=== PATIENT | female | born 1935 | race Caucasian/White ===

== ENCOUNTER → 2020-10-27 09:49 | Outpatient (CLI) | payer MEDICARE, OTHER, SELFPAY ==
--- NOTE | 2020-10-27 09:55 | RAD_ITS ---
STUDY: AIR-CONTRAST UPPER GI SERIES. REASON FOR EXAM: Female, 85 years old. DYSPHAGIA FLUOROSCOPY TIME (if supplied): ( 55 seconds ) minutes/seconds. 10 images were obtained. TECHNIQUE: The patient ingested barium. Multiple images of the esophagus, stomach and duodenum were obtained. COMPARISON: None. FINDINGS: The esophagus is unremarkable. There is no evidence of obstruction. No evidence of gastroesophageal reflux. No evidence of ulceration. The stomach is unremarkable. No mass lesion is seen. There is no evidence of ulceration. The duodenum is unremarkable. RAD/Upper GI Dual Contrast IMPRESSION: Unremarkable air contrast upper GI series. Electronically Signed: Waylon Samayoa MD at 14:21 EST , Service support ,
== END ==
PROVIDERS: PCP Family Medicine; Referring Provider Nurse Practitioner Adult Health; Visit Provider Nurse Practitioner Adult Health
DX: K21.9 Gastro-esophageal reflux disease without esophagitis (principal); R13.10 Dysphagia, unspecified
CPT/HCPCS: 74246

== ENCOUNTER 2020-11-19 11:16 | Outpatient (RCR) | payer MEDICARE, OTHER, SELFPAY ==
[2016-09-23 13:23] VITALS: BMI 23.2
== END 2020-11-19 23:59 ==
LOC: IMMUN 11:16
PROVIDERS: PCP Family Medicine; Referring Provider Family Medicine; Visit Provider Family Medicine
DX: Z23 Encounter for immunization (principal)
CPT/HCPCS: 0011A; 0012A

== ENCOUNTER 2021-09-18 08:39 | Emergency (ER) | payer MEDICARE, OTHER, SELFPAY ==
[2021-09-18 08:40] VITALS: BP 165/86; PULSE 80; RESP 16; TEMP 36.1; O2SAT 100; BMI 21.1
--- NOTE | 2021-09-18 09:12 | EDS_ITS ---
HPI History of Present Illness Chief Complaint: General Illness Narrative Narrative: 85-year-old female presenting with cough, congestion, low-grade fevers. She feels fatigued. Patient states this has been ongoing for about 3 days. She denies sick contacts. She was vaccinated with Covid during a vaccine and had both shots. This was in November or December. Patient denies any chest pain. Patient simply wants to be tested for COVID-19. She is interested in the monoclonal antibodies. [facility] Medical History HLD (hyperlipidemia) HTN (hypertension) Home Medications famotidine 20 mg PO BID #28 tablet 07/27/16 [Rx Last Taken Unknown] B-complex with vitamin C 1 ea PO DAILY 09/23/16 [History Last Taken Unknown] amlodipine 5 mg PO DAILY 09/23/16 [History Last Taken Unknown] aspirin 81 mg PO DAILY@0800 09/23/16 [History Last Taken Unknown] calcium carbonate-vitamin D3 1 ea PO DAILY 09/23/16 [History Last Taken Unknown] cholestyramine-aspartame [Cholestyramine Light Packet] 4 g PO DAILY 09/23/16 [History Last Taken Unknown] cinnamon bark 500 mg PO DAILY 09/23/16 [History Last Taken Unknown] coenzyme Q10 [Co Q-10] 100 mg PO DAILY 09/23/16 [History Last Taken Unknown] lorazepam 0.25 mg PO DAILY PRN PRN 09/23/16 [History Last Taken Unknown] losartan-hydrochlorothiazide 1 ea PO DAILY 09/23/16 [History Last Taken Unknown] methylsulfonylmethane [MSM] 1,000 mg PO DAILY 09/23/16 [History Last Taken Unknown] pindolol 5 mg PO BID 09/23/16 [History Last Taken Unknown] red yeast rice 1,200 mg PO DAILY 09/23/16 [History Last Taken Unknown] Allergy/AdvReac Type Severity Reaction Status Date / Time Penicillins Allergy Hives Verified 09/18/21 08:43 Zzwdasw-SEZ-StP Reductase Allergy Pain in Verified 09/18/21 08:43 Inhibitor joints [Yhwgirw-Pnk-Map Reductase Inhibitor] glucosamine AdvReac Other Verified 09/18/21 08:43 Social History Smoking Status: Never smoker ROS ROS ED Constitutional Constitutional ED: Reports chills and fever(s) Eyes Eyes: Denies blurry vision or diplopia ENT ENT ED: Denies rhinorrhea or sore throat Cardiovascular Cardiovascular: Denies chest pain or palpitations Respiratory/Chest Respiratory/Chest: Reports cough and dyspnea Gastrointestinal Gastrointestinal: Denies abdominal pain, nausea or vomiting Genitourinary Genitourinary ED: Denies dysuria or hematuria Musculoskeletal Musculoskeletal: Reports myalgias; Denies arthralgias or neck pain Integumentary Denies Abrasions or rash Neurologic Neurologic: Reports headache(s); Denies paresthesias or weakness EXAM Physical Exam Const Vital Signs: 09/18/21 08:40 09/18/21 08:48 09/18/21 11:06 Temperature 96.9 F L Temperature Source Temporal Pulse Rate 80 75 Respiratory Rate 16 17 Respiratory Effort Normal Non-Labored Respiratory Pattern Normal Blood Pressure 165/86 H Blood Pressure Mean 112 Pulse Ox 100 97 Oxygen Delivery Method Room Air Positive well nourished General Appearance ED: NAD; Negative for pallor HEENT Reports moist mucous membranes Negative for trauma Eyes PERRL and EOMs intact bilaterally Chest Wall inspection of chest normal and palpation of chest normal Resp normal respiratory effort and clear to auscultation bilaterally Cardio regular rate and regular rhythm Neuro oriented x3 and CN's II-XII intact bilaterally Sensorium / Orientation: alert Motor Exam: strength 5/5 throughout Psych mental status grossly normal Skin General Skin Exam: Negative for jaundice or pallor MDM MDM MDM Narrative Medical decision making narrative: 85-year-old female presenting with cough, fever, chills, mild dyspnea. Her vital signs are stable and she is afebrile. Her oxygen is 100% on room air. Respiratory 16. Lungs are clear to auscultation. Patient wants to be tested for Covid. I did do a rapid Covid which was negative. Since this is already been 3 days she is outside treatment for influenza orally test her. I will send for Covid PCR. The patient is amenable to being discharged home and will follow up with the test result. I did verify that the patient's information was correct with registration prior to her discharge so she will receive a text. Impression: 1. Viral syndrome Lab Data Labs: Laboratory Results - last 24 hr 09/18/21 09:54 COVID-19 (HAZEL) Not Detected Discharge Plan Triage Chief Complaint: General Illness ED Provider: Hany Costello Dx/Rx/DC Orders Instructions: Coronavirus Disease 2019 (COVID-19): Caring for Yourself or Others, ED Viral Syndrome (Adult) Prescriptions: No Action famotidine 20 MG tablet 20 mg PO BID Qty: 28 RF: 0 amlodipine 5 MG tablet 5 mg PO DAILY RF: 0 aspirin 81 MG tablet 81 mg PO DAILY@0800 RF: 0 losartan-hydrochlorothiazide 1 EACH tablet 1 ea PO DAILY RF: 0 lorazepam 0.5 MG tablet 0.25 mg PO DAILY PRN PRN (Reason: Anxiety) RF: 0 pindolol 5 MG tablet 5 mg PO BID RF: 0 B-complex with vitamin C 1 EACH tablet 1 ea PO DAILY RF: 0 coenzyme Q10 [Co Q-10] 100 MG capsule 100 mg PO DAILY RF: 0 cholestyramine-aspartame [Cholestyramine Light] 4 GM Powd.Pack 4 g PO DAILY RF: 0 methylsulfonylmethane [MSM] 1,000 MG tablet 1,000 mg PO DAILY RF: 0 cinnamon bark 500 MG capsule 500 mg PO DAILY RF: 0 red yeast rice 600 MG capsule 1,200 mg PO DAILY RF: 0 calcium carbonate-vitamin D3 1 EACH tablet 1 ea PO DAILY RF: 0 Primary Care Provider: Vamsi Ryder Referrals: Vamsi Ryder MD [Primary Care Provider] - Disposition Disposition: Home, Self Care Discharge Date/Time: 09/18/21 11:08
[2021-09-18 11:06] VITALS: PULSE 75; RESP 17; O2SAT 97
== END 2021-09-18 11:08 | disposition home or self-care (01) ==
PROVIDERS: Emergency Provider Student in an Organized Health Care Education/Training Program; PCP Family Medicine
DX: B34.9 Viral infection, unspecified (principal); I10 Essential (primary) hypertension; E78.5 Hyperlipidemia, unspecified; Z79.82 Long term (current) use of aspirin; Z79.899 Other long term (current) drug therapy
CPT/HCPCS: 87426; 87635; 99282; U0005; U0003

== ENCOUNTER 2021-10-28 10:33 | Outpatient (CLI) | payer MEDICARE, OTHER, SELFPAY | END 2021-10-28 23:59 | disposition home or self-care (01) | PROVIDERS: PCP Family Medicine; Referring Provider Ophthalmology; Visit Provider Ophthalmology | DX: H04.123 Dry eye syndrome of bilateral lacrimal glands (principal) | CPT/HCPCS: 36415 ==

== ENCOUNTER 2022-02-15 15:25 | Emergency (ER) | payer MEDICARE, OTHER, SELFPAY ==
[2022-02-15 15:26] VITALS: BP 160/76; PULSE 89; RESP 15; TEMP 36.6; O2SAT 98; BMI 23.6
--- NOTE | 2022-02-15 15:33 | EKG12_ITS ---
Test Reason : NEURO Blood Pressure : / mmHG Vent. Rate : 072 BPM Atrial Rate : 078 BPM P-R Int : 000 ms QRS Dur : 128 ms QT Int : 424 ms P-R-T Axes : 000 -34 088 degrees QTc Int : 464 ms Atrial fibrillation Left axis deviation Left bundle branch block Abnormal ECG Confirmed by MAVEIRCK DUNN, MARQUES ([id number]), social media editor TJ KENNEDY ([id number]) on 02/16/2022 8:44:50 AM Referred By: CINTIA Confirmed By:MARQUES TEMPLE MD
--- NOTE | 2022-02-15 15:33 | CT_ITS ---
STUDY: CT BRAIN WITHOUT CONTRAST REASON FOR EXAM: Female, 86 years old. confusion RADIATION DOSAGE (If Supplied By Facility): CTDIvol = ( 44.99 ) mGy, DLP = ( 796.11 ) mGycm TECHNIQUE: Transaxial CT imaging of the brain was performed without administration of intravenous contrast material. Individualized dose optimization techniques were used for this CT. COMPARISON: No relevant priors. FINDINGS: Normal soft tissue structures. Normal calvarium. There is mild cerebral atrophy with widening of the extra-axial spaces and ventricular dilatation. There are areas of decreased attenuation within the white matter tracts of the supratentorial brain, consistent with microvascular disease changes. Normal basal ganglia and thalami. Normal brainstem. Normal cerebellum. There is no intracranial hemorrhage. There are no findings of an acute ischemic infarction. Normal visualized paranasal sinuses. CT/Brain/Head without Contrast IMPRESSION: Chronic involutional changes of the brain. Electronically Signed: Roland Rodney MD at 16:14 EDT ,
--- NOTE | 2022-02-15 15:35 | CT_ITS ---
STUDY: CT CERVICAL SPINE WITHOUT CONTRAST REASON FOR EXAM: Female, 86 years old. pain RADIATION DOSAGE (If Supplied By Facility): CTDIvol = ( 12.00 ) mGy, DLP = ( 261.82 ) mGycm TECHNIQUE: High resolution transaxial imaging was performed without contrast material. Sagittal and coronal images were reconstructed. Individualized dose optimization techniques were used for this CT. COMPARISON: None FINDINGS: Normal craniovertebral junction. There are degenerative changes of the anterior atlantoaxial articulation. Normal odontoid process. Normal cervical lordosis. Normal vertebral bodies and posterior osseous elements. C2-3: Mild bilateral facet hypertrophy. No spinal stenosis or neural foraminal stenosis. C3-4: Moderate bilateral facet hypertrophy with ankylosis of the facet joints. 2 mm of anterolisthesis of C3 on C4. No central spinal stenosis. C4-5: Mild bilateral facet hypertrophy. No spinal stenosis or neural foraminal stenosis. C5-6: Mild broad disc osteophyte complex with bilateral hypertrophy produces mild spinal stenosis and mild bilateral neural foraminal stenosis. C6-7: Mild broad discussed by complex and bilateral vertebral hypertrophy produces mild spinal stenosis and mild bilateral neural foraminal stenosis. C7-T1: Normal endplates. Normal disc height and morphology. Normal central canal and intervertebral neuroforamina. Normal visualized soft tissue structures. CT/Spine Cervical without Contras IMPRESSION: Multilevel degenerative changes, as described above. Electronically Signed: Roland Rodney MD at 16:20 EDT ,
[2022-02-15 15:40] VITALS: BMI 23.6
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
[2022-02-15 15:46] LABS: Bedside Glucose 98 mg/dL (74-106)
[2022-02-15 15:47] LABS: Absolute Lymphocyte Count 1.82 X10^3/uL (0.83-4.51); Absolute Neutrophil Count 4.7 X10^3/uL (2.0-7.7); Basophil# 0.09 X10^3/uL; Basophil% 1.2 % (0-1); Eosinophil# 0.23 X10^3/uL; Hematocrit 41.1 % (37-47); Hemoglobin 13.7 g/dL (12.0-15.0); Lymphocyte # 1.82 X10^3/ul (0.83-4.51); Mean Corp Hgb Conc 33.3 g/dL (32-36); Mean Corpuscular Hgb 31.1 pg (27.0-32.0); Mean Corpuscular Volume 93.2 fL (81-99); Mean Platelet Vol. 10.1 fl (6.2-12.0); Monocyte# 0.69 X10^3/uL; Monocyte% 9.1 % (0-10); NRBC Flagged by Analyzer 0 % (0-5); Neutrophil # 4.74 X10^3/uL (2.7-7.7); Neutrophil % 62.4 % (47-70); Platelet Count 306 K/mm3 (150-450); RBC Distribution Width CV 12.6 % (11.6-14.6); RBC Distribution Width SD 43.4 fl (35.1-43.9); Red Blood Count 4.41 M/mm3 (4.2-5.4); White Blood Count 7.6 K/mm3 (4.4-11.0)
--- NOTE | 2022-02-15 16:05 | RAD_ITS ---
STUDY: X-RAY CHEST REASON FOR EXAM: Female, 86 years old. sob TECHNIQUE: Single AP portable view of the chest. COMPARISON: None. FINDINGS: The lungs are clear and expanded. There is no demonstrated pleural abnormality. Normal size heart. Normal mediastinum and staci. Normal visualized pulmonary arteries. Normal visualized aortic arch and descending thoracic aorta. Normal visualized thoracic spine. Normal visualized ribs, clavicles, and shoulders. There is no demonstrated abnormality of the visualized soft tissue structures of the upper abdomen. RAD/Chest 1 View (Portable) IMPRESSION: Normal x-ray examination of the chest. Electronically Signed: Roland Rodney MD at 16:32 EDT ,
[2022-02-15 16:07] LABS: Anion Gap 7 (5-15); BUN 23 mg/dL (7-18); BUN/Creat Ratio 28.5 RATIO (10-20); Calcium,Total 9.2 mg/dL (8.5-10.1); Chloride 105 mmol/L (98-107); Creatinine, Serum 0.81 mg/dL (0.55-1.02); EST Glomerular Filtration Rate 72 mL/min (>60); Est Glom Filt Rate - Afr Amer 87 mL/min (>60); Estimated Creatinine Clearance 39.01 ml/min; Glucose 104 mg/dL (74-106); Potassium 3.9 mmol/L (3.5-5.1); Sodium Level 138 mmol/L (136-145); Troponin-I HS < 3 pg/mL (3.0-54.0)
[2022-02-15 16:26] VITALS: BP 153/74; PULSE 72; RESP 16; O2SAT 96
--- NOTE | 2022-02-15 16:49 | CT_ITS ---
We are attempting to reach an attending provider to discuss findings. An addendum with communication details will be sent when the communication is complete. STUDY: CTA HEAD AND NECK WITH CONTRAST REASON FOR EXAM: Female, 86 years old. TIA RADIATION DOSAGE (If Supplied By Facility): CTDIvol = ( 21.47 ) mGy, DLP = ( 493.67 ) mGycm TECHNIQUE: CT angiography was performed with a multi-detector CT scanner. Data acquisition was obtained from the skull base through the vertex following intravenous administration of IV 100mL Isovue-370. MIP images were reconstructed from the axial data set. Post-processing of the angiographic images was performed, with multiplanar reformation and 3D reconstruction. Individualized dose optimization techniques were used for this CT. COMPARISON: No relevant priors. FINDINGS: Normal bilateral petrous carotid arteries. There is calcified plaque formation of the right cavernous carotid artery, without a cross-sectional luminal stenosis. There is calcified plaque formation of the left cavernous carotid artery, without a cross-sectional luminal stenosis. Normal right A1 segments of the anterior cerebral artery. Normal left A1 segments of the anterior cerebral artery. Normal intact anterior communicating artery (ACOM). Normal bilateral A2 segments of the anterior cerebral arteries. Abrupt occlusion of the M1 segment of the right middle cerebral artery consistent with an infarct. Oormal left M1 and M2 segments of the middle cerebral arteries, with a normal M1 bifurcation. Normal right posterior communicating artery (PCOM). 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 Normal bilateral vertebral arteries. Normal basilar artery with a normal basilar bifurcation. The visualized bilateral superior cerebellar (SCA) arteries are normal. Normal bilateral P1, P2 and visualized P3 segments of the posterior cerebral arteries. There is no demonstrated aneurysm of the [place]. There is no demonstrated abnormality of the visualized brain. AORTIC ARCH: Normal visualized aortic arch. Calcified plaque in the origin of the left clavian artery without focal stenosis. RIGHT CAROTID ARTERIES: Normal right common carotid artery (CCA). There is moderate atherosclerotic plaque formation with moderate narrowing of the right carotid bulb. There is mild atherosclerotic plaque formation of the origin of the right internal carotid artery with less than 50% cross sectional diameter stenosis. Normal visualized cervical portion of the right internal carotid artery. Normal origin of the right external carotid artery (ECA). LEFT CAROTID ARTERIES: Normal left common carotid artery (CCA). There is mild atherosclerotic plaque formation with minimal narrowing of the left carotid bulb. There is mild atherosclerotic plaque formation of the origin of the left internal carotid artery with less than 50% cross sectional diameter stenosis. Normal visualized cervical portion of the left internal carotid artery. Normal origin of the left external carotid artery (ECA). VERTEBRAL ARTERIES: Normal bilateral vertebral arteries. CT/CTA Head AND Neck W/ Contrast IMPRESSION: 1. 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 2. Mild (20%) stenosis right carotid stenosis. 3. Mild (40%) stenosis left carotid stenosis. 4. Patent vertebral arteries bilaterally. Electronically Signed: Roland Rodney MD at 17:30 EDT ,
[2022-02-15 17:00] VITALS: BP 150/71; PULSE 78; RESP 17; O2SAT 100
[2022-02-15 17:28] LABS: Bacteria 0 SEEN /hpf (None Seen); Mucous, Urine 0 SEEN /hpf (<or=2+); Red Blood Cells-Urine 0 SEEN /hpf (0-5); Squamous Epithelial Cells - UA 0 SEEN /hpf (5-10); White Blood Cells 0 SEEN /hpf (0-5)
[2022-02-15 17:38] LABS: Color, Urine Yellow (Yellow); Glucose, Dipstick Normal (Normal); Ketone-Dipstick Negative (Negative); Leukocyte Esterase-Dipstick Negative /ul (Negative); Nitrite-Dipstick Negative (Negative); Occult Blood-Urine Negative /ul (Negative); Protein-Dipstick Negative (Negative); Urine Bilirubin Dipstick Negative (Negative); Urine Clarity Clear (Clear); Urine Urobilinogen Normal (Normal); Urine pH 6.5 (5.0 - 8.0)
[2022-02-15 18:00] VITALS: BP 147/85; PULSE 62; RESP 18; O2SAT 98
[2022-02-15 18:43] LABS: International Normalized Ratio 1.1; Prothrombin Time (Protime)PT. 13.7 SECONDS (11.7-14.9)
[2022-02-15 18:44] LABS: Partial Thromboplast Time 27.4 Seconds (24.1-36.2)
[2022-02-15] MEDS: HEPARIN/D5w 25,000 UNITS 25,000 UNITS/250 ML IV.SOLN. 8 UNITS CONT INF (18:46)
== END 2022-02-15 19:46 | disposition short-term general hospital (02) ==
PROVIDERS: Emergency Provider Emergency Medicine; PCP Family Medicine; Visit Provider Emergency Medicine
DX: I63.9 Cerebral infarction, unspecified (principal); I48.91 Unspecified atrial fibrillation; I10 Essential (primary) hypertension; F41.9 Anxiety disorder, unspecified; Z79.899 Other long term (current) drug therapy
CPT/HCPCS: 70450; 70496; 70498; 71045; 72125; 80048; 81001; 82962; 84484; 85025; 85610; 85730; 93005; 96365; 99285; Q9967; A4216

== ENCOUNTER 2022-04-05 16:00 | Outpatient (RCR) | payer MEDICARE, OTHER, SELFPAY ==
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
--- NOTE | 2022-03-01 16:33 | HP.OTPEDEV ---
Patient's Visit Information GIA MERRITT is a 86 year old F, referred to Occupational Therapy by cruzito STEELE . Date of Evaluation: Occupational Therapist: Emma Aguilar, SHUNR/Eboni, CHT Assessment/Problems/Goals - Anticipated Interventions Thank you for the opportunity to evaluate your patient. Please let me know if there are questions or concerns regarding this plan of care. Physician Signature: Date:
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
--- NOTE | 2022-04-06 10:48 | HP.SP.DC_ITS ---
ST Discharge Summary - Discharged: Discharge: GIA MERRITT is an 86-year-old female who was seen for initial cognitive-linguistic evaluation at [facility] on 02/27/22 s/p CVA. Pt attended 9 additional consecutive sessions following initial evaluation to target attention, word retrieval, divergent naming, problem solving/reasoning, med and finance management, and executive functioning. Pt making progress in all target areas when provided with extended processing time. Direct education provided re: additional sessions would be warranted to target cont'd cognitive skills with a focus on medication management and organization tasks. Pt politely expressing she would prefer this be her final appt as she is starting additional treatment with chiropracting. Encouraged Pt to return should she notice changes in cognitive function. Pt provided w/home carry over activities to continue targeting complex executive functioning tasks. Pt discharged from speech therapy caseload on this date, 04/06/22. Thank you for allowing me to participate in the care of your Pt. Will reevaluate at Pt?s request following script from physician.
== END 2022-04-05 19:00 | disposition home or self-care (01) ==
LOC: SP 16:00
PROVIDERS: PCP Family Medicine
DX: I63.411 Cerebral infarction due to embolism of right middle cerebral artery (principal); F80.2 Mixed receptive-expressive language disorder
CPT/HCPCS: 97129; 97130; 97162; 97165

== ENCOUNTER → 2022-05-08 | Outpatient (CLI) | payer MEDICARE, OTHER, SELFPAY ==
[2022-05-08 12:23] LABS: Erythrocyte Sedimentation Rate 9 mm/hr (0-30)
[2022-05-08 12:40] LABS: CRP < 2.90 mg/L (0.0-3.0)
[2022-05-08 13:21] LABS: Vitamin B12 549 pg/mL (211-911)
[2022-05-09 14:59] LABS: ANTINUCLEAR ANTIBODIES DIRECT Negative (Negative)
[2022-05-10 14:28] LABS: CCP IgG Antibodies 6 units (0-19)
== END | disposition home or self-care (01) ==
LOC: BIMLAB 09:36
PROVIDERS: PCP Family Medicine; Visit Provider Internal Medicine
DX: R53.83 Other fatigue (principal); M12.9 Arthropathy, unspecified
CPT/HCPCS: 36415; 82607; 85652; 86038; 86140; 86200; 86225; 86235

== ENCOUNTER → 2022-06-08 | Outpatient (CLI) | payer MEDICARE, OTHER, SELFPAY | END | disposition home or self-care (01) | LOC: LABSPEC 09:24 | PROVIDERS: PCP Internal Medicine; Referring Provider Internal Medicine; Visit Provider Internal Medicine | DX: R05.9 Cough, unspecified (principal) | CPT/HCPCS: 87635; U0003; U0005 ==

== ENCOUNTER → 2022-06-22 | Outpatient (CLI) | payer MEDICARE, OTHER, SELFPAY ==
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
== END | disposition home or self-care (01) ==
LOC: CT 15:06
PROVIDERS: PCP Internal Medicine; Visit Provider Internal Medicine
DX: I63.9 Cerebral infarction, unspecified (principal); I65.23 Occlusion and stenosis of bilateral carotid arteries
CPT/HCPCS: 70450

== ENCOUNTER 2022-07-07 08:09 | Emergency (ER) | payer MEDICARE, OTHER, SELFPAY ==
[2022-07-07 08:15] VITALS: BP 140/89; PULSE 93; RESP 18; TEMP 36.6; O2SAT 97; BMI 21.3
[2022-07-07 08:18] VITALS: BP 140/89; PULSE 87; RESP 16; TEMP 36.6; O2SAT 98
--- NOTE | 2022-07-07 08:22 | EKG12_ITS ---
Test Reason : Blood Pressure : / mmHG Vent. Rate : 084 BPM Atrial Rate : 094 BPM P-R Int : 000 ms QRS Dur : 124 ms QT Int : 400 ms P-R-T Axes : 000 -31 106 degrees QTc Int : 472 ms Atrial fibrillation Left axis deviation Left bundle branch block Abnormal ECG Confirmed by CIARA DUNN, TAYLOR ([id number]), deputy editor in chief TJ KENNEDY ([id number]) on 07/10/2022 9:42:59 AM Referred By: RANI Confirmed By:TAYLOR URBINA MD
--- NOTE | 2022-07-07 08:24 | EX.ED.DYSGE1 ---
HPI History of Present Illness Chief Complaint: Dizziness Detail of Chief Complaint: Dizziness then fell at home. Informant: patient Onset/Context/Timing Onset: Today Context: Sudden Onset Timing: Continuous Current Severity: Mild Maximum Severity: Mild Narrative Narrative: 86-year-old female history of stroke, hypertension and A. fib on Xarelto. Said recently she has had some urinary incontinence but denies dysuria or hematuria. No fever. No nausea or vomiting. Today she was in the kitchen and felt her cat. Says she got lightheaded felt flushed and fell to the floor landing on her buttocks. Denies hitting her head. Said she scooted to the door because she had a med alert to unlock the door. And they came to get her and brought her in the emergency department. She denies any head, neck or back pain. No chest pain or abdominal pain. No recent fever or chills. Prior similar symptoms: No Recent Illness/Hospitalization: No PFSH PFSH Medical History Anxiety Arthritis involving multiple sites CVA (cerebral vascular accident) (02/15/22) Essential hypertension GERD (gastroesophageal reflux disease) HLD (hyperlipidemia) Home Medications losartan 100 mg tablet 100 mg PO DAILY 02/15/22 [History Last Taken Unknown] metoprolol tartrate 25 mg tablet 25 mg PO BID 02/21/22 [History Last Taken Unknown] calcium carbonate 600 mg calcium (1,500 mg) tablet 600 mg PO DAILY 02/22/22 [History Last Taken Unknown] cinnamon bark 500 mg capsule 500 mg PO DAILY 02/22/22 [History Last Taken Unknown] coenzyme Q10 100 mg capsule (Co Q-10) 100 mg PO DAILY 02/22/22 [History Last Taken Unknown] magnesium oxide 400 mg (241.3 mg magnesium) tablet 400 mg PO DAILY 02/22/22 [History Last Taken Unknown] niacin 500 mg tablet 500 mg PO QHS 02/22/22 [History Last Taken Unknown] red yeast rice 600 mg tablet 600 mg PO BID 02/22/22 [History Last Taken Unknown] vitamin B complex 1 tab PO DAILY 02/22/22 [History Last Taken Unknown] autologous serum miscellaneous 03/02/22 [History Last Taken Unknown] fluorometholone 0.1 % eye drops,suspension 1 drp ophthalmic (eye) BID PRN Dry Eyes 03/02/22 [History Last Taken Unknown] rivaroxaban 20 mg tablet (Xarelto) 20 mg PO QPM #90 tabs 05/01/22 [Rx Last Taken Unknown] lorazepam 0.5 mg tablet 0.25 mg PO DAILY PRN anxiety #15 tabs 05/04/22 [Rx Last Taken Unknown] psyllium husk (aspartame) 3.4 gram/5.8 gram oral powder (Metamucil [facility] Fiber) 5.8 g PO DAILY #660 grams 07/05/22 [Rx Last Taken Unknown] amlodipine 5 mg tablet 5 mg PO DAILY 07/07/22 [History Last Taken Unknown] hydrochlorothiazide 25 mg tablet 25 mg PO DAILY 07/07/22 [History Last Taken Unknown] pravastatin 10 mg tablet 10 mg PO DAILY 07/07/22 [History Last Taken Unknown] Allergy/AdvReac Type Severity Reaction Status Date / Time clindamycin Allergy Other Verified 07/07/22 08:10 hyoscyamine Allergy Other Verified 07/07/22 08:10 Penicillins Allergy Hives Verified 07/07/22 08:10 Moszpzx-UJD-YbQ Reductase Allergy Pain in Verified 07/07/22 08:10 Inhibitor joints [Ufituev-Mtx-Dzz Reductase Inhibitor] glucosamine AdvReac Other Verified 07/07/22 08:10 Family History Father Diabetes Hyperlipemia Mother Cancer stomach Surgical History Cataract extraction status Social History household members: none current occupational status: retired 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 Review of Systems ROS Unobtainable: Denies due to encephalopathy Constitutional Constitutional ED: Denies chills or fever(s) Eyes Eyes: Denies blurry vision ENT ENT ED: Denies ear pain Cardiovascular Cardiovascular: Denies chest pain Respiratory/Chest Respiratory/Chest: Denies cough Gastrointestinal Gastrointestinal: Denies abdominal pain, diarrhea, melena, nausea or vomiting Genitourinary Genitourinary ED: Reports urinary frequency; Denies dysuria or hematuria Musculoskeletal Musculoskeletal: Denies arthralgias Integumentary Denies abscess Neurologic Neurologic: Denies headache(s) Psychiatric Psychiatric: Denies anxiety Endocrine Endocrinology: Denies cold intolerance Hematologic/Lymphatic Hematologic/Lymphatic: Reports none Allergic/Immunologic Allergic/Immunologic ED: Denies mouth swelling or tongue swelling EXAM Physical Exam Narrative Exam Narrative: 86-year-old female no acute distress. Vital signs stable afebrile. H EENT exam unremarkable atraumatic. Pupils round reactive light. Moist mucous membranes. Neck nontender. Trachea midline. Lungs clear to auscultation bilaterally. Heart irregularly irregular rate about 90 consistent with A. fib. Chest wall nontender. Abdomen soft nontender. Pelvic girdle intact. Moving all 4 extremities. Nontender no deformity. Back nontender no signs of trauma. Neurologically she is awake and alert with no focal motor deficits. Answering questions and following commands. Family at bedside. Const Vital Signs: 07/07/22 08:15 07/07/22 08:18 07/07/22 08:23 Temperature 97.9 F 97.9 F Temperature Source Oral Temporal Pulse Rate 93 87 Respiratory Rate 18 16 Respiratory Effort Normal Non-Labored Respiratory Pattern Normal Blood Pressure 140/89 H 140/89 H Blood Pressure Mean 106 106 Pulse Ox 97 98 Oxygen Delivery Method Room Air Room Air 07/07/22 09:24 Temperature Temperature Source Pulse Rate 77 Respiratory Rate 16 Respiratory Effort Respiratory Pattern Blood Pressure 136/77 H Blood Pressure Mean 96 Pulse Ox 98 Oxygen Delivery Method Room Air Positive well nourished and well developed; Negative for obese, cachectic, contractures or unkempt General Appearance ED: well developed and NAD; Negative for unkempt, cachectic, contractures, cyanotic or diaphoretic Nutritional Appearance: Negative for cachectic or obese HEENT Reports moist mucous membranes; Denies dry mucous membranes Negative for trauma or tenderness Mouth ED: No dry mucous membranes Mouth: No dry mucous membranes Eyes PERRL and EOMs intact bilaterally General Eye ED: Negative for pale conjunctiva or scleral icterus Neck no lymphadenopathy, supple and no JVD General: Negative for tenderness Lymph Lymphatic: Negative for other Chest Wall inspection of chest normal and palpation of chest normal Chest: Negative for other Resp normal respiratory effort and clear to auscultation bilaterally Effort and Inspection: Negative for retractions Auscultation: Negative for rales, rhonchi or wheezes Cardio Negative for regular rate or regular rhythm Rhythm: abnormal rhythm irregularly irregular GI normal to inspection, nondistended, normoactive bowel sounds, non-tender, non-distended and no masses Inspection: Negative for abdominal distention Auscultation: normoactive bowel sounds Palpation: soft; Negative for tender or guarding Back/Spine no CVA tenderness General Back: Negative for CVA tenderness Cervical Spine: Negative for cervical spine tenderness Thoracic Spine / Upper Back: Negative for thoracic spinal tenderness Lumbar Spine / Lower Back: Negative for lumbar spinal tenderness Extremity normal to inspection General Extremety ED: Negative for edema or tenderness General Extremity: Negative for edema Neuro oriented x3 Sensorium / Orientation: alert; Negative for orientation impaired, lethargic or stuporous Motor Exam: strength 5/5 throughout Psych mental status grossly normal Appearance: Negative for unkempt Attitude: No agitated Mood & Affect: Negative for depressed, anxious or tearful Skin no rashes or lesions noted and no wounds Lesions: No lesion noted Rashes: No rashes noted Trauma: Negative for abrasion Wounds: Negative for wounds noted MDM MDM MDM Narrative Medical decision making narrative: 86-year-old female history of prior stroke with chronic A. fib on Xarelto as urinary frequency and incontinence and fell today. Screening labs and urinalysis being obtained along with an x-ray of her pelvis. She did not strike her head. Is nontender without any signs of trauma. Repeat exam patient is doing well. She has been up ambulating to the restroom with the nurse. Her gait is actually well. I went over her test results with her and the family is really nothing to admit her for waiting on the urinalysis. Patient doing well at 11:15 AM will be discharged home. Lab Data Attestation: I reviewed the patient's lab results. Lab results narrative: CBC normal. White count 6.6. H&H 14 and 41. Platelets normal. Electrolytes sodium 131. Potassium 3.4. Gap of 8 normal BUN and creatinine to ten 0.7. Glucose 120. Urinalysis is negative. 2+ bacteria but no white or red cells. No nitrites. Labs: Laboratory Results - last 24 hr 07/07/22 07/07/22 07/07/22 08:35 08:35 10:00 WBC 6.6 RBC 4.51 Hgb 14.0 Hct 41.6 MCV 92.2 MCH 31.0 MCHC 33.7 RDW Std Deviation 40.0 RDW Coeff of [place]ak 11.9 Plt Count 225 MPV 9.6 Immature Gran % (Auto) 0.200 Neut % (Auto) 64.3 Lymph % (Auto) 17.9 L [place] % (Auto) 16.1 H Eos % (Auto) 0.9 Baso % (Auto) 0.6 Absolute Neuts (auto) 4.3 Absolute Lymphs (auto) 1.18 Nucleated RBC % 0 Sodium 131 L Potassium 3.4 L Chloride 94 L Carbon Dioxide 29.0 Anion Gap 8 BUN 10 Creatinine 0.77 Estim Creat Clear Calc 34.64 Est GFR (MDRD) Af Amer 91 Est GFR (MDRD) Non-Af 76 BUN/Creatinine Ratio 13.0 Glucose 120 H Calcium 8.8 Urine Color Yellow Urine Clarity Clear Urine pH 7.0 Ur Specific [place] 1.010 Urine Protein 30 H Urine Glucose (UA) Normal Urine Ketones Negative Urine Occult Blood 25 H Urine Nitrite Negative Urine Bilirubin Negative Urine Urobilinogen Normal Ur Leukocyte Esterase 100 H Urine RBC 0-5 SEEN Urine WBC 0-5 SEEN Ur Squamous Epith Cells 0-5 SEEN Urine Bacteria 2+ Urine Mucus 0 SEEN Radiography Diagnostic Testing: Clinical Impression(s) from Imaging Studies Pelvis X-Ray 07/07/22 08:50 IMPRESSION: Moderate 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 Electronically Signed: Waylon Samayoa MD at 9:07 EDT , Pelvis x-ray, single view, interpreted myself and radiologist shows no acute abnormality. Chronic changes. No fracture. Chronic arthritis. Rhythm Strip Rhythm Strip: A-fib Rate: 84 Ectopy: None EKG Initial EKG: Attestation: I personally reviewed and interpreted this EKG as follows: Interpretation: No Acute Injury Pattern and Atrial Fibrillation Comments: Atrial fibrillation. Rate of 84. Left bundle branch block. No acute signs of ID or ischemia. Discharge Plan Triage Chief Complaint: Dizziness ED Provider: Wilfredo Moyer Dx/Rx/DC Orders Prescriptions: No Action metoprolol tartrate 25 mg tablet 25 mg PO BID niacin 500 mg tablet 500 mg PO QHS coenzyme Q10 [Co Q-10] 100 mg capsule 100 mg PO DAILY vitamin B complex Tablet 1 tab PO DAILY red yeast rice 600 mg tablet 600 mg PO BID Rx Instructions: give with meal/snack cinnamon bark 500 mg capsule 500 mg PO DAILY magnesium oxide 400 mg (241.3 mg magnesium) tablet 400 mg PO DAILY calcium carbonate 600 mg calcium (1,500 mg) tablet 600 mg PO DAILY fluorometholone 0.1 % drops,suspension 1 drp ophthalmic (eye) BID PRN (Reason: Dry Eyes) autologous serum miscellaneous Rx Instructions: 4 times a day in each eye lorazepam 0.5 mg tablet 0.25 mg PO DAILY PRN (Reason: anxiety) Qty: 15 0RF Metamucil [facility] Fiber 3.4 gram/5.8 gram powder 5.8 g PO DAILY Qty: 660 0RF losartan 100 mg tablet 100 mg PO DAILY Label Comments: TAKE 1 TABLET BY MOUTH ONCE DAILY amlodipine 5 mg tablet 5 mg PO DAILY pravastatin 10 mg Tablet 10 mg PO DAILY hydrochlorothiazide 25 mg tablet 25 mg PO DAILY Xarelto 20 mg tablet 20 mg PO QPM Qty: 90 0RF Rx Instructions: must administer with evening meal Primary Care Provider: Deepika Fabian Referrals: Deepika Fabian MD [Primary Care Provider] -
[2022-07-07] MEDS: 0.9% Normal Saline 1,000 ML 250 ML IV (08:41)
[2022-07-07 08:44] LABS: Absolute Lymphocyte Count 1.18 X10^3/uL (0.83-4.51); Absolute Neutrophil Count 4.3 X10^3/uL (2.0-7.7); Basophil# 0.04 X10^3/uL; Basophil% 0.6 % (0-1); Eosinophil# 0.06 X10^3/uL; Eosinophils% 0.9 % (0-5); Hematocrit 41.6 % (37-47); Lymphocyte # 1.18 X10^3/ul (0.83-4.51); Lymphocyte % 17.9 % (19-41); Mean Corp Hgb Conc 33.7 g/dL (32-36); Mean Corpuscular Volume 92.2 fL (81-99); Mean Platelet Vol. 9.6 fl (6.2-12.0); Monocyte# 1.06 X10^3/uL; Monocyte% 16.1 % (0-10); NRBC Flagged by Analyzer 0 % (0-5); Neutrophil # 4.25 X10^3/uL (2.7-7.7); Neutrophil % 64.3 % (47-70); Platelet Count 225 K/mm3 (150-450); RBC Distribution Width CV 11.9 % (11.6-14.6); Red Blood Count 4.51 M/mm3 (4.2-5.4); White Blood Count 6.6 K/mm3 (4.4-11.0)
--- NOTE | 2022-07-07 08:50 | RAD_ITS ---
STUDY: X-RAY - PELVIS REASON FOR EXAM: Female, 86 years old. Pain following a fall. TECHNIQUE: One view of the pelvis was obtained. COMPARISON: None. FINDINGS: Moderate amount of fecal material is seen within the colon. There are multiple calcified phleboliths. Normal bilateral iliac wings, sacroiliac joints and visualized sacrum. Normal visualized bilateral superior and inferior pubic rami. Normal pubic symphysis. Normal ischial tuberosities. Normal visualized right femoral head. There is osteoarthritic spur formation of the right acetabular rim. There is moderate articular joint space narrowing of the right hip. There is a 1.4 cm long corticated bony fragment overlying the greater trochanter of the proximal right femur. This may represent either an old avulsion or calcific bursitis. Normal visualized left femoral head. Normal left acetabulum. There is moderate articular joint space narrowing of the left hip. 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 Electronically Signed: Waylon Samayoa MD at 9:07 EDT ,
[2022-07-07 08:55] LABS: Anion Gap 8 (5-15); BUN 10 mg/dL (7-18); Calcium,Total 8.8 mg/dL (8.5-10.1); Chloride 94 mmol/L (98-107); Creatinine, Serum 0.77 mg/dL (0.55-1.02); EST Glomerular Filtration Rate 76 mL/min (>60); Est Glom Filt Rate - Afr Amer 91 mL/min (>60); Estimated Creatinine Clearance 34.64 ml/min; Glucose 120 mg/dL (74-106); Potassium 3.4 mmol/L (3.5-5.1); Sodium Level 131 mmol/L (136-145)
[2022-07-07 09:24] VITALS: BP 136/77; PULSE 77; RESP 16; O2SAT 98
[2022-07-07 10:09] LABS: Mucous, Urine 0 SEEN /hpf (<or=2+)
[2022-07-07 10:11] LABS: Color, Urine Yellow (Yellow); Glucose, Dipstick Normal (Normal); Ketone-Dipstick Negative (Negative); Leukocyte Esterase-Dipstick 100 /ul (Negative); Nitrite-Dipstick Negative (Negative); Occult Blood-Urine 25 /ul (Negative); Protein-Dipstick 30 mg/dl (Negative); Urine Bilirubin Dipstick Negative (Negative); Urine Clarity Clear (Clear); Urine Urobilinogen Normal (Normal)
[2022-07-07 10:19] LABS: Red Blood Cells-Urine 0-5 SEEN /hpf (0-5); Squamous Epithelial Cells - UA 0-5 SEEN /hpf (5-10); White Blood Cells 0-5 SEEN /hpf (0-5)
[2022-07-07 10:20] LABS: Bacteria 2+ /hpf (None Seen)
[2022-07-07 11:19] VITALS: BP 127/71; PULSE 86; RESP 17; O2SAT 95
== END 2022-07-07 11:32 | disposition home or self-care (01) ==
PROVIDERS: Emergency Provider Emergency Medicine; PCP Internal Medicine; Visit Provider Emergency Medicine
DX: R42 Dizziness and giddiness (principal); I48.20 Chronic atrial fibrillation, unspecified; I10 Essential (primary) hypertension; E78.5 Hyperlipidemia, unspecified; M19.90 Unspecified osteoarthritis, unspecified site; F41.9 Anxiety disorder, unspecified; Z79.01 Long term (current) use of anticoagulants; Z79.899 Other long term (current) drug therapy; Z86.73 Personal history of transient ischemic attack (TIA), and cerebral infarction without residual deficits
CPT/HCPCS: 36415; 72170; 80048; 81001; 85025; 93005; 96360; 96361; 99285; J7030

== ENCOUNTER 2022-11-01 14:17 | Emergency (ER) | payer MEDICARE, OTHER, SELFPAY ==
[2022-11-01 14:19] VITALS: BP 122/68; PULSE 86; RESP 16; TEMP 36.5; O2SAT 95; BMI 19.0
--- NOTE | 2022-11-01 15:08 | EDS_ITS ---
HPI History of Present Illness Chief Complaint: Abn Labs Informant: patient and family Onset/Context/Timing Onset: Weeks (2) Context: Gradual Onset Timing: Continuous Quality: Fatigue Location: Generalized Worsened by: Nothing Relieved by: Nothing Narrative Narrative: Patient presents with hypokalemia that was noticed today. Patient had outpatient labs and was told that she should come to the emergency department because her potassium was 2. Patient states she has been having diarrhea for the past 2 weeks. Patient states it is watery. Patient denies any abdominal pain. Patient denies any nausea or vomiting. Patient states she has been feeling tired over the past couple weeks. Patient denies any fevers or chills. Patient denies any urinary complaints. [facility] Medical History Anxiety Arthritis involving multiple sites CVA (cerebral vascular accident) (02/15/22) Essential hypertension GERD (gastroesophageal reflux disease) HLD (hyperlipidemia) Longstanding persistent atrial fibrillation Home Medications calcium carbonate 600 mg calcium (1,500 mg) tablet 600 mg PO DAILY 02/22/22 [History Last Taken Unknown] cinnamon bark 500 mg capsule 500 mg PO DAILY 02/22/22 [History Last Taken Unknown] coenzyme Q10 100 mg capsule (Co Q-10) 100 mg PO DAILY 02/22/22 [History Last Taken Unknown] magnesium oxide 400 mg (241.3 mg magnesium) tablet 400 mg PO DAILY 02/22/22 [History Last Taken Unknown] niacin 500 mg tablet 500 mg PO QHS 02/22/22 [History Last Taken Unknown] red yeast rice 600 mg tablet 600 mg PO BID 02/22/22 [History Last Taken Unknown] vitamin B complex 1 tab PO DAILY 02/22/22 [History Last Taken Unknown] fluorometholone 0.1 % eye drops,suspension 1 drp ophthalmic (eye) BID PRN Dry Eyes 03/02/22 [History Last Taken Unknown] lorazepam 0.5 mg tablet 0.25 mg PO DAILY PRN anxiety #15 tabs 05/04/22 [Rx Last Taken Unknown] psyllium husk (aspartame) 3.4 gram/5.8 gram oral powder (Metamucil [facility] Fiber) 5.8 g PO DAILY #660 grams 07/05/22 [Rx Last Taken Unknown] mixed vegetables tablet PO 07/12/22 [History Last Taken Unknown] famotidine 20 mg tablet 20 mg PO DAILY PRN 08/23/22 [History Last Taken Unknown] hydrochlorothiazide 25 mg tablet 25 mg PO DAILY #30 tabs 10/03/22 [Rx Last Taken Unknown] losartan 100 mg tablet 100 mg PO DAILY #30 tabs 10/03/22 [Rx Last Taken Unknown] metoprolol tartrate 25 mg tablet 25 mg PO BID #60 tabs 10/03/22 [Rx Last Taken Unknown] potassium chloride 20 mEq tablet,extended release(part/cryst) (Klor-Con M) 20 meq PO DAILY #5 TABLETS 11/01/22 [Rx Last Taken Unknown] rivaroxaban 20 mg tablet (Xarelto) 20 mg PO QPM #90 tabs 11/01/22 [Rx Last Taken Unknown] Allergy/AdvReac Type Severity Reaction Status Date / Time clindamycin Allergy Other Verified 11/01/22 14:24 hyoscyamine Allergy Other Verified 11/01/22 14:24 Penicillins Allergy Hives Verified 11/01/22 14:24 Tudenlf-Ajl-Hit Reductase Allergy Pain in Verified 11/01/22 14:24 Inhibitor joints glucosamine AdvReac Other Verified 11/01/22 14:24 Family History Father Diabetes Hyperlipemia Mother Cancer stomach Surgical History Cataract extraction status Social History household members: none current occupational status: retired 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 pets and animals: Yes pets and animals: cat(s) Smoking Status: Never smoker alcohol intake: current alcohol intake frequency: holidays/special occasions only substance use type: does not use what type of physical activity do you participate in: other details: gardening do you feel safe at home: Yes ROS ROS ED Constitutional Constitutional ED: Denies chills or fever(s) Eyes Eyes: Denies blurry vision or change in vision ENT ENT ED: Denies rhinorrhea or sore throat Cardiovascular Cardiovascular: Denies chest pain or palpitations Respiratory/Chest Respiratory/Chest: Denies cough or dyspnea Gastrointestinal Gastrointestinal: Reports diarrhea; Denies nausea or vomiting Genitourinary Genitourinary ED: Denies dysuria or hematuria Musculoskeletal Musculoskeletal: Reports back pain; Denies neck pain Integumentary Denies abscess or rash Neurologic Neurologic: Denies headache(s) or weakness Allergic/Immunologic Allergic/Immunologic ED: Denies mouth swelling or urticaria EXAM Physical Exam Const Vital Signs: 11/01/22 14:19 Temperature 97.7 F L Temperature Source Temporal Pulse Rate 86 Respiratory Rate 16 Blood Pressure 122/68 H Blood Pressure Mean 86 Pulse Ox 95 Oxygen Delivery Method Room Air Positive well nourished and well developed General Appearance ED: well developed and NAD HEENT Reports moist mucous membranes Neck supple and no JVD Resp normal respiratory effort and clear to auscultation bilaterally Cardio regular rate Rhythm: abnormal rhythm irregularly irregular GI normal to inspection, nondistended, normoactive bowel sounds and non-tender Palpation: soft Extremity normal to inspection General Extremety ED: Negative for edema or tenderness General Extremity: Negative for edema Neuro oriented x3, CN's II-XII intact bilaterally and no sensory deficits noted Sensorium / Orientation: alert Motor Exam: strength 5/5 throughout Psych mental status grossly normal Skin no rashes or lesions noted MDM MDM MDM Narrative Medical decision making narrative: Prior outpatient labs were reviewed. This showed a potassium of 2.4. Patient will be given oral and IV potassium here. Basic metabolic profile will be obtained to assess for electrolyte abnormalities and renal function. We will also obtain serum magnesium level to check for hypomagnesemia as a cause for hypokalemia. CBC will be obtained to check for leukocytosis and anemia. Lab Data Attestation: I reviewed the patient's lab results. Lab results narrative: CBC was reviewed and was within normal limits. Basic metabolic profile was reviewed. Potassium was 2.7. Creatinine was slightly elevated at 1.3 and BUN was 24. Glucose was slightly elevated at 120. Magnesium was normal at 2.3. Labs: Laboratory Results - last 24 hr 11/01/22 11/01/22 15:34 15:34 WBC 6.4 RBC 4.28 Hgb 13.0 Hct 40.2 MCV 93.9 MCH 30.4 MCHC 32.3 RDW Std Deviation 41.5 RDW Coeff of [place] 12.1 Plt Count 392 MPV 9.7 Immature Gran % (Auto) 0.300 Neut % (Auto) 43.8 L Lymph % (Auto) 29.5 [place] % (Auto) 23.8 H Eos % (Auto) 1.7 Baso % (Auto) 0.9 Absolute Neuts (auto) 2.8 Absolute Lymphs (auto) 1.90 Nucleated RBC % 0 Differential Comment SCANNED Sodium 139 Potassium 2.7 L* Chloride 101 Carbon Dioxide 29.0 Anion Gap 9 BUN 24 H Creatinine 1.30 H Estim Creat Clear Calc 23.56 Est GFR (MDRD) Af Amer 50 L Est GFR (MDRD) Non-Af 41 L BUN/Creatinine Ratio 18.5 Glucose 120 H Calcium 8.9 Magnesium 2.3 Treatment and Re-Evaluation Narrative: Patient is feeling better on reevaluation. Patient will be given prescription for oral potassium to take for the next 5 days. Patient was instructed to follow-up with her primary care physician in 5 to 7 days for repeat lab work. Patient was instructed return if worse in any way. Patient and family understood and were agreeable with the plan. All questions were answered. Discharge Plan Triage Chief Complaint: Abn Labs ED Provider: Jin Gibson Dx/Rx/DC Orders Clinical Impression: Acute hypokalemia, Diarrhea Instructions: ED Diarrhea, Unknown Cause, ED Hypokalemia Prescriptions: New potassium chloride [Klor-Con M20] 20 mEq tablet,ER particles/crystals 20 meq PO DAILY Qty: 5 0RF No Action niacin 500 mg tablet 500 mg PO QHS coenzyme Q10 [Co Q-10] 100 mg capsule 100 mg PO DAILY vitamin B complex Tablet 1 tab PO DAILY red yeast rice 600 mg tablet 600 mg PO BID Rx Instructions: give with meal/snack cinnamon bark 500 mg capsule 500 mg PO DAILY magnesium oxide 400 mg (241.3 mg magnesium) tablet 400 mg PO DAILY calcium carbonate 600 mg calcium (1,500 mg) tablet 600 mg PO DAILY fluorometholone 0.1 % drops,suspension 1 drp ophthalmic (eye) BID PRN (Reason: Dry Eyes) lorazepam 0.5 mg tablet 0.25 mg PO DAILY PRN (Reason: anxiety) Qty: 15 0RF Metamucil [facility] Fiber 3.4 gram/5.8 gram powder 5.8 g PO DAILY Qty: 660 0RF mixed vegetables tablet PO famotidine 20 mg tablet 20 mg PO DAILY PRN Xarelto 20 mg tablet 20 mg PO QPM Qty: 90 0RF Rx Instructions: must administer with evening meal hydrochlorothiazide 25 mg tablet 25 mg PO DAILY Qty: 30 3RF losartan 100 mg tablet 100 mg PO DAILY Qty: 30 3RF metoprolol tartrate 25 mg tablet 25 mg PO BID Qty: 60 3RF Primary Care Provider: Deepika Fabian Referrals: Deepika Fabian MD [Primary Care Provider] - 3-5 Days Disposition Disposition: Home, Self Care
[2022-11-01] MEDS: Potassium Chloride Oral Tablet 20 MEQ 40 MEQ PO (15:38)
[2022-11-01] MEDS: Potassium Chloride 10mEq/100mL 10 MEQ/100 ML IV.SOLN. 100 MEQ IV BOLUS ×2 (15:45→16:51)
[2022-11-01 15:48] LABS: Absolute Neutrophil Count 2.8 X10^3/uL (2.0-7.7); Basophil# 0.06 X10^3/uL; Basophil% 0.9 % (0-1); Eosinophil# 0.11 X10^3/uL; Eosinophils% 1.7 % (0-5); Hematocrit 40.2 % (37-47); Lymphocyte % 29.5 % (19-41); Mean Corp Hgb Conc 32.3 g/dL (32-36); Mean Corpuscular Hgb 30.4 pg (27.0-32.0); Mean Corpuscular Volume 93.9 fL (81-99); Mean Platelet Vol. 9.7 fl (6.2-12.0); Monocyte# 1.53 X10^3/uL; Monocyte% 23.8 % (0-10); NRBC Flagged by Analyzer 0 % (0-5); Neutrophil # 2.82 X10^3/uL (2.7-7.7); Neutrophil % 43.8 % (47-70); POSITIVE DIFFERENTIAL YES; Platelet Count 392 K/mm3 (150-450); RBC Distribution Width CV 12.1 % (11.6-14.6); RBC Distribution Width SD 41.5 fl (35.1-43.9); Red Blood Count 4.28 M/mm3 (4.2-5.4); White Blood Count 6.4 K/mm3 (4.4-11.0)
[2022-11-01 15:49] LABS: Differential Indicated SCAN CRITERIA MET
[2022-11-01 16:10] LABS: Differential Comment SCANNED
[2022-11-01 16:23] LABS: Anion Gap 9 (5-15); BUN 24 mg/dL (7-18); BUN/Creat Ratio 18.5 RATIO (10-20); Calcium,Total 8.9 mg/dL (8.5-10.1); Chloride 101 mmol/L (98-107); EST Glomerular Filtration Rate 41 mL/min (>60); Est Glom Filt Rate - Afr Amer 50 mL/min (>60); Estimated Creatinine Clearance 23.56 ml/min; Glucose 120 mg/dL (74-106); Magnesium 2.3 mg/dL (1.6-2.6); Potassium 2.7 mmol/L (3.5-5.1); Sodium Level 139 mmol/L (136-145)
[2022-11-01 17:15] VITALS: BP 117/50; PULSE 86; RESP 18; O2SAT 96
[2022-11-01 18:16] VITALS: BP 117/52; PULSE 81; RESP 20; O2SAT 97
== END 2022-11-01 18:22 | disposition home or self-care (01) ==
PROVIDERS: Emergency Provider Emergency Medicine; PCP Internal Medicine; Visit Provider Emergency Medicine
DX: E87.6 Hypokalemia (principal); I48.11 Longstanding persistent atrial fibrillation; R19.7 Diarrhea, unspecified; E78.5 Hyperlipidemia, unspecified; I10 Essential (primary) hypertension; Z79.899 Other long term (current) drug therapy; Z86.73 Personal history of transient ischemic attack (TIA), and cerebral infarction without residual deficits
CPT/HCPCS: 36415; 80048; 80053; 83735; 83993; 85025; 87329; 87493; 87506; 96365; 96366; 99285; J7040; A4216

== ENCOUNTER → 2022-11-01 | Outpatient (CLI) | payer MEDICARE, OTHER, SELFPAY ==
[2022-11-01 12:16] LABS: Absolute Lymphocyte Count 1.93 X10^3/uL (0.83-4.51); Absolute Neutrophil Count 2.4 X10^3/uL (2.0-7.7); Basophil# 0.06 X10^3/uL; Basophil% 1.1 % (0-1); Eosinophil# 0.08 X10^3/uL; Eosinophils% 1.4 % (0-5); Hematocrit 38.7 % (37-47); Hemoglobin 12.6 g/dL (12.0-15.0); Lymphocyte # 1.93 X10^3/ul (0.83-4.51); Lymphocyte % 34.6 % (19-41); Mean Corp Hgb Conc 32.6 g/dL (32-36); Mean Corpuscular Hgb 30.4 pg (27.0-32.0); Mean Corpuscular Volume 93.3 fL (81-99); Mean Platelet Vol. 10.1 fl (6.2-12.0); Monocyte# 1.14 X10^3/uL; Monocyte% 20.4 % (0-10); NRBC Flagged by Analyzer 0.5 % (0-5); Neutrophil # 2.36 X10^3/uL (2.7-7.7); Neutrophil % 42.3 % (47-70); Platelet Count 423 K/mm3 (150-450); RBC Distribution Width CV 12.1 % (11.6-14.6); RBC Distribution Width SD 41.4 fl (35.1-43.9); Red Blood Count 4.15 M/mm3 (4.2-5.4); White Blood Count 5.6 K/mm3 (4.4-11.0)
[2022-11-01 12:59] LABS: ALB/GLOB Ratio 0.6 RATIO (0.9-2.4); AST(SGOT) 16 U/L (15-37); Alanine Aminotransfer ALT/SGPT 22 U/L (13-56); Albumin, Serum 2.9 g/dL (3.2-5.0); Alkaline Phosphatase 62 U/L (45-117); Anion Gap 7 (5-15); BUN 17 mg/dL (7-18); BUN/Creat Ratio 19.3 RATIO (10-20); Calcium,Total 9.1 mg/dL (8.5-10.1); Chloride 98 mmol/L (98-107); Creatinine, Serum 0.88 mg/dL (0.55-1.02); EST Glomerular Filtration Rate 65 mL/min (>60); Est Glom Filt Rate - Afr Amer 79 mL/min (>60); Globulin 4.5 g/dL (2.2-4.2); Glucose 119 mg/dL (74-106); Magnesium 2.3 mg/dL (1.6-2.6); Potassium 2.4 mmol/L (3.5-5.1); Protein, Total 7.4 g/dL (6.4-8.2); Sodium Level 136 mmol/L (136-145)
[2022-11-02 17:30] LABS: Giardia Lamblia, Stool EIA Negative (Negative)
[2022-11-04 13:25] LABS: Calprotectin, Stool 339 ug/g (0-120)
== END | disposition home or self-care (01) ==
LOC: BIMLAB 09:11
PROVIDERS: PCP Internal Medicine; Referring Provider Internal Medicine; Visit Provider Internal Medicine
DX: R19.7 Diarrhea, unspecified (principal); I48.11 Longstanding persistent atrial fibrillation
CPT/HCPCS: 36415; 80053; 83735; 83993; 85025; 87329; 87493; 87506

== ENCOUNTER 2022-11-04 10:59 | Emergency (ER) | payer MEDICARE, OTHER, SELFPAY ==
[2022-11-04 11:00] VITALS: BP 105/57; PULSE 83; RESP 17; TEMP 36.8; O2SAT 98; BMI 21.7
--- NOTE | 2022-11-04 11:18 | RAD_ITS ---
EXAM: XR RIGHT FOOT COMPLETE, 3 OR MORE VIEWS CLINICAL INDICATION: Right foot pain. TECHNIQUE: Frontal, lateral and oblique views of the right foot. This report was created using [employer] report generation technology. COMPARISON: None. FINDINGS: BONES/JOINTS: Partially threaded metallic screw inside the proximal two thirds of the first metatarsal bone. Pronounced degenerative osteoarthrosis of the MTP joint of the right pigtail. Hypertrophic ossifications behind the first metatarsal head. No acute fracture. No subluxation. Normal alignment. No sclerotic or destructive changes observed. SOFT TISSUES: Unremarkable. No soft tissue swelling or gas. No radiopaque foreign body. RAD/Foot min 3 Views IMPRESSION: 1. No acute findings in the right foot. 2. 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 Electronically Signed: Rex Rivera MD at 12:06 EST ,
--- NOTE | 2022-11-04 11:25 | EX.ED.DYSGE1 ---
HPI History of Present Illness Chief Complaint: Lower Extremity Injury Detail of Chief Complaint: Right foot pain Informant: patient Onset/Context/Timing Onset: Days (3 to 4 days) Context: Gradual Onset Current Severity: Mild Maximum Severity: Moderate Narrative Narrative: Patient presents secondary to right foot pain. She denies any known injury. She states she noticed slight stiffness and pain on Sunday that is progressed throughout the week. Today she is having difficulty walking. She states the pain is across the arch of her foot. She has no known injury. Daughter states that she has been walking on her treadmill quite a bit. [facility] Medical History Anxiety Arthritis involving multiple sites CVA (cerebral vascular accident) (02/15/22) Essential hypertension GERD (gastroesophageal reflux disease) HLD (hyperlipidemia) Longstanding persistent atrial fibrillation Home Medications calcium carbonate 600 mg calcium (1,500 mg) tablet 600 mg PO DAILY 02/22/22 [History Last Taken Unknown] cinnamon bark 500 mg capsule 500 mg PO DAILY 02/22/22 [History Last Taken Unknown] coenzyme Q10 100 mg capsule (Co Q-10) 100 mg PO DAILY 02/22/22 [History Last Taken Unknown] magnesium oxide 400 mg (241.3 mg magnesium) tablet 400 mg PO DAILY 02/22/22 [History Last Taken Unknown] niacin 500 mg tablet 500 mg PO QHS 02/22/22 [History Last Taken Unknown] red yeast rice 600 mg tablet 600 mg PO BID 02/22/22 [History Last Taken Unknown] vitamin B complex 1 tab PO DAILY 02/22/22 [History Last Taken Unknown] fluorometholone 0.1 % eye drops,suspension 1 drp ophthalmic (eye) BID PRN Dry Eyes 03/02/22 [History Last Taken Unknown] lorazepam 0.5 mg tablet 0.25 mg PO DAILY PRN anxiety #15 tabs 05/04/22 [Rx Last Taken Unknown] psyllium husk (aspartame) 3.4 gram/5.8 gram oral powder (Metamucil [facility] Fiber) 5.8 g PO DAILY #660 grams 07/05/22 [Rx Last Taken Unknown] mixed vegetables tablet PO 07/12/22 [History Last Taken Unknown] famotidine 20 mg tablet 20 mg PO DAILY PRN 08/23/22 [History Last Taken Unknown] hydrochlorothiazide 25 mg tablet 25 mg PO DAILY #30 tabs 10/03/22 [Rx Last Taken Unknown] losartan 100 mg tablet 100 mg PO DAILY #30 tabs 10/03/22 [Rx Last Taken Unknown] metoprolol tartrate 25 mg tablet 25 mg PO BID #60 tabs 10/03/22 [Rx Last Taken Unknown] potassium chloride 20 mEq tablet,extended release(part/cryst) (Klor-Con M) 20 meq PO DAILY #5 TABLETS 11/01/22 [Rx Last Taken Unknown] rivaroxaban 20 mg tablet (Xarelto) 20 mg PO QPM #90 tabs 11/01/22 [Rx Last Taken Unknown] prednisone 20 mg tablet 20 mg PO DAILY #4 tabs 11/04/22 [Rx Last Taken Unknown] Allergy/AdvReac Type Severity Reaction Status Date / Time clindamycin Allergy Other Verified 11/04/22 10:59 hyoscyamine Allergy Other Verified 11/04/22 10:59 Penicillins Allergy Hives Verified 11/04/22 10:59 Ghczome-ETV-QdR Reductase Allergy Pain in Verified 11/04/22 10:59 Inhibitor joints [Xnkcmcx-Nuu-Zwd Reductase Inhibitor] glucosamine AdvReac Other Verified 11/04/22 10:59 Family History Father Diabetes Hyperlipemia Mother Cancer stomach Surgical History Cataract extraction status Social History household members: none current occupational status: retired 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 pets and animals: Yes pets and animals: cat(s) Smoking Status: Never smoker alcohol intake: current alcohol intake frequency: holidays/special occasions only substance use type: does not use what type of physical activity do you participate in: other details: gardening do you feel safe at home: Yes ROS ROS ED Constitutional Constitutional ED: Denies chills or fever(s) Eyes Eyes: Denies change in vision or discharge from eye(s) ENT ENT ED: Denies discharge from eye(s), rhinorrhea or sore throat Cardiovascular Cardiovascular: Denies chest pain or palpitations Respiratory/Chest Respiratory/Chest: Denies cough or dyspnea Gastrointestinal Gastrointestinal: Denies abdominal pain, nausea or vomiting Genitourinary Genitourinary ED: Denies dysuria Musculoskeletal Musculoskeletal: Reports extremity pain; Denies back pain Integumentary Denies Abrasions or rash Neurologic Neurologic: Denies headache(s) or weakness Psychiatric Psychiatric: Denies anxiety or depression Allergic/Immunologic Allergic/Immunologic ED: Denies lip swelling or urticaria EXAM Physical Exam Const Vital Signs: 11/04/22 11:00 Temperature 98.2 F Temperature Source Temporal Pulse Rate 83 Respiratory Rate 17 Blood Pressure 105/57 L Blood Pressure Mean 73 Pulse Ox 98 Oxygen Delivery Method Room Air Positive well nourished and well developed General Appearance ED: well developed HEENT Reports moist mucous membranes Eyes EOMs intact bilaterally Chest Wall inspection of chest normal and palpation of chest normal Resp normal respiratory effort and clear to auscultation bilaterally Cardio regular rate and regular rhythm GI normal to inspection, nondistended, normoactive bowel sounds Extremity Extremity Narrative: Patient has reproducible tenderness along the plantar fascia on the plantar surface of her foot. No open wounds or skin changes are noted. She does have pain with dorsiflexion of her toes. Good cap refill and sensation distally. No tenderness at the ankle or calf. Neuro oriented x3 and no sensory deficits noted Motor Exam: strength 5/5 throughout Psych mental status grossly normal Skin no rashes or lesions noted MDM MDM MDM Narrative Medical decision making narrative: Right foot x-rays obtained. Patient given Tylenol for pain. Radiography Diagnostic Testing: Clinical Impression(s) from Imaging Studies Foot X-Ray 11/04/22 11:18 IMPRESSION: 1. No acute findings in the right foot. 2. 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 Electronically Signed: Rex Rivera MD at 12:06 EST , Treatment and Re-Evaluation Narrative: Right foot x-ray per my interpretation reveals no acute fracture. Radiology interpretation is reviewed and agrees. Clinically patient has Planter fasciitis. Ethan wrap is applied to the foot. We discussed appropriate stretching. I will write her a short burst of prednisone, 20 mg tabs that she will take with food only. We discussed risks given her use of anticoagulants and she voices understanding. Discharge Plan Triage Chief Complaint: Lower Extremity Injury ED Provider: Christina Huynh Dx/Rx/DC Orders Clinical Impression: Plantar fasciitis Instructions: ED Plantar Fasciitis Prescriptions: New prednisone 20 mg tablet 20 mg PO DAILY Qty: 4 0RF No Action niacin 500 mg tablet 500 mg PO QHS coenzyme Q10 [Co Q-10] 100 mg capsule 100 mg PO DAILY vitamin B complex Tablet 1 tab PO DAILY red yeast rice 600 mg tablet 600 mg PO BID Rx Instructions: give with meal/snack cinnamon bark 500 mg capsule 500 mg PO DAILY magnesium oxide 400 mg (241.3 mg magnesium) tablet 400 mg PO DAILY calcium carbonate 600 mg calcium (1,500 mg) tablet 600 mg PO DAILY fluorometholone 0.1 % drops,suspension 1 drp ophthalmic (eye) BID PRN (Reason: Dry Eyes) lorazepam 0.5 mg tablet 0.25 mg PO DAILY PRN (Reason: anxiety) Qty: 15 0RF Metamucil [facility] Fiber 3.4 gram/5.8 gram powder 5.8 g PO DAILY Qty: 660 0RF mixed vegetables tablet PO famotidine 20 mg tablet 20 mg PO DAILY PRN Xarelto 20 mg tablet 20 mg PO QPM Qty: 90 0RF Rx Instructions: must administer with evening meal potassium chloride [Klor-Con M20] 20 mEq tablet,ER particles/crystals 20 meq PO DAILY Qty: 5 0RF hydrochlorothiazide 25 mg tablet 25 mg PO DAILY Qty: 30 3RF losartan 100 mg tablet 100 mg PO DAILY Qty: 30 3RF metoprolol tartrate 25 mg tablet 25 mg PO BID Qty: 60 3RF Primary Care Provider: Deepika Fabian Referrals: Deepika Fabian MD [Primary Care Provider] - 1 Week Disposition Disposition: Home, Self Care
[2022-11-04] MEDS: Acetaminophen 500 MG Tablet 1000 MG PO (11:26)
== END 2022-11-04 13:00 | disposition home or self-care (01) ==
PROVIDERS: Emergency Provider Emergency Medicine; PCP Internal Medicine; Visit Provider Emergency Medicine
DX: M72.2 Plantar fascial fibromatosis (principal); Z86.73 Personal history of transient ischemic attack (TIA), and cerebral infarction without residual deficits
CPT/HCPCS: 73630; 99282

== ENCOUNTER 2022-11-10 10:39 | Emergency (ER) | payer MEDICARE, OTHER, SELFPAY ==
[2022-11-10 10:40] VITALS: BP 137/53; PULSE 83; RESP 17; TEMP 36.2; O2SAT 100; BMI 21.7
--- NOTE | 2022-11-10 11:02 | CT_ITS ---
STUDY: CT ABDOMEN AND PELVIS WITH CONTRAST REASON FOR EXAM: Female, 87 years old. 3 week history of diarrhea. Hypertension. RADIATION DOSAGE (If Supplied By Facility): CTDIvol = ( 17.14 ) mGy, DLP = ( 509.42 ) mGycm TECHNIQUE: Transaxial images were obtained from the dome of the diaphragm to the symphysis pubis with oral contrast. Oral and amp; IV Gastrografin and amp; 100mL Isovue-300 was administered. Sagittal and coronal images were reconstructed. Individualized dose optimization techniques were used for this CT. COMPARISON: None. FINDINGS: Minimal increased linear markings at the lung bases suggestive of scarring. Carotid artery calcification. Normal liver. The patient is status post cholecystectomy. Mild degree of central intrahepatic biliary ductal dilatation. Normal spleen. There is evidence of a pancreatic ductal dilatation. The common bile duct is not dilated. Normal bilateral adrenal glands. Normal right kidney. Normal left kidney. Normal visualized stomach. Normal small intestine. A large amount of fecal material is seen in the colon. The appendix is visualized and appears normal. There is diffuse atherosclerotic calcification of the abdominal aorta and its major visceral branches, without a demonstrated aneurysm. Normal inferior vena cava. Normal retroperitoneum. Normal urinary bladder. Normal abdominal wall. There are diffuse degenerative changes of the visualized lumbar spine. Mild degree of loss of height of the superior endplate of the L1 vertebra. Straightening of the normal lumbar lordosis. CT/Abdomen/Pelvis WITH Contrast IMPRESSION: Status post cholecystectomy. Mild degree of the intrahepatic biliary ductal dilatation. Electronically Signed: Waylon Samayoa MD at 13:05 EST ,
--- NOTE | 2022-11-10 11:03 | EX.ED.DYSGE1 ---
HPI History of Present Illness Chief Complaint: Diarrhea Informant: patient and family Onset/Context/Timing Onset: Weeks Narrative Narrative: Patient presents secondary to diarrhea that has been ongoing for the last month. There have been no new medication changes. Patient has had some problems with low potassium and was in last week for an IV potassium infusion. Primary care physician did Giardia and enteric pathogens along with C. difficile that were all negative. Patient was recently seen for plantar fasciitis and put on a short course of prednisone. Family states the diarrhea actually improved while she was on prednisone, but returned once the medication stopped. Primary care physician did not want to start prednisone without having some imaging studies and patient was sent to the ER for labs and CT. Patient has been referred to GI but does not have an appointment until January. She was referred to general surgery but cannot be seen until 20 November. [facility] Medical History Anxiety Arthritis involving multiple sites CVA (cerebral vascular accident) (02/15/22) Essential hypertension GERD (gastroesophageal reflux disease) HLD (hyperlipidemia) Longstanding persistent atrial fibrillation Home Medications calcium carbonate 600 mg calcium (1,500 mg) tablet 600 mg PO DAILY 02/22/22 [History Last Taken Unknown] cinnamon bark 500 mg capsule 500 mg PO DAILY 02/22/22 [History Last Taken Unknown] coenzyme Q10 100 mg capsule (Co Q-10) 100 mg PO DAILY 02/22/22 [History Last Taken Unknown] magnesium oxide 400 mg (241.3 mg magnesium) tablet 400 mg PO DAILY 02/22/22 [History Last Taken Unknown] niacin 500 mg tablet 500 mg PO QHS 02/22/22 [History Last Taken Unknown] red yeast rice 600 mg tablet 600 mg PO BID 02/22/22 [History Last Taken Unknown] vitamin B complex 1 tab PO DAILY 02/22/22 [History Last Taken Unknown] fluorometholone 0.1 % eye drops,suspension 1 drp ophthalmic (eye) BID PRN Dry Eyes 03/02/22 [History Last Taken Unknown] lorazepam 0.5 mg tablet 0.25 mg PO DAILY PRN anxiety #15 tabs 05/04/22 [Rx Last Taken Unknown] famotidine 20 mg tablet 20 mg PO DAILY PRN GERD 08/23/22 [History Last Taken Unknown] hydrochlorothiazide 25 mg tablet 25 mg PO DAILY #30 tabs 10/03/22 [Rx Last Taken Unknown] losartan 100 mg tablet 100 mg PO DAILY #30 tabs 10/03/22 [Rx Last Taken Unknown] metoprolol tartrate 25 mg tablet 25 mg PO BID #60 tabs 10/03/22 [Rx Last Taken Unknown] rivaroxaban 20 mg tablet (Xarelto) 20 mg PO QPM #90 tabs 11/01/22 [Rx Last Taken Unknown] budesonide 6 mg capsule,extended release 6 mg PO DAILY #90 caps 11/10/22 [Rx Last Taken Unknown] omeprazole 20 mg capsule,delayed release 20 mg PO DAILY 8 weeks #56 caps 11/10/22 [Rx Last Taken Unknown] prednisone 10 mg tablet See Rx Instructions .Route .COMPLEX #70 tabs 11/10/22 [Rx Last Taken Unknown] Allergy/AdvReac Type Severity Reaction Status Date / Time clindamycin Allergy Other Verified 11/10/22 10:40 hyoscyamine Allergy Other Verified 11/10/22 10:40 Penicillins Allergy Hives Verified 11/10/22 10:40 Vasgzsg-DRC-XzF Reductase Allergy Pain in Verified 11/10/22 10:40 Inhibitor joints [Zukpxmh-Wbl-Oly Reductase Inhibitor] glucosamine AdvReac Other Verified 11/10/22 10:40 Family History Father Diabetes Hyperlipemia Mother Cancer stomach Surgical History Cataract extraction status Social History household members: none current occupational status: retired 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 pets and animals: Yes pets and animals: cat(s) Smoking Status: Never smoker alcohol intake: current alcohol intake frequency: holidays/special occasions only substance use type: does not use what type of physical activity do you participate in: other details: gardening do you feel safe at home: Yes ROS ROS ED Constitutional Constitutional ED: Denies chills or fever(s) Eyes Eyes: Denies change in vision or discharge from eye(s) ENT ENT ED: Denies discharge from eye(s), rhinorrhea or sore throat Cardiovascular Cardiovascular: Denies chest pain or palpitations Respiratory/Chest Respiratory/Chest: Denies cough or dyspnea Gastrointestinal Gastrointestinal: Reports diarrhea; Denies abdominal pain, nausea or vomiting Genitourinary Genitourinary ED: Denies dysuria Musculoskeletal Musculoskeletal: Denies back pain or extremity pain Integumentary Denies Abrasions or rash Neurologic Neurologic: Denies headache(s) or weakness Psychiatric Psychiatric: Denies anxiety or depression Allergic/Immunologic Allergic/Immunologic ED: Denies lip swelling or urticaria EXAM Physical Exam Const Vital Signs: 11/10/22 10:40 11/10/22 12:39 Temperature 97.1 F L Temperature Source Temporal Pulse Rate 83 79 Respiratory Rate 17 16 Blood Pressure 137/53 H 136/68 H Blood Pressure Mean 81 90 Pulse Ox 100 96 Oxygen Delivery Method Room Air Room Air Positive well nourished and well developed General Appearance ED: well developed HEENT Reports normocephalic and head/scalp atraumatic Eyes PERRL and EOMs intact bilaterally Neck supple Chest Wall inspection of chest normal and palpation of chest normal Resp normal respiratory effort and clear to auscultation bilaterally Cardio regular rate and regular rhythm GI normal to inspection, nondistended, normoactive bowel sounds Palpation: soft Extremity normal to inspection Neuro oriented x3 and no sensory deficits noted Sensorium / Orientation: alert Motor Exam: strength 5/5 throughout Psych mental status grossly normal Skin no rashes or lesions noted MDM MDM MDM Narrative Medical decision making narrative: Lab work obtained to evaluate for anemia, leukocytosis, electrolyte derangement. Urinalysis obtained. CT scan of the abdomen and pelvis with contrast obtained. Lab Data Attestation: I reviewed the patient's lab results. Labs: Laboratory Results - last 24 hr 11/10/22 11/10/22 11/10/22 11:10 11:10 12:14 WBC 10.0 RBC 3.82 L Hgb 11.7 L Hct 36.5 L MCV 95.5 MCH 30.6 MCHC 32.1 RDW Std Deviation 42.5 RDW Coeff of Palak 12.2 Plt Count 443 MPV 9.1 Immature Gran % (Auto) 1.000 H Neut % (Auto) 62.1 Lymph % (Auto) 23.1 Petroleum % (Auto) 11.8 H Eos % (Auto) 1.4 Baso % (Auto) 0.6 Absolute Neuts (auto) 6.2 Absolute Lymphs (auto) 2.31 Nucleated RBC % 0 Sodium 138 Potassium 2.6 L* Chloride 97 L Carbon Dioxide 31.0 Anion Gap 10 BUN 16 Creatinine 0.94 Estim Creat Clear Calc 33.02 Est GFR (MDRD) Af Amer 72 Est GFR (MDRD) Non-Af 60 BUN/Creatinine Ratio 16.9 Glucose 102 Calcium 8.5 Total Bilirubin 0.30 Direct Bilirubin 0.10 AST 15 ALT 23 Alkaline Phosphatase 63 Total Protein 6.8 Albumin 2.4 L Globulin 4.4 H Urine Color Yellow Urine Clarity Clear Urine pH 7.0 Ur Specific [place] 1.005 Urine Protein Negative Urine Glucose (UA) Normal Urine Ketones Negative Urine Occult Blood Negative Urine Nitrite Negative Urine Bilirubin Negative Urine Urobilinogen Normal Ur Leukocyte Esterase 100 H Urine RBC 0 SEEN Urine WBC 0 SEEN Ur Squamous Epith Cells 0-5 SEEN Ur Renal Epithelial Cell 0-5 SEEN Urine Bacteria 0 SEEN Urine Mucus 0 SEEN Radiography Diagnostic Testing: Clinical Impression(s) from Imaging Studies Abdomen/Pelvis CT 11/10/22 11:02 IMPRESSION: Status post cholecystectomy. Mild degree of the intrahepatic biliary ductal dilatation. Electronically Signed: Waylon Samayoa MD at 13:05 EST , Treatment and Re-Evaluation Narrative: CBC reveals normal white count. Hemoglobin is 11.7. Chemistry studies significant for potassium of 2.6. LFTs unremarkable. Urinalysis reveals no infection. No ketones noted. CT scan with contrast reveals mild degree of intrahepatic biliary ductal dilatation. No bowel abnormalities noted. Patient was ordered 40 mEq of IV potassium replacement. That is currently being infused. I spoke with Dr. Wood as the patient is currently referred to him and has an appointment in January. He states that the patient may have more of a microscopic colitis since she did seem to have a response to steroids. He would like the patient started on budesonide 6 mg daily. We will start the patient on prednisone 40 mg a day for 1 week, and then taper by 10 mg each week. Patient is to follow with her primary care physician regarding hypokalemia. She is to follow-up with Dr. Wood regarding her diarrhea and abdominal findings. Return instructions given. Discharge Plan Triage Chief Complaint: Diarrhea ED Provider: Christina Huynh Dx/Rx/DC Orders Clinical Impression: Hypokalemia, Diarrhea Instructions: ED Diarrhea, Unknown Cause Prescriptions: New omeprazole 20 mg capsule,delayed release(DR/EC) 20 mg PO DAILY 56 Days Qty: 56 0RF budesonide 6 mg capsule, extended release 6 mg PO DAILY Qty: 90 0RF prednisone 10 mg tablet See Rx Instructions .ROUTE .COMPLEX Qty: 70 0RF Rx Instructions: 40mg daily x 1 week, then 30mg daily x 1 week, then 20mg daily x 1 week, then 10mg daily x 1 week No Action niacin 500 mg tablet 500 mg PO QHS coenzyme Q10 [Co Q-10] 100 mg capsule 100 mg PO DAILY vitamin B complex Tablet 1 tab PO DAILY red yeast rice 600 mg tablet 600 mg PO BID Rx Instructions: give with meal/snack cinnamon bark 500 mg capsule 500 mg PO DAILY magnesium oxide 400 mg (241.3 mg magnesium) tablet 400 mg PO DAILY calcium carbonate 600 mg calcium (1,500 mg) tablet 600 mg PO DAILY fluorometholone 0.1 % drops,suspension 1 drp ophthalmic (eye) BID PRN (Reason: Dry Eyes) lorazepam 0.5 mg tablet 0.25 mg PO DAILY PRN (Reason: anxiety) Qty: 15 0RF famotidine 20 mg tablet 20 mg PO DAILY PRN (Reason: GERD) Xarelto 20 mg tablet 20 mg PO QPM Qty: 90 0RF Rx Instructions: must administer with evening meal hydrochlorothiazide 25 mg tablet 25 mg PO DAILY Qty: 30 3RF losartan 100 mg tablet 100 mg PO DAILY Qty: 30 3RF metoprolol tartrate 25 mg tablet 25 mg PO BID Qty: 60 3RF Primary Care Provider: Deepika Fabian Referrals: Deepika Fabian MD [Primary Care Provider] - 3-5 Days Jb Wood DO [Med Staff - Active Staff] - Keep Constance appointment (Call to see if your appointment can be moved sooner.) Disposition Disposition: Home, Self Care
[2022-11-10 11:23] LABS: Absolute Lymphocyte Count 2.31 X10^3/uL (0.83-4.51); Absolute Neutrophil Count 6.2 X10^3/uL (2.0-7.7); Basophil# 0.06 X10^3/uL; Basophil% 0.6 % (0-1); Eosinophil# 0.14 X10^3/uL; Eosinophils% 1.4 % (0-5); Hematocrit 36.5 % (37-47); Hemoglobin 11.7 g/dL (12.0-15.0); Lymphocyte # 2.31 X10^3/ul (0.83-4.51); Lymphocyte % 23.1 % (19-41); Mean Corp Hgb Conc 32.1 g/dL (32-36); Mean Corpuscular Hgb 30.6 pg (27.0-32.0); Mean Corpuscular Volume 95.5 fL (81-99); Mean Platelet Vol. 9.1 fl (6.2-12.0); Monocyte# 1.18 X10^3/uL; Monocyte% 11.8 % (0-10); NRBC Flagged by Analyzer 0 % (0-5); Neutrophil # 6.22 X10^3/uL (2.7-7.7); Neutrophil % 62.1 % (47-70); Platelet Count 443 K/mm3 (150-450); RBC Distribution Width CV 12.2 % (11.6-14.6); RBC Distribution Width SD 42.5 fl (35.1-43.9); Red Blood Count 3.82 M/mm3 (4.2-5.4)
[2022-11-10 11:47] LABS: AST(SGOT) 15 U/L (15-37); Alanine Aminotransfer ALT/SGPT 23 U/L (13-56); Albumin, Serum 2.4 g/dL (3.2-5.0); Alkaline Phosphatase 63 U/L (45-117); Anion Gap 10 (5-15); BUN 16 mg/dL (7-18); BUN/Creat Ratio 16.9 RATIO (10-20); Calcium,Total 8.5 mg/dL (8.5-10.1); Chloride 97 mmol/L (98-107); Creatinine, Serum 0.94 mg/dL (0.55-1.02); EST Glomerular Filtration Rate 60 mL/min (>60); Est Glom Filt Rate - Afr Amer 72 mL/min (>60); Estimated Creatinine Clearance 33.02 ml/min; Globulin 4.4 g/dL (2.2-4.2); Glucose 102 mg/dL (74-106); Potassium 2.6 mmol/L (3.5-5.1); Protein, Total 6.8 g/dL (6.4-8.2); Sodium Level 138 mmol/L (136-145)
[2022-11-10] MEDS: 0.9% Normal Saline 1,000 ML 150 ML IV (11:47)
[2022-11-10 12:18] LABS: Bacteria 0 SEEN /hpf (None Seen); Mucous, Urine 0 SEEN /hpf (<or=2+); Red Blood Cells-Urine 0 SEEN /hpf (0-5); White Blood Cells 0 SEEN /hpf (0-5)
[2022-11-10 12:20] LABS: Color, Urine Yellow (Yellow); Glucose, Dipstick Normal (Normal); Ketone-Dipstick Negative (Negative); Leukocyte Esterase-Dipstick 100 /ul (Negative); Nitrite-Dipstick Negative (Negative); Occult Blood-Urine Negative /ul (Negative); Protein-Dipstick Negative (Negative); Specific Gravity, Urine 1.005 (1.002-1.030); Urine Bilirubin Dipstick Negative (Negative); Urine Clarity Clear (Clear); Urine Urobilinogen Normal (Normal)
[2022-11-10 12:36] LABS: Renal Epithelial Cells 0-5 SEEN /hpf (0-5); Squamous Epithelial Cells - UA 0-5 SEEN /hpf (5-10)
[2022-11-10 12:39] VITALS: BP 136/68; PULSE 79; RESP 16; O2SAT 96
[2022-11-10] MEDS: Potassium Chloride 10mEq/100mL 10 MEQ/100 ML IV.SOLN. 100 MEQ IV BOLUS ×4 (12:55→16:16)
[2022-11-10] MEDS: predniSONE 20 MG Tablet 40 MG PO (15:24)
[2022-11-10] MEDS: Pantoprazole Sodium 20 MG Tablet PO (15:24)
[2022-11-10 15:25] VITALS: BP 139/70; PULSE 92; RESP 21
[2022-11-10] MEDS: Budesonide 3 MG CAPSULE.EC 6 MG PO (16:47)
[2022-11-10 16:48] VITALS: BP 119/68; PULSE 83; RESP 17
== END 2022-11-10 17:35 | disposition home or self-care (01) ==
PROVIDERS: Emergency Provider Emergency Medicine; PCP Internal Medicine; Visit Provider Emergency Medicine
DX: E87.6 Hypokalemia (principal); I48.19 Other persistent atrial fibrillation; R19.7 Diarrhea, unspecified; I10 Essential (primary) hypertension; F41.9 Anxiety disorder, unspecified; K21.9 Gastro-esophageal reflux disease without esophagitis; Z86.73 Personal history of transient ischemic attack (TIA), and cerebral infarction without residual deficits; Z79.899 Other long term (current) drug therapy; Z79.01 Long term (current) use of anticoagulants
CPT/HCPCS: 74177; 80048; 80076; 81001; 85025; 96365; 96366; 99283; J7030; Q9967; A4216

== ENCOUNTER 2022-11-13 14:47 | Outpatient (CLI) | payer MEDICARE, OTHER, SELFPAY ==
[2022-11-13 16:39] LABS: Vitamin D,25 Hydroxy 24.5 ng/mL
[2022-11-13 16:50] LABS: ALB/GLOB Ratio 0.6 RATIO (0.9-2.4); AST(SGOT) 26 U/L (15-37); Alanine Aminotransfer ALT/SGPT 36 U/L (13-56); Albumin, Serum 2.8 g/dL (3.2-5.0); Alkaline Phosphatase 71 U/L (45-117); Anion Gap 9 (5-15); BUN 15 mg/dL (7-18); BUN/Creat Ratio 18.9 RATIO (10-20); Calcium,Total 9.3 mg/dL (8.5-10.1); Chloride 98 mmol/L (98-107); Creatinine, Serum 0.79 mg/dL (0.55-1.02); EST Glomerular Filtration Rate 73 mL/min (>60); Est Glom Filt Rate - Afr Amer 89 mL/min (>60); Globulin 4.7 g/dL (2.2-4.2); Glucose 161 mg/dL (74-106); Protein, Total 7.5 g/dL (6.4-8.2); Sodium Level 137 mmol/L (136-145)
[2022-11-15 15:08] LABS: Endomysial Antibody IgA Negative (Negative)
[2022-11-16 20:04] LABS: Immunoglobulin A 227 mg/dL (64-422); t-Transglutaminase IgA <2 U/mL (0-3)
== END 2022-11-13 23:59 | disposition home or self-care (01) ==
LOC: BIMLAB 14:48
PROVIDERS: PCP Internal Medicine; Referring Provider Internal Medicine; Visit Provider Internal Medicine
DX: R19.7 Diarrhea, unspecified (principal); E87.6 Hypokalemia; D64.9 Anemia, unspecified
CPT/HCPCS: 36415; 80053; 82306; 82784; 83516; 86255

== ENCOUNTER → 2022-12-08 | Outpatient (CLI) | payer MEDICARE, OTHER, SELFPAY ==
[2022-12-08 16:42] LABS: Absolute Neutrophil Count 6.4 X10^3/uL (2.0-7.7); Basophil# 0.05 X10^3/uL; Basophil% 0.6 % (0-1); Eosinophil# 0.03 X10^3/uL; Eosinophils% 0.4 % (0-5); Hematocrit 38.4 % (37-47); Hemoglobin 12.3 g/dL (12.0-15.0); Lymphocyte % 12.4 % (19-41); Mean Corpuscular Hgb 30.6 pg (27.0-32.0); Mean Corpuscular Volume 95.5 fL (81-99); Monocyte# 0.55 X10^3/uL; Monocyte% 6.8 % (0-10); NRBC Flagged by Analyzer 0 % (0-5); Neutrophil # 6.38 X10^3/uL (2.7-7.7); Neutrophil % 79.3 % (47-70); Platelet Count 392 K/mm3 (150-450); RBC Distribution Width CV 13.2 % (11.6-14.6); RBC Distribution Width SD 46.3 fl (35.1-43.9); Red Blood Count 4.02 M/mm3 (4.2-5.4); White Blood Count 8.1 K/mm3 (4.4-11.0)
[2022-12-08 17:20] LABS: ALB/GLOB Ratio 0.7 RATIO (0.9-2.4); AST(SGOT) 12 U/L (15-37); Alanine Aminotransfer ALT/SGPT 21 U/L (13-56); Albumin, Serum 2.9 g/dL (3.2-5.0); Alkaline Phosphatase 65 U/L (45-117); Anion Gap 9 (5-15); BUN 12 mg/dL (7-18); BUN/Creat Ratio 18.8 RATIO (10-20); CRP 3.82 mg/L (0.0-3.0); Calcium,Total 8.8 mg/dL (8.5-10.1); Chloride 96 mmol/L (98-107); Creatinine, Serum 0.64 mg/dL (0.55-1.02); EST Glomerular Filtration Rate 94 mL/min (>60); Est Glom Filt Rate - Afr Amer 114 mL/min (>60); Globulin 3.9 g/dL (2.2-4.2); Glucose 119 mg/dL (74-106); LDH 185 U/L (84-246); Potassium 3.2 mmol/L (3.5-5.1); Protein, Total 6.8 g/dL (6.4-8.2); Sodium Level 135 mmol/L (136-145)
[2022-12-08 18:37] LABS: Erythrocyte Sedimentation Rate 25 mm/hr (0-30)
[2022-12-11 12:08] LABS: Anti-Centromere B Ab <0.2 AI (0.0-0.9); Anti-Chromatin <0.2 AI (0.0-0.9); Anti-Jo <0.2 AI (0.0-0.9); Anti-Scleroderma-70 AB <0.2 AI (0.0-0.9); RNP Ab <0.2 AI (0.0-0.9); SJOGREN'S Anti-SS-A test < 0.2 AI (0.0-0.9); SJOGREN'S Anti-SS-B test < 0.2 AI (0.0-0.9); Smith Ab <0.2 AI (0.0-0.9)
[2022-12-11 15:08] LABS: Endomysial Antibody IgA Negative (Negative)
[2022-12-11 18:50] LABS: Anti-dsDNA Ab <1 IU/mL (0-9)
[2022-12-11 19:02] LABS: Immunoglobulin A 210 mg/dL (64-422); t-Transglutaminase IgA <2 U/mL (0-3)
[2022-12-14 00:07] LABS: Albumin 3.2 g/dL (2.9-4.4); Alpha-1-Globulins 0.3 g/dL (0.0-0.4); Alpha-2-Globulins 1.1 g/dL (0.4-1.0); Cytoplasmic Ab (C-ANCA) <1:20 titer (Neg:<1:20); Gamma Globulin 0.8 g/dL (0.4-1.8); Immunoglobulin A 202 mg/dL (64-422); Immunoglobulin E 19 IU/mL (6-495); Immunoglobulin G 819 mg/dL (586-1602); Immunoglobulin M 71 mg/dL (26-217); PROEL- TOTAL PROTEIN 6.5 g/dL (6.0-8.5)
[2022-12-14 17:20] LABS: Perinuclear Ab (P-ANCA) <1:20 titer (Neg:<1:20)
== END | disposition home or self-care (01) ==
LOC: LAB 14:21
PROVIDERS: PCP Internal Medicine; Visit Provider Internal Medicine Gastroenterology
DX: R19.7 Diarrhea, unspecified (principal); I48.11 Longstanding persistent atrial fibrillation
CPT/HCPCS: 36415; 80053; 82784; 82785; 83516; 83615; 84165; 85025; 85652; 86140; 86225; 86235; 86255; 86256; 86334

== ENCOUNTER → 2022-12-11 | Outpatient (CLI) | payer MEDICARE, OTHER, SELFPAY ==
[2022-12-15 08:28] LABS: Pancreatic Elastase, Fecal 390 (>200)
[2022-12-19 10:09] LABS: Calprotectin, Stool 526 ug/g (0-120); Fats, Neutral Normal (.); Fats, Total Normal (.)
== END | disposition home or self-care (01) ==
LOC: LABSPEC 15:46
PROVIDERS: PCP Internal Medicine; Visit Provider Internal Medicine Gastroenterology
DX: K58.0 Irritable bowel syndrome with diarrhea (principal); R19.7 Diarrhea, unspecified
CPT/HCPCS: 82653; 82705; 83630; 83993; 87493; 87506

== ENCOUNTER 2023-02-08 10:30 | Inpatient (IN) | payer MEDICARE, OTHER, SELFPAY ==
[2023-02-08] VITALS (7 sets, daily range): BP systolic 113–141; BP diastolic 46–64; PULSE 88–104; RESP 14–18; TEMP 36.4–37.1; O2SAT 95–99; BMI 21.4
--- NOTE | 2023-02-08 10:51 | ED.VIS.GI ---
HPI HPI - GI History of Present Illness Chief Complaint: Diarrhea Informant: patient and family Narrative Narrative: History is from patient and daughter. Patient complains of returning diarrhea and increasing pain in her right foot more than the left. The patient started with diarrhea in October. She was seen in the ER. She was started on a prednisone taper and also budesonide tablets which she is still taking. Prednisone was over before her visit with Dr. Wood in early December. Stool studies were sent off but they are not familiar with the results. They have follow-up in March. She states that yesterday she had 1 softer bowel movement and today she had another 1. These were large diarrhea but there is still some structure to the stool. It was not watery diarrhea as it had been. No blood was seen. It was not black. She is not having abdominal pain or fevers. She is not having nausea or vomiting. Although she does not eat a lot she has still been eating and drinking. Patient was also on doxycycline prescribed in 01 January for a skin infection of a mole on her back. The infection is better. Patient has never had C. difficile colitis. The daughter states that her diarrhea had an odor to it but it was not anything that she thought of is outside of normal. Note that she does live alone. Patient also has been having problems with planter fasciitis for months. When she was on prednisone for the diarrhea and this helped the foot pain but its been coming back. The right one is bothering her more than the left. It is getting to the point where she is having trouble walking. She has a history of significant diffuse osteoarthritis. No trauma to the area. No fevers. Its not painful when she is just sitting in bed. [facility] Medical History Abrasion of right upper back excluding scapular region Anxiety Arthritis involving multiple sites Cellulitis of mid back region CVA (cerebral vascular accident) (02/15/22) Essential hypertension GERD (gastroesophageal reflux disease) HLD (hyperlipidemia) Longstanding persistent atrial fibrillation Home Medications calcium carbonate 600 mg calcium (1,500 mg) tablet 600 mg PO DAILY 02/22/22 [History Last Taken Unknown] cinnamon bark 500 mg capsule 500 mg PO DAILY 02/22/22 [History Last Taken Unknown] coenzyme Q10 100 mg capsule (Co Q-10) 100 mg PO DAILY 02/22/22 [History Last Taken Unknown] magnesium oxide 400 mg (241.3 mg magnesium) tablet 400 mg PO DAILY 02/22/22 [History Last Taken Unknown] niacin 500 mg tablet 500 mg PO QHS 02/22/22 [History Last Taken Unknown] red yeast rice 600 mg tablet 600 mg PO BID 02/22/22 [History Last Taken Unknown] vitamin B complex 1 tab PO DAILY 02/22/22 [History Last Taken Unknown] fluorometholone 0.1 % eye drops,suspension 1 drp ophthalmic (eye) BID PRN Dry Eyes 03/02/22 [History Last Taken Unknown] lorazepam 0.5 mg tablet 0.25 mg PO DAILY PRN anxiety #15 tabs 05/04/22 [Rx Last Taken Unknown] famotidine 20 mg tablet 20 mg PO DAILY PRN GERD 08/23/22 [History Last Taken Unknown] hydrochlorothiazide 25 mg tablet 25 mg PO DAILY #30 tabs 10/03/22 [Rx Last Taken Unknown] losartan 100 mg tablet 100 mg PO DAILY #30 tabs 10/03/22 [Rx Last Taken Unknown] metoprolol tartrate 25 mg tablet 25 mg PO BID #60 tabs 10/03/22 [Rx Last Taken Unknown] omeprazole 20 mg capsule,delayed release 20 mg PO DAILY 8 weeks #56 caps 11/10/22 [Rx Last Taken Unknown] prednisone 10 mg tablet See Rx Instructions .Route .COMPLEX #70 tabs 11/10/22 [Rx Last Taken Unknown] budesonide 3 mg capsule,delayed,extended release 6 mg PO DAILY #60 ea 12/13/22 [Rx Last Taken Unknown] doxycycline monohydrate 100 mg capsule 100 mg PO BID #20 caps 01/01/23 [Rx Last Taken Unknown] rivaroxaban 20 mg tablet (Xarelto) 20 mg PO QPM #90 tabs 01/26/23 [Rx Last Taken Unknown] Allergy/AdvReac Type Severity Reaction Status Date / Time clindamycin Allergy Other Verified 02/08/23 10:32 hyoscyamine Allergy Other Verified 02/08/23 10:32 Penicillins Allergy Hives Verified 02/08/23 10:32 Asmijll-FPL-RtC Reductase Allergy Pain in Verified 02/08/23 10:32 Inhibitor joints [Zjqydti-Iwu-Ysu Reductase Inhibitor] glucosamine AdvReac Other Verified 02/08/23 10:32 Family History Father Diabetes Hyperlipemia Mother Cancer stomach Brother Parkinson's disease Surgical History Cataract extraction status Social History household members: none current occupational status: retired 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 [employer] pets and animals: Yes pets and animals: cat(s) Smoking Status: Never smoker alcohol intake: current alcohol intake frequency: holidays/special occasions only substance use type: does not use what type of physical activity do you participate in: other details: gardening do you feel safe at home: Yes ROS ROS ED Constitutional Constitutional ED: Denies fever(s) ENT ENT ED: Denies rhinorrhea Cardiovascular Cardiovascular: Denies chest pain or palpitations Respiratory/Chest Respiratory/Chest: Denies cough or dyspnea Gastrointestinal Gastrointestinal: Reports diarrhea; Denies abdominal pain, nausea or vomiting Musculoskeletal Musculoskeletal: Reports arthralgias; Denies myalgias Integumentary Denies rash Neurologic Neurologic: Denies headache(s) Hematologic/Lymphatic Hematologic/Lymphatic: Reports easy bleeding and easy bruising Allergic/Immunologic Allergic/Immunologic ED: Denies urticaria EXAM Physical Exam Narrative Exam Narrative: CONSTITUTIONAL: Patient is nontoxic in appearance. The patient looks comfortable. HEENT: No notable trauma. Mucous membranes mildly dry. No sinus tenderness. EYES: No conjunctival injection. No icterus. CARDIOVASCULAR: Regular rate. Regular rhythm. No notable murmur. No JVD. RESPIRATORY: No respiratory distress. Breathing is unlabored. No wheezes. GASTROINTESTINAL: Abdomen is flat and not distended. Bowel sounds are normal do not sound increased. No tenderness. No guarding. No rebound. No palpable mass. GENITOURINARY: No tenderness over the bladder. MUSCULOSKELETAL: Atraumatic. No peripheral edema. Patient's right ankle does seem to have a little bit of swelling. But it is not red or warm. I can move it passively without any pain. I do not think this is infected at all. NEUROLOGICAL: Patient is alert and appropriate. No focal deficit noted. Daughter is a better informant for details. SKIN: No noted rashes. No diaphoresis. PSYCHIATRIC: Patient is calm. Mood is appropriate. Const Vital Signs: 02/08/23 10:32 Temperature 98 F Temperature Source Temporal Pulse Rate 104 H Respiratory Rate 14 Blood Pressure 141/64 H Blood Pressure Mean 89 MDM MDM MDM Narrative Medical decision making narrative: Patient CBC shows no marked abnormalities. Electrolytes does show low potassium. She has had this problem off and on. I did replace this orally. She has slightly high BUN to creatinine ratio showing some mild dehydration and she was given some IV fluids. Liver function test showed no marked abnormalities. Urinalysis does not show any convincing signs of infection. My independent interpretation of her 3 view right ankle films show some soft tissue swelling left, osteopenia and mild arthritis. Final reading is similar. My concern with this patient is her overall weakness. She states she has fallen before when she gets diarrhea. She has a cane and a walker but has trouble using and getting around the house even with those. She is on Xarelto. This puts her at higher risk if she falls. Patient states she just feels too weak to go home. I think this is a combination of her age and chronic illness, dehydration and the diarrhea wearing her out, and it is hard for her to walk because of her foot pain. I will start prednisone as she has responded both from her bowel issues and the foot with this medication. It is thought that she may have either lymphocytic colitis or collagenous colitis when I reviewed an outpatient report by gastroenterology. I discussed the case with hospitalist and the patient will be admitted due to the complex and interconnected risks as above. Lab Data Attestation: I reviewed the patient's lab results. Labs: Laboratory Results - last 24 hr 02/08/23 02/08/23 02/08/23 11:00 11:00 12:34 WBC 10.1 RBC 3.85 L Hgb 12.0 Hct 36.9 L MCV 95.8 MCH 31.2 MCHC 32.5 RDW Std Deviation 42.5 RDW Coeff of Palak 12.2 Plt Count 493 H MPV 8.8 Immature Gran % (Auto) 0.300 Neut % (Auto) 70.9 H Lymph % (Auto) 14.4 L [place] % (Auto) 12.7 H Eos % (Auto) 1.0 Baso % (Auto) 0.7 Absolute Neuts (auto) 7.1 Absolute Lymphs (auto) 1.45 Nucleated RBC % 0 Sodium 137 Potassium 2.6 L* Chloride 98 Carbon Dioxide 29.0 Anion Gap 10 BUN 20 H Creatinine 0.93 Estim Creat Clear Calc 31.77 Est GFR (MDRD) Af Amer 74 Est GFR (MDRD) Non-Af 61 BUN/Creatinine Ratio 21.5 H Glucose 125 H Calcium 8.6 Total Bilirubin 0.40 AST 12 L ALT 20 Alkaline Phosphatase 66 Total Protein 6.8 Albumin 2.2 L Globulin 4.6 H Albumin/Globulin Ratio 0.5 L Urine Color Yellow Urine Clarity Clear Urine pH 7.0 Ur Specific [place] 1.010 Urine Protein 30 H Urine Glucose (UA) Normal Urine Ketones 5 H Urine Occult Blood 10 H Urine Nitrite Negative Urine Bilirubin Negative Urine Urobilinogen Normal Ur Leukocyte Esterase 100 H Urine RBC 0 SEEN Urine WBC 5-10 SEEN Ur Squamous Epith Cells 0-5 SEEN Urine Bacteria 0 SEEN Urine Mucus 0 SEEN Radiography Diagnostic Testing: Clinical Impression(s) from Imaging Studies Ankle X-Ray 02/08/23 11:17 IMPRESSION: Soft tissue swelling. Electronically Signed: Waylon Samayoa MD at 11:49 EDT , Management Discussion w/another healthcare provider: Hospitalist Discharge Plan Triage Chief Complaint: Diarrhea ED Provider: Tobi Cedeno Dx/Rx/DC Orders Clinical Impression: Diarrhea, Acute dehydration, Foot pain, right, Inability to walk, Hypokalemia Prescriptions: No Action niacin 500 mg tablet 500 mg PO QHS coenzyme Q10 [Co Q-10] 100 mg capsule 100 mg PO DAILY vitamin B complex Tablet 1 tab PO DAILY red yeast rice 600 mg tablet 600 mg PO BID Rx Instructions: give with meal/snack cinnamon bark 500 mg capsule 500 mg PO DAILY magnesium oxide 400 mg (241.3 mg magnesium) tablet 400 mg PO DAILY calcium carbonate 600 mg calcium (1,500 mg) tablet 600 mg PO DAILY fluorometholone 0.1 % drops,suspension 1 drp ophthalmic (eye) BID PRN (Reason: Dry Eyes) lorazepam 0.5 mg tablet 0.25 mg PO DAILY PRN (Reason: anxiety) Qty: 15 0RF famotidine 20 mg tablet 20 mg PO DAILY PRN (Reason: GERD) doxycycline monohydrate 100 mg capsule 100 mg PO BID Qty: 20 0RF omeprazole 20 mg capsule,delayed release(DR/EC) 20 mg PO DAILY 56 Days Qty: 56 0RF prednisone 10 mg tablet See Rx Instructions .ROUTE .COMPLEX Qty: 70 0RF Rx Instructions: 40mg daily x 1 week, then 30mg daily x 1 week, then 20mg daily x 1 week, then 10mg daily x 1 week hydrochlorothiazide 25 mg tablet 25 mg PO DAILY Qty: 30 3RF losartan 100 mg tablet 100 mg PO DAILY Qty: 30 3RF metoprolol tartrate 25 mg tablet 25 mg PO BID Qty: 60 3RF budesonide 3 mg capsule,delayed,extend.release 6 mg PO DAILY Qty: 60 2RF Xarelto 20 mg tablet 20 mg PO QPM Qty: 90 0RF Rx Instructions: must administer with evening meal Primary Care Provider: Deepika Fabian Referrals: Deepika Fabian MD [Primary Care Provider] - Disposition Disposition: Acute Care Hospital [facility]
[2023-02-08 11:13] LABS: Absolute Lymphocyte Count 1.45 X10^3/uL (0.83-4.51); Absolute Neutrophil Count 7.1 X10^3/uL (2.0-7.7); Basophil# 0.07 X10^3/uL; Basophil% 0.7 % (0-1); Hematocrit 36.9 % (37-47); Lymphocyte # 1.45 X10^3/ul (0.83-4.51); Lymphocyte % 14.4 % (19-41); Mean Corp Hgb Conc 32.5 g/dL (32-36); Mean Corpuscular Hgb 31.2 pg (27.0-32.0); Mean Corpuscular Volume 95.8 fL (81-99); Mean Platelet Vol. 8.8 fl (6.2-12.0); Monocyte# 1.28 X10^3/uL; Monocyte% 12.7 % (0-10); NRBC Flagged by Analyzer 0 % (0-5); Neutrophil # 7.13 X10^3/uL (2.7-7.7); Neutrophil % 70.9 % (47-70); Platelet Count 493 K/mm3 (150-450); RBC Distribution Width CV 12.2 % (11.6-14.6); RBC Distribution Width SD 42.5 fl (35.1-43.9); Red Blood Count 3.85 M/mm3 (4.2-5.4); White Blood Count 10.1 K/mm3 (4.4-11.0)
--- NOTE | 2023-02-08 11:17 | RAD_ITS ---
STUDY: X-RAY - RIGHT ANKLE REASON FOR EXAM: Female, 87 years old. Pain and swelling. No known injury. TECHNIQUE: 3 view(s) of the ankle. COMPARISON: None. FINDINGS: Normal visualized distal tibia and fibula. Normal medial and lateral malleoli. Normal tibiotalar articulation and ankle mortise. Normal visualized talus and calcaneus. The visualized subtalar, talonavicular, calcaneocuboid and tarsal articulations are normal. Soft tissue swelling. RAD/Ankle min 3 Views IMPRESSION: Soft tissue swelling. Electronically Signed: Waylon Samayoa MD at 11:49 EDT ,
[2023-02-08 11:31] LABS: ALB/GLOB Ratio 0.5 RATIO (0.9-2.4); AST(SGOT) 12 U/L (15-37); Alanine Aminotransfer ALT/SGPT 20 U/L (13-56); Albumin, Serum 2.2 g/dL (3.2-5.0); Alkaline Phosphatase 66 U/L (45-117); Anion Gap 10 (5-15); BUN 20 mg/dL (7-18); BUN/Creat Ratio 21.5 RATIO (10-20); Calcium,Total 8.6 mg/dL (8.5-10.1); Chloride 98 mmol/L (98-107); Creatinine, Serum 0.93 mg/dL (0.55-1.02); EST Glomerular Filtration Rate 61 mL/min (>60); Est Glom Filt Rate - Afr Amer 74 mL/min (>60); Estimated Creatinine Clearance 31.77 ml/min; Globulin 4.6 g/dL (2.2-4.2); Glucose 125 mg/dL (74-106); Potassium 2.6 mmol/L (3.5-5.1); Protein, Total 6.8 g/dL (6.4-8.2); Sodium Level 137 mmol/L (136-145)
[2023-02-08] MEDS: Potassium Chloride Oral Tablet 20 MEQ 40 MEQ PO (11:56)
[2023-02-08 12:41] LABS: Bacteria 0 SEEN /hpf (None Seen); Mucous, Urine 0 SEEN /hpf (<or=2+); Red Blood Cells-Urine 0 SEEN /hpf (0-5)
[2023-02-08 12:45] LABS: Color, Urine Yellow (Yellow); Glucose, Dipstick Normal (Normal); Ketone-Dipstick 5 mg/dl (Negative); Leukocyte Esterase-Dipstick 100 /ul (Negative); Nitrite-Dipstick Negative (Negative); Occult Blood-Urine 10 /ul (Negative); Protein-Dipstick 30 mg/dl (Negative); Urine Bilirubin Dipstick Negative (Negative); Urine Clarity Clear (Clear); Urine Urobilinogen Normal (Normal)
--- NOTE | 2023-02-08 12:54 | NURSING ---
DR GER HERNÁNDEZ
[2023-02-08 13:00] LABS: Squamous Epithelial Cells - UA 0-5 SEEN /hpf (5-10); White Blood Cells 5-10 SEEN /hpf (0-5)
--- NOTE | 2023-02-08 13:06 | PCM.HP.STD ---
HPI - General General Date of Admission: 02/08/23 Date of Service: 02/08/23 Chief Complaint: Diarrhea and right ankle pain HPI Narrative GIA MERRITT, is a 87 F with past medical history significant for paroxysmal A-fib with previous CVA, history of chronic diarrhea treated with budesonide who presented with right ankle pain as well as diarrhea. Per patient has history of chronic diarrhea and has been placed on prednisone as well as budesonide. Diarrhea apparently did improve. Patient however did notice recurrence of her diarrhea weeks prior to her admission. She also did have difficulty walking as a result of significant pain and swelling involving the right ankle. Patient was brought to the emergency department by her daughter given her previous history. Work-up in the emergency department demonstrated severe hypokalemia. Imaging studies of the right ankle demonstrated soft tissue swelling no fracture. Patient subsequently admitted to regular nursing floor for further management [facility] Medical History Abrasion of right upper back excluding scapular region Anxiety Arthritis involving multiple sites Cellulitis of mid back region CVA (cerebral vascular accident) (02/15/22) Essential hypertension GERD (gastroesophageal reflux disease) HLD (hyperlipidemia) Longstanding persistent atrial fibrillation Home Medications calcium carbonate 600 mg calcium (1,500 mg) tablet 600 mg PO DAILY 02/22/22 [History Last Taken Unknown] cinnamon bark 500 mg capsule 500 mg PO DAILY 02/22/22 [History Last Taken Unknown] coenzyme Q10 100 mg capsule (Co Q-10) 100 mg PO DAILY 02/22/22 [History Last Taken Unknown] magnesium oxide 400 mg (241.3 mg magnesium) tablet 400 mg PO DAILY 02/22/22 [History Last Taken Unknown] niacin 500 mg tablet 500 mg PO QHS 02/22/22 [History Last Taken Unknown] red yeast rice 600 mg tablet 600 mg PO BID 02/22/22 [History Last Taken Unknown] vitamin B complex 1 tab PO DAILY 02/22/22 [History Last Taken Unknown] fluorometholone 0.1 % eye drops,suspension 1 drp ophthalmic (eye) BID PRN Dry Eyes 03/02/22 [History Last Taken Unknown] lorazepam 0.5 mg tablet 0.25 mg PO DAILY PRN anxiety #15 tabs 05/04/22 [Rx Last Taken Unknown] famotidine 20 mg tablet 20 mg PO DAILY PRN GERD 08/23/22 [History Last Taken Unknown] hydrochlorothiazide 25 mg tablet 25 mg PO DAILY #30 tabs 10/03/22 [Rx Last Taken Unknown] losartan 100 mg tablet 100 mg PO DAILY #30 tabs 10/03/22 [Rx Last Taken Unknown] metoprolol tartrate 25 mg tablet 25 mg PO BID #60 tabs 10/03/22 [Rx Last Taken Unknown] omeprazole 20 mg capsule,delayed release 20 mg PO DAILY 8 weeks #56 caps 11/10/22 [Rx Last Taken Unknown] prednisone 10 mg tablet See Rx Instructions .Route .COMPLEX #70 tabs 11/10/22 [Rx Last Taken Unknown] budesonide 3 mg capsule,delayed,extended release 6 mg PO DAILY #60 ea 12/13/22 [Rx Last Taken Unknown] doxycycline monohydrate 100 mg capsule 100 mg PO BID #20 caps 01/01/23 [Rx Last Taken Unknown] rivaroxaban 20 mg tablet (Xarelto) 20 mg PO QPM #90 tabs 01/26/23 [Rx Last Taken Unknown] Allergy/AdvReac Type Severity Reaction Status Date / Time clindamycin Allergy Other Verified 02/08/23 10:32 hyoscyamine Allergy Other Verified 02/08/23 10:32 Penicillins Allergy Hives Verified 02/08/23 10:32 Kehscfo-NXC-ClQ Reductase Allergy Pain in Verified 02/08/23 10:32 Inhibitor joints [Iwqkocw-Wrq-Siz Reductase Inhibitor] glucosamine AdvReac Other Verified 02/08/23 10:32 Family History Father Diabetes Hyperlipemia Mother Cancer stomach Brother Parkinson's disease Surgical History Cataract extraction status Social History household members: none current occupational status: retired 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 pets and animals: Yes pets and animals: cat(s) Smoking Status: Never smoker alcohol intake: current alcohol intake frequency: holidays/special occasions only substance use type: does not use what type of physical activity do you participate in: other details: gardening do you feel safe at home: Yes ROS ROS Narrative GENERAL: denies fever, chills, night sweats, weight loss, anorexia HEENT: denies headache, sinus congestion, or drainage, dysphagia RESPIRATORY: denies cough, sputum production, shortness of breath, CARDIAC: denies chest pain, palpitations, orthopnea, PND GASTROINTESTINAL: Diarrhea GENITOURINARY: denies dysuria, urgency, frequency, heamaturia EXTREMITY: denies swelling MUSCULOSKELETAL: Right ankle pain and swelling NEUROLOGIC: denies focal numbness, weakness, tingling HEMATOLOGIC: denies easy bruising and/or hemorrhage INTEGUMENT: denies rashes PSYCHIATRIC: denies suicidal or homicidal ideation Vital Signs Vital Signs Vital Signs: 02/08/23 10:32 Temperature 98 F Temperature Source Temporal Pulse Rate 104 H Respiratory Rate 14 Blood Pressure 141/64 H Blood Pressure Mean 89 Weight Weight: 46.6 kg Body Mass Index (BMI) 20.0 Physical Exam Narrative GENERAL: cooperative HEENT: Atraumatic; normocephalic EYES; Anicteric, Normal Conjunctiva NECK; supple, normal thyroid, RESPIRATORY: Diminished to auscultation CARDIOVASCULAR: Regular S1 S2, GI: soft, normoactive bowel sounds, : No Renal angle tenderness; EXTREMITIES: No edema, no clubbing, MUSCULOSKELETAL: Ankle swelling and warm to touch but no erythema NEURO: Awake; no lateralizing signs. SKIN: No Rash PSYCH; Flat affect Results Lab / Micro Data Result Diagrams: 02/08/23 11:00 02/08/23 11:00 Labs: Laboratory Results - last 24 hr 02/08/23 11:00: WBC 10.1, RBC 3.85 L, Hgb 12.0, Hct 36.9 L, MCV 95.8, MCH 31.2, MCHC 32.5, RDW Std Deviation 42.5, RDW Coeff of Palak 12.2, Plt Count 493 H, MPV 8.8, Immature Gran % (Auto) 0.300, Neut % (Auto) 70.9 H, Lymph % (Auto) 14.4 L, [place] % (Auto) 12.7 H, Eos % (Auto) 1.0, Baso % (Auto) 0.7, Absolute Neuts (auto) 7.1, Absolute Lymphs (auto) 1.45, Nucleated RBC % 0 02/08/23 11:00: Sodium 137, Potassium 2.6 L*, Chloride 98, Carbon Dioxide 29.0, Anion Gap 10, BUN 20 H, Creatinine 0.93, Estim Creat Clear Calc 31.77, Est GFR (MDRD) Af Amer 74, Est GFR (MDRD) Non-Af 61, BUN/Creatinine Ratio 21.5 H, Glucose 125 H, Calcium 8.6, Total Bilirubin 0.40, AST 12 L, ALT 20, Alkaline Phosphatase 66, Total Protein 6.8, Albumin 2.2 L, Globulin 4.6 H, Albumin/Globulin Ratio 0.5 L 02/08/23 12:34: Urine Color Yellow, Urine Clarity Clear, Urine pH 7.0, Ur Specific [place] 1.010, Urine Protein 30 H, Urine Glucose (UA) Normal, Urine Ketones 5 H, Urine Occult Blood 10 H, Urine Nitrite Negative, Urine Bilirubin Negative, Urine Urobilinogen Normal, Ur Leukocyte Esterase 100 H, Urine RBC 0 SEEN, Urine WBC 5-10 SEEN, Ur Squamous Epith Cells 0-5 SEEN, Urine Bacteria 0 SEEN, Urine Mucus 0 SEEN Radiology Impression Ankle X-Ray 02/08/23 11:17 IMPRESSION: Soft tissue swelling. Electronically Signed: Waylon Samayoa MD at 11:49 EDT , Assessment & Plan Assessment/Plan (1) Diarrhea: (2) Acute dehydration: (3) Hypokalemia: PLAN: Plan Patient is an 87-year-old lady presenting with diarrhea as well as right ankle swelling 1. Diarrhea ? Patient has some chronicity to her diarrhea has been seen and evaluated by Dr. Wood with GI. 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 Patient has been placed on budesonide plan is to continue 2. Right ankle swelling ? Osteoarthritis versus gout. Imaging studies demonstrated soft tissue swelling. Patient did receive prednisone in the ED plan is to continue as tolerated 3. Paroxysmal A-fib ? Rate controlled on systemic anticoagulation with rivaroxaban plans to continue 4. Severe hypokalemia ? Corrected per protocol repeat labs ordered for monitoring 5. Hypertension - Blood pressure controlled, home medications continued with dose adjustment as needed 6. History of previous right MCA CVA ? With no residual effect 7. Dyslipidemia As per history patient apparently did develop intolerance to statin therapy 8.GERD ? On PPI 9.DVT prophylaxis ?On rivaroxaban Time spent in the patient's overall evaluation,decision-making process, review of diagnostic data, adjustment of management, discussion with other providers, nursing nursing and ancillary staff involved in patient's care documentation, 77 Minutes Advance planning; did discuss with the patient and family regarding advanced directives as well as CODE STATUS. Did explain the various scenarios involved ( FULL CODE, DNR CCA, DNR CCA with no intubation, and DNR CC and what each meant) patient elected to be DNR CCA no intubation. Order was placed. Time spent on discussion 18 minutes. Charges/Coding Visit Charges Inpatient E&M: 87209 Init Hosp L3 Procedures Hospitalists Procedures: 53012 Advncd Care Plan 30 Min
--- NOTE | 2023-02-08 13:20 | NURSING ---
med surg kittoe generalized weakness, diarrhea, inability to ambulate, right foot pain
[2023-02-08 13:56] LABS: Uric Acid 4.5 mg/dL (2.6-6.0)
[2023-02-08] MEDS: Acetaminophen 500 MG Tablet 1000 MG PO ×2 (14:30→21:35)
[2023-02-08] MEDS: KCL 20MEQ in 0.9% NS 20 MEQ/1,000 ML IV.SOLN. 125 MEQ IV ×2 (16:48→22:36)
[2023-02-08] MEDS: Metoprolol Tartrate 25 MG Tablet PO (16:55)
[2023-02-08] MEDS: Rivaroxaban 20 MG Tablet PO (21:34)
[2023-02-08] MEDS: Niacin SA 500 MG Tablet PO (21:35)
--- NOTE | 2023-02-08 22:03 | PCM.HOSP.N ---
Hospitalist Note Patient daughter and patient insistent that she take only 20 mg prednisone only. In the past when attempted 40 mg daily she had mental status changes. Dose decreased to 20 mg daily.
--- NOTE | 2023-02-08 22:06 | NURSING ---
This RN spoke with pt manav Alyson, who informed this RN that in the past Dea had been prescribed 40mg of prednisone for her diarrhea and that it had caused her to become very confused. Subsequently, the dose had been changed to 20mg at that time. Pt daughter Alyson is requesting that 20mg of prednisone be given instead of 40mg. Dr Price updated. Yoly MARCIAL
[2023-02-09] VITALS (7 sets, daily range): BP systolic 118–130; BP diastolic 59–74; PULSE 78–90; RESP 15–18; TEMP 36.4–36.7; O2SAT 96–99
[2023-02-09] MEDS: KCL 20MEQ in 0.9% NS 20 MEQ/1,000 ML IV.SOLN. 125 MEQ IV (05:39)
[2023-02-09] MEDS: Acetaminophen 500 MG Tablet 1000 MG PO ×3 (05:40→20:39)
[2023-02-09 06:59] LABS: Absolute Lymphocyte Count 1.89 X10^3/uL (0.83-4.51); Absolute Neutrophil Count 5.5 X10^3/uL (2.0-7.7); Basophil# 0.06 X10^3/uL; Basophil% 0.7 % (0-1); Eosinophil# 0.16 X10^3/uL; Eosinophils% 1.8 % (0-5); Hematocrit 33.2 % (37-47); Hemoglobin 10.4 g/dL (12.0-15.0); Lymphocyte # 1.89 X10^3/ul (0.83-4.51); Lymphocyte % 21.1 % (19-41); Mean Corp Hgb Conc 31.3 g/dL (32-36); Mean Corpuscular Hgb 30.5 pg (27.0-32.0); Mean Corpuscular Volume 97.4 fL (81-99); Mean Platelet Vol. 9.3 fl (6.2-12.0); Monocyte# 1.29 X10^3/uL; Monocyte% 14.4 % (0-10); NRBC Flagged by Analyzer 0 % (0-5); Neutrophil # 5.54 X10^3/uL (2.7-7.7); Neutrophil % 61.7 % (47-70); Platelet Count 447 K/mm3 (150-450); RBC Distribution Width CV 12.2 % (11.6-14.6); RBC Distribution Width SD 43.8 fl (35.1-43.9); Red Blood Count 3.41 M/mm3 (4.2-5.4)
[2023-02-09 07:37] LABS: Anion Gap 9 (5-15); BUN 12 mg/dL (7-18); BUN/Creat Ratio 18.3 RATIO (10-20); Calcium,Total 8.1 mg/dL (8.5-10.1); Chloride 107 mmol/L (98-107); Creatinine, Serum 0.66 mg/dL (0.55-1.02); EST Glomerular Filtration Rate 91 mL/min (>60); Est Glom Filt Rate - Afr Amer 110 mL/min (>60); Estimated Creatinine Clearance 31.04 ml/min; Glucose 102 mg/dL (74-106); Magnesium 1.9 mg/dL (1.6-2.6); Phosphorus 1.6 mg/dL (2.5-4.9); Potassium 2.9 mmol/L (3.5-5.1); Sodium Level 140 mmol/L (136-145)
--- NOTE | 2023-02-09 07:38 | PCM.PN.HOSP ---
Reason for Visit Reason for Visit: Diagnoses Dehydration (02/08/23) Hypokalemia (02/08/23) Diarrhea, unspecified (02/08/23) Subjective Subjective Patient seen admit to some improvement in her right ankle pain. Frequency of diarrhea also subsided. Requested for PT OT eval Objective Data Objective Data Vital Signs: Vital Signs Temp Pulse Resp BP Pulse Ox O2 Del Method 97.9 F 90 18 118/74 97 Room Air 02/09/23 04:20 02/09/23 04:20 02/09/23 04:20 02/09/23 04:20 02/09/23 04:20 02/09/23 04:20 Oxygen Delivery Method Room Air Weight: 51.4 kg Body Mass Index (BMI) 21.4 Intake & Output: Intake and Output for Last 24 Hours 02/07/23 02/08/23 02/09/23 23:59 23:59 23:59 Intake Total 1645 / 1645 881.25 / 881.25 Balance 1645 / 1645 881.25 / 881.25 Lab / Micro Data Result Diagrams: 02/09/23 06:15 02/09/23 06:15 Labs: Laboratory Results - last 24 hr 02/08/23 11:00: WBC 10.1, RBC 3.85 L, Hgb 12.0, Hct 36.9 L, MCV 95.8, MCH 31.2, MCHC 32.5, RDW Std Deviation 42.5, RDW Coeff of Palak 12.2, Plt Count 493 H, MPV 8.8, Immature Gran % (Auto) 0.300, Neut % (Auto) 70.9 H, Lymph % (Auto) 14.[address] L, [place] % (Auto) 12.7 H, Eos % (Auto) 1.0, Baso % (Auto) 0.7, Absolute Neuts (auto) 7.1, Absolute Lymphs (auto) 1.45, Nucleated RBC % 0 02/08/23 11:00: Sodium 137, Potassium 2.6 L*, Chloride 98, Carbon Dioxide 29.0, Anion Gap 10, BUN 20 H, Creatinine 0.93, Estim Creat Clear Calc 31.77, Est GFR (MDRD) Af Amer 74, Est GFR (MDRD) Non-Af 61, BUN/Creatinine Ratio 21.5 H, Glucose 125 H, Calcium 8.6, Total Bilirubin 0.40, AST 12 L, ALT 20, Alkaline Phosphatase 66, Total Protein 6.8, Albumin 2.2 L, Globulin 4.6 H, Albumin/Globulin Ratio 0.5 L 02/08/23 11:00: Uric Acid 4.5 02/08/23 12:34: Urine Color Yellow, Urine Clarity Clear, Urine pH 7.0, Ur Specific Hooper 1.010, Urine Protein 30 H, Urine Glucose (UA) Normal, Urine Ketones 5 H, Urine Occult Blood 10 H, Urine Nitrite Negative, Urine Bilirubin Negative, Urine Urobilinogen Normal, Ur Leukocyte Esterase 100 H, Urine RBC 0 SEEN, Urine WBC 5-10 SEEN, Ur Squamous Epith Cells 0-5 SEEN, Urine Bacteria 0 SEEN, Urine Mucus 0 SEEN 02/09/23 06:15: WBC 9.0, RBC 3.41 L, Hgb 10.4 L, Hct 33.2 L, MCV 97.4, MCH 30.5, MCHC 31.3 L, RDW Std Deviation 43.8, RDW Coeff of Palak 12.2, Plt Count 447, MPV 9.3, Immature Gran % (Auto) 0.300, Neut % (Auto) 61.7, Lymph % (Auto) 21.1, [place] % (Auto) 14.4 H, Eos % (Auto) 1.8, Baso % (Auto) 0.7, Absolute Neuts (auto) 5.5, Absolute Lymphs (auto) 1.89, Nucleated RBC % 0 02/09/23 06:15: Sodium 140, Potassium 2.9 L, Chloride 107, Carbon Dioxide 24.0, Anion Gap 9, BUN 12, Creatinine 0.66, Estim Creat Clear Calc 31.04, Est GFR (MDRD) Af Amer 110, Est GFR (MDRD) Non-Af 91, BUN/Creatinine Ratio 18.3, Glucose 102, Calcium 8.1 L, Phosphorus 1.6 L, Magnesium 1.9 Micro: Microbiology 02/08/23 16:05 Stool C. difficile DNA Amplification - Final Radiography Diagnostic Testing: Radiology Impression Ankle X-Ray 02/08/23 11:17 IMPRESSION: Soft tissue swelling. Electronically Signed: Waylon Samayoa MD at 11:49 EDT , Physical Exam Narrative GENERAL: cooperative HEENT: Atraumatic; normocephalic EYES; Anicteric, Normal Conjunctiva NECK; supple, normal thyroid, RESPIRATORY: Diminished to auscultation CARDIOVASCULAR: Regular S1 S2, GI: soft, normoactive bowel sounds, : No Renal angle tenderness; EXTREMITIES: No edema, no clubbing, MUSCULOSKELETAL: Swelling involving the right ankle improved NEURO: Awake; no lateralizing signs. SKIN: No Rash PSYCH; Flat affect Assessment & Plan Assessment/Plan (1) Diarrhea: (2) Acute dehydration: (3) Hypokalemia: PLAN: Plan Patient is an 87-year-old lady presenting with diarrhea as well as right ankle swelling 1. Diarrhea ? Patient has some chronicity to her diarrhea has been seen and evaluated by Dr. Wood with GI. 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 Patient has been placed on budesonide plan is to continue ? 02/09/2023; patient responding to treatment 2. Right ankle swelling ? Osteoarthritis versus gout. Imaging studies demonstrated soft tissue swelling. Patient did receive prednisone in the ED plan is to continue as tolerated ? 02/09/2023 patient responded to steroid with improvement in overall pain control 3. Paroxysmal A-fib ? Rate controlled on systemic anticoagulation with rivaroxaban plans to continue 4. Severe hypokalemia ? Corrected per protocol repeat labs ordered for monitoring 5. Hypertension - Blood pressure controlled, home medications continued with dose adjustment as needed 6. History of previous right MCA CVA ? With no residual effect 7. Dyslipidemia As per history patient apparently did develop intolerance to statin therapy 8.GERD ? On PPI 9.DVT prophylaxis ?On rivaroxaban Time spent in the patient's overall evaluation,decision-making process, review of diagnostic data, adjustment of management, discussion with other providers, nursing nursing and ancillary staff involved in patient's care documentation, 37 Minutes Charges/Coding Visit Charges Inpatient E&M: 08898 Subs Hosp L2
[2023-02-09] MEDS: FLUOROMETHOLONE 1 DROP BOTTLE 1 DRP EACH EYE ×2 (08:51→20:40)
[2023-02-09] MEDS: Losartan Potassium 100 MG Tablet PO (08:53)
[2023-02-09] MEDS: predniSONE 20 MG Tablet PO (08:53)
[2023-02-09] MEDS: Metoprolol Tartrate 25 MG Tablet PO ×2 (08:53→20:39)
[2023-02-09] MEDS: Budesonide 3 MG CAPSULE.EC 6 MG PO (08:53)
[2023-02-09] MEDS: Na Biphos/Potassium Phosphate PACKET 1 PACKET PO ×2 (09:03→20:40)
--- NOTE | 2023-02-09 10:20 | CASEMGMT ---
RN CM Face to Face with patient for initial transition planning/care coordination assessment. RN CM introduced self and role at [facility]. Patient lying in bed, alert and oriented. Patient willing to participate in assessment and is able to answer all questions appropriately. Care providers, pharmacy, and demographics verified. Patient wishes to discharge home and interested if HHC if needed, will monitor progress with therapy. Patient states she has no further needs or concerns at this time. CM to follow for discharge planning needs that may arise. PCP: Caren Specialists: MATHEUS Wood Preferred Pharmacy: [facility] Insurance: [employer] Pres[employer] Benefit: yes Living Will/HPOA: yes, daughter Tamie Benitez LNOK: daughters Living Arrangements: Patient lives alone in a single story home with ramp to enter the home. Patient states she is independent at home. Transportation: self, daughter DME/HHC: Patient has shower chair, raised toilet, cane, walker, medical alert, grab bars at home. No previous HHC or SNF. Disposition Plan: Patient to discharge home with family support and follow-up plans in place. Will monitor for HHC. Criss MARINO, RN, CM
--- NOTE | 2023-02-09 14:41 | CASEMGMT ---
RN CM reveiwed threrapy notes, recommending HHC at discharge. RN CM to patient's room to discuss HHC. A list of HHC providers including quality and resource use data and consistent with the patient?s preferred geographical region, medical needs, and insurance network were [facility]. Patient would like RN CM to discuss with daughter Alsyon. RN CM called [facility] to discuss discharge planning. Daughter prefers [facility]. RN CM called [facility] to make referral, awaiting acceptance. CM will continue to follow this patient and plan for a safe discharge.
--- NOTE | 2023-02-09 15:16 | CASEMGMT ---
ANIKET REYES updated by [facility] that they are able to accept the patient with planned start of care for Sunday. ANIKET REYES updated patient regarding C acceptance. Patient had no further questions or concerns at this time.
--- NOTE | 2023-02-09 15:24 | CHAPLAIN ---
Type of Pastoral Visit _x__ Initial Visit ___ Follow-up Visit ___ On-call Visit ___ General Patient Visit ___ Spiritual Assessment ___ Family Conference ___ Bereavement ___ Rapid Response ___ Code Blue ___ Other (describe below) Pastoral Care Referral From _x__ Patient ___ Family ___ Nurse ___ Physician ___ Go Cart Mechanic ___ Brand Development Manager ___ Other (describe below) Sacrament/Intervention _x__ Active listening ___ Anointing ___ Christianity ___ Bereavement ___ Communion _x__ Uma exploration ___ _x__ Life review _x__ Prayer ___ Reconciliation ___ Sacrament of Sick _x__ Supportive presence ___ Wedding ___ Other (describe below) Pastoral Comments patient is welcoming and is eager to talk; pt speaks of her baptism and life in uma through Synagogue uma; pt speaks of her family and her cat; pt is concerned about having help at home and asks questions which this control officer says that CM and SW can answer better; daughter called on phone and pt hands phone to this control officer to be introduced and to offer support to daughter; pt welcomes prayer;
[2023-02-09] MEDS: Rivaroxaban 20 MG Tablet PO (20:40)
[2023-02-09] MEDS: MELATONIN 3 MG TABLET PO (20:40)
[2023-02-09] MEDS: Niacin SA 500 MG Tablet PO (20:40)
[2023-02-10] VITALS (7 sets, daily range): BP systolic 125–145; BP diastolic 62–81; PULSE 80–92; RESP 16–18; TEMP 36.6–36.8; O2SAT 94–99
--- NOTE | 2023-02-10 00:30 | RAD_ITS ---
INDICATION: Dyspnea EXAMINATION/TECHNIQUE: X-RAY - portable upright AP chest x-ray COMPARISON: 02/15/2022 FINDINGS: LINES/DEVICES: None. LUNGS: Mild vascular prominence with hazy bilateral airspace opacities, right lung greater than left. Minimal blunting of the bilateral costophrenic angles. MEDIASTINUM AND CARDIOVASCULAR STRUCTURES: Stable enlargement of the cardiac silhouette. BONES AND SOFT TISSUES: No acute changes. RAD/Chest 1 View (Portable) IMPRESSION: Cardiomegaly with probable pulmonary edema, infection cannot be entirely excluded. Electronically Signed: Jack Horn MD at 0:45 EDT ,
--- NOTE | 2023-02-10 07:41 | PN.HOSP_ITS ---
Reason for Visit Reason for Visit: Diagnoses Dehydration (02/08/23) Hypokalemia (02/08/23) Diarrhea, unspecified (02/08/23) Subjective Subjective Patient right ankle swelling persist. Did consult podiatry for joint aspiration to rule out infectious or inflammatory etiology. Objective Data Objective Data Vital Signs: Vital Signs Temp Pulse Resp BP Pulse Ox O2 Del Method 98 F 80 18 125/68 H 98 Room Air 02/10/23 02:30 02/10/23 02:30 02/10/23 02:30 02/10/23 02:30 02/10/23 02:30 02/10/23 02:30 Oxygen Delivery Method Room Air Weight: 51.4 kg Body Mass Index (BMI) 21.4 Intake & Output: Intake and Output for Last 24 Hours 02/08/23 02/09/23 02/10/23 23:59 23:59 23:59 Intake Total 1645 / 1645 2648.75 / 2648.75 Balance 1645 / 1645 2648.75 / 2648.75 Lab / Micro Data Result Diagrams: 02/10/23 07:16 02/10/23 07:16 Micro: Microbiology 02/08/23 16:05 Stool Enteric Bacteriology - Final 02/08/23 16:05 Stool C. difficile DNA Amplification - Final Physical Exam Narrative GENERAL: cooperative HEENT: Atraumatic; normocephalic EYES; Anicteric, Normal Conjunctiva NECK; supple, normal thyroid, RESPIRATORY: Diminished to auscultation CARDIOVASCULAR: Regular S1 S2, GI: soft, normoactive bowel sounds, : No Renal angle tenderness; EXTREMITIES: No edema, no clubbing, MUSCULOSKELETAL: Swelling involving the right ankle improved NEURO: Awake; no lateralizing signs. SKIN: No Rash PSYCH; Flat affect Assessment & Plan Assessment/Plan (1) Diarrhea: (2) Acute dehydration: (3) Hypokalemia: PLAN: Plan Patient is an 87-year-old lady presenting with diarrhea as well as right ankle swelling 1. Diarrhea ? Patient has some chronicity to her diarrhea has been seen and evaluated by Dr. Wood with GI. 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 Patient has been placed on budesonide plan is to continue ? 02/09/2023; patient responding to treatment 2. Right ankle swelling ? Osteoarthritis versus gout. Imaging studies demonstrated soft tissue swelling. Patient did receive prednisone in the ED plan is to continue as tolerated ? 02/09/2023 patient responded to steroid with improvement in overall pain control -02/10/2023atient right ankle swelling persist. Did consult podiatry for joint aspiration to rule out infectious or inflammatory etiology. 3. Paroxysmal A-fib ? Rate controlled on systemic anticoagulation with rivaroxaban plans to continue 4. Severe hypokalemia ? Corrected per protocol repeat labs ordered for monitoring 5. Hypertension - Blood pressure controlled, home medications continued with dose adjustment as needed 6. History of previous right MCA CVA ? With no residual effect 7. Dyslipidemia As per history patient apparently did develop intolerance to statin therapy 8.GERD ? On PPI 9.DVT prophylaxis ?On rivaroxaban Time spent in the patient's overall evaluation,decision-making process, review of diagnostic data, adjustment of management, discussion with other providers, nursing nursing and ancillary staff involved in patient's care documentation, 37 Minutes Charges/Coding Visit Charges Inpatient E&M: 10229 Subs Hosp L2
[2023-02-10 07:45] LABS: Absolute Lymphocyte Count 2.51 X10^3/uL (0.83-4.51); Absolute Neutrophil Count 7.4 X10^3/uL (2.0-7.7); Basophil# 0.04 X10^3/uL; Basophil% 0.4 % (0-1); Eosinophil# 0.13 X10^3/uL; Eosinophils% 1.2 % (0-5); Hematocrit 33.9 % (37-47); Hemoglobin 11.1 g/dL (12.0-15.0); Lymphocyte # 2.51 X10^3/ul (0.83-4.51); Lymphocyte % 22.6 % (19-41); Mean Corp Hgb Conc 32.7 g/dL (32-36); Mean Corpuscular Hgb 31.4 pg (27.0-32.0); Mean Platelet Vol. 9.1 fl (6.2-12.0); Monocyte# 0.96 X10^3/uL; Monocyte% 8.6 % (0-10); NRBC Flagged by Analyzer 0 % (0-5); Neutrophil # 7.44 X10^3/uL (2.7-7.7); Neutrophil % 66.9 % (47-70); Platelet Count 450 K/mm3 (150-450); RBC Distribution Width CV 12.1 % (11.6-14.6); RBC Distribution Width SD 42.1 fl (35.1-43.9); Red Blood Count 3.53 M/mm3 (4.2-5.4); White Blood Count 11.1 K/mm3 (4.4-11.0)
[2023-02-10 08:15] LABS: Anion Gap 7 (5-15); BUN 13 mg/dL (7-18); BUN/Creat Ratio 20.7 RATIO (10-20); Calcium,Total 8.5 mg/dL (8.5-10.1); Chloride 109 mmol/L (98-107); Creatinine, Serum 0.63 mg/dL (0.55-1.02); EST Glomerular Filtration Rate 96 mL/min (>60); Est Glom Filt Rate - Afr Amer 116 mL/min (>60); Estimated Creatinine Clearance 31.04 ml/min; Glucose 101 mg/dL (74-106); Sodium Level 140 mmol/L (136-145)
[2023-02-10] MEDS: Acetaminophen 500 MG Tablet 1000 MG PO ×3 (08:43→21:43)
[2023-02-10] MEDS: Na Biphos/Potassium Phosphate PACKET 1 PACKET PO ×2 (08:43→21:45)
[2023-02-10] MEDS: Losartan Potassium 100 MG Tablet PO (08:44)
[2023-02-10] MEDS: Budesonide 3 MG CAPSULE.EC 6 MG PO (08:44)
[2023-02-10] MEDS: Metoprolol Tartrate 25 MG Tablet PO ×2 (08:44→21:44)
[2023-02-10] MEDS: predniSONE 20 MG Tablet PO (08:44)
[2023-02-10] MEDS: FLUOROMETHOLONE 1 DROP BOTTLE 1 DRP EACH EYE (08:49)
[2023-02-10 09:00] LABS: Magnesium 1.9 mg/dL (1.6-2.6); Phosphorus 1.8 mg/dL (2.5-4.9)
[2023-02-10] MEDS: Potassium Chloride 10mEq/100mL 10 MEQ/100 ML IV.SOLN. 100 MEQ IV BOLUS ×4 (11:13→15:23)
--- NOTE | 2023-02-10 13:30 | CASEMGMT ---
Social Work Note ANIKET Cartwright informed SW patient and family were inquiring about SNF, [facility]. SW to follow up as current plan is home with [facility]. SW met with patient's daughter, Tamie, and introduced herself and role as [facility] Employment Coach. SW inquired about discharge plan. Patient's daughter states they are concerned with patient being alone as patient's daughters work full time babysitter. SW discussed options of medical alerts or [place] day care, explaining PT evaluation was recommending home with therapy. Patient's daughter declined daycare and medical alerts. If insurance will likely not cover SNF, patient's daughter wants to continue with their current D/C plan. PT to see patient today. PILLO informed by ANIKET Pace PT note from today indicates patient would benefit from SNF before going home with [facility]. ANIKET REYES reviewed recommendation with patient's daughter who is requesting referral to [facility]. PILLO sent referral to [facility] via care port, care team updated of discharge plan change. Plan: referral to [facility] Marla SALAZAR, GOOD
--- NOTE | 2023-02-10 13:57 | CASEMGMT ---
TC to pt dtr Tamie, she state she is concerned of pt returning home and would be interested in a skilled stay for therapy for strengthening. She states she prefers that pt goes to [facility] as she has another family member there. She was questioning if pt insurance would cover the stay. Updated SW on dtr's request. TC to [facility] Pallavi to make aware pt will not be dc'ing today and that SNF is being pursued.
[2023-02-10] MEDS: oxyCODONE 5 MG Tablet PO (16:44)
--- NOTE | 2023-02-10 17:01 | CON.PCM_ITS ---
Assessment & Plan Assessment/Plan (1) Foot pain, right: (2) Inability to walk: (3) Essential hypertension: (4) HLD (hyperlipidemia): PLAN: Plan Patient seen and evaluated She states she has had right foot and ankle pain that has been off and on for the past several months. States that recently became swollen over the last few weeks. Discomfort did improve on prednisone. Right lower extremity: There is mild +2 pitting soft tissue edema about the right ankle joint and medial foot. Skin is thin/atrophic. No erythema, no ecchymosis, no open wounds, no rubor. Decreased range of motion of the ankle j oint in dorsiflexion with knee extended without pain and crepitus. Right ankle joint demonstrates no pain in active or passive range of motion. No pain to palpation about the ankle joint, medial malleolus, or lateral malleolus. No increased temperature noted. No pain to palpation along the posterior tibial tendon course or at insertion site to the navicular tuberosity. No pain to palpation at the medial plantar calcaneal tubercle at origin of plantar fascia. Radiographs: I reviewed radiographic imaging from 02/08/2023 which demonstrated soft tissue swelling of the ankle. No evidence of joint effusion. Normal visualization of the talar dome. Normal tibiofibular overlap. Normal fibular length. No fractures. Patient afebrile, VSS, WBC 11.1. No left shift. Differential of white cells WNL. Discussed with patient obtaining sample of the synovial fluid of the right ankle joint. Following verbal consent the site was prepped with Betadine and cleansed with 70% isopropyl alcohol. A local anesthetic block consisting of 6 cc of 1% lidocaine plain was administered overlying the area between the tibialis anterior tendon and the medial malleolus. At this time arthrocentesis was per formed on the right ankle joint utilizing a 22-gauge needle on a 10 cc syringe. Needle was inserted between the anterior tibial tendon and the medial malleolus into the ankle joint. A small amount of synovial fluid and blood was obtained consisting of 2 cc total fluid. This was obtained and sent to the lab for analysis. Site was dressed with Band-Aid. Laboratory did discuss with me that fluid had clotted in the sample bottle and was unable to be run. Given exam findings I feel low clinical suspicion for septic arthritis. Likely osteoarthritis versus gouty arthritis. Recommend following low purine diet/avoidance of triggering foods. May continue current course of prednisone. May elevate right lower extremity at times of rest to aid in edema control. Medicine team is currently following for medical management, they are greatly appreciated. Podiatry will continue to follow. Pending discharge may follow in office. Please do not hesitate to call for any questions or concerns Emanuel Rod Jr. D.P.M. [facility] [phone] HPI Consult Data Date of Consult: 02/10/23 HPI Narrative Reason for Consultation: Swollen right ankle HPI Narrative: GIA MERRITT, is a 87 F who presents to [facility] on 02/08/2023 with complaint of returning diarrhea and increasing pain in the right foot. She has previously had pain in the right foot extending back to October 30 with rad iographs negative for acute findings. She states that her right foot has bothered her more than her left and does have some pain when walking. She believed to be plantar fasciitis. She does have significant history of diffuse osteoarthritis without trauma to this area. No fever. Denies pain when resting. She has been placed on prednisone taper which did help decrease the pain. She did have updated radiographic imaging on 02/08/2023 demonstrating soft tissue swelling of the ankle. She was consulted to podiatry for right ankle swelling with request to perform arthrocentesis. [facility] Medical History Abrasion of right upper back excluding scapular region Anxiety Arthritis involving multiple sites Cellulitis of mid back region CVA (cerebral vascular accident) (02/15/22) Essential hypertension GERD (gastroesophageal reflux disease) HLD (hyperlipidemia) Longstanding persistent atrial fibrillation Home Medications calcium carbonate 600 mg calcium (1,500 mg) tablet 600 mg PO DAILY . 02/22/22 [History Last Taken Unknown] cinnamon bark 500 mg capsule 500 mg PO DAILY . 02/22/22 [History Last Taken Unknown] coenzyme Q10 100 mg capsule (Co Q-10) 100 mg PO DAILY . 02/22/22 [History Last Taken Unknown] magnesium oxide 400 mg (241.3 mg magnesium) tablet 400 mg PO DAILY . 02/22/22 [History Last Taken Unknown] niacin 500 mg tablet 500 mg PO QHS . 02/22/22 [History Last Taken Unknown] red yeast rice 600 mg tablet 600 mg PO BID . 02/22/22 [History Last Taken Unknown] vitamin B complex 1 tab PO DAILY . 02/22/22 [History Last Taken Unknown] fluorometholone 0.1 % eye drops,suspension 1 drp ophthalmic (eye) BID PRN Dry Eyes 03/02/22 [History Last Taken Unknown] famotidine 20 mg tablet 20 mg PO DAILY PRN GERD 08/23/22 [History Last Taken Unknown] budesonide 3 mg capsule,delayed,extended release 6 mg PO DAILY . 02/08/23 [History Last Taken 02/08/23 08:00] doxycycline monohydrate 100 mg capsule 100 mg PO BID . 02/08/23 [History Last Taken Unknown] hydrochlorothiazide 25 mg tablet 25 mg PO DAILY . 02/08/23 [History Last Taken 02/08/23] lorazepam 0.5 mg tablet 0.25 mg PO PRN PRN anxiety 02/08/23 [History Last Taken Unknown] losartan 100 mg tablet 100 mg PO DAILY . 02/08/23 [History Last Taken 02/08/23] metoprolol tartrate 25 mg tablet 25 mg PO BID . 02/08/23 [History Last Taken 02/08/23] omeprazole 20 mg capsule,delayed release 20 mg PO PRN PRN . 02/08/23 [History Last Taken Unknown] prednisone 10 mg tablet See Rx Instructions .ROUTE .COMPLEX . 02/08/23 [History Last Taken Unknown] rivaroxaban 20 mg tablet (Xarelto) 20 mg PO QPM . 02/08/23 [History Last Taken Unknown] Allergy/AdvReac Type Severity Reaction Status Date / Time clindamycin Allergy Other Verified 02/08/23 10:32 hyoscyamine Allergy Other Verified 02/08/23 10:32 Penicillins Allergy Hives Verified 02/08/23 10:32 Srqwvxn-EQG-RiB Reductase Allergy Pain in Verified 02/08/23 10:32 Inhibitor joints [Gimdptn-Wfq-Pmr Reductase Inhibitor] glucosamine AdvReac Other Verified 02/08/23 10:32 Family History Father Diabetes Hyperlipemia Mother Cancer stomach Brother Parkinson's disease Surgical History Cataract extraction status Social History household members: none current occupational status: retired 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 pets and animals: Yes pets and animals: cat(s) Smoking Status: Never smoker alcohol intake: current alcohol intake frequency: holidays/special occasions only substance use type: does not use what type of physical activity do you participate in: other details: gardening do you feel safe at home: Yes ROS Constitutional Constitutional: Denies body ache(s), chills or fever(s) Eyes Eyes: Denies blurry vision, diplopia or dry eyes ENT HEENT: Denies dizziness, nasal congestion or sore throat Cardiovascular Cardiovascular: Denies chest pain, claudication or palpitations Respiratory/Chest Respiratory/Chest: Denies chest congestion, cough or shortness of breath at rest Gastrointestinal Gastrointestinal: Denies abdominal pain, constipation, diarrhea, nausea or vomiting Genitourinary Genitourinary: Denies dysuria, hematuria or urinary urgency Musculoskeletal Musculoskeletal: Denies joint pain, joint stiffness or joint swelling Integumentary Integumentary: Denies lesions, pruritus or rash Neurologic Neurologic: Denies dizziness, numbness or seizures Endocrine Endocrinology: Denies cold intolerance or heat intolerance Hematologic/Lymphatic Hematologic/Lymphatic: Denies easy bleeding or easy bruising Allergic/Immunologic Allergic/Immunologic: Denies wheezing Physical Exam Const alert, oriented x3 and no apparent distress General Appearance: cooperative HEENT normocephalic Eyes General Eye: normal appearance of both eyes Neck General: normal visual inspection Lymph Lymphatic: no lymphadenopathy noted and no lymphedema noted Resp normal respiratory effort Cardio regular rate and regular rhythm Extremity normal capillary refill, no calf tenderness and no pedal edema Extremity Narrative: DP and PT pulses weakly palpable. Adequate capillary fill time to the digits. Hair growth absent to digits. Dermatological: There is mild +2 pitting soft tissue edema about the right ankle joint and medial foot. Skin is thin/atrophic. No erythema, no ecchymosis, no o pen wounds, no rubor. Left foot demonstrates dorsal abrasion overlying the first metatarsophalangeal joint secondary to dorsal exostosis. Musculoskeletal: Muscle strength is age-appropriate. Left foot demonstrates dorsal exostosis secondary to first metatarsophalangeal joint arthritis. There is decreased range of motion of the first metatarsophalangeal joint of the left and right foot. Decreased range of motion of the ankle joint in dorsiflexion with knee extended bilateral without pain and crepitus. Right ankle joint demonstrates some +2 pitting edema about the ankle with no pain in active or passive range of motion. No pain to palpation about the ankle joint, medial malleolus, or lateral malleolus. No increased temperature noted. No pain to palpation along the posterior tibial tendon course or at insertion site to the navicular tuberosity. No pain to palpation at the medial plantar calcaneal tubercle at origin of plantar fascia. Skin no rashes or lesions noted, skin turgor normal and no jaundice Neuro moves all extremities Lab / Micro Data Result Diagrams: 02/10/23 07:16 02/10/23 07:16 Labs: Laboratory Results - last 24 hr 02/10/23 07:16: WBC 11.1 H, RBC 3.53 L, Hgb 11.1 L, Hct 33.9 L, MCV 96.0, MCH 31.4, MCHC 32.7, RDW Std Deviation 42.1, RDW Coeff of Palak 12.1, Plt Count 450, MPV 9.1, Immature Gran % (Auto) 0.300, Neut % (Auto) 66.9, Lymph % (Auto) 22.6, [place] % (Auto) 8.6, Eos % (Auto) 1.2, Baso % (Auto) 0.4, Absolute Neuts (auto) 7.4, Absolute Lymphs (auto) 2.51, Nucleated RBC % 0 02/10/23 07:16: Sodium 140, Potassium 3.0 L, Chloride 109 H, Carbon Dioxide 24.0, Anion Gap 7, BUN 13, Creatinine 0.63, Estim Creat Clear Calc 31.04, Est GFR (MDRD) Af Amer 116, Est GFR (MDRD) Non-Af 96, BUN/Creatinine Ratio 20.7 H, Glucose 101, Calcium 8.5 02/10/23 07:16: Phosphorus 1.8 L, Magnesium 1.9
[2023-02-10] MEDS: Potassium Chloride Oral Tablet 20 MEQ PO (17:33)
[2023-02-10] MEDS: Niacin SA 500 MG Tablet PO (21:44)
[2023-02-10] MEDS: Rivaroxaban 20 MG Tablet PO (21:44)
--- NOTE | 2023-02-10 22:11 | PN.HOSP_ITS ---
Hospitalist Note Asymptomatic sustained HR 170s per staff. Will dose with IV cardizem and re- assess. Does have chronic AF history.
--- NOTE | 2023-02-10 22:11 | PCM.HOSP.N ---
Hospitalist Note Asymptomatic sustained HR 170s per staff. Will dose with IV cardizem and re-assess. Does have chronic AF history.
[2023-02-10] MEDS: dilTIAZem 25 MG/5 ML Vial 20 MG IV BOLUS (22:15)
[2023-02-10] MEDS: 0.9% Saline Lock 10 ML Syringe IV (22:16)
--- NOTE | 2023-02-10 23:03 | EKG12_ITS ---
Test Reason : repeat Blood Pressure : / mmHG Vent. Rate : 096 BPM Atrial Rate : 000 BPM P-R Int : 000 ms QRS Dur : 108 ms QT Int : 370 ms P-R-T Axes : 000 -27 083 degrees QTc Int : 467 ms Atrial fibrillation Minimal voltage criteria for LVH, may be normal variant ( Nic product ) Inferior infarct , age undetermined Anterior infarct , age undetermined Abnormal ECG When compared with ECG of 10-FEB-2023 22:10, MANUAL COMPARISON REQUIRED, DATA IS UNCONFIRMED Confirmed by DEBRA DUNN, ALMA ([id number]), field map editor TJ KENNEDY ([id number]) on 02/13/2023 1:24:38 PM Referred By: Gail Confirmed By:INGA RICHARDSON MD
--- NOTE | 2023-02-10 23:04 | EKG12_ITS ---
Test Reason : svt Blood Pressure : / mmHG Vent. Rate : 144 BPM Atrial Rate : 000 BPM P-R Int : 000 ms QRS Dur : 104 ms QT Int : 318 ms P-R-T Axes : 000 -33 107 degrees QTc Int : 492 ms Atrial fibrillation with rapid ventricular response Left axis deviation Minimal voltage criteria for LVH, may be normal variant ( Nic product ) Inferior infarct , age undetermined Anterior infarct , age undetermined Nonspecific ST-T changes Abnormal ECG When compared with ECG of 07-JUL-2022 08:30, Vent. rate has increased BY 60 BPM Left bundle branch block is no longer Present Anterior infarct is now Present Inferior infarct is now Present Confirmed by DEBRA DUNN, ALMA ([id number]), commissioning editor TJ KENNEDY ([id number]) on 02/13/2023 1:25:00 PM Referred By: Gail Confirmed By:INGA RICHARDSON MD
--- NOTE | 2023-02-10 23:06 | NURSING ---
Patient went into A-Fib with RVR with HR sustaining in the 150s. An EKG was drawn to confirm and Dr. Price was contacted. 20mg of Cardizem was ordered and given. Another EKG was drawn after the Cardizem was given and showed the Patient then converted out of A-Fib with RVR to A-Fib with HR IN THE 80S. Dr. Price was notified of follow up findings. No other interventions advised at this time. Care continues
[2023-02-11] VITALS (7 sets, daily range): BP systolic 105–166; BP diastolic 65–89; PULSE 72–92; RESP 16–19; TEMP 36.6–36.8; O2SAT 91–97
[2023-02-11] MEDS: Furosemide 20 MG/2 ML VIAL IV (03:04)
[2023-02-11] MEDS: Acetaminophen 500 MG Tablet 1000 MG PO ×3 (05:57→21:20)
[2023-02-11 06:30] LABS: Absolute Lymphocyte Count 2.56 X10^3/uL (0.83-4.51); Absolute Neutrophil Count 8.7 X10^3/uL (2.0-7.7); Basophil# 0.03 X10^3/uL; Basophil% 0.2 % (0-1); Eosinophil# 0.09 X10^3/uL; Eosinophils% 0.7 % (0-5); Hematocrit 36.5 % (37-47); Hemoglobin 11.6 g/dL (12.0-15.0); Lymphocyte # 2.56 X10^3/ul (0.83-4.51); Lymphocyte % 20.7 % (19-41); Mean Corp Hgb Conc 31.8 g/dL (32-36); Mean Corpuscular Hgb 31.3 pg (27.0-32.0); Mean Corpuscular Volume 98.4 fL (81-99); Mean Platelet Vol. 9.5 fl (6.2-12.0); Monocyte# 0.97 X10^3/uL; Monocyte% 7.8 % (0-10); NRBC Flagged by Analyzer 0 % (0-5); Neutrophil # 8.66 X10^3/uL (2.7-7.7); Platelet Count 499 K/mm3 (150-450); RBC Distribution Width CV 12.3 % (11.6-14.6); RBC Distribution Width SD 44.2 fl (35.1-43.9); Red Blood Count 3.71 M/mm3 (4.2-5.4); White Blood Count 12.4 K/mm3 (4.4-11.0)
[2023-02-11 06:57] LABS: Anion Gap 8 (5-15); BUN 13 mg/dL (7-18); Calcium,Total 8.9 mg/dL (8.5-10.1); Chloride 108 mmol/L (98-107); Creatinine, Serum 0.72 mg/dL (0.55-1.02); EST Glomerular Filtration Rate 81 mL/min (>60); Est Glom Filt Rate - Afr Amer 98 mL/min (>60); Estimated Creatinine Clearance 31.04 ml/min; Glucose 101 mg/dL (74-106); Potassium 3.4 mmol/L (3.5-5.1); Sodium Level 140 mmol/L (136-145)
--- NOTE | 2023-02-11 07:35 | PN.HOSP_ITS ---
Reason for Visit Reason for Visit: Diagnoses Hyperlipidemia, unspecified (02/08/23) Dehydration (02/08/23) Hypokalemia (02/08/23) Essential (primary) hypertension (02/08/23) Pain in right foot (02/08/23) Diarrhea, unspecified (02/08/23) Difficulty in walking, not elsewhere classified (02/08/23) Subjective Subjective Patient went into A-fib with RVR with initiation of Cardizem. Patient now agreeable to being discharged to a alf facility consult has subsequently been placed Case management Objective Data Objective Data Vital Signs: Vital Signs Temp Pulse Resp BP Pulse Ox O2 Del Method O2 Flow Rate 97.9 F 73 16 119/83 H 91 Nasal Cannula 4 02/11/23 03:10 02/11/23 03:10 02/11/23 03:10 02/11/23 03:10 02/11/23 03:10 02/11/23 03:10 02/11/23 03:10 Oxygen Flow Rate (L/min) 4 Oxygen Delivery Method Nasal Cannula Weight: 51.4 kg Body Mass Index (BMI) 21.4 Intake & Output: Intake and Output for Last 24 Hours 02/09/23 02/10/23 02/11/23 23:59 23:59 23:59 Intake Total 2648.75 / 2648.75 830 / 830 Output Total 600 / 600 Balance 2648.75 / 2648.75 830 / 830 -600 / -600 Lab / Micro Data Result Diagrams: 02/11/23 05:20 02/11/23 05:20 Labs: Laboratory Results - last 24 hr 02/10/23 07:16: WBC 11.1 H, RBC 3.53 L, Hgb 11.1 L, Hct 33.9 L, MCV 96.0, MCH 31.4, MCHC 32.7, RDW Std Deviation 42.1, RDW Coeff of Palak 12.1, Plt Count 450, MPV 9.1, Immature Gran % (Auto) 0.300, Neut % (Auto) 66.9, Lymph % (Auto) 22.6, [place] % (Auto) 8.6, Eos % (Auto) 1.2, Baso % (Auto) 0.4, Absolute Neuts (auto) 7.4, Absolute Lymphs (auto) 2.51, Nucleated RBC % 0 05/06/23 07:16: Sodium 140, Potassium 3.0 L, Chloride 109 H, Carbon Dioxide 24.0, Anion Gap 7, BUN 13, Creatinine 0.63, Estim Creat Clear Calc 31.04, Est GFR (MDRD) Af Amer 116, Est GFR (MDRD) Non-Af 96, BUN/Creatinine Ratio 20.7 H, Glucose 101, Calcium 8.5 02/10/23 07:16: Phosphorus 1.8 L, Magnesium 1.9 02/11/23 05:20: WBC 12.4 H, RBC 3.71 L, Hgb 11.6 L, Hct 36.5 L, MCV 98.4, MCH 31.3, MCHC 31.8 L, RDW Std Deviation 44.2 H, RDW Coeff of Palak 12.3, Plt Count 499 H, MPV 9.5, Immature Gran % (Auto) 0.600, Neut % (Auto) 70.0, Lymph % (Auto) 20.7, [place] % (Auto) 7.8, Eos % (Auto) 0.7, Baso % (Auto) 0.2, Absolute Neuts (auto) 8.7 H, Absolute Lymphs (auto) 2.56, Nucleated RBC % 0 02/11/23 05:20: Sodium 140, Potassium 3.4 L, Chloride 108 H, Carbon Dioxide 24.0, Anion Gap 8, BUN 13, Creatinine 0.72, Estim Creat Clear Calc 31.04, Est GFR (MDRD) Af Amer 98, Est GFR (MDRD) Non-Af 81, BUN/Creatinine Ratio 18.0, Glucose 101, Calcium 8.9 Micro: Microbiology 02/08/23 16:05 Stool Enteric Bacteriology - Final 02/08/23 16:05 Stool C. difficile DNA Amplification - Final Radiography Diagnostic Testing: Radiology Impression Chest X-Ray 02/10/23 00:30 IMPRESSION: Cardiomegaly with probable pulmonary edema, infection cannot be entirely excluded. Electronically Signed: Jack Horn MD at 0:45 EDT , Physical Exam Narrative GENERAL: cooperative HEENT: Atraumatic; normocephalic EYES; Anicteric, Normal Conjunctiva NECK; supple, normal thyroid, RESPIRATORY: Diminished to auscultation CARDIOVASCULAR: Regular S1 S2, GI: soft, normoactive bowel sounds, : No Renal angle tenderness; EXTREMITIES: No edema, no clubbing, MUSCULOSKELETAL: Swelling involving the right ankle improved NEURO: Awake; no lateralizing signs. SKIN: No Rash PSYCH; Flat affect Assessment & Plan Assessment/Plan (1) Diarrhea: (2) Acute dehydration: (3) Hypokalemia: PLAN: Plan Patient is an 87-year-old lady presenting with diarrhea as well as right ankle swelling 1. Diarrhea ? Patient has some chronicity to her diarrhea has been seen and evaluated by Dr. Wood with GI. 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 Patient has been placed on budesonide plan is to continue ? 02/09/2023; patient responding to treatment 2. Right ankle swelling ? Osteoarthritis versus gout. Imaging studies demonstrated soft tissue swelling. Patient did receive prednisone in the ED plan is to continue as tolerated ? 02/09/2023 patient responded to steroid with improvement in overall pain control -3Patient right ankle swelling persist. Did consult podiatry for joint aspiration to rule out infectious or inflammatory etiology. ?02/11/2023; patient was seen in consultation by podiatry notes and recommendati ons reviewed 3. Paroxysmal A-fib ? Rate controlled on systemic anticoagulation with rivaroxaban plans to continue -02/11/2023 patient went into A-fib with RVR did receive Cardizem 4. Severe hypokalemia ? Corrected per protocol repeat labs ordered for monitoring 5. Hypertension - Blood pressure controlled, home medications continued with dose adjustment as needed 6. History of previous right MCA CVA ? With no residual effect 7. Dyslipidemia As per history patient apparently did develop intolerance to statin therapy 8.GERD ? On PPI 9.DVT prophylaxis ?On rivaroxaban 10. Physical deconditioning - Requested for PT OT eval and clinical social worker to assist with discharge planning. Plan is for patient to be discharged to alf facility pending insurance approval and bed availability Time spent in the patient's overall evaluation,decision-making process, review of diagnostic data, adjustment of management, discussion with other providers, nursing nursing and ancillary staff involved in patient's care documentation, 37 Minutes Charges/Coding Visit Charges Inpatient E&M: 61963 Subs Hosp L2
[2023-02-11] MEDS: FLUOROMETHOLONE 1 DROP BOTTLE 1 DRP EACH EYE (09:16)
[2023-02-11] MEDS: predniSONE 20 MG Tablet PO (09:17)
[2023-02-11] MEDS: Losartan Potassium 100 MG Tablet PO (09:17)
[2023-02-11] MEDS: Na Biphos/Potassium Phosphate PACKET 1 PACKET PO ×2 (09:17→21:20)
[2023-02-11] MEDS: Budesonide 3 MG CAPSULE.EC 6 MG PO (09:18)
[2023-02-11] MEDS: Metoprolol Tartrate 25 MG Tablet PO (09:18)
[2023-02-11] MEDS: Potassium Chloride Oral Tablet 20 MEQ PO ×2 (09:22→17:48)
--- NOTE | 2023-02-11 15:27 | NURSING ---
This RN taking over care of pt at this time.
[2023-02-11] MEDS: Rivaroxaban 20 MG Tablet PO (21:20)
[2023-02-11] MEDS: Niacin SA 500 MG Tablet PO (21:24)
[2023-02-12] VITALS (13 sets, daily range): BP systolic 112–141; BP diastolic 66–78; PULSE 81–137; RESP 16–18; TEMP 36.3–36.9; O2SAT 93–100
--- NOTE | 2023-02-12 04:05 | PCM.HOSP.N ---
Hospitalist Note Recurrent atrial fibrillation with RVR, will dose with IV cardizem x 1 now, was effective prior with occurrence.
[2023-02-12] MEDS: dilTIAZem 25 MG/5 ML Vial 10 MG IV BOLUS (04:18)
[2023-02-12] MEDS: 0.9% Saline Lock 10 ML Syringe IV ×3 (04:19→18:53)
[2023-02-12] MEDS: Acetaminophen 500 MG Tablet 1000 MG PO ×3 (06:29→21:01)
[2023-02-12 06:43] LABS: Absolute Lymphocyte Count 2.21 X10^3/uL (0.83-4.51); Absolute Neutrophil Count 9.2 X10^3/uL (2.0-7.7); Basophil# 0.04 X10^3/uL; Basophil% 0.3 % (0-1); Eosinophil# 0.13 X10^3/uL; Hematocrit 33.6 % (37-47); Hemoglobin 10.9 g/dL (12.0-15.0); Lymphocyte # 2.21 X10^3/ul (0.83-4.51); Lymphocyte % 17.4 % (19-41); Mean Corp Hgb Conc 32.4 g/dL (32-36); Mean Corpuscular Hgb 31.8 pg (27.0-32.0); Mean Platelet Vol. 9.5 fl (6.2-12.0); Monocyte# 0.99 X10^3/uL; Monocyte% 7.8 % (0-10); NRBC Flagged by Analyzer 0 % (0-5); Neutrophil # 9.23 X10^3/uL (2.7-7.7); Neutrophil % 72.9 % (47-70); Platelet Count 483 K/mm3 (150-450); RBC Distribution Width CV 12.7 % (11.6-14.6); RBC Distribution Width SD 44.9 fl (35.1-43.9); Red Blood Count 3.43 M/mm3 (4.2-5.4); White Blood Count 12.7 K/mm3 (4.4-11.0)
[2023-02-12 07:00] LABS: Anion Gap 6 (5-15); BUN 18 mg/dL (7-18); Calcium,Total 8.6 mg/dL (8.5-10.1); Chloride 108 mmol/L (98-107); Creatinine, Serum 0.67 mg/dL (0.55-1.02); EST Glomerular Filtration Rate 89 mL/min (>60); Est Glom Filt Rate - Afr Amer 108 mL/min (>60); Estimated Creatinine Clearance 31.04 ml/min; Glucose 106 mg/dL (74-106); Potassium 4.2 mmol/L (3.5-5.1); Sodium Level 138 mmol/L (136-145)
--- NOTE | 2023-02-12 09:19 | CASEMGMT ---
Discharge Planning Message sent to W to check on status on referral. Jessi Tyler
[2023-02-12] MEDS: Losartan Potassium 100 MG Tablet PO (09:45)
[2023-02-12] MEDS: Na Biphos/Potassium Phosphate PACKET 1 PACKET PO ×2 (09:45→21:01)
[2023-02-12] MEDS: Budesonide 3 MG CAPSULE.EC 6 MG PO (09:45)
[2023-02-12] MEDS: predniSONE 20 MG Tablet PO (09:45)
[2023-02-12] MEDS: Metoprolol Tartrate 25 MG Tablet PO (09:46)
[2023-02-12] MEDS: Potassium Chloride Oral Tablet 20 MEQ PO ×2 (09:48→16:02)
[2023-02-12] MEDS: FLUOROMETHOLONE 1 DROP BOTTLE 1 DRP EACH EYE ×2 (09:52→20:57)
--- NOTE | 2023-02-12 10:37 | CASEMGMT ---
Discharge Planning Tentative discharge date given to WPOLO. Jessi Tyler
--- NOTE | 2023-02-12 10:40 | CASEMGMT ---
PILLO received notification that [facility] accepted patient. PILLO notified patient and she asked SW to notify her daughter Tamie. PILLO spoke with Tamie and let her know [facility] accepted patient. PILLO told Whit that PILLO is not sure when patient will be discharged, but someone will notify her. Whit asked about transportation. PILLO let Whit know that can set up transport, but insurance will not cover wheelchair transport. Tamie said that is fine, it would be better if [facility] set up the transport. PILLO let Whit know someone from [facility] will let her know when patient is ready for discharge. Traci Roach PERFECT BINDER OPERATOR GOOD
--- NOTE | 2023-02-12 11:00 | PN.HOSP_ITS ---
Reason for Visit Reason for Visit: Diagnoses Hyperlipidemia, unspecified (02/08/23) Dehydration (02/08/23) Hypokalemia (02/08/23) Essential (primary) hypertension (02/08/23) Pain in right foot (02/08/23) Diarrhea, unspecified (02/08/23) Difficulty in walking, not elsewhere classified (02/08/23) Subjective Subjective Still some pain in her right ankle, feeling better than previously however. Did have episode of A-fib with RVR overnight that responded to Cardizem bolus Objective Data Objective Data Vital Signs: Vital Signs Temp Pulse Resp BP Pulse Ox O2 Del Method O2 Flow Rate 97.9 F 109 H 18 133/66 H 100 Nasal Cannula 2 02/12/23 09:41 02/12/23 09:46 02/12/23 09:41 02/12/23 09:46 02/12/23 09:41 02/12/23 09:41 02/12/23 09:40 Oxygen Flow Rate (L/min) 2 Oxygen Delivery Method Nasal Cannula Weight: 51.4 kg Body Mass Index (BMI) 21.4 Intake & Output: Intake and Output for Last 24 Hours 02/10/23 02/11/23 02/12/23 23:59 23:59 23:59 Intake Total 830 / 830 720 / 720 Output Total 600 / 600 Balance 830 / 830 120 / 120 Lab / Micro Data Result Diagrams: 02/12/23 05:33 02/12/23 05:33 Labs: Laboratory Results - last 24 hr 02/12/23 05:33: WBC 12.7 H, RBC 3.43 L, Hgb 10.9 L, Hct 33.6 L, MCV 98.0, MCH 31.8, MCHC 32.4, RDW Std Deviation 44.9 H, RDW Coeff of [place]ak 12.7, Plt Count 483 H, MPV 9.5, Immature Gran % (Auto) 0.600, Neut % (Auto) 72.9 H, Lymph % (Auto) 17.4 L, [place] % (Auto) 7.8, Eos % (Auto) 1.0, Baso % (Auto) 0.3, Absolute Neuts (auto) 9.2 H, Absolute Lymphs (auto) 2.21, Nucleated RBC % 0 02/12/23 05:33: Sodium 138, Potassium 4.2, Chloride 108 H, Carbon Dioxide 24.0, Anion Gap 6, BUN 18, Creatinine 0.67, Estim Creat Clear Calc 31.04, Est GFR (MDRD) Af Amer 108, Est GFR (MDRD) Non-Af 89, BUN/Creatinine Ratio 27.0 H, Gl ucose 106, Calcium 8.6 Micro: Microbiology 02/08/23 16:05 Stool Enteric Bacteriology - Final 02/08/23 16:05 Stool C. difficile DNA Amplification - Final Physical Exam Narrative General: Alert, oriented, no apparent distress HEENT: Atraumatic, normocephalic Eyes: Anicteric, normal conjunctiva, extraocular movements grossly intact Neck: Supple Respiratory: No overt crackles or wheezes, normal respiratory effort Cardiovascular: Irregularly irregular GI: Soft, nontender, nondistended Extremities: No edema Musculoskeletal: Moving all extremities Neuro: No overt focal neurological deficits Skin: No rashes appreciated Psych: Cooperative Assessment & Plan Assessment/Plan (1) Diarrhea: (2) Acute dehydration: (3) Hypokalemia: PLAN: Plan HistoryPatient is an 87-year-old lady presenting with diarrhea as well as right ankle swelling #afib w/ RVR -has recieved cardizem twice d/t RVR, will uptitrate BB -Continue xeralto #diarrhea -Has been evaluated by Dr. 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 -Continue budesonide #Right ankle swelling -Was fill OA versus gout -Imaging soft tissue swelling -Is responding to prednisone -Due to persistent swelling however podiatry was asked to evaluate 5/6 and got a total of 2 cc of total fluid which was sent to the lab for analysis but fluid clotted and was unable to run -Is recommended to continue current course of prednisone and to follow low purine diet and avoid triggering foods -Can follow with podiatry on an outpatient basis # Severe hypokalemia ? Corrected per protocol repeat labs ordered for monitoring #Hypertension - Blood pressure controlled, home medications continued with dose adjustment as needed #History of previous right MCA CVA ? With no residual effect #Dyslipidemia As per history patient apparently did develop intolerance to statin therapy #GERD ? On PPI #DVT prophylaxis ?On rivaroxaban Time spent in the patient's overall evaluation,decision-making process, review of diagnostic data, adjustment of management, discussion with other providers, nursing nursing and ancillary staff involved in patient's care documentation, 30 minutes Charges/Coding Visit Charges Inpatient E&M: 42631 Subs Hosp L2
[2023-02-12] MEDS: Metoprolol Tartrate 25 MG Tablet 12.5 MG PO (11:30)
[2023-02-12 12:57] LABS: AST(SGOT) 14 U/L (15-37); Alanine Aminotransfer ALT/SGPT 15 U/L (13-56); Albumin, Serum 1.8 g/dL (3.2-5.0); Alkaline Phosphatase 57 U/L (45-117); Bilirubin, Direct < 0.05 mg/dL (0.00-0.30); Globulin 4.2 g/dL (2.2-4.2); Magnesium 1.9 mg/dL (1.6-2.6); Phosphorus 2.5 mg/dL (2.5-4.9); T4 Free Direct 1.38 ng/dL (0.76-1.46); Thyroid Stim Hormone (TSH) 0.86 uIU/mL (0.358-3.74)
--- NOTE | 2023-02-12 13:33 | CASEMGMT ---
Discharge Planning W updated on discharge date. Jessi Tyler
[2023-02-12] MEDS: Magnesium Sulfate 4gm/100mL 4 GM/100 ML IV.SOLN. IV (16:16)
[2023-02-12] MEDS: Metoprolol Tartrate 5 MG/5 ML Vial IV (18:49)
[2023-02-12] MEDS: Rivaroxaban 20 MG Tablet PO (20:52)
[2023-02-12] MEDS: Metoprolol Tartrate 50 MG Tablet PO (21:01)
[2023-02-12] MEDS: Niacin SA 500 MG Tablet PO (21:01)
[2023-02-13 04:00] VITALS: BP 157/86; PULSE 70; RESP 16; TEMP 36.4; O2SAT 94
[2023-02-13] MEDS: FLUOROMETHOLONE 1 DROP BOTTLE 1 DRP EACH EYE (05:37)
[2023-02-13] MEDS: Acetaminophen 500 MG Tablet 1000 MG PO ×2 (05:37→13:52)
--- NOTE | 2023-02-13 07:06 | PN_ITS ---
Subjective Subjective Patient was seen this morning for follow up on right foot/ankle. She relates there is minimal pain. She is able to move toes, foot and ankle with no pain. She is able to walk on foot/ankle with assistance from walker. She has no new complaints. No complaints of f/c/n/v. Objective Data Objective Data Vital Signs: Vital Signs Temp Pulse Resp BP Pulse Ox O2 Del Method O2 Flow Rate 97.5 F L 70 16 157/86 H 94 Room Air 2 02/13/23 04:00 02/13/23 04:00 02/13/23 04:00 02/13/23 04:00 02/13/23 04:00 02/13/23 04:00 02/12/23 14:12 Oxygen Flow Rate (L/min) 2 Oxygen Delivery Method Room Air Weight: 51.4 kg Body Mass Index (BMI) 21.4 Intake & Output: Intake and Output for Last 24 Hours 02/11/23 02/12/23 02/13/23 23:59 23:59 23:59 Intake Total 720 / 720 400 / 400 Output Total 600 / 600 Balance 120 / 120 400 / 400 Lab / Micro Data Result Diagrams: 02/12/23 05:33 02/12/23 05:33 Labs: Laboratory Results - last 24 hr 02/12/23 05:33: Phosphorus 2.5, Magnesium 1.9, Total Bilirubin 0.30, Direct Bilirubin < 0.05, AST 14 L, ALT 15, Alkaline Phosphatase 57, Total Protein 6.0 L , Albumin 1.8 L, Globulin 4.2, TSH 0.86, Free T4 1.38 Micro: Microbiology 02/08/23 16:05 Stool Enteric Bacteriology - Final 02/08/23 16:05 Stool C. difficile DNA Amplification - Final Physical Exam Const alert, oriented x3 and no apparent distress General Appearance: cooperative Extremity normal capillary refill, no calf tenderness and no pedal edema Extremity Narrative: Right foot/ankle - there are no open lesions, no erythema, no cellulitis, no necrosis, no tissue break down - CFT < 2 seconds to all toes, there is no POP or pain on ROM to the foot or ankle. 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 Assessment & Plan Assessment/Plan (1) Foot pain, right: (2) Inability to walk: (3) Essential hypertension: (4) HLD (hyperlipidemia): PLAN: Plan Re-evaluation of right foot/ankle. Reviewed previous right ankle xrays and labs. Findings not c/w infection to the right foot or ankle at this time. Her pain could have been due to DJD or possible gout. At this time it appears to be continued improvement. She is on Prednisone. Continue to monitor for continued improvement, however if symptoms worsen then consider MRI for further evaluation. Patient to follow up with podiatry as outpatient in 1 week, sooner if needed.
[2023-02-13 07:32] VITALS: O2SAT 92
[2023-02-13 08:18] VITALS: BP 138/73; PULSE 87
[2023-02-13] MEDS: Budesonide 3 MG CAPSULE.EC 6 MG PO (08:18)
[2023-02-13] MEDS: predniSONE 20 MG Tablet PO (08:18)
[2023-02-13] MEDS: Metoprolol Tartrate 50 MG Tablet PO (08:18)
[2023-02-13] MEDS: Losartan Potassium 50 MG Tablet PO (08:18)
[2023-02-13] MEDS: Potassium Chloride Oral Tablet 20 MEQ PO (08:19)
[2023-02-13] MEDS: Na Biphos/Potassium Phosphate PACKET 1 PACKET PO (08:21)
[2023-02-13 09:53] VITALS: BP 131/66; PULSE 86
[2023-02-13] MEDS: Metoprolol Tartrate 25 MG Tablet PO (09:53)
[2023-02-13 10:00] VITALS: BP 131/66; PULSE 87; RESP 18; TEMP 36.4; O2SAT 95
--- NOTE | 2023-02-13 13:31 | PCM.TXEXTCAR ---
Diet Diet Order/Speech Therapy: 02/08/23 13:54 Diet: Regular - General Food consistency:: Regular Liquid Consistency:: Regular/Thin Diet Comments: With snacks three times daily as tolerated Routine Orders/Code Status Suppository Type: Dulcolax 10mg Suppository Frequency: Daily PRN Routine Lab Work: BMP Code Status: DNRCC-A (You will be discharged on potassium, it is recommended to check a BMP in 2 to 3 days to monitor potassium level) Therapies Physical Therapy: Eval and Treat Occupational Therapy: Eval and Treat Problem/Diagnosis (1) Foot pain, right: Status: Acute Code(s): M79.671 - Pain in right foot (2) Inability to walk: Status: Acute Code(s): R26.2 - Difficulty in walking, not elsewhere classified (3) Essential hypertension: Status: Chronic Code(s): I10 - Essential (primary) hypertension (4) HLD (hyperlipidemia): Status: Chronic Code(s): E78.5 - Hyperlipidemia, unspecified Plan #afib w/ RVR- RVR resolved #Intermittent diarrhea -lymphocytic versus collagenous colitis #Right ankle swelling presumed to be 2/2 gout, unsuccessful tap of ankle #Severe hypokalemia- resolved #Hypertension #History of previous right MCA CVA #Dyslipidemia #GERD Patient is an 87-year-old lady with history of atrial fibrillation, chronic diarrhea, hypertension, history of right MCA CVA who presented to [facility] 02/08/2023 with worsening diarrhea and right ankle pain. She has had diarrhea since October that previously responded to steroids given to her for Planter fasciitis so she was placed on budesonide by GI and this significantly helped. In the week leading up to admission however she had recurrence of her diarrhea and also had difficulty walking due to pain and swelling in her right ankle. She was brought to the ED and had severe hypokalemia. X-ray demonstrated no soft tissue swelling or fracture of her ankle and she was admitted for further management. She is continued on budesonide and she was given additional prednisone on top of that to help with what was presumed to be gout of her right ankle which helped her diarrhea as well as her pain and swelling in her ankle significantly. She was seen by podiatry who attempted to tap her ankle but they were unable to get adequate fluid sample so she was treated empirically and it was not felt that it was infectious in etiology. Her GI and C. difficile panel were negative and overall she improved. On the day of discharge she did have an episode of diarrhea but after discussing with her daughter she had stopped taking the niacin and other supplements with the diarrhea and niacin may have exacerbated underlying condition. No further episodes after a.m. diarrhea. Diarrhea since October for which she is now following with GI and is on budesonide. She had enteric panel and C. difficile 02/08 which were negative. COVID-negative. Fecal lactoferrin 2 months ago was positive. Has otherwise undergone extensive outpatient work-up. WBC count elevated but had escalation of steroids which is likely the culprit. Further outpatient work-up and management given chronicity is appropriate and she already has an appointment with Dr. Wood next month and PCP 02/21. Hospital course complicated by A-fib with RVR where she received Cardizem boluses twice and her beta-vy was uptitrated, improved with up titration of beta-vy and her losartan was decreased as this was titrated to avoid problems with blood pressure. She had no breathing complaints and did not appear fluid overloaded- prior to d/c her admission xray was viewed which showed possible congestion but given lack of cardiac concerns and pt does not appear overloaded recommend outpatient echo if any further concerns and follow up with cardiology. Most recent echo 02/17/22 (read documented in most recent cardiology note) w/ EF 60-65%, no segmental abnormalities, unable to assess diastolic function. Hydrochlorothiazide was also stopped due to her concern for gout. She overall was feeling fairly well on day of discharge and this was all discussed with her and I called and spoke with her daughter at length as well. Discharge instructions as followed: DISCHARGE INSTRUCTIONS PLEASE READ *Please take this with you to your next doctors appointment* -You will finish prednisone course for presumed gout. Please take prednisone 20 mg for 3 more days followed by 10 mg for 3 days and then discontinue. It is recommended to follow low purine diet and avoid triggering foods -follow up with podiatry as outpatient in 1 week, sooner if needed -You will need to follow-up with Dr. Wood with GI in his office upon discharge, you have an appointment scheduled March 29. If there are any questions or concerns about appointment date/time please contact his office (ph. [phone]) -He was indicated that you are no longer taking her niacin or supplements these have been discontinued -You will be discharged on potassium, it is recommended to check a BMP in 2 to 3 days to monitor potassium level -Your hydrochlorothiazide has been discontinued due to concern for gout flare -In order to optimize your medication for your heart rate your metoprolol was increased to 75 twice daily and your losartan was decreased to 50 mg daily. It is recommended that you follow-up with your heart doctor upon discharge, given your atrial fibrillation with last echocardiogram was 1 year ago, repeat can be preformed on an outpatient basis with your PCP or amusement centre manager if deemed appropriate -Please call your primary care provider's office upon discharge to schedule a hospital follow up within 1 week. -For any concerning signs or symptoms please call 911 or proceed to the nearest emergency department Allergies/Procedures Done in Hospital Allergies clindamycin Allergy (Verified 02/08/23 10:32) Other hyoscyamine Allergy (Verified 02/08/23 10:32) Other Penicillins Allergy (Verified 02/08/23 10:32) Hives Bcxkexh-BRE-SuJ Reductase Inhibitor [Cbmpusz-Siy-Pno Reductase Inhibitor] Allergy (Verified 02/08/23 10:32) Pain in joints glucosamine Adverse Reaction (Verified 02/08/23 10:32) Other Type of Care/Length of Stay Estimated LOS: Convalescent Care Less Than 30 days Type of Care Needed: Skilled Rehab Potential: Good Prognosis: Good Additional Orders/Day of Discharge Day of Discharge: 02/13/23 Dietary and Speech Recommendations Dietitian Recommendations/Changes: continue regular diet; ONS if PO intake at meals fails, pt declines at this time. Discharge Plan Admission Admit Date/Time: 02/08/23 12:56 Primary Reason for Your Visit: diarrhea and ankle pain/swelling Attending Provider: Jody Moffett Primary Care Provider: Deepika Fabian Consulting Providers: Emanuel Rod ; Himanshu Reynolds Instructions Patient Instructions: Eating to Prevent Gout, ED Gout, ED Gout Diet Additional Instructions / Restrictions: DISCHARGE INSTRUCTIONS PLEASE READ *Please take this with you to your next doctors appointment* -You will finish prednisone course for presumed gout. Please take prednisone 20 mg for 3 more days followed by 10 mg for 3 days and then discontinue. It is recommended to follow low purine diet and avoid triggering foods -follow up with podiatry as outpatient in 1 week, sooner if needed -You will need to follow-up with Dr. Wood with GI in his office upon discharge, you have an appointment scheduled March 29. If there are any questions or concerns about appointment date/time please contact his office (jennifer. [phone]) -He was indicated that you are no longer taking her niacin or supplements these have been discontinued -You will be discharged on potassium, it is recommended to check a BMP in 2 to 3 days to monitor potassium level -Your hydrochlorothiazide has been discontinued due to concern for gout flare -In order to optimize your medication for your heart rate your metoprolol was increased to 75 twice daily and your losartan was decreased to 50 mg daily. It is recommended that you follow-up with your heart doctor upon discharge, given your atrial fibrillation with last echocardiogram was 1 year ago, repeat can be preformed on an outpatient basis with your PCP or amusement centre manager if deemed appropriate -Please call your primary care provider's office upon discharge to schedule a hospital follow up within 1 week. -For any concerning signs or symptoms please call 911 or proceed to the nearest emergency department Discharge Orders/Prescriptions Prescriptions: New prednisone 20 mg Tablet See Taper PO BREAKFAST Qty: 0 0RF Taper: Prednisone Taper 20 mg WITH BREAKFAST for 3 Days and 0 Hour 10 mg WITH BREAKFAST for 3 Days and 0 Hour potassium chloride [Klor-Con M20] 20 mEq Tablet,Er Particles/Crystals 20 meq PO DAILY 14 Days Qty: 0 0RF Continued fluorometholone 0.1 % drops,suspension 1 drp ophthalmic (eye) BID PRN (Reason: Dry Eyes) lorazepam 0.5 mg tablet 0.25 mg PO PRN PRN (Reason: anxiety) omeprazole 20 mg capsule,delayed release(DR/EC) 20 mg PO PRN PRN (Reason: .) budesonide 3 mg capsule,delayed,extend.release 6 mg PO DAILY Label Comments: Does not take regularly Xarelto 20 mg tablet 20 mg PO QPM Rx Instructions: must administer with evening meal Changed losartan 100 mg tablet 50 mg PO DAILY 30 Days Qty: 15 0RF metoprolol tartrate 25 mg tablet 75 mg PO BID 30 Days Qty: 0 0RF Discontinued niacin 500 mg tablet 500 mg PO QHS Label Comments: supplement coenzyme Q10 [Co Q-10] 100 mg capsule 100 mg PO DAILY Label Comments: supplement vitamin B complex Tablet 1 tab PO DAILY Label Comments: supplement red yeast rice 600 mg tablet 600 mg PO BID Label Comments: suplement Rx Instructions: give with meal/snack cinnamon bark 500 mg capsule 500 mg PO DAILY Label Comments: supplement magnesium oxide 400 mg (241.3 mg magnesium) tablet 400 mg PO DAILY calcium carbonate 600 mg calcium (1,500 mg) tablet 600 mg PO DAILY famotidine 20 mg tablet 20 mg PO DAILY PRN (Reason: GERD) Label Comments: does not take anymore prednisone 10 mg tablet See Rx Instructions .ROUTE .COMPLEX Label Comments: Not taking right now Rx Instructions: 40mg daily x 1 week, then 30mg daily x 1 week, then 20mg daily x 1 week, then 10mg daily x 1 week doxycycline monohydrate 100 mg capsule 100 mg PO BID Label Comments: completed hydrochlorothiazide 25 mg tablet 25 mg PO DAILY Referrals / Follow Up: Deepika Fabian MD [Primary Care Provider] - Within 1 Week Vamsi Segal DPM [Med Staff - Active Staff] - Within 1 Week Jb Wood DO [Med Staff - Active Staff] - Within 1 Month Disposition Disposition (needs filled in before D/C Order can be placed): Care Home Facility
--- NOTE | 2023-02-13 13:47 | CASEMGMT ---
SW notified [place] that patient will be coming today. Traci Roach PHP [employer] DEV[employer]
--- NOTE | 2023-02-13 14:05 | DS.PCM_ITS ---
Providers Date of Admission: 02/08/23 Date of Discharge: 02/13/23 Primary Care Physician: Dr. Deepika Fabian MD Consultations 02/10/23 09:47 Consult: Podiatry Routine Consulting Provider: Emanuel Rod Reason for Consult: Right ankle swelling EMERGENT Consult: No MD Notified: Yes Date Notified: 02/10/23 Time Notified: 09:48 Method of Notification: Text Reason For Visit: DIARRHEA, HYPOKALEMIA Diagnosis Discharge Diagnosis (1) Foot pain, right: Status: Acute Code(s): M79.671 - Pain in right foot (2) Inability to walk: Status: Acute Code(s): R26.2 - Difficulty in walking, not elsewhere classified (3) Essential hypertension: Status: Chronic Code(s): I10 - Essential (primary) hypertension (4) HLD (hyperlipidemia): Status: Chronic Code(s): E78.5 - Hyperlipidemia, unspecified Plan #afib w/ RVR- RVR resolved #Intermittent diarrhea -lymphocytic versus collagenous colitis #Right ankle swelling presumed to be 2/2 gout, unsuccessful tap of ankle #Severe hypokalemia- resolved #Hypertension #History of previous right MCA CVA #Dyslipidemia #GERD Medications at Discharge Home Medications fluorometholone 0.1 % eye drops,suspension 1 drp ophthalmic (eye) BID PRN Dry Eyes 03/02/22 budesonide 3 mg capsule,delayed,extended release 6 mg PO DAILY . 02/08/23 lorazepam 0.5 mg tablet 0.25 mg PO PRN PRN anxiety 02/08/23 omeprazole 20 mg capsule,delayed release 20 mg PO PRN PRN . 02/08/23 rivaroxaban 20 mg tablet (Xarelto) 20 mg PO QPM . 02/08/23 losartan 100 mg tablet 50 mg PO DAILY . 30 days #15 tabs 02/13/23 metoprolol tartrate 25 mg tablet 75 mg PO BID . 30 days #0 tabs 02/13/23 potassium chloride 20 mEq tablet,extended release(part/cryst) (Klor-Con M) 20 meq PO DAILY 14 days #0 tabs 02/13/23 prednisone 20 mg tablet See Taper PO BREAKFAST #0 tabs 02/13/23 Hospital Course Summary of Care Provided Minutes Spent on Discharge: 45 Hospital Course: Patient is an 87-year-old lady with history of atrial fibrillation, chronic diarrhea, hypertension, history of right MCA CVA who presented to [facility] 02/08/2023 with worsening diarrhea and right ankle pain. She has had diarrhea since October that previously responded to steroids given to her for Planter fasciitis so she was placed on budesonide by GI and this significantly helped. In the week leading up to admission however she had recurrence of her diarrhea and also had difficulty walking due to pain and swelling in her right ankle. She was brought to the ED and had severe hypokalemia. X-ray demonstrated no soft tissue swelling or fracture of her ankle and she was admitted for further management. She is continued on bude sonide and she was given additional prednisone on top of that to help with what was presumed to be gout of her right ankle which helped her diarrhea as well as her pain and swelling in her ankle significantly. She was seen by podiatry who attempted to tap her ankle but they were unable to get adequate fluid sample so she was treated empirically and it was not felt that it was infectious in etiolo gy. Her GI and C. difficile panel were negative and overall she improved. On the day of discharge she did have an episode of diarrhea but after discussing with her daughter she had stopped taking the niacin and other supplements with the diarrhea and niacin may have exacerbated underlying condition. No further episodes after a.m. diarrhea. Diarrhea since October for which she is now following with GI and is on budesonide. She had enteric panel and C. difficile 02/08 which were negative. COVID-negative. Fecal lactoferrin 2 months ago was positive. Has otherwise undergone extensive outpatient work-up. WBC count elevated but had escalation of steroids which is likely the culprit. Further outpatient work-up and management given chronicity is appropriate and she already has an appointment with Dr. Wood next month and PCP 02/21. Hospital course complicated by A-fib with RVR where she received Cardizem boluses twice and her beta-vy was uptitrated, improved with up titration of beta-vy and her losartan was decreased as this was titrated to avoid problems with blood pressure. She had no breathing complaints and did not appear fluid overloaded- prior to d/c her admission xray was viewed which showed possible congestion but given lack of cardiac concerns and pt does not appear overloaded recommend outpatient echo if any further concerns and follow up with cardiology. Most recent echo 5/13/22 (read documented in most recent cardiology note) w/ EF 60- 65%, no segmental abnormalities, unable to assess diastolic function. Hydrochlorothiazide was also stopped due to her concern for gout. She overall was feeling fairly well on day of discharge and this was all discussed with her and I called and spoke with her daughter at length as well. Discharge instructions as followed: DISCHARGE INSTRUCTIONS PLEASE READ *Please take this with you to your next doctors appointment* -You will finish prednisone course for presumed gout. Please take prednisone 20 mg for 3 more days followed by 10 mg for 3 days and then discontinue. It is recommended to follow low purine diet and avoid triggering foods -follow up with podiatry as outpatient in 1 week, sooner if needed -You will need to follow-up with Dr. Wood with GI in his office upon discharge, you have an appointment scheduled March 29. If there are any questions or concerns about appointment date/time please contact his office (ph. [phone]) -He was indicated that you are no longer taking her niacin or supplements these have been discontinued -You will be discharged on potassium, it is recommended to check a BMP in 2 to 3 days to monitor potassium level -Your hydrochlorothiazide has been discontinued due to concern for gout flare -In order to optimize your medication for your heart rate your metoprolol was increased to 75 twice daily and your losartan was decreased to 50 mg daily. It is recommended that you follow-up with your heart doctor upon discharge, given your atrial fibrillation with last echocardiogram was 1 year ago, repeat can be preformed on an outpatient basis with your PCP or moisture conditioner operator if deemed appropriate -Please call your primary care provider's office upon discharge to schedule a hospital follow up within 1 week. -For any concerning signs or symptoms please call 911 or proceed to the nearest emergency department Physical Exam Narrative General: Alert, oriented, no apparent distress HEENT: Atraumatic, normocephalic Eyes: Anicteric, normal conjunctiva, extraocular movements grossly intact Neck: Supple Respiratory: No overt crackles or wheezes, normal respiratory effort Cardiovascular: Irregularly irregular GI: Soft, nontender, nondistended Extremities: No edema Musculoskeletal: Moving all extremities Neuro: No overt focal neurological deficits Skin: No rashes appreciated Psych: Cooperative Weight / BMI Weight Weight: 51.4 kg Body Mass Index (BMI) 21.4 ABG / Lab / Microbiology Data Result Diagrams: 02/12/23 05:33 02/12/23 05:33 Microbiology: Microbiology 02/13/23 11:25 Nasal Secretion SARS-CoV-2 Antigen (Rapid) - Final 02/08/23 16:05 Stool Enteric Bacteriology - Final 02/08/23 16:05 Stool C. difficile DNA Amplification - Final Meaningful Use Info Meaningful Use Diagnoses (Choose all that apply): None applicable Discharge Plan Admission Admit Date/Time: 02/08/23 12:56 Primary Reason for Your Visit: diarrhea and ankle pain/swelling Attending Provider: Jody Moffett Primary Care Provider: Deepika Fabian Consulting Providers: Emanuel Rod ; Himanshu Reynolds Instructions Patient Instructions: Eating to Prevent Gout, ED Gout, ED Gout Diet Additional Instructions / Restrictions: DISCHARGE INSTRUCTIONS PLEASE READ *Please take this with you to your next doctors appointment* -You will finish prednisone course for presumed gout. Please take prednisone 20 mg for 3 more days followed by 10 mg for 3 days and then discontinue. It is recommended to follow low purine diet and avoid triggering foods -follow up with podiatry as outpatient in 1 week, sooner if needed -You will need to follow-up with Dr. Wood with GI in his office upon discharge, you have an appointment scheduled March 29. If there are any questions or concerns about appointment date/time please contact his office (ph. [phone]) -He was indicated that you are no longer taking her niacin or supplements these have been discontinued -You will be discharged on potassium, it is recommended to check a BMP in 2 to 3 days to monitor potassium level -Your hydrochlorothiazide has been discontinued due to concern for gout flare -In order to optimize your medication for your heart rate your metoprolol was increased to 75 twice daily and your losartan was decreased to 50 mg daily. It is recommended that you follow-up with your heart doctor upon discharge, given your atrial fibrillation with last echocardiogram was 1 year ago, repeat can be preformed on an outpatient basis with your PCP or moisture conditioner operator if deemed appropriate -Please call your primary care provider's office upon discharge to schedule a hospital follow up within 1 week. -For any concerning signs or symptoms please call 911 or proceed to the nearest emergency department Discharge Orders/Prescriptions Prescriptions: New prednisone 20 mg Tablet See Taper PO BREAKFAST Qty: 0 0RF Taper: Prednisone Taper 20 mg WITH BREAKFAST for 3 Days and 0 Hour 10 mg WITH BREAKFAST for 3 Days and 0 Hour potassium chloride [Klor-Con M20] 20 mEq Tablet,Er Particles/Crystals 20 meq PO DAILY 14 Days Qty: 0 0RF Continued fluorometholone 0.1 % drops,suspension 1 drp ophthalmic (eye) BID PRN (Reason: Dry Eyes) lorazepam 0.5 mg tablet 0.25 mg PO PRN PRN (Reason: anxiety) omeprazole 20 mg capsule,delayed release(DR/EC) 20 mg PO PRN PRN (Reason: .) budesonide 3 mg capsule,delayed,extend.release 6 mg PO DAILY Label Comments: Does not take regularly Xarelto 20 mg tablet 20 mg PO QPM Rx Instructions: must administer with evening meal Changed losartan 100 mg tablet 50 mg PO DAILY 30 Days Qty: 15 0RF metoprolol tartrate 25 mg tablet 75 mg PO BID 30 Days Qty: 0 0RF Discontinued niacin 500 mg tablet 500 mg PO QHS Label Comments: supplement coenzyme Q10 [Co Q-10] 100 mg capsule 100 mg PO DAILY Label Comments: supplement vitamin B complex Tablet 1 tab PO DAILY Label Comments: supplement red yeast rice 600 mg tablet 600 mg PO BID Label Comments: suplement Rx Instructions: give with meal/snack cinnamon bark 500 mg capsule 500 mg PO DAILY Label Comments: supplement magnesium oxide 400 mg (241.3 mg magnesium) tablet 400 mg PO DAILY calcium carbonate 600 mg calcium (1,500 mg) tablet 600 mg PO DAILY famotidine 20 mg tablet 20 mg PO DAILY PRN (Reason: GERD) Label Comments: does not take anymore prednisone 10 mg tablet See Rx Instructions .ROUTE .COMPLEX Label Comments: Not taking right now Rx Instructions: 40mg daily x 1 week, then 30mg daily x 1 week, then 20mg daily x 1 week, then 10mg daily x 1 week doxycycline monohydrate 100 mg capsule 100 mg PO BID Label Comments: completed hydrochlorothiazide 25 mg tablet 25 mg PO DAILY Referrals / Follow Up: Deepika Fabian MD [Primary Care Provider] - Within 1 Week Vamsi Segal DPM [Med Staff - Active Staff] - Within 1 Week Jb Wood DO [Med Staff - Active Staff] - Within 1 Month Disposition Disposition (needs filled in before D/C Order can be placed): Senior Living Facility Charges/Coding Visit Charges Inpatient E&M: 93431 Disch Hosp >30min
--- NOTE | 2023-02-13 14:17 | CASEMGMT ---
SW completed convalescent on HENS. Traci Roach CHEMICAL INSTRUMENTATION OFFICER RCP
--- NOTE | 2023-02-13 14:29 | CASEMGMT ---
[facility] scheduled to pickup patient by wc at 4:30p. Discharge orders, signed med list, covid results, and cotton picker time sent to [facility]. Patients daughter, Tamie, was notified of pickup time. Jessi Tyler
--- NOTE | 2023-02-13 14:42 | PHA.DC.MR ---
Pharmacy Service has performed discharge medication reconciliation for this patient. The patient's discharge medication list was reviewed for discrepancies and discrepancies were resolved. Home Medications fluorometholone 0.1 % eye drops,suspension 1 drp ophthalmic (eye) BID PRN Dry Eyes 03/02/22 budesonide 3 mg capsule,delayed,extended release 6 mg PO DAILY . 02/08/23 lorazepam 0.5 mg tablet 0.25 mg PO PRN PRN anxiety 02/08/23 omeprazole 20 mg capsule,delayed release 20 mg PO PRN PRN . 02/08/23 rivaroxaban 20 mg tablet (Xarelto) 20 mg PO QPM . 02/08/23 losartan 100 mg tablet 50 mg PO DAILY . 30 days #15 tabs 02/13/23 metoprolol tartrate 25 mg tablet 75 mg PO BID . 30 days #0 tabs 02/13/23 potassium chloride 20 mEq tablet,extended release(part/cryst) (Klor-Con M) 20 meq PO DAILY 14 days #0 tabs 02/13/23 prednisone 20 mg tablet See Taper PO BREAKFAST #0 tabs 02/13/23
[2023-02-13 15:14] VITALS: BP 150/98; PULSE 96; RESP 18; TEMP 36.9; O2SAT 94
== END 2023-02-13 17:13 | disposition skilled nursing facility (03) | DRG 554 ==
LOC: ED 13:05 → PCU 13:21
PROVIDERS: Admitting Provider Internal Medicine; Emergency Provider Emergency Medicine; PCP Internal Medicine; Visit Provider Internal Medicine
DX: M10.071 Idiopathic gout, right ankle and foot (principal); E78.5 Hyperlipidemia, unspecified; I48.0 Paroxysmal atrial fibrillation; E87.6 Hypokalemia; E86.0 Dehydration; K52.831 Collagenous colitis; I10 Essential (primary) hypertension; K21.9 Gastro-esophageal reflux disease without esophagitis; R26.2 Difficulty in walking, not elsewhere classified; K52.832 Lymphocytic colitis; Z66 Do not resuscitate; Z79.01 Long term (current) use of anticoagulants; Z79.52 Long term (current) use of systemic steroids; Z79.899 Other long term (current) drug therapy; Z86.73 Personal history of transient ischemic attack (TIA), and cerebral infarction without residual deficits
CPT/HCPCS: 36415; 71045; 73610; 80048; 80053; 80076; 81001; 83735; 84100; 84439; 84443; 84550; 85025; 87493; 87506; 87811; 93005; 97110; 97116; 97162; 97166; 97530; 97535; 97802; 99284; J7030; A4216; J1940

== ENCOUNTER → 2023-03-01 | Outpatient (CLI) | payer MEDICARE, OTHER, SELFPAY ==
[2023-03-01 17:08] LABS: Ferritin 92 ng/mL (8-252); Iron 27 ug/dL (50-170); Iron Binding Capacity,Total 259 ug/dL (250-450); Magnesium 2.1 mg/dL (1.6-2.6); PERCENT IRON SATURATION 10.4 % (15.0-55.0)
== END | disposition home or self-care (01) ==
LOC: BIMLAB 15:06
PROVIDERS: PCP Internal Medicine; Referring Provider Internal Medicine; Visit Provider Internal Medicine
DX: M12.9 Arthropathy, unspecified (principal); D64.9 Anemia, unspecified; R19.7 Diarrhea, unspecified; E55.9 Vitamin D deficiency, unspecified
CPT/HCPCS: 36415; 82306; 82728; 83540; 83550; 83735

== ENCOUNTER → 2023-03-15 | Outpatient (CLI) | payer MEDICARE, OTHER, SELFPAY ==
[2023-03-15 15:41] LABS: Mucous, Urine 0 SEEN /hpf (<or=2+); Squamous Epithelial Cells - UA 0 SEEN /hpf (5-10)
[2023-03-15 17:05] LABS: Color, Urine Yellow (Yellow); Glucose, Dipstick Normal (Normal); Ketone-Dipstick Negative (Negative); Leukocyte Esterase-Dipstick 500 /ul (Negative); Nitrite-Dipstick Positive (Negative); Occult Blood-Urine 25 /ul (Negative); Protein-Dipstick 15 mg/dl (Negative); Urine Bilirubin Dipstick Negative (Negative); Urine Clarity Sl. Cloudy (Clear); Urine Urobilinogen Normal (Normal)
[2023-03-15 17:21] LABS: White Blood Cells 25-50 SEEN /hpf (0-5)
[2023-03-15 17:22] LABS: Bacteria 1+ /hpf (None Seen); Red Blood Cells-Urine 0-5 SEEN /hpf (0-5)
== END | disposition home or self-care (01) ==
LOC: BIMLAB 15:37
PROVIDERS: PCP Internal Medicine; Visit Provider Internal Medicine
DX: R30.0 Dysuria (principal); R32 Unspecified urinary incontinence
CPT/HCPCS: 81001; 87086; 87088; 87186

== ENCOUNTER → 2023-04-24 | Outpatient (CLI) | payer MEDICARE, OTHER, SELFPAY ==
--- NOTE | 2023-04-24 11:01 | US_ITS ---
INDICATION: incomplete emptying EXAMINATION: Ultrasound US Post Void Residual Urine/Bladder TECHNIQUE: Hoskins scale and color doppler imaging was performed of the urinary bladder. COMPARISON: CT abdomen and pelvis November 10, 2022 FINDINGS: No stones, masses, or wall thickening. Bilateral ureteral jets were observed. Bladder wall thickness is 3.4 mm. Pre-void volume is 126.31 mL. Post-void volume is 117.24 mL. Post-void residual is 92.5%. US/Post Void Residual Bladder IMPRESSION: Significant urinary bladder retention postvoiding. Electronically Signed: Siddhartha Mathis MD at 12:15 EDT Reading Location ID and State: [id number] / Unknown , Service support ,
== END | disposition home or self-care (01) ==
LOC: US 11:00
PROVIDERS: PCP Internal Medicine; Referring Provider Internal Medicine; Visit Provider Internal Medicine
DX: R33.9 Retention of urine, unspecified (principal)
CPT/HCPCS: 51798

== ENCOUNTER → 2023-06-27 | Outpatient (CLI) | payer MEDICARE, OTHER, SELFPAY ==
[2023-06-27 13:18] LABS: Mucous, Urine 0 SEEN /hpf (<or=2+)
[2023-06-27 15:25] LABS: Color, Urine Yellow (Yellow); Glucose, Dipstick Normal (Normal); Ketone-Dipstick Negative (Negative); Leukocyte Esterase-Dipstick 500 /ul (Negative); Nitrite-Dipstick Negative (Negative); Occult Blood-Urine 25 /ul (Negative); Protein-Dipstick 15 mg/dl (Negative); Urine Bilirubin Dipstick Negative (Negative); Urine Clarity Sl. Cloudy (Clear); Urine Urobilinogen Normal (Normal)
[2023-06-27 15:33] LABS: White Blood Cells >100 SEEN /hpf (0-5)
[2023-06-27 15:34] LABS: Red Blood Cells-Urine 0-5 SEEN /hpf (0-5)
[2023-06-27 15:37] LABS: Squamous Epithelial Cells - UA 0-5 SEEN /hpf (5-10)
[2023-06-27 15:38] LABS: Bacteria RARE /hpf (None Seen)
== END | disposition home or self-care (01) ==
LOC: LABSPEC 13:17
PROVIDERS: PCP Internal Medicine; Visit Provider Physician Assistant Surgical
DX: N39.0 Urinary tract infection, site not specified (principal); R30.0 Dysuria
CPT/HCPCS: 81001; 87086; 87088; 87186

== ENCOUNTER → 2023-07-10 | Outpatient (CLI) | payer MEDICARE, OTHER, SELFPAY ==
[2023-07-10 10:06] LABS: Bacteria 0 SEEN /hpf (None Seen); Mucous, Urine 0 SEEN /hpf (<or=2+); Red Blood Cells-Urine 0 SEEN /hpf (0-5); Squamous Epithelial Cells - UA 0 SEEN /hpf (5-10)
[2023-07-10 12:25] LABS: Color, Urine Yellow (Yellow); Glucose, Dipstick Normal (Normal); Ketone-Dipstick Negative (Negative); Leukocyte Esterase-Dipstick 25 /ul (Negative); Nitrite-Dipstick Negative (Negative); Occult Blood-Urine 10 /ul (Negative); Protein-Dipstick Negative (Negative); Urine Bilirubin Dipstick Negative (Negative); Urine Clarity Clear (Clear); Urine Urobilinogen Normal (Normal)
[2023-07-10 12:56] LABS: White Blood Cells 0-5 SEEN /hpf (0-5)
== END | disposition home or self-care (01) ==
LOC: BIMLAB 10:00
PROVIDERS: PCP Internal Medicine; Visit Provider Internal Medicine
DX: R30.0 Dysuria (principal)
CPT/HCPCS: 81001; 87086

== ENCOUNTER 2023-09-29 01:35 | Emergency (ER) | payer MEDICARE, OTHER, SELFPAY ==
[2023-09-29 01:36] VITALS: BP 132/81; PULSE 77; RESP 16; TEMP 36.6; O2SAT 96; BMI 20.2
--- NOTE | 2023-09-29 01:53 | EDS_ITS ---
HPI History of Present Illness Chief Complaint: Chest Pain Informant: patient Onset/Context/Timing Onset: Today and Hours (8) Activity at onset: gradual Timing: Continuous Quality: Positive for Stabbing Location: Substernal Worsened By: Nothing Relieved By: Nothing Narrative Narrative: Patient presents with chest pain that began tonight. Patient states it began a little bit after 8 PM tonight (approximately 6 hours prior to arrival). Patient states it came on gradually. Patient states it has been constant. Patient describes it as stabbing. Patient states it is mainly over the substernal area. Patient states nothing makes it better nothing makes it worse. Patient admits to some shortness of breath with the pain. Patient denies any nausea or vomiting. Patient denies any diaphoresis. Patient denies any cough or fever. CVD Risk Factors: Positive for Hypertension, Hypercholesterolemia and Family History 1' </=55; Negative for Diabetes or Smoking PE Risk Factors: Negative for Recent Travel/Surgery, Recent Immobilization, Prior DVT or PE, Cancer or OCP + Smoking + >/=35 PFSH PFSH Medical History Abrasion of right upper back excluding scapular region Anxiety Arthritis involving multiple sites Cellulitis of mid back region CVA (cerebral vascular accident) (02/15/22) Essential hypertension GERD (gastroesophageal reflux disease) HLD (hyperlipidemia) Longstanding persistent atrial fibrillation Home Medications fluorometholone 0.1 % eye drops,suspension 1 drp ophthalmic (eye) BID PRN Dry Eyes 03/02/22 [History Last Taken Unknown] lorazepam 0.5 mg tablet 0.25 mg PO PRN PRN anxiety 02/08/23 [History Last Taken Unknown] budesonide 3 mg capsule,delayed,extended release 6 mg (2 x 3 mg) PO DAILY . #60 ea 03/02/23 [Rx Last Taken Unknown] metoprolol tartrate 25 mg tablet 37.5 mg (1.5 x 25 mg) PO BID . #270 tabs 04/08 02/27 [Rx Last Taken Unknown] cholecalciferol (vitamin D3) 25 mcg (1,000 unit) tablet 25 mcg PO DAILY 05/08/23 [History Last Taken Unknown] cyanocobalamin (vitamin B-12) 1,000 mcg tablet 1,000 mcg PO DAILY 05/08/23 [History Last Taken Unknown] ferrous sulfate 325 mg (65 mg iron) tablet (Feosol) 325 mg PO DAILY 05/08/23 [History Last Taken Unknown] vibegron 75 mg tablet (Gemtesa) 75 mg PO DAILY 07/10/23 [History Last Taken Unknown] losartan 100 mg tablet 100 mg PO DAILY #90 tabs 07/30/23 [Rx Last Taken Unknown] amlodipine 2.5 mg tablet 2.5 mg PO DAILY #90 tabs 07/31/23 [Rx Last Taken Unknown] glycerin-mineral oil-polycarbophil vaginal gel (Replens vaginal gel) 1 ea vaginal DAILY #35 grams 07/31/23 [Rx Last Taken Unknown] rivaroxaban 20 mg tablet (Xarelto) 20 mg PO QPM . #90 tabs 08/23/23 [Rx Last Taken Unknown] Allergy/AdvReac Type Severity Reaction Status Date / Time clindamycin Allergy Other Verified 09/29/23 01:36 hyoscyamine Allergy Other Verified 09/29/23 01:36 Penicillins Allergy Hives Verified 09/29/23 01:36 Ptpffoo-RZE-YsH Reductase Allergy Pain in Verified 09/29/23 01:36 Inhibitor joints [Zrtsgzg-Iew-Zoj Reductase Inhibitor] glucosamine AdvReac Other Verified 09/29/23 01:36 Family History Father Diabetes Hyperlipemia Mother Cancer stomach Brother Parkinson's disease Surgical History Cataract extraction status Social History household members: none current occupational status: retired 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 pets and animals: Yes pets and animals: cat(s) Smoking Status: Never smoker alcohol intake: current alcohol intake frequency: holidays/special occasions only substance use type: does not use what type of physical activity do you participate in: other details: gardening do you feel safe at home: Yes ROS ROS ED Constitutional Constitutional ED: Denies chills or fever(s) Eyes Eyes: Denies blurry vision or change in vision ENT ENT ED: Denies rhinorrhea or sore throat Cardiovascular Cardiovascular: Reports chest pain; Denies palpitations Respiratory/Chest Respiratory/Chest: Reports dyspnea; Denies cough Gastrointestinal Gastrointestinal: Denies nausea or vomiting Genitourinary Genitourinary ED: Reports dysuria; Denies hematuria Musculoskeletal Musculoskeletal: Denies back pain or neck pain Integumentary Denies abscess or rash Neurologic Neurologic: Denies headache(s) or weakness Allergic/Immunologic Allergic/Immunologic ED: Denies mouth swelling or urticaria EXAM Physical Exam Const Vital Signs: 09/29/23 01:36 09/29/23 01:41 09/29/23 02:14 Temperature 98 F Temperature Source Oral Pulse Rate 77 Respiratory Rate 16 Respiratory Effort Normal Blood Pressure 132/81 H Blood Pressure Mean 98 Pulse Ox 96 97 Oxygen Delivery Method Room Air 09/29/23 02:41 09/29/23 05:09 Temperature Temperature Source Pulse Rate 68 70 Respiratory Rate 18 20 H Respiratory Effort Blood Pressure 142/66 H 146/59 H Blood Pressure Mean 91 88 Pulse Ox 97 97 Oxygen Delivery Method Room Air Room Air Positive well nourished and well developed General Appearance ED: well developed and NAD HEENT Reports moist mucous membranes Neck supple and no JVD Chest Wall palpation of chest normal Resp normal respiratory effort and clear to auscultation bilaterally Cardio regular rate Rhythm: abnormal rhythm irregularly irregular GI soft to palpation, non-tender and non-distended Extremity normal to inspection General Extremety ED: Negative for edema or tenderness General Extremity: Negative for edema Neuro oriented x3, CN's II-XII intact bilaterally and no sensory deficits noted Sensorium / Orientation: awake and alert Motor Exam: strength 5/5 throughout Psych mental status grossly normal Heart Score History: Slightly/Non-Suspicious ECG: Nonspecific Repolarization Age: >/= 65 years Risk Factors: >/= 3 Risk Factors or History of CAD Troponin: </= Normal Limit Score: 5 MDM MDM MDM Narrative Medical decision making narrative: Differential diagnosis includes cardiac dysrhythmia, cardiac ischemia, pneumonia, pneumothorax, musculoskeletal pain, anxiety, GERD, and gastritis. EKG will be obtained to assess for cardiac dysrhythmia and cardiac ischemia. Chest x-ray will be obtained to assess for pneumonia and pneumothorax. CBC will be obtained to assess for leukocytosis and anemia. Basic metabolic profile will be obtained to assess for electrolyte abnormality and renal function. High- sensitivity troponin will be obtained to assess for cardiac ischemia. 2-hour repeat high-sensitivity troponin will be obtained to assess for ongoing cardiac ischemia. Lab Data Lab results narrative: CBC was reviewed and was within normal limits. PT was INR and PTT were reviewed. Pro time was 24.2 and INR is 2.1. PTT was 33.2. Basic metabolic profile was reviewed and was essentially within normal limits. Initial high- sensitivity troponin was reviewed and was normal at 8. 2-hour repeat high- sensitivity troponin was reviewed and was normal at 8. Labs: Laboratory Results - last 24 hr 09/29/23 09/29/23 01:30 04:25 WBC 9.7 RBC 4.34 Hgb 13.6 Hct 43.3 MCV 99.8 H MCH 31.3 MCHC 31.4 L RDW Std Deviation 45.9 H RDW Coeff of Palak 12.5 Plt Count 417 MPV 10.6 Immature Gran % (Auto) 0.400 Neut % (Auto) 58.7 Lymph % (Auto) 27.2 P[place]leton % (Auto) 7.7 Eos % (Auto) 4.8 Baso % (Auto) 1.2 H Absolute Neuts (auto) 5.7 Absolute Lymphs (auto) 2.63 Nucleated RBC % 0 PT 24.2 H INR 2.1 APTT 33.2 Sodium 140 Potassium 4.0 Chloride 106 Carbon Dioxide 29.0 Anion Gap 5 BUN 13 Creatinine 0.74 Estim Creat Clear Calc 30.47 Est GFR (MDRD) Af Amer 96 Est GFR (MDRD) Non-Af 80 BUN/Creatinine Ratio 17.6 Glucose 105 Calcium 9.0 Troponin I High Sens 8 8 Radiography Diagnostic Testing: Clinical Impression(s) from Imaging Studies Chest X-Ray 09/29/23 02:18 IMPRESSION: 1. Stable mild cardiomegaly. 2. No acute cardiopulmonary abnormality. Electronically Signed: Emanuel Meade MD at 3:02 EST , Portable 1 view chest x-ray was obtained. On my independent interpretation, lung álvarez are clear. There is mild cardiomegaly. Bony thorax is normal. There is no acute process noted. Radiologist also interpreted the x-ray and agrees. EKG Initial EKG: Attestation: I personally reviewed and interpreted this EKG as follows: Interpretation: Atrial Fibrillation (79) and Non-Specific ST Changes Comments: EKG was obtained. On my independent interpretation, shows atrial fibrillation with a rate of 79. QRS interval was normal at 116 ms. QTc interval was normal at 477 ms. There is left axis deviation at -43. There are nonspecific ST-T wave changes noted. There is evidence of left ventricular hypertrophy noted. Prior EKG tracings: available for review Prior: Unchanged (02/10/2023) Treatment and Re-Evaluation :: Patient was given aspirin. Patient was given nitroglycerin. Patient was advised of her findings. Patient has a HEART score of 5. Patient was advised that this is moderate risk for acute cardiac event. I recommended admission to the hospital. Case was discussed with the hospitalist. He was in to evaluate the patient. After the hospitalist evaluated the patient, patient changed her mind and wanted to leave. Patient left AGAINST MEDICAL ADVICE. Discharge Plan Triage Chief Complaint: Chest Pain ED Provider: Jin Gibson Dx/Rx/DC Orders Clinical Impression: Chest pain, Longstanding persistent atrial fibrillation, Dyspnea Prescriptions: No Action fluorometholone 0.1 % drops,suspension 1 drp ophthalmic (eye) BID PRN (Reason: Dry Eyes) cholecalciferol (vitamin D3) 25 mcg (1,000 unit) tablet 25 mcg PO DAILY cyanocobalamin (vitamin B-12) 1,000 mcg tablet 1,000 mcg PO DAILY ferrous sulfate [Feosol] 325 mg (65 mg iron) tablet 325 mg PO DAILY Gemtesa 75 mg tablet 75 mg PO DAILY amlodipine 2.5 mg tablet 2.5 mg PO DAILY Qty: 90 0RF lorazepam 0.5 mg tablet 0.25 mg PO PRN PRN (Reason: anxiety) budesonide 3 mg capsule,delayed,extend.release 6 mg PO DAILY Qty: 60 5RF Patient Comments: Does not take regularly metoprolol tartrate 25 mg tablet 37.5 mg PO BID Qty: 270 0RF losartan 100 mg tablet 100 mg PO DAILY Qty: 90 1RF Replens Gel 1 ea vaginal DAILY Qty: 35 0RF Xarelto 20 mg tablet 20 mg PO QPM Qty: 90 1RF Rx Instructions: must administer with evening meal Primary Care Provider: Deepika Fabian Referrals: Deepika Fabian MD [Primary Care Provider] - Disposition Disposition: Against Medical Advice Discharge Date/Time: 09/29/23 06:33
--- NOTE | 2023-09-29 02:10 | EKG12_ITS ---
Test Reason : CP Blood Pressure : / mmHG Vent. Rate : 079 BPM Atrial Rate : 000 BPM P-R Int : 000 ms QRS Dur : 116 ms QT Int : 416 ms P-R-T Axes : 000 -43 072 degrees QTc Int : 477 ms Atrial fibrillation Left axis deviation Minimal voltage criteria for LVH, may be normal variant ( Nic product ) Septal infarct (cited on or before 10-FEB-2023) Abnormal ECG Confirmed by CIARA DUNN, TAYLOR ([id number]), video effects editor AZIZA BALL ([id number]) on 10/09/2023 8:48:08 AM Referred By: ROWDY Confirmed By:TAYLOR URBINA MD
[2023-09-29 02:14] VITALS: O2SAT 97
--- NOTE | 2023-09-29 02:18 | RAD_ITS ---
EXAM: XR CHEST, 1 VIEW CLINICAL INDICATION: chest pain TECHNIQUE: Frontal view of the chest. COMPARISON: 02/11/2023. FINDINGS: LUNGS AND PLEURAL SPACES: Unremarkable. No consolidation or edema. No pneumothorax. No effusion. HEART: Stable mild cardiomegaly. MEDIASTINUM: Central airways and mediastinal contour are unremarkable. BONES/JOINTS: Unremarkable. No acute fracture. SOFT TISSUES: Unremarkable. RAD/Chest 1 View (Portable) IMPRESSION: 1. Stable mild cardiomegaly. 2. No acute cardiopulmonary abnormality. Electronically Signed: Emanuel Meade MD at 3:02 EST ,
[2023-09-29 02:19] LABS: Absolute Lymphocyte Count 2.63 X10^3/uL (0.83-4.51); Absolute Neutrophil Count 5.7 X10^3/uL (2.0-7.7); Basophil# 0.12 X10^3/uL; Basophil% 1.2 % (0-1); Eosinophil# 0.46 X10^3/uL; Eosinophils% 4.8 % (0-5); Hematocrit 43.3 % (37-47); Hemoglobin 13.6 g/dL (12.0-15.0); Lymphocyte # 2.63 X10^3/ul (0.83-4.51); Lymphocyte % 27.2 % (19-41); Mean Corp Hgb Conc 31.4 g/dL (32-36); Mean Corpuscular Hgb 31.3 pg (27.0-32.0); Mean Corpuscular Volume 99.8 fL (81-99); Mean Platelet Vol. 10.6 fl (6.2-12.0); Monocyte# 0.75 X10^3/uL; Monocyte% 7.7 % (0-10); NRBC Flagged by Analyzer 0 % (0-5); Neutrophil # 5.68 X10^3/uL (2.7-7.7); Neutrophil % 58.7 % (47-70); Platelet Count 417 K/mm3 (150-450); RBC Distribution Width CV 12.5 % (11.6-14.6); RBC Distribution Width SD 45.9 fl (35.1-43.9); Red Blood Count 4.34 M/mm3 (4.2-5.4); White Blood Count 9.7 K/mm3 (4.4-11.0)
[2023-09-29 02:28] LABS: International Normalized Ratio 2.1; Prothrombin Time (Protime)PT. 24.2 SECONDS (11.7-14.9)
[2023-09-29 02:30] LABS: Partial Thromboplast Time 33.2 Seconds (24.1-36.2)
[2023-09-29 02:36] LABS: Anion Gap 5 (5-15); BUN 13 mg/dL (7-18); BUN/Creat Ratio 17.6 RATIO (10-20); Chloride 106 mmol/L (98-107); Creatinine, Serum 0.74 mg/dL (0.55-1.02); EST Glomerular Filtration Rate 80 mL/min (>60); Est Glom Filt Rate - Afr Amer 96 mL/min (>60); Estimated Creatinine Clearance 30.47 ml/min; Glucose 105 mg/dL (74-106); Sodium Level 140 mmol/L (136-145); Troponin-I HS (w/2H Reflex) 8 pg/mL (3.0-54.0)
[2023-09-29 02:41] VITALS: BP 142/66; PULSE 68; RESP 18; O2SAT 97
[2023-09-29 04:14] LABS: Reflex Troponin-HS? (from REC) Y
[2023-09-29 05:01] LABS: Troponin-I HS 8 pg/mL (3.0-54.0)
[2023-09-29 05:09] VITALS: BP 146/59; PULSE 70; RESP 20; O2SAT 97
--- NOTE | 2023-09-29 05:15 | HP.PCM.HOS_ITS ---
HPI - General General Date of Service: 09/29/23 Chief Complaint: Chest pain HPI Narrative GIA MERRITT, is a 88 F with a past medical history of essential hypertension, hyperlipidemia; with intolerance to statins, chronic atrial fibrillation; on rivaroxaban, history of CVA (2021), overactive bladder, generalized anxiety, history of cataracts; status post extractions, GERD and osteoarthritis who presents to [facility] ER complaining of chest pain. His Renetta reports her symptoms began approximately 6 hours prior to arrival with a gradual onset of chest pain that was initially substernal, nonradiating, stabbing and constant with nothing making the pain better or worse. She also admits to associated shortness of breath that accompanies the chest pain but she denies fever, chills, nausea, vomiting or diaphoresis. In the ER she was noted to have a negative troponin and a nonspecific EKG revealing evidence suggestive of left ventricular hypertrophy with unremarkable vital signs and she was then admitted to the CDU under observation status stay that is expected to be less than 48 hours. Update: The patient and her daughter both decided to go home and not be admitted and they promised to follow-up with a sliver former for an outpatient stress test. They were instructed to return if her chest pain recurs. FORMERLY [facility], 1928–1983 Medical History Abrasion of right upper back excluding scapular region Anxiety Arthritis involving multiple sites Cellulitis of mid back region CVA (cerebral vascular accident) (02/15/22) Essential hypertension GERD (gastroesophageal reflux disease) HLD (hyperlipidemia) Longstanding persistent atrial fibrillation Home Medications fluorometholone 0.1 % eye drops,suspension 1 drp ophthalmic (eye) BID PRN Dry Eyes 03/02/22 [History Last Taken Unknown] lorazepam 0.5 mg tablet 0.25 mg PO PRN PRN anxiety 02/08/23 [History Last Taken Unknown] budesonide 3 mg capsule,delayed,extended release 6 mg (2 x 3 mg) PO DAILY . #60 ea 03/02/23 [Rx Last Taken Unknown] metoprolol tartrate 25 mg tablet 37.5 mg (1.5 x 25 mg) PO BID . #270 tabs 05/01/23 [Rx Last Taken Unknown] cholecalciferol (vitamin D3) 25 mcg (1,000 unit) tablet 25 mcg PO DAILY 05/08/23 [History Last Taken Unknown] cyanocobalamin (vitamin B-12) 1,000 mcg tablet 1,000 mcg PO DAILY 05/08/23 [History Last Taken Unknown] ferrous sulfate 325 mg (65 mg iron) tablet (Feosol) 325 mg PO DAILY 05/08/23 [History Last Taken Unknown] vibegron 75 mg tablet (Gemtesa) 75 mg PO DAILY 07/10/23 [History Last Taken Unknown] losartan 100 mg tablet 100 mg PO DAILY #90 tabs 07/30/23 [Rx Last Taken Unknown] amlodipine 2.5 mg tablet 2.5 mg PO DAILY #90 tabs 07/31/23 [Rx Last Taken Unknown] glycerin-mineral oil-polycarbophil vaginal gel (Replens vaginal gel) 1 ea vaginal DAILY #35 grams 07/31/23 [Rx Last Taken Unknown] rivaroxaban 20 mg tablet (Xarelto) 20 mg PO QPM . #90 tabs 08/23/23 [Rx Last Taken Unknown] Allergy/AdvReac Type Severity Reaction Status Date / Time clindamycin Allergy Other Verified 09/29/23 01:36 hyoscyamine Allergy Other Verified 09/29/23 01:36 Penicillins Allergy Hives Verified 09/29/23 01:36 Pduhpcf-DTX-ZzH Reductase Allergy Pain in Verified 09/29/23 01:36 Inhibitor joints [Omrjqri-Niu-Gqc Reductase Inhibitor] glucosamine AdvReac Other Verified 09/29/23 01:36 Family History Father Diabetes Hyperlipemia Mother Cancer stomach Brother Parkinson's disease Surgical History Cataract extraction status Social History household members: none current occupational status: retired 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 HENT: Denies headache, denies stuffy nose, denies sore throat EYES: Denies changes in vision Resp: Patient admits to shortness of breath but denies cough. Cardiac: Patient admits to chest pain but denies palpitations. GI: Denies abdominal pain, denies changes in bowel, had some nausea : Patient admits to dysuria but denies hematuria. Extremity: Denies swelling Musculoskeletal: Feels somewhat generally weak and unwell Neuro: Denies any headache, numbness/tingling Heme: Denies any bleeding or bruising Skin: Denies rashes Psychiatric: No complaints voiced Endocrine: No polyuria The rest of the 14 point ROS was negative except for positives in HPI. Vital Signs Vital Signs Vital Signs: 09/29/23 01:36 09/29/23 01:41 09/29/23 02:14 Temperature 98 F Temperature Source Oral Pulse Rate 77 Respiratory Rate 16 Respiratory Effort Normal Blood Pressure 132/81 H Blood Pressure Mean 98 Pulse Ox 96 97 Oxygen Delivery Method Room Air 09/29/23 02:41 09/29/23 05:09 Temperature Temperature Source Pulse Rate 68 70 Respiratory Rate 18 20 H Respiratory Effort Blood Pressure 142/66 H 146/59 H Blood Pressure Mean 91 88 Pulse Ox 97 97 Oxygen Delivery Method Room Air Room Air Weight Weight: 106 lb 14.787 oz Body Mass Index (BMI) 20.2 Physical Exam Const alert, oriented x3, no apparent distress, average body habitus and healthy appearing General Appearance: cooperative HEENT normocephalic, head/scalp atraumatic, hearing grossly normal bilaterally and moist oral mucous membranes Eyes PERRL, EOMs intact bilaterally and conjunctivae normal Neck no lymphadenopathy and supple Resp normal respiratory effort, no retractions, no use of accessory muscles and clear to auscultation bilaterally Cardio Cardio Narrative: irregularly irregular GI normal to inspection, nondistended, normoactive bowel sounds, soft to palpation, non-tender and non-distended Extremity normal to inspection, full ROM and no clubbing, cyanosis or edema Skin Skin Narrative: Patient has no evidence of rash at this time. Neuro oriented x3, CN's II-XII intact bilaterally, moves all extremities and no focal motor deficits Sensorium / Orientation: awake, alert, oriented to person, oriented to place and oriented to time Speech: speech normal Motor Exam: strength 5/5 throughout Psych affect normal Results Medical Records Data Attestation: I reviewed the patient's medical records Lab / Micro Data Attestation: I reviewed the patient's lab results. 09/29/23 01:30 09/29/23 01:30 Labs: Laboratory Results - last 24 hr 09/29/23 01:30: WBC 9.7, RBC 4.34, Hgb 13.6, Hct 43.3, MCV 99.8 H, MCH 31.3, MCHC 31.4 L, RDW Std Deviation 45.9 H, RDW Coeff of [place] 12.5, Plt Count 417, MPV 10.6, Immature Gran % (Auto) 0.400, Neut % (Auto) 58.7, Lymph % (Auto) 27.2, [place] % (Auto) 7.7, Eos % (Auto) 4.8, Baso % (Auto) 1.2 H, Absolute Neuts (auto) 5.7, Absolute Lymphs (auto) 2.63, Nucleated RBC % 0, PT 24.2 H, INR 2.1, APTT 33.2, Sodium 140, Potassium 4.0, Chloride 106, Carbon Dioxide 29.0, Anion Gap 5, BUN 13, Creatinine 0.74, Estim Creat Clear Calc 30.47, Est GFR (MDRD) Af Amer 96, Est GFR (MDRD) Non-Af 80, BUN/Creatinine Ratio 17.6, Glucose 105, Calcium 9.0, Troponin I High Sens 8 09/29/23 04:25: Troponin I High Sens 8 Imagaing Radiology Impression Chest X-Ray 09/29/23 02:18 IMPRESSION: 1. Stable mild cardiomegaly. 2. No acute cardiopulmonary abnormality. Electronically Signed: Emanuel Meade MD at 3:02 EST , Assessment & Plan Assessment/Plan (1) Chest pain: QUALIFIERS: Chest pain type: unspecified Qualified Code(s): R07.9 - Chest pain, unspecified PLAN: Plan 1. Chest pain - Admit to CDU under observation status. Serialize troponin. Check echocardiogram to evaluate left ventricular ejection fraction. Check Lexiscan nuclear stress test when available. Continue aspirin and as needed sublingual nitroglycerin. Give Tylenol as needed for mild to moderate level 1-5 out of 10 pain or fever. Give morphine IV as needed for severe level 6-10 out of 10 pain finally, we will consult the sliver former on-call to see this patient on rounds in the a.m. for further recommendations with help appreciated in advance. 2. Chronic atrial fibrillation; on rivaroxaban - Resume home medications as previous. 3. Essential hypertension - Continue current regimen plus give as needed IV hydralazine for systolic blood pressure greater than 160 mmHg. 4. Hyperlipidemia; with intolerance to statins - Check lipid profile this admission. 5. History of CVA (2021) - Noted. 6. Overactive bladder - Continue vibegron as previous. 7. History of cataracts; status post extractions - Noted. 8. GERD - Stable. 9. Osteoarthritis - Stable. We will give Tylenol as outlined above. 10. DVT prophylaxis - Patient already on rivaroxaban which will be continued. Total time: Approximately 45 minutes. Update: The patient and her daughter both decided to go home and not be admitted and they promised to follow-up with a sliver former for an outpatient stress test. They were instructed to return if her chest pain recurs. Charges/Coding Visit Charges OBSV E&M: 30584 Observ/hosp same date L1
== END 2023-09-29 06:33 | disposition left against medical advice (07) ==
PROVIDERS: Emergency Provider Emergency Medicine; PCP Internal Medicine; Visit Provider Emergency Medicine
DX: R07.9 Chest pain, unspecified (principal); I48.11 Longstanding persistent atrial fibrillation; R06.00 Dyspnea, unspecified; I10 Essential (primary) hypertension; E78.5 Hyperlipidemia, unspecified; Z79.01 Long term (current) use of anticoagulants; Z79.899 Other long term (current) drug therapy; Z53.29 Procedure and treatment not carried out because of patient's decision for other reasons; Z86.73 Personal history of transient ischemic attack (TIA), and cerebral infarction without residual deficits
CPT/HCPCS: 71045; 80048; 84484; 85025; 85610; 85730; 93005; 99285; A4216

== ENCOUNTER 2024-04-19 08:55 | Observation (INO) | payer MEDICARE, OTHER, SELFPAY ==
[2024-04-19] VITALS (18 sets, daily range): BP systolic 94–163; BP diastolic 60–90; PULSE 42–88; RESP 12–18; TEMP 35.9–36.8; O2SAT 96–100; BMI 20.6
--- NOTE | 2024-04-19 09:05 | CT_ITS ---
HISTORY: Neuro deficit, acute, stroke suspected. TECHNIQUE: Multiple axial images were obtained of the head without intravenous contrast. A radiation dose optimization technique was used for this scan. 243 images. COMPARISON: 06/22/2022. FINDINGS: BRAIN PARENCHYMA: Multiple foci and zones of low attenuation in the bilateral cerebral white matter compatible with chronic small vessel ischemic gliosis. Old right basal ganglia infarct. No acute intra-axial hemorrhage identified. CSF SPACES: Generalized volume loss. No midline shift or other significant mass effect. No acute extra-axial hemorrhage seen. OTHER: Intact calvarium. No significant air fluid levels in the paranasal sinuses or mastoid air cells. Bilateral lens resections. ASPECTS Score for Acute Strokes: 10 CT/STROKE Brain/Head without Cont IMPRESSION: No acute intracranial process identified. Chronic involutional and white matter changes. Electronically Signed: Christianne Martinez MD at 9:20 EDT ,
--- NOTE | 2024-04-19 09:05 | EKG12_ITS ---
Test Reason : POSS STROKE Blood Pressure : / mmHG Vent. Rate : 047 BPM Atrial Rate : 000 BPM P-R Int : 000 ms QRS Dur : 126 ms QT Int : 454 ms P-R-T Axes : 000 -38 084 degrees QTc Int : 401 ms Atrial fibrillation with slow ventricular response Left axis deviation Left bundle branch block Abnormal ECG Confirmed by DEBRA DUNN, ALMA ([id number]), editor department AZIZA BALL ([id number]) on 04/23/2024 9:36:40 AM Referred By: Confirmed By:INGA RICHARDSON MD
--- NOTE | 2024-04-19 09:06 | CT_ITS ---
We are attempting to reach an attending provider to discuss findings. An addendum with communication details will be sent when the communication is complete. HISTORY: Neuro deficit, acute, stroke suspected. TECHNIQUE: [place]/head and carotid CT angiogram protocol was performed after the intravenous administration of 100 mL Isovue 370. NASCET criteria using the distal ICAs for comparison were used for evaluation of stenoses. 3D reconstructions were reviewed. A radiation dose optimization technique was used for this scan. 1642 images. COMPARISON: 02/15/2022. FINDINGS: AORTIC ARCH AND BRANCHES: Mild atherosclerosis RIGHT CCA: Mild less than 30% stenosis. No occlusion, significant stenosis or dissection. RIGHT ICA: Mild less than 30% stenosis. No occlusion, significant stenosis or dissection. LEFT CCA: Mild 30% stenosis. No occlusion, significant stenosis or dissection. LEFT ICA: Mild 30% stenosis. No occlusion, significant stenosis or dissection. RIGHT VERTEBRAL ARTERY: No occlusion, significant stenosis or dissection. LEFT VERTEBRAL ARTERY: No occlusion, significant stenosis or dissection. SOFT TISSUES: Subcentimeter right thyroid nodule. ICAs: No significant stenosis at the intracranial/visualized segments. Mild calcified plaque at both carotid siphons. ACAs: No significant stenosis at the visualized segments. MCAs: No significant stenosis at the visualized segments. systematic theology professor: No significant stenosis at the visualized segments. Left origin. BASILAR ARTERY: No significant stenosis. VERTEBRAL ARTERIES: Calcified plaque without significant stenosis. No evidence of intracranial aneurysm or vascular malformation. CT/STROKE CTA Head AND Neck W/Con IMPRESSION: No evidence for significant stenosis or occlusion in the carotid or vertebral arteries of the neck. No evidence of large vessel occlusion or other focal vascular abnormality in the [place] region. Electronically Signed: Christianne Martinez MD at 9:36 EDT ,
--- NOTE | 2024-04-19 09:07 | EDS_ITS ---
HPI History of Present Illness Chief Complaint: Stroke Alert Narrative Narrative: 88-year-old female past medical history of previous CVA 2 years ago, hypertension, A-fib, on Xarelto, presents with dizziness and right lower extremity weakness. Stroke team called per triage nurse. She relates history that she was able to get up this morning, feed her cat, then became very dizzy and lightheaded. While she had fallen, she did not strike her head. She presents with her daughter who states that patient was complaining that her occipital area felt strange. RN noticed right lower extremity weakness in triage, she had a harder time raising her right leg/extending her knee and it s eemed slower than the other. She was able to get up after her fall and ambulate without difficulty. She presents because of the dizziness, the fall, and the reported right lower extremity weakness/slowness. [facility] Medical History Cellulitis of mid back region Abrasion of right upper back excluding scapular region Longstanding persistent atrial fibrillation Arthritis involving multiple sites Essential hypertension CVA (cerebral vascular accident) (02/15/22) Anxiety GERD (gastroesophageal reflux disease) HLD (hyperlipidemia) Home Medications ?Medication ?Instructions ?Recorded ?Last Taken ?Type fluorometholone 0.1 % eye 1 drp ophthalmic (eye) BID PRN Dry 03/02/22 Unknown History drops,suspension Eyes cholecalciferol (vitamin D3) 25 25 mcg PO DAILY 05/08/23 Unknown History mcg (1,000 unit) tablet cyanocobalamin (vitamin B-12) 1,000 mcg PO DAILY 05/08/23 Unknown History 1,000 mcg tablet ferrous sulfate 325 mg (65 mg 325 mg PO DAILY 05/08/23 Unknown History iron) tablet (Feosol) glycerin-mineral oil-polycarbophil 1 ea vaginal DAILY #35 grams 07/31/23 Unknown Rx vaginal gel (Replens vaginal gel) amlodipine 2.5 mg tablet 2.5 mg PO DAILY #90 tabs 10/18/23 Unknown Rx lorazepam 0.5 mg tablet 0.25 mg (1/2 x 0.5 mg) PO PRN PRN 10/18/23 Unknown Rx anxiety #10 tabs metoprolol tartrate 25 mg tablet 37.5 mg (1.5 x 25 mg) PO BID . 10/25/23 Unknown Rx #270 tabs rivaroxaban 20 mg tablet (Xarelto) 20 mg PO QPM . #90 tabs 11/13/23 Unknown Rx losartan 100 mg tablet 100 mg PO DAILY #90 tabs 01/20/24 Unknown Rx handicap placard #1 ea 01/23/24 Unknown Rx budesonide 3 mg 6 mg (2 x 3 mg) PO DAILY . #60 ea 02/21/24 Unknown Rx capsule,delayed,extended release Allergy/AdvReac Type Severity Reaction Status Date / Time clindamycin Allergy Other Verified 01/23/24 08:32 hyoscyamine Allergy Other Verified 01/23/24 08:32 Penicillins Allergy Hives Verified 01/23/24 08:32 Lyrkmwp-KTN-PlD Reductase Allergy Pain in Verified 01/23/24 08:32 Inhibitor (Kodkfkr-Amy-Wsp joints Reductase Inhibitor) nitrofurantoin (From AdvReac Mild altered Verified 01/23/24 08:32 Macrobid) mental status glucosamine AdvReac Other Verified 01/23/24 08:32 Family History Father Diabetes Hyperlipemia Mother Cancer stomach Brother Parkinson's disease Surgical History Cataract extraction status Social History household members: none current occupational status: retired 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 HEENT: No sore throat. No neck pain. No loss of vision. No rhinorrhea. Cardiovascular: No chest pain. No palpitations. No pedal edema. Respiratory: No cough, no shortness of breath. Abdominal: No abdominal pain. No nausea. No vomiting. Genitourinary: No dysuria. No hematuria. Musculoskeletal: No myalgias. No arthralgias. Right lower extremity slower. Neurologic: Occipital headaches/feels different. Positive dizziness. No lightheadedness. Skin: No rash. No change in color. Psychiatric: No depression. No anxiety. EXAM Physical Exam Narrative Exam Narrative: Afebrile. Vital signs noted. HEENT: Normocephalic. Atraumatic. PERRL, EOMI. Neck soft and supple. No point tenderness or step off. Cardiovascular: Regular rate and rhythm. No murmurs, rubs, or gallops ap preciated. Respiratory: No tachypnea. Lungs clear to auscultation bilaterally. Gastrointestinal: Abdomen soft, nontender, with normoactive bowel sounds. No rebound or guarding. Neurological: Awake. Alert. Nonfocal, nonlateralizing. Able to flex and extend right knee, but slower to respond. NIH is essentially 1 for right lower extremity weakness. Skin: No rash. Normal color. No pallor. Musculoskeletal: No pedal edema. Full range of motion extremities. Const Vital Signs: 04/19/24 08:59 04/19/24 08:59 04/19/24 09:05 Temperature 96.7 F L Temperature Source Temporal Pulse Rate 74 74 Respiratory Rate 12 12 Blood Pressure 163/76 H 163/76 H Blood Pressure Mean 105 105 Pulse Ox 100 100 99 Oxygen Delivery Method Room Air Room Air Room Air 04/19/24 09:05 04/19/24 09:35 04/19/24 09:57 Temperature Temperature Source Pulse Rate 74 54 L 42 L Respiratory Rate 12 18 12 Blood Pressure 163/76 H 147/74 H 94/80 Blood Pressure Mean 105 98 84 Pulse Ox 99 97 100 Oxygen Delivery Method Room Air Room Air Room Air 04/19/24 09:57 04/19/24 10:00 04/19/24 10:05 Temperature Temperature Source Pulse Rate 54 L 42 L 54 L Respiratory Rate 18 12 18 Blood Pressure 94/80 94/80 94/80 Blood Pressure Mean 84 84 84 Pulse Ox 97 100 97 Oxygen Delivery Method Room Air Room Air Room Air 04/19/24 10:30 04/19/24 11:00 Temperature Temperature Source Pulse Rate 54 L 54 L Respiratory Rate 18 12 Blood Pressure 135/64 H 138/65 H Blood Pressure Mean 87 89 Pulse Ox 97 100 Oxygen Delivery Method Room Air Room Air MDM MDM MDM Narrative Medical decision making narrative: Stroke team called in triage per protocol. CTA of the head and neck will also be obtained as well as CT and stroke workup. She does have an NIH stroke scale of 1. I do not feel that she is a TNK candidate as she does not have a debilitating deficit, and she is on Xarelto. I reviewed her laboratory work and she has a normal white count of 6.6, hemoglobin normal at 14.9, hematocrit 46.9, platelet count normal at 265. INR is 1.5 and APTT 29.6. Electrolyte panel/BMP is grossly unremarkable with normal sodium of 140 and potassium 3.7. High-sensitivity troponin is 6. [id number] glucose 128. I received a call from the radiologist regarding the CT of the brain which is negative for acute hemorrhage or mass. Additionally, I received another call from the radiologist regarding the CTA of the head and neck which is negative for large vessel occlusion. RN reports that teleneurologist did not indicate need for TNK, and suggested admission for TIA type symptoms. EKG was obtained and interpreted by myself independently as atrial fibrillation with slow ventricular response at 47 bpm. Her heart rate ranges from the 60s to her bradycardia. She is on metoprolol. In the differential diagnosis with TIA would also be transient drop in blood pressure or symptomatic bradycardia. I was able to discuss patient with Dr. Emmanuel. He requested that MRI of the brain without contrast be performed here because it is a weekend and they would have to call in someone tomorrow to have it performed. MRI is currently available according to him so I placed the order. Regardless, she will be assigned to observation in the PCU for TIA, bradycardia, dizziness, and right leg weakness. Disposition is assigned to observation. Patient is in stable condition. History & Record Review Discussion w/independent historian: Patient and Family Lab Data Attestation: I reviewed the patient's lab results. Labs: Laboratory Results - last 24 hr 04/19/24 04/19/24 09:01 09:05 WBC 6.6 RBC 4.78 Hgb 14.9 Hct 46.9 MCV 98.1 MCH 31.2 MCHC 31.8 L RDW Std Deviation 43.8 RDW Coeff of [place] 12.0 Plt Count 265 MPV 10.8 Immature Gran % (Auto) 0.300 Neut % (Auto) 67.6 Lymph % (Auto) 21.0 [place] % (Auto) 6.4 Eos % (Auto) 3.3 Baso % (Auto) 1.4 H Absolute Neuts (auto) 4.4 Absolute Lymphs (auto) 1.38 Nucleated RBC % 0 PT 17.9 H INR 1.5 APTT 29.6 Sodium 140 Potassium 3.7 Chloride 107 Carbon Dioxide 28.0 Anion Gap 5 BUN 12 Creatinine 0.80 Estim Creat Clear Calc 38.09 Est GFR (MDRD) Af Amer 88 Est GFR (MDRD) Non-Af 73 BUN/Creatinine Ratio 15.1 Glucose 135 H Calcium 8.9 Troponin I High Sens 6 POC Glucose 128 H Radiography Diagnostic Testing: Clinical Impression(s) from Imaging Studies Brain CT 04/19/24 09:05 IMPRESSION: No acute intracranial process identified. Chronic involutional and white matter changes. Electronically Signed: Christianne Martinez MD at 9:20 EDT Reading Location ID and State: [facility] / [place] Tel , Service support , ADDENDUM: 04/19/24 0928 IMPRESSION: No acute intracranial process identified. Chronic involutional and white matter changes. N.B. : The above Results were Read Back by Christianne Martinez MD to Rex Su MD, and understanding confirmed on 04/19/2024 09:21:17 (ET). Electronically Signed: Christianne Martinez MD at 9:20 EDT Reading Location ID and State: [facility] / [place] Tel , Service support , ADDENDUM: 04/19/24 0932 IMPRESSION: No acute intracranial process identified. Chronic involutional and white matter changes. N.B. : The above Results were Read Back by Christianne Martinez MD to Rex Su MD, and understanding confirmed on 04/19/2024 09:25:06 (ET). Electronically Signed: Christianne Martinez MD at 9:20 EDT , Head/Neck CTA 04/19/24 09:06 IMPRESSION: No evidence for significant stenosis or occlusion in the carotid or vertebral arteries of the neck. No evidence of large vessel occlusion or other focal vascular abnormality in the [place] region. Electronically Signed: Christianne Martinez MD at 9:36 EDT , ADDENDUM: 04/19/24 0946 IMPRESSION: No evidence for significant stenosis or occlusion in the carotid or vertebral arteries of the neck. No evidence of large vessel occlusion or other focal vascular abnormality in the [place] region. N.B. : The above Results were Read Back by Christianne Martinez MD to Rex Su MD, and understanding confirmed on 04/19/2024 09:39:48 (ET). Electronically Signed: Christianne Martinez MD at 9:36 EDT , ADDENDUM: 04/19/24 0953 IMPRESSION: No evidence for significant stenosis or occlusion in the carotid or vertebral arteries of the neck. No evidence of large vessel occlusion or other focal vascular abnormality in the [place] region. N.B. : The above Results were Read Back by Christianne Martinez MD to Rex Su MD, and understanding confirmed on 04/19/2024 09:46:16 (ET). Electronically Signed: Christianne Martinez MD at 9:36 EDT , Discharge Plan Triage Chief Complaint: Stroke Alert Other Complaint: Dizziness ED Provider: Rex Su Dx/Rx/DC Orders Prescriptions: No Action fluorometholone 0.1 % drops,suspension 1 drp ophthalmic (eye) BID PRN (Reason: Dry Eyes) cholecalciferol (vitamin D3) 25 mcg (1,000 unit) tablet 25 mcg PO DAILY cyanocobalamin (vitamin B-12) 1,000 mcg tablet 1,000 mcg PO DAILY ferrous sulfate [Feosol] 325 mg (65 mg iron) tablet 325 mg PO DAILY Xarelto 20 mg tablet 20 mg PO QPM Qty: 90 3RF Rx Instructions: must administer with evening meal lorazepam 0.5 mg tablet 0.25 mg PO PRN PRN (Reason: anxiety) Qty: 10 0RF (DME) handicap placard See Rx Instructions .ROUTE .MEDSUPPLY Qty: 1 0RF Rx Instructions: Length of time: 5 years Diagnosis: Impaired physical mobility Z74.09 Replens Gel 1 ea vaginal DAILY Qty: 35 0RF amlodipine 2.5 mg tablet 2.5 mg PO DAILY Qty: 90 1RF metoprolol tartrate 25 mg tablet 37.5 mg PO BID Qty: 270 1RF losartan 100 mg tablet 100 mg PO DAILY Qty: 90 1RF budesonide 3 mg capsule,delayed,extend.release 6 mg PO DAILY Qty: 60 3RF Primary Care Provider: Deepika Fabian Referrals: Deepika Fabian MD [Primary Care Provider] - Print Language: Armenian
[2024-04-19 09:14] LABS: Absolute Lymphocyte Count 1.38 X10^3/uL (0.83-4.51); Absolute Neutrophil Count 4.4 X10^3/uL (2.0-7.7); Basophil# 0.09 X10^3/uL; Basophil% 1.4 % (0-1); Eosinophil# 0.22 X10^3/uL; Eosinophils% 3.3 % (0-5); Hematocrit 46.9 % (37-47); Hemoglobin 14.9 g/dL (12.0-15.0); Lymphocyte # 1.38 X10^3/ul (0.83-4.51); Mean Corp Hgb Conc 31.8 g/dL (32-36); Mean Corpuscular Hgb 31.2 pg (27.0-32.0); Mean Corpuscular Volume 98.1 fL (81-99); Mean Platelet Vol. 10.8 fl (6.2-12.0); Monocyte# 0.42 X10^3/uL; Monocyte% 6.4 % (0-10); NRBC Flagged by Analyzer 0 % (0-5); Neutrophil # 4.44 X10^3/uL (2.7-7.7); Neutrophil % 67.6 % (47-70); Platelet Count 265 K/mm3 (150-450); RBC Distribution Width SD 43.8 fl (35.1-43.9); Red Blood Count 4.78 M/mm3 (4.2-5.4); White Blood Count 6.6 K/mm3 (4.4-11.0)
[2024-04-19 09:19] LABS: Bedside Glucose 128 mg/dL (74-106)
[2024-04-19 09:28] LABS: Anion Gap 5 (5-15); BUN 12 mg/dL (7-18); BUN/Creat Ratio 15.1 RATIO (10-20); Calcium,Total 8.9 mg/dL (8.5-10.1); Chloride 107 mmol/L (98-107); EST Glomerular Filtration Rate 73 mL/min (>60); Est Glom Filt Rate - Afr Amer 88 mL/min (>60); Estimated Creatinine Clearance 38.09 ml/min; Glucose 135 mg/dL (74-106); Potassium 3.7 mmol/L (3.5-5.1); Sodium Level 140 mmol/L (136-145); Troponin-I HS 6 pg/mL (3.0-54.0)
[2024-04-19 10:09] LABS: International Normalized Ratio 1.5; Prothrombin Time (Protime)PT. 17.9 SECONDS (11.7-14.9)
[2024-04-19 10:10] LABS: Partial Thromboplast Time 29.6 Seconds (24.1-36.2)
--- NOTE | 2024-04-19 10:25 | RAD_ITS ---
HISTORY: Neuro deficit, acute, stroke suspected. TECHNIQUE: XR Chest 1 View. COMPARISON: 09/29/2023. FINDINGS: CARDIOMEDIASTINAL BORDERS: Cardiac silhouette again mildly enlarged. Mediastinal contour also unchanged with calcification of the aortic knob. LUNGS: Radiographically clear. PLEURA: No pleural effusion or pneumothorax seen. OSSEOUS STRUCTURES: Degenerative change, osteopenia, and mild scoliosis. RAD/Chest 1 View IMPRESSION: No acute cardiopulmonary process identified. Electronically Signed: Christianne Martinez MD at 11:19 EDT ,
--- NOTE | 2024-04-19 11:03 | MRI_ITS ---
HISTORY: leg weakness. TECHNIQUE: Multiplanar and multisequence MR images of the brain were obtained without contrast. 281 images. COMPARISON: CT same day. FINDINGS: BRAIN PARENCHYMA: Chronic white matter changes. Old right basal ganglia infarct. No abnormal focus of restricted diffusion. No acute intracranial hemorrhage identified. CSF SPACES: Moderate volume loss. No significant midline shift or other mass effect.No extra-axial fluid collection. VASCULAR SYSTEM: Major intracranial flow voids are maintained. PARANASAL SINUSES AND MASTOID AIR CELLS: No significant air fluid levels. ORBITS: Bilateral lens resections. MRI/Brain without Contrast IMPRESSION: No evidence for acute infarct. Chronic involutional and white matter changes. Electronically Signed: Christianne Martinez MD at 13:06 EDT ,
--- NOTE | 2024-04-19 11:05 | NURSING ---
PCU OBS MELCHOR RT LEG WEAKNESS, DIZZINESS
--- NOTE | 2024-04-19 12:04 | ED.RN ---
PT OUT OF DEPARTMENT SINCE 115. TO MRI
--- NOTE | 2024-04-19 12:10 | CM.ED ---
Social Work: Reason for Referral: Stroke Alert Date of referral: 04/19/24 Referred by: Social Work identification bog worker stopped by to meet with patient to check in and see how she's doing to to see if any support was needed. Patient was out for an MRI per patient's daughter Alyson. bog worker offered support to patient's daughter who reported she was doing ok. Alyson stated she brought patient to the ED due to patient complaining of the back, bottom part of her head hurting after a fall and feeling pressure. No additional concerns/needs identified. bog worker went back to see patient and offer fall prevention education however patient had already been moved. Christina Lebron, CULINARY ASSISTANT, SAFETY OFFICER
--- NOTE | 2024-04-19 16:19 | HP.PCM.HOS_ITS ---
HPI - General General Date of Admission: 04/19/24 Date of Service: 04/19/24 Chief Complaint: Lightheadedness, right lower extremity weakness HPI Narrative GIA MERRITT, is a 88 F who presents to the emergency room at [facility] with complaints of dizziness and right lower extremity weakness which started this morning shortly after she got up approximately 7:45 AM. Patient stated she felt lightheaded and fell but did not sustain any significant injuries. A stroke team was called when the patient arrived at the emergency room, she underwent a CT of the brain and a CTA of her head and neck which were all unremarkable. Patient's NIH stroke score was 1. Patient has a past history of stroke years ago and has some memory issues according to the daughter which has been attributed to the previous stroke. It was not recommended that the patient receive tenecteplase, patient was already taking Xarelto for chronic A-fib stroke prevention. Labs obtained showed a normal CBC, patient's chemistry panel was unremarkable. I requested that the patient undergo an MRI due to the fact that the MRI staff was still in the hospital and they would need to be called in tomorrow or the patient would have to wait till Sunday to get an MRI. Patient's MRI did not show any acute process. There was noted to be an old right basal ganglia infarct present. Patient will be placed into observation status on PCU, in the emergency room she was noted to be bradycardic in the 40s-patient does take a beta-vy on a chronic basis. I have elected to decrease her beta-vy and monitor on telemetry, he will be seen by PT and OT. I will have NIH scores monitored for short period of time, if these remain normal, I will stop them. Patient will not need an echocardiogram at this time. I think it is unlikely the patient had a TIA. [facility] Medical History Cellulitis of mid back region Abrasion of right upper back excluding scapular region Longstanding persistent atrial fibrillation Arthritis involving multiple sites Essential hypertension CVA (cerebral vascular accident) (02/15/22) Anxiety GERD (gastroesophageal reflux disease) HLD (hyperlipidemia) Home Medications ?Medication ?Instructions ?Recorded ?Last Taken ?Type fluorometholone 0.1 % eye 1 drp ophthalmic (eye) BID PRN Dry 03/02/22 Unknown History drops,suspension Eyes cholecalciferol (vitamin D3) 25 25 mcg PO DAILY 05/08/23 04/18/24 History mcg (1,000 unit) tablet cyanocobalamin (vitamin B-12) 1,000 mcg PO DAILY 05/08/23 04/18/24 History 1,000 mcg tablet ferrous sulfate 325 mg (65 mg 325 mg PO DAILY 05/08/23 04/18/24 History iron) tablet (Feosol) lorazepam 0.5 mg tablet 0.25 mg (1/2 x 0.5 mg) PO PRN PRN 10/18/23 Unknown Rx anxiety #10 tabs metoprolol tartrate 25 mg tablet 37.5 mg (1.5 x 25 mg) PO BID . 10/25/23 04/19/24 Rx #270 tabs rivaroxaban 20 mg tablet (Xarelto) 20 mg PO QPM . #90 tabs 11/13/23 04/18/24 Rx losartan 100 mg tablet 100 mg PO DAILY #90 tabs 01/20/24 04/19/24 Rx handicap placard #1 ea 01/23/24 Unknown Rx budesonide 3 mg 6 mg (2 x 3 mg) PO DAILY . #60 ea 02/21/24 04/19/24 Rx capsule,delayed,extended release Allergy/AdvReac Type Severity Reaction Status Date / Time clindamycin Allergy Other Verified 01/23/24 08:32 hyoscyamine Allergy Other Verified 01/23/24 08:32 Penicillins Allergy Hives Verified 01/23/24 08:32 Qfeddlp-BAG-XnW Reductase Allergy Pain in Verified 01/23/24 08:32 Inhibitor (Pmgcicj-Qbx-Wzb joints Reductase Inhibitor) nitrofurantoin (From AdvReac Mild altered Verified 01/23/24 08:32 Macrobid) mental status glucosamine AdvReac Other Verified 01/23/24 08:32 Family History Father Diabetes Hyperlipemia Mother Cancer stomach Brother Parkinson's disease Surgical History Cataract extraction status Social History household members: none current occupational status: retired 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 pets and animals: Yes pets and animals: cat(s) Smoking Status: Never smoker Electronic Cigarette Use: not used alcohol intake: current alcohol intake frequency: holidays/special occasions only substance use type: does not use what type of physical activity do you participate in: other details: gardening do you feel safe at home: Yes ROS Constitutional Constitutional: Reports weakness; Denies anorexia, change in weight, chills, fatigue, fever(s) or night sweats Eyes Eyes: Denies blurry vision, change in vision, discharge from eye(s) or eye pain Cardiovascular Cardiovascular: Reports lightheadedness; Denies chest pain, claudication, edema or palpitations Respiratory/Chest Respiratory/Chest: Denies cough, hemoptysis, shortness of breath at rest or shortness of breath with exertion Gastrointestinal Gastrointestinal: Denies abdominal pain, constipation, diarrhea, hematemesis, hematochezia, melena, nausea or vomiting Genitourinary Genitourinary: Denies dysuria, hematuria, urinary frequency, urinary hesitancy, urinary incontinence or urinary urgency Musculoskeletal Musculoskeletal: Denies back pain, joint pain, joint stiffness, joint swelling, myalgias or neck pain Neurologic Neurologic: Reports dizziness and focal weakness; Denies abnormal gait, abnormal speech, headache(s), loss of vision, numbness, other visual disturbances, paresthesias, syncope or tingling Psychiatric Psychiatric: Reports cognitive impairment; Denies anxiety, depression, irritability, mood swings or suicidal ideation Endocrine Endocrinology: Denies change in body appearance, cold intolerance, excessive sweating, heat intolerance, polydipsia or polyuria Hematologic/Lymphatic Hematologic/Lymphatic: Denies none, anemia, easy bleeding, easy bruising or lymphadenopathy Allergic/Immunologic Allergic/Immunologic: Denies rhinitis, urticaria, eczemia or asthma Vital Signs Vital Signs Vital Signs: 04/19/24 08:59 04/19/24 08:59 04/19/24 09:05 Temperature 96.7 F L Temperature Source Temporal Pulse Rate 74 74 Respiratory Rate 12 12 Blood Pressure 163/76 H 163/76 H Blood Pressure Mean 105 105 Blood Pressure Source Blood Pressure Position Blood Pressure Location Pulse Ox 100 100 99 Oxygen Delivery Method Room Air Room Air Room Air 04/19/24 09:05 04/19/24 09:35 04/19/24 09:57 Temperature Temperature Source Pulse Rate 74 54 L 42 L Respiratory Rate 12 18 12 Blood Pressure 163/76 H 147/74 H 94/80 Blood Pressure Mean 105 98 84 Blood Pressure Source Blood Pressure Position Blood Pressure Location Pulse Ox 99 97 100 Oxygen Delivery Method Room Air Room Air Room Air 04/19/24 09:57 04/19/24 10:00 04/19/24 10:05 Temperature Temperature Source Pulse Rate 54 L 42 L 54 L Respiratory Rate 18 12 18 Blood Pressure 94/80 94/80 94/80 Blood Pressure Mean 84 84 84 Blood Pressure Source Blood Pressure Position Blood Pressure Location Pulse Ox 97 100 97 Oxygen Delivery Method Room Air Room Air Room Air 04/19/24 10:30 04/19/24 11:00 04/19/24 11:00 Temperature Temperature Source Pulse Rate 54 L 54 L 54 L Respiratory Rate 18 12 18 Blood Pressure 135/64 H 138/65 H 138/65 H Blood Pressure Mean 87 89 89 Blood Pressure Source Blood Pressure Position Blood Pressure Location Pulse Ox 97 100 97 Oxygen Delivery Method Room Air Room Air Room Air 04/19/24 11:30 04/19/24 11:54 04/19/24 12:32 Temperature 97.9 F Temperature Source Pulse Rate 61 57 L 61 Respiratory Rate 18 18 18 Blood Pressure 122/62 H 137/66 H 128/60 H Blood Pressure Mean 82 89 82 Blood Pressure Source Blood Pressure Position Blood Pressure Location Pulse Ox 97 97 98 Oxygen Delivery Method Room Air Room Air 04/19/24 13:45 Temperature 97.8 F Temperature Source Oral Pulse Rate 78 Respiratory Rate 16 Blood Pressure 144/65 H Blood Pressure Mean 91 Blood Pressure Source Monitor Blood Pressure Position Semi-Fowlers Blood Pressure Location Right Arm Pulse Ox 99 Oxygen Delivery Method Room Air Weight Weight: 47.9 kg Body Mass Index (BMI) 20.6 Physical Exam Const alert, oriented x3, no apparent distress and healthy appearing General Appearance: cooperative, well kempt and well developed Orientation / Consciousness: awake, oriented to person, oriented to place and oriented to time HEENT normocephalic, head/scalp atraumatic and moist oral mucous membranes Eyes PERRL, EOMs intact bilaterally and conjunctivae normal Neck supple, no JVD, thyroid normal and no carotid bruits General: trachea midline Resp normal respiratory effort, no retractions, no use of accessory muscles and clear to auscultation bilaterally Auscultation: Negative for rales, rhonchi or wheezes Cardio S1 normal heart sound, S2 normal heart sound, no murmurs, no rub and no gallops Cardio Narrative: Heart rate and rhythm is irregular GI normal to inspection, nondistended, normoactive bowel sounds, soft to palpation, non-tender and non-distended Extremity no clubbing, cyanosis or edema Skin no rashes or lesions noted General Skin Exam: no breakdown Neuro oriented x3, CN's II-XII intact bilaterally, moves all extremities, no focal motor deficits and no sensory deficits noted Sensorium / Orientation: awake and alert Speech: speech normal Psych affect normal Results Lab / Micro Data 04/19/24 09:05 04/19/24 09:05 Labs: Laboratory Results - last 24 hr 04/19/24 09:01: POC Glucose 128 H 04/19/24 09:05: WBC 6.6, RBC 4.78, Hgb 14.9, Hct 46.9, MCV 98.1, MCH 31.2, MCHC 31.8 L, RDW Std Deviation 43.8, RDW Coeff of Palak 12.0, Plt Count 265, MPV 10.8, Immature Gran % (Auto) 0.300, Neut % (Auto) 67.6, Lymph % (Auto) 21.0, Haakon % (Auto) 6.4, Eos % (Auto) 3.3, Baso % (Auto) 1.4 H, Absolute Neuts (auto) 4.4, Absolute Lymphs (auto) 1.38, Nucleated RBC % 0, PT 17.9 H, INR 1.5, APTT 29.6, Sodium 140, Potassium 3.7, Chloride 107, Carbon Dioxide 28.0, Anion Gap 5, BUN 12, Creatinine 0.80, Estim Creat Clear Calc 38.09, Est GFR (MDRD) Af Amer 88, Est GFR (MDRD) Non-Af 73, BUN/Creatinine Ratio 15.1, Glucose 135 H, Calcium 8.9, Troponin I High Sens 6 Imaging Radiology Impression Brain CT 04/19/24 09:05 IMPRESSION: No acute intracranial process identified. Chronic involutional and white matter changes. Electronically Signed: Christianne Martinez MD at 9:20 EDT Reading Location ID and State: [facility] / [place] Tel , Service support , ADDENDUM: 04/19/24 0928 IMPRESSION: No acute intracranial process identified. Chronic involutional and white matter changes. N.B. : The above Results were Read Back by Christianne Martinez MD to Rex Su MD, and understanding confirmed on 04/19/2024 09:21:17 (ET). Electronically Signed: Christianne Martinez MD at 9:20 EDT , ADDENDUM: 04/19/24 0932 IMPRESSION: No acute intracranial process identified. Chronic involutional and white matter changes. N.B. : The above Results were Read Back by Christianne Martinez MD to Rex Su MD, and understanding confirmed on 04/19/2024 09:25:06 (ET). Electronically Signed: Christianne Martinez MD at 9:20 EDT , Head/Neck CTA 04/19/24 09:06 IMPRESSION: No evidence for significant stenosis or occlusion in the carotid or vertebral arteries of the neck. No evidence of large vessel occlusion or other focal vascular abnormality in the [place] region. Electronically Signed: Christianne Martinez MD at 9:36 EDT , ADDENDUM: 04/19/24 0946 IMPRESSION: No evidence for significant stenosis or occlusion in the carotid or vertebral arteries of the neck. No evidence of large vessel occlusion or other focal vascular abnormality in the [place] region. N.B. : The above Results were Read Back by Christianne Martinez MD to Rex Su MD, and understanding confirmed on 04/19/2024 09:39:48 (ET). Electronically Signed: Christianne Martinez MD at 9:36 EDT , ADDENDUM: 04/19/24 0953 IMPRESSION: No evidence for significant stenosis or occlusion in the carotid or vertebral arteries of the neck. No evidence of large vessel occlusion or other focal vascular abnormality in the [place] region. N.B. : The above Results were Read Back by Christianne Martinez MD to Rex Su MD, and understanding confirmed on 04/19/2024 09:46:16 (ET). Electronically Signed: Christianne Martinez MD at 9:36 EDT , Chest X-Ray 04/19/24 10:25 IMPRESSION: No acute cardiopulmonary process identified. Electronically Signed: Christianne Martinez MD at 11:19 EDT , Brain MRI 04/19/24 11:03 IMPRESSION: No evidence for acute infarct. Chronic involutional and white matter changes. Electronically Signed: Christianne Martinez MD at 13:06 EDT , Assessment & Plan Assessment/Plan (1) Dizziness: PLAN: Plan 1. Lightheadedness with right lower extremity weakness which was transient- again patient will be placed in observation status on PCU, she will be monitored on telemetry and NIH scores will be obtained for short period of time. I think it is unlikely the patient had a TIA. #2 bradycardia secondary to beta-vy usage-I have elected to decrease the patient's metoprolol to 25 mg twice daily and monitor her on telemetry. #3 cerebrovascular disease-patient is currently on Xarelto but no aspirin, I discussed this with the patient and the patient's daughter who was in the room at the time of my exam today, it is my opinion that the patient should not be placed on additional medication such as aspirin or Plavix due to the risk of bleeding. The patient and the patient's daughter are agreeable with this. 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 Patient is intolerant of statins due to joint pain. Total clinical time spent by myself addressing the patient's medical issues, reviewing her data, and collaborating with the patient's care team: 55 minutes Charges/Coding Visit Charges Inpatient E&M: 95716 Init Hosp L2
[2024-04-19] MEDS: Metoprolol Tartrate 25 MG Tablet PO (21:25)
[2024-04-19] MEDS: Rivaroxaban 20 MG Tablet PO (21:27)
[2024-04-20 03:50] VITALS: BP 124/85; PULSE 67; RESP 18; TEMP 36.3; O2SAT 97
[2024-04-20 06:41] LABS: Cholesterol 305 mg/dL (200); High Density Lipoprotein 71 mg/dL; Triglycerides 133 mg/dL; Very Low Density Lipoprotein 27 mg/dL (5-40)
[2024-04-20 07:50] VITALS: O2SAT 96
--- NOTE | 2024-04-20 10:57 | DCINST_ITS ---
Discharge Instructions Diet Discharge Diet: No restrictions Activity Discharge Activity: Return to Normal Activity Weight Bearing Status: Full weight bearing Follow Up Care Test Results: Test results from this visit will be discussed in further detail at your follow- up appointment, if applicable. Discharge Plan Admission Admit Date/Time: 04/19/24 11:18 Primary Reason for Your Visit: lightheadedness, bradycardia Attending Provider: Irwin Emmanuel Primary Care Provider: Deepika Fabian Discharge Orders/Prescriptions Prescriptions: New metoprolol tartrate 25 mg Tablet 25 mg PO BID Qty: 0 0RF Continued fluorometholone 0.1 % drops,suspension 1 drp ophthalmic (eye) BID PRN (Reason: Dry Eyes) cholecalciferol (vitamin D3) 25 mcg (1,000 unit) tablet 25 mcg PO DAILY cyanocobalamin (vitamin B-12) 1,000 mcg tablet 1,000 mcg PO DAILY ferrous sulfate [Feosol] 325 mg (65 mg iron) tablet 325 mg PO DAILY Xarelto 20 mg tablet 20 mg PO QPM Qty: 90 3RF Rx Instructions: must administer with evening meal lorazepam 0.5 mg tablet 0.25 mg PO PRN PRN (Reason: anxiety) Qty: 10 0RF (DME) handicap placard See Rx Instructions .ROUTE .MEDSUPPLY Qty: 1 0RF Rx Instructions: Length of time: 5 years Diagnosis: Impaired physical mobility Z74.09 losartan 100 mg tablet 100 mg PO DAILY Qty: 90 1RF budesonide 3 mg capsule,delayed,extend.release 6 mg PO DAILY Qty: 60 3RF Discontinued metoprolol tartrate 25 mg tablet 37.5 mg PO BID Qty: 270 1RF Referrals / Follow Up: Deepika Fabian MD [Primary Care Provider] - See Referral Note (As scheduled) Disposition Disposition (needs filled in before D/C Order can be placed): Home, Self Care
[2024-04-20 10:58] VITALS: BP 134/77; PULSE 78; RESP 16; TEMP 36.4; O2SAT 98
[2024-04-20 10:59] VITALS: BP 134/77; PULSE 78
[2024-04-20] MEDS: Metoprolol Tartrate 25 MG Tablet PO (10:59)
[2024-04-20] MEDS: Losartan Potassium 100 MG Tablet PO (10:59)
--- NOTE | 2024-04-20 11:01 | DS.PCM_ITS ---
Providers Date of Admission: 04/19/24 Date of Discharge: 04/20/24 Primary Care Physician: Dr. Deepika Fabian MD Reason For Visit: LOWER EXTREMITY WEAKNESS, DIZZINESS Diagnosis Discharge Diagnosis (1) Dizziness: Status: Acute Code(s): R42 - Dizziness and giddiness Plan 1. Lightheadedness with right lower extremity weakness which was transient- etiology unclear #2 bradycardia secondary to beta-vy usage-I have elected to decrease the patient's metoprolol to 25 mg twice daily and monitor her on telemetry. #3 cerebrovascular disease-patient is currently on Xarelto but no aspirin, I discussed this with the patient and the patient's daughter who was in the room at the time of my exam today, it is my opinion that the patient should not be placed on additional medication such as aspirin or Plavix due to the risk of bleeding. The patient and the patient's daughter are agreeable with this. 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 Patient is intolerant of statins due to joint pain. Total clinical time spent by myself addressing the patient's medical issues, reviewing her data, and collaborating with the patient's care team: 55 minutes Medications at Discharge Home Medications fluorometholone 0.1 % eye drops,suspension 1 drp ophthalmic (eye) BID PRN Dry Eyes 03/02/22 cholecalciferol (vitamin D3) 25 mcg (1,000 unit) tablet 25 mcg PO DAILY vitamin 05/08/23 cyanocobalamin (vitamin B-12) 1,000 mcg tablet 1,000 mcg PO DAILY vitamin 05/08/23 ferrous sulfate 325 mg (65 mg iron) tablet (Feosol) 325 mg PO DAILY supplement 05/08/23 lorazepam 0.5 mg tablet 0.25 mg (1/2 x 0.5 mg) PO PRN PRN anxiety #10 tabs 10/18/23 rivaroxaban 20 mg tablet (Xarelto) 20 mg PO QPM blood thinner #90 tabs 11/13/23 losartan 100 mg tablet 100 mg PO DAILY blood pressure #90 tabs 01/20/24 handicap placard #1 ea 01/23/24 budesonide 3 mg capsule,delayed,extended release 6 mg (2 x 3 mg) PO DAILY inflammation #60 ea 02/21/24 metoprolol tartrate 25 mg tablet 25 mg PO BID #0 tabs 04/20/24 Hospital Course Operations None Procedures None Summary of Care Provided Minutes Spent on Discharge: 30 Hospital Course: This 88-year-old white female was seen in the emergency room at [facility] with complaints of lightheadedness and right lower extremity weakness, stroke alert was called and there was no evidence of an acute process on her imaging studies. Patient also underwent an MRI of the brain without contrast which showed no evidence of stroke. Patient was placed in observation status on PCU, she had been noted to be bradycardic in the emergency room and was on a beta-vy. Her beta-vy dosage was decreased while she was in the hospital, she was seen by PT OT and speech therapy. This examiner did not feel the patient had a TIA. On 04/20/2024, patient was seen and examined:alert, oriented x3, no apparent distress and healthy appearing General Appearance: cooperative, well kempt and well developed Orientation / Consciousness: awake, oriented to person, oriented to place and oriented to time HEENT normocephalic, head/scalp atraumatic and moist oral mucous membranes Eyes PERRL, EOMs intact bilaterally and conjunctivae normal Neck supple, no JVD, thyroid normal and no carotid bruits General: trachea midline Resp normal respiratory effort, no retractions, no use of accessory muscles and clear to auscultation bilaterally Auscultation: Negative for rales, rhonchi or wheezes Cardio S1 normal heart sound, S2 normal heart sound, no murmurs, no rub and no gallops Cardio Narrative: Heart rate and rhythm is irregular GI normal to inspection, nondistended, normoactive bowel sounds, soft to palpation, non-tender and non-distended Extremity no clubbing, cyanosis or edema Skin no rashes or lesions noted General Skin Exam: no breakdown Neuro oriented x3, CN's II-XII intact bilaterally, moves all extremities, no focal motor deficits and no sensory deficits noted Sensorium / Orientation: awake and alert Speech: speech normal Psych affect normal On 04/20/2024, patient was felt to be stable for discharge home. Weight / BMI Weight Weight: 47.9 kg Body Mass Index (BMI) 20.6 ABG / Lab / Microbiology Data 04/19/24 09:05 04/19/24 09:05 Laboratory: Laboratory Results - last 24 hr 04/20/24 05:42: Triglycerides 133, Cholesterol 305 H, LDL Cholesterol 207 H, VLDL Cholesterol 27, HDL Cholesterol 71 Radiography Diagnostic Testing: Radiology Impression Chest X-Ray 04/19/24 10:25 IMPRESSION: No acute cardiopulmonary process identified. Electronically Signed: Christianne Martinez MD at 11:19 EDT Reading Location ID and State: [facility] / [place] Tel , Service support , Brain MRI 04/19/24 11:03 IMPRESSION: No evidence for acute infarct. Chronic involutional and white matter changes. Electronically Signed: Christianne Martinez MD at 13:06 EDT Reading Location ID and State: [facility] / [place] Tel , Service support , D/C Instructions Discharge Diet: No restrictions Weight Bearing Status: Full weight bearing Meaningful Use Info Meaningful Use Meaningful Use Diagnoses (Choose all that apply): None applicable Ischemic Stroke Statin Dosing Therapy Reference: STATIN DOSE THERAPY REFERENCE: * Patients > 75 years receive moderate or high dose statin therapy. * Patients 75 years or YOUNGER should receive HIGH intensity statin dose unless contraindicated. You will be required to document reason for non-treatment if statin daily dose does not meet guidelines. HIGH DOSE STATIN THERAPY DAILY Atorvastatin > than or = to 40 mg Rosuvastatin > than or = to 20 mg Amlodipine + Atorvastatin > than or = to 2.5/40 mg Ezetimibe + Simvastatin 10/80 mg Simvastatin 80mg Discharge Plan Admission Admit Date/Time: 04/19/24 11:18 Primary Reason for Your Visit: lightheadedness, bradycardia Attending Provider: Irwin Emmanuel Primary Care Provider: Deepika Fabian Discharge Orders/Prescriptions Prescriptions: New metoprolol tartrate 25 mg Tablet 25 mg PO BID Qty: 0 0RF Continued fluorometholone 0.1 % drops,suspension 1 drp ophthalmic (eye) BID PRN (Reason: Dry Eyes) cholecalciferol (vitamin D3) 25 mcg (1,000 unit) tablet 25 mcg PO DAILY cyanocobalamin (vitamin B-12) 1,000 mcg tablet 1,000 mcg PO DAILY ferrous sulfate [Feosol] 325 mg (65 mg iron) tablet 325 mg PO DAILY Xarelto 20 mg tablet 20 mg PO QPM Qty: 90 3RF Rx Instructions: must administer with evening meal lorazepam 0.5 mg tablet 0.25 mg PO PRN PRN (Reason: anxiety) Qty: 10 0RF (DME) handicap placard See Rx Instructions .ROUTE .MEDSUPPLY Qty: 1 0RF Rx Instructions: Length of time: 5 years Diagnosis: Impaired physical mobility Z74.09 losartan 100 mg tablet 100 mg PO DAILY Qty: 90 1RF budesonide 3 mg capsule,delayed,extend.release 6 mg PO DAILY Qty: 60 3RF Discontinued metoprolol tartrate 25 mg tablet 37.5 mg PO BID Qty: 270 1RF Referrals / Follow Up: Deepika Fabian MD [Primary Care Provider] - See Referral Note (As scheduled) Disposition Disposition (needs filled in before D/C Order can be placed): Home, Self Care Charges/Coding Visit Charges Inpatient E&M: 98521 Disch Hosp
[2024-04-20 11:12] VITALS: BP 129/66; BP 130/75; BP 135/99; PULSE 79; PULSE 83; PULSE 84
[2024-04-20 13:22] VITALS: BMI 20.6
== END 2024-04-20 11:00 | disposition home or self-care (01) ==
LOC: ED 11:08 → PCU 11:15
PROVIDERS: Admitting Provider Internal Medicine; Emergency Provider Emergency Medicine; PCP Internal Medicine; Visit Provider Internal Medicine
DX: R42 Dizziness and giddiness (principal); I48.11 Longstanding persistent atrial fibrillation; Z86.73 Personal history of transient ischemic attack (TIA), and cerebral infarction without residual deficits; E78.5 Hyperlipidemia, unspecified; R00.1 Bradycardia, unspecified; R29.898 Other symptoms and signs involving the musculoskeletal system; Z79.01 Long term (current) use of anticoagulants; I10 Essential (primary) hypertension; K21.9 Gastro-esophageal reflux disease without esophagitis; Z79.899 Other long term (current) drug therapy
CPT/HCPCS: 36415; 70450; 70496; 70498; 70551; 71045; 80048; 80061; 82962; 84484; 85025; 85610; 85730; 93005; 94762; 97162; 97165; 97802; 99221; 99285; Q9967; A4216; G0378

== ENCOUNTER → 2024-08-05 | Outpatient (CLI) | payer MEDICARE, OTHER, SELFPAY ==
--- NOTE | 2024-08-05 07:52 | CT_ITS ---
STUDY: CT ABDOMEN AND PELVIS WITH CONTRAST REASON FOR EXAM: Female, 88 years old. Diverticulitis RADIATION DOSAGE (If Supplied By Facility): CTDIvol = ( 18.71 ) mGy, DLP = ( 482.06 ) mGycm TECHNIQUE: Transaxial images were obtained from the dome of the diaphragm to the symphysis pubis without oral contrast. IV 100mL Isovue-300 was administered. Sagittal and coronal images were reconstructed. Individualized dose optimization techniques were used for this CT. COMPARISON: Comparison is made with prior study dated November 10, 2022. FINDINGS: Minimal increased linear markings at the lung bases suggestive of scarring. Coronary artery calcification. Normal liver. Status post cholecystectomy. Normal spleen. Normal pancreas. Normal bilateral adrenal glands. There is a 1.6 cm cyst in the mid lateral portion of the right kidney. Normal left kidney. Normal visualized stomach. Normal small intestine. There are multiple colonic diverticula consistent with diverticulosis. There is non-visualization of the appendix. There is diffuse atherosclerotic calcification of the abdominal aorta and its major visceral branches, without a demonstrated aneurysm. Normal inferior vena cava. Normal retroperitoneum. Normal urinary bladder. The uterus is atrophied. Normal abdominal wall. There are diffuse degenerative changes of the visualized lumbar spine. Stable loss of height of the superior endplate of the L1 vertebrae. CT/Abdomen/Pelvis WITH Contrast IMPRESSION: Sigmoid diverticulosis. No radiographic evidence of diverticulitis. Electronically Signed: Waylon Samayoa MD at 14:03 EDT ,
--- OUTSIDE RECORDS SUMMARY | 2024-08-05 08:10 | XMS RPT_ITS | CCD ---
Author Organization [facility] Inform ion Partnership [facility] Care Team Providers Care Breast Splitter Name Role Phone Harris Mota MD Primary Care Provider Vamsi Mota MD Primary Care Provider DEBBIE GALE Attending Unavailable VIRAJ ELLSWORTH Referring Unavailable [facility] Primary Car e Unavailable VIRAJ ELLSWORTH Admitting Unavailable VIRAJ ELLSWORTH Attending Unavailable CONSULT, NEUROLOGY Consulting Unavailable MAXIM IRWIN Referring Unavailable Harris Mota MD Primary Care Provider [phone] Harris Mota MD Primary Care Provider Harris Mota MD Primary Care Provider Allergies Allergy Classification Reported Allergen(s) Allergy Type Date of Onset Reaction(s) Facility (14 sources) Aloe vera preparation Drug Allergy 7 Other: See Comments [facility] (15 sources) Clindamycin Drug Allergy 8 Intolerance, Hypertension [facility] Work Phone: (14 sources) cumin allergenic extract Drug Allergy 0 GI Upset, Abdominal Discomfort [facility] Work Phone: (15 sources) Glucosamine Drug Allergy 0 Intolerance, Other: See Comments, Arthralgia [facility] (8 sources) HMG-CoA reductase inhibitor Propensity to adverse reactions to drug 0 Intolerance [facility] (13 sources) Hyoscyamine Drug Allergy 1 Swelling [facility] Work Phone: (13 sources) Turmeric extract Drug Allergy 0 GI Upset [facility] Work Phone: (14 sources) Venom-Wasp Propensity to adverse reactions to drug 1 Swelling [facility] (1 source) Benzocaine / Triclosan Drug Allergy 7 Fatigue [facility] (1 source) Curcumin Drug Allergy 0 Abdominal Discomfort [facility] (1 source) Hmg-Coa Reductase Inhibitors (Statins) Propensity to adverse reactions to drug 2 Myalgia [facility] (1 source) Hyoscyamine Drug Allergy 1 Swelling [facility] (1 source) Penicillins Propensity to adverse reactions to drug 2 Hives [facility] (6 sources) HMG-CoA reductase inhibitor Propensity to adverse reactions to drug 0 Intolerance [facility] Medications Current Medications Medication Drug Class(es) Dates Sig (Normalized) Sig (Original) apixaban 5 mg oral tablet (1 source) Factor Xa Inhibitor Start: 02-18-2022 End: 02-17-2022 take 1 tablet by mouth every twelve hours apixaban 5 MG tablet Indications: Cerebrovascular accident (CVA) due to embolism of right middle cerebral artery , Persistent atrial fibrillation Take 1 tablet by mouth every 12 hours. 60 tablet 2 02/18/2022 02/17/2022 Discontinued (Stop Taking at Discharge) Start: 02-18-2022 End: 02-17-2022 take 1 tablet by mouth every twelve hours apixaban 5 MG tablet Indications: Cerebrovascular accident (CVA) due to embolism of right middle cerebral artery , Persistent atrial fibrillation Take 1 tablet by mouth every 12 hours. 60 tablet 2 02/18/2022 02/17/2022 Discontinued (Stop Taking at Discharge) calcium carbonate 1500 mg / cholecalciferol 200 unt oral tablet (14 sources) Vitamin D Start: 10-18-2009 calcium carbon ate/vitamin d3(CALCIUM 600 + D(3) 600 MG (1,500)-200 UNIT TAB) Take one(1) tablet twice daily. 0 10/18/2009 Active Comment on above: Take one(1) tablet t wice daily. Cinnamon Bark (14 sources) CINNAMON BARK (C INNAMON ORAL) Take by mouth. Active CINNAMON BARK (C INNAMON ORAL) Take by mouth. 0 Active Comment on above: Take by mouth. ENZYMES,DIGESTIVE (DIGESTIVE ENZYMES ORAL) (14 sources) ENZYMES,DIGESTIV E (DIGESTIVE ENZYMES ORAL) Take by mouth as needed. Active ENZYMES,DIGESTIV E (DIGESTIVE ENZYMES ORAL) Take by mouth as needed. 0 Active Comment on above: Take by mouth as nee ded. Lactobacillus acidophilus (14 sources) LACTOBACILLUS AC IDOPHILUS (ACIDOPHILUS ORAL) Take by mouth as needed. Active LACTOBACILLUS AC IDOPHILUS (ACIDOPHILUS ORAL) Take by mouth as needed. 0 Active Comment on above: Take by mouth as nee ded. Magnesium (14 sources) take 1 tablet by mouth two times weekly Magnesium 250 mg tab Take 250 mg by mouth twice a week. Active take 1 tablet by mouth two times weekly Magnesium 250 mg tab Take 250 mg by mouth twice a week. 0 Active Comment on above: Take 250 mg by mouth twice a week. methylsulfonylmethane 500 mg oral capsule (14 sources) Start : 10-04 take 2 tablets by mouth once daily Methylsulfonylmethane (MSM) 500 mg ORAL Cap two tabs daily 0 10/04/2010 Active Comment on above: two tabs daily Naproxen (14 sources) Nonsteroidal Anti-inflammatory Drug naproxen sodium (MIRANDA VE ORAL) Take by mouth as needed. Active naproxen sodium (ALEVE ORAL) Take by mouth as needed. 0 Active Comment on above: Take by mouth as nee ded. OMEGA-3 FATTY ACIDS-FISH OIL 300 MG-1,000 MG CAP (14 sources) Start: 10-18-19 10 OMEGA-3 FATTY ACIDS-FISH OIL 300 MG-1,000 MG CAP 2400mg per day 0 10/18/2009 Active Comment on above: 2400mg per day red yeast rice 600 mg oral capsule (14 sources) Start: 10-18-19 10 RED YEAST RICE EXTRACT 600 MG CAP 1200mg per day 0 10/18/2009 Active Comment on above: 1200mg per day rivaroxaban 20 mg oral tablet (11 sources) Factor Xa Inhibitor Start: 02-18-20 End: 05-18-20 22 take 1 tablet by mouth once daily at dinner Rivaroxaban (Xarelto) 20 MG tablet Indications: Cerebrovascular accident (CVA) due to embolism of right middle cerebral artery , Persistent atrial fibrillation Take 1 tablet by mouth daily with dinner. 30 tablet 2 02/17/2022 05/18/2022 Active Comment on above: Take 20 mg by mouth daily with dinner. ubidecarenone 100 mg oral capsule (14 sources) Start: 08-08-20 16 take 2 capsules by mouth once daily coenzyme Q10 (CO Q-10) 100 mg cap capsule Take 2 capsules by mouth once daily. 0 08/08/2016 Active Comment on above: Take 2 capsules by m out once daily. Vitamin B Complex (14 sources) Start: 10-18-19 10 vitamin b complex(BALANCE B-50 TAB) use as directed 0 10/18/2009 Active Comment on above: use as directed Zinc (14 sources) take 1 tablet by mouth every week Zinc 50 mg tab Take 50 mg by mouth once each week. Active take 1 tablet by mouth every wee k Zinc 50 mg tab Take 50 mg by mouth once each week. 0 Active Comment on above: Take 50 mg by mouth once each week. Completed/Discontinued Medications Medication Drug Class(es) Dates Sig (Normalized) Sig (Original) Acetaminophen (1 source) Start: 02-16-2022 End: 02-17-2022 take 1 tablet by mouth every four hours as needed acetaminophen (TYLENOL) tablet 325 mg amLODIPine 5 mg oral tablet (16 sources) Dihydropyridine Calcium Channel Deysi Start: 09-17-2021 End: 02-17-2022 take 1 tablet by mouth once daily amLODIPine (NORVASC) 5 mg tablet Indications: Systolic hypertension, isolated Take 1 tablet by mouth once daily. 90 tablet 3 09/17/2021 Active Start: 08-23-2020 End: 08-17-2021 take 1 tablet by mouth once daily amLODIPine (NORVASC) 5 mg tablet Indications: Systolic hypertension, isolated Take 1 tablet by mouth once daily. 90 tablet 3 08/23/2020 08/17/2021 Discontinued Comment on above: Take 1 tablet by sammi once daily. aspirin 81 mg chewable tablet (1 source) Platelet Aggregation Inhibitor, Nonsteroidal Anti-inflammatory Drug Start: 2 End: 2 aspirin chewable tablet 81 mg cetirizine hydrochloride 10 mg oral tablet (13 sources) Histamine-1 Receptor Antagonist Start: 1 take 1 tablet by mouth once daily cetirizine (ZYRTEC) 10 mg tablet Indications: Bee sting, accidental or unintentional, initial encounter Take 1 tablet by mouth once daily. 60 tablet 0 05/24/2021 Active Comment on above: Take 1 tablet by sammi once daily. 0.4 ml enoxaparin sodium 100 mg/ml prefilled syringe (1 source) Low Molecular Weight Heparin Start: 2 End: 2 Enoxaparin Sodium (LOVENOX) injection 40 mg famotidine 20 mg oral tablet (2 sources) Histamine-2 Receptor Antagonist Start: 2 End: 2 faMOTIdine (PEPCID) tablet 20 mg Start: 08-25-2019 End: 06-16-2021 take 1 tablet by mouth every twenty-four hours as needed for gastroesophageal reflux disease and gastroesophageal reflux disease famotidine (PEPCID) 20 mg tablet Indications: Gastroesophageal reflux disease, esophagitis presence not specified Take 1 tablet by mouth at bedtime as needed. 90 tablet 3 08/25/2019 06/16/2021 Discontinued fluorometholone 1 mg/ml ophthalmic suspension (1 source) Corticosteroid Start: 12-02-2018 End: 06-16-2021 fluorometholone (FML LIQUID FILM) 0.1 % ophthalmic suspension Use 1 Drop in both eyes once daily. 12/02/2018 06/16/2021 Discontinued 1 ml hydrALAZINE hydrochloride 20 mg/ml injection (1 source) Arteriolar Vasodilator Start: 02-15-2022 End: 02-17-2022 hydrALAZINE (APRESOLINE) injection 10 mg hydrALAZINE (APRESOLINE) injection 10 mg (1 source) Start: 02-16-2022 End: 02-17-2022 take 10 mg intravenously every hour as needed hydrALAZINE (APRESOLINE) injection 10 mg hydroCHLOROthiazide 25 mg oral tablet (15 sources) Thiazide Diuretic Start: 09-17-2021 take 1 tablet by mouth once daily hydroCHLOROthiazide (HYDRODIURIL, ESIDRIX) 25 mg tablet Take 1 tablet by mouth once daily. 90 tablet 3 09/17/2021 Active Start: 08-23-2020 End: 08-17-2021 take 1 tablet by mouth once daily hydroCHLOROthiazide (HYDRODIURIL, ESIDRIX) 25 mg tablet Take 1 tablet by mouth once daily. 90 tablet 3 08/23/2020 08/17/2021 Discontinued Comment on above: Take 1 tablet by sammi th once daily. iohexol (OMNIPAQUE) 350 MG/ML injection 1-171 mL (1 source) Start: End: iohexol (OMNIPAQUE) 350 MG/ML injection 1-171 mL labetalol hydrochloride 5 mg/ml injectable solution (1 source) beta-Adrenergic Deysi Start: End: labetalol (NORMODYNE) injection 20 mg labetalol (NORMODYNE) injection 10 mg (1 source) Start: End: take 10 mg intravenously every hour as needed labetalol (NORMODYNE) injection 10 mg LORazepam 0.5 mg oral tablet (13 sources) Benzodiazepine Start: take 0.5 mg by mouth every twelve hours as needed for anxiety and anxiety LORazepam (ATIVAN) 0.5 mg Indications: Anxiety Take 1 tablet by mouth twice daily as needed for up to 30 days. 30 tablet 0 08/17/2021 Active Start: 08-23-2020 End: 01-14-2021 take 0.5 mg by mouth every twelve hours as needed for anxiety and anxiety LORazepam (ATIVAN) 0.5 mg Indications: Anxiety Take 1 tablet by mouth twice daily as needed for up to 30 days. 30 tablet 08/23/2020 01/14/2021 Discontinued Comment on above: Take 1 tablet by sammi th twice daily as needed for up to 30 days. losartan potassium 100 mg oral tablet (16 sources) Angiotensin 2 Receptor Deysi Start: 1 End: 2 take 1 tablet by mouth once daily losartan (COZAAR) 100 mg tablet Indications: Essential hypertension Take 1 tablet by mouth once daily 90 tablet 0 07/19/2022 Active Start: 08-23-2020 End: 08-17-2021 take 1 tablet by mouth once daily losartan (COZAAR) 100 mg tablet Indications: Essential hypertension Take 1 tablet by mouth once daily. 90 tablet 3 08/23/2020 08/17/2021 Discontinued Comment on above: Take 1 tablet by sammi th once daily. Take 1 tablet by sammi th once daily magnesium oxide 400 mg oral tablet (1 source) Start: 02-16-2022 End: 02-16-2022 magnesium oxide (MAG-OX) tablet 800 mg metoprolol tartrate 25 mg oral tablet (17 sources) beta-Adrenergic Deysi Start: 09-17-2021 End: 07-19-2022 take 1 tablet by mouth twice daily metoprolol tartrate, short acting, (LOPRESSOR) 25 mg tablet Indications: Systolic hypertension, isolated Take 1 tablet by mouth twice daily 180 tablet 0 07/19/2022 Active Start: 08-23-2020 End: 08-17-2021 take 1 tablet by mouth twice daily metoprolol tartrate, short acting, (LOPRESSOR) 25 mg tablet Indications: Systolic hypertension, isolated Take 1 tablet by mouth twice daily. 180 tablet 3 08/23/2020 08/17/2021 Discontinued Comment on above: Take 1 tablet by sammi th twice daily. Take 1 tablet by sammi th twice daily polyethylene glycol (MIRALAX) packet 17 g (1 source) Start: End: polyethylene glycol (MIRALAX) packet 17 g polyvinyl alcohol 0.014 ml/ml / povidone 6 mg/ml ophthalmic solution (1 source) Start: End: Polyvinyl Alcohol-Povidone PF (REFRESH) ophthalmic solution 1 drop microencapsulated potassium chloride 20 meq extended release oral tablet (1 source) Start: End: potassium chloride (K-DUR) tablet ER 40 mEq pravastatin sodium 10 mg oral tablet (1 source) HMG-CoA Reductase Inhibitor Start: End: take 1 tablet by mouth once daily pravastatin (PRAVACHOL) 10 mg tablet Indications: Hyperlipidemia, unspecified hyperlipidemia type Take 1 tablet by mouth once daily. 90 tablet 3 08/23/2020 08/17/2021 Discontinued prednisoLONE (1 source) Corticosteroid End: PREDNISOLONE ACETATE OPHTHALMIC Use in eyes. 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] Onset: 02-16-2022 Chronic Anxiety disorders (15 sources) Anxiety; Translations: [Anxiety disorder, unspecified] Onset: 09-10-2014 09-10-2014 Chronic Cardiac dysrhythmias (2 sources) Persistent atrial fibrillation; Translations: [Other persistent atrial fibrillation] Chronic Disorders of lipid metabolism (16 sources) Hyperlipidemia; Translations: [Hyperlipidemia, unspecified] Onset: 10-04-2010 04-21-2011 Chronic Essential hypertension (18 sources) Hypertensive disorder; Translations: [Essential (primary) hypertension] Onset: 10-04-2010 Resolved: 08-05-2018 04-03-2017 Chronic Inflammation; infection of eye (except that caused by tuberculosis or sexually transmitteddisease) (13 sources) Bilateral punctate keratitis of eyes; 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, bilateral] Onset: 02-21-2021 02-21-2021 Chronic Occlusion or stenosis of precerebral arteries (15 sources) Carotid atherosclerosis; Translations: [Occlusion and stenosis of unspecified carotid artery] Onset: 04-04-2013 04-04-2013 Chronic Osteoarthritis (15 sources) Degenerative joint disease involving multiple joints; Translations: [Polyosteoarthritis, unspecified] Onset: 04-04-2019 04-04-2019 Chronic Spondylosis; intervertebral disc disorders; other back problems (20 sources) Spondylosis of thoracolumbar spine; Translations: [Spondylosis without myelopathy or radiculopathy, thoracolumbar region] Onset: 04-04-2019 04-04-2019 Chronic Spondylosis; intervertebral disc disorders; other back problems (1 source) Chronic low back pain; Translations: [Chronic midline low back pain without sciatica] 08-26-2020 Episodic Past or Other Problems Problem Classification Problem Date Documented Da te Episodic/Chronic Allergic reactions (14 sources) Radiation-induced dermatosis; Translations: [Other skin changes due to chronic exposure to nonionizing radiation] Onset: 04-20-2009 04-20-2009 Episodic Other gastrointestinal disorders (14 sources) Oropharyngeal dysphagia; Translations: [Dysphagia, oropharyngeal phase] Onset: 04-13-2016 04-13-2016 Episodic Other skin disorders (1 source) Inflamed seborrheic keratosis; Translations: [Inflamed seborrheic keratosis] Onset: 04-20-2009 Resolved: 02-25-2015 02-25-2015 Episodic Other skin disorders (1 source) Disorder of skin; Translations: [Hypertrophic disorder of the skin, unspecified] Onset: 04-20-2009 Resolved: 02-25-2015 02-25-2015 Episodic Other skin disorders (1 source) Disorder of skin pigmentation; Translations: [Disorder of pigmentation, unspecified] Onset: 04-20-2009 Resolved: 02-25-2015 02-25-2015 Episodic Residual codes; unclassified (14 sources) Other specified health status; Translations: [Other drug allergy] Onset: 08-25-2019 08-25-2019 Episodic Unclassified (1 source) Onset: 02-17-2022 02-17-2022 Results Test Name Value Interpretation Reference Range [facility] DEA M[facility] ([id number]) 1935 F Date Time Provider Department 05/10/22 [facility] During your visit today, we recorded the following information about you: Neli Confer 05/10/2022 4:17 PM Signed Received labs from [facility]. Placed in provider's inbox for review. Route to MA scanning. Allergies As of Date: 05/10/2022 Noted Allergy Reaction ALOE VERA 02/07/2017 14 - Other: See Comments Comments: Decreased energy, body hurt AND 'I just felt terrible' CLINDAMYCIN 09/06/2018 5 - Intolerance Comments: Elevated blood pressures CUMIN 09/23/2020 8 - GI Upset GLUCOSAMINE 10/18/2009 5 - Intolerance 14 - Other: See Comments Comments: Swollen joints HYOSCYAMINE 11/02/2020 7 - Swelling Comments: Mouth swelling and blurry vision. STATINS (IMTHWIR-UCM-[id number] REDUCTAS*10/18/2009 5 - Intolerance Comments: Joint pain/swelling/elevated liver enzymes TURMERIC 09/23/2020 8 - GI Upset VENOM-WASP 06/02/2021 7 - Swelling Date Reviewed: 02/24/2022 Reviewed by: Paulina Santos LPN - Fully Assessed Reason for Visit: Outside Lab Results [[id number]] Cmt: [facility] Prescriptions as of 05/10/2022 - rivaroxaban (XARELTO) 20 mg tablet Take 20 mg by mouth daily with dinner. - LORazepam (ATIVAN) 0.5 mg Take 1 tablet by mouth twice daily as needed for up to 30 days. - metoprolol tartrate, short acting, (LOPRESSOR) 25 mg tablet Take 1 tablet by mouth twice daily. - losartan (COZAAR) 100 mg tablet Take 1 tablet by mouth once daily. - hydroCHLOROthiazide (HYDRODIURIL, ESIDRIX) 25 mg tablet Take 1 tablet by mouth once daily. - amLODIPine (NORVASC) 5 mg tablet Take 1 tablet by mouth once daily. - cetirizine (ZYRTEC) 10 mg tablet Take 1 tablet by mouth once daily. - naproxen sodium (ALEVE ORAL) Take by mouth as needed. - Zinc 50 mg tab Take 50 mg by mouth once each week. - Magnesium 250 mg tab Take 250 mg by mouth twice a week. - LACTOBACILLUS ACIDOPHILUS (ACIDOPHILUS ORAL) Take by mouth as needed. - ENZYMES,DIGESTIVE (DIGESTIVE ENZYMES ORAL) Take by mouth as needed. - coenzyme Q10 (CO Q-10) 100 mg cap capsule Take 2 capsules by mouth once daily. - CINNAMON BARK (CINNAMON ORAL) Take by mouth. - Methylsulfonylmethane (MSM) 500 mg ORAL Cap two tabs daily - RED YEAST RICE EXTRACT 600 MG CAP 1200mg per day - OMEGA-3 FATTY ACIDS-FISH OIL 300 MG-1,000 MG CAP 2400mg per day - vitamin b complex(BALANCE B-50 TAB) use as directed - calcium carbonate/vitamin d3(CALCIUM 600 + D(3) 600 MG (1,500)-200 UNIT TAB) Take one(1) tablet twice daily. 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] 04/04/2019 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.812] 04/04/2019 Primary osteoarthritis involving multiple joint*04/04/2019 Statin intolerance [Z78.9] 08/25/2019 Chronic midline low back pain without sciatica *08/30/2020 10/20/2020 Thygeson's disease, 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 Placed in provider's inbox for review. Route to MA scanning. Allergies As of Date: 05/08/2022 Noted Allergy Reaction ALOE VERA 02/07/2017 14 - Other: See Comments Comments: Decreased energy, body hurt AND 'I just felt terrible' CLINDAMYCIN 09/06/2018 5 - Intolerance Comments: Elevated blood pressures CUMIN 09/23/2020 8 - GI Upset GLUCOSAMINE 10/18/2009 5 - Intolerance 14 - Other: See Comments Comments: Swollen joints HYOSCYAMINE 11/02/2020 7 - Swelling Comments: Mouth swelling and blurry vision. STATINS ([id number]-EGJ REDUCTAS*10/18/2009 5 - Intolerance Comments: Joint pain/swelling/elevated liver enzymes TURMERIC 09/23/2020 8 - GI Upset VENOM-WASP 06/02/2021 7 - Swelling Date Reviewed: 02/24/2022 Reviewed by: Paulina Santos LPN - Fully Assessed Reason for Visit: Outside Lab Results [753] Cmt: [facility] Prescriptions as of 05/08/2022 - rivaroxaban (XARELTO) 20 mg tablet Take 20 mg by mouth daily with dinner. - LORazepam (ATIVAN) 0.5 mg Take 1 tablet by mouth twice daily as needed for up to 30 days. - metoprolol tartrate, short acting, (LOPRESSOR) 25 mg tablet Take 1 tablet by mouth twice daily. - losartan (COZAAR) 100 mg tablet Take 1 tablet by mouth once daily. - hydroCHLOROthiazide (HYDRODIURIL, ESIDRIX) 25 mg tablet Take 1 tablet by mouth once daily. - amLODIPine (NORVASC) 5 mg tablet Take 1 tablet by mouth once daily. - cetirizine (ZYRTEC) 10 mg tablet Take 1 tablet by mouth once daily. - naproxen sodium (ALEVE ORAL) Take by mouth as needed. - Zinc 50 mg tab Take 50 mg by mouth once each week. - Magnesium 250 mg tab Take 250 mg by mouth twice a week. - LACTOBACILLUS ACIDOPHILUS (ACIDOPHILUS ORAL) Take by mouth as needed. - ENZYMES,DIGESTIVE (DIGESTIVE ENZYMES ORAL) Take by mouth as needed. - coenzyme Q10 (CO Q-10) 100 mg cap capsule Take 2 capsules by mouth once daily. - CINNAMON BARK (CINNAMON ORAL) Take by mouth. - Methylsulfonylmethane (MSM) 500 mg ORAL Cap two tabs daily - RED YEAST RICE EXTRACT 600 MG CAP 1200mg per day - OMEGA-3 FATTY ACIDS-FISH OIL 300 MG-1,000 MG CAP 2400mg per day - vitamin b complex(BALANCE B-50 TAB) use as directed - calcium carbonate/vitamin d3(CALCIUM 600 + D(3) 600 MG (1,500)-200 UNIT TAB) Take one(1) tablet twice daily. 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] 04/04/2019 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.812] 04/04/2019 Primary osteoarthritis involving multiple joint*04/04/2019 Statin intolerance [Z78.9] 08/25/2019 Chronic midline low back pain without sciatica *08/30/2020 10/20/2020 Thygeson's disease, 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 Encounter Status:Closed by NELI MORELAND on 05/08/22 Normal [facility] CBC,PLATELETSon 02-17-2022 Hematocrit (Bld) [Volume fraction] 39.7 % Normal 34.9-44.3 [facility] Comment on above: Performed By: #### H HESHAM BOSE C7ED #### [facility] (DEFAULT) [address] [place] [address] Hemoglobin (Bld) [Mass/Vol] 13.1 g/dL Normal 11.4-15.2 [facility] Comment on above: Performed By: #### H HESHAM BOSE C7ED #### [facility] (DEFAULT) [address] [place] [id number] MCV (RBC) [Entitic vol] 93.4 fL Normal 79.6-97.7 [facility] Comment on above: Performed By: #### H JUICE LABHSTI1, C7ED #### [facility] (DEFAULT) [address] [place] [id number] Mean Cell Hgb 30.8 pg Normal 25.9-33.9 [facility] Comment on above: Performed By: #### Rubén BOSE LABWILLI C7ED #### [facility] (DEFAULT) [address] [place] [id number] Mean Cell Hgb Conc 33.0 g/dL Normal 31.4-35.9 [facility] Comment on above: Performed By: #### Rubén BOSE LABWILLI C7ED #### [facility] (DEFAULT) [address] [address] [place] [id number] Platelet mean volume (Bld) [Entitic vol] 10.4 fL Normal 8.5-12.2 [facility] Comment on above: Performed By: #### Rubén BOSE LABWILLI, C7ED #### [facility] (DEFAULT) [address] [place] [id number] Platelets (Bld) [#/Vol] 254 10*3/uL Normal 150-393 [facility] Comment on above: Performed By: #### Rubén FP LABWILLI, C7ED #### [facility] (DEFAULT) [address] [place] [phone] RBC (Bld) [#/Vol] 4.25 10*6/uL Normal 3.91-5.04 [facility] Comment on above: Performed By: #### H FP, LABHSTI1, C7ED #### [facility] (DEFAULT) [address] [place] [address] [id number] RBC Distribution 12.6 % Normal 10.8-14.9 [facility] Comment on above: Performed By: #### H JUICE, LABCESAR1, C7ED #### [facility] (DEFAULT) [address] [place] [address] WBC (Bld) [#/Vol] 6.60 10*3/uL Normal 3.99-11.19 [facility] Comment on above: Performed By: #### H JUICE, ANTONIOTIFFANIE1, C7ED #### [facility] (DEFAULT) [address] [place] [address] Erythrocyte distribution width (RBC) [Ratio] 12.6 % 10.8 - 14.9 % [facility] Hematocrit (Bld) [Volume fraction] 39.7 % 34.9 - 44.3 % [facility] Hemoglobin (Bld) [Mass/Vol] 13.1 g/dL 11.4 - 15.2 g/dL [facility] Interpretation and review of laboratory results Normal [facility] MCH (RBC) [Entitic mass] 30.8 pg 25.9 - 33.9 pg [facility] MCHC (RBC) [Mass/Vol] 33.0 g/dL 31.4 - 35.9 g/dL [facility] MCV (RBC) [Entitic vol] 93.4 fL 79.6 - 97.7 fL [facility] Platelet mean volume (Bld) [Entitic vol] 10.4 fL 8.5 - 12.2 fL [facility] Platelets (Bld) [#/Vol] 254 10*3/uL 150 - 393 K/uL [facility] RBC (Bld) [#/Vol] 4.25 10*6/uL [facility] WBC (Bld) [#/Vol] 6.60 10*3/uL 3.99 - 11. 19 K/uL [facility] CHEM 7 (LYTES,BUN,CREA,GLUC) on 02-17-2022 Anion gap [Moles/Vol] 15 mmol/L Normal 7-17 [facility] Comment on above: Performed By: #### C HM7 #### [facility] (DEFAULT) [address] [place] [id number] Chloride [Moles/Vol] 107 mmol/L Normal 98-108 [facility] Comment on above: Performed By: #### C HM7 #### [facility] (DEFAULT) [address] [place] [address] 26769 CO2 [Moles/Vol] 22 mmol/L Normal 21-31 [facility] Comment on above: Performed By: #### C HM7 #### [facility] (DEFAULT) [address] [place] [address] [phone] Creatinine [Mass/Vol] 0.73 mg/dL Normal 0.50-1.20 [facility] Comment on above: Performed By: #### C HM7 #### [facility] (DEFAULT) [address] [place] [address] GFR/1.73 sq M.predicted among non-blacks MDRD (S/P/Bld) [Vol rate/Area] 81 mL/min/{1.73_m2} Normal >=60 [facility] Comment on above: Result Comment: Repo rted eGFR is based on the CKD-EPI 2020 equation using creatinine, age, and sex. Performed By: #### C HM7 #### [facility] (DEFAULT) [address] [place] [address] Glucose [Mass/Vol] 90 mg/dL Normal 70-99 [facility] Comment on above: Performed By: #### C HM7 #### [facility] (DEFAULT) [address] [place] [address] Osmolality [Osmolality] 294 mosm/kg Normal 278-305 [facility] Comment on above: Performed By: #### C HM7 #### [facility] (DEFAULT) [address] [place] [address] 25773 Potassium [Moles/Vol] 4.0 mmol/L Normal 3.5-5.0 [facility] Comment on above: Performed By: #### C HM7 #### [facility] (DEFAULT) [address] [place] [address] Sodium [Moles/Vol] 140 mmol/L Normal 135-145 [facility] Comment on above: Performed By: #### C HM7 #### [facility] (DEFAULT) [address] [place] [address] Urea nitrogen [Mass/Vol] 18 mg/dL Normal 7-25 [facility] Comment on above: Performed By: #### C HM7 #### [facility] (DEFAULT) [address] [place] [address] Urea nitrogen/Creatinine [Mass ratio] 25 mg/mg Normal [facility] Comment on above: Performed By: #### C HM7 #### [facility] (DEFAULT) [address] [place] [address] Anion gap [Moles/Vol] 15 mmol/L 7 - 17 mmol/L [facility] Chloride [Moles/Vol] 107 mmol/L 98 - 10 8 mmol/L [facility] CO2 [Moles/Vol] 22 mmol/L 21 - 31 mmol/L [facility] Creatinine [Mass/Vol] 0.73 mg/dL 0.50 - 1.20 mg/dL [facility] GFR/1.73 sq M.predicted CKD-EPI (S/P/Bld) [Vol rate/Area] 81 >=60 mL/min/1.73m 2 [facility] Comment on above: Reported eGFR is bas ed on the CKD-EPI 2020 equation using creatinine, age, and sex. Glucose [Mass/Vol] 90 mg/dL 70 - 99 mg/dL [facility] Osmolality Calc [Osmolality] 294 [facility] Potassium [Moles/Vol] 4.0 mmol/L 3.5 - 5.0 mmol/L [facility] Sodium [Moles/Vol] 140 mmol/L 135 - 145 mmol/L [facility] Urea nitrogen [Mass/Vol] 18 mg/dL 7 - 25 mg/dL [facility] Urea nitrogen/Creatinine [Mass ratio] 25 mg/mg [facility] Cardiac echo study Procedure Ordered By: Mary Wall on 02-17-2022 Ao peak matilda 1.05 m/s [facility] Work Phone: AV LVOT peak gradient 4 mmHg [facility] Work Phone: AV peak gradient 4 mmHG [facility] Work Phone: AV regurgitation pressure 1/2 time 671.00 ms [facility] Work Phone: AV Velocity Ratio 0.97 [facility] Work Phone: CARMELINA (continuity Vmax) 2.70 cm2 [facility] Work Phone: CARMELINA index (continuity Vmax) 1.80 m/s [facility] Work Phone: Body surface area Derived from formula 1.5 m2 [facility] Work Phone: DI (Vmax) 0.97 [facility] Work Phone: E wave decelartion time 188.10 msec [facility] Work Phone: EST RAP 8.00 mmHg [facility] Work Phone: EST RVSP 30 mmHg [facility] Work Phone: FS 34 % 28 - 44 % [facility] Work Phone: IVC ostium 1.29 cm [facility] Work Phone: IVS 0.78 cm [facility] Work Phone: LA ESV BP (MOD) 119 [facility] Work [facility]: LA ESV BP (MOD) index 79 mL/m2 [facility] Work Phone: LA ESV SP 2CH (MOD) 130 mL [facility] Work Phone: LA ESV SP 4CH (MOD) 107 mL [facility] Work Phone: LV mass 69.55 g [facility] Work Phone: LV Mass Index 46.4 g/m2 [facility] Work Phone: LV RWT 0.42 [facility] Work Phone: LVIDD 3.50 cm [facility] Work Phone: LVIDS 2.30 cm [facility] Work Phone: LVOT area 2.77 cm2 [facility] Work Phone: LVOT diameter 1.88 cm [facility] Work Phone: LVOT peak matilda 1.02 m/s [facility] Work Phone: MV pk E matilda 1.03 m/s [facility] Work Phone: PV peak gradient 2 [facility] Work Phone: PV PK MATILDA 0.65 m/s [facility] Work Phone: PW 0.73 cm [facility] Work Phone: RA vol index 4CH (MOD) 64.00 mL/m2 [facility] Work Phone: Right atrium volume 4 chamber method of disks 96 mL [facility] Work Phone: RV Area diastolic 14.48 [facility]2 [facility] Work [facility]: RV Area systolic 9.57 cm2 [facility] Work Phone[facility] RV basal diam 4.21 cm [facility] Work Phone: RV Fractional area change 33.9 % [facility] Work Phone: RV long diam 5.10 cm [facility] Work Phone: RV mid diam 2.52 cm [facility] Work Phone: RV S' 12.16 cm/s [facility] Work Phone: RVOT peak gradient [address] [facility] Work Phone: RVOT peak matilda 0.61 m/s [facility] Work Phone: TAPSE 1.85 cm [facility] Work Phone: TR pk grad 22 mmHg [facility] Work Phone: TR pk matilda 2.35 m/s [facility] Work Phone: TV rest pulmonary artery pressure 27.07 mmHg [facility] Work Phone: [facility] Work Phone: Cardiac echo study Procedure on 02-17-2022 Cardiac rhythm is at rial fibrillation. Left Ventricle: Chamber size is normal. Normal wall thickness. Normal global wall motion. Regional wall motion is normal. Ejection fraction is normal (60 - 65%). Diastolic function not assessed (but likely abnormal). Right Ventricle: Chamber size is normal. Normal wall thickness. Segmental wall motion is normal. Systolic function is normal. Severe biatrial enlargement. Mitral Valve: Normal appearing leaflets. Leaflet mobility is normal. Mild regurgitation. No valve stenosis. Tricuspid Valve: Normal leaflets. Leaflet mobility is normal. Moderate regurgitation. No stenosis. Aortic Valve: Trileaflet valve. Mild leaflet calcification of all cusps. Leaflet sclerosis visualized. Leaflet mobility is normal. Mild regurgitation. No stenosis. Possible small interatrial shunt seen with color Doppler. Left Ventricle Chamber size is normal. Normal wall thickness. Normal global wall motion. Regional wall motion is normal. Ejection fraction is normal (60 - 65%). Diastolic function not assessed. Right Ventricle Chamber size is normal. Normal wall thickness. Segmental wall motion is normal. Systolic function is normal. Left Atrium Chamber size is severely enlarged. Right Atrium Chamber size is severely enlarged. IVC/SVC The inferior vena cava structure is abnormal. The diameter is <21 mm and decreases <50% during inspiration. Mitral Valve Normal appearing leaflets. Leaflet mobility is normal. Mild regurgitation. No valve stenosis. Tricuspid Valve Normal leaflets. Leaflet mobility is normal. Moderate regurgitation. No stenosis. Estimated right ventricular systolic pressure is 30 mmHg. Aortic Valve Trileaflet valve. Mild leaflet calcification of all cusps. Leaflet sclerosis visualized. Leaflet mobility is normal. Mild regurgitation. No stenosis. Pulmonic Valve Pulmonic valve not well visualized. Trace regurgitation. No stenosis. Pericardium Appears normal. No pericardial effusion. Septum The atrial septum is normal. A patent foramen ovale is present by color flow. 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 Aorta No dilation to extent seen. Study Details A complete echocardiography study was performed. Imaging system used: Siemens. [facility] Radiology Study observation (narrative) [facility] ECHOCARDIOGRAMon 02-17-2022 Echocardiography ? Cardiac rhythm is atrial fibrillation. ? Left Ventricle: Chamber size is normal. Normal wall thickness. Normal global wall motion. Regional wall motion is normal. Ejection fraction is normal (60 - 65%). Diastolic function not assessed (but likely abnormal). ? Right Ventricle: Chamber size is normal. Normal wall thickness. Segmental wall motion is normal. Systolic function is normal. ? Severe biatrial enlargement. ? Mitral Valve: Normal appearing leaflets. Leaflet mobility is normal. Mild regurgitation. No valve stenosis. ? Tricuspid Valve: Normal leaflets. Leaflet mobility is normal. Moderate regurgitation. No stenosis. ? Aortic Valve: Trileaflet valve. Mild leaflet calcification of all cusps. Leaflet sclerosis visualized. Leaflet mobility is normal. Mild regurgitation. No stenosis. ? Possible small interatrial shunt seen with color Doppler. Facility [facility] Patient Information Patient Name Dea Merritt Legal Sex Female Indication for Exam Priority: Routine Dx: Cerebrovascular accident (CVA), unspecified mechanism [I63.9 (ICD-10-CM)] Order Question Reason for Exam Stroke Interpretation Summary ? Cardiac rhythm is atrial fibrillation. ? Left Ventricle: Chamber size is normal. Normal wall thickness. Normal global wall motion. Regional wall motion is normal. Ejection fraction is normal (60 - 65%). Diastolic function not assessed (but likely abnormal). ? Right Ventricle: Chamber size is normal. Normal wall thickness. Segmental wall motion is normal. Systolic function is normal. ? Severe biatrial enlargement. ? Mitral Valve: Normal appearing leaflets. Leaflet mobility is normal. Mild regurgitation. No valve stenosis. ? Tricuspid Valve: Normal leaflets. Leaflet mobility is normal. Moderate regurgitation. No stenosis. ? Aortic Valve: Trileaflet valve. Mild leaflet calcification of all cusps. Leaflet sclerosis visualized. Leaflet mobility is normal. Mild regurgitation. No stenosis. ? Possible small interatrial shunt seen with color Doppler. Findings Left Ventricle Chamber size is normal. Normal wall thickness. Normal global wall motion. Regional wall motion is normal. Ejection fraction is normal (60 - 65%). Diastolic function not assessed. Right Ventricle Chamber size is normal. Normal wall thickness. Segmental wall motion is normal. Systolic function is normal. Left Atrium Chamber size is severely enlarged. Right Atrium Chamber size is severely enlarged. Septum The atrial septum is normal. A patent foramen ovale is present by color flow. 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 Mitral Valve Normal appearing leaflets. Leaflet mobility is normal. Mild regurgitation. No valve stenosis. Aortic Valve Trileaflet valve. Mild leaflet calcification of all cusps. Leaflet sclerosis visualized. Leaflet mobility is normal. Mild regurgitation. No stenosis. Tricuspid Valve Normal leaflets. Leaflet mobility is normal. Moderate regurgitation. No stenosis. Estimated right ventricular systolic pressure is 30 mmHg. Pulmonic Valve Pulmonic valve not well visualized. Trace regurgitation. No stenosis. Aorta No dilation to extent seen. Pericardium Appears normal. No pericardial effusion. IVC/SVC The inferior vena cava structure is abnormal. The diameter is <21 mm and decreases <50% during inspiration. Reading Providers Reading Role Read Date Mary Wall MD Test Form Setter, Echo [place] 02/17/2022 Left Heart Measurements LV - Systole LVIDD 3.5 cm IVS 0.78 cm LVIDS 2.3 cm PW 0.73 cm LV RWT 0.42 LV Mass Index 46.4 g/m2 LV - Diastole MV pk E matilda 1.03 m/s LV - HCM AV LVOT peak gradient 4 mmHg Left Atrium LA ESV SP 4CH (MOD) 107 mL LA ESV SP 2CH (MOD) 130 mL LA ESV BP (MOD) index 79 mL/m2 Right Heart Measurements RV - 2D RV basal diam 4.21 cm RV mid diam 2.52 cm RV long diam 5.1 cm RV Area diastolic 14.48 cm2 RV Area systolic 9.57 cm2 RV Fractional area change 33.9 % RV - Doppler TAPSE 1.85 cm RV S' 12.16 cm/s Right Atrium RA vol index 4CH (MOD) 64 mL/m2 EST RAP 8 mmHg [employer] Inferior Vena Cava IVC ostium 1.29 cm Doppler Measurements - Aortic Valve Stenosis LVOT diameter 1.88 cm LVOT area 2.77 cm2 LVOT peak matilda 1.02 m/s Ao peak matilda 1.05 m/s AV peak gradient 4 mmHG DI (Vmax) 0.97 CARMELINA (continuity Vmax) 2.7 cm2 CARMELINA index (continuity Vmax) 1.8 m/s Regurgitation AV regurgitation pressure 1/2 time 671 ms Doppler Measurements - Mitral Valve Stenosis MV pk E matilda 1.03 m/s TV rest pulmonary artery pressure 27.07 mmHg PISA-MS MV pk E matilda 1.03 m/s Doppler Measurements - Tricuspid Valve Stenosis IVC ostium 1.29 cm Regurgitation TR pk matilda 2.35 m/s TR pk grad 22 mmHg EST RAP 8 mmHg EST RVSP 30 mmHg (more content not included)... Normal [facility] EXTRA MICROon 02-17-2022 [facility] MR Brain WO contraston 02-17 IMPRESSION: 1. Foci of restricted diffusion likely due to acute/recent infarct involving the right basal ganglia with a few additional tiny foci more laterally and superiorly in the right frontal lobe and lateral to the trigone of the right lateral ventricle. Tiny hypointense SWI focus consistent with petechial type hemorrhagic change is demonstrated in the posterior lateral right basal ganglia portion of the recent infarct. 2. White matter abnormalities which are nonspecific although probably due to small vessel ischemic disease. OLOGY EXAM: MRI BRAIN WITH OUT CONTRAST, 02/17/2022 04:25 AM COMPARISON: No prior studies available for comparison. CLINICAL INDICATIONS: 86 years Female Stroke Workup; TECHNIQUE: A series of multisequence, multiplanar images of the brain are obtained without intravenous contrast. FINDINGS: Foci of restricted diffusion likely due to acute/recent infarct are demonstrated within the right basal ganglia. Additional tiny areas of restricted diffusion are also noted more superiorly and laterally in the right frontal lobe and in the parenchyma lateral to the trigone of the right lateral ventricle. These foci are located within the right middle cerebral artery territory. Small hypointense SWI signal consistent with small areas of petechial type hemorrhagic change is noted in the restricted diffusion located in the posterior lateral aspect of the right basal ganglia. There is no shift of the midline structures. There is prominent size of the ventricles and sulci consistent with age-appropriate parenchymal volume loss. There is a mild to moderate degree of signal abnormalities involving the cerebral hemisphere white matter bilaterally which are nonspecific although probably due to small vessel ischemic disease given the patient age. There is evidence of prior cataract surgery bilaterally. Orbital contents are otherwise unremarkable in appearance. Visualized paranasal sinuses and mastoid air cells are largely clear. Mild prominent soft tissue signal posterior to the dens probably represents degenerative meniscus thickening. RADIOLOGY Marisol Osman MD - 02/17/2022 EXAM: MRI BRAIN WITHOUT CONTRAST, 02/17/2022 04:25 AM COMPARISON: No prior studies available for comparison. CLINICAL INDICATIONS: 86 years Female Stroke Workup; TECHNIQUE: A series of multisequence, multiplanar images of the brain are obtained without intravenous contrast. FINDINGS: Foci of restricted diffusion likely due to acute/recent infarct are demonstrated within the right basal ganglia. Additional tiny areas of restricted diffusion are also noted more superiorly and laterally in the right frontal lobe and in the parenchyma lateral to the trigone of the right lateral ventricle. These foci are located within the right middle cerebral artery territory. Small hypointense SWI signal consistent with small areas of petechial type hemorrhagic change is noted in the restricted diffusion located in the posterior lateral aspect of the right basal ganglia. There is no shift of the midline structures. There is prominent size of the ventricles and sulci consistent with age-appropriate parenchymal volume loss. There is a mild to moderate degree of signal abnormalities involving the cerebral hemisphere white matter bilaterally which are nonspecific although probably due to small vessel ischemic disease given the patient age. There is evidence of prior cataract surgery bilaterally. Orbital contents are otherwise unremarkable in appearance. Visualized paranasal sinuses and mastoid air cells are largely clear. Mild prominent soft tissue signal posterior to the dens probably represents degenerative meniscus thickening. IMPRESSION IMPRESSION: 1. Foci of restricted diffusion likely due to acute/recent infarct involving the right basal ganglia with a few additional tiny foci more laterally and superiorly in the right frontal lobe and lateral to the trigone of the right lateral ventricle. Tiny hypointense SWI focus consistent with petechial type hemorrhagic change is demonstrated in the posterior lateral right basal ganglia portion of the recent infarct. 2. White matter abnormalities which are nonspecific although probably due to small vessel ischemic disease. [facility] Radiology Study observation (narrative) [facility] MR Brain WO contrastOrdered By: Marisol Osman on 02-17-2022 [facility] Work Phone: MRI BRAIN WITHOUT CONTRASTon 02-17-2022 MRI BRAIN WITHOUT CONTRAST EXAM: MRI BRAIN WITHOUT CONTRAST, 02/17/2022 04:25 AM COMPARISON: No prior studies available for comparison. CLINICAL INDICATIONS: 86 years Female Stroke Workup; TECHNIQUE: A series of multisequence, multiplanar images of the brain are obtained without intravenous contrast. FINDINGS: Foci of restricted diffusion likely due to acute/recent infarct are demonstrated within the right basal ganglia. Additional tiny areas of restricted diffusion are also noted more superiorly and laterally in the right frontal lobe and in the parenchyma lateral to the trigone of the right lateral ventricle. These foci are located within the right middle cerebral artery territory. Small hypointense SWI signal consistent with small areas of petechial type hemorrhagic change is noted in the restricted diffusion located in the posterior lateral aspect of the right basal ganglia. There is no shift of the midline structures. There is prominent size of the ventricles and sulci consistent with age-appropriate parenchymal volume loss. There is a mild to moderate degree of signal abnormalities involving the cerebral hemisphere white matter bilaterally which are nonspecific although probably due to small vessel ischemic disease given the patient age. There is evidence of prior cataract surgery bilaterally. Orbital contents are otherwise unremarkable in appearance. Visualized paranasal sinuses and mastoid air cells are largely clear. Mild prominent soft tissue signal posterior to the dens probably represents degenerative meniscus thickening. IMPRESSION: 1. Foci of restricted diffusion likely due to acute/recent infarct involving the right basal ganglia with a few additional tiny foci more laterally and superiorly in the right frontal lobe and lateral to the trigone of the right lateral ventricle. Tiny hypointense SWI focus consistent with petechial type hemorrhagic change is demonstrated in the posterior lateral right basal ganglia portion of the recent infarct. 2. White matter abnormalities which are nonspecific although probably due to small vessel ischemic disease. Normal [facility] CBC,PLATELETSon 02-16-2022 Hematocrit (Bld) [Volume fraction] 42.2 % Normal 34.9-44.3 [facility] Comment on above: Performed By: #### H [facility] #### [facility] (DEFAULT) [address] [address] Hemoglobin (Bld) [Mass/Vol] 13.6 g/dL Normal 11.4-15.2 [facility] Comment on above: Performed By: #### H [facility] #### [facility] (DEFAULT) [address] [address] MCV (RBC) [Entitic vol] 93.0 fL Normal 79.6-97.7 [facility] Comment on above: Performed By: #### H [facility] #### [facility] (DEFAULT) [address] [address] Mean Cell Hgb 30.0 pg Normal 25.9-33.9 [facility] Comment on above: Performed By: #### H EMO #### [facility] (DEFAULT) [address] [address] Mean Cell Hgb Conc 32.2 g/dL Normal 31.4-35.9 [facility] Comment on above: Performed By: #### H EMO #### [facility] (DEFAULT) [address] [place] [address] Platelet mean volume (Bld) [Entitic vol] 10.1 fL Normal 8.5-12.2 [facility] Comment on above: Performed By: #### H EMO #### [facility] (DEFAULT) [address] [place] [address] Platelets (Bld) [#/Vol] 257 10*3/uL Normal 150-393 [facility] Comment on above: Performed By: #### H EMO #### [facility] (DEFAULT) [address] [place] [id number] RBC (Bld) [#/Vol] 4.54 10*6/uL Normal 3.91-5.04 [facility] Comment on above: Performed By: #### H EMO #### [facility] (DEFAULT) [address] [place] [address] RBC Distribution 12.6 % Normal 10.8-14.9 [facility] Comment on above: Performed By: #### H EMOGC #### [facility] (DEFAULT) [address] [place] [address] WBC (Bld) [#/Vol] 7.07 10*3/uL Normal 3.99-11.19 [facility] Comment on above: Performed By: #### H EMO #### [facility] (DEFAULT) [address] [place] [address] Erythrocyte distribution width (RBC) [Ratio] 12.6 % 10.8 - 14.9 % [facility] Hematocrit (Bld) [Volume fraction] 42.2 % 34.9 - 44.3 % [facility] Hemoglobin (Bld) [Mass/Vol] 13.6 g/dL 11.4 - 15.2 g/dL [facility] Interpretation and review of laboratory results Normal [facility] MCH (RBC) [Entitic mass] 30.0 pg 25.9 - 33.9 pg [facility] MCHC (RBC) [Mass/Vol] 32.2 g/dL 31.4 - 35.9 g/dL [facility] MCV (RBC) [Entitic vol] 93.0 fL 79.6 - 97.7 fL [facility] Platelet mean volume (Bld) [Entitic vol] 10.1 fL 8.5 - 12.2 fL [facility] Platelets (Bld) [#/Vol] 257 10*3/uL 150 - 393 K/uL [facility] RBC (Bld) [#/Vol] 4.54 10*6/uL [facility] WBC (Bld) [#/Vol] 7.07 10*3/uL 3.99 - 11. 19 K/uL [facility] CHEM 7 (LYTES,BUN,CREA,GLUC) on 02-16-2022 Anion gap [Moles/Vol] 14 mmol/L Normal 7-17 [facility] Comment on above: Performed By: #### H HESHAM BOSE C7ED #### [facility] (DEFAULT) [address] [address] Chloride [Moles/Vol] 105 mmol/L Normal 98-108 [facility] Comment on above: Performed By: #### HESHAM RODARTE C7ED #### [facility] (DEFAULT) [address] [address] CO2 [Moles/Vol] 24 mmol/L Normal 21-31 [facility] Comment on above: Performed By: #### HESHAM RODARTE C7ED #### [facility] (DEFAULT) [address] [address] Creatinine [Mass/Vol] 0.87 mg/dL Normal 0.50-1.20 [facility] Comment on above: Performed By: #### HESHAM RODARTE C7ED #### [facility] (DEFAULT) [address] [place] [address] GFR/1.73 sq M.predicted among non-blacks MDRD (S/P/Bld) [Vol rate/Area] 66 mL/min/{1.73_m2} Normal >=60 [facility] Comment on above: Result Comment: Repo rted eGFR is based on the CKD-EPI 2020 equation using creatinine, age, and sex. Performed By: #### HESHAM RODARTE C7ED #### [facility] (DEFAULT) [address] [place] [address] Glucose [Mass/Vol] 121 mg/dL High 70-99 [facility] Comment on above: Performed By: #### HESHAM RODARTE C7ED #### [facility] (DEFAULT) [address] [place] [address] Osmolality [Osmolality] 294 mosm/kg Normal 278-305 [facility] Comment on above: Performed By: #### HESHAM RODARTE C7ED #### [facility] (DEFAULT) [address] [place] [address] Potassium [Moles/Vol] 3.4 mmol/L Low 3.5-5.0 [facility] Comment on above: Performed By: #### HESHAM RODARTE, C7ED #### [facility] (DEFAULT) [address] [place] [address] Sodium [Moles/Vol] 140 mmol/L Normal 135-145 [facility] Comment on above: Performed By: #### HESHAM RODARTE, C7ED #### [facility] (DEFAULT) [address] [place] [address] Urea nitrogen [Mass/Vol] 15 mg/dL Normal 7-25 [facility] Comment on above: Performed By: #### HESHAM RODARTE, C7ED #### [facility] (DEFAULT) [address] [place] [address] Urea nitrogen/Creatinine [Mass ratio] 17 mg/mg Normal [facility] Comment on above: Performed By: #### H , LABTI1, C7ED #### [facility] (DEFAULT) [address] [place] [address] Anion gap [Moles/Vol] 14 mmol/L 7 - 17 mmol/L [facility] Chloride [Moles/Vol] 105 mmol/L 98 - 10 8 mmol/L [facility] CO2 [Moles/Vol] 24 mmol/L 21 - 31 mmol/L [facility] Creatinine [Mass/Vol] 0.87 mg/dL 0.50 - 1.20 mg/dL [facility] GFR/1.73 sq M.predicted CKD-EPI (S/P/Bld) [Vol rate/Area] 66 >=60 mL/min/1.73m 2 [facility] Comment on above: Reported eGFR is bas ed on the CKD-EPI 2020 equation using creatinine, age, and sex. Glucose [Mass/Vol] 121 mg/dL High 70 - 99 mg/dL [facility] Osmolality Calc [Osmolality] 294 [facility] Potassium [Moles/Vol] 3.4 mmol/L Low 3.5 - 5.0 mmol/L [facility] Sodium [Moles/Vol] 140 mmol/L 135 - 145 mmol/L [facility] Urea nitrogen [Mass/Vol] 15 mg/dL 7 - 25 mg/dL [facility] Urea nitrogen/Creatinine [Mass ratio] 17 mg/mg [facility] CONTINUOUS CARDIAC MONITORIN G STRIPon 02-16-2022 [facility] CONTINUOUS CARDIAC MONITORIN G STRIPOrdered By: Unassigned Pacs on 02-16-2022 [facility] Work Phone: CT CEREBRAL PERFUSION ANALYS Catie 02-16-2022 CT CEREBRAL PERFUSION ANALYSIS EXAM: CT CEREBRAL PERFUSION ANALYSIS, 02/15/2022 22:36 PM COMPARISON: No previous study is available for comparison. 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 FINDINGS: Image quality: Normal bolus, wash in, wash out. Parametric maps: The cerebral blood volume (CBV) maps appear symmetric. There is heterogeneous decreased cerebral blood flow (CBF) asymmetrically along the right frontoparietal region, right basal ganglia and insula, and right parietotemporal region. There is asymmetrically increased time to drain (TTD) and mean transit time throughout a large portion throughout the right MCA territory involving the right frontal and parietal lobes, right basal ganglia and insula, and right parietotemporal region. There is heterogeneous areas of increased Tmax in the right MCA territory along the right basal ganglia, right frontoparietal region, and right parietotemporal region more posteriorly. IMPRESSION: Area of large mismatch perfusion abnormality consistent with ischemic penumbra throughout a large portion of the right MCA territory as described above. No matched perfusion deficit to suggest acute core infarct on CT perfusion. A Critical finding has been discussed with Dr. Ashley Jeff by Dr. Brett Ayala on 02/16/2022 12:11 AM . Normal [facility] IMPRESSION: Area of large mismatch perfusion abnormality consistent with ischemic penumbra throughout a large portion of the right MCA territory as described above. No matched perfusion deficit to suggest acute core infarct on CT perfusion. A Critical finding has been discussed with Dr. Ashley Jeff by Dr. Brett Ayala on 02/16/2022 12:11 AM . OLOGY EXAM: CT CEREBRAL PERFUSION ANALYSIS, 02/15/2022 22:36 PM COMPARISON: No previous study is available for comparison. 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 FINDINGS: Image quality: Normal bolus, wash in, wash out. Parametric maps: The cerebral blood volume (CBV) maps appear symmetric. There is heterogeneous decreased cerebral blood flow (CBF) asymmetrically along the right frontoparietal region, right basal ganglia and insula, and right parietotemporal region. There is asymmetrically increased time to drain (TTD) and mean transit time throughout a large portion throughout the right MCA territory involving the right frontal and parietal lobes, right basal ganglia and insula, and right parietotemporal region. There is heterogeneous areas of increased Tmax in the right MCA territory along the right basal ganglia, right frontoparietal region, and right parietotemporal region more posteriorly. RADIOLOGY Brett Ayala M D - 02/16/2022 EXAM: CT CEREBRAL PERFUSION ANALYSIS, 02/15/2022 22:36 PM COMPARISON: No previous study is available for comparison. 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 FINDINGS: Image quality: Normal bolus, wash in, wash out. Parametric maps: The cerebral blood volume (CBV) maps appear symmetric. There is heterogeneous decreased cerebral blood flow (CBF) asymmetrically along the right frontoparietal region, right basal ganglia and insula, and right parietotemporal region. There is asymmetrically increased time to drain (TTD) and mean transit time throughout a large portion throughout the right MCA territory involving the right frontal and parietal lobes, right basal ganglia and insula, and right parietotemporal region. There is heterogeneous areas of increased Tmax in the right MCA territory along the right basal ganglia, right frontoparietal region, and right parietotemporal region more posteriorly. IMPRESSION IMPRESSION: Area of large mismatch perfusion abnormality consistent with ischemic penumbra throughout a large portion of the right MCA territory as described above. No matched perfusion deficit to suggest acute core infarct on CT perfusion. A Critical finding has been discussed with Dr. Ashley Jeff by Dr. Brett Ayala on 02/16/2022 12:11 AM . [facility] CT CEREBRAL PERFUSION ANALYS ISOrdered By: Brett Ayala on 02-16-2022 [facility] Work Phone: CT HEAD WITHOUT CONTRASTon 0 02-16-2022 CT HEAD WITHOUT CONTRAST EXAM: CT HEAD WITHOUT CONTRAST, 02/15/2022 10:40 PM COMPARISON: None. CLINICAL INDICATIONS: 86 years Female cva; TECHNIQUE: A series of transaxial computerized tomographic images are obtained from base of skull to vertex without intravenous contrast. Axial whole-head and thin section posterior fossa slices are provided. Reformats: Sagittal and coronal. FINDINGS: No intracranial hemorrhage. No acute large territory infarct. No mass effect or midline shift. Ventricles are normal in size and configuration for patient's stated age. Patchy white matter hypoattenuation, nonspecific but presumably reflecting chronic microvascular change. Calvarium and skull base appear intact. Visualized sinuses show no air fluid levels. Visualized orbits are unremarkable. IMPRESSION: No intracranial hemorrhage or acute large territory infarct. Normal [facility] CT Head WO contraston 2021 IMPRESSION: No intracranial hemorrhage or acute large territory infarct. OLOGY EXAM: CT HEAD WITHOU T CONTRAST, 02/15/2022 10:40 PM COMPARISON: None. CLINICAL INDICATIONS: 86 years Female cva; TECHNIQUE: A series of transaxial computerized tomographic images are obtained from base of skull to vertex without intravenous contrast. Axial whole-head and thin section posterior fossa slices are provided. Reformats: Sagittal and coronal. FINDINGS: No intracranial hemorrhage. No acute large territory infarct. No mass effect or midline shift. Ventricles are normal in size and configuration for patient's stated age. Patchy white matter hypoattenuation, nonspecific but presumably reflecting chronic microvascular change. Calvarium and skull base appear intact. Visualized sinuses show no air fluid levels. Visualized orbits are unremarkable. RADIOLOGY Brett Ayala M D - 02/16/2022 EXAM: CT HEAD WITHOUT CONTRAST, 02/15/2022 10:40 PM COMPARISON: None. CLINICAL INDICATIONS: 86 years Female cva; TECHNIQUE: A series of transaxial computerized tomographic images are obtained from base of skull to vertex without intravenous contrast. Axial whole-head and thin section posterior fossa slices are provided. Reformats: Sagittal and coronal. FINDINGS: No intracranial hemorrhage. No acute large territory infarct. No mass effect or midline shift. Ventricles are normal in size and configuration for patient's stated age. Patchy white matter hypoattenuation, nonspecific but presumably reflecting chronic microvascular change. Calvarium and skull base appear intact. Visualized sinuses show no air fluid levels. Visualized orbits are unremarkable. IMPRESSION IMPRESSION: No intracranial hemorrhage or acute large territory infarct. [facility] HEMOGLOBIN [id number] By: Duarte Ellsworth on 02-16-2022 Average glucose Estimated from glycated hemoglobin (Bld) [Mass/Vol] 131 mg/dL [facility] HbA1c (Bld) [Mass fraction] 6.2 % High 4.7 - 5.6 % [facility] Interpretation and review of laboratory results Abnormal [facility] HEMOGLOBIN A1Con 02-16-2022 Glucose [Mass/Vol] 131 mg/dL Normal [facility] Comment on above: Performed By: #### H HESHAM BOSE C7ED #### [facility] (DEFAULT) [address] [address] HbA1c (Bld) [Mass fraction] 6.2 % High 4.7-5.6 [facility] Comment on above: Performed By: #### H HESHAM BOSE C7ED #### [facility] (DEFAULT) [address] [address] HEPATIC FUNCTION PANELon Albumin [Mass/Vol] 3.9 g/dL Normal 3.5-5.0 [facility] Comment on above: Performed By: #### H JUICE, LABHSTIFFANIE1, C7ED #### [facility] (DEFAULT) [address] [place] [address] ALP [Catalytic activity/Vol] 54 U/L Normal 32-126 [facility] Comment on above: Performed By: #### H JUICE, LABHSTIFFANIE1, C7ED #### [facility] (DEFAULT) [address] [place] [address] ALT [Catalytic activity/Vol] 23 U/L Normal 9-48 [facility] Comment on above: Performed By: #### H JUICE LABWILLI, C7ED #### [facility] (DEFAULT) [address] [place] [address] AST [Catalytic activity/Vol] 24 U/L Normal 10-39 [facility] Comment on above: Performed By: #### Rubén BOSE LABWILLI, C7ED #### [facility] (DEFAULT) [address] [place] [address] Bilirubin [Mass/Vol] 0.6 mg/dL Normal <1.5 [facility] Comment on above: Performed By: #### HESHAM RODARTE, C7ED #### [facility] (DEFAULT) [address] [place] [address] Bilirubin.indirect [Mass/Vol] 0.1 mg/dL Normal <0.3 [facility] Comment on above: Performed By: #### HESHAM RODARTE, C7ED #### [facility] (DEFAULT) [address] [place] [address] Protein [Mass/Vol] 6.7 g/dL Normal 6.4-8.3 [facility] Comment on above: Performed By: #### Rubén BOSE LABWILLI, C7ED #### [facility] (DEFAULT) [address] [place] [address] Albumin [Mass/Vol] 3.9 g/dL 3.5 - 5.0 g/dL [facility] ALP [Catalytic activity/Vol] 54 U/L 32 - 126 U/L [facility] ALT [Catalytic activity/Vol] 23 U/L 9 - 48 U/L [facility] AST [Catalytic activity/Vol] 24 U/L 10 - 39 U/L [facility] Bilirubin [Mass/Vol] 0.6 mg/dL <1.5 [facility] Bilirubin.direct [Mass/Vol] 0.1 mg/dL <0.3 [facility] Protein [Mass/Vol] 6.7 g/dL 6.4 - 8.3 g/dL [facility] LIPID PANEL WITH REFLEX TO M CRISELDAFRANK LDLon 02-16-2022 Calculated LDL Cholesterol 187 mg/dL High 0-99 [facility] Comment on above: Result Comment: [<10 0 mg/dL: Optimal] [100-129 mg/dL: Near Optimal] [130-159 mg/dL: Borderline High] [160-189 mg/dL: High] [>189 mg/dL: Very High] Performed By: #### Rubén BOSE, LABHSTI1, C7ED #### [facility] (DEFAULT) [address] [place] [address] Cholesterol [Mass/Vol] 285 mg/dL High <200 [facility] Comment on above: Result Comment: [<20 0 mg/dL: Desirable] [200-239 mg/dL: Borderline High] [>239 mg/dL: High] Performed By: #### Rubén BOSE, LABHSTI1, C7ED #### [facility] (DEFAULT) [address] [place] [address] Cholesterol in HDL [Mass/Vol] 71 mg/dL Normal >=40 [facility] Comment on above: Result Comment: [<40 mg/dL: Low (High Risk)] [>59 mg/dL: High (Low Risk)] Performed By: #### Rubén BOSE, LABHSTI1, C7ED #### [facility] (DEFAULT) [address] [place] [address] Non HDL Cholesterol 214 mg/dL High <130 [facility] Comment on above: Performed By: #### Rubén BOSE, LABHSTI1, C7ED #### [facility] (DEFAULT) [address] [place] [address] Total Cholesterol/HDL Ratio 4.0 Normal <4.5 [facility] Comment on above: Performed By: #### Rubén BOSE, LABHSTI1, C7ED #### [facility] (DEFAULT) [address] [place] [address] Triglyceride [Mass/Vol] 137 mg/dL Normal <150 [facility] Comment on above: Result Comment: [<15 0 mg/dL: Desirable] [150-199 mg/dL: Borderline] [200-499 mg/dL: High] [>500 mg/dL: Very High] Performed By: #### H HESHAM BOSE, C7ED #### [facility] (DEFAULT) [address] [place] [address] Cholesterol [Mass/Vol] 285 mg/dL High <200 [facility] Comment on above: [<200 mg/dL: Desirab le] [200-239 mg/dL: Borderline High] [>239 mg/dL: High] Cholesterol in HDL [Mass/Vol] 71 mg/dL >=40 [facility] Comment on above: [<40 mg/dL: Low (Hig h Risk)] [>59 mg/dL: High (Low Risk)] Cholesterol in HDL [Mass/Vol] 214 mg/dL High <130 [facility] Cholesterol in LDL [Mass/Vol] 187 mg/dL High 0 - 99 mg/dL [facility] Comment on above: [<100 mg/dL: Optimal ] [100-129 mg/dL: Near Optimal] [130-159 mg/dL: Borderline High] [160-189 mg/dL: High] [>189 mg/dL: Very High] Cholesterol.total/Ch olesterol in HDL [Mass ratio] 4.0 {ratio} <4.5 [facility] Triglyceride [Mass/Vol] 137 mg/dL <150 [facility] Comment on above: [<150 mg/dL: Desirab le] [150-199 mg/dL: Borderline] [200-499 mg/dL: High] [>500 mg/dL: Very High] LT BLUE TOP TUBEon [facility] MAGNESIUMon 02-16-2022 Magnesium [Mass/Vol] 1.9 mg/dL Normal 1.6-2.6 [facility] Comment on above: Performed By: #### H HESHAM BOSE, C7ED #### [facility] (DEFAULT) [address] [place] [address] Magnesium [Mass/Vol] 1.9 mg/dL 1.6 - 2 .6 mg/dL [facility] No Panel Informationon 02-16 Interpretation and review of laboratory results Abnormal [facility] Interpretation and review of laboratory results Normal [facility] TOXICOLOGY SCREEN URINE - UD RGOrdered By: Nathalia Nguyen on 02-16-2022 Barbiturates Ql (U) Negative Cutoff: 200 ng/mL [facility] Cannabinoids Screen Ql (U) Negative Cutoff: 50 ng/mL [facility] Drugs identified Screen Nom (U) Negative Negative [facility] Interpretation and review of laboratory results Normal [facility] For Medical Purposes Only. Nonforensic screen results are considered presumptive and no confirmatory testing will follow. Drugs are detected by immunoassay or Liquid Chromatography Mass Spectrometry (LC-MS/MS). The LC-MS/MS test was developed and its performance characteristics determined by the Toxicology Laboratory at [facility]. It has not been cleared or approved by the FDA. The laboratory is regulated under CLIA as qualified to perform high-complexity testing. This test is used for clinical purposes and should not be regarded as investigational or for research. The following drugs with their lowest level of detection in ng/ml(LOD) are included in this screen: 6 Monoacetylmorphine(300), 7 Aminoflunitrazepam(25), 7 Aminoclonazepam(50),7 hydroxymitragynine (100),Alphahydroxymidazol am (200), Alphahydrozyalprazolam(20 0), Alprazolam(50), Amitriptyline(50), Amphetamine(250), Atenolol(500),Benzoylecgo nine(50), Buprenorphine(100), Bupropion(25),Caffeine(15 000),Chlordiazepoxide(50) , Chlorpheniramine(100), Chlorpromazine(50), Citalopram(100), Clonazepam(200), Cocaine(25),Codeine(200), Cotinine(500),Desipramine (50), Desmethyldoxepin(100), Dextromethorphan(100), Diazepam(100), Dihydrocodeine(100), Diltazem(50), Diphenhydramine(100),Doxe pin(100),EDDP/methadone(1 00), Ephedrine/Pseudoephedrine (100),Fentanyl(25),Flunit razepam(100),Fluoxetine(2 00), Flurazepam(50),Gabapentin (1500), Haloperidol(25), Hydrocodone(100), Hydromorphone(200), Imipramine(50), Ketamine(25), Lidocaine(25),Lorazepam(1 00), Lysergide(LSD)(25),Maprot iline(200), MDA(250), MDMA(250), Meperidine(50),Midazolam (200),Methadone(50), Methamphetamine(500), Methylphenidate(50), Metoprolol(50), Morphine(200),Nalbuphine( 50), Naloxone(200), Norbuprenorphine(300), Nordiazepam(100), Norfentanyl(50),Noroxycod one (100), Norpropoxyphene(50), Nortriptyline(50), Olanzapine(200),Oxazepam( 200),Oxycodone(100),Oxymo rphone(200), Phencyclidine(PCP)(25), Pheniramine(25), Pregabalin(1500), Promethazine(50), Propoxyphene(100), Propanolol(50), Quetiapine(25), Quinidine(500), Ranitidine(500), Risperidone(100), Sertraline(50),Temazepam( 100), Thioridazine(100), Tramadol(50), Trazodone(25), Triazolam(100), Trifluoperazine (100),Venlafaxine(50), Verapamil(100), Zolpidem(200) [facility] TOXICOLOGY SCREEN URINE - UD RGon 02-16-2022 Barbiturates Negative Normal Cutoff: 200 ng/mL [facility] Comment on above: Order Comment: For M edical Purposes Only. Nonforensic screen results are considered presumptive and no confirmatory testing will follow. Drugs are detected by immunoassay or Liquid Chromatography Mass Spectrometry (LC-MS/MS). The LC-MS/MS test was developed and its performance characteristics determined by the Toxicology Laboratory at [facility]. It has not been cleared or approved by the FDA. The laboratory is regulated under CLIA as qualified to perform high-complexity testing. This test is used for clinical purposes and should not be regarded as investigational or for research. The following drugs with their lowest level of detection in ng/ml(LOD) are included in this screen: 6 Monoacetylmorphine(300), 7 Aminoflunitrazepam(25), 7 Aminoclonazepam(50),7 hydroxymitragynine (100),Alphahydroxymidazolam (200), Alphahydrozyalprazolam(200), Alprazolam(50), Amitriptyline(50), Amphetamine(250), Atenolol(500),Benzoylecgonine(50), Buprenorphine(100), Bupropion(25),Caffeine(78017),Chlordiazepoxide(50), Chlorpheniramine(100), Chlorpromazine(50), Citalopram(100), Clonazepam(200), Cocaine(25),Codeine(200), Cotinine(500),Desipramine(50), Desmethyldoxepin(100), Dextromethorphan(100), Diazepam(100), Dihydrocodeine(100), Diltazem(50), Diphenhydramine(100),Doxepin(100),EDDP/methadone(100), Ephedrine/Pseudoephedrine(100),Fentanyl(25),Flunitrazepam(100),Fl uoxetine(200), Flurazepam(50),Gabapentin(1500), Haloperidol(25), Hydrocodone(100), Hydromorphone(200), Imipramine(50), Ketamine(25), Lidocaine(25),Lorazepam(100), Lysergide(LSD)(25),Maprotiline(200), MDA(250), MDMA(250), Meperidine(50),Midazolam (200),Methadone(50), Methamphetamine(500), Methylphenidate(50), Metoprolol(50), Morphine(200),Nalbuphine(50), Naloxone(200), Norbuprenorphine(300), Nordiazepam(100), Norfentanyl(50),Noroxycodone (100), Norpropoxyphene(50), Nortriptyline(50), Olanzapine(200),Oxazepam(200),Oxycodone(100),Oxymorphone(200), Phencyclidine(PCP)(25), Pheniramine(25), Pregabalin(1500), Promethazine(50), Propoxyphene(100), Propanolol(50), Quetiapine(25), Quinidine(500), Ranitidine(500), Risperidone(100), Sertraline(50),Temazepam(100), Thioridazine(100), Tramadol(50), Trazodone(25), Triazolam(100), Trifluoperazine (100),Venlafaxine(50), Verapamil(100), Zolpidem(200) Performed By: #### U DRG #### [facility] (DEFAULT) [address] [place] [address] Cannabinoids Screen Ql (U) Negative Normal Cutoff: 50 ng/mL [facility] Comment on above: Order Comment: For M edical Purposes Only. Nonforensic screen results are considered presumptive and no confirmatory testing will follow. Drugs are detected by immunoassay or Liquid Chromatography Mass Spectrometry (LC-MS/MS). The LC-MS/MS test was developed and its performance characteristics determined by the Toxicology Laboratory at [facility]. It has not been cleared or approved by the FDA. The laboratory is regulated under CLIA as qualified to perform high-complexity testing. This test is used for clinical purposes and should not be regarded as investigational or for research. The following drugs with their lowest level of detection in ng/ml(LOD) are included in this screen: 6 Monoacetylmorphine(300), 7 Aminoflunitrazepam(25), 7 Aminoclonazepam(50),7 hydroxymitragynine (100),Alphahydroxymidazolam (200), Alphahydrozyalprazolam(200), Alprazolam(50), Amitriptyline(50), Amphetamine(250), Atenolol(500),Benzoylecgonine(50), Buprenorphine(100), Bupropion(25),Caffeine(35564),Chlordiazepoxide(50), Chlorpheniramine(100), Chlorpromazine(50), Citalopram(100), Clonazepam(200), Cocaine(25),Codeine(200), Cotinine(500),Desipramine(50), Desmethyldoxepin(100), Dextromethorphan(100), Diazepam(100), Dihydrocodeine(100), Diltazem(50), Diphenhydramine(100),Doxepin(100),EDDP/methadone(100), Ephedrine/Pseudoephedrine(100),Fentanyl(25),Flunitrazepam(100),Fl uoxetine(200), Flurazepam(50),Gabapentin(1500), Haloperidol(25), Hydrocodone(100), Hydromorphone(200), Imipramine(50), Ketamine(25), Lidocaine(25),Lorazepam(100), Lysergide(LSD)(25),Maprotiline(200), MDA(250), MDMA(250), Meperidine(50),Midazolam (200),Methadone(50), Methamphetamine(500), Methylphenidate(50), Metoprolol(50), Morphine(200),Nalbuphine(50), Naloxone(200), Norbuprenorphine(300), Nordiazepam(100), Norfentanyl(50),Noroxycodone (100), Norpropoxyphene(50), Nortriptyline(50), Olanzapine(200),Oxazepam(200),Oxycodone(100),Oxymorphone(200), Phencyclidine(PCP)(25), Pheniramine(25), Pregabalin(1500), Promethazine(50), Propoxyphene(100), Propanolol(50), Quetiapine(25), Quinidine(500), Ranitidine(500), Risperidone(100), Sertraline(50),Temazepam(100), Thioridazine(100), Tramadol(50), Trazodone(25), Triazolam(100), Trifluoperazine (100),Venlafaxine(50), Verapamil(100), Zolpidem(200) Performed By: #### U DRG #### [facility] (DEFAULT) [address] [place] [address] Drugs Detected Urine Tox Negative Normal Negative [facility] Comment on above: Order Comment: For M edical Purposes Only. Nonforensic screen results are considered presumptive and no confirmatory testing will follow. Drugs are detected by immunoassay or Liquid Chromatography Mass Spectrometry (LC-MS/MS). The LC-MS/MS test was developed and its performance characteristics determined by the Toxicology Laboratory at [facility]. It has not been cleared or approved by the FDA. The laboratory is regulated under CLIA as qualified to perform high-complexity testing. This test is used for clinical purposes and should not be regarded as investigational or for research. The following drugs with their lowest level of detection in ng/ml(LOD) are included in this screen: 6 Monoacetylmorphine(300), 7 Aminoflunitrazepam(25), 7 Aminoclonazepam(50),7 hydroxymitragynine (100),Alphahydroxymidazolam (200), Alphahydrozyalprazolam(200), Alprazolam(50), Amitriptyline(50), Amphetamine(250), Atenolol(500),Benzoylecgonine(50), Buprenorphine(100), Bupropion(25),Caffeine(54770),Chlordiazepoxide(50), Chlorpheniramine(100), Chlorpromazine(50), Citalopram(100), Clonazepam(200), Cocaine(25),Codeine(200), Cotinine(500),Desipramine(50), Desmethyldoxepin(100), Dextromethorphan(100), Diazepam(100), Dihydrocodeine(100), Diltazem(50), Diphenhydramine(100),Doxepin(100),EDDP/methadone(100), Ephedrine/Pseudoephedrine(100),Fentanyl(25),Flunitrazepam(100),Fl uoxetine(200), Flurazepam(50),Gabapentin(1500), Haloperidol(25), Hydrocodone(100), Hydromorphone(200), Imipramine(50), Ketamine(25), Lidocaine(25),Lorazepam(100), Lysergide(LSD)(25),Maprotiline(200), MDA(250), MDMA(250), Meperidine(50),Midazolam (200),Methadone(50), Methamphetamine(500), Methylphenidate(50), Metoprolol(50), Morphine(200),Nalbuphine(50), Naloxone(200), Norbuprenorphine(300), Nordiazepam(100), Norfentanyl(50),Noroxycodone (100), Norpropoxyphene(50), Nortriptyline(50), Olanzapine(200),Oxazepam(200),Oxycodone(100),Oxymorphone(200), Phencyclidine(PCP)(25), Pheniramine(25), Pregabalin(1500), Promethazine(50), Propoxyphene(100), Propanolol(50), Quetiapine(25), Quinidine(500), Ranitidine(500), Risperidone(100), Sertraline(50),Temazepam(100), Thioridazine(100), Tramadol(50), Trazodone(25), Triazolam(100), Trifluoperazine (100),Venlafaxine(50), Verapamil(100), Zolpidem(200) Performed By: #### U DRG #### [facility] (DEFAULT) [facility] [place] [address] URINE DIPSTICK; REFLEX MICRO SCOPY; REFLEX CULTURE PERFORMABLEon 02-16-2022 Appearance (U) Clear Normal Clear [facility] Comment on above: Performed By: #### H FP, LABHSTI1, C7ED #### [facility] (DEFAULT) [address] [place] [address]146 Blood Urine Negative Normal Negative [facility] Comment on above: Performed By: #### Rubén BOSE, LABHSTI1, C7ED #### [facility] (DEFAULT) [address] [place] [address] 31797 Color (U) Yellow Normal Yellow [facility] Comment on above: Performed By: #### H JUICE, LABHSTI1, C7ED #### [facility] (DEFAULT) [address] [place] [address] 66165 Glucose Ql (U) Negative Normal Negative [facility] Comment on above: Performed By: #### H JUICE, LABHSTI1, C7ED #### [facility] (DEFAULT) [address] [place] [address] 24070 Ketones Ql (U) Negative Normal Negative [facility] Comment on above: Performed By: #### Rubén BOSE, LABHSTI, C7ED #### [facility] (DEFAULT) [address] [place] [address] 81279 Leukocyte esterase Test strip Ql (U) Negative Normal Negative [facility] Comment on above: Performed By: #### Rubén BOSE, LABHSTI, C7ED #### [facility] (DEFAULT) [address] [place] [address] 27980 Nitrites Urine Negative Normal Negative [facility] Comment on above: Performed By: #### H JUICE, LABHSTI1, C7ED #### [facility] (DEFAULT) [address] [place] [address] 59959 pH (U) 5.5 [pH] Normal 5.0-7.0 [facility] Comment on above: Performed By: #### H JUICE, LABHSTI1, C7ED #### [facility] (DEFAULT) [address] [place] [address] 78842 Protein Urine Negative Normal Negative [facility] Comment on above: Performed By: #### H JUICE LABTIFFANIE1, C7ED #### [facility] (DEFAULT) [address] [place] [address] 58625 Specific [place] Urine <=1.005 Normal 1.001-1.035 [facility] Comment on above: Performed By: #### H JUICE LABTIFFANIE1, C7ED #### [facility] (DEFAULT) [address] [place] [address] 46605 Urobilinogen Urine 0.2 E.U./dL Normal 0.2 E.U/d L, 1.0 E.U/dL [facility] Comment on above: Performed By: #### H JUICE [facility], C7ED #### [facility] (DEFAULT) [address] [place] [address] 35225 Appearance (U) Clear Clear [facility] Color (U) Yellow Yellow [facility] Glucose Test strip (U) [Mass/Vol] Negative Negative [facility] Interpretation and review of laboratory results Normal [facility] Ketones (U) [Mass/Vol] Negative Negative [facility] Leukocyte esterase Test strip Ql (U) Negative Negative [facility] Nitrite Ql (U) Negative Negative [facility] pH (U) 5.5 [pH] 5.0 - 7.0 [facility] Protein (U) [Mass/Vol] Negative Negative [facility] RBC (U) [#/Vol] Negative Negative [facility] Specific gravity (U) [Rel density] <=1.005 [facility] Urobilinogen (U) [Mass/Vol] 0.2 E.U./dL 0.2 E.U/dL, 1.0 E.U/dL [facility] CBC AND ELECTRONIC DIFFon Basophils (Bld) [#/Vol] 0.09 10*3/uL Normal 0.00-0.15 [facility] Comment on above: Performed By: #### L AB980 #### [facility] (DEFAULT) [address] [place] [address] 57036 Basophils/100 WBC (Bld) 1.4 % Normal [facility] Comment on above: Performed By: #### L AB980 #### [facility] (DEFAULT) [address] [place] [address] 01553 DIFF STATUS Electronic Differential Normal [facility] Comment on above: Performed By: #### L AB980 #### [facility] (DEFAULT) [address] [place] [address] 18794 Eosinophils (Bld) [#/Vol] 0.20 10*3/uL Normal 0.00-0.42 [facility] Comment on above: Performed By: #### L AB980 #### [facility] (DEFAULT) [address] [place] [address] 86006 Eosinophils/100 WBC (Bld) 3.1 % Normal [facility] Comment on above: Performed By: #### L AB980 #### [facility] (DEFAULT) [address] [place] [address] 96268 Hematocrit (Bld) [Volume fraction] 43.8 % Normal 34.9-44.3 [facility] Comment on above: Performed By: #### L AB980 #### [facility] (DEFAULT) [address] [place] [address] 93356 Hemoglobin (Bld) [Mass/Vol] 13.8 g/dL Normal 11.4-15.2 [facility] Comment on above: Performed By: #### L AB980 #### [facility] (DEFAULT) [address] [place] [address] 96826 Immature Grans % 0.2 % Normal [facility] Comment on above: Performed By: #### L AB980 #### [facility] (DEFAULT) [address] [place] [address] 88600 Immature Grans Absolute <0.04 Normal <=0.09 [facility] Comment on above: Performed By: #### L AB980 #### [facility] (DEFAULT) [address] [place] [address] 41572 Lymphocytes (Bld) [#/Vol] 2.51 10*3/uL Normal 1.16-3.51 [facility] Comment on above: Performed By: #### L AB980 #### [facility] (DEFAULT) [address] [place] [address] 51604 Lymphocytes/100 WBC (Bld) 38.6 % Normal [facility] Comment on above: Performed By: #### L AB980 #### [facility] (DEFAULT) [address] [address] MCV (RBC) [Entitic vol] 96.1 fL Normal 79.6-97.7 [facility] Comment on above: Performed By: #### L AB980 #### [facility] (DEFAULT) [address] [address] Mean Cell Hgb 30.3 pg Normal 25.9-33.9 [facility] Comment on above: Performed By: #### L AB980 #### [facility] (DEFAULT) [address] [address] Mean Cell Hgb Conc 31.5 g/dL Normal 31.4-35.9 [facility] Comment on above: Performed By: #### L AB980 #### [facility] (DEFAULT) [address] [place] [address] 87525 Monocytes (Bld) [#/Vol] 0.51 10*3/uL Normal 0.22-0.87 [facility] Comment on above: Performed By: #### L AB980 #### [facility] (DEFAULT) [address] [address] Monocytes/100 WBC (Bld) 7.8 % Normal [facility] Comment on above: Performed By: #### L AB980 #### [facility] (DEFAULT) [address] [place] [address] 77097 Nucleated RBC 0.0 /100 WBC Normal <=0.2 [facility] Comment on above: Performed By: #### L AB980 #### [facility] (DEFAULT) [address] [place] [address] 92916 Platelet mean volume (Bld) [Entitic vol] 10.0 fL Normal 8.5-12.2 [facility] Comment on above: Performed By: #### L AB980 #### [facility] (DEFAULT) [address] [place] [address] 85340 Platelets (Bld) [#/Vol] 250 10*3/uL Normal 150-393 [facility] Comment on above: Performed By: #### L AB980 #### [facility] (DEFAULT) [address] [place] [address] 07033 RBC (Bld) [#/Vol] 4.56 10*6/uL Normal 3.91-5.04 [facility] Comment on above: Performed By: #### L AB980 #### [facility] (DEFAULT) [address] [place] [address] 45569 RBC Distribution 12.9 % Normal 10.8-14.9 [facility] Comment on above: Performed By: #### L AB980 #### [facility] (DEFAULT) [address] [place] [address] 54828 Segs + Bands Auto 48.9 % Normal [facility] Comment on above: Performed By: #### L AB980 #### [facility] (DEFAULT) [address] [place] [address] 47467 Segs + Bands,Absolute Auto 3.18 K/uL Normal 1.64-7.28 [facility] Comment on above: Performed By: #### L AB980 #### [facility] (DEFAULT) [address] [place] [address] 63698 WBC (Bld) [#/Vol] 6.50 10*3/uL Normal 3.99-11.19 [facility] Comment on above: Performed By: #### L AB980 #### [facility] (DEFAULT) [address] [place] [address] Basophils (Bld) [#/Vol] 0.09 10*3/uL 0.00 - 0.15 K/uL [facility] Basophils/100 WBC (Bld) 1.4 % [facility] Differential cell count method Nom (Bld) Electronic Differential [facility] Eosinophils (Bld) [#/Vol] 0.20 10*3/uL 0.00 - 0.42 K/uL [facility] Eosinophils/100 WBC (Bld) 3.1 % [facility] Erythrocyte distribution width (RBC) [Ratio] 12.9 % 10.8 - 14.9 % [facility] Hematocrit (Bld) [Volume fraction] 43.8 % 34.9 - 44.3 % [facility] Hemoglobin (Bld) [Mass/Vol] 13.8 g/dL 11.4 - 15.2 g/dL [facility] Immature granulocytes (Bld) [#/Vol] 10*3/uL <=0.09 K/uL [facility] Immature granulocytes/100 WBC (Bld) 0.2 % [facility] Lymphocytes (Bld) [#/Vol] 2.51 10*3/uL 1.16 - 3.51 K/uL [facility] Lymphocytes/100 WBC (Bld) 38.6 % [facility] MCH (RBC) [Entitic mass] 30.3 pg 25.9 - 33.9 pg [facility] MCHC (RBC) [Mass/Vol] 31.5 g/dL 31.4 - 35.9 g/dL [facility] MCV (RBC) [Entitic vol] 96.1 fL 79.6 - 97.7 fL [facility] Monocytes (Bld) [#/Vol] 0.51 10*3/uL 0.22 - 0.87 K/uL [facility] Monocytes/100 WBC (Bld) 7.8 % [facility] Neutrophils (Bld) [#/Vol] 3.18 10*3/uL 1.64 - 7.28 K/uL [facility] Nucleated RBC/100 WBC (Bld) [Ratio] 0.0 % <=0.2 /100 WBC [facility] Platelet mean volume (Bld) [Entitic vol] 10.0 fL 8.5 - 12.2 fL [facility] Platelets (Bld) [#/Vol] 250 10*3/uL 150 - 393 K/uL [facility] RBC (Bld) [#/Vol] 4.56 10*6/uL [facility] Segmented neutrophils/100 WBC (Bld) 48.9 % [facility] WBC (Bld) [#/Vol] 6.50 10*3/uL 3.99 - 11. 19 K/uL [facility] CHM 7 - EDon 02-15-2022 Anion gap [Moles/Vol] 13 mmol/L Normal 7-17 [facility] Comment on above: Performed By: #### Rubén BOSE LABHSTI1, C7ED #### [facility] (DEFAULT) [address] [place] [address] 49676 Chloride [Moles/Vol] 102 mmol/L Normal 98-108 [facility] Comment on above: Performed By: #### Rubén BOSE LABHSTI1, C7ED #### [facility] (DEFAULT) [address] [place] [address] 27912 CO2 [Moles/Vol] 25 mmol/L Normal 21-31 [facility] Comment on above: Performed By: #### Rubén BOSE LABHSTI1, C7ED #### [facility] (DEFAULT) [address] [place] [address] 72987 Creatinine [Mass/Vol] 0.73 mg/dL Normal 0.50-1.20 [facility] Comment on above: Performed By: #### Rubén BOSE, LABHSTI1, C7ED #### [facility] (DEFAULT) [address] [place] [address] 57498 GFR/1.73 sq M.predicted among non-blacks MDRD (S/P/Bld) [Vol rate/Area] 81 mL/min/{1.73_m2} Normal >=60 [facility] Comment on above: Result Comment: Repo rted eGFR is based on the CKD-EPI 2020 equation using creatinine, age, and sex. Performed By: #### HESHAM RODARTE C7ED #### [facility] (DEFAULT) [address] [place] [address] 80942 Glucose [Mass/Vol] 94 mg/dL Normal 70-99 [facility] Comment on above: Performed By: #### HESHAM RODARTE C7ED #### [facility] (DEFAULT) [address] [place] [address] 48893 Osmolality [Osmolality] 286 mosm/kg Normal 278-305 [facility] Comment on above: Performed By: #### HESHAM RODARTE C7ED #### [facility] (DEFAULT) [address] [place] [address] 82849 Potassium [Moles/Vol] 3.6 mmol/L Normal 3.5-5.0 [facility] Comment on above: Performed By: #### HESHAM RODARTE C7ED #### [facility] (DEFAULT) [address] [place] [address] 94356 Sodium [Moles/Vol] 136 mmol/L Normal 135-145 [facility] Comment on above: Performed By: #### HESHAM RODARTE C7ED #### [facility] (DEFAULT) [address] [place] [address] 84208 Urea nitrogen [Mass/Vol] 17 mg/dL Normal 7-25 [facility] Comment on above: Performed By: #### HESHAM RODARTE C7ED #### [facility] (DEFAULT) [address] [place] [address] 42593 Urea nitrogen/Creatinine [Mass ratio] 23 mg/mg Normal [facility] Comment on above: Performed By: #### H HESHAM BOSE, C7ED #### [facility] (DEFAULT) [address] [place] [address] Anion gap [Moles/Vol] 13 mmol/L 7 - 17 mmol/L [facility] Chloride [Moles/Vol] 102 mmol/L 98 - 10 8 mmol/L [facility] CO2 [Moles/Vol] 25 mmol/L 21 - 31 mmol/L [facility] Creatinine [Mass/Vol] 0.73 mg/dL 0.50 - 1.20 mg/dL [facility] GFR/1.73 sq M.predicted CKD-EPI (S/P/Bld) [Vol rate/Area] 81 >=60 mL/min/1.73m 2 [facility] Comment on above: Reported eGFR is bas ed on the CKD-EPI 2020 equation using creatinine, age, and sex. Glucose [Mass/Vol] 94 mg/dL 70 - 99 mg/dL [facility] Osmolality Calc [Osmolality] 286 [facility] Potassium [Moles/Vol] 3.6 mmol/L 3.5 - 5.0 mmol/L [facility] Sodium [Moles/Vol] 136 mmol/L 135 - 145 mmol/L [facility] Urea nitrogen [Mass/Vol] 17 mg/dL 7 - 25 mg/dL [facility] Urea nitrogen/Creatinine [Mass ratio] 23 mg/mg [facility] CT CEREBRAL PERFUSION ANALYS Catie 02-15-2022 Radiology Study observation (narrative) [facility] CT Head WO contraston 2021 Radiology Study observation (narrative) [facility] HEPATIC FUNCTION PANELon Albumin [Mass/Vol] 4.1 g/dL Normal 3.5-5.0 [facility] Comment on above: Performed By: #### H CATE BOSE1, C7ED #### [facility] (DEFAULT) [address] [place] [address] ALP [Catalytic activity/Vol] 56 U/L Normal 32-126 [facility] Comment on above: Performed By: #### Rubén BOSE LABHSLOU, C7ED #### [facility] (DEFAULT) [address] [place] [address] 17945 ALT [Catalytic activity/Vol] 27 U/L Normal 9-48 [facility] Comment on above: Performed By: #### Rubén BOSE LABWILLI, C7ED #### [facility] (DEFAULT) [address] [place] [address] 33760 AST [Catalytic activity/Vol] 30 U/L Normal 10-39 [facility] Comment on above: Performed By: #### HESHAM RODARTE C7ED #### [facility] (DEFAULT) [address] [place] [address] 90083 Bilirubin [Mass/Vol] 0.6 mg/dL Normal <1.5 [facility] Comment on above: Performed By: #### HESHAM RODARTE C7ED #### [facility] (DEFAULT) [address] [place] [address] 99241 Bilirubin.indirect [Mass/Vol] mg/dL Normal <0.3 [facility] Comment on above: Performed By: #### Rubén BOSE LABWILLI C7ED #### [facility] (DEFAULT) [address] [place] [address] 50256 Protein [Mass/Vol] 6.9 g/dL Normal 6.4-8.3 [facility] Comment on above: Performed By: #### Rubén BOSE LABHSLOU, C7ED #### [facility] (DEFAULT) [address] [place] [address] 63646 Albumin [Mass/Vol] 4.1 g/dL 3.5 - 5.0 g/dL [facility] ALP [Catalytic activity/Vol] 56 U/L 32 - 126 U/L [facility] ALT [Catalytic activity/Vol] 27 U/L 9 - 48 U/L [facility] AST [Catalytic activity/Vol] 30 U/L 10 - 39 U/L [facility] Bilirubin [Mass/Vol] 0.6 mg/dL <1.5 [facility] Bilirubin.direct [Mass/Vol] mg/dL <0.3 mg/dL [facility] Protein [Mass/Vol] 6.9 g/dL 6.4 - 8.3 g/dL [facility] HIGH SENSITIVITY TROPONIN I - SINGLE ORDERon 02-15-2022 hs-Troponin I 7 ng/L Normal <34 [facility] Comment on above: Order Comment: Acute Coronary Syndrome (ACS): Initial Evaluation and Management: [email or web address] Performed By: #### H FP, LABHSTI1, C7ED #### [facility] (DEFAULT) [address] [place] [address] Interpretation and review of laboratory results Normal [facility] Troponin I.cardiac DL <= 0.01 ng/mL [Mass/Vol] 7 ng/L <34 [facility] No Panel Informationon 02-15 Interpretation and review of laboratory results Normal [facility] PTINR-STROKEon 02-15-2022 INR Coag (PPP) [Relative time] 1.1 {INR} Normal 0.9-1.1 [facility] Comment on above: Performed By: #### P TISTR, PTT #### [facility] (DEFAULT) [address] [place] [address] 44869 PT Coag (PPP) [Time] 14.0 s Normal 11.9-14.2 [facility] Comment on above: Performed By: #### P TISTR, PTT #### [facility] (DEFAULT) [address] [place] [address] 71383 INR Coag (Bld) [Relative time] 1.1 {INR} [facility] Interpretation and review of laboratory results Normal [facility] PT Coag (PPP) [Time] 14.0 s [facility] 02-15-2022 aPTT Coag (Bld) [Time] 28.3 s Normal 24.0-34.3 [facility] Comment on above: Performed By: #### P TISTR, PTT #### [facility] (DEFAULT) [address] [place] [address] 44264 aPTT Coag (PPP) [Time] 28.3 s [facility] XR Lumbar spine 3 Viewson IMPRESSION: Demineralization and marked osteoarthritis. Low Pressure Boiler Tender: PSCFrancesco Transcribe Date/Time: Aug 26 2020 9:06A Dictated by : HERNANDEZ ORR MD This examination was interpreted and the report reviewed and electronically signed by: HERNANDEZ ORR MD on Aug 26 2020 9:08AM [facility] DIVISION OF RADIOLOGY * * *Final Report* * * DATE OF EXAM: Aug 26 2020 9:03AM WOX 5228 - XR LUMBAR 3V AP/LAT/L5-S1 / PROCEDURE REASON: multiple diagnoses * * * * Physician Interpretation * * * * HISTORY: Chronic midline low back pain without sciatica Chronic midline low back pain without sciatica pt states pain for many years in low back, worse this year. Only complaint in pain in posterior right buttock but then will exercise and it will go away. no inj TECHNIQUE: AP lateral and spot views with the patient upright COMPARISON: None RESULT: Marked generalized bony demineralization. Marked degenerative narrowing and anterior and posterior spurring involving the L4-5 interspace. Vertebral bodies and alignment appear intact. There is scoliosis convex to the left at the thoracolumbar junction apparently due to marked degenerative change at that interspace. DIVISION OF RADIOLOGY Provider, [facility] - 08/26/2020 * * *Final Report* * * DATE OF EXAM: Aug 26 2020 9:03AM WOX 5228 - XR LUMBAR 3V AP/LAT/L5-S1 / PROCEDURE REASON: multiple diagnoses * * * * Physician Interpretation * * * * HISTORY: Chronic midline low back pain without sciatica Chronic midline low back pain without sciatica pt states pain for many years in low back, worse this year. Only complaint in pain in posterior right buttock but then will exercise and it will go away. no inj TECHNIQUE: AP lateral and spot views with the patient upright COMPARISON: None RESULT: Marked generalized bony demineralization. Marked degenerative narrowing and anterior and posterior spurring involving the L4-5 interspace. Vertebral bodies and alignment appear intact. There is scoliosis convex to the left at the thoracolumbar junction apparently due to marked degenerative change at that interspace. IMPRESSION IMPRESSION: Demineralization and marked osteoarthritis. Low Pressure Boiler Tender: LORA Transcribe Date/Time: Aug 26 2020 9:06A Dictated by : HERNANDEZ ORR MD This examination was interpreted and the report reviewed and electronically signed by: HERNANDEZ ORR MD on Aug 26 2020 9:08AM EST [facility] Radiology Study observation (narrative) [facility] XR Lumbar spine 3 ViewsOrder ed By: Ccreanna Provider on 08-26-2020 [facility] Vital Signs Date Time Vital Sign Value Performing Clinician Facility 02-24-2022 11:00-0400 Body height 152.4 cm Harris Mota MD Work Phone: [facility] 02-24-2022 11:00-0400 Body weight 52.48 kg Harris Mota MD Work Phone: [facility] 02-24-2022 11:00-0400 Diastolic blood pressure 68 mm[Hg] Harris Mota MD Work Phone: [facility] 02-24-2022 11:00-0400 Heart rate 69 /min Harris Mota MD Work Phone: [facility] 02-24-2022 11:00-0400 Systolic blood pressure 134 mm[Hg] Harris Mota MD Work Phone: [facility] 02-17-2022 11:20-0400 Body temperature 97.81 [degF] Sanju White MD Work Phone: [facility] 02-17-2022 11:20-0400 Diastolic blood pressure 64 mm[Hg] Sanju White MD Work Phone: [facility] 02-17-2022 11:20-0400 Heart rate 59 /min Sanju White MD Work Phone: [facility] 02-17-2022 11:20-0400 Respiratory rate 16 /min Sanju White MD Work Phone: [facility] 02-17-2022 11:20-0400 SaO2% (BldA) [Mass fraction] 96 % Sanju White MD Work Phone: [facility] 02-17-2022 11:20-0400 Systolic blood pressure 144 mm[Hg] Sanju White MD Work Phone: [facility] 02-17-2022 08:51-0400 Body height 154.9 cm Sanju White MD Work Phone: [facility] 02-17-2022 08:51-0400 Body mass index (BMI) [Ratio] 21.96 kg/m2 Sanju White MD Work Phone: [facility] 02-17-2022 08:51-0400 Body weight 52.7 kg Sanju White MD Work Phone: [facility] Encounters Encounter Date Encounter Type Care Provider Facility Start: 04-04-2023 ambulatory [facility]all [facility] Comment on above: Population Health Na vigation Outreach ([facility]) Start: 07-19-2022 Refill Harris hutchinson MD Work Phone: [facility] Comment on above: Refill Request Start: 05-10-2022 Telephone encounter Harris Mota MD Work Phone: [facility] Comment on above: Outside Lab Results ([facility]) Start: 05-08-2022 Telephone encounter Harris Mota MD Work Phone: [facility] Comment on above: Outside Lab Results ([facility]) Start: 04-07-2022 Telephone encounter Harris Mota MD Work Phone: [facility] Comment on above: Received Outside Med ical Records ([facility] 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 ) Start: 03-02-2022 Telephone encounter Harris Mota MD Work Phone: Family Practice Comment on above: Received Outside Med ical Records ([facility] rehab services) Start: 02-28-2022 Telephone encounter Harris Mota MD Work Phone: Family Practice Comment on above: Received Outside Med ical Records (from [facility] (speech therapy eval)) Start: 02-24-2022 End: 02-24-2022 Patient encounter procedure Harris Mota MD Work Phone: Family Practice Comment on above: Acute ischemic right MCA stroke (HCC) (Primary Dx); Paroxysmal atrial fibrillation (HCC) Start: 02-22-2022 Telephone encounter Harris Mota MD Work Phone: Family Practice Comment on above: Patient Update ([facility]) Start: 02-16-2022 Telephone encounter Harris Mota MD Work Phone: Family Practice Comment on above: Received Outside Med ical Records (ED summary, imaging, and labs from [facility]) Received Outside Med ical Records (EKG from [facility]) Start: 02-15-2022 End: 02-17-2022 Evaluation and management of inpatient VIRAJ [place] JODEE Facility:[facility] Start: 02-15-2022 End: 02-17-2022 Evaluation and management of inpatient Sanju White MD Work Phone: [id number] Comment on above: Stroke Start: 08-26-2020 End: 08-26-2020 Subsequent hospital visit by physician Xr [facility] Work Phone: Radiology Comment on above: Chronic midline low back pain without sciatica [M54.5, G89.29] Procedures Date Procedure Procedure Detail Performing Clinician Start: 02-17-2022 Echo tthrc r-t 2d w/wom-mode compl spec&colr d Ashley Jeff MD Work Phone: Start: 02-17-2022 Creatinine blood Ashley Jeff MD Work Phone: Start: 02-17-2022 Mri brain brain stem w/o contrast material Ashley Jeff MD Work Phone: Start: 02-16-2022 End: 02-16-2022 CONTINUOUS CARDIAC MONITORING STRIP Other Other Start: 02-16-2022 Hemoglobin glycosylated a1c Ashley Jeff MD Work Phone: Start: 02-16-2022 Hepatic function panel Ashley Jeff MD Work Phone: Start: 02-16-2022 Drug tst prsmv instr mnt chem analyzers pr date Benito Soto MD Work Phone: Start: 02-16-2022 EXTRA MICRO Benito urbano MD Work Phone: Start: 02-16-2022 Urnls dip stick/tabl et rgnt auto w/o microscopy Benito Soto MD Work Phone: Start: 02-15-2022 Ct head/brain w/o co ntrast material Benito Soto MD Work Phone: Start: 02-15-2022 C[address] perfusion a n[address]ys ct w/blood flow&volume Benito Soto MD Work Phone: Start: 02-15-2022 CBC AND ELECTRONIC DIFF Benito Soto MD Work Phone: Start: 02-15-2022 Complete blood count with white cell differential, automated Benito Soto MD Work Phone: Start: 02-15-2022 Hepatic function panel Benito Soto MD Work Phone: Start: 02-15-2022 LT BLUE TOP TUBE Sanju White MD Work Phone: Start: 02-15-2022 MINT GREEN TOP TUBE Scottie White MD Work Phone: Start: 02-15-2022 Thromboplastin time partial plasma/whole blood Benito Soto MD Work Phone: Start: 08-26-2020 Radex spine lumbosac ral 2/3 views Harris Mota MD Work Phone: Plan of Treatment Date Care Activity Detail Author Start: 02-17-2025 Diabetes Screening Diabetes Screenin g [facility] Start: 02-16-2025 DIABETES SCREEN DIABETES SCREEN [facility] Start: 08-08-2024 DIABETES SCREEN DIABETES SCREEN [facility] Start: 06-08-2024 Covid-19 Vaccine () Covid-19 Vaccine () [facility] Start: 06-08-2024 Influenza vaccination Influenza Vacc ine (#1) [facility] Start: 10-08-2023 Advance Directive Discussion Advance Directive Discussion [facility] Start: 10-08-2022 ADVANCE DIRECTIVE DISCUSSION ADVANCE DIRECTIVE DISCUSSION [facility] Start: 10-08-2022 DEPRESSION ASSESSMENT DEPRESSION ASS ESSMENT [facility] Start: 06-19-2022 End: 06-19-2022 Patient encounter procedure 06/19/2022 Office Visit Pharmacy Yolis Floyd MD [address] [place] [address] [facility] Start: 06-08-2022 Influenza vaccination INFLUENZA (#1) [facility] Start: 03-16-2022 End: 03-16-2022 Patient encounter procedure 03/16/2022 Office Visit Neurology Debbie Gale, DISTRICT ADMINISTRATOR-FRATERNITY ADVISER [address] [place] [address] Neurology [facility] Start: 02-12-2022 COVID-19 VACCINE (4 - Booster for Moderna series) COVID-19 VACCINE (4 - Booster for Moderna series) [facility] Start: 12-10-2021 COVID-19 VACCINE (4 - Booster for Moderna series) COVID-19 VACCINE (4 - Booster for Moderna series) [facility] Start: 10-08-2021 ADVANCE DIRECTIVE DISCUSSION ADVANCE DIRECTIVE DISCUSSION [facility] Start: 10-08-2021 DEPRESSION ASSESSMENT DEPRESSION ASS ESSMENT [facility] Start: 05-19-2021 COVID-19 VACCINE (3 - Booster for Moderna series) COVID-19 VACCINE (3 - Booster for Moderna series) [facility] Start: 2012 RSV Vaccine (1 - 1-d ose 75+ series) RSV Vaccine (1 - 1-dose 75+ series) [facility] Start: 07-13-2007 Tetanus vaccination TETANUS [facility] Start: 1982 Colonoscopy COLORECTAL CAN CER SCREENING DISCUSSION [facility] Start: 1977 Screening mammography MAMMOGRA M SCREENING DISCUSSION [facility] Start: 1958 Screening for malign ant neoplasm of cervix CERVICAL CANCER SCREENING DISCUSSION [facility] Start: 1956 Third diphtheria, tetanus and acellular pertussis (DTaP) vaccination TDAP (ADULT) [facility] Start: 1956 Urine microalbumin profile [facility] Start: 1955 Depression Screening Depression Scre ening [facility] Start: 1942 COVID-19 VACCINE (#1) COVID-19 VACCI NE (#1) [facility] Start: 1937 Screening for osteoporosis DEXA SCAN DISCUSSION [facility] GOLD TOP TUBE GOLD TOP TUBE La b Routine 02/15/2022 9:45 PM EDT [facility] LAVENDER TOP TUBE LAVENDER TOP T UBE Lab Routine 02/15/2022 9:45 PM EDT [facility] RAINBOW DRAW RAINBOW DRAW Lab Routine 02/15/2022 9:45 PM EDT [facility] End: 02-15-2022 Standard [facility] Comment on above: One Time for 1 Occur rences starting 02/15/2022 until 02/15/2022 End: 02-16-2022 Standard ECG ECG ECG Routine One Time for 1 Occurrences starting 02/16/2022 until 02/16/2022 [facility] Comment on above: One Time for 1 Occur rences starting 02/16/2022 until 02/16/2022 [facility] Immunizations Immunization Date Immunization Notes Care Provider Fa cility 06-30-2022 influenza virus vacc ine, unspecified formulation Xr Karley Work Phone: [facility] 08-17-2021 influenza, high-dose , quadrivalent vaccine (FLUZONE HIGH DOSE QUADRIVALENT) Harris Mota MD Work Phone: [facility] 08-23-2020 influenza, high-dose , quadrivalent vaccine (FLUZONE HIGH DOSE QUADRIVALENT) Harris Mota MD Work Phone: [facility] 08-25-2019 influenza, high dose seasonal, preservative-free Harris Mota MD Work Phone: [facility] 07-11-2019 zoster vaccine recombinant Harris Mota MD Work Phone: [facility] 07-10-2019 zoster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 the phone and texture every night and morning. They state that she was communicating with them without any evidence of confusion or abnormality/complaints early this morning. Later in the morning she began to complain of some confusion. Later in the afternoon around 1300 she was found driving around her neighborhood burning over mailboxes. She denies any fevers, headaches, dizziness, chest pain, dyspnea, vomiting, diarrhea, abdominal pain, GI bleeding, or urinary symptoms Outside hospital workup: -CT angiogram head neck demonstrated abrupt occlusion of the M1 segment of the right MCA, mild stenosis (20%) of right carotid, mild stenosis (40%) of left carotid, and patent vertebral arteries bilaterally -CT cervical spine negative for any acute traumatic injuries -CT brain without negative for any acute intracranial abnormalities REVIEW OF SYSTEMS Review of Systems Constitutional: Negative for chills, diaphoresis and fever. HENT: Negative for congestion, rhinorrhea and sore throat. Eyes: Negative for visual disturbance. Respiratory: Negative for cough, chest tightness and shortness of breath. Cardiovascular: Negative for chest pain, palpitations and leg swelling. Gastrointestinal: Negative for abdominal pain, anal bleeding, blood in stool, constipation, diarrhea, nausea and vomiting. Endocrine: Negative for polyuria. Genitourinary: Negative for difficulty urinating, dysuria, frequency, hematuria, vaginal bleeding and vaginal discharge. Musculoskeletal: Negative for neck stiffness. Skin: Negative for rash. Neurological: Negative for dizziness, light-headedness and headaches. Hematological: Does not bruise/bleed easily. Psychiatric/Behavioral: Positive for confusion. Negative for suicidal ideas. PAST MEDICAL HISTORY Past medical history was reviewed and is non-contributory to the presenting problem other than: No past medical history on file. SURGICAL HISTORY Past surgical history was reviewed and is non-contributory to the presenting problem other than: No past surgical history on file. CURRENT MEDICATIONS No current facility-administered medications for this encounter. No current outpatient medications on file. ALLERGIES Not on File FAMILY HISTORY Family history was reviewed and is non-contributory to the presenting problem other than: No family history on file. SOCIAL HISTORY Social history was reviewed and is non-contributory to the presenting problem other than: Social History Socioeconomic History Marital status: Not on file Spouse name: Not on file Number of children: Not on file Years of education: Not on file Highest education level: Not on file Occupational History Not on file Tobacco Use Smoking status: Not on file Smokeless tobacco: Not on file Substance and Sexual Activity Alcohol use: Not on file Drug use: Not on file Sexual activity: Not on file Other Topics Concern Not on file Social History Narrative Not on file Social Determinants of Health Financial Resource Strain: Not on file Food Insecurity: Not on file Transportation Needs: Not on file Physical Activity: Not on file Stress: Not on file Social Connections: Not on file Intimate Partner Violence: Not on file Housing Stability: Not on file PHYSICAL EXAM Ht 1.549 m (5' 1 ) Physical Exam Vitals and nursing note reviewed. Constitutional: General: She is not in acute distress. Appearance: Normal appearance. She is not ill-appearing, toxic-appearing or diaphoretic. HENT: Head: Normocephalic and atraumatic. Nose: Nose normal. Eyes: General: No scleral icterus. Right eye: No discharge. Left eye: No discharge. Conjunctiva/sclera: Conjunctivae normal. Cardiovascular: Rate and Rhythm: Normal rate and regular rhythm. Pulses: Normal pulses. Radial pulses are 2+ on the right side and 2+ on the left side. Dorsalis pedis pulses are 2+ on the right side and 2+ on the left side. Heart sounds: Normal heart sounds. No murmur heard. No friction rub. No gallop. Pulmonary: Effort: Pulmonary effort is normal. No respiratory distress. Breath sounds: Normal breath sounds. No stridor. No wheezing, rhonchi or rales. Abdominal: General: Abdomen is flat. Bowel sounds are normal. There is no distension. Palpations: Abdomen is soft. Tenderness: There is no abdominal tenderness. There is no right CVA tenderness, left CVA tenderness, guarding or rebound. Musculoskeletal: Right lower leg: No edema. Left lower leg: No edema. Skin: General: Skin is warm and dry. Capillary Refill: Capillary refill takes less than 2 seconds. Coloration: Skin is not jaundiced or pale. Findings: No bruising, erythema, lesion or rash. Neurological: Mental Status: She is alert and oriented to person, place, and time. Comments: -alert oriented times 4/4 -pupils 3, round, and reactive bilaterally -left lower facial droop that is faint; otherwise, cranial nerves 2-12 intact -no pronator drift -strength 5/5 in all extremities -no deficits to light touch throughout -insxmu-pfkv-rewyph and heel-jimenes normal bilaterally Psychiatric: Mood and Affect: Mood normal. Behavior: Behavior normal. Thought Content: Thought content normal. Judgment: Judgment normal. ED COURSE & MEDICAL DECISION MAKING Pertinent Labs & Imaging studies if performed reviewed. (See chart for details) Medication list reviewed. Assessment/Plan: Dea Merritt is a 86 y.o. female who presents as a transfer from an outside hospital with evidence of a right M1 CVA. Labs: Broad stroke laboratory workup Imaging: CT head without, CT perfusion Therapeutics: P.r.n. antihypertensives Consults: Neurology and neurosurgery Differential Diagnosis includes but is not limited to: Ischemic CVA, hemorrhagic conversion, metabolic encephalopathy, electrolyte abnormality ED Course and Medical Decision Making: This patient presents with evidence of a right M1 acute CVA with an unclear last known well. Neurology and Neurosurgery were emergently consulted. A CT head without and CT perfusion were ordered in order to evaluate for any evidence of penumbra. EKG demonstrated atrial fibrillation with left bundle-branch block morphology, normal axis, normal QTC, no ST segment changes concerning for ischemia per the Sgarbossa's Criteria, in no acute T-wave changes. High sensitivity troponin within normal limits. ACS unlikely. CBC, chemistry, PT/INR, PTT, and LFTs all within normal limits. Final disposition and plan pending further imaging workup. This patient is being signed out at the end of my shift to the oncoming resident Impression: Right M1 CVA Disposition: Pending further evaluation, anticipate admission No orders of the defined types were placed in this encounter. Medications - No data to display Note, part of this documentation was created with voice recognition software and errors may have occurred. Benito Soto MD Resident 02/15/22 2246 Pt A&Ox4 on arrival, states she feels fuzzy Remembers driving around in neighborhood because she couldn't find her house. Christopher DUNN at bedside, no stroke alert at this time due to LKW Last known normal was Sunday when family saw her. Pt had a fall at home on Sunday, no LOC. Pt was found driving around, running into mailboxes today, stated she could not find her house. She presented to [place] per EMS. NIH 1 for slurred speech at OSH. 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 Heparin gtt started for new onset afib Bed: E039 Expected date: Expected time: Means of arrival: Comments: Eileeneta 15 documented in this encounter [facility] 02-15-2022 Emergency department Note Pt states she first felt confused around 1300 today [address] home [facility] 02-15-2022 Physician Emergency department Note ED Attending Chief Complaint Patient presents with Altered mental status No past medical history on file. Dea Merritt is a 86 y.o. female. Who presents transfer from [place] for evaluation for large vessel occlusion. Patient on Sunday was well with no problems. This was her last known well. This on Sunday the patient reports that she had a fall with no loss of consciousness and did not hit her head. Later she was seen driving in his truck running into mailboxes. She was taken outside hospital and there was found to be alert and oriented and no longer confused. At the time her NIH was 1 for mild slurred speech. CT imaging demonstrated that she had and and 1 right-sided occlusion and she was transferred to [facility] for further evaluation. At this time patient has no significant complaints, she denies any significant weakness. She further reports that she does not feel confused at this time. Patient was found to be in Randy at OSH and started on Heparin. BP 161/77 Pulse 79 Ht 1.549 m (5' 1 ) SpO2 97% CTA bilat, irregular, abd soft NT, ext nml, neuro MS 5/5 UE and LE, left sided mild facial droop Differential diagnosis: CVA, TIA, ACS, LVO, electrolytes, Afib Impression: Weakness and confusion Plan: Neurovascular consultation, CT head, CBC, chemistry, coags, troponin, EKG, accucheck, urinalysis This patient's history, physical exam and any procedures were performed by the resident. On 02/15/2022 I saw and examined the patient. I discussed the history and examination with the resident and agree with the plan of care. In addition, I have fully participated in the care of this patient. I have reviewed all pertinent clinical information, including history, physical exam and medical decision making with the resident. I was present for the monsalve or critical portions of the documented procedures for the patient. . Sanju White MD 02/15/222137 [facility] Work Phone: 02-15-2022 Physician Emergency department Note DEPARTMENT OF EMERGENCY MEDICINE CHIEF COMPLAINT Altered mental status HPI Dea Merritt is a 86 y.o. female who presents as a transfer from an outside hospital with evidence of a right M1 CVA. She does not live with anyone at home and her family last saw her approximately 3 days ago; however, they speak to her on the phone and texture every night and morning. They state that she was communicating with them without any evidence of confusion or abnormality/complaints early this morning. Later in the morning she began to complain of some confusion. Later in the afternoon around 1300 she was found driving around her neighborhood burning over mailboxes. She denies any fevers, headaches, dizziness, chest pain, dyspnea, vomiting, diarrhea, abdominal pain, GI bleeding, or urinary symptoms Outside hospital workup: -CT angiogram head neck demonstrated abrupt occlusion of the M1 segment of the right MCA, mild stenosis (20%) of right carotid, mild stenosis (40%) of left carotid, and patent vertebral arteries bilaterally -CT cervical spine negative for any acute traumatic injuries -CT brain without negative for any acute intracranial abnormalities REVIEW OF SYSTEMS Review of Systems Constitutional: Negative for chills, diaphoresis and fever. HENT: Negative for congestion, rhinorrhea and sore throat. Eyes: Negative for visual disturbance. Respiratory: Negative for cough, chest tightness and shortness of breath. Cardiovascular: Negative for chest pain, palpitations and leg swelling. Gastrointestinal: Negative for abdominal pain, anal bleeding, blood in stool, constipation, diarrhea, nausea and vomiting. Endocrine: Negative for polyuria. Genitourinary: Negative for difficulty urinating, dysuria, frequency, hematuria, vaginal bleeding and vaginal discharge. Musculoskeletal: Negative for neck stiffness. Skin: Negative for rash. Neurological: Negative for dizziness, light-headedness and headaches. Hematological: Does not bruise/bleed easily. Psychiatric/Behavioral: Positive for confusion. Negative for suicidal ideas. PAST MEDICAL HISTORY Past medical history was reviewed and is non-contributory to the presenting problem other than: No past medical history on file. SURGICAL HISTORY Past surgical history was reviewed and is non-contributory to the presenting problem other than: No past surgical history on file. CURRENT MEDICATIONS No current facility-administered medications for this encounter. No current outpatient medications on file. ALLERGIES Not on File FAMILY HISTORY Family history was reviewed and is non-contributory to the presenting problem other than: No family history on file. SOCIAL HISTORY Social history was reviewed and is non-contributory to the presenting problem other than: Social History Socioeconomic History Marital status: Not on file Spouse name: Not on file Number of children: Not on file Years of education: Not on file Highest education level: Not on file Occupational History Not on file Tobacco Use Smoking status: Not on file Smokeless tobacco: Not on file Substance and Sexual Activity Alcohol use: Not on file Drug use: Not on file Sexual activity: Not on file Other Topics Concern Not on file Social History Narrative Not on file Social Determinants of Health Financial Resource Strain: Not on file Food Insecurity: Not on file Transportation Needs: Not on file Physical Activity: Not on file Stress: Not on file Social Connections: Not on file Intimate Partner Violence: Not on file Housing Stability: Not on file PHYSICAL EXAM Ht 1.549 m (5' 1 ) Physical Exam Vitals and nursing note reviewed. Constitutional: General: She is not in acute distress. Appearance: Normal appearance. She is not ill-appearing, toxic-appearing or diaphoretic. HENT: Head: Normocephalic and atraumatic. Nose: Nose normal. Eyes: General: No scleral icterus. Right eye: No discharge. Left eye: No discharge. Conjunctiva/sclera: Conjunctivae normal. Cardiovascular: Rate and Rhythm: Normal rate and regular rhythm. Pulses: Normal pulses. Radial pulses are 2+ on the right side and 2+ on the left side. Dorsalis pedis pulses are 2+ on the right side and 2+ on the left side. Heart sounds: Normal heart sounds. No murmur heard. No friction rub. No gallop. Pulmonary: Effort: Pulmonary effort is normal. No respiratory distress. Breath sounds: Normal breath sounds. No stridor. No wheezing, rhonchi or rales. Abdominal: General: Abdomen is flat. Bowel sounds are normal. There is no distension. Palpations: Abdomen is soft. Tenderness: There is no abdominal tenderness. There is no right CVA tenderness, left CVA tenderness, guarding or rebound. Musculoskeletal: Right lower leg: No edema. Left lower leg: No edema. Skin: General: Skin is warm and dry. Capillary Refill: Capillary refill takes less than 2 seconds. Coloration: Skin is not jaundiced or pale. Findings: No bruising, erythema, lesion or rash. Neurological: Mental Status: She is alert and oriented to person, place, and time. Comments: -alert oriented times 4/4 -pupils 3, round, and reactive bilaterally -left lower facial droop that is faint; otherwise, cranial nerves 2-12 intact -no pronator drift -strength 5/5 in all extremities -no deficits to light touch throughout -ahpxmo-klss-cdlnaq and heel-jimenes normal bilaterally Psychiatric: Mood and Affect: Mood normal. Behavior: Behavior normal. Thought Content: Thought content normal. Judgment: Judgment normal. ED COURSE & MEDICAL DECISION MAKING Pertinent Labs & Imaging studies if performed reviewed. (See chart for details) Medication list reviewed. Assessment/Plan: Dea Merritt is a 86 y.o. female who presents as a transfer from an outside hospital with evidence of a right M1 CVA. Labs: Broad stroke laboratory workup Imaging: CT head without, CT perfusion Therapeutics: P.r.n. antihypertensives Consults: Neurology and neurosurgery Differential Diagnosis includes but is not limited to: Ischemic CVA, hemorrhagic conversion, metabolic encephalopathy, electrolyte abnormality ED Course and Medical Decision Making: This patient presents with evidence of a right M1 acute CVA with an unclear last known well. Neurology and Neurosurgery were emergently consulted. A CT head without and CT perfusion were ordered in order to evaluate for any evidence of penumbra. EKG demonstrated atrial fibrillation with left bundle-branch block morphology, normal axis, normal QTC, no ST segment changes concerning for ischemia per the Sgarbossa's Criteria, in no acute T-wave changes. High sensitivity troponin within normal limits. ACS unlikely. CBC, chemistry, PT/INR, PTT, and LFTs all within normal limits. Final disposition and plan pending further imaging workup. This patient is being signed out at the end of my shift to the oncoming resident Impression: Right M1 CVA Disposition: Pending further evaluation, anticipate admission No orders of the defined types were placed in this encounter. Medications - No data to display Note, part of this documentation was created with voice recognition software and errors may have occurred. Benito Soto MD Resident 02/15/22 [id number] [facility] 02-15-2022 Emergency department Note Pt A&Ox4 on arrival, states she feels fuzzy Remembers driving around in neighborhood because she couldn't find her house. [facility] 02-15-2022 Emergency department Note Christopher DUNN at bedside, no stroke alert at this time due to LKW [facility] 02-15-2022 Emergency department Note Last known normal was Sunday when family saw her. Pt had a fall at home on Sunday, no LOC. Pt was found driving around, running into mailboxes today, stated she could not find her house. She presented to [place] per EMS. [facility] for slurred speech at OSH. 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 Heparin gtt started for new onset afib [facility] 02-15-2022 Emergency department Note Bed: E039 Expected date: Expected time: Means of arrival: Comments: Earl 15 [facility] 08-30-2020 History of Past i llness Narrative Problem Noted Date Resolved Date Chronic midline low back pain without sciatica 1 10/30/2019 10/20/2020 Hypertension goal BP (blood pressure) < 150/90 0 11/24/2015 08/05/2018 Inflamed seborrheic keratosis 04/20/2009 Unspecified hypertrophic and atrophic condition of skin 04/20/2009 02/25/2015 SOLAR LENTIGENES///DYSCHROMIA OTHER 04/20/2009 02/25/2015 documented as of this encounter (statuses as of 02/16/2022) [facility]11-[facility]2020 History of Past illness Narrative* Problem Noted Date Resolved Date Chronic midline low back pain without sciatica 1 10/30/2019 10/20/2020 Hypertension goal BP (blood pressure) < 150/90 0 11/24/2015 08/05/2018 Inflamed seborrheic keratosis 04/20/2009 Unspecified hypertrophic and atrophic condition of skin 04/20/2009 02/25/2015 SOLAR LENTIGENES///DYSCHROMIA OTHER 04/20/2009 02/25/2015 documented as of this encounter (statuses as of 02/22/2022) [facility] History of Past illness Narrative* Problem Noted Date Resolved Date Chronic midline low back pain without sciatica 1 10/30/2019 10/20/2020 Hypertension goal BP (blood pressure) < 150/90 0 11/24/2015 08/05/2018 Inflamed seborrheic keratosis 04/20/2009 Unspecified hypertrophic and atrophic condition of skin 04/20/2009 02/25/2015 SOLAR LENTIGENES///DYSCHROMIA OTHER 04/20/2009 02/25/2015 documented as of this encounter (statuses as of 02/27/2022) [facility] History of Past illness Narrative* Problem Noted Date Resolved Date Chronic midline low back pain without sciatica 1 10/30/2019 10/20/2020 Hypertension goal BP (blood pressure) < 150/90 0 11/24/2015 08/05/2018 Inflamed seborrheic keratosis 04/20/2009 Unspecified hypertrophic and atrophic condition of skin 04/20/2009 02/25/2015 SOLAR LENTIGENES///DYSCHROMIA OTHER 04/20/2009 02/25/2015 documented as of this encounter (statuses as of 02/28/2022) [facility] History of Past illness Narrative* Problem Noted Date Resolved Date Chronic midline low back pain without sciatica 1 10/30/2019 10/20/2020 Hypertension goal BP (blood pressure) < 150/90 0 11/24/2015 08/05/2018 Inflamed seborrheic keratosis 04/20/2009 Unspecified hypertrophic and atrophic condition of skin 04/20/2009 02/25/2015 SOLAR LENTIGENES///DYSCHROMIA OTHER 04/20/2009 02/25/2015 documented as of this encounter (statuses as of 03/02/2022) [facility] History of Past illness Narrative* Problem Noted Date Resolved Date Chronic midline low back pain without sciatica 1 10/30/2019 10/20/2020 Hypertension goal BP (blood pressure) < 150/90 0 11/24/2015 08/05/2018 Inflamed seborrheic keratosis 04/20/2009 Unspecified hypertrophic and atrophic condition of skin 04/20/2009 02/25/2015 SOLAR LENTIGENES///DYSCHROMIA OTHER 04/20/2009 02/25/2015 documented as of this encounter (statuses as of 03/07/2022) [facility] History of Past illness Narrative* Problem Noted Date Resolved Date Chronic midline low back pain without sciatica 1 10/30/2019 10/20/2020 Hypertension goal BP (blood pressure) < 150/90 0 11/24/2015 08/05/2018 Inflamed seborrheic keratosis 04/20/2009 Unspecified hypertrophic and atrophic condition of skin 04/20/2009 02/25/2015 SOLAR LENTIGENES///DYSCHROMIA OTHER 04/20/2009 02/25/2015 documented as of this encounter (statuses as of 03/20/2022) [facility] History of Past illness Narrative* Problem Noted Date Resolved Date Chronic midline low back pain without sciatica 1 10/30/2019 10/20/2020 Hypertension goal BP (blood pressure) < 150/90 0 11/24/2015 08/05/2018 Inflamed seborrheic keratosis 04/20/2009 Unspecified hypertrophic and atrophic condition of skin 04/20/2009 02/25/2015 SOLAR LENTIGENES///DYSCHROMIA OTHER 04/20/2009 02/25/2015 documented as of this encounter (statuses as of 04/07/2022) [facility] History of Past illness Narrative* Problem Noted Date Resolved Date Chronic midline low back pain without sciatica 1 10/30/2019 10/20/2020 Hypertension goal BP (blood pressure) < 150/90 0 11/24/2015 08/05/2018 Inflamed seborrheic keratosis 04/20/2009 Unspecified hypertrophic and atrophic condition of skin 04/20/2009 02/25/2015 SOLAR LENTIGENES///DYSCHROMIA OTHER 04/20/2009 02/25/2015 documented as of this encounter (statuses as of 05/08/2022) [address] History of Past illness Narrative* Problem Noted Date Resolved Date Chronic midline low back pain without sciatica 1 10/30/2019 10/20/2020 Hypertension goal BP (blood pressure) < 150/90 0 11/24/2015 08/05/2018 Inflamed seborrheic keratosis 04/20/2009 Unspecified hypertrophic and atrophic condition of skin 04/20/2009 02/25/2015 SOLAR LENTIGENES///DYSCHROMIA OTHER 04/20/2009 02/25/2015 documented as of this encounter (statuses as of 05/10/2022) [place] [address]-23-2020 History of Past illness Narrative* Problem Noted Date Resolved Date Chronic midline low back pain without sciatica 1 10/30/2019 10/20/2020 Hypertension goal BP (blood pressure) < 150/90 0 11/24/2015 08/05/2018 Inflamed seborrheic keratosis 04/20/2009 Unspecified hypertrophic and atrophic condition of skin 04/20/2009 02/25/2015 SOLAR LENTIGENES///DYSCHROMIA OTHER 04/20/2009 02/25/2015 documented as of this encounter (statuses as of 07/19/2022) [address]2020 History of Past illness Narrative* Problem Noted Date Resolved Date Chronic midline low back pain without sciatica 1 10/30/2019 10/20/2020 Hypertension goal BP (blood pressure) < 150/90 0 11/24/2015 08/05/2018 Inflamed seborrheic keratosis 04/20/2009 Unspecified hypertrophic and atrophic condition of skin 04/20/2009 02/25/2015 SOLAR LENTIGENES///DYSCHROMIA OTHER 04/20/2009 02/25/2015 documented as of this encounter (statuses as of 04/05/2023) [facility]2020 History of Present illness Narrative* Clara GudinoRt)Evelyn - 08/26/2020 8:50 AM EST Radiology Service Progress Note PATIENT NAME: Dea Merritt DATE OF SERVICE: August 26, 2020 TIME: 9:03 AM PATIENT IDENTITY VERIFICATION COMPLETED USING TWO (2) IDENTIFIERS: Name and Date of confirmedby patient verbally. FALL SCREENING: Has the patient had 2 falls in the last year or 1 fall with injury or currently using an Ambulatory Assistive Device (Walker, Cane, Wheelchair, Crutches, etc.)? No PATIENT GENDER DATA: Female. status: : No status: NO. PATIENT RELEVANT IMPLANT DATA REVIEWED: Not Applicable RADIOLOGY DEPARTMENT: General X-ray: Exam(s) Completed: Spine X-Ray(s): Lumbar AP / LAT / L5-S1 PERIPHERAL IV DATA: Not applicable SIGNED BY: RT Darin August 26, 2020 9:03 AM [facility] Diagnosis Cerebrovascular accident (CVA) due to embolism of right middle cerebral artery- Primary Persistent atrial fibrillation Atrial fibrillation Other hyperlipidemia Cerebrovascular accident (CVA), unspecified mechanism [facility] Acute ischemic right MCA stroke (HCC)- Primary Unspecified cerebral artery occlusion with cerebral infarction Paroxysmal atrial fibrillation (HCC) Atrial fibrillation documented in this [facility]* Diagnosis Systolic hypertension, isolated Unspecified essential hypertension Essential hypertension Unspecified essential hypertension documented in [facility]* Diagnosis Chronic midline low back pain without sciatica documented in this encounter [facility] [place] for referral (narrative)* Consultation (Routine) - New Request Specialty Diagnoses / Procedures Referred By Contact Referred To Contact Cardiovascular Medicine Diagnoses Other hyperlipidemia Tani Meyer, DISTRICT ADMINISTRATOR-FRATERNITY ADVISER [address] [place] [address] Referral ID Status Reason Start Date Expiration Date V isits Requested Visits Authorized [id number] New Request 02/17/2022 03/14/2023 1 1 Scheduling Instructions Offered at all [facility] cardiovascular medicine locations. Contact or to schedule. * Adjunctive Therapy (Routine) - New Request Specialty Diagnoses / Procedures Referred By Eligio mauricio Referred To Contact Speech Therapy Diagnoses Cerebrovascular accident (CVA) due to embolism of right middle cerebral artery Tani Meyer APRN-CNP [address] [place] [address] Referral ID Status Reason Start Date Expiration Date V isits Requested Visits Authorized [id number] New Request 02/17/2022 03/14/2023 1 1 Scheduling Instructions [facility] [address] [facility] 2nd [address] [place], [place] [phone] Fax Outpatient [facility] [place] [address] [facility], [address] [place], [place] [phone] FAX [facility] [address] [place], [place] [phone] FAX [facility] [place] [address] [place] [address] FAX [facility] [address] [place], [place] [phone] FAX * Adjunctive Therapy (Routine) - New Request Specialty Diagnoses / Procedures Referred By Eligio mauricio Referred To Contact Physical Therapy Diagnoses Cerebrovascular accident (CVA) due to embolism of right middle cerebral artery Tani Meyer APRN-CNP [address] [place] [address] Referral ID Status Reason Start Date Expiration Date V isits Requested Visits Authorized [id number] New Request 02/17/2022 03/14/2023 1 1 Scheduling Instructions [facility] [address] [facility] 2[address] [place] [address] Fax [facility] (Neck and Back Therapy) [address], [place] [address] FAX [facility] at [address] [address] FAX [facility]patient [facility] [place] [address] [place] [address] FAX [facility] [address] [place] [address] FAX Physical Therapy at [facility] [address], [place] [address] FAX [facility] [address] [place], [place] [address] FAX [facility] [address] [place], [place] [address] FAX * Transfer of Care (Routine) - New Request Specialty Diagnoses / Procedures Referred By Eligio mauricio Referred To Contact Occupational Therapy Diagnoses Cerebrovascular accident (CVA) due to embolism of right middle cerebral artery Tani Meyer APRN-FRATERNITY ADVISER [address] [place] [address] Referral ID Status Reason Start Date Expiration Date V isits Requested Visits Authorized [id number] New Request 02/17/2022 03/14/2023 1 1 Scheduling Instructions [facility] [address] [facility] 2[address] [place] [address] Fax [facility]patient [facility] [place] [address] [place], [place] [phone] FAX [facility] [address], [place] [phone] FAX [facility] [address] [address] FAX [facility]Upper [facility]rem[facility] Therapy) [address], [address] [facility] [phone] FAX [facility] [address] [place], [place] [phone] FAX * Consultation (Routine) - New Request Specialty Diagnoses / Procedures Referred By Contac t Referred To Contact Neurology Diagnoses Cerebrovascular accident (CVA) due to embolism of right middle cerebral artery Tani Meyer, DISTRICT ADMINISTRATOR-FRATERNITY ADVISER [address] [place] [address] Referral ID Status Reason Start Date Expiration Date V isits Requested Visits Authorized [id number] New Request 02/17/2022 03/14/2023 1 1 * Radiology (Routine) - Pending Review Specialty Diagnoses / Procedures Referred By Contradha t Referred To Contact Procedures ECG Viraj Ellsworth MD [address] [place] [address]. [place] [address] Referral ID Status Reason Start Date Expiration Date V isits Requested Visits Authorized [id number] Pending Review 02/16/2022 03/13/2023 1 1 * (Routine) - Pending Review Specialty Diagnoses / Procedures Referred By Contac t Referred To Contact Procedures PLATELET MONITORING PER PROTOCOL Viraj Ellsworth MD [address] [place] [address]. [place] [address] Referral ID Status Reason Start Date Expiration Date V isits Requested Visits Authorized [id number] Pending Review 02/16/2022 03/13/2023 1 1 * (Routine) - Pending Review Specialty Diagnoses / Procedures Referred By Contac t Referred To Contact Procedures DVT/VTE RISK ASSESSMENT Viraj Ellsworth MD [address] [place] [address]. 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 Advance Directive(s) 04/13/2016 7:22 AM Advance Directive(s) 03/22/2016 4:37 PM Advance Directive(s) 09/11/2013 7:54 AM Latest Code Status on File Code Status Date Activated Date Inactivated Comments Full Code 02/16/2022 1:54 AM Documents on File Type Date Recorded 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 Advance Directive(s) 09/11/2013 7:54 AM Summary Purpose Family History No Family History Records FoundNo Family History Records Found Additional Source Comments Source Comments (unrecognize d section and content) In the event this informatio n is protected by the Federal Confidentiality of Alcohol and Drug Abuse Patient Records regulations: The Federal rules restrict any use of the information to criminally investigate or prosecute any alcohol or drug abuse patient.[facility] the event this information is protected by the Federal Confidentiality of Alcohol and Drug Abuse Patient Records regulations: The Federal rules restrict any use of the information to criminally investigate or prosecute any alcohol or drug abuse patient.[facility] the event this information is protected by the Federal Confidentiality of Alcohol and Drug Abuse Patient Records regulations: The Federal rules restrict any use of the information to criminally investigate or prosecute any alcohol or drug abuse patient.[facility] the event this information is protected by the Federal Confidentiality of Alcohol and Drug Abuse Patient Records regulations: The Federal rules restrict any use of the information to criminally investigate or prosecute any alcohol or drug abuse patient.[facility] the event this information is protected by the Federal Confidentiality of Alcohol and Drug Abuse Patient Records regulations: The Federal rules restrict any use of the information to criminally investigate or prosecute any alcohol or drug abuse patient.[facility] the event this information is protected by the Federal Confidentiality of Alcohol and Drug Abuse Patient Records regulations: The Federal rules restrict any use of the information to criminally investigate or prosecute any alcohol or drug abuse patient.[facility] the event this information is protected by the Federal Confidentiality of Alcohol and Drug Abuse Patient Records regulations: The Federal rules restrict any use of the information to criminally investigate or prosecute any alcohol or drug abuse patient.[facility] the event this information is protected by the Federal Confidentiality of Alcohol and Drug Abuse Patient Records regulations: The Federal rules restrict any use of the information to criminally investigate or prosecute any alcohol or drug abuse patient.[facility] the event this information is protected by the Federal Confidentiality of Alcohol and Drug Abuse Patient Records regulations: The Federal rules restrict any use of the information to criminally investigate or prosecute any alcohol or drug abuse patient.[facility] the event this information is protected by the Federal Confidentiality of Alcohol and Drug Abuse Patient Records regulations: The Federal rules restrict any use of the information to criminally investigate or prosecute any alcohol or drug abuse patient.[facility] the event this information is protected by the Federal Confidentiality of Alcohol and Drug Abuse Patient Records regulations: The Federal rules restrict any use of the information to criminally investigate or prosecute any alcohol or drug abuse patient.[facility] Hospital[facility] the event this information is protected by the Federal Confidentiality of Alcohol and Drug Abuse Patient Records regulations: The Federal rules restrict any use of the information to criminally investigate or prosecute any alcohol or drug abuse patient.[facility] Hospital[facility] the event this information is protected by the Federal Confidentiality of Alcohol and Drug Abuse Patient Records regulations: The Federal rules restrict any use of the information to criminally investigate or prosecute any alcohol or drug abuse patient.[facility] Hospital[facility] the event this information is protected by the Federal Confidentiality of Alcohol and Drug Abuse Patient Records regulations: The Federal rules restrict any use of the information to criminally investigate or prosecute any alcohol or drug abuse patient.[facility] Reason for Visit (unrecogniz ed section and content) Reason Comments Received Outside Medical Records ED summ drea, imaging, and labs from [facility] Reason Comments Received Outside Medical Records EKG fro m [facility] Reason Comments Altered mental status Specialty Diagnoses / Procedures Referred By Contac t Referred To Contact Diagnoses confusion Referral ID Status Reason Start Date Expiration Date Visits Re quested Visits Authorized [id number] 1 1 Reason Comments Patient Update [facility] Reason Comments Transition Of Care Reason Comments Received Outside Medical Records from [facility] (speech therapy eval) Reason Comments Received Outside Medical Records [facility] mehran ab services Reason Comments Orders reviewed and signed by PCP and faxed back to [facility] occupational therapy. 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 Reason Comments Outside Lab Results [facility] Reason Comments Refill Request Reason Onset Date Comments Population Health Navigation Outreach 04/04/2023 [facility] Care Teams (unrecognized sec tion and content) Breast Splitter Relationship Specialty Start Date End Date Harris Mota MD [address] [place], [place] [address] PCP - General Family Practice 10/12/10 Breast Splitter Relationship Specialty Start Date End Date Vamsi Mota MD [address] [place] [address] [place], [place] [id number] PCP - General Family Medicine 02/17/22 Breast Splitter Relationship Specialty Start Date End Date Harris Mota MD [address] [place] [address] [id number] PCP - General Family Practice 10/12/10 Breast Splitter Relationship Specialty Start Date End Date Harris Mota MD [address] [place] [address] [id number] PCP - General Family Practice 10/12/10 Breast Splitter Relationship Specialty Start Date End Date Harris Mota MD [address] [place] [address] [id number] PCP - General Family Practice 10/12/10 Breast Splitter Relationship Specialty Start Date End Date Harris Mota MD [address] [place] [address] [id number] PCP - General Family Medicine 10/12/10 Breast Splitter Relationship Specialty Start Date End Date Harris Mota MD [address] [place] [address], [place] [address] PCP - General Family Medicine 10/12/10 Breast Splitter Relationship Specialty Start Date End Date Harris Mota MD [address] [place] [address] PCP - General Family Medicine 10/12/10 Scheduled Active and Recently Administ ered Medications (unrecognized section and content) Medication Order 02/15/2022 02/16/2022 02/17/2022 amLODIPine (NORVASC) tablet 5 mg 5 mg, Oral, DAILY, First dose on Sun02/17/22 at 1000, Until Discontinued 0952 (Given - Provider: Alanna Sol, ANIKET) aspirin chewable tablet 81 mg(Linked Group 1) 81 mg, Oral, DAILY, First dose on Robyn 02/16/22 at 0900, Until Discontinued, May begin use of chewable aspirin when patient passes swallow test., Recovery to Continue 0835 (Given - Provider: Marta Max RN) 0831 (Given - Provider: Alanna Sol, ANIKET) aspirin suppository 300 mg(Linked Group 1) 300 mg, Rectal, DAILY, First dose on Robyn 02/16/22 at 0900, Until Discontinued, Use suppository until patient passes swallow test., Recovery to Continue 0835 (See Alternative - Provider: Marta Max RN) 0831 (See Alternative - Provider: Alanna Sol, ANIKET) Enoxaparin Sodium (LOVENOX) injection 40 mg 40 mg, Subcutaneous, EVERY 24 HOURS, First dose on Robyn 02/16/22 at 0900, Until Discontinued, , Indications: DVT/PE prophylaxis, Recovery to Continue 0835 (Given - Provider: Marta Max, ANIKET) 0832 (Given - Provider: Alanna Sol, ANIKET) faMOTIdine (PEPCID) tablet 20 mg 20 mg, Oral, DAILY AT BEDTIME, First dose on Robyn 02/16/22 at 2100, Until Discontinued 2130 (Given - Provider: Tiffanie Huertas RN) iohexol (OMNIPAQUE) 350 MG/ML injection 1-171 mL (COMPLETED) 1-171 mL, Intravenous, ONCE, 1 dose, On Sun02/15/22 at 2245, Extravasation Risk, CT Procedure 2237 (Given - Radiology - Provider: Colleen Daniels) magnesium oxide (MAG-OX) tablet 800 mg (COMPLETED) 800 mg, Oral, ONCE, 1 dose, On Sun02/16/22 at 0800 0835 (Given - Provider: Marta Max, ANIKET) metoprolol (LOPRESSOR) tablet 25 mg 25 mg, Oral, 2 TIMES DAILY, First dose on Sun02/17/22 at 0930, Until Discontinued, 0952 (Given - Provider: Alanna Sol, ANIKET) Polyvinyl Alcohol-Povidone PF (REFRESH) ophthalmic solution 1 drop 1 drop, Both Eyes, 3 TIMES DAILY, First dose on Sun02/16/22 at 1400, Until Discontinued, Patient may self-administer. 1647 (Given - Provider: Marta Max RN)2130 (Given - Provider: Tiffanie Huertas RN) 0832 (Given - Provider: Alanna Sol, ANIKET)1400 (Canceled Entry - Provider: System Discharge - Comment: Automatically canceled at discontinue of medication order) potassium chloride (K-DUR) tablet ER 40 mEq (COMPLETED) 40 mEq, Oral, ONCE, 1 dose, On Sun02/16/22 at 0800, Swallow tablets whole; do not crush, chew, or suck on tablet. Tablet may also be broken in half and each half swallowed separately. 0835 (Given - Provider: Marta Max RN) senna (SENOKOT) tablet 8.6 mg(Linked Group 2) 8.6 mg, Oral, DAILY EVERY MORNING, First dose on Sun02/16/22 at 0900, Until Discontinued, Hold if BM in last 2 hours., Recovery to Continue 0819 (Not Given - Provider: Marta Max RN - Reason: Patient with symptoms) 0831 (Not Given - Provider: Alanna Sol RN - Reason: Patient/family refused) senna (SENOKOT) tablet 8.6 mg(Linked Group 2) 8.6 mg, Per NG tube, DAILY EVERY MORNING, First dose on Sun02/16/22 at 0900, Until Discontinued, Hold if BM in last 2 hours., Recovery to Continue 0819 (See Alternative - Provider: Marta Max RN) 0831 (See Alternative - Provider: Alanna Sol RN) Continuous Medication Order 02/15/2022 02/16/2022 02/17/2022 sodium chloride 0.9% IV solution (CANCELED) Intravenous, at 75 mL/hr, CONTINUOUS, Starting on Sun02/15/22 at 2215, Until Robyn 02/16/22 at 0224 2236 ($$New Bag$$ - Provider: Christian Short RN) 0121 (Rate/Dose Verify - Provider: Kandis Kiran RN)0150 (Paused - Provider: Marta Max RN)0153 (Restarted - Provider: Marta Max RN)022 (Stopped - Provider: Marta Max RN)0730 (Stopped - Provider: Marta Max RN - Comment: off at the oncoming of my shift) PRN Medication Order 02/15/2022 02/16/2022 02/17/2022 acetaminophen (TYLENOL) tablet 325 mg(Linked Group 3) 325 mg, Oral, EVERY 4 HOURS NEEDED, Starting on Robyn 02/16/22 at 0154, Until Sun02/17/22 at 1602, Mild Pain, Moderate Pain, Maximum dose of acetaminophen is 4000 mg from all sources in 24 hours., Recovery to Continue acetaminophen (TYLENOL) tablet 325 mg(Linked Group 3) 325 mg, Per NG tube, EVERY 4 HOURS NEEDED, Starting on Robyn 02/16/22 at 0154, Until Sun02/17/22 at 1602, Mild Pain, Moderate Pain, Maximum dose of acetaminophen is 4000 mg from all sources in 24 hours., Recovery to Continue acetaminophen (TYLENOL) tablet 650 mg(Linked Group 3) 650 mg, Oral, EVERY 4 HOURS NEEDED, Starting on Robyn 02/16/22 at 0154, Until Sun02/17/22 at 1602, Severe Pain, Oral temp > 99.5, Maximum dose of acetaminophen is 4000 mg from all sources in 24 hours., Recovery to Continue acetaminophen (TYLENOL) tablet 650 mg(Linked Group 3) 650 mg, Per NG tube, EVERY 4 HOURS NEEDED, Starting on Robyn 02/16/22 at 0154, Until Sun02/17/22 at 1602, Severe Pain, Oral temp > 99.5, Maximum dose of acetaminophen is 4000 mg from all sources in 24 hours., Recovery to Continue hydrALAZINE (APRESOLINE) injection 10 mg 10 mg, Intravenous, EVERY 10 MINUTES NEEDED, 3 doses, Starting on Sun02/15/22 at 2203, Until Sun02/17/22 at 1602, Administer for systolic blood pressure greater than 220 OR diastolic blood pressure greater than 110. HOLD if heart rate greater than 60. hydrALAZINE (APRESOLINE) injection 10 mg(Linked Group 4) 10 mg, Intravenous, EVERY 1 HOUR NEEDED, Starting on Robyn 02/16/22 at 0154, Until Sun02/17/22 at 1602, Systolic Blood Pressure greater than 220 mmHg and heart rate LESS THAN 60 beats per minute., Use as initial dose. Higher dose may be administered if lower dose was previously documented as ineffective 10 minutes after administration and did not result in adverse effects (HR>90), Recovery to Continue hydrALAZINE (APRESOLINE) injection 20 mg(Linked Group 4) 20 mg, Intravenous, EVERY 1 HOUR NEEDED, Starting on Sun02/16/22 at 0154, Until Sun02/17/22 at 1602, Systolic Blood Pressure greater than 220 mmHg and heart rate LESS THAN 60 beats per minute., Higher dose may be administered if lower dose was previously documented as ineffective 10 minutes after administration and did not result in adverse effects (HR>90). Decrease back to lower dose if patient has adverse effects, or no PRN used in previous 3 hours, Recovery to Continue labetalol (NORMODYNE) injection 10 mg(Linked Group 5) 10 mg, Intravenous, EVERY 1 HOUR NEEDED, Starting on Robyn 02/16/22 at 0154, Until Sun02/17/22 at 1602, Systolic Blood Pressure greater than 220 mmHg and heart rate GREATER THAN 60 beats per minute., Use as initial dose. Higher dose may be administered if lower dose was previously documented as ineffective 10 minutes after administration and did not result in adverse effects (HR<60) For vials: labetalol should be treated as a SINGLE USE VIAL. Discard remaining contents after one use., Recovery to Continue labetalol (NORMODYNE) injection 20 mg 20 mg, Intravenous, EVERY 10 MINUTES NEEDED, 3 doses, Starting on Sun02/15/22 at 2203, Until Sun02/17/22 at 1602, Administer for systolic blood pressure greater than 220 OR diastolic blood pressure greater than 110. HOLD if heart rate less than 60., Administration duration: up to 20 mg over 2 minutes. Telemetry required except for BLOOD AND PLASMA LABORATORY ASSISTANT patients on [address] and [address]. For vials: labetalol should be treated as a SINGLE USE VIAL. Discard remaining contents after one use. labetalol (NORMODYNE) injection 20 mg(Linked Group 5) 20 mg, Intravenous, EVERY 1 HOUR NEEDED, Starting on Sun02/16/22 at 0154, Until Sun02/17/22 at 1602, Systolic Blood Pressure greater than 220 mmHg and heart rate GREATER THAN 60 beats per minute., Higher dose may be administered if lower dose was previously documented as ineffective 10 minutes after administration and did not result in adverse effects (HR<60). Decrease back to lower dose if patient has adverse effects, or no PRN used in previous 3 hours For vials: labetalol should be treated as a SINGLE USE VIAL. Discard remaining contents after one use., Recovery to Continue polyethylene glycol (MIRALAX) packet 17 g(Linked Group 6) 17 g, Oral, DAILY NEEDED, Starting on Sun02/16/22 at 0154, Until Sun02/17/22 at 1602, Constipation If No Bowel Movement in 48 Hours, Recovery to Continue polyethylene glycol (MIRALAX) packet 17 g(Linked Group 6) 17 g, Per NG tube, DAILY NEEDED, Starting on Sun02/16/22 at 0154, Until Sun02/17/22 at 1602, Constipation If No Bowel Movement in 48 Hours, Recovery to Continue sodium chloride (PF) 0.9 % injection 1-100 mL (COMPLETED) 1-100 mL, Intravenous, ONCE NEEDED, 1 dose, Starting on Sun02/15/22 at 2236, Until Sun02/15/22 at 2236, Flush, CT Procedure 2235 (Given - Provider: Colleen Daniels) Linked Groups Order Group 1: aspirin chewable tablet 81 mgJump to med 81 mg, Oral, DAILY, First dose on Sun02/16/22 at 0900, Until Discontinued
May begin use of chewable aspirin when patient passes swallow test.
Recovery to Continue Or aspirin suppository 300 mgJump to med 300 mg, Rectal, DAILY, First dose on Sun02/16/22 at 0900, Until Discontinued
Use suppository until patient passes swallow test.
Recovery to Continue Group 2: senna (SENOKOT) tablet 8.6 mgJump to med 8.6 mg, Oral, DAILY EVERY MORNING, First dose on Robyn 02/16/22 at 0900, Until Discontinued
Hold if BM in last 2 hours.
Recovery to Continue Or senna (SENOKOT) tablet 8.6 mgJump to med 8.6 mg, Per NG tube, DAILY EVERY MORNING, First dose on Robyn 02/16/22 at 0900, Until Discontinued
Hold if BM in last 2 hours.
Recovery to Continue Group 3: acetaminophen (TYLENOL) tablet 325 mgJump to med 325 mg, Oral, EVERY 4 HOURS NEEDED, Starting on Robyn 02/16/22 at 0154, Until Sun02/17/22 at 1602, Mild Pain, Moderate Pain
Maximum dose of acetaminophen is 4000 mg from all sources in 24 hours.
Recovery to Continue Or acetaminophen (TYLENOL) tablet 325 mgJump to med 325 mg, Per NG tube, EVERY 4 HOURS NEEDED, Starting on Roybn 02/16/22 at 0154, Until Sun02/17/22 at 1602, Mild Pain, Moderate Pain
Maximum dose of acetaminophen is 4000 mg from all sources in 24 hours.
Recovery to Continue Or acetaminophen (TYLENOL) tablet 650 mgJump to med 650 mg, Oral, EVERY 4 HOURS NEEDED, Starting on Robyn 02/16/22 at 0154, Until Sun02/17/22 at 1602, Severe Pain, Oral temp > 99.5
Maximum dose of acetaminophen is 4000 mg from all sources in 24 hours.
Recovery to Continue Or acetaminophen (TYLENOL) tablet 650 mgJump to med 650 mg, Per NG tube, EVERY 4 HOURS NEEDED, Starting on Robyn 02/16/22 at 0154, Until Sun02/17/22 at 1602, Severe Pain, Oral temp > 99.5
Maximum dose of acetaminophen is 4000 mg from all sources in 24 hours.
Recovery to Continue Group 4: hydrALAZINE (APRESOLINE) injection 10 mgJump to med 10 mg, Intravenous, EVERY 1 HOUR NEEDED, Starting on Robyn 02/16/22 at 0154, Until Sun02/17/22 at 1602, Systolic Blood Pressure greater than 220 mmHg and heart rate LESS THAN 60 beats per minute.
Use as initial dose. Higher dose may be administered if lower dose was previously documented as ineffective 10 minutes after administration and did not result in adverse effects (HR>90)
Recovery to Continue Or hydrALAZINE (APRESOLINE) injection 20 mgJump to med 20 mg, Intravenous, EVERY 1 HOUR NEEDED, Starting on Robyn 02/16/22 at 0154, Until Sun02/17/22 at 1602, Systolic Blood Pressure greater than 220 mmHg and heart rate LESS THAN 60 beats per minute.
Higher dose may be administered if lower dose was previously documented as ineffective 10 minutes after administration and did not result in adverse effects (HR>90). Decrease back to lower dose if patient has adverse effects, or no PRN used in previous 3 hours
Recovery to Continue Group 5: labetalol (NORMODYNE) injection 10 mgJump to med 10 mg, Intravenous, EVERY 1 HOUR NEEDED, Starting on Robyn 02/16/22 at 0154, Until Sun02/17/22 at 1602, Systolic Blood Pressure greater than 220 mmHg and heart rate GREATER THAN 60 beats per minute.
Use as initial dose. Higher dose may be administered if lower dose was previously documented as ineffective 10 minutes after administration and did not result in adverse effects (HR<60) For vials: labetalol should be treated as a SINGLE USE VIAL. Discard remaining contents after one use.
Recovery to Continue Or labetalol (NORMODYNE) injection 20 mgJump to med 20 mg, Intravenous, EVERY 1 HOUR NEEDED, Starting on Robyn 02/16/22 at 0154, Until Sun02/17/22 at 1602, Systolic Blood Pressure greater than 220 mmHg and heart rate GREATER THAN 60 beats per minute.
Higher dose may be administered if lower dose was previously documented as ineffective 10 minutes after administration and did not result in adverse effects (HR<60). Decrease back to lower dose if patient has adverse effects, or no PRN used in previous 3 hours For vials: labetalol should be treated as a SINGLE USE VIAL. Discard remaining contents after one use.
Recovery to Continue Group 6: polyethylene glycol (MIRALAX) packet 17 gJump to med 17 g, Oral, DAILY NEEDED, Starting on Robyn 02/16/22 at 0154, Until Sun02/17/22 at 1602, Constipation If No Bowel Movement in 48 Hours, Recovery to Continue Or polyethylene glycol (MIRALAX) packet 17 gJump to med 17 g, Per NG tube, DAILY NEEDED, Starting on Robyn 02/16/22 at 0154, Until Sun02/17/22 at 1602, Constipation If No Bowel Movement in 48 Hours, Recovery to Continue INFORMATION SOURCE (unrecogn ized section and content) DATE CREATED AUTHOR 03/17/2022 [facility] DATE CREATED AUTHOR 'S CARMEN WATSON 04/06/2023 [facility] FOR RECORDS PERTAINING TO PATIENTS WHO ARE OR HAVE BEEN ENROLLED IN A CHEMICAL DEPENDENCY/SUBSTANCEABUSE PROGRAM, SOME INFORMATION MAY BE OMITTED. This clinical summary was aggregated from multiple sources. Caution should be exercised in using it in the provision of clinical care. This summary normalizes information from multiple sources, and as a consequence, information in this document may materially change the coding, format and clinical context of patient data. In addition, data may be omitted in some cases. CLINICAL DECISIONS SHOULD BE BASED ON THE PRIMARY CLINICAL RECORDS. [employer] provides no warranty or guarantee of the accuracy or completeness of information in this document.
[2024-08-05 08:35] LABS: CREATININE FINGERSTICK < 1.0 mg/dL (0.55-1.02); EGFR FINGERSTICK > 60.0000 mL/min (>60)
[2024-08-05 13:21] LABS: Ferritin 71 ng/mL (8-252); Iron 79 ug/dL (50-170); Iron Binding Capacity,Total 285 ug/dL (250-450); PERCENT IRON SATURATION 27.7 % (15.0-55.0)
[2024-08-05 15:49] LABS: Vitamin B12 567 pg/mL (211-911); Vitamin D,25 Hydroxy 20.4 ng/mL
== END | disposition home or self-care (01) ==
PROVIDERS: PCP Internal Medicine; Referring Provider Internal Medicine Gastroenterology; Visit Provider Internal Medicine Gastroenterology
DX: R19.7 Diarrhea, unspecified (principal); E55.9 Vitamin D deficiency, unspecified; E61.1 Iron deficiency
CPT/HCPCS: 36415; 74177; 82306; 82607; 82728; 83540; 83550; Q9967

== ENCOUNTER → 2025-01-28 | Outpatient (CLI) | payer MEDICARE, OTHER, SELFPAY ==
[2025-01-28 10:35] LABS: Bacteria 0 SEEN /hpf (None Seen); Mucous, Urine 0 SEEN /hpf (<or=2+); Red Blood Cells-Urine 0 SEEN /hpf (0-5); White Blood Cells 0 SEEN /hpf (0-5)
[2025-01-29 15:52] LABS: Color, Urine Yellow (Yellow); Glucose, Dipstick Normal (Normal); Ketone-Dipstick Negative (Negative); Leukocyte Esterase-Dipstick Negative /ul (Negative); Nitrite-Dipstick Negative (Negative); Occult Blood-Urine Negative /ul (Negative); Protein-Dipstick Negative (Negative); Urine Bilirubin Dipstick Negative (Negative); Urine Clarity Clear (Clear); Urine Urobilinogen Normal (Normal)
[2025-01-29 16:19] LABS: Squamous Epithelial Cells - UA 0-5 SEEN /hpf (5-10)
== END | disposition home or self-care (01) ==
LOC: LABSPEC 10:34
PROVIDERS: PCP Internal Medicine; Referring Provider Internal Medicine; Visit Provider Internal Medicine
DX: R39.15 Urgency of urination (principal)
CPT/HCPCS: 81001; 87077; 87086; 87088

== ENCOUNTER → 2025-03-31 | Outpatient (CLI) | payer MEDICARE, OTHER, SELFPAY ==
[2025-03-31 12:33] LABS: Absolute Lymphocyte Count 1.39 X10^3/uL (0.83-4.51); Absolute Neutrophil Count 2.8 X10^3/uL (2.0-7.7); Basophil# 0.07 X10^3/uL; Basophil% 1.4 % (0-1); Eosinophil# 0.22 X10^3/uL; Eosinophils% 4.4 % (0-5); Hematocrit 42.4 % (37-47); Hemoglobin 14.1 g/dL (12.0-15.0); Lymphocyte # 1.39 X10^3/ul (0.83-4.51); Lymphocyte % 28.1 % (19-41); Mean Corp Hgb Conc 33.3 g/dL (32-36); Mean Corpuscular Hgb 32.4 pg (27.0-32.0); Mean Corpuscular Volume 97.5 fL (81-99); Mean Platelet Vol. 11.7 fl (6.2-12.0); Monocyte# 0.42 X10^3/uL; Monocyte% 8.5 % (0-10); NRBC Flagged by Analyzer 0 % (0-5); Neutrophil # 2.84 X10^3/uL (2.7-7.7); Neutrophil % 57.4 % (47-70); Platelet Count 261 K/mm3 (150-450); RBC Distribution Width CV 11.9 % (11.6-14.6); RBC Distribution Width SD 43.1 fl (35.1-43.9); Red Blood Count 4.35 M/mm3 (4.2-5.4)
[2025-03-31 13:34] LABS: ALB/GLOB Ratio 1.4 RATIO (0.9-2.4); AST(SGOT) 24 U/L (<=31); Alanine Aminotransfer ALT/SGPT 20 U/L (<=34); Alkaline Phosphatase 80 U/L (35-104); Anion Gap 11 (5-15); BUN 12 mg/dL (4-19); BUN/Creat Ratio 17.1 RATIO (10-20); Calcium,Total 9.4 mg/dL (7.6-11.0); Carbon Dioxide 26.6 mmol/L (21.0-32.0); Chloride 104 mmol/L (98-108); Cholesterol 310 mg/dL (<=200); Creatinine, Serum 0.71 mg/dL (0.70-1.20); EST Glomerular Filtration Rate 83 (>60); Globulin 2.8 g/dL (2.2-4.2); Glucose 89 mg/dL (70-99); High Density Lipoprotein 68 mg/dL; Low Density Lipoprotein Calc. 217 mg/dL; Potassium 4.2 mmol/L (3.3-5.1); Protein, Total 6.8 g/dL (5.9-8.4); Sodium Level 141 mmol/L (133-145); Total Bilirubin 0.41 mg/dL (0.00-1.30); Triglycerides 126 mg/dL; Very Low Density Lipoprotein 25 mg/dL (5-40); Vitamin B12 1784 pg/mL (180-914); Vitamin D,25 Hydroxy 34.7 ng/mL (30-100); cholesterol:hdl ratio screen 4.59
== END | disposition home or self-care (01) ==
LOC: BIMLAB 08:59
PROVIDERS: PCP Internal Medicine; Referring Provider Internal Medicine; Visit Provider Internal Medicine
DX: E55.9 Vitamin D deficiency, unspecified (principal); E78.5 Hyperlipidemia, unspecified; I10 Essential (primary) hypertension
CPT/HCPCS: 36415; 80053; 80061; 82306; 82607; 85025

== ENCOUNTER 2025-07-30 17:47 | Inpatient (IN) | payer MEDICARE, OTHER, SELFPAY ==
[2025-07-30] VITALS (11 sets, daily range): BP systolic 136–169; BP diastolic 50–81; PULSE 72–84; RESP 16–20; TEMP 36.2–36.9; O2SAT 94–99; BMI 21.2; BMI 20.9
--- NOTE | 2025-07-30 17:48 | EKG12_ITS ---
Test Reason : DYSRHYTHMIA Blood Pressure : */* mmHG Vent. Rate : 82 BPM Atrial Rate : * BPM P-R Int : * ms QRS Dur : 114 ms QT Int : 420 ms P-R-T Axes : * -36 86 degrees QTcB Int : 490 ms Atrial fibrillation Left axis deviation Minimal voltage criteria for LVH, may be normal variant ( Nic product ) Septal infarct , age undetermined Inferior infarct , age undetermined QTcB >= 480 msec Abnormal ECG Confirmed by RONALD VALLES ([id number]), fashion editor AZIZA BALL ([id number]) on 08/03/2025 6:33:21 AM Referred By: Confirmed By: RONALD VALLES
--- NOTE | 2025-07-30 17:48 | CT_ITS ---
PROCEDURE: STROKE BRAIN/HEAD WITHOUT CONT 07/30/2025 REASON FOR EXAM: NEURO DEFICIT, ACUTE, STROKE SUSPECTED TECHNIQUE: Procedure Code: CTBR.ST Modality: CT Procedure: STROKE BRAIN/HEAD WITHOUT CONT Coronal and Sagittal reconstruction series were provided. One or more dose reduction techniques were used (e.g., Automated exposure control, adjustment of the mA and/or kV according to patient size, use of iterative reconstruction technique. FINDINGS: Breast severe global parenchymal atrophy. Periventricular white matter hypodensity likely representing severe chronic microvascular ischemia. No evidence of acute hemorrhage or infarction. No extra-axial blood or fluid collections. The paranasal sinuses and mastoid air cells are clear. The calvarial vault and skull base are intact. CT/STROKE Brain/Head without Cont IMPRESSION: No acute intracranial abnormality. Critical results were communicated to Dr. Magana at 6 p.m.. Reading Location: [id number]
--- NOTE | 2025-07-30 17:49 | CT_ITS ---
PROCEDURE: STROKE CTA HEAD AND NECK W/CON 07/30/2025 REASON FOR EXAM: NEURO DEFICIT, ACUTE, STROKE SUSPECTED TECHNIQUE: Procedure Code: CTCTA.ST.HN Modality: CT Procedure: STROKE CTA HEAD AND NECK W/CON Multiplanar Sagittal and Coronal images were obtained. CONTRAST: Isovue 370 VOLUME: 100 mL One or more dose reduction techniques were used (e.g., Automated exposure control, adjustment of the mA and/or kV according to patient size, use of iterative reconstruction technique). RADIATION DOSE SUMMARY: CTDlvol: 26.19 mGy DLP: 872.47 mGycm COMPARISON: None. FINDINGS: Aortic Arch: Normal size and branching pattern. No significant atherosclerotic plaque. Brachiocephalic and Subclavians: Unremarkable RIGHT Carotid: Right CCA: Unremarkable. Right ICA: Atherosclerotic calcifications at the carotid bulb without hemodynamically significant stenosis. Right ECA: Unremarkable. LEFT Carotid: Left CCA: Unremarkable. Left ICA: Atherosclerotic calcifications of the carotid bulbs without hemodynamically significant stenosis. Left ECA: Unremarkable. Vertebrals: Codominant. Arise from the subclavians. Both vertebrals form the basilar. RIGHT Vertebral: Unremarkable. LEFT Vertebral: Unremarkable. Anatomy: [place] of [place] anatomy is normal. Aneurysm or avm: No intracranial aneurysms or large vascular malformations are identified. Anterior cerebral arteries: Unremarkable: Middle cerebral arteries: Unremarkable. Basilar artery: Unremarkable. Posterior cerebral arteries: Unremarkable. Other major branches of the posterior circulation: Unremarkable. Major venous structures: Other findings: Neck: No lymphadenopathy. Lungs: Lung apices are clear. Bones: Bones are unremarkable. CT/STROKE CTA Head AND Neck W/Con IMPRESSION: No hemodynamically significant stenosis in the head and neck. Reading Location: [facility]
[2025-07-30 18:08] LABS: Hematocrit 42.5 % (37-47); Hemoglobin 14.1 g/dL (12.0-15.0); Immature Granulocytes Count 0.010 X10^3/uL (0.0-0.0); Mean Corp Hgb Conc 33.2 g/dL (32-36); Mean Corpuscular Volume 95.7 fL (81-99); Mean Platelet Vol. 10.7 fl (6.2-12.0); NRBC Flagged by Analyzer 0 % (0-5); Platelet Count 263 K/mm3 (150-450); RBC Distribution Width CV 12.2 % (11.6-14.6); RBC Distribution Width SD 42.9 fl (35.1-43.9); Red Blood Count 4.44 M/mm3 (4.2-5.4); White Blood Count 7.6 K/mm3 (4.4-11.0)
[2025-07-30 18:18] LABS: Prothrombin Time (Protime)PT. 16.1 SECONDS (11.7-14.9)
[2025-07-30 18:19] LABS: Partial Thromboplast Time 26.6 Seconds (24.1-36.2)
--- NOTE | 2025-07-30 18:20 | EDS_ITS ---
HPI History of Present Illness Chief Complaint: Stroke Alert Detail of Chief Complaint: Strokelike symptoms with slurred speech facial droop starting at 1500 Informant: patient and family Onset/Context/Timing Onset: Today Context: Sudden Onset Timing: Continuous Quality and Location: Positive for Right Facial Droop and Slurred Speech Onset: 1500 Current Severity: Mild Maximum Severity: Mild Worsened by: Nothing Relieved by: Nothing Associated Symptoms Associated Symptoms: Negative for Headache, Nausea, Vomiting or Chest Pain Narrative Narrative: Patient is an elderly woman with prior stroke involving the right MCA distribution. She presents with slurred speech, facial droop. She is disoriented. This is not abnormal for her per daughter. This is baseline. She is on Xarelto. She is compliant with her Xarelto. She has persistent longstanding atrial fibrillation and reason she is on Xarelto. Daughter states she was worse and unable to walk. Prior similar symptoms: Yes Recent Illness/Hospitalization: No [facility] Medical History Diarrhea Cellulitis of mid back region Abrasion of right upper back excluding scapular region Longstanding persistent atrial fibrillation Arthritis involving multiple sites Essential hypertension CVA (cerebral vascular accident) (02/15/22) Anxiety GERD (gastroesophageal reflux disease) HLD (hyperlipidemia) Home Medications Medication Instructions Recorded Last Taken Type fluorometholone 0.1 % eye 1 drp ophthalmic (eye) BID P RN Dry 03/02/22 Unknown History drops,suspension Eyes cyanocobalamin (vitamin B-12) 1,000 mcg PO DAILY vitam in 05/08/23 04/18/24 History 1,000 mcg tablet ferrous sulfate 325 mg (65 mg 325 mg PO DAILY suppleme nt 05/08/23 04/18/24 History iron) tablet (Feosol) lorazepam 0.5 mg tablet 0.25 mg (1/2 x 0.5 mg) PO NJ N PRN 10/18/23 Unknown Rx anxiety #10 tabs handicap placard #1 ea 01/23/24 Unknown Rx cholecalciferol (vitamin D3) 25 2,000 unit PO DAILY vi tamin 08/08/24 Unknown History mcg (1,000 unit) tablet rivaroxaban 20 mg tablet (Xarelto) 20 mg PO QPM blood thinner #90 tabs 11/20/24 Unknown Rx carvedilol 3.125 mg tablet (Coreg) 3.125 mg PO BID #18 0 tabs 01/28/25 Unknown Rx cetirizine 5 mg tablet 2.5 mg PO QDAY PRN 06/29/25 Unknown History losartan 100 mg tablet 100 mg PO DAILY blood pressu re #90 06/29/25 Unknown Rx tabs Allergy/AdvReac Type Severity Reaction Status Date / Time clindamycin Allergy Other Verified 07/30/25 17:48 hyoscyamine Allergy Other Verified 07/30/25 17:48 Penicillins Allergy Hives Verified 07/30/25 17:48 Txmcyid-UXL-OiJ Reductase Allergy Pain in Verified 07/30/25 17:48 Inhibitor (Evdbcig-Ovc-Bmz joints Reductase Inhibitor) nitrofurantoin (From AdvReac Mild altered Verified 07/30/25 17:48 Macrobid) mental status glucosamine AdvReac Other Verified 07/30/25 17:48 Family History Father Diabetes Hyperlipemia Mother Cancer stomach Brother Parkinson's disease Surgical History Cataract extraction status Social History household members: none current occupational status: retired 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 pets and animals: Yes pets and animals: cat(s) Smoking Status: Never smoker Electronic Cigarette Use: not used alcohol intake: current alcohol intake frequency: holidays/special occasions only substance use type: does not use what type of physical activity do you participate in: other details: gardening do you feel safe at home: Yes ROS ROS ED Constitutional Constitutional ED: Denies chills, fever(s), subjective or sweats Eyes Eyes: Denies blurry vision or change in vision ENT ENT ED: Denies ear pain, rhinorrhea or sore throat Cardiovascular Cardiovascular: Denies chest pain, palpitations, paroxysmal nocturnal dyspnea or racing heartbeat Respiratory/Chest Respiratory/Chest: Denies cough, dyspnea, dyspnea on exertion or paroxysmal nocturnal dyspnea Gastrointestinal Gastrointestinal: Denies abdominal pain, nausea or vomiting Genitourinary Genitourinary ED: Denies dysuria, hematuria or urinary frequency Musculoskeletal Musculoskeletal: Denies arthralgias or myalgias Integumentary Denies rash Neurologic Neurologic: Reports weakness; Denies headache(s) or paresthesias Psychiatric Psychiatric: Denies anxiety Hematologic/Lymphatic Hematologic/Lymphatic: Denies easy bleeding or easy bruising EXAM Physical Exam Const Vital Signs: 07/30/25 17:48 07/30/25 17:50 07/30/25 18:08 Temperature 97.2 F L Temperature Source Temporal Pulse Rate 84 84 Respiratory Rate 19 H 19 H Blood Pressure 159/50 H 159/50 H Blood Pressure Mean 86 86 Pulse Ox 99 99 Oxygen Delivery Method Room Air Room Air Room Air 07/30/25 18:13 Temperature Temperature Source Pulse Rate 73 Respiratory Rate 19 H Blood Pressure 169/81 H Blood Pressure Mean 110 Pulse Ox 97 Oxygen Delivery Method Room Air Positive well nourished and well developed General Appearance ED: well developed and NAD Eyes PERRL and EOMs intact bilaterally Eyes Narrative: There is no nystagmus. General Eye ED: Negative for pale conjunctiva or scleral icterus Neck no lymphadenopathy, supple and no JVD Chest Wall inspection of chest normal and palpation of chest normal Resp normal respiratory effort Cardio Rate: regular rate Rhythm: abnormal rhythm irregularly irregular GI normal to inspection, nondistended, normoactive bowel sounds, soft to palpation, non-tender and non-distended Auscultation: normoactive bowel sounds Extremity normal to inspection Neuro No oriented x3, No CN's II-XII intact bilaterally and no sensory deficits noted Sensorium / Orientation: alert Speech: Negative for speech normal Motor Exam: strength 5/5 throughout Psych mental status grossly normal Skin no wounds Lesions: no lesions Rashes: no rashes MDM MDM MDM Narrative Medical decision making narrative: Stroke alert called from triage. Patient is not a TNK candidate since she is on Xarelto. Spoke with Dr. Jean-Claude Johansen stroke neurologist at [facility]. His NIH was 2. He recommended MRI to see if she has a new stroke on prior stroke or extension of prior stroke. Nothing to add at this point. Hospitalist rhythm paged for admission to PCU and MRI to be obtained within the next 12 to 24 hours. Lab Data Attestation: I reviewed the patient's lab results. Lab results narrative: CBC is unremarkable. Coags are unremarkable. Basic metabolic panel is unremarkable. First troponin slightly elevated 19. Apparently this started little bit before 4 PM, 1600. She also at that time complained of some neck pain chest pain and shortness of breath. Will need to follow the troponins. This information was not available and I spoke to the hospitalist. Labs: Laboratory Results - last 24 hr 07/30/25 15:55 WBC 7.6 RBC 4.44 Hgb 14.1 Hct 42.5 MCV 95.7 MCH 31.8 MCHC 33.2 RDW Std Deviation 42.9 RDW Coeff of [place]ak 12.2 Plt Count 263 MPV 10.7 Immature Gran % (Auto) 0.100 Neut % (Auto) 59.1 Lymph % (Auto) 25.8 [place] % (Auto) 9.3 Eos % (Auto) 4.5 Baso % (Auto) 1.2 H Absolute Neuts (auto) 4.5 Absolute Lymphs (auto) 1.95 Nucleated RBC % 0 PT 16.1 H INR 1.3 APTT 26.6 Sodium 143 Potassium 3.8 Chloride 106 Carbon Dioxide 26.5 Anion Gap 10 BUN 16 Creatinine 0.85 Estim Creat Clear Calc 33.49 L Est GFR (MDRD) Non-Af 67 BUN/Creatinine Ratio 18.3 Glucose 108 H Calcium 9.1 Troponin T High Sens 19 H Radiography Diagnostic Testing: Clinical Impression(s) from Imaging Studies Brain CT 07/30/25 17:48 IMPRESSION: No acute intracranial abnormality. Critical results were communicated to Dr. Magana at 6 p.m.. Reading Location: [address] Management Discussion w/another healthcare provider: Hospitalist (Hospitalist was paged at 1815 for admission for stroke workup), Professor Of Geology (Stroke neurologist at [facility]) and Radiologist (Radiologist called to inform me that the C-minus was negative for any acute process) Discharge Plan Dx/Rx/DC Orders Clinical Impression: Dysarthria, Facial droop, Anticoagulant long-term use, Longstanding persistent atrial fibrillation, HLD (hyperlipidemia), Left-sided chest pain, Essential hypertension Disposition Disposition: Acute Care [facility] NIHSS NIHSS 1a. Level of Consciousness: 0 - Alert; keenly responsive 1b. LOC Questions: 1 - Answers ONE question correctly 1c. LOC Commands: 0 - Performs BOTH tasks correctly 2. Best Gaze: 0 - Normal 3. Visual: 0 - No visual loss 4. Facial Palsy: 1 - Minor paralysis (flattened nasolabial fold, asymmetry on smiling) 5a. Left Arm: 0 - No drift; arm holds 90 (or 45) degrees for full 10 seconds 5b. Right Arm: 0 - No drift; arm holds 90 (or 45) degrees for full 10 seconds 6a. Left Le - No drift; leg holds 30-degree position for full 5 seconds 6b. Right Le - No drift; leg holds 30-degree position for full 5 seconds 7. Limb Ataxia: 0 - Absent 8. Sensory: 0 - Normal; no sensory loss 9. Best Language: 0 - No aphasia; normal 10. Dysarthria: 1 = [id number] dysarthria; Total: 3 Stroke Questions Stroke Team Activated: Yes Reviewed Inclusion/Exclusion criteria: Yes IV Thrombolytic Administered: No No contraindications from thrombolytic administration: No
[2025-07-30 18:40] LABS: Anion Gap 10 (5-15); BUN 16 mg/dL (4-19); BUN/Creat Ratio 18.3 RATIO (10-20); Calcium,Total 9.1 mg/dL (7.6-11.0); Carbon Dioxide 26.5 mmol/L (21.0-32.0); Chloride 106 mmol/L (98-108); Estimated Creatinine Clearance 33.49 ml/min (50-250); Glucose 108 mg/dL (70-99); Potassium 3.8 mmol/L (3.3-5.1); Troponin T High Sensitivity 19 ng/L (<=14)
--- NOTE | 2025-07-30 19:24 | CM.ED ---
Social Work Reason for visit: Stroke Alert SW met with patients daughter while patient was in imaging. Daughter states that patient has had a stroke in the past so they did not want to take any chances. Emotional support provided. No further needs at this time. Alyson Sandra, TOOL ROOM MACHINIST, [employer]
--- OUTSIDE RECORDS SUMMARY | 2025-07-30 19:33 | XMS RPT_ITS | CCD ---
Author Organization [facility] Care Team Providers Care Informatics Coordinator Name Role Phone Aleksey DUNN, Harris Vallejo Primary Care Provider Vamsi Mota MD Primary Care Provider [phone] DEBBIE MARTE Attending Unavailable VIRAJ GARIBAY Referring Unavailable [facility] Primary Car e Unavailable VIRAJ GARIBAY Admitting Unavailable VIRAJ GARIBAY Attending Unavailable CONSULT, NEUROLOGY Consulting Unavailable CHRISTINA IRWIN Referring Unavailable Dr. Vamsi Mota Primary Care Provider Dr. Vamsi Mota Referring Provider Dr. Andrae Tomlinson Attending Provider Dr. Deepika Fabian Attending Provider Dr. Deepika Fabian Primary Care Provider Dr. Deepika Fabian Referring Provider Dr. Vamsi Mota Primary Care Provider Dr. Vamsi Mota Referring Provider Harris Mota MD Primary Care Provider Dr. Deepika Fabian Primary Care Provider Dr. Deepika Fabian Attending Provider Dr. Deepika Fabian Referring Provider Dr. Vamsi Mota Referring Provider Gisselle FUENTES, GINA Balbuena Attending Provider Dr. Andrae Tomlinson Attending Provider Dr. Deepika Fabina Primary Care Provider Dr. Deepika Fabian Attending Provider [phone] Dr. Deepika Fabian Referring Provider [phone]) Dr. Deepika Fabian Primary Care Provider Dr. Deepika Fabian Attending Provider [phone]) Dr. Deepika Fabian Referring Provider [phone] Bushra [employer], IN[employer]CTOR [employer]-C Allison Attending Provider Unadora ailable Friend, Dr. Muhammad Attending Provider [phone] Dr. Deepika Fabian Primary Care Provider Dr. Deepika Fabian Attending Provider [phone] Dr. Deepika Fabian Referring Provider [phone] Dr. Andrae Tomlinson Attending Provider [phone] Bushra [employer], IN[employer]CTOR [employer]-C Allison Attending Provider Unav ailable Friend, Dr. Muhammad Attending Provider [phone] Reji FUENTES, [place] Ashu Balbuena Attending Provider Dr. Tobi Cedeno Emergency Provider [phone] Dr. Himanshu Reynolds Admit Provider Unavailable Dr. Himanshu Reynolds Attending Provider Unavailable Dr. Himanshu Reynolds Other Provider Unavailable Dr. Emanuel Rod Other Provider Dr. Rebecca Price Attending Provider [phone] Jody Moffett Attending Provider Dr. Jody Moffett Other Provider Dr. Deepika Fabian Primary Care Provider Dr. Deepika Fabian Referring Provider [phone] Dr. Melisa Montes Attending Provider Dr. Himanshu Reynolds Referring Provider Unavailable Dr. Jody Moffett Attending Provider Dr. Deepika Fabian Attending Provider [phone] Aleksey DUNN, [facility] Primary Care Provider Dr. Deepika Fabian Primary Care Provider Dr. Deepika Fabian Referring Provider [phone] Bushra [employer], INSTRUCTOR [employer] Allison Attending Provider Yasminv asif Luna, Dr. Edwards Attending Provider [phone] Friend, Dr. Muhammad Attending Provider [phone] Dr. Deepika Fabian Primary Care Provider Dr. Deepika Fabian Referring Provider [phone] GINA Sosa Attending Provider Dr. Deepika Fabian Attending Provider [phone] Aleksey DUNN, [facility] Primary Care Provider Caren DUNN, Dr. Poe Primary Care Provider [phone] Dr. Deepika Fabian MD Attending Provider Dr. Deepika Fabian MD Referring Provider Emma De La Torre Attending Provider [phone] Dr. Deepika Fabian MD Primary Care Provider [phone] Dr. Deepika Fabian MD Attending Provider Dr. Deepika Fabian MD Referring Provider Emma De La Torre Attending Provider [phone] Caren, Deepika Primary Care Unavailable [place], Deepika Attending Unavailable [place], Deepika Referring Unavailable Emma Pitts Attending Unavailabl e Caren, Deepika Referring Unavailable [place], Deepika Primary Care Unavailable Emma Pitts Attending Unavailabl e Caren, Deepika Referring Unavailable Caren, Deepika Primary Care Unavailable Caren, Deepika Attending Unavailable [place], Deepika Referring Unavailable [place], Deepika Primary Care Unavailable [place], Deepika Attending Unavailable [place], Deepika Referring Unavailable [place], Deepika Primary Care Unavailable [place], Deepika Attending Unavailable [place], Deepika Referring Unavailable Caren, Deepika Primary Care Unavailable [place], Deepika Primary Care Unavailable Caren, Deepika Attending Unavailable [place], Deepika Referring Unavailable Caren, Deepika Primary Care Unavailable Friend, Jb Attending Unavailable Friend, Jb Referring Unavailable Caren, Deepika Primary Care Unavailable Friend, Jb Attending Unavailable Caren, Deepika Referring Unavailable [place], Deepika Primary Care Unavailable Terrell Sosa Attending Unavailable [place], Deepika Referring Unavailable Caren, Deepika Attending Unavailable Caren, Deepika Referring Unavailable Caren, Deepika Primary Care Unavailable Caren, Deepika Primary Care Unavailable [place], Deepika Attending Unavailable [place], Deepika Referring Unavailable Caren DUNN, Dr. Poe Primary Care Physician Caren DUNN, Dr. Poe Attending Physician Dr. Deepika Fabian MD Referring Provider Kirstin DUNN, Dr. Millan Attending Physician Allergies Allergy Classification Reported Allergen(s) Allergy Type Date of Onset Reaction(s) Facility (20 sources) Clindamycin Drug Allergy 09-06-20 18 Intolerance, Hypertension [facility] Work Phone: (20 sources) Glucosamine Drug Allergy 10-18-19 10 Intolerance, Other: See Comments, Arthralgia [facility] (20 sources) Hyoscyamine Drug Allergy 11-02-19 21 Swelling [facility] Work Phone: (20 sources) Penicillins; Translations: [Penicillins] Allergy to substance 09-18-20 21 Hives [facility] Work Phone: (19 sources) Nsrusmi-Tem-Dvr Reductase Inhibitor; Translations: [Jqsjfui-Ujx-Feu Reductase Inhibitor] Allergy to substance 09-18-20 21 Pain in joints [facility] (14 sources) Aloe vera preparation Drug Allergy 02-08-20 17 Other: See Comments [facility] (14 sources) cumin allergenic extract Drug Allergy 09-23-20 20 GI Upset, Abdominal Discomfort [facility] Work Phone: (8 sources) HMG-CoA reductase inhibitor Propensity to adverse reactions to drug 10-18-19 10 Intolerance [facility] (13 sources) Turmeric extract Drug Allergy 09-23-20 20 GI Upset [facility] Work Phone: (14 sources) Venom-Wasp Propensity to adverse reactions to drug 06-02-20 21 Swelling [facility] (1 source) Benzocaine / Triclosan Drug Allergy 02-08-20 17 Fatigue [facility] (1 source) Curcumin Drug Allergy 09-23-20 20 Abdominal Discomfort [facility] (1 source) Hmg-Coa Reductase Inhibitors (Statins) Propensity to adverse reactions to drug 02-16-20 22 Myalgia [facility] (1 source) Hyoscyamine Drug Allergy 11-02-19 21 Swelling [facility] (6 sources) HMG-CoA reductase inhibitor Propensity to adverse reactions to drug 10-18-19 10 Intolerance [facility] (4 sources) Nitrofurantoin Drug Allergy 01-29-20 25 altered mental status [facility] (1 source) Clindamycin Drug Allergy 06-29-20 25 [facility] (1 source) Glucosamine Drug Allergy 06-29-20 25 [facility] (1 source) Hyoscyamine Drug Allergy 06-29-20 25 [facility] (1 source) Nitrofurantoin Drug Allergy 06-29-20 25 [facility] Medications Current Medications Medication Drug Class(es) Dates [...] 02/18/2022 02/17/2022 Discontinued (Stop Taking at Discharge) B-Complex With Vitamin C (14 sources) Start: 09-23-2016 B-Complex With Vitamin C Active 1 EACH PO DAILY September 23, 2016 2:45pm Start: 09-23-2016 End: 02-21-2022 B-Complex With Vitamin C Dis continued 1 EACH PO DAILY September 23, 2016 12:00am February 21, 2022 9:38pm Start: 09-23-2016 End: 02-21-2022 B-Complex With Vitamin C Dis continued 1 EACH PO DAILY September 23, 2016 1:00am February 21, 2022 10:38pm carvedilol 3.125 mg oral tablet (8 sources) alpha-Adrenergic Vy, beta-Adrenergic Vy Start: 11-13-2024 End: 01-28-2025 take 1 tablet by mouth twice daily at mealtime Carvedilol (Coreg) 3.125 mg tablet Active 3.125 mg PO TWICE A DAY 180 3 January 28, 2025 2:28pm must administer with a meal/food Complies with drug therapy cetirizine hydrochloride 5 mg oral tablet (14 sources) Histamine-1 Receptor Antagonist Start: 06-29-2025 take 2.5 mg by mouth once daily as needed Cetirizine 5 mg tablet Active 2.5 mg PO daily as needed June 29, 2025 12:00am Complies with drug therapy Start: 05-24-2021 take 1 tablet by sammi th once daily cetirizine (ZYRTEC) 10 mg tablet Indications: Bee sting, accidental or unintentional, initial encounter Take 1 tablet by mouth once daily. 60 tablet 0 05/24/2021 Active Comment on above: Take 1 tablet by sammi th once daily. cholecalciferol 0.025 mg oral tablet (9 sources) Vitamin D Start: 08-08-20 take 1 tablet by mouth once daily Cholecalciferol (Vitamin D3) 25 mcg (1,000 unit) tablet Active 2000 U PO DAILY August 08, 2024 11:58am vitamin Complies with drug therapy Start: 05-08-2023 End: 08-08-2024 take 1 tablet by mouth once daily Cholecalciferol (Vitamin D3) 25 mcg (1,000 unit) tablet Discontinued 25 ug PO DAILY May 08, 2023 12:00am August 08, 2024 11:59am vitamin ENZYMES,DIGESTIVE (DIGESTIVE ENZYMES ORAL) (14 sources) ENZYMES,DIGESTIV E (DIGESTIVE ENZYMES ORAL) Take by mouth as needed. Active ENZYMES,DIGESTIV E (DIGESTIVE ENZYMES ORAL) Take by mouth as needed. 0 Active Comment on above: Take by mouth as nee ded. ferrous sulfate 325 mg oral tablet (5 sources) Start: 023 take 1 tablet by mouth once daily Ferrous Sulfate (Feosol) 325 mg (65 mg iron) tablet Active 325 mg PO DAILY May 08, 2023 12:00am supplement Complies with drug therapy fluorometholone 1 mg/ml ophthalmic suspension (18 sources) Corticosteroid Start: 022 Fluorometholone 0.1 % drops,suspension Active 1 NMA OPHTHALMIC TWICE A DAY as needed for Dry Eyes March 02, 2022 12:00am Complies with drug therapy Start: 12-02-2018 End: 06-16-2021 fluorometholone (FML LIQUID FILM) 0.1 % ophthalmic suspension Use 1 Drop in both eyes once daily. 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 Active LACTOBACILLUS AC IDOPHILUS (ACIDOPHILUS ORAL) Take by mouth as needed. 0 Active Comment on above: Take by mouth as nee ded. losartan potassium 100 mg oral tablet (20 sources) Angiotensin 2 Receptor Vy Start: 05-29-2023 End: 06-29-2025 take 1 tablet by mouth once daily Losartan 100 mg tablet Active 100 mg PO DAILY 90 1 Love 22nd, 2025 10:16am blood pressure Complies with drug therapy Start: 05-29-2023 End: 06-04-2023 take 2 tablets by mouth once daily Losartan 50 mg tablet Discontinued 100 mg PO DAILY May 29, 2023 12:00am June 04, 2023 11:14am . Start: 05-29-2023 End: 06-04-2023 take 100 mg by mouth once daily Losartan Discontinued 100 MG PO DAILY May 28, 2023 11:00pm June 04, 2023 10:14am Start: 03-06-2023 End: 05-29-2023 take 1 tablet by mouth once daily Losartan 50 mg tablet Discontinued 50 mg PO DAILY March 06, 2023 8:08am May 29, 2023 1:38pm . Start: 02-13-2023 End: 03-06-2023 Losartan 100 mg tablet Disco ntinued 50 mg PO DAILY February 13, 2023 8:58am March 06, 2023 8:08am . Start: 02-13-2023 End: 03-06-2023 take 50 mg by mouth once daily Losartan Discontinued 5 0 MG PO DAILY February 13, 2023 7:58am March 06, 2023 7:08am Start: 07-12-2022 End: 08-29-2022 Losartan 100 mg tablet Disco ntinued 50 mg PO DAILY July 12, 2022 4:58pm August 29, 2022 5:36pm Start: 07-12-2022 End: 08-29-2022 take 50 mg by mouth once daily Losartan Discontinued 5 0 MG PO DAILY July 12, 2022 3:58pm August 29, 2022 4:36pm Start: 09-17-2021 End: 02-13-2023 take 1 tablet by mouth once daily Losartan 100 mg tablet Discontinued 100 mg PO DAILY 04 01October 03, 2022 10:48am February 08, 2023 2:22pm Start: 08-23-2020 End: 08-17-2021 take 1 tablet by mouth once daily losartan (COZAAR) 100 mg tablet Indications: Essential hypertension Take 1 tablet by mouth once daily. 90 tablet 3 08/23/2020 08/17/2021 Discontinued Comment on above: Take 1 tablet by sammi th once daily. Take 1 tablet by sammi th once daily Magnesium (20 sources) Start: 02-15-2022 take 400 mg by mouth once daily Magnesium Active 400 MG PO DAILY February 15, 2022 3:47pm Start: 02-15-2022 End: 02-21-2022 take 2 tablets by mouth once daily Magnesium 200 mg Tablet Discontinued 400 mg PO DAILY February 15, 2022 12:00am February 21, 2022 10:38pm Start: 02-15-2022 End: 02-21-2022 take 400 mg by mouth once daily Magnesium Discontinued 400 MG PO DAILY February 14, 2022 11:00pm February 21, 2022 9:38pm Start: 02-15-2022 End: 02-21-2022 take 400 mg by mouth once daily Magnesium Discontinued 400 MG PO DAILY February 15, 2022 12:00am February 21, 2022 10:38pm take 1 tablet by sammi th two times weekly Magnesium 250 mg tab Take 250 mg by mouth twice a week. Active take 1 tablet by sammi th two times weekly Magnesium 250 mg tab Take 250 mg by mouth twice a week. 0 Active Comment on above: Take 250 mg by mouth twice a week. mixed vegetables tablet (2 sources) Start: 07-12-2022 mixed vegetables tablet Active PO July 11, 2022 11:00pm Naproxen (14 sources) Nonsteroidal Anti-inflammatory Drug naproxen sodium ( ALEVE ORAL) Take by mouth as needed. Active naproxen sodium (ALEVE ORAL) Take by mouth as needed. 0 Active Comment on above: Take by mouth as nee ded. OMEGA-3 FATTY ACIDS-FISH OIL 300 MG-1,000 MG CAP (14 sources) Start: 10-18-2009 OMEGA-3 FATTY ACIDS-FISH OIL 300 MG-1,000 MG CAP 2400mg per day 0 10/18/2009 Active Comment on above: 2400mg per day psyllium 3400 mg powder for oral suspension (2 sources) Start: 07-05-2022 Psyllium Husk (Aspartame) (Metamucil [facility] Fiber) 3.4 gram/5.8 gram powder Active 5.8 GM PO DAILY 660 July 04, 2022 11:00pm vitamin b12 1 mg oral tablet (5 sources) Vitamin B12 Start: 05-08-2023 take 1 tablet by mouth once daily Cyanocobalamin (Vitamin B-12) 1,000 mcg tablet Active 1000 ug PO DAILY May 08, 2023 12:00am vitamin Complies with drug therapy Zinc (14 sources) take 1 tablet by [...] needed acetaminophen (TYLENOL) tablet 325 mg amLODIPine 2.5 mg oral tablet (20 sources) Dihydropyridine Calcium Channel Vy Start: 07-31-2023 End: 04-19-2024 take 1 tablet by mouth once daily Amlodipine 2.5 mg tablet Discontinued 2.5 mg PO DAILY 90 October 18, 2023 2:37pm April 19, 2024 2:01pm Start: 07-10-2023 End: 07-31-2023 take 2.5 mg by mouth once daily Amlodipine 5 mg tablet Discontinued 2.5 mg PO DAILY July 10, 2023 9:46am July 31, 2023 10:18am Start: 07-10-2023 End: 07-31-2023 take 2.5 mg by mouth once daily Amlodipine Discontinue d 2.5 MG PO DAILY July 10, 2023 8:46am July 31, 2023 9:18am Start: 06-06-2023 End: 07-10-2023 take 1 tablet by mouth once daily Amlodipine 5 mg tablet Discontinued 5 mg PO DAILY 06 09June 06, 2023 12:00am July 10, 2023 9:46am Start: 09-23-2016 End: 07-12-2022 take 1 tablet by mouth once daily Amlodipine 5 mg tablet Discontinued 5 mg PO DAILY July 07, 2022 12:00am July 12, 2022 4:21pm Comment on above: Take 1 tablet by sammi th once daily. aspirin 81 mg chewable tablet (1 source) Platelet Aggregation Inhibitor, Nonsteroidal Anti-inflammatory Drug Start: 02-16-2022 End: 02-17-2022 aspirin chewable tablet 81 mg autologous serum (17 sources) Start: 03-02-2022 End: 08-23-2022 autologous serum Discontinued MC 0 March 02, 2022 12:00am August 23, 2022 2:31pm 4 times a day in each eye Start: 03-02-2022 End: 08-23-2022 autologous serum Discontinue d MC March 02, 2022 12:00am August 23, 2022 2:31pm 4 times a day in each eye Start: 03-02-2022 End: 08-23-2022 autologous serum Discontinue d MC March 01, 2022 11:00pm August 23, 2022 1:31pm 4 times a day in each eye Start: 03-02-2022 autologous ser um Active MC March 02, 2022 12:00am 4 times a day in each eye B-Complex With Vitamin C 1 EACH tablet (4 sources) Start: 09-23-2016 End: 02-21-2022 take 1 tablet by mouth once daily B-Complex With Vitamin C 1 EACH tablet Discontinued 1 NMA PO DAILY September 23, 2016 1:00am February 21, 2022 10:38pm budesonide 3 mg delayed release oral capsule (20 sources) Corticosteroid Start: 02-21-2024 End: 11-13-2024 take 2 capsules by mouth once daily Budesonide 3 mg capsule,delayed,ext end.release Discontinued 6 mg PO DAILY August 05, 2024 10:29am November 13, 2024 11:32am inflammation reports that this is on hold Start: 12-13-2022 End: 01-24-2024 take 2 capsules by mouth once daily Budesonide 3 mg capsule,delayed,extend.release Discontinued 6 mg PO DAILY 180 90 0 October 26, 2023 10:29am January 23, 2024 12:00am January 24, 2024 12:06am Start: 12-13-2022 End: 03-02-2023 take 6 mg by mouth once daily Budesonide Discontinued 6 MG PO DAILY Ma 2022 1:22pm March 02, 2023 12:51pm Start: 11-10-2022 End: 12-13-2022 take 1 capsule by mouth once daily Budesonide 6 mg capsule, extended releas e Discontinued 6 mg PO DAILY 90 0 December 08, 2022 3:11pm December 13, 2022 7:56am calcium carbonate 1500 mg oral tablet (17 sources) Start: 02-22-2022 End: 02-13-2023 take 1 tablet by mouth once daily Calcium Carbonate 600 mg calcium (1,500 mg) tablet Discontinued 600 mg PO DAILY February 22, 2022 12:00am February 13, 2023 1:13pm . calcium carbonate 1250 mg / cholecalciferol 600 unt oral tablet (20 sources) Vitamin D Start: 09-23-2016 End: 02-21-2022 Calcium Carbonate-Vitamin D3 1 EACH tablet Discontinued 1 NMA PO TWICE A DAY September 23, 2016 1:00am February 21, 2022 10:38pm Start: 09-23-2016 End: 02-21-2022 Calcium Carbonate-Vitamin D3 Discontinued 1 EACH PO TWICE A DAY September 23, 2016 12:00am February 21, 2022 9:38pm Start: 10-18-2009 calcium carbon ate/vitamin d3(CALCIUM 600 + D(3) 600 MG (1,500)-200 UNIT TAB) Take one(1) tablet twice daily. 0 10/18/2009 Active Comment on above: Take one(1) tablet t wice daily. cefdinir 300 mg oral capsule (13 sources) Cephalosporin Antibacterial Start: 2 End: 2 take 1 capsule by mouth twice daily Cefdinir 300 mg capsule Discontinued 300 mg PO TWICE A DAY 10 July 12, 2022 12:00am August 23, 2022 2:29pm cinnamon bark 500 mg oral capsule (20 sources) Start: 6 End: 3 take 1 capsule by mouth once daily Cinnamon Bark 500 mg capsule Discontinued 500 mg PO DAILY February 22, 2022 12:00am February 13, 2023 1:11pm . Start: 09-23-2016 End: 02-21-2022 take 1000 mg by mouth once daily Cinnamon Bark Discontinued 1000 MG PO DAILY September 23, 2016 12:00am February 21, 2022 9:38pm CINNAMON BARK (C INNAMON ORAL) Take by mouth. Active CINNAMON BARK (C INNAMON ORAL) Take by mouth. 0 Active Comment on above: Take by mouth. doxycycline monohydrate 100 mg oral tablet (20 sources) Tetracycline-cla ss Drug Start: 07-10-2024 End: 07-20-2024 take 1 tablet by mouth twice daily Doxycycline Monohydrate 100 mg tablet Discontinued 100 mg PO TWICE A DAY July 10, 2024 12:00am July 19, 2024 12:00am July 20, 2024 12:08am Start: 06-27-2023 End: 07-07-2023 take 1 capsule by mouth twice daily Doxycycline Hyclate 100 mg capsule Discontinued 100 mg PO TWICE A DAY June 27, 2023 12:00am July 06, 2023 12:00am July 07, 2023 12:25am Acute sinusitis, unspecified Start: 01-01-2023 End: 02-13-2023 take 1 capsule by mouth twice daily Doxycycline Monohydrate 100 mg capsule Discontinued 100 mg PO TWICE A DAY February 08, 2023 2:22pm February 13, 2023 8:52am . 0.4 ml enoxaparin sodium 100 mg/ml prefilled syringe (1 source) Low Molecular Weight Heparin Start: 02-16-2022 End: 02-17-2022 Enoxaparin Sodium (LOVENOX) injection 40 mg famotidine 20 mg oral tablet (20 sources) Histamine-2 Receptor Antagonist Start: 07-12-2022 End: 02-13-2023 take 1 tablet by mouth once daily as needed for gastroesophageal reflux disease Famotidine 20 mg tablet Discontinued 20 mg PO DAILY as needed for GERD August 23, 2022 2:29pm February 13, 2023 1:13pm Start: 02-15-2022 End: 02-22-2022 take 1 tablet by mouth once daily Famotidine 20 MG tab let Discontinued 20 mg PO DAILY February 15, 2022 3:54pm February 22, 2022 11:44am Start: 08-25-2019 End: 06-16-2021 take 1 tablet by mouth every twenty-four hours as needed for gastroesophageal reflux disease and gastroesophageal reflux disease famotidine (PEPCID) 20 mg tablet Indications: Gastroesophageal reflux disease, esophagitis presence not specified Take 1 tablet by mouth at bedtime as needed. 90 tablet 3 08/25/2019 06/16/2021 Discontinued Start: 07-27-2016 End: 02-15-2022 take 1 tablet by mouth twice daily Famotidine 20 MG ta blet Discontinued 20 mg PO TWICE A DAY 28 July 27, 2016 12:00am February 15, 2022 3:55pm fluticasone propionate 0.05 mg/actuat metered dose nasal spray (13 sources) Corticosteroid Start: 07-12-2022 End: 08-23-2022 take 50 ug nasal route once daily Fluticasone Propionate (Flonase Allergy Relief) 50 mcg/actuation spray,suspension Discontinued 1 NMA INTRANASAL DAILY July 12, 2022 12:00am August 23, 2022 2:29pm administer into each nostril Start: 07-12-2022 End: 08-23-2022 take 1 spray(s) nasal route once daily Fluticasone Propionate (Flonase Allergy Relief) 50 mcg/actuation spray,suspension Discontinued 1 SPRAY INTRANASAL DAILY July 11, 2022 11:00pm August 23, 2022 1:29pm administer into each nostril Glycerin-Min Oil-Polycarboph il (Replens) gel (5 sources) Start: 07-31-2023 End: 04-19-2024 Glycerin-Min Oil-Polycarboph il (Replens) gel Discontinued 1 NMA VAGINAL DAILY July 31, 2023 12:00am April 19, 2024 2:03pm Start: 07-31-2023 End: 04-19-2024 Glycerin-Min Oil-Polycarboph il (Replens) gel Discontinued 1 NMA VAGINAL DAILY July 31, 2023 12:00am April 19, 2024 2:03pm Start: 07-31-2023 Glycerin-Min O il-Polycarbophil (Replens) gel Active 1 EACH VAGINAL DAILY July 30, 2023 11:00pm 1 ml hydrALAZINE hydrochloride 20 mg/ml injection (1 source) Arteriolar Vasodilator Start: 02-15-2022 End: 02-17-2022 hydrALAZINE (APRESOLINE) injection 10 mg hydrALAZINE (APRESOLINE) injection 10 mg (1 source) Start: 02-16-2022 End: 02-17-2022 take 10 mg intravenously every hour as needed hydrALAZINE (APRESOLINE) injection 10 mg hydroCHLOROthiazide 25 mg oral tablet (20 sources) Thiazide Diuretic Start: 09-17-2021 End: 02-13-2023 take 1 tablet by mouth once daily Hydrochlorothiazide 25 mg tablet Discontinued 25 mg PO DAILY 30 3 October 03, 2022 10:48am February 08, 2023 2:22pm Start: 08-23-2020 End: 08-17-2021 take 1 tablet [...] 5 mg/ml injectable solution (1 source) beta-Adrenergic Vy Start: End: labetalol (NORMODYNE) injection 20 mg labetalol (NORMODYNE) injection 10 mg (1 source) Start: End: take 10 mg intravenously every hour as needed labetalol (NORMODYNE) injection 10 mg LORazepam 0.5 mg oral tablet (20 sources) Benzodiazepine Start: End: Lorazepam 0.5 mg tablet Discontinued 0.25 mg PO NEEDED as needed for anxiety February 08, 2023 2:22pm October 18, 2023 10:11am Start: 05-04-2022 End: 02-08-2023 Lorazepam Active 0.25 MG PO NEEDED February 08, 2023 1:22pm Start: 03-02-2022 End: 05-04-2022 take 1 tablet by mouth once daily as needed Lorazepam 0.5 mg tablet Discontinued 0.5 mg PO DAILY as needed March 02, 2022 12:00am May 04, 2022 5:17pm Start: 09-23-2016 End: 02-21-2022 take 1 tablet by mouth twice daily as needed for anxiety Lorazepam 0.5 MG tablet Discontinued 0.5 mg PO TWICE DAILY NEEDED as needed for Anxiety September 23, 2016 1:00am February 21, 2022 10:39pm Comment on above: Take 1 tablet by [facility] twice daily as needed for up to 30 days. magnesium oxide 400 mg oral tablet (18 sources) Start: 02-22-2022 End: 02-13-2023 take 1 tablet by mouth once daily Magnesium Oxide 400 mg (241.3 mg magnesium) tablet Discontinued 400 mg PO DAILY February 22, 2022 12:00am February 13, 2023 1:12pm . Start: 02-16-2022 End: 02-16-2022 magnesium oxide (MAG-OX) tab let 800 mg methylsulfonylmethane 1000 mg oral tablet (20 sources) Start: 09-23-2016 End: 02-21-2022 take 1 tablet by mouth once daily Methylsulfonylmethane (Msm) 1,000 MG tablet Discontinued 1000 mg PO DAILY September 23, 2016 1:00am February 21, 2022 10:38pm Start: 10-04-2010 take [address] [facility] once daily Methylsulfonylmethane (MSM) 500 mg ORAL Cap two tabs daily 0 10/04/2010 Active Comment on above: two tabs daily metoprolol tartrate 50 mg oral tablet (20 sources) beta-Adrenergic Vy Start: 11-13-2024 End: 11-13-2024 take 1 tablet by mouth twice daily Metoprolol Tartrate 50 mg tablet Discontinued 50 mg PO TWICE A DAY November 13, 2024 1:00am November 13,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 than half the days 5. Poor appetite or overeating: not at all 6. Feeling bad about yourself - or that you are a failure or have let yourself and your family down: not at all 7. Trouble concentrating on things, such as reading the newspaper or watching television: nearly every day 8. Moving or speaking so slowly that other people could have noticed? - Or the opposite - being so fidgety or restless that you have been moving around a lot more than usual: not at all 9. Thoughts that you would be better off or of hurting yourself in some way: several days Total score: 9 Source: Developed by Drs. Rudy Araujo, Susie Nuñez, Michel Bueno and colleagues, with an educational sadie from [employer]. COLIN-7 BMS COLIN-7 Feeling nervous, anxious, or on edge: 0 = Not at all Not being able to stop or control worryin = Not at all Worrying too much about different things: 0 = Not at all Trouble relaxin = Not at all Being so restless that it is hard to sit still: 0 = Not at all Becoming easily annoyed or irritable: 0 = Not at all Feeling afraid as if something awful might happen: 0 = Not at all Total COLIN-7 score (more content not included)... Normal [facility] Absolute lymphocyte countOrd ered By: Deepika Fabian on 03-31-2025 Lymphocytes Auto (Unsp spec) [#/Vol] 1.39 10*3/uL 0.83-4.51 [facility] Absolute neutrophil countOrd ered By: Deepika Fabian on 03-31-2025 Neutrophils (Bld) [#/Vol] 2.8 10*3/uL 2.0-7.7 [facility] Anion gap in Serum or Plasma Ordered By: Deepika Fabian on 03-31-2025 Anion gap [Moles/Vol] 11 mmol/L 5-15 [facility] Automated lymphocyte count a s percentage of total leukocytesOrdered By: Deepika Fabian on 03-31-2025 Lymphocytes/100 WBC Auto (Unsp spec) 28.1 % 19-41 [facility] BUN/creatinine ratioOrdered By: Deepika Fabian on 03-31-2025 Urea nitrogen/Creatinine [Mass ratio] 17.1 mg/mg 10-20 [facility] Basophil percentageOrdered B y: Deepika Fabian on 03-31-2025 Basophils/100 WBC (Bld) 1.4 % High 0-1 [facility] Bilirubin, totalOrdered By: Deepika Fabian on 03-31-2025 Bilirubin [Mass/Vol] 0.41 mg/dL 0.00-1.30 [facility] CBC W/Diff, Automatedon 03-09 Absolute Lymph 1.39 X10 3/uL Normal 0.83-4.51 [facility] Comment on above: Performed By: #### L 500.4100, L506.1001, L503.0106, L100.0100, L500.4050 ####[facility] [address] [place], [address] Absolute Neut 2.8 X10 3/uL Normal 2.0-7.7 [facility] Comment on above: Performed By: #### L 500.4100, L506.1001, L503.0106, L100.0100, L500.4050 ####[facility] [address] [place], [address] Basophils/100 WBC (Bld) 1.4 % High 0-1 [facility] Comment on above: Performed By: #### L 500.4100, L506.1001, L503.0106, L100.0100, L500.4050 ####[facility] [address] [place], [address] Eosinophils/100 WBC (Bld) 4.4 % Normal 0-5 [facility] Comment on above: Performed By: #### L 500.4100, L506.1001, L503.0106, L100.0100, L500.4050 ####[facility] [address] [place], [address] Erythrocyte distribution width (RBC) [Ratio] 11.9 % Normal 11.6-14.6 [facility] Comment on above: Performed By: #### L 500.4100, L506.1001, L503.0106, L100.0100, L500.4050 ####[facility] [address] [place], [address] Hematocrit (Bld) [Volume fraction] 42.4 % Normal 37-47 [facility] Comment on above: Performed By: #### L 500.4100, L506.1001, L503.0106, L100.0100, L500.4050 ####[facility] [address] [place], [address] Hemoglobin (Bld) [Mass/Vol] 14.1 g/dL Normal 12.0-15. 0 [facility] Comment on above: Performed By: #### L 500.4100, L506.1001, L503.0106, L100.0100, L500.4050 ####[facility] [address] [place], [address] IG% 0.200 Normal 0.0-0.9 [facility] Comment on above: Result Comment: IG% - Immature Granulocytes (promyelocytes, myelocytes and metamyelocytes) > 1% indicates that a LEFT SHIFT is Present. Performed By: #### L 500.4100, L506.1001, L503.0106, L100.0100, L500.4050 ####[facility] [address] [place], [address] Lymphocytes/100 WBC (Bld) 28.1 % Normal 19-41 [facility] Comment on above: Performed By: #### L 500.4100, L506.1001, L503.0106, L100.0100, L500.4050 ####[facility] [address] [place], [address] MCH (RBC) [Entitic mass] 32.4 pg High 27.0-32.0 [facility] Comment on above: Performed By: #### L 500.4100, L506.1001, L503.0106, L100.0100, L500.4050 ####[facility] [address] [place], [address] MCHC (RBC) [Mass/Vol] 33.3 g/dL Normal 32-36 [facility] Comment on above: Performed By: #### L 500.4100, L506.1001, L503.0106, L100.0100, L500.4050 ####[facility] [address] [place], [address] MCV (RBC) [Entitic vol] 97.5 fL Normal 81-99 [facility] Comment on above: Performed By: #### L 500.4100, L506.1001, L503.0106, L100.0100, L500.4050 ####[facility] [address] [place], [address] Monocytes/100 WBC (Bld) 8.5 % Normal 0-10 [facility] Comment on above: Performed By: #### L 500.4100, L506.1001, L503.0106, L100.0100, L500.4050 ####[facility] [address] [place], [address] Neutrophils/100 WBC (Bld) 57.4 % Normal 47-70 [facility] Comment on above: Performed By: #### L 500.4100, L506.1001, L503.0106, L100.0100, L500.4050 ####[facility] [address] [place], [address] Nucleated RBC (Bld) [#/Vol] 0 10*3/uL Normal 0-5 [facility] Comment on above: Performed By: #### L 500.4100, L506.1001, L503.0106, L100.0100, L500.4050 ####[facility] [address] [place], [address] Platelet mean volume (Bld) [Entitic vol] 11.7 fL Normal 6.2-12.0 [facility] Comment on above: Performed By: #### L 500.4100, L506.1001, L503.0106, L100.0100, L500.4050 ####[facility] [address] [place], [address] Platelets (Bld) [#/Vol] 261 10*3/uL Normal 150-450 [facility] Comment on above: Performed By: #### L 500.4100, L506.1001, L503.0106, L100.0100, L500.4050 ####[facility] [address] [place], [address] RBC (Bld) [#/Vol] 4.35 10*6/uL Normal 4.2-5.4 [facility] Comment on above: Performed By: #### L 500.4100, L506.1001, L503.0106, L100.0100, L500.4050 ####[facility] [address] [place], [address] RDW SD 43.1 fl Normal 35.1-43.9 [facility] Comment on above: Performed By: #### L 500.4100, L506.1001, L503.0106, L100.0100, L500.4050 ####[facility] [address] [place], [address] WBC (Bld) [#/Vol] 5.0 10*3/uL Normal 4.4-11.0 [facility] Comment on above: Performed By: #### L 500.4100, L506.1001, L503.0106, L100.0100, L500.4050 ####[facility] [address] [place], [address] Calculated very low density lipoprotein (VLDL) cholesterol measurementOrdered By: Deepika Fabian on 03-31-2025 Calculated very low density lipoprotein (VLDL) cholesterol measurement 25 mg/dL 5-40 [facility] Carbon dioxide, total [Moles /volume] in Central venous bloodOrdered By: Deepika Fabian on 03-31-2025 CO2 [Moles/Vol] 26.6 mmol/L 21.0-32.0 [facility] Chloride assayOrdered By: Franco Fabian on 03-31-2025 Chloride [Moles/Vol] 104 mmol/L 98-108 [facility] Comprehensive Metabolic Prof ilon 03-31-2025 Albumin [Mass/Vol] 4.0 g/dL Normal 3.4-4.8 [facility] Comment on above: Performed By: #### L 500.4100, L506.1001, L503.0106, L100.0100, L500.4050 ####[facility] [address] [place], [address] Albumin/Globulin [Mass ratio] 1.4 {ratio} Normal 0.9-2.4 [facility] Comment on above: Performed By: #### L 500.4100, L506.1001, L503.0106, L100.0100, L500.4050 ####[facility] [address] [place], [address] ALK PHOS 80 U/L Normal 35-104 [facility] Comment on above: Performed By: #### L 500.4100, L506.1001, L503.0106, L100.0100, L500.4050 ####[facility] [address] [place], [address] ALT [Catalytic activity/Vol] 20 U/L Normal <=34 [facility] Comment on above: Performed By: #### L 500.4100, L506.1001, L503.0106, L100.0100, L500.4050 ####[facility] [address] [place], [address] AST [Catalytic activity/Vol] 24 U/L Normal <=31 [facility] Comment on above: Performed By: #### L 500.4100, L506.1001, L503.0106, L100.0100, L500.4050 ####[facility] [address] [place], [address] Bilirubin [Mass/Vol] 0.41 mg/dL Normal 0.00-1.30 [facility] Comment on above: Performed By: #### L 500.4100, L506.1001, L503.0106, L100.0100, L500.4050 ####[facility] [address] [place], [address] BUN/CRE 17.1 RATIO Normal 10-20 [facility] Comment on above: Performed By: #### L 500.4100, L506.1001, L503.0106, L100.0100, L500.4050 ####[facility] [address] [place], [address] Calcium [Mass/Vol] 9.4 mg/dL Normal 7.6-11.0 [facility] Comment on above: Performed By: #### L 500.4100, L506.1001, L503.0106, L100.0100, L500.4050 ####[facility] [address] [place], [address] Chloride [Moles/Vol] 104 mmol/L Normal 98-108 [facility] Comment on above: Performed By: #### L 500.4100, L506.1001, L503.0106, L100.0100, L500.4050 ####[facility] [address] [place], [address] CO2 [Moles/Vol] 26.6 mmol/L Normal 21.0-32.0 [facility] Comment on above: Performed By: #### L 500.4100, L506.1001, L503.0106, L100.0100, L500.4050 ####[facility] [address] [place], [address] Creatinine [Mass/Vol] 0.71 mg/dL Normal 0.70-1.20 [facility] Comment on above: Performed By: #### L 500.4100, L506.1001, L503.0106, L100.0100, L500.4050 ####[facility] [address] [place], [address] GAP 11 Normal 5-15 [facility] Comment on above: Performed By: #### L 500.4100, L506.1001, L503.0106, L100.0100, L500.4050 ####[facility] [address] [place], [address] GFR/1.73 sq M.predicted among non-blacks MDRD (S/P/Bld) [Vol rate/Area] 83 mL/min/{1.73_m2} Normal >60 [facility] Comment on above: Result Comment: mL/m in/1.73m2 CKD-EPI Creatinine Equation (2020) Performed By: #### L 500.4100, L506.1001, L503.0106, L100.0100, L500.4050 ####[facility] [address] [place], [address] Globulin (S) [Mass/Vol] 2.8 g/dL Normal 2.2-4.2 [facility] Comment on above: Performed By: #### L 500.4100, L506.1001, L503.0106, L100.0100, L500.4050 ####[facility] [address] [place], [address] Glucose [Mass/Vol] 89 mg/dL Normal 70-99 [facility] Comment on above: Performed By: #### L 500.4100, L506.1001, L503.0106, L100.0100, L500.4050 ####[facility] [address] [place], [address] Potassium [Moles/Vol] 4.2 mmol/L Normal 3.3-5.1 [facility] Comment on above: Performed By: #### L 500.4100, L506.1001, L503.0106, L100.0100, L500.4050 ####[facility] [address] [place], [address] Sodium [Moles/Vol] 141 mmol/L Normal 133-145 [facility] Comment on above: Performed By: #### L 500.4100, L506.1001, L503.0106, L100.0100, L500.4050 ####[facility] [address] [place], [address] T PROT 6.8 g/dL Normal 5.9-8.4 [facility] Comment on above: Performed By: #### L 500.4100, L506.1001, L503.0106, L100.0100, L500.4050 ####[facility] [address] [place], [address] Urea nitrogen [Mass/Vol] 12 mg/dL Normal 4-19 [facility] Comment on above: Performed By: #### L 500.4100, L506.1001, L503.0106, L100.0100, L500.4050 ####[facility] [address] [place], [address] Eosinophil percentageOrdered By: Deepika Fabian on 03-31-2025 Eosinophils/100 WBC (Bld) 4.4 % 0-5 [facility] Erythrocyte distribution wid th ratioOrdered By: Deepika Fabian on 03-31-2025 Erythrocyte distribution width (RBC) [Ratio] 11.9 % 11.6-14.6 [facility] Erythrocyte distribution wid th standard deviationOrdered By: Deepika Fabian on 03-31-2025 Erythrocyte distribution width (RBC) [Ratio] 43.1 fl 35.1-43.9 [facility] Glomerular filtration rate ( GFR) estimation/1.73 sq m using serum, plasma, or whole bOrdered By: Deepika Fabian on 03-31-2025 GFR/1.73 sq M.predicted among non-blacks MDRD (S/P/Bld) [Vol rate/Area] 83 mL/min/{1.73_m2} >60 [facility] Comment on above: mL/min/1.73m2 CKD-EP I Creatinine Equation (2020) Hematocrit Auto (Bld) [Volum e fraction]Ordered By: Deepika Fabian on 03-31-2025 Hematocrit (Bld) [Volume fraction] 42.4 % 37-47 [facility] Hemoglobin measurementOrdere d By: Deepika Fabian on 03-31-2025 Hemoglobin (Bld) [Mass/Vol] 14.1 g/dL 12.0-15. 0 [facility] Immature granulocytes/100 WB C Auto (Bld)Ordered By: Deepika Fabian on 03-31-2025 Immature granulocytes/100 WBC (Bld) 0.200 % 0.0-0.9 [facility] Comment on above: IG% - Immature Granu locytes (promyelocytes, myelocytes and metamyelocytes) > 1% indicates that a LEFT SHIFT is Present. LDL calc ser/plasOrdered By: Deepika Fabian on 03-31-2025 Cholesterol in LDL [Mass/Vol] 217 mg/dL [facility] Comment on above: Yntmnrrnie=874-800 m g/dL & Higher Shia=248 mg/dL or greater Laboratory - Chemistry and C hemistry - challengeOrdered By: Deepika Fabian on 03-31-2025 AST [Catalytic activity/Vol] 24 U/L <32 [facility] Lipid Profileon 03-31-2025 CHOL:HDL 4.59 Normal [facility] Comment on above: Performed By: #### L 500.4100, L506.1001, L503.0106, L100.0100, L500.4050 ####[facility] [address] [place], [place], [id number] Cholesterol [Mass/Vol] 310 mg/dL High <=200 [facility] Comment on above: Result Comment: Chol esterol level, Desirable <200 mg/dL Borderline high cholesterol 200-239 mg/dL High cholesterol >=240 mg/dL Recommendations of the NCEP Adult Treatment Panel for the following risk-cutoff thresholds for the [place] population. Performed By: #### L 500.4100, L506.1001, L503.0106, L100.0100, L500.4050 ####[facility] [address] [place], [address] Cholesterol in HDL [Mass/Vol] 68 mg/dL Normal [facility] Comment on above: Result Comment: Mikala onal Cholesterol Education Program (NCEP) guidelines: <40 mg/dL: Low HDL-cholesterol (major risk factor for CHD) >= 60 mg/dL: High HDL-cholesterol (negative risk factor for CHD) HDL-cholesterol is affected by a number of factors, e.g. smoking, exercise, hormones, sex and age. Performed By: #### L 500.4100, L506.1001, L503.0106, L100.0100, L500.4050 ####[facility] [address] [place], [address] Cholesterol in LDL [Mass/Vol] 217 mg/dL Normal [facility] Comment on above: Result Comment: Bord xlehyg=750-076 mg/dL Higher Fhht=741 mg/dL or greater Performed By: #### L 500.4100, L506.1001, L503.0106, L100.0100, L500.4050 ####[facility] [address] [place], [address] Cholesterol in VLDL [Mass/Vol] 25 mg/dL Normal 5-40 [facility] Comment on above: Performed By: #### L 500.4100, L506.1001, L503.0106, L100.0100, L500.4050 ####[facility] [address] [place], [address] Triglyceride [Mass/Vol] 126 mg/dL Normal [facility] Comment on above: Result Comment: The drugs N-Acetylcysteine and Metamizole may falsely depress this assay. Normal range: <150 mg/dL Borderline High: 150-199 mg/dL High: 200-499 mg/dL Very High: >500 mg/dL Performed By: #### L 500.4100, L506.1001, L503.0106, L100.0100, L500.4050 ####[facility] [address] [place], [address] MCV (mean corpuscular volume ) determinationOrdered By: Deepika Fabian on 03-31-2025 MCV (RBC) [Entitic vol] 97.5 fL 81-99 [facility] Mean corpuscular hemoglobin (MCH) determinationOrdered By: Deepika Fabian on 03-31-2025 MCH (RBC) [Entitic mass] 32.4 pg High 27.0-32.0 [facility] Mean corpuscular hemoglobin concentration (MCHC) determinationOrdered By: Deepika Fabian on 03-31-2025 MCHC (RBC) [Mass/Vol] 33.3 g/dL 32-36 [facility] Mean platelet volume determi nationOrdered By: Deepika Fabian on 03-31-2025 Platelet mean volume (Bld) [Entitic vol] 11.7 fL 6.2-12.0 [facility] Monocyte percentageOrdered B y: Deepkia Fabian on 03-31-2025 Monocytes/100 WBC (Bld) 8.5 % 0-10 [facility] Neutrophil percentageOrdered By: Deepika Fabian on 03-31-2025 Neutrophils/100 WBC (Bld) 57.4 % 47-70 [facility] Nucleated red blood cell per centageOrdered By: Deepika Fabian on 03-31-2025 Nucleated RBC/100 WBC (Bld) [Ratio] 0 % 0-5 [facility] Platelet countOrdered By: Franco Fabian on 03-31-2025 Platelets (Bld) [#/Vol] 261 10*3/uL 150-450 [facility] Potassium measurement (mass/ volume)Ordered By: Deepika Fabian on 03-31-2025 Potassium (Unsp spec) [Mass/Vol] 4.2 mmol/L 3.3-5.1 [facility] RBC Auto (Bld) [#/Vol]Ordere d By: Deepika Fabian on 03-31-2025 RBC (Bld) [#/Vol] 4.35 10*6/uL 4.2-5.4 [facility] Screening total cholesterol/ high density lipoprotein (HDL) cholesterol ratioOrdered By: Deepika Fabian on 03-31-2025 Cholesterol.total/Cholester ol in HDL [Mass ratio] 4.59 {ratio} [facility] Serum creatinine measurement (mass/volume)Ordered By: Deepika Fabian on 03-31-2025 Creatinine [Mass/Vol] 0.71 mg/dL 0.70-1.20 [facility] Serum globulin measurementOr dered By: Deepika Fabian on 03-31-2025 Globulin (S) [Mass/Vol] 2.8 g/dL 2.2-4.2 [facility] Serum glucose measurement (m ass/volume)Ordered By: Deepika Fabian on 03-31-2025 Glucose [Mass/Vol] 89 mg/dL 70-99 [facility] Serum or plasma alanine hernandez otransferase (ALT) measurementOrdered By: Deepika Fabian on 03-31-2025 ALT [Catalytic activity/Vol] 20 U/L <35 [facility] Serum or plasma albumin alissa urement (mass/volume)Ordered By: Deepika Fabian on 03-31-2025 Albumin [Mass/Vol] 4.0 g/dL 3.4-4.8 [facility] Serum or plasma albumin/glob ulin mass ratioOrdered By: Deepika Fabian on 03-31-2025 Albumin/Globulin [Mass ratio] 1.4 {ratio} 0.9-2.4 [facility] Serum or plasma alkaline [place] sphatase measurementOrdered By: Deepika Fabian on 03-31-2025 ALP [Catalytic activity/Vol] 80 U/L 35-104 [facility] Serum or plasma calcium alissa urement (mass/volume)Ordered By: Deepika Fabian on 03-31-2025 Calcium [Mass/Vol] 9.4 mg/dL 7.6-11.0 [facility] Serum or plasma cholesterol in HDL measurement (mass/volume)Ordered By: Deepika Fabian on 03-31-2025 Cholesterol in HDL [Mass/Vol] 68 mg/dL >40 [facility] Comment on above: National Cholesterol Education Program (NCEP) guidelines:<40 mg/dL: Low HDL-cholesterol (major risk factor for CHD)>= 60 mg/dL: High HDL-cholesterol (negative risk factor for CHD)HDL-cholesterol is affected by a number of factors, e.g. smoking, exercise, hormones, sex and age. Serum or plasma cholesterol measurement (mass/volume)Ordered By: Deepika Fabian on 03-31-2025 Cholesterol [Mass/Vol] 310 mg/dL High <201 [facility] Comment on above: Cholesterol level, D esirable <200 mg/dLBorderline high cholesterol 200-239 mg/dLHigh cholesterol >=240 mg/dLRecommendations of the NCEP Adult Treatment Panel for the following risk-cutoff thresholds for the [place] population. Serum or plasma urea nitroge n measurement (mass/volume)Ordered By: Deepika Fabian on 03-31-2025 Urea nitrogen [Mass/Vol] 12 mg/dL 4-19 [facility] Sodium levelOrdered By: Wayne Fabian on 03-31-2025 Sodium [Moles/Vol] 141 mmol/L 133-145 [facility] Total proteinOrdered By: Ray Fabian on 03-31-2025 Protein [Mass/Vol] 6.8 g/dL 5.9-8.4 [facility] Triglycerides measurementOrd ered By: Deepika Fabian on 03-31-2025 Triglyceride [Mass/Vol] 126 mg/dL <199 [facility] Comment on above: The drugs N-Acetylcy steine and Metamizole may falsely depress this assay. Normal range: <150 mg/dLBorderline High: 150-199 mg/dLHigh: 200-499 mg/dLVery High: >500 mg/dL Vitamin B12on 03-31-2025 Cobalamin (Vitamin B12) [Mass/Vol] 1784 pg/mL High 180-914 [facility] Comment on above: Performed By: #### L 500.4100, L506.1001, L503.0106, L100.0100, L500.4050 ####[facility] [address] [place], [place], [address] Vitamin B12 ser/plasOrdered By: Deepika Fabian on 03-31-2025 Cobalamin (Vitamin B12) [Mass/Vol] 1784 pg/mL High 180-914 [facility] Vitamin D,25 Hydroxyon 03-31 Vitamin D 25-OH 34.7 ng/mL Normal 30-100 [facility] Comment on above: Result Comment: Kasandra min D Status Deficiency: <20 ng/mL (50nmol/L) Insufficiency: 20-30 ng/mL (50-75 nmol/L) Sufficiency: 30-100 ng/mL (75-250 nmol/L) Toxicity: >100 ng/mL (>250 nmol/L) Performed By: #### L 500.4100, L506.1001, L503.0106, L100.0100, L500.4050 ####[facility] [id number] [place], [address] White blood cell (WBC) count Ordered By: Deepika Fabian on 03-31-2025 WBC (Bld) [#/Vol] 5.0 10*3/uL 4.4-11.0 [facility] Internal Medicine Office Vis iton 03-30-2025 Internal Medicine Office Visit [facility] [address] [place] [address] [address] [place], [place] [address] OFFICE VISIT Date of Service: 03/31/25 MR#: [id number] Acct: [id number] Name: DEA MERRITT Rep #: [id number] : 1935 Provider: Dr. 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 Required: No Accompanied by: Self Is patient in pain?: No Allergies clindamycin Allergy (Verified 03/31/25 08:10) Other hyoscyamine Allergy (Verified 03/31/25 08:10) Other Penicillins Allergy (Verified 03/31/25 08:10) Hives Aydaapf-XFS-ScB Reductase Inhibitor (Swrurrc-Rgy-Spo Reductase Inhibitor) Allergy (Verified 03/31/25 08:10) Pain in joints nitrofurantoin (From Macrobid) Adverse Reaction (Mild, Verified 03/31/25 08:10) altered mental status glucosamine Adverse Reaction (Verified 03/31/25 08:10) Other Medications ???Medication ???Instructions ???Recorded ???Confirmed ???Type fluorometholone 0.1 % eye 1 drp ophthalmic (eye) BID PRN Dry 03/02/22 03/31/25 History drops,suspension Eyes cyanocobalamin (vitamin B-12) 1,000 mcg PO DAILY vitamin 3 03/31/25 History 1,000 mcg tablet ferrous sulfate 325 mg (65 mg 325 mg PO DAILY supplement 3 03/31/25 History iron) tablet (Feosol) lorazepam 0.5 mg tablet 0.25 mg (1/2 x 0.5 mg) PO PRN PRN 10/18/23 03/31/25 Rx anxiety #10 tabs handicap placard #1 ea 01/23/24 03/31/25 Rx cholecalciferol (vitamin D3) 25 2,000 unit PO DAILY vitamin 03/31/25 History mcg (1,000 unit) tablet rivaroxaban 20 mg tablet (Xarelto) 20 mg PO QPM blood thinner #90 t abs 11/20/24 03/31/25 Rx losartan 100 mg tablet 100 mg PO DAILY blood pressure #90 01/14/25 03/31/25 Rx tabs carvedilol 3.125 mg tablet (Coreg) 3.125 mg PO BID #180 tabs 03/31/25 Rx Have you fallen in the past year?: No Nurse's Note: some pain in stomach but not severe typically post eating [facility] Medical History Cellulitis of mid back region Abrasion of right upper back excluding scapular region Longstanding persistent atrial fibrillation Arthritis involving multiple sites Essential hypertension CVA (cerebral vascular accident) (02/15/22) Anxiety GERD (gastroesophageal reflux disease) HLD (hyperlipidemia) Surgical History Cataract extraction status Family History Father Diabetes Hyperlipemia Mother Cancer stomach Brother Parkinson's disease Social History (Updated 03/31/25 @ 08:[address] 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 1. Little interest or pleasure in doing things: not at all 2. Feeling down, depressed, or hopeless: several days 3. Trouble falling or staying asleep, or sleeping too much: several days 4. Feeling tired or having little energy: several days 5. Poor appetite or overeating: not at all 6. Feeling bad about yourself - or that you are a failure or have let yourself and your family down: not at all 7. Trouble concentrating on things, such as reading the newspaper or watching television: not at all 8. Moving or speaking so slowly that other people could have noticed? - Or the opposite - being so fidgety or restless that you have been moving around a lot more than usual: not at all 9. Thoughts that you would be better off or of hurting yourself in some way: not at all Total score: 3 If you checked off any problems, how difficult have these problems made it for you to do your work, take care of things at home, or get along with other people?: not difficult at all Source: Developed by Drs. Rudy Araujo, Susie Nuñez, Michel Bueno and colleagues, with an educational sadie from [employer]. COLIN-7 BMS COLIN-7 Feeling nervous, anxious, or on edge: 0 = Not at all Not bein (more content not included)... Normal [facility] Urine Cultureon 02-01-2025 URC Mixed Gram Pos Gram Neg Org [place] Count 11,000-25,000 MIXC Mixed contaminants. Submit a new specimen if indicated. Normal [facility] Comment on above: Performed By: #### M 100.2200, L400.0001 #### [facility] [address] [place], [address] Urinalysis, Completeon 01-29 EPI,SQUAMOUS 0-5 SEEN Normal 5-10 [facility] Comment on above: Order Comment: CLEAN CATCH Performed By: #### M 100.2200, L400.0001 #### [facility] [address] [place], [place], [address] Bilirubin Test strip Ql (U)O rdered By: Deepika Fabian on 01-28-2025 Bilirubin Ql (U) Negative Negative [facility] Cardiology Visit Reporton Cardiology Visit Report [facility] [address] [place], [place] [address] OFFICE VISIT Date of Service: 01/28/25 MR#: [id number] Acct: [id number] Name: DEA MERRITT Rep #: [id number] : 1935 Provider: GINA Guevara Age/Sex: 89/F Location: [facility] [place] Status: Signed HPI HPI History of Present Illness Details: Dea Merritt is an 89-year-old lady with a history of hypertension hyperlipidemia intolerant of any statins and gastroesophageal reflux disease. She presented to [facility] with left facial droop and confusion on February 15, 2022. She apparently attended christianity and then drove home around 1 PM and was driving erratically. Her neighbors drove her home and then she was brought to the emergency room. CT scan of the brain was negative for acute changes she was sent to [facility] with CT angiogram of the head and neck showed a right MCA subtotally occluded thrombus. In the ER the atrial fibrillation was noted. She was deemed not to be a candidate for mechanical thrombectomy and was placed on anticoagulation and advised for secondary stroke risk reduction with her lipids but she has not been able to tolerate this due to liver function test abnormalities. Pt is here today for an increase in dizziness. This as since resolved. She did see her chiropractor and he did give her an adjustments and gave her a supplement. Her dizziness had the room spinning. Her Bp has been okay. She did see her PCP today and is being working up for a UTI. CCN does come in once a week. Intake Vital Signs 11/13/24 15:20 01/28/25 07:43 01/28/25 10:12 01/28/25 13:56 Height 5 ft 5 ft 5 ft 5 ft Weight: 107 lb 109 lb BMI 20.9 21.2 BP 120/80 121/75 H Blood Pressure Location Lt brachial Rt brachial Position Sitting Sitting Respiration 16 18 Pulse 66 70 Pulse Source Monitor Monitor Temp 97.9 F Pulse Oximetry (%) 97 97 Oxygen Delivery Method room air Intake Visit Reasons: Dizziness/More Frequent Urination Small Products I Assembler Required: No Is patient in pain?: No Allergies clindamycin Allergy (Verified 01/28/25 13:57) Other hyoscyamine Allergy (Verified 01/28/25 13:57) Other Penicillins Allergy (Verified 01/28/25 13:57) Hives Lglfiry-JVR-CaH Reductase Inhibitor (Aeuswra-Xbu-Dlb Reductase Inhibitor) Allergy (Verified 01/28/25 13:57) Pain in joints nitrofurantoin (From Macrobid) Adverse Reaction (Mild, Verified 01/28/25 13:57) altered mental status glucosamine Adverse Reaction (Verified 01/28/25 13:57) Other Medications ???Medication ???Instructions ???Recorded ???Confirmed ???Type fluorometholone 0.1 % eye 1 drp ophthalmic (eye) BID PRN Dry 03/02/22 01/28/25 History drops,suspension Eyes cyanocobalamin (vitamin B-12) 1,000 mcg PO DAILY vitamin 3 01/28/25 History 1,000 mcg tablet ferrous sulfate 325 mg (65 mg 325 mg PO DAILY supplement 3 01/28/25 History iron) tablet (Feosol) lorazepam 0.5 mg tablet 0.25 mg (1/2 x 0.5 mg) PO PRN PRN 10/18/23 01/28/25 Rx anxiety #10 tabs handicap placard #1 ea 01/23/24 01/28/25 Rx cholecalciferol (vitamin D3) 25 2,000 unit PO DAILY vitamin 01/28/25 History mcg (1,000 unit) tablet rivaroxaban 20 mg tablet (Xarelto) 20 mg PO QPM blood thinner #90 t abs 11/20/24 01/28/25 Rx losartan 100 mg tablet 100 mg PO DAILY blood pressure #90 01/14/25 01/28/25 Rx tabs carvedilol 3.125 mg tablet (Coreg) 3.125 mg PO BID #180 tabs 01/28/25 Rx Ejection fraction %: 65 Have you fallen in the past year?: No Nurse's Note: medications were checked at dr. Patton office this am per daughter [facility] Medical History (Updated 01/28/25 @ 12:[address] 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 Normal [facility] Epithelial cells.squamous LM Ql (Urine sed)Ordered By: Deepika Fabian on 01-28-2025 Epithelial cells.squamous LM.HPF (Urine sed) [#/Area] 0 /[HPF] 5-10 [facility] Glucose Ql (U)Ordered By: Franco Fabian on 01-28-2025 Urine Glucose (UA) Normal mg/dl Normal [facility] Ketones Test strip Ql (U)Ord ered By: Deepika Fabian on 01-28-2025 Ketones Ql (U) Negative Negative [facility] Microscopic analysis of urin e for red blood cells (RBC)Ordered By: Deepika Fabian on 01-28-2025 Microscopic analysis of urine for red blood cells (RBC) 0 SEEN /hpf 0-5 [facility] Urine RBC 0 SEEN /hpf 0-5 [facility] Mucus LM Ql (Urine sed)Order ed By: Deepika Fabian on 01-28-2025 Mucus Ql (Urine sed) 0 SEEN /hpf [facility] Nitrite Test strip Ql (U)Ord ered By: Deepika Fabian on 01-28-2025 Nitrite Ql (U) Negative Negative [facility] Protein Test strip Ql (U)Ord ered By: Deepika Fabian on 01-28-2025 Protein Ql (U) Negative Negative [facility] Squamous epithelial cells de tection in urine sediment by light microscopyOrdered By: Deepika Fabian on 01-28-2025 Epithelial cells.squamous LM Ql (Urine sed) 0-5 SEEN /hpf 5-10 [facility] Urinalysis, Completeon 01-28 BACTERIA 0 SEEN Normal None Seen [facility] Comment on above: Order Comment: CLEAN CATCH Performed By: #### M 100.2200, L400.0001 #### [facility] [address] [place], [address] Mucus Ql (Urine sed) 0 SEEN Normal [facility] Comment on above: Order Comment: CLEAN CATCH Performed By: #### M 100.2200, L400.0001 #### [facility] [address] [place], [address] RBC 0 SEEN Normal 0-5 [facility] Comment on above: Order Comment: CLEAN CATCH Performed By: #### M 100.2200, L400.0001 #### [facility] [address] [place], [address] WBC 0 SEEN Normal 0-5 [facility] Comment on above: Order Comment: CLEAN CATCH Performed By: #### M 100.2200, L400.0001 #### [facility] [address] [place], [address] Urine blood detectionOrdered By: Deepika Fabian on 01-28-2025 Urine Occult Blood Negative Negative [facility] Urine clarityOrdered By: Ray Fabian on 01-28-2025 Clarity (U) Clear Clear [facility] Urine color determinationOrd ered By: Deepika Fabian on 01-28-2025 Color (U) Yellow Yellow [facility] Urine cultureOrdered By: Ray Fabian on 01-28-2025 Bacteria identified Cx Nom (U) Mixed Gram Pos & Gram Neg Org Abnormal [facility] Urine glucose detectionOrder ed By: Deepika Fabian on 01-28-2025 Glucose Ql (U) Normal mg/dl Normal [facility] Urine leukocyte esterase det ection by dipstickOrdered By: Deepika Fabian on 01-28-2025 Leukocyte esterase Test strip Ql (U) Negative Negative [facility] Urine pHOrdered By: Deepika morrow on 01-28-2025 pH (U) 8.0 [pH] 5.0 - 8.0 [facility] Urine sediment bacteria coun t by microscopy (number/high power field)Ordered By: Deepika Fabian on 01-28-2025 Bacteria LM.HPF (Urine sed) [#/Area] 0 /[HPF] None Seen [facility] Urine specific gravity measu rementOrdered By: Deepika Fabian on 01-28-2025 Specific gravity (U) [Rel density] 1.010 1.002-1.03 0 [facility] Urine urobilinogen measureme ntOrdered By: Deepika Fabian on 01-28-2025 Urobilinogen Ql (U) Normal mg/dl Normal [facility] Urobilinogen Ql (U)Ordered B y: Deepikamargi Fabian on 01-28-2025 Urine Urobilinogen Normal mg/dl Normal [facility] White blood cell countOrdere d By: Deepika Fabian on 01-28-2025 Urine WBC 0 SEEN /hpf 0-5 [facility] White blood cell count 0 SEEN /hpf 0-5 [facility] Internal Medicine Office Vis iton 01-27-2025 Internal Medicine Office Visit [facility] [address] [place] [address] OFFICE VISIT Date of Service: 01/28/25 MR#: [id number] Acct: [id number] Name: DEA MERRITT Rep #: [id number] : 1935 Provider: Dr. Deepika goff MD Age/Sex: 89/F Location: [facility] [place] [facility] Status: Signed Intake Vital Signs 11/13/24 15:20 01/28/25 07:43 01/28/25 10:12 Height 5 ft 5 ft 5 ft Weight: 107 lb BMI 20.9 BP 120/80 Blood Pressure Location Lt brachial Position Sitting Respiration 16 Pulse 66 Pulse Source Monitor Temp 97.9 F Temp Source Temporal Pulse Oximetry (%) 97 Oxygen Delivery Method room air Intake Visit Reasons: FREQUENT URINATION/DIZZINESS Chief Complaint: Small Products I Assembler Required: No Accompanied by: Daughter Allergies clindamycin Allergy (Verified 01/28/25 09:59) Other hyoscyamine Allergy (Verified 01/28/25 09:59) Other Penicillins Allergy (Verified 01/28/25 09:59) Hives Zihgjwd-RAK-GsT Reductase Inhibitor (Kuvxlft-Yqp-Uag Reductase Inhibitor) Allergy (Verified 01/28/25 09:59) Pain in joints nitrofurantoin (From Macrobid) Adverse Reaction (Mild, Verified 01/28/25 09:59) altered mental status glucosamine Adverse Reaction (Verified 01/28/25 09:59) Other Medications ???Medication ???Instructions ???Recorded ???Confirmed ???Type fluorometholone 0.1 % eye 1 drp ophthalmic (eye) BID PRN Dry 03/02/22 01/28/25 History drops,suspension Eyes cyanocobalamin (vitamin B-12) 1,000 mcg PO DAILY vitamin 3 01/28/25 History 1,000 mcg tablet ferrous sulfate 325 mg (65 mg 325 mg PO DAILY supplement 3 01/28/25 History iron) tablet (Feosol) lorazepam 0.5 mg tablet 0.25 mg (1/2 x 0.5 mg) PO PRN PRN 10/18/23 01/28/25 Rx anxiety #10 tabs handicap placard #1 ea 01/23/24 01/28/25 Rx cholecalciferol (vitamin D3) 25 2,000 unit PO DAILY vitamin 01/28/25 History mcg (1,000 unit) tablet carvedilol 3.125 mg tablet (Coreg) 3.125 mg PO BID #60 tabs 5 01/28/25 Rx rivaroxaban 20 mg tablet (Xarelto) 20 mg PO QPM blood thinner #90 t abs 11/20/24 01/28/25 Rx losartan 100 mg tablet 100 mg PO DAILY blood pressure #90 01/14/25 01/28/25 Rx tabs Have you fallen in the past year?: No Nurse's Note: About 10 days ago she started w/ dizziness which seemed to help get better after going to the chiropractor. Also c/o urinary frequency and urgency, hesitancy, and having to work and focus to urinate since then, is experiencing urinary incontinence due to this and has had this issue w/ uti's in the past. Denies, cloudiness,burning,hem aturia, low back pain, pelvic pressure painful urination or odors to it. Has been pushing water. She does states there is a little less urine than normal. Pt was having post nasal drip and drainage 2.5mg a 1/2 of 5mg levocetirizine was given and helped w/ allergies dizziness came on a few days after that but allergy sx's disappeared. Dc'd the levocetirizine due to possible dizziness but it did not make a difference. Wants to make sure it is okay to restart it. [facility] Medical History (Updated 01/28/25 @ 12:[address] 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 She has concerns about urinary frequency and dizziness. She reports that her symptoms started about 10 days ago. Her daughter reports she has been complaining of urinary incontinence and an increase in dizzy spells over that time period. Family does think she has been a little more confused recently as well. She denies any dysuria or fevers. She has been drinking plenty of water. The patient reports she saw her chiropractor recently for the dizziness a (more content not included)... Normal [facility] Cardiology Visit Reporton Cardiology Visit Report [facility] [address] [place] [address] OFFICE VISIT Date of Service: 11/13/24 MR#: [id number] Acct: [id number] Name: DEA MERRITT Rep #: [id number] : 1935 Provider: GINA Guevara Age/Sex: 89/F Location: [facility] [place] Status: Signed HPI HPI History of Present Illness Details: Dea Merritt is an 89-year-old lady with a history of hypertension hyperlipidemia intolerant of any statins and gastroesophageal reflux disease. She presented to [facility] with left facial droop and confusion on February 15, 2022. She apparently attended christianity and then drove home around 1 PM and was driving erratically. Her neighbors drove her home and then she was brought to the emergency room. CT scan of the brain was negative for acute changes she was sent to [facility] with CT angiogram of the head and neck showed a right MCA subtotally occluded thrombus. In the ER the atrial fibrillation was noted. She was deemed not to be a candidate for mechanical thrombectomy and was placed on anticoagulation and advised for secondary stroke risk reduction with her lipids but she has not been able to tolerate this due to liver function test abnormalities. She did have one episode of chest pain. she does not have any worsening SOB. She does not have any palpitations that she is aware of. She does have flucations of her BP. She does not any lightheadedness/dizzin ess. She does not have any edema. CCN does come in once a week. Intake Vital Signs 11/13/23 13:57 11/13/24 09:58 11/13/24 15:18 11/13/24 15:20 Height 5 ft 1 in 5 ft 5 ft 5 ft Weight: 110 lb BMI 21.4 BP 155/71 H 130/70 H Blood Pressure Location Lt brachial Position Sitting Respiration 18 Pulse 69 Pulse Source Monitor Pulse Oximetry (%) 95 Intake Visit Reasons: 1 Y FU Small Products I Assembler Required: No Is patient in pain?: No Allergies clindamycin Allergy (Verified 11/13/24 15:18) Other hyoscyamine Allergy (Verified 11/13/24 15:18) Other Penicillins Allergy (Verified 11/13/24 15:18) Hives Vlsrvdo-YNM-DpZ Reductase Inhibitor (Lpbcxzg-Ylf-Dqz Reductase Inhibitor) Allergy (Verified 11/13/24 15:18) Pain in joints nitrofurantoin (From Macrobid) Adverse Reaction (Mild, Verified 11/13/24 15:18) altered mental status glucosamine Adverse Reaction (Verified 11/13/24 15:18) Other Medications ???Medication ???Instructions ???Recorded ???Confirmed ???Type fluorometholone 0.1 % eye 1 drp ophthalmic (eye) BID PRN Dry 03/02/22 11/13/24 History drops,suspension Eyes cyanocobalamin (vitamin B-12) 1,000 mcg PO DAILY vitamin 3 11/13/24 History 1,000 mcg tablet ferrous sulfate 325 mg (65 mg 325 mg PO DAILY supplement 3 11/13/24 History iron) tablet (Feosol) lorazepam 0.5 mg tablet 0.25 mg (1/2 x 0.5 mg) PO PRN PRN 10/18/23 11/13/24 Rx anxiety #10 tabs rivaroxaban 20 mg tablet (Xarelto) 20 mg PO QPM blood thinner #90 t abs 11/13/23 11/13/24 Rx handicap placard #1 ea 01/23/24 11/13/24 Rx cholecalciferol (vitamin D3) 25 2,000 unit PO DAILY vitamin 11/13/24 History mcg (1,000 unit) tablet losartan 100 mg tablet 100 mg PO DAILY blood pressure #90 10/24/24 11/13/24 Rx tabs carvedilol 3.125 mg tablet (Coreg) 3.125 mg PO BID #60 tabs 5 11/13/24 Rx Have you fallen in the past year?: No Nurse's Note: no medication list, states no changes [facility] Medical History Cellulitis of mid back region Abrasion of right upper back excluding scapular region Longstanding persistent atrial fibrillation Arthritis involving multiple sites Essential hypertension CVA (cerebral vascular accident) (02/15/22) Anxiety GERD (gastroesophageal reflux disease) HLD (hyperlipidemia) Surgical History Cataract extraction status Family History Father Diabetes Hyperlipemia Mother Cancer stomach Brother Parkinson's disease Social History household members: none 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 occupational status: 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 Normal [facility] Internal Medicine Office Vis iton 11-12-2024 Internal Medicine Office Visit [facility] [address] [place] [address] OFFICE VISIT Date of Service: 11/13/24 MR#: [id number] Acct: [id number] Name: DEA MERRITT Rep #: [id number] : 1935 Provider: Dr. Deepika goff MD Age/Sex: 89/F Location: [facility] [place] Status: Signed Intake Vital Signs 08/05/24 10:26 11/13/24 09:58 Height 5 ft 5 ft Weight: 111 lb BMI 21.7 BP 104/58 L Blood Pressure Location Rt brachial Position Sitting Respiration 16 Pulse 60 Pulse Source Palpation Temp 96.3 F L Temp Source Temporal Intake Visit Reasons: 4 M FU Chief Complaint: 3 M Fu Small Products I Assembler Required: No Accompanied by: Self Is patient in pain?: No Allergies clindamycin Allergy (Verified 11/13/24 09:51) Other hyoscyamine Allergy (Verified 11/13/24 09:51) Other Penicillins Allergy (Verified 11/13/24 09:51) Hives Zlxygxk-KCR-YaJ Reductase Inhibitor (Sqcwqre-Kup-Kyt Reductase Inhibitor) Allergy (Verified 11/13/24 09:51) Pain in joints nitrofurantoin (From Macrobid) Adverse Reaction (Mild, Verified 11/13/24 09:51) altered mental status glucosamine Adverse Reaction (Verified 11/13/24 09:51) Other Medications ???Medication ???Instructions ???Recorded ???Confirmed ???Type fluorometholone 0.1 % eye 1 drp ophthalmic (eye) BID PRN Dry 03/02/22 11/13/24 History drops,suspension Eyes cyanocobalamin (vitamin B-12) 1,000 mcg PO DAILY vitamin 3 11/13/24 History 1,000 mcg tablet ferrous sulfate 325 mg (65 mg 325 mg PO DAILY supplement 3 11/13/24 History iron) tablet (Feosol) lorazepam 0.5 mg tablet 0.25 mg (1/2 x 0.5 mg) PO PRN PRN 10/18/23 11/13/24 Rx anxiety #10 tabs rivaroxaban 20 mg tablet (Xarelto) 20 mg PO QPM blood thinner #90 t abs 11/13/23 11/13/24 Rx handicap placard #1 ea 01/23/24 11/13/24 Rx cholecalciferol (vitamin D3) 25 2,000 unit PO DAILY vitamin 11/13/24 History mcg (1,000 unit) tablet losartan 100 mg tablet 100 mg PO DAILY blood pressure #90 10/24/24 11/13/24 Rx tabs metoprolol tartrate 50 mg tablet 50 mg PO BID 11/13/24 11/13/24 His tory Have you fallen in the past year?: No Nurse's Note: working with chiropractor on excercises [facility] Medical History Cellulitis of mid back region Abrasion of right upper back excluding scapular region Longstanding persistent atrial fibrillation Arthritis involving multiple sites Essential hypertension CVA (cerebral vascular accident) (02/15/22) Anxiety GERD (gastroesophageal reflux disease) HLD (hyperlipidemia) Surgical History Cataract extraction status Family History Father Diabetes Hyperlipemia Mother Cancer stomach Brother Parkinson's disease Social History household members: none 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 The patient is up to date on her routine blood work.??? She isn't due for any further screening. She isn't due for any immunizations.??? The patient is eating healthy and her activity level is improving. She reports her chiropractor showed her how to get up properly and states just that has made her feel better. She doesn't smoke and does need refills today. She has a nurse who checks her blood pressure once a week and she has also been monitoring it. They have provided some home readings for review. They report when she is up and moving around, her blood pressure can be in the 150s/80s, however, after sitting around for a while, her blood pressure will drop down to as low as the 100s/60s. She hasn't had any dizziness with standing recently. The patient's metoprolol dose was increased on 09/24 due to elevated readings, and further on 09/30 for the same. Her daughter questions if it is too much. She is taking all of her medications as prescribed for the most part. Her daughter reports she will rarely forget her evening dose. She does try to monitor her salt intake. The patient continues to have urinary frequency. Her daughter reports she is going around once an hour, but is drinking plenty of water. She denies any accidents. She does not feel that she is ret aining any urine. Her daughter doesn't feel (more content not included)... Normal [facility] Abdomen/Pelvis WITH Contrast on 08-05-2024 Abdomen/Pelvis WITH Contrast [facility] Imaging Services [address] [place] [address] Abdomen/Pelvis WITH Contrast MR#: [id number] Acct: [id number] Name: DEA MERRITT Rep #: [id number] : 1935 F 88 From: Waylon tate MD PCP: Dr. Deepika Fabian MD Status: REG CLI Study: Abdomen/Pelvis WITH Contrast Date of Exam: Exam# [id number] Ordering Dr: Jb Wood DO [id number] STUDY: CT ABDOMEN AND PELVIS WITH CONTRAST REASON FOR EXAM: Female, 88 years old. Diverticulitis RADIATION DOSAGE (If Supplied By Facility): CTDIvol = ( 18.71 ) mGy, DLP = ( 482.06 ) mGycm TECHNIQUE: Transaxial images were obtained from the dome of the diaphragm to the symphysis pubis without oral contrast. IV 100mL Isovue-300 was administered. Sagittal and coronal images were reconstructed. Individualized dose optimization techniques were used for this CT. COMPARISON: Comparison is made with prior study dated November 10, 2022. FINDINGS: Minimal increased linear markings at the lung bases suggestive of scarring. Coronary artery calcification. Normal liver. Status post cholecystectomy. Normal spleen. Normal pancreas. Normal bilateral adrenal glands. There is a 1.6 cm cyst in the mid lateral portion of the right kidney. Normal left kidney. Normal visualized stomach. Normal small intestine. There are multiple colonic diverticula consistent with diverticulosis. There is non-visualization of the appendix. There is diffuse atherosclerotic calcification of the abdominal aorta and its major visceral branches, without a demonstrated aneurysm. Normal inferior vena cava. Normal retroperitoneum. Normal urinary bladder. The uterus is atrophied. Normal abdominal wall. There are diffuse degenerative changes of the visualized lumbar spine. Stable loss of height of the superior endplate of the L1 vertebrae. CT/Abdomen/Pelvis WITH Contrast IMPRESSION: Sigmoid diverticulosis. No radiographic evidence of diverticulitis. Electronically Signed: Waylon Samayoa MD at 14:03 EDT , CC: Dr. Deepika Fabian MD; Jb Wood, Floor Covering Printer: Signed Normal [facility] CREATININE FINGERSTICKon CREATININE WB < 1.0 Normal 0.55-1.02 [facility] Comment on above: Performed By: #### L 9100.0200 #### [facility] [address] [place], [address] EGFR WB > 60.0000 Normal >60 [facility] Comment on above: Performed By: #### L 9100.0200 #### [facility] [address] [place], [address] Ferritinon 08-05-2024 Ferritin [Mass/Vol] 71 ng/mL Normal 8-252 [facility] Comment on above: Performed By: #### L 503.6550, L503.6030, L506.1000, L503.0105 ####[facility] [id number] [place], [address] Iron+Iron Binding Capacityon 08-05-2024 Iron [Mass/Vol] 79 ug/dL Normal 50-170 [facility] Comment on above: Performed By: #### L 503.6550, L503.6030, L506.1000, L503.0105 ####[facility] [id number] [place], [address] IRON SATURATION 27.7 Normal 15.0-55.0 [facility] Comment on above: Performed By: #### L 503.6550, L503.6030, L506.1000, L503.0105 ####[facility] [id number] [place], [address] TIBC 285 ug/dL Normal 250-450 [facility] Comment on above: Performed By: #### L 503.6550, L503.6030, L506.1000, L503.0105 ####[facility] [id number] [place], [address] Vitamin B12on 08-05-2024 Cobalamin (Vitamin B12) [Mass/Vol] 567 pg/mL Normal 211-911 [facility] Comment on above: Performed By: #### M 100.2200, L400.0001 #### [facility] [address] [place], [address] Vitamin D,25 Hydroxyon 08-05 Vitamin D 25-OH 20.4 ng/mL Normal [facility] Comment on above: Result Comment: Kasandra min D 25(OH) Status Range Deficiency <20 ng/mL (50nmol/L) Insufficiency 20 - 30 ng/mL (50 - 75 nmol/L) Sufficiency 30 - 100 ng/mL (75 - 250 nmol/L) Toxicity >100 ng/mL (>250 nmol/L) Performed By: #### M 100.2200, L400.0001 #### [facility] [address] [place], [address] Internal Medicine Office Vis linda 08-04-2024 Internal Medicine Office Visit [facility] [address] [place] [address] [place] [address] OFFICE VISIT Date of Service: 08/05/24 MR#: [id number] Acct: [id number] Name: DEA MERRITT Rep #: [id number] : 1935 Provider: Dr. Deepika goff MD Age/Sex: 88/F Location: [facility] [place] Status: Signed Intake Vital Signs 04/22/24 08:33 08/05/24 10:26 Height 5 ft 5 ft Weight: 109 lb BMI 21.2 BP 128/66 H Blood Pressure Location Lt brachial Position Sitting Respiration 16 Pulse 70 Pulse Source Monitor Temp 97.4 F L Temp Source Temporal Pulse Oximetry (%) 97 Oxygen Delivery Method room air Intake Visit Reasons: 3 M FU Chief Complaint: 3 M Fu Is patient in pain?: No Allergies clindamycin Allergy (Verified 08/05/24 10:22) Other hyoscyamine Allergy (Verified 08/05/24 10:22) Other Penicillins Allergy (Verified 08/05/24 10:22) Hives Fxfksep-DUQ-XoD Reductase Inhibitor (Yaociev-Gvp-Pne Reductase Inhibitor) Allergy (Verified 08/05/24 10:22) Pain in joints nitrofurantoin (From Macrobid) Adverse Reaction (Mild, Verified 08/05/24 10:22) altered mental status glucosamine Adverse Reaction (Verified 08/05/24 10:22) Other Medications ???Medication ???Instructions ???Recorded ???Confirmed ???Type fluorometholone 0.1 % eye 1 drp ophthalmic (eye) BID PRN Dry 03/02/22 08/05/24 History drops,suspension Eyes cholecalciferol (vitamin D3) 25 25 mcg PO DAILY vitamin 05/08/23 08/05/24 History mcg (1,000 unit) tablet cyanocobalamin (vitamin B-12) 1,000 mcg PO DAILY vitamin 05/08/23 08/05/24 History 1,000 mcg tablet ferrous sulfate 325 mg (65 mg 325 mg PO DAILY supplement 05/08/23 08/05/24 History iron) tablet (Feosol) lorazepam 0.5 mg tablet 0.25 mg (1/2 x 0.5 mg) PO PRN PRN 10/18/23 08/05/24 Rx anxiety #10 tabs rivaroxaban 20 mg tablet (Xarelto) 20 mg PO QPM blood thinner #90 tabs 11/13/23 08/05/24 Rx handicap placard #1 ea 01/23/24 08/05/24 Rx losartan 100 mg tablet 100 mg PO DAILY blood pressure #90 07/14/24 08/05/24 Rx tabs budesonide 3 mg 6 mg PO DAILY inflammation 08/05/24 History capsule,delayed,extend ed release metoprolol tartrate 25 mg tablet 25 mg PO BID #180 tabs 08/05/24 08/05/24 Rx Have you fallen in the past year?: Yes (x1) PFSH Medical History Cellulitis of mid back region Abrasion of right upper back excluding scapular region Longstanding persistent atrial fibrillation Arthritis involving multiple sites Essential hypertension CVA (cerebral vascular accident) (02/15/22) Anxiety GERD (gastroesophageal reflux disease) HLD (hyperlipidemia) Surgical History Cataract extraction status Family History Father Diabetes Hyperlipemia Mother Cancer stomach Brother Parkinson's disease Social History household members: none current occupational status: 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 The patient is up to date on her routine blood work.??? She isn't due for any further screening. She isn't due for any immunizations.??? The patient is eating healthy and isn't very active at all. She doesn't smoke and does need refills today. She has a nurse who checks her blood pressure once a week and reports it has been well controlled overall. She will occasionally have an increased reading, but it doesn't stay elevated. She is taking all of her medications as prescribed for the most part. Her daughter reports she will rarely forget her evening dose. She does try to monitor her salt intake. The patient continues to have urinary frequency. Her daughter reports she is going around once an hour, but is drinking plenty of water. She denies any accidents. She does not feel that she is retaining any urine. She is no longer following with urogynecology. She reports that she hasn't had any further episodes of afib symptoms since the ED visit in September. She saw the home care chaplain in November who did not have further recommendations at the time. She denies any palpitations, chest pain or shortness of breath. She recently followed up with GI for her bowel problems. She is currently off the budesonide and had a repeat CT this morning for further assessment. (more content not included)... Normal [facility] Gastroenterology Visit Repor ton 07-28-2024 Gastroenterology Visit Report [facility] [address] [place] [address] OFFICE VISIT Date of Service: 07/28/24 MR#: [id number] Acct: [id number] Name: DEA MERRITT Rep #: [id number] : 1935 Provider: Jb Wood DO Age/Sex: 88/F Location: [facility] [place] Status: Signed Intake Vital Signs 01/23/24 08:34 04/22/24 08:33 Height 5 ft 1 in 5 ft Intake Visit Reasons: 6 M FU Allergies clindamycin Allergy (Verified 07/10/24 12:52) Other hyoscyamine Allergy (Verified 07/10/24 12:52) Other Penicillins Allergy (Verified 07/10/24 12:52) Hives Jjclujb-MVP-KrW Reductase Inhibitor (Uxsomuq-Owh-Kni Reductase Inhibitor) Allergy (Verified 07/10/24 12:52) Pain in joints nitrofurantoin (From Macrobid) Adverse Reaction (Mild, Verified 07/10/24 12:52) altered mental status glucosamine Adverse Reaction (Verified 07/10/24 12:52) Other Medications ???Medication ???Instructions ???Recorded ???Confirmed ???Type fluorometholone 0.1 % eye 1 drp ophthalmic (eye) BID PRN Dry 03/02/22 07/28/24 History drops,suspension Eyes cholecalciferol (vitamin D3) 25 25 mcg PO DAILY vitamin 05/08/23 07/28/24 History mcg (1,000 unit) tablet cyanocobalamin (vitamin B-12) 1,000 mcg PO DAILY vitamin 05/08/23 07/28/24 History 1,000 mcg tablet ferrous sulfate 325 mg (65 mg 325 mg PO DAILY supplement 05/08/23 07/28/24 History iron) tablet (Feosol) lorazepam 0.5 mg tablet 0.25 mg (1/2 x 0.5 mg) PO PRN PRN 10/18/23 07/28/24 Rx anxiety #10 tabs rivaroxaban 20 mg tablet (Xarelto) 20 mg PO QPM blood thinner #90 tabs 11/13/23 07/28/24 Rx handicap placard #1 ea 01/23/24 07/28/24 Rx budesonide 3 mg 6 mg (2 x 3 mg) PO DAILY 02/21/24 07/28/24 Rx capsule,delayed,extend ed release inflammation #60 ea metoprolol tartrate 25 mg tablet 25 mg PO BID #180 tabs 05/07/24 07/28/24 Rx losartan 100 mg tablet 100 mg PO DAILY blood pressure #90 07/14/24 07/28/24 Rx tabs Have you fallen in the past year?: No PFSH Medical History Cellulitis of mid back region Abrasion of right upper back excluding scapular region Longstanding persistent atrial fibrillation Arthritis involving multiple sites Essential hypertension CVA (cerebral vascular accident) (02/15/22) Anxiety GERD (gastroesophageal reflux disease) HLD (hyperlipidemia) Surgical History Cataract extraction status Family History Father Diabetes Hyperlipemia Mother Cancer stomach Brother Parkinson's disease Social History household members: none 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 PCP OV 11.01.22 for acute visit with diarrhea for a month; stopped newly recommended Vit D gummies, started shazia-pectate, stopped Metamucil with some improvement. Loose stool of small amount 4+ times a day, early satiety with decreased PO intake. Otherwise feels well. Biochemical CBC, magnesium. CMP potassium *L2.4, albumin L2.9 Stool EP, giardia, C.Difficile. Calprotectin H339 XRAY 11.01.22 no acute/chronic abnormalities. [facility] ED 11.01.22 with hypokalemia as noted by PCP workup. IV and PO potassium administered. Discharged with PO potassium supplement. Biochemical CBC. CMP potassium *L2.7, magnesium 2.33. [facility] ED .12.28 with ongoing diarrhea. Prednisone prescribed for plantar fasciitis and during this time there was noted improvement of diarrhea. PCP recommended ED presentation for labs and CT scan prior to starting prednisone. Discharged with omeprazole, budesonide and prednisone taper. Biochemical CBC (hgb 11.7). Potassium L3.0. CT abd/pel s/p cholecystectomy; mild central intrahepatic biliary ductal dilation and pancreatic ductal dilation, CBD WNL; large amount of fecal material seen in colon. PCP workup/orders. Continue budesonide and potassium, start prednisone 20mg taper. Biochemical workup .03.30 CMP (K 3.0, albumin L2.8, globulin H4.7). Vit D25, celiac WNL. *BGI established 3.3.23 with improvement of watery stools since start of steroids; she does experience tenesmus with flatulence and some small hard stools, urgency continues. Prior to this she was having watery, urgent and uncontrollable stools many times a (more content not included)... Normal [facility] Urgent Care Visit Reporton 1 Urgent Care Visit Report [facility] [address] [facility], [address] [place] [address] OFFICE VISIT Date of Service: 07/10/24 MR#: [id number] Acct: [id number] Name: DEA MERRITT Rep #: [id number] : 1935 Provider: GINA Taylor Age/Sex: 88/F Location: [facility] [place] Status: Signed Intake Vital Signs 04/22/24 08:33 07/10/24 12:51 Height 5 ft Weight: 106 lb BMI 20.7 BP 110/62 150/70 H Blood Pressure Location Lt brachial Lt brachial Position Sitting Sitting Respiration 14 16 Pulse 67 84 Pulse Source Monitor NIBP Temp 98.1 F 98.1 F Temp Source Temporal Temporal Pulse Oximetry (%) 92 96 Oxygen Delivery Method room air room air Intake Visit Reasons: SORE ON LEFT LEG Chief Complaint: LLE wound Small Products I Assembler Required: No Is patient in pain?: No Allergies clindamycin Allergy (Verified 07/10/24 12:52) Other hyoscyamine Allergy (Verified 07/10/24 12:52) Other Penicillins Allergy (Verified 07/10/24 12:52) Hives Wqddzfi-CNH-JiN Reductase Inhibitor (Hrcglry-Ymp-Bqp Reductase Inhibitor) Allergy (Verified 07/10/24 12:52) Pain in joints nitrofurantoin (From Macrobid) Adverse Reaction (Mild, Verified 07/10/24 12:52) altered mental status glucosamine Adverse Reaction (Verified 07/10/24 12:52) Other Is last menstrual period known: No Post menopausal: Yes Patient : No Have you fallen in the past year?: No Nurse's Note: pt noticed wound on RLE today in shower. no pain. wound red, appears to have dark blood inside. no active bleeding noted, pt on Xarelto. 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 Patient states she noticed it this morning while in the shower. She states not knowing any incident that could have caused the skin lesion. She denies numbness, tingling or loss range of motion to the leg. No fever, chills, sweats. No other associated symptoms or alleviating/aggravatin g factors. ROS Const Constitutional: No other (As above) Exam Const General: cooperative Resp Effort Inspection: normal respiratory effort Auscultation: Bilateral: Clear to Auscultation Cardio Rate: regular rate Rhythm: regular rhythm Skin General: no rashes or lesions noted Neuro General: patient alert Extrem Other: Small V-shaped skin tear left lower extremity mid jimenes area. Wound appears to be several days old but with dried crusted blood around the edges. No extending erythema, warmth or drainage. The wound was cleansed with Hibiclens and then dressed with a nonadherent dressing and gauze. Psych Appearance: grossly normal Coding Level of Care Code Off vis,est,level 3 Diagnoses Skin tear of left lower leg without complication S81.812A Assessment and Plan Assessment and Plan (1) Skin tear of left lower leg without complication: Status: Acute Plan: See wound care above. Doxycycline as prescribed today. Encouraged to get plenty of rest, drink lots of clear liquids, and use Tylenol or Ibuprofen (unless contraindicated) for comfort. Patient also educated on other symptomatic management techniques. To be seen in 7-10 days if no improvement; sooner if worsening of symptoms. Patient and caregiver advised of potential red flags and when appropriate to report to the ED. Both verbalized understanding and agreement with all the above. Medications: New doxycycline monohydrate 100 mg PO BID 20 tabs 0RF 10 days Clinical Quality Measures Falls Risk Screening/Assistive Devices Have you fallen in the past year?: No 10/0 (more content not included)... Normal [facility] Absolute lymphocyte countOrd ered By: Jin Gibson on 09-29-2023 Lymphocytes Auto (Unsp spec) [#/Vol] 2.63 10*3/uL 0.83-4.51 [facility] Basophil percentageOrdered B y: Jin Gibson on 09-29-2023 Basophils/100 WBC (Bld) 1.2 % 0-1 [facility] Chloride [Moles/Vol] 106 mmol/L 98-107 [facility] Eosinophils/100 WBC (Bld) 4.8 % 0-5 [facility] Glucose [Mass/Vol] 105 mg/dL 74-106 [facility] Comment on above: Fasting Glucose resu lt from 100 to 125 mg/dL suggests IMPAIRED HOMEOSTASIS per A.D.A. criteria. Neutrophils (Bld) [#/Vol] 5.7 10*3/uL 2.0-7.7 [facility] Neutrophils/100 WBC (Bld) 58.7 % 47-70 [facility] Potassium [Moles/Vol] 4.0 mmol/L 3.5-5.1 [facility] Sodium [Moles/Vol] 140 mmol/L 136-145 [facility] WBC (Bld) [#/Vol] 9.7 10*3/uL 4.4-11.0 [facility] [facility] count (nu mber/volume)Ordered By: Jin Gibson on 09-29-2023 RBC (Bld) [#/Vol] 4.34 10*6/uL 4.2-5.4 [facility] Blood hemoglobin measurement (mass/volume)Ordered By: Jin Gibson on 09-29-2023 Hemoglobin (Bld) [Mass/Vol] 13.6 g/dL 12.0-15. 0 [facility] Blood lymphocytes/100 leukoc ytesOrdered By: Jin Gibson on 09-29-2023 Lymphocytes/100 WBC (Bld) 27.2 % 19-41 [facility] Blood monocytes/100 leukocyt esOrdered By: Jin Gibson on 09-29-2023 Monocytes/100 WBC (Bld) 7.7 % 0-10 [facility] Blood platelet mean volumeOr dered By: Jin Gibson on 09-29-2023 Platelet mean volume (Bld) [Entitic vol] 10.6 fL 6.2-12.0 [facility] Determination of erythrocyte mean corpuscular volume (MCV)Ordered By: Jin Gibson on 09-29-2023 MCV (RBC) [Entitic vol] 99.8 fL 81-99 [facility] Hematocrit Auto (Bld) [Volum e fraction]Ordered By: Jin Gibson on 09-29-2023 Hematocrit (Bld) [Volume fraction] 43.3 % 37-47 [facility] INR in Blood by Coagulation assayOrdered By: Jin Gibson on 09-29-2023 INR Coag (Bld) [Relative time] 2.1 {INR} [facility] Laboratory - Chemistry and C hemistry - challengeOrdered By: Jin Gibson on 09-29-2023 CO2 [Moles/Vol] 29.0 mmol/L 21.0-32.0 [facility] Urea nitrogen/Creatinine [Mass ratio] 17.6 mg/mg 10-20 [facility] Laboratory - CoagulationOrde red By: Jin Gibson on 09-29-2023 aPTT Coag (Bld) [Time] 33.2 s 24.1-36.2 [facility] PT Coag (PPP) [Time] 24.2 s 11.7-14.9 [facility] Laboratory - Hematology and Cell countsOrdered By: Jin Gibson on 09-29-2023 Erythrocyte distribution width (RBC) [Entitic vol] 45.9 fL 35.1-43.9 [facility] Erythrocyte distribution width (RBC) [Ratio] 12.5 % 11.6-14.6 [facility] Immature granulocytes/100 WBC (Bld) 0.400 % 0.0-0.9 [facility] Comment on above: IG% - Immature Granu locytes (promyelocytes, myelocytes and metamyelocytes) > 1% indicates that a LEFT SHIFT is Present. MCH (RBC) [Entitic mass] 31.3 pg 27.0-32.0 [facility] Nucleated RBC/100 WBC (Bld) [Ratio] 0 % 0-5 [facility] MCHC Auto (RBC) [Mass/Vol]Or dered By: Jin Gibson on 09-29-2023 MCHC (RBC) [Mass/Vol] 31.4 g/dL 32-36 [facility] No Panel InformationOrdered By: Jin Gibson on 09-29-2023 Troponin I High Sensitivity 8 pg/mL 3.0-54.0 [facility] Comment on above: Please Note: New Sherry t Units and Gender Specific Reference Ranges. For more information see Policy Stat Procedure [place] High Sensitivity Troponin (TNIH) and attachments. Estimated Creatinine Clearance Calc 30.47 ml/min [facility] Estimated GFR (MDRD) Amer 96 mL/min >60 [facility] Comment on above: GFR Calc Estimated GFR (MDRD) Non-Af Amer 80 mL/min >60 [facility] Comment on above: Non- GFR Calc Platelets bldOrdered By: Isadora Gibson on 09-29-2023 Platelets (Bld) [#/Vol] 417 10*3/uL 150-450 [facility] Serum or plasma calcium alissa urement (mass/volume)Ordered By: Jin Gibson on 09-29-2023 Calcium [Mass/Vol] 9.0 mg/dL 8.5-10.1 [facility] Serum or plasma creatinine m easurement (mass/volume)Ordered By: Jin Gibson on 09-29-2023 Creatinine [Mass/Vol] 0.74 mg/dL 0.55-1.02 [facility] Comment on above: The validity of the calculated GFR & GFRAA in patients over 70 years has not been determined. Clinical correlation is essential. Serum or plasma urea nitroge n measurement (mass/volume)Ordered By: Jin Gibson on 09-29-2023 Urea nitrogen [Mass/Vol] 13 mg/dL 7-18 [facility] Thin prep Papanicolaou smear with manual screeningOrdered By: Jin Gibson on 09-29-2023 Thin prep Papanicolaou smear with manual screening 5 5-15 [facility] No Panel Informationon 09-13 Influenza Types A,B Rapid (Clinic) Negative [facility] Basophil percentageOrdered B y: Deepika Fabian on 07-10-2023 Basophil percentage 0-5 SEEN /hpf 0-5 [facility] Bilirubin Test strip Ql (U)O rdered By: Deepika Fabian on 07-10-2023 Bilirubin Ql (U) Negative Negative [facility] Culture, urineOrdered By: Franco Fabian on 07-10-2023 Bacteria identified Cx Nom (U) Culture exhibits no growth. [facility] Ketones Test strip Ql (U)Ord ered By: Deepika Fabian on 07-10-2023 Ketones Ql (U) Negative Negative [facility] Mucus LM Ql (Urine sed)Order ed By: Deepika Fabian on 07-10-2023 Mucus Ql (Urine sed) 0 SEEN /hpf [facility] Nitrite Test strip Ql (U)Ord ered By: Deepika Fabian on 07-10-2023 Nitrite Ql (U) Negative Negative [facility] Protein Test strip Ql (U)Ord ered By: Deepika Fabian on 07-10-2023 Protein Ql (U) Negative Negative [facility] Squamous epithelial cells de tection in urine sediment by light microscopyOrdered By: Deepika Fabian on 07-10-2023 Epithelial cells.squamous LM Ql (Urine sed) 0 SEEN /hpf 5-10 [facility] Urine blood detectionOrdered By: Deepika Fabian on 07-10-2023 RBC Ql (U) 10 /ul Negative [facility] RBC Ql (U) 0 SEEN /hpf 0-5 [facility] Urine clarityOrdered By: Ray Fabian on 07-10-2023 Clarity (U) Clear Clear [facility] Urine color determinationOrd ered By: Deepika Fabian on 07-10-2023 Color (U) Yellow Yellow [facility] Urine glucose detectionOrder ed By: Deepika Fabian on 07-10-2023 Glucose Ql (U) Normal mg/dl Normal [facility] Urine leukocyte esterase det ection by dipstickOrdered By: Deepika Fabian on 07-10-2023 Leukocyte esterase Test strip Ql (U) 25 /ul Negative [facility] Urine pHOrdered By: Deepika morrow on 07-10-2023 pH (U) 6.0 [pH] 5.0 - 8.0 [facility] Urine sediment bacteria coun t by microscopy (number/high power field)Ordered By: Deepika Fabian on 07-10-2023 Bacteria LM.HPF (Urine sed) [#/Area] 0 /[HPF] None Seen [facility] Urine specific gravity measu rementOrdered By: Deepika Fabian on 07-10-2023 Specific gravity (U) [Rel density] 1.010 1.002-1.03 0 [facility] Urobilinogen Auto test strip Ql (U)Ordered By: Deepika Fabian on 07-10-2023 Urobilinogen Ql (U) Normal mg/dl Normal [facility] Culture, urineOrdered By: Kathryn Cheng on 06-28-2023 Bacteria identified Cx Nom (U) Presumptive E. coli [facility] Basophil percentageOrdered B y: Terrell Cheng on 06-27-2023 Basophil percentage >100 SEEN /hpf 0-5 [facility] Bilirubin Test strip Ql (U)O rdered By: Terrell Cheng on 06-27-2023 Bilirubin Ql (U) Negative Negative [facility] Ketones Test strip Ql (U)Ord ered By: Terrell Cheng on 06-27-2023 Ketones Ql (U) Negative Negative [facility] Laboratory - Chemistry and C hemistry - challengeon 06-27-2023 Bilirubin Ql (U) Negative [facility] Glucose Ql (U) Negative [facility] Ketones Ql (U) Negative [facility] pH (U) 8.0 [pH] [facility] Specific gravity (U) [Rel density] 1.020 [facility] Urobilinogen (U) [Mass/Vol] 2 mg/dL [facility] Laboratory - Hematology and Cell countson 06-27-2023 Hemoglobin Ql (U) Trace [facility] Laboratory - Specimen inform ationon 06-27-2023 Clarity (U) Cloudy [facility] Color (U) Yellow [facility] Laboratory - Urinalysison Nitrite Ql (U) Negative [facility] Protein Ql (U) Negative [facility] Mucus LM Ql (Urine sed)Order ed By: Terrell Cheng on 06-27-2023 Mucus Ql (Urine sed) 0 SEEN /hpf [facility] Nitrite Test strip Ql (U)Ord ered By: Terrell Cheng on 06-27-2023 Nitrite Ql (U) Negative Negative [facility] No Panel Informationon 06-27 Urine Leukocytes Positive [facility] Urine Non-Hemolyzed Blood [facility] Protein Test strip Ql (U)Ord ered By: Terrell Cheng on 06-27-2023 Protein Ql (U) 15 mg/dl Negative [facility] Squamous epithelial cells de tection in urine sediment by light microscopyOrdered By: Terrell Cheng on 06-27-2023 Epithelial cells.squamous LM Ql (Urine sed) 0-5 SEEN /hpf 5-10 [facility] Urine blood detectionOrdered By: Terrell Cheng on 06-27-2023 RBC Ql (U) 25 /ul Negative [facility] RBC Ql (U) 0-5 SEEN /hpf 0-5 [facility] Urine clarityOrdered By: Arnoldo Cheng on 06-27-2023 Clarity (U) Sl. Cloudy Clear [facility] Urine color determinationOrd ered By: Terrell Cheng on 06-27-2023 Color (U) Yellow Yellow [facility] Urine glucose detectionOrder ed By: Terrell Cheng on 06-27-2023 Glucose Ql (U) Normal mg/dl Normal [facility] Urine leukocyte esterase det ection by dipstickOrdered By: Terrell Cheng on 06-27-2023 Leukocyte esterase Test strip Ql (U) 500 /ul Negative [facility] Urine pHOrdered By: Terrell weir on 06-27-2023 pH (U) 8.0 [pH] 5.0 - 8.0 [facility] Urine sediment bacteria coun t by microscopy (number/high power field)Ordered By: Terrell Cheng on 06-27-2023 Bacteria LM.HPF (Urine sed) [#/Area] RARE /hpf None Seen [facility] Urine specific gravity measu rementOrdered By: Terrell Cheng on 06-27-2023 Specific gravity (U) [Rel density] 1.010 1.002-1.03 0 [facility] Urobilinogen Auto test strip Ql (U)Ordered By: Terrell Cheng on 06-27-2023 Urobilinogen Ql (U) Normal mg/dl Normal [facility] Culture, urineOrdered By: Dr Luciano Fabian on 03-17-2023 Bacteria identified Cx Nom (U) Presumptive E. coli [facility] Basophil percentageOrdered B y: Dr. Fabian on 03-15-2023 Basophil percentage 25-50 SEEN /hpf 0-5 [facility] Bilirubin Test strip Ql (U)O rdered By: Dr. Fabian on 03-15-2023 Bilirubin Ql (U) Negative Negative [facility] Culture, urineOrdered By: Franco Fabian on 03-15-2023 Bacteria identified Cx Nom (U) Presumptive E. coli [facility] Ketones Test strip Ql (U)Ord ered By: Dr. Fabian on 03-15-2023 Ketones Ql (U) Negative Negative [facility] Mucus LM Ql (Urine sed)Order ed By: Dr. Fabian on 03-15-2023 Mucus Ql (Urine sed) 0 SEEN /hpf [facility] Nitrite Test strip Ql (U)Ord ered By: Dr. Fabian on 03-15-2023 Nitrite Ql (U) Positive Negative [facility] Protein Test strip Ql (U)Ord ered By: Dr. Fabian on 03-15-2023 Protein Ql (U) 15 mg/dl Negative [facility] Squamous epithelial cells de tection in urine sediment by light microscopyOrdered By: Dr. Fabian on 03-15-2023 Epithelial cells.squamous LM Ql (Urine sed) 0 SEEN /hpf 5-10 [facility] Urine blood detectionOrdered By: Dr. Fabian on 03-15-2023 RBC Ql (U) 25 /ul Negative [facility] RBC Ql (U) 0-5 SEEN /hpf 0-5 [facility] Urine clarityOrdered By: Dr. Fabian on 03-15-2023 Clarity (U) Sl. Cloudy Clear [facility] Urine color determinationOrd ered By: Dr. Fabian on 03-15-2023 Color (U) Yellow Yellow [facility] Urine glucose detectionOrder ed By: Dr. Fabian on 03-15-2023 Glucose Ql (U) Normal mg/dl Normal [facility] Urine leukocyte esterase det ection by dipstickOrdered By: Dr. Fabian on 03-15-2023 Leukocyte esterase Test strip Ql (U) 500 /ul Negative [facility] Urine pHOrdered By: Dr. Lupillo alexander on 03-15-2023 pH (U) 8.0 [pH] 5.0 - 8.0 [facility] Urine sediment bacteria coun t by microscopy (number/high power field)Ordered By: Dr. Fabian on 03-15-2023 Bacteria LM.HPF (Urine sed) [#/Area] 1 /[HPF] None Seen [facility] Urine specific gravity measu rementOrdered By: Dr. Fabian on 03-15-2023 Specific gravity (U) [Rel density] 1.010 1.002-1.03 0 [facility] Urobilinogen Auto test strip Ql (U)Ordered By: Dr. Fabian on 03-15-2023 Urobilinogen Ql (U) Normal mg/dl Normal [facility] Absolute lymphocyte countOrd ered By: Grace Luna on 03-01-2023 Lymphocytes Auto (Unsp spec) [#/Vol] 2.28 10*3/uL 0.83-4.51 [facility] Basophil percentageOrdered B y: Grace Luna on 03-01-2023 Basophils/100 WBC (Bld) 0.9 % 0-1 [facility] Chloride [Moles/Vol] 107 mmol/L 98-107 [facility] Eosinophils/100 WBC (Bld) 3.8 % 0-5 [facility] Glucose [Mass/Vol] 97 mg/dL 74-106 [facility] Neutrophils (Bld) [#/Vol] 6.3 10*3/uL 2.0-7.7 [facility] Neutrophils/100 WBC (Bld) 63.4 % 47-70 [facility] Potassium [Moles/Vol] 3.8 mmol/L 3.5-5.1 [facility] Sodium [Moles/Vol] 140 mmol/L 136-145 [facility] WBC (Bld) [#/Vol] 10.0 10*3/uL 4.4-11.0 [facility] Blood erythrocytes count (nu mber/volume)Ordered By: Grace Luna on 03-01-2023 RBC (Bld) [#/Vol] 3.58 10*6/uL 4.2-5.4 [facility] Blood hemoglobin measurement (mass/volume)Ordered By: Grace Luna on 03-01-2023 Hemoglobin (Bld) [Mass/Vol] 10.9 g/dL 12.0-15. 0 [facility] Blood lymphocytes/100 leukoc ytesOrdered By: Grace Luna on 03-01-2023 Lymphocytes/100 WBC (Bld) 22.9 % 19-41 [facility] Blood monocytes/100 leukocyt esOrdered By: Grace Luna on 03-01-2023 Monocytes/100 WBC (Bld) 8.5 % 0-10 [facility] Blood platelet mean volumeOr dered By: Grace Luna on 03-01-2023 Platelet mean volume (Bld) [Entitic vol] 9.8 fL 6.2-12.0 [facility] Determination of erythrocyte mean corpuscular volume (MCV)Ordered By: Grace Luna on 03-01-2023 MCV (RBC) [Entitic vol] 98.6 fL 81-99 [facility] Hematocrit Auto (Bld) [Volum e fraction]Ordered By: Grace Luna on 03-01-2023 Hematocrit (Bld) [Volume fraction] 35.3 % 37-47 [facility] Iron measurement (mass/mass) Ordered By: Dr. Fabian on 03-01-2023 Iron (Unsp spec) [Mass/Mass] 27 ug/dL 50-170 [facility] Laboratory - Chemistry and C hemistry - challengeOrdered By: Dr. Fabain on 03-01-2023 Magnesium [Mass/Vol] 2.1 mg/dL 1.6-2.6 [facility] Laboratory - Chemistry and C hemistry - challengeOrdered By: Grace Luna on 03-01-2023 CO2 [Moles/Vol] 26.0 mmol/L 21.0-32.0 [facility] Urea nitrogen/Creatinine [Mass ratio] 25.9 mg/mg 10-20 [facility] Laboratory - Hematology and Cell countsOrdered By: Grace Luna on 03-01-2023 Erythrocyte distribution width (RBC) [Entitic vol] 45.0 fL 35.1-43.9 [facility] Erythrocyte distribution width (RBC) [Ratio] 12.4 % 11.6-14.6 [facility] Immature granulocytes/100 WBC (Bld) 0.500 % 0.0-0.9 [facility] Comment on above: IG% - Immature Granu locytes (promyelocytes, myelocytes and metamyelocytes) > 1% indicates that a LEFT SHIFT is Present. MCH (RBC) [Entitic mass] 30.4 pg 27.0-32.0 [facility] Nucleated RBC/100 WBC (Bld) [Ratio] 0 % 0-5 [facility] MCHC Auto (RBC) [Mass/Vol]Or dered By: Grace Luna on 03-01-2023 MCHC (RBC) [Mass/Vol] 30.9 g/dL 32-36 [facility] No Panel InformationOrdered By: Dr. Fabian on 03-01-2023 Total Iron Binding Capacity 259 ug/dL 250-450 [facility] Vitamin D 25-Hydroxy 34.0 ng/mL [facility] Comment on above: Vitamin D 25(OH) Sta tus Range Deficiency <20 ng/mL (50nmol/L) Insufficiency 20 - 30 ng/mL (50 - 75 nmol/L) Sufficiency 30 - 100 ng/mL (75 - 250 nmol/L) Toxicity >100 ng/mL (>250 nmol/L) No Panel InformationOrdered By: Grace Luna on 03-01-2023 Estimated GFR (MDRD) Amer 110 mL/min >60 [facility] Comment on above: GFR Calc Estimated GFR (MDRD) Non-Af Amer 91 mL/min >60 [facility] Comment on above: Non- GFR Calc Platelets bldOrdered By: Max Luna on 03-01-2023 Platelets (Bld) [#/Vol] 424 10*3/uL 150-450 [facility] Serum or plasma calcium alissa urement (mass/volume)Ordered By: Grace Luna on 03-01-2023 Calcium [Mass/Vol] 9.0 mg/dL 8.5-10.1 [facility] Serum or plasma creatinine m easurement (mass/volume)Ordered By: Grace Luna on 03-01-2023 Creatinine [Mass/Vol] 0.66 mg/dL 0.55-1.02 [facility] Comment on above: The validity of the calculated GFR & GFRAA in patients over 70 years has not been determined. Clinical correlation is essential. Serum or plasma ferritin neil surement (mass/volume)Ordered By: Dr. Fabian on 03-01-2023 Ferritin [Mass/Vol] 92 ng/mL 8-252 [facility] Serum or plasma iron saturat ion measurement (mass fraction)Ordered By: Dr. Fabian on 03-01-2023 Iron saturation [Mass fraction] 10.4 % 15.0-55.0 [facility] Serum or plasma urea nitroge n measurement (mass/volume)Ordered By: Grace Luna on 03-01-2023 Urea nitrogen [Mass/Vol] 17 mg/dL 7-18 [facility] Thin prep Papanicolaou smear with manual screeningOrdered By: Grace Luna on 03-01-2023 Thin prep Papanicolaou smear with manual screening 7 5-15 [facility] Absolute lymphocyte countOrd ered By: Allison Tomlinson on 02-15-2023 Lymphocytes Auto (Unsp spec) [#/Vol] 3.01 10*3/uL 0.83-4.51 [facility] Basophil percentageOrdered B y: Allison Tomlinson on 02-15-2023 Basophils/100 WBC (Bld) 0.3 % 0-1 [facility] Chloride [Moles/Vol] 106 mmol/L 98-107 [facility] Eosinophils/100 WBC (Bld) 1.6 % 0-5 [facility] Glucose [Mass/Vol] 98 mg/dL 74-106 [facility] Neutrophils (Bld) [#/Vol] 10.8 10*3/uL 2.0-7.7 [facility] Neutrophils/100 WBC (Bld) 70.1 % 47-70 [facility] Potassium [Moles/Vol] 3.5 mmol/L 3.5-5.1 [facility] Sodium [Moles/Vol] 139 mmol/L 136-145 [facility] WBC (Bld) [#/Vol] 15.3 10*3/uL 4.4-11.0 [facility] Blood erythrocytes count (nu mber/volume)Ordered By: Allison Tomlinson on 02-15-2023 RBC (Bld) [#/Vol] 3.58 10*6/uL 4.2-5.4 [facility] Blood hemoglobin measurement (mass/volume)Ordered By: Allison Tomlinson on 02-15-2023 Hemoglobin (Bld) [Mass/Vol] 11.1 g/dL 12.0-15. 0 [facility] Blood lymphocytes/100 leukoc ytesOrdered By: Allison Tomlinson on 02-15-2023 Lymphocytes/100 WBC (Bld) 19.6 % 19-41 [facility] Blood monocytes/100 leukocyt esOrdered By: Allison Tomlinson on 02-15-2023 Monocytes/100 WBC (Bld) 7.4 % 0-10 [facility] Blood platelet mean volumeOr dered By: Allison Tomlinson on 02-15-2023 Platelet mean volume (Bld) [Entitic vol] 8.9 fL 6.2-12.0 [facility] Determination of erythrocyte mean corpuscular volume (MCV)Ordered By: Allison Tomlinson on 02-15-2023 MCV (RBC) [Entitic vol] 96.6 fL 81-99 [facility] Hematocrit Auto (Bld) [Volum e fraction]Ordered By: Allison Tomlinson on 02-15-2023 Hematocrit (Bld) [Volume fraction] 34.6 % 37-47 [facility] Laboratory - Chemistry and C hemistry - challengeOrdered By: Allison Tomlinson on 02-15-2023 CO2 [Moles/Vol] 26.0 mmol/L 21.0-32.0 [facility] Urea nitrogen/Creatinine [Mass ratio] 23.7 mg/mg 10-20 [facility] Laboratory - Hematology and Cell countsOrdered By: Allison Tomlinson on 02-15-2023 Erythrocyte distribution width (RBC) [Entitic vol] 46.0 fL 35.1-43.9 [facility] Erythrocyte distribution width (RBC) [Ratio] 12.8 % 11.6-14.6 [facility] Immature granulocytes/100 WBC (Bld) 1.000 % 0.0-0.9 [facility] Comment on above: IG% - Immature Granu locytes (promyelocytes, myelocytes and metamyelocytes) > 1% indicates that a LEFT SHIFT is Present. MCH (RBC) [Entitic mass] 31.0 pg 27.0-32.0 [facility] Nucleated RBC/100 WBC (Bld) [Ratio] 0 % 0-5 [facility] MCHC Auto (RBC) [Mass/Vol]Or dered By: Allison Tomlinson on 02-15-2023 MCHC (RBC) [Mass/Vol] 32.1 g/dL 32-36 [facility] No Panel InformationOrdered By: Allison Tomlinson on 02-15-2023 Estimated GFR (MDRD) Amer 93 mL/min >60 [facility] Comment on above: GFR Calc Estimated GFR (MDRD) Non-Af Amer 77 mL/min >60 [facility] Comment on above: Non- GFR Calc Platelets bldOrdered By: Cameron Tomlinson on 02-15-2023 Platelets (Bld) [#/Vol] 522 10*3/uL 150-450 [facility] Serum or plasma calcium alissa urement (mass/volume)Ordered By: Allison Tomlinson on 02-15-2023 Calcium [Mass/Vol] 8.7 mg/dL 8.5-10.1 [facility] Serum or plasma creatinine m easurement (mass/volume)Ordered By: Allison Tomlinson on 02-15-2023 Creatinine [Mass/Vol] 0.76 mg/dL 0.55-1.02 [facility] Comment on above: The validity of the calculated GFR & GFRAA in patients over 70 years has not been determined. Clinical correlation is essential. Serum or plasma urea nitroge n measurement (mass/volume)Ordered By: Allison Tomlinson on 02-15-2023 Urea nitrogen [Mass/Vol] 18 mg/dL 7-18 [facility] Thin prep Papanicolaou smear with manual screeningOrdered By: Allison Tomlinson on 02-15-2023 Thin prep Papanicolaou smear with manual screening 7 5-15 [facility] COVID-19 virus antigen assay Ordered By: Jody Moffett on 02-13-2023 SARS-CoV-2 (COVID-19) Ag IA.rapid Ql (Resp) [facility] COVID-19 virus antigen assay Ordered By: Dr. Moffett on 02-13-2023 SARS-CoV-2 (COVID-19) Ag IA.rapid Ql (Resp) [facility] Absolute lymphocyte countOrd ered By: Dr. Reynolds on 02-12-2023 Lymphocytes Auto (Unsp spec) [#/Vol] 2.21 10*3/uL 0.83-4.51 [facility] Basophil percentageOrdered B y: Dr. Moffett on 02-12-2023 Basophil percentage 2.5 mg/dL 2.5-4.9 [facility] Bilirubin [Mass/Vol] 0.30 mg/dL 0.20-1.00 [facility] Comment on above: For patients on eltr ombopag therapy, use of Dimension [place] TBIL is not recommended. Protein [Mass/Vol] 6.0 g/dL 6.4-8.2 [facility] [facility] Basophil percentageOrdered B y: Dr. Reynolds on 02-12-2023 Basophils/100 WBC (Bld) 0.3 % 0-1 [facility] Chloride [Moles/Vol] 108 mmol/L 98-107 [facility] Eosinophils/100 WBC (Bld) 1.0 % 0-5 [facility] Glucose [Mass/Vol] 106 mg/dL 74-106 [facility] Comment on above: Fasting Glucose resu lt from 100 to 125 mg/dL suggests IMPAIRED HOMEOSTASIS per A.D.A. criteria. Neutrophils (Bld) [#/Vol] 9.2 10*3/uL 2.0-7.7 [facility] Neutrophils/100 WBC (Bld) 72.9 % 47-70 [facility] Potassium [Moles/Vol] 4.2 mmol/L 3.5-5.1 [facility] Sodium [Moles/Vol] 138 mmol/L 136-145 [facility] WBC (Bld) [#/Vol] 12.7 10*3/uL 4.4-11.0 [facility] Blood erythrocytes count (nu mber/volume)Ordered By: Dr. Reynolds on 02-12-2023 RBC (Bld) [#/Vol] 3.43 10*6/uL 4.2-5.4 [facility] Blood hemoglobin measurement (mass/volume)Ordered By: Dr. Reynolds on 02-12-2023 Hemoglobin (Bld) [Mass/Vol] 10.9 g/dL 12.0-15. 0 [facility] Blood lymphocytes/100 leukoc ytesOrdered By: Dr. Reynolds on 02-12-2023 Lymphocytes/100 WBC (Bld) 17.4 % 19-41 [facility] Blood monocytes/100 leukocyt esOrdered By: Dr. Reynolds on 02-12-2023 Monocytes/100 WBC (Bld) 7.8 % 0-10 [facility] Blood platelet mean volumeOr dered By: Dr. Reynolds on 02-12-2023 Platelet mean volume (Bld) [Entitic vol] 9.5 fL 6.2-12.0 [facility] Determination of erythrocyte mean corpuscular volume (MCV)Ordered By: Dr. Reynolds on 02-12-2023 MCV (RBC) [Entitic vol] 98.0 fL 81-99 [facility] Direct bilirubinOrdered By: Dr. Moffett on 02-12-2023 Bilirubin.direct [Mass/Vol] mg/dL 0.00-0.3 0 [facility] Hematocrit Auto (Bld) [Volum e fraction]Ordered By: Dr. Reynolds on 02-12-2023 Hematocrit (Bld) [Volume fraction] 33.6 % 37-47 [facility] Laboratory - Chemistry and C hemistry - challengeOrdered By: Dr. Moffett on 02-12-2023 ALP [Catalytic activity/Vol] 57 U/L 45-117 [facility] ALT [Catalytic activity/Vol] 15 U/L 13-56 [facility] Free T4 [Mass/Vol] 1.38 ng/dL 0.76-1.46 [facility] Globulin (S) [Mass/Vol] 4.2 g/dL 2.2-4.2 [facility] Magnesium [Mass/Vol] 1.9 mg/dL 1.6-2.6 [facility] Laboratory - Chemistry and C hemistry - challengeOrdered By: Dr. Reynolds on 02-12-2023 CO2 [Moles/Vol] 24.0 mmol/L 21.0-32.0 [facility] Urea nitrogen/Creatinine [Mass ratio] 27.0 mg/mg 10-20 [facility] Laboratory - Hematology and Cell countsOrdered By: Dr. Reynolds on 02-12-2023 Erythrocyte distribution width (RBC) [Entitic vol] 44.9 fL 35.1-43.9 [facility] Erythrocyte distribution width (RBC) [Ratio] 12.7 % 11.6-14.6 [facility] Immature granulocytes/100 WBC (Bld) 0.600 % 0.0-0.9 [facility] Comment on above: IG% - Immature Granu locytes (promyelocytes, myelocytes and metamyelocytes) > 1% indicates that a LEFT SHIFT is Present. MCH (RBC) [Entitic mass] 31.8 pg 27.0-32.0 [facility] Nucleated RBC/100 WBC (Bld) [Ratio] 0 % 0-5 [facility] MCHC Auto (RBC) [Mass/Vol]Or dered By: Dr. Reynolds on 02-12-2023 MCHC (RBC) [Mass/Vol] 32.4 g/dL 32-36 [facility] No Panel InformationOrdered By: Dr. Reynolds on 02-12-2023 Estimated Creatinine Clearance Calc 31.04 ml/min [facility] Estimated GFR (MDRD) Amer 108 mL/min >60 [facility] Comment on above: GFR Calc Estimated GFR (MDRD) Non-Af Amer 89 mL/min >60 [facility] Comment on above: Non- GFR Calc No Panel InformationOrdered By: Dr. Moffett on 02-12-2023 Thyroid Stimulating Hormone (TSH) 0.86 uIU/mL 0.358-3.74 [facility] Platelets bldOrdered By: Dr. Reynolds on 02-12-2023 Platelets (Bld) [#/Vol] 483 10*3/uL 150-450 [facility] Serum or plasma albumin alissa urement (mass/volume)Ordered By: Dr. Moffett on 02-12-2023 Albumin [Mass/Vol] 1.8 g/dL 3.2-5.0 [facility] Serum or plasma calcium alissa urement (mass/volume)Ordered By: Dr. Reynolds on 02-12-2023 Calcium [Mass/Vol] 8.6 mg/dL 8.5-10.1 [facility] Serum or plasma creatinine m easurement (mass/volume)Ordered By: Dr. Reynolds on 02-12-2023 Creatinine [Mass/Vol] 0.67 mg/dL 0.55-1.02 [facility] Comment on above: The validity of the calculated GFR & GFRAA in patients over 70 years has not been determined. Clinical correlation is essential. Serum or plasma urea nitroge n measurement (mass/volume)Ordered By: Dr. Reynolds on 02-12-2023 Urea nitrogen [Mass/Vol] 18 mg/dL 7-18 [facility] Thin prep Papanicolaou smear with manual screeningOrdered By: Dr. Moffett on 02-12-2023 Thin prep Papanicolaou smear with manual screening 14 U/L 15-37 [facility] Thin prep Papanicolaou smear with manual screeningOrdered By: Dr. Reynolds on 02-12-2023 Thin prep Papanicolaou smear with manual screening 6 5-15 [facility] EP PanelOrdered By: Dr. Kaylee epstein on 02-09-2023 Gastrointestinal pathogens panel HAZEL+probe (Stl) [facility] Basophil percentageOrdered B y: Dr. Cedeno on 02-08-2023 Basophil percentage 5-10 SEEN /hpf 0-5 [facility] Bilirubin Test strip Ql (U)O rdered By: Dr. Cedeno on 02-08-2023 Bilirubin Ql (U) Negative Negative [facility] Ketones Test strip Ql (U)Ord ered By: Dr. Cedeno on 02-08-2023 Ketones Ql (U) 5 mg/dl Negative [facility] Mucus LM Ql (Urine sed)Order ed By: Dr. Cedeno on 02-08-2023 Mucus Ql (Urine sed) 0 SEEN /hpf [facility] Nitrite Test strip Ql (U)Ord ered By: Dr. Cedeno on 02-08-2023 Nitrite Ql (U) Negative Negative [facility] Protein Test strip Ql (U)Ord ered By: Dr. Cedeno on 02-08-2023 Protein Ql (U) 30 mg/dl Negative [facility] Serum or plasma albumin/glob ulin mass ratioOrdered By: Dr. Cedeno on 02-08-2023 Albumin/Globulin [Mass ratio] 0.5 {ratio} 0.9-2.4 [facility] Serum or plasma uric acid me asurement (mass/volume)Ordered By: Dr. Reynolds on 02-08-2023 Urate [Mass/Vol] 4.5 mg/dL 2.6-6.0 [facility] Comment on above: The drugs N-Acetylcy steine and Metamizole may falsely depress this assay. Squamous epithelial cells de tection in urine sediment by light microscopyOrdered By: Dr. Cedeno on 02-08-2023 Epithelial cells.squamous LM Ql (Urine sed) 0-5 SEEN /hpf 5-10 [facility] Stool enteric pathogen panel by probe and target amplification methodOrdered By: Himanshu Reynolds on 02-08-2023 Gastrointestinal pathogens panel HAZEL+probe (Stl) [facility] Urine blood detectionOrdered By: Dr. Cedeno on 02-08-2023 RBC Ql (U) 10 /ul Negative [facility] RBC Ql (U) 0 SEEN /hpf 0-5 [facility] Urine clarityOrdered By: Dr. Cedeno on 02-08-2023 Clarity (U) Clear Clear [facility] Urine color determinationOrd ered By: Dr. Cedeno on 02-08-2023 Color (U) Yellow Yellow [facility] Urine glucose detectionOrder ed By: Dr. Cedeno on 02-08-2023 Glucose Ql (U) Normal mg/dl Normal [facility] Urine leukocyte esterase det ection by dipstickOrdered By: Dr. Cedeno on 02-08-2023 Leukocyte esterase Test strip Ql (U) 100 /ul Negative [facility] Urine pHOrdered By: Dr. Juliann erveles on 02-08-2023 pH (U) 7.0 [pH] 5.0 - 8.0 [facility] Urine sediment bacteria coun t by microscopy (number/high power field)Ordered By: Dr. Cedeno on 02-08-2023 Bacteria LM.HPF (Urine sed) [#/Area] 0 /[HPF] None Seen [facility] Urine specific gravity measu rementOrdered By: Dr. Cedeno on 02-08-2023 Specific gravity (U) [Rel density] 1.010 1.002-1.03 0 [facility] Urobilinogen Auto test strip Ql (U)Ordered By: Dr. Cedeno on 02-08-2023 Urobilinogen Ql (U) Normal mg/dl Normal [facility] Stool lactoferrin detection by immunoassayOrdered By: Jb Wood on 12-12-2022 Lactoferrin IA Ql (Stl) [facility] Clostridium difficile detect ion by polymerase chain reactionOrdered By: Jb Wood on 12-11-2022 C. difficile DNA HAZEL+probe Ql (Unsp spec) [facility] EP PanelOrdered By: Jb Wood on 12-11-2022 Gastrointestinal pathogens panel HAZEL+probe (Stl) [facility] No Panel InformationOrdered By: Jb Wood on 12-10-2022 Stool Calprotectin 526 ug/g 0-120 [facility] Comment on above: Concentration Interp retation Follow-Up<16 - 50 ug/g Normal None>50 -120 ug/g Borderline Re-evaluate in 4-6 weeks >120 ug/g Abnormal Repeat as clinically indicatedPerformed at: [place] [id number] Director: Mick Bradley PhD, Phone: [phone] at: [facility] [id number] Director: Payam Ervin MD, Phone: [phone] Stool Neutral Fats Normal . [facility] Comment on above: Normal (<60 Droplets /HPF) Stool Pancreatic Elastase 390 >200 [facility] Comment on above: Result Units: ug Fadum[address] st./g Severe Pancreatic Insufficiency: <100 Moderate Pancreatic Insufficiency: 100 - 200 Normal: >200Performed at: [facility] [id number] Director: Payam Ervin MD, Phone: [phone] Qualitative fecal fat or lip idsOrdered By: Jb Wood on 12-10-2022 Fat Ql (Stl) Normal . [facility] Comment on above: Normal (<100 Droplet s/HPF) Absolute lymphocyte countOrd ered By: Jb Wood on 12-08-2022 Lymphocytes Auto (Unsp spec) [#/Vol] 1.00 10*3/uL 0.83-4.51 [facility] Albumin Elph [Mass/Vol]Order ed By: Jb Wood on 12-08-2022 Albumin [Mass/Vol] 3.2 g/dL 2.9-4.4 [facility] Atypical perinuclear antineu trophil cytoplasmic antibodies measurementOrdered By: Jb Wood on 12-08-2022 Neutrophil cytoplasmic Ab.perinuclear.atypical IF (S) [Titer] <1:20 titer Neg:<1:20 [facility] Comment on above: The atypical pANCA p attern has been observed in asignificant percentage of patients with ulcerative colitis,primary sclerosing cholangitis and autoimmune hepatitis.Performed at: [facility] [address] [id number] Director: Mick Bradley PhD, Phone: [phone] at: [facility] [address] [id number] Director: Payam Ervin MD, Phone: [phone] Basophil percentageOrdered B y: Jb Wood on 12-08-2022 Basophil percentage < 0.2 AI 0.0-0.9 [facility] Basophils/100 WBC (Bld) 0.6 % 0-1 [facility] Bilirubin [Mass/Vol] 0.40 mg/dL 0.20-1.00 [facility] Comment on above: For patients on eltr ombopag therapy, use of Dimension Gunlock TBIL is not recommended. Chloride [Moles/Vol] 96 mmol/L 98-107 [facility] Eosinophils/100 WBC (Bld) 0.4 % 0-5 [facility] Glucose [Mass/Vol] 119 mg/dL 74-106 [facility] Comment on above: Fasting Glucose resu lt from 100 to 125 mg/dL suggests IMPAIRED HOMEOSTASIS per A.D.A. criteria. LDH [Catalytic activity/Vol] 185 U/L 84-246 [facility] Neutrophils (Bld) [#/Vol] 6.4 10*3/uL 2.0-7.7 [facility] Neutrophils/100 WBC (Bld) 79.3 % 47-70 [facility] Potassium [Moles/Vol] 3.2 mmol/L 3.5-5.1 [facility] Protein [Mass/Vol] 6.8 g/dL 6.4-8.2 [facility] Sodium [Moles/Vol] 135 mmol/L 136-145 [facility] WBC (Bld) [#/Vol] 8.1 10*3/uL 4.4-11.0 [facility] Blood erythrocytes count (nu mber/volume)Ordered By: Jb Wood on 12-08-2022 RBC (Bld) [#/Vol] 4.02 10*6/uL 4.2-5.4 [facility] Blood hemoglobin measurement (mass/volume)Ordered By: Jb Wood on 12-08-2022 Hemoglobin (Bld) [Mass/Vol] 12.3 g/dL 12.0-15. 0 [facility] Blood lymphocytes/100 leukoc ytesOrdered By: Jb Wood on 12-08-2022 Lymphocytes/100 WBC (Bld) 12.4 % 19-41 [facility] Blood monocytes/100 leukocyt esOrdered By: Jb Wood on 12-08-2022 Monocytes/100 WBC (Bld) 6.8 % 0-10 [facility] Blood platelet mean volumeOr dered By: Jb Wood on 12-08-2022 Platelet mean volume (Bld) [Entitic vol] 10.0 fL 6.2-12.0 [facility] Determination of erythrocyte mean corpuscular volume (MCV)Ordered By: Jb Wood on 12-08-2022 MCV (RBC) [Entitic vol] 95.5 fL 81-99 [facility] Erythrocyte sedimentation ra teOrdered By: Jb Wood on 12-08-2022 ESR (Bld) [Velocity] 25 mm/h 0-30 [facility] Hematocrit Auto (Bld) [Volum e fraction]Ordered By: Jb Wood on 12-08-2022 Hematocrit (Bld) [Volume fraction] 38.4 % 37-47 [facility] Interpretation of serum or p lasma protein pattern by immunofixation (narrative resultOrdered By: Jb Wood on 12-08-2022 Protein Fractions Immunofixation Derek [Interp] See comment [facility] Comment on above: Result: Not Observed Laboratory - Chemistry and C hemistry - challengeOrdered By: Jb Wood on 12-08-2022 ALP [Catalytic activity/Vol] 65 U/L 45-117 [facility] ALT [Catalytic activity/Vol] 21 U/L 13-56 [facility] CO2 [Moles/Vol] 30.0 mmol/L 21.0-32.0 [facility] Globulin (S) [Mass/Vol] 3.9 g/dL 2.2-4.2 [facility] Urea nitrogen/Creatinine [Mass ratio] 18.8 mg/mg 10-20 [facility] Laboratory - Hematology and Cell countsOrdered By: Jb Wood on 12-08-2022 Erythrocyte distribution width (RBC) [Entitic vol] 46.3 fL 35.1-43.9 [facility] Erythrocyte distribution width (RBC) [Ratio] 13.2 % 11.6-14.6 [facility] Immature granulocytes/100 WBC (Bld) 0.500 % 0.0-0.9 [facility] Comment on above: IG% - Immature Granu locytes (promyelocytes, myelocytes and metamyelocytes) > 1% indicates that a LEFT SHIFT is Present. MCH (RBC) [Entitic mass] 30.6 pg 27.0-32.0 [facility] Nucleated RBC/100 WBC (Bld) [Ratio] 0 % 0-5 [facility] MCHC Auto (RBC) [Mass/Vol]Or dered By: Jb Wood on 12-08-2022 MCHC (RBC) [Mass/Vol] 32.0 g/dL 32-36 [facility] No Panel InformationOrdered By: Jb Wood on 12-08-2022 Addendum Document Comment . [facility] Comment on above: Protein electrophore sis scan will follow via computer,mail, or jewelry engraver delivery. Centromere B Antibody <0.2 AI 0.0-0.9 [facility] Endomysial IgA Antibody Negative Negative [facility] Estimated GFR (MDRD) Amer 114 mL/min >60 [facility] Comment on above: GFR Calc Estimated GFR (MDRD) Non-Af Amer 94 mL/min >60 [facility] Comment on above: Non- GFR Calc Immunoglobulin E 19 IU/mL 6-495 [facility] Miscellaneous Test See comment [facility] Comment on above: TEST RESULT LIMITSIB D Expanded Panel Jameel 7 units 0-50 Negative <45 Equivocal 45 - 50 Positive >50 ACCA 12 units 0-90 Negative <80 Equivocal 80 - 90 Positive >90 ALCA 5 units 0-60 Negative <55 Equivocal 55 - 60 Positive >60 AMCA 10 units 0-100 Negative < 90 Equivocal 90 - 100 Positive >100 This test was developed and its performance characteristics [facility] It has not been cleared or approved by the Food and Drug Administration. The FDA has determined that such clearance or approval is not necessary.Atypical pANCA Negative Negative Comments Pattern is not suggestive of Inflammatory Bowel Disease TESTING PERFORMED AT [facility]. ORIGINAL REPORT ON FILE IN LAB CONTAINS ADDITIONAL TEST SITE INFORMATION. RESEARCH & ANALYTICS MANAGER Antibody <0.2 AI 0.0-0.9 [facility] Platelets bldOrdered By: Lui Wood on 12-08-2022 Platelets (Bld) [#/Vol] 392 10*3/uL 150-450 [facility] Serum DNA double strand anti body assay (units/volume)Ordered By: Jb Wood on 12-08-2022 DNA double strand Ab Qn (S) [IU]/mL 0-9 [facility] Comment on above: Negative <5 Equivoca l 5 - 9 Positive >9 Serum IgA measurement (units /volume)Ordered By: Jb Wood on 12-08-2022 IgA Qn (S) 210 mg/dL 64-422 [facility] Comment on above: Performed at: [facility] [address] [id number] Director: Mick Bradley PhD, Phone: [phone] Serum Kerry-1 antibody assay (u nits/volume)Ordered By: Jb Wood on 12-08-2022 Kerry-1 extractable nuclear Ab Qn (S) <0.2 AI 0.0-0.9 [facility] Serum Scl-70 extractable nuc lear antibody assay (units/volume)Ordered By: Jb Wood on 12-08-2022 SCL-70 extractable nuclear Ab Qn (S) <0.2 AI 0.0-0.9 [facility] Serum Benito extractable nucl ear antibody detectionOrdered By: Jb Wood on 12-08-2022 Benito extractable nuclear Ab Ql (S) <0.2 AI 0.0-0.9 [facility] Serum [id number] measu rement by electrophoresisOrdered By: Jb Wood on 12-08-2022 Alpha 1 globulin Elph [Mass/Vol] 0.3 g/dL 0.0-0.4 [facility] Alpha 1 globulin Elph [Mass/Vol] 1.1 g/dL 0.4-1.0 [facility] Serum classic neutrophil cyt oplasmic antibody assay (units/volume)Ordered By: Jb Wood on 12-08-2022 Neutrophil cytoplasmic Ab.classic Qn (S) <1:20 titer Neg:<1:20 [facility] Serum globulin measurement ( mass/volume)Ordered By: Jb Wood on 12-08-2022 Globulin (S) [Mass/Vol] 3.3 g/dL 2.2-3.9 [facility] Serum or plasma C reactive p rotein measurement (mass/volume)Ordered By: Jb Wood on 12-08-2022 CRP [Mass/Vol] 3.82 mg/L 0.0-3.0 [facility] Comment on above: C-Reactive Protein ( CRP) provides useful information for thediagnosis, therapy and monitoring of inflammatory processesand associated diseases. For the evaluation of Relative Riskfor Cardiovascular Disease, a High Sensitivity CRP (HSCRP)should be ordered. Serum or plasma IgA measurem ent (mass/volume)Ordered By: Jb Wood on 12-08-2022 IgA [Mass/Vol] 202 mg/dL 64-422 [facility] Serum or plasma IgG measurem ent (mass/volume)Ordered By: Jb Wood on 12-08-2022 IgG [Mass/Vol] 819 mg/dL [phone] [facility] Serum or plasma IgM measurem ent (mass/volume)Ordered By: Jb Wood on 12-08-2022 IgM [Mass/Vol] 71 mg/dL 26-217 [facility] Serum or plasma albumin alissa urement (mass/volume)Ordered By: Jb Wood on 12-08-2022 Albumin [Mass/Vol] 2.9 g/dL 3.2-5.0 [facility] Serum or plasma albumin/glob ulin mass ratioOrdered By: Jb Wood on 12-08-2022 Albumin/Globulin [Mass ratio] 0.7 {ratio} 0.9-2.4 [facility] Serum or plasma beta globuli n measurement by electrophoresis (mass/volume)Ordered By: Jb Wood on 12-08-2022 Beta globulin Elph [Mass/Vol] 1.1 g/dL 0.7-1.3 [facility] Serum or plasma calcium alissa urement (mass/volume)Ordered By: Jb Wood on 12-08-2022 Calcium [Mass/Vol] 8.8 mg/dL 8.5-10.1 [facility] Serum or plasma creatinine m easurement (mass/volume)Ordered By: Jb Wood on 12-08-2022 Creatinine [Mass/Vol] 0.64 mg/dL 0.55-1.02 [facility] Comment on above: The validity of the calculated GFR & GFRAA in patients over 70 years has not been determined. Clinical correlation is essential. Serum or plasma gamma globul in measurement by electrophoresis (mass/volume)Ordered By: Jb Wood on 12-08-2022 Gamma globulin Elph [Mass/Vol] 0.8 g/dL 0.4-1.8 [facility] Serum or plasma immunoelectr ophoresis interpretation (nominal result)Ordered By: Jb Wood on 12-08-2022 Interpretation IEP [Interp] Comment . [facility] Comment on above: No monoclonality det ected. Serum or plasma urea nitroge n measurement (mass/volume)Ordered By: Jb Wood on 12-08-2022 Urea nitrogen [Mass/Vol] 12 mg/dL 7-18 [facility] Serum perinuclear neutrophil cytoplasmic antibody titer by immunofluorescenceOrdered By: Jb Wood on 12-08-2022 Neutrophil cytoplasmic Ab.perinuclear IF (S) [Titer] <1:20 titer Neg:<1:20 [facility] Comment on above: The presence of posi tive fluorescence exhibiting P-ANCA orC-ANCA patterns alone is not specific for the diagnosis ofWegener's Granulomatosis (WG) or microscopic polyangiitis.Decisions about treatment should not be based solely onANCA IFA results. The [employer] ANCA Group Consensusrecommends follow up testing of positive sera with both DE-3 and MPO-ANCA enzyme immunoassays. As many as 5% serumsamples are positive only by EIA. Ref. AM J Clin [id number];111:507-513. Serum tissue transglutaminas e IgA antibody assay (units/volume)Ordered By: Jb Wood on 12-08-2022 tTG IgA Qn (S) <2 U/mL 0-3 [facility] Comment on above: Negative 0 - 3 Weak Positive 4 - 10 Positive >10 Tissue Transglutaminase (tTG) has been identified as the endomysial antigen. Studies have demonstr- ated that endomysial IgA antibodies have over 99% specificity for gluten sensitive enteropathy. Thin prep Papanicolaou smear with manual screeningOrdered By: Jb Wood on 12-08-2022 Thin prep Papanicolaou smear with manual screening 12 U/L 15-37 [facility] Thin prep Papanicolaou smear with manual screening 9 5-15 [facility] Thin prep Papanicolaou smear with manual screening 1.0 0.7-1.7 [facility] Total protein bloodOrdered B y: Jb Wood on 12-08-2022 Protein [Mass/Vol] 6.5 g/dL 6.0-8.5 [facility] Basophil percentageOrdered B y: Dr. Fabian on 11-13-2022 Bilirubin [Mass/Vol] 0.30 mg/dL 0.20-1.00 [facility] Comment on above: For patients on eltr ombopag therapy, use of Dimension Gunlock TBIL is not recommended. Chloride [Moles/Vol] 98 mmol/L 98-107 [facility] Glucose [Mass/Vol] 161 mg/dL 74-106 [facility] Comment on above: Fasting Glucose resu lt greater than or equal to 126 mg/dL suggests DIABETES MELLITUS per A.D.A. criteria. Potassium [Moles/Vol] 3.0 mmol/L 3.5-5.1 [facility] Protein [Mass/Vol] 7.5 g/dL 6.4-8.2 [facility] Sodium [Moles/Vol] 137 mmol/L 136-145 [facility] Laboratory - Chemistry and C hemistry - challengeOrdered By: Dr. Fabian on 11-13-2022 ALP [Catalytic activity/Vol] 71 U/L 45-117 [facility] ALT [Catalytic activity/Vol] 36 U/L 13-56 [facility] CO2 [Moles/Vol] 30.0 mmol/L 21.0-32.0 [facility] Globulin (S) [Mass/Vol] 4.7 g/dL 2.2-4.2 [facility] Urea nitrogen/Creatinine [Mass ratio] 18.9 mg/mg 10-20 [facility] No Panel InformationOrdered By: Dr. Fabian on 11-13-2022 Endomysial IgA Antibody Negative Negative [facility] Estimated GFR (MDRD) Amer 89 mL/min >60 [facility] Comment on above: GFR Calc Estimated GFR (MDRD) Non-Af Amer 73 mL/min >60 [facility] Comment on above: Non- GFR Calc Vitamin D 25-Hydroxy 24.5 ng/mL [facility] Comment on above: Vitamin D 25(OH) Sta tus Range Deficiency <20 ng/mL (50nmol/L) Insufficiency 20 - 30 ng/mL (50 - 75 nmol/L) Sufficiency 30 - 100 ng/mL (75 - 250 nmol/L) Toxicity >100 ng/mL (>250 nmol/L) Serum IgA measurement (units /volume)Ordered By: Dr. Fabian on 11-13-2022 IgA Qn (S) 227 mg/dL 64-422 [facility] Comment on above: Performed at: [address] [id number] Director: Mick Bradley PhD, Phone: [phone] Serum or plasma albumin alissa urement (mass/volume)Ordered By: Dr. Fabian on 11-13-2022 Albumin [Mass/Vol] 2.8 g/dL 3.2-5.0 [facility] Serum or plasma albumin/glob ulin mass ratioOrdered By: Dr. Fabian on 11-13-2022 Albumin/Globulin [Mass ratio] 0.6 {ratio} 0.9-2.4 [facility] Serum or plasma calcium alissa urement (mass/volume)Ordered By: Dr. Fabian on 11-13-2022 Calcium [Mass/Vol] 9.3 mg/dL 8.5-10.1 [facility] Serum or plasma creatinine m easurement (mass/volume)Ordered By: Dr. Fabian on 11-13-2022 Creatinine [Mass/Vol] 0.79 mg/dL 0.55-1.02 [facility] Comment on above: The validity of the calculated GFR & GFRAA in patients over 70 years has not been determined. Clinical correlation is essential. Serum or plasma urea nitroge n measurement (mass/volume)Ordered By: Dr. Fabian on 11-13-2022 Urea nitrogen [Mass/Vol] 15 mg/dL 7-18 [facility] Serum tissue transglutaminas e IgA antibody assay (units/volume)Ordered By: Dr. Fabian on 11-13-2022 tTG IgA Qn (S) <2 U/mL 0-3 [facility] Comment on above: Negative 0 - 3 Weak Positive 4 - 10 Positive >10 Tissue Transglutaminase (tTG) has been identified as the endomysial antigen. Studies have demonstr- ated that endomysial IgA antibodies have over 99% specificity for gluten sensitive enteropathy. Thin prep Papanicolaou smear with manual screeningOrdered By: Dr. Fabian on 11-13-2022 Thin prep Papanicolaou smear with manual screening 26 U/L 15-37 [facility] Thin prep Papanicolaou smear with manual screening 9 5-15 [facility] Absolute lymphocyte countOrd ered By: Dr. Irwin on 11-10-2022 Lymphocytes Auto (Unsp spec) [#/Vol] 2.31 10*3/uL 0.83-4.51 [facility] Basophil percentageOrdered B y: Dr. Irwin on 11-10-2022 Basophil percentage 0 SEEN /hpf 0-5 [facility] Basophils/100 WBC (Bld) 0.6 % 0-1 [facility] Bilirubin [Mass/Vol] 0.30 mg/dL 0.20-1.00 [facility] Comment on above: For patients on eltr ombopag therapy, use of Dimension Gunlock TBIL is not recommended. Chloride [Moles/Vol] 97 mmol/L 98-107 [facility] Eosinophils/100 WBC (Bld) 1.4 % 0-5 [facility] Glucose [Mass/Vol] 102 mg/dL 74-106 [facility] Comment on above: Fasting Glucose resu lt from 100 to 125 mg/dL suggests IMPAIRED HOMEOSTASIS per A.D.A. criteria. Neutrophils (Bld) [#/Vol] 6.2 10*3/uL 2.0-7.7 [facility] Neutrophils/100 WBC (Bld) 62.1 % 47-70 [facility] Potassium [Moles/Vol] 2.6 mmol/L 3.5-5.1 [facility] Comment on above: Critical Result(s) C alled at: 11:54:29 11/10/2022 by: Toño Rivera RN (ER). Results read back by same. Protein [Mass/Vol] 6.8 g/dL 6.4-8.2 [facility] Sodium [Moles/Vol] 138 mmol/L 136-145 [facility] WBC (Bld) [#/Vol] 10.0 10*3/uL 4.4-11.0 [facility] Bilirubin Test strip Ql (U)O rdered By: Dr. Irwin on 11-10-2022 Bilirubin Ql (U) Negative Negative [facility] Blood erythrocytes count (nu mber/volume)Ordered By: Dr. Irwin on 11-10-2022 RBC (Bld) [#/Vol] 3.82 10*6/uL 4.2-5.4 [facility] Blood hemoglobin measurement (mass/volume)Ordered By: Dr. Irwin on 11-10-2022 Hemoglobin (Bld) [Mass/Vol] 11.7 g/dL 12.0-15. 0 [facility] Blood lymphocytes/100 leukoc ytesOrdered By: Dr. Irwin on 11-10-2022 Lymphocytes/100 WBC (Bld) 23.1 % 19-41 [facility] Blood monocytes/100 leukocyt esOrdered By: Dr. Irwin on 11-10-2022 Monocytes/100 WBC (Bld) 11.8 % 0-10 [facility] Blood platelet mean volumeOr dered By: Dr. Irwin on 11-10-2022 Platelet mean volume (Bld) [Entitic vol] 9.1 fL 6.2-12.0 [facility] Determination of erythrocyte mean corpuscular volume (MCV)Ordered By: Dr. Irwin on 11-10-2022 MCV (RBC) [Entitic vol] 95.5 fL 81-99 [facility] Direct bilirubinOrdered By: Dr. Irwin on 11-10-2022 Bilirubin.direct [Mass/Vol] 0.10 mg/dL 0.00-0.3 0 [facility] Hematocrit Auto (Bld) [Volum e fraction]Ordered By: Dr. Irwin on 11-10-2022 Hematocrit (Bld) [Volume fraction] 36.5 % 37-47 [facility] Ketones Test strip Ql (U)Ord ered By: Dr. Irwin on 11-10-2022 Ketones Ql (U) Negative Negative [facility] Laboratory - Chemistry and C hemistry - challengeOrdered By: Dr. Irwin on 11-10-2022 ALP [Catalytic activity/Vol] 63 U/L 45-117 [facility] ALT [Catalytic activity/Vol] 23 U/L 13-56 [facility] CO2 [Moles/Vol] 31.0 mmol/L 21.0-32.0 [facility] Globulin (S) [Mass/Vol] 4.4 g/dL 2.2-4.2 [facility] Urea nitrogen/Creatinine [Mass ratio] 16.9 mg/mg 10-20 [facility] Laboratory - Hematology and Cell countsOrdered By: Dr. Irwin on 11-10-2022 Erythrocyte distribution width (RBC) [Entitic vol] 42.5 fL 35.1-43.9 [facility] Erythrocyte distribution width (RBC) [Ratio] 12.2 % 11.6-14.6 [facility] Immature granulocytes/100 WBC (Bld) 1.000 % 0.0-0.9 [facility] Comment on above: IG% - Immature Granu locytes (promyelocytes, myelocytes and metamyelocytes) > 1% indicates that a LEFT SHIFT is Present. MCH (RBC) [Entitic mass] 30.6 pg 27.0-32.0 [facility] Nucleated RBC/100 WBC (Bld) [Ratio] 0 % 0-5 [facility] MCHC Auto (RBC) [Mass/Vol]Or dered By: Dr. Irwin on 11-10-2022 MCHC (RBC) [Mass/Vol] 32.1 g/dL 32-36 [facility] Mucus LM Ql (Urine sed)Order ed By: Dr. Irwin on 11-10-2022 Mucus Ql (Urine sed) 0 SEEN /hpf [facility] Nitrite Test strip Ql (U)Ord ered By: Dr. Irwin on 11-10-2022 Nitrite Ql (U) Negative Negative [facility] No Panel InformationOrdered By: Dr. Irwin on 11-10-2022 Estimated Creatinine Clearance Calc 33.02 ml/min [facility] Estimated GFR (MDRD) Amer 72 mL/min >60 [facility] Comment on above: GFR Calc Estimated GFR (MDRD) Non-Af Amer 60 mL/min >60 [facility] Comment on above: Non- GFR Calc Platelets bldOrdered By: Dr. Irwin on 11-10-2022 Platelets (Bld) [#/Vol] 443 10*3/uL 150-450 [facility] Protein Test strip Ql (U)Ord ered By: Dr. Irwin on 11-10-2022 Protein Ql (U) Negative Negative [facility] Serum or plasma albumin alissa urement (mass/volume)Ordered By: Dr. Irwin on 11-10-2022 Albumin [Mass/Vol] 2.4 g/dL 3.2-5.0 [facility] Serum or plasma calcium alissa urement (mass/volume)Ordered By: Dr. Irwin on 11-10-2022 Calcium [Mass/Vol] 8.5 mg/dL 8.5-10.1 [facility] Serum or plasma creatinine m easurement (mass/volume)Ordered By: Dr. Irwin on 11-10-2022 Creatinine [Mass/Vol] 0.94 mg/dL 0.55-1.02 [facility] Comment on above: The validity of the calculated GFR & GFRAA in patients over 70 years has not been determined. Clinical correlation is essential. Serum or plasma urea nitroge n measurement (mass/volume)Ordered By: Dr. Irwin on 11-10-2022 Urea nitrogen [Mass/Vol] 16 mg/dL 7-18 [facility] Squamous epithelial cells de tection in urine sediment by light microscopyOrdered By: Dr. Irwin on 11-10-2022 Epithelial cells.squamous LM Ql (Urine sed) 0-5 SEEN /hpf 5-10 [facility] Thin prep Papanicolaou smear with manual screeningOrdered By: Dr. Irwin on 11-10-2022 Thin prep Papanicolaou smear with manual screening 15 U/L 15-37 [facility] Thin prep Papanicolaou smear with manual screening 10 5-15 [facility] Urine blood detectionOrdered By: Dr. Irwin on 11-10-2022 RBC Ql (U) Negative Negative [facility] RBC Ql (U) 0 SEEN /hpf 0-5 [facility] Urine clarityOrdered By: Dr. Irwin on 11-10-2022 Clarity (U) Clear Clear [facility] Urine color determinationOrd ered By: Dr. Irwin on 11-10-2022 Color (U) Yellow Yellow [facility] Urine glucose detectionOrder ed By: Dr. Irwin on 11-10-2022 Glucose Ql (U) Normal mg/dl Normal [facility] Urine leukocyte esterase det ection by dipstickOrdered By: Dr. Irwin on 11-10-2022 Leukocyte esterase Test strip Ql (U) 100 /ul Negative [facility] Urine pHOrdered By: Dr. Stefany house on 11-10-2022 pH (U) 7.0 [pH] 5.0 - 8.0 [facility] Urine sediment bacteria coun t by microscopy (number/high power field)Ordered By: Dr. Irwin on 11-10-2022 Bacteria LM.HPF (Urine sed) [#/Area] 0 /[HPF] None Seen [facility] Urine sediment renal epithel ial cell count by microscopy (number/high power field)Ordered By: Dr. Irwin on 11-10-2022 Epithelial cells.renal LM.HPF (Urine sed) [#/Area] 0 /[HPF] 0-5 [facility] Urine specific gravity measu rementOrdered By: Dr. Irwin on 11-10-2022 Specific gravity (U) [Rel density] 1.005 1.002-1.03 0 [facility] Urobilinogen Auto test strip Ql (U)Ordered By: Dr. Irwin on 11-10-2022 Urobilinogen Ql (U) Normal mg/dl Normal [facility] Absolute lymphocyte countOrd ered By: Dr. Gibson on 11-01-2022 Lymphocytes Auto (Unsp spec) [#/Vol] 1.90 10*3/uL 0.83-4.51 [facility] Absolute lymphocyte countOrd ered By: Dr. Fabian on 11-01-2022 Lymphocytes Auto (Unsp spec) [#/Vol] 1.93 10*3/uL 0.83-4.51 [facility] Basophil percentageOrdered B y: Dr. Gibson on 11-01-2022 Basophils/100 WBC (Bld) 0.9 % 0-1 [facility] Chloride [Moles/Vol] 101 mmol/L 98-107 [facility] Eosinophils/100 WBC (Bld) 1.7 % 0-5 [facility] Glucose [Mass/Vol] 120 mg/dL 74-106 [facility] Comment on above: Fasting Glucose resu lt from 100 to 125 mg/dL suggests IMPAIRED HOMEOSTASIS per A.D.A. criteria. Neutrophils (Bld) [#/Vol] 2.8 10*3/uL 2.0-7.7 [facility] Neutrophils/100 WBC (Bld) 43.8 % 47-70 [facility] Potassium [Moles/Vol] 2.7 mmol/L 3.5-5.1 [facility] Comment on above: Critical Result(s) C alled at: 16:30:16 11/01/2022 by: Gillian Garrett to [facility]. Results read back by same. Sodium [Moles/Vol] 139 mmol/L 136-145 [facility] WBC (Bld) [#/Vol] 6.4 10*3/uL 4.4-11.0 [facility] Basophil percentageOrdered B y: Dr. Fabian on 11-01-2022 Basophils/100 WBC (Bld) 1.1 % 0-1 [facility] Bilirubin [Mass/Vol] 0.50 mg/dL 0.20-1.00 [facility] Comment on above: For patients on eltr ombopag therapy, use of Dimension [place] TBIL is not recommended. Chloride [Moles/Vol] 98 mmol/L 98-107 [facility] Eosinophils/100 WBC (Bld) 1.4 % 0-5 [facility] Glucose [Mass/Vol] 119 mg/dL 74-106 [facility] Comment on above: Fasting Glucose resu lt from 100 to 125 mg/dL suggests IMPAIRED HOMEOSTASIS per A.D.A. criteria. Neutrophils (Bld) [#/Vol] 2.4 10*3/uL 2.0-7.7 [facility] Neutrophils/100 WBC (Bld) 42.3 % 47-70 [facility] Potassium [Moles/Vol] 2.4 mmol/L 3.5-5.1 [facility] Protein [Mass/Vol] 7.4 g/dL 6.4-8.2 [facility] Sodium [Moles/Vol] 136 mmol/L 136-145 [facility] WBC (Bld) [#/Vol] 5.6 10*3/uL 4.4-11.0 [facility] Blood erythrocytes count (nu mber/volume)Ordered By: Dr. Gibson on 11-01-2022 RBC (Bld) [#/Vol] 4.28 10*6/uL 4.2-5.4 [facility] Blood erythrocytes count (nu mber/volume)Ordered By: Dr. Fabian on 11-01-2022 RBC (Bld) [#/Vol] 4.15 10*6/uL 4.2-5.4 [facility] Blood hemoglobin measurement (mass/volume)Ordered By: Dr. Gibson on 11-01-2022 Hemoglobin (Bld) [Mass/Vol] 13.0 g/dL 12.0-15. 0 [facility] Blood hemoglobin measurement (mass/volume)Ordered By: Dr. Fabian on 11-01-2022 Hemoglobin (Bld) [Mass/Vol] 12.6 g/dL 12.0-15. 0 [facility] Blood lymphocytes/100 leukoc ytesOrdered By: Dr. Gibson on 11-01-2022 Lymphocytes/100 WBC (Bld) 29.5 % - [facility] Blood lymphocytes/100 leukoc ytesOrdered By: Dr. Fabian on 11-01-2022 Lymphocytes/100 WBC (Bld) 34.6 % 19-41 [facility] Blood manual differential co mment interpretation (narrative result)Ordered By: Dr. Gibson on 11-01-2022 Manual differential comment Derek (Bld) [Interp] SCANNED [facility] Blood monocytes/100 leukocyt esOrdered By: Dr. Gibson on 11-01-2022 Monocytes/100 WBC (Bld) 23.8 % 0-10 [facility] Blood monocytes/100 leukocyt esOrdered By: Dr. Fabian on 11-01-2022 Monocytes/100 WBC (Bld) 20.4 % 0-10 [facility] Blood platelet mean volumeOr dered By: Dr. Gibson on 11-01-2022 Platelet mean volume (Bld) [Entitic vol] 9.7 fL 6.2-12.0 [facility] Blood platelet mean volumeOr dered By: Dr. Fabian on 11-01-2022 Platelet mean volume (Bld) [Entitic vol] 10.1 fL 6.2-12.0 [facility] Clostridium difficile detect ion by polymerase chain reactionOrdered By: Dr. Fabian on 11-01-2022 C. difficile DNA HAZEL+probe Ql (Unsp spec) [facility] Determination of erythrocyte mean corpuscular volume (MCV)Ordered By: Dr. Gibson on 11-01-2022 MCV (RBC) [Entitic vol] 93.9 fL 81-99 [facility] Determination of erythrocyte mean corpuscular volume (MCV)Ordered By: Dr. Fabian on 11-01-2022 MCV (RBC) [Entitic vol] 93.3 fL 81-99 [facility] EP PanelOrdered By: Dr. Lupillo alexander on 11-01-2022 Gastrointestinal pathogens panel HAZEL+probe (Stl) [facility] Giardia lamblia ag stool EIA Ordered By: Dr. Fabian on 11-01-2022 G. lamblia Ag IA Ql (Stl) Negative Negative [facility] Comment on above: Performed at: [address] Director: Mick rBadley PhD, Phone: [phone] Hematocrit Auto (Bld) [Volum e fraction]Ordered By: Dr. Gibson on 11-01-2022 Hematocrit (Bld) [Volume fraction] 40.2 % 37-47 [facility] Hematocrit Auto (Bld) [Volum e fraction]Ordered By: Dr. Fabian on 11-01-2022 Hematocrit (Bld) [Volume fraction] 38.7 % 37-47 [facility] Laboratory - Chemistry and C hemistry - challengeOrdered By: Dr. Gibson on 11-01-2022 CO2 [Moles/Vol] 29.0 mmol/L 21.0-32.0 [facility] Magnesium [Mass/Vol] 2.3 mg/dL 1.6-2.6 [facility] Urea nitrogen/Creatinine [Mass ratio] 18.5 mg/mg 10-20 [facility] Laboratory - Chemistry and C hemistry - challengeOrdered By: Dr. Fabian on 11-01-2022 ALP [Catalytic activity/Vol] 62 U/L 45-117 [facility] ALT [Catalytic activity/Vol] 22 U/L 13-56 [facility] CO2 [Moles/Vol] 31.0 mmol/L 21.0-32.0 [facility] Globulin (S) [Mass/Vol] 4.5 g/dL 2.2-4.2 [facility] Magnesium [Mass/Vol] 2.3 mg/dL 1.6-2.6 [facility] Urea nitrogen/Creatinine [Mass ratio] 19.3 mg/mg 10-20 [facility] Laboratory - Hematology and Cell countsOrdered By: Dr. Gibson on 11-01-2022 Erythrocyte distribution width (RBC) [Entitic vol] 41.5 fL 35.1-43.9 [facility] Erythrocyte distribution width (RBC) [Ratio] 12.1 % 11.6-14.6 [facility] Immature granulocytes/100 WBC (Bld) 0.300 % 0.0-0.9 [facility] Comment on above: IG% - Immature Granu locytes (promyelocytes, myelocytes and metamyelocytes) > 1% indicates that a LEFT SHIFT is Present. MCH (RBC) [Entitic mass] 30.4 pg 27.0-32.0 [facility] Nucleated RBC/100 WBC (Bld) [Ratio] 0 % 0-5 [facility] Laboratory - Hematology and Cell countsOrdered By: Dr. Fabian on 11-01-2022 Erythrocyte distribution width (RBC) [Entitic vol] 41.4 fL 35.1-43.9 [facility] Erythrocyte distribution width (RBC) [Ratio] 12.1 % 11.6-14.6 [facility] Immature granulocytes/100 WBC (Bld) 0.200 % 0.0-0.9 [facility] Comment on above: IG% - Immature Granu locytes (promyelocytes, myelocytes and metamyelocytes) > 1% indicates that a LEFT SHIFT is Present. MCH (RBC) [Entitic mass] 30.4 pg 27.0-32.0 [facility] Nucleated RBC/100 WBC (Bld) [Ratio] 0.5 % 0-5 [facility] MCHC Auto (RBC) [Mass/Vol]Or dered By: Dr. Gibson on 11-01-2022 MCHC (RBC) [Mass/Vol] 32.3 g/dL 32-36 [facility] MCHC Auto (RBC) [Mass/Vol]Or dered By: Dr. Fabian on 11-01-2022 MCHC (RBC) [Mass/Vol] 32.6 g/dL 32-36 [facility] No Panel InformationOrdered By: Dr. Gibson on 11-01-2022 Estimated Creatinine Clearance Calc 23.56 ml/min [facility] Estimated GFR (MDRD) Amer 50 mL/min >60 [facility] Comment on above: GFR Calc Estimated GFR (MDRD) Non-Af Amer 41 mL/min >60 [facility] Comment on above: Non- GFR Calc No Panel InformationOrdered By: Dr. Fabian on 11-01-2022 Stool Calprotectin 339 ug/g 0-120 [facility] Comment on above: Concentration Interp retation Follow-Up<16 - 50 ug/g Normal None>50 -120 ug/g Borderline Re-evaluate in 4-6 weeks >120 ug/g Abnormal Repeat as clinically indicatedPerformed at: - [facility] [id number] Director: Payam Ervin MD, Phone: [phone] Estimated GFR (MDRD) Amer 79 mL/min >60 [facility] Comment on above: GFR Calc Estimated GFR (MDRD) Non-Af Amer 65 mL/min >60 [facility] Comment on above: Non- GFR Calc Platelets bldOrdered By: Dr. Gibson on 11-01-2022 Platelets (Bld) [#/Vol] 392 10*3/uL 150-450 [facility] Platelets bldOrdered By: Dr. Fabian on 11-01-2022 Platelets (Bld) [#/Vol] 423 10*3/uL 150-450 [facility] Serum or plasma albumin alissa urement (mass/volume)Ordered By: Dr. Fabian on 11-01-2022 Albumin [Mass/Vol] 2.9 g/dL 3.2-5.0 [facility] Serum or plasma albumin/glob ulin mass ratioOrdered By: Dr. Fabian on 11-01-2022 Albumin/Globulin [Mass ratio] 0.6 {ratio} 0.9-2.4 [facility] Serum or plasma calcium alissa urement (mass/volume)Ordered By: Dr. Gibson on 11-01-2022 Calcium [Mass/Vol] 8.9 mg/dL 8.5-10.1 [facility] Serum or plasma calcium alissa urement (mass/volume)Ordered By: Dr. Fabian on 11-01-2022 Calcium [Mass/Vol] 9.1 mg/dL 8.5-10.1 [facility] Serum or plasma creatinine m easurement (mass/volume)Ordered By: Dr. Gibson on 11-01-2022 Creatinine [Mass/Vol] 1.30 mg/dL 0.55-1.02 [facility] Comment on above: The validity of the calculated GFR & GFRAA in patients over 70 years has not been determined. Clinical correlation is essential. Serum or plasma creatinine m easurement (mass/volume)Ordered By: Dr. Fabian on 11-01-2022 Creatinine [Mass/Vol] 0.88 mg/dL 0.55-1.02 [facility] Comment on above: The validity of the calculated GFR & GFRAA in patients over 70 years has not been determined. Clinical correlation is essential. Serum or plasma urea nitroge n measurement (mass/volume)Ordered By: Dr. Gibson on 11-01-2022 Urea nitrogen [Mass/Vol] 24 mg/dL 04-24 [facility] Serum or plasma urea nitroge n measurement (mass/volume)Ordered By: Dr. Fabian on 11-01-2022 Urea nitrogen [Mass/Vol] 17 mg/dL 04-24 [facility] Thin prep Papanicolaou smear with manual screeningOrdered By: Dr. Gibson on 11-01-2022 Thin prep Papanicolaou smear with manual screening 9 5- [facility] Thin prep Papanicolaou smear with manual screeningOrdered By: Dr. Fabian on 11-01-2022 Thin prep Papanicolaou smear with manual screening 16 U/L 15-37 [facility] Thin prep Papanicolaou smear with manual screening 7 5-15 [facility] Absolute lymphocyte countOrd ered By: Dr. Moyer on 07-07-2022 Lymphocytes Auto (Unsp spec) [#/Vol] 1.18 10*3/uL 0.83-4.51 [facility] Basophil percentageOrdered B y: Dr. Moyer on 07-07-2022 Basophil percentage 0-5 SEEN /hpf 0-5 [facility] Basophils/100 WBC (Bld) 0.6 % 0-1 [facility] Chloride [Moles/Vol] 94 mmol/L 98-107 [facility] Eosinophils/100 WBC (Bld) 0.9 % 0-5 [facility] Glucose [Mass/Vol] 120 mg/dL 74-106 [facility] Comment on above: Fasting Glucose resu lt from 100 to 125 mg/dL suggests IMPAIRED HOMEOSTASIS per A.D.A. criteria. Neutrophils (Bld) [#/Vol] 4.3 10*3/uL 2.0-7.7 [facility] Neutrophils/100 WBC (Bld) 64.3 % 47-70 [facility] Potassium [Moles/Vol] 3.4 mmol/L 3.5-5.1 [facility] Sodium [Moles/Vol] 131 mmol/L 136-145 [facility] WBC (Bld) [#/Vol] 6.6 10*3/uL 4.4-11.0 [facility] Bilirubin Test strip Ql (U)O rdered By: Dr. Moyer on 07-07-2022 Bilirubin Ql (U) Negative Negative [facility] Blood erythrocytes count (nu mber/volume)Ordered By: Dr. Moyer on 07-07-2022 RBC (Bld) [#/Vol] 4.51 10*6/uL 4.2-5.4 [facility] Blood hemoglobin measurement (mass/volume)Ordered By: Dr. Moyer on 07-07-2022 Hemoglobin (Bld) [Mass/Vol] 14.0 g/dL 12.0-15. 0 [facility] Blood lymphocytes/100 leukoc ytesOrdered By: Dr. Moyer on 07-07-2022 Lymphocytes/100 WBC (Bld) 17.9 % 19-41 [facility] Blood monocytes/100 leukocyt esOrdered By: Dr. Moyer on 07-07-2022 Monocytes/100 WBC (Bld) 16.1 % 0-10 [facility] Blood platelet mean volumeOr dered By: Dr. Moyer on 07-07-2022 Platelet mean volume (Bld) [Entitic vol] 9.6 fL 6.2-12.0 [facility] Determination of erythrocyte mean corpuscular volume (MCV)Ordered By: Dr. Moyer on 07-07-2022 MCV (RBC) [Entitic vol] 92.2 fL 81-99 [facility] Hematocrit Auto (Bld) [Volum e fraction]Ordered By: Dr. Moyer on 07-07-2022 Hematocrit (Bld) [Volume fraction] 41.6 % 37-47 [facility] Ketones Test strip Ql (U)Ord ered By: Dr. Moyer on 07-07-2022 Ketones Ql (U) Negative Negative [facility] Laboratory - Chemistry and C hemistry - challengeOrdered By: Dr. Moyer on 07-07-2022 CO2 [Moles/Vol] 29.0 mmol/L 21.0-32.0 [facility] Urea nitrogen/Creatinine [Mass ratio] 13.0 mg/mg 10-20 [facility] Laboratory - Hematology and Cell countsOrdered By: Dr. Moyer on 07-07-2022 Erythrocyte distribution width (RBC) [Entitic vol] 40.0 fL 35.1-43.9 [facility] Erythrocyte distribution width (RBC) [Ratio] 11.9 % 11.6-14.6 [facility] Immature granulocytes/100 WBC (Bld) 0.200 % 0.0-0.9 [facility] Comment on above: IG% - Immature Granu locytes (promyelocytes, myelocytes and metamyelocytes) > 1% indicates that a LEFT SHIFT is Present. MCH (RBC) [Entitic mass] 31.0 pg 27.0-32.0 [facility] Nucleated RBC/100 WBC (Bld) [Ratio] 0 % 0-5 [facility] MCHC Auto (RBC) [Mass/Vol]Or dered By: Dr. Moyer on 07-07-2022 MCHC (RBC) [Mass/Vol] 33.7 g/dL 32-36 [facility] Mucus LM Ql (Urine sed)Order ed By: Dr. Moyer on 07-07-2022 Mucus Ql (Urine sed) 0 SEEN /hpf [facility] Nitrite Test strip Ql (U)Ord ered By: Dr. Moyer on 09-30-2022 Nitrite Ql (U) Negative Negative [facility] No Panel InformationOrdered By: Dr. Moyer on 07-07-2022 Estimated Creatinine Clearance Calc 34.64 ml/min [facility] Estimated GFR (MDRD) Amer 91 mL/min >60 [facility] Comment on above: GFR Calc Estimated GFR (MDRD) Non-Af Amer 76 mL/min >60 [facility] Comment on above: Non- GFR Calc Platelets bldOrdered By: Dr. Moyer on 07-07-2022 Platelets (Bld) [#/Vol] 225 10*3/uL 150-450 [facility] Protein Test strip Ql (U)Ord ered By: Dr. Moyer on 07-07-2022 Protein Ql (U) 30 mg/dl Negative [facility] Serum or plasma calcium alissa urement (mass/volume)Ordered By: Dr. Moyer on 07-07-2022 Calcium [Mass/Vol] 8.8 mg/dL 8.5-10.1 [facility] Serum or plasma creatinine m easurement (mass/volume)Ordered By: Dr. Moyer on 07-07-2022 Creatinine [Mass/Vol] 0.77 mg/dL 0.55-1.02 [facility] Comment on above: The validity of the calculated GFR & GFRAA in patients over 70 years has not been determined. Clinical correlation is essential. Serum or plasma urea nitroge n measurement (mass/volume)Ordered By: Dr. Moyer on 07-07-2022 Urea nitrogen [Mass/Vol] 10 mg/dL 7-18 [facility] Squamous epithelial cells de tection in urine sediment by light microscopyOrdered By: Dr. Moyer on 07-07-2022 Epithelial cells.squamous LM Ql (Urine sed) 0-5 SEEN /hpf 5-10 [facility] Thin prep Papanicolaou smear with manual screeningOrdered By: Dr. Moyer on 07-07-2022 Thin prep Papanicolaou smear with manual screening 8 5-15 [facility] Urine blood detectionOrdered By: Dr. Moyer on 07-07-2022 RBC Ql (U) 25 /ul Negative [facility] RBC Ql (U) 0-5 SEEN /hpf 0-5 [facility] Urine clarityOrdered By: Dr. Moyer on 07-07-2022 Clarity (U) Clear Clear [facility] Urine color determinationOrd ered By: Dr. Moyer on 07-07-2022 Color (U) Yellow Yellow [facility] Urine glucose detectionOrder ed By: Dr. Moyer on 07-07-2022 Glucose Ql (U) Normal mg/dl Normal [facility] Urine leukocyte esterase det ection by dipstickOrdered By: Dr. Moyer on 07-07-2022 Leukocyte esterase Test strip Ql (U) 100 /ul Negative [facility] Urine pHOrdered By: Dr. Karri benito on 07-07-2022 pH (U) 7.0 [pH] 5.0 - 8.0 [facility] Urine sediment bacteria coun t by microscopy (number/high power field)Ordered By: Dr. Moyer on 07-07-2022 Bacteria LM.HPF (Urine sed) [#/Area] 2 /[HPF] None Seen [facility] Urine specific gravity measu rementOrdered By: Dr. Moyer on 07-07-2022 Specific gravity (U) [Rel density] 1.010 1.002-1.03 0 [facility] Urobilinogen Auto test strip Ql (U)Ordered By: Dr. Moyer on 07-07-2022 Urobilinogen Ql (U) Normal mg/dl Normal [facility] Laboratory - Chemistry and C hemistry - challengeon 07-05-2022 Bilirubin Ql (U) Negative [facility] Glucose Ql (U) Negative [facility] Ketones Ql (U) Negative [facility] pH (U) 5.0 [pH] [facility] Specific gravity (U) [Rel density] 1.010 [facility] Urobilinogen (U) [Mass/Vol] Negative [facility] Laboratory - Hematology and Cell countson 07-05-2022 Hemoglobin Ql (U) Negative [facility] Laboratory - Specimen inform ationon 07-05-2022 Clarity (U) Clear [facility] Color (U) Yellow [facility] Laboratory - Urinalysison Nitrite Ql (U) Negative [facility] Protein Ql (U) Negative [facility] No Panel Informationon 07-05 Urine Leukocytes Negatve [facility] Urine Non-Hemolyzed Blood Negative [facility] Laboratory - Microbiology an d Antimicrobial susceptibilityon 06-08-2022 SARS-CoV-2 (COVID-19) RNA HAZEL+probe Ql (Unsp spec) Not detected Not Detect [facility] Work Phone: Comment on above: Normal Reference Ran ge: Not DetectedMethod:(RT-PCR) real-time reverse transcriptase PCRLuminex ARIC Instrument*The Food and Drug Administration (FDA) has issued an Emergency Use Authorization (EAU) for the ARIC SARS-CoV-2 Assay for the rapid detection of the virus that causes COVID-19. This test has been validated, but the FDAs independent review of this validation is pending.*Negative results do not preclude infection and should not be used as the sole basis for treatment or patient management. Optimum specimen types and timing for peak viral levels during infections caused by SARS-CoV-2 have not been determined. Collection of multiple specimens from the same patient may be necessary to detect the virus. The possibility of a false negative result should be considered if the patient has clinical presentation or has had recent exposure. Liam 05-10-2022 CNPN Telephone (FPWASAUL) DEA MERRITT ([id number]) 1935 F Date Time Provider Department 05/10/22 HARRIS MOTA During your visit today, we recorded the following information about you: Neli Moreland 05/10/2022 4:17 PM Signed Received labs from [facility]. Placed in provider's inbox for review. [...] Comments: Mouth swelling and blurry vision. STATINS ([id number] REDUCTAS*10/18/2009 5 - Intolerance Comments: Joint pain/swelling/elevated liver enzymes TURMERIC 09/23/2020 8 - GI Upset VENOM-WASP 06/02/2021 7 - Swelling Date Reviewed: 02/24/2022 Reviewed by: Paulina Santos LPN - Fully Assessed Reason for Visit: Outside Lab Results [753] Cmt: [facility] Prescriptions as of 05/10/2022 - rivaroxaban [...] SOLAR SKIN DAMAGE NOS [L57.8] 04/20/2009 SOLAR LENTIGENES///DYSCHROMI A OTHER [L81.9] 04/20/2009 02/25/2015 Hyperlipidemia [E78.5] 10/04/2010 [...] Encounter Status:Closed by NELI MORELAND on 05/10/[address] [facility] Basophil percentageon 2021 Basophil percentage Not Reportable [facility] Work Phone: CNPAva 05-08-2022 LAYO Telephone (YING) DEA MERRITT ([id number]) 1935 F Date Time Provider Department 05/08/22 HARRIS MOTA During your visit today, we recorded the following information about you: Neli Moreland 05/08/2022 2:03 PM Signed Received labs from [facility]. Placed in provider's inbox for review. [...] Comments: Mouth swelling and blurry vision. STATINS ([id number] REDUCTAS*10/18/2009 5 - Intolerance Comments: Joint pain/swelling/elevated liver enzymes TURMERIC 09/23/2020 8 - GI Upset VENOM-WASP 06/02/2021 7 - Swelling Date Reviewed: 02/24/2022 Reviewed by: Paulina Santos LPN - Fully Assessed Reason for Visit: Outside Lab Results [753] Cmt: [facility] Prescriptions as of 05/08/2022 - rivaroxaban [...] SOLAR SKIN DAMAGE NOS [L57.8] 04/20/2009 SOLAR LENTIGENES///DYSCHROMI A OTHER [L81.9] 04/20/2009 02/25/2015 Hyperlipidemia [E78.5] 10/04/2010 [...] Status:Closed by NELI MORELAND on 05/08/[address] [facility] Erythrocyte sedimentation ra herve 05-08-2022 ESR (Bld) [Velocity] 9 mm/h 0-30 [facility] Work Phone: Laboratory - Chemistry and C hemistry - challengeon 05-08-2022 Cobalamin (Vitamin B12) [Mass/Vol] 549 pg/mL 211-911 [facility] Work Phone: No Panel Informationon 05-08 Anti-Nuclear Antibody Screen Negative Negative [facility] Work Phone: Comment on above: Performed at: [address] [id number] Director: Mick Bradley PhD, Phone: [phone] [employer] B Antibody Not Reportable [facility] Work Phone: [employer] MANAGER Antibody Not Reportable [facility] Work Phone: Serum DNA double strand anti body assay (units/volume)on 05-08-2022 DNA double strand Ab Qn (S) Not Reportable [facility] Work Phone: Serum Kerry-1 antibody assay (u nits/volume)on 05-08-2022 Kerry-1 extractable nuclear Ab Qn (S) Not Reportable [facility] Work Phone: Serum Scl-70 extractable nuc lear antibody assay (units/volume)on 05-08-2022 SCL-70 extractable nuclear Ab Qn (S) Not Reportable [facility] Work Phone: Serum Benito extractable nucl ear antibody detectionon 05-08-2022 Benito extractable nuclear Ab Ql (S) Not Reportable [facility] Work Phone: Serum cyclic citrullinated p eptide IgG antibody assay (units/volume)on 05-08-2022 Cyclic citrullinated peptide IgG Qn 6 units 0-19 [facility] Work Phone: Comment on above: Negative <20 Weak po sitive 20 - 39 Moderate positive 40 - 59 Strong positive >59Performed at: [facility] [id number] [place], [place] [id number] Director: Payam Ervin MD, Phone: [phone] Serum or plasma C reactive p rotein measurement (mass/volume)on 05-08-2022 CRP [Mass/Vol] mg/L 0.0-3.0 [facility] Work Phone: Comment on above: C-Reactive Protein ( CRP) provides useful information for thediagnosis, therapy and monitoring of inflammatory processesand associated diseases. For the evaluation of Relative Riskfor Cardiovascular Disease, a High Sensitivity CRP (HSCRP)should be ordered. CBC,PLATELETSon 02-17-2022 Hematocrit (Bld) [Volume fraction] 39.7 % Normal 34.9-44.3 [facility] Comment on above: Performed By: #### HESHAM RODARTE, C7ED #### [facility] (DEFAULT) [address] [place] [address] Hemoglobin (Bld) [Mass/Vol] 13.1 g/dL Normal 11.4-15. 2 [facility] Comment on above: Performed By: #### HESHAM RODARTE C7ED #### [facility] (DEFAULT) [address] [place] [address] MCV (RBC) [Entitic vol] 93.4 fL Normal 79.6-97.7 [facility] Comment on above: Performed By: #### HESHAM RODARTE C7ED #### [facility] (DEFAULT) [address] [place] [address]8980 Mean Cell Hgb 30.8 pg Normal 25.9-33.9 [facility] Comment on above: Performed By: #### HESHAM RODARTE C7ED #### [facility] (DEFAULT) [address] [place] [address] 65053 Mean Cell Hgb Conc 33.0 g/dL Normal 31.4-35.9 [facility] Comment on above: Performed By: #### HESHAM RODARTE C7ED #### [facility] (DEFAULT) [address] [place] [address] Platelet mean volume (Bld) [Entitic vol] 10.4 fL Normal 8.5-12.2 [facility] Comment on above: Performed By: #### Rubén BOSE LABWILLI, C7ED #### [facility] (DEFAULT) [address] [place] [address] Platelets (Bld) [#/Vol] 254 10*3/uL Normal 150-393 [facility] Comment on above: Performed By: #### H JUICE, LABHSTIFFANIE1, C7ED #### [facility] (DEFAULT) [address] [place] [address] RBC (Bld) [#/Vol] 4.25 10*6/uL Normal 3.91-5.04 [facility] Comment on above: Performed By: #### H JUICE, LABWILLI, C7ED #### [facility] (DEFAULT) [address] [place] [address]9428 RBC Distribution 12.6 % Normal 10.8-14.9 [facility] Comment on above: Performed By: #### Rubén BOSE LABWILLI, C7ED #### [facility] (DEFAULT) [address] [place] [address] WBC (Bld) [#/Vol] 6.60 10*3/uL Normal 3.99-11.19 [facility] Comment on above: Performed By: #### H JUICE, LABWILLI, C7ED #### [facility] (DEFAULT) [address] [place] [address] Erythrocyte distribution width (RBC) [Ratio] 12.6 % 10.8 - 14.9 % [facility] Hematocrit (Bld) [Volume fraction] 39.7 % 34.9 - 44.3 % [facility] Hemoglobin (Bld) [Mass/Vol] 13.1 g/dL 11.4 - 15.2 g/dL [facility] Interpretation and review of laboratory results Normal [facility] MCH (RBC) [Entitic mass] 30.8 pg 25. 9 - 33.9 pg [facility] MCHC (RBC) [Mass/Vol] 33.0 g/dL 31.4 - 35.9 g/dL [facility] MCV (RBC) [Entitic vol] 93.4 fL 79.6 - 97.7 fL [facility] Platelet mean volume (Bld) [Entitic vol] 10.4 fL 8.5 - 12.2 fL [facility] Platelets (Bld) [#/Vol] 254 10*3/uL 150 - 393 K/uL [facility] RBC (Bld) [#/Vol] 4.25 10*6/uL [facility] WBC (Bld) [#/Vol] 6.60 10*3/uL 3.99 - 11.19 K/uL [facility] CHEM 7 (LYTES,BUN,CREA,GLUC) on 02-17-2022 Anion gap [Moles/Vol] 15 mmol/L Normal 7-17 [facility] Comment on above: Performed By: #### C HM7 #### [facility] (DEFAULT) [address] [address] Chloride [Moles/Vol] 107 mmol/L Normal 98-108 [facility] Comment on above: Performed By: #### C HM7 #### [facility] (DEFAULT) [address] [address] CO2 [Moles/Vol] 22 mmol/L Normal 21-31 [facility] Comment on above: Performed By: #### C HM7 #### [facility] (DEFAULT) [address] [address] Creatinine [Mass/Vol] 0.73 mg/dL Normal 0.50-1.20 [facility] Comment on above: Performed By: #### C HM7 #### [facility] (DEFAULT) [address] [address] GFR/1.73 sq M.predicted among non-blacks MDRD (S/P/Bld) [Vol rate/Area] 81 mL/min/{1.73_m2} Normal >=60 [facility] Comment on above: Result Comment: Repo rted eGFR is based on the CKD-EPI 2020 equation using creatinine, age, and sex. Performed By: #### C HM7 #### [facility] (DEFAULT) [address] [address] Glucose [Mass/Vol] 90 mg/dL Normal 70-99 [facility] Comment on above: Performed By: #### C HM7 #### [facility] (DEFAULT) [address] [place] [address] Osmolality [Osmolality] 294 mosm/kg Normal 278-305 [facility] Comment on above: Performed By: #### C HM7 #### [facility] (DEFAULT) [address] [place] [address] Potassium [Moles/Vol] 4.0 mmol/L Normal 3.5-5.0 [facility] Comment on above: Performed By: #### C HM7 #### [facility] (DEFAULT) [address] [place] [address]681 Sodium [Moles/Vol] 140 mmol/L Normal 135-145 [facility] Comment on above: Performed By: #### C HM7 #### [facility] (DEFAULT) [address] [place] [address]87 Urea nitrogen [Mass/Vol] 18 mg/dL Normal 7-25 [facility] Comment on above: Performed By: #### C HM7 #### [facility] (DEFAULT) [address] [place] [address]851 Urea nitrogen/Creatinine [Mass ratio] 25 mg/mg Normal [facility] Comment on above: Performed By: #### C HM7 #### [facility] (DEFAULT) [address] [place] [address] Anion gap [Moles/Vol] 15 mmol/L 7 - 17 mmol/L [facility] Chloride [Moles/Vol] 107 mmol/L 98 - 10 8 mmol/L [facility] CO2 [Moles/Vol] 22 mmol/L 21 - 31 mmol/L [facility] Creatinine [Mass/Vol] 0.73 mg/dL 0.50 - 1.20 mg/dL [facility] GFR/1.73 sq M.predicted CKD-EPI (S/P/Bld) [Vol rate/Area] 81 >=60 mL/min/1.7 3m2 [facility] Comment on above: Reported eGFR is bas ed on the CKD-EPI 2020 equation using creatinine, age, and sex. Glucose [Mass/Vol] 90 mg/dL 70 - 99 mg/dL [facility] Osmolality Calc [Osmolality] 294 [facility] Potassium [Moles/Vol] 4.0 mmol/L 3.5 - 5.0 mmol/L [facility] Sodium [Moles/Vol] 140 mmol/L 135 - 145 mmol/L [facility] Urea nitrogen [Mass/Vol] 18 mg/dL 7 - 25 mg/dL [facility] Urea nitrogen/Creatinine [Mass ratio] 25 mg/mg [facility] Cardiac echo study Procedure Ordered By: Mary Wall on 02-17-2022 Ao peak matilda 1.05 m/s [facility] Work Phone: AV LVOT peak gradient 4 mmHg [facility] Work Phone: AV peak gradient 4 mmHG [facility] Work Phone: AV regurgitation pressure 1/2 time 671.00 ms [facility] Work Phone: AV Velocity Ratio 0.97 [facility] Work Phone: CARMELINA (continuity Vmax) 2.70 cm2 [facility] Work Phone: CARMELINA index (continuity Vmax) 1.80 m/s [facility] Work Phone: Body surface area Derived from formula 1.5 m2 [facility] Work Phone: DI (Vmax) 0.97 [facility] Work Phone: E wave decelartion time 188.10 msec O [facility] Work Phone: EST RAP 8.00 mmHg [facility] Work Phone: EST RVSP 30 mmHg [facility] Work Phone: FS 34 % 28 - 44 % [facility] Work Phone: IVC ostium 1.29 cm [facility] Work Phone: IVS 0.78 cm [facility] Work Phone: LA ESV BP (MOD) 119 mL [facility] Work Phone: LA ESV BP (MOD) index 79 mL/m2 [facility] Work Phone: LA ESV SP 2CH (MOD) 130 mL [facility] Work Phone: LA ESV SP 4CH (MOD) 107 mL [facility] Work Phone: LV mass 69.55 g [facility] Work Phone: LV Mass Index 46.4 g/m2 [facility] Work Phone: LV RWT 0.42 [facility] Work Phone: LVIDD 3.50 cm [facility] Work Phone: LVIDS 2.30 cm [facility] Work Phone: LVOT area 2.77 cm2 [facility] Work Phone: LVOT diameter 1.88 cm [facility] Work Phone: LVOT peak matilda 1.02 m/s [facility] Work Phone: MV pk E matilda 1.03 m/s [facility] Work Phone: PV [facility]: PV PK MATILDA 0.65 m/s [facility] Work Phone: PW 0.73 cm [facility] Work Phone: RA vol index 4CH (MOD) 64.00 mL/m2 [facility] Work Phone: Right atrium volume 4 chamber method of disks 96 mL [facility] Work Phone: RV Area diastolic 14.48 cm2 [facility] Work Phone: RV Area systolic 9.57 cm2 [facility] Work Phone: RV basal diam 4.21 [facility] Work [facility]: RV Fractional area change 33.9 % [facility] Work Phone: RV long diam 5.10 cm [facility] Work Phone: RV mid diam 2.52 cm [facility] Work Phone: RV S' 12.16 cm/s [facility] Work Phone: RVOT peak gradient [facility]: RVOT peak matilda 0.61 m/s [facility] Work Phone: TAPSE 1.85 cm [facility] Work Phone: TR pk grad 22 mmHg [facility] Work Phone: TR pk matilda 2.35 m/s [facility] Work Phone: TV rest pulmonary artery pressure 27.07 mmHg [facility] Work Phone: [facility] Work Phone: Cardiac echo study Procedure on 02-17-2022 Cardiac rhythm is atrial fibrillation. Left Ventricle: Chamber size is normal. [...] echocardiography study was performed. Imaging system used: Oon[employer]. [facility] Radiology Study observation (narrative) [facility] ECHOCARDIOGRAMon 02-17-2022 Echocardiography ? Cardiac rhythm is [...] shunt seen with color Doppler. Facility [facility] Patient Information Patient Name Dea Merritt Legal [...] Role Read Date Mary Wall MD Test Vice President Of Business Development, [facility] [place] 02/17/2022 Left Heart Measurements LV - Systole [...] 30 mmHg (more content not included)... Normal [facility] EXTRA MICROon 02-17-2022 [facility] MR Brain WO contraston 02-17 IMPRESSION: [...] vessel ischemic disease. OLOGY EXAM: MRI BRAIN WITHOUT CONTRAST, 02/17/2022 04:25 [...] probably due to small vessel ischemic disease. [facility] Radiology Study observation (narrative) [facility] MR Brain WO contrastOrdered By: Marisol Osman on 02-17-2022 [facility] Work Phone: MRI BRAIN WITHOUT CONTRASTon 02-17-2022 MRI BRAIN WITHOUT CONTRAST EXAM: MRI BRA IN WITHOUT CONTRAST, 02/17/2022 04:25 AM COMPARISON: No [...] due to small vessel ischemic disease. Normal [facility] CBC,PLATELETSon 02-16-2022 Hematocrit (Bld) [Volume fraction] 42.2 % Normal 34.9-44.3 [facility] Comment on above: Performed By: #### [facility] #### [facility] (DEFAULT) [address] [address] Hemoglobin (Bld) [Mass/Vol] 13.6 g/dL Normal 11.4-15. 2 [facility] Comment on above: Performed By: #### [facility] #### [facility] (DEFAULT) [address] [address] MCV (RBC) [Entitic vol] 93.0 fL Normal 79.6-97.7 [facility] Comment on above: Performed By: #### H EMOGC #### [facility] (DEFAULT) [address] [address] Mean Cell Hgb 30.0 pg Normal 25.9-33.9 [facility] Comment on above: Performed By: #### H EMOGC #### [facility] (DEFAULT) [address] [address] Mean Cell Hgb Conc 32.2 g/dL Normal 31.4-35.9 [facility] Comment on above: Performed By: #### H EMOGC #### [facility] (DEFAULT) [address] [address] Platelet mean volume (Bld) [Entitic vol] 10.1 fL Normal 8.5-12.2 [facility] Comment on above: Performed By: #### H EMOGC #### [facility] (DEFAULT) [address] [address] Platelets (Bld) [#/Vol] 257 10*3/uL Normal 150-393 [facility] Comment on above: Performed By: #### H EMOGC #### [facility] (DEFAULT) [address] [address] RBC (Bld) [#/Vol] 4.54 10*6/uL Normal 3.91-5.04 [facility] Comment on above: Performed By: #### H EMOGC #### [facility] (DEFAULT) [address] [address] RBC Distribution 12.6 % Normal 10.8-14.9 [facility] Comment on above: Performed By: #### H EMOGC #### [facility] (DEFAULT) [address] [address] WBC (Bld) [#/Vol] 7.07 10*3/uL Normal 3.99-11.19 [facility] Comment on above: Performed By: #### H EMOGC #### [facility] (DEFAULT) [address] [place], [place] [id number] Erythrocyte distribution width (RBC) [Ratio] 12.6 % 10.8 - 14.9 % [facility] Hematocrit (Bld) [Volume fraction] 42.2 % 34.9 - 44.3 % [facility] Hemoglobin (Bld) [Mass/Vol] 13.6 g/dL 11.4 - 15.2 g/dL [facility] Interpretation and review of laboratory results Normal [facility] MCH (RBC) [Entitic mass] 30.0 pg 25. 9 - 33.9 pg [facility] MCHC (RBC) [Mass/Vol] 32.2 g/dL 31.4 - 35.9 g/dL [facility] MCV (RBC) [Entitic vol] 93.0 fL 79.6 - 97.7 fL [facility] Platelet mean volume (Bld) [Entitic vol] 10.1 fL 8.5 - 12.2 fL [facility] Platelets (Bld) [#/Vol] 257 10*3/uL 150 - 393 K/uL [facility] RBC (Bld) [#/Vol] 4.54 10*6/uL [facility] WBC (Bld) [#/Vol] 7.07 10*3/uL 3.99 - 11.19 K/uL [facility] CHEM 7 (LYTES,BUN,CREA,GLUC) on 02-16-2022 Anion gap [Moles/Vol] 14 mmol/L Normal 7-17 [facility] Comment on above: Performed By: #### H FP, LABHSTI1, C7ED #### [facility] (DEFAULT) [address] [place] [address] Chloride [Moles/Vol] 105 mmol/L Normal 98-108 [facility] Comment on above: Performed By: #### H FP, LABHSTI1, C7ED #### [facility] (DEFAULT) [address] [place] [address] CO2 [Moles/Vol] 24 mmol/L Normal 21-31 [facility] Comment on above: Performed By: #### H HESHAM BOSE C7ED #### [facility] (DEFAULT) [address] [place] [address] Creatinine [Mass/Vol] 0.87 mg/dL Normal 0.50-1.20 [facility] Comment on above: Performed By: #### H HESHAM BOSE C7ED #### [facility] (DEFAULT) [address] [place] [address] GFR/1.73 sq M.predicted among non-blacks MDRD (S/P/Bld) [Vol rate/Area] 66 mL/min/{1.73_m2} Normal >=60 [facility] Comment on above: Result Comment: Repo rted eGFR is based on the CKD-EPI 2020 equation using creatinine, age, and sex. Performed By: #### H HESHAM BOSE C7ED #### [facility] (DEFAULT) [address] [place] [address] Glucose [Mass/Vol] 121 mg/dL High 70-99 [facility] Comment on above: Performed By: #### HESHAM RODARTE C7ED #### [facility] (DEFAULT) [address] [place] [address] Osmolality [Osmolality] 294 mosm/kg Normal 278-305 [facility] Comment on above: Performed By: #### HESHAM RODARTE C7ED #### [facility] (DEFAULT) [address] [place] [address]25 Potassium [Moles/Vol] 3.4 mmol/L Low 3.5-5.0 [facility] Comment on above: Performed By: #### HESHAM RODARTE C7ED #### [facility] (DEFAULT) [address] [place] [address] Sodium [Moles/Vol] 140 mmol/L Normal 135-145 [facility] Comment on above: Performed By: #### H JUICE, LABHSTI1, C7ED #### [facility] (DEFAULT) [address] [place] [address] Urea nitrogen [Mass/Vol] 15 mg/dL Normal 7-25 [facility] Comment on above: Performed By: #### H FP, LABHSTI1, C7ED #### [facility] (DEFAULT) [address] [place] [address] Urea nitrogen/Creatinine [Mass ratio] 17 mg/mg Normal [facility] Comment on above: Performed By: #### H JUICE, LABTI1, C7ED #### [facility] (DEFAULT) [address] [place] [address] Anion gap [Moles/Vol] 14 mmol/L 7 - 17 mmol/L [facility] Chloride [Moles/Vol] 105 mmol/L 98 - 10 8 mmol/L [facility] CO2 [Moles/Vol] 24 mmol/L 21 - 31 mmol/L [facility] Creatinine [Mass/Vol] 0.87 mg/dL 0.50 - 1.20 mg/dL [facility] GFR/1.73 sq M.predicted CKD-EPI (S/P/Bld) [Vol rate/Area] 66 >=60 mL/min/1.7 3m2 [facility] Comment on above: Reported eGFR is bas ed on the CKD-EPI 2020 equation using creatinine, age, and sex. Glucose [Mass/Vol] 121 mg/dL High 70 - 99 mg/dL [facility] Osmolality Calc [Osmolality] 294 [facility] Potassium [Moles/Vol] 3.4 mmol/L Low 3.5 - 5.0 mmol/L [facility] Sodium [Moles/Vol] 140 mmol/L 135 - 145 mmol/L [facility] Urea nitrogen [Mass/Vol] 15 mg/dL 7 - 25 mg/dL [facility] Urea nitrogen/Creatinine [Mass ratio] 17 mg/mg [facility] CONTINUOUS CARDIAC MONITORIN G STRIPon 02-16-2022 [facility] CONTINUOUS CARDIAC MONITORIN G STRIPOrdered By: Unassigned Pacs on 02-16-2022 [facility] Work Phone: CT CEREBRAL PERFUSION ANALYS Catie [...] Ayala on 02/16/2022 12:11 AM . Normal [facility] IMPRESSION: Area of large mismatch perfusion [...] Brett Ayala on 02/16/2022 12:11 AM . [facility] CT CEREBRAL PERFUSION ANALYS ISOrdered By: Brett Ayala on 02-16-2022 [facility] Work Phone: CT HEAD WITHOUT CONTRASTon 0 02-16-2022 CT HEAD WITHOUT CONTRAST EXAM: CT HEAD W ITHOUT CONTRAST, 02/15/2022 10:40 PM COMPARISON: None. CLINICAL [...] hemorrhage or acute large territory infarct. Normal [facility] CT Head WO contraston 2021 IMPRESSION: [...] intracranial hemorrhage or acute large territory infarct. [facility] HEMOGLOBIN [id number] By: Duarte Garibay on 02-16-2022 Average glucose Estimated from glycated hemoglobin (Bld) [Mass/Vol] 131 mg/dL [facility] HbA1c (Bld) [Mass fraction] 6.2 % High 4.7 - 5.6 % [facility] Interpretation and review of laboratory results Abnormal [facility] HEMOGLOBIN A1Con 02-16-2022 Glucose [Mass/Vol] 131 mg/dL Normal [facility] Comment on above: Performed By: #### H HESHAM BOSE C7ED #### [facility] (DEFAULT) [address] [place] [address] HbA1c (Bld) [Mass fraction] 6.2 % High 4.7-5.6 [facility] Comment on above: Performed By: #### H HESHAM BOSE C7ED #### [facility] (DEFAULT) [address] [address] HEPATIC FUNCTION PANELon Albumin [Mass/Vol] 3.9 g/dL Normal 3.5-5.0 [facility] Comment on above: Performed By: #### H HESHAM BOSE C7ED #### [facility] (DEFAULT) [address] [place] [address]32 ALP [Catalytic activity/Vol] 54 U/L Normal 32-126 [facility] Comment on above: Performed By: #### H HESHAM BOSE, C7ED #### [facility] (DEFAULT) [address] [place] [address] 02845 ALT [Catalytic activity/Vol] 23 U/L Normal 9-48 [facility] Comment on above: Performed By: #### H HESHAM BOSE C7ED #### [facility] (DEFAULT) [address] [place] [address] 04093 AST [Catalytic activity/Vol] 24 U/L Normal 10-39 [facility] Comment on above: Performed By: #### H HESHAM BOSE C7ED #### [facility] (DEFAULT) [address] [place] [address] 48782 Bilirubin [Mass/Vol] 0.6 mg/dL Normal <1.5 [facility] Comment on above: Performed By: #### H HESHAM BOSE C7ED #### [facility] (DEFAULT) [address] [place] [address]71 Bilirubin.indirect [Mass/Vol] 0.1 mg/dL Normal <0.3 [facility] Comment on above: Performed By: #### H HESHAM BOSE C7ED #### [facility] (DEFAULT) [address] [place] [address]97 Protein [Mass/Vol] 6.7 g/dL Normal 6.4-8.3 [facility] Comment on above: Performed By: #### H HESHAM BOSE C7ED #### [facility] (DEFAULT) [address] [place] [address]35 Albumin [Mass/Vol] 3.9 g/dL 3.5 - 5.0 g/dL [facility] ALP [Catalytic activity/Vol] 54 U/L 32 - 126 U/L [facility] ALT [Catalytic activity/Vol] 23 U/L 9 - 48 U/L [facility] AST [Catalytic activity/Vol] 24 U/L 10 - 39 U/L [facility] Bilirubin [Mass/Vol] 0.6 mg/dL <1.5 [facility] Bilirubin.direct [Mass/Vol] 0.1 mg/dL <0.3 [facility] Protein [Mass/Vol] 6.7 g/dL 6.4 - 8.3 g/dL [facility] LIPID PANEL WITH REFLEX TO M GUERLINE LDLon 02-16-2022 Calculated LDL Cholesterol 187 mg/dL High 0-99 [facility] Comment on above: Result Comment: [<10 0 mg/dL: Optimal] [100-129 mg/dL: Near Optimal] [130-159 mg/dL: Borderline High] [160-189 mg/dL: High] [>189 mg/dL: Very High] Performed By: #### H JUICE, LABHSTI1, C7ED #### [facility] (DEFAULT) [address] [address] Cholesterol [Mass/Vol] 285 mg/dL High <200 [facility] Comment on above: Result Comment: [<20 0 mg/dL: Desirable] [200-239 mg/dL: Borderline High] [>239 mg/dL: High] Performed By: #### H JUICE, LABHSTI1, C7ED #### [facility] (DEFAULT) [address] [place] [address]75 Cholesterol in HDL [Mass/Vol] 71 mg/dL Normal >=40 [facility] Comment on above: Result Comment: [<40 mg/dL: Low (High Risk)] [>59 mg/dL: High (Low Risk)] Performed By: #### H JUICE, LABHSTI1, C7ED #### [facility] (DEFAULT) [address] [place] [address] 31576 Non HDL Cholesterol 214 mg/dL High <130 [facility] Comment on above: Performed By: #### H JUICE, LABHSTI1, C7ED #### [facility] (DEFAULT) [address] [place] [address] Total Cholesterol/HDL Ratio 4.0 Normal <4.5 [facility] Comment on above: Performed By: #### Rubén BOSE, CATE1, C7ED #### [facility] (DEFAULT) [address] [place] [address] Triglyceride [Mass/Vol] 137 mg/dL Normal <150 [facility] Comment on above: Result Comment: [<15 0 mg/dL: Desirable] [150-199 mg/dL: Borderline] [200-499 mg/dL: High] [>500 mg/dL: Very High] Performed By: #### Rubén BOSE, HESHAM, C7ED #### [facility] (DEFAULT) [address] [place] [address] Cholesterol [Mass/Vol] 285 mg/dL High <200 [facility] Comment on above: [<200 mg/dL: Desirab le] [200-239 mg/dL: Borderline High] [>239 mg/dL: High] Cholesterol in HDL [Mass/Vol] 71 mg/dL >=40 [facility] Comment on above: [<40 mg/dL: Low (Hig h Risk)] [>59 mg/dL: High (Low Risk)] Cholesterol in HDL [Mass/Vol] 214 mg/dL High <130 [facility] Cholesterol in LDL [Mass/Vol] 187 mg/dL High 0 - 99 mg/dL [facility] Comment on above: [<100 mg/dL: Optimal ] [100-129 mg/dL: Near Optimal] [130-159 mg/dL: Borderline High] [160-189 mg/dL: High] [>189 mg/dL: Very High] Cholesterol.total/Cholester ol in HDL [Mass ratio] 4.0 {ratio} <4.5 [facility] Triglyceride [Mass/Vol] 137 mg/dL <150 [facility] Comment on above: [<150 mg/dL: Desirab le] [150-199 mg/dL: Borderline] [200-499 mg/dL: High] [>500 mg/dL: Very High] LT BLUE TOP TUBEon 2 [facility] MAGNESIUMon 02-16-2022 Magnesium [Mass/Vol] 1.9 mg/dL Normal 1.6-2.6 [facility] Comment on above: Performed By: #### H , LABHSTI1, C7ED #### [facility] (DEFAULT) [address] [address] Magnesium [Mass/Vol] 1.9 mg/dL 1.6 - 2 .6 mg/dL [facility] No Panel Informationon 02-16 Interpretation and review of laboratory results Abnormal [facility] Interpretation and review of laboratory results Normal [facility] TOXICOLOGY SCREEN URINE - UD RGOrdered By: Nathalia Nguyen on 02-16-2022 Barbiturates Ql (U) Negative Cutoff: 200 ng/mL [facility] Cannabinoids Screen Ql (U) Negative C utoff: 50 ng/mL [facility] Drugs identified Screen Nom (U) Negative Negative [facility] Interpretation and review of laboratory results Normal [facility] For Medical Purposes Only. Nonforensic screen results are considered presumptive and no confirmatory testing will follow. Drugs are detected by immunoassay or Liquid Chromatography Mass Spectrometry (LC-MS/MS). The LC-MS/MS test was developed and its performance characteristics determined by the Toxicology Laboratory at [facility]. It has not been cleared or approved by the FDA. The laboratory is regulated under CLIA as qualified to perform high-complexity testing. This test is used for clinical purposes and should not be regarded as investigational or for research. The following drugs with their lowest level of detection in ng/ml(LOD) are included in this screen: 6 Monoacetylmorphine(300 ), 7 Aminoflunitrazepam(25) , 7 Aminoclonazepam(50),7 hydroxymitragynine (100),Alphahydroxymida zolam (200), Alphahydrozyalprazolam (200), Alprazolam(50), Amitriptyline(50), Amphetamine(250), Atenolol(500),Benzoyle cgonine(50), Buprenorphine(100), Bupropion(25),Caffeine (43814),Chlordiazepoxi de(50), Chlorpheniramine(100), Chlorpromazine(50), Citalopram(100), Clonazepam(200), Cocaine(25),Codeine(20 0), Cotinine(500),Desipram ine(50), Desmethyldoxepin(100), Dextromethorphan(100), Diazepam(100), Dihydrocodeine(100), Diltazem(50), Diphenhydramine(100),D oxepin(100),EDDP/metha done(100), Ephedrine/Pseudoephedr ine(100),Fentanyl(25), Flunitrazepam(100),Flu oxetine(200), Flurazepam(50),Gabapen tin(1500), Haloperidol(25), Hydrocodone(100), Hydromorphone(200), Imipramine(50), Ketamine(25), Lidocaine(25),Lorazepa m(100), Lysergide(LSD)(25),Map rotiline(200), MDA(250), MDMA(250), Meperidine(50),Midazol am (200),Methadone(50), Methamphetamine(500), Methylphenidate(50), Metoprolol(50), Morphine(200),Nalbuphi ne(50), Naloxone(200), Norbuprenorphine(300), Nordiazepam(100), Norfentanyl(50),Noroxy codone (100), Norpropoxyphene(50), Nortriptyline(50), Olanzapine(200),Oxazep am(200),Oxycodone(100) ,Oxymorphone(200), Phencyclidine(PCP)(25) , Pheniramine(25), Pregabalin(1500), Promethazine(50), Propoxyphene(100), Propanolol(50), Quetiapine(25), Quinidine(500), Ranitidine(500), Risperidone(100), Sertraline(50),Temazep am(100), Thioridazine(100), Tramadol(50), Trazodone(25), Triazolam(100), Trifluoperazine (100),Venlafaxine(50), Verapamil(100), Zolpidem(200) [facility] TOXICOLOGY SCREEN URINE - UD RGon 02-16-2022 Barbiturates Negative Normal Cutoff: 200 ng/mL [facility] Comment on above: Order Comment: For M edical Purposes Only. Nonforensic screen results are considered presumptive and no confirmatory testing will follow. Drugs are detected by immunoassay or Liquid Chromatography Mass Spectrometry (LC-MS/MS). The LC-MS/MS test was developed and its performance characteristics determined by the Toxicology Laboratory at [facility]. It has not been cleared or [...] (200), Alphahydrozyalprazolam(200), Alprazolam(50), Amitriptyline(50), Amphetamine(250), Atenolol(500),Benzoylecgonine(50), Buprenorphine(100), Bupropion(25),Caffeine(81234),Chlordiazepoxide(50), Chlorpheniramine(100), Chlorpromazine(50), Citalopram(100), Clonazepam(200), Cocaine(25),Codeine(200), Cotinine(500),Desipramine(50), Desmethyldoxepin(100), Dextromethorphan(100), Diazepam(100), Dihydrocodeine(100), Diltazem(50), Diphenhydramine(100),Doxepin(100),EDDP/methadone(100), Ephedrine/Pseudoephedrine(100),Fentanyl(25),Flunitrazepam( 100),Fluoxetine(200), Flurazepam(50),Gabapentin(1500), Haloperidol(25), Hydrocodone(100), Hydromorphone(200), Imipramine(50), Ketamine(25), Lidocaine(25),Lorazepam(100), Lysergide(LSD)(25),Maprotiline(200), MDA(250), MDMA(250), Meperidine(50),Midazolam (200),Methadone(50), Methamphetamine(500), Methylphenidate(50), Metoprolol(50), Morphine(200),Nalbuphine(50), Naloxone(200), Norbuprenorphine(300), Nordiazepam(100), Norfentanyl(50),Noroxycodone (100), Norpropoxyphene(50), Nortriptyline(50), Olanzapine(200),Oxazepam(200),Oxycodone(100),Oxymorphone(2 00), Phencyclidine(PCP)(25), Pheniramine(25), Pregabalin(1500), Promethazine(50), Propoxyphene(100), Propanolol(50), Quetiapine(25), Quinidine(500), Ranitidine(500), Risperidone(100), Sertraline(50),Temazepam(100), Thioridazine(100), Tramadol(50), Trazodone(25), Triazolam(100), Trifluoperazine (100),Venlafaxine(50), Verapamil(100), Zolpidem(200) Performed By: #### U DRG #### [facility] (DEFAULT) [address] [place] [address] Cannabinoids Screen Ql (U) Negative Normal C utoff: 50 ng/mL [facility] Comment on above: Order Comment: For M edical Purposes Only. Nonforensic screen results are considered presumptive and no confirmatory testing will follow. Drugs are detected by immunoassay or Liquid Chromatography Mass Spectrometry (LC-MS/MS). The LC-MS/MS test was developed and its performance characteristics determined by the Toxicology Laboratory at [facility]. It has not been cleared or [...] (200), Alphahydrozyalprazolam(200), Alprazolam(50), Amitriptyline(50), Amphetamine(250), Atenolol(500),Benzoylecgonine(50), Buprenorphine(100), Bupropion(25),Caffeine(46632),Chlordiazepoxide(50), Chlorpheniramine(100), Chlorpromazine(50), Citalopram(100), Clonazepam(200), Cocaine(25),Codeine(200), Cotinine(500),Desipramine(50), Desmethyldoxepin(100), Dextromethorphan(100), Diazepam(100), Dihydrocodeine(100), Diltazem(50), Diphenhydramine(100),Doxepin(100),EDDP/methadone(100), Ephedrine/Pseudoephedrine(100),Fentanyl(25),Flunitrazepam( 100),Fluoxetine(200), Flurazepam(50),Gabapentin(1500), Haloperidol(25), Hydrocodone(100), Hydromorphone(200), Imipramine(50), Ketamine(25), Lidocaine(25),Lorazepam(100), Lysergide(LSD)(25),Maprotiline(200), MDA(250), MDMA(250), Meperidine(50),Midazolam (200),Methadone(50), Methamphetamine(500), Methylphenidate(50), Metoprolol(50), Morphine(200),Nalbuphine(50), Naloxone(200), Norbuprenorphine(300), Nordiazepam(100), Norfentanyl(50),Noroxycodone (100), Norpropoxyphene(50), Nortriptyline(50), Olanzapine(200),Oxazepam(200),Oxycodone(100),Oxymorphone(2 00), Phencyclidine(PCP)(25), Pheniramine(25), Pregabalin(1500), Promethazine(50), Propoxyphene(100), Propanolol(50), Quetiapine(25), Quinidine(500), Ranitidine(500), Risperidone(100), Sertraline(50),Temazepam(100), Thioridazine(100), Tramadol(50), Trazodone(25), Triazolam(100), Trifluoperazine (100),Venlafaxine(50), Verapamil(100), Zolpidem(200) Performed By: #### U DRG #### [facility] (DEFAULT) [address] [place] [address] Drugs Detected Urine Tox Negative Normal Negative [facility] Comment on above: Order Comment: For M edical Purposes Only. Nonforensic screen results are considered presumptive and no confirmatory testing will follow. Drugs are detected by immunoassay or Liquid Chromatography Mass Spectrometry (LC-MS/MS). The LC-MS/MS test was developed and its performance characteristics determined by the Toxicology Laboratory at [facility]. It has not been cleared or [...] (200), Alphahydrozyalprazolam(200), Alprazolam(50), Amitriptyline(50), Amphetamine(250), Atenolol(500),Benzoylecgonine(50), Buprenorphine(100), Bupropion(25),Caffeine(01834),Chlordiazepoxide(50), Chlorpheniramine(100), Chlorpromazine(50), Citalopram(100), Clonazepam(200), Cocaine(25),Codeine(200), Cotinine(500),Desipramine(50), Desmethyldoxepin(100), Dextromethorphan(100), Diazepam(100), Dihydrocodeine(100), Diltazem(50), Diphenhydramine(100),Doxepin(100),EDDP/methadone(100), Ephedrine/Pseudoephedrine(100),Fentanyl(25),Flunitrazepam( 100),Fluoxetine(200), Flurazepam(50),Gabapentin(1500), Haloperidol(25), Hydrocodone(100), Hydromorphone(200), Imipramine(50), Ketamine(25), Lidocaine(25),Lorazepam(100), Lysergide(LSD)(25),Maprotiline(200), MDA(250), MDMA(250), Meperidine(50),Midazolam (200),Methadone(50), Methamphetamine(500), Methylphenidate(50), Metoprolol(50), Morphine(200),Nalbuphine(50), Naloxone(200), Norbuprenorphine(300), Nordiazepam(100), Norfentanyl(50),Noroxycodone (100), Norpropoxyphene(50), Nortriptyline(50), Olanzapine(200),Oxazepam(200),Oxycodone(100),Oxymorphone(2 00), Phencyclidine(PCP)(25), Pheniramine(25), Pregabalin(1500), Promethazine(50), Propoxyphene(100), Propanolol(50), Quetiapine(25), Quinidine(500), Ranitidine(500), Risperidone(100), Sertraline(50),Temazepam(100), Thioridazine(100), Tramadol(50), Trazodone(25), Triazolam(100), Trifluoperazine (100),Venlafaxine(50), Verapamil(100), Zolpidem(200) Performed By: #### U DRG #### [facility] (DEFAULT) [address] [place] [address]015 URINE DIPSTICK; REFLEX MICRO SCOPY; REFLEX CULTURE PERFORMABLEon 02-16-2022 Appearance (U) Clear Normal Clear [facility] Comment on above: Performed By: #### H FP, LABHSTI1, C7ED #### [facility] (DEFAULT) [address] [place] [address] 04639 Blood Urine Negative Normal Negative [facility] Comment on above: Performed By: #### H FP, LABHSTI1, C7ED #### [facility] (DEFAULT) [address] [place] [address] 73428 Color (U) Yellow Normal Yellow [facility] Comment on above: Performed By: #### H FP, LABHSTI1, C7ED #### [facility] (DEFAULT) [address] [place] [address]663 Glucose Ql (U) Negative Normal Negative [facility] Comment on above: Performed By: #### H FP, LABHSTI1, C7ED #### [facility] (DEFAULT) [address] [place] [address] 91100 Ketones Ql (U) Negative Normal Negative [facility] Comment on above: Performed By: #### H FP, LABHSTI1, C7ED #### [facility] (DEFAULT) [address] [place] [address] 53292 Leukocyte esterase Test strip Ql (U) Negative Normal Negative [facility] Comment on above: Performed By: #### H FP, LABHSTI1, C7ED #### [facility] (DEFAULT) [address] [place] [address] 30197 Nitrites Urine Negative Normal Negative [facility] Comment on above: Performed By: #### H JUICE, LABLOU, C7ED #### [facility] (DEFAULT) [address] [place] [address] 30990 pH (U) 5.5 [pH] Normal 5.0-7.0 [facility] Comment on above: Performed By: #### H JUICE, LABLOU, C7ED #### [facility] (DEFAULT) [address] [place] [address]122 Protein Urine Negative Normal Negative [facility] Comment on above: Performed By: #### H JUICE LABLOU, C7ED #### [facility] (DEFAULT) [address] [place] [address] 78625 Specific Calmar Urine <=1.005 Normal 1.001 -1.03 5 [facility] Comment on above: Performed By: #### H JUICE LABLOU, C7ED #### [facility] (DEFAULT) [address] [place] [address] 72554 Urobilinogen Urine 0.2 E.U./dL Normal 0.2 E.U/dL, 1.0 E.U/dL [facility] Comment on above: Performed By: #### H , LABLOU, C7ED #### [facility] (DEFAULT) [address] [place] [address] 26394 Appearance (U) Clear Clear [facility] Color (U) Yellow Yellow [facility] Glucose Test strip (U) [Mass/Vol] Negative [facility] Interpretation and review of laboratory results Normal [facility] Ketones (U) [Mass/Vol] Negative Negative [facility] Leukocyte esterase Test strip Ql (U) Negative Negative [facility] Nitrite Ql (U) Negative Negative [facility] pH (U) 5.5 [pH] 5.0 - 7.0 [facility] Protein (U) [Mass/Vol] Negative Negative [facility] RBC (U) [#/Vol] Negative Negative [facility] Specific gravity (U) [Rel density] <=1.005 [facility] Urobilinogen (U) [Mass/Vol] 0.2 E.U./dL 0.2 E.U/dL, 1.0 E.U/dL [facility] Absolute lymphocyte counton 02-15-2022 Lymphocytes Auto (Unsp spec) [#/Vol] 1.82 10*3/uL 0.83-4.51 [facility] Work Phone: Basophil percentageon 2021 Basophil percentage 0 SEEN /hpf 0-5 [facility] Work Phone: Basophils/100 WBC (Bld) 1.2 % 0-1 [facility] Work Phone: Chloride [Moles/Vol] 105 mmol/L 98-107 [facility] Work Phone: Eosinophils/100 WBC (Bld) 3.0 % 0-5 [facility] Work Phone: Glucose [Mass/Vol] 104 mg/dL 74-106 [facility] Work Phone: Comment on above: Fasting Glucose resu lt from 100 to 125 mg/dL suggests IMPAIRED HOMEOSTASIS per A.D.A. criteria. Neutrophils (Bld) [#/Vol] 4.7 10*3/uL 2.0-7.7 [facility] Work Phone: Neutrophils/100 WBC (Bld) 62.4 % 47-70 [facility] Work Phone: Potassium [Moles/Vol] 3.9 mmol/L 3.5-5.1 [facility] Work Phone: Sodium [Moles/Vol] 138 mmol/L 136-145 [facility] Work Phone: WBC (Bld) [#/Vol] 7.6 10*3/uL 4.4-11.0 [facility] Work Phone: Bilirubin Test strip Ql (U)o n 02-15-2022 Bilirubin Ql (U) Negative Negative [facility] Work Phone: Blood erythrocytes count (nu mber/volume)on 02-15-2022 RBC (Bld) [#/Vol] 4.41 10*6/uL 4.2-5.4 [facility] Work Phone: Blood hemoglobin measurement (mass/volume)on 02-15-2022 Hemoglobin (Bld) [Mass/Vol] 13.7 g/dL 12.0-15. 0 [facility] Work Phone: Blood lymphocytes/100 leukoc yteson 02-15-2022 Lymphocytes/100 WBC (Bld) 24.0 % 19-41 [facility] Work Phone: Blood monocytes/100 leukocyt eson 02-15-2022 Monocytes/100 WBC (Bld) 9.1 % 0-10 [facility] Work Phone: Blood platelet mean volumeon 02-15-2022 Platelet mean volume (Bld) [Entitic vol] 10.1 fL 6.2-12.0 [facility] Work Phone: CBC AND ELECTRONIC DIFFon Basophils (Bld) [#/Vol] 0.09 10*3/uL Normal 0.00-0.15 [facility] Comment on above: Performed By: #### L [id number] #### [facility] (DEFAULT) [address] [place] [address] Basophils/100 WBC (Bld) 1.4 % Normal [facility] Comment on above: Performed By: #### L [id number] #### [facility] (DEFAULT) [address] [place] [address] DIFF STATUS Electronic Differential Normal [facility] Comment on above: Performed By: #### L [id number] #### [facility] (DEFAULT) [address] [place] [address] Eosinophils (Bld) [#/Vol] 0.20 10*3/uL Normal 0.00-0.4 2 [facility] Comment on above: Performed By: #### L [id number] #### [facility] (DEFAULT) [address] [address] Eosinophils/100 WBC (Bld) 3.1 % Normal [facility] Comment on above: Performed By: #### L [id number] #### [facility] (DEFAULT) [address] [address] Hematocrit (Bld) [Volume fraction] 43.8 % Normal 34.9-44.3 [facility] Comment on above: Performed By: #### L [id number] #### [facility] (DEFAULT) [address] [address] Hemoglobin (Bld) [Mass/Vol] 13.8 g/dL Normal 11.4-15. 2 [facility] Comment on above: Performed By: #### L [id number] #### [facility] (DEFAULT) [address] [address] Immature Grans % 0.2 % Normal [facility] Comment on above: Performed By: #### L [id number] #### [facility] (DEFAULT) [address] [address] Immature Grans Absolute <0.04 Normal <=0.09 [facility] Comment on above: Performed By: #### L [id number] #### [facility] (DEFAULT) [address] [address] Lymphocytes (Bld) [#/Vol] 2.51 10*3/uL Normal 1.16-3.5 1 [facility] Comment on above: Performed By: #### L AB980 #### [facility] (DEFAULT) [address] [address] Lymphocytes/100 WBC (Bld) 38.6 % Normal [facility] Comment on above: Performed By: #### L AB980 #### [facility] (DEFAULT) [address] [address] MCV (RBC) [Entitic vol] 96.1 fL Normal 79.6-97.7 [facility] Comment on above: Performed By: #### L [id number] #### [facility] (DEFAULT) [address] [address] Mean Cell Hgb 30.3 pg Normal 25.9-33.9 [facility] Comment on above: Performed By: #### L [id number] #### [facility] (DEFAULT) [address] [address] Mean Cell Hgb Conc 31.5 g/dL Normal 31.4-35.9 [facility] Comment on above: Performed By: #### L [id number] #### [facility] (DEFAULT) [address] [address] Monocytes (Bld) [#/Vol] 0.51 10*3/uL Normal 0.22-0.87 [facility] Comment on above: Performed By: #### L [id number] #### [facility] (DEFAULT) [address] [address] Monocytes/100 WBC (Bld) 7.8 % Normal [facility] Comment on above: Performed By: #### L [id number] #### [facility] (DEFAULT) [address] [address] Nucleated RBC 0.0 /100 WBC Normal <=0.2 [facility] Comment on above: Performed By: #### L [id number] #### [facility] (DEFAULT) [address] [address] Platelet mean volume (Bld) [Entitic vol] 10.0 fL Normal 8.5-12.2 [facility] Comment on above: Performed By: #### L [id number] #### [facility] (DEFAULT) [address] [address] Platelets (Bld) [#/Vol] 250 10*3/uL Normal 150-393 [facility] Comment on above: Performed By: #### L [id number] #### [facility] (DEFAULT) [address] [place] [address] RBC (Bld) [#/Vol] 4.56 10*6/uL Normal 3.91-5.04 [facility] Comment on above: Performed By: #### L [id number] #### [facility] (DEFAULT) [address] [place] [address] RBC Distribution 12.9 % Normal 10.8-14.9 [facility] Comment on above: Performed By: #### L [id number] #### [facility] (DEFAULT) [address] [place] [address] Segs + Bands Auto 48.9 % Normal [facility] Comment on above: Performed By: #### L [id number] #### [facility] (DEFAULT) [address] [place] [address] Segs + Bands,Absolute Auto 3.18 K/uL Normal 1.64-7.28 [facility] Comment on above: Performed By: #### L [id number] #### [facility] (DEFAULT) [address] [place] [address] WBC (Bld) [#/Vol] 6.50 10*3/uL Normal 3.99-11.19 [facility] Comment on above: Performed By: #### L [id number] #### [facility] (DEFAULT) [address] [place] [address] Basophils (Bld) [#/Vol] 0.09 10*3/uL 0.00 - 0.15 K/uL [facility] Basophils/100 WBC (Bld) 1.4 % [facility] Differential cell count method Nom (Bld) Electronic Differential [facility] Eosinophils (Bld) [#/Vol] 0.20 10*3/uL 0. 00 - 0.42 K/uL [facility] Eosinophils/100 WBC (Bld) 3.1 % [facility] Erythrocyte distribution width (RBC) [Ratio] 12.9 % 10.8 - 14.9 % [facility] Hematocrit (Bld) [Volume fraction] 43.8 % 34.9 - 44.3 % [facility] Hemoglobin (Bld) [Mass/Vol] 13.8 g/dL 11.4 - 15.2 g/dL [facility] Immature granulocytes (Bld) [#/Vol] 10*3/uL <=0.09 K/uL [facility] Immature granulocytes/100 WBC (Bld) 0.2 % [facility] Lymphocytes (Bld) [#/Vol] 2.51 10*3/uL 1. 16 - 3.51 K/uL [facility] Lymphocytes/100 WBC (Bld) 38.6 % [facility] MCH (RBC) [Entitic mass] 30.3 pg 25. 9 - 33.9 pg [facility] MCHC (RBC) [Mass/Vol] 31.5 g/dL 31.4 - 35.9 g/dL [facility] MCV (RBC) [Entitic vol] 96.1 fL 79.6 - 97.7 fL [facility] Monocytes (Bld) [#/Vol] 0.51 10*3/uL 0.22 - 0.87 K/uL [facility] Monocytes/100 WBC (Bld) 7.8 % [facility] Neutrophils (Bld) [#/Vol] 3.18 10*3/uL 1. 64 - 7.28 K/uL [facility] Nucleated RBC/100 WBC (Bld) [Ratio] 0.0 % <=0.2 /100 WBC [facility] Platelet mean volume (Bld) [Entitic vol] 10.0 fL 8.5 - 12.2 fL [facility] Platelets (Bld) [#/Vol] 250 10*3/uL 150 - 393 K/uL [facility] RBC (Bld) [#/Vol] 4.56 10*6/uL [facility] Segmented neutrophils/100 WBC (Bld) 48.9 % [facility] WBC (Bld) [#/Vol] 6.50 10*3/uL 3.99 - 11.19 K/uL [facility] CHM 7 - EDon 02-15-2022 Anion gap [Moles/Vol] 13 mmol/L Normal 7-17 [facility] Comment on above: Performed By: #### H HESHAM BOSE, C7ED #### [facility] (DEFAULT) [address] [place] [address] Chloride [Moles/Vol] 102 mmol/L Normal 98-108 [facility] Comment on above: Performed By: #### HESHAM RODARTE, WilmaED #### [facility] (DEFAULT) [address] [place] [address] CO2 [Moles/Vol] 25 mmol/L Normal 21-31 [facility] Comment on above: Performed By: #### HESHAM RODARTE C7ED #### [facility] (DEFAULT) [address] [place] [address] Creatinine [Mass/Vol] 0.73 mg/dL Normal 0.50-1.20 [facility] Comment on above: Performed By: #### HESHAM RODARET, C7ED #### [facility] (DEFAULT) [address] [place] [address] GFR/1.73 sq M.predicted among non-blacks MDRD (S/P/Bld) [Vol rate/Area] 81 mL/min/{1.73_m2} Normal >=60 [facility] Comment on above: Result Comment: Repo rted eGFR is based on the CKD-EPI 2020 equation using creatinine, age, and sex. Performed By: #### H HESHAM BOSE, C7ED #### [facility] (DEFAULT) [address] [place] [address] Glucose [Mass/Vol] 94 mg/dL Normal 70-99 [facility] Comment on above: Performed By: #### HESHAM RODARTE C7ED #### [facility] (DEFAULT) [address] [place] [address] Osmolality [Osmolality] 286 mosm/kg Normal 278-305 [facility] Comment on above: Performed By: #### HESHAM RODARTE, C7ED #### [facility] (DEFAULT) [address] [place] [address] Potassium [Moles/Vol] 3.6 mmol/L Normal 3.5-5.0 [facility] Comment on above: Performed By: #### HESHAM RODARTE C7ED #### [facility] (DEFAULT) [address] [place] [address] Sodium [Moles/Vol] 136 mmol/L Normal 135-145 [facility] Comment on above: Performed By: #### HESHAM RODARTE C7ED #### [facility] (DEFAULT) [address] [place] [address] Urea nitrogen [Mass/Vol] 17 mg/dL Normal 7-25 [facility] Comment on above: Performed By: #### HESHAM RODARTE C7ED #### [facility] (DEFAULT) [address] [place] [address] Urea nitrogen/Creatinine [Mass ratio] 23 mg/mg Normal [facility] Comment on above: Performed By: #### HESHAM RODARTE C7ED #### [facility] (DEFAULT) [address] [place] [address] Anion gap [Moles/Vol] 13 mmol/L 7 - 17 mmol/L [facility] Chloride [Moles/Vol] 102 mmol/L 98 - 10 8 mmol/L [facility] CO2 [Moles/Vol] 25 mmol/L 21 - 31 mmol/L [facility] Creatinine [Mass/Vol] 0.73 mg/dL 0.50 - 1.20 mg/dL [facility] GFR/1.73 sq M.predicted CKD-EPI (S/P/Bld) [Vol rate/Area] 81 >=60 mL/min/1.7 3m2 [facility] Comment on above: Reported eGFR is bas ed on the CKD-EPI 2020 equation using creatinine, age, and sex. Glucose [Mass/Vol] 94 mg/dL 70 - 99 mg/dL [facility] Osmolality Calc [Osmolality] 286 [facility] Potassium [Moles/Vol] 3.6 mmol/L 3.5 - 5.0 mmol/L [facility] Sodium [Moles/Vol] 136 mmol/L 135 - 145 mmol/L [facility] Urea nitrogen [Mass/Vol] 17 mg/dL 7 - 25 mg/dL [facility] Urea nitrogen/Creatinine [Mass ratio] 23 mg/mg [facility] CT CEREBRAL PERFUSION ANALYS Catie 02-15-2022 Radiology Study observation (narrative) [facility] CT Head WO contraston 2021 Radiology Study observation (narrative) [facility] Determination of erythrocyte mean corpuscular volume (MCV)on 02-15-2022 MCV (RBC) [Entitic vol] 93.2 fL 81-99 [facility] Work Phone: Glucose Glucometer (BldC) [M ass/Vol]on 02-15-2022 Glucose [Mass/Vol] 98 mg/dL 74-106 [facility] Work Phone: Comment on above: MANAGEMENT OF PATIEN T CARE PER NURSING PROTOCOL HEPATIC FUNCTION PANELon Albumin [Mass/Vol] 4.1 g/dL Normal 3.5-5.0 [facility] Comment on above: Performed By: #### HESHAM RODARTE C7ED #### [facility] (DEFAULT) [address] [place] [address] ALP [Catalytic activity/Vol] 56 U/L Normal 32-126 [facility] Comment on above: Performed By: #### HESHAM RODARTE, C7ED #### [facility] (DEFAULT) [address] [place] [address] ALT [Catalytic activity/Vol] 27 U/L Normal 9-48 [facility] Comment on above: Performed By: #### Rubén BOSE LABTIFFANIE1, C7ED #### [facility] (DEFAULT) [address] [place] [address] AST [Catalytic activity/Vol] 30 U/L Normal 10-39 [facility] Comment on above: Performed By: #### Rubén BOSE LABTIFFANIE1, C7ED #### [facility] (DEFAULT) [address] [place] [address] Bilirubin [Mass/Vol] 0.6 mg/dL Normal <1.5 [facility] Comment on above: Performed By: #### Rubén BOSE, LABHSTIFFANIE1, C7ED #### [facility] (DEFAULT) [address] [place] [address] Bilirubin.indirect [Mass/Vol] mg/dL Normal <0.3 [facility] Comment on above: Performed By: #### Rubén BOSE LABLOU, C7ED #### [facility] (DEFAULT) [address] [place] [address] Protein [Mass/Vol] 6.9 g/dL Normal 6.4-8.3 [facility] Comment on above: Performed By: #### Rubén BOSE LABHSTI1, C7ED #### [facility] (DEFAULT) [address] [place] [address] Albumin [Mass/Vol] 4.1 g/dL 3.5 - 5.0 g/dL [facility] ALP [Catalytic activity/Vol] 56 U/L 32 - 126 U/L [facility] ALT [Catalytic activity/Vol] 27 U/L 9 - 48 U/L [facility] AST [Catalytic activity/Vol] 30 U/L 10 - 39 U/L [facility] Bilirubin [Mass/Vol] 0.6 mg/dL <1.5 [facility] Bilirubin.direct [Mass/Vol] mg/dL <0.3 mg/ dL [facility] Protein [Mass/Vol] 6.9 g/dL 6.4 - 8.3 g/dL [facility] HIGH SENSITIVITY TROPONIN I - SINGLE ORDERon 02-15-2022 hs-Troponin I 7 ng/L Normal <34 [facility] Comment on above: Order Comment: Acute Coronary Syndrome (ACS): Initial Evaluation and Management: [email or web address] Performed By: #### H , LABHSTI1, C7ED #### [facility] (DEFAULT) [address] [place] [address] Interpretation and review of laboratory results Normal [facility] Troponin I.cardiac DL <= 0.01 ng/mL [Mass/Vol] 7 ng/L <34 [facility] Hematocrit Auto (Bld) [Volum e fraction]on 02-15-2022 Hematocrit (Bld) [Volume fraction] 41.1 % 37-47 [facility] Work Phone: INR in Blood by Coagulation assayon 02-15-2022 INR Coag (Bld) [Relative time] 1.1 {INR} [facility] Work Phone: Ketones Test strip Ql (U)on 02-15-2022 Ketones Ql (U) Negative Negative [facility] Work Phone: Laboratory - Chemistry and C hemistry - challengeon 02-15-2022 CO2 [Moles/Vol] 26.0 mmol/L 21.0-32.0 [facility] Work Phone: Urea nitrogen/Creatinine [Mass ratio] 28.5 mg/mg 10-20 [facility] Work Phone: Laboratory - Coagulationon 0 02-15-2022 aPTT Coag (Bld) [Time] 27.4 s 24.1-36.2 [facility] Work Phone: PT Coag (PPP) [Time] 13.7 s 11.7-14.[address] [facility] Work Phone: Laboratory - Hematology and Cell countson 02-15-2022 Erythrocyte distribution width (RBC) [Entitic vol] 43.4 fL 35.1-43.9 [facility] Work Phone: Erythrocyte distribution width (RBC) [Ratio] 12.6 % 11.6-14.6 [facility] Work Phone: Immature granulocytes/100 WBC (Bld) 0.300 % 0.0-0.9 [facility] Work Phone: Comment on above: IG% - Immature Granu locytes (promyelocytes, myelocytes and metamyelocytes) > 1% indicates that a LEFT SHIFT is Present. MCH (RBC) [Entitic mass] 31.1 pg 27.0-32.0 [facility] Work Phone: Nucleated RBC/100 WBC (Bld) [Ratio] 0 % 0-5 [facility] Work Phone: MCHC Auto (RBC) [Mass/Vol]on 02-15-2022 MCHC (RBC) [Mass/Vol] 33.3 g/dL 32-36 [facility] Work Phone: Mucus LM Ql (Urine sed)on Mucus Ql (Urine sed) 0 SEEN /hpf [facility] Work Phone: Nitrite Test strip Ql (U)on 02-15-2022 Nitrite Ql (U) Negative Negative [facility] Work Phone: No Panel Informationon 02-15 Interpretation and review of laboratory results Normal [facility] Estimated Creatinine Clearance Calc 39.01 ml/min [facility] Work Phone: Estimated GFR (MDRD) Amer 87 mL/min >60 [facility] Work Phone: Comment on above: GFR Calc Estimated GFR (MDRD) Non-Af Amer 72 mL/min >60 [facility] Work Phone: Comment on above: Non- GFR Calc Troponin I High Sensitivity < 3 pg/mL 3.0-54.0 [facility] Work Phone: Comment on above: Please Note: New Sherry t Units and Gender Specific Reference Ranges. For more information see Policy Stat Procedure [place] High Sensitivity Troponin (TNIH) and attachments. PTINR-STROKEon 02-15-2022 INR Coag (PPP) [Relative time] 1.1 {INR} Normal 0.9-1.1 [facility] Comment on above: Performed By: #### P TISTR, PTT #### [facility] (DEFAULT) [address] [place] [address] PT Coag (PPP) [Time] 14.0 s Normal 11.9-14.2 [facility] Comment on above: Performed By: #### P TISTR, PTT #### [facility] (DEFAULT) [address] [place] [address] INR Coag (Bld) [Relative time] 1.1 {INR} [facility] Interpretation and review of laboratory results Normal [facility] PT Coag (PPP) [Time] 14.0 s [facility] PTTon 02-15-2022 aPTT Coag (Bld) [Time] 28.3 s Normal 24.0-34.3 [facility] Comment on above: Performed By: #### P TISTR, PTT #### [facility] (DEFAULT) [address] [place] [address] aPTT Coag (PPP) [Time] 28.3 s [facility] Platelets bldon 02-15-2022 Platelets (Bld) [#/Vol] 306 10*3/uL 150-450 [facility] Work Phone: Protein Test strip Ql (U)on 02-15-2022 Protein Ql (U) Negative Negative [facility] Work Phone: Serum or plasma calcium alissa urement (mass/volume)on 02-15-2022 Calcium [Mass/Vol] 9.2 mg/dL 8.5-10.1 [facility] Work Phone: Serum or plasma creatinine m easurement (mass/volume)on 02-15-2022 Creatinine [Mass/Vol] 0.81 mg/dL 0.55-1.02 [facility] Work Phone: Comment on above: The validity of the calculated GFR & GFRAA in patients over 70 years has not been determined. Clinical correlation is essential. Serum or plasma urea nitroge n measurement (mass/volume)on 02-15-2022 Urea nitrogen [Mass/Vol] 23 mg/dL 7-18 [facility] Work Phone: Squamous epithelial cells de tection in urine sediment by light microscopyon 02-15-2022 Epithelial cells.squamous LM Ql (Urine sed) 0 SEEN /hpf 5-10 [facility] Work Phone: Thin prep Papanicolaou smear with manual screeningon 02-15-2022 Thin prep Papanicolaou smear with manual screening 7 5-15 [facility] Work Phone: Urine blood detectionon 02-05 RBC Ql (U) Negative Negative [facility] Work Phone: RBC Ql (U) 0 SEEN /hpf 0-5 [facility] Work Phone: Urine clarityon 02-15-2022 Clarity (U) Clear Clear [facility] Work Phone: Urine color determinationon 02-15-2022 Color (U) Yellow Yellow [facility] Work Phone: Urine glucose detectionon Glucose Ql (U) Normal mg/dl Normal [facility] Work Phone: Urine leukocyte esterase det ection by dipstickon 02-15-2022 Leukocyte esterase Test strip Ql (U) Negative Negative [facility] Work Phone: Urine pHon 02-15-2022 pH (U) 6.5 [pH] 5.0 - 8.0 [facility] Work Phone: Urine sediment bacteria coun t by microscopy (number/high power field)on 02-15-2022 Bacteria LM.HPF (Urine sed) [#/Area] 0 /[HPF] None Seen [facility] Work Phone: Urine specific gravity measu rementon 02-15-2022 Specific gravity (U) [Rel density] 1.010 1.002-1.03 0 [facility] Work Phone: Urobilinogen Auto test strip Ql (U)on 02-15-2022 Urobilinogen Ql (U) Normal mg/dl Normal [facility] Work Phone: No Panel Informationon 10-28 Miscellaneous Test See comment [facility] Work Phone: Comment on above: Sent directly to [facility] facility per ordering physician. XR Lumbar spine 3 Viewson IMPRESSION: Demineralization and marked osteoarthritis. Floor Covering Printer: LORA Transcribe Date/Time: Aug 26 2020 9:06A Dictated by : HERNANDEZ ORR MD This examination was interpreted and the report reviewed and electronically signed by: HERNANDEZ ORR MD on Aug 26 2020 9:08AM [facility] DIVISION OF RADIOLOGY * * *Final Report* [...] at that interspace. DIVISION OF RADIOLOGY Provider, Rosalva Goldberg - 08/26/2020 * * *Final Report* * [...] interspace. IMPRESSION IMPRESSION: Demineralization and marked osteoarthritis. Floor Covering Printer: LORA Transcribe Date/Time: Aug 26 2020 9:06A Dictated by : HERNANDEZ ORR MD This examination was interpreted and the report reviewed and electronically signed by: HERNANDEZ ORR MD on Aug 26 2020 9:08AM EST [facility] Radiology Study observation (narrative) [facility] XR Lumbar spine 3 ViewsOrder ed By: [facility] Provider on 08-26-2020 [facility] Vital Signs Date Time Vital Sign Value Performing Clinician Facility 06-29-2025 10:06-0400 Body height 152.[address] Deepika Fabian MD Work Phone: [facility] 06-29-2025 10:06-0400 Body mass index (BMI) [Ratio] 21.1 kg/m2 Dr. Deepika Fabian MD Work Phone: [facility] 06-29-2025 10:06-0400 Body temperature 97.6 [degF] Dr. Deepika Fabian MD Work Phone: [facility] 06-29-2025 10:06-0400 Body weight 48.[address] Deepika Fabian MD Work Phone: [facility] 06-29-2025 10:06-0400 Diastolic blood pressure 80 mm[Hg] Dr. Deepika Fabian MD Work Phone: [facility] 06-29-2025 10:06-0400 Respiratory rate 16 /min Dr. Deepika Fabian MD Work Phone: [facility] 06-29-2025 10:06-0400 Systolic blood pressure 120 mm[Hg] Dr. Deepika Fabian MD Work Phone: [facility] 03-31-2025 08:09-0400 Body height 152.[address] Deepika Fabian MD Work Phone: [facility] 03-31-2025 08:09-0400 Body mass index (BMI) [Ratio] 20.9 kg/m2 Dr. Deepika Fabian MD Work Phone: [facility] 03-31-2025 08:09-0400 Body temperature 98 [degF] Dr. Deepika Fabian MD Work Phone: [facility] 03-31-2025 08:09-0400 Body weight 48.[address] Deepika Fabian MD Work Phone: [facility] 03-31-2025 08:09-0400 Diastolic blood pressure 78 mm[Hg] Dr. Deepika Fabian MD Work Phone: [facility] 03-31-2025 08:09-0400 Heart rate 66 /min Dr. Deepika Fabian MD Work Phone: [facility] 03-31-2025 08:09-0400 Respiratory rate 12 /min Dr. Deepika Fabian MD Work Phone: [facility] 03-31-2025 08:09-0400 SaO2% (BldA) [Mass fraction] 97 % Dr. Deepika Fabian MD Work Phone: [facility] 03-31-2025 08:09-0400 Systolic blood pressure 132 mm[Hg] Dr. Deepika Fabian MD Work Phone: [facility] 01-28-2025 13:56-0400 Body height 152.[address] Deepika Fabian MD Work Phone: [facility] 01-28-2025 13:56-0400 Body mass index (BMI) [Ratio] 21.2 kg/m2 Dr. Deepika Fabian MD Work Phone: [facility] 01-28-2025 13:56-0400 Body weight 49.[address] Deepika Fabian MD Work Phone: [facility] 01-28-2025 13:56-0400 Diastolic blood pressure 75 mm[Hg] Dr. Deepika Fabian MD Work Phone: [facility] 01-28-2025 13:56-0400 Heart rate 70 /min Dr. Deepika Fabian MD Work Phone: [facility] 01-28-2025 13:56-0400 Respiratory rate 18 /min Dr. Deepika Fabian MD Work Phone: [facility] 01-28-2025 13:56-0400 SaO2% (BldA) [Mass fraction] 97 % Dr. Deepika Fabian MD Work Phone: [facility] 01-28-2025 13:56-0400 Systolic blood pressure 121 mm[Hg] Dr. Deepika Fabian MD Work Phone: [facility] 01-28-2025 10:12-0400 Body mass index (BMI) [Ratio] 20.9 kg/m2 Dr. Deepika Fabian MD Work Phone: [facility] 01-28-2025 10:12-0400 Body temperature 97.9 [degF] Dr. Deepika Fabian MD Work Phone: [facility] 01-28-2025 10:12-0400 Body weight 48.[address] Deepika Fabian MD Work Phone: [facility] 01-28-2025 10:12-0400 Diastolic blood pressure 80 mm[Hg] Dr. Deepika Fabian MD Work Phone: [facility] 01-28-2025 10:12-0400 Heart rate 66 /min Dr. Deepika Fabian MD Work Phone: [facility] 01-28-2025 10:12-0400 Respiratory rate 16 /min Dr. Deepika Fabian MD Work Phone: [facility] 01-28-2025 10:12-0400 SaO2% (BldA) [Mass fraction] 97 % Dr. Deepika Fabian MD Work Phone: [facility] 01-28-2025 10:12-0400 Systolic blood pressure 120 mm[Hg] Dr. Deepika Fabian MD Work Phone: [facility] 11-13-2024 15:20-0500 Diastolic blood pressure 70 mm[Hg] Dr. Deepika Fabian MD Work Phone: [facility] 11-13-2024 15:20-0500 Systolic blood pressure 130 mm[Hg] Dr. Deepika Fabian MD Work Phone: [facility] 11-13-2024 15:18-0500 Body mass index (BMI) [Ratio] 21.4 kg/m2 Dr. Deepika Fabian MD Work Phone: [facility] 11-13-2024 15:18-0500 Body weight 49.[address] Deepika Fabian MD Work Phone: [facility] 11-13-2024 15:18-0500 Heart rate 69 /min Dr. Deepika Fabian MD Work Phone: [facility] 11-13-2024 15:18-0500 Respiratory rate 18 /min Dr. Deepika Fabian MD Work Phone: [facility] 11-13-2024 15:18-0500 SaO2% (BldA) [Mass fraction] 95 % Dr. Deepika Fabian MD Work Phone: [facility] 11-13-2024 09:58-0500 Body mass index (BMI) [Ratio] 21.7 kg/m2 Dr. Deepika Fabian MD Work Phone: [facility] 11-13-2024 09:58-0500 Body temperature 96.3 [degF] Dr. Deepika Fabian MD Work Phone: [facility] 11-13-2024 09:58-0500 Body weight 50.[address] Deepika Fabian MD Work Phone: [facility] 11-13-2024 09:58-0500 Diastolic blood pressure 58 mm[Hg] Dr. Deepika Fabian MD Work Phone: [facility] 11-13-2024 09:58-0500 Heart rate 60 /min Dr. Deepika Fabian MD Work Phone: [facility] 11-13-2024 09:58-0500 Respiratory rate 16 /min Dr. Deepika Fabian MD Work Phone: [facility] 11-13-2024 09:58-0500 Systolic blood pressure 104 mm[Hg] Dr. Deepika Fabian MD Work Phone: [facility] 09-29-2023 05:09-0500 Diastolic blood pressure 59 mm[Hg] Dr. Deepika Fabian Work Phone: [facility] 09-29-2023 05:09-0500 Heart rate 70 /min Dr. Deepika Fabian Work Phone: [facility] 09-29-2023 05:09-0500 Respiratory rate 20 /min Dr. Deepika Fabian Work Phone: [facility] 09-29-2023 05:09-0500 SaO2% (BldA) [Mass fraction] 97 % Dr. Deepika Fabian Work Phone: [facility] 09-29-2023 05:09-0500 Systolic blood pressure 146 mm[Hg] Dr. Deepika Fabian Work Phone: [facility] 09-29-2023 01:36-0500 Body height 154.[address] Deepika Fabian Work Phone: [facility] 09-29-2023 01:36-0500 Body mass index (BMI) [Ratio] 20.2 kg/m2 Dr. Deepika Fabian Work Phone: [facility] 09-29-2023 01:36-0500 Body temperature 98 [degF] Dr. Deepika Fabian Work Phone: [facility] 09-29-2023 01:36-0500 Body weight 48.[address] Deepika Fabian Work Phone: [facility] 09-13-2023 11:03-0500 Body temperature 97.9 [degF] Dr. Deepika Fabian Work Phone: [facility] 09-13-2023 11:03-0500 Diastolic blood pressure 75 mm[Hg] Dr. Deepika Fabian Work Phone: [facility] 09-13-2023 11:03-0500 Heart rate 77 /min Dr. Deepika Fabian Work Phone: [facility] 09-13-2023 11:03-0500 Respiratory rate 12 /min Dr. Deepika Fabian Work Phone: [facility] 09-13-2023 11:03-0500 SaO2% (BldA) [Mass fraction] 93 % Dr. Deepika Fabian Work Phone: [facility] 09-13-2023 11:03-0500 Systolic blood pressure 125 mm[Hg] Dr. Deepika Fabian Work Phone: [facility] 07-31-2023 09:57-0400 Body mass index (BMI) [Ratio] 20.7 kg/m2 Dr. Deepika Fabian Work Phone: [facility] 07-31-2023 09:57-0400 Body temperature 97.8 [degF] Dr. Deepika Fabian Work Phone: [facility] 07-31-2023 09:57-0400 Body weight 49.[address] Deepika Fabian Work Phone: [facility] 07-31-2023 09:57-0400 Diastolic blood pressure 60 mm[Hg] Dr. Deepika Fabian Work Phone: [facility] 07-31-2023 09:57-0400 Heart rate 46 /min Dr. Deepika Fabian Work Phone: [facility] 07-31-2023 09:57-0400 Respiratory rate 16 /min Dr. Deepika Fabian Work Phone: [facility] 07-31-2023 09:57-0400 SaO2% (BldA) [Mass fraction] 92 % Dr. Deepika Fabian Work Phone: [facility] 07-31-2023 09:57-0400 Systolic blood pressure 108 mm[Hg] Dr. Deepika Fabian Work Phone: [facility] 07-10-2023 09:07-0400 Body mass index (BMI) [Ratio] 20.4 kg/m2 Dr. Deepika Fabian Work Phone: [facility] 07-10-2023 09:07-0400 Body temperature 96.1 [degF] Dr. Deepika Fabian Work Phone: [facility] 07-10-2023 09:07-0400 Body weight 49.[address] Deepika Fabian Work Phone: [facility] 07-10-2023 09:07-0400 Diastolic blood pressure 72 mm[Hg] Dr. Deepika Fabian Work Phone: [facility] 07-10-2023 09:07-0400 Heart rate 80 /min Dr. Deepika Fabian Work Phone: [facility] 07-10-2023 09:07-0400 Respiratory rate 18 /min Dr. Deepika Fabian Work Phone: [facility] 07-10-2023 09:07-0400 SaO2% (BldA) [Mass fraction] 99 % Dr. Deepika Fabian Work Phone: [facility] 07-10-2023 09:07-0400 Systolic blood pressure 124 mm[Hg] Dr. Deepika Fabian Work Phone: [facility] 06-27-2023 11:20-0400 Body temperature 97.8 [degF] Dr. Deepika Fabian Work Phone: [facility] 06-27-2023 11:20-0400 Diastolic blood pressure 71 mm[Hg] Dr. Deepika Fabian Work Phone: [facility] 06-27-2023 11:20-0400 Heart rate 62 /min Dr. Deepika Fabian Work Phone: [facility] 06-27-2023 11:20-0400 Respiratory rate 14 /min Dr. Deepika Fabian Work Phone: [facility] 06-27-2023 11:20-0400 SaO2% (BldA) [Mass fraction] 94 % Dr. Deepika Fabian Work Phone: [facility] 06-27-2023 11:20-0400 Systolic blood pressure 150 mm[Hg] Dr. Deepika Fabian Work Phone: [facility] 04-17-2023 12:56-0400 Body height 154.[address] Deepika Fabian Work Phone: [facility] 04-17-2023 12:56-0400 Body mass index (BMI) [Ratio] 20.2 kg/m2 Dr. Deepika Fabian Work Phone: [facility] 04-17-2023 12:56-0400 Body temperature 96.4 [degF] Dr. Deepika Fabian Work Phone: [facility] 04-17-2023 12:56-0400 Body weight 48.[address] Deepika Fabian Work Phone: [facility] 04-17-2023 12:56-0400 Diastolic blood pressure 80 mm[Hg] Dr. Deepika Fabian Work Phone: [facility] 04-17-2023 12:56-0400 Heart rate 70 /min Dr. Deepika Fabian Work Phone: [facility] 04-17-2023 12:56-0400 Respiratory rate 18 /min Dr. Deepika Fabian Work Phone: [facility] 04-17-2023 12:56-0400 SaO2% (BldA) [Mass fraction] 95 % Dr. Deepika Fabian Work Phone: [facility] 04-17-2023 12:56-0400 Systolic blood pressure 122 mm[Hg] Dr. Deepika Fabian Work Phone: [facility] 03-15-2023 15:57-0400 Diastolic blood pressure 84 mm[Hg] Dr. Deepika Fabian Work Phone: [facility] 03-15-2023 15:57-0400 Systolic blood pressure 144 mm[Hg] Dr. Deepika Fabian Work Phone: [facility] 03-15-2023 15:02-0400 Body height 154.[address] Deepika Fabian Work Phone: [facility] 03-15-2023 15:02-0400 Body mass index (BMI) [Ratio] 20.9 kg/m2 Dr. Deepika Fabian Work Phone: [facility] 03-15-2023 15:02-0400 Body temperature 97.5 [degF] Dr. Deepika Fabian Work Phone: [facility] 03-15-2023 15:02-0400 Body weight 50.[address] Deepika Fabian Work Phone: [facility] 03-15-2023 15:02-0400 Heart rate 72 /min Dr. Deepika Fabian Work Phone: [facility] 03-15-2023 15:02-0400 Respiratory rate 14 /min Dr. Deepika Fabian Work Phone: [facility] 03-15-2023 15:02-0400 SaO2% (BldA) [Mass fraction] 96 % Dr. Deepika Fabian Work Phone: [facility] 03-01-2023 13:50-0400 Body mass index (BMI) [Ratio] 20.7 kg/m2 Dr. Deepika Fabian Work Phone: [facility] 03-01-2023 13:50-0400 Body temperature 97.5 [degF] Dr. Deepika Fabian Work Phone: [facility] 03-01-2023 13:50-0400 Body weight 49.[address] Deepika Fabian Work Phone: [facility] 03-01-2023 13:50-0400 Diastolic blood pressure 78 mm[Hg] Dr. Deepika Fabian Work Phone: [facility] 03-01-2023 13:50-0400 Heart rate 90 /min Dr. Deepika Fabian Work Phone: [facility] 03-01-2023 13:50-0400 Respiratory rate 16 /min Dr. Deepika Fabian Work Phone: [facility] 03-01-2023 13:50-0400 SaO2% (BldA) [Mass fraction] 92 % Dr. Deepika Fabian Work Phone: [facility] 03-01-2023 13:50-0400 Systolic blood pressure 126 mm[Hg] Dr. Deepika Fabian Work Phone: [facility] 02-13-2023 15:14-0400 Body temperature 98.4 [degF] Dr. Deepika Fabian Work Phone: [facility] 02-13-2023 15:14-0400 Diastolic blood pressure 98 mm[Hg] Dr. Deepika Fabian Work Phone: [facility] 02-13-2023 15:14-0400 Heart rate 96 /min Dr. Deepika Fabian Work Phone: [facility] 02-13-2023 15:14-0400 Respiratory rate 18 /min Dr. Deepika Fabian Work Phone: [facility] 02-13-2023 15:14-0400 SaO2% (BldA) [Mass fraction] 94 % Dr. Deepika Fabian Work Phone: [facility] 02-13-2023 15:14-0400 Systolic blood pressure 150 mm[Hg] Dr. Deepika Fabian Work Phone: [facility] 02-12-2023 14:12-0400 Inhaled oxygen flow rate 2 L/min Dr. Deepika Fabian Work Phone: [facility] 02-09-2023 11:44-0400 Body height 154.[address] Deepika Fabian Work Phone: [facility] 02-09-2023 11:44-0400 Body weight 51.[address] Deepika Fabian Work Phone: [facility] 02-08-2023 14:03-0400 Body mass index (BMI) [Ratio] 21.4 kg/m2 Dr. Deepika Fabian Work Phone: [facility] 01-01-2023 11:34-0400 Body mass index (BMI) [Ratio] 20.2 kg/m2 Dr. Deepika Fabian Work Phone: [facility] 01-01-2023 11:34-0400 Body temperature 97.4 [degF] Dr. Deepika Fabian Work Phone: [facility] 01-01-2023 11:34-0400 Body weight 50.[address] Deepika Fabian Work Phone: [facility] 01-01-2023 11:34-0400 Diastolic blood pressure 82 mm[Hg] Dr. Deepika Fabian Work Phone: [facility] 01-01-2023 11:34-0400 Heart rate 77 /min Dr. Deepika Fabian Work Phone: [facility] 01-01-2023 11:34-0400 Respiratory rate 16 /min Dr. Deepika Fabian Work Phone: [facility] 01-01-2023 11:34-0400 SaO2% (BldA) [Mass fraction] 96 % Dr. Deepika Fabian Work Phone: [facility] 01-01-2023 11:34-0400 Systolic blood pressure 144 mm[Hg] Dr. Deepika Fabian Work Phone: [facility] 11-10-2022 16:48-0500 Diastolic blood pressure 68 mm[Hg] Dr. Vamsi Mota Work Phone: [facility] 11-10-2022 16:48-0500 Heart rate 83 /min Dr. Vamsi Mota Work Phone: [facility] 11-10-2022 16:48-0500 Respiratory rate 17 /min Dr. Vamsi Mota Work Phone: [facility] 11-10-2022 16:48-0500 Systolic blood pressure 119 mm[Hg] Dr. Vamsi Mota Work Phone: [facility] 11-10-2022 12:39-0500 SaO2% (BldA) [Mass fraction] 96 % Dr. Vamsi Mota Work Phone: [facility] 11-10-2022 10:40-0500 Body height 154.[address] Vamsi Mota Work Phone: [facility] 11-10-2022 10:40-0500 Body mass index (BMI) [Ratio] 21.7 kg/m2 Dr. Vamsi Mota Work Phone: [facility] 11-10-2022 10:40-0500 Body temperature 97.1 [degF] Dr. Vamsi Mota Work Phone: [facility] 11-10-2022 10:40-0500 Body weight 52.[address] Vamsi Mtoa Work Phone: [facility] 11-04-2022 11:00-0500 Body height 154.[address] Deepika Fabian Work Phone: [facility] 11-04-2022 11:00-0500 Body mass index (BMI) [Ratio] 21.7 kg/m2 Dr. Deepika Fabian Work Phone: [facility] 11-04-2022 11:00-0500 Body temperature 98.2 [degF] Dr. Deepika Fabian Work Phone: [facility] 11-04-2022 11:00-0500 Body weight 52.[address] Deepika Fabian Work Phone: [facility] 11-04-2022 11:00-0500 Diastolic blood pressure 57 mm[Hg] Dr. Deepika Fabian Work Phone: [facility] 11-04-2022 11:00-0500 Heart rate 83 /min Dr. Deepika Fabian Work Phone: [facility] 11-04-2022 11:00-0500 Respiratory rate 17 /min Dr. Deepika Fabian Work Phone: [facility] 11-04-2022 11:00-0500 SaO2% (BldA) [Mass fraction] 98 % Dr. Deepika Fabian Work Phone: [facility] 11-04-2022 11:00-0500 Systolic blood pressure 105 mm[Hg] Dr. Deepika Fabian Work Phone: [facility] 11-01-2022 18:16-0500 Diastolic blood pressure 52 mm[Hg] Dr. Deepika Fabian Work Phone: [facility] 11-01-2022 18:16-0500 Heart rate 81 /min Dr. Deepika Fabian Work Phone: [facility] 11-01-2022 18:16-0500 Respiratory rate 20 /min Dr. Deepika Fabian Work Phone: [facility] 11-01-2022 18:16-0500 SaO2% (BldA) [Mass fraction] 97 % Dr. Deepika Fabian Work Phone: [facility] 11-01-2022 18:16-0500 Systolic blood pressure 117 mm[Hg] Dr. Deepika Fabian Work Phone: [facility] 11-01-2022 14:19-0500 Body height 157.[address] Deepika Fabian Work Phone: [facility] 11-01-2022 14:19-0500 Body mass index (BMI) [Ratio] 19 kg/m2 Dr. Deepika Fabian Work Phone: [facility] 11-01-2022 14:19-0500 Body temperature 97.7 [degF] Dr. Deepika Fabian Work Phone: [facility] 11-01-2022 14:19-0500 Body weight 47.[address] Deepika Fabian Work Phone: [facility] 11-01-2022 08:33-0500 Body temperature 96.8 [degF] Dr. Deepika Fabian Work Phone: [facility] 11-01-2022 08:33-0500 Body weight 49.[address] Deepika Fabian Work Phone: [facility] 11-01-2022 08:33-0500 Diastolic blood pressure 66 mm[Hg] Dr. Deepika Fabian Work Phone: [facility] 11-01-2022 08:33-0500 Heart rate 88 /min Dr. Deepika Fabian Work Phone: [facility] 11-01-2022 08:33-0500 Respiratory rate 18 /min Dr. Deepika Fabian Work Phone: [facility] 11-01-2022 08:33-0500 SaO2% (BldA) [Mass fraction] 100 % Dr. Deepika Fabian Work Phone: [facility] 11-01-2022 08:33-0500 Systolic blood pressure 104 mm[Hg] Dr. Deepika Fabian Work Phone: [facility] 08-29-2022 16:26-0500 Body temperature 97 [degF] Dr. Deepika Fabian Work Phone: [facility] 08-29-2022 16:26-0500 Body weight 52.[address] Deepika Fabian Work Phone: [facility] 08-29-2022 16:26-0500 Diastolic blood pressure 76 mm[Hg] Dr. Deepika Fabian Work Phone: [facility] 08-29-2022 16:26-0500 Heart rate 56 /min Dr. Deepika Fabian Work Phone: [facility] 08-29-2022 16:26-0500 Respiratory rate 18 /min Dr. Deepika Fabian Work Phone: [facility] 08-29-2022 16:26-0500 SaO2% (BldA) [Mass fraction] 99 % Dr. Deepika Fabian Work Phone: [facility] 08-29-2022 16:26-0500 Systolic blood pressure 116 mm[Hg] Dr. Deepika Fabian Work Phone: [facility] 08-23-2022 13:20-0500 Body mass index (BMI) [Ratio] 20.2 kg/m2 Dr. Deepika Fabian Work Phone: [facility] 08-23-2022 13:20-0500 Body weight 51.[address] Deepika Fabian Work Phone: [facility] 08-23-2022 13:20-0500 Diastolic blood pressure 68 mm[Hg] Dr. Deepika Fabian Work Phone: [facility] 08-23-2022 13:20-0500 Heart rate 82 /min Dr. Deepika Fabian Work Phone: [facility] 08-23-2022 13:20-0500 Respiratory rate 16 /min Dr. Deepika Fabian Work Phone: [facility] 08-23-2022 13:20-0500 Systolic blood pressure 144 mm[Hg] Dr. Deepika Fabian Work Phone: [facility] 07-12-2022 16:28-0400 Body mass index (BMI) [Ratio] 20.3 kg/m2 Dr. Deepika Fabian Work Phone: [facility] 07-12-2022 16:28-0400 Body temperature 98.1 [degF] Dr. Deepika Fabian Work Phone: [facility] 07-12-2022 16:28-0400 Body weight 52.[address] Deepika Fabian Work Phone: [facility] 07-12-2022 16:28-0400 Diastolic blood pressure 68 mm[Hg] Dr. Deepika Fabian Work Phone: [facility] 07-12-2022 16:28-0400 Heart rate 83 /min Dr. Deepika Fabian Work Phone: [facility] 07-12-2022 16:28-0400 Respiratory rate 14 /min Dr. Deepika Fabian Work Phone: [facility] 07-12-2022 16:28-0400 SaO2% (BldA) [Mass fraction] 99 % Dr. Deepika Fabian Work Phone: [facility] 07-12-2022 16:28-0400 Systolic blood pressure 112 mm[Hg] Dr. Deepika Fabian Work Phone: [facility] 07-07-2022 11:19-0400 Diastolic blood pressure 71 mm[Hg] Dr. Deepika Fabian Work Phone: [facility] 07-07-2022 11:19-0400 Heart rate 86 /min Dr. Deepika Fabian Work Phone: [facility] 07-07-2022 11:19-0400 Respiratory rate 17 /min Dr. Deepika Fabian Work Phone: [facility] 07-07-2022 11:19-0400 SaO2% (BldA) [Mass fraction] 95 % Dr. Deepika Fabian Work Phone: [facility] 07-07-2022 11:19-0400 Systolic blood pressure 127 mm[Hg] Dr. Deepika Fabian Work Phone: [facility] 07-07-2022 08:18-0400 Body temperature 97.9 [degF] Dr. Deepika Fabian Work Phone: [facility] 07-07-2022 08:15-0400 Body mass index (BMI) [Ratio] 21.3 kg/m2 Dr. Deepika Fabian Work Phone: [facility] 07-07-2022 08:15-0400 Body weight 54.[address] Deepika Fabian Work Phone: [facility] 07-05-2022 15:03-0400 Body mass index (BMI) [Ratio] 22.8 kg/m2 Dr. Deepika Fabian Work Phone: [facility] 07-05-2022 15:03-0400 Body temperature 99 [degF] Dr. Deepika Fabian Work Phone: [facility] 07-05-2022 15:03-0400 Body weight 53.[address] Deepika Fabian Work Phone: [facility] 07-05-2022 15:03-0400 Diastolic blood pressure 90 mm[Hg] Dr. Deepika Fabian Work Phone: [facility] 07-05-2022 15:03-0400 Heart rate 65 /min Dr. Deepika Fabian Work Phone: [facility] 07-05-2022 15:03-0400 Respiratory rate 18 /min Dr. Deepika Fabian Work Phone: [facility] 07-05-2022 15:03-0400 SaO2% (BldA) [Mass fraction] 95 % Dr. Deepika Fabian Work Phone: [facility] 07-05-2022 15:03-0400 Systolic blood pressure 162 mm[Hg] Dr. Deepika Fabian Work Phone: [facility] 06-08-2022 08:46-0400 Body height 152.[address] Vamsi Mota Work Phone: [facility] Work Phone: 06-08-2022 08:46-0400 Body mass index (BMI) [Ratio] 22.4 kg/m2 Dr. Vamsi Mota Work Phone: [facility] Work Phone: 06-08-2022 08:46-0400 Body temperature 98.4 [degF] Dr. Vamsi Mota Work Phone: [facility] Work Phone: 06-08-2022 08:46-0400 Body weight 52.[address] Vamsi Mota Work Phone: [facility] Work Phone: 06-08-2022 08:46-0400 Diastolic blood pressure 76 mm[Hg] Dr. Vamsi Mota Work Phone: [facility] Work Phone: 06-08-2022 08:46-0400 Heart rate 68 /min Dr. Vamsi Mota Work Phone: [facility] Work Phone: 06-08-2022 08:46-0400 Respiratory rate 14 /min Dr. Vamsi Mota Work Phone: [facility] Work Phone: 06-08-2022 08:46-0400 SaO2% (BldA) [Mass fraction] 95 % Dr. Vamsi Mota Work Phone: [facility] Work Phone: 06-08-2022 08:46-0400 Systolic blood pressure 130 mm[Hg] Dr. Vamsi Mota Work Phone: [facility] Work Phone: 05-25-2022 16:31-0400 Body mass index (BMI) [Ratio] 22.8 kg/m2 Dr. Vamsi Mota Work Phone: [facility] Work Phone: 05-25-2022 16:31-0400 Body temperature 98.4 [degF] Dr. Vamsi Mota Work Phone: [facility] Work Phone: 05-25-2022 16:31-0400 Body weight 53.[address] Vamsi Mota Work Phone: [facility] Work Phone: 05-25-2022 16:31-0400 Diastolic blood pressure 74 mm[Hg] Dr. Vamsi Mota Work Phone: [facility] Work Phone: 05-25-2022 16:31-0400 Heart rate 68 /min Dr. Vamsi Mota Work Phone: [facility] Work Phone: 05-25-2022 16:31-0400 Respiratory rate 14 /min Dr. Vamsi Mota Work Phone: [facility] Work Phone: 05-25-2022 16:31-0400 SaO2% (BldA) [Mass fraction] 99 % Dr. Vamsi Mota Work Phone: [facility] Work Phone: 05-25-2022 16:31-0400 Systolic blood pressure 136 mm[Hg] Dr. Vamsi Mota Work Phone: [facility] Work Phone: 05-04-2022 15:41-0400 Body height 152.[address] Vamsi Mota Work Phone: [facility] Work Phone: 05-04-2022 15:41-0400 Body mass index (BMI) [Ratio] 22 kg/m2 Dr. Vamsi Mota Work Phone: [facility] Work Phone: 05-04-2022 15:41-0400 Body temperature 98.6 [degF] Dr. Vamsi Mota Work Phone: [facility] Work Phone: 05-04-2022 15:41-0400 Body weight 51.[address] Vamsi Mota Work Phone: [facility] Work Phone: 05-04-2022 15:41-0400 Diastolic blood pressure 76 mm[Hg] Dr. Vamsi Mota Work Phone: [facility] Work Phone: 05-04-2022 15:41-0400 Heart rate 81 /min Dr. Vamsi Mota Work Phone: [facility] Work Phone: 05-04-2022 15:41-0400 Respiratory rate 14 /min Dr. Vamsi Mota Work Phone: [facility] Work Phone: 05-04-2022 15:41-0400 SaO2% (BldA) [Mass fraction] 97 % Dr. Vamsi Mota Work Phone: [facility] Work Phone: 05-04-2022 15:41-0400 Systolic blood pressure 136 mm[Hg] Dr. Vamsi Mota Work Phone: [facility] Work Phone: 03-02-2022 13:25-0400 Body height 152.[address] Vamsi Mota Work Phone: [facility] Work Phone: 03-02-2022 13:25-0400 Body mass index (BMI) [Ratio] 23 kg/m2 Dr. Vamsi Mota Work Phone: [facility] Work Phone: 03-02-2022 13:25-0400 Body temperature 97.9 [degF] Dr. Vamsi Mota Work Phone: [facility] Work Phone: 03-02-2022 13:25-0400 Body weight 53.[address] Vamsi Mota Work Phone: [facility] Work Phone: 03-02-2022 13:25-0400 Diastolic blood pressure 80 mm[Hg] Dr. Vamsi Mota Work Phone: [facility] Work Phone: 03-02-2022 13:25-0400 Heart rate 81 /min Dr. Vamsi Mota Work Phone: [facility] Work Phone: 03-02-2022 13:25-0400 Respiratory rate 16 /min Dr. Vamsi Mota Work Phone: [facility] Work Phone: 03-02-2022 13:25-0400 SaO2% (BldA) [Mass fraction] 99 % Dr. Vamsi Mota Work Phone: [facility] Work Phone: 03-02-2022 13:25-0400 Systolic blood pressure 118 mm[Hg] Dr. Vamsi Mota Work Phone: [facility] Work Phone: 02-24-2022 11:00-0400 Body height 152.4 cm Harris Mota MD Work Phone: [facility] 02-24-2022 11:00-0400 Body weight 52.48 kg Harris Mota MD Work Phone: [facility] 02-24-2022 11:00-0400 Diastolic blood pressure 68 mm[Hg] Harris Mota MD Work Phone: [facility] 02-24-2022 11:00-0400 Heart rate 69 /min Harris Mota MD Work Phone: [facility] 02-24-2022 11:00-0400 Systolic blood pressure 134 mm[Hg] Harris Mota MD Work Phone: [facility] 02-22-2022 11:37-0400 Body mass index (BMI) [Ratio] 21.7 kg/m2 Dr. Vamsi Mota Work Phone: [facility] Work Phone: 02-22-2022 11:37-0400 Body weight 52.[address] Vamsi Mota Work Phone: [facility] Work Phone: 02-22-2022 11:37-0400 Diastolic blood pressure 67 mm[Hg] Dr. Vamsi Mota Work Phone: [facility] Work Phone: 02-22-2022 11:37-0400 Heart rate 60 /min Dr. Vamsi Mota Work Phone: [facility] Work Phone: 02-22-2022 11:37-0400 Respiratory rate 16 /min Dr. Vamsi Mota Work Phone: [facility] Work Phone: 02-22-2022 11:37-0400 SaO2% (BldA) [Mass fraction] 100 % Dr. Vamsi Mota Work Phone: [facility] Work Phone: 02-22-2022 11:37-0400 Systolic blood pressure 135 mm[Hg] Dr. Vamsi Mota Work Phone: [facility] Work Phone: 02-17-2022 11:20-0400 Body temperature 97.81 [degF] Sanju White MD Work Phone: [facility] 02-17-2022 11:20-0400 Diastolic blood pressure 64 mm[Hg] Sanju White MD Work Phone: [facility] 02-17-2022 11:20-0400 Heart rate 59 /min Sanju White MD Work Phone: [facility] 02-17-2022 11:20-0400 Respiratory rate 16 /min Sanju White MD Work Phone: [facility] 02-17-2022 11:20-0400 SaO2% (BldA) [Mass fraction] 96 % Sanju White MD Work Phone: [facility] 02-17-2022 11:20-0400 Systolic blood pressure 144 mm[Hg] Sanju White MD Work Phone: 5([phone] [address] 02-17-2022 08:51-0400 Body height 154.9 cm Sanju White MD Work Phone: 7(715)[phone] [address] 02-17-2022 08:51-0400 Body mass index (BMI) [Ratio] 21.96 kg/m2 Sanju White MD Work Phone: 5(228)[phone] [address] 02-17-2022 08:51-0400 Body weight 52.7 kg Sanju White MD Work Phone: 1(538)[phone] [address] 02-15-2022 18:00-0400 Diastolic blood pressure 85 mm[Hg] [facility] Work Phone: 02-15-2022 18:00-0400 Heart rate 62 /min [facility] Work Phone: 02-15-2022 18:00-0400 Respiratory rate 18 /min [facility] Work Phone: 02-15-2022 18:00-0400 SaO2% (BldA) [Mass fraction] 98 % [facility] Work Phone: 02-15-2022 18:00-0400 Systolic blood pressure 147 mm[Hg] [facility] Work Phone: 02-15-2022 15:40-0400 Body height 154.99 cm [facility] Work Phone: 02-15-2022 15:40-0400 Body mass index (BMI) [Ratio] 23.6 kg/m2 [facility] Work Phone: 02-15-2022 15:40-0400 Body weight 56.6 kg [facility] Work Phone: 02-15-2022 15:26-0400 Body temperature 97.8 [degF] [facility] Work Phone: Encounters Encounter Date Encounter Type Care Provider Facility Start: 06-29-2025 End: 06-29-[address] Deepika Fabian MD -[facility] Work Phone: Start: 06-29-2025 End: 06-29-2025 ambulatory Deepika Fabian Facility:[facility] Start: 04-07-2025 Non-patient / Non-visit Dr. Yana Fulton MD -[facility] Work Phone: Start: 03-31-2025 End: 03-31-[address] Deepika Fabian MD Work Phone: -[facility] Start: 03-31-2025 End: 03-31-[address] Deepika Fabian MD -[facility] Start: 03-31-2025 End: 03-31-[address] Deepika Fabian MD -[facility] Work Phone: Start: 03-31-2025 End: 03-31-[address] Deepika Fabian MD Work Phone: [facility] Work Phone: Start: 03-31-2025 End: 03-31-2025 ambulatory Deepika Fabian Facility:[facility] Start: 01-28-2025 End: 01-28-2025 Patient encounter procedure Emma Pitts [place] -[facility] Work Phone: Start: 01-28-2025 End: 01-28-2025 ambulatory Emma Pitts Facility:[facility] Start: 01-28-2025 End: 01-28-[address] Deepika Fabian MD -[facility] Work Phone: Start: 01-28-2025 End: 01-28-[address] Deepika Fabian MD Work Phone: [facility] Work Phone: Start: 01-28-2025 End: 01-28-2025 ambulatory Deepika [place] Facility:[facility] Start: 11-13-2024 End: 11-13-2024 Patient encounter procedure Emma Pitts [place] -[facility] Work Phone: Start: 11-13-2024 End: 11-13-2024 ambulatory Emma Pitts Facility:[facility] Start: 11-13-2024 End: 11-13-[address] Deepika Fabian MD -[facility] Work Phone: Start: 11-13-2024 End: 11-13-2024 ambulatory Deepika Fabian Facility:[facility] Start: 08-05-2024 End: 08-05-2024 ambulatory Deepika [place] Facility:[facility] Start: 08-05-2024 End: 08-05-2024 ambulatory Deepika Caren Facility:[facility] Start: 07-28-2024 End: 07-28-2024 ambulatory Deepika [place] Facility:[facility] Start: 07-10-2024 End: 07-10-2024 ambulatory Deepika [place] Facility:[facility] Start: 09-29-2023 End: 09-29-2023 Emergency department patient visit Dr. Deepika Fabian Work Phone: [facility]-Emergency Department Work Phone: Start: 09-13-2023 End: 09-13-[address] Deepika Fabian Work Phone: [facility] Work Phone: Start: 07-31-2023 End: 07-31-[address] Deepika Fabian Work Phone: [facility] Work Phone: Start: 07-10-2023 End: 07-10-[address] Deepika Fabian Work Phone: [facility] Internal [facility] Work Phone: Start: 06-27-2023 End: 06-27-[address] Deepika Fabian Work Phone: [facility]-Laboratory, Specimen Work Phone: Start: 06-27-2023 End: 06-27-[address] Deepika Fabian Work Phone: [facility] Work Phone: Start: 04-24-2023 End: 04-24-[address] Deepika Fabian Work Phone: [facility] Work Phone: Start: 04-24-2023 End: 04-24-[address] Deepika Fabian Work Phone: [facility] [place], [facility] Work Phone: Start: 04-17-2023 End: 04-17-[address] Deepika Fabian Work Phone: [facility] Internal Medicine Work Phone: Start: 04-04-2023 ambulatory Grace Ryder [facility] Comment on above: Population Health Na [facility] Out[facility] Start: 03-29-2023 End: 03-29-[address] Deepika Fabian Work Phone: [facility] Gastroenterology Work Phone: Start: 03-15-2023 End: 03-15-[address] Deepika Fabian Work Phone: [facility] Start: 03-01-2023 End: 03-01-[address] Deepika Fabian Work Phone: [facility] Work Phone: Start: 03-01-2023 End: 03-01-[address] Deepika Fabian Work Phone: [facility]-Laboratory, [place] Start: 03-01-2023 End: 03-01-[address] Deepika Fabian Work Phone: [facility] Start: 03-01-[address] Deepika Fabian Work Phone: [facility] Start: 02-22-2023 End: 02-22-[address] Deepika Fabian Work Phone: [facility] Work Phone: Start: 02-20-2023 End: 02-20-[address] Deepika Fabian Work Phone: [facility] Work Phone: Start: 02-15-[address] Deepika Fabian Work Phone: [facility] Start: 02-14-2023 End: 02-14-[address] Deepika Fabian Work Phone: [facility] Work Phone: Start: 02-13-2023 Non-patient / Non-visit Dr. Deepika Fabian Work Phone: [facility] Phys[facility] Start: 02-12-2023 Non-patient / Non-visit Dr. Deepika Fabian Work Phone: [facility] Start: 02-11-2023 Non-patient / Non-visit Dr. Deepika Fabian Work Phone: [facility] Start: 02-10-2023 End: 02-10-2023 Non-patient / Non-visit Dr. Deepika Fabian Work Phone: [facility] Start: 02-10-2023 Non-patient / Non-visit Dr. Deepika Fabian Work Phone: [facility] Start: 02-09-2023 Non-patient / Non-visit Dr. Deepika Fabian Work Phone: [facility] Start: 02-08-2023 Non-patient / Non-visit Dr. Deepika Fabian Work Phone: [facility] Start: 02-08-2023 End: 02-13-2023 Evaluation and management of inpatient Dr. Deepika Fabian Work Phone: [facility]-Progressive Care Unit Start: 01-01-2023 End: 01-01-[address] Deepika Fabian Work Phone: [facility] Start: 12-11-2022 End: 12-11-[address] Vamsi Mota Work Phone: [facility] Work Phone: Start: 12-11-2022 End: 12-11-[address] Vamsi Mota Work Phone: [facility]-Laboratory, Specimen Start: 12-08-2022 End: 12-08-[address] Vamsi Mota Work Phone: [facility]-Laboratory Start: 12-08-2022 End: 12-08-[address] Vamsi Mota Work Phone: [facility] Start: 11-13-2022 End: 11-13-[address] Vamsi Mota Work Phone: [facility] Work Phone: Start: 11-13-2022 End: 11-13-[address] Vamsi Mota Work Phone: [facility]-Laboratory, [place] Start: 11-13-2022 Non-patient / Non-visit Dr. Vamsi Mota Work Phone: [facility] Start: 11-10-2022 End: 11-10-2022 Emergency department patient [facility]ams[facility] Start: 11-04-2022 End: 11-04-2022 Emergency department patient visit Dr. Deep[facility] Start: 11-01-2022 End: 11-01-2022 Emergency department patient visit Dr. Deep[facility] Start: 11-01-2022 End: 11-01-[address] Deepika Fabian Work Phone: [facility] Start: 11-01-2022 End: 11-01-[address] Deepika Fabian Work Phone: [facility] Start: 08-29-2022 End: 08-29-[address] Deepika Fabian Work Phone: [facility] Start: 08-23-2022 End: 08-23-[address] Deepika Fabian Work Phone: [facility] Start: 07-19-2022 Refill Harris hutchinson MD Work Phone: Family Practice Comment on above: Refill Request Start: 07-12-2022 End: 07-12-[address] Deepika Fabian Work Phone: [facility] Start: 07-07-2022 End: 07-07-2022 Emergency department patient visit Dr. Deepika Fabian Work Phone: [facility]-Emergency Department Start: 07-05-2022 End: 07-05-[address] Deepika Fabian Work Phone: [facility] Start: 06-22-2022 End: 06-22-[address] Vamsi Mota Work Phone: [facility] Work Phone: Start: 06-22-2022 End: 06-22-[address] Vamsi Mota Work Phone: [facility] Start: 06-08-2022 End: 06-08-[address] Vamsi Mota Work Phone: [facility] Work Phone: Start: 06-08-2022 End: 06-08-[address] Vamsi Mota Work Phone: [facility] Start: 05-25-2022 End: 05-25-[address] Vamsi Mota Work Phone: [facility] Start: 05-10-2022 Telephone encounter Harris Mota MD Work Phone: [facility] Comment on above: Outside Lab Results ([facility]) Start: 05-08-2022 Telephone encounter Harris Mota MD Work Phone: [facility] Comment on above: Outside Lab Results ([facility]) Start: 05-08-2022 End: 05-08-[address] Vamsi Mota Work Phone: [facility]-Laboratory, [facility] Start: 05-04-2022 End: 05-04-[address] 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 Vamsi Mota Work Phone: [facility]-Speech Therapy Start: 03-20-2022 Telephone encounter Harris Mota MD Work Phone: Family Practice Comment on above: Received Outside Med ical Records ([facility] neurology) Start: 03-16-2022 ambulatory DEBBIEGAEL MARTE [facility] Start: 03-07-2022 Telephone encounter Harris Mota MD Work Phone: Family Practice Comment on above: Orders (reviewed and signed by PCP and faxed back to [facility] occupational therapy. ) Start: 03-02-2022 Telephone encounter Harris Mota MD Work Phone: Family Practice Comment on above: Received Outside Med ical Records ([facility] rehab services) Start: 03-02-2022 End: 03-02-[address] Vamsi Mota Work Phone: [facility] Start: 02-28-2022 Telephone encounter Harris Mota MD Work Phone: Family Practice Comment on above: Received Outside Med ical Records (from [facility] (speech therapy eval)) Start: 02-24-2022 End: 02-24-2022 Patient encounter procedure Harris Mota MD Work Phone: Family Practice Comment on above: Acute ischemic right MCA stroke (HCC) (Primary Dx); Paroxysmal atrial fibrillation (HCC) Start: 02-22-2022 Telephone encounter Harris Mota MD Work Phone: Family Practice Comment on above: Patient Update ([facility]) Start: 02-22-2022 End: 02-22-[address] Vamsi Mota Work Phone: [facility] Start: 02-16-2022 Telephone encounter Harris Mota MD Work Phone: Family Practice Comment on above: Received Outside Med ical Records (ED summary, imaging, and labs from [facility]) Received Outside Med ical Records (EKG from [facility]) Start: 02-15-2022 End: 02-17-2022 Evaluation and management of inpatient VIRAJ GARIBAY Facility:[facility] Start: 02-15-2022 End: 02-17-2022 Evaluation and management of inpatient Sanju White MD Work Phone: [id number] Comment on above: Stroke Start: 02-15-2022 End: 02-15-2022 Emergency department patient visit [facility]-Emergency Department Start: 10-28-2021 End: 10-28-2021 Patient encounter procedure [facility]-Laboratory, OP Pavilion Start: 08-26-2020 End: 08-26-2020 Subsequent hospital visit by physician [facility] Work Phone: Radiology Comment on above: Chronic midline low back pain without sciatica [M54.5, G89.29] Procedures Date Procedure Procedure Detail Performing Clinician Start: 03-31-2025 Vitamin D, 25-hydrox y measurement Dr. Deepika Fabian MD Work Phone: Comment on above: Vitamin D StatusDefi ciency: <20 ng/mL (50nmol/L)Insufficiency: 20-30 ng/mL (50-75 nmol/L)Sufficiency: 30-100 ng/mL (75-250 nmol/L)Toxicity: >100 ng/mL (>250 nmol/L) Start: 01-28-[address] Mamta Fabian MD Work Phone: Start: 01-28-2025 Urnls dip stick/tabl et reagent auto microscopy Dr. Deepika Fabian MD Work Phone: Start: 09-29-2023 Plain chest X-ray Dr. Kevin Fabian Work Phone: Start: 07-10-[address] Mamta Fabian Work Phone: Start: 06-27-[address] Mamta Fabian Work Phone: Start: 04-24-2023 US scan of bladder Dr. Deepika Fabian Work Phone: Start: 03-15-[address] Mamta Fabian Work Phone: Start: 02-13-[address] Deepika Fabian Work Phone: Start: 02-10-2023 Plain chest X-ray Dr. Kevin Fabian Work Phone: Start: 02-08-[address] Deepika Fabian Work Phone: Start: 02-08-[address] Luciano Fabian Work Phone: Start: 11-10-2022 Computed tomography of abdomen and pelvis with contrast Dr. Vamsi Mota Work Phone: Start: 11-04-2022 X-ray of both feet Dr. Deepika Fabian Work Phone: Start: 11-01-2022 Diagnostic radiograp hy of abdomen Dr. Deepika Fabian Work Phone: Start: 07-07-2022 Pelvis X-ray Dr. Deepika Fabian Work Phone: Start: 06-22-2022 CT of head without contrast Dr. Vamsi Mota Work Phone: Start: 02-17-2022 Echo tthrc r-t 2d w/wom-mode [...] blood Benito Soto MD Work Phone: Start: 02-15-2022 CT angiography of he ad and neck Start: 05-11-2022 Plain chest X-ray Start: 02-15-2022 CT cervical spine wi thout contrast Start: 02-15-2022 CT of head without contrast Start: 08-26-2020 Radex spine lumbosac ral 2/3 views Harris Mota MD Work Phone: Clostridium difficil e detection Dr. Deepika Fabian Work Phone: Clostridium difficil e detection Dr. Vamsi Mota Work Phone: Enteric Bacteriology Dr. Ray Fabian Work Phone: Enteric Bacteriology Dr. Travis Mota Work Phone: Enteric Bacteriology Dr. Ray Wesleylay Work Phone: Lactoferrin measurement Dr. Vamsi Mota Work Phone: Nucleic acid assay Dr. Mamta Fabian Work Phone: Nucleic acid assay Dr. Mamta Fabian Work Phone: Urine culture Dr. Deepika rivera Work Phone: Plan of Treatment Date Care Activity Detail Author Start: 03-31-2025 CBC W Auto Different ial panel - Blood [facility] Start: 03-31-2025 Cobalamin (Vitamin B 12) [Mass/volume] in Serum or Plasma [facility] Start: 03-31-2025 Comprehensive metabo lic 2000 panel - Serum or Plasma [facility] Start: 03-31-2025 Lipid 1996 panel - S mundo or Plasma [facility] Start: 03-31-2025 Vitamin D, 25-hydrox y measurement [facility] Start: 02-17-2025 Diabetes Screening Diabetes Screenin g [facility] Start: 02-16-2025 DIABETES SCREEN DIABETES SCREEN [facility] Start: 01-28-2025 Patient referral [facility] Work Phone: Start: 08-08-2024 DIABETES SCREEN DIABETES SCREEN [facility] Start: 06-08-2024 Covid-19 Vaccine ( season) Covid-19 Vaccine (4 - ) [facility] Start: 06-08-2024 Influenza vaccination Influenz a Vaccine (#1) [facility] Start: 10-08-2023 Advance Directive Discussion Advance Directive Discussion [facility] Start: 09-29-2023 Admission procedure [facility] Start: 09-29-2023 [facility] Start: 03-15-2023 Patient referral [facility] Work Phone: Start: 02-13-2023 Patient discharge [facility] Start: 02-10-2023 Referral to habilitation assistant [facility] Start: 02-09-2023 Referral to service [facility] Start: 02-08-2023 End: 02-09-2023 [facility] Start: 02-08-2023 Following clinical p athway protocol [facility] Start: 02-08-2023 Ambulation without limitation [facility] Start: 02-08-2023 Assessment of risk o f venous thromboembolism [facility] Start: 02-08-2023 Inhalation therapy procedure [facility] Start: 02-08-2023 Insertion of cathete r into peripheral vein [facility] Start: 02-08-2023 Notification of physician [facility] Start: 02-08-2023 Oxygen therapy [facility] Start: 02-08-2023 Providing care accor ding to standard [facility] Start: 02-08-2023 Provision of activit y privileges [facility] Start: 02-08-2023 Referral to occupati onal therapist [facility] Start: 02-08-2023 Referral to service [facility] Start: 02-08-2023 Vital signs measurements [facility] Start: 02-08-2023 Admission procedure [facility] Start: 02-08-2023 Patient referral to dietitian [facility] Start: 02-08-2023 [facility] Start: 12-11-2022 Elastase, pancreatic (el-1), fecal; quantitative [facility] Start: 12-11-2022 Fat [Presence] in Stool [facility] Start: 12-11-2022 Protein measurement [facility] Start: 12-08-2022 Immunoglobulin measurement [facility] Start: 12-08-2022 Procedure [facility] Start: 12-08-2022 Serum immunofixation [facility] Start: 12-08-2022 [facility] Start: 11-01-2022 Giardia lamblia Ag [Presence] in Stool by Immunoassay [facility] Start: 11-01-2022 Protein measurement [facility] Start: 10-08-2022 ADVANCE DIRECTIVE DISCUSSION ADVANCE DIRECTIVE DISCUSSION [facility] Start: 10-08-2022 DEPRESSION ASSESSMENT DEPRESSION ASS ESSMENT [facility] Start: 07-07-2022 [facility] Start: 06-19-2022 End: 06-19-2022 Patient encounter procedure 06/19/2022 Office Visit Pharmacy Yolis Floyd MD [address] [facility] [place] [address] Heart [facility] V[facility] Outpatient [facility] Start: 06-08-2022 Influenza vaccination INFLUENZA (#1) [facility] Start: 03-16-2022 End: 03-16-2022 Patient encounter procedure 03/16/2022 Office Visit Neurology Debbie Marte, CHIEF ENGINEER [employer] [address] [facility] [address] [place] [address] [facility] Start: 02-12-2022 COVID-19 VACCINE (4 - Booster for Moderna series) COVID-19 VACCINE (4 - Booster for Moderna series) [facility] Start: 12-10-2021 COVID-19 VACCINE (4 - Booster for Moderna series) COVID-19 VACCINE (4 - Booster for Moderna series) [facility] Start: 10-08-2021 ADVANCE DIRECTIVE DISCUSSION ADVANCE DIRECTIVE DISCUSSION [facility] Start: 10-08-2021 DEPRESSION ASSESSMENT DEPRESSION ASS ESSMENT [facility] Start: 05-19-2021 COVID-19 VACCINE (3 - Booster for Moderna series) COVID-19 VACCINE (3 - Booster for Moderna series) [facility] Start: 2012 RSV Vaccine (1 - 1-d ose 75+ series) RSV Vaccine (1 - 1-dose 75+ series) [facility] Start: 07-13-2007 Tetanus vaccination TETANUS [facility] Start: 1982 Colonoscopy COLORECTAL CAN CER SCREENING DISCUSSION [facility] Start: 1977 Screening mammography MAMMOGRA M SCREENING DISCUSSION [facility] Start: 1958 Screening for malign ant neoplasm of cervix CERVICAL CANCER SCREENING DISCUSSION [facility] Start: 1956 Third diphtheria, te tanus and acellular pertussis (DTaP) vaccination TDAP (ADULT) [facility] Start: 1956 Urine microalbumin profile [facility] Start: 1955 Depression Screening Depression Scre ening [facility] Start: 1942 COVID-19 VACCINE (#1) COVID-19 VACCI NE (#1) [facility] Start: 1937 Screening for osteoporosis DEXA SCAN DISCUSSION [facility] Alanine aminotransfe rase [Enzymatic activity/volume] in Serum or Plasma [facility] Albumin [Mass/volume ] in Serum or Plasma [facility] Albumin [Moles/volum e] in Serum or Plasma [facility] Albumin/Globulin ratio [facility] Alkaline phosphatase [Enzymatic activity/volume] in Serum or Plasma [facility] Anion gap in Serum o r Plasma [facility] Bilirubin, total measurement [facility] BUN/Creatinine ratio [facility] Calcium [Mass/volume ] in Serum or Plasma [facility] Carbon dioxide, tota l [Moles/volume] in Central venous blood [facility] Cholesterol [Mass/vo lume] in Serum or Plasma [facility] Cholesterol in HDL [Mass/volume] in Serum or Plasma [facility] Creatinine [Mass/vol ume] in Serum or Plasma [facility] CT Unspecified body region [facility] Work Phone: Electrophoresis: [id number] [facility] Electrophoresis: lyric ma globulin [facility] Erythrocyte mean corpuscular volume determination [facility] Fat [Mass/mass] in Stool [facility] Fat.neutral [Presenc e] in Stool [facility] Globulin measurement [facility] Glucose [Mass/volume ] in Serum or Plasma [facility] GOLD TOP TUBE GOLD TOP TUBE La b Routine 02/15/2022 9:[facility] Hematocrit [Volume Fraction] of Blood [facility] Hemoglobin [Mass/vol ume] in Blood [facility] IgA [Mass/volume] in Serum or Plasma [facility] IgE [Units/volume] i n Serum or Plasma [facility] IgG [Mass/volume] in Serum or Plasma [facility] IgM [Mass/volume] in Serum or Plasma [facility] LAVENDER TOP TUBE LAVENDER TOP T UBE Lab Routine 02/15/2022 9:45 PM EDT [facility] Leukocytes [#/volume ] in Blood [facility] Low density lipoprot ein cholesterol measurement [facility] Mean corpuscular hemoglobin concentration determination [facility] Mean corpuscular hemoglobin determination [facility] Measurement of renal function [facility] Neutrophil count [facility] Neutrophil cytoplasm ic Ab.classic [Units/volume] in Serum [facility] Neutrophil percent differential count [facility] P-ANCA measurement [facility] Patient Education [facility] Work Phone: Patient referral [facility] Work Phone: Platelets [#/volume] in Blood [facility] Potassium measurement [facility] Protein electrophore sis panel - Serum or Plasma [facility] Protein measurement [facility] RAINBOW DRAW RAINBOW DRAW Lab Routine 02/15/2022 9:45 PM EDT [facility] Red blood cell count [facility] Red cell distributio n width determination [facility] Serum chloride measurement [facility] Serum protein electrophoresis [facility] Sodium measurement [facility] End: 02-15-2022 Standard ECG [facility] Comment on above: One Time for 1 Occur rences starting 02/15/2022 until 02/15/2022 End: 02-16-2022 Standard ECG ECG ECG Routine One Time for 1 Occurrences starting 02/16/2022 until 02/16/2022 [facility] Comment on above: One Time for 1 Occur rences starting 02/16/2022 until 02/16/2022 Total cholesterol:HD L ratio measurement [facility] Total protein measurement [facility] Triglycerides measurement [facility] Urea nitrogen [Mass/volume] in Serum or Plasma [facility] VLDL cholesterol measurement [facility] Immunizations Immunization Date Immunization Notes Care Provider Rosalio ortiz 06-29-2025 Seasonal trivalent influenza vaccine, adjuvanted, preservative free Dr. Deepika Fabian MD Work Phone: [facility] 07-10-2023 influenza, injectabl e, quadrivalent, preservative free Dr. Deepika Fabian Work Phone: [facility] 04-17-2023 tetanus toxoid, redu polly diphtheria toxoid, and acellular pertussis vaccine, adsorbed Dr. Deepika Fabian Work Phone: [facility] 06-30-2022 Influenza High-Dose Quadrivalent Dr. Deepika Fabian Work Phone: [facility] 06-30-2022 Influenza, high dose seasonal Dr. Deepika Fabian MD Work Phone: [facility] 06-30-2022 influenza, high dose seasonal, preservative-free Dr. Deepika Fabian Work Phone: [facility] 06-30-2022 influenza virus vacc ine, unspecified formulation Xr Jordan Work Phone: [facility] 10-15-2021 Covid (Moderna) Dr. Vamsi Mota Work Phone: [facility] 08-17-2021 Influenza, high dose seasonal Dr. Deepika Fabian MD Work Phone: [facility] 08-17-2021 influenza, high dose seasonal, preservative-free Dr. Vamsi Mota Work Phone: [facility] 08-17-2021 influenza, high-dose , quadrivalent vaccine (FLUZONE HIGH DOSE QUADRIVALENT) Harris Mota MD Work Phone: [facility] 12-17-2020 Covid (Moderna) [facility] 11-19-2020 Covid (Moderna) [facility] 08-23-2020 Influenza, high dose seasonal Dr. Deepika Fabian MD Work Phone: [facility] 08-23-2020 influenza, high dose seasonal, preservative-free Dr. Vamsi Mota Work Phone: [facility] 08-23-2020 influenza, high-dose , quadrivalent vaccine (FLUZONE HIGH DOSE QUADRIVALENT) Harris Mota MD Work Phone: [facility] 08-25-2019 Influenza, high dose seasonal Dr. Deepika Fabian MD Work Phone: [facility] 08-25-2019 influenza, high dose seasonal, preservative-free Harris Mota MD Work Phone: [facility] 07-11-2019 zoster vaccine recombinant Harris Mota MD Work Phone: [facility] 07-10-2019 zoster vaccine recombinant Harris Mota MD Work Phone: [facility] 05-04-2019 zoster vaccine recombinant Harris Mota MD Work Phone: [facility] 08-05-2018 Influenza, high dose seasonal Dr. Deepika Fabian MD Work Phone: [facility] 08-05-2018 influenza, high dose seasonal, preservative-free Harris Mota MD Work Phone: [facility] 07-20-2017 Influenza, high dose seasonal Dr. Deepika Fabian MD Work Phone: [facility] 07-20-2017 influenza, high dose seasonal, preservative-free Harris Mota MD Work Phone: [facility] 07-31-2016 Influenza, high dose seasonal Dr. Deepika Fabian MD Work Phone: [facility] 07-31-2016 influenza, high dose seasonal, preservative-free Harris Mota MD Work Phone: [facility] 07-31-2016 pneumococcal conjuga te vaccine, 13 valent Harris Mota MD Work Phone: [facility] 07-07-2014 influenza, injectabl e, quadrivalent, preservative free Dr. Deepika Fabian Work Phone: [facility] 07-07-2014 influenza, seasonal, injectable Harris Mota MD Work Phone: [facility] 07-20-2013 influenza virus vacc ine, unspecified formulation Harris Mota MD Work Phone: [facility] 07-22-2012 influenza virus vacc ine, unspecified formulation Harris Mota MD Work Phone: [facility] 07-11-2011 influenza virus vacc ine, unspecified formulation Harris Mota MD Work Phone: [facility] 07-22-2010 influenza virus vacc ine, unspecified formulation Harris Mota MD Work Phone: [facility] Work Phone: 08-20-2007 influenza virus vacc ine, whole virus Harris Mota MD Work Phone: [facility] 08-20-2007 influenza, injectabl e, quadrivalent, preservative free Dr. Deepika Fabian Work Phone: [facility] 08-20-2007 influenza, seasonal, injectable Dr. Vamsi Mota Work Phone: [facility] 07-22-2005 pneumococcal polysaccharide vaccine, 23 valent Harris Mota MD Work Phone: [facility] Work Phone: 07-13-1997 tetanus toxoid, adsorbed Travis shruti Mota MD Work Phone: [facility] Payers Date Payer Category Payer Self-pay [id number] 2021 [facility] [id number] 2021 Unknown AARP AARP [id number] 2021-Present [address] [place] [address] [id number] 2015 Private Health Insurance [facility] AARP SUPPLEMENT [id number] 2015-Present [phone] [address] [place] [address] Indemnity [id number] 2015 Private Health Insurance [facility] AARP SUPPLEMENT [id number] 2015-Present [phone] [address] [place] [address] Indemnity [id number] 2002 Medicare [id number] 2002 Medicare MEDICARE MEDICAR E A AND B [id number] 2002-Present [phone] [place] [address] Medicare [id number] 2002 Medicare [id number] 1937 Unknown [id number] 1937 Unknown [id number] Unknown [id number] Unknown [id number] Unknown [id number] Unknown [id number] Unknown [id number] Unknown [id number] Unknown [id number] Unknown [id number] Unknown [id number] Unknown [id number] Unknown [id number] Unknown [id number] Social History Date Type Detail Facility Start: 02-15-2022 End: 09-29-2023 Tobacco smoking status SCIS Unknown if ever smoked [facility] Start: 1935 Sex Assigned At Female [facility] Start: 10-10-2012 End: 03-31-2025 Tobacco smoking status SCIS Never smoked tobacco [facility] Start: 08-23-2020 End: 08-17-2021 Alcohol intake Current drinker of alcohol (finding) [facility] Start: 05-26-2021 History SDOH Alcohol Frequency 2 [facility] Start: 05-26-2021 History SDOH Alcohol Std Drinks 1 [facility] Start: 05-26-2021 History SDOH Social Connections Phone 5 [facility] Start: 05-26-2021 History SDOH Social Connections Get Together 3 [facility] Start: 05-26-2021 History SDOH Social Connections Living 4 [facility] Start: 05-26-2021 History SDOH Physica l Activity DPW 6 [facility] Start: 05-26-2021 Education 21 [facility] Start: 1935 Sex Assigned At Not on file [facility] Start: 07-27-2020 End: 02-24-2022 Exposure to SARS-CoV-2 (event) Not sure [facility] Start: 10-10-2012 Tobacco use and exposure Smoke less tobacco non-user [facility] Start: 08-05-2018 End: 08-23-2020 History of Social function [facility] Start: 08-05-2018 End: 08-23-2020 Tobacco use panel [facility] Adult Depression Screening Assessment 0 [facility] Start: 02-02-2025 Sex Female (finding) [facility] Goals Date Patient Goal Desired Activity /State Functional Status Date Assessment Result Facility 02-13-2023 Functional status Ambulates;Aidan r;Bathroom Privilege [facility] Work Phone: Mental Status Date Assessment Result Facility 09-29-2023 Cognitive function Voice/Name [facility] Work Phone: 02-13-2023 Cognitive function Voice/Name [facility] Work Phone: 11-01-2022 Cognitive function Level Of Cons ciousness Awake;Alert;Appropriate;Follow s Commands [facility] Work Phone: 07-07-2022 Cognitive function Level Of Cons ciousness Awake;Alert;Appropriate;Follow s Commands [facility] Work Phone: 02-15-2022 Cognitive function Voice/Name [facility] Work Phone: Clinical Notes 08-26-2020 to 06-29-2025 Note Date & Type Note Facility 06-29-2025 Progress note [facility] 03-31-2025 Evaluation note Diagnosis Onset Date Resolution Essential hypertension chronic Ju 2024 7:57am Bowel dysfunction noneactive March 312024 7:57am Screening for depression noneactive March 31, 2025 7:57am Urinary frequency noneactive March 312024 7:57am Anxiety noneactive March 31 7:57am Vitamin deficiency noneactive March 092024 7:57am Paroxysmal atrial fibrillation noneactive March 31, 2025 7:57am Cognitive decline noneactive March 312024 7:57am Iron deficiency noneactive March 7:57am Essential hypertension chronic Se ptember 2024 9:52am Bowel dysfunction noneactive Septemb er 2024 9:52am Immunization due noneactive Septembe r 2024 9:52am Urinary frequency noneactive Septemb er 2024 9:52am Seborrheic keratoses noneactive Sept ember 2024 9:52am Anxiety noneactive June 9:52am Vitamin deficiency noneactive Septem dennise 2024 9:52am Paroxysmal atrial fibrillation noneactive June 29, 2025 9:52am Cognitive decline noneactive Septemb er 2024 9:52am Iron deficiency noneactive June 29, 2025 9:52am [place] [facility] Work Phone: 1(447) 477-259204-23-2025 Evaluation note* Diagnosis Onset Date Resolution Status Admit Date Essential hypertension chronic Ap ril 2024 9:57am Dizziness resolved January 28 9:57am Rhinorrhea noneactive January 28 9:57am Urinary frequency noneactive January 072024 9:57am Unsteady gait noneactive January 28, 2025 9:57am CVA (cerebral vascular accident) February 15, 2022 acute January 28, 2025 1:49pm Longstanding persistent atrial fibrillation acute January 28, 2025 1:49pm Essential hypertension chronic Ap ril 2024 1:49pm Dizziness resolved January 28 1:49pm Essential hypertension chronic Ju ne 2024 7:57am Bowel dysfunction noneactive March 312024 7:57am Urinary frequency noneactive March 312024 7:57am Anxiety noneactive March 31 7:57am Vitamin deficiency noneactive March 092024 7:57am Paroxysmal atrial fibrillation noneactive March 31, 2025 7:57am Iron deficiency noneactive March 7:57am [place] [facility] Work Phone: 1(398) 734-715104-23-2025 Evaluation note* Diagnosis Onset Date Resolution Status Admit Date Essential hypertension chronic Ap ril 2024 9:57am Dizziness resolved January 28 9:57am Rhinorrhea noneactive January 28 9:57am Urinary frequency noneactive January 072024 9:57am Unsteady gait noneactive January 28, 2025 9:57am CVA (cerebral vascular accident) February 15, 2022 acute January 28, 2025 1:49pm Longstanding persistent atrial fibrillation acute January 28, 2025 1:49pm Essential hypertension chronic Ap ril 2024 1:49pm Dizziness resolved January 28 1:49pm Essential hypertension chronic Ju ne 2024 7:57am Bowel dysfunction noneactive March 312024 7:57am Screening for depression noneactive March 31, 2025 7:57am Urinary frequency noneactive March 312024 7:57am Anxiety noneactive March 31 7:57am Vitamin deficiency noneactive March 092024 7:57am Paroxysmal atrial fibrillation noneactive March 31, 2025 7:57am Cognitive decline noneactive March 312024 7:57am Iron deficiency noneactive March 7:57am [facility] Work Phone: 1(513) 273-379902-06-2025 Evaluation note* Diagnosis Onset Date Resolution Status Admit Date Essential hypertension chronic Fe bruary 2024 9:50am Bowel dysfunction noneactive 2024 9:50am Urinary frequency noneactive 2024 9:50am Anxiety noneactive November 13, 2024 9:50am Vitamin deficiency noneactive 2024 9:50am Paroxysmal atrial fibrillation noneactive November 13 9:50am Iron deficiency noneactive November 13, 2024 9:50am CVA (cerebral vascular accident) February 15, 2022 acute November 13 3:17pm Longstanding persistent atrial fibrillation acute November 3:17pm Essential hypertension chronic Fe bruary 2024 3:17pm Essential hypertension chronic Ap ril 2024 9:57am Dizziness resolved January 28 9:57am Rhinorrhea noneactive January 28 9:57am Urinary frequency noneactive January 072024 9:57am Unsteady gait noneactive January 28, 2025 9:57am CVA (cerebral vascular accident) February 15, 2022 acute January 28, 2025 1:49pm Longstanding persistent atrial fibrillation acute January 28, 2025 1:49pm Essential hypertension chronic Ap 2024 1:49pm Dizziness resolved January 28 1:49pm [facility] Work Phone: 1(942) 595-330506-28-2023 NoteHNO ID: [id number] Author: Grace Langston MA Service: ? Author Type: Coronary Clinical Specialist Type: Progress Notes Filed: 04/05/2023 12:43 PM Note Text: POPULATION HEALTH NAVIGATION OUTREACH Action/FYI LVM MYCHART [...] DEPRESSION ASSESSMENT Never done Navigation Signature: Grace Langston MA April 04, 2023 1:29 [facility]06-28-2023 NotePatient Outreach (NETNAV) DEA MERRITT ([id number]) 1935 F Date Time Provider Department 04/04/23 GRACE LANGSTON During your visit today, we recorded the following information about you: Grace Langston MA 04/05/2023 12:43 PM Signed POPULATION HEALTH NAVIGATION OUTREACH Action/FYI LVM MYCHART MESSAGE SENT ANNUAL MEDICARE WELLNESS ADVANCE DIRECTIVE DISCUSSION Patient Identified by Name and : NO Outreach Outcome/Action Unable to reach patient: Left message Revivnhart message sent Did you use a PCP [...] DEPRESSION ASSESSMENT Never done Navigation Signature: Grace Langston MA April 04, 2023 1:29 PM Allergies [...] Comments: Mouth swelling and blurry vision. 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06[facility]28-[facility]23 History of Present illness Narrative* Grace Langston MA - 04/04/2023 1:29 PM EDT POPULATION HEALTH NAVIGATION OUTREACH Action/FYI LVM [employer] MESSAGE SENT ANNUAL MEDICARE WELLNESS ADVANCE DIRECTIVE DISCUSSION Patient Identified by Name and : NO Outreach Outcome/Action Unable to reach patient: Left message Revivnhart message sent Did you use a PCP [...] DEPRESSION ASSESSMENT Never done Navigation Signature: Grace Langston MA April 04, 2023 1:29 [facility] Moffett [facility] February 13, 2023 2:07pm Note Date/Time February 13, 2023 2:07pm [facility] Medical Records Department [address] [place] [id number] Discharge Summary 02/13/23 1405 MR#: [id number] Acct: [id number] Name: DEA MERRITT Rep #:[id number] : 1935 87 From: Jody Moffett MD PCP: Dr. Deepika Fabian MD Status:ADM IN Location: [place] [address] Providers Date of Admission: 02/08/23 Date of Discharge: 02/13/23 Primary Care Physician: Dr. Deepika Fabian MD Consultations 02/10/23 09:47 Consult: Podiatry Routine Consulting Provider: Emanuel Rod Reason for Consult: Right ankle swelling EMERGENT Consult: No MD Notified: Yes Date Notified: 02/10/23 Time Notified: 09:48 Method of Notification: Text Reason For Visit: DIARRHEA, HYPOKALEMIA Diagnosis Discharge Diagnosis (1) Foot pain, right: Status: Acute Code(s): M79.671 - Pain in right foot (2) Inability to walk: Status: Acute Code(s): R26.2 - Difficulty in walking, not elsewhere classified (3) Essential hypertension: Status: Chronic Code(s): I10 - Essential (primary) hypertension (4) HLD (hyperlipidemia): Status: Chronic Code(s): E78.5 - Hyperlipidemia, unspecified Plan #afib w/ RVR- RVR resolved #Intermittent diarrhea -lymphocytic versus collagenous colitis #Right ankle swelling presumed to be 2/2 gout, unsuccessful tap of ankle #Severe hypokalemia- resolved #Hypertension #History of previous right MCA CVA #Dyslipidemia #GERD Medications at Discharge Home Medications fluorometholone 0.1 % eye drops,suspension 1 drp ophthalmic (eye) BID PRN Dry Eyes 03/02/22 budesonide 3 mg capsule,delayed,extended release 6 mg PO DAILY . 02/08/23 lorazepam 0.5 mg tablet 0.25 mg PO PRN PRN anxiety 02/08/23 omeprazole 20 mg capsule,delayed release 20 mg PO PRN PRN . 02/08/23 rivaroxaban 20 mg tablet (Xarelto) 20 mg PO QPM . 02/08/23 losartan 100 mg tablet 50 mg PO DAILY . 30 days #15 tabs 02/13/23 metoprolol tartrate 25 mg tablet 75 mg PO BID . 30 days #0 tabs 02/13/23 potassium chloride 20 mEq tablet,extended release(part/cryst) (Klor-Con M) 20 meq PO DAILY 14 days #0 tabs 02/13/23 prednisone 20 mg tablet See Taper PO BREAKFAST #0 tabs 02/13/23 Hospital Course Summary of Care Provided Minutes Spent on Discharge: 45 Hospital Course: Patient is an 87-year-old lady with history of atrial fibrillation, chronic diarrhea, hypertension, history of right MCA CVA who presented to [facility] 02/08/2023 with worsening diarrhea and right ankle pain. She has had diarrhea since October that previously responded to steroids given to her for Planter fasciitis so she was placed on budesonide by GI and this significantly helped. In the week leading up to admission however she had recurrence of her diarrhea and also had difficulty walking due to pain and swelling in her right ankle. She was brought to the ED and had severe hypokalemia. X-ray demonstrated no soft tissue swelling or fracture of her ankle and she was admitted for further management. She is continued on budesonide and she was given additional prednisone on top of that to help with what was presumed to be gout of her right ankle which helped her diarrhea as well as her pain and swelling in her ankle significantly. She was seen by podiatry who attempted to tap her ankle but they were unable to get adequate fluid sample so she was treated empirically and it was not felt that it was infectious in etiology. HerGI and C. difficile panel were negative and overall she improved. On the day ofdischarge she did have an episode of diarrhea but after discussing with her daughter she had stopped taking the niacin and other supplements with the diarrhea and niacin may have exacerbated underlying condition. No further episodes after a.m. diarrhea. Diarrhea since October for which she is now following with GI and is on budesonide. She had enteric panel and C. difficile 02/08 which were negative. COVID-negative. Fecal lactoferrin 2 months ago was positive. Has otherwise undergone extensive outpatient work-up. WBC count elevated but had escalation of steroids which is likely the culprit. Further outpatient work-up and management given chronicity is appropriate and she already has an appointment with Dr. Wood next month and PCP 02/21. Hospital course complicated by A-fib with RVR where she received Cardizem boluses twice and her beta-vy was uptitrated, improved with up titration of beta-vy and her losartan was decreased as this was titrated to avoid problems with bloodpressure. She had no breathing complaints and did not appear fluid overloaded- prior to d/c her admission xray was viewed which showed possible congestion but given lack of cardiac concerns and pt does not appear overloaded recommend outpatient echo if any further concerns and follow up with cardiology. Most recent echo 02/17/22 (read documented in most recent cardiology note) w/ EF 60-65%, no segmental abnormalities, unable to assess diastolic function. Hydrochlorothiazide was also stopped due to her concern for gout. She overall was feeling fairly well on day of discharge and this was all discussed with her and I called and spoke with her daughter at length as well. Discharge instructions as followed: DISCHARGE INSTRUCTIONS PLEASE READ *Please take this with you to your next doctors appointment* -You will finish prednisone course for presumed gout. Please take prednisone 20 mg for 3 more days followed by 10 mg for 3 days and then discontinue. It is recommended to follow low purine diet and avoid triggering foods -follow up with podiatry as outpatient in 1 week, sooner if needed -You will need to follow-up with Dr. Wood with GI in his office upon discharge, you have an appointment scheduled March 29. If there are any questions or concerns about appointment date/time please contact his office ([phone]) -He was indicated that you are no longer taking her niacin or supplements these have been discontinued -You will be discharged on potassium, it is recommended to check a BMP in 2 to 3days to monitor potassium level -Your hydrochlorothiazide has been discontinued due to concern for gout flare -In order to optimize your medication for your heart rate your metoprolol was increased to 75 twice daily and your losartan was decreased to 50 mg daily. It is recommended that you follow-up with your heart doctor upon discharge, given your atrial fibrillation with last echocardiogram was 1 year ago, repeat can be preformed on an outpatient basis with your PCP or home care chaplain if deemed appropriate -Please call your primary care provider's office upon discharge to schedule a hospital follow up within 1 week. -For any concerning signs or symptoms please call 911 or proceed to the nearest emergency department Physical Exam Narrative General: Alert, oriented, no apparent distress HEENT: Atraumatic, normocephalic Eyes: Anicteric, normal conjunctiva, extraocular movements grossly intact Neck: Supple Respiratory: No overt crackles or wheezes, normal respiratory effort Cardiovascular: Irregularly irregular GI: Soft, nontender, nondistended Extremities: No edema Musculoskeletal: Moving all extremities Neuro: No overt focal neurological deficits Skin: No rashes appreciated Psych: Cooperative Weight / BMI Weight Weight: 51.4 kg Body Mass Index (BMI) 21.4 ABG / Lab / Microbiology Data Result Diagrams: 02/12/23 05:33 02/12/23 05:33 Microbiology: Microbiology 02/13/23 11:25 Nasal Secretion SARS-CoV-2 Antigen (Rapid) - Final 02/08/23 16:05 Stool Enteric Bacteriology - Final 02/08/23 16:05 Stool C. difficile DNA Amplification - Final Meaningful Use Info Meaningful Use Diagnoses (Choose all that apply): None applicable Discharge Plan Admission Admit Date/Time: 02/08/23 12:56 Primary Reason for Your Visit: diarrhea and ankle pain/swelling Attending Provider: Jody Moffett Primary Care Provider: Deepika Fabian Consulting Providers: Emanuel Rod ; Himanshu Reynolds Instructions Patient Instructions: Eating to Prevent Gout, ED Gout, ED Gout Diet Additional Instructions / Restrictions: DISCHARGE INSTRUCTIONS PLEASE READ *Please take this with you to your next doctors appointment* -You will finish prednisone course for presumed gout. Please take prednisone 20 mg for 3 more days followed by 10 mg for 3 days and then discontinue. It is recommended to follow low purine diet and avoid triggering foods -follow up with podiatry as outpatient in 1 week, sooner if needed -You will need to follow-up with Dr. Wood with GI in his office upon discharge, you have an appointment scheduled March 29. If there are any questions or concerns about appointment date/time please contact his office ([phone]) -He was indicated that you are no longer taking her niacin or supplements these have been discontinued -You will be discharged on potassium, it is recommended to check a BMP in 2 to 3days to monitor potassium level -Your hydrochlorothiazide has been discontinued due to concern for gout flare -In order to optimize your medication for your heart rate your metoprolol was increased to 75 twice daily and your losartan was decreased to 50 mg daily. It is recommended that you follow-up with your heart doctor upon discharge, given your atrial fibrillation with last echocardiogram was 1 year ago, repeat can be preformed on an outpatient basis with your PCP or home care chaplain if deemed appropriate -Please call your primary care provider's office upon discharge to schedule a hospital follow up within 1 week. -For any concerning signs or symptoms please call 911 or proceed to the nearest emergency department Discharge Orders/Prescriptions Prescriptions: New prednisone 20 mg Tablet See Taper PO BREAKFAST Qty: 0 0RF Taper: Prednisone Taper 20 mg WITH BREAKFAST for 3 Days and 0 Hour 10 mg WITH BREAKFAST for 3 Days and 0 Hour potassium chloride [Klor-Con M20] 20 mEq Tablet,Er Particles/Crystals 20 meq PO DAILY 14 Days Qty: 0 0RF Continued fluorometholone 0.1 % drops,suspension 1 drp ophthalmic (eye) BID PRN (Reason: Dry Eyes) lorazepam 0.5 mg tablet 0.25 mg PO PRN PRN (Reason: anxiety) omeprazole 20 mg capsule,delayed release(DR/EC) 20 mg PO PRN PRN (Reason: .) budesonide 3 mg capsule,delayed,extend.release 6 mg PO DAILY Label Comments: Does not take regularly Xarelto 20 mg tablet 20 mg PO QPM Rx Instructions: must administer with evening meal Changed losartan 100 mg tablet 50 mg PO DAILY 30 Days Qty: 15 0RF metoprolol tartrate 25 mg tablet 75 mg PO BID 30 Days Qty: 0 0RF Discontinued niacin 500 mg tablet 500 mg PO QHS Label Comments: supplement coenzyme Q10 [Co Q-10] 100 mg capsule 100 mg PO DAILY Label Comments: supplement vitamin B complex Tablet 1 tab PO DAILY Label Comments: supplement red yeast rice 600 mg tablet 600 mg PO BID Label Comments: suplement Rx Instructions: give with meal/snack cinnamon bark 500 mg capsule 500 mg PO DAILY Label Comments: supplement magnesium oxide 400 mg (241.3 mg magnesium) tablet 400 mg PO DAILY calcium carbonate 600 mg calcium (1,500 mg) tablet 600 mg PO DAILY famotidine 20 mg tablet 20 mg PO DAILY PRN (Reason: GERD) Label Comments: does not take anymore prednisone 10 mg tablet See Rx Instructions .ROUTE .COMPLEX Label Comments: Not taking right now Rx Instructions: 40mg daily x 1 week, then 30mg daily x 1 week, then 20mg daily x 1 week, then 10mg daily x 1 week doxycycline monohydrate 100 mg capsule 100 mg PO BID Label Comments: completed hydrochlorothiazide 25 mg tablet 25 mg PO DAILY Referrals / Follow Up: Deepika Fabian MD [Primary Care Provider] - Within 1 Week Vamsi Segal DPM [Med Staff - Active Staff] - Within 1 Week Jb Wood DO [Med Staff - Active Staff] - Within 1 Month Disposition Disposition (needs filled in before D/C Order can be placed): Assisted Facility Charges/Coding Visit Charges Inpatient E&M: 70648 Disch Hosp >30min 02/13/23 1407 <Electronically signed by Jody Moffett MD> Cosigner Signature (if applicable): CC: Dr. Deepika Fabian MD; Dr. Jody Moffett MD~ Signed [facility] Work Phone: [phone]) 144-738805-09-[address] Moffett [facility] February 13, 2023 2:05pm Note Date/Time February 13, 2023 1:38pm [facility] Medical Records Department [address] [place] [address] Transfer to [facility] MR#: [id number] Acct: [id number] Name: DEA MERRITT Rep #:[id number] : 1935 87 From: Jody Moffett MD PCP: Dr. Deepika Fabian MD Status:ADM IN Certification of patient admission REQUIRED AT TIME OF ADMISSION. I CERTIFY THAT POST-HOSPITAL ECF SERVICES ARE REQUIRED TO BE GIVEN ON AN IN-PATIENT BASIS BECAUSE OF THE ABOVE NAMED PATIENT'S NEED FOR LONG TERM CARE ON A CONTINUING BASIS FOR THE CONDITION(S) FOR WHICH HE/SHE WAS RECEIVING IN-PATIENT HOSPITAL SERVICES PRIOR TO HIS/HER TRANSFER TO THE [facility]. 02/13/23 1405<Electronically signed by Jody Moffett MD> Diet Diet Order/Speech Therapy: 02/08/23 13:54 Diet: Regular - General Food consistency:: Regular Liquid Consistency:: Regular/Thin Diet Comments: With snacks three times daily as tolerated Routine Orders/Code Status Suppository Type: Dulcolax 10mg Suppository Frequency: Daily PRN Routine Lab Work: BMP Code Status: DNRCC-A (You will be discharged on potassium, it is recommended to check a BMP in 2 to 3 days to monitor potassium level) Therapies Physical Therapy: Eval and Treat Occupational Therapy: Eval and Treat Problem/Diagnosis (1) Foot pain, right: Status: Acute Code(s): M79.671 - Pain in right foot (2) Inability to walk: Status: Acute Code(s): R26.2 - Difficulty in walking, not elsewhere classified (3) Essential hypertension: Status: Chronic Code(s): I10 - Essential (primary) hypertension (4) HLD (hyperlipidemia): Status: Chronic Code(s): E78.5 - Hyperlipidemia, unspecified Plan #afib w/ RVR- RVR resolved #Intermittent diarrhea -lymphocytic versus collagenous colitis #Right ankle swelling presumed to be 2/2 gout, unsuccessful tap of ankle #Severe hypokalemia- resolved #Hypertension #History of previous right MCA CVA #Dyslipidemia #GERD Patient is an 87-year-old lady with history of atrial fibrillation, chronic diarrhea, hypertension, history of right MCA CVA who presented to [facility] 02/08/2023 with worsening diarrhea and right ankle pain. She has had diarrhea since October that previously responded to steroids given to her for Planter fasciitis so she was placed on budesonide by GI and this significantly helped. In the week leading up to admission however she had recurrence of her diarrhea and also had difficulty walking due to pain and swelling in her right ankle. She was brought to the ED and had severe hypokalemia. X-ray demonstrated no soft tissue swelling or fracture of her ankle and she was admitted for further management. She is continued on budesonide and she was given additional prednisone on top of that to help with what was presumed to be gout of her right ankle which helped her diarrhea as well as her pain and swelling in her ankle significantly. She was seen by podiatry who attempted to tap her ankle but they were unable to get adequate fluid sample so she was treated empirically and it was not felt that it was infectious in etiology. Her GI and C. difficile panel were negative and overallshe improved. On the day of discharge she did have an episode of diarrhea but after discussing with her daughter she had stopped taking the niacin and other supplements with the diarrhea and niacin may have exacerbated underlying condition. No further episodes after a.m. diarrhea. Diarrhea since October for which she is now following with GI and is on budesonide. She had enteric panel and C. difficile 02/08 which were negative. COVID-negative. Fecal lactoferrin 2 months ago was positive. Has otherwise undergone extensive outpatient work-up. WBC count elevated but had escalation of steroids which is likely the culprit. Further outpatient work-up and management given chronicity is appropriate and she already has an appointment with Dr. Wood next month and PCP 02/21. Hospitalcourse complicated by A-fib with RVR where she received Cardizem boluses twice and her beta-vy was uptitrated, improved with up titration of beta-vy and her losartan was decreased as this was titrated to avoid problems with bloodpressure. She had no breathing complaints and did not appear fluid overloaded- prior to d/c her admission xray was viewed which showed possible congestion but given lack of cardiac concerns and pt does not appear overloaded recommend outpatient echo if any further concerns and follow up with cardiology. Most recent echo 02/17/22 (read documented in most recent cardiology note) w/ EF 60-65%, no segmental abnormalities, unable to assess diastolic function. Hydrochlorothiazide was also stopped due to her concern for gout. She overall was feeling fairly well on day of discharge and this was all discussed with her and I called and spoke with her daughter at length as well. Discharge instructions as followed: DISCHARGE INSTRUCTIONS PLEASE READ *Please take this with you to your next doctors appointment* -You will finish prednisone course for presumed gout. Please take prednisone 20 mg for 3 more days followed by 10 mg for 3 days and then discontinue. It is recommended to follow low purine diet and avoid triggering foods -follow up with podiatry as outpatient in 1 week, sooner if needed -You will need to follow-up with Dr. Wood with GI in his office upon discharge, you have an appointment scheduled March 29. If there are any questions or concerns about appointment date/time please contact his office ([phone]) -He was indicated that you are no longer taking her niacin or supplements these have been discontinued -You will be discharged on potassium, it is recommended to check a BMP in 2 to 3days to monitor potassium level -Your hydrochlorothiazide has been discontinued due to concern for gout flare -In order to optimize your medication for your heart rate your metoprolol was increased to 75 twice daily and your losartan was decreased to 50 mg daily. It is recommended that you follow-up with your heart doctor upon discharge, given your atrial fibrillation with last echocardiogram was 1 year ago, repeat can be preformed on an outpatient basis with your PCP or home care chaplain if deemed appropriate -Please call your primary care provider's office upon discharge to schedule a hospital follow up within 1 week. -For any concerning signs or symptoms please call 911 or proceed to the nearest emergency department Allergies/Procedures Done in Hospital Allergies clindamycin Allergy (Verified 02/08/23 10:32) Other hyoscyamine Allergy (Verified 02/08/23 10:32) Other Penicillins Allergy (Verified 02/08/23 10:32) Hives Iguimfo-NOP-PoX Reductase Inhibitor [Ofozjsd-Dxk-Ufe Reductase Inhibitor] Allergy (Verified 02/08/23 10:32) Pain in joints glucosamine Adverse Reaction (Verified 02/08/23 10:32) Other Type of Care/Length of Stay Estimated LOS: Convalescent Care Less Than 30 days Type of Care Needed: Skilled Rehab Potential: Good Prognosis: Good Additional Orders/Day of Discharge Day of Discharge: 02/13/23 Dietary and Speech Recommendations Dietitian Recommendations/Changes: continue regular diet; ONS if PO intake at meals fails, pt declines at this time. Discharge Plan Admission Admit Date/Time: 02/08/23 12:56 Primary Reason for Your Visit: diarrhea and ankle pain/swelling Attending Provider: Jody Moffett Primary Care Provider: Deepika Fabian Consulting Providers: Emanuel Rod ; Himanshu Reynolds Instructions Patient Instructions: Eating to Prevent Gout, ED Gout, ED Gout Diet Additional Instructions / Restrictions: DISCHARGE INSTRUCTIONS PLEASE READ *Please take this with you to your next doctors appointment* -You will finish prednisone course for presumed gout. Please take prednisone 20 mg for 3 more days followed by 10 mg for 3 days and then discontinue. It is recommended to follow low purine diet and avoid triggering foods -follow up with podiatry as outpatient in 1 week, sooner if needed -You will need to follow-up with Dr. Wood with GI in his office upon discharge, you have an appointment scheduled March 29. If there are any questions or concerns about appointment date/time please contact his office ([phone]) -He was indicated that you are no longer taking her niacin or supplements these have been discontinued -You will be discharged on potassium, it is recommended to check a BMP in 2 to 3days to monitor potassium level -Your hydrochlorothiazide has been discontinued due to concern for gout flare -In order to optimize your medication for your heart rate your metoprolol was increased to 75 twice daily and your losartan was decreased to 50 mg daily. It is recommended that you follow-up with your heart doctor upon discharge, given your atrial fibrillation with last echocardiogram was 1 year ago, repeat can be preformed on an outpatient basis with your PCP or home care chaplain if deemed appropriate -Please call your primary care provider's office upon discharge to schedule a hospital follow up within 1 week. -For any concerning signs or symptoms please call 911 or proceed to the nearest emergency department Discharge Orders/Prescriptions Prescriptions: New prednisone 20 mg Tablet See Taper PO BREAKFAST Qty: 0 0RF Taper: Prednisone Taper 20 mg WITH BREAKFAST for 3 Days and 0 Hour 10 mg WITH BREAKFAST for 3 Days and 0 Hour potassium chloride [Klor-Con M20] 20 mEq Tablet,Er Particles/Crystals 20 meq PO DAILY 14 Days Qty: 0 0RF Continued fluorometholone 0.1 % drops,suspension 1 drp ophthalmic (eye) BID PRN (Reason: Dry Eyes) lorazepam 0.5 mg tablet 0.25 mg PO PRN PRN (Reason: anxiety) omeprazole 20 mg capsule,delayed release(DR/EC) 20 mg PO PRN PRN (Reason: .) budesonide 3 mg capsule,delayed,extend.release 6 mg PO DAILY Label Comments: Does not take regularly Xarelto 20 mg tablet 20 mg PO QPM Rx Instructions: must administer with evening meal Changed losartan 100 mg tablet 50 mg PO DAILY 30 Days Qty: 15 0RF metoprolol tartrate 25 mg tablet 75 mg PO BID 30 Days Qty: 0 0RF Discontinued niacin 500 mg tablet 500 mg PO QHS Label Comments: supplement coenzyme Q10 [Co Q-10] 100 mg capsule 100 mg PO DAILY Label Comments: supplement vitamin B complex Tablet 1 tab PO DAILY Label Comments: supplement red yeast rice 600 mg tablet 600 mg PO BID Label Comments: suplement Rx Instructions: give with meal/snack cinnamon bark 500 mg capsule 500 mg PO DAILY Label Comments: supplement magnesium oxide 400 mg (241.3 mg magnesium) tablet 400 mg PO DAILY calcium carbonate 600 mg calcium (1,500 mg) tablet 600 mg PO DAILY famotidine 20 mg tablet 20 mg PO DAILY PRN (Reason: GERD) Label Comments: does not take anymore prednisone 10 mg tablet See Rx Instructions .ROUTE .COMPLEX Label Comments: Not taking right now Rx Instructions: 40mg daily x 1 week, then 30mg daily x 1 week, then 20mg daily x 1 week, then 10mg daily x 1 week doxycycline monohydrate 100 mg capsule 100 mg PO BID Label Comments: completed hydrochlorothiazide 25 mg tablet 25 mg PO DAILY Referrals / Follow Up: Deepika Fabian MD [Primary Care Provider] - Within 1 Week Vamsi Segal DPM [Med Staff - Active Staff] - Within 1 Week Jb Wood DO [Med Staff - Active Staff] - Within 1 Month Disposition Disposition (needs filled in before D/C Order can be placed): Assisted Facility 02/13/23 1405 <Electronically signed by Jody Moffett MD> Cosigner Signature (if applicable): CC: MOON Rod; Dr. Deepika Fabian MD; Dr. Himanshu Reynolds MD ~ [facility] Work Phone: [phone]) 878-999205-09-2023 Progress note Author Vamsi [facility] February 13, 2023 7:13am Note Date/Time February 13, 2023 7:11am [facility] Medical Records Department [address] [place] [address] Progress Note 02/13/23705 MR#: [id number] Acct: [id number] Name: DEA MERRITT Rep #:[id number] : 1935 87 From: Vamsi Segal DPM PCP: Dr. Deepika Fabian MD Status:ADM IN Location: [place] [address] Subjective Subjective Patient was seen this morning for follow up on right foot/ankle. She relates there is minimal pain. She is able to move toes, foot and ankle with no pain. She is able to walk on foot/ankle with assistance from walker. She has no new complaints. No complaints of f/c/n/v. Objective Data Objective Data Vital Signs: Vital Signs Temp Pulse Resp BP Pulse Ox O2 Del Method O2 Flow Rate 97.5 F L 70 16 157/86 H 94 Room Air 2 02/13/23 04:00 02/13/23 04:00 02/13/23 04:00 02/13/23 04:00 02/13/23 04:00 02/13/23 04:00 02/12/23 14:12 Oxygen Flow Rate (L/min) 2 Oxygen Delivery Method Room Air Weight: 51.4 kg Body Mass Index (BMI) 21.4 Intake & Output: Intake and Output for Last 24 Hours 05/07/23 05/08/23 05/09/23 23:59 23:59 23:59 Intake Total 720 / 720 400 / 400 Output Total 600 / 600 Balance 120 / 120 400 / 400 Lab / Micro Data Result Diagrams: 02/12/23 05:33 02/12/23 05:33 Labs: Laboratory Results - last 24 hr 02/12/23 05:33: Phosphorus 2.5, Magnesium 1.9, Total Bilirubin 0.30, Direct Bilirubin < 0.05, AST 14 L, ALT 15, Alkaline Phosphatase 57, Total Protein 6.0 L, Albumin 1.8 L, Globulin 4.2, TSH 0.86, Free T4 1.38 Micro: Microbiology 02/08/23 16:05 Stool Enteric Bacteriology - Final 02/08/23 16:05 Stool C. difficile DNA Amplification - Final Physical Exam Const alert, oriented x3 and no apparent distress General Appearance: cooperative Extremity normal capillary refill, no calf tenderness and no pedal edema Extremity Narrative: Right foot/ankle - there are no open lesions, no erythema, no cellulitis, no necrosis, no tissue break down - CFT < 2 seconds to all toes, there is no POP orpain on ROM to the foot or ankle. 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 Assessment & Plan Assessment/Plan (1) Foot pain, right: (2) Inability to walk: (3) Essential hypertension: (4) HLD (hyperlipidemia): PLAN: Plan Re-evaluation of right foot/ankle. Reviewed previous right ankle xrays and labs.Findings not c/w infection to the right foot or ankle at this time. Her pain could have been due to DJD or possible gout. At this time it appears to be continued improvement. She is on Prednisone. Continue to monitor for continued improvement, however if symptoms worsen then consider MRI for further evaluation. Patient to follow up with podiatry as outpatient in 1 week, sooner if needed. 02/13/2313 <Electronically signed by Vamsi Segal DPM> Vamsi Segal DPM Cosigner Signature (if applicable): CC: ~ Signed [facility] Work Phone: [phone]) 102-686605-08-[address] Moffett [facility] February 12, 2023 3:22pm Note Date/Time February 12, 2023 11:01a [facility] Medical Records Department [address] [place] [address] Progress Note - Hospitalist 02/12/23 1100 MR#: [id number] Acct: [id number] Name: DEA MERRITT Rep #:[id number] : 1935 87 From: Jody Moffett MD PCP: Dr. Deepika Fabian MD Status:ADM IN Location: [place] [address] Reason for Visit Reason for Visit: Diagnoses Hyperlipidemia, unspecified (02/08/23) Dehydration (02/08/23) Hypokalemia (02/08/23) Essential (primary) hypertension (02/08/23) Pain in right foot (02/08/23) Diarrhea, unspecified (02/08/23) Difficulty in walking, not elsewhere classified (02/08/23) Subjective Subjective Still some pain in her right ankle, feeling better than previously however. Didhave episode of A-fib with RVR overnight that responded to Cardizem bolus Objective Data Objective Data Vital Signs: Vital Signs Temp Pulse Resp BP Pulse Ox O2 Del Method O2 Flow Rate 97.9 F 109 H 18 133/66 H 100 Nasal Cannula 2 02/12/23 09:41 02/12/23 09:46 02/12/23 09:41 02/12/23 09:46 02/12/23 09:41 02/12/23 09:41 02/12/23 09:40 Oxygen Flow Rate (L/min) 2 Oxygen Delivery Method Nasal Cannula Weight: 51.4 kg Body Mass Index (BMI) 21.4 Intake & Output: Intake and Output for Last 24 Hours 02/10/23 02/11/23 02/12/23 23:59 23:59 23:59 Intake Total 830 / 830 720 / 720 Output Total 600 / 600 Balance 830 / 830 120 / 120 Lab / Micro Data Result Diagrams: 02/12/23 05:33 02/12/23 05:33 Labs: Laboratory Results - last 24 hr 02/12/23 05:33: WBC 12.7 H, RBC 3.43 L, Hgb 10.9 L, Hct 33.6 L, MCV 98.0, MCH 31.8, MCHC 32.4, RDW Std Deviation 44.9 H, RDW Coeff of Palak 12.7, Plt Count 483 H, MPV 9.5, Immature Gran % (Auto) 0.600, Neut % (Auto) 72.9 H, Lymph % (Auto) 17.4 L, Hunt % (Auto) 7.8, Eos % (Auto) 1.0, Baso % (Auto) 0.3, Absolute Neuts (auto) 9.2 H, Absolute Lymphs (auto) 2.21, Nucleated RBC % 0 02/12/23 05:33: Sodium 138, Potassium 4.2, Chloride 108 H, Carbon Dioxide 24.0, Anion Gap 6, BUN 18, Creatinine 0.67, Estim Creat Clear Calc 31.04, Est GFR (MDRD) Af Amer 108, Est GFR (MDRD) Non-Af 89, BUN/Creatinine Ratio 27.0 H, Glucose 106, Calcium 8.6 Micro: Microbiology 02/08/23 16:05 Stool Enteric Bacteriology - Final 02/08/23 16:05 Stool C. difficile DNA Amplification - Final Physical Exam Narrative General: Alert, oriented, no apparent distress HEENT: Atraumatic, normocephalic Eyes: Anicteric, normal conjunctiva, extraocular movements grossly intact Neck: Supple Respiratory: No overt crackles or wheezes, normal respiratory effort Cardiovascular: Irregularly irregular GI: Soft, nontender, nondistended Extremities: No edema Musculoskeletal: Moving all extremities Neuro: No overt focal neurological deficits Skin: No rashes appreciated Psych: Cooperative Assessment & Plan Assessment/Plan (1) Diarrhea: (2) Acute dehydration: (3) Hypokalemia: PLAN: Plan HistoryPatient is an 87-year-old lady presenting with diarrhea as well as right ankle swelling #afib w/ RVR -has recieved cardizem twice d/t RVR, will uptitrate BB -Continue xeralto #diarrhea -Has been evaluated by Dr. 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 -Continue budesonide #Right ankle swelling -Was fill OA versus gout -Imaging soft tissue swelling -Is responding to prednisone -Due to persistent swelling however podiatry was asked to evaluate 5/6 and got atotal of 2 cc of total fluid which was sent to the lab for analysis but fluid clotted and was unable to run -Is recommended to continue current course of prednisone and to follow low purine diet and avoid triggering foods -Can follow with podiatry on an outpatient basis # Severe hypokalemia ? Corrected per protocol repeat labs ordered for monitoring #Hypertension - Blood pressure controlled, home medications continued with dose adjustment as needed #History of previous right MCA CVA ? With no residual effect #Dyslipidemia As per history patient apparently did develop intolerance to statin therapy #GERD ? On PPI #DVT prophylaxis ?On rivaroxaban Time spent in the patient's overall evaluation,decision-making process, review of diagnostic data, adjustment of management, discussion with other providers, nursing nursing and ancillary staff involved in patient's care documentation, 30minutes Charges/Coding Visit Charges Inpatient E&M: 00046 Subs Hosp L2 02/12/23 1522 <Electronically signed by Jody Moffett MD> Cosigner Signature (if applicable): CC: ~ Signed [facility] Work Phone: [phone]) 263-770405-08-[address] Price [facility] February 12, 2023 4:05am Note Date/Time February 12, 2023 4:05am [facility] Medical Records Department [address] [place] [address] Progress Note - Hospitalist 02/12/23 0405 MR#: [id number] Acct: [id number] Name: DEA MERRITT Rep #:[id number] : 1935 87 From: Rebecca Price MD PCP: Dr. Deepika Fabian MD Status:ADM IN Location: [place] [address] Hospitalist Note Recurrent atrial fibrillation with RVR, will dose with IV cardizem x 1 now, was effective prior with occurrence. 02/12/23 0405 <Electronically signed by Rebecca Price MD> Cosigner Signature (if applicable): CC: ~ Signed [facility] Work Phone: 1(525) 973-970505-07-[address] Reynolds [facility] February 11, 2023 8:57am Note Date/Time February 11, 2023 7:37am [facility] Medical Records Department [address] [place] [address] Progress Note - Hospitalist 02/11/23 0735 MR#: [id number] Acct: [id number] Name: DEA MERRITT Rep #:[id number] : 1935 87 From: Himanshu Reynolds MD PCP: Dr. Deepika Fabian MD Status:ADM IN Location: [place] [address]- 1 Reason for Visit Reason for Visit: Diagnoses Hyperlipidemia, unspecified (02/08/23) Dehydration (02/08/23) Hypokalemia (02/08/23) Essential (primary) hypertension (02/08/23) Pain in right foot (02/08/23) Diarrhea, unspecified (02/08/23) Difficulty in walking, not elsewhere classified (02/08/23) Subjective Subjective Patient went into A-fib with RVR with initiation of Cardizem. Patient now agreeable to being discharged to a senior care facility consult has subsequently been placed Case management Objective Data Objective Data Vital Signs: Vital Signs Temp Pulse Resp BP Pulse Ox O2 Del Method O2 Flow Rate 97.9 F 73 16 119/83 H 91 Nasal Cannula 4 02/11/23 03:10 02/11/23 03:10 02/11/23 03:10 02/11/23 03:10 02/11/23 03:10 02/11/23 03:10 02/11/23 03:10 Oxygen Flow Rate (L/min) 4 Oxygen Delivery Method Nasal Cannula Weight: 51.4 kg Body Mass Index (BMI) 21.4 Intake & Output: Intake and Output for Last 24 Hours 02/09/23 02/10/23 02/11/23 23:59 23:59 23:59 Intake Total 2648.75 / 2648.75 830 / 830 Output Total 600 / 600 Balance 2648.75 / 2648.75 830 / 830 -600 / -600 Lab / Micro Data Result Diagrams: 02/11/23 05:20 02/11/23 05:20 Labs: Laboratory Results - last 24 hr 02/10/23 07:16: WBC 11.1 H, RBC 3.53 L, Hgb 11.1 L, Hct 33.9 L, MCV 96.0, MCH 31.4, MCHC 32.7, RDW Std Deviation 42.1, RDW Coeff of Palak 12.1, Plt Count 450, MPV 9.1, Immature Gran % (Auto) 0.300, Neut % (Auto) 66.9, Lymph % (Auto) 22.6, Hunt % (Auto) 8.6, Eos % (Auto) 1.2, Baso % (Auto) 0.4, Absolute Neuts (auto) 7.4, Absolute Lymphs (auto) 2.51, Nucleated RBC % 0 02/10/23 07:16: Sodium 140, Potassium 3.0 L, Chloride 109 H, Carbon Dioxide 24.0, Anion Gap 7, BUN 13, Creatinine 0.63, Estim Creat Clear Calc 31.04, Est GFR (MDRD) Af Amer 116, Est GFR (MDRD) Non-Af 96, BUN/Creatinine Ratio 20.7 H, Glucose 101, Calcium 8.5 02/10/23 07:16: Phosphorus 1.8 L, Magnesium 1.9 02/11/23 05:20: WBC 12.4 H, RBC 3.71 L, Hgb 11.6 L, Hct 36.5 L, MCV 98.4, MCH 31.3, MCHC 31.8 L, RDW Std Deviation 44.2 H, RDW Coeff of Palak 12.3, Plt Count 499 H, MPV 9.5, Immature Gran % (Auto) 0.600, Neut % (Auto) 70.0, Lymph % (Auto)20.7, Hunt % (Auto) 7.8, Eos % (Auto) 0.7, Baso % (Auto) 0.2, Absolute Neuts (auto) 8.7 H, Absolute Lymphs (auto) 2.56, Nucleated RBC % 0 02/11/23 05:20: Sodium 140, Potassium 3.4 L, Chloride 108 H, Carbon Dioxide 24.0, Anion Gap 8, BUN 13, Creatinine 0.72, Estim Creat Clear Calc 31.04, Est GFR (MDRD) Af Amer 98, Est GFR (MDRD) Non-Af 81, BUN/Creatinine Ratio 18.0, Glucose 101, Calcium 8.9 Micro: Microbiology 02/08/23 16:05 Stool Enteric Bacteriology - Final 02/08/23 16:05 Stool C. difficile DNA Amplification - Final Radiography Diagnostic Testing: Radiology Impression Chest X-Ray 02/10/23 00:30 IMPRESSION: Cardiomegaly with probable pulmonary edema, infection cannot be entirely excluded. Electronically Signed: Jack Horn MD at 0:45 EDT Reading Location ID and State: [facility] / [place] Tel , Service support , Physical Exam Narrative GENERAL: cooperative HEENT: Atraumatic; normocephalic EYES; Anicteric, Normal Conjunctiva NECK; supple, normal thyroid, RESPIRATORY: Diminished to auscultation CARDIOVASCULAR: Regular S1 S2, GI: soft, normoactive bowel sounds, : No Renal angle tenderness; EXTREMITIES: No edema, no clubbing, MUSCULOSKELETAL: Swelling involving the right ankle improved NEURO: Awake; no lateralizing signs. SKIN: No Rash PSYCH; Flat affect Assessment & Plan Assessment/Plan (1) Diarrhea: (2) Acute dehydration: (3) Hypokalemia: PLAN: Plan Patient is an 87-year-old lady presenting with diarrhea as well as right ankle swelling 1. Diarrhea ? Patient has some chronicity to her diarrhea has been seen and evaluated by with GI. 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 Patient has been placed on budesonideplan is to continue ? 02/09/2023; patient responding to treatment 2. Right ankle swelling ? Osteoarthritis versus gout. Imaging studies demonstrated soft tissue swelling. Patient did receive prednisone in the ED plan is to continue as tolerated ? 02/09/2023 patient responded to steroid with improvement in overall pain control -02/10/2023atient right ankle swelling persist. Did consult podiatry for joint aspiration to rule out infectious or inflammatory etiology. ?02/11/2023; patient was seen in consultation by podiatry notes and recommendations reviewed 3. Paroxysmal A-fib ? Rate controlled on systemic anticoagulation with rivaroxaban plans to continue -02/11/2023 patient went into A-fib with RVR did receive Cardizem 4. Severe hypokalemia ? Corrected per protocol repeat labs ordered for monitoring 5. Hypertension - Blood pressure controlled, home medications continued with dose adjustment as needed 6. History of previous right MCA CVA ? With no residual effect 7. Dyslipidemia As per history patient apparently did develop intolerance to statin therapy 8.GERD ? On PPI 9.DVT prophylaxis ?On rivaroxaban 10. Physical deconditioning - Requested for PT OT eval and psychotherapist social worker to assist with discharge planning. Plan is for patient to be discharged to senior care facility pending insurance approval and bed availability Time spent in the patient's overall evaluation,decision-making process, review of diagnostic data, adjustment of management, discussion with other providers, nursing nursing and ancillary staff involved in patient's care documentation, 37 Minutes Charges/Coding Visit Charges Inpatient E&M: 86620 Subs Hosp L2 02/11/23 0857 <Electronically signed by Himanshu Reynolds MD> Cosigner Signature (if applicable): CC: ~ Signed [facility] Work Phone: 1([phone]) 683-851605-07-[address] Price [facility] February 11, 2023 1:15am Note Date/Time February 10, 2023 10:11p m [facility] Medical Records Department [address] [place] [address] Progress Note - Hospitalist 02/10/232210 MR#: [id number] Acct: [id number] Name: DEA MERRITT Rep #:[id number] : 1935 87 From: Rebecca Price MD PCP: Dr. Deepika Fabian MD Status:ADM IN Location: [place] [address] Hospitalist Note Asymptomatic sustained HR 170s per staff. Will dose with IV cardizem and re- assess. Does have chronic AF history. 02/10/232210 <Electronically signed by Rebecca Price MD> Cosigner Signature (if applicable): CC: ~ Signed ADDENDUM by Dr. Rebecca Price MD on 02/11/23 at 0001 Addendum Patient also noted during PAF with RVR had onset hypoxia, now on 4L NC with appropriate saturation, possibly overload with event, CXR requested. 02/11/23 0001<Electronically signed by Rebecca Price MD> Cosigner Signature (if applicable): cc: ~* Signed ADDENDUM by Dr. Rebecca Price MD on 02/11/23 at 0115 Addendum CXR congested appearance, will dose with lasix 20 mg IV x 1 now. 02/11/23 0115<Electronically signed by Rebecca Price MD> Cosigner Signature (if applicable): cc: ~* Signed [facility] Work Phone: 1(155) 436-537505-06-2023 Consult note Author Emanuel Rod [facility] February 10, 2023 5:59pm Note Date/Time February 10, 2023 5:01pm [facility] Medical Records Department [address] [place] [address] Consultation 02/10/23 1701 MR#: [id number] Acct: [id number] Name: DEA MERRITT Rep #:[id number] : 1935 87 From: Emanuel donaldson DPM PCP: Dr. Deepika Fabian MD Status:ADM IN Location: [place] [address] Assessment & Plan Assessment/Plan (1) Foot pain, right: (2) Inability to walk: (3) Essential hypertension: (4) HLD (hyperlipidemia): PLAN: Plan Patient seen and evaluated She states she has had right foot and ankle pain that has been off and on for the past several months. States that recently became swollen over the last few weeks. Discomfort did improve on prednisone. Right lower extremity: There is mild +2 pitting soft tissue edema about the right ankle joint and medial foot. Skin is thin/atrophic. No erythema, no ecchymosis, no open wounds, no rubor. Decreased range of motion of the ankle joint in dorsiflexion with knee extended without pain and crepitus. Right anklejoint demonstrates no pain in active or passive range of motion. No pain to palpation about the ankle joint, medial malleolus, or lateral malleolus. No increased temperature noted. No pain to palpation along the posterior tibial tendon course or at insertion site to the navicular tuberosity. No pain to palpation at the medial plantar calcaneal tubercle at origin of plantar fascia. Radiographs: I reviewed radiographic imaging from 02/08/2023 which demonstrated soft tissue swelling of the ankle. No evidence of joint effusion. Normal visualization of the talar dome. Normal tibiofibular overlap. Normal fibular length. No fractures. Patient afebrile, VSS, WBC 11.1. No left shift. Differential of white cells WNL. Discussed with patient obtaining sample of the synovial fluid of the right anklejoint. Following verbal consent the site was prepped with Betadine and cleansedwith 70% isopropyl alcohol. A local anesthetic block consisting of 6 cc of 1% lidocaine plain was administered overlying the area between the tibialis anterior tendon and the medial malleolus. At this time arthrocentesis was performed on the right ankle joint utilizing a 22-gauge needle on a 10 cc syringe. Needle was inserted between the anterior tibial tendon and the medial malleolus into the ankle joint. A small amount of synovial fluid and blood was obtained consisting of 2 cc total fluid. This was obtained and sent to the lab for analysis. Site was dressed with Band- Aid. Laboratory did discuss with me that fluid had clotted in the sample bottle and was unable to be run. Given exam findings I feel low clinical suspicion for septic arthritis. Likely osteoarthritis versus gouty arthritis. Recommend following low purine diet/avoidance of triggering foods. May continue current course of prednisone. May elevate right lower extremity at times of rest to aid in edema control. Medicine team is currently following for medical management, they are greatly appreciated. Podiatry will continue to follow. Pending discharge may follow in office. Please do not hesitate to call for any questions or concerns Jr. Lidia Allen.[facility] [phone] HPI Consult Data Date of Consult: 02/10/23 HPI Narrative Reason for Consultation: Swollen right ankle HPI Narrative: DEA MERRITT, is a 87 F who presents to [facility] on 02/08/2023 with complaint of returning diarrhea and increasing pain in the right foot. [place] previously had pain in the right foot extending back to October 30 with radiographs negative for acute findings. She states that her right foot has bothered her more than her left and does have some pain when walking. She believed to be plantar fasciitis. She does have significant history of diffuse osteoarthritis without trauma to this area. No fever. Denies pain when resting. She has been placed on prednisone taper which did help decrease the pain. She did have updated radiographic imaging on 02/08/2023 demonstrating soft tissue swelling of the ankle. She was consulted to podiatry for right ankle swelling with request to perform arthrocentesis. [facility] Medical History Abrasion of right upper back excluding scapular region Anxiety Arthritis involving multiple sites Cellulitis of mid back region CVA (cerebral vascular accident) (02/15/22) Essential hypertension GERD (gastroesophageal reflux disease) HLD (hyperlipidemia) Longstanding persistent atrial fibrillation Home Medications calcium carbonate 600 mg calcium (1,500 mg) tablet 600 mg PO DAILY . 02/22/22 [History Last Taken Unknown] cinnamon bark 500 mg capsule 500 mg PO DAILY . 02/22/22 [History Last Taken Unknown] coenzyme Q10 100 mg capsule (Co Q-10) 100 mg PO DAILY . 02/22/22 [History Last Taken Unknown] magnesium oxide 400 mg (241.3 mg magnesium) tablet 400 mg PO DAILY . 02/22/22 [History Last Taken Unknown] niacin 500 mg tablet 500 mg PO QHS . 02/22/22 [History Last Taken Unknown] red yeast rice 600 mg tablet 600 mg PO BID . 02/22/22 [History Last Taken Unknown] vitamin B complex 1 tab PO DAILY . 02/22/22 [History Last Taken Unknown] fluorometholone 0.1 % eye drops,suspension 1 drp ophthalmic (eye) BID PRN Dry Eyes 03/02/22 [History Last Taken Unknown] famotidine 20 mg tablet 20 mg PO DAILY PRN GERD 08/23/22 [History Last Taken Unknown] budesonide 3 mg capsule,delayed,extended release 6 mg PO DAILY . 02/08/23 [History Last Taken 02/08/23 08:00] doxycycline monohydrate 100 mg capsule 100 mg PO BID . 02/08/23 [History Last Taken Unknown] hydrochlorothiazide 25 mg tablet 25 mg PO DAILY . 02/08/23 [History Last Taken 02/08/23] lorazepam 0.5 mg tablet 0.25 mg PO PRN PRN anxiety 02/08/23 [History Last Taken Unknown] losartan 100 mg tablet 100 mg PO DAILY . 02/08/23 [History Last Taken 02/08/23] metoprolol tartrate 25 mg tablet 25 mg PO BID . 02/08/23 [History Last Taken 02/08/23] omeprazole 20 mg capsule,delayed release 20 mg PO PRN PRN . 02/08/23 [History Last Taken Unknown] prednisone 10 mg tablet See Rx Instructions .ROUTE .COMPLEX . 02/08/23 [History Last Taken Unknown] rivaroxaban 20 mg tablet (Xarelto) 20 mg PO QPM . 02/08/23 [History Last Taken Unknown] Allergy/AdvReac Type Severity Reaction Status Date / Time clindamycin Allergy Other Verified 02/08/23 10:32 hyoscyamine Allergy Other Verified 02/08/23 10:32 Penicillins Allergy Hives Verified 02/08/23 10:32 Jemlyfh-LBO-ArH Reductase Allergy Pain in Verified 02/08/23 10:32 Inhibitor joints [Rgzzwup-Dmd-Sck Reductase Inhibitor] glucosamine AdvReac Other Verified 02/08/23 10:32 Family History Father Diabetes Hyperlipemia Mother Cancer stomach Brother Parkinson's disease Surgical History Cataract extraction status Social History household members: none current occupational status: 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 pets and animals: Yes pets and animals: cat(s) Smoking Status: Never smoker alcohol intake: current alcohol intake frequency: holidays/special occasions only substance use type: does not use what type of physical activity do you participate in: other details: gardening do you feel safe at home: Yes ROS Constitutional Constitutional: Denies body ache(s), chills or fever(s) Eyes Eyes: Denies blurry vision, diplopia or dry eyes ENT HEENT: Denies dizziness, nasal congestion or sore throat Cardiovascular Cardiovascular: Denies chest pain, claudication or palpitations Respiratory/Chest Respiratory/Chest: Denies chest congestion, cough or shortness of breath at rest Gastrointestinal Gastrointestinal: Denies abdominal pain, constipation, diarrhea, nausea or vomiting Genitourinary Genitourinary: Denies dysuria, hematuria or urinary urgency Musculoskeletal Musculoskeletal: Denies joint pain, joint stiffness or joint swelling Integumentary Integumentary: Denies lesions, pruritus or rash Neurologic Neurologic: Denies dizziness, numbness or seizures Endocrine Endocrinology: Denies cold intolerance or heat intolerance Hematologic/Lymphatic Hematologic/Lymphatic: Denies easy bleeding or easy bruising Allergic/Immunologic Allergic/Immunologic: Denies wheezing Physical Exam Const alert, oriented x3 and no apparent distress General Appearance: cooperative HEENT normocephalic Eyes General Eye: normal appearance of both eyes Neck General: normal visual inspection Lymph Lymphatic: no lymphadenopathy noted and no lymphedema noted Resp normal respiratory effort Cardio regular rate and regular rhythm Extremity normal capillary refill, no calf tenderness and no pedal edema Extremity Narrative: DP and PT pulses weakly palpable. Adequate capillary fill time to the digits. Hair growth absent to digits. Dermatological: There is mild +2 pitting soft tissue edema about the right anklejoint and medial foot. Skin is thin/atrophic. No erythema, no ecchymosis, no open wounds, no rubor. Left foot demonstrates dorsal abrasion overlying the first metatarsophalangeal joint secondary to dorsal exostosis. Musculoskeletal: Muscle strength is age-appropriate. Left foot demonstrates dorsal exostosis secondary to first metatarsophalangeal joint arthritis. There is decreased range of motion of the first metatarsophalangeal joint of the left and right foot. Decreased range of motion of the ankle joint in dorsiflexion with knee extended bilateral without pain and crepitus. Right ankle joint demonstrates some +2 pitting edema about the ankle with no pain in active or passive range of motion. No pain to palpation about the ankle joint, medial malleolus, or lateral malleolus. No increased temperature noted. No pain to palpation along the posterior tibial tendon course or at insertion site to the navicular tuberosity. No pain to palpation at the medial plantar calcaneal tubercle at origin of plantar fascia. Skin no rashes or lesions noted, skin turgor normal and no jaundice Neuro moves all extremities Lab / Micro Data Result Diagrams: 02/10/23 07:16 02/10/23 07:16 Labs: Laboratory Results - last 24 hr 02/10/23 07:16: WBC 11.1 H, RBC 3.53 L, Hgb 11.1 L, Hct 33.9 L, MCV 96.0, MCH 31.4, MCHC 32.7, RDW Std Deviation 42.1, RDW Coeff of Palak 12.1, Plt Count 450, MPV 9.1, Immature Gran % (Auto) 0.300, Neut % (Auto) 66.9, Lymph % (Auto) 22.6, Hunt % (Auto) 8.6, Eos % (Auto) 1.2, Baso % (Auto) 0.4, Absolute Neuts (auto) 7.4, Absolute Lymphs (auto) 2.51, Nucleated RBC % 0 02/10/23 07:16: Sodium 140, Potassium 3.0 L, Chloride 109 H, Carbon Dioxide 24.0, Anion Gap 7, BUN 13, Creatinine 0.63, Estim Creat Clear Calc 31.04, Est GFR (MDRD) Af Amer 116, Est GFR (MDRD) Non-Af 96, BUN/Creatinine Ratio 20.7 H, Glucose 101, Calcium 8.5 02/10/23 07:16: Phosphorus 1.8 L, Magnesium 1.9 02/10/23 1759 <Electronically signed by Emanuel Rod DPM> Cosigner Signature (if applicable): CC: MOON Rod; Dr. Deepika Fabian MD~ Signed [facility] Work Phone: [phone]) 946-417605-06-[address] Reynolds [facility] February 10, 2023 9:49am Note Date/Time February 10, 2023 7:41am [facility] Medical Records Department [address] [place] [address] Progress Note - Hospitalist 02/10/23 0741 MR#: [id number] Acct: [id number] Name: DEA MERRITT Rep #:[id number] : 1935 87 From: Himanshu Reynolds MD PCP: Dr. Deepika Fabian MD Status:ADM IN Location: [place] [address] Reason for Visit Reason for Visit: Diagnoses Dehydration (02/08/23) Hypokalemia (02/08/23) Diarrhea, unspecified (02/08/23) Subjective Subjective Patient right ankle swelling persist. Did consult podiatry for joint aspirationto rule out infectious or inflammatory etiology. Objective Data Objective Data Vital Signs: Vital Signs Temp Pulse Resp BP Pulse Ox O2 Del Method 98 F 80 18 125/68 H 98 Room Air 02/10/23 02:30 02/10/23 02:30 02/10/23 02:30 02/10/23 02:30 02/10/23 02:30 02/10/23 02:30 Oxygen Delivery Method Room Air Weight: 51.4 kg Body Mass Index (BMI) 21.4 Intake & Output: Intake and Output for Last 24 Hours 02/08/23 02/09/23 02/10/23 23:59 23:59 23:59 Intake Total 1645 / 1645 2648.75 / 2648.75 Balance 1645 / 1645 2648.75 / 2648.75 Lab / Micro Data Result Diagrams: 02/10/23 07:16 02/10/23 07:16 Micro: Microbiology 02/08/23 16:05 Stool Enteric Bacteriology - Final 02/08/23 16:05 Stool C. difficile DNA Amplification - Final Physical Exam Narrative GENERAL: cooperative HEENT: Atraumatic; normocephalic EYES; Anicteric, Normal Conjunctiva NECK; supple, normal thyroid, RESPIRATORY: Diminished to auscultation CARDIOVASCULAR: Regular S1 S2, GI: soft, normoactive bowel sounds, : No Renal angle tenderness; EXTREMITIES: No edema, no clubbing, MUSCULOSKELETAL: Swelling involving the right ankle improved NEURO: Awake; no lateralizing signs. SKIN: No Rash PSYCH; Flat affect Assessment & Plan Assessment/Plan (1) Diarrhea: (2) Acute dehydration: (3) Hypokalemia: PLAN: Plan Patient is an 87-year-old lady presenting with diarrhea as well as right ankle swelling 1. Diarrhea ? Patient has some chronicity to her diarrhea has been seen and evaluated by with GI. 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 Patient has been placed on budesonide plan is to continue ? 02/09/2023; patient responding to treatment 2. Right ankle swelling ? Osteoarthritis versus gout. Imaging studies demonstrated soft tissue swelling. Patient did receive prednisone in the ED plan is to continue as tolerated ? 02/09/2023 patient responded to steroid with improvement in overall pain control -02/10/2023atient right ankle swelling persist. Did consult podiatry for joint aspiration to rule out infectious or inflammatory etiology. 3. Paroxysmal A-fib ? Rate controlled on systemic anticoagulation with rivaroxaban plans to continue 4. Severe hypokalemia ? Corrected per protocol repeat labs ordered for monitoring 5. Hypertension - Blood pressure controlled, home medications continued with dose adjustment as needed 6. History of previous right MCA CVA ? With no residual effect 7. Dyslipidemia As per history patient apparently did develop intolerance to statin therapy 8.GERD ? On PPI 9.DVT prophylaxis ?On rivaroxaban Time spent in the patient's overall evaluation,decision-making process, review of diagnostic data, adjustment of management, discussion with other providers, nursing nursing and ancillary staff involved in patient's care documentation, 37 Minutes Charges/Coding Visit Charges Inpatient E&M: 95329 Subs Hosp L2 02/10/23 0949 <Electronically signed by Himanshu Reynolds MD> Cosigner Signature (if applicable): CC: ~ Signed [facility] Work Phone: [phone]) 716-282505-05-[address] Reynolds [facility] February 09, 2023 10:15am Note Date/Time February 09, 2023 7:40am [facility] Medical Records Department [address] [place] [address] Progress Note - Hospitalist 02/09/23 0738 MR#: [id number] Acct: [id number] Name: DEA MERRITT Rep #:[id number] : 1935 87 From: Himanshu Reynolds MD PCP: Dr. Deepika Fabian MD Status:ADM IN Location: [place] [address] Reason for Visit Reason for Visit: Diagnoses Dehydration (02/08/23) Hypokalemia (02/08/23) Diarrhea, unspecified (02/08/23) Subjective Subjective Patient seen admit to some improvement in her right ankle pain. Frequency of diarrhea also subsided. Requested for PT OT eval Objective Data Objective Data Vital Signs: Vital Signs Temp Pulse Resp BP Pulse Ox O2 Del Method 97.9 F 90 18 118/74 97 Room Air 02/09/23 04:20 02/09/23 04:20 02/09/23 04:20 02/09/23 04:20 02/09/23 04:20 02/09/23 04:20 Oxygen Delivery Method Room Air Weight: 51.4 kg Body Mass Index (BMI) 21.4 Intake & Output: Intake and Output for Last 24 Hours 02/07/23 02/08/23 02/09/23 23:59 23:59 23:59 Intake Total 1645 / 1645 881.25 / 881.25 Balance 1645 / 1645 881.25 / 881.25 Lab / Micro Data Result Diagrams: 02/09/23 06:15 02/09/23 06:15 Labs: Laboratory Results - last 24 hr 02/08/23 11:00: WBC 10.1, RBC 3.85 L, Hgb 12.0, Hct 36.9 L, MCV 95.8, MCH 31.2, MCHC 32.5, RDW Std Deviation 42.5, RDW Coeff of Palak 12.2, Plt Count 493 H, MPV 8.8, Immature Gran % (Auto) 0.300, Neut % (Auto) 70.9 H, Lymph % (Auto) 14.4 L, Hunt % (Auto) 12.7 H, Eos % (Auto) 1.0, Baso % (Auto) 0.7, Absolute Neuts (auto)7.1, Absolute Lymphs (auto) 1.45, Nucleated RBC % 0 02/08/23 11:00: Sodium 137, Potassium 2.6 L*, Chloride 98, Carbon Dioxide 29.0, Anion Gap 10, BUN 20 H, Creatinine 0.93, Estim Creat Clear Calc 31.77, Est GFR (MDRD) Af Amer 74, Est GFR (MDRD) Non-Af 61, BUN/Creatinine Ratio 21.5 H, Glucose 125 H, Calcium 8.6, Total Bilirubin 0.40, AST 12 L, ALT 20, Alkaline Phosphatase 66, Total Protein 6.8, Albumin 2.2 L, Globulin 4.6 H, Albumin/Globulin Ratio 0.5 L 02/08/23 11:00: Uric Acid 4.5 02/08/23 12:34: Urine Color Yellow, Urine Clarity Clear, Urine pH 7.0, Ur Specific Calmar 1.010, Urine Protein 30 H, Urine Glucose (UA) Normal, Urine Ketones 5 H, Urine Occult Blood 10 H, Urine Nitrite Negative, Urine Bilirubin Negative, Urine Urobilinogen Normal, Ur Leukocyte Esterase 100 H, Urine RBC 0 SEEN, Urine WBC 5- 10 SEEN, Ur Squamous Epith Cells 0-5 SEEN, Urine Bacteria 0 SEEN, Urine Mucus 0 SEEN 02/09/23 06:15: WBC 9.0, RBC 3.41 L, Hgb 10.4 L, Hct 33.2 L, MCV 97.4, MCH 30.5,MCHC 31.3 L, RDW Std Deviation 43.8, RDW Coeff of Palak 12.2, Plt Count 447, MPV 9.3, Immature Gran % (Auto) 0.300, Neut % (Auto) 61.7, Lymph % (Auto) 21.1, Hunt% (Auto) 14.4 H, Eos % (Auto) 1.8, Baso % (Auto) 0.7, Absolute Neuts (auto) 5.5,Absolute Lymphs (auto) 1.89, Nucleated RBC % 0 02/09/23 06:15: Sodium 140, Potassium 2.9 L, Chloride 107, Carbon Dioxide 24.0, Anion Gap 9, BUN 12, Creatinine 0.66, Estim Creat Clear Calc 31.04, Est GFR (MDRD) Af Amer 110, Est GFR (MDRD) Non-Af 91, BUN/Creatinine Ratio 18.3, [id number], Calcium 8.1 L, Phosphorus 1.6 L, Magnesium 1.9 Micro: Microbiology 02/08/23 16:05 Stool C. difficile DNA Amplification - Final Radiography Diagnostic Testing: Radiology Impression Ankle X-Ray 02/08/23 11:17 IMPRESSION: Soft tissue swelling. Electronically Signed: Waylon Samayoa MD at 11:49 EDT , Physical Exam Narrative GENERAL: cooperative HEENT: Atraumatic; normocephalic EYES; Anicteric, Normal Conjunctiva NECK; supple, normal thyroid, RESPIRATORY: Diminished to auscultation CARDIOVASCULAR: Regular S1 S2, GI: soft, normoactive bowel sounds, : No Renal angle tenderness; EXTREMITIES: No edema, no clubbing, MUSCULOSKELETAL: Swelling involving the right ankle improved NEURO: Awake; no lateralizing signs. SKIN: No Rash PSYCH; Flat affect Assessment & Plan Assessment/Plan (1) Diarrhea: (2) Acute dehydration: (3) Hypokalemia: PLAN: Plan Patient is an 87-year-old lady presenting with diarrhea as well as right ankle swelling 1. Diarrhea ? Patient has some chronicity to her diarrhea has been seen and evaluated by with GI. 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 Patient has been placed on budesonideplan is to continue ? 02/09/2023; patient responding to treatment 2. Right ankle swelling ? Osteoarthritis versus gout. Imaging studies demonstrated soft tissue swelling. Patient did receive prednisone in the ED plan is to continue as tolerated ? 02/09/2023 patient responded to steroid with improvement in overall pain control 3. Paroxysmal A-fib ? Rate controlled on systemic anticoagulation with rivaroxaban plans to continue 4. Severe hypokalemia ? Corrected per protocol repeat labs ordered for monitoring 5. Hypertension - Blood pressure controlled, home medications continued with dose adjustment as needed 6. History of previous right MCA CVA ? With no residual effect 7. Dyslipidemia As per history patient apparently did develop intolerance to statin therapy 8.GERD ? On PPI 9.DVT prophylaxis ?On rivaroxaban Time spent in the patient's overall evaluation,decision-making process, review of diagnostic data, adjustment of management, discussion with other providers, nursing nursing and ancillary staff involved in patient's care documentation, 37 Minutes Charges/Coding Visit Charges Inpatient E&M: 12444 Subs Hosp L2 02/09/23 1015 <Electronically signed by Himanshu Reynolds MD> Cosigner Signature (if applicable): CC: ~ Signed [facility] Work Phone: 1([phone]) 494-119005-05-[address] Price [facility] February 08, 2023 10:03pm Note Date/Time February 08, 2023 10:03p m [facility] Medical Records Department [address] [place] [address] Progress Note - Hospitalist 02/08/232202 MR#: [id number] Acct: [id number] Name: DEA MERRITT Rep #:[id number] : 1935 87 From: Rebecca Price MD PCP: Dr. Deepika Fabian MD Status:ADM IN Location: [place] [address] Hospitalist Note Patient daughter and patient insistent that she take only 20 mg prednisone only.In the past when attempted 40 mg daily she had mental status changes. Dose decreased to 20 mg daily. 02/08/232202 <Electronically signed by Rebecca Price MD> Cosigner Signature (if applicable): CC: ~ Signed [facility] Work Phone: [phone]) 421-649905-04-2023 History and physical note Author Dr. Reynolds [facility] February 08, 2023 1:29pm Note Date/Time February 08, 2023 1:06pm [facility] Medical Records Department [address] [place] [address] H&P Exam - Hospitalist 02/08/23 1306 MR#: [id number] Acct: [id number] Name: DEA MERRITT Rep #:[id number] : 1935 87 From: Himanshu Reynolds MD PCP: Dr. Deepika Fabian MD Status:ADM IN Location: [place] [address] HPI - General General Date of Admission: 02/08/23 Date of Service: 02/08/23 Chief Complaint: Diarrhea and right ankle pain HPI Narrative DEA MERRITT, is a 87 F with past medical history significant for paroxysmal A- fibwith previous CVA, history of chronic diarrhea treated with budesonide who presented with right ankle pain as well as diarrhea. Per patient has history ofchronic diarrhea and has been placed on prednisone as well as budesonide. Diarrhea apparently did improve. Patient however did notice recurrence of her diarrhea weeks prior to her admission. She also did have difficulty walking as a result of significant pain and swelling involving the right ankle. Patient was brought to the emergency department by her daughter given her previous history. Work-up in the emergency department demonstrated severe hypokalemia. Imaging studies of the right ankle demonstrated soft tissue swelling no fracture. Patient subsequently admitted to regular nursing floor for further management [facility] Medical History Abrasion of right upper back excluding scapular region Anxiety Arthritis involving multiple sites Cellulitis of mid back region CVA (cerebral vascular accident) (02/15/22) Essential hypertension GERD (gastroesophageal reflux disease) HLD (hyperlipidemia) Longstanding persistent atrial fibrillation Home Medications calcium carbonate 600 mg calcium (1,500 mg) tablet 600 mg PO DAILY 02/22/22 [History Last Taken Unknown] cinnamon bark 500 mg capsule 500 mg PO DAILY 02/22/22 [History Last Taken Unknown] coenzyme Q10 100 mg capsule (Co Q-10) 100 mg PO DAILY 02/22/22 [History Last Taken Unknown] magnesium oxide 400 mg (241.3 mg magnesium) tablet 400 mg PO DAILY 02/22/22 [History Last Taken Unknown] niacin 500 mg tablet 500 mg PO QHS 02/22/22 [History Last Taken Unknown] red yeast rice 600 mg tablet 600 mg PO BID 02/22/22 [History Last Taken Unknown] vitamin B complex 1 tab PO DAILY 02/22/22 [History Last Taken Unknown] fluorometholone 0.1 % eye drops,suspension 1 drp ophthalmic (eye) BID PRN Dry Eyes 03/02/22 [History Last Taken Unknown] lorazepam 0.5 mg tablet 0.25 mg PO DAILY PRN anxiety #15 tabs 05/04/22 [Rx Last Taken Unknown] famotidine 20 mg tablet 20 mg PO DAILY PRN GERD 08/23/22 [History Last Taken Unknown] hydrochlorothiazide 25 mg tablet 25 mg PO DAILY #30 tabs 10/03/22 [Rx Last Taken Unknown] losartan 100 mg tablet 100 mg PO DAILY #30 tabs 10/03/22 [Rx Last Taken Unknown] metoprolol tartrate 25 mg tablet 25 mg PO BID #60 tabs 10/03/22 [Rx Last Taken Unknown] omeprazole 20 mg capsule,delayed release 20 mg PO DAILY 8 weeks #56 caps 11/10/22 [Rx Last Taken Unknown] prednisone 10 mg tablet See Rx Instructions .Route .COMPLEX #70 tabs 11/10/22 [Rx Last Taken Unknown] budesonide 3 mg capsule,delayed,extended release 6 mg PO DAILY #60 ea 12/13/22 [Rx Last Taken Unknown] doxycycline monohydrate 100 mg capsule 100 mg PO BID #20 caps 01/01/23 [Rx Last Taken Unknown] rivaroxaban 20 mg tablet (Xarelto) 20 mg PO QPM #90 tabs 01/26/23 [Rx Last Taken Unknown] Allergy/AdvReac Type Severity Reaction Status Date / Time clindamycin Allergy Other Verified 02/08/23 10:32 hyoscyamine Allergy Other Verified 02/08/23 10:32 Penicillins Allergy Hives Verified 02/08/23 10:32 Fpxauxn-OQO-FvR Reductase Allergy Pain in Verified 02/08/23 10:32 Inhibitor joints [Dfkhbre-Fut-Qec Reductase Inhibitor] glucosamine AdvReac Other Verified 02/08/23 10:32 Family History Father Diabetes Hyperlipemia Mother Cancer stomach Brother Parkinson's disease Surgical History Cataract extraction status Social History household members: none current occupational status: 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 pets and animals: Yes pets and animals: cat(s) Smoking Status: Never smoker alcohol intake: current alcohol intake frequency: holidays/special occasions only substance use type: does not use what type of physical activity do you participate in: other details: gardening do you feel safe at home: Yes ROS ROS Narrative GENERAL: denies fever, chills, night sweats, weight loss, anorexia HEENT: denies headache, sinus congestion, or drainage, dysphagia RESPIRATORY: denies cough, sputum production, shortness of breath, CARDIAC: denies chest pain, palpitations, orthopnea, PND GASTROINTESTINAL: Diarrhea GENITOURINARY: denies dysuria, urgency, frequency, heamaturia EXTREMITY: denies swelling MUSCULOSKELETAL: Right ankle pain and swelling NEUROLOGIC: denies focal numbness, weakness, tingling HEMATOLOGIC: denies easy bruising and/or hemorrhage INTEGUMENT: denies rashes PSYCHIATRIC: denies suicidal or homicidal ideation Vital Signs Vital Signs Vital Signs: 02/08/23 10:32 Temperature 98 F Temperature Source Temporal Pulse Rate 104 H Respiratory Rate 14 Blood Pressure 141/64 H Blood Pressure Mean 89 Weight Weight: 46.6 kg Body Mass Index (BMI) 20.0 Physical Exam Narrative GENERAL: cooperative HEENT: Atraumatic; normocephalic EYES; Anicteric, Normal Conjunctiva NECK; supple, normal thyroid, RESPIRATORY: Diminished to auscultation CARDIOVASCULAR: Regular S1 S2, GI: soft, normoactive bowel sounds, : No Renal angle tenderness; EXTREMITIES: No edema, no clubbing, MUSCULOSKELETAL: Ankle swelling and warm to touch but no erythema NEURO: Awake; no lateralizing signs. SKIN: No Rash PSYCH; Flat affect Results Lab / Micro Data Result Diagrams: 02/08/23 11:00 02/08/23 11:00 Labs: Laboratory Results - last 24 hr 02/08/23 11:00: WBC 10.1, RBC 3.85 L, Hgb 12.0, Hct 36.9 L, MCV 95.8, MCH 31.2, MCHC 32.5, RDW Std Deviation 42.5, RDW Coeff of Palak 12.2, Plt Count 493 H, MPV 8.8, Immature Gran % (Auto) 0.300, Neut % (Auto) 70.9 H, Lymph % (Auto) 14.4 L, Hunt % (Auto) 12.7 H, Eos % (Auto) 1.0, Baso % (Auto) 0.7, Absolute Neuts (auto)7.1, Absolute Lymphs (auto) 1.45, Nucleated RBC % 0 02/08/23 11:00: Sodium 137, Potassium 2.6 L*, Chloride 98, Carbon Dioxide 29.0, Anion Gap 10, BUN 20 H, Creatinine 0.93, Estim Creat Clear Calc 31.77, Est GFR (MDRD) Af Amer 74, Est GFR (MDRD) Non-Af 61, BUN/Creatinine Ratio 21.5 H, Glucose 125 H, Calcium 8.6, Total Bilirubin 0.40, AST 12 L, ALT 20, Alkaline Phosphatase 66, Total Protein 6.8, Albumin 2.2 L, Globulin 4.6 H, Albumin/Globulin Ratio 0.5 L 02/08/23 12:34: Urine Color Yellow, Urine Clarity Clear, Urine pH 7.0, Ur Specific Calmar 1.010, Urine Protein 30 H, Urine Glucose (UA) Normal, Urine Ketones 5 H, Urine Occult Blood 10 H, Urine Nitrite Negative, Urine Bilirubin Negative, Urine Urobilinogen Normal, Ur Leukocyte Esterase 100 H, Urine RBC 0 SEEN, Urine WBC 5- 10 SEEN, Ur Squamous Epith Cells 0-5 SEEN, Urine Bacteria 0 SEEN, Urine Mucus 0 SEEN Radiology Impression Ankle X-Ray 02/08/23 11:17 IMPRESSION: Soft tissue swelling. Electronically Signed: Waylon Samayoa MD at 11:49 EDT , Assessment & Plan Assessment/Plan (1) Diarrhea: (2) Acute dehydration: (3) Hypokalemia: PLAN: Plan Patient is an 87-year-old lady presenting with diarrhea as well as right ankle swelling 1. Diarrhea ? Patient has some chronicity to her diarrhea has been seen and evaluated by with GI. 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 Patient has been placed on budesonideplan is to continue 2. Right ankle swelling ? Osteoarthritis versus gout. Imaging studies demonstrated soft tissue swelling. Patient did receive prednisone in the ED plan is to continue as tolerated 3. Paroxysmal A-fib ? Rate controlled on systemic anticoagulation with rivaroxaban plans to continue 4. Severe hypokalemia ? Corrected per protocol repeat labs ordered for monitoring 5. Hypertension - Blood pressure controlled, home medications continued with dose adjustment as needed 6. History of previous right MCA CVA ? With no residual effect 7. Dyslipidemia As per history patient apparently did develop intolerance to statin therapy 8.GERD ? On PPI 9.DVT prophylaxis ?On rivaroxaban Time spent in the patient's overall evaluation,decision-making process, review of diagnostic data, adjustment of management, discussion with other providers, nursing nursing and ancillary staff involved in patient's care documentation, 77 Minutes Advance planning; did discuss with the patient and family regarding advanced directives as well as CODE STATUS. Did explain the various scenarios involved (FULL CODE, DNR CCA, DNR CCA with no intubation, and DNR CC and what each meant) patient elected to be DNR CCA no intubation. Order was placed. Time spent on discussion 18 minutes. Charges/Coding Visit Charges Inpatient E&M: 69708 Init Hosp L3 Procedures Hospitalists Procedures: 83730 Advncd Care Plan 30 Min 02/08/23 1329 <Electronically signed by Himanshu Reynolds MD> Cosigner Signature (if applicable): CC: Dr. Deepika Fabian MD; Dr. Himanshu Reynolds MD~ Signed [facility] Work Phone: [phone]) 416-660805-04-[address] Cedeno [facility] February 08, 2023 1:04pm Note Date/Time February 08, 2023 10:56a m [facility] Medical Records Department [address] [place] [address] Emergency Department Summary 02/08/23 MR#: [id number] Acct: [id number] Name: DEA MERRITT Rep #:[id number] : 1935 87 From: Tobi Cedeno MD PCP: Dr. Deepika Fabian MD Status:REG ER Location: ED HPI HPI - GI History of Present Illness Chief Complaint: Diarrhea Informant: patient and family Narrative Narrative: History is from patient and daughter. Patient complains of returning diarrhea and increasing pain in her right foot more than the left. The patient started with diarrhea in October. She was seen in the ER. She was started on a prednisone taper and also budesonide tablets which she is still taking. Prednisone was over before her visit with Dr. Wood in early December. Stool studies were sent off but they are not familiar with the results. They have follow-up in March. She states that yesterday she had 1 softer bowel movement and today she had another 1. These were large diarrhea but there is still some structure to the stool. It was not watery diarrhea as it had been. No blood was seen. It was not black. She is not having abdominal pain or fevers. She is not having nausea or vomiting. Although she does not eat a lot she has still been eating and drinking. Patient was also on doxycycline prescribed in 01 January for a skin infection of a mole on her back. The infection is better. Patient has never had C. difficile colitis. The daughter states that her diarrhea had an odor to it but it was not anything that she thought of is outside of normal. Note that she does live alone. Patient also has been having problems with planter fasciitis for months. When she was on prednisone for the diarrhea and this helped the foot pain but its been coming back. The right one is bothering her more than the left. It is getting to the point where she is having trouble walking. She has a history of significant diffuse osteoarthritis. No trauma to the area. No fevers. Its notpainful when she is just sitting in bed. [facility] Medical History Abrasion of right upper back excluding scapular region Anxiety Arthritis involving multiple sites Cellulitis of mid back region CVA (cerebral vascular accident) (02/15/22) Essential hypertension GERD (gastroesophageal reflux disease) HLD (hyperlipidemia) Longstanding persistent atrial fibrillation Home Medications calcium carbonate 600 mg calcium (1,500 mg) tablet 600 mg PO DAILY 02/22/22 [History Last Taken Unknown] cinnamon bark 500 mg capsule 500 mg PO DAILY 02/22/22 [History Last Taken Unknown] coenzyme Q10 100 mg capsule (Co Q-10) 100 mg PO DAILY 02/22/22 [History Last Taken Unknown] magnesium oxide 400 mg (241.3 mg magnesium) tablet 400 mg PO DAILY 02/22/22 [History Last Taken Unknown] niacin 500 mg tablet 500 mg PO QHS 02/22/22 [History Last Taken Unknown] red yeast rice 600 mg tablet 600 mg PO BID 02/22/22 [History Last Taken Unknown] vitamin B complex 1 tab PO DAILY 02/22/22 [History Last Taken Unknown] fluorometholone 0.1 % eye drops,suspension 1 drp ophthalmic (eye) BID PRN Dry Eyes 03/02/22 [History Last Taken Unknown] lorazepam 0.5 mg tablet 0.25 mg PO DAILY PRN anxiety #15 tabs 05/04/22 [Rx Last Taken Unknown] famotidine 20 mg tablet 20 mg PO DAILY PRN GERD 08/23/22 [History Last Taken Unknown] hydrochlorothiazide 25 mg tablet 25 mg PO DAILY #30 tabs 10/03/22 [Rx Last Taken Unknown] losartan 100 mg tablet 100 mg PO DAILY #30 tabs 10/03/22 [Rx Last Taken Unknown] metoprolol tartrate 25 mg tablet 25 mg PO BID #60 tabs 10/03/22 [Rx Last Taken Unknown] omeprazole 20 mg capsule,delayed release 20 mg PO DAILY 8 weeks #56 caps 11/10/22 [Rx Last Taken Unknown] prednisone 10 mg tablet See Rx Instructions .Route .COMPLEX #70 tabs 11/10/22 [Rx Last Taken Unknown] budesonide 3 mg capsule,delayed,extended release 6 mg PO DAILY #60 ea 12/13/22 [Rx Last Taken Unknown] doxycycline monohydrate 100 mg capsule 100 mg PO BID #20 caps 01/01/23 [Rx Last Taken Unknown] rivaroxaban 20 mg tablet (Xarelto) 20 mg PO QPM #90 tabs 01/26/23 [Rx Last Taken Unknown] Allergy/AdvReac Type Severity Reaction Status Date / Time clindamycin Allergy Other Verified 02/08/23 10:32 hyoscyamine Allergy Other Verified 02/08/23 10:32 Penicillins Allergy Hives Verified 02/08/23 10:32 Yqdlikk-VNF-OaV Reductase Allergy Pain in Verified 02/08/23 10:32 Inhibitor joints [Ekqjmoz-Bcu-Stk Reductase Inhibitor] glucosamine AdvReac Other Verified 02/08/23 10:32 Family History Father Diabetes Hyperlipemia Mother Cancer stomach Brother Parkinson's disease Surgical History Cataract extraction status Social History household members: none 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 occupational status: 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 pets and animals: Yes pets and animals: cat(s) Smoking Status: Never smoker alcohol intake: current alcohol intake frequency: holidays/special occasions only substance use type: does not use what type of physical activity do you participate in: other details: gardening do you feel safe at home: Yes ROS ROS ED Constitutional Constitutional ED: Denies fever(s) ENT ENT ED: Denies rhinorrhea Cardiovascular Cardiovascular: Denies chest pain or palpitations Respiratory/Chest Respiratory/Chest: Denies cough or dyspnea Gastrointestinal Gastrointestinal: Reports diarrhea; Denies abdominal pain, nausea or vomiting Musculoskeletal Musculoskeletal: Reports arthralgias; Denies myalgias Integumentary Denies rash Neurologic Neurologic: Denies headache(s) Hematologic/Lymphatic Hematologic/Lymphatic: Reports easy bleeding and easy bruising Allergic/Immunologic Allergic/Immunologic ED: Denies urticaria EXAM Physical Exam Narrative Exam Narrative: CONSTITUTIONAL: Patient is nontoxic in appearance. The patient looks comfortable. HEENT: No notable trauma. Mucous membranes mildly dry. No sinus tenderness. EYES: No conjunctival injection. No icterus. CARDIOVASCULAR: Regular rate. Regular rhythm. No notable murmur. No JVD. RESPIRATORY: No respiratory distress. Breathing is unlabored. No wheezes. GASTROINTESTINAL: Abdomen is flat and not distended. Bowel sounds are normal do not sound increased. No tenderness. No guarding. No rebound. No palpable mass. GENITOURINARY: No tenderness over the bladder. MUSCULOSKELETAL: Atraumatic. No peripheral edema. Patient's right ankle does seem to have a little bit of swelling. But it is not red or warm. I can move it passively without any pain. I do not think this is infected at all. NEUROLOGICAL: Patient is alert and appropriate. No focal deficit noted. Daughter is a better informant for details. SKIN: No noted rashes. No diaphoresis. PSYCHIATRIC: Patient is calm. Mood is appropriate. Const Vital Signs: 02/08/23 10:32 Temperature 98 F Temperature Source Temporal Pulse Rate 104 H Respiratory Rate 14 Blood Pressure 141/64 H Blood Pressure Mean 89 MDM MDM MDM Narrative Medical decision making narrative: Patient CBC shows no marked abnormalities. Electrolytes does show low potassium. She has had this problem off and on. I did replace this orally. She has slightly high BUN to creatinine ratio showing some mild dehydration and she was given some IV fluids. Liver function test showed no marked abnormalities. Urinalysis does not show any convincing signs of infection. My independent interpretation of her 3 view right ankle films show some soft tissue swelling left, osteopenia and mild arthritis. Final reading is similar. My concern with this patient is her overall weakness. She states she has fallenbefore when she gets diarrhea. She has a cane and a walker but has trouble using and getting around the house even with those. She is on Xarelto. This puts her at higher risk if she falls. Patient states she just feels too weak togo home. I think this is a combination of her age and chronic illness, dehydration and the diarrhea wearing her out, and it is hard for her to walk because of her foot pain. I will start prednisone as she has responded both from her bowel issues and the foot with this medication. It is thought that she may have either lymphocytic colitis or collagenous colitis when I reviewed an outpatient report by gastroenterology. I discussed the case with hospitalist and the patient will beadmitted due to the complex and interconnected risks as above. Lab Data Attestation: I reviewed the patient's lab results. Labs: Laboratory Results - last 24 hr 02/08/23 02/08/23 02/08/23 11:00 11:00 12:34 WBC 10.1 RBC 3.85 L Hgb 12.0 Hct 36.9 L MCV 95.8 MCH 31.2 MCHC 32.5 RDW Std Deviation 42.5 RDW Coeff of Palak 12.2 Plt Count 493 H MPV 8.8 Immature Gran % (Auto) 0.300 Neut % (Auto) 70.9 H Lymph % (Auto) 14.4 L Hunt % (Auto) 12.7 H Eos % (Auto) 1.0 Baso % (Auto) 0.7 Absolute Neuts (auto) 7.1 Absolute Lymphs (auto) 1.45 Nucleated RBC % 0 Sodium 137 Potassium 2.6 L* Chloride 98 Carbon Dioxide 29.0 Anion Gap 10 BUN 20 H Creatinine 0.93 Estim Creat Clear Calc 31.77 Est GFR (MDRD) Af Amer 74 Est GFR (MDRD) Non-Af 61 BUN/Creatinine Ratio 21.5 H Glucose 125 H Calcium 8.6 Total Bilirubin 0.40 AST 12 L ALT 20 Alkaline Phosphatase 66 Total Protein 6.8 Albumin 2.2 L Globulin 4.6 H Albumin/Globulin Ratio 0.5 L Urine Color Yellow Urine Clarity Clear Urine pH 7.0 Ur Specific Calmar 1.010 Urine Protein 30 H Urine Glucose (UA) Normal Urine Ketones 5 H Urine Occult Blood 10 H Urine Nitrite Negative Urine Bilirubin Negative Urine Urobilinogen Normal Ur Leukocyte Esterase 100 H Urine RBC 0 SEEN Urine WBC 5-10 SEEN Ur Squamous Epith Cells 0-5 SEEN Urine Bacteria 0 SEEN Urine Mucus 0 SEEN Radiography Diagnostic Testing: Clinical Impression(s) from Imaging Studies Ankle X-Ray 02/08/23 11:17 IMPRESSION: Soft tissue swelling. Electronically Signed: Waylon Samayoa MD at 11:49 EDT , Management Discussion w/another healthcare provider: Hospitalist Discharge Plan Triage Chief Complaint: Diarrhea ED Provider: Tobi Cedeno Dx/Rx/DC Orders Clinical Impression: Diarrhea, Acute dehydration, Foot pain, right, Inability to walk, Hypokalemia Prescriptions: No Action niacin 500 mg tablet 500 mg PO QHS coenzyme Q10 [Co Q-10] 100 mg capsule 100 mg PO DAILY vitamin B complex Tablet 1 tab PO DAILY red yeast rice 600 mg tablet 600 mg PO BID Rx Instructions: give with meal/snack cinnamon bark 500 mg capsule 500 mg PO DAILY magnesium oxide 400 mg (241.3 mg magnesium) tablet 400 mg PO DAILY calcium carbonate 600 mg calcium (1,500 mg) tablet 600 mg PO DAILY fluorometholone 0.1 % drops,suspension 1 drp ophthalmic (eye) BID PRN (Reason: Dry Eyes) lorazepam 0.5 mg tablet 0.25 mg PO DAILY PRN (Reason: anxiety) Qty: 15 0RF famotidine 20 mg tablet 20 mg PO DAILY PRN (Reason: GERD) doxycycline monohydrate 100 mg capsule 100 mg PO BID Qty: 20 0RF omeprazole 20 mg capsule,delayed release(DR/EC) 20 mg PO DAILY 56 Days Qty: 56 0RF prednisone 10 mg tablet See Rx Instructions .ROUTE .COMPLEX Qty: 70 0RF Rx Instructions: 40mg daily x 1 week, then 30mg daily x 1 week, then 20mg daily x 1 week, then 10mg daily x 1 week hydrochlorothiazide 25 mg tablet 25 mg PO DAILY Qty: 30 3RF losartan 100 mg tablet 100 mg PO DAILY Qty: 30 3RF metoprolol tartrate 25 mg tablet 25 mg PO BID Qty: 60 3RF budesonide 3 mg capsule,delayed,extend.release 6 mg PO DAILY Qty: 60 2RF Xarelto 20 mg tablet 20 mg PO QPM Qty: 90 0RF Rx Instructions: must administer with evening meal Primary Care Provider: Deepika Fabian Referrals: Deepika Fabian MD [Primary Care Provider] - Disposition Disposition: Acute Care Hospital [facility] What to do if you have Problems For any increased pain, shortness of breath, bleeding, nausea or vomiting, chestpain, or any unexpected problems, contact your Primary Care Provider. Call [facility] ([phone]) or report to the closest Emergency Room. Call 911 if necessary. 02/08/23 1304 <Electronically signed by Tobi Cedeno MD> Cosigner Signature (if applicable): CC: Dr. Deepika Fabian MD ~ Signed [facility] Work Phone: [phone]) 949-826602-03-[address] Irwin [facility] November 10, 2022 4:42pm Note Date/Time November 10, 2022 1 1:05am [facility] Medical Records Department [address] [place] [id number] Emergency Department Summary 11/10/22 MR#: [id number] Acct: [id number] Name: DEA MERRITT Rep #:[id number] : 1935 87 From: Christina Irwin MD PCP: Dr. Deepika Fabian MD Status:REG ER Location: ED HPI History of Present Illness Chief Complaint: Diarrhea Informant: patient and family Onset/Context/Timing Onset: Weeks Narrative Narrative: Patient presents secondary to diarrhea that has been ongoing for the last month. There have been no new medication changes. Patient has had some problems with low potassium and was in last week for an IV potassium infusion. Primary care physician did Giardia and enteric pathogens along with C. difficile that were all negative. Patient was recently seen for plantar fasciitis and put on a short course of prednisone. Family states the diarrhea actually improved while she was on prednisone, but returned once the medication stopped. Primary care physician did not want to start prednisone without having some imaging studies and patient was sent to the ER for labs and CT. Patient has been referred to GIbut does not have an appointment until January. She was referred to general surgery but cannot be seen until [address] [facility] Medical History Anxiety Arthritis involving multiple sites CVA (cerebral vascular accident) (02/15/22) Essential hypertension GERD (gastroesophageal reflux disease) HLD (hyperlipidemia) Longstanding persistent atrial fibrillation Home Medications calcium carbonate 600 mg calcium (1,500 mg) tablet 600 mg PO DAILY 02/22/22 [History Last Taken Unknown] cinnamon bark 500 mg capsule 500 mg PO DAILY 02/22/22 [History Last Taken Unknown] coenzyme Q10 100 mg capsule (Co Q-10) 100 mg PO DAILY 02/22/22 [History Last Taken Unknown] magnesium oxide 400 mg (241.3 mg magnesium) tablet 400 mg PO DAILY 02/22/22 [History Last Taken Unknown] niacin 500 mg tablet 500 mg PO QHS 02/22/22 [History Last Taken Unknown] red yeast rice 600 mg tablet 600 mg PO BID 02/22/22 [History Last Taken Unknown] vitamin B complex 1 tab PO DAILY 02/22/22 [History Last Taken Unknown] fluorometholone 0.1 % eye drops,suspension 1 drp ophthalmic (eye) BID PRN Dry Eyes 03/02/22 [History Last Taken Unknown] lorazepam 0.5 mg tablet 0.25 mg PO DAILY PRN anxiety #15 tabs 05/04/22 [Rx Last Taken Unknown] famotidine 20 mg tablet 20 mg PO DAILY PRN GERD 08/23/22 [History Last Taken Unknown] hydrochlorothiazide 25 mg tablet 25 mg PO DAILY #30 tabs 10/03/22 [Rx Last Taken Unknown] losartan 100 mg tablet 100 mg PO DAILY #30 tabs 10/03/22 [Rx Last Taken Unknown] metoprolol tartrate 25 mg tablet 25 mg PO BID #60 tabs 10/03/22 [Rx Last Taken Unknown] rivaroxaban 20 mg tablet (Xarelto) 20 mg PO QPM #90 tabs 11/01/22 [Rx Last Taken Unknown] budesonide 6 mg capsule,extended release 6 mg PO DAILY #90 caps 11/10/22 [Rx Last Taken Unknown] omeprazole 20 mg capsule,delayed release 20 mg PO DAILY 8 weeks #56 caps 11/10/22 [Rx Last Taken Unknown] prednisone 10 mg tablet See Rx Instructions .Route .COMPLEX #70 tabs 11/10/22 [Rx Last Taken Unknown] Allergy/AdvReac Type Severity Reaction Status Date / Time clindamycin Allergy Other Verified 11/10/22 10:40 hyoscyamine Allergy Other Verified 11/10/22 10:40 Penicillins Allergy Hives Verified 11/10/22 10:40 Hvddnnr-DKP-DaR Reductase Allergy Pain in Verified 11/10/22 10:40 Inhibitor joints [Vvfmkjv-Qmu-Bgp Reductase Inhibitor] glucosamine AdvReac Other Verified 11/10/22 10:40 Family History Father Diabetes Hyperlipemia Mother Cancer stomach Surgical History Cataract extraction status Social History household members: none current occupational status: 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 pets and animals: Yes pets and animals: cat(s) Smoking Status: Never smoker alcohol intake: current alcohol intake frequency: holidays/special occasions only substance use type: does not use what type of physical activity do you participate in: other details: gardening do you feel safe at home: Yes ROS ROS ED Constitutional Constitutional ED: Denies chills or fever(s) Eyes Eyes: Denies change in vision or discharge from eye(s) ENT ENT ED: Denies discharge from eye(s), rhinorrhea or sore throat Cardiovascular Cardiovascular: Denies chest pain or palpitations Respiratory/Chest Respiratory/Chest: Denies cough or dyspnea Gastrointestinal Gastrointestinal: Reports diarrhea; Denies abdominal pain, nausea or vomiting Genitourinary Genitourinary ED: Denies dysuria Musculoskeletal Musculoskeletal: Denies back pain or extremity pain Integumentary Denies Abrasions or rash Neurologic Neurologic: Denies headache(s) or weakness Psychiatric Psychiatric: Denies anxiety or depression Allergic/Immunologic Allergic/Immunologic ED: Denies lip swelling or urticaria EXAM Physical Exam Const Vital Signs: 11/10/22 10:40 11/10/22 12:39 Temperature 97.1 F L Temperature Source Temporal Pulse Rate 83 79 Respiratory Rate 17 16 Blood Pressure 137/53 H 136/68 H Blood Pressure Mean 81 90 Pulse Ox 100 96 Oxygen Delivery Method Room Air Room Air Positive well nourished and well developed General Appearance ED: well developed HEENT Reports normocephalic and head/scalp atraumatic Eyes PERRL and EOMs intact bilaterally Neck supple Chest Wall inspection of chest normal and palpation of chest normal Resp normal respiratory effort and clear to auscultation bilaterally Cardio regular rate and regular rhythm GI normal to inspection, nondistended, normoactive bowel sounds Palpation: soft Extremity normal to inspection Neuro oriented x3 and no sensory deficits noted Sensorium / Orientation: alert Motor Exam: strength 5/5 throughout Psych mental status grossly normal Skin no rashes or lesions noted MDM MDM MDM Narrative Medical decision making narrative: Lab work obtained to evaluate for anemia, leukocytosis, electrolyte derangement. Urinalysis obtained. CT scan of the abdomen and pelvis with contrast obtained. Lab Data Attestation: I reviewed the patient's lab results. Labs: Laboratory Results - last 24 hr 11/10/22 11/10/22 11/10/22 11:10 11:10 12:14 WBC 10.0 RBC 3.82 L Hgb 11.7 L Hct 36.5 L MCV 95.5 MCH 30.6 MCHC 32.1 RDW Std Deviation 42.5 RDW Coeff of Palak 12.2 Plt Count 443 MPV 9.1 Immature Gran % (Auto) 1.000 H Neut % (Auto) 62.1 Lymph % (Auto) 23.1 Hunt % (Auto) 11.8 H Eos % (Auto) 1.4 Baso % (Auto) 0.6 Absolute Neuts (auto) 6.2 Absolute Lymphs (auto) 2.31 Nucleated RBC % 0 Sodium 138 Potassium 2.6 L* Chloride 97 L Carbon Dioxide 31.0 Anion Gap 10 BUN 16 Creatinine 0.94 Estim Creat Clear Calc 33.02 Est GFR (MDRD) Af Amer 72 Est GFR (MDRD) Non-Af 60 BUN/Creatinine Ratio 16.9 Glucose 102 Calcium 8.5 Total Bilirubin 0.30 Direct Bilirubin 0.10 AST 15 ALT 23 Alkaline Phosphatase 63 Total Protein 6.8 Albumin 2.4 L Globulin 4.4 H Urine Color Yellow Urine Clarity Clear Urine pH 7.0 Ur Specific Calmar 1.005 Urine Protein Negative Urine Glucose (UA) Normal Urine Ketones Negative Urine Occult Blood Negative Urine Nitrite Negative Urine Bilirubin Negative Urine Urobilinogen Normal Ur Leukocyte Esterase 100 H Urine RBC 0 SEEN Urine WBC 0 SEEN Ur Squamous Epith Cells 0-5 SEEN Ur Renal Epithelial Cell 0-5 SEEN Urine Bacteria 0 SEEN Urine Mucus 0 SEEN Radiography Diagnostic Testing: Clinical Impression(s) from Imaging Studies Abdomen/Pelvis CT 11/10/22 11:02 IMPRESSION: Status post cholecystectomy. Mild degree of the intrahepatic biliary ductal dilatation. Electronically Signed: Waylon Samayoa MD at 13:05 EST , Treatment and Re-Evaluation Narrative: CBC reveals normal white count. Hemoglobin is 11.7. Chemistry studies significant for potassium of 2.6. LFTs unremarkable. Urinalysis reveals no infection. No ketones noted. CT scan with contrast reveals mild degree of intrahepatic biliary ductal dilatation. No bowel abnormalities noted. Patient was ordered 40 mEq of IV potassium replacement. That is currently beinginfused. I spoke with Dr. Wood as the patient is currently referred to him and has an appointment in January. He states that the patient may have more of a microscopic colitis since she did seem to have a response to steroids. He wouldlike the patient started on budesonide 6 mg daily. We will start the patient onprednisone 40 mg a day for 1 week, and then taper by 10 mg each week. Patient is to follow with her primary care physician regarding hypokalemia. She is to follow-up with Dr. Wood regarding her diarrhea and abdominal findings. Returninstructions given. Discharge Plan Triage Chief Complaint: Diarrhea ED Provider: Christina Irwin Dx/Rx/DC Orders Clinical Impression: Hypokalemia, Diarrhea Instructions: ED Diarrhea, Unknown Cause Prescriptions: New omeprazole 20 mg capsule,delayed release(DR/EC) 20 mg PO DAILY 56 Days Qty: 56 0RF budesonide 6 mg capsule, extended release 6 mg PO DAILY Qty: 90 0RF prednisone 10 mg tablet See Rx Instructions .ROUTE .COMPLEX Qty: 70 0RF Rx Instructions: 40mg daily x 1 week, then 30mg daily x 1 week, then 20mg daily x 1 week, then 10mg daily x 1 week No Action niacin 500 mg tablet 500 mg PO QHS coenzyme Q10 [Co Q-10] 100 mg capsule 100 mg PO DAILY vitamin B complex Tablet 1 tab PO DAILY red yeast rice 600 mg tablet 600 mg PO BID Rx Instructions: give with meal/snack cinnamon bark 500 mg capsule 500 mg PO DAILY magnesium oxide 400 mg (241.3 mg magnesium) tablet 400 mg PO DAILY calcium carbonate 600 mg calcium (1,500 mg) tablet 600 mg PO DAILY fluorometholone 0.1 % drops,suspension 1 drp ophthalmic (eye) BID PRN (Reason: Dry Eyes) lorazepam 0.5 mg tablet 0.25 mg PO DAILY PRN (Reason: anxiety) Qty: 15 0RF famotidine 20 mg tablet 20 mg PO DAILY PRN (Reason: GERD) Xarelto 20 mg tablet 20 mg PO QPM Qty: 90 0RF Rx Instructions: must administer with evening meal hydrochlorothiazide 25 mg tablet 25 mg PO DAILY Qty: 30 3RF losartan 100 mg tablet 100 mg PO DAILY Qty: 30 3RF metoprolol tartrate 25 mg tablet 25 mg PO BID Qty: 60 3RF Primary Care Provider: Deepika Fabian Referrals: Deepika Fabian MD [Primary Care Provider] - 3-5 Days Jb Wood DO [Med Staff - Active Staff] - Keep Constance appointment (Call to see if your appointment can be moved sooner.) Disposition Disposition: Home, Self Care What to do if you have Problems For any increased pain, shortness of breath, bleeding, nausea or vomiting, chestpain, or any unexpected problems, contact your Primary Care Provider. Call [facility] ([phone]) or report to the closest Emergency Room. Call 911 if necessary. 11/10/22 [id number] <Electronically signed by Christina Irwin MD> Cosigner Signature (if applicable): CC: Dr. Deepika Fabian MD ~ Signed [facility] Work Phone: [phone] Irwin [facility] November 04, 2022 2:09pm Note Date/Time November 04, 2022 1 1:28am [facility] Medical Records Department [address] [place] [address] Emergency Department Summary 11/04/22 MR#: [id number] Acct: [id number] Name: DEA MERRITT Rep #:[id number] : 1935 87 From: Christina Irwin MD PCP: Dr. Deepika Fabian MD Status:REG ER Location: ED HPI History of Present Illness Chief Complaint: Lower Extremity Injury Detail of Chief Complaint: Right foot pain Informant: patient Onset/Context/Timing Onset: Days (3 to 4 days) Context: Gradual Onset Current Severity: Mild Maximum Severity: Moderate Narrative Narrative: Patient presents secondary to right foot pain. She denies any known injury. She states she noticed slight stiffness and pain on Sunday that is progressed throughout the week. Today she is having difficulty walking. She states the pain is across the arch of her foot. She has no known injury. Daughter states that she has been walking on her treadmill quite a bit. [facility] Medical History Anxiety Arthritis involving multiple sites CVA (cerebral vascular accident) (02/15/22) Essential hypertension GERD (gastroesophageal reflux disease) HLD (hyperlipidemia) Longstanding persistent atrial fibrillation Home Medications calcium carbonate 600 mg calcium (1,500 mg) tablet 600 mg PO DAILY 02/22/22 [History Last Taken Unknown] cinnamon bark 500 mg capsule 500 mg PO DAILY 02/22/22 [History Last Taken Unknown] coenzyme Q10 100 mg capsule (Co Q-10) 100 mg PO DAILY 02/22/22 [History Last Taken Unknown] magnesium oxide 400 mg (241.3 mg magnesium) tablet 400 mg PO DAILY 02/22/22 [History Last Taken Unknown] niacin 500 mg tablet 500 mg PO QHS 02/22/22 [History Last Taken Unknown] red yeast rice 600 mg tablet 600 mg PO BID 02/22/22 [History Last Taken Unknown] vitamin B complex 1 tab PO DAILY 02/22/22 [History Last Taken Unknown] fluorometholone 0.1 % eye drops,suspension 1 drp ophthalmic (eye) BID PRN Dry Eyes 03/02/22 [History Last Taken Unknown] lorazepam 0.5 mg tablet 0.25 mg PO DAILY PRN anxiety #15 tabs 05/04/22 [Rx Last Taken Unknown] psyllium husk (aspartame) 3.4 gram/5.8 gram oral powder (Metamucil [facility] Fiber) 5.8 g PO DAILY #660 grams 07/05/22 [Rx Last Taken Unknown] mixed vegetables tablet PO 07/12/22 [History Last Taken Unknown] famotidine 20 mg tablet 20 mg PO DAILY PRN 08/23/22 [History Last Taken Unknown] hydrochlorothiazide 25 mg tablet 25 mg PO DAILY #30 tabs 10/03/22 [Rx Last Taken Unknown] losartan 100 mg tablet 100 mg PO DAILY #30 tabs 10/03/22 [Rx Last Taken Unknown] metoprolol tartrate 25 mg tablet 25 mg PO BID #60 tabs 10/03/22 [Rx Last Taken Unknown] potassium chloride 20 mEq tablet,extended release(part/cryst) (Klor-Con M) 20 meq PO DAILY #5 TABLETS 11/01/22 [Rx Last Taken Unknown] rivaroxaban 20 mg tablet (Xarelto) 20 mg PO QPM #90 tabs 11/01/22 [Rx Last Taken Unknown] prednisone 20 mg tablet 20 mg PO DAILY #4 tabs 11/04/22 [Rx Last Taken Unknown] Allergy/AdvReac Type Severity Reaction Status Date / Time clindamycin Allergy Other Verified 11/04/22 10:59 hyoscyamine Allergy Other Verified 11/04/22 10:59 Penicillins Allergy Hives Verified 11/04/22 10:59 Nmaqsus-YXA-JqI Reductase Allergy Pain in Verified 11/04/22 10:59 Inhibitor joints [Lsianms-Lrl-Wfz Reductase Inhibitor] glucosamine AdvReac Other Verified 11/04/22 10:59 Family History Father Diabetes Hyperlipemia Mother Cancer stomach Surgical History Cataract extraction status Social History household members: none 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 occupational 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: 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 pets and animals: Yes pets and animals: cat(s) Smoking Status: Never smoker alcohol intake: current alcohol intake frequency: holidays/special occasions only substance use type: does not use what type of physical activity do you participate in: other details: gardening do you feel safe at home: Yes ROS ROS ED Constitutional Constitutional ED: Denies chills or fever(s) Eyes Eyes: Denies change in vision or discharge from eye(s) ENT ENT ED: Denies discharge from eye(s), rhinorrhea or sore throat Cardiovascular Cardiovascular: Denies chest pain or palpitations Respiratory/Chest Respiratory/Chest: Denies cough or dyspnea Gastrointestinal Gastrointestinal: Denies abdominal pain, nausea or vomiting Genitourinary Genitourinary ED: Denies dysuria Musculoskeletal Musculoskeletal: Reports extremity pain; Denies back pain Integumentary Denies Abrasions or rash Neurologic Neurologic: Denies headache(s) or weakness Psychiatric Psychiatric: Denies anxiety or depression Allergic/Immunologic Allergic/Immunologic ED: Denies lip swelling or urticaria EXAM Physical Exam Const Vital Signs: 11/04/22 11:00 Temperature 98.2 F Temperature Source Temporal Pulse Rate 83 Respiratory Rate 17 Blood Pressure 105/57 L Blood Pressure Mean 73 Pulse Ox 98 Oxygen Delivery Method Room Air Positive well nourished and well developed General Appearance ED: well developed HEENT Reports moist mucous membranes Eyes EOMs intact bilaterally Chest Wall inspection of chest normal and palpation of chest normal Resp normal respiratory effort and clear to auscultation bilaterally Cardio regular rate and regular rhythm GI normal to inspection, nondistended, normoactive bowel sounds Extremity Extremity Narrative: Patient has reproducible tenderness along the plantar fascia on the plantar surface of her foot. No open wounds or skin changes are noted. She does have pain with dorsiflexion of her toes. Good cap refill and sensation distally. Notenderness at the ankle or calf. Neuro oriented x3 and no sensory deficits noted Motor Exam: strength 5/5 throughout Psych mental status grossly normal Skin no rashes or lesions noted MDM MDM MDM Narrative Medical decision making narrative: Right foot x-rays obtained. Patient given Tylenol for pain. Radiography Diagnostic Testing: Clinical Impression(s) from Imaging Studies Foot X-Ray 11/04/22 11:18 IMPRESSION: 1. No acute findings in the right foot. 2. 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 Electronically Signed: Rex Rivera MD at 12:06 EST Reading Location ID and State: [facility] / [place] , Service support , Treatment and Re-Evaluation Narrative: Right foot x-ray per my interpretation reveals no acute fracture. Radiology interpretation is reviewed and agrees. Clinically patient has Planter fasciitis. Ethan wrap is applied to the foot. We discussed appropriate stretching. I will write her a short burst of prednisone, 20 mg tabs that she will take with food only. We discussed risks given her use of anticoagulants and she voices understanding. Discharge Plan Triage Chief Complaint: Lower Extremity Injury ED Provider: Christina Irwin Dx/Rx/DC Orders Clinical Impression: Plantar fasciitis Instructions: ED Plantar Fasciitis Prescriptions: New prednisone 20 mg tablet 20 mg PO DAILY Qty: 4 0RF No Action niacin 500 mg tablet 500 mg PO QHS coenzyme Q10 [Co Q-10] 100 mg capsule 100 mg PO DAILY vitamin B complex Tablet 1 tab PO DAILY red yeast rice 600 mg tablet 600 mg PO BID Rx Instructions: give with meal/snack cinnamon bark 500 mg capsule 500 mg PO DAILY magnesium oxide 400 mg (241.3 mg magnesium) tablet 400 mg PO DAILY calcium carbonate 600 mg calcium (1,500 mg) tablet 600 mg PO DAILY fluorometholone 0.1 % drops,suspension 1 drp ophthalmic (eye) BID PRN (Reason: Dry Eyes) lorazepam 0.5 mg tablet 0.25 mg PO DAILY PRN (Reason: anxiety) Qty: 15 0RF Metamucil [facility] Fiber 3.4 gram/5.8 gram powder 5.8 g PO DAILY Qty: 660 0RF mixed vegetables tablet PO famotidine 20 mg tablet 20 mg PO DAILY PRN Xarelto 20 mg tablet 20 mg PO QPM Qty: 90 0RF Rx Instructions: must administer with evening meal potassium chloride [Klor-Con M20] 20 mEq tablet,ER particles/crystals 20 meq PO DAILY Qty: 5 0RF hydrochlorothiazide 25 mg tablet 25 mg PO DAILY Qty: 30 3RF losartan 100 mg tablet 100 mg PO DAILY Qty: 30 3RF metoprolol tartrate 25 mg tablet 25 mg PO BID Qty: 60 3RF Primary Care Provider: Deepika Fabian Referrals: Deepika Fabian MD [Primary Care Provider] - 1 Week Disposition Disposition: Home, Self Care What to do if you have Problems For any increased pain, shortness of breath, bleeding, nausea or vomiting, chestpain, or any unexpected problems, contact your Primary Care Provider. Call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 criminally investigate or prosecute any alcohol or drug abuse patient.[facility] the event this information is protected by the Federal Confidentiality of Alcohol and Drug Abuse Patient Records regulations: The Federal rules restrict any use of the information to criminally investigate or prosecute any alcohol or drug abuse patient.[facility] the event this information is protected by the Federal Confidentiality of Alcohol and Drug Abuse Patient Records regulations: The Federal rules restrict any use of the information to criminally investigate or prosecute any alcohol or drug abuse patient.[facility] the event this information is protected by the Federal Confidentiality of Alcohol and Drug Abuse Patient Records regulations: The Federal rules restrict any use of the information to criminally investigate or prosecute any alcohol or drug abuse patient.[facility] Hospital[facility] the event this information is protected by the Federal Confidentiality of Alcohol and Drug Abuse Patient Records regulations: The Federal rules restrict any use of the information to criminally investigate or prosecute any alcohol or drug abuse patient.[facility] HospitalIn the event this information is protected by the Federal Confidentiality of Alcohol and Drug Abuse Patient Records regulations: The Federal rules restrict any use of the information to criminally investigate or prosecute any alcohol or drug abuse patient.[facility] HospitalIn the event this information is protected by the Federal Confidentiality of Alcohol and Drug Abuse Patient Records regulations: The Federal rules restrict any use of the information to criminally investigate or prosecute any alcohol or drug abuse patient.[facility] HospitalIn the event this information is protected by the Federal Confidentiality of Alcohol and Drug Abuse Patient Records regulations: The Federal rules restrict any use of the information to criminally investigate or prosecute any alcohol or drug abuse patient.[facility] Hospital[facility] the event this information is protected by the Federal Confidentiality of Alcohol and Drug Abuse Patient Records regulations: The Federal rules restrict any use of the information to criminally investigate or prosecute any alcohol or drug abuse patient.[facility] HospitalIn the event this information is protected by the Federal Confidentiality of Alcohol and Drug Abuse Patient Records regulations: The Federal rules restrict any use of the information to criminally investigate or prosecute any alcohol or drug abuse patient.[facility] Reason for Visit (unrecogniz ed section and content) Reason Comments Received Outside Medical Records ED summ drea, imaging, and labs from [facility] Reason Comments Received Outside Medical Records EKG fro m [facility] Reason Comments Altered mental status Specialty Diagnoses / Procedures Referred By Eligio t Referred To Contact Diagnoses confusion Referral ID Status Reason Start Date Expiration Date Visits Re quested Visits Authorized [id number] 1 1 Reason Comments Patient Update [facility] Reason Comments Transition Of Care Reason Comments Received Outside Medical Records from [facility] (speech therapy eval) Reason Comments Received Outside Medical Records [facility] Reason Comments Orders reviewed and signed by PCP and faxed back to [facility] occupational therapy. Reason Comments Received Outside Medical Records [facility] sammy rology Reason Comments Received Outside Medical Records [facility] discharge summary [facility] 04/06/2022 Reason Comments Outside Lab Results [facility] Reason Comments Refill Request Reason Onset Date Comments Population Health [facility] (unrecognized sec tion and content) Informatics Coordinator Relationship Specialty Start Date End Date Harris Mota MD [address] [place], [place] [id number] PCP - General Family Practice 10/12/10 Informatics Coordinator Relationship Specialty Start Date End Date Vamsi Mota MD [address] [place] [address] [address] [place], [place] [id number] PCP - General Family Medicine 02/17/22 Informatics Coordinator Relationship Specialty Start Date End Date Harris Mota MD [address] [place], [place] [address] PCP - General Family Practice 10/12/10 Informatics Coordinator Relationship Specialty Start Date End Date Harris Mota MD [address] [place], [place] [address] PCP - General Family Practice 10/12/10 Informatics Coordinator Relationship Specialty Start Date End Date Harris Mota MD [address] [place], [place] [address] PCP - General Family Practice 10/12/10 Informatics Coordinator Relationship Specialty Start Date End Date Harris Mota MD [address] [place], [place] [id number] PCP - General Family Medicine 10/12/10 Team Status: Active Member Role Status Dates Dr. Vamsi Mota MD Family Provider Active Dr. Deepika Fabian MD Primary Care Provider Active Team Status: Inactive Member Role Status Dates Dr. Vamsi Mota MD Referring Provider Active Emma Pitts PA, PA Attending Provider Active Dr. Deepika Fabian MD Primary Care Provider Active Team Status: Inactive Member Role Status Dates Dr. Vamsi Mota MD Referring Provider Active Dr. Deepika Fabian MD Primary Care Provider, Attendi ng Provider Active Team Status: Inactive Member Role Status Dates Dr. Deepika Fabian MD Primary Care Pro vider, Attending Provider, Referring Provider Active Team Status: Inactive Member Role Status Dates Dr. Deepika Fabian MD Primary Care Provider Active Dr. Andrae Tomlinson MD Attending Provider Active Team Status: Inactive Member Role Status Dates Dr. Deepika Fabian MD Primary Care Provider Active Dr. Wilfredo Moyer MD Attending Provider, Emergency Pro vider Active Team Status: Active Member Role Status Dates Dr. Deepika Fabian MD Primary Care Pro vider, Attending Provider, Referring Provider Active Team Status: Inactive Member Role Status Dates Dr. Deepika Fabian MD Primary Care Provider Active Dr. Jin Gibson DO Emergency Provider Active Team Status: Inactive Member Role Status Dates Dr. Deepika Fabian MD Primary Care Provider Active Dr. Christina Irwin MD Emergency Provider Active Team Status: Active Member Role Status Dates Dr. Deepika Fabian MD Primary Care Provider Active Allison Tomlinson INSTRUCTOR ROBOTICS, IN[employer]CTOR ROB[employer]-C Attending Provider Active Team Status: Inactive Member Role Status Dates Dr. Deepika Fabian MD Primary Care Provider Active Dr. Jin Gibson DO Attending Provider, Emergency P rovider Active Team Status: Inactive Member Role Status Dates Dr. Deepika Fabian MD Primary Care Provider Active Dr. Christina Irwin MD Attending Provider, Emergency Provider Active Team Status: Inactive Member Role Status Dates Dr. Deepika Fabian MD Primary Care Provider, Referri ng Provider Active Dr. Jb Wood DO Attending Provider Active Team Status: Inactive Member Role Status Dates Dr. Deepika Fabian MD Primary Care Provider Active Dr. Jb Wood DO Attending Provider Active Team Status: Inactive Member Role Status Dates Dr. Deepika Fabian MD Primary Care Provider, Referri ng Provider Active Ashu Mendoza PA, PA Attending Provider Active Team Status: Active Member Role Status Dates Dr. Deepika Fabian MD Primary Care Provider Active Dr. Tobi Cedeno MD Emergency Provider Active Dr. Himanshu Reynolds MD Admit Provider, At tending Provider, Other Provider Active Team Status: Active Member Role Status Dates Dr. Deepika Fabian MD Primary Care Provider Active Dr. Tobi Cedeno MD Emergency Provider Active Dr. Himanshu Reynolds MD Admit Provider, At tending Provider, Other Provider Active Dr. Emanuel Rod , [place] Other Provider Active Team Status: Active Member Role Status Dates Dr. Deepika Fabian MD Primary Care Provider Active Dr. Tobi Cedeno MD Emergency Provider Active Dr. Himanshu Reynolds MD Admit Provider, Other Provider A ctive Dr. Emanuel Rod , [place] Other Provider Active Dr. Rebecca Price MD Attending Provider Active Team Status: Active Member Role Status Dates Dr. Deepika Fabian MD Primary Care Provider Active Dr. Tobi Cedeno MD Emergency Provider Active Dr. Himanshu Reynolds MD Admit Provider, Other Provider A ctive Dr. Emanuel Rod , [place] Other Provider Active Dr. Jody Moffett MD Attending Provider, Other Provid er Active Team Status: Inactive Member Role Status Dates Dr. Deepika Fabian MD Primary Care Provider Active Dr. Tobi Cedeno MD Emergency Provider Active Dr. Himanshu Reynolds MD Admit Provider, Other Provider A ctive Dr. Emanuel Rod , [place]ree Other Provider Active Dr. Jody Moffett MD Attending Provider Active Team Status: Active Member Role Status Dates Dr. Deepika Fabian MD Primary Care Provider Active Dr. Toib Cedeno MD Emergency Provider Active Dr. Himanshu Reynolds MD Admit Provider, Other Provider A ctive Dr. Emanuel Rod , [place] Other Provider Active Dr. Rebecca Price MD Active Dr. Jody Moffett MD Attending Provider Active Team Status: Active Member Role Status Dates Dr. Deepika Fabian MD Primary Care Provider Active Dr. Melisa Montes MD Attending Provider Activ e Dr. Himanshu Reynolds MD Referring Provider Active Team Status: Active Member Role Status Dates Dr. Deepika Fabian MD Primary Care Provider Active FEDERICO Bishop Attending Provider Active Team Status: Active Member Role Status Dates Dr. Deepika Fabian MD Primary Care Provider Active Grace VERMA MD Attending Provider Active Team Status: Inactive Member Role Status Dates Dr. Deepika Fabian MD Primary Care Provider, [facility] Active Informatics Coordinator Relationship Specialty Start Date End Date Harris Mota MD [address] [place] [address] PCP - General Family Medicine 10/12/10 Team Status: Inactive Member Role Status Dates Dr. Deepika Fabian MD Primary Care Provider Active Allison Tomlinson INSTRUCTOR ROBOTICS, INSTRUCTOR [employer]-C Attending Provider Active Team Status: Inactive Member Role Status Dates Dr. Deepika Fabian MD Primary Care Provider Active Dr. Grace Luna MD Attending Provider Active Team Status: Inactive Member Role Status Dates Dr. Deepika Fabian MD Primary Care Provider, Referri ng Provider Active Terrell FUENTES PA Attending Provider Active Team Status: Inactive Member Role Status Dates Dr. Deepika Fabian MD Primary Care Provider Active Terrell FUENTES PA Attending Provider Active Informatics Coordinator Relationship Specialty Start Date End Date Harris Mota MD [address] [facility] [place] [address] PCP - [facility] 10/12/10 Team Status: Inactive Member Role Status Dates Dr. Deepika Fabian MD Primary Care Provider Active Start: November 13, 2024 End: November 13, 2024 Dr. Deepika Fabian MD Attending Provider Active Start: November 13, 2024 End: November 13, 2024 Dr. Deepika Fabian MD Referring Provider Active Start: November 13, 2024 End: November 13, 2024 Team Status: Inactive Member Role Status Dates Dr. Deepika Fabian MD Primary Care Provider Active Start: November 13, 2024 End: November 13, 2024 Dr. Deepika Fabian MD Referring Provider Active Start: November 13, 2024 End: November 13, 2024 Emma Pitts PA, PA Attending Provider Active Start: November 13, 2024 End: November 13, 2024 Team Status: Inactive Member Role Status Dates Dr. Deepika Fabian MD Primary Care Provider Active Start: January 28, 2025 End: January 28, 2025 Dr. Deepika Fabian MD Attending Provider Active Start: January 28, 2025 End: January 28, 2025 Dr. Deepika Fabian MD Referring Provider Active Start: January 28, 2025 End: January 28, 2025 Team Status: Inactive Member Role Status Dates Dr. Deepika Fabian MD Primary Care Provider Active Start: January 28, 2025 End: January 28, 2025 Dr. Deepika Fabian MD Referring Provider Active Start: January 28, 2025 End: January 28, 2025 Emma Pitts PA, PA Attending Provider Active Start: January 28, 2025 End: January 28, 2025 Team Status: Inactive Member Role Status Dates Dr. Deepika Fabian MD Primary Care Provider Active Start: March 31, 2025 End: March 31, 2025 Dr. Deepika Fabian MD Attending Provider Active Start: March 31, 2025 End: March 31, 2025 Dr. Deepika Fabian MD Referring Provider Active Start: March 31, 2025 End: March 31, 2025 Team Status: Active Member Role Status Dates Dr. Deepika Fabian MD Primary Care Provider Active Start: March 31, 2025 Dr. Deepika Fabian MD Attending Provider Active Start: March 31, 2025 Dr. Deepika Fabian MD Referring Provider Active Start: March 31, 2025 Team Status: Active Member Role/Relationship Status Dates Dr. Vamsi Mota MD Family Provider Active Dr. Deepika Fabian MD Primary Care Provider Active Team Status: Inactive Member Role/Relationship Status Dates Dr. Deepika Fabian MD Primary Care Provider Active Start: January 28, 2025 End: January 28, 2025 Dr. Deepika Fabian MD Attending Provider Active Start: January 28, 2025 End: January 28, 2025 Dr. Deepika Fabian MD Referring Provider Active Start: January 28, 2025 End: January 28, 2025 Team Status: Inactive Member Role/Relationship Status Dates Dr. Deepika Fabian MD Primary Care Provider Active Start: January 28, 2025 End: January 28, 2025 Dr. Deepika Fabian MD Attending Provider Active Start: January 28, 2025 End: January 28, 2025 Dr. Deepika Fabian MD Referring Provider Active Start: January 28, 2025 End: January 28, 2025 Team Status: Inactive Member Role/Relationship Status Dates Dr. Deepika Fabian MD Primary Care Provider Active Start: January 28, 2025 End: January 28, 2025 Dr. Depeika Fabian MD Referring Provider Active Start: January 28, 2025 End: January 28, 2025 Emma Pitts PA, PA Attending Provider Active Start: January 28, 2025 End: January 28, 2025 Team Status: Inactive Member Role/Relationship Status Dates Dr. Deepika Fabian MD Primary Care Provider Active Start: March 31, 2025 End: March 31, 2025 Dr. Deepika Fabian MD Attending Provider Active Start: March 31, 2025 End: March 31, 2025 Dr. Deepika Fabian MD Referring Provider Active Start: March 31, 2025 End: March 31, 2025 Team Status: Inactive Member Role/Relationship Status Dates Dr. Deepika Fabian MD Primary Care Provider Active Start: March 31, 2025 End: March 31, 2025 Dr. Deepika Fabian MD Attending Provider Active Start: March 31, 2025 End: March 31, 2025 Dr. Deepika Fabian MD Referring Provider Active Start: March 31, 2025 End: March 31, 2025 Team Status: Active Member Role/Relationship Status Dates Dr. Vamsi Mota MD Primary care physician Active Dr. Deepika Fabian MD Primary care physician Active Team Status: Inactive Member Role/Relationship Status Dates Dr. Deepika Fabian MD Primary care physician Active Start: March 31, 2025 End: March 31, 2025 Dr. Deepika Fabian MD Attending physician Active Start: March 31, 2025 End: March 31, 2025 Dr. Deepika Fabian MD Referring Provider Active Start: March 31, 2025 End: March 31, 2025 Team Status: Inactive Member Role/Relationship Status Dates Dr. Deepika Fabian MD Primary care physician Active Start: March 31, 2025 End: March 31, 2025 Dr. Deepika Fabian MD Attending physician Active Start: March 31, 2025 End: March 31, 2025 Dr. Deepika Fabian MD Referring Provider Active Start: March 31, 2025 End: March 31, 2025 Team Status: Inactive Member Role/Relationship Status Dates Dr. Deepika Fabian MD Primary care physician Active Start: April 07, 2025 Dr. Yana uFlton MD Attending physician Active Start: April 07, 2025 Team Status: Inactive Member Role/Relationship Status Dates Dr. Deepkia Fabian MD Primary care physician Active Start: June 29, 2025 End: June 29, 2025 Dr. Deepika Fabian MD Attending physician Active Start: June 29, 2025 End: June 29, 2025 Dr. Deepika Fabian MD Referring Provider Active Start: June 29, 2025 End: June 29, 2025 Scheduled Active and Recently Administ ered Medications [...] RN) 0831 (Given - Provider: Alanna Sol, RN) aspirin suppository 300 mg(Linked Group 1) 300 mg, Rectal, DAILY, First dose on Robyn 02/16/22 at 0900, Until Discontinued, Use suppository until patient passes swallow test., Recovery to Continue 0835 (See Alternative - Provider: Marta Max, ANIKET) 0831 (See Alternative - Provider: Alanna Sol, [...] Oral, DAILY AT BEDTIME, First dose on Sun02/16/22 at 2100, Until Discontinued 2130 (Given - [...] Marta Max RN)2130 (Given - Provider: Tiffanie Huertas, ANIKET) 0832 (Given - Provider: Alanna Sol, ANIKET)1400 [...] swallowed separately. 0835 (Given - Provider: Marta Max, ANIKET) senna (SENOKOT) tablet 8.6 mg(Linked Group 2) [...] on Robyn 02/16/22 at 0900, Until Discontinued, Hold if BM in last 2 hours., Recovery to Continue 0819 (See Alternative - Provider: Marta Max, ANIKET) 0831 (See Alternative - Provider: Alanna Sol RN) Continuous Medication Order 02/15/2022 02/16/2022 02/17/2022 sodium chloride 0.9% IV solution (CANCELED) Intravenous, at 75 mL/hr, CONTINUOUS, Starting on Sun02/15/22 at 2215, Until Robyn 02/16/22 at 0224 2236 ($$New Bag$$ - Provider: Christian Short RN) 0121 (Rate/Dose Verify - Provider: Kandis Kiran RN)0150 (Paused - Provider: Marta Max RN)0153 (Restarted - Provider: Marta Max RN)0229 (Stopped - Provider: Marta Max RN)0730 (Stopped [...] over 2 minutes. Telemetry required except for HAND MIXER patients on [address] 6 and 7. [...] Until Sun02/15/22 at 2236, Flush, CT Procedure 6 (Given - Provider: Colleen Daniels) Linked Groups Order Group 1: aspirin chewable tablet 81 mgJump to med 81 mg, Oral, DAILY, First dose on Robyn 02/16/22 at 0900, Until Discontinued
May begin use of chewable aspirin when patient passes swallow test.
Recovery to Continue Or aspirin suppository 300 mgJump to med 300 mg, Rectal, DAILY, First dose on Robyn 02/16/22 at 0900, Until Discontinued
Use suppository until [...] section and content) DATE CREATED AUTHOR 03/17/2022 [facility] DATE CREATED AUTHOR AUTHOR'S ORGANIZ ATION 04/06/2023 [facility] DATE CREATED AUTHOR AUTHOR'S ORGANIZ ATION 06/29/2025 [facility] FOR RECORDS PERTAINING TO PATIENTS WHO ARE [...] BE BASED ON THE PRIMARY CLINICAL RECORDS. [employer] provides no warranty or guarantee of the accuracy or completeness of information in this document.
--- NOTE | 2025-07-30 20:25 | PCM.HP.STD ---
HPI - General General Date of Admission: 07/30/25 Date of Service: 07/30/25 Chief Complaint: heavy legs HPI Narrative GIA MERRITT, is a 89-year-old female history of CVA and right MCA distribution, A-fib on Xarelto, hypertension who presented [facility] ED 07/30/2025 due to slurred speech and difficulty walking. Patient was a stroke alert. On arrival temp 97.2, heart rate 84 with a blood pressure 159/58, respiratory rate 19 and pulse ox 99% on room air. CBC largely unremarkable, BMP with BUN of 16 creatinine 0.85 and a glucose of 108, troponin 19. CT brain and CTA head and neck no acute process. Teleneurology did not think she was a lytic candidate due to the recent use of Xarelto and recommended MRI brain/CVA workup. Patient evaluated with daughter at bedside, patient somewhat poor historian but between daughter and patient it seems that she went to the store earlier and was doing fine but when she got back around 345 she felt like her legs were heavy and it was difficult to walk, she meant intermittently was having some difficulty with her speech and reported posterior headache and felt a little bit dizzy and weak. Due to her previous history of stroke they brought her to the ED. Daughter reports speech is still intermittently off, patient feels like both of her legs are still heavy but denies any paresthesias, no upper extremity symptoms, no new facial symptoms, apparently has some residual facial droop from previous stroke. No current headache, no changes in vision. Denies any changes in urination, has had some constipation, eats well and eats balanced, no fevers, abdominal pain, nausea vomiting. Daughter did know earlier today she helped her to the bathroom and she had a couple drops of blood in the toilet they suspect are from hemorrhoids, no heavy bleeding or other bleeding noted in hemoglobin to ED stable [facility] Medical History Diarrhea Cellulitis of mid back region Abrasion of right upper back excluding scapular region Longstanding persistent atrial fibrillation Arthritis involving multiple sites Essential hypertension CVA (cerebral vascular accident) (02/15/22) Anxiety GERD (gastroesophageal reflux disease) HLD (hyperlipidemia) Home Medications Medication Instructions Recorded Last Taken Type fluorometholone 0.1 % eye 1 drp ophthalmic (eye) BID PRN Dry 03/02/22 Unknown History drops,suspension Eyes cyanocobalamin (vitamin B-12) 1,000 mcg PO DAILY vitamin 05/08/23 04/18/24 History 1,000 mcg tablet ferrous sulfate 325 mg (65 mg 325 mg PO QODAY supplement 05/08/23 04/18/24 History iron) tablet (Feosol) handicap placard #1 ea 01/23/24 Unknown Rx cholecalciferol (vitamin D3) 25 2,000 unit PO DAILY vitamin 08/08/24 Unknown History mcg (1,000 unit) tablet rivaroxaban 20 mg tablet (Xarelto) 20 mg PO QPM blood thinner #90 tabs 11/20/24 Unknown Rx carvedilol 3.125 mg tablet (Coreg) 3.125 mg PO BID bp #180 tabs 01/28/25 Unknown Rx cetirizine 5 mg tablet 2.5 mg PO QDAY PRN allergy symptoms 06/29/25 Unknown History losartan 100 mg tablet 100 mg PO DAILY blood pressure #90 06/29/25 Unknown Rx tabs Allergy/AdvReac Type Severity Reaction Status Date / Time clindamycin Allergy Other Verified 07/30/25 17:48 hyoscyamine Allergy Other Verified 07/30/25 17:48 Penicillins Allergy Hives Verified 07/30/25 17:48 Dicppol-POX-RxD Reductase Allergy Pain in Verified 07/30/25 17:48 Inhibitor (Zfjortq-Xqy-Awl joints Reductase Inhibitor) nitrofurantoin (From AdvReac Mild altered Verified 07/30/25 17:48 Macrobid) mental status glucosamine AdvReac Other Verified 07/30/25 17:48 Family History Father Diabetes Hyperlipemia Mother Cancer stomach Brother Parkinson's disease Surgical History Cataract extraction status Social History household members: none current occupational status: retired 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 pets and animals: Yes pets and animals: cat(s) Smoking Status: Never smoker Electronic Cigarette Use: not used alcohol intake: current alcohol intake frequency: holidays/special occasions only substance use type: does not use what type of physical activity do you participate in: other details: gardening do you feel safe at home: Yes ROS ROS Narrative General: Denies fever/chills HENT: Denies headache at present but has slight posterior headache earlier, blood [place] nasal congestion, denies sore throat EYES: Denies changes in vision Resp: Denies cough, denies shortness of breath Cardiac: Denies chest pain GI: Denies abdominal pain, little bit constipated, denies nausea/vomiting : Denies changes in urination Extremity: Denies swelling MSK: Feels like both legs are heavy Neuro: Denies any numbness/tingling Heme: Denies any bleeding or bruising Skin: Denies rashes Psychiatric: No complaints voiced Vital Signs Vital Signs Vital Signs: 07/30/25 17:48 07/30/25 17:50 07/30/25 18:08 Temperature 97.2 F L Temperature Source Temporal Pulse Rate 84 84 Respiratory Rate 19 H 19 H Blood Pressure 159/50 H 159/50 H Blood Pressure Mean 86 86 Pulse Ox 99 99 Oxygen Delivery Method Room Air Room Air Room Air 07/30/25 18:13 07/30/25 18:30 07/30/25 19:00 Temperature Temperature Source Pulse Rate 73 79 76 Respiratory Rate 19 H 20 H 20 H Blood Pressure 169/81 H 144/73 H 152/65 H Blood Pressure Mean 110 96 94 Pulse Ox 97 97 94 Oxygen Delivery Method Room Air Room Air Room Air 07/30/25 19:07 07/30/25 19:30 07/30/25 19:30 Temperature 98.5 F Temperature Source Pulse Rate 76 74 81 Respiratory Rate 18 19 H 17 Blood Pressure 152/65 H 136/76 H 142/79 H Blood Pressure Mean 94 96 100 Pulse Ox 94 97 Oxygen Delivery Method Room Air Weight Weight: 49.2 kg Body Mass Index (BMI) 21.2 Physical Exam Narrative General: Alert, does answer questions but sometimes requires multiple prompts to get answers and sometimes answers Optopics, no apparent distress HEENT: Atraumatic, normocephalic Eyes: Anicteric, normal conjunctiva, extraocular movements intact, pupils equal Neck: Supple Respiratory: Clear to auscultation bilaterally, normal respiratory effort Cardiovascular: Irregularly irregular GI: Soft, nontender, nondistended Extremities: No edema Musculoskeletal: Strength 5 out of 5 in right upper extremity, 5 out of 5 left upper extremity, both lower extremities with drift right greater than left neuro: No overt focal neurological deficits, cranial nerves II through XII intact, had a little bit of difficulty with finger-nose bilaterally or so with right hand then with left Skin: No rashes appreciated Psych: Cooperative Results Lab / Micro Data 07/30/25 15:55 07/30/25 15:55 Labs: Laboratory Results - last 24 hr 07/30/25 15:55: WBC 7.6, RBC 4.44, Hgb 14.1, Hct 42.5, MCV 95.7, MCH 31.8, MCHC 33.2, RDW Std Deviation 42.9, RDW Coeff of Palak 12.2, Plt Count 263, MPV 10.7, Immature Gran % (Auto) 0.100, Neut % (Auto) 59.1, Lymph % (Auto) 25.8, [place] % (Auto) 9.3, Eos % (Auto) 4.5, Baso % (Auto) 1.2 H, Absolute Neuts (auto) 4.5, Absolute Lymphs (auto) 1.95, Nucleated RBC % 0, PT 16.1 H, INR 1.3, APTT 26.6, Sodium 143, Potassium 3.8, Chloride 106, Carbon Dioxide 26.5, Anion Gap 10, BUN 16, Creatinine 0.85, Estim Creat Clear Calc 33.49 L, Est GFR (MDRD) Non-Af 67, BUN/Creatinine Ratio 18.3, Glucose 108 H, Calcium 9.1, Troponin T High Sens 19 H Imaging Radiology Impression Brain CT 07/30/25 17:48 IMPRESSION: No acute intracranial abnormality. Critical results were communicated to Dr. Magana at 6 p.m.. Reading Location: [address] Head/Neck CTA 07/30/25 17:49 IMPRESSION: No hemodynamically significant stenosis in the head and neck. Reading Location: [facility] Assessment & Plan Assessment/Plan (1) Dysarthria: PLAN: Plan # Slurred speech and difficulty ambulating -Admit to tele -CT head w/ no acute process -CTA head and neck no LVO -MRI ordered -NIH q4hr -Xarelto, statin not ordered due to patient having history of myalgias with statins/listed on allergy list -Echo ordered -PT/OT/Speech eval -Teleneuro consult ordered -Hold BP medications to allow for permissive hypertension for 24 hours unless SBP greater than 220 or DBP greater than 120 or until stroke is ruled out - Given patient reports both legs are somewhat heavy and had the intermittent difficulty with her speech will check UA to assess for underlying UTI and will check TSH #Hx R MCA stroke -On xeralto #Paroxysmal Atrial Fibrillation -Rate control: Coreg, will continue this to avoid fluctuations in heart rate will hold losartan as above -Anticoagulation: Patient on Xarelto #Hypertension - Holding home losartan, continuing Coreg for her A-fib, presently normal to slightly hypertensive #DVT ppx: Not indicated, patient chronically on Xarelto Jody Moffett MD Time spent in the patient's overall evaluation,decision-making process, review of diagnostic data, adjustment of management, discussion with other providers, nursing nursing and ancillary staff involved in patient's care documentation, 57 Minutes Charges/Coding Visit Charges Inpatient E&M: 53140 Init Hosp L2
--- OUTSIDE RECORDS SUMMARY | 2025-07-30 20:32 | XMS RPT_ITS | CCD ---
Author Organization [facility] Care Team Providers Care Sample Grinder Name Role Phone Aleksey DUNN, Harris Vallejo Primary Care Provider Vamsi Mota MD Primary Care Provider DEBBIE MARTE Attending Unavailable VIRAJ GARIBAY Referring Unavailable [facility], OTHER Primary Car e Unavailable VIRAJ GARIBAY Admitting Unavailable VIRAJ GARIBAY Attending Unavailable CONSULT, NEUROLOGY Consulting Unavailable CHRISTINA IRWIN Referring Unavailable Dr. Vamsi Mota Primary Care Provider Dr. Vamsi Mota Referring Provider [phone] Dr. Andrae Tomlinson Attending Provider Dr. Deepika Fabian Attending Provider Dr. Deepika Fabian Primary Care Provider Dr. Deepika Fabian Referring Provider Dr. Vamsi Mota Primary Care Provider Dr. Vamsi Mota Referring Provider Harris Mota MD Primary Care Provider Dr. Deepika Fabian Primary Care Provider Dr. Deepika Fabian Attending Provider Dr. Deepika Fabian Referring Provider Dr. Vamsi Mota Referring Provider [phone] Gisselle FUENTES, GINA Balbuena Attending Provider Dr. Andrae Tomlinson Attending Provider Dr. Deepika Fabian Primary Care Provider Dr. Deepika Fabian Attending Provider [phone] Dr. Deepika Fabian Referring Provider [phone] Dr. Deepika Fabian Primary Care Provider Dr. Deepika Fabian Attending Provider [phone] Dr. Deepika Fabian Referring Provider [phone] Bushra CARTON WRAPPER, CARTON WRAPPER-C Allison Attending Provider Unadora ailable Friend, Dr. Muhammad Attending Provider [phone] Dr. Deepika Fabian Primary Care Provider Dr. Deepika Fabian Attending Provider [phone] Dr. Deepika Fabian Referring Provider [phone] Dr. Andrae Tomlinson Attending Provider [phone] Bushra CARTON WRAPPER, CARTON WRAPPER-C Allison Attending Provider Unav ailable Friend, Dr. Muhammad Attending Provider [phone] Reji FUENTES, [place] Ashu Balbuena Attending Provider Dr. Tobi Cedeno Emergency Provider Dr. Himanshu Reynolds Admit Provider Unavailable Dr. [...] Deepika Fabian Attending Provider [phone] Aleksey DUNN, [facility] Primary Care Provider Dr. Deepika Fabian Primary Care Provider Dr. Deepika Fabian Referring Provider [phone] Bushra CARTON WRAPPER, CARTON WRAPPEROmarC Allison Attending Provider Yasminv asif Luna, Dr. Edwards Attending Provider [phone] Friend, Dr. Muhammad Attending Provider [phone] Dr. Deepika Fabian Primary Care Provider Dr. Deepika Fabian Referring Provider [phone] GINA Sosa Attending Provider Dr. Deepika Fabian Attending Provider [phone] Aleksey DUNN, [facility] Primary Care Provider Caren DUNN, Dr. Poe [...] [phone] Caren, Deepika Primary Care Unavailable [place]lake, Deepika Attending Unavailable [place], Deepika Referring Unavailable Emma Pitts Attending Unavailabl e Caren, Deepika Referring Unavailable [place], Deepika Primary Care Unavailable Emma Pitts Attending Unavailabl e Caren, Deepika Referring Unavailable Caren, Deepika Primary Care Unavailable Caren, Deepika Attending Unavailable [place], Deepika Referring Unavailable [place], Deepika Primary Care Unavailable [place], Deepika Attending Unavailable [place], Deepika Referring Unavailable [place], Deepika Primary Care Unavailable [place], Deepika Attending Unavailable [place], Deepika Referring Unavailable Caren, Deepika Primary Care Unavailable [place], Deepika Primary Care Unavailable Caren, Deepika Attending Unavailable [place], Deepika Referring Unavailable Caren, Deepika Primary Care Unavailable Friend, Jb Attending Unavailable Friend, Jb Referring Unavailable Caren, Deepika Primary Care Unavailable Friend, Jb Attending Unavailable Caren, Deepika Referring Unavailable [place], Deepika Primary Care Unavailable Terrell Sosa Attending Unavailable [place], Deepika Referring Unavailable Caren, Deepika Attending Unavailable Caren, Deepika Referring Unavailable Caren, Deepika Primary Care Unavailable Caren, Deepiak Primary Care Unavailable [place], Deepika Attending Unavailable [place], Deepika Referring Unavailable Caren DUNN, Dr. Poe Primary Care Physician Caren DUNN, Dr. Poe Attending Physician [phone] Dr. Deepika Fabian MD Referring Provider Kirstin DUNN, Dr. Millan Attending Physician Allergies Allergy Classification Reported Allergen(s) Allergy Type Date of Onset Reaction(s) Facility (20 sources) Clindamycin Drug Allergy 09-06-20 18 Intolerance, Hypertension [facility] Work Phone: (20 sources) Glucosamine Drug Allergy 10-18-19 10 Intolerance, Other: See Comments, Arthralgia [facility] (20 sources) Hyoscyamine Drug Allergy 11-02-19 21 Swelling [facility] Work Phone: (20 sources) Penicillins; Translations: [Penicillins] Allergy to substance 09-18-20 21 Hives [facility] Work Phone: (19 sources) Rvmsbhv-Zog-Cjm Reductase Inhibitor; Translations: [Niqnfqo-Syo-Xjp Reductase Inhibitor] Allergy to substance 09-18-20 21 Pain in joints [facility] (14 sources) Aloe vera preparation Drug Allergy 02-08-20 17 Other: See Comments [facility] (14 sources) cumin allergenic extract Drug Allergy 09-23-20 20 GI Upset, Abdominal Discomfort [facility] Work Phone: (8 sources) HMG-CoA reductase inhibitor Propensity to adverse reactions to drug 10-18-19 10 Intolerance [facility] (13 sources) Turmeric extract Drug Allergy 09-23-20 20 GI Upset [facility] Work Phone: (14 sources) Venom-Wasp Propensity to adverse reactions to drug 06-02-20 21 Swelling [facility] (1 source) Benzocaine / Triclosan Drug Allergy 02-08-20 17 Fatigue [facility] (1 source) Curcumin Drug Allergy 09-23-20 20 Abdominal Discomfort [facility] (1 source) Hmg-Coa Reductase Inhibitors (Statins) Propensity to adverse reactions to drug 02-16-20 22 Myalgia [facility] (1 source) Hyoscyamine Drug Allergy 11-02-19 21 Swelling [facility] (6 sources) HMG-CoA reductase inhibitor Propensity to adverse reactions to drug 10-18-19 10 Intolerance [facility] (4 sources) Nitrofurantoin Drug Allergy 01-29-20 25 altered mental status [facility] (1 source) Clindamycin Drug Allergy 06-29-20 25 [facility] Repository (1 source) Glucosamine Drug Allergy 06-29-20 25 [facility] Repository (1 source) Hyoscyamine Drug Allergy 06-29-20 25 [facility] Repository (1 source) Nitrofurantoin Drug Allergy 06-29-20 25 [facility] Repository Medications Current Medications Medication Drug Class(es) [...] Comment on above: Take 1 tablet by [facility] twice daily as needed for up to [...] Start: 10-04-2010 take 2 tablets by mo [facility] once daily Methylsulfonylmethane (MSM) 500 mg [...] Start: 4 End: 4 Salicylic Acid (Medicated [place] Removers) 40 % adhesive patch,medicated Discontinued 1 [...] sources) Long-term current use of anticoagulant; Translations: [senior living (current) use of anticoagulants] 07-15-2022 Episodic Other [...] Reference Range Facility Internal Medicine Office Vis [facility] 06-26-2025 Internal Medicine Office Visit [facility] [address] [place] [address] OFFICE VISIT Date of Service: 06/29/25 MR#: [id number] Acct: [id number] Name: DEA MERRITT Rep #: [id number] : 1935 Provider: Dr. 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 COLIN-7 BMS COLIN-7 Feeling nervous, anxious, or [...] COLIN-7 score (more content not included)... Normal [facility] Absolute lymphocyte countOrd ered By: Deepika Fabian on 03-31-2025 Lymphocytes Auto (Unsp spec) [#/Vol] 1.39 10*3/uL 0.83-4.51 [facility] Absolute neutrophil countOrd ered By: Deepika Fabian on 03-31-2025 Neutrophils (Bld) [#/Vol] 2.8 10*3/uL 2.0-7.7 [facility] Anion gap in Serum or Plasma Ordered By: Deepika Fabian on 03-31-2025 Anion gap [Moles/Vol] 11 mmol/L 5-15 [facility] Automated lymphocyte count a s percentage of total leukocytesOrdered By: Deepika Fabian on 03-31-2025 Lymphocytes/100 WBC Auto (Unsp spec) 28.1 % 19-41 [facility] BUN/creatinine ratioOrdered By: Deepika Fabian on 03-31-2025 Urea nitrogen/Creatinine [Mass ratio] 17.1 mg/mg 10-20 [facility] Basophil percentageOrdered B y: Deepika Fabian on 03-31-2025 Basophils/100 WBC (Bld) 1.4 % High 0-1 [facility] Bilirubin, totalOrdered By: Deepika Fabian on 03-31-2025 Bilirubin [Mass/Vol] 0.41 mg/dL 0.00-1.30 [facility] CBC W/Diff, Automatedon 03-09 Absolute Lymph 1.39 X10 3/uL Normal 0.83-4.51 [facility] Comment on above: Performed By: #### L 500.4100, L506.1001, L503.0106, L100.0100, L500.4050 ####[facility] [address] [place], [address] Absolute Neut 2.8 X10 3/uL Normal 2.0-7.7 [facility] Comment on above: Performed By: #### L 500.4100, L506.1001, L503.0106, L100.0100, L500.4050 ####[facility] [address] [place], [address] Basophils/100 WBC (Bld) 1.4 % High 0-1 [facility] Comment on above: Performed By: #### L 500.4100, L506.1001, L503.0106, L100.0100, L500.4050 ####[facility] [address] [place], [address] Eosinophils/100 WBC (Bld) 4.4 % Normal 0-5 [facility] Comment on above: Performed By: #### L 500.4100, L506.1001, L503.0106, L100.0100, L500.4050 ####[facility] [address] [place], [address] Erythrocyte distribution width (RBC) [Ratio] 11.9 % Normal 11.6-14.6 [facility] Comment on above: Performed By: #### L 500.4100, L506.1001, L503.0106, L100.0100, L500.4050 ####[facility] [address] [place], [address] Hematocrit (Bld) [Volume fraction] 42.4 % Normal 37-47 [facility] Comment on above: Performed By: #### L 500.4100, L506.1001, L503.0106, L100.0100, L500.4050 ####[facility] [address] [place], [address] Hemoglobin (Bld) [Mass/Vol] 14.1 g/dL Normal 12.0-15. 0 [facility] Comment on above: Performed By: #### L 500.4100, L506.1001, L503.0106, L100.0100, L500.4050 ####[facility] [address] [place], [address] IG% 0.200 Normal 0.0-0.9 [facility] Comment on above: Result Comment: IG% - Immature Granulocytes (promyelocytes, myelocytes and metamyelocytes) > 1% indicates that a LEFT SHIFT is Present. Performed By: #### L 500.4100, L506.1001, L503.0106, L100.0100, L500.4050 ####[facility] [address] [place], [address] Lymphocytes/100 WBC (Bld) 28.1 % Normal 19-41 [facility] Comment on above: Performed By: #### L 500.4100, L506.1001, L503.0106, L100.0100, L500.4050 ####[facility] [address] [place], [address] MCH (RBC) [Entitic mass] 32.4 pg High 27.0-32.0 [facility] Comment on above: Performed By: #### L 500.4100, L506.1001, L503.0106, L100.0100, L500.4050 ####[facility] [address] [place], [address] MCHC (RBC) [Mass/Vol] 33.3 g/dL Normal 32-36 [facility] Comment on above: Performed By: #### L 500.4100, L506.1001, L503.0106, L100.0100, L500.4050 ####[facility] [address] [place], [address] MCV (RBC) [Entitic vol] 97.5 fL Normal 81-99 [facility] Comment on above: Performed By: #### L 500.4100, L506.1001, L503.0106, L100.0100, L500.4050 ####[facility] [address] [place], [address] Monocytes/100 WBC (Bld) 8.5 % Normal 0-10 [facility] Comment on above: Performed By: #### L 500.4100, L506.1001, L503.0106, L100.0100, L500.4050 ####[facility] [address] [place], [address] Neutrophils/100 WBC (Bld) 57.4 % Normal 47-70 [facility] Comment on above: Performed By: #### L 500.4100, L506.1001, L503.0106, L100.0100, L500.4050 ####[facility] [address] [place], [address] Nucleated RBC (Bld) [#/Vol] 0 10*3/uL Normal 0-5 [facility] Comment on above: Performed By: #### L 500.4100, L506.1001, L503.0106, L100.0100, L500.4050 ####[facility] [address] [place], [address] Platelet mean volume (Bld) [Entitic vol] 11.7 fL Normal 6.2-12.0 [facility] Comment on above: Performed By: #### L 500.4100, L506.1001, L503.0106, L100.0100, L500.4050 ####[facility] [address] [place], [address] Platelets (Bld) [#/Vol] 261 10*3/uL Normal 150-450 [facility] Comment on above: Performed By: #### L 500.4100, L506.1001, L503.0106, L100.0100, L500.4050 ####[facility] [address] [place], [address] RBC (Bld) [#/Vol] 4.35 10*6/uL Normal 4.2-5.4 [facility] Comment on above: Performed By: #### L 500.4100, L506.1001, L503.0106, L100.0100, L500.4050 ####[facility] [address] [place], [address] RDW SD 43.1 fl Normal 35.1-43.9 [facility] Comment on above: Performed By: #### L 500.4100, L506.1001, L503.0106, L100.0100, L500.4050 ####[facility] [address] [place], [address] WBC (Bld) [#/Vol] 5.0 10*3/uL Normal 4.4-11.0 [facility] Comment on above: Performed By: #### L 500.4100, L506.1001, L503.0106, L100.0100, L500.4050 ####[facility] [address] [place], [address] Calculated very low density lipoprotein (VLDL) cholesterol measurementOrdered By: Deepika Fabian on 03-31-2025 Calculated very low density lipoprotein (VLDL) cholesterol measurement 25 mg/dL 5-40 [facility] Carbon dioxide, total [Moles /volume] in Central venous bloodOrdered By: Deepika Fabian on 03-31-2025 CO2 [Moles/Vol] 26.6 mmol/L 21.0-32.0 [facility] Chloride assayOrdered By: Franco Fabian on 03-31-2025 Chloride [Moles/Vol] 104 mmol/L 98-108 [facility] Comprehensive Metabolic Prof ilon 03-31-2025 Albumin [Mass/Vol] 4.0 g/dL Normal 3.4-4.8 [facility] Comment on above: Performed By: #### L 500.4100, L506.1001, L503.0106, L100.0100, L500.4050 ####[facility] [address] [place], [address] Albumin/Globulin [Mass ratio] 1.4 {ratio} Normal 0.9-2.4 [facility] Comment on above: Performed By: #### L 500.4100, L506.1001, L503.0106, L100.0100, L500.4050 ####[facility] [address] [place], [address] ALK PHOS 80 U/L Normal 35-104 [facility] Comment on above: Performed By: #### L 500.4100, L506.1001, L503.0106, L100.0100, L500.4050 ####[facility] [address] [place], [address] ALT [Catalytic activity/Vol] 20 U/L Normal <=34 [facility] Comment on above: Performed By: #### L 500.4100, L506.1001, L503.0106, L100.0100, L500.4050 ####[facility] [address] [place], [address] AST [Catalytic activity/Vol] 24 U/L Normal <=31 [facility] Comment on above: Performed By: #### L 500.4100, L506.1001, L503.0106, L100.0100, L500.4050 ####[facility] [address] [place], [address] Bilirubin [Mass/Vol] 0.41 mg/dL Normal 0.00-1.30 [facility] Comment on above: Performed By: #### L 500.4100, L506.1001, L503.0106, L100.0100, L500.4050 ####[facility] [address] [place], [address] BUN/CRE 17.1 RATIO Normal 10-20 [facility] Comment on above: Performed By: #### L 500.4100, L506.1001, L503.0106, L100.0100, L500.4050 ####[facility] [address] [place], [address] Calcium [Mass/Vol] 9.4 mg/dL Normal 7.6-11.0 [facility] Comment on above: Performed By: #### L 500.4100, L506.1001, L503.0106, L100.0100, L500.4050 ####[facility] [address] [place], [address] Chloride [Moles/Vol] 104 mmol/L Normal 98-108 [facility] Comment on above: Performed By: #### L 500.4100, L506.1001, L503.0106, L100.0100, L500.4050 ####[facility] [address] [place], [address] CO2 [Moles/Vol] 26.6 mmol/L Normal 21.0-32.0 [facility] Comment on above: Performed By: #### L 500.4100, L506.1001, L503.0106, L100.0100, L500.4050 ####[facility] [address] [place], [address] Creatinine [Mass/Vol] 0.71 mg/dL Normal 0.70-1.20 [facility] Comment on above: Performed By: #### L 500.4100, L506.1001, L503.0106, L100.0100, L500.4050 ####[facility] [address] [place], [address] GAP 11 Normal 5-15 [facility] Comment on above: Performed By: #### L 500.4100, L506.1001, L503.0106, L100.0100, L500.4050 ####[facility] [address] [place], [address] GFR/1.73 sq M.predicted among non-blacks MDRD (S/P/Bld) [Vol rate/Area] 83 mL/min/{1.73_m2} Normal >60 [facility] Comment on above: Result Comment: mL/m in/1.73m2 CKD-EPI Creatinine Equation (2020) Performed By: #### L 500.4100, L506.1001, L503.0106, L100.0100, L500.4050 ####[facility] [address] [place], [address] Globulin (S) [Mass/Vol] 2.8 g/dL Normal 2.2-4.2 [facility] Comment on above: Performed By: #### L 500.4100, L506.1001, L503.0106, L100.0100, L500.4050 ####[facility] [address] [place], [address] Glucose [Mass/Vol] 89 mg/dL Normal 70-99 [facility] Comment on above: Performed By: #### L 500.4100, L506.1001, L503.0106, L100.0100, L500.4050 ####[facility] [address] [place], [address] Potassium [Moles/Vol] 4.2 mmol/L Normal 3.3-5.1 [facility] Comment on above: Performed By: #### L 500.4100, L506.1001, L503.0106, L100.0100, L500.4050 ####[facility] [address] [place], [address] Sodium [Moles/Vol] 141 mmol/L Normal 133-145 [facility] Comment on above: Performed By: #### L 500.4100, L506.1001, L503.0106, L100.0100, L500.4050 ####[facility] [address] [place], [address] T PROT 6.8 g/dL Normal 5.9-8.4 [facility] Comment on above: Performed By: #### L 500.4100, L506.1001, L503.0106, L100.0100, L500.4050 ####[facility] [address] [place], [address] Urea nitrogen [Mass/Vol] 12 mg/dL Normal 4-19 [facility] Comment on above: Performed By: #### L 500.4100, L506.1001, L503.0106, L100.0100, L500.4050 ####[facility] [address] [place], [address] Eosinophil percentageOrdered By: Deepika Fabian on 03-31-2025 Eosinophils/100 WBC (Bld) 4.4 % 0-5 [facility] Erythrocyte distribution wid th ratioOrdered By: Deepika Fabian on 03-31-2025 Erythrocyte distribution width (RBC) [Ratio] 11.9 % 11.6-14.6 [facility] Erythrocyte distribution wid th standard deviationOrdered By: Deepika Fabian on 03-31-2025 Erythrocyte distribution width (RBC) [Ratio] 43.1 fl 35.1-43.9 [facility] Glomerular filtration rate ( GFR) estimation/1.73 sq m using serum, plasma, or whole bOrdered By: Deepika Fabian on 03-31-2025 GFR/1.73 sq M.predicted among non-blacks MDRD (S/P/Bld) [Vol rate/Area] 83 mL/min/{1.73_m2} >60 [facility] Comment on above: mL/min/1.73m2 CKD-EP I Creatinine Equation (2020) Hematocrit Auto (Bld) [Volum e fraction]Ordered By: Deepika Fabian on 03-31-2025 Hematocrit (Bld) [Volume fraction] 42.4 % 37-47 [facility] Hemoglobin measurementOrdere d By: Deepika Fabian on 03-31-2025 Hemoglobin (Bld) [Mass/Vol] 14.1 g/dL 12.0-15. 0 [facility] Immature granulocytes/100 WB C Auto (Bld)Ordered By: Deepika Fabian on 03-31-2025 Immature granulocytes/100 WBC (Bld) 0.200 % 0.0-0.9 [facility] Comment on above: IG% - Immature Granu locytes (promyelocytes, myelocytes and metamyelocytes) > 1% indicates that a LEFT SHIFT is Present. LDL calc ser/plasOrdered By: Deepika Fabian on 03-31-2025 Cholesterol in LDL [Mass/Vol] 217 mg/dL [facility] Comment on above: Asgwygokwi=122-251 m g/dL & Higher Qkxx=680 mg/dL or greater Laboratory - Chemistry and C hemistry - challengeOrdered By: Deepika Fabian on 03-31-2025 AST [Catalytic activity/Vol] 24 U/L <32 [facility] Lipid Profileon 03-31-2025 CHOL:HDL 4.59 Normal [facility] Comment on above: Performed By: #### L 500.4100, L506.1001, L503.0106, L100.0100, L500.4050 ####[facility] [address] [place], [place], [id number] Cholesterol [Mass/Vol] 310 mg/dL High <=200 [facility] Comment on above: Result Comment: Chol esterol level, Desirable <200 mg/dL Borderline high cholesterol 200-239 mg/dL High cholesterol >=240 mg/dL Recommendations of the NCEP Adult Treatment Panel for the following risk-cutoff thresholds for the [place] population. Performed By: #### L 500.4100, L506.1001, L503.0106, L100.0100, L500.4050 ####[facility] [address] [place], [place] [address] Cholesterol in HDL [Mass/Vol] 68 mg/dL Normal [facility] Comment on above: Result Comment: Mikala onal Cholesterol Education Program (NCEP) guidelines: <40 mg/dL: Low HDL-cholesterol (major risk factor for CHD) >= 60 mg/dL: High HDL-cholesterol (negative risk factor for CHD) HDL-cholesterol is affected by a number of factors, e.g. smoking, exercise, hormones, sex and age. Performed By: #### L 500.4100, L506.1001, L503.0106, L100.0100, L500.4050 ####[facility] [address] [place], [address] Cholesterol in LDL [Mass/Vol] 217 mg/dL Normal [facility] Comment on above: Result Comment: Bord wqoqkb=132-840 mg/dL Higher Brom=743 mg/dL or greater Performed By: #### L 500.4100, L506.1001, L503.0106, L100.0100, L500.4050 ####[facility] [address] [place], [address] Cholesterol in VLDL [Mass/Vol] 25 mg/dL Normal 5-40 [facility] Comment on above: Performed By: #### L 500.4100, L506.1001, L503.0106, L100.0100, L500.4050 ####[facility] [address] [place], [address] Triglyceride [Mass/Vol] 126 mg/dL Normal [facility] Comment on above: Result Comment: The drugs N-Acetylcysteine and Metamizole may falsely depress this assay. Normal range: <150 mg/dL Borderline High: 150-199 mg/dL High: 200-499 mg/dL Very High: >500 mg/dL Performed By: #### L 500.4100, L506.1001, L503.0106, L100.0100, L500.4050 ####[facility] [address] [place], [address] MCV (mean corpuscular volume ) determinationOrdered By: Deepika Fabian on 03-31-2025 MCV (RBC) [Entitic vol] 97.5 fL 81-99 [facility] Mean corpuscular hemoglobin (MCH) determinationOrdered By: Deepika Fabian on 03-31-2025 MCH (RBC) [Entitic mass] 32.4 pg High 27.0-32.0 [facility] Mean corpuscular hemoglobin concentration (MCHC) determinationOrdered By: Deepika Fabian on 03-31-2025 MCHC (RBC) [Mass/Vol] 33.3 g/dL 32-36 [facility] Mean platelet volume determi nationOrdered By: Deepika Fabian on 03-31-2025 Platelet mean volume (Bld) [Entitic vol] 11.7 fL 6.2-12.0 [facility] Monocyte percentageOrdered B y: Deepika Fabian on 03-31-2025 Monocytes/100 WBC (Bld) 8.5 % 0-10 [facility] Neutrophil percentageOrdered By: Deepika Fabian on 03-31-2025 Neutrophils/100 WBC (Bld) 57.4 % 47-70 [facility] Nucleated red blood cell per centageOrdered By: Deepika Fabian on 03-31-2025 Nucleated RBC/100 WBC (Bld) [Ratio] 0 % 0-5 [facility] Platelet countOrdered By: Franco Fabian on 03-31-2025 Platelets (Bld) [#/Vol] 261 10*3/uL 150-450 [facility] Potassium measurement (mass/ volume)Ordered By: Deepika Fabian on 03-31-2025 Potassium (Unsp spec) [Mass/Vol] 4.2 mmol/L 3.3-5.1 [facility] RBC Auto (Bld) [#/Vol]Ordere d By: Deepika Fabian on 03-31-2025 RBC (Bld) [#/Vol] 4.35 10*6/uL 4.2-5.4 [facility] total cholesterol/ high density lipoprotein (HDL) cholesterol ratioOrdered By: Deepika Fabian on 03-31-2025 Cholesterol.total/Cholester ol in HDL [Mass ratio] 4.59 {ratio} [facility] Serum creatinine measurement (mass/volume)Ordered By: Deepika Fabian on 03-31-2025 Creatinine [Mass/Vol] 0.71 mg/dL 0.70-1.20 [facility] Serum globulin measurementOr dered By: Deepika Fabian on 03-31-2025 Globulin (S) [Mass/Vol] 2.8 g/dL 2.2-4.2 [facility] Serum glucose measurement (m ass/volume)Ordered By: Deepika Fabian on 03-31-2025 Glucose [Mass/Vol] 89 mg/dL 70-99 [facility] Serum or plasma alanine hernandez otransferase (ALT) measurementOrdered By: Deepika Fabian on 03-31-2025 ALT [Catalytic activity/Vol] 20 U/L <35 [facility] Serum or plasma albumin alissa urement (mass/volume)Ordered By: Deepika Fabian on 03-31-2025 Albumin [Mass/Vol] 4.0 g/dL 3.4-4.8 [facility] Serum or plasma albumin/glob ulin mass ratioOrdered By: Deepika Fabian on 03-31-2025 Albumin/Globulin [Mass ratio] 1.4 {ratio} 0.9-2.4 [facility] Serum or plasma alkaline waleska sphatase measurementOrdered By: Deepika Fabian on 03-31-2025 ALP [Catalytic activity/Vol] 80 U/L 35-104 [facility] Serum or plasma calcium alissa urement (mass/volume)Ordered By: Deepika Fabian on 03-31-2025 Calcium [Mass/Vol] 9.4 mg/dL 7.6-11.0 [facility] Serum or plasma cholesterol in HDL measurement (mass/volume)Ordered By: Deepika Fabian on 03-31-2025 Cholesterol in HDL [Mass/Vol] 68 mg/dL >40 [facility] Comment on above: National Cholesterol Education Program (NCEP) guidelines:<40 mg/dL: Low HDL-cholesterol (major risk factor for CHD)>= 60 mg/dL: High HDL-cholesterol (negative risk factor for CHD)HDL-cholesterol is affected by a number of factors, e.g. smoking, exercise, hormones, sex and age. Serum or plasma cholesterol measurement (mass/volume)Ordered By: Deepika Fabian on 03-31-2025 Cholesterol [Mass/Vol] 310 mg/dL High <201 [facility] Comment on above: Cholesterol level, D esirable <200 mg/dLBorderline high cholesterol 200-239 mg/dLHigh cholesterol >=240 mg/dLRecommendations of the NCEP Adult Treatment Panel for the following risk-cutoff thresholds for the [place] population. Serum or plasma urea nitroge n measurement (mass/volume)Ordered By: Deepika Fabian on 03-31-2025 Urea nitrogen [Mass/Vol] 12 mg/dL 4-19 [facility] Sodium levelOrdered By: Wayne Fabian on 03-31-2025 Sodium [Moles/Vol] 141 mmol/L 133-145 [facility] Total proteinOrdered By: Ray Fabian on 03-31-2025 Protein [Mass/Vol] 6.8 g/dL 5.9-8.4 [facility] Triglycerides measurementOrd ered By: Deepika Fabian on 03-31-2025 Triglyceride [Mass/Vol] 126 mg/dL <199 [facility] Comment on above: The drugs N-Acetylcy steine and Metamizole may falsely depress this assay. Normal range: <150 mg/dLBorderline High: 150-199 mg/dLHigh: 200-499 mg/dLVery High: >500 mg/dL Vitamin B12on 03-31-2025 Cobalamin (Vitamin B12) [Mass/Vol] 1784 pg/mL High 180-914 [facility] Comment on above: Performed By: #### L 500.4100, L506.1001, L503.0106, L100.0100, L500.4050 ####[facility] [address] [place], [place], [address] Vitamin B12 ser/plasOrdered By: Deepika Fabian on 03-31-2025 Cobalamin (Vitamin B12) [Mass/Vol] 1784 pg/mL High 180-914 [facility] Vitamin D,25 Hydroxyon 03-31 Vitamin D 25-OH 34.7 ng/mL Normal 30-100 [facility] Comment on above: Result Comment: Kasandra min D Status Deficiency: <20 ng/mL (50nmol/L) Insufficiency: 20-30 ng/mL (50-75 nmol/L) Sufficiency: 30-100 ng/mL (75-250 nmol/L) Toxicity: >100 ng/mL (>250 nmol/L) Performed By: #### L 500.4100, L506.1001, L503.0106, L100.0100, L500.4050 ####[facility] [address] [place], [address] White blood cell (WBC) count Ordered By: Deepika Fabian on 03-31-2025 WBC (Bld) [#/Vol] 5.0 10*3/uL 4.4-11.0 [facility] Internal Medicine Office Vis iton 03-30-2025 Internal Medicine Office Visit [facility] [address] [place] [address] [address] [place], [place] [address] OFFICE VISIT Date of Service: 03/31/25 MR#: [id number] Acct: [id number] Name: DEA MERRITT Rep #: [id number] : 1935 Provider: Dr. Deepika goff MD Age/Sex: 89/F Location: [facility] Status: Signed Intake Vital Signs 11/13/24 [...] M FU Chief Complaint: [address] Deputy Clerk Required: No Accompanied by: Self Is patient in pain?: No Allergies clindamycin Allergy (Verified 03/31/25 08:10) Other hyoscyamine Allergy (Verified 03/31/25 08:10) Other Penicillins Allergy (Verified 03/31/25 08:10) Hives Bjfcyah-AWN-UvV Reductase Inhibitor (Ztztcmf-Lru-Dpb Reductase Inhibitor) Allergy (Verified 03/31/25 08:10) Pain [...] stomach but not severe typically post eating [facility] Medical History Cellulitis of mid back [...] none current occupational status: 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 COLIN-7 BMS COLIN-7 Feeling nervous, anxious, or on edge: 0 = Not at all Not bein (more content not included)... Normal [facility] Urine Cultureon 02-01-2025 URC Mixed Gram Pos Gram Neg Org [place] Count 11,000-25,000 MIXC Mixed contaminants. Submit a new specimen if indicated. Normal [facility] Comment on above: Performed By: #### M 100.2200, L400.0001 #### [facility] Laboratory [address] [place], [address] Urinalysis, Completeon 01-29 EPI,SQUAMOUS 0-5 SEEN Normal 5-10 [facility] Comment on above: Order Comment: CLEAN CATCH Performed By: #### M 100.2200, L400.0001 #### [facility] [address] [place], [place], [address] Bilirubin Test strip Ql (U)O rdered By: Deepika Fabian on 01-28-2025 Bilirubin Ql (U) Negative Negative [facility] Cardiology Visit Reporton Cardiology Visit Report [facility] [address] [place], [place] [address] OFFICE VISIT Date of Service: 01/28/25 MR#: [id number] Acct: [id number] Name: DEA MERRITT Rep #: [id number] : 1935 Provider: GINA Guevara Age/Sex: 89/F Location: [facility] Status: Signed HPI HPI History of Present Illness Details: Dea Merritt is an 89-year-old lady with a history of hypertension hyperlipidemia intolerant of any statins and gastroesophageal reflux disease. She presented to [facility] with left facial droop and confusion on February 15, 2022. She apparently attended mu-ism and then drove home around 1 PM and was driving erratically. Her neighbors drove her home and then she was brought to the emergency room. CT scan of the brain was negative for acute changes she was sent to [facility] with CT angiogram of the head and [...] air Intake Visit Reasons: Dizziness/More Frequent Urination Justice Court Deputy Clerk Required: No Is patient in pain?: No Allergies clindamycin Allergy (Verified 01/28/25 13:57) Other hyoscyamine Allergy (Verified 01/28/25 13:57) Other Penicillins Allergy (Verified 01/28/25 13:57) Hives Zuhkpef-ZDX-SaW Reductase Inhibitor (Zebhbof-Bdd-Qms Reductase Inhibitor) Allergy (Verified 01/28/25 13:57) Pain [...] dr. 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 Normal [facility] Epithelial cells.squamous LM Ql (Urine sed)Ordered By: Deepika Fabian on 01-28-2025 Epithelial cells.squamous LM.HPF (Urine sed) [#/Area] 0 /[HPF] 5-10 [facility] Glucose Ql (U)Ordered By: Franco Fabian on 01-28-2025 Urine Glucose (UA) Normal mg/dl Normal [facility] Ketones Test strip Ql (U)Ord ered By: Deepika Fabian on 01-28-2025 Ketones Ql (U) Negative Negative [facility] Microscopic analysis of urin e for red blood cells (RBC)Ordered By: Deepika Fabian on 01-28-2025 Microscopic analysis of urine for red blood cells (RBC) 0 SEEN /hpf 0-5 [facility] Urine RBC 0 SEEN /hpf 0-5 [facility] Mucus LM Ql (Urine sed)Order ed By: Deepika Fabian on 01-28-2025 Mucus Ql (Urine sed) 0 SEEN /hpf [facility] Nitrite Test strip Ql (U)Ord ered By: Deepika Fabian on 01-28-2025 Nitrite Ql (U) Negative Negative [facility] Protein Test strip Ql (U)Ord ered By: Deepika Fabian on 01-28-2025 Protein Ql (U) Negative Negative [facility] Squamous epithelial cells de tection in urine sediment by light microscopyOrdered By: Deepika Fabian on 01-28-2025 Epithelial cells.squamous LM Ql (Urine sed) 0-5 SEEN /hpf 5-10 [facility] Urinalysis, Completeon 01-28 BACTERIA 0 SEEN Normal None Seen [facility] Comment on above: Order Comment: CLEAN CATCH Performed By: #### M 100.2200, L400.0001 #### [facility] [address] [place], [address] Mucus Ql (Urine sed) 0 SEEN Normal [facility] Comment on above: Order Comment: CLEAN CATCH Performed By: #### M 100.2200, L400.0001 #### [facility] [address] [place], [address] RBC 0 SEEN Normal 0-5 [facility] Comment on above: Order Comment: CLEAN CATCH Performed By: #### M 100.2200, L400.0001 #### [facility] [address] [place], [address] WBC 0 SEEN Normal 0-5 [facility] Comment on above: Order Comment: CLEAN CATCH Performed By: #### M 100.2200, L400.0001 #### [facility] [address] [place], [address] Urine blood detectionOrdered By: Deepika Fabian on 01-28-2025 Urine Occult Blood Negative Negative [facility] Urine clarityOrdered By: Ray Fabian on 01-28-2025 Clarity (U) Clear Clear [facility] Urine color determinationOrd ered By: Deepika Fabian on 01-28-2025 Color (U) Yellow Yellow [facility] Urine cultureOrdered By: Ray Fabian on 01-28-2025 Bacteria identified Cx Nom (U) Mixed Gram Pos & Gram Neg Org Abnormal [facility] Urine glucose detectionOrder ed By: Deepika Fabian on 01-28-2025 Glucose Ql (U) Normal mg/dl Normal [facility] Urine leukocyte esterase det ection by dipstickOrdered By: Deepika Fabian on 01-28-2025 Leukocyte esterase Test strip Ql (U) Negative Negative [facility] Urine pHOrdered By: Deepika morrow on 01-28-2025 pH (U) 8.0 [pH] 5.0 - 8.0 [facility] Urine sediment bacteria coun t by microscopy (number/high power field)Ordered By: Deepika Fabian on 01-28-2025 Bacteria LM.HPF (Urine sed) [#/Area] 0 /[HPF] None Seen [facility] Urine specific gravity measu rementOrdered By: Deepika Fabian on 01-28-2025 Specific gravity (U) [Rel density] 1.010 1.002-1.03 0 [facility] Urine urobilinogen measureme ntOrdered By: Deepika Fabian on 01-28-2025 Urobilinogen Ql (U) Normal mg/dl Normal [facility] Urobilinogen Ql (U)Ordered B y: Deepikamargi Fabian on 01-28-2025 Urine Urobilinogen Normal mg/dl Normal [facility] White blood cell countOrdere d By: Deepika Fabian on 01-28-2025 Urine WBC 0 SEEN /hpf 0-5 [facility] White blood cell count 0 SEEN /hpf 0-5 [facility] Internal Medicine Office Vis iton 01-27-2025 Internal Medicine Office Visit [facility] [address] [place] [address] OFFICE VISIT Date of Service: 01/28/25 MR#: [id number] Acct: [id number] Name: DEA MERRITT Rep #: [id number] : 1935 Provider: Dr. Deepika goff MD Age/Sex: 89/F Location: [facility] Status: Signed Intake Vital Signs 11/13/24 15:20 01/28/25 07:43 01/28/25 10:12 Height 5 ft 5 ft 5 ft Weight: 107 lb BMI 20.9 BP 120/80 Blood Pressure Location Lt brachial Position Sitting Respiration 16 Pulse 66 Pulse Source Monitor Temp 97.9 F Temp Source Temporal Pulse Oximetry (%) 97 Oxygen Delivery Method room air Intake Visit Reasons: FREQUENT URINATION/DIZZINESS Chief Complaint: Justice Court Deputy Clerk Required: No Accompanied by: Daughter Allergies clindamycin Allergy (Verified 01/28/25 09:59) Other hyoscyamine Allergy (Verified 01/28/25 09:59) Other Penicillins Allergy (Verified 01/28/25 09:59) Hives Xgqevyh-PEG-OmD Reductase Inhibitor (Zqatncd-Yyk-Gxj Reductase Inhibitor) Allergy (Verified 01/28/25 09:59) Pain [...] sure it is okay to restart it. 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 Normal [facility] Cardiology Visit Reporton Cardiology Visit Report [facility] [address] [place] [address] OFFICE VISIT Date of Service: 11/13/24 MR#: [id number] Acct: [id number] Name: DEA MERRITT Rep #: [id number] : 1935 Provider: GINA Guevara Age/Sex: 89/F Location: [facility] Status: Signed HPI HPI History of Present Illness Details: Dea Merritt is an 89-year-old lady with a history of hypertension hyperlipidemia intolerant of any statins and gastroesophageal reflux disease. She presented to [facility] with left facial droop and confusion on February 15, 2022. She apparently attended mu-ism and then drove home around 1 PM and was driving erratically. Her neighbors drove her home and then she was brought to the emergency room. CT scan of the brain was negative for acute changes she was sent to [facility] with CT angiogram of the head and [...] 95 Intake Visit Reasons: [address] Deputy Clerk Required: No Is patient in pain?: No Allergies clindamycin Allergy (Verified 11/13/24 15:18) Other hyoscyamine Allergy (Verified 11/13/24 15:18) Other Penicillins Allergy (Verified 11/13/24 15:18) Hives Akvrsqp-ABH-TxO Reductase Inhibitor (Hesxihx-Eyb-Bxc Reductase Inhibitor) Allergy (Verified 11/13/24 15:18) Pain [...] Note: no medication list, states no changes [facility] Medical History Cellulitis of mid back [...] none 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 Normal [facility] Internal Medicine Office Vis iton 11-12-2024 Internal Medicine Office Visit [facility] [address] [place] [address] [place] [address] OFFICE VISIT Date of Service: 11/13/24 MR#: [id number] Acct: [id number] Name: DEA MERRITT Rep #: [id number] : 1935 Provider: Dr. Deepika goff MD Age/Sex: 89/F Location: [facility] Status: Signed Intake Vital Signs 08/05/24 10:26 11/13/24 09:58 Height 5 ft 5 ft Weight: 111 lb BMI 21.7 BP 104/58 L Blood Pressure Location Rt brachial Position Sitting Respiration 16 Pulse 60 Pulse Source Palpation Temp 96.3 F L Temp Source Temporal Intake Visit Reasons: 4 M FU Chief Complaint: [address] Deputy Clerk Required: No Accompanied by: Self Is patient in pain?: No Allergies clindamycin Allergy (Verified 11/13/24 09:51) Other hyoscyamine Allergy (Verified 11/13/24 09:51) Other Penicillins Allergy (Verified 11/13/24 09:51) Hives Mawnvoo-PKM-XpA Reductase Inhibitor (Ptebunn-Lql-Svy Reductase Inhibitor) Allergy (Verified 11/13/24 09:51) Pain [...] Nurse's Note: working with chiropractor on excercises [facility] Medical History Cellulitis of mid back [...] none 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 Normal [facility] Abdomen/Pelvis WITH Contrast on 08-05-2024 Abdomen/Pelvis WITH Contrast [facility] [address] [place] [address] Abdomen/Pelvis WITH Contrast MR#: [id number] Acct: [id number] Name: DEA MERRITT Rep #: [id number] : 1935 F 88 From: Waylon tate MD PCP: Dr. Deepika Fabian MD Status: REG CLI Study: Abdomen/Pelvis WITH Contrast Date of Exam: Exam# [id number] Ordering Dr: Jb Wood DO [id number] STUDY: CT ABDOMEN AND PELVIS WITH CONTRAST [...] CC: Dr. Deepika Fabian MD; Jb Wood, Home Teaching Gr[employer] 7 [employer] 8 Teacher: Signed Normal [facility] CREATININE FINGERSTICKon CREATININE WB < 1.0 Normal 0.55-1.02 [facility] Comment on above: Performed By: #### L 9100.0200 #### [facility] Laboratory [address] [place], [address] EGFR WB > 60.0000 Normal >60 [facility] Comment on above: Performed By: #### L 9100.0200 #### [facility] [address] [place], [address] Ferritinon 08-05-2024 Ferritin [Mass/Vol] 71 ng/mL Normal 8-252 [facility] Comment on above: Performed By: #### L 503.6550, L503.6030, L506.1000, L503.0105 ####[facility] [address] [place], [address] Iron+Iron Binding Capacityon 08-05-2024 Iron [Mass/Vol] 79 ug/dL Normal 50-170 [facility] Comment on above: Performed By: #### L 503.6550, L503.6030, L506.1000, L503.0105 ####[facility] [address] [place], [address] IRON SATURATION 27.7 Normal 15.0-55.0 [facility] Comment on above: Performed By: #### L 503.6550, L503.6030, L506.1000, L503.0105 ####[facility] [address] [place], [address] TIBC 285 ug/dL Normal 250-450 [facility] Comment on above: Performed By: #### L 503.6550, L503.6030, L506.1000, L503.0105 ####[facility] [address] [place], [address] Vitamin B12on 08-05-2024 Cobalamin (Vitamin B12) [Mass/Vol] 567 pg/mL Normal 211-911 [facility] Comment on above: Performed By: #### M 100.2200, L400.0001 #### [facility] [address] [place], [address] Vitamin D,25 Hydroxyon 08-05 Vitamin D 25-OH 20.4 ng/mL Normal [facility] Comment on above: Result Comment: Kasandra min D 25(OH) Status Range Deficiency <20 ng/mL (50nmol/L) Insufficiency 20 - 30 ng/mL (50 - 75 nmol/L) Sufficiency 30 - 100 ng/mL (75 - 250 nmol/L) Toxicity >100 ng/mL (>250 nmol/L) Performed By: #### M 100.2200, L400.0001 #### [facility] [address] [place], [address] Internal Medicine Office Vis linda 08-04-2024 Internal Medicine Office Visit [facility] [address] [place] [address] [place] [address] OFFICE VISIT Date of Service: 08/05/24 MR#: [id number] Acct: [id number] Name: DEA MERRITT Rep #: [id number] : 1935 Provider: Dr. 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 She saw the electrical instrument repairer in November who did not have further recommendations at the time. She denies any palpitations, chest pain or shortness of breath. She recently followed up with GI for her bowel problems. She is currently off the budesonide and had a repeat CT this morning for further assessment. (more content not included)... Normal [facility] Gastroenterology Visit Repor ton 07-28-2024 Gastroenterology Visit Report [facility] Gastroenterology [address] [place] [address] OFFICE VISIT Date of Service: 07/28/24 MR#: [id number] Acct: [id number] Name: DEA MERRITT Rep #: [id number] : 1935 Provider: Jb Wood DO Age/Sex: 88/F Location: [facility] 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 [facility] ED 11.01.22 with hypokalemia as noted by PCP workup. IV and PO potassium administered. Discharged with PO potassium supplement. Biochemical CBC. CMP potassium *L2.7, magnesium 2.33. [facility] ED .12.28 with ongoing diarrhea. Prednisone [...] times a (more content not included)... Normal [facility] Urgent Care Visit Reporton 1 Urgent Care Visit Report [facility] [address], [address] [place] [address] OFFICE VISIT Date of Service: 07/10/24 MR#: [id number] Acct: [id number] Name: DEA MERRITT Rep #: [id number] : 1935 Provider: GINA Taylor Age/Sex: 88/F Location: [facility] [place] Status: Signed Intake Vital Signs 04/22/24 [...] ON LEFT LEG Chief Complaint: LLE wound [address] Deputy Clerk Required: No Is patient in pain?: No Allergies clindamycin Allergy (Verified 07/10/24 12:52) Other hyoscyamine Allergy (Verified 07/10/24 12:52) Other Penicillins Allergy (Verified 07/10/24 12:52) Hives Hssikgx-DWL-TtI Reductase Inhibitor (Uegorum-Hve-Sty Reductase Inhibitor) Allergy (Verified 07/10/24 12:52) Pain [...] no active bleeding noted, pt on Xarelto. 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 Normal [facility] Absolute lymphocyte countOrd ered By: Jin Gibson on 09-29-2023 Lymphocytes Auto (Unsp spec) [#/Vol] 2.63 10*3/uL 0.83-4.51 [facility] Basophil percentageOrdered B y: Jin Gibson on 09-29-2023 Basophils/100 WBC (Bld) 1.2 % 0-1 [facility] Chloride [Moles/Vol] 106 mmol/L 98-107 [facility] Eosinophils/100 WBC (Bld) 4.8 % 0-5 [facility] Glucose [Mass/Vol] 105 mg/dL 74-106 [facility] Comment on above: Fasting Glucose resu lt from 100 to 125 mg/dL suggests IMPAIRED HOMEOSTASIS per A.D.A. criteria. Neutrophils (Bld) [#/Vol] 5.7 10*3/uL 2.0-7.7 [facility] Neutrophils/100 WBC (Bld) 58.7 % 47-70 [facility] Potassium [Moles/Vol] 4.0 mmol/L 3.5-5.1 [facility] Sodium [Moles/Vol] 140 mmol/L 136-145 [facility] WBC (Bld) [#/Vol] 9.7 10*3/uL 4.4-11.0 [facility] Blood erythrocytes count (nu mber/volume)Ordered By: Jin Gibson on 09-29-2023 RBC (Bld) [#/Vol] 4.34 10*6/uL 4.2-5.4 [facility] Blood hemoglobin measurement (mass/volume)Ordered By: Jin Gibson on 09-29-2023 Hemoglobin (Bld) [Mass/Vol] 13.6 g/dL 12.0-15. 0 [facility] Blood lymphocytes/100 leukoc ytesOrdered By: Jin Gibson on 09-29-2023 Lymphocytes/100 WBC (Bld) 27.2 % 19-41 [facility] Blood monocytes/100 leukocyt esOrdered By: Jin Gibson on 09-29-2023 Monocytes/100 WBC (Bld) 7.7 % 0-10 [facility] Blood platelet mean volumeOr dered By: Jin Gibson on 09-29-2023 Platelet mean volume (Bld) [Entitic vol] 10.6 fL 6.2-12.0 [facility] Determination of erythrocyte mean corpuscular volume (MCV)Ordered By: Jin Gibson on 09-29-2023 MCV (RBC) [Entitic vol] 99.8 fL 81-99 [facility] Hematocrit Auto (Bld) [Volum e fraction]Ordered By: Jin Gibson on 09-29-2023 Hematocrit (Bld) [Volume fraction] 43.3 % 37-47 [facility] INR in Blood by Coagulation assayOrdered By: Jin Gibson on 09-29-2023 INR Coag (Bld) [Relative time] 2.1 {INR} [facility] Laboratory - Chemistry and C hemistry - challengeOrdered By: Jin Gibson on 09-29-2023 CO2 [Moles/Vol] 29.0 mmol/L 21.0-32.0 [facility] Urea nitrogen/Creatinine [Mass ratio] 17.6 mg/mg 10-20 [facility] Laboratory - CoagulationOrde red By: Jin Gibson on 09-29-2023 aPTT Coag (Bld) [Time] 33.2 s 24.1-36.2 [facility] PT Coag (PPP) [Time] 24.2 s 11.7-14.9 [facility] Laboratory - Hematology and Cell countsOrdered By: Jin Gibson on 09-29-2023 Erythrocyte distribution width (RBC) [Entitic vol] 45.9 fL 35.1-43.9 [facility] Erythrocyte distribution width (RBC) [Ratio] 12.5 % 11.6-14.6 [facility] Immature granulocytes/100 WBC (Bld) 0.400 % 0.0-0.9 [facility] Comment on above: IG% - Immature Granu locytes (promyelocytes, myelocytes and metamyelocytes) > 1% indicates that a LEFT SHIFT is Present. MCH (RBC) [Entitic mass] 31.3 pg 27.0-32.0 [facility] Nucleated RBC/100 WBC (Bld) [Ratio] 0 % 0-5 [facility] MCHC Auto (RBC) [Mass/Vol]Or dered By: Jin Gibson on 09-29-2023 MCHC (RBC) [Mass/Vol] 31.4 g/dL 32-36 [facility] No Panel InformationOrdered By: Jin Gibson on 09-29-2023 Troponin I High Sensitivity 8 pg/mL 3.0-54.0 [facility] Comment on above: Please Note: New [place] t Units and Gender Specific Reference Ranges. For more information see Policy Stat Procedure [place] High Sensitivity Troponin (TNIH) and attachments. Estimated Creatinine Clearance Calc 30.47 ml/min [facility] Estimated GFR (MDRD) Amer 96 mL/min >60 [facility] Comment on above: GFR Calc Estimated GFR (MDRD) Non-Af Amer 80 mL/min >60 [facility] Comment on above: Non- GFR Calc Platelets bldOrdered By: Isadora Gibson on 09-29-2023 Platelets (Bld) [#/Vol] 417 10*3/uL 150-450 [facility] Serum or plasma calcium alissa urement (mass/volume)Ordered By: Jin Gibson on 09-29-2023 Calcium [Mass/Vol] 9.0 mg/dL 8.5-10.1 [facility] Serum or plasma creatinine m easurement (mass/volume)Ordered By: Jin Gibson on 09-29-2023 Creatinine [Mass/Vol] 0.74 mg/dL 0.55-1.02 [facility] Comment on above: The validity of the calculated GFR & GFRAA in patients over 70 years has not been determined. Clinical correlation is essential. Serum or plasma urea nitroge n measurement (mass/volume)Ordered By: Jin Gibson on 09-29-2023 Urea nitrogen [Mass/Vol] 13 mg/dL 7-18 [facility] Thin prep Papanicolaou smear with manual screeningOrdered By: Jin Gibson on 09-29-2023 Thin prep Papanicolaou smear with manual screening 5 5-15 [facility] No Panel Informationon 09-13 Influenza Types A,B Rapid (Clinic) Negative [facility] Basophil percentageOrdered B y: Deepika Fabian on 07-10-2023 Basophil percentage 0-5 SEEN /hpf 0-5 [facility] Bilirubin Test strip Ql (U)O rdered By: Deepika Fabian on 07-10-2023 Bilirubin Ql (U) Negative Negative [facility] Culture, urineOrdered By: Franco Fabian on 07-10-2023 Bacteria identified Cx Nom (U) Culture exhibits no growth. [facility] Ketones Test strip Ql (U)Ord ered By: Deepika Fabian on 07-10-2023 Ketones Ql (U) Negative Negative [facility] Mucus LM Ql (Urine sed)Order ed By: Deepika Fabian on 07-10-2023 Mucus Ql (Urine sed) 0 SEEN /hpf [facility] Nitrite Test strip Ql (U)Ord ered By: Deepika Fabian on 07-10-2023 Nitrite Ql (U) Negative Negative [facility] Protein Test strip Ql (U)Ord ered By: Deepika Fabian on 07-10-2023 Protein Ql (U) Negative Negative [facility] Squamous epithelial cells de tection in urine sediment by light microscopyOrdered By: Deepika Fabian on 07-10-2023 Epithelial cells.squamous LM Ql (Urine sed) 0 SEEN /hpf 5-10 [facility] Urine blood detectionOrdered By: Deepika Fabian on 07-10-2023 RBC Ql (U) 10 /ul Negative [facility] RBC Ql (U) 0 SEEN /hpf 0-5 [facility] Urine clarityOrdered By: Ray Fabian on 07-10-2023 Clarity (U) Clear Clear [facility] Urine color determinationOrd ered By: Deepika Fabian on 07-10-2023 Color (U) Yellow Yellow [facility] Urine glucose detectionOrder ed By: Deepika Fabian on 07-10-2023 Glucose Ql (U) Normal mg/dl Normal [facility] Urine leukocyte esterase det ection by dipstickOrdered By: Deepika Fabian on 07-10-2023 Leukocyte esterase Test strip Ql (U) 25 /ul Negative [facility] Urine pHOrdered By: Deepika morrow on 07-10-2023 pH (U) 6.0 [pH] 5.0 - 8.0 [facility] Urine sediment bacteria coun t by microscopy (number/high power field)Ordered By: Deepika Fabian on 07-10-2023 Bacteria LM.HPF (Urine sed) [#/Area] 0 /[HPF] None Seen [facility] Urine specific gravity measu rementOrdered By: Deepika Fabian on 07-10-2023 Specific gravity (U) [Rel density] 1.010 1.002-1.03 0 [facility] Urobilinogen Auto test strip Ql (U)Ordered By: Deepika Fabian on 07-10-2023 Urobilinogen Ql (U) Normal mg/dl Normal [facility] Culture, urineOrdered By: Kathryn Cheng on 06-28-2023 Bacteria identified Cx Nom (U) Presumptive E. coli [facility] Basophil percentageOrdered B y: Terrell Cheng on 06-27-2023 Basophil percentage >100 SEEN /hpf 0-5 [facility] Bilirubin Test strip Ql (U)O rdered By: Terrell Cheng on 06-27-2023 Bilirubin Ql (U) Negative Negative [facility] Ketones Test strip Ql (U)Ord ered By: Terrell Cheng on 06-27-2023 Ketones Ql (U) Negative Negative [facility] Laboratory - Chemistry and C hemistry - challengeon 06-27-2023 Bilirubin Ql (U) Negative [facility] Glucose Ql (U) Negative [facility] Ketones Ql (U) Negative [facility] pH (U) 8.0 [pH] [facility] Specific gravity (U) [Rel density] 1.020 [facility] Urobilinogen (U) [Mass/Vol] 2 mg/dL [facility] Laboratory - Hematology and Cell countson 06-27-2023 Hemoglobin Ql (U) Trace [facility] Laboratory - Specimen inform ationon 06-27-2023 Clarity (U) Cloudy [facility] Color (U) Yellow [facility] Laboratory - Urinalysison Nitrite Ql (U) Negative [facility] Protein Ql (U) Negative [facility] Mucus LM Ql (Urine sed)Order ed By: Terrell Cheng on 06-27-2023 Mucus Ql (Urine sed) 0 SEEN /hpf [facility] Nitrite Test strip Ql (U)Ord ered By: Terrell Cheng on 06-27-2023 Nitrite Ql (U) Negative Negative [facility] No Panel Informationon 06-27 Urine Leukocytes Positive [facility] Urine Non-Hemolyzed Blood [facility] Protein Test strip Ql (U)Ord ered By: Terrell Cheng on 06-27-2023 Protein Ql (U) 15 mg/dl Negative [facility] Squamous epithelial cells de tection in urine sediment by light microscopyOrdered By: Terrell Cheng on 06-27-2023 Epithelial cells.squamous LM Ql (Urine sed) 0-5 SEEN /hpf 5-10 [facility] Urine blood detectionOrdered By: Terrell Cheng on 06-27-2023 RBC Ql (U) 25 /ul Negative [facility] RBC Ql (U) 0-5 SEEN /hpf 0-5 [facility] Urine clarityOrdered By: Arnoldo Cheng on 06-27-2023 Clarity (U) Sl. Cloudy Clear [facility] Urine color determinationOrd ered By: Terrell Cheng on 06-27-2023 Color (U) Yellow Yellow [facility] Urine glucose detectionOrder ed By: Terrell Cheng on 06-27-2023 Glucose Ql (U) Normal mg/dl Normal [facility] Urine leukocyte esterase det ection by dipstickOrdered By: Terrell Cheng on 06-27-2023 Leukocyte esterase Test strip Ql (U) 500 /ul Negative [facility] Urine pHOrdered By: Terrell weir on 06-27-2023 pH (U) 8.0 [pH] 5.0 - 8.0 [facility] Urine sediment bacteria coun t by microscopy (number/high power field)Ordered By: Terrell Cheng on 06-27-2023 Bacteria LM.HPF (Urine sed) [#/Area] RARE /hpf None Seen [facility] Urine specific gravity measu rementOrdered By: Terrell Cheng on 06-27-2023 Specific gravity (U) [Rel density] 1.010 1.002-1.03 0 [facility] Urobilinogen Auto test strip Ql (U)Ordered By: Terrell Cheng on 06-27-2023 Urobilinogen Ql (U) Normal mg/dl Normal [facility] Culture, urineOrdered By: Dr Luciano Fabian on 03-17-2023 Bacteria identified Cx Nom (U) Presumptive E. coli [facility] Basophil percentageOrdered B y: Dr. Fabian on 03-15-2023 Basophil percentage 25-50 SEEN /hpf 0-5 [facility] Bilirubin Test strip Ql (U)O rdered By: Dr. Fabian on 03-15-2023 Bilirubin Ql (U) Negative Negative [facility] Culture, urineOrdered By: Franco Fabian on 03-15-2023 Bacteria identified Cx Nom (U) Presumptive E. coli [facility] Ketones Test strip Ql (U)Ord ered By: Dr. Fabian on 03-15-2023 Ketones Ql (U) Negative Negative [facility] Mucus LM Ql (Urine sed)Order ed By: Dr. Fabian on 03-15-2023 Mucus Ql (Urine sed) 0 SEEN /hpf [facility] Nitrite Test strip Ql (U)Ord ered By: Dr. Fabian on 03-15-2023 Nitrite Ql (U) Positive Negative [facility] Protein Test strip Ql (U)Ord ered By: Dr. Fabian on 03-15-2023 Protein Ql (U) 15 mg/dl Negative [facility] Squamous epithelial cells de tection in urine sediment by light microscopyOrdered By: Dr. Fabian on 03-15-2023 Epithelial cells.squamous LM Ql (Urine sed) 0 SEEN /hpf 5-10 [facility] Urine blood detectionOrdered By: Dr. Fabian on 03-15-2023 RBC Ql (U) 25 /ul Negative [facility] RBC Ql (U) 0-5 SEEN /hpf 0-5 [facility] Urine clarityOrdered By: Dr. Fabian on 03-15-2023 Clarity (U) Sl. Cloudy Clear [facility] Urine color determinationOrd ered By: Dr. Fabian on 03-15-2023 Color (U) Yellow Yellow [facility] Urine glucose detectionOrder ed By: Dr. Fabian on 03-15-2023 Glucose Ql (U) Normal mg/dl Normal [facility] Urine leukocyte esterase det ection by dipstickOrdered By: Dr. Fabian on 03-15-2023 Leukocyte esterase Test strip Ql (U) 500 /ul Negative [facility] Urine pHOrdered By: Dr. Lupillo alexander on 03-15-2023 pH (U) 8.0 [pH] 5.0 - 8.0 [facility] Urine sediment bacteria coun t by microscopy (number/high power field)Ordered By: Dr. Fabian on 03-15-2023 Bacteria LM.HPF (Urine sed) [#/Area] 1 /[HPF] None Seen [facility] Urine specific gravity measu rementOrdered By: Dr. Fabian on 03-15-2023 Specific gravity (U) [Rel density] 1.010 1.002-1.03 0 [facility] Urobilinogen Auto test strip Ql (U)Ordered By: Dr. Fabian on 03-15-2023 Urobilinogen Ql (U) Normal mg/dl Normal [facility] Absolute lymphocyte countOrd ered By: Grace Luna on 03-01-2023 Lymphocytes Auto (Unsp spec) [#/Vol] 2.28 10*3/uL 0.83-4.51 [facility] Basophil percentageOrdered B y: Grace Luna on 03-01-2023 Basophils/100 WBC (Bld) 0.9 % 0-1 [facility] Chloride [Moles/Vol] 107 mmol/L 98-107 [facility] Eosinophils/100 WBC (Bld) 3.8 % 0-5 [facility] Glucose [Mass/Vol] 97 mg/dL 74-106 [facility] Neutrophils (Bld) [#/Vol] 6.3 10*3/uL 2.0-7.7 [facility] Neutrophils/100 WBC (Bld) 63.4 % 47-70 [facility] Potassium [Moles/Vol] 3.8 mmol/L 3.5-5.1 [facility] Sodium [Moles/Vol] 140 mmol/L 136-145 [facility] WBC (Bld) [#/Vol] 10.0 10*3/uL 4.4-11.0 [facility] Blood erythrocytes count (nu mber/volume)Ordered By: Grace Luna on 03-01-2023 RBC (Bld) [#/Vol] 3.58 10*6/uL 4.2-5.4 [facility] Blood hemoglobin measurement (mass/volume)Ordered By: Grace Luna on 03-01-2023 Hemoglobin (Bld) [Mass/Vol] 10.9 g/dL 12.0-15. 0 [facility] Blood lymphocytes/100 leukoc ytesOrdered By: Grace Luna on 03-01-2023 Lymphocytes/100 WBC (Bld) 22.9 % 19-41 [facility] Blood monocytes/100 leukocyt esOrdered By: Grace Luna on 03-01-2023 Monocytes/100 WBC (Bld) 8.5 % 0-10 [facility] Blood platelet mean volumeOr dered By: Grace Luna on 03-01-2023 Platelet mean volume (Bld) [Entitic vol] 9.8 fL 6.2-12.0 [facility] Determination of erythrocyte mean corpuscular volume (MCV)Ordered By: Grace Luna on 03-01-2023 MCV (RBC) [Entitic vol] 98.6 fL 81-99 [facility] Hematocrit Auto (Bld) [Volum e fraction]Ordered By: Grace Luna on 03-01-2023 Hematocrit (Bld) [Volume fraction] 35.3 % 37-47 [facility] Iron measurement (mass/mass) Ordered By: Dr. Fabian on 03-01-2023 Iron (Unsp spec) [Mass/Mass] 27 ug/dL 50-170 [facility] Laboratory - Chemistry and C hemistry - challengeOrdered By: Dr. Fabian on 03-01-2023 Magnesium [Mass/Vol] 2.1 mg/dL 1.6-2.6 [facility] Laboratory - Chemistry and C hemistry - challengeOrdered By: Grace Luna on 03-01-2023 CO2 [Moles/Vol] 26.0 mmol/L 21.0-32.0 [facility] Urea nitrogen/Creatinine [Mass ratio] 25.9 mg/mg 10-20 [facility] Laboratory - Hematology and Cell countsOrdered By: Grace Luna on 03-01-2023 Erythrocyte distribution width (RBC) [Entitic vol] 45.0 fL 35.1-43.9 [facility] Erythrocyte distribution width (RBC) [Ratio] 12.4 % 11.6-14.6 [facility] Immature granulocytes/100 WBC (Bld) 0.500 % 0.0-0.9 [facility] Comment on above: IG% - Immature Granu locytes (promyelocytes, myelocytes and metamyelocytes) > 1% indicates that a LEFT SHIFT is Present. MCH (RBC) [Entitic mass] 30.4 pg 27.0-32.0 [facility] Nucleated RBC/100 WBC (Bld) [Ratio] 0 % 0-5 [facility] MCHC Auto (RBC) [Mass/Vol]Or dered By: Grace Luna on 03-01-2023 MCHC (RBC) [Mass/Vol] 30.9 g/dL 32-36 [facility] No Panel InformationOrdered By: Dr. Fabian on 03-01-2023 Total Iron Binding Capacity 259 ug/dL 250-450 [facility] Vitamin D 25-Hydroxy 34.0 ng/mL [facility] Comment on above: Vitamin D 25(OH) Sta tus Range Deficiency <20 ng/mL (50nmol/L) Insufficiency 20 - 30 ng/mL (50 - 75 nmol/L) Sufficiency 30 - 100 ng/mL (75 - 250 nmol/L) Toxicity >100 ng/mL (>250 nmol/L) No Panel InformationOrdered By: Grace Luna on 03-01-2023 Estimated GFR (MDRD) Amer 110 mL/min >60 [facility] Comment on above: GFR Calc Estimated GFR (MDRD) Non-Af Amer 91 mL/min >60 [facility] Comment on above: Non- GFR Calc Platelets bldOrdered By: Max Luna on 03-01-2023 Platelets (Bld) [#/Vol] 424 10*3/uL 150-450 [facility] Serum or plasma calcium alissa urement (mass/volume)Ordered By: Grace Luna on 03-01-2023 Calcium [Mass/Vol] 9.0 mg/dL 8.5-10.1 [facility] Serum or plasma creatinine m easurement (mass/volume)Ordered By: Grace Luna on 03-01-2023 Creatinine [Mass/Vol] 0.66 mg/dL 0.55-1.02 [facility] Comment on above: The validity of the calculated GFR & GFRAA in patients over 70 years has not been determined. Clinical correlation is essential. Serum or plasma ferritin neil surement (mass/volume)Ordered By: Dr. Fabian on 03-01-2023 Ferritin [Mass/Vol] 92 ng/mL 8-252 [facility] Serum or plasma iron saturat ion measurement (mass fraction)Ordered By: Dr. Fabian on 03-01-2023 Iron saturation [Mass fraction] 10.4 % 15.0-55.0 [facility] Serum or plasma urea nitroge n measurement (mass/volume)Ordered By: Grace Luna on 03-01-2023 Urea nitrogen [Mass/Vol] 17 mg/dL 7-18 [facility] Thin prep Papanicolaou smear with manual screeningOrdered By: Grace Luna on 03-01-2023 Thin prep Papanicolaou smear with manual screening 7 5-15 [facility] Absolute lymphocyte countOrd ered By: Allison Tomlinson on 02-15-2023 Lymphocytes Auto (Unsp spec) [#/Vol] 3.01 10*3/uL 0.83-4.51 [facility] Basophil percentageOrdered B y: Allison Tomlinson on 02-15-2023 Basophils/100 WBC (Bld) 0.3 % 0-1 [facility] Chloride [Moles/Vol] 106 mmol/L 98-107 [facility] Eosinophils/100 WBC (Bld) 1.6 % 0-5 [facility] Glucose [Mass/Vol] 98 mg/dL 74-106 [facility] Neutrophils (Bld) [#/Vol] 10.8 10*3/uL 2.0-7.7 [facility] Neutrophils/100 WBC (Bld) 70.1 % 47-70 [facility] Potassium [Moles/Vol] 3.5 mmol/L 3.5-5.1 [facility] Sodium [Moles/Vol] 139 mmol/L 136-145 [facility] WBC (Bld) [#/Vol] 15.3 10*3/uL 4.4-11.0 [facility] Blood erythrocytes count (nu mber/volume)Ordered By: Allison Tomlinson on 02-15-2023 RBC (Bld) [#/Vol] 3.58 10*6/uL 4.2-5.4 [facility] Blood hemoglobin measurement (mass/volume)Ordered By: Allison Tomlinson on 02-15-2023 Hemoglobin (Bld) [Mass/Vol] 11.1 g/dL 12.0-15. 0 [facility] Blood lymphocytes/100 leukoc ytesOrdered By: Allison Tomlinson on 02-15-2023 Lymphocytes/100 WBC (Bld) 19.6 % 19-41 [facility] Blood monocytes/100 leukocyt esOrdered By: Allison Tomlinson on 02-15-2023 Monocytes/100 WBC (Bld) 7.4 % 0-10 [facility] Blood platelet mean volumeOr dered By: Allison Tomlinson on 02-15-2023 Platelet mean volume (Bld) [Entitic vol] 8.9 fL 6.2-12.0 [facility] Determination of erythrocyte mean corpuscular volume (MCV)Ordered By: Allison Tomlinson on 02-15-2023 MCV (RBC) [Entitic vol] 96.6 fL 81-99 [facility] Hematocrit Auto (Bld) [Volum e fraction]Ordered By: Allison Tomlinson on 02-15-2023 Hematocrit (Bld) [Volume fraction] 34.6 % 37-47 [facility] Laboratory - Chemistry and C hemistry - challengeOrdered By: Allison Tomlinson on 02-15-2023 CO2 [Moles/Vol] 26.0 mmol/L 21.0-32.0 [facility] Urea nitrogen/Creatinine [Mass ratio] 23.7 mg/mg 10-20 [facility] Laboratory - Hematology and Cell countsOrdered By: Allison Tomlinson on 02-15-2023 Erythrocyte distribution width (RBC) [Entitic vol] 46.0 fL 35.1-43.9 [facility] Erythrocyte distribution width (RBC) [Ratio] 12.8 % 11.6-14.6 [facility] Immature granulocytes/100 WBC (Bld) 1.000 % 0.0-0.9 [facility] Comment on above: IG% - Immature Granu locytes (promyelocytes, myelocytes and metamyelocytes) > 1% indicates that a LEFT SHIFT is Present. MCH (RBC) [Entitic mass] 31.0 pg 27.0-32.0 [facility] Nucleated RBC/100 WBC (Bld) [Ratio] 0 % 0-5 [facility] MCHC Auto (RBC) [Mass/Vol]Or dered By: Allison Tomlinson on 02-15-2023 MCHC (RBC) [Mass/Vol] 32.1 g/dL 32-36 [facility] No Panel InformationOrdered By: Allison Tomlinson on 02-15-2023 Estimated GFR (MDRD) Amer 93 mL/min >60 [facility] Comment on above: GFR Calc Estimated GFR (MDRD) Non-Af Amer 77 mL/min >60 [facility] Comment on above: Non- GFR Calc Platelets bldOrdered By: Cameron Tomlinson on 02-15-2023 Platelets (Bld) [#/Vol] 522 10*3/uL 150-450 [facility] Serum or plasma calcium alissa urement (mass/volume)Ordered By: Allison Tomlinson on 02-15-2023 Calcium [Mass/Vol] 8.7 mg/dL 8.5-10.1 [facility] Serum or plasma creatinine m easurement (mass/volume)Ordered By: Allison Tomlinson on 02-15-2023 Creatinine [Mass/Vol] 0.76 mg/dL 0.55-1.02 [facility] Comment on above: The validity of the calculated GFR & GFRAA in patients over 70 years has not been determined. Clinical correlation is essential. Serum or plasma urea nitroge n measurement (mass/volume)Ordered By: Allison Tomlinson on 02-15-2023 Urea nitrogen [Mass/Vol] 18 mg/dL 7-18 [facility] Thin prep Papanicolaou smear with manual screeningOrdered By: Allison Tomlinson on 02-15-2023 Thin prep Papanicolaou smear with manual screening 7 5-15 [facility] COVID-19 virus antigen assay Ordered By: Jody Moffett on 02-13-2023 SARS-CoV-2 (COVID-19) Ag IA.rapid Ql (Resp) [facility] COVID-19 virus antigen assay Ordered By: Dr. Moffett on 02-13-2023 SARS-CoV-2 (COVID-19) Ag IA.rapid Ql (Resp) [facility] Absolute lymphocyte countOrd ered By: Dr. Reynolds on 02-12-2023 Lymphocytes Auto (Unsp spec) [#/Vol] 2.21 10*3/uL 0.83-4.51 [facility] Basophil percentageOrdered B y: Dr. Moffett on 02-12-2023 Basophil percentage 2.5 mg/dL 2.5-4.9 [facility] Bilirubin [Mass/Vol] 0.30 mg/dL 0.20-1.00 [facility] Comment on above: For patients on eltr ombopag therapy, use of Dimension Brewster TBIL is not recommended. Protein [Mass/Vol] 6.0 g/dL 6.4-8.2 [facility] Basophil percentageOrdered B y: Dr. Reynolds on 02-12-2023 Basophils/100 WBC (Bld) 0.3 % 0-1 [facility] Chloride [Moles/Vol] 108 mmol/L 98-107 [facility] Eosinophils/100 WBC (Bld) 1.0 % 0-5 [facility] Glucose [Mass/Vol] 106 mg/dL 74-106 [facility] Comment on above: Fasting Glucose resu lt from 100 to 125 mg/dL suggests IMPAIRED HOMEOSTASIS per A.D.A. criteria. Neutrophils (Bld) [#/Vol] 9.2 10*3/uL 2.0-7.7 [facility] Neutrophils/100 WBC (Bld) 72.9 % 47-70 [facility] Potassium [Moles/Vol] 4.2 mmol/L 3.5-5.1 [facility] Sodium [Moles/Vol] 138 mmol/L 136-145 [facility] WBC (Bld) [#/Vol] 12.7 10*3/uL 4.4-11.0 [facility] Blood erythrocytes count (nu mber/volume)Ordered By: Dr. Reynolds on 02-12-2023 RBC (Bld) [#/Vol] 3.43 10*6/uL 4.2-5.4 [facility] Blood hemoglobin measurement (mass/volume)Ordered By: Dr. Reynolds on 02-12-2023 Hemoglobin (Bld) [Mass/Vol] 10.9 g/dL 12.0-15. 0 [facility] Blood lymphocytes/100 leukoc ytesOrdered By: Dr. Reynolds on 02-12-2023 Lymphocytes/100 WBC (Bld) 17.4 % 19-41 [facility] Blood monocytes/100 leukocyt esOrdered By: Dr. Reynolds on 02-12-2023 Monocytes/100 WBC (Bld) 7.8 % 0-10 [facility] Blood platelet mean volumeOr dered By: Dr. Reynolds on 02-12-2023 Platelet mean volume (Bld) [Entitic vol] 9.5 fL 6.2-12.0 [facility] Determination of erythrocyte mean corpuscular volume (MCV)Ordered By: Dr. Reynolds on 02-12-2023 MCV (RBC) [Entitic vol] 98.0 fL 81-99 [facility] Direct bilirubinOrdered By: Dr. Moffett on 02-12-2023 Bilirubin.direct [Mass/Vol] mg/dL 0.00-0.3 0 [facility] Hematocrit Auto (Bld) [Volum e fraction]Ordered By: Dr. Reynolds on 02-12-2023 Hematocrit (Bld) [Volume fraction] 33.6 % 37-47 [facility] Laboratory - Chemistry and C hemistry - challengeOrdered By: Dr. Moffett on 02-12-2023 ALP [Catalytic activity/Vol] 57 U/L 45-117 [facility] ALT [Catalytic activity/Vol] 15 U/L 13-56 [facility] Free T4 [Mass/Vol] 1.38 ng/dL 0.76-1.46 [facility] Globulin (S) [Mass/Vol] 4.2 g/dL 2.2-4.2 [facility] Magnesium [Mass/Vol] 1.9 mg/dL 1.6-2.6 [facility] Laboratory - Chemistry and C hemistry - challengeOrdered By: Dr. Reynolds on 02-12-2023 CO2 [Moles/Vol] 24.0 mmol/L 21.0-32.0 [facility] Urea nitrogen/Creatinine [Mass ratio] 27.0 mg/mg 10-20 [facility] Laboratory - Hematology and Cell countsOrdered By: Dr. Reynolds on 02-12-2023 Erythrocyte distribution width (RBC) [Entitic vol] 44.9 fL 35.1-43.9 [facility] Erythrocyte distribution width (RBC) [Ratio] 12.7 % 11.6-14.6 [facility] Immature granulocytes/100 WBC (Bld) 0.600 % 0.0-0.9 [facility] Comment on above: IG% - Immature Granu locytes (promyelocytes, myelocytes and metamyelocytes) > 1% indicates that a LEFT SHIFT is Present. MCH (RBC) [Entitic mass] 31.8 pg 27.0-32.0 [facility] Nucleated RBC/100 WBC (Bld) [Ratio] 0 % 0-5 [facility] MCHC Auto (RBC) [Mass/Vol]Or dered By: Dr. Reynolds on 02-12-2023 MCHC (RBC) [Mass/Vol] 32.4 g/dL 32-36 [facility] No Panel InformationOrdered By: Dr. Reynolds on 02-12-2023 Estimated Creatinine Clearance Calc 31.04 ml/min [facility] Estimated GFR (MDRD) Amer 108 mL/min >60 [facility] Comment on above: GFR Calc Estimated GFR (MDRD) Non-Af Amer 89 mL/min >60 [facility] Comment on above: Non- GFR Calc No Panel InformationOrdered By: Dr. Moffett on 02-12-2023 Thyroid Stimulating Hormone (TSH) 0.86 uIU/mL 0.358-3.74 [facility] Platelets bldOrdered By: Dr. Reynolds on 02-12-2023 Platelets (Bld) [#/Vol] 483 10*3/uL 150-450 [facility] Serum or plasma albumin alissa urement (mass/volume)Ordered By: Dr. Moffett on 02-12-2023 Albumin [Mass/Vol] 1.8 g/dL 3.2-5.0 [facility] Serum or plasma calcium alissa urement (mass/volume)Ordered By: Dr. Reynolds on 02-12-2023 Calcium [Mass/Vol] 8.6 mg/dL 8.5-10.1 [facility] Serum or plasma creatinine m easurement (mass/volume)Ordered By: Dr. Reynolds on 02-12-2023 Creatinine [Mass/Vol] 0.67 mg/dL 0.55-1.02 [facility] Comment on above: The validity of the calculated GFR & GFRAA in patients over 70 years has not been determined. Clinical correlation is essential. Serum or plasma urea nitroge n measurement (mass/volume)Ordered By: Dr. Reynolds on 02-12-2023 Urea nitrogen [Mass/Vol] 18 mg/dL 7-18 [facility] Thin prep Papanicolaou smear with manual screeningOrdered By: Dr. Moffett on 02-12-2023 Thin prep Papanicolaou smear with manual screening 14 U/L 15-37 [facility] Thin prep Papanicolaou smear with manual screeningOrdered By: Dr. Reynolds on 02-12-2023 Thin prep Papanicolaou smear with manual screening 6 5-15 [facility] EP PanelOrdered By: Dr. Kaylee epstein on 02-09-2023 Gastrointestinal pathogens panel HAZEL+probe (Stl) [facility] Basophil percentageOrdered B y: Dr. Cedeno on 02-08-2023 Basophil percentage 5-10 SEEN /hpf 0-5 [facility] Bilirubin Test strip Ql (U)O rdered By: Dr. Cedeno on 02-08-2023 Bilirubin Ql (U) Negative Negative [facility] Ketones Test strip Ql (U)Ord ered By: Dr. Cedeno on 02-08-2023 Ketones Ql (U) 5 mg/dl Negative [facility] Mucus LM Ql (Urine sed)Order ed By: Dr. Cedeno on 02-08-2023 Mucus Ql (Urine sed) 0 SEEN /hpf [facility] Nitrite Test strip Ql (U)Ord ered By: Dr. Cedeno on 02-08-2023 Nitrite Ql (U) Negative Negative [facility] Protein Test strip Ql (U)Ord ered By: Dr. Cedeno on 02-08-2023 Protein Ql (U) 30 mg/dl Negative [facility] Serum or plasma albumin/glob ulin mass ratioOrdered By: Dr. Cedeno on 02-08-2023 Albumin/Globulin [Mass ratio] 0.5 {ratio} 0.9-2.4 [facility] Serum or plasma uric acid me asurement (mass/volume)Ordered By: Dr. Reynolds on 02-08-2023 Urate [Mass/Vol] 4.5 mg/dL 2.6-6.0 [facility] Comment on above: The drugs N-Acetylcy steine and Metamizole may falsely depress this assay. Squamous epithelial cells de tection in urine sediment by light microscopyOrdered By: Dr. Cedeno on 02-08-2023 Epithelial cells.squamous LM Ql (Urine sed) 0-5 SEEN /hpf 5-10 [facility] Stool enteric pathogen panel by probe and target amplification methodOrdered By: Himanshu Reynolds on 02-08-2023 Gastrointestinal pathogens panel HAZEL+probe (Stl) [facility] Urine blood detectionOrdered By: Dr. Cedeno on 02-08-2023 RBC Ql (U) 10 /ul Negative [facility] RBC Ql (U) 0 SEEN /hpf 0-5 [facility] Urine clarityOrdered By: Dr. Cedeno on 02-08-2023 Clarity (U) Clear Clear [facility] Urine color determinationOrd ered By: Dr. Cedeno on 02-08-2023 Color (U) Yellow Yellow [facility] Urine glucose detectionOrder ed By: Dr. Cedeno on 02-08-2023 Glucose Ql (U) Normal mg/dl Normal [facility] Urine leukocyte esterase det ection by dipstickOrdered By: Dr. Cedeno on 02-08-2023 Leukocyte esterase Test strip Ql (U) 100 /ul Negative [facility] Urine pHOrdered By: Dr. Juliann reveles on 02-08-2023 pH (U) 7.0 [pH] 5.0 - 8.0 [facility] Urine sediment bacteria coun t by microscopy (number/high power field)Ordered By: Dr. Cedeno on 02-08-2023 Bacteria LM.HPF (Urine sed) [#/Area] 0 /[HPF] None Seen [facility] Urine specific gravity measu rementOrdered By: Dr. Cedeno on 02-08-2023 Specific gravity (U) [Rel density] 1.010 1.002-1.03 0 [facility] Urobilinogen Auto test strip Ql (U)Ordered By: Dr. Cedeno on 02-08-2023 Urobilinogen Ql (U) Normal mg/dl Normal [facility] Stool lactoferrin detection by immunoassayOrdered By: Jb Wood on 12-12-2022 Lactoferrin IA Ql (Stl) [facility] Clostridium difficile detect ion by polymerase chain reactionOrdered By: Jb Wood on 12-11-2022 C. difficile DNA HAZEL+probe Ql (Unsp spec) [facility] EP PanelOrdered By: Jb Wood on 12-11-2022 Gastrointestinal pathogens panel HAZEL+probe (Stl) [facility] No Panel InformationOrdered By: Jb Wood on 12-10-2022 Stool Calprotectin 526 ug/g 0-120 [facility] Comment on above: Concentration Interp retation Follow-Up<16 - 50 ug/g Normal None>50 -120 ug/g Borderline Re-evaluate in 4-6 weeks >120 ug/g Abnormal Repeat as clinically indicatedPerformed at: [facility] [place] [id number] Director: Mick Bradley PhD, Phone: [phone] at: [employer] [id number] Director: Payam Ervin MD, Phone: [phone] Stool Neutral Fats Normal . [facility] Comment on above: Normal (<60 Droplets /HPF) Stool Pancreatic Elastase 390 >200 [facility] Comment on above: Result Units: ug [address] st./g Severe Pancreatic Insufficiency: <100 Moderate Pancreatic Insufficiency: 100 - 200 Normal: >200Performed at: [employer] [id number] Director: Payam Ervin MD, Phone: [phone] Qualitative fecal fat or lip idsOrdered By: Jb Wood on 12-10-2022 Fat Ql (Stl) Normal . [facility] Comment on above: Normal (<100 Droplet s/HPF) Absolute lymphocyte countOrd ered By: Jb Wood on 12-08-2022 Lymphocytes Auto (Unsp spec) [#/Vol] 1.00 10*3/uL 0.83-4.51 [facility] Albumin Elph [Mass/Vol]Order ed By: Jb Wood on 12-08-2022 Albumin [Mass/Vol] 3.2 g/dL 2.9-4.4 [facility] Atypical perinuclear antineu trophil cytoplasmic antibodies measurementOrdered By: Jb Wood on 12-08-2022 Neutrophil cytoplasmic Ab.perinuclear.atypical IF (S) [Titer] <1:20 titer Neg:<1:20 [facility] Comment on above: The atypical pANCA p attern has been observed in asignificant percentage of patients with ulcerative colitis,primary sclerosing cholangitis and autoimmune hepatitis.Performed at: [facility] [id number] Director: Mick Bradley PhD, Phone: [phone] at: [facility] [id number] Director: Pyaam Ervin MD, Phone: [phone] Basophil percentageOrdered B y: Jb Wood on 12-08-2022 Basophil percentage < 0.2 AI 0.0-0.9 [facility] Basophils/100 WBC (Bld) 0.6 % 0-1 [facility] Bilirubin [Mass/Vol] 0.40 mg/dL 0.20-1.00 [facility] Comment on above: For patients on eltr ombopag therapy, use of Dimension [place] TBIL is not recommended. Chloride [Moles/Vol] 96 mmol/L 98-107 [facility] Eosinophils/100 WBC (Bld) 0.4 % 0-5 [facility] Glucose [Mass/Vol] 119 mg/dL 74-106 [facility] Comment on above: Fasting Glucose resu lt from 100 to 125 mg/dL suggests IMPAIRED HOMEOSTASIS per A.D.A. criteria. LDH [Catalytic activity/Vol] 185 U/L 84-246 [facility] Neutrophils (Bld) [#/Vol] 6.4 10*3/uL 2.0-7.7 [facility] Neutrophils/100 WBC (Bld) 79.3 % 47-70 [facility] Potassium [Moles/Vol] 3.2 mmol/L 3.5-5.1 [facility] Protein [Mass/Vol] 6.8 g/dL 6.4-8.2 [facility] Sodium [Moles/Vol] 135 mmol/L 136-145 [facility] WBC (Bld) [#/Vol] 8.1 10*3/uL 4.4-11.0 [facility] Blood erythrocytes count (nu mber/volume)Ordered By: Jb Wood on 12-08-2022 RBC (Bld) [#/Vol] 4.02 10*6/uL 4.2-5.4 [facility] Blood hemoglobin measurement (mass/volume)Ordered By: Jb Wood on 12-08-2022 Hemoglobin (Bld) [Mass/Vol] 12.3 g/dL 12.0-15. 0 [facility] Blood lymphocytes/100 leukoc ytesOrdered By: Jb Wood on 12-08-2022 Lymphocytes/100 WBC (Bld) 12.4 % 19-41 [facility] Blood monocytes/100 leukocyt esOrdered By: Jb Wood on 12-08-2022 Monocytes/100 WBC (Bld) 6.8 % 0-10 [facility] Blood platelet mean volumeOr dered By: Jb Wood on 12-08-2022 Platelet mean volume (Bld) [Entitic vol] 10.0 fL 6.2-12.0 [facility] Determination of erythrocyte mean corpuscular volume (MCV)Ordered By: Jb Wood on 12-08-2022 MCV (RBC) [Entitic vol] 95.5 fL 81-99 [facility] Erythrocyte sedimentation ra teOrdered By: Jb Wood on 12-08-2022 ESR (Bld) [Velocity] 25 mm/h 0-30 [facility] Hematocrit Auto (Bld) [Volum e fraction]Ordered By: Jb Wood on 12-08-2022 Hematocrit (Bld) [Volume fraction] 38.4 % 37-47 [facility] Interpretation of serum or p lasma protein pattern by immunofixation (narrative resultOrdered By: Jb Wood on 12-08-2022 Protein Fractions Immunofixation Derek [Interp] See comment [facility] Comment on above: Result: Not Observed Laboratory - Chemistry and C hemistry - challengeOrdered By: Jb Wood on 12-08-2022 ALP [Catalytic activity/Vol] 65 U/L 45-117 [facility] ALT [Catalytic activity/Vol] 21 U/L 13-56 [facility] CO2 [Moles/Vol] 30.0 mmol/L 21.0-32.0 [facility] Globulin (S) [Mass/Vol] 3.9 g/dL 2.2-4.2 [facility] Urea nitrogen/Creatinine [Mass ratio] 18.8 mg/mg 10-20 [facility] Laboratory - Hematology and Cell countsOrdered By: Jb Wood on 12-08-2022 Erythrocyte distribution width (RBC) [Entitic vol] 46.3 fL 35.1-43.9 [facility] Erythrocyte distribution width (RBC) [Ratio] 13.2 % 11.6-14.6 [facility] Immature granulocytes/100 WBC (Bld) 0.500 % 0.0-0.9 [facility] Comment on above: IG% - Immature Granu locytes (promyelocytes, myelocytes and metamyelocytes) > 1% indicates that a LEFT SHIFT is Present. MCH (RBC) [Entitic mass] 30.6 pg 27.0-32.0 [facility] Nucleated RBC/100 WBC (Bld) [Ratio] 0 % 0-5 [facility] MCHC Auto (RBC) [Mass/Vol]Or dered By: Jb Wood on 12-08-2022 MCHC (RBC) [Mass/Vol] 32.0 g/dL 32-36 [facility] No Panel InformationOrdered By: Jb Wood on 12-08-2022 Addendum Document Comment . [facility] Comment on above: Protein electrophore sis scan will follow via computer,mail, or machine tester delivery. Centromere B Antibody <0.2 AI 0.0-0.9 [facility] Endomysial IgA Antibody Negative Negative [facility] Estimated GFR (MDRD) Amer 114 mL/min >60 [facility] Comment on above: GFR Calc Estimated GFR (MDRD) Non-Af Amer 94 mL/min >60 [facility] Comment on above: Non- GFR Calc Immunoglobulin E 19 IU/mL 6-495 [facility] Miscellaneous Test See comment [facility] Comment on above: TEST RESULT LIMITSIB [...] developed and its performance characteristics determined by [facility]. It has not been cleared or approved by the Food and Drug Administration. The FDA has determined that such clearance or approval is not necessary.Atypical pANCA Negative Negative Comments Pattern is not suggestive of Inflammatory Bowel Disease TESTING PERFORMED AT [facility]. ORIGINAL REPORT ON FILE IN LAB CONTAINS ADDITIONAL TEST SITE INFORMATION. [employer]ES EXEC Antibody <0.2 AI 0.0-0.9 [facility] Platelets bldOrdered By: Lui Wood on 12-08-2022 Platelets (Bld) [#/Vol] 392 10*3/uL 150-450 [facility] Serum DNA double strand anti body assay (units/volume)Ordered By: Jb Wood on 12-08-2022 DNA double strand Ab Qn (S) [IU]/mL 0-9 [facility] Comment on above: Negative <5 Equivoca l 5 - 9 Positive >9 Serum IgA measurement (units /volume)Ordered By: Jb Wood on 12-08-2022 IgA Qn (S) 210 mg/dL 64-422 [facility] Comment on above: Performed at: [facility] [address] [id number] Director: Mick Bradley PhD, Phone: [phone] Serum Kerry-1 antibody assay (u nits/volume)Ordered By: Jb Wood on 12-08-2022 Kerry-1 extractable nuclear Ab Qn (S) <0.2 AI 0.0-0.9 [facility] Serum Scl-70 extractable nuc lear antibody assay (units/volume)Ordered By: Jb Wood on 12-08-2022 SCL-70 extractable nuclear Ab Qn (S) <0.2 AI 0.0-0.9 [facility] Serum Benito extractable nucl ear antibody detectionOrdered By: Jb Wood on 12-08-2022 Benito extractable nuclear Ab Ql (S) <0.2 AI 0.0-0.9 [facility] Serum [id number] measu rement by electrophoresisOrdered By: Jb Wood on 12-08-2022 Alpha 1 globulin Elph [Mass/Vol] 0.3 g/dL 0.0-0.4 [facility] Alpha 1 globulin Elph [Mass/Vol] 1.1 g/dL 0.4-1.0 [facility] Serum classic neutrophil cyt oplasmic antibody assay (units/volume)Ordered By: Jb Wood on 12-08-2022 Neutrophil cytoplasmic Ab.classic Qn (S) <1:20 titer Neg:<1:20 [facility] Serum globulin measurement ( mass/volume)Ordered By: Jb Wood on 12-08-2022 Globulin (S) [Mass/Vol] 3.3 g/dL 2.2-3.9 [facility] Serum or plasma C reactive p rotein measurement (mass/volume)Ordered By: Jb Wood on 12-08-2022 CRP [Mass/Vol] 3.82 mg/L 0.0-3.0 [facility] Comment on above: C-Reactive Protein ( CRP) provides useful information for thediagnosis, therapy and monitoring of inflammatory processesand associated diseases. For the evaluation of Relative Riskfor Cardiovascular Disease, a High Sensitivity CRP (HSCRP)should be ordered. Serum or plasma IgA measurem ent (mass/volume)Ordered By: Jb Wood on 12-08-2022 IgA [Mass/Vol] 202 mg/dL 64-422 [facility] Serum or plasma IgG measurem ent (mass/volume)Ordered By: Jb Wood on 12-08-2022 IgG [Mass/Vol] 819 mg/dL [phone] [facility] Serum or plasma IgM measurem ent (mass/volume)Ordered By: Jb Wood on 12-08-2022 IgM [Mass/Vol] 71 mg/dL 26-217 [facility] Serum or plasma albumin alissa urement (mass/volume)Ordered By: Jb Wood on 12-08-2022 Albumin [Mass/Vol] 2.9 g/dL 3.2-5.0 [facility] Serum or plasma albumin/glob ulin mass ratioOrdered By: Jb Wood on 12-08-2022 Albumin/Globulin [Mass ratio] 0.7 {ratio} 0.9-2.4 [facility] Serum or plasma beta globuli n measurement by electrophoresis (mass/volume)Ordered By: Jb Wood on 12-08-2022 Beta globulin Elph [Mass/Vol] 1.1 g/dL 0.7-1.3 [facility] Serum or plasma calcium alissa urement (mass/volume)Ordered By: Jb Wood on 12-08-2022 Calcium [Mass/Vol] 8.8 mg/dL 8.5-10.1 [facility] Serum or plasma creatinine m easurement (mass/volume)Ordered By: Jb Wood on 12-08-2022 Creatinine [Mass/Vol] 0.64 mg/dL 0.55-1.02 [facility] Comment on above: The validity of the calculated GFR & GFRAA in patients over 70 years has not been determined. Clinical correlation is essential. Serum or plasma gamma globul in measurement by electrophoresis (mass/volume)Ordered By: Jb Wood on 12-08-2022 Gamma globulin Elph [Mass/Vol] 0.8 g/dL 0.4-1.8 [facility] Serum or plasma immunoelectr ophoresis interpretation (nominal result)Ordered By: Jb Wood on 12-08-2022 Interpretation IEP [Interp] Comment . [facility] Comment on above: No monoclonality det ected. Serum or plasma urea nitroge n measurement (mass/volume)Ordered By: Jb Wood on 12-08-2022 Urea nitrogen [Mass/Vol] 12 mg/dL 7-18 [facility] Serum perinuclear neutrophil cytoplasmic antibody titer by immunofluorescenceOrdered By: Jb Wood on 12-08-2022 Neutrophil cytoplasmic Ab.perinuclear IF (S) [Titer] <1:20 titer Neg:<1:20 [facility] Comment on above: The presence of posi tive fluorescence exhibiting P-ANCA orC-ANCA patterns alone is not specific for the diagnosis ofWegener's Granulomatosis (WG) or microscopic polyangiitis.Decisions about treatment should not be based solely onANCA IFA results. The [employer] Consensusrecommends follow up testing of positive sera with both CT-3 and MPO-ANCA enzyme immunoassays. As many as 5% serumsamples are positive only by EIA. Ref. AM J Clin [id number];111:507-513. Serum tissue transglutaminas e IgA antibody assay (units/volume)Ordered By: Jb Wood on 12-08-2022 tTG IgA Qn (S) <2 U/mL 0-3 [facility] Comment on above: Negative 0 - 3 Weak Positive 4 - 10 Positive >10 Tissue Transglutaminase (tTG) has been identified as the endomysial antigen. Studies have demonstr- ated that endomysial IgA antibodies have over 99% specificity for gluten sensitive enteropathy. Thin prep Papanicolaou smear with manual screeningOrdered By: Jb Wood on 12-08-2022 Thin prep Papanicolaou smear with manual screening 12 U/L 15-37 [facility] Thin prep Papanicolaou smear with manual screening 9 5-15 [facility] Thin prep Papanicolaou smear with manual screening 1.0 0.7-1.7 [facility] Total protein bloodOrdered B y: Jb Wood on 12-08-2022 Protein [Mass/Vol] 6.5 g/dL 6.0-8.5 [facility] Basophil percentageOrdered B y: Dr. Fabian on 11-13-2022 Bilirubin [Mass/Vol] 0.30 mg/dL 0.20-1.00 [facility] Comment on above: For patients on eltr ombopag therapy, use of Dimension [place] TBIL is not recommended. Chloride [Moles/Vol] 98 mmol/L 98-107 [facility] Glucose [Mass/Vol] 161 mg/dL 74-106 [facility] Comment on above: Fasting Glucose resu lt greater than or equal to 126 mg/dL suggests DIABETES MELLITUS per A.D.A. criteria. Potassium [Moles/Vol] 3.0 mmol/L 3.5-5.1 [facility] Protein [Mass/Vol] 7.5 g/dL 6.4-8.2 [facility] Sodium [Moles/Vol] 137 mmol/L 136-145 [facility] Laboratory - Chemistry and C hemistry - challengeOrdered By: Dr. Fabian on 11-13-2022 ALP [Catalytic activity/Vol] 71 U/L 45-117 [facility] ALT [Catalytic activity/Vol] 36 U/L 13-56 [facility] CO2 [Moles/Vol] 30.0 mmol/L 21.0-32.0 [facility] Globulin (S) [Mass/Vol] 4.7 g/dL 2.2-4.2 [facility] Urea nitrogen/Creatinine [Mass ratio] 18.9 mg/mg 10-20 [facility] No Panel InformationOrdered By: Dr. Fabian on 11-13-2022 Endomysial IgA Antibody Negative Negative [facility] Estimated GFR (MDRD) Amer 89 mL/min >60 [facility] Comment on above: GFR Calc Estimated GFR (MDRD) Non-Af Amer 73 mL/min >60 [facility] Comment on above: Non- GFR Calc Vitamin D 25-Hydroxy 24.5 ng/mL [facility] Comment on above: Vitamin D 25(OH) Sta tus Range Deficiency <20 ng/mL (50nmol/L) Insufficiency 20 - 30 ng/mL (50 - 75 nmol/L) Sufficiency 30 - 100 ng/mL (75 - 250 nmol/L) Toxicity >100 ng/mL (>250 nmol/L) Serum IgA measurement (units /volume)Ordered By: Dr. Fabian on 11-13-2022 IgA Qn (S) 227 mg/dL 64-422 [facility] Comment on above: Performed at: [address] [id number] Director: Mick Bradley PhD, Phone: [phone] Serum or plasma albumin alissa urement (mass/volume)Ordered By: Dr. Fabian on 11-13-2022 Albumin [Mass/Vol] 2.8 g/dL 3.2-5.0 [facility] Serum or plasma albumin/glob ulin mass ratioOrdered By: Dr. Fabian on 11-13-2022 Albumin/Globulin [Mass ratio] 0.6 {ratio} 0.9-2.4 [facility] Serum or plasma calcium alissa urement (mass/volume)Ordered By: Dr. Fabian on 11-13-2022 Calcium [Mass/Vol] 9.3 mg/dL 8.5-10.1 [facility] Serum or plasma creatinine m easurement (mass/volume)Ordered By: Dr. Fabian on 11-13-2022 Creatinine [Mass/Vol] 0.79 mg/dL 0.55-1.02 [facility] Comment on above: The validity of the calculated GFR & GFRAA in patients over 70 years has not been determined. Clinical correlation is essential. Serum or plasma urea nitroge n measurement (mass/volume)Ordered By: Dr. Fabian on 11-13-2022 Urea nitrogen [Mass/Vol] 15 mg/dL 7-18 [facility] Serum tissue transglutaminas e IgA antibody assay (units/volume)Ordered By: Dr. Fabian on 11-13-2022 tTG IgA Qn (S) <2 U/mL 0-3 [facility] Comment on above: Negative 0 - 3 Weak Positive 4 - 10 Positive >10 Tissue Transglutaminase (tTG) has been identified as the endomysial antigen. Studies have demonstr- ated that endomysial IgA antibodies have over 99% specificity for gluten sensitive enteropathy. Thin prep Papanicolaou smear with manual screeningOrdered By: Dr. Fabian on 11-13-2022 Thin prep Papanicolaou smear with manual screening 26 U/L 15-37 [facility] Thin prep Papanicolaou smear with manual screening 9 5-15 [facility] Absolute lymphocyte countOrd ered By: Dr. Irwin on 11-10-2022 Lymphocytes Auto (Unsp spec) [#/Vol] 2.31 10*3/uL 0.83-4.51 [facility] Basophil percentageOrdered B y: Dr. Irwin on 11-10-2022 Basophil percentage 0 SEEN /hpf 0-5 [facility] Basophils/100 WBC (Bld) 0.6 % 0-1 [facility] Bilirubin [Mass/Vol] 0.30 mg/dL 0.20-1.00 [facility] Comment on above: For patients on eltr ombopag therapy, use of Dimension [place] TBIL is not recommended. Chloride [Moles/Vol] 97 mmol/L 98-107 [facility] Eosinophils/100 WBC (Bld) 1.4 % 0-5 [facility] Glucose [Mass/Vol] 102 mg/dL 74-106 [facility] Comment on above: Fasting Glucose resu lt from 100 to 125 mg/dL suggests IMPAIRED HOMEOSTASIS per A.D.A. criteria. Neutrophils (Bld) [#/Vol] 6.2 10*3/uL 2.0-7.7 [facility] Neutrophils/100 WBC (Bld) 62.1 % 47-70 [facility] Potassium [Moles/Vol] 2.6 mmol/L 3.5-5.1 [facility] Comment on above: Critical Result(s) C alled at: 11:54:29 11/10/2022 by: Toño Rivera RN (ER). Results read back by same. Protein [Mass/Vol] 6.8 g/dL 6.4-8.2 [facility] Sodium [Moles/Vol] 138 mmol/L 136-145 [facility] WBC (Bld) [#/Vol] 10.0 10*3/uL 4.4-11.0 [facility] Bilirubin Test strip Ql (U)O rdered By: Dr. Irwin on 11-10-2022 Bilirubin Ql (U) Negative Negative [facility] Blood erythrocytes count (nu mber/volume)Ordered By: Dr. Irwin on 11-10-2022 RBC (Bld) [#/Vol] 3.82 10*6/uL 4.2-5.4 [facility] Blood hemoglobin measurement (mass/volume)Ordered By: Dr. Irwin on 11-10-2022 Hemoglobin (Bld) [Mass/Vol] 11.7 g/dL 12.0-15. 0 [facility] Blood lymphocytes/100 leukoc ytesOrdered By: Dr. Irwin on 11-10-2022 Lymphocytes/100 WBC (Bld) 23.1 % 19-41 [facility] Blood monocytes/100 leukocyt esOrdered By: Dr. Irwin on 11-10-2022 Monocytes/100 WBC (Bld) 11.8 % 0-10 [facility] Blood platelet mean volumeOr dered By: Dr. Irwin on 11-10-2022 Platelet mean volume (Bld) [Entitic vol] 9.1 fL 6.2-12.0 [facility] Determination of erythrocyte mean corpuscular volume (MCV)Ordered By: Dr. rIwin on 11-10-2022 MCV (RBC) [Entitic vol] 95.5 fL 81-99 [facility] Direct bilirubinOrdered By: Dr. Irwin on 11-10-2022 Bilirubin.direct [Mass/Vol] 0.10 mg/dL 0.00-0.3 0 [facility] Hematocrit Auto (Bld) [Volum e fraction]Ordered By: Dr. Irwin on 11-10-2022 Hematocrit (Bld) [Volume fraction] 36.5 % 37-47 [facility] Ketones Test strip Ql (U)Ord ered By: Dr. Irwin on 11-10-2022 Ketones Ql (U) Negative Negative [facility] Laboratory - Chemistry and C hemistry - challengeOrdered By: Dr. Irwin on 11-10-2022 ALP [Catalytic activity/Vol] 63 U/L 45-117 [facility] ALT [Catalytic activity/Vol] 23 U/L 13-56 [facility] CO2 [Moles/Vol] 31.0 mmol/L 21.0-32.0 [facility] Globulin (S) [Mass/Vol] 4.4 g/dL 2.2-4.2 [facility] Urea nitrogen/Creatinine [Mass ratio] 16.9 mg/mg 10-20 [facility] Laboratory - Hematology and Cell countsOrdered By: Dr. Irwin on 11-10-2022 Erythrocyte distribution width (RBC) [Entitic vol] 42.5 fL 35.1-43.9 [facility] Erythrocyte distribution width (RBC) [Ratio] 12.2 % 11.6-14.6 [facility] Immature granulocytes/100 WBC (Bld) 1.000 % 0.0-0.9 [facility] Comment on above: IG% - Immature Granu locytes (promyelocytes, myelocytes and metamyelocytes) > 1% indicates that a LEFT SHIFT is Present. MCH (RBC) [Entitic mass] 30.6 pg 27.0-32.0 [facility] Nucleated RBC/100 WBC (Bld) [Ratio] 0 % 0-5 [facility] MCHC Auto (RBC) [Mass/Vol]Or dered By: Dr. Irwin on 11-10-2022 MCHC (RBC) [Mass/Vol] 32.1 g/dL 32-36 [facility] Mucus LM Ql (Urine sed)Order ed By: Dr. Irwin on 11-10-2022 Mucus Ql (Urine sed) 0 SEEN /hpf [facility] Nitrite Test strip Ql (U)Ord ered By: Dr. Irwin on 11-10-2022 Nitrite Ql (U) Negative Negative [facility] No Panel InformationOrdered By: Dr. Irwin on 11-10-2022 Estimated Creatinine Clearance Calc 33.02 ml/min [facility] Estimated GFR (MDRD) Amer 72 mL/min >60 [facility] Comment on above: GFR Calc Estimated GFR (MDRD) Non-Af Amer 60 mL/min >60 [facility] Comment on above: Non- GFR Calc Platelets bldOrdered By: Dr. Irwin on 11-10-2022 Platelets (Bld) [#/Vol] 443 10*3/uL 150-450 [facility] Protein Test strip Ql (U)Ord ered By: Dr. Irwin on 11-10-2022 Protein Ql (U) Negative Negative [facility] Serum or plasma albumin alissa urement (mass/volume)Ordered By: Dr. Irwin on 11-10-2022 Albumin [Mass/Vol] 2.4 g/dL 3.2-5.0 [facility] Serum or plasma calcium alissa urement (mass/volume)Ordered By: Dr. Irwin on 11-10-2022 Calcium [Mass/Vol] 8.5 mg/dL 8.5-10.1 [facility] Serum or plasma creatinine m easurement (mass/volume)Ordered By: Dr. Irwin on 11-10-2022 Creatinine [Mass/Vol] 0.94 mg/dL 0.55-1.02 [facility] Comment on above: The validity of the calculated GFR & GFRAA in patients over 70 years has not been determined. Clinical correlation is essential. Serum or plasma urea nitroge n measurement (mass/volume)Ordered By: Dr. Irwin on 11-10-2022 Urea nitrogen [Mass/Vol] 16 mg/dL 7-18 [facility] Squamous epithelial cells de tection in urine sediment by light microscopyOrdered By: Dr. Irwin on 11-10-2022 Epithelial cells.squamous LM Ql (Urine sed) 0-5 SEEN /hpf 5-10 [facility] Thin prep Papanicolaou smear with manual screeningOrdered By: Dr. Irwin on 11-10-2022 Thin prep Papanicolaou smear with manual screening 15 U/L 15-37 [facility] Thin prep Papanicolaou smear with manual screening 10 5-15 [facility] Urine blood detectionOrdered By: Dr. Irwin on 11-10-2022 RBC Ql (U) Negative Negative [facility] RBC Ql (U) 0 SEEN /hpf 0-5 [facility] Urine clarityOrdered By: Dr. Irwin on 11-10-2022 Clarity (U) Clear Clear [facility] Urine color determinationOrd ered By: Dr. Irwin on 11-10-2022 Color (U) Yellow Yellow [facility] Urine glucose detectionOrder ed By: Dr. Irwin on 11-10-2022 Glucose Ql (U) Normal mg/dl Normal [facility] Urine leukocyte esterase det ection by dipstickOrdered By: Dr. Irwin on 11-10-2022 Leukocyte esterase Test strip Ql (U) 100 /ul Negative [facility] Urine pHOrdered By: Dr. Stefany house on 11-10-2022 pH (U) 7.0 [pH] 5.0 - 8.0 [facility] Urine sediment bacteria coun t by microscopy (number/high power field)Ordered By: Dr. Irwin on 11-10-2022 Bacteria LM.HPF (Urine sed) [#/Area] 0 /[HPF] None Seen [facility] Urine sediment renal epithel ial cell count by microscopy (number/high power field)Ordered By: Dr. Irwin on 11-10-2022 Epithelial cells.renal LM.HPF (Urine sed) [#/Area] 0 /[HPF] 0-5 [facility] Urine specific gravity measu rementOrdered By: Dr. Irwin on 11-10-2022 Specific gravity (U) [Rel density] 1.005 1.002-1.03 0 [facility] Urobilinogen Auto test strip Ql (U)Ordered By: Dr. Irwin on 11-10-2022 Urobilinogen Ql (U) Normal mg/dl Normal [facility] Absolute lymphocyte countOrd ered By: Dr. Gibson on 11-01-2022 Lymphocytes Auto (Unsp spec) [#/Vol] 1.90 10*3/uL 0.83-4.51 [facility] Absolute lymphocyte countOrd ered By: Dr. Fabian on 11-01-2022 Lymphocytes Auto (Unsp spec) [#/Vol] 1.93 10*3/uL 0.83-4.51 [facility] Basophil percentageOrdered B y: Dr. Gibson on 11-01-2022 Basophils/100 WBC (Bld) 0.9 % 0-1 [facility] Chloride [Moles/Vol] 101 mmol/L 98-107 [facility] Eosinophils/100 WBC (Bld) 1.7 % 0-5 [facility] Glucose [Mass/Vol] 120 mg/dL 74-106 [facility] Comment on above: Fasting Glucose resu lt from 100 to 125 mg/dL suggests IMPAIRED HOMEOSTASIS per A.D.A. criteria. Neutrophils (Bld) [#/Vol] 2.8 10*3/uL 2.0-7.7 [facility] Neutrophils/100 WBC (Bld) 43.8 % 47-70 [facility] Potassium [Moles/Vol] 2.7 mmol/L 3.5-5.1 [facility] Comment on above: Critical Result(s) C alled at: 16:30:16 11/01/2022 by: Gillian Garrett to [facility]. Results read back by same. Sodium [Moles/Vol] 139 mmol/L 136-145 [facility] WBC (Bld) [#/Vol] 6.4 10*3/uL 4.4-11.0 [facility] Basophil percentageOrdered B y: Dr. Fabian on 11-01-2022 Basophils/100 WBC (Bld) 1.1 % 0-1 [facility] Bilirubin [Mass/Vol] 0.50 mg/dL 0.20-1.00 [facility] Comment on above: For patients on eltr ombopag therapy, use of Dimension [place] TBIL is not recommended. Chloride [Moles/Vol] 98 mmol/L 98-107 [facility] Eosinophils/100 WBC (Bld) 1.4 % 0-5 [facility] Glucose [Mass/Vol] 119 mg/dL 74-106 [facility] Comment on above: Fasting Glucose resu lt from 100 to 125 mg/dL suggests IMPAIRED HOMEOSTASIS per A.D.A. criteria. Neutrophils (Bld) [#/Vol] 2.4 10*3/uL 2.0-7.7 [facility] Neutrophils/100 WBC (Bld) 42.3 % 47-70 [facility] Potassium [Moles/Vol] 2.4 mmol/L 3.5-5.1 [facility] Protein [Mass/Vol] 7.4 g/dL 6.4-8.2 [facility] Sodium [Moles/Vol] 136 mmol/L 136-145 [facility] WBC (Bld) [#/Vol] 5.6 10*3/uL 4.4-11.0 [facility] Blood erythrocytes count (nu mber/volume)Ordered By: Dr. Gibson on 11-01-2022 RBC (Bld) [#/Vol] 4.28 10*6/uL 4.2-5.4 [facility] Blood erythrocytes count (nu mber/volume)Ordered By: Dr. Fabian on 11-01-2022 RBC (Bld) [#/Vol] 4.15 10*6/uL 4.2-5.4 [facility] Blood hemoglobin measurement (mass/volume)Ordered By: Dr. Gibson on 11-01-2022 Hemoglobin (Bld) [Mass/Vol] 13.0 g/dL 12.0-15. 0 [facility] Blood hemoglobin measurement (mass/volume)Ordered By: Dr. Fabian on 11-01-2022 Hemoglobin (Bld) [Mass/Vol] 12.6 g/dL 12.0-15. 0 [facility] Blood lymphocytes/100 leukoc ytesOrdered By: Dr. Gibson on 11-01-2022 Lymphocytes/100 WBC (Bld) 29.5 % - [facility] Blood lymphocytes/100 leukoc ytesOrdered By: Dr. Fabian on 11-01-2022 Lymphocytes/100 WBC (Bld) 34.6 % 19-41 [facility] Blood manual differential co mment interpretation (narrative result)Ordered By: Dr. Gibson on 11-01-2022 Manual differential comment Derek (Bld) [Interp] SCANNED [facility] Blood monocytes/100 leukocyt esOrdered By: Dr. Gibson on 11-01-2022 Monocytes/100 WBC (Bld) 23.8 % 0-10 [facility] Blood monocytes/100 leukocyt esOrdered By: Dr. Fabian on 11-01-2022 Monocytes/100 WBC (Bld) 20.4 % 0-10 [facility] Blood platelet mean volumeOr dered By: Dr. Gibson on 11-01-2022 Platelet mean volume (Bld) [Entitic vol] 9.7 fL 6.2-12.0 [facility] Blood platelet mean volumeOr dered By: Dr. Fabian on 11-01-2022 Platelet mean volume (Bld) [Entitic vol] 10.1 fL 6.2-12.0 [facility] Clostridium difficile detect ion by polymerase chain reactionOrdered By: Dr. Fabian on 11-01-2022 C. difficile DNA HAZEL+probe Ql (Unsp spec) [facility] Determination of erythrocyte mean corpuscular volume (MCV)Ordered By: Dr. Gibson on 11-01-2022 MCV (RBC) [Entitic vol] 93.9 fL 81-99 [facility] Determination of erythrocyte mean corpuscular volume (MCV)Ordered By: Dr. Fabian on 11-01-2022 MCV (RBC) [Entitic vol] 93.3 fL 81-99 [facility] EP PanelOrdered By: Dr. Lupillo alexander on 11-01-2022 Gastrointestinal pathogens panel HAZEL+probe (Stl) [facility] Giardia lamblia ag stool EIA Ordered By: Dr. Fabian on 11-01-2022 G. lamblia Ag IA Ql (Stl) Negative Negative [facility] Comment on above: Performed at: [address] Director: Mick Bradley PhD, Phone: [phone] Hematocrit Auto (Bld) [Volum e fraction]Ordered By: Dr. Gibson on 11-01-2022 Hematocrit (Bld) [Volume fraction] 40.2 % 37-47 [facility] Hematocrit Auto (Bld) [Volum e fraction]Ordered By: Dr. Fabian on 11-01-2022 Hematocrit (Bld) [Volume fraction] 38.7 % 37-47 [facility] Laboratory - Chemistry and C hemistry - challengeOrdered By: Dr. Gibson on 11-01-2022 CO2 [Moles/Vol] 29.0 mmol/L 21.0-32.0 [facility] Magnesium [Mass/Vol] 2.3 mg/dL 1.6-2.6 [facility] Urea nitrogen/Creatinine [Mass ratio] 18.5 mg/mg 10-20 [facility] Laboratory - Chemistry and C hemistry - challengeOrdered By: Dr. Fabian on 11-01-2022 ALP [Catalytic activity/Vol] 62 U/L 45-117 [facility] ALT [Catalytic activity/Vol] 22 U/L 13-56 [facility] CO2 [Moles/Vol] 31.0 mmol/L 21.0-32.0 [facility] Globulin (S) [Mass/Vol] 4.5 g/dL 2.2-4.2 [facility] Magnesium [Mass/Vol] 2.3 mg/dL 1.6-2.6 [facility] Urea nitrogen/Creatinine [Mass ratio] 19.3 mg/mg 10-20 [facility] Laboratory - Hematology and Cell countsOrdered By: Dr. Gibson on 11-01-2022 Erythrocyte distribution width (RBC) [Entitic vol] 41.5 fL 35.1-43.9 [facility] Erythrocyte distribution width (RBC) [Ratio] 12.1 % 11.6-14.6 [facility] Immature granulocytes/100 WBC (Bld) 0.300 % 0.0-0.9 [facility] Comment on above: IG% - Immature Granu locytes (promyelocytes, myelocytes and metamyelocytes) > 1% indicates that a LEFT SHIFT is Present. MCH (RBC) [Entitic mass] 30.4 pg 27.0-32.0 [facility] Nucleated RBC/100 WBC (Bld) [Ratio] 0 % 0-5 [facility] Laboratory - Hematology and Cell countsOrdered By: Dr. Fabian on 11-01-2022 Erythrocyte distribution width (RBC) [Entitic vol] 41.4 fL 35.1-43.9 [facility] Erythrocyte distribution width (RBC) [Ratio] 12.1 % 11.6-14.6 [facility] Immature granulocytes/100 WBC (Bld) 0.200 % 0.0-0.9 [facility] Comment on above: IG% - Immature Granu locytes (promyelocytes, myelocytes and metamyelocytes) > 1% indicates that a LEFT SHIFT is Present. MCH (RBC) [Entitic mass] 30.4 pg 27.0-32.0 [facility] Nucleated RBC/100 WBC (Bld) [Ratio] 0.5 % 0-5 [facility] MCHC Auto (RBC) [Mass/Vol]Or dered By: Dr. Gibson on 11-01-2022 MCHC (RBC) [Mass/Vol] 32.3 g/dL 32-36 [facility] MCHC Auto (RBC) [Mass/Vol]Or dered By: Dr. Fabian on 11-01-2022 MCHC (RBC) [Mass/Vol] 32.6 g/dL 32-36 [facility] No Panel InformationOrdered By: Dr. Gibson on 11-01-2022 Estimated Creatinine Clearance Calc 23.56 ml/min [facility] Estimated GFR (MDRD) Amer 50 mL/min >60 [facility] Comment on above: GFR Calc Estimated GFR (MDRD) Non-Af Amer 41 mL/min >60 [facility] Comment on above: Non- GFR Calc No Panel InformationOrdered By: Dr. Fabian on 11-01-2022 Stool Calprotectin 339 ug/g 0-120 [facility] Comment on above: Concentration Interp retation Follow-Up<16 - 50 ug/g Normal None>50 -120 ug/g Borderline Re-evaluate in 4-6 weeks >120 ug/g Abnormal Repeat as clinically indicatedPerformed at: - [facility] [id number] Director: Payam Ervin MD, Phone: [phone] Estimated GFR (MDRD) Amer 79 mL/min >60 [facility] Comment on above: GFR Calc Estimated GFR (MDRD) Non-Af Amer 65 mL/min >60 [facility] Comment on above: Non- GFR Calc Platelets bldOrdered By: Dr. iGbson on 11-01-2022 Platelets (Bld) [#/Vol] 392 10*3/uL 150-450 [facility] Platelets bldOrdered By: Dr. Fabian on 11-01-2022 Platelets (Bld) [#/Vol] 423 10*3/uL 150-450 [facility] Serum or plasma albumin alissa urement (mass/volume)Ordered By: Dr. Fabian on 11-01-2022 Albumin [Mass/Vol] 2.9 g/dL 3.2-5.0 [facility] Serum or plasma albumin/glob ulin mass ratioOrdered By: Dr. Fabian on 11-01-2022 Albumin/Globulin [Mass ratio] 0.6 {ratio} 0.9-2.4 [facility] Serum or plasma calcium alissa urement (mass/volume)Ordered By: Dr. Gibson on 11-01-2022 Calcium [Mass/Vol] 8.9 mg/dL 8.5-10.1 [facility] Serum or plasma calcium alissa urement (mass/volume)Ordered By: Dr. Fabian on 11-01-2022 Calcium [Mass/Vol] 9.1 mg/dL 8.5-10.1 [facility] Serum or plasma creatinine m easurement (mass/volume)Ordered By: Dr. Gibson on 11-01-2022 Creatinine [Mass/Vol] 1.30 mg/dL 0.55-1.02 [facility] Comment on above: The validity of the calculated GFR & GFRAA in patients over 70 years has not been determined. Clinical correlation is essential. Serum or plasma creatinine m easurement (mass/volume)Ordered By: Dr. Fabian on 11-01-2022 Creatinine [Mass/Vol] 0.88 mg/dL 0.55-1.02 [facility] Comment on above: The validity of the calculated GFR & GFRAA in patients over 70 years has not been determined. Clinical correlation is essential. Serum or plasma urea nitroge n measurement (mass/volume)Ordered By: Dr. Gibson on 11-01-2022 Urea nitrogen [Mass/Vol] 24 mg/dL 04-24 [facility] Serum or plasma urea nitroge n measurement (mass/volume)Ordered By: Dr. Fabian on 11-01-2022 Urea nitrogen [Mass/Vol] 17 mg/dL 04-24 [facility] Thin prep Papanicolaou smear with manual screeningOrdered By: Dr. Gibson on 11-01-2022 Thin prep Papanicolaou smear with manual screening 9 5- [facility] Thin prep Papanicolaou smear with manual screeningOrdered By: Dr. Fabian on 11-01-2022 Thin prep Papanicolaou smear with manual screening 16 U/L 15-37 [facility] Thin prep Papanicolaou smear with manual screening 7 5-15 [facility] Absolute lymphocyte countOrd ered By: Dr. Moyer on 07-07-2022 Lymphocytes Auto (Unsp spec) [#/Vol] 1.18 10*3/uL 0.83-4.51 [facility] Basophil percentageOrdered B y: Dr. Moyer on 07-07-2022 Basophil percentage 0-5 SEEN /hpf 0-5 [facility] Basophils/100 WBC (Bld) 0.6 % 0-1 [facility] Chloride [Moles/Vol] 94 mmol/L 98-107 [facility] Eosinophils/100 WBC (Bld) 0.9 % 0-5 [facility] Glucose [Mass/Vol] 120 mg/dL 74-106 [facility] Comment on above: Fasting Glucose resu lt from 100 to 125 mg/dL suggests IMPAIRED HOMEOSTASIS per A.D.A. criteria. Neutrophils (Bld) [#/Vol] 4.3 10*3/uL 2.0-7.7 [facility] Neutrophils/100 WBC (Bld) 64.3 % 47-70 [facility] Potassium [Moles/Vol] 3.4 mmol/L 3.5-5.1 [facility] Sodium [Moles/Vol] 131 mmol/L 136-145 [facility] WBC (Bld) [#/Vol] 6.6 10*3/uL 4.4-11.0 [facility] Bilirubin Test strip Ql (U)O rdered By: Dr. Moyer on 07-07-2022 Bilirubin Ql (U) Negative Negative [facility] Blood erythrocytes count (nu mber/volume)Ordered By: Dr. Moyer on 07-07-2022 RBC (Bld) [#/Vol] 4.51 10*6/uL 4.2-5.4 [facility] Blood hemoglobin measurement (mass/volume)Ordered By: Dr. Moyer on 07-07-2022 Hemoglobin (Bld) [Mass/Vol] 14.0 g/dL 12.0-15. 0 [facility] Blood lymphocytes/100 leukoc ytesOrdered By: Dr. Moyer on 07-07-2022 Lymphocytes/100 WBC (Bld) 17.9 % 19-41 [facility] Blood monocytes/100 leukocyt esOrdered By: Dr. Moyer on 07-07-2022 Monocytes/100 WBC (Bld) 16.1 % 0-10 [facility] Blood platelet mean volumeOr dered By: Dr. Moyer on 07-07-2022 Platelet mean volume (Bld) [Entitic vol] 9.6 fL 6.2-12.0 [facility] Determination of erythrocyte mean corpuscular volume (MCV)Ordered By: Dr. Moyer on 07-07-2022 MCV (RBC) [Entitic vol] 92.2 fL 81-99 [facility] Hematocrit Auto (Bld) [Volum e fraction]Ordered By: Dr. Moyer on 07-07-2022 Hematocrit (Bld) [Volume fraction] 41.6 % 37-47 [facility] Ketones Test strip Ql (U)Ord ered By: Dr. Moyer on 07-07-2022 Ketones Ql (U) Negative Negative [facility] Laboratory - Chemistry and C hemistry - challengeOrdered By: Dr. Moyer on 07-07-2022 CO2 [Moles/Vol] 29.0 mmol/L 21.0-32.0 [facility] Urea nitrogen/Creatinine [Mass ratio] 13.0 mg/mg 10-20 [facility] Laboratory - Hematology and Cell countsOrdered By: Dr. Moyer on 07-07-2022 Erythrocyte distribution width (RBC) [Entitic vol] 40.0 fL 35.1-43.9 [facility] Erythrocyte distribution width (RBC) [Ratio] 11.9 % 11.6-14.6 [facility] Immature granulocytes/100 WBC (Bld) 0.200 % 0.0-0.9 [facility] Comment on above: IG% - Immature Granu locytes (promyelocytes, myelocytes and metamyelocytes) > 1% indicates that a LEFT SHIFT is Present. MCH (RBC) [Entitic mass] 31.0 pg 27.0-32.0 [facility] Nucleated RBC/100 WBC (Bld) [Ratio] 0 % 0-5 [facility] MCHC Auto (RBC) [Mass/Vol]Or dered By: Dr. Moyer on 07-07-2022 MCHC (RBC) [Mass/Vol] 33.7 g/dL 32-36 [facility] Mucus LM Ql (Urine sed)Order ed By: Dr. Moyer on 07-07-2022 Mucus Ql (Urine sed) 0 SEEN /hpf [facility] Nitrite Test strip Ql (U)Ord ered By: Dr. Moyer on 09-30-2022 Nitrite Ql (U) Negative Negative [facility] No Panel InformationOrdered By: Dr. Moyer on 07-07-2022 Estimated Creatinine Clearance Calc 34.64 ml/min [facility] Estimated GFR (MDRD) Amer 91 mL/min >60 [facility] Comment on above: GFR Calc Estimated GFR (MDRD) Non-Af Amer 76 mL/min >60 [facility] Comment on above: Non- GFR Calc Platelets bldOrdered By: Dr. Moyer on 07-07-2022 Platelets (Bld) [#/Vol] 225 10*3/uL 150-450 [facility] Protein Test strip Ql (U)Ord ered By: Dr. Moyer on 07-07-2022 Protein Ql (U) 30 mg/dl Negative [facility] Serum or plasma calcium alissa urement (mass/volume)Ordered By: Dr. Moyer on 07-07-2022 Calcium [Mass/Vol] 8.8 mg/dL 8.5-10.1 [facility] Serum or plasma creatinine m easurement (mass/volume)Ordered By: Dr. Moyer on 07-07-2022 Creatinine [Mass/Vol] 0.77 mg/dL 0.55-1.02 [facility] Comment on above: The validity of the calculated GFR & GFRAA in patients over 70 years has not been determined. Clinical correlation is essential. Serum or plasma urea nitroge n measurement (mass/volume)Ordered By: Dr. Moyer on 07-07-2022 Urea nitrogen [Mass/Vol] 10 mg/dL 7-18 [facility] Squamous epithelial cells de tection in urine sediment by light microscopyOrdered By: Dr. Moyer on 07-07-2022 Epithelial cells.squamous LM Ql (Urine sed) 0-5 SEEN /hpf 5-10 [facility] Thin prep Papanicolaou smear with manual screeningOrdered By: Dr. Moyer on 07-07-2022 Thin prep Papanicolaou smear with manual screening 8 5-15 [facility] Urine blood detectionOrdered By: Dr. Moyer on 07-07-2022 RBC Ql (U) 25 /ul Negative [facility] RBC Ql (U) 0-5 SEEN /hpf 0-5 [facility] Urine clarityOrdered By: Dr. Moyer on 07-07-2022 Clarity (U) Clear Clear [facility] Urine color determinationOrd ered By: Dr. Moyer on 07-07-2022 Color (U) Yellow Yellow [facility] Urine glucose detectionOrder ed By: Dr. Moyer on 07-07-2022 Glucose Ql (U) Normal mg/dl Normal [facility] Urine leukocyte esterase det ection by dipstickOrdered By: Dr. Moyer on 07-07-2022 Leukocyte esterase Test strip Ql (U) 100 /ul Negative [facility] Urine pHOrdered By: Dr. Karri benito on 07-07-2022 pH (U) 7.0 [pH] 5.0 - 8.0 [facility] Urine sediment bacteria coun t by microscopy (number/high power field)Ordered By: Dr. Moyer on 07-07-2022 Bacteria LM.HPF (Urine sed) [#/Area] 2 /[HPF] None Seen [facility] Urine specific gravity measu rementOrdered By: Dr. Moyer on 07-07-2022 Specific gravity (U) [Rel density] 1.010 1.002-1.03 0 [facility] Urobilinogen Auto test strip Ql (U)Ordered By: Dr. Moyer on 07-07-2022 Urobilinogen Ql (U) Normal mg/dl Normal [facility] Laboratory - Chemistry and C hemistry - challengeon 07-05-2022 Bilirubin Ql (U) Negative [facility] Glucose Ql (U) Negative [facility] Ketones Ql (U) Negative [facility] pH (U) 5.0 [pH] [facility] Specific gravity (U) [Rel density] 1.010 [facility] Urobilinogen (U) [Mass/Vol] Negative [facility] Laboratory - Hematology and Cell countson 07-05-2022 Hemoglobin Ql (U) Negative [facility] Laboratory - Specimen inform ationon 07-05-2022 Clarity (U) Clear [facility] Color (U) Yellow [facility] Laboratory - Urinalysison Nitrite Ql (U) Negative [facility] Protein Ql (U) Negative [facility] No Panel Informationon 07-05 Urine Leukocytes Negatve [facility] Urine Non-Hemolyzed Blood Negative [facility] Laboratory - Microbiology an d Antimicrobial susceptibilityon 06-08-2022 SARS-CoV-2 (COVID-19) RNA HAZEL+probe Ql (Unsp spec) Not detected Not Detect [facility] Work Phone: Comment on above: Normal Reference [...] Liam 05-10-2022 CNPN Telephone (FPWASAUL) DEA MERRITT ([id number]) 1935 F Date Time Provider Department 05/10/22 HARRIS MOTA During your visit today, we recorded the following information about you: Neli Moreland 05/10/2022 4:17 PM Signed Received labs from [facility]. Placed in provider's inbox for review. [...] Comments: Mouth swelling and blurry vision. STATINS ([id number] REDUCTAS*10/18/2009 5 - Intolerance Comments: Joint pain/swelling/elevated liver enzymes TURMERIC 09/23/2020 8 - GI Upset VENOM-WASP 06/02/2021 7 - Swelling Date Reviewed: 02/24/2022 Reviewed by: Paulina Santos LPN - Fully Assessed Reason for Visit: Outside Lab Results [753] Cmt: [facility] Prescriptions as of 05/10/2022 - rivaroxaban [...] Status:Closed by NELI MORELAND on 05/10/22 Normal [facility] Basophil percentageon 2021 Basophil percentage Not Reportable [facility] Work Phone: CNPAva 05-08-2022 LAYO Telephone (YING) DEA MERRITT ([id number]) 1935 F Date Time Provider Department 05/08/22 HARRIS MOTA During your visit today, we recorded the following information about you: Neli Moreland 05/08/2022 2:03 PM Signed Received labs from [facility]. Placed in provider's inbox for review. [...] Comments: Mouth swelling and blurry vision. STATINS ([id number] REDUCTAS*10/18/2009 5 - Intolerance Comments: Joint pain/swelling/elevated liver enzymes TURMERIC 09/23/2020 8 - GI Upset VENOM-WASP 06/02/2021 7 - Swelling Date Reviewed: 02/24/2022 Reviewed by: Paulina Santos LPN - Fully Assessed Reason for Visit: Outside Lab Results [753] Cmt: [facility] Prescriptions as of 05/08/2022 - rivaroxaban [...] Status:Closed by NELI MORELAND on 05/08/22 Normal [facility] Erythrocyte sedimentation ra herve 05-08-2022 ESR (Bld) [Velocity] 9 mm/h 0-30 [facility] Work Phone: Laboratory - Chemistry and C hemistry - challengeon 05-08-2022 Cobalamin (Vitamin B12) [Mass/Vol] 549 pg/mL 211-911 [facility] Work Phone: No Panel Informationon 05-08 Anti-Nuclear Antibody Screen Negative Negative [facility] Work Phone: Comment on above: Performed at: [address] [id number] Director: Mick Bradley PhD, Phone: [phone] [employer]rome[employer] B Antibody Not Reportable [facility] Work Phone: [employer] Antibody Not Reportable [facility] Work Phone: Serum DNA double strand anti body assay (units/volume)on 05-08-2022 DNA double strand Ab Qn (S) Not Reportable [facility] Work Phone: Serum Kerry-1 antibody assay (u nits/volume)on 05-08-2022 Kerry-1 extractable nuclear Ab Qn (S) Not Reportable [facility] Work Phone: Serum Scl-70 extractable nuc lear antibody assay (units/volume)on 05-08-2022 SCL-70 extractable nuclear Ab Qn (S) Not Reportable [facility] Work Phone: Serum Benito extractable nucl ear antibody detectionon 05-08-2022 Benito extractable nuclear Ab Ql (S) Not Reportable [facility] Work Phone: Serum cyclic citrullinated p eptide IgG antibody assay (units/volume)on 05-08-2022 Cyclic citrullinated peptide IgG Qn 6 units 0-19 [facility] Work Phone: Comment on above: Negative <20 Weak po sitive 20 - 39 Moderate positive 40 - 59 Strong positive >59Performed at: [facility] [id number] [place], [place] [id number] Director: Payam Ervin MD, Phone: [phone] Serum or plasma C reactive p rotein measurement (mass/volume)on 05-08-2022 CRP [Mass/Vol] mg/L 0.0-3.0 [facility] Work Phone: Comment on above: C-Reactive Protein ( CRP) provides useful information for thediagnosis, therapy and monitoring of inflammatory processesand associated diseases. For the evaluation of Relative Riskfor Cardiovascular Disease, a High Sensitivity CRP (HSCRP)should be ordered. CBC,PLATELETSon 02-17-2022 Hematocrit (Bld) [Volume fraction] 39.7 % Normal 34.9-44.3 [facility] Comment on above: Performed By: #### HESHAM RODARTE, C7ED #### [place] [facility] (DEFAULT) [address] [place] [phone] Hemoglobin (Bld) [Mass/Vol] 13.1 g/dL Normal 11.4-15. 2 [facility] Comment on above: Performed By: #### HESHAM RODARTE C7ED #### [place] [facility] (DEFAULT) [address] [place] [address]117 MCV (RBC) [Entitic vol] 93.4 fL Normal 79.6-97.7 O [facility] Comment on above: Performed By: #### HESHAM RODARTE C7ED #### [place] [facility] (DEFAULT) [address] [place] [address] 17202 Mean Cell Hgb 30.8 pg Normal 25.9-33.9 [facility] Comment on above: Performed By: #### HESHAM RODARTE C7ED #### [place] [facility] (DEFAULT) [address] [place] [address]3038 Mean Cell Hgb Conc 33.0 g/dL Normal 31.4-35.9 [facility] Comment on above: Performed By: #### HESHAM RODARTE C7ED #### [place] [facility] (DEFAULT) [address] [place] [address] 14175 Platelet mean volume (Bld) [Entitic vol] 10.4 fL Normal 8.5-12.2 [facility] Comment on above: Performed By: #### Rubén BOSE LABWILLI, C7ED #### [place] [facility] (DEFAULT) [address] [place] [phone] Platelets (Bld) [#/Vol] 254 10*3/uL Normal 150-393 [facility] Comment on above: Performed By: #### H JUICE, LABHSTIFFANIE1, C7ED #### [facility] (DEFAULT) [address] [place] [address] 34136 RBC (Bld) [#/Vol] 4.25 10*6/uL Normal 3.91-5.04 [facility] Comment on above: Performed By: #### H JUICE, LABWILLI, C7ED #### [facility] (DEFAULT) [address] [place] [address] 49175 RBC Distribution 12.6 % Normal 10.8-14.9 [facility] Comment on above: Performed By: #### Rubén BOSE LABWILLI, C7ED #### [facility] (DEFAULT) [address] [place] [address] 16936 WBC (Bld) [#/Vol] 6.60 10*3/uL Normal 3.99-11.19 [facility] Comment on above: Performed By: #### H JUICE, LABWILLI, C7ED #### [facility] (DEFAULT) [address] [place] [address]81 Erythrocyte distribution width (RBC) [Ratio] 12.6 % 10.8 - 14.9 % [facility] Hematocrit (Bld) [Volume fraction] 39.7 % 34.9 - 44.3 % [facility] Hemoglobin (Bld) [Mass/Vol] 13.1 g/dL 11.4 - 15.2 g/dL [facility] Interpretation and review of laboratory results Normal [facility] MCH (RBC) [Entitic mass] 30.8 pg 25. 9 - 33.9 pg [facility] MCHC (RBC) [Mass/Vol] 33.0 g/dL 31.4 - 35.9 g/dL [facility] MCV (RBC) [Entitic vol] 93.4 fL 79.6 - 97.7 fL [facility] Platelet mean volume (Bld) [Entitic vol] 10.4 fL 8.5 - 12.2 fL [facility] Platelets (Bld) [#/Vol] 254 10*3/uL 150 - 393 K/uL [facility] RBC (Bld) [#/Vol] 4.25 10*6/uL [facility] WBC (Bld) [#/Vol] 6.60 10*3/uL 3.99 - 11.19 K/uL [facility] CHEM 7 (LYTES,BUN,CREA,GLUC) on 02-17-2022 Anion gap [Moles/Vol] 15 mmol/L Normal 7-17 [facility] Comment on above: Performed By: #### C HM7 #### [facility] (DEFAULT) [address] [address] Chloride [Moles/Vol] 107 mmol/L Normal 98-108 [facility] Comment on above: Performed By: #### C HM7 #### [facility] (DEFAULT) [address] [address] CO2 [Moles/Vol] 22 mmol/L Normal 21-31 [facility] Comment on above: Performed By: #### C HM7 #### [facility] (DEFAULT) [address] [address] Creatinine [Mass/Vol] 0.73 mg/dL Normal 0.50-1.20 [facility] Comment on above: Performed By: #### C HM7 #### [facility] (DEFAULT) [address] [address] GFR/1.73 sq M.predicted among non-blacks MDRD (S/P/Bld) [Vol rate/Area] 81 mL/min/{1.73_m2} Normal >=60 [facility] Comment on above: Result Comment: Repo rted eGFR is based on the CKD-EPI 2020 equation using creatinine, age, and sex. Performed By: #### C HM7 #### [facility] (DEFAULT) [address] [address] Glucose [Mass/Vol] 90 mg/dL Normal 70-99 [facility] Comment on above: Performed By: #### C HM7 #### [facility] (DEFAULT) [address] [place] [address] Osmolality [Osmolality] 294 mosm/kg Normal 278-305 [facility] Comment on above: Performed By: #### C HM7 #### [facility] (DEFAULT) [address] [place] [address]16 Potassium [Moles/Vol] 4.0 mmol/L Normal 3.5-5.0 [facility] Comment on above: Performed By: #### C HM7 #### [facility] (DEFAULT) [address] [place] [address] 11341 Sodium [Moles/Vol] 140 mmol/L Normal 135-145 [facility] Comment on above: Performed By: #### C HM7 #### [facility] (DEFAULT) [address] [place] [address] 22274 Urea nitrogen [Mass/Vol] 18 mg/dL Normal 7-25 [facility] Comment on above: Performed By: #### C HM7 #### [facility] (DEFAULT) [address] [place] [address]06 Urea nitrogen/Creatinine [Mass ratio] 25 mg/mg Normal [facility] Comment on above: Performed By: #### C HM7 #### [facility] (DEFAULT) [address] [place] [address] Anion gap [Moles/Vol] 15 mmol/L 7 - 17 mmol/L [facility] Chloride [Moles/Vol] 107 mmol/L 98 - 10 8 mmol/L [facility] CO2 [Moles/Vol] 22 mmol/L 21 - 31 mmol/L [facility] Creatinine [Mass/Vol] 0.73 mg/dL 0.50 - 1.20 mg/dL [facility] GFR/1.73 sq M.predicted CKD-EPI (S/P/Bld) [Vol rate/Area] 81 >=60 mL/min/1.7 3m2 [facility] Comment on above: Reported eGFR is bas ed on the CKD-EPI 2020 equation using creatinine, age, and sex. Glucose [Mass/Vol] 90 mg/dL 70 - 99 mg/dL [facility] Osmolality Calc [[facility]olality] [facility] Potassium [Moles/Vol] 4.0 mmol/L 3.5 - 5.0 mmol/L [facility] Sodium [Moles/Vol] 140 mmol/L 135 - 145 mmol/L [facility] Urea nitrogen [Mass/Vol] 18 mg/dL 7 - 25 mg/dL [facility] Urea nitrogen/Creatinine [Mass ratio] 25 mg/mg [place] [facility] Procedure Ordered By: Mary Wall on 02-17-2022 Ao peak matilda 1.05 m/s [facility] Work Phone: AV LVOT peak gradient 4 mmHg [facility] Work Phone: AV peak gradient 4 mmHG [facility] Work Phone: AV regurgitation pressure 1/2 time 671.00 ms [facility] Work Phone: AV Velocity Ratio 0.97 [facility] Work Phone: CARMELINA (continuity Vmax) 2.70 cm2 [facility] Work Phone: CARMELINA index (continuity Vmax) 1.80 m/s [facility] Work Phone: Body surface area Derived from formula 1.5 m2 [facility] Work Phone: DI (Vmax) 0.97 [facility] Work Phone: E wave decelartion time 188.10 msec [facility] Work Phone: EST RAP 8.00 mmHg [facility] Work Phone: EST RVSP 30 mmHg [facility] Work Phone: FS 34 % 28 - 44 % [facility] Work Phone: IVC ostium 1.29 cm [facility] Work Phone: IVS 0.78 cm [facility] Work Phone: LA ESV BP (MOD) 119 mL [facility] Work Phone: LA ESV BP (MOD) index 79 mL/m2 [facility] Work Phone: LA ESV SP 2CH (MOD) 130 mL [facility] Work Phone: LA ESV SP 4CH (MOD) 107 mL [facility] Work Phone: [facility]: LV Mass Index 46.4 g/m2 [facility] Work [facility]: LV RWT 0.42 [facility] Work Phone: LVIDD 3.50 cm [facility] Work Phone: LVIDS 2.30 cm [facility] Work Phone: LVOT area 2.77 cm2 [facility] Work Phone: LVOT diameter 1.88 cm [facility] Work Phone: LVOT peak matilda 1.02 m/s [facility] Work Phone: MV pk E matilda 1.03 m[facility]s [facility]: [facility] PV PK MATILDA 0.65 m/s [facility] Work Phone: PW 0.73 cm [facility] Work Phone: RA vol index 4CH (MOD) 64.00 mL/m2 [facility] Work Phone: Right atrium volume 4 chamber method of disks 96 mL [facility] Work Phone: RV Area diastolic 14.48 cm2 [facility] Work Phone: RV Area systolic 9.57 cm2 [facility]: RV basal diam 4.21 [facility] Work Phone: RV Fractional area change 33.9 % [facility] Work Phone: RV long diam 5.10 cm [facility] Work Phone: RV mid diam 2.52 cm [facility] Work Phone: RV S' 12.16 cm/s [facility] Work Phone: [facility]OT peak [facility]: RVOT peak matilda 0.61 m/s [facility] Work Phone: TAPSE 1.85 cm [facility] Work Phone: TR pk grad 22 mmHg [facility] Work Phone: TR pk matilda 2.35 m/s [facility] Work Phone: TV rest pulmonary artery pressure 27.07 mmHg [facility] Work Phone: [facility] Work Phone: Cardiac echo study Procedure [...] echocardiography study was performed. Imaging system used: Siving Egil Kvaleberg. [facility] Radiology Study observation (narrative) [facility] ECHOCARDIOGRAMon 02-17-2022 Echocardiography ? Cardiac rhythm [...] shunt seen with color Doppler. Facility [facility] Patient Information Patient Name Dea Merritt Legal [...] Role Read Date Mary Wall MD Test [employer], Echo [place] 02/17/2022 Left Heart Measurements LV - Systole [...] 30 mmHg (more content not included)... Normal [facility] EXTRA MICROon 02-17-2022 [facility] MR Brain WO contraston 02-17 IMPRESSION: 1. [...] probably due to small vessel ischemic disease. [facility] Radiology Study observation (narrative) [facility] MR Brain WO contrastOrdered By: Marisol Osman on 02-17-2022 [facility] Work Phone: MRI BRAIN WITHOUT CONTRASTon [...] due to small vessel ischemic disease. Normal [facility] CBC,PLATELETSon 02-16-2022 Hematocrit (Bld) [Volume fraction] 42.2 % Normal 34.9-44.3 [facility] Comment on above: Performed By: #### H [facility] #### [facility] (DEFAULT) [address] [address] Hemoglobin (Bld) [Mass/Vol] 13.6 g/dL Normal 11.4-15. 2 [facility] Comment on above: Performed By: #### H [facility] #### [facility] (DEFAULT) [address] [address] MCV (RBC) [Entitic vol] 93.0 fL Normal 79.6-97.7 O [facility] Comment on above: Performed By: #### H EMOGC #### [facility] (DEFAULT) [address] [address] Mean Cell Hgb 30.0 pg Normal 25.9-33.9 [facility] Comment on above: Performed By: #### H EMOGC #### [facility] (DEFAULT) [address] [address] Mean Cell Hgb Conc 32.2 g/dL Normal 31.4-35.9 [facility] Comment on above: Performed By: #### H EMOGC #### [facility] (DEFAULT) [address] [address] Platelet mean volume (Bld) [Entitic vol] 10.1 fL Normal 8.5-12.2 [facility] Comment on above: Performed By: #### H EMOGC #### [facility] (DEFAULT) [address] [address] Platelets (Bld) [#/Vol] 257 10*3/uL Normal 150-393 [facility] Comment on above: Performed By: #### H EMOGC #### [facility] (DEFAULT) [address] [address] RBC (Bld) [#/Vol] 4.54 10*6/uL Normal 3.91-5.04 [facility] Comment on above: Performed By: #### H EMOGC #### [facility] (DEFAULT) [address] [address] RBC Distribution 12.6 % Normal 10.8-14.9 [facility] Comment on above: Performed By: #### H EMOGC #### [facility] (DEFAULT) [address] [address] WBC (Bld) [#/Vol] 7.07 10*3/uL Normal 3.99-11.19 [facility] Comment on above: Performed By: #### H EMOGC #### [facility] (DEFAULT) [address] [place] [address] Erythrocyte distribution width (RBC) [Ratio] 12.6 % 10.8 - 14.9 % [facility] Hematocrit (Bld) [Volume fraction] 42.2 % 34.9 - 44.3 % [facility] Hemoglobin (Bld) [Mass/Vol] 13.6 g/dL 11.4 - 15.2 g/dL [facility] Interpretation and review of laboratory results Normal [facility] MCH (RBC) [Entitic mass] 30.0 pg 25. 9 - 33.9 pg [facility] MCHC (RBC) [Mass/Vol] 32.2 g/dL 31.4 - 35.9 g/dL [facility] MCV (RBC) [Entitic vol] 93.0 fL 79.6 - 97.7 fL [facility] Platelet mean volume (Bld) [Entitic vol] 10.1 fL 8.5 - 12.2 fL [facility] Platelets (Bld) [#/Vol] 257 10*3/uL 150 - 393 K/uL [facility] RBC (Bld) [#/Vol] 4.54 10*6/uL [facility] WBC (Bld) [#/Vol] 7.07 10*3/uL 3.99 - 11.19 K/uL [facility] CHEM 7 (LYTES,BUN,CREA,GLUC) on 02-16-2022 Anion gap [Moles/Vol] 14 mmol/L Normal 7-17 [facility] Comment on above: Performed By: #### H FP, LABHSTI1, C7ED #### [facility] (DEFAULT) [address] [place] [address] Chloride [Moles/Vol] 105 mmol/L Normal 98-108 [facility] Comment on above: Performed By: #### H FP, LABHSTI1, C7ED #### [facility] (DEFAULT) [address] [place] [address] CO2 [Moles/Vol] 24 mmol/L Normal 21-31 [facility] Comment on above: Performed By: #### H HESHAM BOSE C7ED #### [facility] (DEFAULT) [address] [place] [address] Creatinine [Mass/Vol] 0.87 mg/dL Normal 0.50-1.20 [facility] Comment on above: Performed By: #### H HESHAM BOSE C7ED #### [facility] (DEFAULT) [address] [place] [address] GFR/1.73 sq M.predicted among non-blacks MDRD (S/P/Bld) [Vol rate/Area] 66 mL/min/{1.73_m2} Normal >=60 [facility] Comment on above: Result Comment: Repo rted eGFR is based on the CKD-EPI 2020 equation using creatinine, age, and sex. Performed By: #### H HESHAM BOSE C7ED #### [facility] (DEFAULT) [address] [place] [address] Glucose [Mass/Vol] 121 mg/dL High 70-99 [facility] Comment on above: Performed By: #### HESHAM RODARTE C7ED #### [facility] (DEFAULT) [address] [place] [address] Osmolality [Osmolality] 294 mosm/kg Normal 278-305 [facility] Comment on above: Performed By: #### HESHAM RODARTE C7ED #### [facility] (DEFAULT) [address] [place] [address] Potassium [Moles/Vol] 3.4 mmol/L Low 3.5-5.0 [facility] Comment on above: Performed By: #### HESHAM RODARTE C7ED #### [facility] (DEFAULT) [address] [place] [address] Sodium [Moles/Vol] 140 mmol/L Normal 135-145 [facility] Comment on above: Performed By: #### H JUICE, LABHSTI1, C7ED #### [facility] (DEFAULT) [address] [place] [address] Urea nitrogen [Mass/Vol] 15 mg/dL Normal 7-25 [facility] Comment on above: Performed By: #### H FP, LABHSTI1, C7ED #### [facility] (DEFAULT) [address] [place] [address] Urea nitrogen/Creatinine [Mass ratio] 17 mg/mg Normal [facility] Comment on above: Performed By: #### H JUICE, LABTI1, C7ED #### [facility] (DEFAULT) [address] [place] [address] Anion gap [Moles/Vol] 14 mmol/L 7 - 17 mmol/L [facility] Chloride [Moles/Vol] 105 mmol/L 98 - 10 8 mmol/L [facility] CO2 [Moles/Vol] 24 mmol/L 21 - 31 mmol/L [facility] Creatinine [Mass/Vol] 0.87 mg/dL 0.50 - 1.20 mg/dL [facility] GFR/1.73 sq M.predicted CKD-EPI (S/P/Bld) [Vol rate/Area] 66 >=60 mL/min/1.7 3m2 [facility] Comment on above: Reported eGFR is bas ed on the CKD-EPI 2020 equation using creatinine, age, and sex. Glucose [Mass/Vol] 121 mg/dL High 70 - 99 mg/dL [facility] Osmolality Calc [Osmolality] 294 [facility] Potassium [Moles/Vol] 3.4 mmol/L Low 3.5 - 5.0 mmol/L [facility] Sodium [Moles/Vol] 140 mmol/L 135 - 145 mmol/L [facility] Urea nitrogen [Mass/Vol] 15 mg/dL 7 - 25 mg/dL [facility] Urea nitrogen/Creatinine [Mass ratio] 17 mg/mg [facility] CONTINUOUS CARDIAC MONITORIN G STRIPon 02-16-2022 [facility] CONTINUOUS CARDIAC MONITORIN G STRIPOrdered By: Unassigned Pacs on 02-16-2022 [facility] Work Phone: CT CEREBRAL PERFUSION ANALYS [...] Ayala on 02/16/2022 12:11 AM . Normal [facility] IMPRESSION: Area of large mismatch perfusion abnormality [...] Brett Ayala on 02/16/2022 12:11 AM . [facility] CT CEREBRAL PERFUSION ANALYS ISOrdered By: Brett Ayala on 02-16-2022 [facility] Work Phone: CT HEAD WITHOUT CONTRASTon [...] hemorrhage or acute large territory infarct. Normal [facility] CT Head WO contraston 2021 IMPRESSION: No [...] intracranial hemorrhage or acute large territory infarct. [facility] HEMOGLOBIN [id number] By: Duarte Garibay on 02-16-2022 Average glucose Estimated from glycated hemoglobin (Bld) [Mass/Vol] 131 mg/dL [facility] HbA1c (Bld) [Mass fraction] 6.2 % High 4.7 - 5.6 % [facility] Interpretation and review of laboratory results Abnormal [facility] HEMOGLOBIN A1Con 02-16-2022 Glucose [Mass/Vol] 131 mg/dL Normal [facility] Comment on above: Performed By: #### H HESHAM BOSE C7ED #### [facility] (DEFAULT) [address] [place] [address] HbA1c (Bld) [Mass fraction] 6.2 % High 4.7-5.6 [facility] Comment on above: Performed By: #### H HESHAM BOSE C7ED #### [facility] (DEFAULT) [address] [address] HEPATIC FUNCTION PANELon Albumin [Mass/Vol] 3.9 g/dL Normal 3.5-5.0 [facility] Comment on above: Performed By: #### H HESHAM BOSE C7ED #### [facility] (DEFAULT) [address] [place] [address] ALP [Catalytic activity/Vol] 54 U/L Normal 32-126 [facility] Comment on above: Performed By: #### H HESHAM BOSE, C7ED #### [facility] (DEFAULT) [address] [place] [address] ALT [Catalytic activity/Vol] 23 U/L Normal 9-48 [facility] Comment on above: Performed By: #### H HESHAM BOSE C7ED #### [facility] (DEFAULT) [address] [place] [address] AST [Catalytic activity/Vol] 24 U/L Normal 10-39 [facility] Comment on above: Performed By: #### H HESHAM BOSE C7ED #### [facility] (DEFAULT) [address] [place] [address] Bilirubin [Mass/Vol] 0.6 mg/dL Normal <1.5 [facility] Comment on above: Performed By: #### H HESHAM BOSE C7ED #### [facility] (DEFAULT) [address] [place] [address] Bilirubin.indirect [Mass/Vol] 0.1 mg/dL Normal <0.3 [facility] Comment on above: Performed By: #### H HESHAM BOSE C7ED #### [facility] (DEFAULT) [address] [place] [address] Protein [Mass/Vol] 6.7 g/dL Normal 6.4-8.3 [facility] Comment on above: Performed By: #### H HESHAM BOSE C7ED #### [facility] (DEFAULT) [address] [place] [address] Albumin [Mass/Vol] 3.9 g/dL 3.5 - 5.0 g/dL [facility] ALP [Catalytic activity/Vol] 54 U/L 32 - 126 U/L [facility] ALT [Catalytic activity/Vol] 23 U/L 9 - 48 U/L [facility] AST [Catalytic activity/Vol] 24 U/L 10 - 39 U/L [facility] Bilirubin [Mass/Vol] 0.6 mg/dL <1.5 [facility] Bilirubin.direct [Mass/Vol] 0.1 mg/dL <0.3 [facility] Protein [Mass/Vol] 6.7 g/dL 6.4 - 8.3 g/dL [facility] LIPID PANEL WITH REFLEX TO M GUERLINE LDLon 02-16-2022 Calculated LDL Cholesterol 187 mg/dL High 0-99 [facility] Comment on above: Result Comment: [<10 0 mg/dL: Optimal] [100-129 mg/dL: Near Optimal] [130-159 mg/dL: Borderline High] [160-189 mg/dL: High] [>189 mg/dL: Very High] Performed By: #### H JUICE, LABHSTI1, C7ED #### [facility] (DEFAULT) [address] [address] Cholesterol [Mass/Vol] 285 mg/dL High <200 [facility] Comment on above: Result Comment: [<20 0 mg/dL: Desirable] [200-239 mg/dL: Borderline High] [>239 mg/dL: High] Performed By: #### H JUICE, LABHSTI1, C7ED #### [facility] (DEFAULT) [address] [place] [address] Cholesterol in HDL [Mass/Vol] 71 mg/dL Normal >=40 [facility] Comment on above: Result Comment: [<40 mg/dL: Low (High Risk)] [>59 mg/dL: High (Low Risk)] Performed By: #### H JUICE, LABHSTI1, C7ED #### [facility] (DEFAULT) [address] [place] [address] Non HDL Cholesterol 214 mg/dL High <130 [facility] Comment on above: Performed By: #### H JUICE, LABHSTI1, C7ED #### [facility] (DEFAULT) [address] [place] [address] Total Cholesterol/HDL Ratio 4.0 Normal <4.5 [facility] Comment on above: Performed By: #### Rubén BOSE, CATE1, C7ED #### [facility] (DEFAULT) [address] [place] [address] Triglyceride [Mass/Vol] 137 mg/dL Normal <150 O [facility] Comment on above: Result Comment: [<15 0 mg/dL: Desirable] [150-199 mg/dL: Borderline] [200-499 mg/dL: High] [>500 mg/dL: Very High] Performed By: #### Rubén BOSE, HESHAM, C7ED #### [facility] (DEFAULT) [address] [place] [address] Cholesterol [Mass/Vol] 285 mg/dL High <200 [facility] Comment on above: [<200 mg/dL: Desirab le] [200-239 mg/dL: Borderline High] [>239 mg/dL: High] Cholesterol in HDL [Mass/Vol] 71 mg/dL >=40 [facility] Comment on above: [<40 mg/dL: Low (Hig h Risk)] [>59 mg/dL: High (Low Risk)] Cholesterol in HDL [Mass/Vol] 214 mg/dL High <130 [facility] Cholesterol in LDL [Mass/Vol] 187 mg/dL High 0 - 99 mg/dL [facility] Comment on above: [<100 mg/dL: Optimal ] [100-129 mg/dL: Near Optimal] [130-159 mg/dL: Borderline High] [160-189 mg/dL: High] [>189 mg/dL: Very High] Cholesterol.total/Cholester ol in HDL [Mass ratio] 4.0 {ratio} <4.5 [facility] Triglyceride [Mass/Vol] 137 mg/dL <150 [facility] Comment on above: [<150 mg/dL: Desirab le] [150-199 mg/dL: Borderline] [200-499 mg/dL: High] [>500 mg/dL: Very High] LT BLUE TOP TUBEon 2 [facility] MAGNESIUMon 02-16-2022 Magnesium [Mass/Vol] 1.9 mg/dL Normal 1.6-2.6 [facility] Comment on above: Performed By: #### H , LABHSTI1, C7ED #### [facility] (DEFAULT) [address] [address] Magnesium [Mass/Vol] 1.9 mg/dL 1.6 - 2 .6 mg/dL [facility] No Panel Informationon 02-16 Interpretation and review of laboratory results Abnormal [facility] Interpretation and review of laboratory results Normal [facility] TOXICOLOGY SCREEN URINE - UD RGOrdered By: Nathalia Nguyen on 02-16-2022 Barbiturates Ql (U) Negative Cutoff: 200 ng/mL [facility] Cannabinoids Screen Ql (U) Negative C utoff: 50 ng/mL [facility] Drugs identified Screen Nom (U) Negative Negative [facility] Interpretation and review of laboratory results Normal [facility] For Medical Purposes Only. Nonforensic screen results are considered presumptive and no confirmatory testing will follow. Drugs are detected by immunoassay or Liquid Chromatography Mass Spectrometry (LC-MS/MS). The LC-MS/MS test was developed and its performance characteristics determined by the Toxicology Laboratory at [facility]. It has not been cleared or approved [...] Alprazolam(50), Amitriptyline(50), Amphetamine(250), Atenolol(500),Benzoyle cgonine(50), Buprenorphine(100), Bupropion(25),Caffeine (90604),Chlordiazepoxi de(50), Chlorpheniramine(100), Chlorpromazine(50), Citalopram(100), Clonazepam(200), Cocaine(25),Codeine(20 0), [...] Tramadol(50), Trazodone(25), Triazolam(100), Trifluoperazine (100),Venlafaxine(50), Verapamil(100), Zolpidem(200) [facility] TOXICOLOGY SCREEN URINE - UD RGon 02-16-2022 Barbiturates Negative Normal Cutoff: 200 ng/mL [facility] Comment on above: Order Comment: For M edical Purposes Only. Nonforensic screen results are considered presumptive and no confirmatory testing will follow. Drugs are detected by immunoassay or Liquid Chromatography Mass Spectrometry (LC-MS/MS). The LC-MS/MS test was developed and its performance characteristics determined by the Toxicology Laboratory at [facility]. It has not been cleared or approved [...] (200), Alphahydrozyalprazolam(200), Alprazolam(50), Amitriptyline(50), Amphetamine(250), Atenolol(500),Benzoylecgonine(50), Buprenorphine(100), Bupropion(25),Caffeine(20741),Chlordiazepoxide(50), Chlorpheniramine(100), Chlorpromazine(50), Citalopram(100), Clonazepam(200), Cocaine(25),Codeine(200), Cotinine(500),Desipramine(50), Desmethyldoxepin(100), [...] Performed By: #### U DRG #### [facility] (DEFAULT) [address] [place] [address] Cannabinoids Screen Ql (U) Negative Normal C utoff: 50 ng/mL [facility] Comment on above: Order Comment: For M edical Purposes Only. Nonforensic screen results are considered presumptive and no confirmatory testing will follow. Drugs are detected by immunoassay or Liquid Chromatography Mass Spectrometry (LC-MS/MS). The LC-MS/MS test was developed and its performance characteristics determined by the Toxicology Laboratory at [facility]. It has not been cleared or approved [...] (200), Alphahydrozyalprazolam(200), Alprazolam(50), Amitriptyline(50), Amphetamine(250), Atenolol(500),Benzoylecgonine(50), Buprenorphine(100), Bupropion(25),Caffeine(73346),Chlordiazepoxide(50), Chlorpheniramine(100), Chlorpromazine(50), Citalopram(100), Clonazepam(200), Cocaine(25),Codeine(200), Cotinine(500),Desipramine(50), Desmethyldoxepin(100), [...] Performed By: #### U DRG #### [facility] (DEFAULT) [address] [place] [address] Drugs Detected Urine Tox Negative Normal Negative [facility] Comment on above: Order Comment: For M edical Purposes Only. Nonforensic screen results are considered presumptive and no confirmatory testing will follow. Drugs are detected by immunoassay or Liquid Chromatography Mass Spectrometry (LC-MS/MS). The LC-MS/MS test was developed and its performance characteristics determined by the Toxicology Laboratory at [facility]. It has not been cleared or approved [...] (200), Alphahydrozyalprazolam(200), Alprazolam(50), Amitriptyline(50), Amphetamine(250), Atenolol(500),Benzoylecgonine(50), Buprenorphine(100), Bupropion(25),Caffeine(98609),Chlordiazepoxide(50), Chlorpheniramine(100), Chlorpromazine(50), Citalopram(100), Clonazepam(200), Cocaine(25),Codeine(200), Cotinine(500),Desipramine(50), Desmethyldoxepin(100), [...] Performed By: #### U DRG #### [facility] [facility] (DEFAULT) [address] [place] [address] [id number] URINE DIPSTICK; REFLEX MICRO SCOPY; REFLEX CULTURE PERFORMABLEon 02-16-2022 Appearance (U) Clear Normal Clear [facility] Comment on above: Performed By: #### H FP, LABHSTI1, C7ED #### [facility] (DEFAULT) [address] [place] [address] [phone] Blood Urine Negative Normal Negative [facility] Comment on above: Performed By: #### H FP, LABHSTI1, C7ED #### [facility] (DEFAULT) [address] [place] [address] [phone] Color (U) Yellow Normal Yellow [facility] Comment on above: Performed By: #### H FP, LABHSTI1, C7ED #### [facility] (DEFAULT) [address] [place] [address] 58408 Glucose Ql (U) Negative Normal Negative [facility] Comment on above: Performed By: #### H FP, LABHSTI1, C7ED #### [facility] (DEFAULT) [address] [place] [address] 59082 Ketones Ql (U) Negative Normal Negative [facility] Comment on above: Performed By: #### H FP, LABHSTI1, C7ED #### [facility] (DEFAULT) [address] [place] [address] 15049 Leukocyte esterase Test strip Ql (U) Negative Normal Negative [facility] Comment on above: Performed By: #### H FP, LABHSTI1, C7ED #### [facility] (DEFAULT) [address] [place] [address] 30370 Nitrites Urine Negative Normal Negative [facility] Comment on above: Performed By: #### H JUICE, LABLOU, C7ED #### [facility] (DEFAULT) [address] [place] [address] 87234 pH (U) 5.5 [pH] Normal 5.0-7.0 [facility] Comment on above: Performed By: #### H JUICE, LABLOU, C7ED #### U [facility] (DEFAULT) [address] [place] [address] 89673 Protein Urine Negative Normal Negative [facility] Comment on above: Performed By: #### H JUICE LABLOU, C7ED #### U [facility] (DEFAULT) [address] [place] [address] 19380 Specific [place] Urine <=1.005 Normal 1.001 -1.03 5 [facility] Comment on above: Performed By: #### H JUICE LABLOU, C7ED #### U [facility] (DEFAULT) [address] [place] [address] 83075 Urobilinogen Urine 0.2 E.U./dL Normal 0.2 E.U/dL, 1.0 E.U/dL [facility] Comment on above: Performed By: #### H , LABLOU, C7ED #### [facility] (DEFAULT) [address] [place] [address] 17471 Appearance (U) Clear Clear [facility] Color (U) Yellow Yellow U [facility] Glucose Test strip (U) [Mass/Vol] Negative Negative [facility] Interpretation and review of laboratory results Normal [facility] Ketones (U) [Mass/Vol] Negative Negative [facility] Leukocyte esterase Test strip Ql (U) Negative Negative [facility] Nitrite Ql (U) Negative Negative [facility] pH (U) 5.5 [pH] 5.0 - 7.0 [facility] Protein (U) [Mass/Vol] Negative Negative [facility] RBC (U) [#/Vol] Negative Negative [facility] Specific gravity (U) [Rel density] <=1.005 [facility] Urobilinogen (U) [Mass/Vol] 0.2 E.U./dL 0.2 E.U/dL, 1.0 E.U/dL [facility] Absolute lymphocyte counton 02-15-2022 Lymphocytes Auto (Unsp spec) [#/Vol] 1.82 10*3/uL 0.83-4.51 [facility] Work Phone: Basophil percentageon 2021 Basophil percentage 0 SEEN /hpf 0-5 [facility] Work Phone: Basophils/100 WBC (Bld) 1.2 % 0-1 [facility] Work Phone: Chloride [Moles/Vol] 105 mmol/L 98-107 [facility] Work Phone: Eosinophils/100 WBC (Bld) 3.0 % 0-5 [facility] Work Phone: Glucose [Mass/Vol] 104 mg/dL 74-106 [facility] Work Phone: Comment on above: Fasting Glucose resu lt from 100 to 125 mg/dL suggests IMPAIRED HOMEOSTASIS per A.D.A. criteria. Neutrophils (Bld) [#/Vol] 4.7 10*3/uL 2.0-7.7 [facility] Work Phone: Neutrophils/100 WBC (Bld) 62.4 % 47-70 [facility] Work Phone: Potassium [Moles/Vol] 3.9 mmol/L 3.5-5.1 [facility] Work Phone: Sodium [Moles/Vol] 138 mmol/L 136-145 [facility] Work Phone: WBC (Bld) [#/Vol] 7.6 10*3/uL 4.4-11.0 [facility] Work Phone: Bilirubin Test strip Ql (U)o n 02-15-2022 Bilirubin Ql (U) Negative Negative [facility] Work Phone: Blood erythrocytes count (nu mber/volume)on 02-15-2022 RBC (Bld) [#/Vol] 4.41 10*6/uL 4.2-5.4 [facility] Work Phone: Blood hemoglobin measurement (mass/volume)on 02-15-2022 Hemoglobin (Bld) [Mass/Vol] 13.7 g/dL 12.0-15. 0 [facility] Work Phone: Blood lymphocytes/100 leukoc yteson 02-15-2022 Lymphocytes/100 WBC (Bld) 24.0 % 19-41 [facility] Work Phone: Blood monocytes/100 leukocyt eson 02-15-2022 Monocytes/100 WBC (Bld) 9.1 % 0-10 [facility] Work Phone: Blood platelet mean volumeon 02-15-2022 Platelet mean volume (Bld) [Entitic vol] 10.1 fL 6.2-12.0 [facility] Work Phone: CBC AND ELECTRONIC DIFFon Basophils (Bld) [#/Vol] 0.09 10*3/uL Normal 0.00-0.15 [facility] Comment on above: Performed By: #### L [id number] #### [facility] (DEFAULT) [address] [place] [address] 50296 Basophils/100 WBC (Bld) 1.4 % Normal O [facility] Comment on above: Performed By: #### L [id number] #### U [facility] (DEFAULT) [address] [place] [address] 89337 DIFF STATUS Electronic Differential Normal [facility] Comment on above: Performed By: #### L [id number] #### [facility] (DEFAULT) [address] [place] [address] Eosinophils (Bld) [#/Vol] 0.20 10*3/uL Normal 0.00-0.4 2 [facility] Comment on above: Performed By: #### L [id number] #### [facility] (DEFAULT) [address] [address] Eosinophils/100 WBC (Bld) 3.1 % Normal [facility] Comment on above: Performed By: #### L AB980 #### [facility] (DEFAULT) [address] [address] Hematocrit (Bld) [Volume fraction] 43.8 % Normal 34.9-44.3 [facility] Comment on above: Performed By: #### L [id number] #### [facility] (DEFAULT) [address] [address] Hemoglobin (Bld) [Mass/Vol] 13.8 g/dL Normal 11.4-15. 2 [facility] Comment on above: Performed By: #### L AB980 #### [facility] (DEFAULT) [address] [address] Immature Grans % 0.2 % Normal [facility] Comment on above: Performed By: #### L AB980 #### [facility] (DEFAULT) [address] [address] Immature Grans Absolute <0.04 Normal <=0.09 O [facility] Comment on above: Performed By: #### L AB980 #### [facility] (DEFAULT) [address] [address] Lymphocytes (Bld) [#/Vol] 2.51 10*3/uL Normal 1.16-3.5 1 [facility] Comment on above: Performed By: #### L AB980 #### [facility] (DEFAULT) [address] [address] Lymphocytes/100 WBC (Bld) 38.6 % Normal [facility] Comment on above: Performed By: #### L AB980 #### [facility] (DEFAULT) [address] [address] MCV (RBC) [Entitic vol] 96.1 fL Normal 79.6-97.7 O [facility] Comment on above: Performed By: #### L AB980 #### [facility] (DEFAULT) [address] [address] Mean Cell Hgb 30.3 pg Normal 25.9-33.9 [facility] Comment on above: Performed By: #### L AB980 #### [facility] (DEFAULT) [address] [address] Mean Cell Hgb Conc 31.5 g/dL Normal 31.4-35.9 [facility] Comment on above: Performed By: #### L AB980 #### [facility] (DEFAULT) [address] [address] Monocytes (Bld) [#/Vol] 0.51 10*3/uL Normal 0.22-0.87 [facility] Comment on above: Performed By: #### L AB980 #### U [facility] (DEFAULT) [address] [address] Monocytes/100 WBC (Bld) 7.8 % Normal [facility] Comment on above: Performed By: #### L AB980 #### [facility] (DEFAULT) [address] [address] Nucleated RBC 0.0 /100 WBC Normal <=0.2 [facility] Comment on above: Performed By: #### L AB980 #### U [facility] (DEFAULT) [address] [address] Platelet mean volume (Bld) [Entitic vol] 10.0 fL Normal 8.5-12.2 [facility] Comment on above: Performed By: #### L AB980 #### U [facility] (DEFAULT) [address] [address] Platelets (Bld) [#/Vol] 250 10*3/uL Normal 150-393 [facility] Comment on above: Performed By: #### L AB980 #### [facility] (DEFAULT) [address] [place] [address] 44180 RBC (Bld) [#/Vol] 4.56 10*6/uL Normal 3.91-5.04 [facility] Comment on above: Performed By: #### L AB980 #### [facility] (DEFAULT) [address] [place] [address] 16022 RBC Distribution 12.9 % Normal 10.8-14.9 [facility] Comment on above: Performed By: #### L [id number] #### [facility] (DEFAULT) [address] [place] [address] 11391 Segs + Bands Auto 48.9 % Normal [facility] Comment on above: Performed By: #### L [id number] #### [facility] (DEFAULT) [address] [place] [address] 53173 Segs + Bands,Absolute Auto 3.18 K/uL Normal 1.64-7.28 [facility] Comment on above: Performed By: #### L [id number] #### [facility] (DEFAULT) [address] [place] [address] 51442 WBC (Bld) [#/Vol] 6.50 10*3/uL Normal 3.99-11.19 [facility] Comment on above: Performed By: #### L [id number] #### [facility] (DEFAULT) [address] [place] [address] 65272 Basophils (Bld) [#/Vol] 0.09 10*3/uL 0.00 - 0.15 K/uL [facility] Basophils/100 WBC (Bld) 1.4 % [facility] Differential cell count method Nom (Bld) Electronic Differential [facility] Eosinophils (Bld) [#/Vol] 0.20 10*3/uL 0. 00 - 0.42 K/uL [facility] Eosinophils/100 WBC (Bld) 3.1 % [facility] Erythrocyte distribution width (RBC) [Ratio] 12.9 % 10.8 - 14.9 % [facility] Hematocrit (Bld) [Volume fraction] 43.8 % 34.9 - 44.3 % [facility] Hemoglobin (Bld) [Mass/Vol] 13.8 g/dL 11.4 - 15.2 g/dL [facility] Immature granulocytes (Bld) [#/Vol] 10*3/uL <=0.09 K/uL [facility] Immature granulocytes/100 WBC (Bld) 0.2 % [facility] Lymphocytes (Bld) [#/Vol] 2.51 10*3/uL 1. 16 - 3.51 K/uL [facility] Lymphocytes/100 WBC (Bld) 38.6 % [facility] MCH (RBC) [Entitic mass] 30.3 pg 25. 9 - 33.9 pg [facility] MCHC (RBC) [Mass/Vol] 31.5 g/dL 31.4 - 35.9 g/dL [facility] MCV (RBC) [Entitic vol] 96.1 fL 79.6 - 97.7 fL [facility] Monocytes (Bld) [#/Vol] 0.51 10*3/uL 0.22 - 0.87 K/uL [facility] Monocytes/100 WBC (Bld) 7.8 % [facility] Neutrophils (Bld) [#/Vol] 3.18 10*3/uL 1. 64 - 7.28 K/uL [facility] Nucleated RBC/100 WBC (Bld) [Ratio] 0.0 % <=0.2 /100 WBC [facility] Platelet mean volume (Bld) [Entitic vol] 10.0 fL 8.5 - 12.2 fL [facility] Platelets (Bld) [#/Vol] 250 10*3/uL 150 - 393 K/uL [facility] RBC (Bld) [#/Vol] 4.56 10*6/uL [facility] Segmented neutrophils/100 WBC (Bld) 48.9 % [facility] WBC (Bld) [#/Vol] 6.50 10*3/uL 3.99 - 11.19 K/uL [facility] CHM 7 - EDon 02-15-2022 Anion gap [Moles/Vol] 13 mmol/L Normal 7-17 [facility] Comment on above: Performed By: #### H HESHAM BOSE, C7ED #### [facility] (DEFAULT) [address] [place] [address] 31757 Chloride [Moles/Vol] 102 mmol/L Normal 98-108 [facility] Comment on above: Performed By: #### HESHAM RODARTE, WilmaED #### [facility] (DEFAULT) [address] [place] [address] 81838 CO2 [Moles/Vol] 25 mmol/L Normal 21-31 [facility] Comment on above: Performed By: #### HESHAM RODARTE C7ED #### [facility] (DEFAULT) [address] [place] [address] 79175 Creatinine [Mass/Vol] 0.73 mg/dL Normal 0.50-1.20 [facility] Comment on above: Performed By: #### HESHAM RODARTE, C7ED #### [facility] (DEFAULT) [address] [place] [address] 34442 GFR/1.73 sq M.predicted among non-blacks MDRD (S/P/Bld) [Vol rate/Area] 81 mL/min/{1.73_m2} Normal >=60 [facility] Comment on above: Result Comment: Repo rted eGFR is based on the CKD-EPI 2020 equation using creatinine, age, and sex. Performed By: #### H HESHAM BOSE, C7ED #### [facility] (DEFAULT) [address] [place] [address] 71964 Glucose [Mass/Vol] 94 mg/dL Normal 70-99 [facility] Comment on above: Performed By: #### HESHAM RODARTE C7ED #### [facility] (DEFAULT) [address] [place] [address] 92935 Osmolality [Osmolality] 286 mosm/kg Normal 278-305 [facility] Comment on above: Performed By: #### HESHAM RODARTE, C7ED #### [facility] (DEFAULT) [address] [place] [address] 34423 Potassium [Moles/Vol] 3.6 mmol/L Normal 3.5-5.0 [facility] Comment on above: Performed By: #### HESHAM RODARTE C7ED #### [facility] (DEFAULT) [address] [place] [address] 79950 Sodium [Moles/Vol] 136 mmol/L Normal 135-145 [facility] Comment on above: Performed By: #### HESHAM RODARTE C7ED #### [facility] (DEFAULT) [address] [place] [address] 80645 Urea nitrogen [Mass/Vol] 17 mg/dL Normal 7-25 [facility] Comment on above: Performed By: #### HESHAM RODARTE C7ED #### U [facility] (DEFAULT) [address] [place] [address] 94207 Urea nitrogen/Creatinine [Mass ratio] 23 mg/mg Normal [facility] Comment on above: Performed By: #### HESHAM RODARTE C7ED #### [facility] (DEFAULT) [address] [place] [address] 25865 Anion gap [Moles/Vol] 13 mmol/L 7 - 17 mmol/L [facility] Chloride [Moles/Vol] 102 mmol/L 98 - 10 8 mmol/L [facility] CO2 [Moles/Vol] 25 mmol/L 21 - 31 mmol/L [facility] Creatinine [Mass/Vol] 0.73 mg/dL 0.50 - 1.20 mg/dL [facility] GFR/1.73 sq M.predicted CKD-EPI (S/P/Bld) [Vol rate/Area] 81 >=60 mL/min/1.7 3m2 [facility] Comment on above: Reported eGFR is bas ed on the CKD-EPI 2020 equation using creatinine, age, and sex. Glucose [Mass/Vol] 94 mg/dL 70 - 99 mg/dL [facility] Osmolality Calc [Osmolality] 286 [facility] Potassium [Moles/Vol] 3.6 mmol/L 3.5 - 5.0 mmol/L [facility] Sodium [Moles/Vol] 136 mmol/L 135 - 145 mmol/L [facility] Urea nitrogen [Mass/Vol] 17 mg/dL 7 - 25 mg/dL [facility] Urea nitrogen/Creatinine [Mass ratio] 23 mg/mg [facility] CT CEREBRAL PERFUSION ANALYS Catie 02-15-2022 Radiology Study observation (narrative) [facility] CT Head WO contraston 2021 Radiology Study observation (narrative) [facility] Determination of erythrocyte mean corpuscular volume (MCV)on 02-15-2022 MCV (RBC) [Entitic vol] 93.2 fL 81-99 [facility] Work Phone: Glucose Glucometer (BldC) [M ass/Vol]on 02-15-2022 Glucose [Mass/Vol] 98 mg/dL 74-106 [facility] Work Phone: Comment on above: MANAGEMENT OF PATIEN T CARE PER NURSING PROTOCOL HEPATIC FUNCTION PANELon Albumin [Mass/Vol] 4.1 g/dL Normal 3.5-5.0 [facility] Comment on above: Performed By: #### HESHAM RODARTE C7ED #### [facility] (DEFAULT) [address] [place] [address] ALP [Catalytic activity/Vol] 56 U/L Normal 32-126 [facility] Comment on above: Performed By: #### HESHAM RODARTE, C7ED #### [facility] (DEFAULT) [address] [place] [address] 83138 ALT [Catalytic activity/Vol] 27 U/L Normal 9-48 [facility] Comment on above: Performed By: #### Rubén BOSE LABTIFFANIE1, C7ED #### U [facility] (DEFAULT) [address] [place] [address] 94026 AST [Catalytic activity/Vol] 30 U/L Normal 10-39 [facility] Comment on above: Performed By: #### Rubén BOSE LABTIFFANIE1, C7ED #### U [facility] (DEFAULT) [address] [place] [address] 56530 Bilirubin [Mass/Vol] 0.6 mg/dL Normal <1.5 [facility] Comment on above: Performed By: #### Rubén BOSE, LABHSTIFFANIE1, C7ED #### [facility] (DEFAULT) [address] [place] [address] 16438 Bilirubin.indirect [Mass/Vol] mg/dL Normal <0.3 [facility] Comment on above: Performed By: #### Rubén BOSE LABLOU, C7ED #### [facility] (DEFAULT) [address] [place] [address] 52433 Protein [Mass/Vol] 6.9 g/dL Normal 6.4-8.3 [facility] Comment on above: Performed By: #### Rubén BOSE LABHSTI1, C7ED #### [facility] (DEFAULT) [address] [place] [address] 40541 Albumin [Mass/Vol] 4.1 g/dL 3.5 - 5.0 g/dL [facility] ALP [Catalytic activity/Vol] 56 U/L 32 - 126 U/L [facility] ALT [Catalytic activity/Vol] 27 U/L 9 - 48 U/L [facility] AST [Catalytic activity/Vol] 30 U/L 10 - 39 U/L [facility] Bilirubin [Mass/Vol] 0.6 mg/dL <1.5 [facility] Bilirubin.direct [Mass/Vol] mg/dL <0.3 mg/ dL [facility] Protein [Mass/Vol] 6.9 g/dL 6.4 - 8.3 g/dL [facility] HIGH SENSITIVITY TROPONIN I - SINGLE ORDERon 02-15-2022 hs-Troponin I 7 ng/L Normal <34 [facility] Comment on above: Order Comment: Acute Coronary Syndrome (ACS): Initial Evaluation and Management: [email or web address] Performed By: #### H , LABHSTI1, C7ED #### [facility] (DEFAULT) [address] [place] [address] Interpretation and review of laboratory results Normal [facility] Troponin I.cardiac DL <= 0.01 ng/mL [Mass/Vol] 7 ng/L <34 [facility] Hematocrit Auto (Bld) [Volum e fraction]on 02-15-2022 Hematocrit (Bld) [Volume fraction] 41.1 % 37-47 [facility] Work Phone: INR in Blood by Coagulation assayon 02-15-2022 INR Coag (Bld) [Relative time] 1.1 {INR} [facility] Work Phone: Ketones Test strip Ql (U)on 02-15-2022 Ketones Ql (U) Negative Negative [facility] Work Phone: Laboratory - Chemistry and C hemistry - challengeon 02-15-2022 CO2 [Moles/Vol] 26.0 mmol/L 21.0-32.0 [facility] Work Phone: Urea nitrogen/Creatinine [Mass ratio] 28.5 mg/mg 10-20 [facility] Work Phone: Laboratory - Coagulationon 0 02-15-2022 aPTT Coag (Bld) [Time] 27.4 s 24.1-36.2 [facility] Work Phone: PT Coag (PPP) [Time] 13.7 s 11.7-14.9 [facility] Work Phone: Laboratory - Hematology and Cell countson 02-15-2022 Erythrocyte distribution width (RBC) [Entitic vol] 43.4 fL 35.1-43.9 [facility] Work Phone: Erythrocyte distribution width (RBC) [Ratio] 12.6 % 11.6-14.6 [facility] Work Phone: Immature granulocytes/100 WBC (Bld) 0.300 % 0.0-0.9 [facility] Work Phone: Comment on above: IG% - Immature Granu locytes (promyelocytes, myelocytes and metamyelocytes) > 1% indicates that a LEFT SHIFT is Present. MCH (RBC) [Entitic mass] 31.1 pg 27.0-32.0 [facility] Work Phone: Nucleated RBC/100 WBC (Bld) [Ratio] 0 % 0-5 [facility] Work Phone: MCHC Auto (RBC) [Mass/Vol]on 02-15-2022 MCHC (RBC) [Mass/Vol] 33.3 g/dL 32-36 [facility] Work Phone: Mucus LM Ql (Urine sed)on Mucus Ql (Urine sed) 0 SEEN /hpf [facility] Work Phone: Nitrite Test strip Ql (U)on 02-15-2022 Nitrite Ql (U) Negative Negative [facility] Work Phone: No Panel Informationon 02-15 Interpretation and review of laboratory results Normal [facility] Estimated Creatinine Clearance Calc 39.01 ml/min [facility] Work Phone: Estimated GFR (MDRD) Amer 87 mL/min >60 [facility] Work Phone: Comment on above: GFR Calc Estimated GFR (MDRD) Non-Af Amer 72 mL/min >60 [facility] Work Phone: Comment on above: Non- GFR Calc Troponin I High Sensitivity < 3 pg/mL 3.0-54.0 [facility] Work Phone: Comment on above: Please Note: New Sherry t Units and Gender Specific Reference Ranges. For more information see Policy Stat Procedure [place] High Sensitivity Troponin (TNIH) and attachments. PTINR-STROKEon 02-15-2022 INR Coag (PPP) [Relative time] 1.1 {INR} Normal 0.9-1.1 [facility] Comment on above: Performed By: #### P TISTR, PTT #### [facility] (DEFAULT) [address] [place] [id number] PT Coag (PPP) [Time] 14.0 s Normal 11.9-14.2 [facility] Comment on above: Performed By: #### P TISTR, PTT #### [facility] (DEFAULT) [address] [place] [id number] INR Coag (Bld) [Relative time] 1.1 {INR} [facility] Interpretation and review of laboratory results Normal [facility] PT Coag (PPP) [Time] 14.0 s [facility] PTTon 02-15-2022 aPTT Coag (Bld) [Time] 28.3 s Normal 24.0-34.3 [facility] Comment on above: Performed By: #### P TISTR, PTT #### [facility] (DEFAULT) [address] [place] [address] [id number] aPTT Coag (PPP) [Time] 28.3 s OS [facility] Platelets bldon 02-15-2022 Platelets (Bld) [#/Vol] 306 10*3/uL 150-450 [facility] Work Phone: Protein Test strip Ql (U)on 02-15-2022 Protein Ql (U) Negative Negative [facility] Work Phone: Serum or plasma calcium alissa urement (mass/volume)on 02-15-2022 Calcium [Mass/Vol] 9.2 mg/dL 8.5-10.1 [facility] Work Phone: Serum or plasma creatinine m easurement (mass/volume)on 02-15-2022 Creatinine [Mass/Vol] 0.81 mg/dL 0.55-1.02 [facility] Work Phone: Comment on above: The validity of the calculated GFR & GFRAA in patients over 70 years has not been determined. Clinical correlation is essential. Serum or plasma urea nitroge n measurement (mass/volume)on 02-15-2022 Urea nitrogen [Mass/Vol] 23 mg/dL 7-18 [facility] Work Phone: Squamous epithelial cells de tection in urine sediment by light microscopyon 02-15-2022 Epithelial cells.squamous LM Ql (Urine sed) 0 SEEN /hpf 5-10 [facility] Work Phone: Thin prep Papanicolaou smear with manual screeningon 02-15-2022 Thin prep Papanicolaou smear with manual screening 7 5-15 [facility] Work Phone: Urine blood detectionon 02-05 RBC Ql (U) Negative Negative [facility] Work Phone: RBC Ql (U) 0 SEEN /hpf 0-5 [facility] Work Phone: Urine clarityon 02-15-2022 Clarity (U) Clear Clear [facility] Work Phone: Urine color determinationon 02-15-2022 Color (U) Yellow Yellow [facility] Work Phone: Urine glucose detectionon Glucose Ql (U) Normal mg/dl Normal [facility] Work Phone: Urine leukocyte esterase det ection by dipstickon 02-15-2022 Leukocyte esterase Test strip Ql (U) Negative Negative [facility] Work Phone: Urine pHon 02-15-2022 pH (U) 6.5 [pH] 5.0 - 8.0 [facility] Work Phone: Urine sediment bacteria coun t by microscopy (number/high power field)on 02-15-2022 Bacteria LM.HPF (Urine sed) [#/Area] 0 /[HPF] None Seen [facility] Work Phone: Urine specific gravity measu rementon 02-15-2022 Specific gravity (U) [Rel density] 1.010 1.002-1.03 0 [facility] Work Phone: Urobilinogen Auto test strip Ql (U)on 02-15-2022 Urobilinogen Ql (U) Normal mg/dl Normal [facility] Work Phone: No Panel Informationon 10-28 Miscellaneous Test See comment [facility] Work Phone: Comment on above: Sent directly to [facility] facility per ordering physician. XR Lumbar spine 3 Viewson IMPRESSION: Demineralization and marked osteoarthritis. [employer] 7 And 8 Teacher: LORA Transcribe Date/Time: Aug 26 2020 9:06A Dictated by : HERNANDEZ ORR MD This examination was interpreted and the report reviewed and electronically signed by: HERNANDEZ ORR MD on Aug 26 2020 9:08AM [facility] OF RADIOLOGY * * *Final [...] interspace. IMPRESSION IMPRESSION: Demineralization and marked osteoarthritis. [employer] 7 And 8 Teacher: LORA Transcribe Date/Time: Aug 26 2020 9:06A Dictated by : HERNANDEZ ORR MD This examination was interpreted and the report reviewed and electronically signed by: HERNANDEZ ORR MD on Aug 26 2020 9:08AM EST [facility] Radiology Study observation (narrative) [facility] XR Lumbar spine 3 ViewsOrder ed By: [facility] Provider on 08-26-2020 [facility] Vital Signs Date Time Vital Sign Value Performing Clinician Facility 06-29-2025 10:06-0400 Body height 152.[address] Deepika Fabian MD Work Phone: [facility] 06-29-2025 10:06-0400 Body mass index (BMI) [Ratio] 21.1 kg/m2 Dr. Deepika Fabian MD Work Phone: [facility] 06-29-2025 10:06-0400 Body temperature 97.6 [degF] Dr. Deepika Fabian MD Work Phone: [facility] 06-29-2025 10:06-0400 Body weight 48.[address] Deepika Fabian MD Work Phone: [facility] 06-29-2025 10:06-0400 Diastolic blood pressure 80 mm[Hg] Dr. Deepika Fabian MD Work Phone: [facility] 06-29-2025 10:06-0400 Respiratory rate 16 /min Dr. Deepika Fabian MD Work Phone: [facility] 06-29-2025 10:06-0400 Systolic blood pressure 120 mm[Hg] Dr. Deepika Fabian MD Work Phone: [facility] 03-31-2025 08:09-0400 Body height 152.[address] Deepika Fabian MD Work Phone: [facility] 03-31-2025 08:09-0400 Body mass index (BMI) [Ratio] 20.9 kg/m2 Dr. Deepika Fabian MD Work Phone: [facility] 03-31-2025 08:09-0400 Body temperature 98 [degF] Dr. Deepika Fabian MD Work Phone: [facility] 03-31-2025 08:09-0400 Body weight 48.[address] Deepika Fabian MD Work Phone: [facility] 03-31-2025 08:09-0400 Diastolic blood pressure 78 mm[Hg] Dr. Deepika Fabian MD Work Phone: [facility] 03-31-2025 08:09-0400 Heart rate 66 /min Dr. Deepika Fabian MD Work Phone: [facility] 03-31-2025 08:09-0400 Respiratory rate 12 /min Dr. Deepika Fabian MD Work Phone: [facility] 03-31-2025 08:09-0400 SaO2% (BldA) [Mass fraction] 97 % Dr. Deepika Fabian MD Work Phone: [facility] 03-31-2025 08:09-0400 Systolic blood pressure 132 mm[Hg] Dr. Deepika Fabian MD Work Phone: [facility] 01-28-2025 13:56-0400 Body height 152.[address] Deepika Fabian MD Work Phone: [facility] 01-28-2025 13:56-0400 Body mass index (BMI) [Ratio] 21.2 kg/m2 Dr. Deepika Fabian MD Work Phone: [facility] 01-28-2025 13:56-0400 Body weight 49.[address] Deepika Fabian MD Work Phone: [facility] 01-28-2025 13:56-0400 Diastolic blood pressure 75 mm[Hg] Dr. Deepika Fabian MD Work Phone: [facility] 01-28-2025 13:56-0400 Heart rate 70 /min Dr. Deepika Fabian MD Work Phone: [facility] 01-28-2025 13:56-0400 Respiratory rate 18 /min Dr. Deepika Fabian MD Work Phone: [facility] 01-28-2025 13:56-0400 SaO2% (BldA) [Mass fraction] 97 % Dr. Deepika Fabian MD Work Phone: [facility] 01-28-2025 13:56-0400 Systolic blood pressure 121 mm[Hg] Dr. Deepika Fabian MD Work Phone: [facility] 01-28-2025 10:12-0400 Body mass index (BMI) [Ratio] 20.9 kg/m2 Dr. Deepika Fabian MD Work Phone: [facility] 01-28-2025 10:12-0400 Body temperature 97.9 [degF] Dr. Deepika Fabian MD Work Phone: [facility] 01-28-2025 10:12-0400 Body weight 48.[address] Deepika Fabian MD Work Phone: [facility] 01-28-2025 10:12-0400 Diastolic blood pressure 80 mm[Hg] Dr. Deepika Fabian MD Work Phone: [facility] 01-28-2025 10:12-0400 Heart rate 66 /min Dr. Deepika Fabian MD Work Phone: [facility] 01-28-2025 10:12-0400 Respiratory rate 16 /min Dr. Deepika Fabian MD Work Phone: [facility] 01-28-2025 10:12-0400 SaO2% (BldA) [Mass fraction] 97 % Dr. Deepika Fabian MD Work Phone: [facility] 01-28-2025 10:12-0400 Systolic blood pressure 120 mm[Hg] Dr. Deepika Fabian MD Work Phone: [facility] 11-13-2024 15:20-0500 Diastolic blood pressure 70 mm[Hg] Dr. Deepika Fabian MD Work Phone: [facility] 11-13-2024 15:20-0500 Systolic blood pressure 130 mm[Hg] Dr. Deepika Fabian MD Work Phone: [facility] 11-13-2024 15:18-0500 Body mass index (BMI) [Ratio] 21.4 kg/m2 Dr. Deepika Fabian MD Work Phone: [facility] 11-13-2024 15:18-0500 Body weight 49.[address] Deepika Fabian MD Work Phone: [facility] 11-13-2024 15:18-0500 Heart rate 69 /min Dr. Deepika Fabian MD Work Phone: [facility] 11-13-2024 15:18-0500 Respiratory rate 18 /min Dr. Deepika Fabian MD Work Phone: [facility] 11-13-2024 15:18-0500 SaO2% (BldA) [Mass fraction] 95 % Dr. Deepika Fabian MD Work Phone: [facility] 11-13-2024 09:58-0500 Body mass index (BMI) [Ratio] 21.7 kg/m2 Dr. Deepika Fabian MD Work Phone: [facility] 11-13-2024 09:58-0500 Body temperature 96.3 [degF] Dr. Deepika Fabian MD Work Phone: [facility] 11-13-2024 09:58-0500 Body weight 50.[address] Deepika Fabian MD Work Phone: [facility] 11-13-2024 09:58-0500 Diastolic blood pressure 58 mm[Hg] Dr. Deepika Fabian MD Work Phone: [facility] 11-13-2024 09:58-0500 Heart rate 60 /min Dr. Deepika Fabian MD Work Phone: [facility] 11-13-2024 09:58-0500 Respiratory rate 16 /min Dr. Deepika Fabian MD Work Phone: [facility] 11-13-2024 09:58-0500 Systolic blood pressure 104 mm[Hg] Dr. Deepika Fabian MD Work Phone: [facility] 09-29-2023 05:09-0500 Diastolic blood pressure 59 mm[Hg] Dr. Deepika Fabian Work Phone: [facility] 09-29-2023 05:09-0500 Heart rate 70 /min Dr. Deepika Fabian Work Phone: [facility] 09-29-2023 05:09-0500 Respiratory rate 20 /min Dr. Deepika Fabian Work Phone: [facility] 09-29-2023 05:09-0500 SaO2% (BldA) [Mass fraction] 97 % Dr. Deepika Fabian Work Phone: [facility] 09-29-2023 05:09-0500 Systolic blood pressure 146 mm[Hg] Dr. Deepika Fabian Work Phone: [facility] 09-29-2023 01:36-0500 Body height 154.[address] Deepika Fabian Work Phone: [facility] 09-29-2023 01:36-0500 Body mass index (BMI) [Ratio] 20.2 kg/m2 Dr. Deepika Fabian Work Phone: [facility] 09-29-2023 01:36-0500 Body temperature 98 [degF] Dr. Deepika Fabian Work Phone: [facility] 09-29-2023 01:36-0500 Body weight 48.[address] Deepika Fabian Work Phone: [facility] 09-13-2023 11:03-0500 Body temperature 97.9 [degF] Dr. Deepika Fabian Work Phone: [facility] 09-13-2023 11:03-0500 Diastolic blood pressure 75 mm[Hg] Dr. Deepika Fabian Work Phone: [facility] 09-13-2023 11:03-0500 Heart rate 77 /min Dr. Deepika Fabian Work Phone: [facility] 09-13-2023 11:03-0500 Respiratory rate 12 /min Dr. Deepika Fabian Work Phone: [facility] 09-13-2023 11:03-0500 SaO2% (BldA) [Mass fraction] 93 % Dr. Deepika Fabian Work Phone: [facility] 09-13-2023 11:03-0500 Systolic blood pressure 125 mm[Hg] Dr. Deepika Fabian Work Phone: [facility] 07-31-2023 09:57-0400 Body mass index (BMI) [Ratio] 20.7 kg/m2 Dr. Deepika Fabian Work Phone: [facility] 07-31-2023 09:57-0400 Body temperature 97.8 [degF] Dr. Deepika Fabian Work Phone: [facility] 07-31-2023 09:57-0400 Body weight 49.[address] Deepika Fabian Work Phone: [facility] 07-31-2023 09:57-0400 Diastolic blood pressure 60 mm[Hg] Dr. Deepika Fabian Work Phone: [facility] 07-31-2023 09:57-0400 Heart rate 46 /min Dr. Deepika Fabian Work Phone: [facility] 07-31-2023 09:57-0400 Respiratory rate 16 /min Dr. Deepika Fabian Work Phone: [facility] 07-31-2023 09:57-0400 SaO2% (BldA) [Mass fraction] 92 % Dr. Deepika Fabian Work Phone: [facility] 07-31-2023 09:57-0400 Systolic blood pressure 108 mm[Hg] Dr. Deepika Fabian Work Phone: [facility] 07-10-2023 09:07-0400 Body mass index (BMI) [Ratio] 20.4 kg/m2 Dr. Deepika Fabian Work Phone: [facility] 07-10-2023 09:07-0400 Body temperature 96.1 [degF] Dr. Deepika Fabian Work Phone: [facility] 07-10-2023 09:07-0400 Body weight 49.[address] Deepika Fabian Work Phone: [facility] 07-10-2023 09:07-0400 Diastolic blood pressure 72 mm[Hg] Dr. Deepika Fabian Work Phone: [facility] 07-10-2023 09:07-0400 Heart rate 80 /min Dr. Deepika Fabian Work Phone: [facility] 07-10-2023 09:07-0400 Respiratory rate 18 /min Dr. Deepika Fabian Work Phone: [facility] 07-10-2023 09:07-0400 SaO2% (BldA) [Mass fraction] 99 % Dr. Deepika Fabian Work Phone: [facility] 07-10-2023 09:07-0400 Systolic blood pressure 124 mm[Hg] Dr. Deepika Fabian Work Phone: [facility] 06-27-2023 11:20-0400 Body temperature 97.8 [degF] Dr. Deepika Fabian Work Phone: [facility] 06-27-2023 11:20-0400 Diastolic blood pressure 71 mm[Hg] Dr. Deepika Fabian Work Phone: [facility] 06-27-2023 11:20-0400 Heart rate 62 /min Dr. Deepika Fabian Work Phone: [facility] 06-27-2023 11:20-0400 Respiratory rate 14 /min Dr. Deepika Fabian Work Phone: [facility] 06-27-2023 11:20-0400 SaO2% (BldA) [Mass fraction] 94 % Dr. Deepika Fabian Work Phone: [facility] 06-27-2023 11:20-0400 Systolic blood pressure 150 mm[Hg] Dr. Deepika Fabian Work Phone: [facility] 04-17-2023 12:56-0400 Body height 154.[address] Deepika Fabian Work Phone: [facility] 04-17-2023 12:56-0400 Body mass index (BMI) [Ratio] 20.2 kg/m2 Dr. Deepika Fabian Work Phone: [facility] 04-17-2023 12:56-0400 Body temperature 96.4 [degF] Dr. Deepika Fabian Work Phone: [facility] 04-17-2023 12:56-0400 Body weight 48.[address] Deepika Fabian Work Phone: [facility] 04-17-2023 12:56-0400 Diastolic blood pressure 80 mm[Hg] Dr. Deepika Fabian Work Phone: [facility] 04-17-2023 12:56-0400 Heart rate 70 /min Dr. Deepika Fabian Work Phone: [facility] 04-17-2023 12:56-0400 Respiratory rate 18 /min Dr. Deepika Fabian Work Phone: [facility] 04-17-2023 12:56-0400 SaO2% (BldA) [Mass fraction] 95 % Dr. Deepika Fabian Work Phone: [facility] 04-17-2023 12:56-0400 Systolic blood pressure 122 mm[Hg] Dr. Deepika Fabian Work Phone: [facility] 03-15-2023 15:57-0400 Diastolic blood pressure 84 mm[Hg] Dr. Deepika Fabian Work Phone: [facility] 03-15-2023 15:57-0400 Systolic blood pressure 144 mm[Hg] Dr. Deepika Fabian Work Phone: [facility] 03-15-2023 15:02-0400 Body height 154.[address] Deepika Fabian Work Phone: [facility] 03-15-2023 15:02-0400 Body mass index (BMI) [Ratio] 20.9 kg/m2 Dr. Deepika Fabian Work Phone: [facility] 03-15-2023 15:02-0400 Body temperature 97.5 [degF] Dr. Deepika Fabian Work Phone: [facility] 03-15-2023 15:02-0400 Body weight 50.[address] Deepika Fabian Work Phone: [facility] 03-15-2023 15:02-0400 Heart rate 72 /min Dr. Deepika Fabian Work Phone: [facility] 03-15-2023 15:02-0400 Respiratory rate 14 /min Dr. Deepika Fabian Work Phone: [facility] 03-15-2023 15:02-0400 SaO2% (BldA) [Mass fraction] 96 % Dr. Deepika Fabian Work Phone: [facility] 03-01-2023 13:50-0400 Body mass index (BMI) [Ratio] 20.7 kg/m2 Dr. Deepika Fabian Work Phone: [facility] 03-01-2023 13:50-0400 Body temperature 97.5 [degF] Dr. Deepika Fabian Work Phone: [facility] 03-01-2023 13:50-0400 Body weight 49.[address] Deepika Fabian Work Phone: [facility] 03-01-2023 13:50-0400 Diastolic blood pressure 78 mm[Hg] Dr. Deepika Fabian Work Phone: [facility] 03-01-2023 13:50-0400 Heart rate 90 /min Dr. Deepika Fabian Work Phone: [facility] 03-01-2023 13:50-0400 Respiratory rate 16 /min Dr. Deepika Fabian Work Phone: [facility] 03-01-2023 13:50-0400 SaO2% (BldA) [Mass fraction] 92 % Dr. Deepika Fabian Work Phone: [facility] 03-01-2023 13:50-0400 Systolic blood pressure 126 mm[Hg] Dr. Deepika Fabian Work Phone: [facility] 02-13-2023 15:14-0400 Body temperature 98.4 [degF] Dr. Deepika Fabian Work Phone: [facility] 02-13-2023 15:14-0400 Diastolic blood pressure 98 mm[Hg] Dr. Deepika Fabian Work Phone: [facility] 02-13-2023 15:14-0400 Heart rate 96 /min Dr. Deepika Fabian Work Phone: [facility] 02-13-2023 15:14-0400 Respiratory rate 18 /min Dr. Deepika Fabian Work Phone: [facility] 02-13-2023 15:14-0400 SaO2% (BldA) [Mass fraction] 94 % Dr. Deepika Fabian Work Phone: [facility] 02-13-2023 15:14-0400 Systolic blood pressure 150 mm[Hg] Dr. Deepika Fabian Work Phone: [facility] 02-12-2023 14:12-0400 Inhaled oxygen flow rate 2 L/min Dr. Deepika Fabian Work Phone: [facility] 02-09-2023 11:44-0400 Body height 154.[address] Deepika Fabian Work Phone: [facility] 02-09-2023 11:44-0400 Body weight 51.[address] Deepika Fabian Work Phone: [facility] 02-08-2023 14:03-0400 Body mass index (BMI) [Ratio] 21.4 kg/m2 Dr. Deepika Fabian Work Phone: [facility] 01-01-2023 11:34-0400 Body mass index (BMI) [Ratio] 20.2 kg/m2 Dr. Deepika Fabian Work Phone: [facility] 01-01-2023 11:34-0400 Body temperature 97.4 [degF] Dr. Deepika Fabian Work Phone: [facility] 01-01-2023 11:34-0400 Body weight 50.[address] Deepika Fabian Work Phone: [facility] 01-01-2023 11:34-0400 Diastolic blood pressure 82 mm[Hg] Dr. Deepika Fabian Work Phone: [facility] 01-01-2023 11:34-0400 Heart rate 77 /min Dr. Deepika Fabian Work Phone: [facility] 01-01-2023 11:34-0400 Respiratory rate 16 /min Dr. Deepika Fabian Work Phone: [facility] 01-01-2023 11:34-0400 SaO2% (BldA) [Mass fraction] 96 % Dr. Deepika Fabian Work Phone: [facility] 01-01-2023 11:34-0400 Systolic blood pressure 144 mm[Hg] Dr. Deepika Fabian Work Phone: [facility] 11-10-2022 16:48-0500 Diastolic blood pressure 68 mm[Hg] Dr. Vamsi Mota Work Phone: [facility] 11-10-2022 16:48-0500 Heart rate 83 /min Dr. Vamsi Mota Work Phone: [facility] 11-10-2022 16:48-0500 Respiratory rate 17 /min Dr. Vamsi Mota Work Phone: [facility] 11-10-2022 16:48-0500 Systolic blood pressure 119 mm[Hg] Dr. Vamsi Mota Work Phone: [facility] 11-10-2022 12:39-0500 SaO2% (BldA) [Mass fraction] 96 % Dr. Vamsi Mota Work Phone: [facility] 11-10-2022 10:40-0500 Body height 154.[address] Vamsi Mota Work Phone: [facility] 11-10-2022 10:40-0500 Body mass index (BMI) [Ratio] 21.7 kg/m2 Dr. Vamsi Mota Work Phone: [facility] 11-10-2022 10:40-0500 Body temperature 97.1 [degF] Dr. Vamsi Mota Work Phone: [facility] 11-10-2022 10:40-0500 Body weight 52.[address] Vamsi Mota Work Phone: [facility] 11-04-2022 11:00-0500 Body height 154.[address] Deepika Fabian Work Phone: [facility] 11-04-2022 11:00-0500 Body mass index (BMI) [Ratio] 21.7 kg/m2 Dr. Deepika Fabian Work Phone: [facility] 11-04-2022 11:00-0500 Body temperature 98.2 [degF] Dr. Deepika Fabian Work Phone: [facility] 11-04-2022 11:00-0500 Body weight 52.[address] Deepika Fabian Work Phone: [facility] 11-04-2022 11:00-0500 Diastolic blood pressure 57 mm[Hg] Dr. Deepika Fabian Work Phone: [facility] 11-04-2022 11:00-0500 Heart rate 83 /min Dr. Deepika Fabian Work Phone: [facility] 11-04-2022 11:00-0500 Respiratory rate 17 /min Dr. Deepika Fabian Work Phone: [facility] 11-04-2022 11:00-0500 SaO2% (BldA) [Mass fraction] 98 % Dr. Deepika Fabian Work Phone: [facility] [facility] 11-04-2022 11:00-0500 Systolic blood pressure 105 mm[Hg] Dr. Deepika Fabian Work Phone: [facility] 11-01-2022 18:16-0500 Diastolic blood pressure 52 mm[Hg] Dr. Deepika Fabian Work Phone: [facility] 11-01-2022 18:16-0500 Heart rate 81 /min Dr. Deepika Fabian Work Phone: [facility] 11-01-2022 18:16-0500 Respiratory rate 20 /min Dr. Deepika Fabian Work Phone: [facility] 11-01-2022 18:16-0500 SaO2% (BldA) [Mass fraction] 97 % Dr. Deepika Fabian Work Phone: [facility] 11-01-2022 18:16-0500 Systolic blood pressure 117 mm[Hg] Dr. Deepika Fabian Work Phone: [facility] 11-01-2022 14:19-0500 Body height 157.[address] Deepika Fabian Work Phone: [facility] 11-01-2022 14:19-0500 Body mass index (BMI) [Ratio] 19 kg/m2 Dr. Deepika Fabian Work Phone: [facility] 11-01-2022 14:19-0500 Body temperature 97.7 [degF] Dr. Deepika Fabian Work Phone: [facility] 11-01-2022 14:19-0500 Body weight 47.[address] Deepika Fabian Work Phone: [facility] 11-01-2022 08:33-0500 Body temperature 96.8 [degF] Dr. Deepika Fabian Work Phone: [facility] 11-01-2022 08:33-0500 Body weight 49.[address] Deepika Fabian Work Phone: [facility] 11-01-2022 08:33-0500 Diastolic blood pressure 66 mm[Hg] Dr. Deepika Fabian Work Phone: [facility] 11-01-2022 08:33-0500 Heart rate 88 /min Dr. Deepika Fabian Work Phone: [facility] 11-01-2022 08:33-0500 Respiratory rate 18 /min Dr. Deepika Fabian Work Phone: [facility] 11-01-2022 08:33-0500 SaO2% (BldA) [Mass fraction] 100 % Dr. Deepika Fabian Work Phone: [facility] 11-01-2022 08:33-0500 Systolic blood pressure 104 mm[Hg] Dr. Deepika Fabian Work Phone: [facility] 08-29-2022 16:26-0500 Body temperature 97 [degF] Dr. Deepika Fabian Work Phone: [facility] 08-29-2022 16:26-0500 Body weight 52.[address] Deepika Fabian Work Phone: [facility] 08-29-2022 16:26-0500 Diastolic blood pressure 76 mm[Hg] Dr. Deepika Fabian Work Phone: [facility] 08-29-2022 16:26-0500 Heart rate 56 /min Dr. Deepika Fabian Work Phone: [facility] 08-29-2022 16:26-0500 Respiratory rate 18 /min Dr. Deepika Fabian Work Phone: [facility] 08-29-2022 16:26-0500 SaO2% (BldA) [Mass fraction] 99 % Dr. Deepika Fabian Work Phone: [facility] 08-29-2022 16:26-0500 Systolic blood pressure 116 mm[Hg] Dr. Deepika Fabian Work Phone: [facility] 08-23-2022 13:20-0500 Body mass index (BMI) [Ratio] 20.2 kg/m2 Dr. Deepika Fabian Work Phone: [facility] 08-23-2022 13:20-0500 Body weight 51.[address] Deepika Fabian Work Phone: [facility] 08-23-2022 13:20-0500 Diastolic blood pressure 68 mm[Hg] Dr. Deepika Fabian Work Phone: [facility] 08-23-2022 13:20-0500 Heart rate 82 /min Dr. Deepika Fabian Work Phone: [facility] 08-23-2022 13:20-0500 Respiratory rate 16 /min Dr. Deepika Fabian Work Phone: [facility] 08-23-2022 13:20-0500 Systolic blood pressure 144 mm[Hg] Dr. Deepika Fabian Work Phone: [facility] 07-12-2022 16:28-0400 Body mass index (BMI) [Ratio] 20.3 kg/m2 Dr. Deepika Fabian Work Phone: [facility] 07-12-2022 16:28-0400 Body temperature 98.1 [degF] Dr. Deepika Fabian Work Phone: [facility] 07-12-2022 16:28-0400 Body weight 52.[address] Deepika Fabian Work Phone: [facility] 07-12-2022 16:28-0400 Diastolic blood pressure 68 mm[Hg] Dr. Deepika Fabian Work Phone: [facility] 07-12-2022 16:28-0400 Heart rate 83 /min Dr. Deepika Fabian Work Phone: [facility] 07-12-2022 16:28-0400 Respiratory rate 14 /min Dr. Deepika Fabian Work Phone: [facility] 07-12-2022 16:28-0400 SaO2% (BldA) [Mass fraction] 99 % Dr. Deepika Fabian Work Phone: [facility] 07-12-2022 16:28-0400 Systolic blood pressure 112 mm[Hg] Dr. Deepika Fabian Work Phone: [facility] 07-07-2022 11:19-0400 Diastolic blood pressure 71 mm[Hg] Dr. Deepika Fabian Work Phone: [facility] 07-07-2022 11:19-0400 Heart rate 86 /min Dr. Deepika Fabian Work Phone: [facility] 07-07-2022 11:19-0400 Respiratory rate 17 /min Dr. Deepika Fabian Work Phone: [facility] 07-07-2022 11:19-0400 SaO2% (BldA) [Mass fraction] 95 % Dr. Deepika Fabian Work Phone: [facility] 07-07-2022 11:19-0400 Systolic blood pressure 127 mm[Hg] Dr. Deepika Fabian Work Phone: [facility] 07-07-2022 08:18-0400 Body temperature 97.9 [degF] Dr. Deepika Fabian Work Phone: [facility] 07-07-2022 08:15-0400 Body mass index (BMI) [Ratio] 21.3 kg/m2 Dr. Deepika Fabian Work Phone: [facility] 07-07-2022 08:15-0400 Body weight 54.[address] Deepika Fabian Work Phone: [facility] 07-05-2022 15:03-0400 Body mass index (BMI) [Ratio] 22.8 kg/m2 Dr. Deepika Fabian Work Phone: [facility] 07-05-2022 15:03-0400 Body temperature 99 [degF] Dr. Deepika Fabian Work Phone: [facility] 07-05-2022 15:03-0400 Body weight 53.[address] Deepika Fabian Work Phone: [facility] 07-05-2022 15:03-0400 Diastolic blood pressure 90 mm[Hg] Dr. Deepika Fabian Work Phone: [facility] 07-05-2022 15:03-0400 Heart rate 65 /min Dr. Deepika Fabian Work Phone: [facility] 07-05-2022 15:03-0400 Respiratory rate 18 /min Dr. Deepika Fabian Work Phone: [facility] 07-05-2022 15:03-0400 SaO2% (BldA) [Mass fraction] 95 % Dr. Deepika Fabian Work Phone: [facility] 07-05-2022 15:03-0400 Systolic blood pressure 162 mm[Hg] Dr. Deepika Fabian Work Phone: [facility] 06-08-2022 08:46-0400 Body height 152.[address] Vamsi Mota Work Phone: [facility] Work Phone: 06-08-2022 08:46-0400 Body mass index (BMI) [Ratio] 22.4 kg/m2 Dr. Vamsi Mota Work Phone: [facility] Work Phone: 06-08-2022 08:46-0400 Body temperature 98.4 [degF] Dr. Vamsi Mota Work Phone: [facility] Work Phone: 06-08-2022 08:46-0400 Body weight 52.[address] Vamsi Mota Work Phone: [facility] Work Phone: 06-08-2022 08:46-0400 Diastolic blood pressure 76 mm[Hg] Dr. Vamsi Mota Work Phone: [facility] Work Phone: 06-08-2022 08:46-0400 Heart rate 68 /min Dr. Vamsi Mota Work Phone: [facility] Work Phone: 06-08-2022 08:46-0400 Respiratory rate 14 /min Dr. Vamsi Mota Work Phone: [facility] Work Phone: 06-08-2022 08:46-0400 SaO2% (BldA) [Mass fraction] 95 % Dr. Vamsi Mota Work Phone: [facility] Work Phone: 06-08-2022 08:46-0400 Systolic blood pressure 130 mm[Hg] Dr. Vamsi Mota Work Phone: [facility] Work Phone: 05-25-2022 16:31-0400 Body mass index (BMI) [Ratio] 22.8 kg/m2 Dr. Vamsi Mota Work Phone: [facility] Work Phone: 05-25-2022 16:31-0400 Body temperature 98.4 [degF] Dr. Vamsi Mota Work Phone: [facility] Work Phone: 05-25-2022 16:31-0400 Body weight 53.[address] Vamsi Mota Work Phone: [facility] Work Phone: 05-25-2022 16:31-0400 Diastolic blood pressure 74 mm[Hg] Dr. Vamsi Mota Work Phone: [facility] Work Phone: 05-25-2022 16:31-0400 Heart rate 68 /min Dr. Vamsi Mota Work Phone: [facility] Work Phone: 05-25-2022 16:31-0400 Respiratory rate 14 /min Dr. Vamsi Mota Work Phone: [facility] Work Phone: 05-25-2022 16:31-0400 SaO2% (BldA) [Mass fraction] 99 % Dr. Vamsi Mota Work Phone: [facility] Work Phone: 05-25-2022 16:31-0400 Systolic blood pressure 136 mm[Hg] Dr. Vamsi Mota Work Phone: [facility] Work Phone: 05-04-2022 15:41-0400 Body height 152.[address] Vamsi Mota Work Phone: [facility] Work Phone: 05-04-2022 15:41-0400 Body mass index (BMI) [Ratio] 22 kg/m2 Dr. Vamsi Mota Work Phone: [facility] Work Phone: 05-04-2022 15:41-0400 Body temperature 98.6 [degF] Dr. Vamsi Mota Work Phone: [facility] Work Phone: 05-04-2022 15:41-0400 Body weight 51.[address] Vamsi Mota Work Phone: [facility] Work Phone: 05-04-2022 15:41-0400 Diastolic blood pressure 76 mm[Hg] Dr. Vamsi Mota Work Phone: [facility] Work Phone: 05-04-2022 15:41-0400 Heart rate 81 /min Dr. Vamsi Mota Work Phone: [facility] Work Phone: 05-04-2022 15:41-0400 Respiratory rate 14 /min Dr. Vamsi Mota Work Phone: [facility] Work Phone: 05-04-2022 15:41-0400 SaO2% (BldA) [Mass fraction] 97 % Dr. Vamsi Mota Work Phone: [facility] Work Phone: 05-04-2022 15:41-0400 Systolic blood pressure 136 mm[Hg] Dr. Vamsi Mota Work Phone: [facility] Work Phone: 03-02-2022 13:25-0400 Body height 152.[address] Vamsi Mota Work Phone: [facility] Work Phone: 03-02-2022 13:25-0400 Body mass index (BMI) [Ratio] 23 kg/m2 Dr. Vamsi Mota Work Phone: [facility] Work Phone: 03-02-2022 13:25-0400 Body temperature 97.9 [degF] Dr. Vamsi Mota Work Phone: [facility] Work Phone: 03-02-2022 13:25-0400 Body weight 53.[address] Vamsi Mota Work Phone: [facility] Work Phone: 03-02-2022 13:25-0400 Diastolic blood pressure 80 mm[Hg] Dr. Vamsi Mota Work Phone: [facility] Work Phone: 03-02-2022 13:25-0400 Heart rate 81 /min Dr. Vamsi Mota Work Phone: [facility] Work Phone: 03-02-2022 13:25-0400 Respiratory rate 16 /min Dr. Vamsi Mota Work Phone: [facility] Work Phone: 03-02-2022 13:25-0400 SaO2% (BldA) [Mass fraction] 99 % Dr. Vamsi Mota Work Phone: [facility] Work Phone: 03-02-2022 13:25-0400 Systolic blood pressure 118 mm[Hg] Dr. Vamsi Mota Work Phone: [facility] Work Phone: 02-24-2022 11:00-0400 Body height 152.4 cm Harris Mota MD Work Phone: [facility] 02-24-2022 11:00-0400 Body weight 52.48 kg Harris Mota MD Work Phone: [facility] 02-24-2022 11:00-0400 Diastolic blood pressure 68 mm[Hg] Harris Mota MD Work Phone: [facility] 02-24-2022 11:00-0400 Heart rate 69 /min Harris Mota MD Work Phone: [facility] 02-24-2022 11:00-0400 Systolic blood pressure 134 mm[Hg] Harris Mota MD Work Phone: [facility] 02-22-2022 11:37-0400 Body mass index (BMI) [Ratio] 21.7 kg/m2 Dr. Vamsi Mota Work Phone: [facility] Work Phone: 02-22-2022 11:37-0400 Body weight 52.[address] Vamsi Mota Work Phone: [facility] Work Phone: 02-22-2022 11:37-0400 Diastolic blood pressure 67 mm[Hg] Dr. Vamsi Mota Work Phone: [facility] Work Phone: 02-22-2022 11:37-0400 Heart rate 60 /min Dr. Vamsi Mota Work Phone: [facility] Work Phone: 02-22-2022 11:37-0400 Respiratory rate 16 /min Dr. Vamsi Mota Work Phone: [facility] Work Phone: 02-22-2022 11:37-0400 SaO2% (BldA) [Mass fraction] 100 % Dr. Vamsi Mota Work Phone: [facility] Work Phone: 02-22-2022 11:37-0400 Systolic blood pressure 135 mm[Hg] Dr. Vamsi Mota Work Phone: [facility] Work Phone: 02-17-2022 11:20-0400 Body temperature 97.81 [degF] Sanju White MD Work Phone: [facility] 02-17-2022 11:20-0400 Diastolic blood pressure 64 mm[Hg] Sanju White MD Work Phone: [facility] 02-17-2022 11:20-0400 Heart rate 59 /min Sanju White MD Work Phone: [facility] 02-17-2022 11:20-0400 Respiratory rate 16 /min Sanju White MD Work Phone: [facility] 02-17-2022 11:20-0400 SaO2% (BldA) [Mass fraction] 96 % Sanju White MD Work Phone: [facility] 02-17-2022 11:20-0400 Systolic blood pressure 144 mm[Hg] Sanju White MD Work Phone: [phone] [address] 02-17-2022 08:51-0400 Body height 154.9 cm Sanju White MD Work Phone: [phone] [address] 02-17-2022 08:51-0400 Body mass index (BMI) [Ratio] 21.96 kg/m2 Sanju White MD Work Phone: [phone] [address] 02-17-2022 08:51-0400 Body weight 52.7 kg Sanju White MD Work Phone: [phone])[phone] [address] 02-15-2022 18:00-0400 Diastolic blood pressure 85 mm[Hg] [facility] Work Phone: 02-15-2022 18:00-0400 Heart rate 62 /min [facility] Work Phone: 02-15-2022 18:00-0400 Respiratory rate 18 /min [facility] Work Phone: 02-15-2022 18:00-0400 SaO2% (BldA) [Mass fraction] 98 % [facility] Work Phone: 02-15-2022 18:00-0400 Systolic blood pressure 147 mm[Hg] [facility] Work Phone: 02-15-2022 15:40-0400 Body height 154.99 cm [facility] Work Phone: 02-15-2022 15:40-0400 Body mass index (BMI) [Ratio] 23.6 kg/m2 [facility] Work Phone: 02-15-2022 15:40-0400 Body weight 56.6 kg [facility] Work Phone: 02-15-2022 15:26-0400 Body temperature 97.8 [degF] [facility] Work Phone: Encounters Encounter Date Encounter Type Care Provider Facility Start: 06-29-2025 End: 06-29-[address] Deepika Fabian MD -[facility] Work Phone: Start: 06-29-2025 End: 06-29-2025 ambulatory Deepika Fabian Facility:[facility] Start: 04-07-2025 Non-patient / Non-visit Dr. Yana Fulton MD -[facility] Work Phone: Start: 03-31-2025 End: 03-31-[address] Deepika Fabian MD Work Phone: -[facility] Start: 03-31-2025 End: 03-31-[address] Deepika Fabian MD -[facility] Start: 03-31-2025 End: 03-31-[address] Deepika Fabian MD -[facility] Work Phone: Start: 03-31-2025 End: 03-31-[address] Deepika Fabian MD Work Phone: [facility] Work Phone: Start: 03-31-2025 End: 03-31-2025 ambulatory Deepika Fabian Facility:[facility] Start: 01-28-2025 End: 01-28-2025 Patient encounter procedure Emma Pitts [place] -[facility] Work Phone: Start: 01-28-2025 End: 01-28-2025 ambulatory Emma Pitts Facility:[facility] Start: 01-28-2025 End: 01-28-[address] Deepika Fabian MD -[facility] Work Phone: Start: 01-28-2025 End: 01-28-[address] Deepika Fabian MD Work Phone: [facility] Work Phone: Start: 01-28-2025 End: 01-28-2025 ambulatory Deepika [place] Facility:[facility] Start: 11-13-2024 End: 11-13-2024 Patient encounter procedure Emma Pitts [place] -[facility] Work Phone: Start: 11-13-2024 End: 11-13-2024 ambulatory Emma Pitts Facility:[facility] Start: 11-13-2024 End: 11-13-[address] Deepika Fabian MD -[facility] Work Phone: Start: 11-13-2024 End: 11-13-2024 ambulatory Deepika Fabian Facility:[facility] Start: 08-05-2024 End: 08-05-2024 ambulatory Deepika [place] Facility:[facility] Start: 08-05-2024 End: 08-05-2024 ambulatory Deepika Caren Facility:[facility] Start: 07-28-2024 End: 07-28-2024 ambulatory Deepika [place] Facility:[facility] Start: 07-10-2024 End: 07-10-2024 ambulatory Deepika [place] Facility:[facility] Start: 09-29-2023 End: 09-29-2023 Emergency department patient visit Dr. Deepika Fabian Work Phone: [facility] Work Phone: Start: 09-13-2023 End: 09-13-[address] Deepika Fabian Work Phone: [facility] Work Phone: Start: 07-31-2023 End: 07-31-[address] Deepika Fabian Work Phone: [facility] Work Phone: Start: 07-10-2023 End: 07-10-[address] Deepika Fabian Work Phone: [facility] Work Phone: Start: 06-27-2023 End: 06-27-[address] Deepika Fabian Work Phone: [facility]-Laboratory, Specimen Work Phone: Start: 06-27-2023 End: 06-27-[address] Deepika Fabian Work Phone: [facility] Work Phone: Start: 04-24-2023 End: 04-24-[address] Deepika Fabian Work Phone: [facility] Work Phone: Start: 04-24-2023 End: 04-24-[address] Deepika Fabian Work Phone: [facility] Work Phone: Start: 04-17-2023 End: 04-17-[address] Deepika Fabian Work Phone: [facility] Work Phone: Start: 04-04-2023 ambulatory Grace Ryder [facility] [place] Comment on above: Population Health Na vigation Outreach [facility] Start: 03-29-2023 End: 03-29-[address] Deepika Fabian Work Phone: [facility] Work Phone: Start: 03-15-2023 End: 03-15-[address] Deepika Fabian Work Phone: [facility] Internal Medicine Start: 03-01-2023 End: 03-01-[address] Deepika Fabian Work Phone: [facility] Work Phone: Start: 03-01-2023 End: 03-01-[address] Deepika Fabian Work Phone: [facility]-Laboratory, [place] Start: 03-01-2023 End: 03-01-[address] Deepika Fabian Work Phone: [facility] Internal Medicine Start: 03-01-[address] Deepika Fabian Work Phone: [facility] Start: 02-22-2023 End: 02-22-[address] Deepika Fabian Work Phone: [facility] Work Phone: Start: 02-20-2023 End: 02-20-[address] Deepika Fabian Work Phone: [facility] Work Phone: Start: 02-15-[address] Deepika Fabian Work Phone: [facility] Start: 02-14-2023 End: 02-14-[address] Deepika Fabian Work Phone: [facility] Work Phone: Start: 02-13-2023 Non-patient / Non-visit Dr. Deepika Fabian Work Phone: [facility] Start: 02-12-2023 Non-patient / Non-visit Dr. Deepika Fabian Work Phone: [facility] Start: 02-11-2023 Non-patient / Non-visit Dr. Deepika Fabian Work Phone: [facility] Start: 02-10-2023 End: 02-10-2023 Non-patient / Non-visit Dr. Deepika Fabian Work Phone: [facility] Start: 02-10-2023 Non-patient / Non-visit Dr. Deepika Fabian Work Phone: [facility] Start: 02-09-2023 Non-patient / Non-visit Dr. Deepika Fabian Work Phone: [facility] Start: 02-08-2023 Non-patient / Non-visit Dr. Deepika Fabian Work Phone: [facility] Start: 02-08-2023 End: 02-13-2023 Evaluation and management of inpatient Dr. Deepika Fabian Work Phone: [facility]-Progressive Care Unit Start: 01-01-2023 End: 01-01-[address] Deepika Fabian Work Phone: [facility] Start: 12-11-2022 End: 12-11-[address] Vamsi Mota Work Phone: [facility] Work Phone: Start: 12-11-2022 End: 12-11-[address] Vamsi Mota Work Phone: [facility]-Laboratory, Specimen Start: 12-08-2022 End: 12-08-[address] Vamsi Mota Work Phone: [facility] Start: 12-08-2022 End: 12-08-[address] Vamsi Mota Work Phone: [facility] Gastroenter[facility] Start: 11-13-2022 End: 11-13-[address] Vamsi Mota Work Phone: [facility] Work Phone: Start: 11-13-2022 End: 11-13-[address] Vamsi Mota Work Phone: [facility]-Laboratory, [place] Start: 11-13-2022 Non-patient / Non-visit Dr. Vamsi Mota Work Phone: [facility] Int Med [facility] Start: 11-10-2022 End: 11-10-2022 Emergency department patient [facility] Start: 11-04-2022 End: 11-04-2022 Emergency department patient [facility] Start: 11-01-2022 End: 11-01-2022 Emergency department patient visit [facility] Deep[facility] Start: 11-01-2022 End: 11-01-[address] Deepika Fabian Work Phone: [facility] Radiology Start: 11-01-2022 End: 11-01-[address] Deepika Fabian Work Phone: [facility] Medicine Start: 08-29-2022 End: 08-29-[address] Deepika Fabian Work Phone: [facility] Medicine Start: 08-23-2022 End: 08-23-[address] Deepika Fabian Work Phone: [facility] Start: 07-19-2022 Refill Harris hutchinson MD Work Phone: [facility] Practice Comment on above: Refill Request Start: 07-12-2022 End: 07-12-[address] Deepika Fabian Work Phone: [facility] Internal Medicine Start: 07-07-2022 End: 07-07-2022 Emergency department patient visit Dr. Deepika Fabian Work Phone: [facility]-Emergency Department Start: 07-05-2022 End: 07-05-[address] Deepika Fabian Work Phone: [facility] Internal Medicine Start: 06-22-2022 End: 06-22-[address] Vamsi Mota Work Phone: [facility] Work Phone: Start: 06-22-2022 End: 06-22-[address] Vamsi Mota Work Phone: [facility], [facility] Start: 06-08-2022 End: 06-08-[address] Vamsi Mota Work Phone: [facility] Work Phone: Start: 06-08-2022 End: 06-08-[address] Vamsi Mota Work Phone: [facility] Internal [facility] Start: 05-25-2022 End: 05-25-[address] Vamsi Mota Work Phone: [facility] Internal Medicine Start: 05-10-2022 Telephone encounter Harris Mota MD Work Phone: [facility] Comment on above: Outside Lab Results ([facility]) Start: 05-08-2022 Telephone encounter Harris Mota MD Work Phone: [facility] Comment on above: Outside Lab Results ([facility]) Start: 05-08-2022 End: 05-08-[address] Vamsi Mota Work Phone: [facility]-Laboratory, [facility] Start: 05-04-2022 End: 05-04-[address] Vamsi Mota Work Phone: [facility] Internal Medicine Start: 04-07-2022 Telephone encounter Harris Mota MD Work Phone: Family Practice Comment on above: Received Outside Med ical Records ([facility] discharge summary agronomy advisor 04/06/2022) Start: 04-05-2022 End: 04-05-[address] Vamsi Mota Work Phone: [facility]-Speech Therapy Start: 03-20-2022 Telephone encounter Harris Mota MD Work Phone: Family Practice Comment on above: Received Outside Med ical Records ([facility] neurology) Start: 03-16-2022 ambulatory DEBBIEGAEL MARTE [facility] Start: 03-07-2022 Telephone encounter Harris Mota MD Work Phone: Family Practice Comment on above: Orders (reviewed and signed by PCP and faxed back to [facility] occupational therapy. ) Start: 03-02-2022 Telephone encounter Harris Mota MD Work Phone: Family Practice Comment on above: Received Outside Med ical Records ([facility] rehab services) Start: 03-02-2022 End: 03-02-[address] Vamsi Mota Work Phone: [facility] Internal Medicine Start: 02-28-2022 Telephone encounter Harris Mota MD Work Phone: Family Practice Comment on above: Received Outside Med ical Records (from [facility] (speech therapy eval)) Start: 02-24-2022 End: 02-24-2022 Patient encounter procedure Harris Mota MD Work Phone: Family Practice Comment on above: Acute ischemic right MCA stroke (HCC) (Primary Dx); Paroxysmal atrial fibrillation (HCC) Start: 02-22-2022 Telephone encounter Harris Mota MD Work Phone: Family Practice Comment on above: Patient Update ([facility]) Start: 02-22-2022 End: 02-22-[address] Vamsi Mota Work Phone: [facility] Start: 02-16-2022 Telephone encounter Harris Mota MD Work Phone: Family Practice Comment on above: Received Outside Med ical Records (ED summary, imaging, and labs from [facility]) Received Outside Med ical Records (EKG from [facility]) Start: 02-15-2022 End: 02-17-2022 Evaluation and management of inpatient VIRAJ GARIBAY Facility:[facility] Start: 02-15-2022 End: 02-17-2022 Evaluation and management of inpatient Sanju White MD Work Phone: [id number] Comment on above: Stroke Start: 02-15-2022 End: 02-15-2022 Emergency department patient visit [facility]-Emergency Department Start: 10-28-2021 End: 10-28-2021 Patient encounter procedure [facility]-Laboratory, [facility] Start: 08-26-2020 End: 08-26-2020 Subsequent hospital visit by physician Xr [facility] Work Phone: Radiology Comment on above: Chronic [...] W Auto Different ial panel - Blood [facility] Start: 03-31-2025 Cobalamin (Vitamin B 12) [Mass/volume] in Serum or Plasma [facility] Start: 03-31-2025 Comprehensive metabo lic 2000 panel - Serum or Plasma [facility] Start: 03-31-2025 Lipid 1996 panel - S mundo or Plasma [facility] Start: 03-31-2025 Vitamin D, 25-hydrox y measurement [facility] Start: 02-17-2025 Diabetes Screening Diabetes Screenin g [facility] Start: 02-16-2025 DIABETES SCREEN DIABETES SCREEN [facility] Start: 01-28-2025 Patient referral [facility] Work Phone: Start: 08-08-2024 DIABETES SCREEN DIABETES SCREEN [facility] Start: 06-08-2024 Covid-19 Vaccine ( season) Covid-19 Vaccine (4 - ) [facility] Start: 06-08-2024 Influenza vaccination Influenz a Vaccine (#1) [facility] Start: 10-08-2023 Advance Directive Discussion Advance Directive Discussion [facility] Start: 09-29-2023 Admission procedure [facility] Start: 09-29-2023 [facility] Start: 03-15-2023 Patient referral [facility] Work Phone: Start: 02-13-2023 Patient discharge [facility] Start: 02-10-2023 Referral to digital communications manager [facility] Start: 02-09-2023 Referral to service [facility] Start: 02-08-2023 End: 02-09-2023 [facility] Start: 02-08-2023 Following clinical p athway protocol [facility] Start: 02-08-2023 Ambulation without limitation [facility] Start: 02-08-2023 Assessment of risk o f venous thromboembolism [facility] Start: 02-08-2023 Inhalation therapy procedure [facility] Start: 02-08-2023 Insertion of cathete r into peripheral vein [facility] Start: 02-08-2023 Notification of physician [facility] Start: 02-08-2023 Oxygen therapy [facility] Start: 02-08-2023 Providing care accor ding to standard [facility] Start: 02-08-2023 Provision of activit y privileges [facility] Start: 02-08-2023 Referral to occupati onal therapist [facility] Start: 02-08-2023 Referral to service [facility] Start: 02-08-2023 Vital signs measurements [facility] Start: 02-08-2023 Admission procedure [facility] Start: 02-08-2023 Patient referral to dietitian [facility] Start: 02-08-2023 [facility] Start: 12-11-2022 Elastase, pancreatic (el-1), fecal; quantitative [facility] Start: 12-11-2022 Fat [Presence] in Stool [facility] Start: 12-11-2022 Protein measurement [facility] Start: 12-08-2022 Immunoglobulin measurement [facility] Start: 12-08-2022 Procedure [facility] Start: 12-08-2022 Serum immunofixation [facility] Start: 12-08-2022 [facility] Start: 11-01-2022 Giardia lamblia Ag [Presence] in Stool by Immunoassay [facility] Start: 11-01-2022 Protein measurement [facility] Start: 10-08-2022 ADVANCE DIRECTIVE DISCUSSION ADVANCE DIRECTIVE DISCUSSION [facility] Start: 10-08-2022 DEPRESSION ASSESSMENT DEPRESSION ASS ESSMENT [facility] Start: 07-07-2022 [facility] Start: 06-19-2022 End: 06-19-2022 Patient encounter procedure 06/19/2022 Office Visit Pharmacy Yolis Floyd MD [address] [facility] [place] [place] [address] [facility] Start: 06-08-2022 Influenza vaccination INFLUENZA (#1) [facility] Start: 03-16-2022 End: 03-16-2022 Patient encounter procedure 03/16/2022 Office Visit Neurology Debbie Marte, MALT HOUSE OPERATOR-CORRECTION OFFICER SUPERVISOR [address] [facility] [address] [place] [address] Neurology [facility] Start: 02-12-2022 COVID-19 VACCINE (4 - Booster for Moderna series) COVID-19 VACCINE (4 - Booster for Moderna series) [facility] Start: 12-10-2021 COVID-19 VACCINE (4 - Booster for Moderna series) COVID-19 VACCINE (4 - Booster for Moderna series) [facility] Start: 10-08-2021 ADVANCE DIRECTIVE DISCUSSION ADVANCE DIRECTIVE DISCUSSION [facility] Start: 10-08-2021 DEPRESSION ASSESSMENT DEPRESSION ASS ESSMENT [facility] Start: 05-19-2021 COVID-19 VACCINE (3 - Booster for Moderna series) COVID-19 VACCINE (3 - Booster for Moderna series) [facility] Start: 2012 RSV Vaccine (1 - 1-d ose 75+ series) RSV Vaccine (1 - 1-dose 75+ series) [facility] Start: 07-13-2007 Tetanus vaccination TETANUS [facility] Start: 1982 Colonoscopy COLORECTAL CAN CER SCREENING DISCUSSION [facility] Start: 1977 Screening mammography MAMMOGRA M SCREENING DISCUSSION [facility] Start: 1958 Screening for malign ant neoplasm of cervix CERVICAL CANCER SCREENING DISCUSSION [facility] Start: 1956 Third diphtheria, te tanus and acellular pertussis (DTaP) vaccination TDAP (ADULT) [facility] Start: 1956 Urine microalbumin profile [facility] Start: 1955 Depression Screening Depression Scre ening [facility] Start: 1942 COVID-19 VACCINE (#1) COVID-19 VACCI NE (#1) [facility] Start: 1937 Screening for osteoporosis DEXA SCAN DISCUSSION [facility] Alanine aminotransfe rase [Enzymatic activity/volume] in Serum or Plasma [facility] Albumin [Mass/volume ] in Serum or Plasma [facility] Albumin [Moles/volum e] in Serum or Plasma [facility] Albumin/Globulin ratio [facility] Alkaline phosphatase [Enzymatic activity/volume] in Serum or Plasma [facility] Anion gap in Serum o r Plasma [facility] Bilirubin, total measurement [facility] BUN/Creatinine ratio [facility] Calcium [Mass/volume ] in Serum or Plasma [facility] Carbon dioxide, tota l [Moles/volume] in Central venous blood [facility] Cholesterol [Mass/vo lume] in Serum or Plasma [facility] Cholesterol in HDL [Mass/volume] in Serum or Plasma [facility] Creatinine [Mass/vol ume] in Serum or Plasma [facility] CT Unspecified body region [facility] Work Phone: Electrophoresis: [id number] [facility] Electrophoresis: lyric ma globulin [facility] Erythrocyte mean corpuscular volume determination [facility] Fat [Mass/mass] in Stool [facility] Fat.neutral [Presenc e] in Stool [facility] Globulin measurement [facility] Glucose [Mass/volume ] in Serum or Plasma [facility] GOLD TOP TUBE GOLD TOP TUBE La b Routine 02/15/2022 9:45 PM [facility] Hematocrit [Volume Fraction] of Blood [facility] Hemoglobin [Mass/vol ume] in Blood [facility] IgA [Mass/volume] in Serum or Plasma [facility] IgE [Units/volume] i n Serum or Plasma [facility] IgG [Mass/volume] in Serum or Plasma [facility] IgM [Mass/volume] in Serum or Plasma [facility] LAVENDER TOP TUBE LAVENDER TOP T UBE Lab Routine 02/15/2022 9:45 PM EDT [facility] Leukocytes [#/volume ] in Blood [facility] Low density lipoprot ein cholesterol measurement [facility] Mean corpuscular hemoglobin concentration determination [facility] Mean corpuscular hemoglobin determination [facility] Measurement of renal function [facility] Neutrophil count [facility] Neutrophil cytoplasm ic Ab.classic [Units/volume] in Serum [facility] Neutrophil percent differential count [facility] P-ANCA measurement [facility] Patient Education [facility] Work Phone: Patient referral [facility] Work Phone: Platelets [#/volume] in Blood [facility] Potassium measurement [facility] Protein electrophore sis panel - Serum or Plasma [facility] Protein measurement [facility] RAINBOW DRAW RAINBOW DRAW Lab Routine 02/15/2022 9:45 PM EDT [facility] Red blood cell count [facility] Red cell distributio n width determination [facility] Serum chloride measurement [facility] Serum protein electrophoresis [facility] Sodium measurement [facility] End: 02-15-2022 Standard ECG [facility] Comment on above: One Time for 1 Occur rences starting 02/15/2022 until 02/15/2022 End: 02-16-2022 Standard ECG ECG ECG Routine One Time for 1 Occurrences starting 02/16/2022 until 02/16/2022 [facility] Comment on above: One Time for 1 Occur rences starting 02/16/2022 until 02/16/2022 Total cholesterol:HD L ratio measurement [facility] Total protein measurement [facility] Triglycerides measurement [facility] Urea nitrogen [Mass/volume] in Serum or Plasma [facility] VLDL cholesterol measurement [facility] Immunizations Immunization Date Immunization Notes Care Provider Rosalio ortzi 06-29-2025 Seasonal trivalent influenza vaccine, adjuvanted, preservative free Dr. Deepika Fabian MD Work Phone: [facility] 07-10-2023 influenza, injectabl e, quadrivalent, preservative free Dr. Deepika Fabian Work Phone: [facility] 04-17-2023 tetanus toxoid, redu polly diphtheria toxoid, and acellular pertussis vaccine, adsorbed Dr. Deepika Fabian Work Phone: [facility] 06-30-2022 Influenza High-Dose Quadrivalent Dr. Deepika Fabian Work Phone: [facility] 06-30-2022 Influenza, high dose seasonal Dr. Deepika Fabian MD Work Phone: [facility] 06-30-2022 influenza, high dose seasonal, preservative-free Dr. Deepika Fabian Work Phone: [facility] 06-30-2022 influenza virus vacc ine, unspecified formulation [facility] [place] Work Phone: [facility] 10-15-2021 Covid (Moderna) Dr. Vamsi Mota Work Phone: [facility] 08-17-2021 Influenza, high dose seasonal Dr. Deepika Fabian MD Work Phone: [facility] 08-17-2021 influenza, high dose seasonal, preservative-free Dr. Vamsi Mota Work Phone: [facility] 08-17-2021 influenza, high-dose , quadrivalent vaccine (FLUZONE HIGH DOSE QUADRIVALENT) Harris Mota MD Work Phone: [facility] 12-17-2020 Covid (Moderna) [facility] 11-19-2020 Covid (Moderna) [facility] 08-23-2020 Influenza, high dose seasonal Dr. Deepika Fabian MD Work Phone: [facility] 08-23-2020 influenza, high dose seasonal, preservative-free Dr. Vamsi Mota Work Phone: [facility] 08-23-2020 influenza, high-dose , quadrivalent vaccine (FLUZONE HIGH DOSE QUADRIVALENT) Harris Mota MD Work Phone: [facility] 08-25-2019 Influenza, high dose seasonal Dr. Deepika Fabian MD Work Phone: [facility] 08-25-2019 influenza, high dose seasonal, preservative-free Hraris Mota MD Work Phone: [facility] 07-11-2019 zoster vaccine recombinant Harris Mota MD Work Phone: [facility] 07-10-2019 zoster vaccine recombinant Harris Mota MD Work Phone: [facility] 05-04-2019 zoster vaccine recombinant Harris Mota MD Work Phone: [facility] 08-05-2018 Influenza, high dose seasonal Dr. Deepika Fabian MD Work Phone: [facility] 08-05-2018 influenza, high dose seasonal, preservative-free Harris Mota MD Work Phone: [facility] 07-20-2017 Influenza, high dose seasonal Dr. Deepika Fabian MD Work Phone: [facility] 07-20-2017 influenza, high dose seasonal, preservative-free Harris Mota MD Work Phone: [facility] 07-31-2016 Influenza, high dose seasonal Dr. Deepika Fabian MD Work Phone: [facility] 07-31-2016 influenza, high dose seasonal, preservative-free Harris Mota MD Work Phone: [facility] 07-31-2016 pneumococcal conjuga te vaccine, 13 valent Harris Mota MD Work Phone: [facility] 07-07-2014 influenza, injectabl e, quadrivalent, preservative free Dr. Deepika Fabian Work Phone: [facility] 07-07-2014 influenza, seasonal, injectable Harris Mota MD Work Phone: [facility] 07-20-2013 influenza virus vacc ine, unspecified formulation Harris Mota MD Work Phone: [facility] 07-22-2012 influenza virus vacc ine, unspecified formulation Harris Mota MD Work Phone: [facility] 07-11-2011 influenza virus vacc ine, unspecified formulation Harirs Mota MD Work Phone: [facility] 07-22-2010 influenza virus vacc ine, unspecified formulation Harris oMta MD Work Phone: [facility] Work Phone: 08-20-2007 influenza virus vacc ine, whole virus Harris Mota MD Work Phone: [facility] 08-20-2007 influenza, injectabl e, quadrivalent, preservative free Dr. Deepika Fabian Work Phone: [facility] 08-20-2007 influenza, seasonal, injectable Dr. Vamsi Mota Work Phone: [facility] 07-22-2005 pneumococcal polysaccharide vaccine, 23 valent Harris Mota MD Work Phone: [facility] Work Phone: 07-13-1997 tetanus toxoid, adsorbed Travis shruti Mota MD Work Phone: [facility] Payers Date Payer Category Payer Self-pay [id number] 2021 [facility] [id number] 2021 Unknown AARP AARP [id number] 2021-Present [address] [place] [address] [id number] 2015 Private Health Insurance [facility] AARP SUPPLEMENT [id number] 2015-Present [phone] [address] [place] [address] Indemnity [id number] 2015 Private Health Insurance [facility] AARP SUPPLEMENT [id number] 2015-Present [phone] [address] [place] [address] Indemnity [id number] 2002 Medicare [id number] 2002 Medicare MEDICARE MEDICAR E A AND B [id number] 2002-Present [phone] [place] [address] Medicare [id number] 2002 Medicare [id number] 1937 Unknown [id number] 1937 Unknown [id number] Unknown [id number] Unknown [id number] Unknown [id number] Unknown [id number] Unknown [id number] Unknown [id number] Unknown [id number] Unknown [id number] Unknown [id number] Unknown [id number] Unknown [id number] Unknown [id number] Social History Date Type Detail Facility Start: 02-15-2022 End: 09-29-2023 Tobacco smoking status NCIS Unknown if ever smoked [facility] Start: 1935 Sex Assigned At Female [facility] Start: 10-10-2012 End: 03-31-2025 Tobacco smoking status NCIS Never smoked tobacco [facility] Start: 08-23-2020 End: 08-17-2021 Alcohol intake Current drinker of alcohol (finding) [facility] Start: 05-26-2021 History SDOH Alcohol Frequency 2 [facility] Start: 05-26-2021 History SDOH Alcohol Std Drinks 1 [facility] Start: 05-26-2021 History SDOH Social Connections Phone 5 [facility] Start: 05-26-2021 History SDOH Social Connections Get Together 3 [facility] Start: 05-26-2021 History SDOH Social Connections Living 4 [facility] Start: 05-26-2021 History SDOH Physica l Activity DPW 6 [facility] Start: 05-26-2021 Education 21 [facility] Start: 1935 Sex Assigned At Not on file C [facility] Start: 07-27-2020 End: 02-24-2022 Exposure to SARS-CoV-2 (event) Not sure [facility] Start: 10-10-2012 Tobacco use and exposure Smoke less tobacco non-user [facility] Start: 08-05-2018 End: 08-23-2020 History of Social function [facility] Start: 08-05-2018 End: 08-23-2020 Tobacco use panel [facility] Adult Depression Screening Assessment 0 [facility] Start: 02-02-2025 Sex Female (finding) [facility] Goals Date Patient Goal Desired Activity /State Functional Status Date Assessment Result Facility 02-13-2023 Functional status Ambulates;Aidan r;Bathroom Privilege [facility] Work Phone: Mental Status Date Assessment Result Facility 09-29-2023 Cognitive function Voice/Name [facility] Work Phone: 02-13-2023 Cognitive function Voice/Name [facility] Work Phone: 11-01-2022 Cognitive function Level Of Cons ciousness Awake;Alert;Appropriate;Follow s Commands [facility] Work Phone: 07-07-2022 Cognitive function Level Of Cons ciousness Awake;Alert;Appropriate;Follow s Commands [facility] Work Phone: 02-15-2022 Cognitive function Voice/Name [facility] Work Phone: Clinical Notes 08-26-2020 to 06-29-2025 Note Date & Type Note Facility 06-29-2025 Progress note [facility] 03-31-2025 Evaluation note Diagnosis Onset Date [...] Iron deficiency noneactive June 29, 2025 9:52am [employer] [facility] Work Phone: 1(862) 550-384204-23-2025 Evaluation note* Diagnosis Onset Date Resolution Status [...] 2025 7:57am Iron deficiency noneactive March 7:57am [employer] [facility] Work Phone: 1(981) 397-926604-23-2025 Evaluation note* Diagnosis Onset Date Resolution Status [...] 312024 7:57am Iron deficiency noneactive March 7:57am [facility] Work Phone: 1([phone]) [phone] Evaluation note* Diagnosis Onset Date Resolution Status [...] 2024 1:49pm Dizziness resolved January 28 1:49pm [facility] Work Phone: [phone] NoteHNO ID: [id number] Author: Grace Langston MA Service: ? Author Type: Registered Respiratory Technician Type: Progress Notes Filed: 04/05/2023 12:43 PM [...] Grace Langston MA April 04, 2023 1:29 [facility]06-28-2023 NotePatient Outreach (NETNAV) DEA MERRITT ([id number]) 1935 F Date Time Provider Department 04/04/23 GRACE LANGSTON During your visit today, we recorded the following information about you: Grace Langston MA 04/05/2023 12:43 PM Signed POPULATION HEALTH NAVIGATION OUTREACH Action/FYI LVM MYCHART MESSAGE SENT ANNUAL MEDICARE WELLNESS ADVANCE DIRECTIVE DISCUSSION Patient Identified by Name and : NO Outreach Outcome/Action Unable to reach patient: Left message [employer] message sent Did you use a PCP [...] Comments: Mouth swelling and blurry vision. STATINS (VVFNEQH-QLS-IHS REDUCTAS*10/18/2009 5 - Intolerance Comments: Joint pain/swelling/elevated [...] 02/21/2021 Encounter Status:Closed by GRACE LANGSTON on 04/05/23[facility]06-28-2023 History of Present illness Narrative* Grace Langston MA - 04/04/2023 1:29 PM EDT POPULATION HEALTH NAVIGATION OUTREACH Action/FYI LVM [employer] MESSAGE SENT ANNUAL MEDICARE WELLNESS ADVANCE DIRECTIVE DISCUSSION Patient Identified by Name and : NO Outreach Outcome/Action Unable to reach patient: Left message [employer] message sent Did you use a PCP [...] 04, 2023 1:29 PM documented in [facility] Moffett [facility] February 13, 2023 2:07pm Note Date/Time February 13, 2023 2:07pm [facility] Medical Records Department [address] [place] [address] Discharge Summary 02/13/23 1405 MR#: [id number] Acct: [id number] Name: DEA MERRITT Rep #:[id number] : 1935 87 From: Jody Moffett MD PCP: Dr. Deepika Fabian MD Status:ADM IN Location: [place] [address] Providers Date of Admission: 02/08/23 Date of [...] of right MCA CVA who presented to [facility] 02/08/2023 with worsening diarrhea and right ankle [...] about appointment date/time please contact his office (ph.[phone]) -He was indicated that you are no [...] an outpatient basis with your PCP or electrical instrument repairer if deemed appropriate -Please call your primary [...] about appointment date/time please contact his office (ph.[phone]) -He was indicated that you are no [...] an outpatient basis with your PCP or electrical instrument repairer if deemed appropriate -Please call your primary [...] in before D/C Order can be placed): [facility] Facility Charges/Coding Visit Charges Inpatient E&M: 20351 Disch Hosp >30min 02/13/23 1407 <Electronically signed by Jody Moffett MD> Cosigner Signature (if applicable): CC: Dr. Deepika Fabian MD; Dr. Jody Moffett MD~ Signed [facility] Work Phone: 1([phone]) 400-738305-09-[address] Moffett [facility] February 13, 2023 2:05pm Note Date/Time February 13, 2023 1:38pm [facility] Medical Records Department [address] [place] [address] Transfer to [facility] MR#: [id number] Acct: [id number] Name: DEA MERRITT Rep #:[id number] : 1935 87 From: Jody Moffett MD PCP: Dr. Deepika Fabian MD Status:ADM IN Certification of patient admission REQUIRED AT TIME OF ADMISSION. I CERTIFY THAT POST-HOSPITAL ECF SERVICES ARE REQUIRED TO BE GIVEN ON AN IN-PATIENT BASIS BECAUSE OF THE ABOVE NAMED PATIENT'S NEED FOR [facility] CARE ON A CONTINUING BASIS FOR THE CONDITION(S) FOR WHICH HE/SHE WAS RECEIVING IN-PATIENT HOSPITAL SERVICES PRIOR TO HIS/HER TRANSFER TO THE [facility]. 02/13/23 1405<Electronically signed by Jody Moffett MD> [...] of right MCA CVA who presented to [facility] 02/08/2023 with worsening diarrhea and right ankle [...] about appointment date/time please contact his office (ph.[phone]) -He was indicated that you are no [...] an outpatient basis with your PCP or electrical instrument repairer if deemed appropriate -Please call your primary care provider's office upon discharge to schedule a hospital follow up within 1 week. -For any concerning signs or symptoms please call 911 or proceed to the nearest emergency department Allergies/Procedures Done in Hospital Allergies clindamycin Allergy (Verified 02/08/23 10:32) Other hyoscyamine Allergy (Verified 02/08/23 10:32) Other Penicillins Allergy (Verified 02/08/23 10:32) Hives Prkvoqv-MNY-SsE Reductase Inhibitor [Tvqgyjq-Icm-Rkf Reductase Inhibitor] Allergy (Verified 02/08/23 10:32) Pain [...] about appointment date/time please contact his office (ph.[phone]) -He was indicated that you are no [...] an outpatient basis with your PCP or electrical instrument repairer if deemed appropriate -Please call your primary [...] in before D/C Order can be placed): [facility] Facility 02/13/23 1405 <Electronically signed by Jody Moffett MD> Cosigner Signature (if applicable): CC: MOON Rod; Dr. Deepika Fabian MD; Dr. Himanshu Reynolds MD ~ [facility] Work Phone: [phone]) 156-960005-09-2023 Progress note Author Vamsi [facility] February 13, 2023 7:13am Note Date/Time February 13, 2023 7:11am [facility] Medical Records Department [address] [place] [address] Progress Note 02/13/23705 MR#: [id number] Acct: [id number] Name: DEA MERRITT Rep #:[id number] : 1935 87 From: Vamsi Segal DPM PCP: Dr. Deepika Fabian MD Status:ADM IN Location: [place] [address] Subjective Subjective Patient was seen this morning [...] Cosigner Signature (if applicable): CC: ~ Signed [facility] Work Phone: 1([phone]) [phone] Moffett [facility] February 12, 2023 3:22pm Note Date/Time February 12, 2023 11:01a [facility] Medical Records Department [address] [place] [address] Progress Note - Hospitalist 02/12/23 1100 MR#: [id number] Acct: [id number] Name: DEA MERRITT Rep #:[id number] : 1935 87 From: Jody Moffett MD PCP: Dr. Deepika Fabian MD Status:ADM IN Location: [place] [address] Reason for Visit Reason for Visit: Diagnoses [...] 72.9 H, Lymph % (Auto) 17.4 L, Burke % (Auto) 7.8, Eos % (Auto) 1.0, [...] documentation, 30minutes Charges/Coding Visit Charges Inpatient E&M: 65021 Subs Hosp L2 02/12/23 1522 <Electronically signed by Jody Moffett MD> Cosigner Signature (if applicable): CC: ~ Signed [facility] Work Phone: [phone]) [phone] Price [facility] February 12, 2023 4:05am Note Date/Time February 12, 2023 4:05am [facility] Medical Records Department [address] [place] [address] Progress Note - Hospitalist 02/12/23 0405 MR#: [id number] Acct: [id number] Name: DEA MERRITT Rep #:[id number] : 1935 87 From: Rebecca Price MD PCP: Dr. Deepika Fabian MD Status:ADM IN Location: [place] [address] Hospitalist Note Recurrent atrial fibrillation with RVR, will dose with IV cardizem x 1 now, was effective prior with occurrence. 02/12/23 0405 <Electronically signed by Rebecca Price MD> Cosigner Signature (if applicable): CC: ~ Signed [facility] Work Phone: [phone]) 488-849005-07-[address] Reynolds [facility] February 11, 2023 8:57am Note Date/Time February 11, 2023 7:37am [facility] Medical Records Department [address] [place] [address] Progress Note - Hospitalist 02/11/23 0735 MR#: [id number] Acct: [id number] Name: DEA MERRITT Rep #:[id number] : 1935 87 From: Himanshu Reynolds MD PCP: Dr. Deepika Fabain MD Status:ADM IN Location: [place] [address] 1 Reason for Visit Reason for Visit: Diagnoses Hyperlipidemia, unspecified (02/08/23) Dehydration (02/08/23) Hypokalemia (02/08/23) Essential (primary) hypertension (02/08/23) Pain in right foot (02/08/23) Diarrhea, unspecified (02/08/23) Difficulty in walking, not elsewhere classified (02/08/23) Subjective Subjective Patient went into A-fib with RVR with initiation of Cardizem. Patient now agreeable to being discharged to a [facility] facility consult has subsequently been placed Case [...] % (Auto) 66.9, Lymph % (Auto) 22.6, Burke % (Auto) 8.6, Eos % (Auto) 1.2, [...] Neut % (Auto) 70.0, Lymph % (Auto)20.7, Burke % (Auto) 7.8, Eos % (Auto) 0.7, [...] 0:45 EDT Reading Location ID and State: [facility] / [place] Tel , Service support , Physical Exam [...] - Requested for PT OT eval and social director to assist with discharge planning. Plan is for patient to be discharged to [facility] facility pending insurance approval and bed availability Time spent in the patient's overall evaluation,decision-making process, review of diagnostic data, adjustment of management, discussion with other providers, nursing nursing and ancillary staff involved in patient's care documentation, 37 Minutes Charges/Coding Visit Charges Inpatient E&M: 42693 Subs Hosp L2 02/11/23 0857 <Electronically signed by Himanshu Reynolds MD> Cosigner Signature (if applicable): CC: ~ Signed [facility] Work Phone: [phone]) [phone] Price [facility] February 11, 2023 1:15am Note Date/Time February 10, 2023 10:11p m [facility] Medical Records Department [address] [place] [address] Progress Note - Hospitalist 02/10/232210 MR#: [id number] Acct: [id number] Name: DEA MERRITT Rep #:[id number] : 1935 87 From: Rebecca Price MD PCP: Dr. Deepika Fabian MD Status:ADM IN Location: [place] [address] Hospitalist Note Asymptomatic sustained HR 170s per [...] Cosigner Signature (if applicable): cc: ~* Signed [facility] Work Phone: 1([phone]) 238-695605-06-2023 Consult note Author Emanuel Rod [facility] February 10, 2023 5:59pm Note Date/Time February 10, 2023 5:01pm [facility] Medical Records Department [address] [place] [address] Consultation 02/10/23 1701 MR#: [id number] Acct: [id number] Name: DEA MERRITT Rep #:[id number] : 1935 87 From: Emanuel donaldson DPM PCP: Dr. Deepika Fabian MD Status:ADM IN Location: [place] [address] Assessment & Plan Assessment/Plan (1) Foot pain, [...] Jr. Lidia Allen.[facility] [phone] HPI Consult Data Date of Consult: 02/10/23 HPI Narrative Reason for Consultation: Swollen right ankle HPI Narrative: DEA MERRITT, is a 87 F who presents to [facility] on 02/08/2023 with complaint of returning diarrhea [...] ankle swelling with request to perform arthrocentesis. 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 Deepika Fabian MD~ Signed [facility] Work Phone: [phone]) 506-244505-06-[address] Reynolds [facility] February 10, 2023 9:49am Note Date/Time February 10, 2023 7:41am [facility] Medical Records Department [address] [place] [address] Progress Note - Hospitalist 02/10/23 0741 MR#: [id number] Acct: [id number] Name: DEA MERRITT Rep #:[id number] : 1935 87 From: Himanshu Reynolds MD PCP: Dr. Deepika Fabian MD Status:ADM IN Location: [place] [address] Reason for Visit Reason for Visit: Diagnoses [...] 37 Minutes Charges/Coding Visit Charges Inpatient E&M: 17023 Subs Hosp L2 02/10/23 0949 <Electronically signed by Himanshu Reynolds MD> Cosigner Signature (if applicable): CC: ~ Signed [facility] Work Phone: [phone]) 474-738605-05-[address] Reynolds [facility] February 09, 2023 10:15am Note Date/Time February 09, 2023 7:40am [facility] Medical Records Department [address] [place] [address] Progress Note - Hospitalist 02/09/23 0738 MR#: [id number] Acct: [id number] Name: DEA MERRITT Rep #:[id number] : 1935 87 From: Himanshu Reynolds MD PCP: Dr. Deepika Fabian MD Status:ADM IN Location: [place] [address] Reason for Visit Reason for Visit: Diagnoses [...] 70.9 H, Lymph % (Auto) 14.4 L, Burke % (Auto) 12.7 H, Eos % (Auto) [...] Clarity Clear, Urine pH 7.0, Ur Specific [place] 1.010, Urine Protein 30 H, Urine Glucose [...] % (Auto) 61.7, Lymph % (Auto) 21.1, Burke% (Auto) 14.4 H, Eos % (Auto) 1.8, Baso % (Auto) 0.7, Absolute Neuts (auto) 5.5,Absolute Lymphs (auto) 1.89, Nucleated RBC % 0 02/09/23 06:15: Sodium 140, Potassium 2.9 L, Chloride 107, Carbon Dioxide 24.0, Anion Gap 9, BUN 12, Creatinine 0.66, Estim Creat Clear Calc 31.04, Est GFR (MDRD) Af Amer 110, Est GFR (MDRD) Non-Af 91, BUN/Creatinine Ratio 18.3, Boxisvm323, Calcium 8.1 L, Phosphorus 1.6 L, Magnesium [...] 37 Minutes Charges/Coding Visit Charges Inpatient E&M: 95696 Subs Hosp L2 02/09/23 1015 <Electronically signed by Himanshu Reynolds MD> Cosigner Signature (if applicable): CC: ~ Signed [facility] Work Phone: [phone]) 701-226605-05-[address] Price [facility] February 08, 2023 10:03pm Note Date/Time February 08, 2023 10:03p m [facility] Medical Records Department [address] [place] [address] Progress Note - Hospitalist 02/08/232202 MR#: [id number] Acct: [id number] Name: DEA MERRITT Rep #:[id number] : 1935 87 From: Rebecca Price MD PCP: Dr. Deepika Fabian MD Status:ADM IN Location: [place] [address] Hospitalist Note Patient daughter and patient insistent that she take only 20 mg prednisone only.In the past when attempted 40 mg daily she had mental status changes. Dose decreased to 20 mg daily. 02/08/232202 <Electronically signed by Rebecca Price MD> Cosigner Signature (if applicable): CC: ~ Signed [facility] Work Phone: [phone] History and physical note Author Dr. Reynolds [facility] February 08, 2023 1:29pm Note Date/Time February 08, 2023 1:06pm [facility] Medical Records Department [address] [place] [address] H&P Exam - Hospitalist 02/08/23 1306 MR#: [id number] Acct: [id number] Name: DEA MERRITT Rep #:[id number] : 1935 87 From: Himanshu Reynolds MD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 Advance Directives Yes September 2:25pm Living Will Yes February 15, 2022 3 :42pm Power of Powder Operator Yes February 15, 2022 3:42pm Documents on File Type Date Recorded Patient Clinical Investigator Expl anation Advance Directive(s) 09/11/2013 7:54 AM Advance Directive Response Recorded Date/ Time Name of Medical Power of Powder Operator JOAQUÍN AND STEPHIE DAUGHTERS July 07, 2022 7:23am Name of Medical Power of Powder Operator ? November 01, 2022 3:06pm Advance Directives Yes September 1:25pm Living Will Yes November 01 3:06pm Power of Powder Operator Yes November 01, 2022 3:06pm Advance Directive Response Recorded Date/ Time Name of Medical Power of Powder Operator JOAQUÍN AND STEPHIE DAUGHTERS July 07, 2022 7:23am Name of Medical Power of Powder Operator ? November 01, 2022 3:06pm Name of Medical Power of Powder Operator stephie (daughter) November 04, 2022 11:28am Advance Directives Yes September 1:25pm Living Will Yes November 04 11:28am Power of Powder Operator Yes November 04, 2022 11:28am Advance Directive Response Recorded Date/ Time Name of Medical Power of Powder Operator ? November 01, 2022 3:06pm Name of Medical Power of Powder Operator stephie (daught er) November 04, 2022 11:28am Advance Directives Yes September 1:25pm Living Will No November 10 11:26am Power of Powder Operator No November 10, 2022 11:26am Advance Directive Response Recorded Date/ Time Name of Medical Power of Powder Operator ? November 01, 2022 4:06pm Name of Medical Power of Powder Operator stephie (daught er) November 04, 2022 12:28pm Name of Medical Power of Powder Operator Stephie Bowen: daughters February 08, 2023 2:03pm Advance Directives Yes September 2:25pm Living Will Yes February 08, 2023 2: 03pm Power of Powder Operator Yes February 08, 2023 2:03pm Advance Directive Response Recorded Date/ Time Name of Medical Power of Powder Operator Stephie Bowen: daughters February 08, 2023 2:03pm Advance Directives Yes September 2:25pm Living Will Yes February 08, 2023 2: 03pm Power of Powder Operator Yes February 08, 2023 2:03pm Advance Directive Response Recorded Date/ Time Name of Medical Power of Powder Operator joaquín hickman, daughter September 29, 2023 1:41am Advance Directives Yes September 1:25pm Living Will Yes September 29, 2 023 1:41am Power of Powder Operator Yes September 29, 2023 1:41am Advance Directive Response Recorded Date/ Time Living Will Yes September 29, 2 023 2:41am Do you have a Healthcare Power of Powder Operator? Yes September 29, 2023 2:41am Living Will Yes April 19, 2024 1:45pm Do you have a Healthcare Power of Powder Operator? Yes April 19, 2024 1:45pm Advance [...] or prosecute any alcohol or drug abuse patient.[facility] RehabilitationIn the event this information is protected by the Federal Confidentiality of Alcohol and Drug Abuse Patient Records regulations: The Federal rules restrict any use of the information to criminally investigate or prosecute any alcohol or drug abuse patient.[facility] RehabilitationIn the event this information is protected by the Federal Confidentiality of Alcohol and Drug Abuse Patient Records regulations: The Federal rules restrict any use of the information to criminally investigate or prosecute any alcohol or drug abuse patient.[facility] RehabilitationIn the event this information is protected by the Federal Confidentiality of Alcohol and Drug Abuse Patient Records regulations: The Federal rules restrict any use of the information to criminally investigate or prosecute any alcohol or drug abuse patient.[facility] RehabilitationIn the event this information is protected by the Federal Confidentiality of Alcohol and Drug Abuse Patient Records regulations: The Federal rules restrict any use of the information to criminally investigate or prosecute any alcohol or drug abuse patient.[facility] RehabilitationIn the event this information is protected by the Federal Confidentiality of Alcohol and Drug Abuse Patient Records regulations: The Federal rules restrict any use of the information to criminally investigate or prosecute any alcohol or drug abuse patient.[facility] RehabilitationIn the event this information is protected by the Federal Confidentiality of Alcohol and Drug Abuse Patient Records regulations: The Federal rules restrict any use of the information to criminally investigate or prosecute any alcohol or drug abuse patient.[facility] RehabilitationIn the event this information is protected by the Federal Confidentiality of Alcohol and Drug Abuse Patient Records regulations: The Federal rules restrict any use of the information to criminally investigate or prosecute any alcohol or drug abuse patient.[facility] RehabilitationIn the event this information is protected by the Federal Confidentiality of Alcohol and Drug Abuse Patient Records regulations: The Federal rules restrict any use of the information to criminally investigate or prosecute any alcohol or drug abuse patient.[facility] RehabilitationIn the event this information is protected by the Federal Confidentiality of Alcohol and Drug Abuse Patient Records regulations: The Federal rules restrict any use of the information to criminally investigate or prosecute any alcohol or drug abuse patient.[facility] RehabilitationIn the event this information is protected by the Federal Confidentiality of Alcohol and Drug Abuse Patient Records regulations: The Federal rules restrict any use of the information to criminally investigate or prosecute any alcohol or drug abuse patient.[facility] RehabilitationIn the event this information is protected by the Federal Confidentiality of Alcohol and Drug Abuse Patient Records regulations: The Federal rules restrict any use of the information to criminally investigate or prosecute any alcohol or drug abuse patient.[facility] RehabilitationIn the event this information is protected by the Federal Confidentiality of Alcohol and Drug Abuse Patient Records regulations: The Federal rules restrict any use of the information to criminally investigate or prosecute any alcohol or drug abuse patient.[facility] RehabilitationIn the event this information is protected by the Federal Confidentiality of Alcohol and Drug Abuse Patient Records regulations: The Federal rules restrict any use of the information to criminally investigate or prosecute any alcohol or drug abuse patient.[facility] Reason for Visit (unrecogniz ed section and content) Reason Comments Received Outside Medical Records ED summ drea, imaging, and labs from [facility] Reason Comments Received Outside Medical Records EKG fro m [facility] Reason Comments Altered mental status Specialty Diagnoses / Procedures Referred By Eligio t Referred To Contact Diagnoses confusion Referral ID Status Reason Start Date Expiration Date Visits Re quested Visits Authorized [id number] 1 Reason Comments Patient Update [facility] Reason Comments Transition Of Care Reason Comments Received Outside Medical Records from [facility] (speech therapy eval) Reason Comments Received Outside Medical Records [facility] Reason Comments Orders reviewed and signed by PCP and faxed back to [facility] occupational therapy. Reason Comments Received Outside Medical Records [facility] sammy rology Reason Comments Received Outside Medical Records [facility] discharge summary [facility] 04/06/2022 Reason Comments Outside Lab Results [facility] Reason Comments Refill Request Reason Onset Date Comments Population Health Navigation Outreach 04/04/2023 [facility] Care Teams (unrecognized sec tion and content) Sample Grinder Relationship Specialty Start Date End Date Harris Mota MD [address] [place], [place] [id number] PCP - General Family Practice 10/12/10 Sample Grinder Relationship Specialty Start Date End Date Vamsi Mota MD [address] [place] [address] [place], [place] [id number] PCP - General Family Medicine 02/17/22 Sample Grinder Relationship Specialty Start Date End Date Harris Mota MD [address] [place], [place] [id number] PCP - General Family Practice 10/12/10 Sample Grinder Relationship Specialty Start Date End Date Harris Mota MD [address] [place], [place] [address] PCP - General Family Practice 10/12/10 Sample Grinder Relationship Specialty Start Date End Date Harris Mota MD [address] [place], [place] [address] PCP - General Family Practice 10/12/10 Sample Grinder Relationship Specialty Start Date End Date Harris Mota MD [address] [place], [place] [id number] PCP - General Family Medicine 10/12/10 Team [...] MD Primary Care Provider Active Allison Tomlinson CARTON WRAPPER, CARTON WRAPPER-C Attending Provider Active Team Status: Inactive Member [...] Dr. Deepika Fabian MD Primary [facility] Active Sample Grinder Relationship Specialty Start Date End Date Harris Mota MD [address] [place] [address] PCP - General Family Medicine 10/12/10 Team Status: Inactive Member Role Status Dates Dr. Deepika Fabian MD Primary Care Provider Active Allison Tomlinson CARTON WRAPPER, CARTON WRAPPER-C Attending Provider Active Team Status: Inactive Member [...] Active Terrell FUENTES PA Attending Provider Active Sample Grinder Relationship Specialty Start Date End Date Harris Mota MD [address] [facility] [address] PCP - [facility] 10/12/10 Team Status: Inactive Member Role Status [...] Active Start: April 07, 2025 Dr. Yana Fulton MD Attending physician Active Start: April 07, [...] over 2 minutes. Telemetry required except for GUEST EXPERIENCE SPECIALIST patients on [address] 6 and 7. [...] section and content) DATE CREATED AUTHOR 03/17/2022 [facility] DATE CREATED AUTHOR AUTHOR'S ORGANIZ ATION 04/06/2023 [facility] DATE CREATED AUTHOR AUTHOR'S ORGANIZ ATION 06/29/2025 [facility] FOR RECORDS PERTAINING TO PATIENTS WHO [...] BE BASED ON THE PRIMARY CLINICAL RECORDS. [email or web address] provides no warranty or guarantee of the accuracy or completeness of information in this document.
--- OUTSIDE RECORDS SUMMARY | 2025-07-30 20:34 | XMS RPT_ITS | CCD ---
Author Organization [facility] Care Team Providers Care Care Attendant Name Role Phone Aleksey DUNN, Harris Vallejo Primary Care Provider Vamsi Mota MD Primary Care Provider [phone] DEBBIE MARTE Attending Unavailable VIRAJ GARIBAY Referring Unavailable [facility] Primary Car e Unavailable VIRAJ GARIBAY Admitting Unavailable VIRAJ GARIBAY Attending Unavailable CONSULT, NEUROLOGY Consulting Unavailable CHRISTINA IRWIN Referring Unavailable Dr. Vamsi Mota Primary Care Provider Dr. Vamsi Mota Referring Provider [phone] Dr. Andrae Tomlinson Attending Provider Dr. Deepika Fabian Attending Provider Dr. Deepika Fabian Primary Care Provider Dr. Deepika Fabian Referring Provider Dr. Vamsi Mota Primary Care Provider Dr. Vamsi Mota Referring Provider Harris Mota MD Primary Care Provider Dr. Deepika aFbian Primary Care Provider Dr. Deepika Fabian Attending Provider Dr. Deepika Fabian Referring Provider Dr. Vamsi Mota Referring Provider [phone] Gisselle FUENTES, GINA Balbuena Attending Provider Dr. Andrae Tomlinson Attending Provider Dr. Deepika Fabian Primary Care Provider Dr. Deepika Fabian Attending Provider [phone] Dr. Deepika Fabian Referring Provider [phone] Dr. Deepika Fabian Primary Care Provider Dr. Deepika Fabian Attending Provider [phone] Dr. Deepika Fabian Referring Provider [phone] Bushra DEV MANAGER, DEV MANAGER-C Allison Attending Provider Unadora ailable Friend, Dr. Muhammad Attending Provider [phone] Dr. Deepika Fabian Primary Care Provider Dr. Deepika Fabian Attending Provider [phone] Dr. Deepika Fabian Referring Provider [phone] Dr. Andrae Tomlinson Attending Provider [phone] Bushra DEV MANAGER, DEV MANAGER-C Allison Attending Provider Unav ailable Friend, Dr. Muhammad Attending Provider [phone] Reji FUENTES, [place] Ashu Balbuena Attending Provider [...] Dr. Melisa Montes Attending Provider Dr. Himanshu eRynolds Referring Provider Unavailable Dr. Jody Moffett Attending Provider Dr. Deepika Fabian Attending Provider [phone] Aleksey DUNN, [facility] Primary Care Provider [phone] Dr. Deepika Fabian Primary Care Provider Dr. Deepika Fabian Referring Provider [phone] Bushra DEV MANAGER, DEV MANAGEROmarC Allison Attending Provider Yasminv asif Luna, Dr. Edwards Attending Provider [phone] Friend, Dr. Muhammad Attending Provider [phone] Dr. Deepika Fabian Primary Care Provider Dr. Deepika Fabian Referring Provider [phone] GINA Sosa Attending Provider Dr. Deepika Fabian Attending Provider [phone] Aleksey DUNN, [facility] Primary Care Provider Caren DUNN, [...] [phone] Caren, Deepika Primary Care Unavailable [employer], Deepika Attending Unavailable [employer], Deepika Referring Unavailable Emma Pitts Attending Unavailabl e Caren, Deepika Referring Unavailable [employer], Deepika Primary Care Unavailable Emma Pitts Attending Unavailabl e Caren, Deepika Referring Unavailable Caren, Deepika Primary Care Unavailable Caren, Deepika Attending Unavailable [employer], Deepika Referring Unavailable [employer], Deepika Primary Care Unavailable [employer], Deepika Attending Unavailable [employer], Deepika Referring Unavailable [employer], Deepika Primary Care Unavailable [employer], Deepika Attending Unavailable [employer], Deepika Referring Unavailable Caren, Deepika Primary Care Unavailable [employer], Deepika Primary Care Unavailable Caren, Deepika Attending Unavailable [employer], Deepika Referring Unavailable Caren, Deepika Primary Care Unavailable Friend, Jb Attending Unavailable Friend, Jb Referring Unavailable Caren, Deepika Primary Care Unavailable Friend, Jb Attending Unavailable Caren, Deepika Referring Unavailable [employer], Deepika Primary Care Unavailable Terrell Sosa Attending Unavailable [employer], Deepika Referring Unavailable Caren, Deepika Attending Unavailable Caren, Deepika Referring Unavailable Caren, Deepika Primary Care Unavailable Caren, Deepika Primary Care Unavailable [employer], Deepika Attending Unavailable [employer], Deepika Referring Unavailable Caren DUNN, Dr. Poe Primary Care Physician [phone] Caren DUNN, Dr. Poe Attending Physician Dr. Deepika Fabian MD Referring Provider Kirstin DUNN, Dr. Millan Attending Physician Allergies Allergy Classification Reported Allergen(s) Allergy Type Date of Onset Reaction(s) Facility (20 sources) Clindamycin Drug Allergy 09-06-20 18 Intolerance, Hypertension [facility] Work Phone: (20 sources) Glucosamine Drug Allergy 10-18-19 10 Intolerance, Other: See Comments, Arthralgia [facility] (20 sources) Hyoscyamine Drug Allergy 11-02-19 21 Swelling [facility] Work Phone: (20 sources) Penicillins; Translations: [Penicillins] Allergy to substance 09-18-20 21 Hives [facility] Work Phone: (19 sources) Fxtzuee-Tgw-Ksv Reductase Inhibitor; Translations: [Zkwbiit-Ubm-Hcr Reductase Inhibitor] Allergy to substance 09-18-20 21 Pain in joints [facility] (14 sources) Aloe vera preparation Drug Allergy 02-08-20 17 Other: See Comments [facility] (14 sources) cumin allergenic extract Drug Allergy 09-23-20 20 GI Upset, Abdominal Discomfort [facility] Work Phone: (8 sources) HMG-CoA reductase inhibitor Propensity to adverse reactions to drug 10-18-19 10 Intolerance [facility] (13 sources) Turmeric extract Drug Allergy 09-23-20 20 GI Upset [facility] Work Phone: (14 sources) Venom-Wasp Propensity to adverse reactions to drug 06-02-20 21 Swelling [facility] (1 source) Benzocaine / Triclosan Drug Allergy 02-08-20 17 Fatigue [facility] (1 source) Curcumin Drug Allergy 09-23-20 20 Abdominal Discomfort [facility] (1 source) Hmg-Coa Reductase Inhibitors (Statins) Propensity to adverse reactions to drug 02-16-20 22 Myalgia [facility] (1 source) Hyoscyamine Drug Allergy 11-02-19 21 Swelling [facility] (6 sources) HMG-CoA reductase inhibitor Propensity to adverse reactions to drug 10-18-19 10 Intolerance [facility] (4 sources) Nitrofurantoin Drug Allergy 01-29-20 25 altered mental status [facility] (1 source) Clindamycin Drug Allergy 06-29-20 25 [facility] (1 source) Glucosamine Drug Allergy 06-29-20 25 [facility] (1 source) Hyoscyamine Drug Allergy 06-29-20 25 [facility] (1 source) Nitrofurantoin Drug Allergy 06-29-20 25 [facility] Medications Current Medications Medication Drug Class(es) [...] Comment on above: Take 1 tablet by smami th once daily. cholecalciferol 0.025 mg oral [...] Comment on above: Take 1 tablet by [facility] twice daily as needed for up [...] Start: 10-04-2010 take 2 tablets by mo [facility] once daily Methylsulfonylmethane (MSM) 500 mg ORAL [...] Start: 4 End: 4 Salicylic Acid (Medicated [place] Removers) 40 % adhesive patch,medicated Discontinued 1 [...] sources) Long-term current use of anticoagulant; Translations: [correction (current) use of anticoagulants] 07-15-2022 Episodic Other [...] Reference Range Facility Internal Medicine Office Vis [facility] 06-26-2025 Internal Medicine Office Visit [facility] [address] [place] [address] OFFICE VISIT Date of Service: 06/29/25 MR#: [id number] Acct: [id number] Name: DEA MERRITT Rep #: [id number] : 1935 Provider: Dr. 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 COLIN-7 BMS COLIN-7 Feeling nervous, anxious, or [...] COLIN-7 score (more content not included)... Normal [facility] Absolute lymphocyte countOrd ered By: Deepika Fabian on 03-31-2025 Lymphocytes Auto (Unsp spec) [#/Vol] 1.39 10*3/uL 0.83-4.51 [facility] Absolute neutrophil countOrd ered By: Deepika Fabian on 03-31-2025 Neutrophils (Bld) [#/Vol] 2.8 10*3/uL 2.0-7.7 [facility] Anion gap in Serum or Plasma Ordered By: Deepika Fabian on 03-31-2025 Anion gap [Moles/Vol] 11 mmol/L 5-15 [facility] Automated lymphocyte count a s percentage of total leukocytesOrdered By: Deepika Fabian on 03-31-2025 Lymphocytes/100 WBC Auto (Unsp spec) 28.1 % 19-41 [facility] BUN/creatinine ratioOrdered By: Deepika Fabian on 03-31-2025 Urea nitrogen/Creatinine [Mass ratio] 17.1 mg/mg 10-20 [facility] Basophil percentageOrdered B y: Deepika Fabian on 03-31-2025 Basophils/100 WBC (Bld) 1.4 % High 0-1 [facility] Bilirubin, totalOrdered By: Deepika Fabian on 03-31-2025 Bilirubin [Mass/Vol] 0.41 mg/dL 0.00-1.30 [facility] CBC W/Diff, Automatedon 03-09 Absolute Lymph 1.39 X10 3/uL Normal 0.83-4.51 [facility] Comment on above: Performed By: #### L 500.4100, L506.1001, L503.0106, L100.0100, L500.4050 ####[facility] [address] [place], [address] Absolute Neut 2.8 X10 3/uL Normal 2.0-7.7 [facility] Comment on above: Performed By: #### L 500.4100, L506.1001, L503.0106, L100.0100, L500.4050 ####[facility] [address] [place], [address] Basophils/100 WBC (Bld) 1.4 % High 0-1 [facility] Comment on above: Performed By: #### L 500.4100, L506.1001, L503.0106, L100.0100, L500.4050 ####[facility] [address] [place], [address] Eosinophils/100 WBC (Bld) 4.4 % Normal 0-5 [facility] Comment on above: Performed By: #### L 500.4100, L506.1001, L503.0106, L100.0100, L500.4050 ####[facility] [address] [place], [address] Erythrocyte distribution width (RBC) [Ratio] 11.9 % Normal 11.6-14.6 [facility] Comment on above: Performed By: #### L 500.4100, L506.1001, L503.0106, L100.0100, L500.4050 ####[facility] [address] [place], [address] Hematocrit (Bld) [Volume fraction] 42.4 % Normal 37-47 [facility] Comment on above: Performed By: #### L 500.4100, L506.1001, L503.0106, L100.0100, L500.4050 ####[facility] [address] [place], [address] Hemoglobin (Bld) [Mass/Vol] 14.1 g/dL Normal 12.0-15. 0 [facility] Comment on above: Performed By: #### L 500.4100, L506.1001, L503.0106, L100.0100, L500.4050 ####[facility] [address] [place], [address] IG% 0.200 Normal 0.0-0.9 [facility] Comment on above: Result Comment: IG% - Immature Granulocytes (promyelocytes, myelocytes and metamyelocytes) > 1% indicates that a LEFT SHIFT is Present. Performed By: #### L 500.4100, L506.1001, L503.0106, L100.0100, L500.4050 ####[facility] [address] [place], [address] Lymphocytes/100 WBC (Bld) 28.1 % Normal 19-41 [facility] Comment on above: Performed By: #### L 500.4100, L506.1001, L503.0106, L100.0100, L500.4050 ####[facility] [address] [place], [address] MCH (RBC) [Entitic mass] 32.4 pg High 27.0-32.0 [facility] Comment on above: Performed By: #### L 500.4100, L506.1001, L503.0106, L100.0100, L500.4050 ####[facility] [address] [place], [address] MCHC (RBC) [Mass/Vol] 33.3 g/dL Normal 32-36 [facility] Comment on above: Performed By: #### L 500.4100, L506.1001, L503.0106, L100.0100, L500.4050 ####[facility] [address] [place], [address] MCV (RBC) [Entitic vol] 97.5 fL Normal 81-99 [facility] Comment on above: Performed By: #### L 500.4100, L506.1001, L503.0106, L100.0100, L500.4050 ####[facility] [address] [place], [address] Monocytes/100 WBC (Bld) 8.5 % Normal 0-10 [facility] Comment on above: Performed By: #### L 500.4100, L506.1001, L503.0106, L100.0100, L500.4050 ####[facility] [address] [place], [address] Neutrophils/100 WBC (Bld) 57.4 % Normal 47-70 [facility] Comment on above: Performed By: #### L 500.4100, L506.1001, L503.0106, L100.0100, L500.4050 ####[facility] [address] [place], [address] Nucleated RBC (Bld) [#/Vol] 0 10*3/uL Normal 0-5 [facility] Comment on above: Performed By: #### L 500.4100, L506.1001, L503.0106, L100.0100, L500.4050 ####[facility] [address] [place], [address] Platelet mean volume (Bld) [Entitic vol] 11.7 fL Normal 6.2-12.0 [facility] Comment on above: Performed By: #### L 500.4100, L506.1001, L503.0106, L100.0100, L500.4050 ####[facility] [address] [place], [address] Platelets (Bld) [#/Vol] 261 10*3/uL Normal 150-450 [facility] Comment on above: Performed By: #### L 500.4100, L506.1001, L503.0106, L100.0100, L500.4050 ####[facility] [address] [place], [address] RBC (Bld) [#/Vol] 4.35 10*6/uL Normal 4.2-5.4 [facility] Comment on above: Performed By: #### L 500.4100, L506.1001, L503.0106, L100.0100, L500.4050 ####[facility] [address] [place], [address] RDW SD 43.1 fl Normal 35.1-43.9 [facility] Comment on above: Performed By: #### L 500.4100, L506.1001, L503.0106, L100.0100, L500.4050 ####[facility] [address] [place], [address] WBC (Bld) [#/Vol] 5.0 10*3/uL Normal 4.4-11.0 [facility] Comment on above: Performed By: #### L 500.4100, L506.1001, L503.0106, L100.0100, L500.4050 ####[facility] [address] [place], [address] Calculated very low density lipoprotein (VLDL) cholesterol measurementOrdered By: Deepika Fabian on 03-31-2025 Calculated very low density lipoprotein (VLDL) cholesterol measurement 25 mg/dL 5-40 [facility] Carbon dioxide, total [Moles /volume] in Central venous bloodOrdered By: Deepika Fabian on 03-31-2025 CO2 [Moles/Vol] 26.6 mmol/L 21.0-32.0 [facility] Chloride assayOrdered By: Franco Fabian on 03-31-2025 Chloride [Moles/Vol] 104 mmol/L 98-108 [facility] Comprehensive Metabolic Prof ilon 03-31-2025 Albumin [Mass/Vol] 4.0 g/dL Normal 3.4-4.8 [facility] Comment on above: Performed By: #### L 500.4100, L506.1001, L503.0106, L100.0100, L500.4050 ####[facility] [address] [place], [address] Albumin/Globulin [Mass ratio] 1.4 {ratio} Normal 0.9-2.4 [facility] Comment on above: Performed By: #### L 500.4100, L506.1001, L503.0106, L100.0100, L500.4050 ####[facility] [address] [place], [address] ALK PHOS 80 U/L Normal 35-104 [facility] Comment on above: Performed By: #### L 500.4100, L506.1001, L503.0106, L100.0100, L500.4050 ####[facility] [address] [place], [address] ALT [Catalytic activity/Vol] 20 U/L Normal <=34 [facility] Comment on above: Performed By: #### L 500.4100, L506.1001, L503.0106, L100.0100, L500.4050 ####[facility] [address] [place], [address] AST [Catalytic activity/Vol] 24 U/L Normal <=31 [facility] Comment on above: Performed By: #### L 500.4100, L506.1001, L503.0106, L100.0100, L500.4050 ####[facility] [address] [place], [address] Bilirubin [Mass/Vol] 0.41 mg/dL Normal 0.00-1.30 [facility] Comment on above: Performed By: #### L 500.4100, L506.1001, L503.0106, L100.0100, L500.4050 ####[facility] [address] [place], [address] BUN/CRE 17.1 RATIO Normal 10-20 [facility] Comment on above: Performed By: #### L 500.4100, L506.1001, L503.0106, L100.0100, L500.4050 ####[facility] [address] [place], [address] Calcium [Mass/Vol] 9.4 mg/dL Normal 7.6-11.0 [facility] Comment on above: Performed By: #### L 500.4100, L506.1001, L503.0106, L100.0100, L500.4050 ####[facility] [address] [place], [address] Chloride [Moles/Vol] 104 mmol/L Normal 98-108 [facility] Comment on above: Performed By: #### L 500.4100, L506.1001, L503.0106, L100.0100, L500.4050 ####[facility] [address] [place], [address] CO2 [Moles/Vol] 26.6 mmol/L Normal 21.0-32.0 [facility] Comment on above: Performed By: #### L 500.4100, L506.1001, L503.0106, L100.0100, L500.4050 ####[facility] [address] [place], [address] Creatinine [Mass/Vol] 0.71 mg/dL Normal 0.70-1.20 [facility] Comment on above: Performed By: #### L 500.4100, L506.1001, L503.0106, L100.0100, L500.4050 ####[facility] [address] [place], [address] GAP 11 Normal 5-15 [facility] Comment on above: Performed By: #### L 500.4100, L506.1001, L503.0106, L100.0100, L500.4050 ####[facility] [address] [place], [address] GFR/1.73 sq M.predicted among non-blacks MDRD (S/P/Bld) [Vol rate/Area] 83 mL/min/{1.73_m2} Normal >60 [facility] Comment on above: Result Comment: mL/m in/1.73m2 CKD-EPI Creatinine Equation (2020) Performed By: #### L 500.4100, L506.1001, L503.0106, L100.0100, L500.4050 ####[facility] [address] [place], [address] Globulin (S) [Mass/Vol] 2.8 g/dL Normal 2.2-4.2 [facility] Comment on above: Performed By: #### L 500.4100, L506.1001, L503.0106, L100.0100, L500.4050 ####[facility] [address] [place], [address] Glucose [Mass/Vol] 89 mg/dL Normal 70-99 [facility] Comment on above: Performed By: #### L 500.4100, L506.1001, L503.0106, L100.0100, L500.4050 ####[facility] [address] [place], [address] Potassium [Moles/Vol] 4.2 mmol/L Normal 3.3-5.1 [facility] Comment on above: Performed By: #### L 500.4100, L506.1001, L503.0106, L100.0100, L500.4050 ####[facility] [address] [place], [address] Sodium [Moles/Vol] 141 mmol/L Normal 133-145 [facility] Comment on above: Performed By: #### L 500.4100, L506.1001, L503.0106, L100.0100, L500.4050 ####[facility] [address] [place], [address] T PROT 6.8 g/dL Normal 5.9-8.4 [facility] Comment on above: Performed By: #### L 500.4100, L506.1001, L503.0106, L100.0100, L500.4050 ####[facility] [address] [place], [address] Urea nitrogen [Mass/Vol] 12 mg/dL Normal 4-19 [facility] Comment on above: Performed By: #### L 500.4100, L506.1001, L503.0106, L100.0100, L500.4050 ####[facility] [address] [place], [address] Eosinophil percentageOrdered By: Deepika Fabian on 03-31-2025 Eosinophils/100 WBC (Bld) 4.4 % 0-5 [facility] Erythrocyte distribution wid th ratioOrdered By: Deepika Fabian on 03-31-2025 Erythrocyte distribution width (RBC) [Ratio] 11.9 % 11.6-14.6 [facility] Erythrocyte distribution wid th standard deviationOrdered By: Deepika Fabian on 03-31-2025 Erythrocyte distribution width (RBC) [Ratio] 43.1 fl 35.1-43.9 [facility] Glomerular filtration rate ( GFR) estimation/1.73 sq m using serum, plasma, or whole bOrdered By: Deepika Fabian on 03-31-2025 GFR/1.73 sq M.predicted among non-blacks MDRD (S/P/Bld) [Vol rate/Area] 83 mL/min/{1.73_m2} >60 [facility] Comment on above: mL/min/1.73m2 CKD-EP I Creatinine Equation (2020) Hematocrit Auto (Bld) [Volum e fraction]Ordered By: Deepika Fabian on 03-31-2025 Hematocrit (Bld) [Volume fraction] 42.4 % 37-47 [facility] Hemoglobin measurementOrdere d By: Deepika Fabian on 03-31-2025 Hemoglobin (Bld) [Mass/Vol] 14.1 g/dL 12.0-15. 0 [facility] Immature granulocytes/100 WB C Auto (Bld)Ordered By: Deepika Fabian on 03-31-2025 Immature granulocytes/100 WBC (Bld) 0.200 % 0.0-0.9 [facility] Comment on above: IG% - Immature Granu locytes (promyelocytes, myelocytes and metamyelocytes) > 1% indicates that a LEFT SHIFT is Present. LDL calc ser/plasOrdered By: Deepika Fabian on 03-31-2025 Cholesterol in LDL [Mass/Vol] 217 mg/dL [facility] Comment on above: Jngxryifeh=199-694 m g/dL & Higher Ojgs=649 mg/dL or greater Laboratory - Chemistry and C hemistry - challengeOrdered By: Deepika Fabain on 03-31-2025 AST [Catalytic activity/Vol] 24 U/L <32 [facility] Lipid Profileon 03-31-2025 CHOL:HDL 4.59 Normal [facility] Comment on above: Performed By: #### L 500.4100, L506.1001, L503.0106, L100.0100, L500.4050 ####[facility] [address] [place], [place], [address] Cholesterol [Mass/Vol] 310 mg/dL High <=200 [facility] Comment on above: Result Comment: Chol esterol level, Desirable <200 mg/dL Borderline high cholesterol 200-239 mg/dL High cholesterol >=240 mg/dL Recommendations of the NCEP Adult Treatment Panel for the following risk-cutoff thresholds for the [place] population. Performed By: #### L 500.4100, L506.1001, L503.0106, L100.0100, L500.4050 ####[facility] [address] [place], [address] Cholesterol in HDL [Mass/Vol] 68 mg/dL Normal [facility] Comment on above: Result Comment: Mikala onal Cholesterol Education Program (NCEP) guidelines: <40 mg/dL: Low HDL-cholesterol (major risk factor for CHD) >= 60 mg/dL: High HDL-cholesterol (negative risk factor for CHD) HDL-cholesterol is affected by a number of factors, e.g. smoking, exercise, hormones, sex and age. Performed By: #### L 500.4100, L506.1001, L503.0106, L100.0100, L500.4050 ####[facility] [address] [place], [address] Cholesterol in LDL [Mass/Vol] 217 mg/dL Normal [facility] Comment on above: Result Comment: Bord xuhkqw=576-569 mg/dL Higher Dixn=569 mg/dL or greater Performed By: #### L 500.4100, L506.1001, L503.0106, L100.0100, L500.4050 ####[facility] [address] [place], [address] Cholesterol in VLDL [Mass/Vol] 25 mg/dL Normal 5-40 [facility] Comment on above: Performed By: #### L 500.4100, L506.1001, L503.0106, L100.0100, L500.4050 ####[facility] [address] [place], [address] Triglyceride [Mass/Vol] 126 mg/dL Normal [facility] Comment on above: Result Comment: The drugs N-Acetylcysteine and Metamizole may falsely depress this assay. Normal range: <150 mg/dL Borderline High: 150-199 mg/dL High: 200-499 mg/dL Very High: >500 mg/dL Performed By: #### L 500.4100, L506.1001, L503.0106, L100.0100, L500.4050 ####[facility] [address] [place], [address] MCV (mean corpuscular volume ) determinationOrdered By: Deepika Fabian on 03-31-2025 MCV (RBC) [Entitic vol] 97.5 fL 81-99 [facility] Mean corpuscular hemoglobin (MCH) determinationOrdered By: Deepika Fabian on 03-31-2025 MCH (RBC) [Entitic mass] 32.4 pg High 27.0-32.0 [facility] Mean corpuscular hemoglobin concentration (MCHC) determinationOrdered By: Deepika Fabian on 03-31-2025 MCHC (RBC) [Mass/Vol] 33.3 g/dL 32-36 [facility] Mean platelet volume determi nationOrdered By: Deepika Fabian on 03-31-2025 Platelet mean volume (Bld) [Entitic vol] 11.7 fL 6.2-12.0 [facility] Monocyte percentageOrdered B y: Deepika Fabian on 03-31-2025 Monocytes/100 WBC (Bld) 8.5 % 0-10 [facility] Neutrophil percentageOrdered By: Deepika Fabian on 03-31-2025 Neutrophils/100 WBC (Bld) 57.4 % 47-70 [facility] Nucleated red blood cell per centageOrdered By: Deepika Fabian on 03-31-2025 Nucleated RBC/100 WBC (Bld) [Ratio] 0 % 0-5 [facility] Platelet countOrdered By: Franco Fabian on 03-31-2025 Platelets (Bld) [#/Vol] 261 10*3/uL 150-450 [facility] Potassium measurement (mass/ volume)Ordered By: Deepika Fabian on 03-31-2025 Potassium (Unsp spec) [Mass/Vol] 4.2 mmol/L 3.3-5.1 [facility] RBC Auto (Bld) [#/Vol]Ordere d By: Deepika Fabian on 03-31-2025 RBC (Bld) [#/Vol] 4.35 10*6/uL 4.2-5.4 [facility] Screening total cholesterol/ high density lipoprotein (HDL) cholesterol ratioOrdered By: Deepika Fabian on 03-31-2025 Cholesterol.total/Cholester ol in HDL [Mass ratio] 4.59 {ratio} [facility] Serum creatinine measurement (mass/volume)Ordered By: Deepika Fabian on 03-31-2025 Creatinine [Mass/Vol] 0.71 mg/dL 0.70-1.20 [facility] Serum globulin measurementOr dered By: Deepika Fabian on 03-31-2025 Globulin (S) [Mass/Vol] 2.8 g/dL 2.2-4.2 [facility] Serum glucose measurement (m ass/volume)Ordered By: Deepika Fabian on 03-31-2025 Glucose [Mass/Vol] 89 mg/dL 70-99 [facility] Serum or plasma alanine hernandez otransferase (ALT) measurementOrdered By: Deepika Fabian on 03-31-2025 ALT [Catalytic activity/Vol] 20 U/L <35 [facility] Serum or plasma albumin alissa urement (mass/volume)Ordered By: Deepika Fabian on 03-31-2025 Albumin [Mass/Vol] 4.0 g/dL 3.4-4.8 [facility] Serum or plasma albumin/glob ulin mass ratioOrdered By: Deepika Fabian on 03-31-2025 Albumin/Globulin [Mass ratio] 1.4 {ratio} 0.9-2.4 [facility] Serum or plasma alkaline waleska sphatase measurementOrdered By: Deepika Fabian on 03-31-2025 ALP [Catalytic activity/Vol] 80 U/L 35-104 [facility] Serum or plasma calcium alissa urement (mass/volume)Ordered By: Deepika Fabian on 03-31-2025 Calcium [Mass/Vol] 9.4 mg/dL 7.6-11.0 [facility] Serum or plasma cholesterol in HDL measurement (mass/volume)Ordered By: Deepika Fabian on 03-31-2025 Cholesterol in HDL [Mass/Vol] 68 mg/dL >40 [facility] Comment on above: National Cholesterol Education Program (NCEP) guidelines:<40 mg/dL: Low HDL-cholesterol (major risk factor for CHD)>= 60 mg/dL: High HDL-cholesterol (negative risk factor for CHD)HDL-cholesterol is affected by a number of factors, e.g. smoking, exercise, hormones, sex and age. Serum or plasma cholesterol measurement (mass/volume)Ordered By: Deepika Fabian on 03-31-2025 Cholesterol [Mass/Vol] 310 mg/dL High <201 [facility] Comment on above: Cholesterol level, D esirable <200 mg/dLBorderline high cholesterol 200-239 mg/dLHigh cholesterol >=240 mg/dLRecommendations of the NCEP Adult Treatment Panel for the following risk-cutoff thresholds for the [place] population. Serum or plasma urea nitroge n measurement (mass/volume)Ordered By: Deepika Fabian on 03-31-2025 Urea nitrogen [Mass/Vol] 12 mg/dL 4-19 [facility] Sodium levelOrdered By: Wayne Fabian on 03-31-2025 Sodium [Moles/Vol] 141 mmol/L 133-145 [facility] Total proteinOrdered By: Ray Fabian on 03-31-2025 Protein [Mass/Vol] 6.8 g/dL 5.9-8.4 [facility] Triglycerides measurementOrd ered By: Deepika Fabian on 03-31-2025 Triglyceride [Mass/Vol] 126 mg/dL <199 [facility] Comment on above: The drugs N-Acetylcy steine and Metamizole may falsely depress this assay. Normal range: <150 mg/dLBorderline High: 150-199 mg/dLHigh: 200-499 mg/dLVery High: >500 mg/dL Vitamin B12on 03-31-2025 Cobalamin (Vitamin B12) [Mass/Vol] 1784 pg/mL High 180-914 [facility] Comment on above: Performed By: #### L 500.4100, L506.1001, L503.0106, L100.0100, L500.4050 ####[facility] [address] [place], [place], [address] Vitamin B12 ser/plasOrdered By: Deepika Fabian on 03-31-2025 Cobalamin (Vitamin B12) [Mass/Vol] 1784 pg/mL High 180-914 [facility] Vitamin D,25 Hydroxyon 03-31 Vitamin D 25-OH 34.7 ng/mL Normal 30-100 [facility] Comment on above: Result Comment: Kasandra min D Status Deficiency: <20 ng/mL (50nmol/L) Insufficiency: 20-30 ng/mL (50-75 nmol/L) Sufficiency: 30-100 ng/mL (75-250 nmol/L) Toxicity: >100 ng/mL (>250 nmol/L) Performed By: #### L 500.4100, L506.1001, L503.0106, L100.0100, L500.4050 ####[facility] [address] [place], [address] White blood cell (WBC) count Ordered By: Deepika Fabian on 03-31-2025 WBC (Bld) [#/Vol] 5.0 10*3/uL 4.4-11.0 [facility] Internal Medicine Office Vis iton 03-30-2025 Internal Medicine Office Visit [facility] [address] [place] [address] [address] [place], [place] [address] OFFICE VISIT Date of Service: 03/31/25 MR#: [id number] Acct: [id number] Name: DEA MERRITT Rep #: [id number] : 1935 Provider: Dr. Deepika goff MD Age/Sex: 89/F Location: [facility] Status: Signed Intake Vital Signs 11/13/24 09:58 [...] M FU Chief Complaint: 3 M Fu Information Technology Security Analyst Required: No Accompanied by: Self Is patient in pain?: No Allergies clindamycin Allergy (Verified 03/31/25 08:10) Other hyoscyamine Allergy (Verified 03/31/25 08:10) Other Penicillins Allergy (Verified 03/31/25 08:10) Hives Vxelzhq-NXC-FmJ Reductase Inhibitor (Zdgokht-Zlc-Ovw Reductase Inhibitor) Allergy (Verified 03/31/25 08:10) Pain [...] not severe typically post eating [facility] Medical History Cellulitis of mid back region [...] none 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 COLIN-7 BMS COLIN-7 Feeling nervous, anxious, or on edge: 0 = Not at all Not bein (more content not included)... Normal [facility] Urine Cultureon 02-01-2025 URC Mixed Gram Pos Gram Neg Org [place] Count 11,000-25,000 MIXC Mixed contaminants. Submit a new specimen if indicated. Normal [facility] Comment on above: Performed By: #### M 100.2200, L400.0001 #### [facility] [address] [place], [address] Urinalysis, Completeon 01-29 EPI,SQUAMOUS 0-5 SEEN Normal 5-10 [facility] Comment on above: Order Comment: CLEAN CATCH Performed By: #### M 100.2200, L400.0001 #### [facility] [address] [place], [place], [address] Bilirubin Test strip Ql (U)O rdered By: Deepika Fabian on 01-28-2025 Bilirubin Ql (U) Negative Negative [facility] Cardiology Visit Reporton Cardiology Visit Report [facility] [address] [place], [place] [address] OFFICE VISIT Date of Service: 01/28/25 MR#: [id number] Acct: [id number] Name: DEA MERRITT Rep #: [id number] : 1935 Provider: GINA Guevara Age/Sex: 89/F Location: [facility] Status: Signed HPI HPI History of Present Illness Details: Dea Merritt is an 89-year-old lady with a history of hypertension hyperlipidemia intolerant of any statins and gastroesophageal reflux disease. She presented to [facility] with left facial droop and confusion on February 15, 2022. She apparently attended alevism and then drove home around 1 PM and was driving erratically. Her neighbors drove her home and then she was brought to the emergency room. CT scan of the brain was negative for acute changes she was sent to [facility] with CT angiogram of the head and [...] air Intake Visit Reasons: Dizziness/More Frequent Urination Information Technology Security Analyst Required: No Is patient in pain?: No Allergies clindamycin Allergy (Verified 01/28/25 13:57) Other hyoscyamine Allergy (Verified 01/28/25 13:57) Other Penicillins Allergy (Verified 01/28/25 13:57) Hives Nblplmp-UIX-AqL Reductase Inhibitor (Gmrpzjh-Uyi-Qrb Reductase Inhibitor) Allergy (Verified 01/28/25 13:57) Pain [...] office this am per daughter [facility] Medical History (Updated 01/28/25 @ 12:06 by [...] none 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 Normal [facility] Epithelial cells.squamous LM Ql (Urine sed)Ordered By: Deepika Fabian on 01-28-2025 Epithelial cells.squamous LM.HPF (Urine sed) [#/Area] 0 /[HPF] 5-10 [facility] Glucose Ql (U)Ordered By: Franco Fabian on 01-28-2025 Urine Glucose (UA) Normal mg/dl Normal [facility] Ketones Test strip Ql (U)Ord ered By: Deepika Fabian on 01-28-2025 Ketones Ql (U) Negative Negative [facility] Microscopic analysis of urin e for red blood cells (RBC)Ordered By: Deepika Fabian on 01-28-2025 Microscopic analysis of urine for red blood cells (RBC) 0 SEEN /hpf 0-5 [facility] Urine RBC 0 SEEN /hpf 0-5 [facility] Mucus LM Ql (Urine sed)Order ed By: Deepika Fabian on 01-28-2025 Mucus Ql (Urine sed) 0 SEEN /hpf [facility] Nitrite Test strip Ql (U)Ord ered By: Deepika Fabian on 01-28-2025 Nitrite Ql (U) Negative Negative [facility] Protein Test strip Ql (U)Ord ered By: Deepika Fabian on 01-28-2025 Protein Ql (U) Negative Negative [facility] Squamous epithelial cells de tection in urine sediment by light microscopyOrdered By: Deepika Fabian on 01-28-2025 Epithelial cells.squamous LM Ql (Urine sed) 0-5 SEEN /hpf 5-10 [facility] Urinalysis, Completeon 01-28 BACTERIA 0 SEEN Normal None Seen [facility] Comment on above: Order Comment: CLEAN CATCH Performed By: #### M 100.2200, L400.0001 #### [facility] [address] [place], [address] Mucus Ql (Urine sed) 0 SEEN Normal [facility] Comment on above: Order Comment: CLEAN CATCH Performed By: #### M 100.2200, L400.0001 #### [facility] [address] [place], [address] RBC 0 SEEN Normal 0-5 [facility] Comment on above: Order Comment: CLEAN CATCH Performed By: #### M 100.2200, L400.0001 #### [facility] [address] [place], [address] WBC 0 SEEN Normal 0-5 [facility] Comment on above: Order Comment: CLEAN CATCH Performed By: #### M 100.2200, L400.0001 #### [facility] [address] [place], [address] Urine blood detectionOrdered By: Deepika Fabian on 01-28-2025 Urine Occult Blood Negative Negative [facility] Urine clarityOrdered By: Ray Fabian on 01-28-2025 Clarity (U) Clear Clear [facility] Urine color determinationOrd ered By: Deepika Fabian on 01-28-2025 Color (U) Yellow Yellow [facility] Urine cultureOrdered By: Ray Fabian on 01-28-2025 Bacteria identified Cx Nom (U) Mixed Gram Pos & Gram Neg Org Abnormal [facility] Urine glucose detectionOrder ed By: Deepika Fabian on 01-28-2025 Glucose Ql (U) Normal mg/dl Normal [facility] Urine leukocyte esterase det ection by dipstickOrdered By: Deepika Fabian on 01-28-2025 Leukocyte esterase Test strip Ql (U) Negative Negative [facility] Urine pHOrdered By: Deepika morrow on 01-28-2025 pH (U) 8.0 [pH] 5.0 - 8.0 [facility] Urine sediment bacteria coun t by microscopy (number/high power field)Ordered By: Deepika Fabian on 01-28-2025 Bacteria LM.HPF (Urine sed) [#/Area] 0 /[HPF] None Seen [facility] Urine specific gravity measu rementOrdered By: Deepika Fabian on 01-28-2025 Specific gravity (U) [Rel density] 1.010 1.002-1.03 0 [facility] Urine urobilinogen measureme ntOrdered By: Deepika Fabian on 01-28-2025 Urobilinogen Ql (U) Normal mg/dl Normal [facility] Urobilinogen Ql (U)Ordered B y: Deepikamargi Fabian on 01-28-2025 Urine Urobilinogen Normal mg/dl Normal [facility] White blood cell countOrdere d By: Deepika Fabian on 01-28-2025 Urine WBC 0 SEEN /hpf 0-5 [facility] White blood cell count 0 SEEN /hpf 0-5 [facility] Internal Medicine Office Vis iton 01-27-2025 Internal Medicine Office Visit [facility] [address] [place] [address] [place] [address] OFFICE VISIT Date of Service: 01/28/25 MR#: [id number] Acct: [id number] Name: DEA MERRITT Rep #: [id number] : 1935 Provider: Dr. Deepika goff MD Age/Sex: 89/F Location: [facility] Status: Signed Intake Vital Signs 11/13/24 15:20 01/28/25 07:43 01/28/25 10:12 Height 5 ft 5 ft 5 ft Weight: 107 lb BMI 20.9 BP 120/80 Blood Pressure Location Lt brachial Position Sitting Respiration 16 Pulse 66 Pulse Source Monitor Temp 97.9 F Temp Source Temporal Pulse Oximetry (%) 97 Oxygen Delivery Method room air Intake Visit Reasons: FREQUENT URINATION/DIZZINESS Chief Complaint: Information Technology Security Analyst Required: No Accompanied by: Daughter Allergies clindamycin Allergy (Verified 01/28/25 09:59) Other hyoscyamine Allergy (Verified 01/28/25 09:59) Other Penicillins Allergy (Verified 01/28/25 09:59) Hives Qfvyhcs-ZHJ-OgD Reductase Inhibitor (Pqqdzyl-Mxh-Jkz Reductase Inhibitor) Allergy (Verified 01/28/25 09:59) Pain [...] is okay to restart it. 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 Normal [facility] Cardiology Visit Reporton Cardiology Visit Report [facility] [address] [place] [address] OFFICE VISIT Date of Service: 11/13/24 MR#: [id number] Acct: [id number] Name: DEA MERRITT Rep #: [id number] : 1935 Provider: GINA Guevara Age/Sex: 89/F Location: [facility] Status: Signed HPI HPI History of Present Illness Details: Dea Merritt is an 89-year-old lady with a history of hypertension hyperlipidemia intolerant of any statins and gastroesophageal reflux disease. She presented to [facility] with left facial droop and confusion on February 15, 2022. She apparently attended alevism and then drove home around 1 PM and was driving erratically. Her neighbors drove her home and then she was brought to the emergency room. CT scan of the brain was negative for acute changes she was sent to [facility] with CT angiogram of the head and [...] 95 Intake Visit Reasons: 1 Y FU Information Technology Security Analyst Required: No Is patient in pain?: No Allergies clindamycin Allergy (Verified 11/13/24 15:18) Other hyoscyamine Allergy (Verified 11/13/24 15:18) Other Penicillins Allergy (Verified 11/13/24 15:18) Hives Zlrfyoo-IZM-ItT Reductase Inhibitor (Zcazxoo-Fsd-Bpv Reductase Inhibitor) Allergy (Verified 11/13/24 15:18) Pain [...] medication list, states no changes [facility] Medical History Cellulitis of mid back region [...] none 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 Normal [facility] Internal Medicine Office Vis iton 11-12-2024 Internal Medicine Office Visit [facility] [address] [place] [address] [place] [address] OFFICE VISIT Date of Service: 11/13/24 MR#: [id number] Acct: [id number] Name: DEA MERRITT Rep #: [id number] : 1935 Provider: Dr. Deepika goff MD Age/Sex: 89/F Location: [facility] Status: Signed Intake Vital Signs 08/05/24 10:26 11/13/24 09:58 Height 5 ft 5 ft Weight: 111 lb BMI 21.7 BP 104/58 L Blood Pressure Location Rt brachial Position Sitting Respiration 16 Pulse 60 Pulse Source Palpation Temp 96.3 F L Temp Source Temporal Intake Visit Reasons: 4 M FU Chief Complaint: 3 M Fu Information Technology Security Analyst Required: No Accompanied by: Self Is patient in pain?: No Allergies clindamycin Allergy (Verified 11/13/24 09:51) Other hyoscyamine Allergy (Verified 11/13/24 09:51) Other Penicillins Allergy (Verified 11/13/24 09:51) Hives Vcdzeog-IFX-ZeE Reductase Inhibitor (Yjtcheq-Imv-Wdm Reductase Inhibitor) Allergy (Verified 11/13/24 09:51) Pain [...] working with chiropractor on excercises [facility] Medical History Cellulitis of mid back region [...] 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 Normal [facility] Abdomen/Pelvis WITH Contrast on 08-05-2024 Abdomen/Pelvis WITH Contrast [facility] Services [address] [place] [address] Abdomen/Pelvis WITH Contrast MR#: [id number] Acct: [id number] Name: DEA MERRITT Rep #: [id number] : 1935 F 88 From: Waylon tate MD PCP: Dr. Deepika Fabian MD Status: REG CLI Study: Abdomen/Pelvis WITH Contrast Date of Exam: Exam# [id number] Ordering Dr: Jb Wood DO [id number] STUDY: CT ABDOMEN AND PELVIS WITH CONTRAST [...] CC: Dr. Deepika Fabian MD; Jb Wood, Offshoring Manager: Signed Normal [facility] CREATININE FINGERSTICKon CREATININE WB < 1.0 Normal 0.55-1.02 [facility] Comment on above: Performed By: #### L 9100.0200 #### [facility] [address] [place], [address] EGFR WB > 60.0000 Normal >60 [facility] Comment on above: Performed By: #### L 9100.0200 #### [facility] [address] [place], [address] Ferritinon 08-05-2024 Ferritin [Mass/Vol] 71 ng/mL Normal 8-252 [facility] Comment on above: Performed By: #### L 503.6550, L503.6030, L506.1000, L503.0105 ####[facility] [address] [place], [address] Iron+Iron Binding Capacityon 08-05-2024 Iron [Mass/Vol] 79 ug/dL Normal 50-170 [facility] Comment on above: Performed By: #### L 503.6550, L503.6030, L506.1000, L503.0105 ####[facility] [address] [place], [address] IRON SATURATION 27.7 Normal 15.0-55.0 [facility] Comment on above: Performed By: #### L 503.6550, L503.6030, L506.1000, L503.0105 ####[facility] [address] [place], [address] TIBC 285 ug/dL Normal 250-450 [facility] Comment on above: Performed By: #### L 503.6550, L503.6030, L506.1000, L503.0105 ####[facility] [address] [place], [address] Vitamin B12on 08-05-2024 Cobalamin (Vitamin B12) [Mass/Vol] 567 pg/mL Normal 211-911 [facility] Comment on above: Performed By: #### M 100.2200, L400.0001 #### [facility] [address] [place], [address] Vitamin D,25 Hydroxyon 08-05 Vitamin D 25-OH 20.4 ng/mL Normal [facility] Comment on above: Result Comment: Kasandra min D 25(OH) Status Range Deficiency <20 ng/mL (50nmol/L) Insufficiency 20 - 30 ng/mL (50 - 75 nmol/L) Sufficiency 30 - 100 ng/mL (75 - 250 nmol/L) Toxicity >100 ng/mL (>250 nmol/L) Performed By: #### M 100.2200, L400.0001 #### [facility] [address] [place], [address] Internal Medicine Office Vis linda 08-04-2024 Internal Medicine Office Visit [facility] [address] [place] [address] [place] [address] OFFICE VISIT Date of Service: 08/05/24 MR#: [id number] Acct: [id number] Name: DEA MERRITT Rep #: [id number] : 1935 Provider: Dr. 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 She saw the mill operator helper in November who did not have further recommendations at the time. She denies any palpitations, chest pain or shortness of breath. She recently followed up with GI for her bowel problems. She is currently off the budesonide and had a repeat CT this morning for further assessment. (more content not included)... Normal [facility] Gastroenterology Visit Repor ton 07-28-2024 Gastroenterology Visit Report [facility] [address] [place] [address] OFFICE VISIT Date of Service: 07/28/24 MR#: [id number] Acct: [id number] Name: DEA MERRITT Rep #: [id number] : 1935 Provider: Jb Wood DO Age/Sex: 88/F Location: [facility] Status: Signed Intake Vital Signs 01/23/24 08:34 04/22/24 08:33 Height 5 ft 1 in 5 ft Intake Visit Reasons: 6 M FU Allergies clindamycin Allergy (Verified 07/10/24 12:52) Other hyoscyamine Allergy (Verified 07/10/24 12:52) Other Penicillins Allergy (Verified 07/10/24 12:52) Hives Mthxtme-IDJ-NlK Reductase Inhibitor (Pletmyc-Wil-Chz Reductase Inhibitor) Allergy (Verified 07/10/24 12:52) Pain [...] 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 [facility] ED 11.01.22 with hypokalemia as noted by PCP workup. IV and PO potassium administered. Discharged with PO potassium supplement. Biochemical CBC. CMP potassium *L2.7, magnesium 2.33. [facility] ED .12.28 with ongoing diarrhea. Prednisone prescribed [...] times a (more content not included)... Normal [facility] Urgent Care Visit Reporton 1 Urgent Care Visit Report [facility] [address] [place] [address] OFFICE VISIT Date of Service: 07/10/24 MR#: [id number] Acct: [id number] Name: DEA MERRITT Rep #: [id number] : 1935 Provider: GINA Taylor Age/Sex: 88/F Location: [facility] Status: Signed Intake Vital Signs 04/22/24 08:33 [...] ON LEFT LEG Chief Complaint: LLE wound Information Technology Security Analyst Required: No Is patient in pain?: No Allergies clindamycin Allergy (Verified 07/10/24 12:52) Other hyoscyamine Allergy (Verified 07/10/24 12:52) Other Penicillins Allergy (Verified 07/10/24 12:52) Hives Ybyvftx-TLV-LwE Reductase Inhibitor (Iewilva-Ibb-Qyq Reductase Inhibitor) Allergy (Verified 07/10/24 12:52) Pain [...] bleeding noted, pt on Xarelto. 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 Normal [facility] Absolute lymphocyte countOrd ered By: Jin Gibson on 09-29-2023 Lymphocytes Auto (Unsp spec) [#/Vol] 2.63 10*3/uL 0.83-4.51 [facility] Basophil percentageOrdered B y: Jin Gibson on 09-29-2023 Basophils/100 WBC (Bld) 1.2 % 0-1 [facility] Chloride [Moles/Vol] 106 mmol/L 98-107 [facility] Eosinophils/100 WBC (Bld) 4.8 % 0-5 [facility] Glucose [Mass/Vol] 105 mg/dL 74-106 [facility] Comment on above: Fasting Glucose resu lt from 100 to 125 mg/dL suggests IMPAIRED HOMEOSTASIS per A.D.A. criteria. Neutrophils (Bld) [#/Vol] 5.7 10*3/uL 2.0-7.7 [facility] Neutrophils/100 WBC (Bld) 58.7 % 47-70 [facility] Potassium [Moles/Vol] 4.0 mmol/L 3.5-5.1 [facility] Sodium [Moles/Vol] 140 mmol/L 136-145 [facility] WBC (Bld) [#/Vol] 9.7 10*3/uL 4.4-11.0 [facility] Blood erythrocytes count (nu mber/volume)Ordered By: Jin Gibson on 09-29-2023 RBC (Bld) [#/Vol] 4.34 10*6/uL 4.2-5.4 [facility] Blood hemoglobin measurement (mass/volume)Ordered By: Jin Gibson on 09-29-2023 Hemoglobin (Bld) [Mass/Vol] 13.6 g/dL 12.0-15. 0 [facility] Blood lymphocytes/100 leukoc ytesOrdered By: Jin Gibson on 09-29-2023 Lymphocytes/100 WBC (Bld) 27.2 % 19-41 [facility] Blood monocytes/100 leukocyt esOrdered By: Jin Gibson on 09-29-2023 Monocytes/100 WBC (Bld) 7.7 % 0-10 [facility] Blood platelet mean volumeOr dered By: Jin Gibson on 09-29-2023 Platelet mean volume (Bld) [Entitic vol] 10.6 fL 6.2-12.0 [facility] Determination of erythrocyte mean corpuscular volume (MCV)Ordered By: Jin Gibson on 09-29-2023 MCV (RBC) [Entitic vol] 99.8 fL 81-99 [facility] Hematocrit Auto (Bld) [Volum e fraction]Ordered By: Jin Gibson on 09-29-2023 Hematocrit (Bld) [Volume fraction] 43.3 % 37-47 [facility] INR in Blood by Coagulation assayOrdered By: Jni Gibson on 09-29-2023 INR Coag (Bld) [Relative time] 2.1 {INR} [facility] - Chemistry and C hemistry - challengeOrdered By: Jin Gibson on 09-29-2023 CO2 [Moles/Vol] 29.0 mmol/L 21.0-32.0 [facility] Urea nitrogen/Creatinine [Mass ratio] 17.6 mg/mg 10-20 [facility] - CoagulationOrde red By: Jin Gibson on 09-29-2023 aPTT Coag (Bld) [Time] 33.2 s 24.1-36.2 [facility] PT Coag (PPP) [Time] 24.2 s 11.7-14.9 [facility] - Hematology and Cell countsOrdered By: Jin Gibson on 09-29-2023 Erythrocyte distribution width (RBC) [Entitic vol] 45.9 fL 35.1-43.9 [facility] Erythrocyte distribution width (RBC) [Ratio] 12.5 % 11.6-14.6 [facility] Immature granulocytes/100 WBC (Bld) 0.400 % 0.0-0.9 [facility] Comment on above: IG% - Immature Granu locytes (promyelocytes, myelocytes and metamyelocytes) > 1% indicates that a LEFT SHIFT is Present. MCH (RBC) [Entitic mass] 31.3 pg 27.0-32.0 [facility] Nucleated RBC/100 WBC (Bld) [Ratio] 0 % 0-5 [facility] MCHC Auto (RBC) [Mass/Vol]Or dered By: Jin Gibson on 09-29-2023 MCHC (RBC) [Mass/Vol] 31.4 g/dL 32-36 [facility] No Panel InformationOrdered By: Jin Gibson on 09-29-2023 Troponin I High Sensitivity 8 pg/mL 3.0-54.0 [facility] Comment on above: Please Note: New [place] t Units and Gender Specific Reference Ranges. For more information see Policy Stat Procedure [place] High Sensitivity Troponin (TNIH) and attachments. Estimated Creatinine Clearance Calc 30.47 ml/min [facility] Estimated GFR (MDRD) Amer 96 mL/min >60 [facility] Comment on above: GFR Calc Estimated GFR (MDRD) Non-Af Amer 80 mL/min >60 [facility] Comment on above: Non- GFR Calc Platelets bldOrdered By: Isadora Gibson on 09-29-2023 Platelets (Bld) [#/Vol] 417 10*3/uL 150-450 [facility] Serum or plasma calcium alissa urement (mass/volume)Ordered By: Jin Gibson on 09-29-2023 Calcium [Mass/Vol] 9.0 mg/dL 8.5-10.1 [facility] Serum or plasma creatinine m easurement (mass/volume)Ordered By: Jin Gibson on 09-29-2023 Creatinine [Mass/Vol] 0.74 mg/dL 0.55-1.02 [facility] Comment on above: The validity of the calculated GFR & GFRAA in patients over 70 years has not been determined. Clinical correlation is essential. Serum or plasma urea nitroge n measurement (mass/volume)Ordered By: Jin Gibson on 09-29-2023 Urea nitrogen [Mass/Vol] 13 mg/dL 7-18 [facility] Thin prep Papanicolaou smear with manual screeningOrdered By: Jin Gibson on 09-29-2023 Thin prep Papanicolaou smear with manual screening 5 5-15 [facility] No Panel Informationon 09-13 Influenza Types A,B Rapid (Clinic) Negative [facility] Basophil percentageOrdered B y: Deepika Fabian on 07-10-2023 Basophil percentage 0-5 SEEN /hpf 0-5 [facility] Bilirubin Test strip Ql (U)O rdered By: Deepika Fabian on 07-10-2023 Bilirubin Ql (U) Negative Negative [facility] Culture, urineOrdered By: Franco Fabian on 07-10-2023 Bacteria identified Cx Nom (U) Culture exhibits no growth. [facility] Ketones Test strip Ql (U)Ord ered By: Deepika Fabian on 07-10-2023 Ketones Ql (U) Negative Negative [facility] Mucus LM Ql (Urine sed)Order ed By: Deepika Fabian on 07-10-2023 Mucus Ql (Urine sed) 0 SEEN /hpf [facility] Nitrite Test strip Ql (U)Ord ered By: Deepika Fabian on 07-10-2023 Nitrite Ql (U) Negative Negative [facility] Protein Test strip Ql (U)Ord ered By: Deepika Fabian on 07-10-2023 Protein Ql (U) Negative Negative [facility] Squamous epithelial cells de tection in urine sediment by light microscopyOrdered By: Deepika Fabian on 07-10-2023 Epithelial cells.squamous LM Ql (Urine sed) 0 SEEN /hpf 5-10 [facility] Urine blood detectionOrdered By: Deepika Fabian on 07-10-2023 RBC Ql (U) 10 /ul Negative [facility] RBC Ql (U) 0 SEEN /hpf 0-5 [facility] Urine clarityOrdered By: Ray Fabian on 07-10-2023 Clarity (U) Clear Clear [facility] Urine color determinationOrd ered By: Deepika Fabian on 07-10-2023 Color (U) Yellow Yellow [facility] Urine glucose detectionOrder ed By: Deepika Fabian on 07-10-2023 Glucose Ql (U) Normal mg/dl Normal [facility] Urine leukocyte esterase det ection by dipstickOrdered By: Deepika Fabina on 07-10-2023 Leukocyte esterase Test strip Ql (U) 25 /ul Negative [facility] Urine pHOrdered By: Deepika morrow on 07-10-2023 pH (U) 6.0 [pH] 5.0 - 8.0 [facility] Urine sediment bacteria coun t by microscopy (number/high power field)Ordered By: Deepika Fabian on 07-10-2023 Bacteria LM.HPF (Urine sed) [#/Area] 0 /[HPF] None Seen [facility] Urine specific gravity measu rementOrdered By: Deepika Fabian on 07-10-2023 Specific gravity (U) [Rel density] 1.010 1.002-1.03 0 [facility] Urobilinogen Auto test strip Ql (U)Ordered By: Deepika Fabian on 07-10-2023 Urobilinogen Ql (U) Normal mg/dl Normal [facility] Culture, urineOrdered By: Kathryn Cheng on 06-28-2023 Bacteria identified Cx Nom (U) Presumptive E. coli [facility] Basophil percentageOrdered B y: Terrell Cheng on 06-27-2023 Basophil percentage >100 SEEN /hpf 0-5 [facility] Bilirubin Test strip Ql (U)O rdered By: Terrell Cheng on 06-27-2023 Bilirubin Ql (U) Negative Negative [facility] Ketones Test strip Ql (U)Ord ered By: Terrell Cheng on 06-27-2023 Ketones Ql (U) Negative Negative [facility] - Chemistry and C hemistry - challengeon 06-27-2023 Bilirubin Ql (U) Negative [facility] Glucose Ql (U) Negative [facility] Ketones Ql (U) Negative [facility] pH (U) 8.0 [pH] [facility] Specific gravity (U) [Rel density] 1.020 [facility] Urobilinogen (U) [Mass/Vol] 2 mg/dL [facility] - Hematology and Cell countson 06-27-2023 Hemoglobin Ql (U) Trace [facility] - Specimen inform ationon 06-27-2023 Clarity (U) Cloudy [facility] Color (U) Yellow [facility] - Urinalysison Nitrite Ql (U) Negative [facility] Protein Ql (U) Negative [facility] Mucus LM Ql (Urine sed)Order ed By: Terrell Cheng on 06-27-2023 Mucus Ql (Urine sed) 0 SEEN /hpf [facility] Nitrite Test strip Ql (U)Ord ered By: Terrell Cheng on 06-27-2023 Nitrite Ql (U) Negative Negative [facility] No Panel Informationon 06-27 Urine Leukocytes Positive [facility] Urine Non-Hemolyzed Blood [facility] Protein Test strip Ql (U)Ord ered By: Terrell Cheng on 06-27-2023 Protein Ql (U) 15 mg/dl Negative [facility] Squamous epithelial cells de tection in urine sediment by light microscopyOrdered By: Terrell Cheng on 06-27-2023 Epithelial cells.squamous LM Ql (Urine sed) 0-5 SEEN /hpf 5-10 [facility] Urine blood detectionOrdered By: Terrell Cheng on 06-27-2023 RBC Ql (U) 25 /ul Negative [facility] RBC Ql (U) 0-5 SEEN /hpf 0-5 [facility] Urine clarityOrdered By: Arnoldo Cheng on 06-27-2023 Clarity (U) Sl. Cloudy Clear [facility] Urine color determinationOrd ered By: Terrell Cheng on 06-27-2023 Color (U) Yellow Yellow [facility] Urine glucose detectionOrder ed By: Terrell Cheng on 06-27-2023 Glucose Ql (U) Normal mg/dl Normal [facility] Urine leukocyte esterase det ection by dipstickOrdered By: Terrell Cheng on 06-27-2023 Leukocyte esterase Test strip Ql (U) 500 /ul Negative [facility] Urine pHOrdered By: Terrell weir on 06-27-2023 pH (U) 8.0 [pH] 5.0 - 8.0 [facility] Urine sediment bacteria coun t by microscopy (number/high power field)Ordered By: Terrell Cheng on 06-27-2023 Bacteria LM.HPF (Urine sed) [#/Area] RARE /hpf None Seen [facility] Urine specific gravity measu rementOrdered By: Terrell Cheng on 06-27-2023 Specific gravity (U) [Rel density] 1.010 1.002-1.03 0 [facility] Urobilinogen Auto test strip Ql (U)Ordered By: Terrell Cheng on 06-27-2023 Urobilinogen Ql (U) Normal mg/dl Normal [facility] Culture, urineOrdered By: Dr Luciano Fabian on 03-17-2023 Bacteria identified Cx Nom (U) Presumptive E. coli [facility] Basophil percentageOrdered B y: Dr. Fabian on 03-15-2023 Basophil percentage 25-50 SEEN /hpf 0-5 [facility] Bilirubin Test strip Ql (U)O rdered By: Dr. Fabian on 03-15-2023 Bilirubin Ql (U) Negative Negative [facility] Culture, urineOrdered By: Franco Fabian on 03-15-2023 Bacteria identified Cx Nom (U) Presumptive E. coli [facility] Ketones Test strip Ql (U)Ord ered By: Dr. Fabian on 03-15-2023 Ketones Ql (U) Negative Negative [facility] Mucus LM Ql (Urine sed)Order ed By: Dr. Fabian on 03-15-2023 Mucus Ql (Urine sed) 0 SEEN /hpf [facility] Nitrite Test strip Ql (U)Ord ered By: Dr. Fabian on 03-15-2023 Nitrite Ql (U) Positive Negative [facility] Protein Test strip Ql (U)Ord ered By: Dr. Fabian on 03-15-2023 Protein Ql (U) 15 mg/dl Negative [facility] Squamous epithelial cells de tection in urine sediment by light microscopyOrdered By: Dr. Fabian on 03-15-2023 Epithelial cells.squamous LM Ql (Urine sed) 0 SEEN /hpf 5-10 [facility] Urine blood detectionOrdered By: Dr. Fabian on 03-15-2023 RBC Ql (U) 25 /ul Negative [facility] RBC Ql (U) 0-5 SEEN /hpf 0-5 [facility] Urine clarityOrdered By: Dr. Fabian on 03-15-2023 Clarity (U) Sl. Cloudy Clear [facility] Urine color determinationOrd ered By: Dr. Fabian on 03-15-2023 Color (U) Yellow Yellow [facility] Urine glucose detectionOrder ed By: Dr. Fabian on 03-15-2023 Glucose Ql (U) Normal mg/dl Normal [facility] Urine leukocyte esterase det ection by dipstickOrdered By: Dr. Fabian on 03-15-2023 Leukocyte esterase Test strip Ql (U) 500 /ul Negative [facility] Urine pHOrdered By: Dr. Lupillo alexander on 03-15-2023 pH (U) 8.0 [pH] 5.0 - 8.0 [facility] Urine sediment bacteria coun t by microscopy (number/high power field)Ordered By: Dr. Fabian on 03-15-2023 Bacteria LM.HPF (Urine sed) [#/Area] 1 /[HPF] None Seen [facility] Urine specific gravity measu rementOrdered By: Dr. Fabian on 03-15-2023 Specific gravity (U) [Rel density] 1.010 1.002-1.03 0 [facility] Urobilinogen Auto test strip Ql (U)Ordered By: Dr. Fabian on 03-15-2023 Urobilinogen Ql (U) Normal mg/dl Normal [facility] Absolute lymphocyte countOrd ered By: Grace Luna on 03-01-2023 Lymphocytes Auto (Unsp spec) [#/Vol] 2.28 10*3/uL 0.83-4.51 [facility] Basophil percentageOrdered B y: Grace Luna on 03-01-2023 Basophils/100 WBC (Bld) 0.9 % 0-1 [facility] Chloride [Moles/Vol] 107 mmol/L 98-107 [facility] Eosinophils/100 WBC (Bld) 3.8 % 0-5 [facility] Glucose [Mass/Vol] 97 mg/dL 74-106 [facility] Neutrophils (Bld) [#/Vol] 6.3 10*3/uL 2.0-7.7 [facility] Neutrophils/100 WBC (Bld) 63.4 % 47-70 [facility] Potassium [Moles/Vol] 3.8 mmol/L 3.5-5.1 [facility] Sodium [Moles/Vol] 140 mmol/L 136-145 [facility] WBC (Bld) [#/Vol] 10.0 10*3/uL 4.4-11.0 [facility] Blood erythrocytes count (nu mber/volume)Ordered By: Grace Luna on 03-01-2023 RBC (Bld) [#/Vol] 3.58 10*6/uL 4.2-5.4 [facility] Blood hemoglobin measurement (mass/volume)Ordered By: Grace Luna on 03-01-2023 Hemoglobin (Bld) [Mass/Vol] 10.9 g/dL 12.0-15. 0 [facility] Blood lymphocytes/100 leukoc ytesOrdered By: Grace Luna on 03-01-2023 Lymphocytes/100 WBC (Bld) 22.9 % 19-41 [facility] Blood monocytes/100 leukocyt esOrdered By: Grace Luna on 03-01-2023 Monocytes/100 WBC (Bld) 8.5 % 0-10 [facility] Blood platelet mean volumeOr dered By: Grace Luna on 03-01-2023 Platelet mean volume (Bld) [Entitic vol] 9.8 fL 6.2-12.0 [facility] Determination of erythrocyte mean corpuscular volume (MCV)Ordered By: Grace Luna on 03-01-2023 MCV (RBC) [Entitic vol] 98.6 fL 81-99 [facility] Hematocrit Auto (Bld) [Volum e fraction]Ordered By: Grace Luna on 03-01-2023 Hematocrit (Bld) [Volume fraction] 35.3 % 37-47 [facility] Iron measurement (mass/mass) Ordered By: Dr. Fabian on 03-01-2023 Iron (Unsp spec) [Mass/Mass] 27 ug/dL 50-170 [facility] - Chemistry and C hemistry - challengeOrdered By: Dr. Fabian on 03-01-2023 Magnesium [Mass/Vol] 2.1 mg/dL 1.6-2.6 [facility] - Chemistry and C hemistry - challengeOrdered By: Grace Luna on 03-01-2023 CO2 [Moles/Vol] 26.0 mmol/L 21.0-32.0 [facility] Urea nitrogen/Creatinine [Mass ratio] 25.9 mg/mg 10-20 [facility] - Hematology and Cell countsOrdered By: Grace Luna on 03-01-2023 Erythrocyte distribution width (RBC) [Entitic vol] 45.0 fL 35.1-43.9 [facility] Erythrocyte distribution width (RBC) [Ratio] 12.4 % 11.6-14.6 [facility] Immature granulocytes/100 WBC (Bld) 0.500 % 0.0-0.9 [facility] Comment on above: IG% - Immature Granu locytes (promyelocytes, myelocytes and metamyelocytes) > 1% indicates that a LEFT SHIFT is Present. MCH (RBC) [Entitic mass] 30.4 pg 27.0-32.0 [facility] Nucleated RBC/100 WBC (Bld) [Ratio] 0 % 0-5 [facility] MCHC Auto (RBC) [Mass/Vol]Or dered By: Grace Luna on 03-01-2023 MCHC (RBC) [Mass/Vol] 30.9 g/dL 32-36 [facility] No Panel InformationOrdered By: Dr. Fabian on 03-01-2023 Total Iron Binding Capacity 259 ug/dL 250-450 [facility] Vitamin D 25-Hydroxy 34.0 ng/mL [facility] Comment on above: Vitamin D 25(OH) Sta tus Range Deficiency <20 ng/mL (50nmol/L) Insufficiency 20 - 30 ng/mL (50 - 75 nmol/L) Sufficiency 30 - 100 ng/mL (75 - 250 nmol/L) Toxicity >100 ng/mL (>250 nmol/L) No Panel InformationOrdered By: Grace Luna on 03-01-2023 Estimated GFR (MDRD) Amer 110 mL/min >60 [facility] Comment on above: GFR Calc Estimated GFR (MDRD) Non-Af Amer 91 mL/min >60 [facility] Comment on above: Non- GFR Calc Platelets bldOrdered By: Max Luna on 03-01-2023 Platelets (Bld) [#/Vol] 424 10*3/uL 150-450 [facility] Serum or plasma calcium alissa urement (mass/volume)Ordered By: Grace Luna on 03-01-2023 Calcium [Mass/Vol] 9.0 mg/dL 8.5-10.1 [facility] Serum or plasma creatinine m easurement (mass/volume)Ordered By: Grace Luna on 03-01-2023 Creatinine [Mass/Vol] 0.66 mg/dL 0.55-1.02 [facility] Comment on above: The validity of the calculated GFR & GFRAA in patients over 70 years has not been determined. Clinical correlation is essential. Serum or plasma ferritin neil surement (mass/volume)Ordered By: Dr. Fabian on 03-01-2023 Ferritin [Mass/Vol] 92 ng/mL 8-252 [facility] Serum or plasma iron saturat ion measurement (mass fraction)Ordered By: Dr. Fabian on 03-01-2023 Iron saturation [Mass fraction] 10.4 % 15.0-55.0 [facility] Serum or plasma urea nitroge n measurement (mass/volume)Ordered By: Grace Luna on 03-01-2023 Urea nitrogen [Mass/Vol] 17 mg/dL 7-18 [facility] Thin prep Papanicolaou smear with manual screeningOrdered By: Grace Luna on 03-01-2023 Thin prep Papanicolaou smear with manual screening 7 5-15 [facility] Absolute lymphocyte countOrd ered By: Allison Tomlinson on 02-15-2023 Lymphocytes Auto (Unsp spec) [#/Vol] 3.01 10*3/uL 0.83-4.51 [facility] Basophil percentageOrdered B y: Allison Tomlinson on 02-15-2023 Basophils/100 WBC (Bld) 0.3 % 0-1 [facility] Chloride [Moles/Vol] 106 mmol/L 98-107 [facility] Eosinophils/100 WBC (Bld) 1.6 % 0-5 [facility] Glucose [Mass/Vol] 98 mg/dL 74-106 [facility] Neutrophils (Bld) [#/Vol] 10.8 10*3/uL 2.0-7.7 [facility] Neutrophils/100 WBC (Bld) 70.1 % 47-70 [facility] Potassium [Moles/Vol] 3.5 mmol/L 3.5-5.1 [facility] Sodium [Moles/Vol] 139 mmol/L 136-145 [facility] WBC (Bld) [#/Vol] 15.3 10*3/uL 4.4-11.0 [facility] Blood erythrocytes count (nu mber/volume)Ordered By: Allison Tomlinson on 02-15-2023 RBC (Bld) [#/Vol] 3.58 10*6/uL 4.2-5.4 [facility] Blood hemoglobin measurement (mass/volume)Ordered By: Allison Tomlinson on 02-15-2023 Hemoglobin (Bld) [Mass/Vol] 11.1 g/dL 12.0-15. 0 [facility] Blood lymphocytes/100 leukoc ytesOrdered By: Allison Tomlinson on 02-15-2023 Lymphocytes/100 WBC (Bld) 19.6 % 19-41 [facility] Blood monocytes/100 leukocyt esOrdered By: Allison Tomlinson on 02-15-2023 Monocytes/100 WBC (Bld) 7.4 % 0-10 [facility] Blood platelet mean volumeOr dered By: Allison Tomlinson on 02-15-2023 Platelet mean volume (Bld) [Entitic vol] 8.9 fL 6.2-12.0 [facility] Determination of erythrocyte mean corpuscular volume (MCV)Ordered By: Allison Tomlinson on 02-15-2023 MCV (RBC) [Entitic vol] 96.6 fL 81-99 [facility] Hematocrit Auto (Bld) [Volum e fraction]Ordered By: Allison Tomlinson on 02-15-2023 Hematocrit (Bld) [Volume fraction] 34.6 % 37-47 [facility] - Chemistry and C hemistry - challengeOrdered By: Allison Tomlinson on 02-15-2023 CO2 [Moles/Vol] 26.0 mmol/L 21.0-32.0 [facility] Urea nitrogen/Creatinine [Mass ratio] 23.7 mg/mg 10-20 [facility] - Hematology and Cell countsOrdered By: Allison Tomlinson on 02-15-2023 Erythrocyte distribution width (RBC) [Entitic vol] 46.0 fL 35.1-43.9 [facility] Erythrocyte distribution width (RBC) [Ratio] 12.8 % 11.6-14.6 [facility] Immature granulocytes/100 WBC (Bld) 1.000 % 0.0-0.9 [facility] Comment on above: IG% - Immature Granu locytes (promyelocytes, myelocytes and metamyelocytes) > 1% indicates that a LEFT SHIFT is Present. MCH (RBC) [Entitic mass] 31.0 pg 27.0-32.0 [facility] Nucleated RBC/100 WBC (Bld) [Ratio] 0 % 0-5 [facility] MCHC Auto (RBC) [Mass/Vol]Or dered By: Allison Tomlinson on 02-15-2023 MCHC (RBC) [Mass/Vol] 32.1 g/dL 32-36 [facility] No Panel InformationOrdered By: Allison Tomlinson on 02-15-2023 Estimated GFR (MDRD) Amer 93 mL/min >60 [facility] Comment on above: GFR Calc Estimated GFR (MDRD) Non-Af Amer 77 mL/min >60 [facility] Comment on above: Non- GFR Calc Platelets bldOrdered By: Cameron Tomlinson on 02-15-2023 Platelets (Bld) [#/Vol] 522 10*3/uL 150-450 [facility] Serum or plasma calcium alissa urement (mass/volume)Ordered By: Allison Tomlinson on 02-15-2023 Calcium [Mass/Vol] 8.7 mg/dL 8.5-10.1 [facility] Serum or plasma creatinine m easurement (mass/volume)Ordered By: Allison Tomlinson on 02-15-2023 Creatinine [Mass/Vol] 0.76 mg/dL 0.55-1.02 [facility] Comment on above: The validity of the calculated GFR & GFRAA in patients over 70 years has not been determined. Clinical correlation is essential. Serum or plasma urea nitroge n measurement (mass/volume)Ordered By: Allison Tomlinson on 02-15-2023 Urea nitrogen [Mass/Vol] 18 mg/dL 7-18 [facility] Thin prep Papanicolaou smear with manual screeningOrdered By: Allison Tomlinson on 02-15-2023 Thin prep Papanicolaou smear with manual screening 7 5-15 [facility] COVID-19 virus antigen assay Ordered By: Jody Moffett on 02-13-2023 SARS-CoV-2 (COVID-19) Ag IA.rapid Ql (Resp) [facility] COVID-19 virus antigen assay Ordered By: Dr. Moffett on 02-13-2023 SARS-CoV-2 (COVID-19) Ag IA.rapid Ql (Resp) [facility] Absolute lymphocyte countOrd ered By: Dr. Reynolds on 02-12-2023 Lymphocytes Auto (Unsp spec) [#/Vol] 2.21 10*3/uL 0.83-4.51 [facility] Basophil percentageOrdered B y: Dr. Moffett on 02-12-2023 Basophil percentage 2.5 mg/dL 2.5-4.9 [facility] Bilirubin [Mass/Vol] 0.30 mg/dL 0.20-1.00 [facility] Comment on above: For patients on eltr ombopag therapy, use of Dimension [place] TBIL is not recommended. Protein [Mass/Vol] 6.0 g/dL 6.4-8.2 [facility] Basophil percentageOrdered B y: Dr. Reynolds on 02-12-2023 Basophils/100 WBC (Bld) 0.3 % 0-1 [facility] Chloride [Moles/Vol] 108 mmol/L 98-107 [facility] Eosinophils/100 WBC (Bld) 1.0 % 0-5 [facility] Glucose [Mass/Vol] 106 mg/dL 74-106 [facility] Comment on above: Fasting Glucose resu lt from 100 to 125 mg/dL suggests IMPAIRED HOMEOSTASIS per A.D.A. criteria. Neutrophils (Bld) [#/Vol] 9.2 10*3/uL 2.0-7.7 [facility] Neutrophils/100 WBC (Bld) 72.9 % 47-70 [facility] Potassium [Moles/Vol] 4.2 mmol/L 3.5-5.1 [facility] Sodium [Moles/Vol] 138 mmol/L 136-145 [facility] WBC (Bld) [#/Vol] 12.7 10*3/uL 4.4-11.0 [facility] Blood erythrocytes count (nu mber/volume)Ordered By: Dr. Reynolds on 02-12-2023 RBC (Bld) [#/Vol] 3.43 10*6/uL 4.2-5.4 [facility] Blood hemoglobin measurement (mass/volume)Ordered By: Dr. Reynolds on 02-12-2023 Hemoglobin (Bld) [Mass/Vol] 10.9 g/dL 12.0-15. 0 [facility] Blood lymphocytes/100 leukoc ytesOrdered By: Dr. Reynolds on 02-12-2023 Lymphocytes/100 WBC (Bld) 17.4 % 19-41 [facility] Blood monocytes/100 leukocyt esOrdered By: Dr. Reynolds on 02-12-2023 Monocytes/100 WBC (Bld) 7.8 % 0-10 [facility] Blood platelet mean volumeOr dered By: Dr. Reynolds on 02-12-2023 Platelet mean volume (Bld) [Entitic vol] 9.5 fL 6.2-12.0 [facility] Determination of erythrocyte mean corpuscular volume (MCV)Ordered By: Dr. Reynolds on 02-12-2023 MCV (RBC) [Entitic vol] 98.0 fL 81-99 [facility] Direct bilirubinOrdered By: Dr. Moffett on 02-12-2023 Bilirubin.direct [Mass/Vol] mg/dL 0.00-0.3 0 [facility] Hematocrit Auto (Bld) [Volum e fraction]Ordered By: Dr. Reynolds on 02-12-2023 Hematocrit (Bld) [Volume fraction] 33.6 % 37-47 [facility] - Chemistry and C hemistry - challengeOrdered By: Dr. Moffett on 02-12-2023 ALP [Catalytic activity/Vol] 57 U/L 45-117 [facility] ALT [Catalytic activity/Vol] 15 U/L 13-56 [facility] Free T4 [Mass/Vol] 1.38 ng/dL 0.76-1.46 [facility] Globulin (S) [Mass/Vol] 4.2 g/dL 2.2-4.2 [facility] Magnesium [Mass/Vol] 1.9 mg/dL 1.6-2.6 [facility] - Chemistry and C hemistry - challengeOrdered By: Dr. Reynolds on 02-12-2023 CO2 [Moles/Vol] 24.0 mmol/L 21.0-32.0 [facility] Urea nitrogen/Creatinine [Mass ratio] 27.0 mg/mg 10-20 [facility] - Hematology and Cell countsOrdered By: Dr. Reynolds on 02-12-2023 Erythrocyte distribution width (RBC) [Entitic vol] 44.9 fL 35.1-43.9 [facility] Erythrocyte distribution width (RBC) [Ratio] 12.7 % 11.6-14.6 [facility] Immature granulocytes/100 WBC (Bld) 0.600 % 0.0-0.9 [facility] Comment on above: IG% - Immature Granu locytes (promyelocytes, myelocytes and metamyelocytes) > 1% indicates that a LEFT SHIFT is Present. MCH (RBC) [Entitic mass] 31.8 pg 27.0-32.0 [facility] Nucleated RBC/100 WBC (Bld) [Ratio] 0 % 0-5 [facility] MCHC Auto (RBC) [Mass/Vol]Or dered By: Dr. Reynolds on 02-12-2023 MCHC (RBC) [Mass/Vol] 32.4 g/dL 32-36 [facility] No Panel InformationOrdered By: Dr. Reynolds on 02-12-2023 Estimated Creatinine Clearance Calc 31.04 ml/min [facility] Estimated GFR (MDRD) Amer 108 mL/min >60 [facility] Comment on above: GFR Calc Estimated GFR (MDRD) Non-Af Amer 89 mL/min >60 [facility] Comment on above: Non- GFR Calc No Panel InformationOrdered By: Dr. Moffett on 02-12-2023 Thyroid Stimulating Hormone (TSH) 0.86 uIU/mL 0.358-3.74 [facility] Platelets bldOrdered By: Dr. Reynolds on 02-12-2023 Platelets (Bld) [#/Vol] 483 10*3/uL 150-450 [facility] Serum or plasma albumin alissa urement (mass/volume)Ordered By: Dr. Moffett on 02-12-2023 Albumin [Mass/Vol] 1.8 g/dL 3.2-5.0 [facility] Serum or plasma calcium alissa urement (mass/volume)Ordered By: Dr. Reynolds on 02-12-2023 Calcium [Mass/Vol] 8.6 mg/dL 8.5-10.1 [facility] Serum or plasma creatinine m easurement (mass/volume)Ordered By: Dr. Reynolds on 02-12-2023 Creatinine [Mass/Vol] 0.67 mg/dL 0.55-1.02 [facility] Comment on above: The validity of the calculated GFR & GFRAA in patients over 70 years has not been determined. Clinical correlation is essential. Serum or plasma urea nitroge n measurement (mass/volume)Ordered By: Dr. Reynolds on 02-12-2023 Urea nitrogen [Mass/Vol] 18 mg/dL 7-18 [facility] Thin prep Papanicolaou smear with manual screeningOrdered By: Dr. Moffett on 02-12-2023 Thin prep Papanicolaou smear with manual screening 14 U/L 15-37 [facility] Thin prep Papanicolaou smear with manual screeningOrdered By: Dr. Reynolds on 02-12-2023 Thin prep Papanicolaou smear with manual screening 6 5-15 [facility] EP PanelOrdered By: Dr. Kaylee epstein on 02-09-2023 Gastrointestinal pathogens panel HAZEL+probe (Stl) [facility] Basophil percentageOrdered B y: Dr. Cedeno on 02-08-2023 Basophil percentage 5-10 SEEN /hpf 0-5 [facility] Bilirubin Test strip Ql (U)O rdered By: Dr. Cedeno on 02-08-2023 Bilirubin Ql (U) Negative Negative [facility] Ketones Test strip Ql (U)Ord ered By: Dr. Cedeno on 02-08-2023 Ketones Ql (U) 5 mg/dl Negative [facility] Mucus LM Ql (Urine sed)Order ed By: Dr. Cedeno on 02-08-2023 Mucus Ql (Urine sed) 0 SEEN /hpf [facility] Nitrite Test strip Ql (U)Ord ered By: Dr. Cedeno on 02-08-2023 Nitrite Ql (U) Negative Negative [facility] Protein Test strip Ql (U)Ord ered By: Dr. Cedeno on 02-08-2023 Protein Ql (U) 30 mg/dl Negative [facility] Serum or plasma albumin/glob ulin mass ratioOrdered By: Dr. Cedeno on 02-08-2023 Albumin/Globulin [Mass ratio] 0.5 {ratio} 0.9-2.4 [facility] Serum or plasma uric acid me asurement (mass/volume)Ordered By: Dr. Reynolds on 02-08-2023 Urate [Mass/Vol] 4.5 mg/dL 2.6-6.0 [facility] Comment on above: The drugs N-Acetylcy steine and Metamizole may falsely depress this assay. Squamous epithelial cells de tection in urine sediment by light microscopyOrdered By: Dr. Cedeno on 02-08-2023 Epithelial cells.squamous LM Ql (Urine sed) 0-5 SEEN /hpf 5-10 [facility] Stool enteric pathogen panel by probe and target amplification methodOrdered By: Himanshu Reynolds on 02-08-2023 Gastrointestinal pathogens panel HAZEL+probe (Stl) [facility] Urine blood detectionOrdered By: Dr. Cedeno on 02-08-2023 RBC Ql (U) 10 /ul Negative [facility] RBC Ql (U) 0 SEEN /hpf 0-5 [facility] Urine clarityOrdered By: Dr. Cedeno on 02-08-2023 Clarity (U) Clear Clear [facility] Urine color determinationOrd ered By: Dr. Cedeno on 02-08-2023 Color (U) Yellow Yellow [facility] Urine glucose detectionOrder ed By: Dr. Cedeno on 02-08-2023 Glucose Ql (U) Normal mg/dl Normal [facility] Urine leukocyte esterase det ection by dipstickOrdered By: Dr. Cedeno on 02-08-2023 Leukocyte esterase Test strip Ql (U) 100 /ul Negative [facility] Urine pHOrdered By: Dr. Juliann reveles on 02-08-2023 pH (U) 7.0 [pH] 5.0 - 8.0 [facility] Urine sediment bacteria coun t by microscopy (number/high power field)Ordered By: Dr. Cedeno on 02-08-2023 Bacteria LM.HPF (Urine sed) [#/Area] 0 /[HPF] None Seen [facility] Urine specific gravity measu rementOrdered By: Dr. Cedeno on 02-08-2023 Specific gravity (U) [Rel density] 1.010 1.002-1.03 0 [facility] Urobilinogen Auto test strip Ql (U)Ordered By: Dr. Cedeno on 02-08-2023 Urobilinogen Ql (U) Normal mg/dl Normal [facility] Stool lactoferrin detection by immunoassayOrdered By: Jb Wood on 12-12-2022 Lactoferrin IA Ql (Stl) [facility] Clostridium difficile detect ion by polymerase chain reactionOrdered By: Jb Wood on 12-11-2022 C. difficile DNA HAZEL+probe Ql (Unsp spec) [facility] EP PanelOrdered By: Jb Wood on 12-11-2022 Gastrointestinal pathogens panel HAZEL+probe (Stl) [facility] No Panel InformationOrdered By: Jb Wood on 12-10-2022 Stool Calprotectin 526 ug/g 0-120 [facility] Comment on above: Concentration Interp retation Follow-Up<16 - 50 ug/g Normal None>50 -120 ug/g Borderline Re-evaluate in 4-6 weeks >120 ug/g Abnormal Repeat as clinically indicatedPerformed at: [facility] [place] [id number] Director: Mick Bradley PhD, Phone: [phone] at: [facility] [id number] Director: Payam Ervin MD, Phone: [phone] Stool Neutral Fats Normal . [facility] Comment on above: Normal (<60 Droplets /HPF) Stool Pancreatic Elastase 390 >200 [facility] Comment on above: Result Units: ug [address] st./g Severe Pancreatic Insufficiency: <100 Moderate Pancreatic Insufficiency: 100 - 200 Normal: >200Performed at: [facility] [id number] Director: Payam Ervin MD, Phone: [phone] Qualitative fecal fat or lip idsOrdered By: Jb Wood on 12-10-2022 Fat Ql (Stl) Normal . [facility] Comment on above: Normal (<100 Droplet s/HPF) Absolute lymphocyte countOrd ered By: Jb Wood on 12-08-2022 Lymphocytes Auto (Unsp spec) [#/Vol] 1.00 10*3/uL 0.83-4.51 [facility] Albumin Elph [Mass/Vol]Order ed By: Jb Wood on 12-08-2022 Albumin [Mass/Vol] 3.2 g/dL 2.9-4.4 [facility] Atypical perinuclear antineu trophil cytoplasmic antibodies measurementOrdered By: Jb Wood on 12-08-2022 Neutrophil cytoplasmic Ab.perinuclear.atypical IF (S) [Titer] <1:20 titer Neg:<1:20 [facility] Comment on above: The atypical pANCA p attern has been observed in asignificant percentage of patients with ulcerative colitis,primary sclerosing cholangitis and autoimmune hepatitis.Performed at: [facility] [address] [id number] Director: Mick Bradley PhD, Phone: [phone] at: [facility] [address] [id number] Director: Payam Ervin MD, Phone: [phone] Basophil percentageOrdered B y: Jb Wood on 12-08-2022 Basophil percentage < 0.2 AI 0.0-0.9 [facility] Basophils/100 WBC (Bld) 0.6 % 0-1 [facility] Bilirubin [Mass/Vol] 0.40 mg/dL 0.20-1.00 [facility] Comment on above: For patients on eltr ombopag therapy, use of Dimension [place] TBIL is not recommended. Chloride [Moles/Vol] 96 mmol/L 98-107 [facility] Eosinophils/100 WBC (Bld) 0.4 % 0-5 [facility] Glucose [Mass/Vol] 119 mg/dL 74-106 [facility] Comment on above: Fasting Glucose resu lt from 100 to 125 mg/dL suggests IMPAIRED HOMEOSTASIS per A.D.A. criteria. LDH [Catalytic activity/Vol] 185 U/L 84-246 [facility] Neutrophils (Bld) [#/Vol] 6.4 10*3/uL 2.0-7.7 [facility] Neutrophils/100 WBC (Bld) 79.3 % 47-70 [facility] Potassium [Moles/Vol] 3.2 mmol/L 3.5-5.1 [facility] Protein [Mass/Vol] 6.8 g/dL 6.4-8.2 [facility] Sodium [Moles/Vol] 135 mmol/L 136-145 [facility] WBC (Bld) [#/Vol] 8.1 10*3/uL 4.4-11.0 [facility] Blood erythrocytes count (nu mber/volume)Ordered By: Jb Wood on 12-08-2022 RBC (Bld) [#/Vol] 4.02 10*6/uL 4.2-5.4 [facility] Blood hemoglobin measurement (mass/volume)Ordered By: Jb Wood on 12-08-2022 Hemoglobin (Bld) [Mass/Vol] 12.3 g/dL 12.0-15. 0 [facility] Blood lymphocytes/100 leukoc ytesOrdered By: Jb Wood on 12-08-2022 Lymphocytes/100 WBC (Bld) 12.4 % 19-41 [facility] Blood monocytes/100 leukocyt esOrdered By: Jb Wood on 12-08-2022 Monocytes/100 WBC (Bld) 6.8 % 0-10 [facility] Blood platelet mean volumeOr dered By: Jb Wood on 12-08-2022 Platelet mean volume (Bld) [Entitic vol] 10.0 fL 6.2-12.0 [facility] Determination of erythrocyte mean corpuscular volume (MCV)Ordered By: Jb Wood on 12-08-2022 MCV (RBC) [Entitic vol] 95.5 fL 81-99 [facility] Erythrocyte sedimentation ra teOrdered By: Jb Wood on 12-08-2022 ESR (Bld) [Velocity] 25 mm/h 0-30 [facility] Hematocrit Auto (Bld) [Volum e fraction]Ordered By: Jb Wood on 12-08-2022 Hematocrit (Bld) [Volume fraction] 38.4 % 37-47 [facility] Interpretation of serum or p lasma protein pattern by immunofixation (narrative resultOrdered By: Jb Wood on 12-08-2022 Protein Fractions Immunofixation Derek [Interp] See comment [facility] Comment on above: Result: Not Observed Laboratory - Chemistry and C hemistry - challengeOrdered By: Jb Wood on 12-08-2022 ALP [Catalytic activity/Vol] 65 U/L 45-117 [facility] ALT [Catalytic activity/Vol] 21 U/L 13-56 [facility] CO2 [Moles/Vol] 30.0 mmol/L 21.0-32.0 [facility] Globulin (S) [Mass/Vol] 3.9 g/dL 2.2-4.2 [facility] Urea nitrogen/Creatinine [Mass ratio] 18.8 mg/mg 10-20 [facility] Laboratory - Hematology and Cell countsOrdered By: Jb Wood on 12-08-2022 Erythrocyte distribution width (RBC) [Entitic vol] 46.3 fL 35.1-43.9 [facility] Erythrocyte distribution width (RBC) [Ratio] 13.2 % 11.6-14.6 [facility] Immature granulocytes/100 WBC (Bld) 0.500 % 0.0-0.9 [facility] Comment on above: IG% - Immature Granu locytes (promyelocytes, myelocytes and metamyelocytes) > 1% indicates that a LEFT SHIFT is Present. MCH (RBC) [Entitic mass] 30.6 pg 27.0-32.0 [facility] Nucleated RBC/100 WBC (Bld) [Ratio] 0 % 0-5 [facility] MCHC Auto (RBC) [Mass/Vol]Or dered By: Jb Wood on 12-08-2022 MCHC (RBC) [Mass/Vol] 32.0 g/dL 32-36 [facility] No Panel InformationOrdered By: Jb Wood on 12-08-2022 Addendum Document Comment . [facility] Comment on above: Protein electrophore sis scan will follow via computer,mail, or plisse machine operator delivery. Centrome[employer] B Antibody <0.2 AI 0.0-0.9 [facility] Endomysial IgA Antibody Negative Negative [facility] Estimated GFR (MDRD) Amer 114 mL/min >60 [facility] Comment on above: GFR Calc Estimated GFR (MDRD) Non-Af Amer 94 mL/min >60 [facility] Comment on above: Non- GFR Calc Immunoglobulin E 19 IU/mL 6-495 [facility] Miscellaneous Test See comment [facility] Comment on above: TEST RESULT LIMITSIB D [...] developed and its performance characteristics determined by [facility]. It has not been cleared or approved by the Food and Drug Administration. The FDA has determined that such clearance or approval is not necessary.Atypical pANCA Negative Negative Comments Pattern is not suggestive of Inflammatory Bowel Disease TESTING PERFORMED AT [facility]. ORIGINAL REPORT ON FILE IN LAB CONTAINS ADDITIONAL TEST SITE INFORMATION. TALENT RECRUITER Antibody <0.2 AI 0.0-0.9 [facility] Platelets bldOrdered By: Lui Wood on 12-08-2022 Platelets (Bld) [#/Vol] 392 10*3/uL 150-450 [facility] Serum DNA double strand anti body assay (units/volume)Ordered By: Jb Wood on 12-08-2022 DNA double strand Ab Qn (S) [IU]/mL 0-9 [facility] Comment on above: Negative <5 Equivoca l 5 - 9 Positive >9 Serum IgA measurement (units /volume)Ordered By: Jb Wood on 12-08-2022 IgA Qn (S) 210 mg/dL 64-422 [facility] Comment on above: Performed at: [facility] [address] [id number] Director: Mick Bradley PhD, Phone: [phone] Serum Kerry-1 antibody assay (u nits/volume)Ordered By: Jb Wood on 12-08-2022 Kerry-1 extractable nuclear Ab Qn (S) <0.2 AI 0.0-0.9 [facility] Serum Scl-70 extractable nuc lear antibody assay (units/volume)Ordered By: Jb Wood on 12-08-2022 SCL-70 extractable nuclear Ab Qn (S) <0.2 AI 0.0-0.9 [facility] Serum Benito extractable nucl ear antibody detectionOrdered By: Jb Wood on 12-08-2022 Benito extractable nuclear Ab Ql (S) <0.2 AI 0.0-0.9 [facility] Serum [id number] measu rement by electrophoresisOrdered By: Jb Wood on 12-08-2022 Alpha 1 globulin Elph [Mass/Vol] 0.3 g/dL 0.0-0.4 [facility] Alpha 1 globulin Elph [Mass/Vol] 1.1 g/dL 0.4-1.0 [facility] Serum classic neutrophil cyt oplasmic antibody assay (units/volume)Ordered By: Jb Wood on 12-08-2022 Neutrophil cytoplasmic Ab.classic Qn (S) <1:20 titer Neg:<1:20 [facility] Serum globulin measurement ( mass/volume)Ordered By: Jb Wood on 12-08-2022 Globulin (S) [Mass/Vol] 3.3 g/dL 2.2-3.9 [facility] Serum or plasma C reactive p rotein measurement (mass/volume)Ordered By: Jb Wood on 12-08-2022 CRP [Mass/Vol] 3.82 mg/L 0.0-3.0 [facility] Comment on above: C-Reactive Protein ( CRP) provides useful information for thediagnosis, therapy and monitoring of inflammatory processesand associated diseases. For the evaluation of Relative Riskfor Cardiovascular Disease, a High Sensitivity CRP (HSCRP)should be ordered. Serum or plasma IgA measurem ent (mass/volume)Ordered By: Jb Wood on 12-08-2022 IgA [Mass/Vol] 202 mg/dL 64-422 [facility] Serum or plasma IgG measurem ent (mass/volume)Ordered By: Jb Wood on 12-08-2022 IgG [Mass/Vol] 819 mg/dL [phone] [facility] Serum or plasma IgM measurem ent (mass/volume)Ordered By: Jb Wood on 12-08-2022 IgM [Mass/Vol] 71 mg/dL 26-217 [facility] Serum or plasma albumin alissa urement (mass/volume)Ordered By: Jb Wood on 12-08-2022 Albumin [Mass/Vol] 2.9 g/dL 3.2-5.0 [facility] Serum or plasma albumin/glob ulin mass ratioOrdered By: Jb Wood on 12-08-2022 Albumin/Globulin [Mass ratio] 0.7 {ratio} 0.9-2.4 [facility] Serum or plasma beta globuli n measurement by electrophoresis (mass/volume)Ordered By: Jb Wood on 12-08-2022 Beta globulin Elph [Mass/Vol] 1.1 g/dL 0.7-1.3 [facility] Serum or plasma calcium alissa urement (mass/volume)Ordered By: Jb Wood on 12-08-2022 Calcium [Mass/Vol] 8.8 mg/dL 8.5-10.1 [facility] Serum or plasma creatinine m easurement (mass/volume)Ordered By: Jb Wood on 12-08-2022 Creatinine [Mass/Vol] 0.64 mg/dL 0.55-1.02 [facility] Comment on above: The validity of the calculated GFR & GFRAA in patients over 70 years has not been determined. Clinical correlation is essential. Serum or plasma gamma globul in measurement by electrophoresis (mass/volume)Ordered By: Jb Wood on 12-08-2022 Gamma globulin Elph [Mass/Vol] 0.8 g/dL 0.4-1.8 [facility] Serum or plasma immunoelectr ophoresis interpretation (nominal result)Ordered By: Jb Wood on 12-08-2022 Interpretation IEP [Interp] Comment . [facility] Comment on above: No monoclonality det ected. Serum or plasma urea nitroge n measurement (mass/volume)Ordered By: Jb Wood on 12-08-2022 Urea nitrogen [Mass/Vol] 12 mg/dL 7-18 [facility] Serum perinuclear neutrophil cytoplasmic antibody titer by immunofluorescenceOrdered By: Jb Wood on 12-08-2022 Neutrophil cytoplasmic Ab.perinuclear IF (S) [Titer] <1:20 titer Neg:<1:20 [facility] Comment on above: The presence of posi tive fluorescence exhibiting P-ANCA orC-ANCA patterns alone is not specific for the diagnosis ofWegener's Granulomatosis (WG) or microscopic polyangiitis.Decisions about treatment should not be based solely onANCA IFA results. The International ANCA Group Consensusrecommends follow up testing of positive sera with both IA-3 and MPO-ANCA enzyme immunoassays. As many as 5% serumsamples are positive only by EIA. Ref. AM J Clin Abrshz0988;111:507-513. Serum tissue transglutaminas e IgA antibody assay (units/volume)Ordered By: Jb Wood on 12-08-2022 tTG IgA Qn (S) <2 U/mL 0-3 [facility] Comment on above: Negative 0 - 3 Weak Positive 4 - 10 Positive >10 Tissue Transglutaminase (tTG) has been identified as the endomysial antigen. Studies have demonstr- ated that endomysial IgA antibodies have over 99% specificity for gluten sensitive enteropathy. Thin prep Papanicolaou smear with manual screeningOrdered By: Jb Wood on 12-08-2022 Thin prep Papanicolaou smear with manual screening 12 U/L 15-37 [facility] Thin prep Papanicolaou smear with manual screening 9 5-15 [facility] Thin prep Papanicolaou smear with manual screening 1.0 0.7-1.7 [facility] Total protein bloodOrdered B y: Jb Wood on 12-08-2022 Protein [Mass/Vol] 6.5 g/dL 6.0-8.5 [facility] Basophil percentageOrdered B y: Dr. Fabian on 11-13-2022 Bilirubin [Mass/Vol] 0.30 mg/dL 0.20-1.00 [facility] Comment on above: For patients on eltr ombopag therapy, use of Dimension [place] TBIL is not recommended. Chloride [Moles/Vol] 98 mmol/L 98-107 [facility] Glucose [Mass/Vol] 161 mg/dL 74-106 [facility] Comment on above: Fasting Glucose resu lt greater than or equal to 126 mg/dL suggests DIABETES MELLITUS per A.D.A. criteria. Potassium [Moles/Vol] 3.0 mmol/L 3.5-5.1 [facility] Protein [Mass/Vol] 7.5 g/dL 6.4-8.2 [facility] Sodium [Moles/Vol] 137 mmol/L 136-145 [facility] Laboratory - Chemistry and C hemistry - challengeOrdered By: Dr. Fabian on 11-13-2022 ALP [Catalytic activity/Vol] 71 U/L 45-117 [facility] ALT [Catalytic activity/Vol] 36 U/L 13-56 [facility] CO2 [Moles/Vol] 30.0 mmol/L 21.0-32.0 [facility] Globulin (S) [Mass/Vol] 4.7 g/dL 2.2-4.2 [facility] Urea nitrogen/Creatinine [Mass ratio] 18.9 mg/mg 10-20 [facility] No Panel InformationOrdered By: Dr. Fabian on 11-13-2022 Endomysial IgA Antibody Negative Negative [facility] Estimated GFR (MDRD) Amer 89 mL/min >60 [facility] Comment on above: GFR Calc Estimated GFR (MDRD) Non-Af Amer 73 mL/min >60 [facility] Comment on above: Non- GFR Calc Vitamin D 25-Hydroxy 24.5 ng/mL [facility] Comment on above: Vitamin D 25(OH) Sta tus Range Deficiency <20 ng/mL (50nmol/L) Insufficiency 20 - 30 ng/mL (50 - 75 nmol/L) Sufficiency 30 - 100 ng/mL (75 - 250 nmol/L) Toxicity >100 ng/mL (>250 nmol/L) Serum IgA measurement (units /volume)Ordered By: Dr. Fabian on 11-13-2022 IgA Qn (S) 227 mg/dL 64-422 [facility] Comment on above: Performed at: [address] [id number] Director: Mick Bradley PhD, Phone: [phone] Serum or plasma albumin alissa urement (mass/volume)Ordered By: Dr. Fabian on 11-13-2022 Albumin [Mass/Vol] 2.8 g/dL 3.2-5.0 [facility] Serum or plasma albumin/glob ulin mass ratioOrdered By: Dr. Fabian on 11-13-2022 Albumin/Globulin [Mass ratio] 0.6 {ratio} 0.9-2.4 [facility] Serum or plasma calcium alissa urement (mass/volume)Ordered By: Dr. Fabian on 11-13-2022 Calcium [Mass/Vol] 9.3 mg/dL 8.5-10.1 [facility] Serum or plasma creatinine m easurement (mass/volume)Ordered By: Dr. Fabian on 11-13-2022 Creatinine [Mass/Vol] 0.79 mg/dL 0.55-1.02 [facility] Comment on above: The validity of the calculated GFR & GFRAA in patients over 70 years has not been determined. Clinical correlation is essential. Serum or plasma urea nitroge n measurement (mass/volume)Ordered By: Dr. Fabian on 11-13-2022 Urea nitrogen [Mass/Vol] 15 mg/dL 7-18 [facility] Serum tissue transglutaminas e IgA antibody assay (units/volume)Ordered By: Dr. Fabian on 11-13-2022 tTG IgA Qn (S) <2 U/mL 0-3 [facility] Comment on above: Negative 0 - 3 Weak Positive 4 - 10 Positive >10 Tissue Transglutaminase (tTG) has been identified as the endomysial antigen. Studies have demonstr- ated that endomysial IgA antibodies have over 99% specificity for gluten sensitive enteropathy. Thin prep Papanicolaou smear with manual screeningOrdered By: Dr. Fabian on 11-13-2022 Thin prep Papanicolaou smear with manual screening 26 U/L 15-37 [facility] Thin prep Papanicolaou smear with manual screening 9 5-15 [facility] Absolute lymphocyte countOrd ered By: Dr. Irwin on 11-10-2022 Lymphocytes Auto (Unsp spec) [#/Vol] 2.31 10*3/uL 0.83-4.51 [facility] Basophil percentageOrdered B y: Dr. Irwin on 11-10-2022 Basophil percentage 0 SEEN /hpf 0-5 [facility] Basophils/100 WBC (Bld) 0.6 % 0-1 [facility] Bilirubin [Mass/Vol] 0.30 mg/dL 0.20-1.00 [facility] Comment on above: For patients on eltr ombopag therapy, use of Dimension [place] TBIL is not recommended. Chloride [Moles/Vol] 97 mmol/L 98-107 [facility] Eosinophils/100 WBC (Bld) 1.4 % 0-5 [facility] Glucose [Mass/Vol] 102 mg/dL 74-106 [facility] Comment on above: Fasting Glucose resu lt from 100 to 125 mg/dL suggests IMPAIRED HOMEOSTASIS per A.D.A. criteria. Neutrophils (Bld) [#/Vol] 6.2 10*3/uL 2.0-7.7 [facility] Neutrophils/100 WBC (Bld) 62.1 % 47-70 [facility] Potassium [Moles/Vol] 2.6 mmol/L 3.5-5.1 [facility] Comment on above: Critical Result(s) C alled at: 11:54:29 11/10/2022 by: Toño Rivera RN (ER). Results read back by same. Protein [Mass/Vol] 6.8 g/dL 6.4-8.2 [facility] Sodium [Moles/Vol] 138 mmol/L 136-145 [facility] WBC (Bld) [#/Vol] 10.0 10*3/uL 4.4-11.0 [facility] Bilirubin Test strip Ql (U)O rdered By: Dr. Irwin on 11-10-2022 Bilirubin Ql (U) Negative Negative [facility] Blood erythrocytes count (nu mber/volume)Ordered By: Dr. Irwin on 11-10-2022 RBC (Bld) [#/Vol] 3.82 10*6/uL 4.2-5.4 [facility] Blood hemoglobin measurement (mass/volume)Ordered By: Dr. Iriwn on 11-10-2022 Hemoglobin (Bld) [Mass/Vol] 11.7 g/dL 12.0-15. 0 [facility] Blood lymphocytes/100 leukoc ytesOrdered By: Dr. Irwin on 11-10-2022 Lymphocytes/100 WBC (Bld) 23.1 % 19-41 [facility] Blood monocytes/100 leukocyt esOrdered By: Dr. Irwin on 11-10-2022 Monocytes/100 WBC (Bld) 11.8 % 0-10 [facility] Blood platelet mean volumeOr dered By: Dr. Irwin on 11-10-2022 Platelet mean volume (Bld) [Entitic vol] 9.1 fL 6.2-12.0 [facility] Determination of erythrocyte mean corpuscular volume (MCV)Ordered By: Dr. Irwin on 11-10-2022 MCV (RBC) [Entitic vol] 95.5 fL 81-99 [facility] Direct bilirubinOrdered By: Dr. Irwin on 11-10-2022 Bilirubin.direct [Mass/Vol] 0.10 mg/dL 0.00-0.3 0 [facility] Hematocrit Auto (Bld) [Volum e fraction]Ordered By: Dr. Irwin on 11-10-2022 Hematocrit (Bld) [Volume fraction] 36.5 % 37-47 [facility] Ketones Test strip Ql (U)Ord ered By: Dr. Irwin on 11-10-2022 Ketones Ql (U) Negative Negative [facility] Laboratory - Chemistry and C hemistry - challengeOrdered By: Dr. Irwin on 11-10-2022 ALP [Catalytic activity/Vol] 63 U/L 45-117 [facility] ALT [Catalytic activity/Vol] 23 U/L 13-56 [facility] CO2 [Moles/Vol] 31.0 mmol/L 21.0-32.0 [facility] Globulin (S) [Mass/Vol] 4.4 g/dL 2.2-4.2 [facility] Urea nitrogen/Creatinine [Mass ratio] 16.9 mg/mg 10-20 [facility] Laboratory - Hematology and Cell countsOrdered By: Dr. Irwin on 11-10-2022 Erythrocyte distribution width (RBC) [Entitic vol] 42.5 fL 35.1-43.9 [facility] Erythrocyte distribution width (RBC) [Ratio] 12.2 % 11.6-14.6 [facility] Immature granulocytes/100 WBC (Bld) 1.000 % 0.0-0.9 [facility] Comment on above: IG% - Immature Granu locytes (promyelocytes, myelocytes and metamyelocytes) > 1% indicates that a LEFT SHIFT is Present. MCH (RBC) [Entitic mass] 30.6 pg 27.0-32.0 [facility] Nucleated RBC/100 WBC (Bld) [Ratio] 0 % 0-5 [facility] MCHC Auto (RBC) [Mass/Vol]Or dered By: Dr. Irwin on 11-10-2022 MCHC (RBC) [Mass/Vol] 32.1 g/dL 32-36 [facility] Mucus LM Ql (Urine sed)Order ed By: Dr. Irwin on 11-10-2022 Mucus Ql (Urine sed) 0 SEEN /hpf [facility] Nitrite Test strip Ql (U)Ord ered By: Dr. Irwin on 11-10-2022 Nitrite Ql (U) Negative Negative [facility] No Panel InformationOrdered By: Dr. Irwin on 11-10-2022 Estimated Creatinine Clearance Calc 33.02 ml/min [facility] Estimated GFR (MDRD) Amer 72 mL/min >60 [facility] Comment on above: GFR Calc Estimated GFR (MDRD) Non-Af Amer 60 mL/min >60 [facility] Comment on above: Non- GFR Calc Platelets bldOrdered By: Dr. Irwin on 11-10-2022 Platelets (Bld) [#/Vol] 443 10*3/uL 150-450 [facility] Protein Test strip Ql (U)Ord ered By: Dr. Irwin on 11-10-2022 Protein Ql (U) Negative Negative [facility] Serum or plasma albumin alissa urement (mass/volume)Ordered By: Dr. Irwin on 11-10-2022 Albumin [Mass/Vol] 2.4 g/dL 3.2-5.0 [facility] Serum or plasma calcium alissa urement (mass/volume)Ordered By: Dr. Irwin on 11-10-2022 Calcium [Mass/Vol] 8.5 mg/dL 8.5-10.1 [facility] Serum or plasma creatinine m easurement (mass/volume)Ordered By: Dr. Irwin on 11-10-2022 Creatinine [Mass/Vol] 0.94 mg/dL 0.55-1.02 [facility] Comment on above: The validity of the calculated GFR & GFRAA in patients over 70 years has not been determined. Clinical correlation is essential. Serum or plasma urea nitroge n measurement (mass/volume)Ordered By: Dr. Irwin on 11-10-2022 Urea nitrogen [Mass/Vol] 16 mg/dL 7-18 [facility] Squamous epithelial cells de tection in urine sediment by light microscopyOrdered By: Dr. Irwin on 11-10-2022 Epithelial cells.squamous LM Ql (Urine sed) 0-5 SEEN /hpf 5-10 [facility] Thin prep Papanicolaou smear with manual screeningOrdered By: Dr. Irwin on 11-10-2022 Thin prep Papanicolaou smear with manual screening 15 U/L 15-37 [facility] Thin prep Papanicolaou smear with manual screening 10 5-15 [facility] Urine blood detectionOrdered By: Dr. Irwin on 11-10-2022 RBC Ql (U) Negative Negative [facility] RBC Ql (U) 0 SEEN /hpf 0-5 [facility] Urine clarityOrdered By: Dr. Irwin on 11-10-2022 Clarity (U) Clear Clear [facility] Urine color determinationOrd ered By: Dr. Irwin on 11-10-2022 Color (U) Yellow Yellow [facility] Urine glucose detectionOrder ed By: Dr. Irwin on 11-10-2022 Glucose Ql (U) Normal mg/dl Normal [facility] Urine leukocyte esterase det ection by dipstickOrdered By: Dr. Irwin on 11-10-2022 Leukocyte esterase Test strip Ql (U) 100 /ul Negative [facility] Urine pHOrdered By: Dr. Stefany house on 11-10-2022 pH (U) 7.0 [pH] 5.0 - 8.0 [facility] Urine sediment bacteria coun t by microscopy (number/high power field)Ordered By: Dr. Irwin on 11-10-2022 Bacteria LM.HPF (Urine sed) [#/Area] 0 /[HPF] None Seen [facility] Urine sediment renal epithel ial cell count by microscopy (number/high power field)Ordered By: Dr. Irwin on 11-10-2022 Epithelial cells.renal LM.HPF (Urine sed) [#/Area] 0 /[HPF] 0-5 [facility] Urine specific gravity measu rementOrdered By: Dr. Irwin on 11-10-2022 Specific gravity (U) [Rel density] 1.005 1.002-1.03 0 [facility] Urobilinogen Auto test strip Ql (U)Ordered By: Dr. Irwin on 11-10-2022 Urobilinogen Ql (U) Normal mg/dl Normal [facility] Absolute lymphocyte countOrd ered By: Dr. Gibson on 11-01-2022 Lymphocytes Auto (Unsp spec) [#/Vol] 1.90 10*3/uL 0.83-4.51 [facility] Absolute lymphocyte countOrd ered By: Dr. Fabian on 11-01-2022 Lymphocytes Auto (Unsp spec) [#/Vol] 1.93 10*3/uL 0.83-4.51 [facility] Basophil percentageOrdered B y: Dr. Gibson on 11-01-2022 Basophils/100 WBC (Bld) 0.9 % 0-1 [facility] Chloride [Moles/Vol] 101 mmol/L 98-107 [facility] Eosinophils/100 WBC (Bld) 1.7 % 0-5 [facility] Glucose [Mass/Vol] 120 mg/dL 74-106 [facility] Comment on above: Fasting Glucose resu lt from 100 to 125 mg/dL suggests IMPAIRED HOMEOSTASIS per A.D.A. criteria. Neutrophils (Bld) [#/Vol] 2.8 10*3/uL 2.0-7.7 [facility] Neutrophils/100 WBC (Bld) 43.8 % 47-70 [facility] Potassium [Moles/Vol] 2.7 mmol/L 3.5-5.1 [facility] Comment on above: Critical Result(s) C alled at: 16:30:16 11/01/2022 by: Gillian Garrett to [facility]. Results read back by same. Sodium [Moles/Vol] 139 mmol/L 136-145 [facility] WBC (Bld) [#/Vol] 6.4 10*3/uL 4.4-11.0 [facility] Basophil percentageOrdered B y: Dr. Fabian on 11-01-2022 Basophils/100 WBC (Bld) 1.1 % 0-1 [facility] Bilirubin [Mass/Vol] 0.50 mg/dL 0.20-1.00 [facility] Comment on above: For patients on eltr ombopag therapy, use of Dimension [place] TBIL is not recommended. Chloride [Moles/Vol] 98 mmol/L 98-107 [facility] Eosinophils/100 WBC (Bld) 1.4 % 0-5 [facility] Glucose [Mass/Vol] 119 mg/dL 74-106 [facility] Comment on above: Fasting Glucose resu lt from 100 to 125 mg/dL suggests IMPAIRED HOMEOSTASIS per A.D.A. criteria. Neutrophils (Bld) [#/Vol] 2.4 10*3/uL 2.0-7.7 [facility] Neutrophils/100 WBC (Bld) 42.3 % 47-70 [facility] Potassium [Moles/Vol] 2.4 mmol/L 3.5-5.1 [facility] Protein [Mass/Vol] 7.4 g/dL 6.4-8.2 [facility] Sodium [Moles/Vol] 136 mmol/L 136-145 [facility] WBC (Bld) [#/Vol] 5.6 10*3/uL 4.4-11.0 [facility] Blood erythrocytes count (nu mber/volume)Ordered By: Dr. Gibson on 11-01-2022 RBC (Bld) [#/Vol] 4.28 10*6/uL 4.2-5.4 [facility] Blood erythrocytes count (nu mber/volume)Ordered By: Dr. Fabian on 11-01-2022 RBC (Bld) [#/Vol] 4.15 10*6/uL 4.2-5.4 [facility] Blood hemoglobin measurement (mass/volume)Ordered By: Dr. Gibson on 11-01-2022 Hemoglobin (Bld) [Mass/Vol] 13.0 g/dL 12.0-15. 0 [facility] Blood hemoglobin measurement (mass/volume)Ordered By: Dr. Fabian on 11-01-2022 Hemoglobin (Bld) [Mass/Vol] 12.6 g/dL 12.0-15. 0 [facility] Blood lymphocytes/100 leukoc ytesOrdered By: Dr. Gibson on 11-01-2022 Lymphocytes/100 WBC (Bld) 29.5 % - [facility] Blood lymphocytes/100 leukoc ytesOrdered By: Dr. Fabian on 11-01-2022 Lymphocytes/100 WBC (Bld) 34.6 % 19-41 [facility] Blood manual differential co mment interpretation (narrative result)Ordered By: Dr. Gibson on 11-01-2022 Manual differential comment Derek (Bld) [Interp] SCANNED [facility] Blood monocytes/100 leukocyt esOrdered By: Dr. Gibson on 11-01-2022 Monocytes/100 WBC (Bld) 23.8 % 0-10 [facility] Blood monocytes/100 leukocyt esOrdered By: Dr. Fabian on 11-01-2022 Monocytes/100 WBC (Bld) 20.4 % 0-10 [facility] Blood platelet mean volumeOr dered By: Dr. Gibson on 11-01-2022 Platelet mean volume (Bld) [Entitic vol] 9.7 fL 6.2-12.0 [facility] Blood platelet mean volumeOr dered By: Dr. Fabian on 11-01-2022 Platelet mean volume (Bld) [Entitic vol] 10.1 fL 6.2-12.0 [facility] Clostridium difficile detect ion by polymerase chain reactionOrdered By: Dr. Fabian on 11-01-2022 C. difficile DNA HAZEL+probe Ql (Unsp spec) [facility] Determination of erythrocyte mean corpuscular volume (MCV)Ordered By: Dr. Gibson on 11-01-2022 MCV (RBC) [Entitic vol] 93.9 fL 81-99 [facility] Determination of erythrocyte mean corpuscular volume (MCV)Ordered By: Dr. Fabian on 11-01-2022 MCV (RBC) [Entitic vol] 93.3 fL 81-99 [facility] EP PanelOrdered By: Dr. Lupillo alexander on 11-01-2022 Gastrointestinal pathogens panel HAZEL+probe (Stl) [facility] Giardia lamblia ag stool EIA Ordered By: Dr. Fabian on 11-01-2022 G. lamblia Ag IA Ql (Stl) Negative Negative [facility] Comment on above: Performed at: [address] Director: Mick Bradley PhD, Phone: [phone] Hematocrit Auto (Bld) [Volum e fraction]Ordered By: Dr. Gibson on 11-01-2022 Hematocrit (Bld) [Volume fraction] 40.2 % 37-47 [facility] Hematocrit Auto (Bld) [Volum e fraction]Ordered By: Dr. Fabian on 11-01-2022 Hematocrit (Bld) [Volume fraction] 38.7 % 37-47 [facility] Laboratory - Chemistry and C hemistry - challengeOrdered By: Dr. Gibson on 11-01-2022 CO2 [Moles/Vol] 29.0 mmol/L 21.0-32.0 [facility] Magnesium [Mass/Vol] 2.3 mg/dL 1.6-2.6 [facility] Urea nitrogen/Creatinine [Mass ratio] 18.5 mg/mg 10-20 [facility] Laboratory - Chemistry and C hemistry - challengeOrdered By: Dr. Fabian on 11-01-2022 ALP [Catalytic activity/Vol] 62 U/L 45-117 [facility] ALT [Catalytic activity/Vol] 22 U/L 13-56 [facility] CO2 [Moles/Vol] 31.0 mmol/L 21.0-32.0 [facility] Globulin (S) [Mass/Vol] 4.5 g/dL 2.2-4.2 [facility] Magnesium [Mass/Vol] 2.3 mg/dL 1.6-2.6 [facility] Urea nitrogen/Creatinine [Mass ratio] 19.3 mg/mg 10-20 [facility] Laboratory - Hematology and Cell countsOrdered By: Dr. Gibson on 11-01-2022 Erythrocyte distribution width (RBC) [Entitic vol] 41.5 fL 35.1-43.9 [facility] Erythrocyte distribution width (RBC) [Ratio] 12.1 % 11.6-14.6 [facility] Immature granulocytes/100 WBC (Bld) 0.300 % 0.0-0.9 [facility] Comment on above: IG% - Immature Granu locytes (promyelocytes, myelocytes and metamyelocytes) > 1% indicates that a LEFT SHIFT is Present. MCH (RBC) [Entitic mass] 30.4 pg 27.0-32.0 [facility] Nucleated RBC/100 WBC (Bld) [Ratio] 0 % 0-5 [facility] Laboratory - Hematology and Cell countsOrdered By: Dr. Fabian on 11-01-2022 Erythrocyte distribution width (RBC) [Entitic vol] 41.4 fL 35.1-43.9 [facility] Erythrocyte distribution width (RBC) [Ratio] 12.1 % 11.6-14.6 [facility] Immature granulocytes/100 WBC (Bld) 0.200 % 0.0-0.9 [facility] Comment on above: IG% - Immature Granu locytes (promyelocytes, myelocytes and metamyelocytes) > 1% indicates that a LEFT SHIFT is Present. MCH (RBC) [Entitic mass] 30.4 pg 27.0-32.0 [facility] Nucleated RBC/100 WBC (Bld) [Ratio] 0.5 % 0-5 [facility] MCHC Auto (RBC) [Mass/Vol]Or dered By: Dr. Gibson on 11-01-2022 MCHC (RBC) [Mass/Vol] 32.3 g/dL 32-36 [facility] MCHC Auto (RBC) [Mass/Vol]Or dered By: Dr. Fabian on 11-01-2022 MCHC (RBC) [Mass/Vol] 32.6 g/dL 32-36 [facility] No Panel InformationOrdered By: Dr. Gibson on 11-01-2022 Estimated Creatinine Clearance Calc 23.56 ml/min [facility] Estimated GFR (MDRD) Amer 50 mL/min >60 [facility] Comment on above: GFR Calc Estimated GFR (MDRD) Non-Af Amer 41 mL/min >60 [facility] Comment on above: Non- GFR Calc No Panel InformationOrdered By: Dr. Fabian on 11-01-2022 Stool Calprotectin 339 ug/g 0-120 [facility] Comment on above: Concentration Interp retation Follow-Up<16 - 50 ug/g Normal None>50 -120 ug/g Borderline Re-evaluate in 4-6 weeks >120 ug/g Abnormal Repeat as clinically indicatedPerformed at: - [facility] [id number] Director: Payam Ervin MD, Phone: [phone] Estimated GFR (MDRD) Amer 79 mL/min >60 [facility] Comment on above: GFR Calc Estimated GFR (MDRD) Non-Af Amer 65 mL/min >60 [facility] Comment on above: Non- GFR Calc Platelets bldOrdered By: Dr. Gibson on 11-01-2022 Platelets (Bld) [#/Vol] 392 10*3/uL 150-450 [facility] Platelets bldOrdered By: Dr. Fabian on 11-01-2022 Platelets (Bld) [#/Vol] 423 10*3/uL 150-450 [facility] Serum or plasma albumin alissa urement (mass/volume)Ordered By: Dr. Fabian on 11-01-2022 Albumin [Mass/Vol] 2.9 g/dL 3.2-5.0 [facility] Serum or plasma albumin/glob ulin mass ratioOrdered By: Dr. Fabian on 11-01-2022 Albumin/Globulin [Mass ratio] 0.6 {ratio} 0.9-2.4 [facility] Serum or plasma calcium alissa urement (mass/volume)Ordered By: Dr. Gibson on 11-01-2022 Calcium [Mass/Vol] 8.9 mg/dL 8.5-10.1 [facility] Serum or plasma calcium alissa urement (mass/volume)Ordered By: Dr. Fabian on 11-01-2022 Calcium [Mass/Vol] 9.1 mg/dL 8.5-10.1 [facility] Serum or plasma creatinine m easurement (mass/volume)Ordered By: Dr. Gibson on 11-01-2022 Creatinine [Mass/Vol] 1.30 mg/dL 0.55-1.02 [facility] Comment on above: The validity of the calculated GFR & GFRAA in patients over 70 years has not been determined. Clinical correlation is essential. Serum or plasma creatinine m easurement (mass/volume)Ordered By: Dr. Fabian on 11-01-2022 Creatinine [Mass/Vol] 0.88 mg/dL 0.55-1.02 [facility] Comment on above: The validity of the calculated GFR & GFRAA in patients over 70 years has not been determined. Clinical correlation is essential. Serum or plasma urea nitroge n measurement (mass/volume)Ordered By: Dr. Gibson on 11-01-2022 Urea nitrogen [Mass/Vol] 24 mg/dL 04-24 [facility] Serum or plasma urea nitroge n measurement (mass/volume)Ordered By: Dr. Fabian on 11-01-2022 Urea nitrogen [Mass/Vol] 17 mg/dL 04-24 [facility] Thin prep Papanicolaou smear with manual screeningOrdered By: Dr. Gibson on 11-01-2022 Thin prep Papanicolaou smear with manual screening 9 5- [facility] Thin prep Papanicolaou smear with manual screeningOrdered By: Dr. Fabian on 11-01-2022 Thin prep Papanicolaou smear with manual screening 16 U/L 15-37 [facility] Thin prep Papanicolaou smear with manual screening 7 5-15 [facility] Absolute lymphocyte countOrd ered By: Dr. Moyer on 07-07-2022 Lymphocytes Auto (Unsp spec) [#/Vol] 1.18 10*3/uL 0.83-4.51 [facility] Basophil percentageOrdered B y: Dr. Moyer on 07-07-2022 Basophil percentage 0-5 SEEN /hpf 0-5 [facility] Basophils/100 WBC (Bld) 0.6 % 0-1 [facility] Chloride [Moles/Vol] 94 mmol/L 98-107 [facility] Eosinophils/100 WBC (Bld) 0.9 % 0-5 [facility] Glucose [Mass/Vol] 120 mg/dL 74-106 [facility] Comment on above: Fasting Glucose resu lt from 100 to 125 mg/dL suggests IMPAIRED HOMEOSTASIS per A.D.A. criteria. Neutrophils (Bld) [#/Vol] 4.3 10*3/uL 2.0-7.7 [facility] Neutrophils/100 WBC (Bld) 64.3 % 47-70 [facility] Potassium [Moles/Vol] 3.4 mmol/L 3.5-5.1 [facility] Sodium [Moles/Vol] 131 mmol/L 136-145 [facility] WBC (Bld) [#/Vol] 6.6 10*3/uL 4.4-11.0 [facility] Bilirubin Test strip Ql (U)O rdered By: Dr. Moyer on 07-07-2022 Bilirubin Ql (U) Negative Negative [facility] Blood erythrocytes count (nu mber/volume)Ordered By: Dr. Moyer on 07-07-2022 RBC (Bld) [#/Vol] 4.51 10*6/uL 4.2-5.4 [facility] Blood hemoglobin measurement (mass/volume)Ordered By: Dr. Moyer on 07-07-2022 Hemoglobin (Bld) [Mass/Vol] 14.0 g/dL 12.0-15. 0 [facility] Blood lymphocytes/100 leukoc ytesOrdered By: Dr. Moyer on 07-07-2022 Lymphocytes/100 WBC (Bld) 17.9 % 19-41 [facility] Blood monocytes/100 leukocyt esOrdered By: Dr. Moyer on 07-07-2022 Monocytes/100 WBC (Bld) 16.1 % 0-10 [facility] Blood platelet mean volumeOr dered By: Dr. Moyer on 07-07-2022 Platelet mean volume (Bld) [Entitic vol] 9.6 fL 6.2-12.0 [facility] Determination of erythrocyte mean corpuscular volume (MCV)Ordered By: Dr. Myoer on 07-07-2022 MCV (RBC) [Entitic vol] 92.2 fL 81-99 [facility] Hematocrit Auto (Bld) [Volum e fraction]Ordered By: Dr. Moyer on 07-07-2022 Hematocrit (Bld) [Volume fraction] 41.6 % 37-47 [facility] Ketones Test strip Ql (U)Ord ered By: Dr. Moyer on 07-07-2022 Ketones Ql (U) Negative Negative [facility] Laboratory - Chemistry and C hemistry - challengeOrdered By: Dr. Moyer on 07-07-2022 CO2 [Moles/Vol] 29.0 mmol/L 21.0-32.0 [facility] Urea nitrogen/Creatinine [Mass ratio] 13.0 mg/mg 10-20 [facility] Laboratory - Hematology and Cell countsOrdered By: Dr. Moyer on 07-07-2022 Erythrocyte distribution width (RBC) [Entitic vol] 40.0 fL 35.1-43.9 [facility] Erythrocyte distribution width (RBC) [Ratio] 11.9 % 11.6-14.6 [facility] Immature granulocytes/100 WBC (Bld) 0.200 % 0.0-0.9 [facility] Comment on above: IG% - Immature Granu locytes (promyelocytes, myelocytes and metamyelocytes) > 1% indicates that a LEFT SHIFT is Present. MCH (RBC) [Entitic mass] 31.0 pg 27.0-32.0 [facility] Nucleated RBC/100 WBC (Bld) [Ratio] 0 % 0-5 [facility] MCHC Auto (RBC) [Mass/Vol]Or dered By: Dr. Moyer on 07-07-2022 MCHC (RBC) [Mass/Vol] 33.7 g/dL 32-36 [facility] Mucus LM Ql (Urine sed)Order ed By: Dr. Moyer on 07-07-2022 Mucus Ql (Urine sed) 0 SEEN /hpf [facility] Nitrite Test strip Ql (U)Ord ered By: Dr. Moyer on 09-30-2022 Nitrite Ql (U) Negative Negative [facility] No Panel InformationOrdered By: Dr. Moyer on 07-07-2022 Estimated Creatinine Clearance Calc 34.64 ml/min [facility] Estimated GFR (MDRD) Amer 91 mL/min >60 [facility] Comment on above: GFR Calc Estimated GFR (MDRD) Non-Af Amer 76 mL/min >60 [facility] Comment on above: Non- GFR Calc Platelets bldOrdered By: Dr. Moyer on 07-07-2022 Platelets (Bld) [#/Vol] 225 10*3/uL 150-450 [facility] Protein Test strip Ql (U)Ord ered By: Dr. Moyer on 07-07-2022 Protein Ql (U) 30 mg/dl Negative [facility] Serum or plasma calcium alissa urement (mass/volume)Ordered By: Dr. Moyer on 07-07-2022 Calcium [Mass/Vol] 8.8 mg/dL 8.5-10.1 [facility] Serum or plasma creatinine m easurement (mass/volume)Ordered By: Dr. Moyer on 07-07-2022 Creatinine [Mass/Vol] 0.77 mg/dL 0.55-1.02 [facility] Comment on above: The validity of the calculated GFR & GFRAA in patients over 70 years has not been determined. Clinical correlation is essential. Serum or plasma urea nitroge n measurement (mass/volume)Ordered By: Dr. Moyer on 07-07-2022 Urea nitrogen [Mass/Vol] 10 mg/dL 7-18 [facility] Squamous epithelial cells de tection in urine sediment by light microscopyOrdered By: Dr. Moyer on 07-07-2022 Epithelial cells.squamous LM Ql (Urine sed) 0-5 SEEN /hpf 5-10 [facility] Thin prep Papanicolaou smear with manual screeningOrdered By: Dr. Moyer on 07-07-2022 Thin prep Papanicolaou smear with manual screening 8 5-15 [facility] Urine blood detectionOrdered By: Dr. Moyer on 07-07-2022 RBC Ql (U) 25 /ul Negative [facility] RBC Ql (U) 0-5 SEEN /hpf 0-5 [facility] Urine clarityOrdered By: Dr. Moyer on 07-07-2022 Clarity (U) Clear Clear [facility] Urine color determinationOrd ered By: Dr. Moyer on 07-07-2022 Color (U) Yellow Yellow [facility] Urine glucose detectionOrder ed By: Dr. Moyer on 07-07-2022 Glucose Ql (U) Normal mg/dl Normal [facility] Urine leukocyte esterase det ection by dipstickOrdered By: Dr. Moyer on 07-07-2022 Leukocyte esterase Test strip Ql (U) 100 /ul Negative [facility] Urine pHOrdered By: Dr. Karri benito on 07-07-2022 pH (U) 7.0 [pH] 5.0 - 8.0 [facility] Urine sediment bacteria coun t by microscopy (number/high power field)Ordered By: Dr. Moyer on 07-07-2022 Bacteria LM.HPF (Urine sed) [#/Area] 2 /[HPF] None Seen [facility] Urine specific gravity measu rementOrdered By: Dr. Moyer on 07-07-2022 Specific gravity (U) [Rel density] 1.010 1.002-1.03 0 [facility] Urobilinogen Auto test strip Ql (U)Ordered By: Dr. Moyer on 07-07-2022 Urobilinogen Ql (U) Normal mg/dl Normal [facility] Laboratory - Chemistry and C hemistry - challengeon 07-05-2022 Bilirubin Ql (U) Negative [facility] Glucose Ql (U) Negative [facility] Ketones Ql (U) Negative [facility] pH (U) 5.0 [pH] [facility] Specific gravity (U) [Rel density] 1.010 [facility] Urobilinogen (U) [Mass/Vol] Negative [facility] Laboratory - Hematology and Cell countson 07-05-2022 Hemoglobin Ql (U) Negative [facility] Laboratory - Specimen inform ationon 07-05-2022 Clarity (U) Clear [facility] Color (U) Yellow [facility] Laboratory - Urinalysison Nitrite Ql (U) Negative [facility] Protein Ql (U) Negative [facility] No Panel Informationon 07-05 Urine Leukocytes Negatve [facility] Urine Non-Hemolyzed Blood Negative [facility] Laboratory - Microbiology an d Antimicrobial susceptibilityon 06-08-2022 SARS-CoV-2 (COVID-19) RNA HAZEL+probe Ql (Unsp spec) Not detected Not Detect [facility] Work Phone: Comment on above: Normal Reference [...] Liam 05-10-2022 CNPN Telephone (FPWASAUL) DEA MERRITT ([id number]) 1935 F Date Time Provider Department 05/10/22 HARRIS MOTA During your visit today, we recorded the following information about you: Neli Moreland 05/10/2022 4:17 PM Signed Received labs from [facility]. Placed in provider's inbox for review. Route [...] Comments: Mouth swelling and blurry vision. STATINS ([id number] REDUCTAS*10/18/2009 5 - Intolerance Comments: Joint pain/swelling/elevated liver enzymes TURMERIC 09/23/2020 8 - GI Upset VENOM-WASP 06/02/2021 7 - Swelling Date Reviewed: 02/24/2022 Reviewed by: Paulina Santos LPN - Fully Assessed Reason for Visit: Outside Lab Results [753] Cmt: [facility] Prescriptions as of 05/10/2022 - rivaroxaban (XARELTO) [...] Status:Closed by NELI MORELAND on 05/10/22 Normal [facility] Basophil percentageon 2021 Basophil percentage Not Reportable [facility] Work Phone: CNPvAa 05-08-2022 LAYO Telephone (YING) DEA MERRITT ([id number]) 1935 F Date Time Provider Department 05/08/22 HARRIS MOTA During your visit today, we recorded the following information about you: Neli Moreland 05/08/2022 2:03 PM Signed Received labs from [facility]. Placed in provider's inbox for review. Route [...] Comments: Mouth swelling and blurry vision. STATINS ([id number] REDUCTAS*10/18/2009 5 - Intolerance Comments: Joint pain/swelling/elevated liver enzymes TURMERIC 09/23/2020 8 - GI Upset VENOM-WASP 06/02/2021 7 - Swelling Date Reviewed: 02/24/2022 Reviewed by: Paulina Santos LPN - Fully Assessed Reason for Visit: Outside Lab Results [753] Cmt: [facility] Prescriptions as of 05/08/2022 - rivaroxaban (XARELTO) [...] Status:Closed by NELI MORELAND on 05/08/22 Normal [facility] Erythrocyte sedimentation ra herve 05-08-2022 ESR (Bld) [Velocity] 9 mm/h 0-30 [facility] Work Phone: Laboratory - Chemistry and C hemistry - challengeon 05-08-2022 Cobalamin (Vitamin B12) [Mass/Vol] 549 pg/mL 211-911 [facility] Work Phone: No Panel Informationon 05-08 Anti-Nuclear Antibody Screen Negative Negative [facility] Work Phone: Comment on above: Performed at: [address] [id number] Director: Mick Bradley PhD, Phone: [phone] Centromere B Antibody Not Reportable [facility] Work Phone: TALENT RECRUITER Antibody Not Reportable [facility] Work Phone: Serum DNA double strand anti body assay (units/volume)on 05-08-2022 DNA double strand Ab Qn (S) Not Reportable [facility] Work Phone: Serum Kerry-1 antibody assay (u nits/volume)on 05-08-2022 Kerry-1 extractable nuclear Ab Qn (S) Not Reportable [facility] Work Phone: Serum Scl-70 extractable nuc lear antibody assay (units/volume)on 05-08-2022 SCL-70 extractable nuclear Ab Qn (S) Not Reportable [facility] Work Phone: Serum Benito extractable nucl ear antibody detectionon 05-08-2022 Benito extractable nuclear Ab Ql (S) Not Reportable [facility] Work Phone: Serum cyclic citrullinated p eptide IgG antibody assay (units/volume)on 05-08-2022 Cyclic citrullinated peptide IgG Qn 6 units 0-19 [facility] Work Phone: Comment on above: Negative <20 Weak po sitive 20 - 39 Moderate positive 40 - 59 Strong positive >59Performed at: [facility] [place] [id number] [place], [place] [id number] Director: Payam Ervin MD, Phone: [phone] Serum or plasma C reactive p rotein measurement (mass/volume)on 05-08-2022 CRP [Mass/Vol] mg/L 0.0-3.0 [facility] Work Phone: Comment on above: C-Reactive Protein ( CRP) provides useful information for thediagnosis, therapy and monitoring of inflammatory processesand associated diseases. For the evaluation of Relative Riskfor Cardiovascular Disease, a High Sensitivity CRP (HSCRP)should be ordered. CBC,PLATELETSon 02-17-2022 Hematocrit (Bld) [Volume fraction] 39.7 % Normal 34.9-44.3 [facility] Comment on above: Performed By: #### HESHAM RODARTE, C7ED #### [facility] (DEFAULT) [address] [place] [id number] Hemoglobin (Bld) [Mass/Vol] 13.1 g/dL Normal 11.4-15. 2 [facility] Comment on above: Performed By: #### HESHAM RODARTE C7ED #### [facility] (DEFAULT) [address] [place] [id number] MCV (RBC) [Entitic vol] 93.4 fL Normal 79.6-97.7 [facility] Comment on above: Performed By: #### HESHAM RODARTE C7ED #### [facility] (DEFAULT) [address] [place] [phone] Mean Cell Hgb 30.8 pg Normal 25.9-33.9 [facility] Comment on above: Performed By: #### HESHAM RODARTE C7ED #### [facility] (DEFAULT) [address] [place] [phone] Mean Cell Hgb Conc 33.0 g/dL Normal 31.4-35.9 [facility] Comment on above: Performed By: #### HESHAM RODARTE C7ED #### [facility] (DEFAULT) [address] [place] [address] Platelet mean volume (Bld) [Entitic vol] 10.4 fL Normal 8.5-12.2 [facility] Comment on above: Performed By: #### Rubén BOSE LABWILLI, C7ED #### [facility] (DEFAULT) [address] [place] [address] Platelets (Bld) [#/Vol] 254 10*3/uL Normal 150-393 [facility] Comment on above: Performed By: #### H JUICE, LABHSTIFFANIE1, C7ED #### [facility] (DEFAULT) [address] [place] [address] RBC (Bld) [#/Vol] 4.25 10*6/uL Normal 3.91-5.04 [facility] Comment on above: Performed By: #### H JUICE, LABWILLI, C7ED #### [facility] (DEFAULT) [address] [place] [address]67 RBC Distribution 12.6 % Normal 10.8-14.9 [facility] Comment on above: Performed By: #### Rubén BOSE LABWILLI, C7ED #### [facility] (DEFAULT) [address] [place] [address]459 WBC (Bld) [#/Vol] 6.60 10*3/uL Normal 3.99-11.19 [facility] Comment on above: Performed By: #### H JUICE, LABWILLI, C7ED #### [facility] (DEFAULT) [address] [place] [address]59 Erythrocyte distribution width (RBC) [Ratio] 12.6 % 10.8 - 14.9 % [facility] Hematocrit (Bld) [Volume fraction] 39.7 % 34.9 - 44.3 % [facility] Hemoglobin (Bld) [Mass/Vol] 13.1 g/dL 11.4 - 15.2 g/dL [facility] Interpretation and review of laboratory results Normal [facility] MCH (RBC) [Entitic mass] 30.8 pg 25. 9 - 33.9 pg [facility] MCHC (RBC) [Mass/Vol] 33.0 g/dL 31.4 - 35.9 g/dL [facility] MCV (RBC) [Entitic vol] 93.4 fL 79.6 - 97.7 fL [facility] Platelet mean volume (Bld) [Entitic vol] 10.4 fL 8.5 - 12.2 fL [facility] Platelets (Bld) [#/Vol] 254 10*3/uL 150 - 393 K/uL [facility] RBC (Bld) [#/Vol] 4.25 10*6/uL [facility] WBC (Bld) [#/Vol] 6.60 10*3/uL 3.99 - 11.19 K/uL [facility] CHEM 7 (LYTES,BUN,CREA,GLUC) on 02-17-2022 Anion gap [Moles/Vol] 15 mmol/L Normal 7-17 [facility] Comment on above: Performed By: #### C HM7 #### [facility] (DEFAULT) [address] [address] Chloride [Moles/Vol] 107 mmol/L Normal 98-108 [facility] Comment on above: Performed By: #### C HM7 #### [facility] (DEFAULT) [address] [address] CO2 [Moles/Vol] 22 mmol/L Normal 21-31 [facility] Comment on above: Performed By: #### C HM7 #### [facility] (DEFAULT) [address] [address] Creatinine [Mass/Vol] 0.73 mg/dL Normal 0.50-1.20 [facility] Comment on above: Performed By: #### C HM7 #### [facility] (DEFAULT) [address] [address] GFR/1.73 sq M.predicted among non-blacks MDRD (S/P/Bld) [Vol rate/Area] 81 mL/min/{1.73_m2} Normal >=60 [facility] Comment on above: Result Comment: Repo rted eGFR is based on the CKD-EPI 2020 equation using creatinine, age, and sex. Performed By: #### C HM7 #### [facility] (DEFAULT) [address] [address] Glucose [Mass/Vol] 90 mg/dL Normal 70-99 [facility] Comment on above: Performed By: #### C HM7 #### [facility] (DEFAULT) [address] [place] [address] Osmolality [Osmolality] 294 mosm/kg Normal 278-305 [facility] Comment on above: Performed By: #### C HM7 #### [facility] (DEFAULT) [address] [place] [address] Potassium [Moles/Vol] 4.0 mmol/L Normal 3.5-5.0 [facility] Comment on above: Performed By: #### C HM7 #### [facility] (DEFAULT) [address] [place] [address] Sodium [Moles/Vol] 140 mmol/L Normal 135-145 [facility] Comment on above: Performed By: #### C HM7 #### [facility] (DEFAULT) [address] [place] [address] Urea nitrogen [Mass/Vol] 18 mg/dL Normal 7-25 [facility] Comment on above: Performed By: #### C HM7 #### [facility] (DEFAULT) [address] [place] [address] Urea nitrogen/Creatinine [Mass ratio] 25 mg/mg Normal [facility] Comment on above: Performed By: #### C HM7 #### [facility] (DEFAULT) [address] [place] [address]37 Anion gap [Moles/Vol] 15 mmol/L 7 - 17 mmol/L [facility] Chloride [Moles/Vol] 107 mmol/L 98 - 10 8 mmol/L [facility] CO2 [Moles/Vol] 22 mmol/L 21 - 31 mmol/L [facility] Creatinine [Mass/Vol] 0.73 mg/dL 0.50 - 1.20 mg/dL [facility] GFR/1.73 sq M.predicted CKD-EPI (S/P/Bld) [Vol rate/Area] 81 >=60 mL/min/1.7 3m2 [facility] Comment on above: Reported eGFR is bas ed on the CKD-EPI 2020 equation using creatinine, age, and sex. Glucose [Mass/Vol] 90 mg/dL 70 - 99 mg/dL [facility] Osmolality Calc [[facility]olality] [facility] Potassium [Moles/Vol] 4.0 mmol/L 3.5 - 5.0 mmol/L [facility] Sodium [Moles/Vol] 140 mmol/L 135 - 145 mmol/L [facility] Urea nitrogen [Mass/Vol] 18 mg/dL 7 - 25 mg/dL [facility] Urea nitrogen/Creatinine [Mass ratio] 25 mg/mg [facility] Cardiac echo study Procedure Ordered By: Mary Wall on 02-17-2022 Ao peak matilda 1.05 m/s [facility] Work Phone: AV LVOT peak gradient 4 mmHg [facility] Work Phone: AV peak gradient 4 mmHG [facility] Work Phone: AV regurgitation pressure 1/2 time 671.00 ms [facility] Work Phone: AV Velocity Ratio 0.97 [facility] Work Phone: CARMELINA (continuity Vmax) 2.70 cm2 [facility] Work Phone: CARMELINA index (continuity Vmax) 1.80 m/s [facility] Work Phone: Body surface area Derived from formula 1.5 m2 [facility] Work Phone: DI (Vmax) 0.97 [facility] Work Phone: E wave decelartion time 188.10 msec [facility] Work Phone: EST RAP 8.00 mmHg [facility] Work Phone: EST RVSP 30 mmHg [facility] Work Phone: FS 34 % 28 - 44 % [facility] Work Phone: IVC ostium 1.29 cm [facility] Work Phone: IVS 0.78 cm [facility] Work Phone: LA ESV BP (MOD) 119 mL [facility] Work Phone: LA ESV BP (MOD) index 79 mL/m2 [facility] Work Phone: LA ESV SP 2CH (MOD) 130 mL [facility] Work Phone: LA ESV SP 4CH (MOD) 107 mL [facility] Work Phone: LV [facility] LV Mass Index 46.4 g/m2 [facility] Work Phone: LV RWT 0.42 [facility] Work Phone: LVIDD 3.50 [facility] Work [facility]: LVIDS 2.30 [facility] Work Phone: LVOT area 2.77 cm2 [facility] Work Phone: LVOT diameter 1.88 cm [facility] Work Phone: LVOT peak matilda 1.02 m/s [facility] Work Phone: MV pk E matilda 1.03 m[facility]s [facility]: PV [facility] gradient [facility]: PV PK MATILDA 0.65 m[facility]s [facility] Work [facility]: PW 0.73 cm [facility] Work Phone: RA vol index 4CH (MOD) 64.00 mL/m2 [facility] Work Phone: Right atrium volume 4 chamber method of disks 96 mL [facility] Work Phone: RV Area diastolic 14.48 cm2 [facility] Work Phone: RV Area systolic 9.57 cm2 [facility] Work Phone: RV basal diam 4.21 [facility]: RV Fractional area change 33.9 % [facility] Work Phone: RV long diam 5.10 [facility] Work [facility]: RV mid diam 2.52 [facility] Work Phone: RV S' 12.16 cm/s [facility] Work [facility]: RVOT peak [facility]: RVOT peak matilda 0.61 m/s [facility] Work Phone: TAPSE 1.85 [facility] Work [facility]: TR pk grad 22 [facility] Work [facility]: TR pk matilda 2.35 m[facility]s [facility] Work [facility]: TV rest pulmonary artery pressure 27.07 [facility] Work Phone: [facility] Work Phone: Cardiac echo study Procedure on [...] echocardiography study was performed. Imaging system used: Stellar. [facility] Radiology Study observation (narrative) [facility] ECHOCARDIOGRAMon 02-17-2022 Echocardiography ? Cardiac rhythm is [...] shunt seen with color Doppler. Facility [facility] Patient Information Patient Name Dea Merritt [...] Role Read Date Mary Wall MD Test Income Tax Auditor, Echo [place] 02/17/2022 Left Heart Measurements LV - Systole [...] 30 mmHg (more content not included)... Normal [facility] EXTRA MICROon 02-17-2022 [facility] MR Brain WO contraston 02-17 IMPRESSION: 1. [...] probably due to small vessel ischemic disease. [facility] Radiology Study observation (narrative) [facility] MR Brain WO contrastOrdered By: Marisol Osman on 02-17-2022 [facility] Work Phone: MRI BRAIN WITHOUT CONTRASTon 02-17-2022 [...] due to small vessel ischemic disease. Normal [facility] CBC,PLATELETSon 02-16-2022 Hematocrit (Bld) [Volume fraction] 42.2 % Normal 34.9-44.3 [facility] Comment on above: Performed By: #### H [facility] #### [facility] (DEFAULT) [address] [address] Hemoglobin (Bld) [Mass/Vol] 13.6 g/dL Normal 11.4-15. 2 [facility] Comment on above: Performed By: #### H [facility] #### [facility] (DEFAULT) [address] [address] MCV (RBC) [Entitic vol] 93.0 fL Normal 79.6-97.7 [facility] Comment on above: Performed By: #### H EMOGC #### [facility] (DEFAULT) [address] [address] Mean Cell Hgb 30.0 pg Normal 25.9-33.9 [facility] Comment on above: Performed By: #### H EMOGC #### [facility] (DEFAULT) [address] [address] Mean Cell Hgb Conc 32.2 g/dL Normal 31.4-35.9 [facility] Comment on above: Performed By: #### H EMOGC #### [facility] (DEFAULT) [address] [address] Platelet mean volume (Bld) [Entitic vol] 10.1 fL Normal 8.5-12.2 [facility] Comment on above: Performed By: #### H EMOGC #### [facility] (DEFAULT) [address] [address] Platelets (Bld) [#/Vol] 257 10*3/uL Normal 150-393 [facility] Comment on above: Performed By: #### H EMOGC #### [facility] (DEFAULT) [address] [address] RBC (Bld) [#/Vol] 4.54 10*6/uL Normal 3.91-5.04 [facility] Comment on above: Performed By: #### H EMOGC #### [facility] (DEFAULT) [address] [address] RBC Distribution 12.6 % Normal 10.8-14.9 [facility] Comment on above: Performed By: #### H EMOGC #### [facility] (DEFAULT) [address] [address] WBC (Bld) [#/Vol] 7.07 10*3/uL Normal 3.99-11.19 [facility] Comment on above: Performed By: #### H EMOGC #### [facility] (DEFAULT) [address] [place] [address] Erythrocyte distribution width (RBC) [Ratio] 12.6 % 10.8 - 14.9 % [facility] Hematocrit (Bld) [Volume fraction] 42.2 % 34.9 - 44.3 % [facility] Hemoglobin (Bld) [Mass/Vol] 13.6 g/dL 11.4 - 15.2 g/dL [facility] Interpretation and review of laboratory results Normal [facility] MCH (RBC) [Entitic mass] 30.0 pg 25. 9 - 33.9 pg [facility] MCHC (RBC) [Mass/Vol] 32.2 g/dL 31.4 - 35.9 g/dL [facility] MCV (RBC) [Entitic vol] 93.0 fL 79.6 - 97.7 fL [facility] Platelet mean volume (Bld) [Entitic vol] 10.1 fL 8.5 - 12.2 fL [facility] Platelets (Bld) [#/Vol] 257 10*3/uL 150 - 393 K/uL [facility] RBC (Bld) [#/Vol] 4.54 10*6/uL [facility] WBC (Bld) [#/Vol] 7.07 10*3/uL 3.99 - 11.19 K/uL [facility] CHEM 7 (LYTES,BUN,CREA,GLUC) on 02-16-2022 Anion gap [Moles/Vol] 14 mmol/L Normal 7-17 [facility] Comment on above: Performed By: #### H FP, LABHSTI1, C7ED #### [facility] (DEFAULT) [address] [place] [address] Chloride [Moles/Vol] 105 mmol/L Normal 98-108 [facility] Comment on above: Performed By: #### H FP, LABHSTI1, C7ED #### [facility] (DEFAULT) [address] [place] [address] CO2 [Moles/Vol] 24 mmol/L Normal 21-31 [facility] Comment on above: Performed By: #### H HESHAM BSOE C7ED #### [facility] (DEFAULT) [address] [place] [address] Creatinine [Mass/Vol] 0.87 mg/dL Normal 0.50-1.20 [facility] Comment on above: Performed By: #### H HESHAM BOSE C7ED #### [facility] (DEFAULT) [address] [place] [address] GFR/1.73 sq M.predicted among non-blacks MDRD (S/P/Bld) [Vol rate/Area] 66 mL/min/{1.73_m2} Normal >=60 [facility] Comment on above: Result Comment: Repo rted eGFR is based on the CKD-EPI 2020 equation using creatinine, age, and sex. Performed By: #### H HESHAM BOSE C7ED #### [facility] (DEFAULT) [address] [place] [address] Glucose [Mass/Vol] 121 mg/dL High 70-99 [facility] Comment on above: Performed By: #### HESHAM RODARTE C7ED #### [facility] (DEFAULT) [address] [place] [address] Osmolality [Osmolality] 294 mosm/kg Normal 278-305 [facility] Comment on above: Performed By: #### HESHAM RODARTE C7ED #### [facility] (DEFAULT) [address] [place] [address] Potassium [Moles/Vol] 3.4 mmol/L Low 3.5-5.0 [facility] Comment on above: Performed By: #### HESHAM RODARTE C7ED #### [facility] (DEFAULT) [address] [place] [address] Sodium [Moles/Vol] 140 mmol/L Normal 135-145 [facility] Comment on above: Performed By: #### H JUICE, LABHSTI1, C7ED #### [facility] (DEFAULT) [address] [place] [address] Urea nitrogen [Mass/Vol] 15 mg/dL Normal 7-25 [facility] Comment on above: Performed By: #### H FP, LABHSTI1, C7ED #### [facility] (DEFAULT) [address] [place] [address] Urea nitrogen/Creatinine [Mass ratio] 17 mg/mg Normal [facility] Comment on above: Performed By: #### H JUICE, LABTI1, C7ED #### [facility] (DEFAULT) [address] [place] [address] Anion gap [Moles/Vol] 14 mmol/L 7 - 17 mmol/L [facility] Chloride [Moles/Vol] 105 mmol/L 98 - 10 8 mmol/L [facility] CO2 [Moles/Vol] 24 mmol/L 21 - 31 mmol/L [facility] Creatinine [Mass/Vol] 0.87 mg/dL 0.50 - 1.20 mg/dL [facility] GFR/1.73 sq M.predicted CKD-EPI (S/P/Bld) [Vol rate/Area] 66 >=60 mL/min/1.7 3m2 [facility] Comment on above: Reported eGFR is bas ed on the CKD-EPI 2020 equation using creatinine, age, and sex. Glucose [Mass/Vol] 121 mg/dL High 70 - 99 mg/dL [facility] Osmolality Calc [Osmolality] 294 [facility] Potassium [Moles/Vol] 3.4 mmol/L Low 3.5 - 5.0 mmol/L [facility] Sodium [Moles/Vol] 140 mmol/L 135 - 145 mmol/L [facility] Urea nitrogen [Mass/Vol] 15 mg/dL 7 - 25 mg/dL [facility] Urea nitrogen/Creatinine [Mass ratio] 17 mg/mg [facility] CONTINUOUS CARDIAC MONITORIN G STRIPon 02-16-2022 [facility] CONTINUOUS CARDIAC MONITORIN G STRIPOrdered By: Unassigned Pacs on 02-16-2022 [facility] Work Phone: CT CEREBRAL PERFUSION ANALYS Catie [...] Ayala on 02/16/2022 12:11 AM . Normal [facility] IMPRESSION: Area of large mismatch perfusion abnormality [...] Brett Ayala on 02/16/2022 12:11 AM . [facility] CT CEREBRAL PERFUSION ANALYS ISOrdered By: Brett Ayala on 02-16-2022 [facility] Work Phone: CT HEAD WITHOUT CONTRASTon 0 [...] hemorrhage or acute large territory infarct. Normal [facility] CT Head WO contraston 2021 IMPRESSION: No [...] intracranial hemorrhage or acute large territory infarct. [facility] HEMOGLOBIN [id number] By: Duarte Garibay on 02-16-2022 Average glucose Estimated from glycated hemoglobin (Bld) [Mass/Vol] 131 mg/dL [facility] HbA1c (Bld) [Mass fraction] 6.2 % High 4.7 - 5.6 % [facility] Interpretation and review of laboratory results Abnormal [facility] HEMOGLOBIN A1Con 02-16-2022 Glucose [Mass/Vol] 131 mg/dL Normal [facility] Comment on above: Performed By: #### H HESHAM BOSE C7ED #### [facility] (DEFAULT) [address] [place] [address] HbA1c (Bld) [Mass fraction] 6.2 % High 4.7-5.6 [facility] Comment on above: Performed By: #### H HESHAM BOSE C7ED #### [facility] (DEFAULT) [address] [address] HEPATIC FUNCTION PANELon Albumin [Mass/Vol] 3.9 g/dL Normal 3.5-5.0 [facility] Comment on above: Performed By: #### H HESHAM BOSE C7ED #### [facility] (DEFAULT) [address] [place] [address] ALP [Catalytic activity/Vol] 54 U/L Normal 32-126 [facility] Comment on above: Performed By: #### H HESHAM BOSE, C7ED #### [facility] (DEFAULT) [address] [place] [address] ALT [Catalytic activity/Vol] 23 U/L Normal 9-48 [facility] Comment on above: Performed By: #### H HESHAM BOSE C7ED #### [facility] (DEFAULT) [address] [place] [address] AST [Catalytic activity/Vol] 24 U/L Normal 10-39 [facility] Comment on above: Performed By: #### H HESHAM BOSE C7ED #### [facility] (DEFAULT) [address] [place] [address] Bilirubin [Mass/Vol] 0.6 mg/dL Normal <1.5 [facility] Comment on above: Performed By: #### H HESHAM BOSE C7ED #### [facility] (DEFAULT) [address] [place] [address] Bilirubin.indirect [Mass/Vol] 0.1 mg/dL Normal <0.3 [facility] Comment on above: Performed By: #### H HESHAM BOSE C7ED #### [facility] (DEFAULT) [address] [place] [address] Protein [Mass/Vol] 6.7 g/dL Normal 6.4-8.3 [facility] Comment on above: Performed By: #### H HESHAM BOSE C7ED #### [facility] (DEFAULT) [address] [place] [address] Albumin [Mass/Vol] 3.9 g/dL 3.5 - 5.0 g/dL [facility] ALP [Catalytic activity/Vol] 54 U/L 32 - 126 U/L [facility] ALT [Catalytic activity/Vol] 23 U/L 9 - 48 U/L [facility] AST [Catalytic activity/Vol] 24 U/L 10 - 39 U/L [facility] Bilirubin [Mass/Vol] 0.6 mg/dL <1.5 [facility] Bilirubin.direct [Mass/Vol] 0.1 mg/dL <0.3 [facility] Protein [Mass/Vol] 6.7 g/dL 6.4 - 8.3 g/dL [facility] LIPID PANEL WITH REFLEX TO M GUERLINE LDLon 02-16-2022 Calculated LDL Cholesterol 187 mg/dL High 0-99 [facility] Comment on above: Result Comment: [<10 0 mg/dL: Optimal] [100-129 mg/dL: Near Optimal] [130-159 mg/dL: Borderline High] [160-189 mg/dL: High] [>189 mg/dL: Very High] Performed By: #### H JUICE, LABHSTI1, C7ED #### [facility] (DEFAULT) [address] [address] Cholesterol [Mass/Vol] 285 mg/dL High <200 [facility] Comment on above: Result Comment: [<20 0 mg/dL: Desirable] [200-239 mg/dL: Borderline High] [>239 mg/dL: High] Performed By: #### H JUICE, LABHSTI1, C7ED #### [facility] (DEFAULT) [address] [place] [address] Cholesterol in HDL [Mass/Vol] 71 mg/dL Normal >=40 [facility] Comment on above: Result Comment: [<40 mg/dL: Low (High Risk)] [>59 mg/dL: High (Low Risk)] Performed By: #### H JUICE, LABHSTI1, C7ED #### [facility] (DEFAULT) [address] [place] [address] Non HDL Cholesterol 214 mg/dL High <130 [facility] Comment on above: Performed By: #### H JUICE, LABHSTI1, C7ED #### [facility] (DEFAULT) [address] [place] [address] Total Cholesterol/HDL Ratio 4.0 Normal <4.5 [facility] Comment on above: Performed By: #### Rubén BOSE, CATE1, C7ED #### [facility] (DEFAULT) [address] [place] [address] Triglyceride [Mass/Vol] 137 mg/dL Normal <150 [facility] Comment on above: Result Comment: [<15 0 mg/dL: Desirable] [150-199 mg/dL: Borderline] [200-499 mg/dL: High] [>500 mg/dL: Very High] Performed By: #### Rubén BOSE, HESHAM, C7ED #### [facility] (DEFAULT) [address] [place] [address] Cholesterol [Mass/Vol] 285 mg/dL High <200 [facility] Comment on above: [<200 mg/dL: Desirab le] [200-239 mg/dL: Borderline High] [>239 mg/dL: High] Cholesterol in HDL [Mass/Vol] 71 mg/dL >=40 [facility] Comment on above: [<40 mg/dL: Low (Hig h Risk)] [>59 mg/dL: High (Low Risk)] Cholesterol in HDL [Mass/Vol] 214 mg/dL High <130 [facility] [place] Cholesterol in LDL [Mass/Vol] 187 mg/dL High 0 - 99 mg/dL [facility] [place] Comment on above: [<100 mg/dL: Optimal ] [100-129 mg/dL: Near Optimal] [130-159 mg/dL: Borderline High] [160-189 mg/dL: High] [>189 mg/dL: Very High] Cholesterol.total/Cholester ol in HDL [Mass ratio] 4.0 {ratio} <4.5 [facility] Triglyceride [Mass/Vol] 137 mg/dL <150 [facility] Comment on above: [<150 mg/dL: Desirab le] [150-199 mg/dL: Borderline] [200-499 mg/dL: High] [>500 mg/dL: Very High] LT BLUE TOP TUBEon 2 [facility] [place] MAGNESIUMon 02-16-2022 Magnesium [Mass/Vol] 1.9 mg/dL Normal 1.6-2.6 [facility] Comment on above: Performed By: #### H , LABHSTI1, C7ED #### [facility] [place] (DEFAULT) [address] [address] Magnesium [Mass/Vol] 1.9 mg/dL 1.6 - 2 .6 mg/dL [facility] [place] No Panel Informationon 02-16 Interpretation and review of laboratory results Abnormal [facility] [place] Interpretation and review of laboratory results Normal [facility] TOXICOLOGY SCREEN URINE - UD RGOrdered By: Nathalia Nguyen on 02-16-2022 Barbiturates Ql (U) Negative Cutoff: 200 ng/mL [facility] [place] Cannabinoids Screen Ql (U) Negative C utoff: 50 ng/mL [facility] [place] Drugs identified Screen Nom (U) Negative Negative [facility] [place] Interpretation and review of laboratory results Normal [facility] [place] For Medical Purposes Only. Nonforensic screen results are considered presumptive and no confirmatory testing will follow. Drugs are detected by immunoassay or Liquid Chromatography Mass Spectrometry (LC-MS/MS). The LC-MS/MS test was developed and its performance characteristics determined by the Toxicology Laboratory at [facility]. It has not been cleared or approved [...] Alprazolam(50), Amitriptyline(50), Amphetamine(250), Atenolol(500),Benzoyle cgonine(50), Buprenorphine(100), Bupropion(25),Caffeine (13935),Chlordiazepoxi de(50), Chlorpheniramine(100), Chlorpromazine(50), Citalopram(100), Clonazepam(200), Cocaine(25),Codeine(20 0), [...] Tramadol(50), Trazodone(25), Triazolam(100), Trifluoperazine (100),Venlafaxine(50), Verapamil(100), Zolpidem(200) [facility] TOXICOLOGY SCREEN URINE - UD RGon 02-16-2022 Barbiturates Negative Normal Cutoff: 200 ng/mL [facility] Comment on above: Order Comment: For M edical Purposes Only. Nonforensic screen results are considered presumptive and no confirmatory testing will follow. Drugs are detected by immunoassay or Liquid Chromatography Mass Spectrometry (LC-MS/MS). The LC-MS/MS test was developed and its performance characteristics determined by the Toxicology Laboratory at [facility]. It has not been cleared or approved [...] (200), Alphahydrozyalprazolam(200), Alprazolam(50), Amitriptyline(50), Amphetamine(250), Atenolol(500),Benzoylecgonine(50), Buprenorphine(100), Bupropion(25),Caffeine(83705),Chlordiazepoxide(50), Chlorpheniramine(100), Chlorpromazine(50), Citalopram(100), Clonazepam(200), Cocaine(25),Codeine(200), Cotinine(500),Desipramine(50), Desmethyldoxepin(100), [...] Performed By: #### U DRG #### [facility] (DEFAULT) [address] [place] [address] Cannabinoids Screen Ql (U) Negative Normal C utoff: 50 ng/mL [facility] Comment on above: Order Comment: For M edical Purposes Only. Nonforensic screen results are considered presumptive and no confirmatory testing will follow. Drugs are detected by immunoassay or Liquid Chromatography Mass Spectrometry (LC-MS/MS). The LC-MS/MS test was developed and its performance characteristics determined by the Toxicology Laboratory at [facility]. It has not been cleared or approved [...] (200), Alphahydrozyalprazolam(200), Alprazolam(50), Amitriptyline(50), Amphetamine(250), Atenolol(500),Benzoylecgonine(50), Buprenorphine(100), Bupropion(25),Caffeine(69373),Chlordiazepoxide(50), Chlorpheniramine(100), Chlorpromazine(50), Citalopram(100), Clonazepam(200), Cocaine(25),Codeine(200), Cotinine(500),Desipramine(50), Desmethyldoxepin(100), [...] Performed By: #### U DRG #### [facility] (DEFAULT) [address] [place] [address] Drugs Detected Urine Tox Negative Normal Negative [facility] Comment on above: Order Comment: For M edical Purposes Only. Nonforensic screen results are considered presumptive and no confirmatory testing will follow. Drugs are detected by immunoassay or Liquid Chromatography Mass Spectrometry (LC-MS/MS). The LC-MS/MS test was developed and its performance characteristics determined by the Toxicology Laboratory at [facility]. It has not been cleared or approved [...] (200), Alphahydrozyalprazolam(200), Alprazolam(50), Amitriptyline(50), Amphetamine(250), Atenolol(500),Benzoylecgonine(50), Buprenorphine(100), Bupropion(25),Caffeine(06861),Chlordiazepoxide(50), Chlorpheniramine(100), Chlorpromazine(50), Citalopram(100), Clonazepam(200), Cocaine(25),Codeine(200), Cotinine(500),Desipramine(50), Desmethyldoxepin(100), [...] Performed By: #### U DRG #### [facility] (DEFAULT) [address] [place] [address] URINE DIPSTICK; REFLEX MICRO SCOPY; REFLEX CULTURE PERFORMABLEon 02-16-2022 Appearance (U) Clear Normal Clear [facility] Comment on above: Performed By: #### H FP, LABHSTI1, C7ED #### [facility] (DEFAULT) [address] [place] [address] Blood Urine Negative Normal Negative [facility] Comment on above: Performed By: #### H FP, LABHSTI1, C7ED #### [facility] (DEFAULT) [address] [place] [address] Color (U) Yellow Normal Yellow [facility] Comment on above: Performed By: #### H FP, LABHSTI1, C7ED #### [facility] (DEFAULT) [address] [place] [address] Glucose Ql (U) Negative Normal Negative [facility] Comment on above: Performed By: #### H FP, LABHSTI1, C7ED #### [facility] (DEFAULT) [address] [place] [address] Ketones Ql (U) Negative Normal Negative [facility] Comment on above: Performed By: #### H FP, LABHSTI1, C7ED #### [facility] (DEFAULT) [address] [place] [address] Leukocyte esterase Test strip Ql (U) Negative Normal Negative [facility] Comment on above: Performed By: #### H FP, LABHSTI1, C7ED #### [facility] (DEFAULT) [address] [place] [address] Nitrites Urine Negative Normal Negative [facility] Comment on above: Performed By: #### H JUICE, LABLOU, C7ED #### [facility] (DEFAULT) [address] [place] [address] pH (U) 5.5 [pH] Normal 5.0-7.0 [facility] Comment on above: Performed By: #### H JUICE, LABLOU, C7ED #### [facility] (DEFAULT) [address] [place] [address] Protein Urine Negative Normal Negative [facility] Comment on above: Performed By: #### H JUICE LABLOU, C7ED #### [facility] (DEFAULT) [address] [place] [address] Specific [place] Urine <=1.005 Normal 1.001 -1.03 5 [facility] Comment on above: Performed By: #### H JUICE LABLOU, C7ED #### [facility] (DEFAULT) [address] [place] [address] Urobilinogen Urine 0.2 E.U./dL Normal 0.2 E.U/dL, 1.0 E.U/dL [facility] Comment on above: Performed By: #### H , LABLOU, C7ED #### [facility] [place] (DEFAULT) [address] [place] [address] Appearance (U) Clear Clear [facility] [place] Color (U) Yellow Yellow [facility] Glucose Test strip (U) [Mass[facility]Vol] [facility] Interpretation and review of laboratory results Normal [facility] Ketones (U) [Mass/Vol] Negative Negative [facility] Leukocyte esterase Test strip Ql (U) Negative Negative [facility] Nitrite Ql (U) Negative Negative [facility] pH (U) 5.5 [pH] 5.0 - 7.0 [facility] Protein (U) [Mass/Vol] Negative Negative [facility] RBC (U) [#/Vol] Negative Negative [facility] Specific gravity (U) [Rel density] <=1.005 [facility] [place] Urobilinogen (U) [Mass/Vol] 0.2 E.U./dL 0.2 E.U/dL, 1.0 E.U/dL [facility] Absolute lymphocyte counton 02-15-2022 Lymphocytes Auto (Unsp spec) [#/Vol] 1.82 10*3/uL 0.83-4.51 [facility] Work Phone: Basophil percentageon 2021 Basophil percentage 0 SEEN /hpf 0-5 [facility] Work Phone: [phone] Basophils/100 WBC (Bld) 1.2 % 0-1 [facility] Work Phone: Chloride [Moles/Vol] 105 mmol/L 98-107 [facility] Work Phone: Eosinophils/100 WBC (Bld) 3.0 % 0-5 [facility] Work Phone: Glucose [Mass/Vol] 104 mg/dL 74-106 [facility] Work Phone: Comment on above: Fasting Glucose resu lt from 100 to 125 mg/dL suggests IMPAIRED HOMEOSTASIS per A.D.A. criteria. Neutrophils (Bld) [#/Vol] 4.7 10*3/uL 2.0-7.7 [facility] Work Phone: Neutrophils/100 WBC (Bld) 62.4 % 47-70 [facility] Work Phone: Potassium [Moles/Vol] 3.9 mmol/L 3.5-5.1 [facility] Work Phone: Sodium [Moles/Vol] 138 mmol/L 136-145 [facility] Work Phone: WBC (Bld) [#/Vol] 7.6 10*3/uL 4.4-11.0 [facility] Work Phone: Bilirubin Test strip Ql (U)o n 02-15-2022 Bilirubin Ql (U) Negative Negative [facility] Work Phone: Blood erythrocytes count (nu mber/volume)on 02-15-2022 RBC (Bld) [#/Vol] 4.41 10*6/uL 4.2-5.4 [facility] Work Phone: Blood hemoglobin measurement (mass/volume)on 02-15-2022 Hemoglobin (Bld) [Mass/Vol] 13.7 g/dL 12.0-15. 0 [facility] Work Phone: Blood lymphocytes/100 leukoc yteson 02-15-2022 Lymphocytes/100 WBC (Bld) 24.0 % 19-41 [facility] Work Phone: Blood monocytes/100 leukocyt eson 02-15-2022 Monocytes/100 WBC (Bld) 9.1 % 0-10 [facility] Work Phone: Blood platelet mean volumeon 02-15-2022 Platelet mean volume (Bld) [Entitic vol] 10.1 fL 6.2-12.0 [facility] Work Phone: CBC AND ELECTRONIC DIFFon Basophils (Bld) [#/Vol] 0.09 10*3/uL Normal 0.00-0.15 [facility] Comment on above: Performed By: #### L AB980 #### [facility] [place] (DEFAULT) [address] [place] [address] Basophils/100 WBC (Bld) 1.4 % Normal [facility] Comment on above: Performed By: #### L AB980 #### [facility] (DEFAULT) [address] [place] [address] DIFF STATUS Electronic Differential Normal [facility] Comment on above: Performed By: #### L AB980 #### [facility] [place] (DEFAULT) [address] [place] [address] Eosinophils (Bld) [#/Vol] 0.20 10*3/uL Normal 0.00-0.4 2 [facility] Comment on above: Performed By: #### L AB980 #### [facility] [place] (DEFAULT) [address] [address] Eosinophils/100 WBC (Bld) 3.1 % Normal [facility] Comment on above: Performed By: #### L AB980 #### [facility] [place] (DEFAULT) [address] [address] Hematocrit (Bld) [Volume fraction] 43.8 % Normal 34.9-44.3 [facility] Comment on above: Performed By: #### L AB980 #### [facility] [place] (DEFAULT) [address] [address] Hemoglobin (Bld) [Mass/Vol] 13.8 g/dL Normal 11.4-15. 2 [facility] Comment on above: Performed By: #### L AB980 #### [facility] [place] (DEFAULT) [address] [address] Immature Grans % 0.2 % Normal [facility] Comment on above: Performed By: #### L AB980 #### [facility] [place] (DEFAULT) [address] [address] Immature Grans Absolute <0.04 Normal <=0.09 [facility] Comment on above: Performed By: #### L AB980 #### [facility] [place] (DEFAULT) [address] [address] Lymphocytes (Bld) [#/Vol] 2.51 10*3/uL Normal 1.16-3.5 1 [facility] Comment on above: Performed By: #### L AB980 #### [facility] [place] (DEFAULT) [address] [address] Lymphocytes/100 WBC (Bld) 38.6 % Normal [facility] Comment on above: Performed By: #### L AB980 #### [facility] [place] (DEFAULT) [address] [address] MCV (RBC) [Entitic vol] 96.1 fL Normal 79.6-97.7 [facility] Comment on above: Performed By: #### L AB980 #### [facility] [place] (DEFAULT) [address] [address] Mean Cell Hgb 30.3 pg Normal 25.9-33.9 [facility] Comment on above: Performed By: #### L AB980 #### [facility] [place] (DEFAULT) [address] [address] Mean Cell Hgb Conc 31.5 g/dL Normal 31.4-35.9 [facility] Comment on above: Performed By: #### L AB980 #### [facility] [place] (DEFAULT) [address] [address] Monocytes (Bld) [#/Vol] 0.51 10*3/uL Normal 0.22-0.87 [facility] Comment on above: Performed By: #### L AB980 #### [facility] (DEFAULT) [address] [address] Monocytes/100 WBC (Bld) 7.8 % Normal [facility] Comment on above: Performed By: #### L AB980 #### [facility] [place] (DEFAULT) [address] [address] Nucleated RBC 0.0 /100 WBC Normal <=0.2 [facility] [place] Comment on above: Performed By: #### L AB980 #### [facility] (DEFAULT) [address] [address] Platelet mean volume (Bld) [Entitic vol] 10.0 fL Normal 8.5-12.2 [facility] Comment on above: Performed By: #### L AB980 #### [facility] (DEFAULT) [address] [address] Platelets (Bld) [#/Vol] 250 10*3/uL Normal 150-393 [facility] Comment on above: Performed By: #### L AB980 #### [facility] [place] (DEFAULT) [address] [place] [address] RBC (Bld) [#/Vol] 4.56 10*6/uL Normal 3.91-5.04 [facility] Comment on above: Performed By: #### L AB980 #### [facility] [place] (DEFAULT) [address] [place] [address] RBC Distribution 12.9 % Normal 10.8-14.9 [facility] Comment on above: Performed By: #### L AB980 #### [facility] [place] (DEFAULT) [address] [place] [address] Segs + Bands Auto 48.9 % Normal [facility] Comment on above: Performed By: #### L AB980 #### [facility] [place] (DEFAULT) [address] [place] [address] Segs + Bands,Absolute Auto 3.18 K/uL Normal 1.64-7.28 [facility] Comment on above: Performed By: #### L AB980 #### [facility] [place] (DEFAULT) [address] [place] [address] WBC (Bld) [#/Vol] 6.50 10*3/uL Normal 3.99-11.19 [facility] Comment on above: Performed By: #### L AB980 #### [facility] [place] (DEFAULT) [address] [place] [address] Basophils (Bld) [#/Vol] 0.09 10*3/uL 0.00 - 0.15 K/uL [facility] [place] Basophils/100 WBC (Bld) 1.4 % [facility] Differential cell count method Nom (Bld) Electronic Differential [facility] [place] Eosinophils (Bld) [#/Vol] 0.20 10*3/uL 0. 00 - 0.42 K/uL [facility] [place] Eosinophils/100 WBC (Bld) 3.1 % [facility] [place] Erythrocyte distribution width (RBC) [Ratio] 12.9 % 10.8 - 14.9 % [facility] [place] Hematocrit (Bld) [Volume fraction] 43.8 % 34.9 - 44.3 % [facility] [place] Hemoglobin (Bld) [Mass/Vol] 13.8 g/dL 11.4 - 15.2 g/dL [facility] [place] Immature granulocytes (Bld) [#/Vol] 10*3/uL <=0.09 K/uL [facility] [place] Immature granulocytes/100 WBC (Bld) 0.2 % [facility] [place] Lymphocytes (Bld) [#/Vol] 2.51 10*3/uL 1. 16 - 3.51 K/uL [facility] [place] Lymphocytes/100 WBC (Bld) 38.6 % [facility] [place] MCH (RBC) [Entitic mass] 30.3 pg 25. 9 - 33.9 pg [facility] [place] MCHC (RBC) [Mass/Vol] 31.5 g/dL 31.4 - 35.9 g/dL [facility] [place] MCV (RBC) [Entitic vol] 96.1 fL 79.6 - 97.7 fL [facility] [place] Monocytes (Bld) [#/Vol] 0.51 10*3/uL 0.22 - 0.87 K/uL [facility] [place] Monocytes/100 WBC (Bld) 7.8 % [facility] Neutrophils (Bld) [#/Vol] 3.18 10*3/uL 1. 64 - 7.28 K/uL [facility] [place] Nucleated RBC/100 WBC (Bld) [Ratio] 0.0 % <=0.2 /100 WBC [facility] [place] Platelet mean volume (Bld) [Entitic vol] 10.0 fL 8.5 - 12.2 fL [facility] [place] Platelets (Bld) [#/Vol] 250 10*3/uL 150 - 393 K/uL [facility] [place] RBC (Bld) [#/Vol] 4.56 10*6/uL [facility] Segmented neutrophils/100 WBC (Bld) 48.9 % [facility] [place] WBC (Bld) [#/Vol] 6.50 10*3/uL 3.99 - 11.19 K/uL [facility] CHM 7 - EDon 02-15-2022 Anion gap [Moles/Vol] 13 mmol/L Normal 7-17 [facility] Comment on above: Performed By: #### H HESHAM BOSE, C7ED #### [facility] [place] (DEFAULT) [address] [place] [address] Chloride [Moles/Vol] 102 mmol/L Normal 98-108 [facility] Comment on above: Performed By: #### HESHAM RODARTE, WilmaED #### [facility] [place] (DEFAULT) [address] [place] [address] CO2 [Moles/Vol] 25 mmol/L Normal 21-31 [facility] [place] Comment on above: Performed By: #### HESHAM RODARTE C7ED #### [facility] [place] (DEFAULT) [address] [place] [address] Creatinine [Mass/Vol] 0.73 mg/dL Normal 0.50-1.20 [facility] Comment on above: Performed By: #### HESHAM RODARTE, C7ED #### [facility] [place] (DEFAULT) [address] [place] [address] GFR/1.73 sq M.predicted among non-blacks MDRD (S/P/Bld) [Vol rate/Area] 81 mL/min/{1.73_m2} Normal >=60 [facility] Comment on above: Result Comment: Repo rted eGFR is based on the CKD-EPI 2020 equation using creatinine, age, and sex. Performed By: #### H HESHAM BOSE, C7ED #### [facility] [place] (DEFAULT) [address] [place] [address] Glucose [Mass/Vol] 94 mg/dL Normal 70-99 [facility] Comment on above: Performed By: #### HESHAM RODARTE C7ED #### [facility] (DEFAULT) [address] [place] [address] Osmolality [Osmolality] 286 mosm/kg Normal 278-305 [facility] Comment on above: Performed By: #### HESHAM RODARTE, C7ED #### [facility] (DEFAULT) [address] [place] [address] Potassium [Moles/Vol] 3.6 mmol/L Normal 3.5-5.0 [facility] Comment on above: Performed By: #### HESHAM RODARTE C7ED #### [facility] (DEFAULT) [address] [place] [address] Sodium [Moles/Vol] 136 mmol/L Normal 135-145 [facility] Comment on above: Performed By: #### HESHAM RODARTE C7ED #### [facility] (DEFAULT) [address] [place] [address] Urea nitrogen [Mass/Vol] 17 mg/dL Normal 7-25 [facility] Comment on above: Performed By: #### HESHAM RODARTE C7ED #### [facility] (DEFAULT) [address] [place] [address] Urea nitrogen/Creatinine [Mass ratio] 23 mg/mg Normal [facility] Comment on above: Performed By: #### HESHAM RODARTE C7ED #### [facility] (DEFAULT) [address] [place] [address] Anion gap [Moles/Vol] 13 mmol/L 7 - 17 mmol/L [facility] [place] Chloride [Moles/Vol] 102 mmol/L 98 - 10 8 mmol/L [facility] [place] CO2 [Moles/Vol] 25 mmol/L 21 - 31 mmol/L [facility] [place] Creatinine [Mass/Vol] 0.73 mg/dL 0.50 - 1.20 mg/dL [facility] [place] GFR/1.73 sq M.predicted CKD-EPI (S/P/Bld) [Vol rate/Area] 81 >=60 mL/min/1.7 3m2 [facility] [place] Comment on above: Reported eGFR is bas ed on the CKD-EPI 2020 equation using creatinine, age, and sex. Glucose [Mass/Vol] 94 mg/dL 70 - 99 mg/dL [facility] [place] Osmolality Calc [Osmolality] 286 [facility] [place] Potassium [Moles/Vol] 3.6 mmol/L 3.5 - 5.0 mmol/L [facility] [place] Sodium [Moles/Vol] 136 mmol/L 135 - 145 mmol/L [facility] [place] Urea nitrogen [Mass/Vol] 17 mg/dL 7 - 25 mg/dL [facility] [place] Urea nitrogen/Creatinine [Mass ratio] 23 mg/mg [facility] [place] CT CEREBRAL PERFUSION ANALYS Catie 02-15-2022 Radiology Study observation (narrative) [facility] [place] CT Head WO contraston 2021 Radiology Study observation (narrative) [facility] [place] Determination of erythrocyte mean corpuscular volume (MCV)on 02-15-2022 MCV (RBC) [Entitic vol] 93.2 fL 81-99 [facility] Work Phone: Glucose Glucometer (BldC) [M ass/Vol]on 02-15-2022 Glucose [Mass/Vol] 98 mg/dL 74-106 [facility] Work Phone: Comment on above: MANAGEMENT OF PATIEN T CARE PER NURSING PROTOCOL HEPATIC FUNCTION PANELon Albumin [Mass/Vol] 4.1 g/dL Normal 3.5-5.0 [facility] Comment on above: Performed By: #### HESHAM RODARTE C7ED #### [facility] [place] (DEFAULT) [address] [place] [address] ALP [Catalytic activity/Vol] 56 U/L Normal 32-126 [facility] Comment on above: Performed By: #### HESHAM RODARTE, C7ED #### [facility] [place] (DEFAULT) [address] [place] [address] ALT [Catalytic activity/Vol] 27 U/L Normal 9-48 [facility] Comment on above: Performed By: #### Rubén BOSE LABTIFFANIE1, C7ED #### [facility] (DEFAULT) [address] [place] [address] AST [Catalytic activity/Vol] 30 U/L Normal 10-39 [facility] Comment on above: Performed By: #### Rubén BOSE LABTIFFANIE1, C7ED #### [facility] (DEFAULT) [address] [place] [address] Bilirubin [Mass/Vol] 0.6 mg/dL Normal <1.5 [facility] Comment on above: Performed By: #### Rubén BOSE, LABHSTIFFANIE1, C7ED #### [facility] (DEFAULT) [address] [place] [address] Bilirubin.indirect [Mass/Vol] mg/dL Normal <0.3 [facility] Comment on above: Performed By: #### Rubén BOSE LABLOU, C7ED #### [facility] (DEFAULT) [address] [place] [id number] Protein [Mass/Vol] 6.9 g/dL Normal 6.4-8.3 [facility] Comment on above: Performed By: #### Rubén BOSE LABHSTI1, C7ED #### [facility] (DEFAULT) [address] [place] [id number] Albumin [Mass/Vol] 4.1 g/dL 3.5 - 5.0 g/dL [facility] ALP [Catalytic activity/Vol] 56 U/L 32 - 126 U/L [facility] ALT [Catalytic activity/Vol] 27 U/L 9 - 48 U/L [facility] AST [Catalytic activity/Vol] 30 U/L 10 - 39 U/L [facility] Bilirubin [Mass/Vol] 0.6 mg/dL <1.5 [facility] Bilirubin.direct [Mass/Vol] mg/dL <0.3 mg/ dL [facility] Protein [Mass/Vol] 6.9 g/dL 6.4 - 8.3 g/dL [facility] HIGH SENSITIVITY TROPONIN I - SINGLE ORDERon 02-15-2022 hs-Troponin I 7 ng/L Normal <34 [facility] Comment on above: Order Comment: Acute Coronary Syndrome (ACS): Initial Evaluation and Management: [email or web address] Performed By: #### H , LABHSTI1, C7ED #### [facility] (DEFAULT) [address] [place] [address] Interpretation and review of laboratory results Normal [facility] Troponin I.cardiac DL <= 0.01 ng/mL [Mass/Vol] 7 ng/L <34 [facility] Hematocrit Auto (Bld) [Volum e fraction]on 02-15-2022 Hematocrit (Bld) [Volume fraction] 41.1 % 37-47 [facility] Work Phone: INR in Blood by Coagulation assayon 02-15-2022 INR Coag (Bld) [Relative time] 1.1 {INR} [facility] Work Phone: Ketones Test strip Ql (U)on 02-15-2022 Ketones Ql (U) Negative Negative [facility] Work Phone: Laboratory - Chemistry and C hemistry - challengeon 02-15-2022 CO2 [Moles/Vol] 26.0 mmol/L 21.0-32.0 [facility] Work Phone: Urea nitrogen/Creatinine [Mass ratio] 28.5 mg/mg 10-20 [facility] Work Phone: Laboratory - Coagulationon 0 02-15-2022 aPTT Coag (Bld) [Time] 27.4 s 24.1-36.2 [facility] Work Phone: PT Coag (PPP) [Time] 13.7 s 11.7-14.9 [facility] Work Phone: Laboratory - Hematology and Cell countson 02-15-2022 Erythrocyte distribution width (RBC) [Entitic vol] 43.4 fL 35.1-43.9 [facility] Work Phone: Erythrocyte distribution width (RBC) [Ratio] 12.6 % 11.6-14.6 [facility] Work Phone: Immature granulocytes/100 WBC (Bld) 0.300 % 0.0-0.9 [facility] Work Phone: Comment on above: IG% - Immature Granu locytes (promyelocytes, myelocytes and metamyelocytes) > 1% indicates that a LEFT SHIFT is Present. MCH (RBC) [Entitic mass] 31.1 pg 27.0-32.0 [facility] Work Phone: Nucleated RBC/100 WBC (Bld) [Ratio] 0 % 0-5 [facility] Work Phone: MCHC Auto (RBC) [Mass/Vol]on 02-15-2022 MCHC (RBC) [Mass/Vol] 33.3 g/dL 32-36 [facility] Work Phone: Mucus LM Ql (Urine sed)on Mucus Ql (Urine sed) 0 SEEN /hpf [facility] Work Phone: Nitrite Test strip Ql (U)on 02-15-2022 Nitrite Ql (U) Negative Negative [facility] Work Phone: No Panel Informationon 02-15 Interpretation and review of laboratory results Normal [facility] Estimated Creatinine Clearance Calc 39.01 ml/min [facility] Work Phone: Estimated GFR (MDRD) Amer 87 mL/min >60 [facility] Work Phone: Comment on above: GFR Calc Estimated GFR (MDRD) Non-Af Amer 72 mL/min >60 [facility] Work Phone: Comment on above: Non- GFR Calc Troponin I High Sensitivity < 3 pg/mL 3.0-54.0 [facility] Work Phone: Comment on above: Please Note: New Sherry t Units and Gender Specific Reference Ranges. For more information see Policy Stat Procedure [place] High Sensitivity Troponin (TNIH) and attachments. PTINR-STROKEon 02-15-2022 INR Coag (PPP) [Relative time] 1.1 {INR} Normal 0.9-1.1 [facility] Comment on above: Performed By: #### P TISTR, PTT #### [facility] (DEFAULT) [address] [place] [id number] PT Coag (PPP) [Time] 14.0 s Normal 11.9-14.2 [facility] Comment on above: Performed By: #### P TISTR, PTT #### [facility] (DEFAULT) [address] [place] [id number] INR Coag (Bld) [Relative time] 1.1 {INR} [facility] Interpretation and review of laboratory results Normal [facility] PT Coag (PPP) [Time] 14.0 s [facility] PTTon 02-15-2022 aPTT Coag (Bld) [Time] 28.3 s Normal 24.0-34.3 [facility] Comment on above: Performed By: #### P TISTR, PTT #### [facility] (DEFAULT) [address] [place] [id number] aPTT Coag (PPP) [Time] 28.3 s [facility] Platelets bldon 02-15-2022 Platelets (Bld) [#/Vol] 306 10*3/uL 150-450 [facility] Work Phone: Protein Test strip Ql (U)on 02-15-2022 Protein Ql (U) Negative Negative [facility] Work Phone: Serum or plasma calcium alissa urement (mass/volume)on 02-15-2022 Calcium [Mass/Vol] 9.2 mg/dL 8.5-10.1 [facility] Work Phone: Serum or plasma creatinine m easurement (mass/volume)on 02-15-2022 Creatinine [Mass/Vol] 0.81 mg/dL 0.55-1.02 [facility] Work Phone: Comment on above: The validity of the calculated GFR & GFRAA in patients over 70 years has not been determined. Clinical correlation is essential. Serum or plasma urea nitroge n measurement (mass/volume)on 02-15-2022 Urea nitrogen [Mass/Vol] 23 mg/dL 7-18 [facility] Work Phone: Squamous epithelial cells de tection in urine sediment by light microscopyon 02-15-2022 Epithelial cells.squamous LM Ql (Urine sed) 0 SEEN /hpf 5-10 [facility] Work Phone: Thin prep Papanicolaou smear with manual screeningon 02-15-2022 Thin prep Papanicolaou smear with manual screening 7 5-15 [facility] Work Phone: Urine blood detectionon 02-05 RBC Ql (U) Negative Negative [facility] Work Phone: RBC Ql (U) 0 SEEN /hpf 0-5 [facility] Work Phone: Urine clarityon 02-15-2022 Clarity (U) Clear Clear [facility] Work Phone: Urine color determinationon 02-15-2022 Color (U) Yellow Yellow [facility] Work Phone: Urine glucose detectionon Glucose Ql (U) Normal mg/dl Normal [facility] Work Phone: Urine leukocyte esterase det ection by dipstickon 02-15-2022 Leukocyte esterase Test strip Ql (U) Negative Negative [facility] Work Phone: Urine pHon 02-15-2022 pH (U) 6.5 [pH] 5.0 - 8.0 [facility] Work Phone: Urine sediment bacteria coun t by microscopy (number/high power field)on 02-15-2022 Bacteria LM.HPF (Urine sed) [#/Area] 0 /[HPF] None Seen [facility] Work Phone: Urine specific gravity measu rementon 02-15-2022 Specific gravity (U) [Rel density] 1.010 1.002-1.03 0 [facility] Work Phone: Urobilinogen Auto test strip Ql (U)on 02-15-2022 Urobilinogen Ql (U) Normal mg/dl Normal [facility] Work Phone: No Panel Informationon 10-28 Miscellaneous Test See comment [facility] Work Phone: Comment on above: Sent directly to [facility] per ordering physician. XR Lumbar spine 3 Viewson IMPRESSION: Demineralization and marked osteoarthritis. Offshoring Manager: LORA Transcribe Date/Time: Aug 26 2020 9:06A Dictated by : HERNANDEZ ORR MD This examination was interpreted and the report reviewed and electronically signed by: HERNANDEZ ORR MD on Aug 26 2020 9:08AM [facility] DIVISION OF RADIOLOGY * * *Final [...] interspace. IMPRESSION IMPRESSION: Demineralization and marked osteoarthritis. Offshoring Manager: LORA Transcribe Date/Time: Aug 26 2020 9:06A Dictated by : HERNANDEZ ORR MD This examination was interpreted and the report reviewed and electronically signed by: HERNANDEZ ORR MD on Aug 26 2020 9:08AM EST [facility] Radiology Study observation (narrative) [facility] XR Lumbar spine 3 ViewsOrder ed By: [facility] Provider on 08-26-2020 [facility] Vital Signs Date Time Vital Sign Value Performing Clinician Facility 06-29-2025 10:06-0400 Body height 152.[address] Deepika Fabian MD Work Phone: [facility] 06-29-2025 10:06-0400 Body mass index (BMI) [Ratio] 21.1 kg/m2 Dr. Deepika Fabian MD Work Phone: [facility] 06-29-2025 10:06-0400 Body temperature 97.6 [degF] Dr. Deepika Fabian MD Work Phone: [facility] 06-29-2025 10:06-0400 Body weight 48.[address] Deepika Fabian MD Work Phone: [facility] 06-29-2025 10:06-0400 Diastolic blood pressure 80 mm[Hg] Dr. Deepika Fabian MD Work Phone: [facility] 06-29-2025 10:06-0400 Respiratory rate 16 /min Dr. Deepika Fabian MD Work Phone: [facility] 06-29-2025 10:06-0400 Systolic blood pressure 120 mm[Hg] Dr. Deepika Fabian MD Work Phone: [facility] 03-31-2025 08:09-0400 Body height 152.[address] Deepika Fabian MD Work Phone: [facility] 03-31-2025 08:09-0400 Body mass index (BMI) [Ratio] 20.9 kg/m2 Dr. Deepika Fabina MD Work Phone: [facility] 03-31-2025 08:09-0400 Body temperature 98 [degF] Dr. Deepika Fabian MD Work Phone: [facility] 03-31-2025 08:09-0400 Body weight 48.[address] Deepika Fabian MD Work Phone: [facility] 03-31-2025 08:09-0400 Diastolic blood pressure 78 mm[Hg] Dr. Deepika Fabian MD Work Phone: [facility] 03-31-2025 08:09-0400 Heart rate 66 /min Dr. Deepika Fabian MD Work Phone: [facility] 03-31-2025 08:09-0400 Respiratory rate 12 /min Dr. Deepika Fabian MD Work Phone: [facility] 03-31-2025 08:09-0400 SaO2% (BldA) [Mass fraction] 97 % Dr. Deepika Fabian MD Work Phone: [facility] 03-31-2025 08:09-0400 Systolic blood pressure 132 mm[Hg] Dr. Deepika Fabian MD Work Phone: [facility] 01-28-2025 13:56-0400 Body height 152.[address] Deepika Fabian MD Work Phone: [facility] 01-28-2025 13:56-0400 Body mass index (BMI) [Ratio] 21.2 kg/m2 Dr. Deepika Fabian MD Work Phone: [facility] 01-28-2025 13:56-0400 Body weight 49.[address] Deepika Fabian MD Work Phone: [facility] 01-28-2025 13:56-0400 Diastolic blood pressure 75 mm[Hg] Dr. Deepika Fabian MD Work Phone: [facility] 01-28-2025 13:56-0400 Heart rate 70 /min Dr. Deepika Fabian MD Work Phone: [facility] 01-28-2025 13:56-0400 Respiratory rate 18 /min Dr. Deepika Fabian MD Work Phone: [facility] 01-28-2025 13:56-0400 SaO2% (BldA) [Mass fraction] 97 % Dr. Deepika Fabian MD Work Phone: [facility] 01-28-2025 13:56-0400 Systolic blood pressure 121 mm[Hg] Dr. Deepika Fabian MD Work Phone: [facility] 01-28-2025 10:12-0400 Body mass index (BMI) [Ratio] 20.9 kg/m2 Dr. Deepika Fabian MD Work Phone: [facility] 01-28-2025 10:12-0400 Body temperature 97.9 [degF] Dr. Deepika Fabian MD Work Phone: [facility] 01-28-2025 10:12-0400 Body weight 48.[address] Deepika Fabian MD Work Phone: [facility] 01-28-2025 10:12-0400 Diastolic blood pressure 80 mm[Hg] Dr. Deepika Fabian MD Work Phone: [facility] 01-28-2025 10:12-0400 Heart rate 66 /min Dr. Deepika Fabian MD Work Phone: [facility] 01-28-2025 10:12-0400 Respiratory rate 16 /min Dr. Deepika Fabian MD Work Phone: [facility] 01-28-2025 10:12-0400 SaO2% (BldA) [Mass fraction] 97 % Dr. Deepika Fabian MD Work Phone: [facility] 01-28-2025 10:12-0400 Systolic blood pressure 120 mm[Hg] Dr. Deepika Fabian MD Work Phone: [facility] 11-13-2024 15:20-0500 Diastolic blood pressure 70 mm[Hg] Dr. Deepika Fabian MD Work Phone: [facility] 11-13-2024 15:20-0500 Systolic blood pressure 130 mm[Hg] Dr. Deepika Fabian MD Work Phone: [facility] 11-13-2024 15:18-0500 Body mass index (BMI) [Ratio] 21.4 kg/m2 Dr. Deepika Fabian MD Work Phone: [facility] 11-13-2024 15:18-0500 Body weight 49.[address] Deepika Fabian MD Work Phone: [facility] 11-13-2024 15:18-0500 Heart rate 69 /min Dr. Deepika Fabian MD Work Phone: [facility] 11-13-2024 15:18-0500 Respiratory rate 18 /min Dr. Deepika Fabian MD Work Phone: [facility] 11-13-2024 15:18-0500 SaO2% (BldA) [Mass fraction] 95 % Dr. Deepika Fabian MD Work Phone: [facility] 11-13-2024 09:58-0500 Body mass index (BMI) [Ratio] 21.7 kg/m2 Dr. Deepika Fabian MD Work Phone: [facility] 11-13-2024 09:58-0500 Body temperature 96.3 [degF] Dr. Deepika Fabian MD Work Phone: [facility] 11-13-2024 09:58-0500 Body weight 50.[address] Deepika Fabian MD Work Phone: [facility] 11-13-2024 09:58-0500 Diastolic blood pressure 58 mm[Hg] Dr. Deepika Fabian MD Work Phone: [facility] 11-13-2024 09:58-0500 Heart rate 60 /min Dr. Deepika Fabian MD Work Phone: [facility] 11-13-2024 09:58-0500 Respiratory rate 16 /min Dr. Deepika Fabian MD Work Phone: [facility] 11-13-2024 09:58-0500 Systolic blood pressure 104 mm[Hg] Dr. Deepika Fabian MD Work Phone: [facility] 09-29-2023 05:09-0500 Diastolic blood pressure 59 mm[Hg] Dr. Deepika Fabian Work Phone: [facility] 09-29-2023 05:09-0500 Heart rate 70 /min Dr. Deepika Fabina Work Phone: [facility] 09-29-2023 05:09-0500 Respiratory rate 20 /min Dr. Deepika Fabian Work Phone: [facility] 09-29-2023 05:09-0500 SaO2% (BldA) [Mass fraction] 97 % Dr. Deepika Fabian Work Phone: [facility] 09-29-2023 05:09-0500 Systolic blood pressure 146 mm[Hg] Dr. Deepika Fabian Work Phone: [facility] 09-29-2023 01:36-0500 Body height 154.[address] Deepika Fabian Work Phone: [facility] 09-29-2023 01:36-0500 Body mass index (BMI) [Ratio] 20.2 kg/m2 Dr. Deepika Fabian Work Phone: [facility] 09-29-2023 01:36-0500 Body temperature 98 [degF] Dr. Deepika Fabian Work Phone: [facility] 09-29-2023 01:36-0500 Body weight 48.[address] Deepika Fabian Work Phone: [facility] 09-13-2023 11:03-0500 Body temperature 97.9 [degF] Dr. Deepika Fabian Work Phone: [facility] 09-13-2023 11:03-0500 Diastolic blood pressure 75 mm[Hg] Dr. Deepika Fabian Work Phone: [facility] 09-13-2023 11:03-0500 Heart rate 77 /min Dr. Deepika Fabian Work Phone: [facility] 09-13-2023 11:03-0500 Respiratory rate 12 /min Dr. Deepika Fabian Work Phone: [facility] 09-13-2023 11:03-0500 SaO2% (BldA) [Mass fraction] 93 % Dr. Deepika Fabian Work Phone: [facility] 09-13-2023 11:03-0500 Systolic blood pressure 125 mm[Hg] Dr. Deepika Fabian Work Phone: [facility] 07-31-2023 09:57-0400 Body mass index (BMI) [Ratio] 20.7 kg/m2 Dr. Deepika Fabian Work Phone: [facility] 07-31-2023 09:57-0400 Body temperature 97.8 [degF] Dr. Deepika Fabian Work Phone: [facility] 07-31-2023 09:57-0400 Body weight 49.[address] Deepika Fabian Work Phone: [facility] 07-31-2023 09:57-0400 Diastolic blood pressure 60 mm[Hg] Dr. Deepika Fabian Work Phone: [facility] 07-31-2023 09:57-0400 Heart rate 46 /min Dr. Deepika Fabian Work Phone: [facility] 07-31-2023 09:57-0400 Respiratory rate 16 /min Dr. Deepika Fabian Work Phone: [facility] 07-31-2023 09:57-0400 SaO2% (BldA) [Mass fraction] 92 % Dr. Deepika Fabian Work Phone: [facility] 07-31-2023 09:57-0400 Systolic blood pressure 108 mm[Hg] Dr. Deepika Fabian Work Phone: [facility] 07-10-2023 09:07-0400 Body mass index (BMI) [Ratio] 20.4 kg/m2 Dr. Deepika Fabian Work Phone: [facility] 07-10-2023 09:07-0400 Body temperature 96.1 [degF] Dr. Deepika Fabian Work Phone: [facility] 07-10-2023 09:07-0400 Body weight 49.[address] Deepika Fabian Work Phone: [facility] 07-10-2023 09:07-0400 Diastolic blood pressure 72 mm[Hg] Dr. Deepika Fabian Work Phone: [facility] 07-10-2023 09:07-0400 Heart rate 80 /min Dr. Deepika Fabian Work Phone: [facility] 07-10-2023 09:07-0400 Respiratory rate 18 /min Dr. Deepika Fabian Work Phone: [facility] 07-10-2023 09:07-0400 SaO2% (BldA) [Mass fraction] 99 % Dr. Deepika Fabian Work Phone: [facility] 07-10-2023 09:07-0400 Systolic blood pressure 124 mm[Hg] Dr. Deepika Fabian Work Phone: [facility] 06-27-2023 11:20-0400 Body temperature 97.8 [degF] Dr. Deepika Fabian Work Phone: [facility] 06-27-2023 11:20-0400 Diastolic blood pressure 71 mm[Hg] Dr. Deepika Fabian Work Phone: [facility] 06-27-2023 11:20-0400 Heart rate 62 /min Dr. Deepika Fabian Work Phone: [facility] 06-27-2023 11:20-0400 Respiratory rate 14 /min Dr. Deepika Fabian Work Phone: [facility] 06-27-2023 11:20-0400 SaO2% (BldA) [Mass fraction] 94 % Dr. Deepika Fabian Work Phone: [facility] 06-27-2023 11:20-0400 Systolic blood pressure 150 mm[Hg] Dr. Deepika Fabian Work Phone: [facility] 04-17-2023 12:56-0400 Body height 154.[address] Deepika Fabian Work Phone: [facility] 04-17-2023 12:56-0400 Body mass index (BMI) [Ratio] 20.2 kg/m2 Dr. Deepika Fabian Work Phone: [facility] 04-17-2023 12:56-0400 Body temperature 96.4 [degF] Dr. Deepika Fabian Work Phone: [facility] 04-17-2023 12:56-0400 Body weight 48.[address] Deepika Fabian Work Phone: [facility] 04-17-2023 12:56-0400 Diastolic blood pressure 80 mm[Hg] Dr. Deepika Fabian Work Phone: [facility] 04-17-2023 12:56-0400 Heart rate 70 /min Dr. Deepika Fabian Work Phone: [facility] 04-17-2023 12:56-0400 Respiratory rate 18 /min Dr. Deepika Fabian Work Phone: [facility] 04-17-2023 12:56-0400 SaO2% (BldA) [Mass fraction] 95 % Dr. Deepika Fabian Work Phone: [facility] 04-17-2023 12:56-0400 Systolic blood pressure 122 mm[Hg] Dr. Deepika Fabian Work Phone: [facility] 03-15-2023 15:57-0400 Diastolic blood pressure 84 mm[Hg] Dr. Deepika Fabian Work Phone: [facility] 03-15-2023 15:57-0400 Systolic blood pressure 144 mm[Hg] Dr. Deepika Fabian Work Phone: [facility] 03-15-2023 15:02-0400 Body height 154.[address] Deepika Fabian Work Phone: [facility] 03-15-2023 15:02-0400 Body mass index (BMI) [Ratio] 20.9 kg/m2 Dr. Deepika Fabian Work Phone: [facility] 03-15-2023 15:02-0400 Body temperature 97.5 [degF] Dr. eDepika Fabian Work Phone: [facility] 03-15-2023 15:02-0400 Body weight 50.[address] Deepika Fabian Work Phone: [facility] 03-15-2023 15:02-0400 Heart rate 72 /min Dr. Deepika Fabian Work Phone: [facility] 03-15-2023 15:02-0400 Respiratory rate 14 /min Dr. Deepika Fabian Work Phone: [facility] 03-15-2023 15:02-0400 SaO2% (BldA) [Mass fraction] 96 % Dr. Deepika Fabian Work Phone: [facility] 03-01-2023 13:50-0400 Body mass index (BMI) [Ratio] 20.7 kg/m2 Dr. Deepika Fabian Work Phone: [facility] 03-01-2023 13:50-0400 Body temperature 97.5 [degF] Dr. Deepika Fabian Work Phone: [facility] 03-01-2023 13:50-0400 Body weight 49.[address] Deepika Fabian Work Phone: [facility] 03-01-2023 13:50-0400 Diastolic blood pressure 78 mm[Hg] Dr. Deepika Fabian Work Phone: [facility] 03-01-2023 13:50-0400 Heart rate 90 /min Dr. Deepika Fabian Work Phone: [facility] 03-01-2023 13:50-0400 Respiratory rate 16 /min Dr. Deepika Fabian Work Phone: [facility] 03-01-2023 13:50-0400 SaO2% (BldA) [Mass fraction] 92 % Dr. Deepika Fabian Work Phone: [facility] 03-01-2023 13:50-0400 Systolic blood pressure 126 mm[Hg] Dr. Deepika Fabian Work Phone: [facility] 02-13-2023 15:14-0400 Body temperature 98.4 [degF] Dr. Deepika Fabian Work Phone: [facility] 02-13-2023 15:14-0400 Diastolic blood pressure 98 mm[Hg] Dr. Deepika Fabian Work Phone: [facility] 02-13-2023 15:14-0400 Heart rate 96 /min Dr. Deepika Fabian Work Phone: [facility] 02-13-2023 15:14-0400 Respiratory rate 18 /min Dr. Deepika Fabian Work Phone: [facility] 02-13-2023 15:14-0400 SaO2% (BldA) [Mass fraction] 94 % Dr. Deepika Fabian Work Phone: [facility] 02-13-2023 15:14-0400 Systolic blood pressure 150 mm[Hg] Dr. Deepika Fabian Work Phone: [facility] 02-12-2023 14:12-0400 Inhaled oxygen flow rate 2 L/min Dr. Deepika Fabian Work Phone: [facility] 02-09-2023 11:44-0400 Body height 154.[address] Deepika Fabian Work Phone: [facility] 02-09-2023 11:44-0400 Body weight 51.[address] Deepika Fabian Work Phone: [facility] 02-08-2023 14:03-0400 Body mass index (BMI) [Ratio] 21.4 kg/m2 Dr. Deepika Fabian Work Phone: [facility] 01-01-2023 11:34-0400 Body mass index (BMI) [Ratio] 20.2 kg/m2 Dr. Deepika Fabian Work Phone: [facility] 01-01-2023 11:34-0400 Body temperature 97.4 [degF] Dr. Deepika Fabian Work Phone: [facility] 01-01-2023 11:34-0400 Body weight 50.[address] Deepika Fabian Work Phone: [facility] 01-01-2023 11:34-0400 Diastolic blood pressure 82 mm[Hg] Dr. Deepika Fabian Work Phone: [facility] 01-01-2023 11:34-0400 Heart rate 77 /min Dr. Deepika Fabian Work Phone: [facility] 01-01-2023 11:34-0400 Respiratory rate 16 /min Dr. Deepika Fabian Work Phone: [facility] 01-01-2023 11:34-0400 SaO2% (BldA) [Mass fraction] 96 % Dr. Deepika Fabian Work Phone: [facility] 01-01-2023 11:34-0400 Systolic blood pressure 144 mm[Hg] Dr. Deepika Fabian Work Phone: [facility] 11-10-2022 16:48-0500 Diastolic blood pressure 68 mm[Hg] Dr. Vamsi Mota Work Phone: [facility] 11-10-2022 16:48-0500 Heart rate 83 /min Dr. Vamsi Mota Work Phone: [facility] 11-10-2022 16:48-0500 Respiratory rate 17 /min Dr. Vamsi Mota Work Phone: [facility] 11-10-2022 16:48-0500 Systolic blood pressure 119 mm[Hg] Dr. Vamsi Mota Work Phone: [facility] 11-10-2022 12:39-0500 SaO2% (BldA) [Mass fraction] 96 % Dr. Vamsi Mota Work Phone: [facility] 11-10-2022 10:40-0500 Body height 154.[address] Vamsi Mota Work Phone: [facility] 11-10-2022 10:40-0500 Body mass index (BMI) [Ratio] 21.7 kg/m2 Dr. Vamsi Mota Work Phone: [facility] 11-10-2022 10:40-0500 Body temperature 97.1 [degF] Dr. Vamsi Mota Work Phone: [facility] 11-10-2022 10:40-0500 Body weight 52.[address] Vamsi Mota Work Phone: [facility] 11-04-2022 11:00-0500 Body height 154.[address] Deepika Fabian Work Phone: [facility] 11-04-2022 11:00-0500 Body mass index (BMI) [Ratio] 21.7 kg/m2 Dr. Deepika Fabian Work Phone: [facility] 11-04-2022 11:00-0500 Body temperature 98.2 [degF] Dr. Deepika Fabian Work Phone: [facility] 11-04-2022 11:00-0500 Body weight 52.[address] Deepika Fabian Work Phone: [facility] 11-04-2022 11:00-0500 Diastolic blood pressure 57 mm[Hg] Dr. Deepika Fabian Work Phone: [facility] 11-04-2022 11:00-0500 Heart rate 83 /min Dr. Deepika Fabian Work Phone: [facility] 11-04-2022 11:00-0500 Respiratory rate 17 /min Dr. Deepika Fabian Work Phone: [facility] 11-04-2022 11:00-0500 SaO2% (BldA) [Mass fraction] 98 % Dr. Deepika Fabian Work Phone: [facility] 11-04-2022 11:00-0500 Systolic blood pressure 105 mm[Hg] Dr. Deepika Fabian Work Phone: [facility] 11-01-2022 18:16-0500 Diastolic blood pressure 52 mm[Hg] Dr. Deepika aFbian Work Phone: [facility] 11-01-2022 18:16-0500 Heart rate 81 /min Dr. Deepika Fabian Work Phone: [facility] 11-01-2022 18:16-0500 Respiratory rate 20 /min Dr. Deepika Fabian Work Phone: [facility] 11-01-2022 18:16-0500 SaO2% (BldA) [Mass fraction] 97 % Dr. Deepika Fabian Work Phone: [facility] 11-01-2022 18:16-0500 Systolic blood pressure 117 mm[Hg] Dr. Deepika Fabian Work Phone: [facility] 11-01-2022 14:19-0500 Body height 157.[address] Deepika Fabian Work Phone: [facility] 11-01-2022 14:19-0500 Body mass index (BMI) [Ratio] 19 kg/m2 Dr. Deepika Fabian Work Phone: [facility] 11-01-2022 14:19-0500 Body temperature 97.7 [degF] Dr. Deepika Fabian Work Phone: [facility] 11-01-2022 14:19-0500 Body weight 47.[address] Deepika Fabian Work Phone: [facility] 11-01-2022 08:33-0500 Body temperature 96.8 [degF] Dr. Deepika Fabian Work Phone: [facility] 11-01-2022 08:33-0500 Body weight 49.[address] Deepika Fabian Work Phone: [facility] 11-01-2022 08:33-0500 Diastolic blood pressure 66 mm[Hg] Dr. Deepika Fabian Work Phone: [facility] 11-01-2022 08:33-0500 Heart rate 88 /min Dr. Deepika Fabian Work Phone: [facility] 11-01-2022 08:33-0500 Respiratory rate 18 /min Dr. Deepika Fabian Work Phone: [facility] 11-01-2022 08:33-0500 SaO2% (BldA) [Mass fraction] 100 % Dr. Deepika Fabian Work Phone: [facility] 11-01-2022 08:33-0500 Systolic blood pressure 104 mm[Hg] Dr. Deepika Fabian Work Phone: [facility] 08-29-2022 16:26-0500 Body temperature 97 [degF] Dr. Deepika Fabian Work Phone: [facility] 08-29-2022 16:26-0500 Body weight 52.[address] Deepika Fabian Work Phone: [facility] 08-29-2022 16:26-0500 Diastolic blood pressure 76 mm[Hg] Dr. Deepika Fabian Work Phone: [facility] 08-29-2022 16:26-0500 Heart rate 56 /min Dr. Deepika Fabian Work Phone: [facility] 08-29-2022 16:26-0500 Respiratory rate 18 /min Dr. Deepika Fabian Work Phone: [facility] 08-29-2022 16:26-0500 SaO2% (BldA) [Mass fraction] 99 % Dr. Deepika Fabian Work Phone: [facility] 08-29-2022 16:26-0500 Systolic blood pressure 116 mm[Hg] Dr. Deepika Fabian Work Phone: [facility] 08-23-2022 13:20-0500 Body mass index (BMI) [Ratio] 20.2 kg/m2 Dr. Deepika Fabian Work Phone: [facility] 08-23-2022 13:20-0500 Body weight 51.[address] Deepika Fabian Work Phone: [facility] 08-23-2022 13:20-0500 Diastolic blood pressure 68 mm[Hg] Dr. Deepika Fabian Work Phone: [facility] 08-23-2022 13:20-0500 Heart rate 82 /min Dr. Deepika Fabian Work Phone: [facility] 08-23-2022 13:20-0500 Respiratory rate 16 /min Dr. Deepika Fabian Work Phone: [facility] 08-23-2022 13:20-0500 Systolic blood pressure 144 mm[Hg] Dr. Deepika Fabian Work Phone: [facility] 07-12-2022 16:28-0400 Body mass index (BMI) [Ratio] 20.3 kg/m2 Dr. Deepika Fabian Work Phone: [facility] 07-12-2022 16:28-0400 Body temperature 98.1 [degF] Dr. Deepika Fabian Work Phone: [facility] 07-12-2022 16:28-0400 Body weight 52.[address] Deepika Fabian Work Phone: [facility] 07-12-2022 16:28-0400 Diastolic blood pressure 68 mm[Hg] Dr. Deepika Fabian Work Phone: [facility] 07-12-2022 16:28-0400 Heart rate 83 /min Dr. Deepika Fabian Work Phone: [facility] 07-12-2022 16:28-0400 Respiratory rate 14 /min Dr. Deepika Fabian Work Phone: [facility] 07-12-2022 16:28-0400 SaO2% (BldA) [Mass fraction] 99 % Dr. Deepika Fabian Work Phone: [facility] 07-12-2022 16:28-0400 Systolic blood pressure 112 mm[Hg] Dr. Deepika Fabian Work Phone: [facility] 07-07-2022 11:19-0400 Diastolic blood pressure 71 mm[Hg] Dr. Deepika Fabian Work Phone: [facility] 07-07-2022 11:19-0400 Heart rate 86 /min Dr. Deepika Fabian Work Phone: [facility] 07-07-2022 11:19-0400 Respiratory rate 17 /min Dr. Deepika Fabian Work Phone: [facility] 07-07-2022 11:19-0400 SaO2% (BldA) [Mass fraction] 95 % Dr. Deepika Fabian Work Phone: [facility] 07-07-2022 11:19-0400 Systolic blood pressure 127 mm[Hg] Dr. Deepika Fabian Work Phone: [facility] 07-07-2022 08:18-0400 Body temperature 97.9 [degF] Dr. Deepika Fabian Work Phone: [facility] 07-07-2022 08:15-0400 Body mass index (BMI) [Ratio] 21.3 kg/m2 Dr. Deepika Fabian Work Phone: [facility] 07-07-2022 08:15-0400 Body weight 54.[address] Deepika Fabian Work Phone: [facility] 07-05-2022 15:03-0400 Body mass index (BMI) [Ratio] 22.8 kg/m2 Dr. Deepika Fabian Work Phone: [facility] 07-05-2022 15:03-0400 Body temperature 99 [degF] Dr. Deepika Fabian Work Phone: [facility] 07-05-2022 15:03-0400 Body weight 53.[address] Deepika Fabian Work Phone: [facility] 07-05-2022 15:03-0400 Diastolic blood pressure 90 mm[Hg] Dr. Deepika Fabian Work Phone: [facility] 07-05-2022 15:03-0400 Heart rate 65 /min Dr. Deepika Fabian Work Phone: [facility] 07-05-2022 15:03-0400 Respiratory rate 18 /min Dr. Deepika Fabian Work Phone: [facility] 07-05-2022 15:03-0400 SaO2% (BldA) [Mass fraction] 95 % Dr. Deepika Fabian Work Phone: [facility] 07-05-2022 15:03-0400 Systolic blood pressure 162 mm[Hg] Dr. Deepika Fabian Work Phone: [facility] 06-08-2022 08:46-0400 Body height 152.[address] Vamsi Mota Work Phone: [facility] Work Phone: 06-08-2022 08:46-0400 Body mass index (BMI) [Ratio] 22.4 kg/m2 Dr. Vamsi Mota Work Phone: [facility] Work Phone: 06-08-2022 08:46-0400 Body temperature 98.4 [degF] Dr. Vamsi Mota Work Phone: [facility] Work Phone: 06-08-2022 08:46-0400 Body weight 52.[address] Vamsi Mota Work Phone: [facility] Work Phone: 06-08-2022 08:46-0400 Diastolic blood pressure 76 mm[Hg] Dr. Vamsi Mota Work Phone: [facility] Work Phone: 06-08-2022 08:46-0400 Heart rate 68 /min Dr. Vamsi Mota Work Phone: [facility] Work Phone: 06-08-2022 08:46-0400 Respiratory rate 14 /min Dr. Vamsi Mota Work Phone: [facility] Work Phone: 06-08-2022 08:46-0400 SaO2% (BldA) [Mass fraction] 95 % Dr. Vamsi Mota Work Phone: [facility] Work Phone: 06-08-2022 08:46-0400 Systolic blood pressure 130 mm[Hg] Dr. Vamsi Mota Work Phone: [facility] Work Phone: 05-25-2022 16:31-0400 Body mass index (BMI) [Ratio] 22.8 kg/m2 Dr. Vamsi Mota Work Phone: [facility] Work Phone: 05-25-2022 16:31-0400 Body temperature 98.4 [degF] Dr. Vamsi Mota Work Phone: [facility] Work Phone: 05-25-2022 16:31-0400 Body weight 53.[address] Vamsi Mota Work Phone: [facility] Work Phone: 05-25-2022 16:31-0400 Diastolic blood pressure 74 mm[Hg] Dr. Vamsi Mota Work Phone: [facility] Work Phone: 05-25-2022 16:31-0400 Heart rate 68 /min Dr. Vamsi Mota Work Phone: [facility] Work Phone: 05-25-2022 16:31-0400 Respiratory rate 14 /min Dr. Vamsi Mota Work Phone: [facility] Work Phone: 05-25-2022 16:31-0400 SaO2% (BldA) [Mass fraction] 99 % Dr. Vamsi Mota Work Phone: [facility] Work Phone: 05-25-2022 16:31-0400 Systolic blood pressure 136 mm[Hg] Dr. Vamsi Mota Work Phone: [facility] Work Phone: 05-04-2022 15:41-0400 Body height 152.[address] Vamsi Mota Work Phone: [facility] Work Phone: 05-04-2022 15:41-0400 Body mass index (BMI) [Ratio] 22 kg/m2 Dr. Vamsi Mota Work Phone: [facility] Work Phone: 05-04-2022 15:41-0400 Body temperature 98.6 [degF] Dr. Vamsi Mota Work Phone: [facility] Work Phone: 05-04-2022 15:41-0400 Body weight 51.[address] Vamsi Mota Work Phone: [facility] Work Phone: 05-04-2022 15:41-0400 Diastolic blood pressure 76 mm[Hg] Dr. Vamsi Mota Work Phone: [facility] Work Phone: 05-04-2022 15:41-0400 Heart rate 81 /min Dr. Vamsi Mota Work Phone: [facility] Work Phone: 05-04-2022 15:41-0400 Respiratory rate 14 /min Dr. Vamsi Mota Work Phone: [facility] Work Phone: 05-04-2022 15:41-0400 SaO2% (BldA) [Mass fraction] 97 % Dr. Vamsi Mota Work Phone: [facility] Work Phone: 05-04-2022 15:41-0400 Systolic blood pressure 136 mm[Hg] Dr. Vamsi Mota Work Phone: [facility] Work Phone: 03-02-2022 13:25-0400 Body height 152.[address] Vamsi Mota Work Phone: [facility] Work Phone: 03-02-2022 13:25-0400 Body mass index (BMI) [Ratio] 23 kg/m2 Dr. Vamsi Mota Work Phone: [facility] Work Phone: 03-02-2022 13:25-0400 Body temperature 97.9 [degF] Dr. Vamsi Mota Work Phone: [facility] Work Phone: 03-02-2022 13:25-0400 Body weight 53.[address] Vamsi Mota Work Phone: [facility] Work Phone: 03-02-2022 13:25-0400 Diastolic blood pressure 80 mm[Hg] Dr. Vamsi Mota Work Phone: [facility] Work Phone: 03-02-2022 13:25-0400 Heart rate 81 /min Dr. Vamsi Mota Work Phone: [facility] Work Phone: 03-02-2022 13:25-0400 Respiratory rate 16 /min Dr. Vamsi Mota Work Phone: [facility] Work Phone: 03-02-2022 13:25-0400 SaO2% (BldA) [Mass fraction] 99 % Dr. Vamsi Mota Work Phone: [facility] Work Phone: 03-02-2022 13:25-0400 Systolic blood pressure 118 mm[Hg] Dr. Vamsi Mota Work Phone: [facility] Work Phone: 02-24-2022 11:00-0400 Body height 152.4 cm Harris Mota MD Work Phone: [facility] 02-24-2022 11:00-0400 Body weight 52.48 kg Harris Mota MD Work Phone: [facility] 02-24-2022 11:00-0400 Diastolic blood pressure 68 mm[Hg] Harris Mota MD Work Phone: [facility] 02-24-2022 11:00-0400 Heart rate 69 /min Harris Mota MD Work Phone: [facility] 02-24-2022 11:00-0400 Systolic blood pressure 134 mm[Hg] Harris Mota MD Work Phone: [facility] 02-22-2022 11:37-0400 Body mass index (BMI) [Ratio] 21.7 kg/m2 Dr. Vamsi Mota Work Phone: [facility] Work Phone: 02-22-2022 11:37-0400 Body weight 52.[address] Vamsi Mota Work Phone: [facility] Work Phone: 02-22-2022 11:37-0400 Diastolic blood pressure 67 mm[Hg] Dr. Vamsi Mota Work Phone: [facility] Work Phone: 02-22-2022 11:37-0400 Heart rate 60 /min Dr. Vamsi Mota Work Phone: [facility] Work Phone: 02-22-2022 11:37-0400 Respiratory rate 16 /min Dr. Vamsi Mota Work Phone: [facility] Work Phone: 02-22-2022 11:37-0400 SaO2% (BldA) [Mass fraction] 100 % Dr. Vamsi Mota Work Phone: [facility] Work Phone: 02-22-2022 11:37-0400 Systolic blood pressure 135 mm[Hg] Dr. Vamsi Mota Work Phone: [facility] Work Phone: 02-17-2022 11:20-0400 Body temperature 97.81 [degF] Sanju White MD Work Phone: [facility] 02-17-2022 11:20-0400 Diastolic blood pressure 64 mm[Hg] Sanju White MD Work Phone: [facility] 02-17-2022 11:20-0400 Heart rate 59 /min Sanju White MD Work Phone: [facility] 02-17-2022 11:20-0400 Respiratory rate 16 /min Sanju White MD Work Phone: [facility] 02-17-2022 11:20-0400 SaO2% (BldA) [Mass fraction] 96 % Sanju White MD Work Phone: [facility] 02-17-2022 11:20-0400 Systolic blood pressure 144 mm[Hg] Sanju White MD Work Phone: [phone] [address] 02-17-2022 08:51-0400 Body height 154.9 cm Sanju White MD Work Phone: [phone] [address] 02-17-2022 08:51-0400 Body mass index (BMI) [Ratio] 21.96 kg/m2 Sanju White MD Work Phone: [phone] [address] 02-17-2022 08:51-0400 Body weight 52.7 kg Sanju White MD Work Phone: [phone] [address] 02-15-2022 18:00-0400 Diastolic blood pressure 85 mm[Hg] [facility] Work Phone: 02-15-2022 18:00-0400 Heart rate 62 /min [facility] Work Phone: 02-15-2022 18:00-0400 Respiratory rate 18 /min [facility] Work Phone: 02-15-2022 18:00-0400 SaO2% (BldA) [Mass fraction] 98 % [facility] Work Phone: 02-15-2022 18:00-0400 Systolic blood pressure 147 mm[Hg] [facility] Work Phone: 02-15-2022 15:40-0400 Body height 154.99 cm [facility] Work Phone: 02-15-2022 15:40-0400 Body mass index (BMI) [Ratio] 23.6 kg/m2 [facility] Work Phone: 02-15-2022 15:40-0400 Body weight 56.6 kg [facility] Work Phone: 02-15-2022 15:26-0400 Body temperature 97.8 [degF] [facility] Work Phone: Encounters Encounter Date Encounter Type Care Provider Facility Start: 06-29-2025 End: 06-29-[address] Deepika Fabian MD -[facility] Work Phone: Start: 06-29-2025 End: 06-29-2025 ambulatory Deepika Fabian Facility:[facility] Start: 04-07-2025 Non-patient / Non-visit Dr. Yana Fulton MD -[facility] Work Phone: Start: 03-31-2025 End: 03-31-[address] Deepika Fabian MD Work Phone: -[facility] Start: 03-31-2025 End: 03-31-[address] Deepika Fabian MD -[facility] Start: 03-31-2025 End: 03-31-[address] Deepika Fabian MD -[facility] Work Phone: Start: 03-31-2025 End: 03-31-[address] Deepika Fabian MD Work Phone: [facility] Work Phone: Start: 03-31-2025 End: 03-31-2025 ambulatory Deepika Fabian Facility:[facility] Start: 01-28-2025 End: 01-28-2025 Patient encounter procedure Emma Pitts CA -[facility] Work Phone: Start: 01-28-2025 End: 01-28-2025 ambulatory Emma Pitts Facility:[facility] Start: 01-28-2025 End: 01-28-[address] Deepika Fabian MD -[facility] Work Phone: Start: 01-28-2025 End: 01-28-[address] Deepika Fabian MD Work Phone: [facility] Work Phone: Start: 01-28-2025 End: 01-28-2025 ambulatory Deepika [employer] Facility:[facility] Start: 11-13-2024 End: 11-13-2024 Patient encounter procedure Emma Pitts CA -[facility] Work Phone: Start: 11-13-2024 End: 11-13-2024 ambulatory Emma Pitts Facility:[facility] Start: 11-13-2024 End: 11-13-[address] Deepika Fabian MD -[facility] Work Phone: Start: 11-13-2024 End: 11-13-2024 ambulatory Deepika Fabian Facility:[facility] Start: 08-05-2024 End: 08-05-2024 ambulatory Deepika [employer] Facility:[facility] Start: 08-05-2024 End: 08-05-2024 ambulatory Deepika Caren Facility:[facility] Start: 07-28-2024 End: 07-28-2024 ambulatory Deepika [employer] Facility:[facility] Start: 07-10-2024 End: 07-10-2024 ambulatory Deepika [employer] Facility:[facility] Start: 09-29-2023 End: 09-29-2023 Emergency department patient visit Dr. Deeipka Fabian Work Phone: [facility] Work Phone: Start: 09-13-2023 End: 09-13-[address] Deepika Fabian Work Phone: [facility] Work Phone: Start: 07-31-2023 End: 07-31-[address] Deepika Fabian Work Phone: [facility] Work Phone: Start: 07-10-2023 End: 07-10-[address] Deepika Fabian Work Phone: [facility] Internal [facility] Work Phone: Start: 06-27-2023 End: 06-27-[address] Deepika Fabian Work Phone: [facility]-Laboratory, Specimen Work Phone: Start: 06-27-2023 End: 06-27-[address] Deepika Fabian Work Phone: [facility] Work Phone: Start: 04-24-2023 End: 04-24-[address] Deepika Fabian Work Phone: [facility] Work Phone: Start: 04-24-2023 End: 04-24-[address] Deepika Fabian Work Phone: [facility] Work Phone: Start: 04-17-2023 End: 04-17-[address] Deepika Fabian Work Phone: [facility] Work Phone: Start: 04-04-2023 ambulatory Grace Ryder [facility] Comment on above: Population Health [facility] Out[facility] Start: 03-29-2023 End: 03-29-[address] Deepika Fabian Work Phone: [facility] Work Phone: Start: 03-15-2023 End: 03-15-[address] Deepika Fabian Work Phone: [facility] Start: 03-01-2023 End: 03-01-[address] Deepika Fabian Work Phone: [facility] Work Phone: Start: 03-01-2023 End: 03-01-[address] Deepika Fabian Work Phone: [facility]-Laboratory, [place] Start: 03-01-2023 End: 03-01-[address] Deepika Fabian Work Phone: [facility] Start: 03-01-[address] Deepika Fabian Work Phone: [facility] Start: 02-22-2023 End: 02-22-[address] Deepika Fabian Work Phone: [facility] Work Phone: Start: 02-20-2023 End: 02-20-[address] Deepika Fabian Work Phone: [facility] Work Phone: Start: 02-15-[address] Deepika Fabian Work Phone: [facility] Start: 02-14-2023 End: 02-14-[address] Deepika Fabian Work Phone: [facility] Work Phone: Start: 02-13-2023 Non-patient / Non-visit Dr. Deepika Fabian Work Phone: [facility] Start: 02-12-2023 Non-patient / Non-visit Dr. Deepika Fabian Work Phone: [facility] Start: 02-11-2023 Non-patient / Non-visit Dr. Deepika Fabian Work Phone: [facility] Start: 02-10-2023 End: 02-10-2023 Non-patient / Non-visit Dr. Deepika Fabian Work Phone: [facility] Start: 02-10-2023 Non-patient / Non-visit Dr. Deepika Fabian Work Phone: [facility] Start: 02-09-2023 Non-patient / Non-visit Dr. Deepika Fabian Work Phone: [facility] Start: 02-08-2023 Non-patient / Non-visit Dr. Deepika Fabian Work Phone: [facility] Start: 02-08-2023 End: 02-13-2023 Evaluation and management of inpatient Dr. Deepika Fabian Work Phone: [facility]-Progressive Care Unit Start: 01-01-2023 End: 01-01-[address] Deepika Fabian Work Phone: [facility] Start: 12-11-2022 End: 12-11-[address] Vamsi Mota Work Phone: [facility] Work Phone: Start: 12-11-2022 End: 12-11-[address] Vamsi Mota Work Phone: [facility]-Laboratory, Specimen Start: 12-08-2022 End: 12-08-[address] Vamsi Mota Work Phone: [facility] Start: 12-08-2022 End: 12-08-[address] Vamsi Mota Work Phone: [facility] Start: 11-13-2022 End: 11-13-[address] Vamsi Mota Work Phone: [facility] Work Phone: Start: 11-13-2022 End: 11-13-[address] Vamsi Mota Work Phone: [facility]-Laboratory, [place] Start: 11-13-2022 Non-patient / Non-visit Dr. Vamsi Mota Work Phone: [facility] Start: 11-10-2022 End: 11-10-2022 Emergency department patient [facility] Start: 11-04-2022 End: 11-04-2022 Emergency department patient [facility] Start: 11-01-2022 End: 11-01-2022 Emergency department patient [facility] Start: 11-01-2022 End: 11-01-[address] Deepika Fabian Work Phone: [facility] Rad[facility] Start: 11-01-2022 End: 11-01-[address] Deepika Fabian Work Phone: [facility] Start: 08-29-2022 End: 08-29-[address] Deepika Fabian Work Phone: [facility] Start: 08-23-2022 End: 08-23-[address] Deepika Fabian Work Phone: [facility] Start: 07-19-2022 Refill Harris hutchinson MD Work Phone: Family Practice Comment on above: Refill Request Start: 07-12-2022 End: 07-12-[address] Deepika Fabian Work Phone: [facility] Start: 07-07-2022 End: 07-07-2022 Emergency department patient visit Dr. Deepika Fabian Work Phone: [facility]-Emergency Department Start: 07-05-2022 End: 07-05-[address] Deepika Fabian Work Phone: [facility] Start: 06-22-2022 End: 06-22-[address] Vamsi Mota Work Phone: [facility] Work Phone: Start: 06-22-2022 End: 06-22-[address] Vamsi Mota Work Phone: [facility] Start: 06-08-2022 End: 06-08-[address] Vamsi Mota Work Phone: [facility] Work Phone: Start: 06-08-2022 End: 06-08-[address] Vamsi Mota Work Phone: [facility] Internal [facility] Start: 05-25-2022 End: 05-25-[address] Vamsi Mota Work Phone: [facility] Start: 05-10-2022 Telephone encounter Harris Mota MD Work Phone: [facility] Comment on above: Outside Lab Results ([facility]) Start: 05-08-2022 Telephone encounter Harris Mota MD Work Phone: [facility] Comment on above: Outside Lab Results ([facility]) Start: 05-08-2022 End: 05-08-[address] Vamsi Mota Work Phone: [facility], [facility] Start: 05-04-2022 End: 05-04-[address] Vamsi Mota Work Phone: [facility] Start: 04-07-2022 Telephone encounter Harris Mota MD Work Phone: Family Practice Comment on above: Received Outside Med ical Records ([facility] discharge summary site controller 04/06/2022) Start: 04-05-2022 End: 04-05-[address] Vamsi Mota Work Phone: [facility]-Speech Therapy Start: 03-20-2022 Telephone encounter Harris Mota MD Work Phone: [facility] Practice Comment on above: Received Outside Med ical Records ([facility] neurology) Start: 03-16-2022 ambulatory DEBBIEGAEL MARTE [facility] Start: 03-07-2022 Telephone encounter Harris Mota MD Work Phone: Family Practice Comment on above: Orders (reviewed and signed by PCP and faxed back to [facility] occupational therapy. ) Start: 03-02-2022 Telephone encounter Harris Mota MD Work Phone: Family Practice Comment on above: Received Outside Med ical Records ([facility] rehab services) Start: 03-02-2022 End: 03-02-[address] Vamsi Mota Work Phone: [facility] Start: 02-28-2022 Telephone encounter Harris Mota MD Work Phone: [facility] Practice Comment on above: Received Outside Med ical Records (from [facility] (speech therapy eval)) Start: 02-24-2022 End: 02-24-2022 Patient encounter procedure Harris Mota MD Work Phone: Family Practice Comment on above: Acute ischemic right MCA stroke (HCC) (Primary Dx); Paroxysmal atrial fibrillation (HCC) Start: 02-22-2022 Telephone encounter Harris Mota MD Work Phone: Family Practice Comment on above: Patient Update ([facility]) Start: 02-22-2022 End: 02-22-[address] Vamsi Mota Work Phone: [facility] Start: 02-16-2022 Telephone encounter Harris Mota MD Work Phone: Family Practice Comment on above: Received Outside Med ical Records (ED summary, imaging, and labs from [facility]) Received Outside Med ical Records (EKG from [facility]) Start: 02-15-2022 End: 02-17-2022 Evaluation and management of inpatient VIRAJ GARIBAY Facility:[facility] Start: 02-15-2022 End: 02-17-2022 Evaluation and management of inpatient Sanju White MD Work Phone: [id number] Comment on above: Stroke Start: 02-15-2022 End: 02-15-2022 Emergency department patient visit [facility]gency Department Start: 10-28-2021 End: 10-28-2021 Patient encounter procedure [facility]atory, [facility] Start: 08-26-2020 End: 08-26-2020 Subsequent hospital visit by physician [facility] Work Phone: Radiology Comment on above: Chronic [...] W Auto Different ial panel - Blood [facility] Start: 03-31-2025 Cobalamin (Vitamin B 12) [Mass/volume] in Serum or Plasma [facility] Start: 03-31-2025 Comprehensive metabo lic 2000 panel - Serum or Plasma [facility] Start: 03-31-2025 Lipid 1996 panel - S mundo or Plasma [facility] Start: 03-31-2025 Vitamin D, 25-hydrox y measurement [facility] Start: 02-17-2025 Diabetes Screening Diabetes Screenin g [facility] Start: 02-16-2025 DIABETES SCREEN DIABETES SCREEN [facility] Start: 01-28-2025 Patient referral [facility] Work Phone: Start: 08-08-2024 DIABETES SCREEN DIABETES SCREEN [facility] Start: 06-08-2024 Covid-19 Vaccine ( season) Covid-19 Vaccine (4 - ) [facility] Start: 06-08-2024 Influenza vaccination Influenz a Vaccine (#1) [facility] Start: 10-08-2023 Advance Directive Discussion Advance Directive Discussion [facility] Start: 09-29-2023 Admission procedure [facility] Start: 09-29-2023 [facility] Start: 03-15-2023 Patient referral [facility] Work Phone: Start: 02-13-2023 Patient discharge [facility] Start: 02-10-2023 Referral to sanitary plumber [facility] Start: 02-09-2023 Referral to service [facility] Start: 02-08-2023 End: 02-09-2023 [facility] Start: 02-08-2023 Following clinical p athway protocol [facility] Start: 02-08-2023 Ambulation without limitation [facility] Start: 02-08-2023 Assessment of risk o f venous thromboembolism [facility] Start: 02-08-2023 Inhalation therapy procedure [facility] Start: 02-08-2023 Insertion of cathete r into peripheral vein [facility] Start: 02-08-2023 Notification of physician [facility] Start: 02-08-2023 Oxygen therapy [facility] Start: 02-08-2023 Providing care accor ding to standard [facility] Start: 02-08-2023 Provision of activit y privileges [facility] Start: 02-08-2023 Referral to occupati onal therapist [facility] Start: 02-08-2023 Referral to service [facility] Start: 02-08-2023 Vital signs measurements [facility] Start: 02-08-2023 Admission procedure [facility] Start: 02-08-2023 Patient referral to dietitian [facility] Start: 02-08-2023 [facility] Start: 12-11-2022 Elastase, pancreatic (el-1), fecal; quantitative [facility] Start: 12-11-2022 Fat [Presence] in Stool [facility] Start: 12-11-2022 Protein measurement [facility] Start: 12-08-2022 Immunoglobulin measurement [facility] Start: 12-08-2022 Procedure [facility] Start: 12-08-2022 Serum immunofixation [facility] Start: 12-08-2022 [facility] Start: 11-01-2022 Giardia lamblia Ag [Presence] in Stool by Immunoassay [facility] Start: 11-01-2022 Protein measurement [facility] Start: 10-08-2022 ADVANCE DIRECTIVE DISCUSSION ADVANCE DIRECTIVE DISCUSSION [facility] Start: 10-08-2022 DEPRESSION ASSESSMENT DEPRESSION ASS ESSMENT [facility] Start: 07-07-2022 [facility] Start: 06-19-2022 End: 06-19-2022 Patient encounter procedure 06/19/2022 Office Visit Pharmacy Yolis Floyd MD [address] [facility] [place] [address] [facility] Start: 06-08-2022 Influenza vaccination INFLUENZA (#1) [facility] Start: 03-16-2022 End: 03-16-2022 Patient encounter procedure 03/16/2022 Office Visit Neurology Debbie Marte, WAIST PLEATER-MEDICAL AFFAIRS SPECIALIST [address] [facility] [address] [place] [address] [facility]rology [facility] Start: 02-12-2022 COVID-19 VACCINE (4 - Booster for Moderna series) COVID-19 VACCINE (4 - Booster for Moderna series) [facility] Start: 12-10-2021 COVID-19 VACCINE (4 - Booster for Moderna series) COVID-19 VACCINE (4 - Booster for Moderna series) [facility] Start: 10-08-2021 ADVANCE DIRECTIVE DISCUSSION ADVANCE DIRECTIVE DISCUSSION [facility] Start: 10-08-2021 DEPRESSION ASSESSMENT DEPRESSION ASS ESSMENT [facility] Start: 05-19-2021 COVID-19 VACCINE (3 - Booster for Moderna series) COVID-19 VACCINE (3 - Booster for Moderna series) [facility] Start: 2012 RSV Vaccine (1 - 1-d ose 75+ series) RSV Vaccine (1 - 1-dose 75+ series) [facility] Start: 07-13-2007 Tetanus vaccination TETANUS [facility] Start: 1982 Colonoscopy COLORECTAL CAN CER SCREENING DISCUSSION [facility] Start: 1977 Screening mammography MAMMOGRA M SCREENING DISCUSSION [facility] Start: 1958 Screening for malign ant neoplasm of cervix CERVICAL CANCER SCREENING DISCUSSION [facility] Start: 1956 Third diphtheria, te tanus and acellular pertussis (DTaP) vaccination TDAP (ADULT) [facility] Start: 1956 Urine microalbumin profile [facility] Start: 1955 Depression Screening Depression Scre ening [facility] Start: 1942 COVID-19 VACCINE (#1) COVID-19 VACCI NE (#1) [facility] Start: 1937 Screening for osteoporosis DEXA SCAN DISCUSSION [facility] Alanine aminotransfe rase [Enzymatic activity/volume] in Serum or Plasma [facility] Albumin [Mass/volume ] in Serum or Plasma [facility] Albumin [Moles/volum e] in Serum or Plasma [facility] Albumin/Globulin ratio [facility] Alkaline phosphatase [Enzymatic activity/volume] in Serum or Plasma [facility] Anion gap in Serum o r Plasma [facility] Bilirubin, total measurement [facility] BUN/Creatinine ratio [facility] Calcium [Mass/volume ] in Serum or Plasma [facility] Carbon dioxide, tota l [Moles/volume] in Central venous blood [facility] Cholesterol [Mass/vo lume] in Serum or Plasma [facility] Cholesterol in HDL [Mass/volume] in Serum or Plasma [facility] Creatinine [Mass/vol ume] in Serum or Plasma [facility] CT Unspecified body region [facility] Work Phone: Electrophoresis: [id number] [facility] Electrophoresis: lyric ma globulin [facility] Erythrocyte mean corpuscular volume determination [facility] Fat [Mass/mass] in Stool [facility] Fat.neutral [Presenc e] in Stool [facility] Globulin measurement [facility] Glucose [Mass/volume ] in Serum or Plasma [facility] GOLD TOP TUBE GOLD TOP TUBE La b Routine 02/15/2022 9:45 [facility] [[facility] Fraction] of Blood [facility] Hemoglobin [Mass/vol ume] in Blood [facility] IgA [Mass/volume] in Serum or Plasma [facility] IgE [Units/volume] i n Serum or Plasma [facility] IgG [Mass/volume] in Serum or Plasma [facility] IgM [Mass/volume] in Serum or Plasma [facility] LAVENDER TOP TUBE LAVENDER TOP T UBE Lab Routine 02/15/2022 9:45 PM EDT [facility] Leukocytes [#/volume ] in Blood [facility] Low density lipoprot ein cholesterol measurement [facility] Mean corpuscular hemoglobin concentration determination [facility] Mean corpuscular hemoglobin determination [facility] Measurement of renal function [facility] Neutrophil count [facility] Neutrophil cytoplasm ic Ab.classic [Units/volume] in Serum [facility] Neutrophil percent differential count [facility] P-ANCA measurement [facility] Patient Education [facility] Work Phone: Patient referral [facility] Work Phone: Platelets [#/volume] in Blood [facility] Potassium measurement [facility] Protein electrophore sis panel - Serum or Plasma [facility] Protein measurement [facility] RAINBOW DRAW RAINBOW DRAW Lab Routine 02/15/2022 9:45 PM EDT [facility] Red blood cell count [facility] Red cell distributio n width determination [facility] Serum chloride measurement [facility] Serum protein electrophoresis [facility] Sodium measurement [facility] End: 02-15-2022 Standard ECG [facility] Comment on above: One Time for 1 Occur rences starting 02/15/2022 until 02/15/2022 End: 02-16-2022 Standard ECG ECG ECG Routine One Time for 1 Occurrences starting 02/16/2022 until 02/16/2022 [facility] Comment on above: One Time for 1 Occur rences starting 02/16/2022 until 02/16/2022 Total cholesterol:HD L ratio measurement [facility] Total protein measurement [facility] Triglycerides measurement [facility] Urea nitrogen [Mass/volume] in Serum or Plasma [facility] VLDL cholesterol measurement [facility] Immunizations Immunization Date Immunization Notes Care Provider Rosalio ortiz 06-29-2025 Seasonal trivalent influenza vaccine, adjuvanted, preservative free Dr. Deepika Fabian MD Work Phone: [facility] 07-10-2023 influenza, injectabl e, quadrivalent, preservative free Dr. Deepika Fabian Work Phone: [facility] 04-17-2023 tetanus toxoid, redu polly diphtheria toxoid, and acellular pertussis vaccine, adsorbed Dr. Deepika Fabian Work Phone: [facility] 06-30-2022 Influenza High-Dose Quadrivalent Dr. Deepika Fabian Work Phone: [facility] 06-30-2022 Influenza, high dose seasonal Dr. Deepika Fabian MD Work Phone: [facility] 06-30-2022 influenza, high dose seasonal, preservative-free Dr. Deepika Fabian Work Phone: [facility] 06-30-2022 influenza virus vacc ine, unspecified formulation Xr [place] Work Phone: [facility] 10-15-2021 Covid (Moderna) Dr. Vamsi Mota Work Phone: [facility] 08-17-2021 Influenza, high dose seasonal Dr. Deepika Fabian MD Work Phone: [facility] 08-17-2021 influenza, high dose seasonal, preservative-free Dr. Vamsi Mota Work Phone: [facility] 08-17-2021 influenza, high-dose , quadrivalent vaccine (FLUZONE HIGH DOSE QUADRIVALENT) Harris Mota MD Work Phone: [facility] 12-17-2020 Covid (Moderna) [facility] 11-19-2020 Covid (Moderna) [facility] 08-23-2020 Influenza, high dose seasonal Dr. Deepika Fabian MD Work Phone: [facility] 08-23-2020 influenza, high dose seasonal, preservative-free Dr. Vamsi Mota Work Phone: [facility] 08-23-2020 influenza, high-dose , quadrivalent vaccine (FLUZONE HIGH DOSE QUADRIVALENT) Harris Mota MD Work Phone: [facility] 08-25-2019 Influenza, high dose seasonal Dr. Deepika Fabian MD Work Phone: [facility] 08-25-2019 influenza, high dose seasonal, preservative-free Harris Mota MD Work Phone: [facility] 07-11-2019 zoster vaccine recombinant Harris Mota MD Work Phone: [facility] 07-10-2019 zoster vaccine recombinant Harris Mota MD Work Phone: [facility] 05-04-2019 zoster vaccine recombinant Harris Mota MD Work Phone: [facility] 08-05-2018 Influenza, high dose seasonal Dr. Deepika Fabian MD Work Phone: [facility] 08-05-2018 influenza, high dose seasonal, preservative-free Harris Mota MD Work Phone: [facility] 07-20-2017 Influenza, high dose seasonal Dr. Deepika Fabian MD Work Phone: [facility] 07-20-2017 influenza, high dose seasonal, preservative-free Harris Mota MD Work Phone: [facility] 07-31-2016 Influenza, high dose seasonal Dr. Deepika Fabian MD Work Phone: [facility] 07-31-2016 influenza, high dose seasonal, preservative-free Harris Mota MD Work Phone: [facility] 07-31-2016 pneumococcal conjuga te vaccine, 13 valent Harris Mota MD Work Phone: [facility] 07-07-2014 influenza, injectabl e, quadrivalent, preservative free Dr. Deepika Fabian Work Phone: [facility] 07-07-2014 influenza, seasonal, injectable Harris Mota MD Work Phone: [facility] 07-20-2013 influenza virus vacc ine, unspecified formulation Harris Mota MD Work Phone: [facility] 07-22-2012 influenza virus vacc ine, unspecified formulation Harris Mota MD Work Phone: [facility] 07-11-2011 influenza virus vacc ine, unspecified formulation Harris Mota MD Work Phone: [facility] 07-22-2010 influenza virus vacc ine, unspecified formulation Harris Mota MD Work Phone: [facility] Work Phone: 08-20-2007 influenza virus vacc ine, whole virus Harris Mota MD Work Phone: [facility] 08-20-2007 influenza, injectabl e, quadrivalent, preservative free Dr. Deepika Fabian Work Phone: [facility] 08-20-2007 influenza, seasonal, injectable Dr. Vamsi Mota Work Phone: [facility] 07-22-2005 pneumococcal polysaccharide vaccine, 23 valent Harris Mota MD Work Phone: [facility] Work Phone: 07-13-1997 tetanus toxoid, adsorbed Travis shruti Mota MD Work Phone: [facility] Payers Date Payer Category Payer Self-pay [id number] 2021 [facility] [id number] 2021 Unknown AARP AARP [id number] 2021-Present [address] [place] [address] [id number] 2015 Private Health Insurance [facility] AARP SUPPLEMENT [id number] 2015-Present [phone] [address] [place] [address] Indemnity [id number] 2015 Private Health Insurance [facility] AARP SUPPLEMENT [id number] 2015-Present [phone] [address] [place] [address] Indemnity [id number] 2002 Medicare [id number] 2002 Medicare MEDICARE MEDICAR E A AND B [id number] 2002-Present [phone] [place] [address] Medicare [id number] 2002 Medicare [id number] 1937 Unknown [id number] 1937 Unknown [id number] Unknown [id number] .462 Unknown [id number] .462 Unknown [id number] .462 Unknown [id number] .462 Unknown [id number] .462 Unknown [id number] [id number] .462 Unknown [id number] .462 Unknown [id number] [id number] .462 Unknown [id number] [id number] .462 Unknown [id number] [id number] .462 Unknown [id number] [id number] .462 Unknown [id number] .462 Social History Date Type Detail Facility Start: 02-15-2022 End: 09-29-2023 Tobacco smoking status TNIS Unknown if ever smoked [facility] Start: 1935 Sex Assigned At Female [facility] Start: 10-10-2012 End: 03-31-2025 Tobacco smoking status TNIS Never smoked tobacco [facility] Start: 08-23-2020 End: 08-17-2021 Alcohol intake Current drinker of alcohol (finding) [facility] Start: 05-26-2021 History SDOH Alcohol Frequency 2 [facility] Start: 05-26-2021 History SDOH Alcohol Std Drinks 1 [facility] Start: 05-26-2021 History SDOH Social Connections Phone 5 [facility] Start: 05-26-2021 History SDOH Social Connections Get Together 3 [facility] Start: 05-26-2021 History SDOH Social Connections Living 4 [facility] Start: 05-26-2021 History SDOH Physica l Activity DPW 6 [facility] Start: 05-26-2021 Education 21 [facility] Start: 1935 Sex Assigned At Not on file [facility] Start: 07-27-2020 End: 02-24-2022 Exposure to SARS-CoV-2 (event) Not sure [facility] Start: 10-10-2012 Tobacco use and exposure Smoke less tobacco non-user [facility] Start: 08-05-2018 End: 08-23-2020 History of Social function [facility] Start: 08-05-2018 End: 08-23-2020 Tobacco use panel [facility] Adult Depression Screening Assessment 0 [facility] Start: 02-02-2025 Sex Female (finding) [facility] Goals Date Patient Goal Desired Activity /State Functional Status Date Assessment Result Facility 02-13-2023 Functional status Ambulates;Aidan r;Bathroom Privilege [facility] Work Phone: Mental Status Date Assessment Result Facility 09-29-2023 Cognitive function Voice/Name [facility] Work Phone: 02-13-2023 Cognitive function Voice/Name [facility] Work Phone: 11-01-2022 Cognitive function Level Of Cons ciousness Awake;Alert;Appropriate;Follow s Commands [facility] Work Phone: 07-07-2022 Cognitive function Level Of Cons ciousness Awake;Alert;Appropriate;Follow s Commands [facility] Work Phone: 02-15-2022 Cognitive function Voice/Name [facility] Work Phone: Clinical Notes 08-26-2020 to 06-29-2025 Note Date & Type Note Facility 06-29-2025 Progress note [facility] 03-31-2025 Evaluation note Diagnosis Onset Date [...] Iron deficiency noneactive June 29, 2025 9:52am [place] [facility] Work Phone: 1(680) 576-983204-23-2025 Evaluation note* Diagnosis Onset Date Resolution Status [...] 2025 7:57am Iron deficiency noneactive March 7:57am [place] [facility] Work Phone: 1(920) 786-569404-23-2025 Evaluation note* Diagnosis Onset Date Resolution Status [...] [id number] 7:57am Iron deficiency noneactive March 7:57am [facility] Work Phone: 1(105) 203-288702-06-2025 Evaluation note* Diagnosis Onset Date Resolution Status [...] 2024 1:49pm Dizziness resolved January 28 1:49pm [facility] Work Phone: 1(779) 703-190706-28-2023 NoteHNO ID: [id number] Author: Grace Langston MA Service: ? Author Type: Processing Manager Type: Progress Notes Filed: 04/05/2023 12:43 PM [...] Grace Langston MA April 04, 2023 1:29 [facility]06-28-2023 NotePatient Outreach (NETNAV) DEA MERRITT ([id number]) 1935 F Date Time Provider Department 04/04/23 GRACE LANGSTON During your visit today, we recorded the following information about you: Grace Langston MA 04/05/2023 12:43 PM Signed POPULATION HEALTH NAVIGATION OUTREACH Action/FYI LVM MYCHART MESSAGE SENT ANNUAL MEDICARE WELLNESS ADVANCE DIRECTIVE DISCUSSION Patient Identified by Name and : NO Outreach Outcome/Action Unable to reach patient: Left message Hyperinkhart message sent Did you use a PCP [...] Comments: Mouth swelling and blurry vision. STATINS ([id number] REDUCTAS*10/18/2009 5 - Intolerance Comments: Joint pain/swelling/elevated [...] 02/21/2021 Encounter Status:Closed by GRACE LANGSTON on 04/05/23[facility]06-28-2023 History of Present illness Narrative* Grace Langston MA - 04/04/2023 1:29 PM EDT POPULATION HEALTH NAVIGATION OUTREACH Action/FYI LVM BDAT MESSAGE SENT ANNUAL MEDICARE WELLNESS ADVANCE DIRECTIVE DISCUSSION Patient Identified by Name and : NO Outreach Outcome/Action Unable to reach patient: Left message Hyperinkhart message sent Did you use a PCP [...] 04, 2023 1:29 PM [facility] Moffett [facility] February 13, 2023 2:07pm Note Date/Time February 13, 2023 2:07pm [facility] Medical Records Department [address] [place] [address] Discharge Summary 02/13/23 1405 MR#: [id number] Acct: [id number] Name: DEA MERRITT Rep #:[id number] : 1935 87 From: Jody Moffett MD PCP: Dr. Deepika Fabian MD Status:ADM IN Location: [place] [address] Providers Date of Admission: 02/08/23 Date of Discharge: 02/13/23 Primary Care Physician: Dr. Deepika Fabain MD Consultations 02/10/23 09:47 Consult: Podiatry Routine [...] of right MCA CVA who presented to [facility] 02/08/2023 with worsening diarrhea and right ankle [...] about appointment date/time please contact his office (ph.[phone]) -He was indicated that you are no [...] an outpatient basis with your PCP or mill operator helper if deemed appropriate -Please call your primary [...] about appointment date/time please contact his office (ph.[phone]) -He was indicated that you are no [...] an outpatient basis with your PCP or mill operator helper if deemed appropriate -Please call your primary [...] in before D/C Order can be placed): Jail Facility Charges/Coding Visit Charges Inpatient E&M: 52252 Disch Hosp >30min 02/13/23 1407 <Electronically signed by Jody Moffett MD> Cosigner Signature (if applicable): CC: Dr. Deepika Fabian MD; Dr. Jody Moffett MD~ Signed [facility] Work Phone: 1(147) 207-451305-09-[address] Moffett [facility] February 13, 2023 2:05pm Note Date/Time February 13, 2023 1:38pm [facility] Medical Records Department [address] [place] [address] Transfer to [facility] MR#: [id number] Acct: [id number] Name: DEA MERRITT Rep #:[id number] : 1935 87 From: Jody Moffett MD PCP: Dr. Deepika Fabian MD Status:ADM IN Certification of patient admission REQUIRED AT TIME OF ADMISSION. I CERTIFY THAT POST-HOSPITAL ECF SERVICES ARE REQUIRED TO BE GIVEN ON AN IN-PATIENT BASIS BECAUSE OF THE ABOVE NAMED PATIENT'S NEED FOR HALFWAY CARE ON A CONTINUING BASIS FOR THE CONDITION(S) FOR WHICH HE/SHE WAS RECEIVING IN-PATIENT HOSPITAL SERVICES PRIOR TO HIS/HER TRANSFER TO THE [facility]. 02/13/23 1405<Electronically signed by Jody Moffett MD> [...] of right MCA CVA who presented to [facility] 02/08/2023 with worsening diarrhea and right ankle [...] about appointment date/time please contact his office (ph.[phone]) -He was indicated that you are no [...] an outpatient basis with your PCP or mill operator helper if deemed appropriate -Please call your primary care provider's office upon discharge to schedule a hospital follow up within 1 week. -For any concerning signs or symptoms please call 911 or proceed to the nearest emergency department Allergies/Procedures Done in Hospital Allergies clindamycin Allergy (Verified 02/08/23 10:32) Other hyoscyamine Allergy (Verified 02/08/23 10:32) Other Penicillins Allergy (Verified 02/08/23 10:32) Hives Evrjzan-PRQ-EnM Reductase Inhibitor [Duxtsgb-Xbx-Ljc Reductase Inhibitor] Allergy (Verified 02/08/23 10:32) Pain [...] about appointment date/time please contact his office (ph.[phone]) -He was indicated that you are no [...] an outpatient basis with your PCP or mill operator helper if deemed appropriate -Please call your primary [...] in before D/C Order can be placed): Jail Facility 02/13/23 1405 <Electronically signed by Jody Moffett MD> Cosigner Signature (if applicable): CC: MOON Rod; Dr. Deepika Fabian MD; Dr. Himanshu Reynolds MD ~ [facility] Work Phone: 1(727) 475-959705-09-2023 Progress note Author Vamsi [facility] February 13, 2023 7:13am Note Date/Time February 13, 2023 7:11am [facility] Medical Records Department [address] [place] [address] Progress Note 02/13/23705 MR#: [id number] Acct: [id number] Name: DEA MERRITT Rep #:[id number] : 1935 87 From: Vamsi Segal DPM PCP: Dr. Deepika Fabian MD Status:ADM IN Location: [place] [address] Subjective Subjective Patient was seen this morning [...] Cosigner Signature (if applicable): CC: ~ Signed [facility] Work Phone: 1(891) 967-885105-08-[address] Moffett [facility] February 12, 2023 3:22pm Note Date/Time February 12, 2023 11:01a [facility] Medical Records Department [address] [place] [address] Progress Note - Hospitalist 02/12/23 1100 MR#: [id number] Acct: [id number] Name: DEA MERRITT Rep #:[id number] : 1935 87 From: Jody Moffett MD PCP: Dr. Deepika Fabian MD Status:ADM IN Location: [place] [address] Reason for Visit Reason for Visit: Diagnoses [...] 72.9 H, Lymph % (Auto) 17.4 L, [place] % (Auto) 7.8, Eos % (Auto) 1.0, [...] documentation, 30minutes Charges/Coding Visit Charges Inpatient E&M: [address] Subs Hosp L2 02/12/23 1522 <Electronically signed by Jody Moffett MD> Cosigner Signature (if applicable): CC: ~ Signed [facility] Work Phone: 1(590) 928-911805-08-[address] Price [facility] February 12, 2023 4:05am Note Date/Time February 12, 2023 4:05am [facility] Medical Records Department [address] [place] [address] Progress Note - Hospitalist 02/12/23 0405 MR#: [id number] Acct: [id number] Name: DEA MERRITT Rep #:[id number] : 1935 87 From: Rebecca Price MD PCP: Dr. Deepika Fabian MD Status:ADM IN Location: [place] [address] Hospitalist Note Recurrent atrial fibrillation with RVR, will dose with IV cardizem x 1 now, was effective prior with occurrence. 02/12/23 0405 <Electronically signed by Rebecca Price MD> Cosigner Signature (if applicable): CC: ~ Signed [facility] Work Phone: 1([phone]) 272-102705-07-[address] Reynolds [facility] February 11, 2023 8:57am Note Date/Time February 11, 2023 7:37am [facility] Medical Records Department [address] [place] [address] Progress Note - Hospitalist 02/11/23 0735 MR#: [id number] Acct: [id number] Name: DEA MERRITT Rep #:[id number] : 1935 87 From: Himanshu Reynolds MD PCP: Dr. Deepika Fabian MD Status:ADM IN Location: [place] [address]- 1 Reason for Visit Reason for Visit: Diagnoses Hyperlipidemia, unspecified (02/08/23) Dehydration (02/08/23) Hypokalemia (02/08/23) Essential (primary) hypertension (02/08/23) Pain in right foot (02/08/23) Diarrhea, unspecified (02/08/23) Difficulty in walking, not elsewhere classified (02/08/23) Subjective Subjective Patient went into A-fib with RVR with initiation of Cardizem. Patient now agreeable to being discharged to a senior living facility consult has subsequently been placed Case [...] % (Auto) 66.9, Lymph % (Auto) 22.6, [place] % (Auto) 8.6, Eos % (Auto) 1.2, [...] Neut % (Auto) 70.0, Lymph % (Auto)20.7, [place] % (Auto) 7.8, Eos % (Auto) 0.7, [...] 0:45 EDT Reading Location ID and State: [facility] / [place] Tel , Service support , Physical Exam [...] Requested for PT OT eval and social media marketing analyst to assist with discharge planning. Plan is for patient to be discharged to senior living facility pending insurance approval and bed availability Time spent in the patient's overall evaluation,decision-making process, review of diagnostic data, adjustment of management, discussion with other providers, nursing nursing and ancillary staff involved in patient's care documentation, 37 Minutes Charges/Coding Visit Charges Inpatient E&M: 30823 Subs Hosp L2 02/11/23 0857 <Electronically signed by Himanshu Reynolds MD> Cosigner Signature (if applicable): CC: ~ Signed [facility] Work Phone: 1(925) 152-686205-07-[address] Price [facility] February 11, 2023 1:15am Note Date/Time February 10, 2023 10:11p m [facility] Medical Records Department [address] [place] [address] Progress Note - Hospitalist 02/10/232210 MR#: [id number] Acct: [id number] Name: DEA MERRITT Rep #:[id number] : 1935 87 From: Rebecca Price MD PCP: Dr. Deepika Fabian MD Status:ADM IN Location: [place] [address] Hospitalist Note Asymptomatic sustained HR 170s per [...] Cosigner Signature (if applicable): cc: ~* Signed [facility] Work Phone: 1(123) 253-104805-06-2023 Consult note Author Emanuel Rod [facility] February 10, 2023 5:59pm Note Date/Time February 10, 2023 5:01pm [facility] Medical Records Department [address] [place] [address] Consultation 02/10/23 1701 MR#: [id number] Acct: [id number] Name: DEA MERRITT Rep #:[id number] : 1935 87 From: Emanuel donaldson DPM PCP: Dr. Deepika Fabian MD Status:ADM IN Location: [place] [address] Assessment & Plan Assessment/Plan (1) Foot pain, [...] Jr. Lidia Allen.[facility] [phone] HPI Consult Data Date of Consult: 02/10/23 HPI Narrative Reason for Consultation: Swollen right ankle HPI Narrative: DEA MERRITT, is a 87 F who presents to [facility] on 02/08/2023 with complaint of returning diarrhea [...] with request to perform arthrocentesis. 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 Deepika Fabian MD~ Signed [facility] Work Phone: 1([phone]) 394-692005-06-[address] Reynolds [facility] February 10, 2023 9:49am Note Date/Time February 10, 2023 7:41am [facility] Medical Records Department [address] [place] [address] Progress Note - Hospitalist 02/10/23 0741 MR#: [id number] Acct: [id number] Name: DEA MERRITT Rep #:[id number] : 1935 87 From: Himanshu Reynolds MD PCP: Dr. Deepika Fabian MD Status:ADM IN Location: [place] [address] Reason for Visit Reason for Visit: Diagnoses [...] 37 Minutes Charges/Coding Visit Charges Inpatient E&M: 63076 Subs Hosp L2 02/10/23 0949 <Electronically signed by Himanshu Reynolds MD> Cosigner Signature (if applicable): CC: ~ Signed [facility] Work Phone: [phone]) 830-671405-05-[address] Reynolds [facility] February 09, 2023 10:15am Note Date/Time February 09, 2023 7:40am [facility] Medical Records Department [address] [place] [address] Progress Note - Hospitalist 02/09/23 0738 MR#: [id number] Acct: [id number] Name: DEA MERRITT Rep #:[id number] : 1935 87 From: Himanshu Reynolds MD PCP: Dr. Deepika Fabian MD Status:ADM IN Location: [place] [address] Reason for Visit Reason for Visit: Diagnoses [...] 70.9 H, Lymph % (Auto) 14.4 L, [place] % (Auto) 12.7 H, Eos % (Auto) [...] Clarity Clear, Urine pH 7.0, Ur Specific [place] 1.010, Urine Protein 30 H, Urine Glucose [...] % (Auto) 61.7, Lymph % (Auto) 21.1, [place]% (Auto) 14.4 H, Eos % (Auto) 1.8, Baso % (Auto) 0.7, Absolute Neuts (auto) 5.5,Absolute Lymphs (auto) 1.89, Nucleated RBC % 0 02/09/23 06:15: Sodium 140, Potassium 2.9 L, Chloride 107, Carbon Dioxide 24.0, Anion Gap 9, BUN 12, Creatinine 0.66, Estim Creat Clear Calc 31.04, Est GFR (MDRD) Af Amer 110, Est GFR (MDRD) Non-Af 91, BUN/Creatinine Ratio 18.3, Nzugulr040, Calcium 8.1 L, Phosphorus 1.6 L, Magnesium [...] 37 Minutes Charges/Coding Visit Charges Inpatient E&M: 67483 Subs Hosp L2 02/09/23 1015 <Electronically signed by Himanshu Reynolds MD> Cosigner Signature (if applicable): CC: ~ Signed [facility] Work Phone: 1(632) 400-579605-05-[address] Price [facility] February 08, 2023 10:03pm Note Date/Time February 08, 2023 10:03p m [facility] Medical Records Department [address] [place] [address] Progress Note - Hospitalist 02/08/232202 MR#: [id number] Acct: [id number] Name: DEA MERRITT Rep #:[id number] : 1935 87 From: Rebecca Price MD PCP: Dr. Deepiak Fabian MD Status:ADM IN Location: [place] [address] Hospitalist Note Patient daughter and patient insistent that she take only 20 mg prednisone only.In the past when attempted 40 mg daily she had mental status changes. Dose decreased to 20 mg daily. 02/08/232202 <Electronically signed by Rebecca Price MD> Cosigner Signature (if applicable): CC: ~ Signed [facility] Work Phone: [phone]) 107-431605-04-2023 History and physical note Author Dr. Reynolds [facility] February 08, 2023 1:29pm Note Date/Time February 08, 2023 1:06pm [facility] Medical Records Department [address] [place] [address] H&P Exam - Hospitalist 02/08/23 1306 MR#: [id number] Acct: [id number] Name: DEA MERRITT Rep #:[id number] : 1935 87 From: Himanshu Reynolds MD PCP: Dr. Deepika Fabian MD Status:ADM IN Location: [place] [address] HPI - General General Date of Admission: [...]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 November 10 11:26am Power of Boot Lace Cutter Machine No November 10, 2022 11:26am Advance Directive Response Recorded Date/ Time Name of Medical Power of Boot Lace Cutter Machine ? November 01, 2022 4:06pm Name of Medical Power of Boot Lace Cutter Machine stephie (daught er) November 04, 2022 12:28pm Name of Medical Power of Boot Lace Cutter Machine Stephie Bowen: daughters February 08, 2023 2:03pm Advance Directives Yes September 2:25pm Living Will Yes February 08, 2023 2: 03pm Power of Boot Lace Cutter Machine Yes February 08, 2023 2:03pm Advance Directive Response Recorded Date/ Time Name of Medical Power of Boot Lace Cutter Machine Stephie Bowen: daughters February 08, 2023 2:03pm Advance Directives Yes September 2:25pm Living Will Yes February 08, 2023 2: 03pm Power of Boot Lace Cutter Machine Yes February 08, 2023 2:03pm Advance Directive Response Recorded Date/ Time Name of Medical Power of Boot Lace Cutter Machine joaquín hickman, daughter September 29, 2023 1:41am Advance Directives Yes September 1:25pm Living Will Yes September 29, 2 023 1:41am Power of Boot Lace Cutter Machine Yes September 29, 2023 1:41am Advance Directive Response Recorded Date/ Time Living Will Yes September 29, 2 023 2:41am Do you have a Healthcare Power of Boot Lace Cutter Machine? Yes September 29, 2023 2:41am Living Will Yes April 19, 2024 1:45pm Do you have a Healthcare Power of Boot Lace Cutter Machine? Yes April 19, 2024 1:45pm Advance Directives [...] or prosecute any alcohol or drug abuse patient.[facility] HospitalIn the event this information is protected by the Federal Confidentiality of Alcohol and Drug Abuse Patient Records regulations: The Federal rules restrict any use of the information to criminally investigate or prosecute any alcohol or drug abuse patient.[facility] HospitalIn the event this information is protected by the Federal Confidentiality of Alcohol and Drug Abuse Patient Records regulations: The Federal rules restrict any use of the information to criminally investigate or prosecute any alcohol or drug abuse patient.[facility] HospitalIn the event this information is protected by the Federal Confidentiality of Alcohol and Drug Abuse Patient Records regulations: The Federal rules restrict any use of the information to criminally investigate or prosecute any alcohol or drug abuse patient.[facility] HospitalIn the event this information is protected by the Federal Confidentiality of Alcohol and Drug Abuse Patient Records regulations: The Federal rules restrict any use of the information to criminally investigate or prosecute any alcohol or drug abuse patient.[facility] HospitalIn the event this information is protected by the Federal Confidentiality of Alcohol and Drug Abuse Patient Records regulations: The Federal rules restrict any use of the information to criminally investigate or prosecute any alcohol or drug abuse patient.[facility] HospitalIn the event this information is protected by the Federal Confidentiality of Alcohol and Drug Abuse Patient Records regulations: The Federal rules restrict any use of the information to criminally investigate or prosecute any alcohol or drug abuse patient.[facility] HospitalIn the event this information is protected by the Federal Confidentiality of Alcohol and Drug Abuse Patient Records regulations: The Federal rules restrict any use of the information to criminally investigate or prosecute any alcohol or drug abuse patient.[facility] HospitalIn the event this information is protected by the Federal Confidentiality of Alcohol and Drug Abuse Patient Records regulations: The Federal rules restrict any use of the information to criminally investigate or prosecute any alcohol or drug abuse patient.[facility] HospitalIn the event this information is protected by the Federal Confidentiality of Alcohol and Drug Abuse Patient Records regulations: The Federal rules restrict any use of the information to criminally investigate or prosecute any alcohol or drug abuse patient.[facility] HospitalIn the event this information is protected by the Federal Confidentiality of Alcohol and Drug Abuse Patient Records regulations: The Federal rules restrict any use of the information to criminally investigate or prosecute any alcohol or drug abuse patient.[facility] HospitalIn the event this information is protected by the Federal Confidentiality of Alcohol and Drug Abuse Patient Records regulations: The Federal rules restrict any use of the information to criminally investigate or prosecute any alcohol or drug abuse patient.[facility] HospitalIn the event this information is protected by the Federal Confidentiality of Alcohol and Drug Abuse Patient Records regulations: The Federal rules restrict any use of the information to criminally investigate or prosecute any alcohol or drug abuse patient.[facility] HospitalIn the event this information is protected by the Federal Confidentiality of Alcohol and Drug Abuse Patient Records regulations: The Federal rules restrict any use of the information to criminally investigate or prosecute any alcohol or drug abuse patient.[facility] Reason for Visit (unrecogniz ed section and content) Reason Comments Received Outside Medical Records ED summ drea, imaging, and labs from [facility] Reason Comments Received Outside Medical Records EKG fro m [facility] Reason Comments Altered mental status Specialty Diagnoses / Procedures Referred By Eligio t Referred To Contact Diagnoses confusion Referral ID Status Reason Start Date Expiration Date Visits Re quested Visits Authorized [id number] 1 1 Reason Comments Patient Update [facility] Reason Comments Transition Of Care Reason Comments Received Outside Medical Records from [facility] (speech therapy eval) Reason Comments Received Outside Medical Records [facility] Reason Comments Orders reviewed and signed by PCP and faxed back to [facility] occupational therapy. Reason Comments Received Outside Medical Records [facility] Reason Comments Received Outside Medical Records [facility] discharge summary [facility] 04/06/2022 Reason Comments Outside Lab Results [facility] Reason Comments Refill Request Reason Onset Date Comments Population Health [facility] (unrecognized sec tion and content) Care Attendant Relationship Specialty Start Date End Date Harris Mota MD [address] [place], [place] [address] PCP - General Family Practice 10/12/10 Care Attendant Relationship Specialty Start Date End Date Vamsi Mota MD [address] [place] [address] [place], [place] [address] PCP - General Family Medicine 02/17/22 Care Attendant Relationship Specialty Start Date End Date Harris Mota MD [address] [place], [place] [address] PCP - General Family Practice 10/12/10 Care Attendant Relationship Specialty Start Date End Date Harris Mota MD [address] [place], [place] [address] PCP - General Family Practice 10/12/10 Care Attendant Relationship Specialty Start Date End Date Harris Mota MD [address] [place], [place] [address] PCP - General Family Practice 10/12/10 Care Attendant Relationship Specialty Start Date End Date Harris Mota MD [address] [place], [place] [id number] PCP - General Family Medicine 10/12/10 Team [...] MD Primary Care Provider Active Allison Tomlinson DEV MANAGER, DEV MANAGER-C Attending Provider Active Team Status: Inactive Member [...] Dr. Deepika Fabian MD Primary [facility] Active Care Attendant Relationship Specialty Start Date End Date Harris Mota MD [address] [place] [address] PCP - General Family Medicine 10/12/10 Team Status: Inactive Member Role Status Dates Dr. Deepika Fabian MD Primary Care Provider Active Allison Tomlinson DEV MANAGER, DEV MANAGER-C Attending Provider Active Team Status: Inactive Member [...] Active Terrell FUENTES PA Attending Provider Active Care Attendant Relationship Specialty Start Date End Date Harris Mota MD [address] [facility] [place] [address] PCP - [facility] 10/12/10 Team Status: Inactive Member Role [...] over 2 minutes. Telemetry required except for JORDAN MAN patients on Gerald [address]oors 6 and 7. [...] section and content) DATE CREATED AUTHOR 03/17/2022 [facility] DATE CREATED AUTHOR AUTHOR'S ORGANIZ ATION 04/06/2023 [facility] DATE CREATED AUTHOR AUTHOR'S ORGANIZ ATION 06/29/2025 [facility] FOR RECORDS PERTAINING TO PATIENTS WHO ARE [...] BE BASED ON THE PRIMARY CLINICAL RECORDS. [employer] provides no warranty or guarantee of the accuracy or completeness of information in this document.
[2025-07-30 20:46] LABS: Mucous, Urine 0 SEEN /hpf (<or=2+)
[2025-07-30 20:47] LABS: Color, Urine Yellow (Yellow); Glucose, Dipstick Normal (Normal); Ketone-Dipstick Negative (Negative); Leukocyte Esterase-Dipstick 500 /ul (Negative); Nitrite-Dipstick Negative (Negative); Occult Blood-Urine 50 /ul (Negative); Protein-Dipstick 15 mg/dl (Negative); Specific Gravity, Urine 1.005 (1.002-1.030); Urine Bilirubin Dipstick Negative (Negative)
--- NOTE | 2025-07-30 20:55 | ECHOD_ITS ---
Reason For Study Reason For Study: TIA/CVA Procedure This was a 2D Doppler, Color Flow transthoracic echocardiogram. Exam performed portable in patient room. Left Ventricle Normal LV size. Mild concentric left ventricular hypertrophy. Sigmoid septum. The left ventricular ejection fraction is 60 %. Unable to assess diastolic dysfunction due to arrhythmia. Right Ventricle Normal RV size. Normal systolic function. Atria The left atrium is severely enlarged. The right atrium is moderately enlarged. No doppler evidence for ASD. Mitral Valve Moderate mitral annular calcification. Mild-Moderate (1-2+) mitral valve insufficiency. Tricuspid Valve Normal tricuspid valve. Moderate (2+) tricuspid valve insufficiency. Pulmonary artery systolic pressure is 39 mmHg. Aortic Valve Trisinus/trileaflet aortic valve. Moderate focal aortic valve calcification. Aortic sclerosis, no stenosis. Mild (1+) aortic valve insufficiency. Pulmonic Valve Trivial pulmonic valve insufficiency. Great Vessels Normal sized aortic root. Pericardium/Pleural No pericardial effusion. MMode/2D Measurements & Calculations LVIDd: 4.0 cm IVSd: 1.3 cm LVOT diam: 2.0 cm LVIDs: 2.7 cm LVPWd: 1.2 cm LVOT area: 3.3 cm2 RVDd: 3.7 cm FS: 32.5 % Ao root diam: 3.0 cm LAV(MOD-bp): 105.0 ml LVAd ap4: 18.5 cm2 LAV(MOD-bp) Indexed: 73.1 ml/m2 LVLd ap4: 6.7 cm LAV(MOD-sp2): 93.8 ml EDV(MOD-sp4): 42.1 ml LAV(MOD-sp4): 113.6 ml EDV(sp4-el): 43.6 ml LVAs ap4: 9.2 cm2 LVLs ap4: 5.6 cm ESV(MOD-sp4): 13.0 ml ESV(sp4-el): 12.9 ml EF(MOD-sp4): 69.1 % EF(sp4-el): 70.4 % SV(MOD-sp4): 29.1 ml SV(sp4-el): 30.7 ml Aortic Valve Planimetry: 1.1 cm2 SI(MOD-sp4): 20.3 ml/m2 LA A4 area: 31.6 cm2 LA dimension(2D): 4.7 cm RA A4 area: 21.8 cm2 TAPSE: 1.9 cm Doppler Measurements & Calculations MV E max matilda: 111.7 cm/sec MV V2 max: 122.5 cm/sec Ao V2 max: 109.0 cm/sec MV max P.0 mmHg Ao max P.8 mmHg MV V2 mean: 58.4 cm/sec Ao V2 mean: 78.9 cm/sec MV mean P.8 mmHg Ao mean P.8 mmHg MV V2 VTI: 27.1 cm Ao V2 VTI: 24.8 cm AV (velocity ratio): 0.71 MVA(VTI): 2.1 cm2 CARMELINA(I,D): 2.3 cm2 CARMELINA(V,D): 2.5 cm2 AI max matilda: 457.5 cm/sec LV V1 max: 83.6 cm/sec MR max matilda: 635.0 cm/sec AI max P.7 mmHg LV V1 max P.8 mmHg MR max P.3 mmHg AI dec slope: 234.1 cm/sec2 LV V1 mean P.6 mmHg MR mean matilda: 474.3 cm/sec AI P1/2t: 572.3 msec LV V1 mean: 60.5 cm/sec MR mean P.6 mmHg LV V1 VTI: 17.5 cm MR VTI: 210.8 cm SV(LVOT): 57.4 ml PA V2 max: 73.4 cm/sec TR max matilda: 273.9 cm/sec TR max P.8 mmHg ECHO/Echo Complete Interpretation Summary The left ventricular ejection fraction is 60 %. The left atrium is severely enlarged. The right atrium is moderately enlarged. Mild-Moderate (1-2+) mitral valve insufficiency. Moderate (2+) tricuspid valve insufficiency. Aortic sclerosis, no stenosis. Mild (1+) aortic valve insufficiency. Ordering Physician: Jody Moffett Performed By: Barrie Bass RCS
[2025-07-30 21:02] LABS: Red Blood Cells-Urine 0-5 SEEN /hpf (0-5); Squamous Epithelial Cells - UA 0-5 SEEN /hpf (5-10)
[2025-07-30 21:26] LABS: Troponin T High Sens 2 HR 21 ng/L (<=14)
[2025-07-30] MEDS: 0.9% Normal Saline (1000mL) 1,000 ML 50 ML IV (21:46)
[2025-07-30] MEDS: Senna/Docusate Sodium 1 Tablet 2 TABLET PO (21:46)
[2025-07-30] MEDS: 0.9% Saline Lock 10 ML Syringe IV (21:48)
[2025-07-30 22:46] LABS: Troponin T High Sens 4 HR 20 ng/L (<=14)
[2025-07-31] VITALS (8 sets, daily range): BP systolic 130–173; BP diastolic 63–90; PULSE 71–87; RESP 14–16; TEMP 36.5–37; O2SAT 94–97; BMI 20.9
--- NOTE | 2025-07-31 01:41 | NURSING ---
When patient arrived to the floor bedside NIHSS was done between this RN and the RN from the ED. 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 The ED RN did not score for these deficits since they were not new per daughter. This RN however did score for those deficits. At NIHSS assessment at 0130 pt scored 3 points higher than admission NIHSS d/t the different scoring of the dysarthria and aphasia as well as the patient being confused. Confusion at night time is normal per daughter. Dr. Daigle notified and decided there is no need for a stroke alert at this time.
[2025-07-31 05:52] LABS: Hematocrit 40.1 % (37-47); Hemoglobin 13.3 g/dL (12.0-15.0); Immature Granulocytes Count 0.020 X10^3/uL (0.0-0.0); Mean Corp Hgb Conc 33.2 g/dL (32-36); Mean Corpuscular Volume 95.5 fL (81-99); Mean Platelet Vol. 11.0 fl (6.2-12.0); NRBC Flagged by Analyzer 0 % (0-5); Platelet Count 217 K/mm3 (150-450); RBC Distribution Width CV 12.2 % (11.6-14.6); RBC Distribution Width SD 42.6 fl (35.1-43.9); Red Blood Count 4.20 M/mm3 (4.2-5.4); White Blood Count 7.2 K/mm3 (4.4-11.0)
[2025-07-31 06:27] LABS: Anion Gap 12 (5-15); BUN 17 mg/dL (4-19); BUN/Creat Ratio 25.7 RATIO (10-20); Calcium,Total 8.7 mg/dL (7.6-11.0); Carbon Dioxide 22.9 mmol/L (21.0-32.0); Chloride 108 mmol/L (98-108); Cholesterol 258 mg/dL (<=200); Estimated Creatinine Clearance 35.59 ml/min (50-250); Glucose 97 mg/dL (70-99); Low Density Lipoprotein Calc. 177 mg/dL; Potassium 3.6 mmol/L (3.3-5.1); Triglycerides 111 mg/dL; Very Low Density Lipoprotein 22 mg/dL (5-40); cholesterol:hdl ratio screen 4.20
[2025-07-31] MEDS: Senna/Docusate Sodium 1 Tablet 2 TABLET PO (09:46)
--- NOTE | 2025-07-31 10:21 | MRI_ITS ---
PROCEDURE: BRAIN WITHOUT CONTRAST 07/31/2025 REASON FOR EXAM: CONCERN FOR CVA TECHNIQUE: Procedure Code: MRIBR Modality: MR Procedure: BRAIN WITHOUT CONTRAST Multiplanar and multisequence images were obtained. COMPARISON: None. FINDINGS: Brain: Foci of restricted diffusion in the left external capsule and coronal radiata consistent with acute infarction. No hemorrhage. No mass-effect or midline shift. Foci of hyperintense signal on T2 and FLAIR which are nonspecific but most likely due to chronic small vessel ischemia. Parenchymal volume loss consistent with brain atrophy. The craniocervical junction is unremarkable. Ventricles: No ventriculomegaly. Major Intracranial Vessels: Patent. Sinuses: Clear. Mastoids: Clear. MRI/Brain without Contrast IMPRESSION: Foci of restricted diffusion in the left external capsule and coronal radiata c onsistent with acute infarction. Reading Location: [facility]
--- NOTE | 2025-07-31 11:20 | CASEMGMT ---
Addendum entered by Elias Perez 07/31/25 17:54: Message sent to Toi @ [facility], notifying her of pt's admission to [facility] and plan for discharge to [facility] on Sunday. Original Note: RN CM general duty nurse CM to room to meet with patient for initial transition planning/care coordination assessment. ANIKET REYES introduced self and role at [facility]. Patient sitting up in chair, daughter, Alyson, @ bedside. Care providers, pharmacy, and demographics verified. Patient wishes to discharge home and interested if HHC if needed, will monitor progress with therapy. PCP: Dr Fabian Specialists: Dr Tomlinson-cardiology Preferred Pharmacy: [facility] Insurance: [facility], AARP Prescription Benefit: yes Living Will/HPOA: Alyson states she and her sister, Tamie, are HCPOA's. She does not think pt has done a LW, but she is not certain. She states will try to locate the documents this evening and bring into [facility] to be placed in pt's chart. LNOK: 2 daughters, Alyson and Tamie. 3 sons. Living Arrangements: Patient lives alone in a single story home with ramp to enter the home. Independent w/ADL's. They have a private-pay caregiver through [employer] that comes in 2 x's/week, 4 hrs a day, that assists pt in the home, they help w/groceries. Pt often eats pre-made meals. Alyson manages pt's medications. Transportation: daughters DME: Patient has shower chair, toilet side rails, cane, medical alert, grab bars, cane, walker, W/C. HHC/SNF: Pt has had HHC in the past. She has been to [facility]. CCN: Pt active w/CCN. PT/OT evals have been completed. Therapy recommending RU. Discussed discharge planning, including RU's & SNF's, HHC, and OP therapy. Information provided re: MCR/insurance benefits. Questions answered. Alyson states would like pt to discharge to [facility] and declines wanting list of other RU's. Pt is agreeable to same. They were made aware of referral process. MRI has been ordered. Plan: [facility], pending acceptance. Bree MARINO RN, CM
--- NOTE | 2025-07-31 13:20 | STROKE.CONS ---
Assessment and Plan: Stroke Assessment/Plan GIA MERRITT is a 89 F with a history of afib who presents for evaluation of L [place] radiata stroke, likely small vessel in etiology vs cardioembolic • The following tests for stroke work-up have been/should be obtained: • Neuroimaging: MRI Brain with L [place] radiata stroke • Vascular imaging: no significant athero • Cardiac testing: not needed • Cardiac monitoring: telemetry while in the hospital • Labs: HgbA1c pending, LDL 177 •Permissive hypertension to goal SBP < 160/80 mm Hg for next week •Anti-platelet medication: cont home xeralto •Statin therapy: unable to take statins as causes transaminitis, rec to start Zetia 10mg •Occupational/Physical therapy consults •NPO until swallow evaluation. IVF until able to take po •DVT prophylaxis with SCDs and heparin SQ. •Vascular risk factor modification. The following are the recommended guidelines: LDL Goal < 70 Smoking Cessation Diabetes management FDC Blood pressure control should achieve <130/80 mmHg outpatient. BP management should aim to achieve intermodal customer service control in a reasonable amount of time, taking into consideration the individual patient's requirements and characteristics. Weight Management: Goal for BMI is 18.5-24.9 kg/m2. Alcohol: No more than 2 drinks/day for men or 1 drink/day for non- women. Promote lifestyle modification: weight control, physical activity, moderation of alcohol intake, moderate sodium intake. I personally attended this patient and spent a total time of 45min evaluating this patient including clinical assessment, review of chart, medical history, and imaging, and determining appropriate treatment and workup. HPI Consult Data Date of Consult: 07/31/25 HPI Narrative HPI Narrative: GIA MERRITT, is a 89-year-old female history of CVA and right MCA distribution, A-fib on Xarelto, hypertension who presented [facility] ED 07/30/2025 due to slurred speech and difficulty walking. Patient was a stroke alert. On arrival temp 97.2, heart rate 84 with a blood pressure 159/58, respiratory rate 19 and pulse ox 99% on room air. CBC largely unremarkable, BMP with BUN of 16 creatinine 0.85 and a glucose of 108, troponin 19. CT brain and CTA head and neck no acute process. Teleneurology did not think she was a lytic candidate due to the recent use of Xarelto and recommended MRI brain/CVA workup. Patient evaluated with daughter at bedside, patient somewhat poor historian but between daughter and patient it seems that she went to the store earlier and was doing fine but when she got back around 345 she felt like her legs were heavy and it was difficult to walk, she meant intermittently was having some difficulty with her speech and reported posterior headache and felt a little bit dizzy and weak. Due to her previous history of stroke they brought her to the ED. Daughter reports speech is still intermittently off, patient feels like both of her legs are still heavy but denies any paresthesias, no upper extremity symptoms, no new facial symptoms, apparently has some residual facial droop from previous stroke. No current headache, no changes in vision. Denies any changes in urination, has had some constipation, eats well and eats balanced, no fevers, abdominal pain, nausea vomiting. Daughter did know earlier today she helped her to the bathroom and she had a couple drops of blood in the toilet they suspect are from hemorrhoids, no heavy bleeding or other bleeding noted in hemoglobin to ED stable Neurologic History Pt was dizzy and had pressure in back of head and both legs were weak - this all hit around 3:30 after walking around. Had stroke 3 yrs ago, February 2022. Affected the R side and had some mental difficulty after. Her voice is back to normal Was slurred yesterday. No missed doses of the xeralto, takes every evening. Exam: - General: Laying comfortably in bed; in no acute distress. - HENT: Normal oropharynx and mucosa. Normal external appearance of ears and nose. Exophthalmos. - Neck: Supple, no pain or tenderness - CV: No peripheral edema. - Pulmonary: Normal respiratory effort. - Ext: No cyanosis, edema, or deformity - Skin: No rash. Normal palpation of skin. - Musculoskeletal: full range of motion; no joint tenderness. Normal digits and nails by inspection. No clubbing. - NEURO: - Mental Status: The patient was alert and oriented to time, place, and person. Normal recent/remote memory, concentration, and general fund of knowledge. - Language: speech is slurred and soft. Naming, repetition, fluency, and comprehension intact. - Cranial Nerves: PERRL 3 mm/brisk. EOMI, visual álvarez full, slight R nasolabial fold flattening,, facial sensation intact, hearing intact, tongue midline, no evidence of atrophy or fibrillations. - Motor: RUE pronation. no drift in b/l UE, no drift in b/l LE - Tone: is normal and bulk is normal - Sensation- Intact to light touch bilaterally in UE, diminished on the RLE - Coordination: mild dysmetria on FTN on the R; no ataxia on HTS - Gait- deferred [facility] Medical History Diarrhea Cellulitis of mid back region Abrasion of right upper back excluding scapular region Longstanding persistent atrial fibrillation Arthritis involving multiple sites Essential hypertension CVA (cerebral vascular accident) (02/15/22) Anxiety GERD (gastroesophageal reflux disease) HLD (hyperlipidemia) Home Medications Medication Instructions Recorded Last Taken Type fluorometholone 0.1 % eye 1 drp ophthalmic (eye) BID PRN Dry 03/02/22 Unknown History drops,suspension Eyes cyanocobalamin (vitamin B-12) 1,000 mcg PO DAILY vitamin 05/08/23 04/18/24 History 1,000 mcg tablet ferrous sulfate 325 mg (65 mg 325 mg PO QODAY supplement 05/08/23 04/18/24 History iron) tablet (Feosol) handicap placard #1 ea 01/23/24 Unknown Rx cholecalciferol (vitamin D3) 25 2,000 unit PO DAILY vitamin 08/08/24 Unknown History mcg (1,000 unit) tablet rivaroxaban 20 mg tablet (Xarelto) 20 mg PO QPM blood thinner #90 tabs 11/20/24 Unknown Rx carvedilol 3.125 mg tablet (Coreg) 3.125 mg PO BID bp #180 tabs 01/28/25 Unknown Rx cetirizine 5 mg tablet 2.5 mg PO QDAY PRN allergy symptoms 06/29/25 Unknown History losartan 100 mg tablet 100 mg PO DAILY blood pressure #90 06/29/25 Unknown Rx tabs Allergy/AdvReac Type Severity Reaction Status Date / Time clindamycin Allergy Other Verified 07/30/25 17:48 hyoscyamine Allergy Other Verified 07/30/25 17:48 Penicillins Allergy Hives Verified 07/30/25 17:48 Mgztfkj-UNR-MfM Reductase Allergy Pain in Verified 07/30/25 17:48 Inhibitor (Ivcogxv-Adz-Nbe joints Reductase Inhibitor) nitrofurantoin (From AdvReac Mild altered Verified 07/30/25 17:48 Macrobid) mental status glucosamine AdvReac Other Verified 07/30/25 17:48 Family History Father Diabetes Hyperlipemia Mother Cancer stomach Brother Parkinson's disease Surgical History Cataract extraction status Social History household members: none current occupational status: retired 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 pets and animals: Yes pets and animals: cat(s) Smoking Status: Never smoker Electronic Cigarette Use: not used alcohol intake: current alcohol intake frequency: holidays/special occasions only substance use type: does not use what type of physical activity do you participate in: other details: gardening do you feel safe at home: Yes Vital Signs Vital Signs Vital Signs: 07/30/25 17:48 07/30/25 17:50 07/30/25 18:08 Temperature 97.2 F L Temperature Source Temporal Pulse Rate 84 84 Respiratory Rate 19 H 19 H Respiratory Effort Respiratory Depth Respiratory Pattern Blood Pressure 159/50 H 159/50 H Blood Pressure Mean 86 86 Blood Pressure Source Blood Pressure Position Blood Pressure Location Pulse Ox 99 99 Oxygen Delivery Method Room Air Room Air Room Air 07/30/25 18:13 07/30/25 18:30 07/30/25 19:00 Temperature Temperature Source Pulse Rate 73 79 76 Respiratory Rate 19 H 20 H 20 H Respiratory Effort Respiratory Depth Respiratory Pattern Blood Pressure 169/81 H 144/73 H 152/65 H Blood Pressure Mean 110 96 94 Blood Pressure Source Blood Pressure Position Blood Pressure Location Pulse Ox 97 97 94 Oxygen Delivery Method Room Air Room Air Room Air 07/30/25 19:07 07/30/25 19:30 07/30/25 19:30 Temperature 98.5 F Temperature Source Pulse Rate 76 74 81 Respiratory Rate 18 19 H 17 Respiratory Effort Respiratory Depth Respiratory Pattern Blood Pressure 152/65 H 136/76 H 142/79 H Blood Pressure Mean 94 96 100 Blood Pressure Source Blood Pressure Position Blood Pressure Location Pulse Ox 94 97 Oxygen Delivery Method Room Air 07/30/25 20:00 07/30/25 20:30 07/30/25 21:30 Temperature 97.5 F L Temperature Source Temporal Pulse Rate 74 77 72 Respiratory Rate 18 16 16 Respiratory Effort Respiratory Depth Respiratory Pattern Blood Pressure 151/61 H 150/80 H 156/69 H Blood Pressure Mean 91 103 98 Blood Pressure Source Monitor Blood Pressure Position Semi-Fowlers Blood Pressure Location Left Arm Pulse Ox 98 98 99 Oxygen Delivery Method Room Air Room Air 07/30/25 21:42 07/30/25 23:28 07/31/25 01:30 Temperature 98.0 F Temperature Source Oral Pulse Rate 71 Respiratory Rate 14 Respiratory Effort Normal Non-Labored Respiratory Depth Normal Respiratory Pattern Normal Blood Pressure 134/69 H Blood Pressure Mean 90 Blood Pressure Source Monitor Blood Pressure Position Semi-Fowlers Blood Pressure Location Left Arm Pulse Ox 94 96 Oxygen Delivery Method Room Air Room Air Room Air 07/31/25 01:38 07/31/25 05:25 07/31/25 09:41 Temperature 98.6 F 98.0 F Temperature Source Oral Oral Pulse Rate 79 76 Respiratory Rate 16 16 Respiratory Effort Normal Non-Labored Respiratory Depth Normal Respiratory Pattern Normal Blood Pressure 152/82 H 160/63 H Blood Pressure Mean 105 95 Blood Pressure Source Monitor Monitor Blood Pressure Position Semi-Fowlers Semi-Fowlers Blood Pressure Location Left Arm Right Arm Pulse Ox 94 97 Oxygen Delivery Method Room Air Room Air Room Air 07/31/25 12:36 Temperature Temperature Source Pulse Rate Respiratory Rate Respiratory Effort Respiratory Depth Respiratory Pattern Blood Pressure Blood Pressure Mean Blood Pressure Source Blood Pressure Position Blood Pressure Location Pulse Ox 96 Oxygen Delivery Method Room Air Weight Weight: 48.8 kg Body Mass Index (BMI) 20.9 EEG Results Procedure Details EEG Procedure Details: GIA MERRITT is a 89 year old F with a past medical history of , who presents for evaluation of Electroencephalogram on DATE at TIME Lab / Micro Data 07/31/25 05:07 07/31/25 05:07 Labs: Laboratory Results - last 24 hr 07/30/25 15:55: WBC 7.6, RBC 4.44, Hgb 14.1, Hct 42.5, MCV 95.7, MCH 31.8, MCHC 33.2, RDW Std Deviation 42.9, RDW Coeff of Palak 12.2, Plt Count 263, MPV 10.7, Immature Gran % (Auto) 0.100, Neut % (Auto) 59.1, Lymph % (Auto) 25.8, Walker % (Auto) 9.3, Eos % (Auto) 4.5, Baso % (Auto) 1.2 H, Absolute Neuts (auto) 4.5, Absolute Lymphs (auto) 1.95, Nucleated RBC % 0, PT 16.1 H, INR 1.3, APTT 26.6, Sodium 143, Potassium 3.8, Chloride 106, Carbon Dioxide 26.5, Anion Gap 10, BUN 16, Creatinine 0.85, Estim Creat Clear Calc 33.49 L, Est GFR (MDRD) Non-Af 67, BUN/Creatinine Ratio 18.3, Glucose 108 H, Calcium 9.1, Troponin T High Sens 19 H 07/30/25 20:30: Troponin T Hi Sens 2 Hr 21 H 07/30/25 20:39: Urine Color Yellow, Urine Clarity Clear, Urine pH 7.0, Ur Specific Rye 1.005, Urine Protein 15 H, Urine Glucose (UA) Normal, Urine Ketones Negative, Urine Occult Blood 50 H, Urine Nitrite Negative, Urine Bilirubin Negative, Urine Urobilinogen Normal, Ur Leukocyte Esterase 500 H, Urine RBC 0-5 SEEN, Urine WBC 5-10 SEEN, Ur Squamous Epith Cells 0-5 SEEN, Urine Bacteria RARE, Urine Mucus 0 SEEN 07/30/25 22:20: Troponin T Hi Sens 4Hr 20 H 07/31/25 05:07: WBC 7.2, RBC 4.20, Hgb 13.3, Hct 40.1, MCV 95.5, MCH 31.7, MCHC 33.2, RDW Std Deviation 42.6, RDW Coeff of Palak 12.2, Plt Count 217, MPV 11.0, Immature Gran % (Auto) 0.300, Neut % (Auto) 62.8, Lymph % (Auto) 20.6, Walker % (Auto) 9.0, Eos % (Auto) 6.0 H, Baso % (Auto) 1.3 H, Absolute Neuts (auto) 4.5, Absolute Lymphs (auto) 1.47, Nucleated RBC % 0, Sodium 143, Potassium 3.6, Chloride 108, Carbon Dioxide 22.9, Anion Gap 12, BUN 17, Creatinine 0.64 L, Estim Creat Clear Calc 35.59 L, Est GFR (MDRD) Non-Af 85, BUN/Creatinine Ratio 25.7 H, Glucose 97, Calcium 8.7, Triglycerides 111, Cholesterol 258 H, LDL Cholesterol, Calc 177, VLDL Cholesterol 22, HDL Cholesterol 61, Cholesterol/HDL Ratio 4.20, TSH 1.450 Micro: Microbiology 07/30/25 20:39 Urine, Random Urine Culture - Preliminary 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 Critical results were communicated to Dr. Magana at 6 p.m.. Reading Location: [address] Head/Neck CTA 07/30/25 17:49 IMPRESSION: No hemodynamically significant stenosis in the head and neck. Reading Location: [facility] Brain MRI 07/31/25 10:21 IMPRESSION: Foci of restricted diffusion in the left external capsule and coronal radiata consistent with acute infarction. Reading Location: [facility] Active Medications Active Medications Active Medications: Current Medications Generic Name Dose Route Start Last Admin Trade Name Freq PRN Reason Stop Dose Admin Acetaminophen 650 mg 07/30/25 20:55 Acetaminophen 325 Mg Tablet PO Q6H PRN PRN Pain 1-10 Or Fever >100.7 Albuterol Sulfate 2.5 mg 07/30/25 20:55 Albuterol 2.5 Mg/3 Ml Vial.Neb. INHALATION Q2H PRN PRN SOB &/OR WHEEZING Carvedilol 3.125 mg 07/31/25 08:00 07/31/25 11:16 Carvedilol 3.125 Mg Tablet PO 3.125 mg BIDCM [facility] Administration Protocol Clarify Med Order 1 each 07/30/25 22:00 07/30/25 22:41 Clarify Order NOTE Not Given CLARIFY YUNIEL Ferrous Sulfate 325 mg 08/01/25 12:00 Ferrous Sulfate 325 Mg Tablet PO Q48@1200 [facility] Hydralazine HCl 5 mg 07/30/25 20:55 Hydralazine 20 Mg/Ml Vial IV 07/31/25 20:55 Q30M PRN maintain BP parameters with HR <60 Sodium Chloride 250 mls @ 15 mls/hr 07/30/25 20:56 IV .[id number] PRN Saline Flush Sodium Chloride 250 mls @ 15 mls/hr 07/30/25 20:56 IV .[id number] PRN Additional IVPB Infusion Labetalol HCl 20 mg 07/30/25 17:48 Labetalol 20 Mg/4 Ml Vial IV 07/31/25 17:48 X1 PRN BLOOD PRESSURE Labetalol HCl 10 - 20 mg 07/30/25 20:55 Labetalol 20 Mg/4 Ml Vial IV 07/31/25 20:55 Q10M PRN PRN maintain BP parameters with HR >/=60 Melatonin 10 mg 07/30/25 22:00 07/30/25 21:47 Melatonin 10 Mg Tablet PO Not Given QHS YUNIEL Non-Formulary Medication 1 drp 07/30/25 20:55 Fluorometholone OPHTHALMIC BID PRN Dry Eyes Ondansetron HCl 4 mg 07/30/25 20:55 Ondansetron 4 Mg/2 Ml Vial IV Q8H PRN PRN NAUSEA/VOMITING Rivaroxaban 15 mg 07/30/25 21:00 07/30/25 21:46 Rivaroxaban 15 Mg Tablet PO 15 mg DINNER YUNIEL Administration Senna/Docusate Sodium 2 tablet 07/30/25 22:00 07/31/25 09:46 Senna/Docusate Sodium 1 Tablet PO 2 tablet BID YUNIEL Administration Sodium Chloride 10 - 40 ml 07/30/25 20:56 07/30/25 21:48 0.9% Saline Lock 10 Ml Syringe IV 10 ml UD PRN Administration SALINE FLUSH NIHSS NIHSS Nursing Documentation NIHSS Nursing Documentation: NIHSS: Ischemic Stroke/TIA Start: 07/30/25 20:55 Text: For PCU Patients: NIH and Neuro Check every 4 Status: Active hours, PRN and with change in RN caregiver. Freq: [id number] Protocol: Activity Type Activity Date Activity User E-sign Co-sign Detail Recorded Client Recorded Date Recorded By Document 07/31/25 10:00 RV desktop 07/31/25 10:15 RV 07/31/25 10:00 NIH Stroke Scale [NIHSS] A score of 0 is "normal" or asymptomatic . Total possible score is 42. Inpatient: RN or Physician to activate a stroke alert for onset of new stroke symptoms or with NIHSS increase >/= 3 points. Following change in neurological status, NIHSS will be performed per physician order or more frequently PRN. -1a. Level of Consciousness 0 - Alert; keenly responsive -1b. LOC Questions 1 - Answers ONE question correctly -1c. LOC Commands 0 - Performs BOTH tasks correctly -2. Best Gaze 0 - Normal -3. Visual 0 - No visual loss -4. Facial Palsy 0 - Normal symmetrical movements -5a. Left Arm 0 - No drift; arm holds 90 ( or 45) degrees for full 10 seconds -5b. Right Arm 0 - No drift; arm holds 90 ( or 45) degrees for full 10 seconds -6a. Left Leg 0 - No drift; leg holds 30- degree position for full 5 seconds -6b. Right Leg 0 - No drift; leg holds 30- degree position for full 5 seconds -7. Limb Ataxia 0 - Absent -8. Sensory 0 - Normal; no sensory loss -9. Best Language 1 - Mild-to- moderate aphasia; -10. Dysarthria 0 - Normal -11. Extinction and Inattention 0 - No abnormality -Total 2 Query Text:A score of 0 is "normal" or asymptomatic. Total possible score is 42 . ED: Notify Physician for NIHSS increase by > / = 3 points. Inpatient: RN or Physician to activate a stroke alert for NIHSS increase of > / = 3 points. Coma Scale [Assess] -Eye Opening Spontaneous -Motor Obeys Commands -Verbal Confused [Total] -Coma Scale Total 14 NIHSS 1a. Level of Consciousness: 0 - Alert; keenly responsive 1b. LOC Questions: 0 - Answers BOTH questions correctly 1c. LOC Commands: 0 - Performs BOTH tasks correctly 2. Best Gaze: 0 - Normal 3. Visual: 0 - No visual loss 4. Facial Palsy: 1 - Minor paralysis (flattened nasolabial fold, asymmetry on smiling) 5a. Left Arm: 0 - No drift; arm holds 90 (or 45) degrees for full 10 seconds 5b. Right Arm: 0 - No drift; arm holds 90 (or 45) degrees for full 10 seconds 6a. Left Le - No drift; leg holds 30-degree position for full 5 seconds 6b. Right Le - No drift; leg holds 30-degree position for full 5 seconds 7. Limb Ataxia: 1 - Present in 1 limb 8. Sensory: 1 - Ocsp-vy-[id number] sensory loss; 9. Best Language: 0 - No aphasia; normal 10. Dysarthria: 1 = Ykjp-yp-spyedyek dysarthria; 11. Extinction and Inattention: 0 - No abnormality
--- NOTE | 2025-07-31 14:10 | CASEMGMT ---
Social Work SW spoke with the patient and completed a PHQ9. Patient scored a 0. Patient reported having no thoughts of harming herself. She reported she would not do that to her children. She reported she enjoys life. Patient lives at home alone but her daughters live close by. Patient has private caregivers 2 days a week for 4 hours. Patient is still active with gardening. Patient does not drive. Patient attends yarsani with her neighbor. Her neighbors help her if needed. She likes to [employer]. GOOD Hernandez
--- NOTE | 2025-07-31 15:48 | CASEMGMT ---
Addendum entered by Elias Perez 07/31/25 17:54: Plan: [facility] on Sunday. Original Note: ANIKET REYES NOTE: Message received from Poonam for [facility]. Pt has been accepted to RU and can discharge there on Sunday. Dr Johnson made aware. ANIKET REYES to room. Pt and daughter, Alyson, in room. They were notified as well. Questions answered. Daughter provided w/RU's visiting hours. They deny having further questions or needs. Green sheet placed on chart for [facility]. Bree SALDANAN ANIKET REYES
--- NOTE | 2025-07-31 18:27 | PCM.PN.HOSP ---
Reason for Visit Chief Complaint: heavy legs Subjective Subjective Patient was seen and examined today, I talked extensively with the patient's 2 daughters 1 of whom was in the room the other 1 by phone. MRI showed the patient to have an acute ischemic stroke in the left external capsule and [place] radiata, patient's echocardiogram showed mild pulmonary hypertension, mild to moderate mitral valve insufficiency and moderate tricuspid insufficiency. Patient's EF was normal. Objective Data Objective Data Vital Signs: Vital Signs Temp Pulse Resp BP Pulse Ox O2 Del Method 97.7 F L 86 16 173/90 H 97 Room Air 07/31/25 16:54 07/31/25 16:54 07/31/25 16:54 07/31/25 16:54 07/31/25 16:54 07/31/25 16:54 Oxygen Delivery Method Room Air Weight: 48.8 kg Body Mass Index (BMI) 20.9 Intake & Output: Intake and Output for Last 24 Hours 07/29/25 07/30/25 07/31/25 23:59 23:59 23:59 Intake Total 300 / 300 599.17 / 599.17 Balance 300 / 300 599.17 / 599.17 Lab / Micro Data 07/31/25 05:07 07/31/25 05:07 Labs: Laboratory Results - last 24 hr 07/30/25 15:55: Sodium 143, Potassium 3.8, Chloride 106, Carbon Dioxide 26.5, Anion Gap 10, BUN 16, Creatinine 0.85, Estim Creat Clear Calc 33.49 L, Est GFR (MDRD) Non-Af 67, BUN/Creatinine Ratio 18.3, Glucose 108 H, Calcium 9.1, Troponin T High Sens 19 H 07/30/25 20:30: Troponin T Hi Sens 2 Hr 21 H 07/30/25 20:39: Urine Color Yellow, Urine Clarity Clear, Urine pH 7.0, Ur Specific Douglas 1.005, Urine Protein 15 H, Urine Glucose (UA) Normal, Urine Ketones Negative, Urine Occult Blood 50 H, Urine Nitrite Negative, Urine Bilirubin Negative, Urine Urobilinogen Normal, Ur Leukocyte Esterase 500 H, Urine RBC 0-5 SEEN, Urine WBC 5-10 SEEN, Ur Squamous Epith Cells 0-5 SEEN, Urine Bacteria RARE, Urine Mucus 0 SEEN 07/30/25 22:20: Troponin T Hi Sens 4Hr 20 H 07/31/25 05:07: WBC 7.2, RBC 4.20, Hgb 13.3, Hct 40.1, MCV 95.5, MCH 31.7, MCHC 33.2, RDW Std Deviation 42.6, RDW Coeff of Palak 12.2, Plt Count 217, MPV 11.0, Immature Gran % (Auto) 0.300, Neut % (Auto) 62.8, Lymph % (Auto) 20.6, [place] % (Auto) 9.0, Eos % (Auto) 6.0 H, Baso % (Auto) 1.3 H, Absolute Neuts (auto) 4.5, Absolute Lymphs (auto) 1.47, Nucleated RBC % 0, Sodium 143, Potassium 3.6, Chloride 108, Carbon Dioxide 22.9, Anion Gap 12, BUN 17, Creatinine 0.64 L, Estim Creat Clear Calc 35.59 L, Est GFR (MDRD) Non-Af 85, BUN/Creatinine Ratio 25.7 H, Glucose 97, Calcium 8.7, Triglycerides 111, Cholesterol 258 H, LDL Cholesterol, Calc 177, VLDL Cholesterol 22, HDL Cholesterol 61, Cholesterol/HDL Ratio 4.20, TSH 1.450 Micro: Microbiology 07/30/25 20:39 Urine, Random Urine Culture - Preliminary GNR 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 Reading Location: [facility] Echocardiogram 07/30/25 20:55 Interpretation Summary The left ventricular ejection fraction is 60 %. The left atrium is severely enlarged. The right atrium is moderately enlarged. Mild-Moderate (1-2+) mitral valve insufficiency. Moderate (2+) tricuspid valve insufficiency. Aortic sclerosis, no stenosis. Mild (1+) aortic valve insufficiency. Ordering Physician: Jody Moffett Performed By: Barrie Bass [facility] Brain MRI 07/31/25 10:21 IMPRESSION: Foci of restricted diffusion in the left external capsule and coronal radiata consistent with acute infarction. Reading Location: [facility] Physical Exam Const alert and no apparent distress General Appearance: cooperative, well kempt and well developed Orientation / Consciousness: awake, oriented to person and oriented to place HEENT normocephalic, head/scalp atraumatic and moist oral mucous membranes Eyes PERRL, EOMs intact bilaterally and conjunctivae normal Neck supple, no JVD, thyroid normal and no carotid bruits General: trachea midline Resp normal respiratory effort, no retractions, no use of accessory muscles and clear to auscultation bilaterally Auscultation: Negative for rales, rhonchi or wheezes Cardio regular rate, regular rhythm, S1 normal heart sound, S2 normal heart sound, no murmurs, no rub and no gallops GI normal to inspection, nondistended, normoactive bowel sounds, soft to palpation, non-tender and non-distended Extremity no clubbing, cyanosis or edema Skin no rashes or lesions noted General Skin Exam: no breakdown Neuro CN's II-XII intact bilaterally, moves all extremities, no focal motor deficits and no sensory deficits noted Sensorium / Orientation: awake, alert, oriented to person and oriented to place Speech: speech normal Psych Psych Narrative: Patient exhibits mild confusion Assessment & Plan Assessment/Plan (1) CVA (cerebral vascular accident): QUALIFIERS: CVA mechanism: unspecified Qualified Code(s): I63.9 - Cerebral infarction, unspecified PLAN: Plan 1. Acute ischemic stroke left external capsule and fair[place] radiata-PT and OT will continue to see the patient, it was not recommended that she be on an aspirin due to her use of Xarelto. Patient's daughters do not want the patient to be on a statin, she did not tolerate a statin in the past and according to 1 daughter she had "liver problems" with the statin. It was recommended the patient be put on Zetia, the daughters are okay with this, I recommended bempedoic acid consideration as an outpatient. The other medication I mentioned was Repatha. Daughter is going to talk with her family doctor as an outpatient to decide what is best for the patient to take. Patient has been accepted in the rehab unit here at the hospital but will not be ready for discharge there until Sunday according to the rehab doctor. #2 cognitive impairment-this appears to be mainly chronic in nature and could be early dementia, no treatment at this time is indicated #3 permanent atrial fibrillation-patient is on Xarelto and rate limiting agent #4 essential hypertension-patient is on carvedilol and losartan Total clinical time spent by myself addressing the patient's medical issues, reviewing all of her data, and collaborating with patient's care team: 35 minutes Charges/Coding Visit Charges Inpatient E&M: 19628 Subs Hosp L2 NIHSS NIHSS Nursing Documentation NIHSS Nursing Documentation: NIHSS: Ischemic Stroke/TIA Start: 07/30/25 20:55 Text: For PCU Patients: NIH and Neuro Check every 4 Status: Active hours, PRN and with change in RN caregiver. Freq: [id number] Protocol: Activity Type Activity Date Activity User E-sign Co-sign Detail Recorded Client Recorded Date Recorded By Document 07/31/25 18:00 [id number] 07/31/25 18:06 RV 07/31/25 18:00 NIH Stroke Scale [NIHSS] A score of 0 is "normal" or asymptomatic . Total possible score is 42. Inpatient: RN or Physician to activate a stroke alert for onset of new stroke symptoms or with NIHSS increase >/= 3 points. Following change in neurological status, NIHSS will be performed per physician order or more frequently PRN. -1a. Level of Consciousness 0 - Alert; keenly responsive -1b. LOC Questions 1 - Answers ONE question correctly -1c. LOC Commands 0 - Performs BOTH tasks correctly -2. Best Gaze 0 - Normal -3. Visual 0 - No visual loss -4. Facial Palsy 0 - Normal symmetrical movements -5a. Left Arm 0 - No drift; arm holds 90 ( or 45) degrees for full 10 seconds -5b. Right Arm 0 - No drift; arm holds 90 ( or 45) degrees for full 10 seconds -6a. Left Leg 0 - No drift; leg holds 30- degree position for full 5 seconds -6b. Right Leg 0 - No drift; leg holds 30- degree position for full 5 seconds -7. Limb Ataxia 0 - Absent -8. Sensory 1 - Mild-to- moderate sensory loss; -9. Best Language 0 - No aphasia; normal -10. Dysarthria 1 = Mild-to- moderate dysarthria; -11. Extinction and Inattention 0 - No abnormality -Total 3 Query Text:A score of 0 is "normal" or asymptomatic. Total possible score is 42 . ED: Notify Physician for NIHSS increase by > / = 3 points. Inpatient: RN or Physician to activate a stroke alert for NIHSS increase of > / = 3 points. Coma Scale [Assess] -Eye Opening Spontaneous -Motor Obeys Commands -Verbal Confused [Total] -Coma Scale Total 14
[2025-07-31] MEDS: MELATONIN 10 MG TABLET PO (20:16)
[2025-08-01 01:53] VITALS: BP 156/74; PULSE 48; RESP 16; TEMP 36.4; O2SAT 97
[2025-08-01 02:13] VITALS: BMI 20.9
[2025-08-01 05:41] VITALS: BP 158/66; PULSE 84; RESP 18; TEMP 36.4; O2SAT 98
[2025-08-01 08:30] VITALS: BMI 20.9
--- NOTE | 2025-08-01 09:11 | PN.HOSP_ITS ---
Reason for Visit Chief Complaint: heavy legs Subjective Subjective Patient was seen and examined today, she voices no complaints this examiner. Objective Data Objective Data Vital Signs: Vital Signs Temp Pulse Resp BP Pulse Ox O2 Del Method 97.5 F L 84 18 158/66 H 98 Room Air 08/01/25 05:41 08/01/25 05:41 08/01/25 05:41 08/01/25 05:41 08/01/25 05:41 08/01/25 08:30 Oxygen Delivery Method Room Air Weight: 48.8 kg Body Mass Index (BMI) 20.9 Intake & Output: Intake and Output for Last 24 Hours 07/30/25 07/31/25 08/01/25 23:59 23:59 23:59 Intake Total 300 / 300 599.17 / 599.17 Balance 300 / 300 599.17 / 599.17 Lab / Micro Data 07/31/25 05:07 07/31/25 05:07 Micro: Microbiology 07/30/25 20:39 Urine, Random Urine Culture - Final Escherichia coli Radiography Diagnostic Testing: Radiology Impression Echocardiogram 07/30/25 20:55 Interpretation Summary The left ventricular ejection fraction is 60 %. The left atrium is severely enlarged. The right atrium is moderately enlarged. Mild-Moderate (1-2+) mitral valve insufficiency. Moderate (2+) tricuspid valve insufficiency. Aortic sclerosis, no stenosis. Mild (1+) aortic valve insufficiency. Ordering Physician: Jody Moffett Performed By: Barrie Bass [facility] Brain MRI 07/31/25 10:21 IMPRESSION: Foci of restricted diffusion in the left external capsule and coronal radiata consistent with acute infarction. Reading Location: [facility] Physical Exam Narrative alert and no apparent distress General Appearance: cooperative, well kempt and well developed Orientation / Consciousness: awake, oriented to person and oriented to place HEENT normocephalic, head/scalp atraumatic and moist oral mucous membranes Eyes PERRL, EOMs intact bilaterally and conjunctivae normal Neck supple, no JVD, thyroid normal and no carotid bruits General: trachea midline Resp normal respiratory effort, no retractions, no use of accessory muscles and clear to auscultation bilaterally Auscultation: Negative for rales, rhonchi or wheezes Cardio irregular rate, irregular rhythm, S1 normal heart sound, S2 normal heart sound, no murmurs, no rub and no gallops GI normal to inspection, nondistended, normoactive bowel sounds, soft to palpation, non-tender and non-distended Extremity no clubbing, cyanosis or edema Skin no rashes or lesions noted General Skin Exam: no breakdown Neuro CN's II-XII intact bilaterally, moves all extremities, no focal motor deficits and no sensory deficits noted Sensorium / Orientation: awake, alert, oriented to person and oriented to place Speech: speech normal Psych Psych Narrative: Patient exhibits mild confusion Assessment & Plan Assessment/Plan (1) CVA (cerebral vascular accident): QUALIFIERS: CVA mechanism: unspecified Qualified Code(s): I63.9 - Cerebral infarction, unspecified PLAN: Plan 1. Acute ischemic stroke left external capsule and [place] radiata-PT and OT will continue to see the patient, it was not recommended that she be on an aspirin due to her use of Xarelto. Patient remains on Zetia at the request of her daughters due to concerns of intolerance of statins. #2 cognitive impairment-this appears to be mainly chronic in nature and could be early dementia, no treatment at this time is indicated #3 permanent atrial fibrillation-patient is on Xarelto and rate limiting agent #4 essential hypertension-patient is on carvedilol and losartan Total clinical time spent by myself addressing the patient's medical issues, reviewing all of her data, and collaborating with patient's care team: 35 minutes Charges/Coding Visit Charges Inpatient E&M: 43827 Subs Hosp L2 NIHSS NIHSS Nursing Documentation NIHSS Nursing Documentation: NIHSS: Ischemic Stroke/TIA Start: 07/30/25 20:55 Text: For PCU Patients: NIH and Neuro Check every 4 Status: Active hours, PRN and with change in RN caregiver. Freq: [id number] Protocol: Activity Type Activity Date Activity User E-sign Co-sign Detail Recorded Client Recorded Date Recorded By Document 08/01/25 07:19 VIRGINIE [id number] 08/01/25 07:19 VIRGINIE 08/01/25 07:19 NIH Stroke Scale [NIHSS] A score of 0 is "normal" or asymptomatic . Total possible score is 42. Inpatient: RN or Physician to activate a stroke alert for onset of new stroke symptoms or with NIHSS increase >/= 3 points. Following change in neurological status, NIHSS will be performed per physician order or more frequently PRN. -1a. Level of Consciousness 0 - Alert; keenly responsive -1b. LOC Questions 0 - Answers BOTH questions correctly -1c. LOC Commands 0 - Performs BOTH tasks correctly -2. Best Gaze 0 - Normal -3. Visual 0 - No visual loss -4. Facial Palsy 1 - Minor paralysis ( flattened nasolabial fold , asymmetry on smiling) -5a. Left Arm 0 - No drift; arm holds 90 ( or 45) degrees for full 10 seconds -5b. Right Arm 0 - No drift; arm holds 90 ( or 45) degrees for full 10 seconds -6a. Left Leg 0 - No drift; leg holds 30- degree position for full 5 seconds -6b. Right Leg 0 - No drift; leg holds 30- degree position for full 5 seconds -7. Limb Ataxia 0 - Absent -8. Sensory 0 - Normal; no sensory loss -9. Best Language 0 - No aphasia; normal -10. Dysarthria 1 = Mild-to- moderate dysarthria; -11. Extinction and Inattention 0 - No abnormality -Total 2 Query Text:A score of 0 is "normal" or asymptomatic. Total possible score is 42 . ED: Notify Physician for NIHSS increase by > / = 3 points. Inpatient: RN or Physician to activate a stroke alert for NIHSS increase of > / = 3 points. Coma Scale [Assess] -Eye Opening Spontaneous -Motor Obeys Commands -Verbal Confused [Total] -Coma Scale Total 14
[2025-08-01 11:30] VITALS: BP 154/89; PULSE 75; RESP 18; TEMP 36.8; O2SAT 97
[2025-08-01] MEDS: Senna/Docusate Sodium 1 Tablet 2 TABLET PO ×2 (11:34→22:36)
[2025-08-01 15:30] VITALS: BP 167/90; PULSE 78; RESP 15; TEMP 36.7; O2SAT 98
[2025-08-01 19:20] VITALS: BP 149/74; PULSE 73; RESP 18; TEMP 36.4; O2SAT 95
[2025-08-01 22:31] VITALS: BP 142/81; PULSE 86; RESP 18; TEMP 36.1; O2SAT 96
[2025-08-01] MEDS: Fluorometholone 0.1% Susp 1 DRP DROPS EACH EYE (22:36)
[2025-08-01] MEDS: MELATONIN 10 MG TABLET PO (22:36)
[2025-08-02 02:30] VITALS: BP 137/58; PULSE 65; RESP 18; TEMP 36.1; O2SAT 96
[2025-08-02 06:00] VITALS: BP 140/67; PULSE 69; RESP 18; TEMP 35.8; O2SAT 96
[2025-08-02] MEDS: Fluorometholone 0.1% Susp 1 DRP DROPS EACH EYE (09:29)
[2025-08-02 09:36] VITALS: BP 134/75; PULSE 80; RESP 15; TEMP 36.6; O2SAT 99
--- NOTE | 2025-08-02 11:31 | PCM.TXEXTCAR ---
Diet Diet Order/Speech Therapy: INPATIENT Hospital Diet / Speech Therapy Order(s) 07/30/25 20:55 Diet: Cardiac - Heart Healthy Food consistency:: Regular Liquid Consistency:: Regular/Thin Routine Orders/Code Status Code Status: Full Code DC O2, CPAP, BIPAP needs Home O2 Discharge instructions: No Therapies Weight Bearing: Full weight bearing Physical Therapy: Eval and Treat Occupational Therapy: Eval and Treat Problem/Diagnosis (1) CVA (cerebral vascular accident): Status: Acute Code(s): I63.9 - Cerebral infarction, unspecified Comment: Right MCA subtotal thrombus CTA HEAD/NECK 02/15/2022; MRI with acute stroke in right basal ganglia with petechial hemorrhage, right frontal lobe and in the parenchyma lateral to the trigone of right lateral ventricle MRI 02/17/22 Plan 1. Acute ischemic stroke left external capsule and fair[place] radiata-PT and OT will continue to see the patient, it was not recommended that she be on an aspirin due to her use of Xarelto. Patient remains on Zetia at the request of her daughters due to concerns of intolerance of statins. #2 cognitive impairment-this appears to be mainly chronic in nature and could be early dementia, no treatment at this time is indicated #3 permanent atrial fibrillation-patient is on Xarelto and rate limiting agent #4 essential hypertension-patient is on carvedilol and losartan Total clinical time spent by myself addressing the patient's medical issues, reviewing all of her data, and collaborating with patient's care team: 35 minutes Allergies/Procedures Done in Hospital Allergies clindamycin Allergy (Verified 07/30/25 17:48) Other hyoscyamine Allergy (Verified 07/30/25 17:48) Other Penicillins Allergy (Verified 07/30/25 17:48) Hives Xaoruyb-BLK-GyH Reductase Inhibitor (Svbvncw-Vqb-Euv Reductase Inhibitor) Allergy (Verified 07/31/25 15:41) Pain in joints increased liver enzymes nitrofurantoin (From Macrobid) Adverse Reaction (Mild, Verified 07/30/25 17:48) altered mental status glucosamine Adverse Reaction (Verified 07/30/25 17:48) Other Procedures: 2-D Echocardiogram Type of Care/Length of Stay Estimated LOS: Convalescent Care Less Than 30 days Type of Care Needed: Acute Rehab Rehab Potential: Good Prognosis: Good Additional Orders/Day of Discharge H&P will serve as current which was dated: 07/30/25 Day of Discharge: 08/02/25 Dietary and Speech Recommendations Dietitian Recommendations/Changes: Continue cardiac diet. Will monitor weight trends. Discharge Plan Admission Admit Date/Time: 07/31/25 14:42 Primary Reason for Your Visit: Ischemic stroke Attending Provider: Irwin Emmanuel Primary Care Provider: Deepika Fabian Consulting Providers: Abundio Bettencourt; Kale Nichols; Kaye Marshall; Sara Frank; Natali Thompson; Efrain Lake; Cori Pleitez; Jean-Claude Hedrick; Eric Grande; Thomas Palencia; Meena Singh; Nathalie Cantu; Charles Soemrs; Carey Garza; Alcira Garcia; Toshia Hugheszat; Tobi Blanco; Bethany Eastman; Behzad Veronica; Alison Garibay; Bakari Bell; Jody Moffett Discharge Orders/Prescriptions Prescriptions: New ezetimibe 10 mg Tablet 10 mg PO DAILY Qty: 0 0RF melatonin 10 mg Tablet,Disintegrating 10 mg PO QHS Qty: 0 0RF sennosides-docusate sodium [Stimulant Laxative Plus] 8.6-50 mg Tablet 2 tab PO BID Qty: 0 0RF Continued fluorometholone 0.1 % drops,suspension 1 drp ophthalmic (eye) BID PRN (Reason: Dry Eyes) cyanocobalamin (vitamin B-12) 1,000 mcg tablet 1,000 mcg PO DAILY ferrous sulfate [Feosol] 325 mg (65 mg iron) tablet 325 mg PO QODAY (DME) handicap placard See Rx Instructions .ROUTE .MEDSUPPLY Qty: 1 0RF Rx Instructions: Length of time: 5 years Diagnosis: Impaired physical mobility Z74.09 carvedilol [Coreg] 3.125 mg tablet 3.125 mg PO BID Qty: 180 3RF Rx Instructions: must administer with a meal/food losartan 100 mg tablet 100 mg PO DAILY Qty: 90 1RF cholecalciferol (vitamin D3) 25 mcg (1,000 unit) tablet 2,000 unit PO DAILY Xarelto 20 mg tablet 20 mg PO QPM Qty: 90 3RF Rx Instructions: must administer with evening meal Discontinued cetirizine 5 mg tablet 2.5 mg PO QDAY PRN (Reason: allergy symptoms) Referrals / Follow Up: Deepika Fabian MD [Primary Care Provider, Internal Medicine] Disposition Disposition (needs filled in before D/C Order can be placed): Inpatient Rehab Unit/Facility (1) CVA (cerebral vascular accident) Qualifiers: CVA mechanism: unspecified Qualified Code(s): I63.9 - Cerebral infarction, unspecified
--- NOTE | 2025-08-02 11:35 | PCM.DC.SUM ---
Providers Date of Admission: 07/31/25 Date of Discharge: 08/02/25 Primary Care Physician: Dr. Deepika Fabian MD Consultations 07/30/25 20:55 Consult: Tele-Neurology Routine Consulting Provider: [facility] Reason for Consult: Acute Ischemic Stroke/TIA EMERGENT Consult: No MD Notified: Yes Date Notified: 07/31/25 Time Notified: 02:40 Method of Notification: Answering Service Nursing Unit Staff Notify [facility] of Tele-Neurology Consult: Yes Reason For Visit: CVA R/O Diagnosis Discharge Diagnosis (1) CVA (cerebral vascular accident): Status: Acute Code(s): I63.9 - Cerebral infarction, unspecified Qualifiers: CVA mechanism: unspecified Qualified Code(s): I63.9 - Cerebral infarction, unspecified Plan 1. Acute ischemic stroke left external capsule and fairbanks radiata-PT and OT will continue to see the patient, it was not recommended that she be on an aspirin due to her use of Xarelto. Patient remains on Zetia at the request of her daughters due to concerns of intolerance of statins. #2 cognitive impairment/dementia #3 permanent atrial fibrillation-patient is on Xarelto and rate limiting agent #4 essential hypertension-patient is on carvedilol and losartan Total clinical time spent by myself addressing the patient's medical issues, reviewing all of her data, and collaborating with patient's care team: 35 minutes Medications at Discharge Home Medications fluorometholone 0.1 % eye drops,suspension 1 drp ophthalmic (eye) BID PRN Dry Eyes 03/02/22 cyanocobalamin (vitamin B-12) 1,000 mcg tablet 1,000 mcg PO DAILY vitamin 05/08/23 ferrous sulfate 325 mg (65 mg iron) tablet (Feosol) 325 mg PO QODAY supplement 05/08/23 handicap placard #1 ea 01/23/24 cholecalciferol (vitamin D3) 25 mcg (1,000 unit) tablet 2,000 unit PO DAILY vitamin 08/08/24 rivaroxaban 20 mg tablet (Xarelto) 20 mg PO QPM blood thinner #90 tabs 11/20/24 carvedilol 3.125 mg tablet (Coreg) 3.125 mg PO BID bp #180 tabs 01/28/25 losartan 100 mg tablet 100 mg PO DAILY blood pressure #90 tabs 06/29/25 ezetimibe 10 mg tablet 10 mg PO DAILY #0 tabs 08/02/25 melatonin 10 mg disintegrating tablet 10 mg PO QHS #0 tabs 08/02/25 sennosides 8.6 mg-docusate sodium 50 mg tablet (Stimulant Laxative Plus) 2 tab PO BID #0 tabs 08/02/25 Hospital Course Operations None Procedures 2-D Echocardiogram Summary of Care Provided Minutes Spent on Discharge: 31 Hospital Course: This 89-year-old white female was seen in the emergency room at [facility] with complaints of slurred speech, facial droop, and disorientation. Patient had a past history of a prior stroke involving the right MCA distribution, she has a history of persistent atrial fibrillation and is on Xarelto. A stroke alert was called from triage, patient was not a TNK candidate due to the fact that she is on chronic Xarelto. The emergency room physician talked with the stroke teleneurologist by phone, patient's NIH was 2, he recommended an MRI to rule out a new stroke or extension of prior past stroke. Labs obtained in the emergency room were remarkable only for troponin of [address] of the head and neck showed no hemodynamically significant stenosis in the head and neck, head CT showed severe global parenchymal atrophy and periventricular white matter hypodensity likely representing a severe chronic microvascular ischemia. No acute hemorrhage or infarction was noted. Patient was admitted to PCU, she was seen by teleneurology who recommended continuing her Xarelto and placing her on Zetia due to statin intolerance, PT and OT saw the patient, the following day she underwent an MRI which showed an acute ischemic stroke in the left internal capsule and fairbanks radiata. It was felt that the patient would benefit from short-term stay in the rehab unit at [facility] for rehab services, patient and patient's family agreed. On 08/02/2025, patient was seen and examined: On examination she appeared in good health and spirits, she does not appear to be in any distress. Vital signs as documented. Skin warm and dry and without overt rashes. Neck without JVD, thyroid appears normal, trachea is midline, neck is supple. Lungs clear, normal air movement was noted. Heart exam notable for irregular rhythm and rate, normal sounds and absence of murmurs, rubs or gallops. Abdomen unremarkable and without evidence of organomegaly, masses, or abdominal aortic enlargement, bowel sounds are present in all 4 quadrants, no abdominal tenderness was noted. Extremities nonedematous, no cyanosis was noted, no clubbing was noted. Neuro: Cranial nerves II through XII are grossly intact, no focal motor deficits were noted, sensation to light touch and pinprick is intact, motor exam 5/5 throughout. Psych: Patient is alert and oriented x3, she does not appear anxious or depressed, she does not appear agitated. Patient was transferred to the rehab unit at [facility] in stable condition on 08/02/2025. Weight / BMI Weight Weight: 48.8 kg Body Mass Index (BMI) 20.9 ABG / Lab / Microbiology Data 07/31/25 05:07 07/31/25 05:07 Microbiology: Microbiology 07/30/25 20:39 Urine, Random Urine Culture - Final Escherichia coli D/C Instructions DC O2, CPAP, BIPAP Needs Home O2 Discharge instructions: No Meaningful Use Info Meaningful Use Meaningful Use Diagnoses (Choose all that apply): Ischemic CVA CVA Therapy Assessed for PT,OT and/or ST?: Yes Ischemic Stroke Antithrombotic order at d/c?: No Reason antithrombotic not ordered: Treatment not Indicated Dx of Atrial fib/flutter?: Yes Anticoagulant at discharge?: Yes Statins at discharge?: No Reason Statin not ordered: Adverse Reaction to Drug Primary Dx Acute Ischemic CVA?: Yes Discharge Plan Admission Admit Date/Time: 07/31/25 14:42 Primary Reason for Your Visit: Ischemic stroke Attending Provider: Irwin Emmanuel Primary Care Provider: Deepika Fabian Consulting Providers: Abundio Bettencourt; Kale Nichols; Kaye Marshall; Sara Frank; Natali Thompson; Efrain Lake; Cori Pleitez; Jean-Claude Hedrick; Eric Grande; Thomas Palencia; Meena Singh; Nathalie Cantu; Charles Somers; Carey Garza; Alcira Garcia; Toshia Hughes; Tobi Blanco; Bethany Eastman; Behzad Veronica; Alison Garibay; Arabella,Bakari; Jody Moffett Discharge Orders/Prescriptions Prescriptions: New ezetimibe 10 mg Tablet 10 mg PO DAILY Qty: 0 0RF melatonin 10 mg Tablet,Disintegrating 10 mg PO QHS Qty: 0 0RF sennosides-docusate sodium [Stimulant Laxative Plus] 8.6-50 mg Tablet 2 tab PO BID Qty: 0 0RF Continued fluorometholone 0.1 % drops,suspension 1 drp ophthalmic (eye) BID PRN (Reason: Dry Eyes) cyanocobalamin (vitamin B-12) 1,000 mcg tablet 1,000 mcg PO DAILY ferrous sulfate [Feosol] 325 mg (65 mg iron) tablet 325 mg PO QODAY (DME) handicap placard See Rx Instructions .ROUTE .MEDSUPPLY Qty: 1 0RF Rx Instructions: Length of time: 5 years Diagnosis: Impaired physical mobility Z74.09 carvedilol [Coreg] 3.125 mg tablet 3.125 mg PO BID Qty: 180 3RF Rx Instructions: must administer with a meal/food losartan 100 mg tablet 100 mg PO DAILY Qty: 90 1RF cholecalciferol (vitamin D3) 25 mcg (1,000 unit) tablet 2,000 unit PO DAILY Xarelto 20 mg tablet 20 mg PO QPM Qty: 90 3RF Rx Instructions: must administer with evening meal Discontinued cetirizine 5 mg tablet 2.5 mg PO QDAY PRN (Reason: allergy symptoms) Referrals / Follow Up: Deepika Fabian MD [Primary Care Provider, Internal Medicine] Disposition Disposition (needs filled in before D/C Order can be placed): Inpatient Rehab Unit/Facility Charges/Coding Visit Charges Inpatient E&M: 19659 Disch Hosp >30min
[2025-08-02 12:43] VITALS: BMI 20.9
[2025-08-02 12:45] VITALS: BP 139/76; PULSE 78; RESP 15; TEMP 36.1; O2SAT 99
== END 2025-08-02 12:59 | DRG 65 ==
LOC: ED 19:03 → PCU 19:45
PROVIDERS: Admitting Provider Internal Medicine; Emergency Provider Emergency Medicine; PCP Internal Medicine; Visit Provider Internal Medicine
DX: I63.9 Cerebral infarction, unspecified (principal); I48.21 Permanent atrial fibrillation; I27.20 Pulmonary hypertension, unspecified; F03.90 Unspecified dementia, unspecified severity, without behavioral disturbance, psychotic disturbance, mood disturbance, and anxiety; I10 Essential (primary) hypertension; Z79.01 Long term (current) use of anticoagulants; Z79.899 Other long term (current) drug therapy
CPT/HCPCS: 36415; 70450; 70496; 70498; 70551; 80048; 80061; 81001; 82962; 84443; 84484; 85025; 85610; 85730; 87077; 87086; 87088; 87186; 92523; 92610; 93005; 93306; 94762; 97116; 97129; 97130; 97163; 97167; 97530; 97535; 97802; 99285; Q9967; A4216

== ENCOUNTER 2025-08-02 13:15 | Inpatient (IN) | payer MEDICARE, OTHER, SELFPAY ==
[2025-08-02 13:20] VITALS: BP 106/60; PULSE 81; RESP 17; TEMP 36.7; O2SAT 97; BMI 19.1; BMI 19.2
[2025-08-02 17:16] VITALS: BP 105/72; PULSE 71; RESP 18; TEMP 37.1; O2SAT 97
[2025-08-02] MEDS: Fluorometholone 0.1% Susp 1 DRP DROPS OPHTHALMIC (20:20)
[2025-08-02] MEDS: MELATONIN 10 MG TABLET PO (20:20)
[2025-08-02] MEDS: 0.9% Saline Lock 10 ML Syringe IV (21:00)
[2025-08-03 06:36] VITALS: BP 139/75; PULSE 75; RESP 16; TEMP 36.7; O2SAT 96
[2025-08-03 07:10] VITALS: O2SAT 96
[2025-08-03] MEDS: Cholecalciferol (VIT D3) 25 MCG TABLET (1,000 UNITS) 50 MCG PO (07:44)
[2025-08-03] MEDS: Senna/Docusate Sodium 1 Tablet 2 TABLET PO (07:45)
[2025-08-03] MEDS: Fluorometholone 0.1% Susp 1 DRP DROPS OPHTHALMIC ×2 (07:49→20:54)
[2025-08-03 08:29] LABS: Hematocrit 45.1 % (37-47); Hemoglobin 14.5 g/dL (12.0-15.0); Immature Granulocytes Count 0.010 X10^3/uL (0.0-0.0); Mean Corp Hgb Conc 32.2 g/dL (32-36); Mean Corpuscular Volume 96.8 fL (81-99); Mean Platelet Vol. 10.8 fl (6.2-12.0); NRBC Flagged by Analyzer 0 % (0-5); Platelet Count 266 K/mm3 (150-450); RBC Distribution Width CV 12.3 % (11.6-14.6); RBC Distribution Width SD 43.7 fl (35.1-43.9); Red Blood Count 4.66 M/mm3 (4.2-5.4); White Blood Count 6.8 K/mm3 (4.4-11.0)
--- NOTE | 2025-08-03 08:39 | EX.PCM.HP.RE ---
HPI - General General Date of Admission: 08/02/25 Date of Service: 08/03/25 Chief Complaint: Post stroke debility HPI Narrative GIA MERRITT, is a 89 YO F with a PMH of ischemic CVA in the right middle cerebral artery distribution (2021) atrial fibrillation, chronic anticoagulation with Xarelto, hypertension, hyperlipidemia, GERD, osteoarthritis, chronic constipation and anxiety who presented to the emergency room at [facility] on 07/30/2025 complaining of slurred speech and difficulty walking. Stat noncontrast CT brain showed no acute abnormalities. There were periventricular white matter hypodensities likely representing severe chronic microvascular ischemia. CTA of the head and neck showed no hemodynamically significant stenoses in the head or neck. She was not a candidate for thrombolytics due to Xarelto. She was admitted to the hospitalist service for stroke workup. MRI of the brain done 07/31/2025 showed foci of restricted diffusion in the left external capsule and fairbanks radiata consistent with acute infarction. Transthoracic echocardiogram showed mild concentric left ventricular hypertrophy with an ejection fraction of 60%. The left atrium was severely enlarged and the right atrium was moderately enlarged. There was mild to moderate mitral valve insufficiency and moderate tricuspid insufficiency. The pulmonary artery systolic pressure was estimated at 39 which is consistent with mild pulmonary hypertension. There was aortic valve sclerosis with no stenosis. Labs showed a total cholesterol of 258 with an LDL of 177. She lists statins as an allergy due to myalgia. HDL was 61 and triglycerides were 111. TSH was normal. Troponins were unremarkable. LFTs in March 2025 were normal. She was seen by PT/OT/ST following admission and acute inpatient rehab was recommended. She was transferred to the acute inpatient rehab unit at [facility] on 08/02/2025 for 3 hours of therapy daily to restore function/independence at or near her level prior to the most recent stroke. All lab drawn this morning was personally reviewed. CBC is normal. Sodium is 140 and the potassium is 3.8. The BUN is 17 with a creatinine of 0.59 and a creatinine clearance of 37.07. Random blood sugar this morning was 141. The hemoglobin A1c is 5.7. Calcium phosphorus and magnesium are all normal. LFTs are normal. [facility] Medical History (Updated 08/04/25 @ 13:[address] Nicole Mei DO) Foot pain, right Diarrhea Cellulitis of mid back region Abrasion of right upper back excluding scapular region Longstanding persistent atrial fibrillation Arthritis involving multiple sites Essential hypertension CVA (cerebral vascular accident) (02/15/22) Anxiety GERD (gastroesophageal reflux disease) HLD (hyperlipidemia) Home Medications ?Medication ?Instructions ?Recorded ?Last Taken ?Type fluorometholone 0.1 % eye 1 drp ophthalmic (eye) BID PRN Dry 03/02/22 08/02/25 History drops,suspension Eyes cyanocobalamin (vitamin B-12) 1,000 mcg PO DAILY vitamin 05/08/23 08/02/25 History 1,000 mcg tablet ferrous sulfate 325 mg (65 mg 325 mg PO QODAY supplement 05/08/23 08/01/25 History iron) tablet (Feosol) handicap placard #1 ea 01/23/24 Unknown Rx cholecalciferol (vitamin D3) 25 2,000 unit PO DAILY vitamin 08/08/24 08/02/25 History mcg (1,000 unit) tablet rivaroxaban 20 mg tablet (Xarelto) 20 mg PO QPM blood thinner #90 tabs 11/20/24 08/01/25 Rx carvedilol 3.125 mg tablet (Coreg) 3.125 mg PO BID bp #180 tabs 01/28/25 08/02/25 Rx losartan 100 mg tablet 100 mg PO DAILY blood pressure #90 06/29/25 08/02/25 Rx tabs ezetimibe 10 mg tablet 10 mg PO DAILY 08/02/25 08/02/25 Rx hypercholesterolemia #0 tabs melatonin 10 mg disintegrating 10 mg PO QHS Sleep #0 tabs 08/02/25 08/02/25 Rx tablet sennosides 8.6 mg-docusate sodium 2 tab PO BID constipation #0 tabs 08/02/25 Unknown Rx 50 mg tablet (Stimulant Laxative Plus) Allergy/AdvReac Type Severity Reaction Status Date / Time clindamycin Allergy Other Verified 07/30/25 17:48 hyoscyamine Allergy Other Verified 07/30/25 17:48 Penicillins Allergy Hives Verified 07/30/25 17:48 Kshwnec-FOF-AvZ Reductase Allergy Pain in Verified 07/31/25 15:41 Inhibitor (Viotggy-Phn-Wap joints Reductase Inhibitor) nitrofurantoin (From AdvReac Mild altered Verified 07/30/25 17:48 Macrobid) mental status glucosamine AdvReac Other Verified 07/30/25 17:48 Family History Father Diabetes Hyperlipemia Mother Cancer stomach Brother Parkinson's disease Surgical History Cataract extraction status Social History (Updated 08/03/25 @ 13:[address] 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 pets and animals: Yes pets and animals: cat(s) Smoking Status: Never smoker Electronic Cigarette Use: not used alcohol intake: current alcohol intake frequency: holidays/special occasions only substance use type: does not use what type of physical activity do you participate in: other details: gardening do you feel safe at home: Yes ROS Review of Systems ROS Unobtainable: Denies due to encephalopathy, due to endotracheal tube, due to mental condition or due to mental status Constitutional Constitutional: Reports weakness; Denies anorexia, change in weight, chills, fatigue, fever(s) or night sweats Eyes Eyes: Denies blurry vision, change in vision, eye pain or loss of vision ENT HEENT: Denies abnormal hearing, dysphagia, headache(s), hearing loss, nasal congestion or sore throat Cardiovascular Cardiovascular: Denies chest pain, dyspnea on exertion, edema, lightheadedness, orthopnea, palpitations, paroxysmal nocturnal dyspnea or syncope Respiratory/Chest Respiratory/Chest: Denies cough, dyspnea, shortness of breath at rest, shortness of breath with exertion or wheezing Gastrointestinal Gastrointestinal: Reports hematochezia and other Details: occasional hematochezia.....she has chronic constipation and is on Metamucil. She has hemorrhoids and she is on Xarelto. ; Denies abdominal pain, constipation, diarrhea, dyspepsia, hematemesis, nausea or vomiting Genitourinary Genitourinary: Denies dysuria, hematuria, nocturia, urinary frequency, urinary hesitancy, urinary incontinence or urinary urgency Musculoskeletal Musculoskeletal: Reports difficulty walking, joint stiffness, muscle weakness and other Details: Denies myalgia ; Denies back pain, joint pain, joint swelling or neck pain Neurologic Neurologic: Reports disequilibrium and focal weakness; Denies confusion, dizziness, headache(s), paresthesias, seizures or tremor(s) Psychiatric Psychiatric: Reports anxiety; Denies depression, homicidal ideation or suicidal ideation Endocrine Endocrinology: Denies change in body appearance, polydipsia or polyuria Hematologic/Lymphatic Hematologic/Lymphatic: Reports easy bleeding and easy bruising; Denies lymphadenopathy Allergic/Immunologic Allergic/Immunologic: Denies rhinitis, eczemia or asthma Vital Signs Vital Signs Vital Signs: 08/02/25 13:20 08/02/25 16:00 08/02/25 17:16 Temperature 98.0 F 98.8 F Temperature Source Oral Temporal Pulse Rate 81 71 Respiratory Rate 17 18 Respiratory Effort Normal Non-Labored Respiratory Depth Normal Respiratory Pattern Normal Blood Pressure 106/60 105/72 Blood Pressure Mean 75 83 Blood Pressure Source Monitor Monitor Blood Pressure Position Semi-Fowlers Semi-Fowlers Blood Pressure Location Right Arm Left Arm Pulse Ox 97 97 Oxygen Delivery Method Room Air Room Air Room Air 08/03/25 06:36 08/03/25 07:10 Temperature 98.1 F Temperature Source Temporal Pulse Rate 75 Respiratory Rate 16 Respiratory Effort Respiratory Depth Respiratory Pattern Blood Pressure 139/75 H Blood Pressure Mean 96 Blood Pressure Source Monitor Blood Pressure Position Semi-Fowlers Blood Pressure Location Left Arm Pulse Ox 96 96 Oxygen Delivery Method Room Air Room Air Weight Weight: 104 lb 8 oz Body Mass Index (BMI) 19.2 Indicators for Scoring Admitted with or Primary Diagnosis of CVA/Stroke: Yes Hx of CVA/Stroke: Yes Modified Scott Score MRS Score at time of Evaluation: 4-Moderate/severe disability NIHSS NIHSS 1a. Level of Consciousness: 0 - Alert; keenly responsive 1b. LOC Questions: 1 - Answers ONE question correctly 1c. LOC Commands: 0 - Performs BOTH tasks correctly 2. Best Gaze: 0 - Normal 3. Visual: 0 - No visual loss 4. Facial Palsy: 0 - Normal symmetrical movements 5a. Left Arm: 0 - No drift; arm holds 90 (or 45) degrees for full 10 seconds 5b. Right Arm: 0 - No drift; arm holds 90 (or 45) degrees for full 10 seconds 6a. Left Le - No drift; leg holds 30-degree position for full 5 seconds 6b. Right Le - No drift; leg holds 30-degree position for full 5 seconds 7. Limb Ataxia: 0 - Absent 8. Sensory: 0 - Normal; no sensory loss 9. Best Language: 1 - Uidt-zv-worghecz aphasia; 10. Dysarthria: 0 - Normal 11. Extinction and Inattention: 0 - No abnormality Total: 2 Stroke Questions Stroke Team Activated: No Physical Exam Const alert and no apparent distress Constitutional Narrative: Initially sitting in the recliner at the bedside eating her lunch. Can tell me the year after thinking about it for a bit. She knows she is in [place]. Not sure why she is in rehab and can not tell me that she is in the hospital. General Appearance: cooperative, well kempt and frail; Negative for anxious or diaphoretic HEENT normocephalic, head/scalp atraumatic and moist oral mucous membranes HEENT Narrative: No thrush, no facial asymmetry. Eyes PERRL, EOMs intact bilaterally, conjunctivae normal and no scleral icterus Eyes Narrative: No nystagmus. No visual field cuts. Neck supple, no JVD, No nodes and no carotid bruits Chest Chest: symmetrical chest wall rise Resp normal respiratory effort, normal air movement and clear to auscultation bilaterally Resp Narrative: no cough with deep breathing. Effort and Inspection: able to speak in complete sentences and symmetric chest movement Cardio no rub and no gallops Cardio Narrative: irreg irreg rhythm with controlled VR. GI normal to inspection, nondistended, normoactive bowel sounds, soft to palpation and non-tender GI Narrative: No guarding with patient Back/Spine no CVA tenderness Extremity no calf tenderness and no pedal edema Extremity Narrative: Heberden's and James's nodes of both hands. Bony enlargement of both knees. Complaining of right knee pain. Skin no rashes or lesions noted and no jaundice General Skin Exam: no breakdown Neuro Neuro Narrative: She is alert and pleasant. She is oriented to person and after some prompting was able to tell me that she is in [facility]. Tells me they thought I had a stroke. Able to tell me her age. Able to tell me the year is 2024 but unable to tell me what month it is. She is able to tell me her date. No facial asymmetry. No visual field cuts. Tongue protrudes on the midline. Palate elevates symmetrically. Good shoulder shrug bilaterally. No drift with either upper extremity. Fairly good roller strength bilaterally. She is right-hand dominant. No tremors. No ataxia of the upper extremities. Generalized weakness in the lower extremities bilaterally. No ataxia of the lower extremities. No drift with the legs. Able to plantarflex and dorsiflex both feet. No extinction. No significant dysarthria.....I can understand her easily. she has some trouble with word finding. Able to read all the words and sentences on the NIHSS screening tool. Was able to tell me several things that were going on in the picture without prompting. No paresthesias. Psych cooperative, affect normal and denies hallucinations Appearance: appropriate and well kempt Attitude: calm Activity / Motor Behavior: appropriate eye contact Results Lab / Micro Data 08/03/25 08:09 08/03/25 08:09 Labs: Laboratory Results - last 24 hr 08/03/25 08:09: WBC 6.8, RBC 4.66, Hgb 14.5, Hct 45.1, MCV 96.8, MCH 31.1, MCHC 32.2, RDW Std Deviation 43.7, RDW Coeff of Palak 12.3, Plt Count 266, MPV 10.8, Immature Gran % (Auto) 0.100, Neut % (Auto) 65.0, Lymph % (Auto) 23.5, Edwards % (Auto) 5.2, Eos % (Auto) 5.0, Baso % (Auto) 1.2 H, Absolute Neuts (auto) 4.4, Absolute Lymphs (auto) 1.59, Nucleated RBC % 0 Assessment & Plan Assessment/Plan (1) Debility: (2) Ischemic cerebrovascular accident (CVA): (3) Longstanding persistent atrial fibrillation: (4) Anticoagulant long-term use: (5) Cognitive dysfunction: (6) Facial droop: (7) Dysarthria: (8) Urinary incontinence: QUALIFIERS: Urinary Incontinence type: unspecified incontinence Qualified Code(s): R32 - Unspecified urinary incontinence (9) Essential hypertension: (10) HLD (hyperlipidemia): QUALIFIERS: Hyperlipidemia type: unspecified Qualified Code(s): E78.5 - Hyperlipidemia, unspecified (11) Arthritis involving multiple sites: PLAN: Osteoarthritis PLAN: Plan PLAN PT for gait stability OT for ADL's ST for evaluation Analgesics as needed Bowel protocol Fall precautions Assess for Anxiety/Depression GI prophylaxis -not necessary at this time. She is asymptomatic. DVT prophylaxis with continue Xarelto. Follow up with PCP, neurology, cardiology following DC from IP Rehab AM lab including CMP, CBC, Mag and Phos Creatinine clearance is in the low 30s. Will decrease the Xarelto dose to 15 mg daily and if creatinine clearance drops to less than 30 this will need to be discontinued and she should start on Eliquis. If she is transitioned to Eliquis the dose should be 2.5 mg twice daily. Creatinine is less than 1.5 but she is less than 60 kg and body weight and she is greater than 82 years old. She was started on Zetia 20 mg daily while on the acute side of the hospital. She should have a follow-up lipid panel and a liver panel in 6 weeks. Zetia has been associated with myalgia/arthralgia but, less than a statin. BCAT was 20/50 consistent with severe cognitive dysfunction. Will no longer be able to live independently.......will discuss with family. Charges/Coding Visit Charges Inpatient E&M: 19905 Init Hosp L3
[2025-08-03 08:57] LABS: AST(SGOT) 22 U/L (<=31); Alanine Aminotransfer ALT/SGPT 14 U/L (<=34); Albumin, Serum 4.0 g/dL (3.4-4.8); Alkaline Phosphatase 76 U/L (35-104); Anion Gap 11 (5-15); BUN 17 mg/dL (4-19); BUN/Creat Ratio 29.3 RATIO (10-20); Calcium,Total 9.1 mg/dL (7.6-11.0); Carbon Dioxide 23.7 mmol/L (21.0-32.0); Chloride 105 mmol/L (98-108); Estimated Creatinine Clearance 37.07 ml/min (50-250); Globulin 2.9 g/dL (2.2-4.2); Glucose 141 mg/dL (70-99); Magnesium 2.0 mg/dL (1.5-2.2); Potassium 3.8 mmol/L (3.3-5.1)
[2025-08-03 10:59] VITALS: O2SAT 95
[2025-08-03 18:00] VITALS: BP 143/65; PULSE 68; RESP 16; TEMP 36.4; O2SAT 98
[2025-08-03] MEDS: MELATONIN 3 MG TABLET 1.5 MG PO (20:53)
[2025-08-03] MEDS: 0.9% Saline Lock 10 ML Syringe IV (21:01)
[2025-08-03 22:00] VITALS: PULSE 65; RESP 17; O2SAT 96
[2025-08-04 06:00] VITALS: BP 127/75; PULSE 63; RESP 16; TEMP 36.1; O2SAT 96
[2025-08-04] MEDS: Cholecalciferol (VIT D3) 25 MCG TABLET (1,000 UNITS) 50 MCG PO (07:55)
[2025-08-04] MEDS: Fluorometholone 0.1% Susp 1 DRP DROPS OPHTHALMIC ×2 (07:55→20:15)
[2025-08-04] MEDS: Psyllium 1 PACKET PO (07:55)
[2025-08-04] MEDS: 0.9% Saline Lock 10 ML Syringe IV (07:59)
[2025-08-04 08:00] VITALS: BP 130/61; PULSE 74
--- NOTE | 2025-08-04 13:54 | REHABEVAL_ITS ---
Admission Information
--- NOTE | 2025-08-04 13:54 | PCM.RU.PYE ---
Admission Information Primary Diagnosis:: Poststroke debility Status Changes from Prescreening?: No changes Identified Actual Problem List:: Pain, ALteration in Cmfrt, Cognitve Impr/Memory Loss, Bowel, Constipation, Mobility Impaired, Self Care Deficit, Know.Dfct of Medicaitons, BP, Hypertension and Alteration-Leisure Activ. Potential Problem List:: DVT, Bleeding, Infection, UTI, Aspiration, Falls, Skin Integrity and Depression Risk of Complications DVT: - (Continue Xarelto but decrease the dose to 15 mg daily due to age greater than 80 and weight less than 60 kg. If the creatinine clearance drops to less than 30 will need to consider transitioning to Eliquis.) Bleeding: Monitor Lab Values, Nursing to Teach Precautions for anti-coagulation therapy., Wound, if applicable, to be assessed every shift. and Stroke patients assessed for lethargy or change in status. Infection: Clinical Staff to Monitor for S/S of infection: and S/S of infection include fever, redness, warmth, etc. Urinary Tract Infection: Monitor for frequency, burning, discomfort, or incontinence. and Nursing will obtain urine sample for urinalysis and C&S when ordered. Aspiration: Clinical staff will monitor for coughing, drooling, congestion., Speech will evaluate swallowing and dsyphasia. and Nursing will monitor patient swallowing during meals. Falls: Patient will be evaluated for Fall Precautions and Patient will be placed on Fall Precautions as indicated per protocol. Skin Breakdown: Nursing will assess skin daily using assessment tool. and Nursing will place on Skin Breakdown Precautions as indicated. Pain: Clinical staff will assess patient's pain level per protocol., Medications will be given, if needed, and the pain level reassessed. and Other methods: Massage, distraction, decrease stimulus, etc. used PRN. Plan of Care Patient requires physician specializing in physical medicine and rehab oversight to provide close medical supervision of rehab issues including: Pain Management, Sleep Problems, Bowel and Bladder, Medical and co-morbidity Management, DVT prophylaxis, Rehabilitation Leadership and Coordination of treatment team Patient needs Physical Therapy: For a minimum of 1 hour and At least 5 out of 7 days Patient needs Physical Therapy to improve:: Mobility, Strengthening, Transfers, Stretching, ROM, Endurance, Stairs, Gait and Balance Patient needs Occupational Therapy: For a minimum of 1 hour and At least 5 out of 7 days Patient needs Occupational Therapy to improve ADL's incl.: Eating, Grooming, Bathing, Dressing, Toileting, Toilet transfers, Community Reintegration, Higher functioning activities, Household tasks, Adaptive Equipment, Splinting and Other activities as determined Patient requires speech therapy: For a minimum of 1 hour and At least 5 out of 7 days Patient requires speech therapy for: Swallowing, Cognition, Language Skills and Compensatory Strategies Patient requires 24/7 Rehabilitation Nursing for: Pain Issues, Identifying and preventing risk factors, Monitoring and reporting current medical conditions, Assisting with ambulation, transfer, and all ADL's, Teaching patients about disease process and medications, Family teaching, Providing safe environment, Bowel and Bladder Issues, Skin integrity and Medication Management Patient needs Director Heart/ Case Management for: Discharge Planning, Arranging Home Equipment or Services and Family Interventions Patient needs Dietary and Nutrition Services for: Adequate Nutrition, Nutritional Supplements and Nutritional Education Goals Goals Patient will remain: free from falls Patient will perform eating at: MOD I level of assist. Patient will perform bed mobility at: MOD I level of assist. Patient will complete transfers from bed to chair at: Standby Assist. Patient will ambulate: - (350 feet with least restrictive device at standby assist on various surfaces) Patient will complete upper body dressing at: - (Set up) Patient will complete lower body dressing at: - (Set up with adaptive equipment as needed.) Patient will complete toilet transfer at: - (Supervision) Patient will complete toileting at: - (Supervision) Patient will perform bathing at: - (Upper body bathing at set up and lower body bathing at supervision with adaptive equipment as needed) Patient will perform Tub/Shower transfer at: - (Supervision) Patient will complete grooming at: - (Set up level while standing at the sink) Patient will achieve: 12 stairs (With 1-2 handrails at standby assist) Patient will have pain level of: of 3 or less Patient's skin will: remain intact Patient will receive: adequate nutrition. Discharge Planning Pt Prognosis for Sig. Practical Improv. w/in Reasonable Time: Good Estimated Length of stay (days): 21 Anticipated D/C Destination: TBD Was Preadmission Assessment Accurate?: Yes
--- NOTE | 2025-08-04 16:02 | CHAPLAIN ---
Type of Pastoral Visit _x__ Initial Visit ___ Follow-up Visit ___ On-call Visit ___ General Patient Visit ___ Spiritual Assessment ___ Family Conference ___ Bereavement ___ Rapid Response ___ Code Blue ___ Other (describe below) Pastoral Care Referral From _x__ Patient ___ Family ___ Nurse ___ Physician ___ Gas Mask Assembler ___ Music Store Manager ___ Other (describe below) Sacrament/Intervention _x__ Active listening ___ Anointing ___ Taoism ___ Bereavement ___ Communion _x__ Uma exploration ___ ___ Life review _x__ Prayer ___ Reconciliation ___ Sacrament of Sick _x__ Supportive presence ___ Wedding ___ Other (describe below) Pastoral Comments patient is pleasant and explains her appreciation for the spiritual care received and offered at this time; pt has had communion for the [facility] ministers and a visit from her rope laying machine operator; pt is talkative about life and family; pt speaks of gratitude for the kind staff; pt welcomes presence and prayers today
[2025-08-04 17:52] VITALS: BP 164/74; PULSE 82; RESP 16; TEMP 36.3; O2SAT 100
[2025-08-04] MEDS: Arthritis Pain Compound 60 CLICK TUBE TOPICAL (20:15)
[2025-08-04] MEDS: MELATONIN 3 MG TABLET 1.5 MG PO (20:16)
[2025-08-04 20:34] VITALS: PULSE 82; RESP 16; O2SAT 100
[2025-08-05 05:24] VITALS: BP 131/55; PULSE 73; RESP 16; TEMP 36.5; O2SAT 95
[2025-08-05] MEDS: Cholecalciferol (VIT D3) 25 MCG TABLET (1,000 UNITS) 50 MCG PO (08:15)
[2025-08-05] MEDS: Arthritis Pain Compound 60 CLICK TUBE TOPICAL ×2 (08:15→21:21)
[2025-08-05] MEDS: Fluorometholone 0.1% Susp 1 DRP DROPS OPHTHALMIC ×2 (08:15→21:21)
[2025-08-05 12:52] VITALS: BP 136/68; BP 145/72; PULSE 61; PULSE 62
[2025-08-05 18:00] VITALS: BP 120/63; PULSE 82; RESP 16; TEMP 36.7; O2SAT 96
[2025-08-05 19:26] VITALS: BMI 19.2
[2025-08-05 20:30] VITALS: O2SAT 98
[2025-08-05] MEDS: MELATONIN 3 MG TABLET 1.5 MG PO (21:22)
[2025-08-05 21:36] LABS: Mucous, Urine 0 SEEN /hpf (<or=2+)
[2025-08-05 21:40] LABS: Color, Urine Yellow (Yellow); Glucose, Dipstick Normal (Normal); Ketone-Dipstick Negative (Negative); Leukocyte Esterase-Dipstick Negative /ul (Negative); Nitrite-Dipstick Negative (Negative); Occult Blood-Urine Negative /ul (Negative); Protein-Dipstick 15 mg/dl (Negative); Specific Gravity, Urine 1.010 (1.002-1.030); Urine Bilirubin Dipstick Negative (Negative)
[2025-08-05 22:15] LABS: Squamous Epithelial Cells - UA 5-10 SEEN /hpf (5-10)
[2025-08-05 22:16] LABS: Red Blood Cells-Urine 0-5 SEEN /hpf (0-5)
[2025-08-06 05:02] VITALS: BP 146/55; PULSE 65; RESP 16; TEMP 36.3; O2SAT 95
[2025-08-06 06:58] VITALS: O2SAT 95
[2025-08-06] MEDS: Fluorometholone 0.1% Susp 1 DRP DROPS OPHTHALMIC ×2 (07:57→21:15)
[2025-08-06] MEDS: Cholecalciferol (VIT D3) 25 MCG TABLET (1,000 UNITS) 50 MCG PO (07:57)
[2025-08-06] MEDS: Arthritis Pain Compound 60 CLICK TUBE TOPICAL ×2 (07:58→21:15)
[2025-08-06] MEDS: Psyllium 1 PACKET PO (07:58)
--- NOTE | 2025-08-06 10:45 | PCM.PROGNOTE ---
Subjective Subjective Angela was seen on team rounds today. Her daughters Alyson and Tamie were present in the room. All questions were answered to their satisfaction. Afebrile VSS -blood pressure over the past 24 hours has ranged from 131/55 to 146/55. Heart rate is ranged from 65-82. Maintaining appropriate oxygen saturation on RA Oral intake - FOOD good FLUIDS good Discussed with nursing - no problems that need addressed. Incontinent of urine at times. Reviewed the THERAPY notes Medication list reviewed. Family felt she was more confused yesterday. Orthostatics were negative. She has good fluid intake. Nursing sent a UA and it showed 0-5 RBCs, 0-5 WBCs, no bacteria and it was nitrite negative. Angela has no complaints today. She denies cephalgia, chest pain, shortness of breath, cough, palpitations, nausea/vomiting/abdominal pain, dysuria and calf tenderness. When I specifically asked her about lightheadedness she thought about it for a minute or 2 and then said maybe sometimes. Orthostatics were negative yesterday. When I saw her she was up ambulating in the [place] with the front wheeled walker and the physical therapist. Objective Data Objective Data Vital Signs: Vital Signs Temp Pulse Resp BP Pulse Ox O2 Del Method 97.4 F L 65 16 146/55 H 95 Room Air 08/06/25 05:02 08/06/25 05:02 08/06/25 05:02 08/06/25 05:02 08/06/25 06:58 08/06/25 06:58 Oxygen Delivery Method Room Air Weight: 104 lb 15.993 oz Body Mass Index (BMI) 19.2 Intake & Output: Intake and Output for Last 24 Hours 08/04/25 08/05/25 08/06/25 23:59 23:59 23:59 Intake Total 1480 / 1480 1750 / 1750 640 / 640 Output Total 1700 / 1700 1750 / 1750 360 / 360 Balance -220 / -220 0 / 0 280 / 280 Lab / Micro Data 08/03/25 08:09 08/03/25 08:09 Labs: Laboratory Results - last 24 hr 08/05/25 21:25: Urine Color Yellow, Urine Clarity Clear, Urine pH 7.0, Ur Specific [place] 1.010, Urine Protein 15 H, Urine Glucose (UA) Normal, Urine Ketones Negative, Urine Occult Blood Negative, Urine Nitrite Negative, Urine Bilirubin Negative, Urine Urobilinogen Normal, Ur Leukocyte Esterase Negative, Urine RBC 0-5 SEEN, Urine WBC 0-5 SEEN, Ur Squamous Epith Cells 5-10 SEEN, Amorphous Sediment 2+, Urine Bacteria 0 SEEN, Urine Mucus 0 SEEN Physical Exam Const alert and no apparent distress General Appearance: cooperative; Negative for anxious Resp normal respiratory effort, normal air movement and clear to auscultation bilaterally Resp Narrative: no cough with deep breathing. Effort and Inspection: able to speak in complete sentences and symmetric chest movement Cardio no rub and no gallops Cardio Narrative: irreg irreg rhythm with controlled VR. GI normal to inspection, nondistended, normoactive bowel sounds, soft to palpation and non-tender GI Narrative: No guarding with patient Extremity no calf tenderness and no pedal edema Skin no rashes or lesions noted General Skin Exam: no breakdown Rashes: no rashes Wound Narrative: Some redness of the buttocks but it blanches with pressure. No openings in the skin. Neuro Neuro Narrative: No change in the neuroexam. Psych cooperative Appearance: appropriate Attitude: calm Activity / Motor Behavior: appropriate eye contact Assessment & Plan Assessment/Plan (1) Debility: (2) Ischemic cerebrovascular accident (CVA): (3) Longstanding persistent atrial fibrillation: (4) Anticoagulant long-term use: (5) Cognitive dysfunction: PLAN: Cognitive dysfunction is severe and was chronic prior to the most recent stroke (has declined since the stroke in 2021). It is likely exacerbated from the recent stroke. [facility]. She has severe global cerebral atrophy on the CT of the head at admission and also periventricular white matter hypodensities likely representing severe chronic microvascular disease. (6) Facial droop: (7) Dysarthria: (8) Urinary incontinence: QUALIFIERS: Urinary Incontinence type: unspecified incontinence Qualified Code(s): R32 - Unspecified urinary incontinence (9) Essential hypertension: (10) HLD (hyperlipidemia): QUALIFIERS: Hyperlipidemia type: unspecified Qualified Code(s): E78.5 - Hyperlipidemia, unspecified (11) Arthritis involving multiple sites: PLAN: Osteoarthritis PLAN: Plan 1. Continue therapy 2. No changes to the drug regimen today. 3. Discussed with family and their plan is to transfer to a memory unit when she is discharged from rehab. Charges/Coding Visit Charges Inpatient E&M: 76223 Subs Hosp L2
[2025-08-06 13:08] VITALS: BMI 19.2
--- NOTE | 2025-08-06 13:27 | CASEMGMT ---
Social Work IDT met with patient and two dtrs for Team meeting. Discussed patient's progress in PT/OT/ST/SN/MD. Educated to Medicare approval of 13 days with DC 08/15. IDT recommending 24/7 hands on care for DC d/t cognitive deficits. SW briefly educated to options of home with 24/7 care, AL or SNF. SW offered to assist with navigating those options, providing resources and making referrals. SW provided dtrs with contact information to notify with questions and DC plans. Dtrs expressed understanding. - After Team meeting, Dr. Mei spoke with dtr's separately and located this worker. Dtr's requesting AL at [place], stating they have already toured/spoken to [facility], and would like to tour [facility]. Dtr's report Dr recommending memory care. SW educated that AL makes the decision on memory care unit, and there are regulations that the pt needs to have an Alzheimer's or Dementia dx, which pt does not have. SW educated that memory care units typically offer more 1:1 support when it comes to behaviors or wandering, not necessarily because of cognitive impairment. Dtr's expressed understanding. SW confirmed dtr's are aware AL is private pay. Dtr's aware and stated pt has a LTC policy. SW educated LTC policies have a max daily or monthly amount and lifetime benefit, and it is on a reimbursement basis. Dtr's to review policy, and but stated finances are not an issue. SW offered to place referrals to [facility] and/or [facility] for the facilities to review clinically to determine acceptance, and if there is availability. Dtr's agreed to place referrals to both facilities. Dtr's would like to tour [facility] as well. SW to place referrals and notify dtr, Tamie, of outcomes. Both appreciative. - SW sent referrals to Luis Carlos at [facility] via email and [facility] via [facility]. Will continue to follow and ReTeam next week. Tammy Rome MSW RESOURCE RECOVERY SPECIALIST
[2025-08-06 18:00] VITALS: BP 127/59; PULSE 75; RESP 17; TEMP 37.1; O2SAT 96
[2025-08-06 19:45] VITALS: RESP 18; O2SAT 96
[2025-08-06] MEDS: MELATONIN 3 MG TABLET 1.5 MG PO (21:15)
[2025-08-06 23:23] VITALS: BMI 19.2
[2025-08-07 05:27] VITALS: BMI 19.3
[2025-08-07 05:30] VITALS: BP 142/66; PULSE 79; RESP 16; TEMP 36.9; O2SAT 96
[2025-08-07] MEDS: Arthritis Pain Compound 60 CLICK TUBE TOPICAL ×2 (08:06→21:51)
[2025-08-07] MEDS: Fluorometholone 0.1% Susp 1 DRP DROPS OPHTHALMIC ×2 (08:06→21:52)
[2025-08-07] MEDS: Cholecalciferol (VIT D3) 25 MCG TABLET (1,000 UNITS) 50 MCG PO (08:06)
[2025-08-07] MEDS: Psyllium 1 PACKET PO (08:07)
[2025-08-07 10:00] VITALS: RESP 17; O2SAT 97
--- NOTE | 2025-08-07 13:29 | CASEMGMT ---
Social Work SW spoke with dtr, Tamie, several times throughout the day with updates on AL tours. Overall, family prefer [facility] AL, but unsure which unit pt can admit to as pt needs the proper dx for [facility] unit. PILLO communicated with Isabel at [facility] and their AL Charge Nurse returns on Sunday and will discuss with her, then schedule an onsite. SW will keep dtr updated. Dtr appreciative of assistance from this worker. Tammy Rome KICK PRESS SETTER CABLE TELEVISION TECHNICIAN
[2025-08-07 16:30] VITALS: BMI 19.3
[2025-08-07 17:00] VITALS: BP 160/69; PULSE 74; RESP 17; TEMP 37.2; O2SAT 97
[2025-08-07] MEDS: MELATONIN 3 MG TABLET 1.5 MG PO (21:52)
[2025-08-08 05:51] VITALS: BP 145/82; PULSE 74; RESP 17; TEMP 36.8; O2SAT 96
[2025-08-08] MEDS: Psyllium 1 PACKET PO (08:23)
[2025-08-08] MEDS: Cholecalciferol (VIT D3) 25 MCG TABLET (1,000 UNITS) 50 MCG PO (08:23)
[2025-08-08] MEDS: Arthritis Pain Compound 60 CLICK TUBE TOPICAL ×2 (08:24→20:04)
[2025-08-08] MEDS: Fluorometholone 0.1% Susp 1 DRP DROPS OPHTHALMIC ×2 (08:24→20:03)
[2025-08-08 17:46] VITALS: BP 116/70; PULSE 75; RESP 16; TEMP 36.4; O2SAT 96
[2025-08-08] MEDS: MELATONIN 3 MG TABLET 1.5 MG PO (20:04)
[2025-08-09 05:14] VITALS: BP 138/73; PULSE 71; RESP 16; TEMP 37; O2SAT 94
[2025-08-09] MEDS: Cholecalciferol (VIT D3) 25 MCG TABLET (1,000 UNITS) 50 MCG PO (07:46)
[2025-08-09] MEDS: Psyllium 1 PACKET PO (07:49)
[2025-08-09 07:50] VITALS: BP 146/67; PULSE 77
[2025-08-09] MEDS: Fluorometholone 0.1% Susp 1 DRP DROPS OPHTHALMIC ×2 (09:04→20:23)
[2025-08-09] MEDS: Arthritis Pain Compound 60 CLICK TUBE TOPICAL ×2 (09:05→20:23)
[2025-08-09 14:35] VITALS: BMI 19.3
[2025-08-09 17:05] VITALS: BP 155/65; PULSE 77; RESP 16; TEMP 36.8; O2SAT 96
[2025-08-09] MEDS: MELATONIN 3 MG TABLET 1.5 MG PO (20:24)
[2025-08-09 20:46] VITALS: BMI 19.3
[2025-08-10 05:30] VITALS: BP 146/75; PULSE 79; RESP 16; TEMP 36.6; O2SAT 95
[2025-08-10] MEDS: Arthritis Pain Compound 60 CLICK TUBE TOPICAL ×2 (07:36→20:24)
[2025-08-10] MEDS: Fluorometholone 0.1% Susp 1 DRP DROPS OPHTHALMIC ×2 (07:36→20:24)
[2025-08-10] MEDS: Psyllium 1 PACKET PO (07:36)
[2025-08-10] MEDS: Cholecalciferol (VIT D3) 25 MCG TABLET (1,000 UNITS) 50 MCG PO (07:37)
--- NOTE | 2025-08-10 13:00 | CASEMGMT ---
Social Work Message received from Isabel at [facility] [employer] [facility]. NANI ARAIZA will meet with pt at 3pm today to complete onsite to determine ability to accept pt. RU team updated regarding on site visit. MILENA Kumar
[2025-08-10 17:00] VITALS: BMI 19.3
[2025-08-10 18:00] VITALS: BP 147/72; RESP 16; O2SAT 97
[2025-08-10 20:03] VITALS: BMI 19.3
[2025-08-10] MEDS: MELATONIN 3 MG TABLET 1.5 MG PO (20:26)
[2025-08-10 20:29] VITALS: RESP 16; O2SAT 98
[2025-08-11 06:00] VITALS: BP 141/71; PULSE 51; RESP 15; TEMP 36.4; O2SAT 93
[2025-08-11] MEDS: Fluorometholone 0.1% Susp 1 DRP DROPS OPHTHALMIC ×2 (08:18→20:13)
[2025-08-11] MEDS: Arthritis Pain Compound 60 CLICK TUBE TOPICAL ×2 (08:18→20:13)
[2025-08-11] MEDS: Psyllium 1 PACKET PO (08:18)
[2025-08-11] MEDS: Cholecalciferol (VIT D3) 25 MCG TABLET (1,000 UNITS) 50 MCG PO (09:21)
[2025-08-11 10:06] VITALS: BMI 19.3
[2025-08-11 16:27] LABS: Mucous, Urine 0 SEEN /hpf (<or=2+); Squamous Epithelial Cells - UA 0 SEEN /hpf (5-10)
[2025-08-11 16:28] LABS: Color, Urine Yellow (Yellow); Glucose, Dipstick Normal (Normal); Ketone-Dipstick Negative (Negative); Leukocyte Esterase-Dipstick 500 /ul (Negative); Nitrite-Dipstick Positive (Negative); Occult Blood-Urine 150 /ul (Negative); Protein-Dipstick 30 mg/dl (Negative); Specific Gravity, Urine 1.015 (1.002-1.030); Urine Bilirubin Dipstick Negative (Negative)
--- NOTE | 2025-08-11 16:34 | PCM.PROGNOTE ---
Subjective Subjective Afebrile VSS - Systolic BP is consistently above goal. Diastolic usually within goal H$ ranged from 51-76 today Maintaining appropriate oxygen saturation on RA Oral intake - FOOD good FLUIDS fair to good Discussed with nursing - restless last night and impulsive. Nursing had to call familly to help calm her down. Having urinary urgency and frequency. Reviewed the THERAPY notes Medication list reviewed. She is c/o urinary frequency, urgency and incontinence. She has had intermittent urinary incontinence but nursing tells me it is worse today. The patient says she has some burning with urination. She was agitated last night and her family had to be called. Did not sleep well. Objective Data Objective Data Vital Signs: Vital Signs Temp Pulse Resp BP Pulse Ox O2 Del Method 97.6 F L 51 L 15 141/71 H 93 Room Air 08/11/25 06:00 08/11/25 06:00 08/11/25 06:00 08/11/25 06:00 08/11/25 06:00 08/11/25 06:00 Oxygen Delivery Method Room Air Weight: 104 lb 11.513 oz Body Mass Index (BMI) 19.3 Intake & Output: Intake and Output for Last 24 Hours 08/09/25 08/10/25 08/11/25 22:59 23:59 23:59 Intake Total 1787 / 1787 1140 / 1540 920 / 920 Output Total 1600 / 1600 725 / 1075 1150 / 1150 Balance 187 / 187 415 / 465 -230 / -230 Lab / Micro Data 08/03/25 08:09 08/03/25 08:09 Physical Exam Const alert and no apparent distress Constitutional Narrative: pleasant and talkative General Appearance: cooperative Resp normal respiratory effort and clear to auscultation bilaterally Effort and Inspection: able to speak in complete sentences Cardio no rub and no gallops Cardio Narrative: irreg irreg rhythm with controlled VR. GI normal to inspection, nondistended, normoactive bowel sounds, soft to palpation and non-tender GI Narrative: No guarding with patient Extremity no calf tenderness and no pedal edema Skin Rashes: no rashes Assessment & Plan Assessment/Plan (1) Debility: (2) Ischemic cerebrovascular accident (CVA): (3) Longstanding persistent atrial fibrillation: (4) Anticoagulant long-term use: (5) Cognitive dysfunction: (6) Facial droop: (7) Dysarthria: (8) Urinary incontinence: QUALIFIERS: Urinary Incontinence type: unspecified incontinence Qualified Code(s): R32 - Unspecified urinary incontinence (9) Essential hypertension: (10) HLD (hyperlipidemia): QUALIFIERS: Hyperlipidemia type: unspecified Qualified Code(s): E78.5 - Hyperlipidemia, unspecified (11) Arthritis involving multiple sites: PLAN: Plan 1. Continue therapy 2. Straight cath and obtain a UA Charges/Coding Visit Charges Inpatient E&M: 46219 Subs Hosp L1
[2025-08-11 16:50] LABS: Red Blood Cells-Urine 0-5 SEEN /hpf (0-5)
[2025-08-11 17:41] VITALS: BP 150/85; PULSE 73; RESP 16; TEMP 36.3; O2SAT 98
[2025-08-11] MEDS: 0.9% Saline Lock 10 ML Syringe IV ×2 (19:09→20:18)
[2025-08-11 19:34] VITALS: BMI 19.3
[2025-08-11 19:43] VITALS: PULSE 73; RESP 16; O2SAT 98
[2025-08-11] MEDS: MELATONIN 3 MG TABLET 1.5 MG PO (20:13)
[2025-08-12 05:00] VITALS: BP 130/76; PULSE 70; RESP 18; TEMP 36.6; O2SAT 96
[2025-08-12] MEDS: Fluorometholone 0.1% Susp 1 DRP DROPS OPHTHALMIC ×2 (07:29→20:33)
[2025-08-12] MEDS: Psyllium 1 PACKET PO (07:29)
[2025-08-12] MEDS: Cholecalciferol (VIT D3) 25 MCG TABLET (1,000 UNITS) 50 MCG PO (07:29)
[2025-08-12] MEDS: Arthritis Pain Compound 60 CLICK TUBE TOPICAL ×2 (07:30→20:32)
[2025-08-12 14:03] VITALS: BMI 19.3
--- NOTE | 2025-08-12 16:25 | CASEMGMT ---
Social Work SW met with pt to discuss discharge plan. Pt has been accepted at [facility] and will dc on 08/15 at 11am. Pt is aware of discharge plan and agreeable. Pt became tearful when discussing life changes and need for AL instead of returning home. PILLO provided emotional support. Phone call to pt dgt Tamie and dc plans confirmed. Tamie will transport pt to [facility] on Sunday at 11am. Physician updated. Phone call to Toi at [facility] and updated on dc to [place] and that [facility] services are no longer needed. DC DATE: 08/15 DC DISPOSITION: [facility], Assisted Living MILENA Pascal
[2025-08-12 18:00] VITALS: BP 151/85; PULSE 75; RESP 16; TEMP 36.6; O2SAT 98
[2025-08-12 20:20] VITALS: BP 125/50; PULSE 72; RESP 16; TEMP 36.9; O2SAT 97
[2025-08-12] MEDS: MELATONIN 3 MG TABLET 1.5 MG PO (20:34)
[2025-08-12 22:00] VITALS: PULSE 72; RESP 16; O2SAT 97
[2025-08-12] MEDS: 0.9% Saline Lock 10 ML Syringe IV (22:42)
[2025-08-13 04:26] VITALS: BMI 19.3
[2025-08-13 06:00] VITALS: BP 136/78; PULSE 77; RESP 17; TEMP 36.6; O2SAT 97
[2025-08-13] MEDS: Cholecalciferol (VIT D3) 25 MCG TABLET (1,000 UNITS) 50 MCG PO (08:11)
[2025-08-13] MEDS: Arthritis Pain Compound 60 CLICK TUBE TOPICAL ×2 (08:12→20:32)
[2025-08-13] MEDS: Fluorometholone 0.1% Susp 1 DRP DROPS OPHTHALMIC ×2 (08:13→20:35)
[2025-08-13] MEDS: Psyllium 1 PACKET PO (08:13)
--- NOTE | 2025-08-13 09:26 | PCM.PROGNOTE ---
Subjective Subjective Day # #3 antibiotics. Angela was seen on team rounds. Her daughters Tamie and Alyson were present in the room. All questions were answered to their satisfaction. Afebrile VSS -blood pressures over the past 48 hours have ranged from 130/76 to 151/58. Has had 2 doses of amlodipine 2.5 mg so far. Tends to be higher around suppertime. Heart rate is within normal limits. Maintaining appropriate oxygen saturation on RA Oral intake - FOOD good FLUIDS poor Discussed with nursing - night nurse documented liquid black stool mixed with urine. She had 5 bowel movements on Sunday but only 1 yesterday Reviewed the THERAPY notes Medication list reviewed. Urine culture grew Proteus mirabilis, greater than 100,000 colonies. It is pansensitive with the exception of being resistant to nitrofurantoin. She tells me that the frequency and urgency has improved with the Antibiotics. She denies dysuria today. Denies lightheadedness, cephalgia, nausea/vomiting/abdominal pain. Also denies diarrhea. Objective Data Objective Data Vital Signs: Vital Signs Temp Pulse Resp BP Pulse Ox O2 Del Method 97.9 F 77 17 136/78 H 97 Room Air 08/13/25 06:00 08/13/25 06:00 08/13/25 06:00 08/13/25 06:00 08/13/25 06:00 08/13/25 06:00 Oxygen Delivery Method Room Air Weight: 104 lb 11.513 oz Body Mass Index (BMI) 19.3 Intake & Output: Intake and Output for Last 24 Hours 08/11/25 08/12/25 08/13/25 23:59 23:59 23:59 Intake Total 1370 / 1370 650 / 650 590 / 590 Output Total 1450 / 1450 500 / 500 700 / 700 Balance -80 / -80 150 / 150 -110 / -110 Lab / Micro Data 08/13/25 11:00 08/13/25 11:00 Micro: Microbiology 08/11/25 16:20 Urine, Catheterized Urine Culture - Final Proteus mirabilis Physical Exam Const alert and no apparent distress Constitutional Narrative: Pleasant and talkative. She is always very cooperative with therapy. Very forgetful. Can not recall what I say to her even 5 minutes later. General Appearance: cooperative HEENT Mouth: dry mucous membranes Resp normal respiratory effort and clear to auscultation bilaterally Effort and Inspection: Negative for tachypneic Cardio no gallops Cardio Narrative: Irregular irregular rhythm with controlled ventricular response. She is on Coreg 6.25 mg twice daily. GI normal to inspection, nondistended, normoactive bowel sounds and soft to palpation GI Narrative: Bowel sounds are not hyperactive. She has no guarding with palpation and does not complain of any pain with palpation. Extremity no calf tenderness General Extremity: Negative for edema Skin Rashes: no rashes Assessment & Plan Assessment/Plan (1) Debility: (2) Ischemic cerebrovascular accident (CVA): (3) Longstanding persistent atrial fibrillation: (4) Anticoagulant long-term use: (5) Cognitive dysfunction: (6) Dementia: QUALIFIERS: Dementia type: unspecified type Dementia severity: severe Dementia behavioral or psychological symptom: with anxiety Qualified Code(s): F03.C4 - Unspecified dementia, severe, with anxiety PLAN: Family has been aware of cognitive deficits for some time. Pt not safe to live alone anymore. She will need 24/7 supervision. Family manages finances. Needs some one to manage her meds. (7) Facial droop: (8) Dysarthria: (9) Urinary incontinence: QUALIFIERS: Urinary Incontinence type: unspecified incontinence Qualified Code(s): R32 - Unspecified urinary incontinence (10) Essential hypertension: (11) HLD (hyperlipidemia): QUALIFIERS: Hyperlipidemia type: unspecified Qualified Code(s): E78.5 - Hyperlipidemia, unspecified (12) Arthritis involving multiple sites: (13) Complicated urinary tract infection: PLAN: Plan 1. Continue therapy 2. Check a CBC with differential and a BMP today. 3. Check a Hemoccult stool......she had a BM with therapy today and it was soft and brown, no black and liquid 4. Discontinue Rocephin and start Duricef 500 mg twice daily for 5 additional days to complete 7 days of treatment for urinary tract infection. 5. Will discharge Sunday to [facility]. Charges/Coding Visit Charges Inpatient E&M: 99124 Subs Hosp L2
[2025-08-13 11:14] LABS: Hematocrit 39.1 % (37-47); Hemoglobin 13.3 g/dL (12.0-15.0); Immature Granulocytes Count 0.010 X10^3/uL (0.0-0.0); Mean Corp Hgb Conc 34.0 g/dL (32-36); Mean Corpuscular Volume 94.7 fL (81-99); Mean Platelet Vol. 10.4 fl (6.2-12.0); NRBC Flagged by Analyzer 0 % (0-5); Platelet Count 260 K/mm3 (150-450); RBC Distribution Width CV 12.1 % (11.6-14.6); RBC Distribution Width SD 42.1 fl (35.1-43.9); Red Blood Count 4.13 M/mm3 (4.2-5.4); White Blood Count 5.6 K/mm3 (4.4-11.0)
[2025-08-13 11:34] LABS: Anion Gap 9 (5-15); BUN 15 mg/dL (4-19); BUN/Creat Ratio 26.3 RATIO (10-20); Calcium,Total 8.8 mg/dL (7.6-11.0); Carbon Dioxide 23.5 mmol/L (21.0-32.0); Chloride 105 mmol/L (98-108); Estimated Creatinine Clearance 37.15 ml/min (50-250); Glucose 90 mg/dL (70-99); Potassium 3.6 mmol/L (3.3-5.1)
--- NOTE | 2025-08-13 12:44 | CASEMGMT ---
Social Work IDT met with patient and two dtrs for Team meeting. Discussed patient's progress in PT/OT/ST/SN/MD. Confirmed DC plans to [facility] on 08/15. Dtr's to transport at 1100. [place] will provide outpatient therapy. No other needs noted. Tammy Rome GLUE CLAMP OPERATOR COMPLIANCE REPRESENTATIVE DEALER
[2025-08-13] MEDS: Potassium Chloride Oral Tablet 20 MEQ PO (16:34)
[2025-08-13 17:00] VITALS: BMI 19.3
[2025-08-13 18:00] VITALS: BP 145/84; PULSE 63; RESP 18; TEMP 36.6; O2SAT 99
[2025-08-13 20:15] VITALS: BP 138/61; PULSE 67; RESP 16; TEMP 36.9; O2SAT 95
[2025-08-13] MEDS: MELATONIN 3 MG TABLET PO (20:35)
[2025-08-13 22:00] VITALS: PULSE 67; RESP 16; O2SAT 95
[2025-08-14 03:55] VITALS: BMI 19.3
[2025-08-14 06:00] VITALS: BP 159/63; PULSE 52; RESP 16; TEMP 36.7; O2SAT 98; BMI 19.1
[2025-08-14 08:06] VITALS: BP 139/44; PULSE 69
[2025-08-14] MEDS: Cholecalciferol (VIT D3) 25 MCG TABLET (1,000 UNITS) 50 MCG PO (08:58)
[2025-08-14] MEDS: Potassium Chloride Oral Tablet 10 MEQ PO (08:58)
[2025-08-14] MEDS: Fluorometholone 0.1% Susp 1 DRP DROPS OPHTHALMIC ×2 (08:59→21:02)
[2025-08-14] MEDS: Arthritis Pain Compound 60 CLICK TUBE TOPICAL ×2 (08:59→21:01)
[2025-08-14] MEDS: Psyllium 1 PACKET PO (08:59)
[2025-08-14] MEDS: 0.9% Saline Lock 10 ML Syringe IV (09:45)
--- NOTE | 2025-08-14 11:13 | PCM.TXEXTCAR ---
Diet Diet Order/Speech Therapy: [facility]PATIENT [facility] Diet / Speech Therapy Order(s) 08/02/25 14:11 Diet: Cardiac - Heart Healthy Type of Dietary Supplement:: 240mL Ensure+HP w/ Break Diet Comments: No caffeine/ acidic drinks Routine Orders/Code Status Enema Type: Fleetz Enema Frequency: Daily PRN Suppository Type: Dulcolax 10mg Suppository Frequency: Daily PRN Code Status: DNRCC-A (No intubation) DC O2, CPAP, BIPAP needs Home O2 Discharge instructions: No Therapies Weight Bearing: Full weight bearing Physical Therapy: Eval and Treat Occupational Therapy: Eval and Treat Speech Therapy: Eval and Treat Problem/Diagnosis (1) Debility: Status: Acute Code(s): R53.81 - Other malaise (2) Ischemic cerebrovascular accident (CVA): Status: Acute Code(s): I63.9 - Cerebral infarction, unspecified Comment: Foci of restricted diffusion in the left external capsule and [place] radiata. (3) Longstanding persistent atrial fibrillation: Status: Acute Code(s): I48.11 - Longstanding persistent atrial fibrillation (4) Facial droop: Status: Acute Code(s): R29.810 - Facial weakness Comment: present with initial presentation with stroke sx but, has improved and is barely noticeable at the time of my exam. (5) Dysarthria: Status: Inactive Code(s): R47.1 - Dysarthria and anarthria Comment: Minimal. I can clearly understand everything that she is saying to me. (6) Cognitive dysfunction: Status: Chronic Code(s): F09 - Unspecified mental disorder due to known physiological condition Plan: Acute confusion on chronic dementia. Only scored 20 out of a possible 50 on the brief cognitive assessment. (7) Complicated urinary tract infection: Status: Acute Code(s): N39.0 - Urinary tract infection, site not specified Comment: ASSOCIATED WITH ALTERED MENTAL STATUS. Due to Proteus mirabilis. (8) Urinary incontinence: Status: Acute Code(s): R32 - Unspecified urinary incontinence Plan: Occasional......exacerbated by UTI recently. (9) Atrial fibrillation: Status: Acute Code(s): I48.91 - Unspecified atrial fibrillation (10) Anticoagulant long-term use: Status: Chronic Code(s): Z79.01 - terminal carman (current) use of anticoagulants Plan: Continue Xarelto at 15 mg daily. She is on a reduced dose because her age is greater than 80 and her weight is less than 60 kg. If the creatinine clearance drops below 30 she will need to be transitioned to Eliquis 2.5 mg twice daily. Comment: Xarelto (11) Dementia: Status: Chronic Code(s): F03.90 - Unspecified dementia, unspecified severity, without behavioral disturbance, psychotic disturbance, mood disturbance, and anxiety Plan: Family has been aware of cognitive deficits for some time. Pt not safe to live alone anymore. She will need / supervision. Family manages finances. Needs some one to manage her meds. (12) Essential hypertension: Status: Chronic Code(s): I10 - Essential (primary) hypertension Plan: Systolic blood pressure is mildly above goal of 130 but she is 89 years old with dementia and she will not likely benefit from strict control of her systolic blood pressures which may be elevated secondary to arterial sclerosis and decreased compressibility of her arteries. Will defer adjustment of antihypertensives to Dr. Fabian. She has a rare diastolic greater than 180. (13) HLD (hyperlipidemia): Status: Chronic Code(s): E78.5 - Hyperlipidemia, unspecified Plan: Intolerant of statins secondary to myalgias/arthralgia. She has been placed on Zetia 10 mg daily and is tolerating. Would recheck a lipid panel and liver panel in 4 to 6 weeks. (14) Arthritis involving multiple sites: Status: Chronic Code(s): M12.9 - Arthropathy, unspecified Plan: Pain is worst in the R knee. We have been using a compounded arthritis cream to the R knee. Will DC on a Lidocaine patch and Voltaren gel. May benefit from an ortho consult and this was discussed with her dtr's. We have been bracing the R knee. Plan 1. Will discharge Sunday to [facility]. 2. Follow-up with Dr. Natali Fabian postdischarge from rehab for primary care 3. Recommend follow-up with orthopedics regarding right knee pain which is chronic secondary to osteoarthritis. May benefit from a steroid injection or Synvisc. 4. Recommend follow-up with neurology regarding stroke. Recommended to her family that they ask the neurologist if she would benefit from treatment of suspected Alzheimer's disease. Family is resistant to this. 5. Finish 7 days of antibiotics for complicated urinary tract infection secondary to Proteus mirabilis 6. Recheck a lipid panel and liver panel in 4 to 6 weeks since she is now on Zetia. Allergies/Procedures Done in Hospital Allergies clindamycin Allergy (Verified 07/30/25 17:48) Other hyoscyamine Allergy (Verified 07/30/25 17:48) Other Penicillins Allergy (Verified 07/30/25 17:48) Hives Ccyywhf-YXS-TwT Reductase Inhibitor (Zszeinj-Ocg-Zgu Reductase Inhibitor) Allergy (Verified 07/31/25 15:41) Pain in joints increased liver enzymes nitrofurantoin (From Macrobid) Adverse Reaction (Mild, Verified 07/30/25 17:48) altered mental status glucosamine Adverse Reaction (Verified 07/30/25 17:48) Other Procedures: Transthoracic Echo (Ejection fraction is 60%. Severe left atrial enlargement and moderate right atrial enlargement. Mild to moderate mitral valve insufficiency and moderate tricuspid valve insufficiency. Aortic sclerosis with no stenosis. Mild AI.) Type of Care/Length of Stay Estimated LOS: More Than 30 Days Type of Care Needed: Shelter/Assisted Living Rehab Potential: Fair Prognosis: Fair Additional Orders/Day of Discharge Day of Discharge: 08/15/25 Dietary and Speech Recommendations Dietitian Recommendations/Changes: Continue Cardiac diet. 240ml ensure plus HP w/ breakfast tray. Trend weight at follow-up. Follow Up Care Please follow up with your Primary Care Physician in: Dr. Natali Frausto in 1-2 weeks post DC from rehab. Family to make appt Please Follow Up With: Yana Zhao NP-C When: Appt is listed later in this document. Discharge Plan Admission Admit Date/Time: 08/02/25 13:15 Primary Reason for Your Visit: Post stroke debility Attending Provider: Nicole Mei Primary Care Provider: Deepika Fabian Discharge Orders/Prescriptions Prescriptions: New acetaminophen 325 mg Tablet 650 mg PO Q6H PRN PRN (Reason: Pain Score 1-10) Qty: 1 0RF amlodipine 2.5 mg Tablet 2.5 mg PO DAILY Qty: 1 0RF bisacodyl 10 mg Suppository 10 mg KS X1 PRN (Reason: Constipation) Qty: 1 0RF carvedilol 6.25 mg Tablet 6.25 mg PO BIDCM Qty: 1 0RF melatonin 3 mg Tablet 3 mg PO QHS Qty: 1 0RF cefadroxil 500 mg Capsule 500 mg PO BID Qty: 6 0RF Rx Instructions: Last dose will be AM 08/18/25 potassium chloride 10 mEq Tablet,Er Particles/Crystals 10 meq PO DAILYCM Qty: 1 0RF Daily Fiber (psyllium-aspart) 3 gram Powder In Packet 1 packet PO DAILY Qty: 1 0RF Xarelto 15 mg Tablet 15 mg PO DINNER Qty: 1 0RF diclofenac sodium [Voltaren Arthritis Pain] 1 % gel 4 g topical BID Qty: 100 0RF Rx Instructions: Apply to the R knee lidocaine 4 % adhesive patch,medicated 1 patch topical DAILY Qty: 1 0RF Rx Instructions: apply to the R knee Continued cyanocobalamin (vitamin B-12) 1,000 mcg tablet 1,000 mcg PO DAILY ferrous sulfate [Feosol] 325 mg (65 mg iron) tablet 325 mg PO QODAY (DME) handicap placard See Rx Instructions .ROUTE .MEDSUPPLY Qty: 1 0RF Rx Instructions: Length of time: 5 years Diagnosis: Impaired physical mobility Z74.09 losartan 100 mg tablet 100 mg PO DAILY Qty: 90 1RF ezetimibe 10 mg Tablet 10 mg PO DAILY Qty: 0 0RF cholecalciferol (vitamin D3) 25 mcg (1,000 unit) tablet 2,000 unit PO DAILY Discontinued carvedilol [Coreg] 3.125 mg tablet 3.125 mg PO BID Qty: 180 3RF Rx Instructions: must administer with a meal/food melatonin 10 mg Tablet,Disintegrating 10 mg PO QHS Qty: 0 0RF sennosides-docusate sodium [Stimulant Laxative Plus] 8.6-50 mg Tablet 2 tab PO BID Qty: 0 0RF Xarelto 20 mg tablet 20 mg PO QPM Qty: 90 3RF Rx Instructions: must administer with evening meal No Action fluorometholone 0.1 % drops,suspension 1 drp ophthalmic (eye) BID PRN (Reason: Dry Eyes) Referrals / Follow Up: Yana Zhao NP-C [Med Staff - Adv Practice Prof, Neurology] - 08/25/25 2:00 pm Disposition Disposition (needs filled in before D/C Order can be placed): Assisted Living (8) Urinary incontinence Qualifiers: Urinary Incontinence type: unspecified incontinence Qualified Code(s): R32 - Unspecified urinary incontinence (11) Dementia Qualifiers: Dementia type: unspecified type Dementia severity: severe Dementia behavioral or psychological symptom: with anxiety Qualified Code(s): F03.C4 - Unspecified dementia, severe, with anxiety (13) HLD (hyperlipidemia) Qualifiers: Hyperlipidemia type: unspecified Qualified Code(s): E78.5 - Hyperlipidemia, unspecified
--- NOTE | 2025-08-14 11:53 | EX.DISCHREH ---
Providers Date of Admission: 08/02/25 Date of Discharge: 08/15/25 Primary Care Physician: Dr. Deepika Fabian MD none Reason For Visit: CVA Diagnosis Discharge Diagnosis (1) Debility: Status: Acute Code(s): R53.81 - Other malaise (2) Ischemic cerebrovascular accident (CVA): Status: Acute Code(s): I63.9 - Cerebral infarction, unspecified Plan: MRI showed foci of restricted diffusion in the left external capsule and fairbanks radiata consistent with acute infarction on 07/31/2025. (3) Longstanding persistent atrial fibrillation: Status: Chronic Code(s): I48.11 - Longstanding persistent atrial fibrillation (4) Facial droop: Status: Acute Code(s): R29.810 - Facial weakness (5) Dysarthria: Status: Resolved Code(s): R47.1 - Dysarthria and anarthria (6) Cognitive dysfunction: Status: Chronic Code(s): F09 - Unspecified mental disorder due to known physiological condition Plan: Acute confusion on chronic dementia. Only scored 20 out of a possible 50 on the brief cognitive assessment. (7) Complicated urinary tract infection: Status: Acute Code(s): N39.0 - Urinary tract infection, site not specified Plan: Secondary to Proteus mirabilis. UTI associated with acute mental status changes/delirium. (8) Urinary incontinence: Status: Chronic Code(s): R32 - Unspecified urinary incontinence Qualifiers: Urinary Incontinence type: unspecified incontinence Qualified Code(s): R32 - Unspecified urinary incontinence Plan: Occasional......exacerbated by UTI recently. (9) Atrial fibrillation: Status: Chronic Code(s): I48.91 - Unspecified atrial fibrillation Qualifiers: Atrial fibrillation type: longstanding persistent Qualified Code(s): I48.11 - Longstanding persistent atrial fibrillation (10) Anticoagulant long-term use: Status: Chronic Code(s): Z79.01 - supervisor intermediates (current) use of anticoagulants Plan: Continue Xarelto at 15 mg daily. She is on a reduced dose because her age is greater than 80 and her weight is less than 60 kg. If the creatinine clearance drops below 30 she will need to be transitioned to Eliquis 2.5 mg twice daily. Creatinine clearance has ranged from 33.49-37.15 while on rehab. (11) Dementia: Status: Chronic Code(s): F03.90 - Unspecified dementia, unspecified severity, without behavioral disturbance, psychotic disturbance, mood disturbance, and anxiety Qualifiers: Dementia behavioral or psychological symptom: with anxiety Dementia severity: severe Dementia type: unspecified type Qualified Code(s): F03.C4 - Unspecified dementia, severe, with anxiety Plan: Family has been aware of cognitive deficits for some time. Pt not safe to live alone anymore. She will need 24/ supervision. Family manages finances. Needs some one to manage her meds. (12) Essential hypertension: Status: Chronic Code(s): I10 - Essential (primary) hypertension Plan: Systolic blood pressure is mildly above goal of 130 but she is 89 years old with dementia and she will not likely benefit from strict control of her systolic blood pressures which may be elevated secondary to arterial sclerosis and decreased compressibility of her arteries. Will defer adjustment of antihypertensives to Dr. Fabian. She has a rare diastolic greater than 180. Antihypertensives at discharge from rehab include carvedilol 6.25 mg twice daily, losartan 100 mg daily and amlodipine 2.5 mg daily. The blood pressure for 48 hours prior to discharge has ranged from 125/50 to 159/73. Systolic is rarely been above 140. Diastolics are almost always less than 80. (13) HLD (hyperlipidemia): Status: Chronic Code(s): E78.5 - Hyperlipidemia, unspecified Qualifiers: Hyperlipidemia type: unspecified Qualified Code(s): E78.5 - Hyperlipidemia, unspecified Plan: Intolerant of statins secondary to myalgias/arthralgia. She has been placed on Zetia 10 mg daily and is tolerating without any adverse side effects. Would recheck a lipid panel and liver panel in 4 to 6 weeks. (14) Arthritis involving multiple sites: Status: Chronic Code(s): M12.9 - Arthropathy, unspecified Plan: Pain is worst in the R knee. We have been using a compounded arthritis cream to the R knee. Will DC on a Lidocaine patch and Voltaren gel. May benefit from an ortho consult and this was discussed with her dtr's. We have been bracing the R knee. Plan 1. Will discharge Sunday to [facility]. 2. Follow-up with Dr. Natali Fabian postdischarge from rehab for primary care 3. Recommend follow-up with orthopedics regarding right knee pain which is chronic secondary to osteoarthritis. May benefit from a steroid injection or Synvisc. 4. Recommend follow-up with neurology regarding stroke. Recommended to her family that they ask the neurologist if she would benefit from treatment of suspected Alzheimer's disease. Family is resistant to this. 5. Finish 7 days of antibiotics for complicated urinary tract infection secondary to Proteus mirabilis 6. Recheck a lipid panel and liver panel in 4 to 6 weeks since she is now on Zetia. Medications at Discharge Home Medications fluorometholone 0.1 % eye drops,suspension 1 drp ophthalmic (eye) BID PRN Dry Eyes 03/02/22 cyanocobalamin (vitamin B-12) 1,000 mcg tablet 1,000 mcg PO DAILY vitamin 05/08/23 ferrous sulfate 325 mg (65 mg iron) tablet (Feosol) 325 mg PO QODAY supplement 05/08/23 handicap placard #1 ea 01/23/24 cholecalciferol (vitamin D3) 25 mcg (1,000 unit) tablet 2,000 unit PO DAILY vitamin 08/08/24 losartan 100 mg tablet 100 mg PO DAILY blood pressure #90 tabs 06/29/25 ezetimibe 10 mg tablet 10 mg PO DAILY hypercholesterolemia #0 tabs 08/02/25 acetaminophen 325 mg tablet 650 mg (2 x 325 mg) PO Q6H PRN PRN Pain Score 1-10 #1 TAB 08/14/25 amlodipine 2.5 mg tablet 2.5 mg PO DAILY #1 TAB 08/14/25 bisacodyl 10 mg rectal suppository 10 mg IA X1 PRN Constipation #1 ea 08/14/25 carvedilol 6.25 mg tablet 6.25 mg PO BIDCM #1 TAB 08/14/25 cefadroxil 500 mg capsule 500 mg PO BID #6 caps 08/14/25 diclofenac sodium 1 % topical gel (Voltaren Arthritis Pain) 4 g topical BID #100 grams 08/14/25 lidocaine 4 % topical patch 1 patch topical DAILY pain #1 ea 08/14/25 melatonin 3 mg tablet 3 mg PO QHS #1 TAB 08/14/25 potassium chloride 10 mEq tablet,extended release(part/cryst) 10 meq PO DAILYCM #1 TAB 08/14/25 psyllium husk 3 gram oral powder packet (Daily Fiber (psyllium-aspartame)) 1 packet PO DAILY #1 ea 08/14/25 rivaroxaban 15 mg tablet (Xarelto) 15 mg PO DINNER #1 TAB 08/14/25 Physical Exam Const alert and no apparent distress Constitutional Narrative: Pleasant and talkative. She is always very cooperative with therapy. Very forgetful. Can not recall what I say to her even 5 minutes later. General Appearance: cooperative HEENT Mouth: dry mucous membranes Resp normal respiratory effort and clear to auscultation bilaterally Effort and Inspection: Negative for tachypneic Cardio no gallops Cardio Narrative: Irregular irregular rhythm with controlled ventricular response. She is on Coreg 6.25 mg twice daily. GI normal to inspection, nondistended, normoactive bowel sounds and soft to palpation GI Narrative: Bowel sounds are not hyperactive. She has no guarding with palpation and does not complain of any pain with palpation. Extremity no calf tenderness General Extremity: Negative for edema Skin Rashes: no rashes Neuro Neuro Narrative: Alert, oriented to person and place and to the year. No facial asymmetry. Tongue protrudes in the midline. Palate elevates symmetrically. Pupils are equal, round and reactive to light. Extraocular muscles are intact. No visual field cuts. No diplopia. No paresthesias in the face. Equal shoulder shrug bilaterally. No drift with either upper extremity. Intact sensation in the upper extremities. No ataxia with the upper extremities. No drift with either lower extremity. No paresthesias in the lower extremities. No ataxia of the lower extremities. Good plantarflexion and dorsiflexion bilaterally. Some trouble with identifying pictures. Able to describe some of the things going on in a picture I showed her. Still with mild to moderate aphasia. No difficulty with reading. Psych affect normal Psych Narrative: Always pleasant. Sleeping well at night since the UTI has been treated. Good appetite. Attitude: calm and engaged Activity / Motor Behavior: appropriate eye contact Weight / BMI Weight Weight: 103 lb 9.876 oz Body Mass Index (BMI) 19.1 ABG / Lab / Microbiology Data 08/13/25 11:00 08/13/25 11:00 Microbiology: Microbiology 08/11/25 16:20 Urine, Catheterized Urine Culture - Final Proteus mirabilis Indicators for Scoring Admitted with or Primary Diagnosis of CVA/Stroke: Yes Hx of CVA/Stroke: Yes Modified Sully Score MRS Score at time of Evaluation: 2-Slight disability (down from a 4 at admission to rehab.) NIHSS NIHSS 1a. Level of Consciousness: 0 - Alert; keenly responsive 1b. LOC Questions: 1 - Answers ONE question correctly 1c. LOC Commands: 0 - Performs BOTH tasks correctly 2. Best Gaze: 0 - Normal 3. Visual: 0 - No visual loss 4. Facial Palsy: 0 - Normal symmetrical movements 5a. Left Arm: 0 - No drift; arm holds 90 (or 45) degrees for full 10 seconds 5b. Right Arm: 0 - No drift; arm holds 90 (or 45) degrees for full 10 seconds 6a. Left Le - No drift; leg holds 30-degree position for full 5 seconds 6b. Right Le - No drift; leg holds 30-degree position for full 5 seconds 7. Limb Ataxia: 0 - Absent 8. Sensory: 0 - Normal; no sensory loss 9. Best Language: 1 - [id number] aphasia; 10. Dysarthria: 0 - Normal 11. Extinction and Inattention: 0 - No abnormality Total: 2 Stroke Questions Stroke Team Activated: No D/C Instructions Diet Diet Order/Speech Therapy: INPATIENT Hospital Diet / Speech Therapy Order(s) 08/02/25 14:11 Diet: Cardiac - Heart Healthy Type of Dietary Supplement:: 240mL Ensure+HP w/ Break Diet Comments: No caffeine/ acidic drinks Discharge order: Continue INPATIENT Hospital Diet / Speech Therapy Orders: Yes DC O2, CPAP, BIPAP Needs Home O2 Discharge instructions: No Please Follow Up With: Yana Zhao, [facility] Meaningful Use Info Meaningful Use Meaningful Use Diagnoses (Choose all that apply): Ischemic CVA (embolic due to AF on no AC) CVA Therapy Assessed for PT,OT and/or ST?: Yes Ischemic Stroke Antithrombotic order at d/c?: No Reason antithrombotic not ordered: Treatment not Indicated (stroke was embolic due to AF with no AC) Dx of Atrial fib/flutter?: Yes Anticoagulant at discharge?: Yes Statin Dosing Therapy Reference: STATIN DOSE THERAPY REFERENCE: * Patients > 75 years receive moderate or high dose statin therapy. * Patients 75 years or YOUNGER should receive HIGH intensity statin dose unless contraindicated. You will be required to document reason for non-treatment if statin daily dose does not meet guidelines. HIGH DOSE STATIN THERAPY DAILY Atorvastatin > than or = to 40 mg Rosuvastatin > than or = to 20 mg Amlodipine + Atorvastatin > than or = to 2.5/40 mg Ezetimibe + Simvastatin 10/80 mg Simvastatin 80mg Statins at discharge?: No Reason Statin not ordered: Drug Intolerance (Myalgia/arthralgia. She was started on Zetia which she is tolerating.) Primary Dx Acute Ischemic CVA?: Yes IV thrombolytic ordered during stay?: No Reason IV thrombolytic not ordered: Procedure not Indicated Discharge Plan Admission Admit Date/Time: 08/02/25 13:15 Primary Reason for Your Visit: Post stroke debility Attending Provider: Nicole Mei Primary Care Provider: Deepika Fabian Discharge Orders/Prescriptions Prescriptions: New acetaminophen 325 mg Tablet 650 mg PO Q6H PRN PRN (Reason: Pain Score 1-10) Qty: 1 0RF amlodipine 2.5 mg Tablet 2.5 mg PO DAILY Qty: 1 0RF bisacodyl 10 mg Suppository 10 mg IA X1 PRN (Reason: Constipation) Qty: 1 0RF carvedilol 6.25 mg Tablet 6.25 mg PO BIDCM Qty: 1 0RF melatonin 3 mg Tablet 3 mg PO QHS Qty: 1 0RF cefadroxil 500 mg Capsule 500 mg PO BID Qty: 6 0RF Rx Instructions: Last dose will be AM 08/18/25 potassium chloride 10 mEq Tablet,Er Particles/Crystals 10 meq PO DAILYCM Qty: 1 0RF Daily Fiber (psyllium-aspart) 3 gram Powder In Packet 1 packet PO DAILY Qty: 1 0RF Xarelto 15 mg Tablet 15 mg PO DINNER Qty: 1 0RF diclofenac sodium [Voltaren Arthritis Pain] 1 % gel 4 g topical BID Qty: 100 0RF Rx Instructions: Apply to the R knee lidocaine 4 % adhesive patch,medicated 1 patch topical DAILY Qty: 1 0RF Rx Instructions: apply to the R knee Continued cyanocobalamin (vitamin B-12) 1,000 mcg tablet 1,000 mcg PO DAILY ferrous sulfate [Feosol] 325 mg (65 mg iron) tablet 325 mg PO QODAY (DME) handicap placard See Rx Instructions .ROUTE .MEDSUPPLY Qty: 1 0RF Rx Instructions: Length of time: 5 years Diagnosis: Impaired physical mobility Z74.09 losartan 100 mg tablet 100 mg PO DAILY Qty: 90 1RF ezetimibe 10 mg Tablet 10 mg PO DAILY Qty: 0 0RF cholecalciferol (vitamin D3) 25 mcg (1,000 unit) tablet 2,000 unit PO DAILY Discontinued carvedilol [Coreg] 3.125 mg tablet 3.125 mg PO BID Qty: 180 3RF Rx Instructions: must administer with a meal/food melatonin 10 mg Tablet,Disintegrating 10 mg PO QHS Qty: 0 0RF sennosides-docusate sodium [Stimulant Laxative Plus] 8.6-50 mg Tablet 2 tab PO BID Qty: 0 0RF Xarelto 20 mg tablet 20 mg PO QPM Qty: 90 3RF Rx Instructions: must administer with evening meal No Action fluorometholone 0.1 % drops,suspension 1 drp ophthalmic (eye) BID PRN (Reason: Dry Eyes) Referrals / Follow Up: Yana Zhao NP-C [Med Staff - Adv Practice Prof, Neurology] - 08/25/25 2:00 pm Disposition Disposition (needs filled in before D/C Order can be placed): Assisted Living Charges/Coding Visit Charges Inpatient E&M: 37882 Disch Hosp >30min Hospital Course RU Operations None Procedures Transthoracic echo (he left ventricular ejection fraction is 60 %. The left atrium is severely enlarged. The right atrium is moderately enlarged. Mild-Moderate (1-2+) mitral valve insufficiency. Moderate (2+) tricuspid valve insufficiency. Aortic sclerosis, no stenosis. Mild (1+) aortic valve insufficiency. ) Summary of Care Provided Minutes Spent on Discharge: 50 Hospital Course: DEA MERRITT, is a 89 YO F with a PMH of ischemic CVA in the right middle cerebral artery distribution (2021), atrial fibrillation, chronic anticoagulation with Xarelto, hypertension, hyperlipidemia, GERD, osteoarthritis, chronic constipation and anxiety who presented to the emergency room at [facility] on 07/30/2025 complaining of slurred speech and difficulty walking. Stat noncontrast CT brain showed no acute abnormalities. There were periventricular white matter hypodensities likely representing severe chronic microvascular ischemia. CTA of the head and neck showed no hemodynamically significant stenoses in the head or neck. She was not a candidate for thrombolytics due to Xarelto. She was admitted to the hospitalist service for stroke workup. MRI of the brain done 07/31/2025 showed foci of restricted diffusion in the left external capsule and fairbanks radiata consistent with acute infarction. Transthoracic echocardiogram showed mild concentric left ventricular hypertrophy with an ejection fraction of 60%. The left atrium was severely enlarged and the right atrium was moderately enlarged. There was mild to moderate mitral valve insufficiency and moderate tricuspid insufficiency. The pulmonary artery systolic pressure was estimated at 39 which is consistent with mild pulmonary hypertension. There was aortic valve sclerosis with no stenosis. Labs showed a total cholesterol of 258 with an LDL of 177. She lists statins as an allergy due to myalgia/arthralgia. HDL was 61 and triglycerides were 111. TSH was normal. Troponins were unremarkable. LFTs in March 2025 were normal. She was seen by PT/OT/ST following admission and acute inpatient rehab was recommended. She was transferred to the acute inpatient rehab unit at [facility] on 08/02/2025 for 3 hours of therapy daily to restore function/independence at or near her level prior to the most recent stroke. While on rehab she had a BCAT (brief cognitive assessment tool) given by . She scored only 20 out of possible 50 points indicating severe cognitive dysfunction. She was always cooperative with therapy and made good progress with PT and OT. She was impulsive but, did not have significant behavioral issues until 5 or 6 days prior to DC. She had more confusion and she was up and agitated at night. Was wanting to use the BR frequently and family had to be called to help calm her. A UA was checked and showed greater than 100 WBCs per high-powered field with positive nitrites. There were 0-5 RBCs. Urine culture grew Proteus mirabilis that was resistant to nitrofurantoin and sensitive to everything else. She had 2 doses of Rocephin while we awaited the results of the urine culture. she had no rash and no other adverse reaction to Rocephin (she list PCN as an allergy....hives). After the results of the urine culture were made available she was transitioned to Cefadroxil 500 mg BID which she is also tolerating with no rash. She will finish 7 days of antibiotics. Dea has significant cognitive dysfunction which has been progressive over the past few years.......her dtrs have been aware of this. The CVA exacerbated confusion and she will no longer be able to live alone. She needs 24/7 supervision and medication management. Her dtr takes care of her finances. After discussion with the SW it was decided that she should go to [facility] assisted living at [place] from rehab. Dea was agreeable to this. She was discharged from rehab on 08/15/25. At the time of DC from rehab she is ambulating up to 225 feet with a front wheeled walker at standby assist/contact-guard assist while wearing a right knee brace for support. She is able to transition from sitting to standing at standby assist and she can stand pivot with a front wheel walker at standby assist to contact-guard assist. She can ascend/descend three 4 inch steps and two 6 inch steps with 2 handrails at contact-guard assist 2 times without stopping for a total of 10 steps at contact-guard assist with a brace on the right knee. She is able to complete grooming tasks while standing at the sink at supervision/setup. She is independent with eating. She is supervision/set up for bathing. She requires minimal assistance with upper body dressing and is standby assist for lower body dressing. She is supervision/set up for toilet transfer and toileting. She is SBA for tub/shower transfer. Lab on 08/13/2025 showed normal white blood cell count 5.6 and a normal hemoglobin at 13.3 with an MCV of 94.7. Platelets are within normal limits. Sodium is 137 and the potassium is 3.6. The BUN is stable at 15 with a stable creatinine at 0.59. Calcium was within normal limits. She has had a mildly increased hemoglobin A1c at 5.7. LFTs are normal. While on rehab the Xarelto was decreased from 20 mg to 15 mg because her creatinine clearance is in the 30s and her weight is less than 60 kg and her age is greater than 80 years. If her creatinine clearance should drop to less than 30 she will need to be transition to Eliquis. She we will continue to follow-up with Dr. Natali Frausto for primary care. She has an appointment to follow-up with Yana Zhao NP from neurology for follow-up on the stroke.
[2025-08-14 16:07] VITALS: BMI 19.1
[2025-08-14 17:25] VITALS: BP 148/80; PULSE 73; RESP 16; TEMP 36.8; O2SAT 98
[2025-08-14] MEDS: MELATONIN 3 MG TABLET PO (21:02)
[2025-08-14 21:12] VITALS: BMI 19.1
[2025-08-15 04:52] VITALS: BP 143/70; PULSE 69; RESP 16; TEMP 36.7; O2SAT 98
[2025-08-15] MEDS: Cholecalciferol (VIT D3) 25 MCG TABLET (1,000 UNITS) 50 MCG PO (09:16)
[2025-08-15] MEDS: Potassium Chloride Oral Tablet 10 MEQ PO (09:16)
[2025-08-15] MEDS: Fluorometholone 0.1% Susp 1 DRP DROPS OPHTHALMIC (09:16)
[2025-08-15] MEDS: Arthritis Pain Compound 60 CLICK TUBE TOPICAL (09:17)
[2025-08-15] MEDS: Psyllium 1 PACKET PO (09:17)
[2025-08-15 09:35] VITALS: BMI 19.1
--- NOTE | 2025-08-15 10:26 | NURSING ---
Report given to [facility] assisted living and patient discharged at this time with daughter.
== END 2025-08-15 10:28 | disposition home or self-care (01) | DRG 57 ==
PROVIDERS: Admitting Provider Internal Medicine; PCP Internal Medicine; Visit Provider Internal Medicine
DX: I69.322 Dysarthria following cerebral infarction (principal); F03.C4 Unspecified dementia, severe, with anxiety; I48.11 Longstanding persistent atrial fibrillation; N39.0 Urinary tract infection, site not specified; Z16.39 Resistance to other specified antimicrobial drug; I69.318 Other symptoms and signs involving cognitive functions following cerebral infarction; I08.3 Combined rheumatic disorders of mitral, aortic and tricuspid valves; I10 Essential (primary) hypertension; E78.5 Hyperlipidemia, unspecified; M19.90 Unspecified osteoarthritis, unspecified site; K21.9 Gastro-esophageal reflux disease without esophagitis; M15.9 Polyosteoarthritis, unspecified; K59.09 Other constipation; I69.392 Facial weakness following cerebral infarction; B96.4 Proteus (mirabilis) (morganii) as the cause of diseases classified elsewhere; Z79.899 Other long term (current) drug therapy; Z79.01 Long term (current) use of anticoagulants; R32 Unspecified urinary incontinence
CPT/HCPCS: 36415; 80048; 80053; 81001; 82274; 83036; 83735; 84100; 85025; 87077; 87086; 87088; 87186; 92507; 92523; 97110; 97112; 97116; 97162; 97167; 97530; 97535; A4216

== ENCOUNTER → 2025-08-18 | Outpatient (REF) | payer MEDICARE, OTHER, SELFPAY ==
--- OUTSIDE RECORDS SUMMARY | 2025-08-18 03:27 | XMS RPT_ITS | CCD ---
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 Vamsi Mota Primary Care Provider Dr. Vamsi Mota Referring Provider Dr. Andrae Tomlinson Attending Provider Dr. Deepika Fabian Attending Provider [phone] Dr. Deepika Fabian Primary Care Provider Dr. Deepika Fabian Referring Provider Dr. Vamsi Mota Primary Care Provider Dr. Vamsi Mota Referring Provider Harris Mota MD Primary Care Provider Dr. Deepika Fabian Primary Care Provider Dr. Deepika Fabian Attending Provider [phone] Dr. Deepika Fabian Referring Provider [phone] Dr. Vamsi Mota Referring Provider Gisselle FUENTES, [place] Emma Balbuena Attending Provider Dr. Andrae Tomlinson Attending Provider Dr. Deepika Fabian Primary Care Provider Dr. Deepika Fabian Attending Provider [phone] Dr. Deepika Fabian Referring Provider [phone] Dr. Deepika Fabian Primary Care Provider Dr. Deepika Fabian Attending Provider [phone] Dr. Deepika Fabian Referring Provider [phone] Bushra MANAGER COMPETITIVE INTELLIGENCE, MANAGER COMPETITIVE INTELLIGENCE-C Allison Attending Provider Unav ailable Friend, Dr. Muhammad Attending Provider [phone] Deepika Fabian Primary Care Provider Dr. Deepika Fabian Attending Provider [phone] Dr. Deepika Fabian Referring Provider [phone] Dr. Andrae Tomlinson Attending Provider [phone] Bushra MANAGER COMPETITIVE INTELLIGENCE, MANAGER COMPETITIVE INTELLIGENCE-C Allison Attending Provider Unav ailable Friend, Dr. Muhammad Attending Provider [phone] Reji FUENTES, [place] Ashu Balbuena Attending Provider Dr. Tobi Cedeno Emergency Provider Dr. Himanshu Reynolds Admit Provider Unavailable Dr. Himanshu Reynolds Attending Provider Unavailable Dr. Himanshu Reynolds Other Provider Unavailable Dr. Emanuel Rod Other Provider Dr. Rebecca Price Attending Provider Dr. Jody Moffett Attending Provider Dr. Jody Moffett Other Provider Dr. Deepika Fabian Primary Care Provider Dr. Deepika Fabian Referring Provider [phone] Dr. Melisa Montes Attending Provider Dr. Himanshu Reynolds Referring Provider Unavailable Dr. Jody Moffett Attending Provider Dr. Deepika Fabian Attending Provider [phone] Aleksey DUNN, Harris Vallejo Primary Care Provider Dr. Deepika Fabian Primary Care Provider Dr. Deepika Fabian Referring Provider [phone] Bushra MANAGER COMPETITIVE INTELLIGENCE, [place] Cooper Attending Provider Guerline Luna, Dr. Edwards Attending Provider [phone] [place], Dr. Muhammad Attending Provider [phone] Dr. Deepika Fabian Primary Care Provider Dr. Deepika Fabian Referring Provider [phone] GINA Sosa Attending Provider Dr. Deepika Fabian Attending Provider [phone] Aleksey DUNN, Harris Vallejo Primary Care Provider [phone] Caren DUNN, Dr. Poe Primary Care Provider [phone] Dr. Deepika Fabain MD Attending Provider Dr. Deepika Fabian MD Referring Provider Emma De La Torre Attending Provider [phone] Dr. Deepika Fabian MD Primary Care Provider [phone] Dr. Deepika Fabian MD Attending Provider Dr. Deepika Fabian MD Referring Provider Emma De La Torre Attending Provider [phone] Dr. Deepika Fabian MD Primary Care Physician [phone] Dr. Deepika Fabian MD Attending Physician [phone] Dr. Deepika Fabian MD Referring Provider Kirstin DUNN, Dr. Millan Attending Physician Jody Moffett Admitting Unavailable Deepika Fabian Primary Care Unavailable Abundio Bettencourt Consulting Unavailable Irwin Emmanuel Attending Unavailable Adeli, Amir Consulting Unavailable Hinduja, Kaye Consulting Unavailable Zac, Sara Consulting Unavailable Zha, Natali Consulting Unavailable Aleksandra, Efrain Consulting Unavailable Pricilla, Cori Consulting Unavailable Bittapolina, Jean-Claude Consulting Unavailable Eric Grande Consulting Unavailable Thomas Palencia Consulting Unavailable Meena Singh Consulting Unavailable Nathalie Cantu Consulting Unavailable Cahrles Somers Consulting Unavailable Carey Garza Consulting Unavailable RidAlcira jamil Consulting Unavailable Ellen, Mhd Teodoro Consulting UnavailTobi Pattno Consulting Unavailable Eastman, Ramdesiree Consulting Unavailable Behzad Veronica Consulting Unavailable Viraj Garibay Consulting Unavailable Hannacatrachito, Yousereanna Consulting Unavailable Zuhair, Jody Consulting Unavailable Irwin Emmanuel Consulting Unavailable Caren, Deepika Primary Care Unavailable Sementi, Nicole Faust Admitting Unavaila ble Sementi, Nicole Faust Attending Unavaila ble Sementi, Ursula Consulting Unavaila ble Caren, Deepika Primary Care Unavailable [place], Deepika Referring Unavailable Emma De La Torre Attending Unavail able Caren, Deepika Attending Unavailable Caren, Deepika Primary Care Unavailable Caren, Deepika Referring Unavailable [place], Deepika Referring Unavailable [place], Deepika Attending Unavailable Caren, Deepika Primary Care Unavailable [place], Deepika Attending Unavailable [place], Deepika Primary Care Unavailable Caren, Deepika Referring Unavailable [place], Deepika Attending Unavailable [place], Deepika Primary Care Unavailable [place], Deepika Referring Unavailable [place], Deepika Attending Unavailable Caren, Deepika Primary Care Unavailable Caren, Deepika Referring Unavailable Caren, Deepika Primary Care Unavailable Caren, Deepika Referring Unavailable Emma De La Torre Attending Unavail able [place], Deepika Attending Unavailable [place], Deepika Referring Unavailable Caren, Deepika Primary Care Unavailable [place], Deepika Primary Care Unavailable Sementi, Ursula Admitting Unavaila ble Sementi, Nicole Faust Attending Unavaila ble Moffett, Jody Admitting Unavailable Caren, Deepika Primary Care Unavailable Abundio Bettencourt Consulting Unavailable Irwin Emmanuel Attending Unavailable Adeli, Dianer Consulting Unavailable Hinduja, Kaye Consulting Unavailable Zac, Sara Consulting Unavailable Zha, Natali Consulting Unavailable AleksandraEfrain cline Consulting Unavailable PricillaCori vallejo Consulting Unavailable BitJean-Claude fraga Consulting Unavailable Eric Grande Consulting Unavailable Thomas Palencia Consulting Unavailable Meena Singh Consulting Unavailable Nathalie Cantu Consulting Unavailable Charles Somers Consulting Unavailable Carey Garza Consulting Unavailable Alcira Garcia Consulting Unavailable Toshia Hughes Teodoro Consulting UnavailTobi Patton Consulting Unavailable Bethany Eastman Consulting Unavailable Behzad Veronica Consulting Unavailable Viraj Garibay Consulting Unavailable HanBakari hall Consulting Unavailable Moffett, Jody Consulting Unavailable [place], Deepika Primary Care Unavailable Ronald Brizuela Attending Unavailable Jody Moffett Attending Unavailable Moffett, Jody Consulting Unavailable Zuhair Jody Admitting Unavailable Caren, Deepika Primary Care Unavailable Allergies Allergy Classification Reported Allergen(s) Allergy Type Date of Onset Reaction(s) Facility (20 sources) Clindamycin Drug Allergy 09-06-20 18 Intolerance, Hypertension [facility] Work Phone: (20 sources) Glucosamine Drug Allergy 10-18-19 10 Intolerance, Other: See Comments, Arthralgia [facility] (20 sources) Hyoscyamine Drug Allergy 11-02-19 21 Swelling [facility] Work Phone: (20 sources) Penicillins; Translations: [Penicillins] Allergy to substance 09-18-20 21 Hives [facility] Work Phone: (19 sources) Igmzgqg-Jkr-Oex Reductase Inhibitor; Translations: [Cbyziej-Xpx-Anf Reductase Inhibitor] Allergy to substance 09-18-20 21 Pain in joints [facility] (14 sources) Aloe vera preparation Drug Allergy 02-08-20 17 Other: See Comments [facility] (14 sources) cumin allergenic extract Drug Allergy 09-23-20 20 GI Upset, Abdominal Discomfort [facility] Work Phone: (8 sources) HMG-CoA reductase inhibitor Propensity to adverse reactions to drug 10-18-19 10 Intolerance [facility] (13 sources) Turmeric extract Drug Allergy 09-23-20 20 GI Upset [facility] Work Phone: (14 sources) Venom-Wasp Propensity to adverse reactions to drug 06-02-20 21 Swelling [facility] (1 source) Benzocaine / Triclosan Drug Allergy 02-08-20 17 Fatigue [facility] (1 source) Curcumin Drug Allergy 09-23-20 20 Abdominal Discomfort [facility] (1 source) Hmg-Coa Reductase Inhibitors (Statins) Propensity to adverse reactions to drug 02-16-20 22 Myalgia [facility] (1 source) Hyoscyamine Drug Allergy 11-02-19 21 Swelling [facility] (6 sources) HMG-CoA reductase inhibitor Propensity to adverse reactions to drug 10-18-19 10 Intolerance [facility] (4 sources) Nitrofurantoin Drug Allergy 01-29-20 25 altered mental status [facility] (1 source) Clindamycin Drug Allergy 07-30-20 25 [facility] (1 source) Glucosamine Drug Allergy 07-30-20 25 [facility] (1 source) Hyoscyamine Drug Allergy 07-30-20 25 [facility] (1 source) Nitrofurantoin Drug Allergy 07-30-20 25 [facility] Medications Current Medications Medication [...] mg/ml ophthalmic suspension (18 sources) Corticosteroid Start: Fluorometholone 0.1 % drops,suspension Active 1 NMA [...] Active 100 mg PO DAILY 90 1 June 29, 2025 10:16am blood pressure Complies with drug [...] mg tablet Discontinued 2.5 mg PO DAILY October 18, 2023 2:37pm April 19, 2024 [...] Start: 03-02-2022 End: 08-23-2022 autologous serum Discontinued 0 March 02, 2022 12:00am August 23, 2022 2:31pm 4 times a day in each eye Start: 03-02-2022 End: 08-23-2022 autologous serum Discontinue d March 02, 2022 12:00am August 23, 2022 2:31pm 4 times a day in each eye Start: 03-02-2022 End: 08-23-2022 autologous serum Discontinue d March 01, 2022 11:00pm August 23, 2022 1:31pm 4 times a day in each eye Start: 03-02-2022 autologous ser um Active March 02, 2022 12:00am 4 times a [...] Budesonide Discontinued 6 MG PO DAILY Ma y 2022 1:22pm March 02, 2023 12:51pm Start: [...] Discontinued 300 mg PO TWICE A DAY July 12, 2022 12:00am August 23, 2022 [...] Discontinued 100 mg PO TWICE A DAY 20 July 10, 2024 12:00am July 19, 2024 [...] Discontinued 20 mg PO TWICE A DAY July 27, 2016 12:00am February 15, 2022 3:55pm fluticasone propionate 0.05 mg/actuat metered dose nasal spray (13 sources) Corticosteroid Start: 07-12-2022 End: 08-23-2022 take 50 ug nasal route once daily Fluticasone Propionate (Flonase Allergy Relief) 50 mcg/actuation spray,suspension Discontinued 1 NMA INTRANASAL DAILY 16 July 12, 2022 12:00am August 23, 2022 [...] tablet Discontinued 25 mg PO DAILY 30 October 03, 2022 10:48am February 08, 2023 2:22pm Start: 08-23-2020 End: 08-17-2021 take 1 tablet by mouth once daily hydroCHLOROthiazide (HYDRODIURIL, ESIDRIX) 25 mg tablet Take 1 tablet by mouth once daily. 90 tablet 3 08/23/2020 08/17/2021 Discontinued Comment on above: Take 1 tablet by sammi once daily. iohexol (OMNIPAQUE) 350 MG/ML injection [...] on above: Take 1 tablet by sammi twice daily as needed for up to [...] Start: 10-04-2010 take 2 tablets by mo uth once daily Methylsulfonylmethane (MSM) 500 mg ORAL [...] 75 MG PO TWICE A DAY 0 30 February 13, 2023 7:58am March 01, 2023 [...] oral tablet (20 sources) Nicotinic Acid Start: 022 End: 05-09-2 023 take 1 tablet by mouth at bedtime [...] 0 .ROUTE .COMPLEX February 08, 2023 2:22pm February 13, 2023 8:53am . 40mg daily x 1 [...] Start: 4 End: 4 Salicylic Acid (Medicated Rippey Removers) 40 % adhesive patch,medicated Discontinued 1 [...] on above: Take 2 capsules by m outh once daily. Vaginal Moisturizer Combo No.4 (1 [...] Start: 07-10-2023 take 1 tablet by sammi once daily Vibegron (Gemtesa) 75 mg tablet [...] sources) Bradycardia; Translations: [Bradycardia, unspecified] 04-28-2024 Episodic Delirium, dementia, and amnestic and other cognitive disorders (2 sources) Unspecified mental disorder due to known physiological condition; Translations: [Unspecified mental disorder due to known physiological condition] Onset: 08-14-2025 Chronic Disorders of lipid metabolism (20 sources) Hyperlipidemia; [...] Unspecified urinary incontinence; Translations: [Urinary incontinence, unspecified] Onset: 08-14-2025 07-05-2022 Chronic Immunizations and screening for infectious disease (3 sources) Encounter for immunization; Translations: [Need for prophylactic vaccination and inoculation against unspecified single disease] Onset: 06-29-2025 07-10-2023 Episodic Inflammation; infection of eye (except that caused by tuberculosis or sexually transmitteddisease) (13 sources) Bilateral punctate keratitis of eyes; 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, bilateral] Onset: 02-21-2021 02-21-2021 Chronic Malaise and fatigue (15 sources) Other fatigue; Translations: [Other malaise and fatigue] Onset: 08-14-2025 Episodic Nonspecific chest pain (5 sources) Chest pain; Translations: [Chest pain, unspecified] 09-29-2023 Episodic Nutritional deficiencies (1 source) Vitamin D deficiency, unspecified; Translations: [Vitamin D deficiency, unspecified] Onset: 04-06-2025 Chronic Occlusion or stenosis of precerebral arteries [...] sources) Long-term current use of anticoagulant; 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] 07-15-2022 Episodic Other aftercare (2 sources) 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; Translations: [halfway (current) use of anticoagulants] Onset: 08-14-2025 Episodic Other circulatory disease (13 sources) History [...] foot] 02-08-2023 Episodic Other connective tissue disease (2 sources) Facial weakness; Translations: [Facial weakness] Onset: 08-14-2025 Episodic Other gastrointestinal disorders (11 sources) Slow transit constipation; Translations: [Slow transit constipation] Episodic Other gastrointestinal disorders (20 sources) Diarrhea; Translations: [Diarrhea, unspecified] 11-01-2022 Episodic Other gastrointestinal disorders (18 sources) Diarrhea, unspecified; Translations: [Diarrhea] 11-01-2022 Episodic Other gastrointestinal disorders (5 sources) [...] cognitive functions and awareness] 03-31-2025 Episodic Other nervous system disorders (2 sources) Dysarthria and anarthria; Translations: [Dysarthria and anarthria] Onset: 08-14-2025 Episodic Other nervous system disorders (1 source) Slurred speech; Translations: [Slurred speech] Onset: 08-12-2025 Episodic Other non-traumatic joint disorders (17 sources) Polyarthropathy; 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, unspecified] 03-02-2022 Chronic Other non-traumatic joint disorders (9 sources) Arthropathy, unspecified; 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, unspecified, multiple sites] Onset: 08-14-2025 Chronic Other skin disorders (1 source) Seborrheic [...] sources) R26.81 - Unsteadiness on feet Unclassified (2 sources) Longstanding persistent atrial fibrillation; Translations: [Longstanding persistent atrial fibrillation] Onset: 08-14-2025 Unclassified (2 sources) Unspecified dementia, severe, with anxiety; Translations: [Unspecified dementia, severe, with anxiety] Onset: 08-14-2025 Urinary tract infections (3 sources) Urinary tract infection, site not specified; Translations: [Urinary tract infection, site not specified] Onset: 08-14-2025 06-27-2023 Episodic Past or Other Problems Problem [...] Dysuria; Translations: [Dysuria] Onset: 01-28-2025 03-15-2023 Episodic Nutritional deficiencies (12 sources) Vitamin deficiency; Translations: [Vitamin deficiency, unspecified] Onset: 11-13-2024 11-13-2024 Episodic Other gastrointestinal disorders (14 sources) Oropharyngeal dysphagia; Translations: [Dysphagia, oropharyngeal phase] Onset: 04-13-2016 04-13-2016 Episodic Other gastrointestinal disorders (1 source) Functional [...] Test Name Value Interpretation Reference Range Facility Stool Occult Blood iFOBon STOB Positive Normal [facility] Comment on above: Performed By: #### L 500.2500, L100.0100 #### [facility] [address] [place], [address] Basic Metabolic Profile (BMP )on 08-13-2025 BUN/CRE 26.3 RATIO High 10-20 [facility] Comment on above: Performed By: #### L 500.2500, L100.0100 #### [facility] [address] [place], [address] Calcium [Mass/Vol] 8.8 mg/dL Normal 7.6-11.0 [facility] Comment on above: Performed By: #### L 500.2500, L100.0100 #### [facility] [address] [place], [address] Chloride [Moles/Vol] 105 mmol/L Normal 98-108 [facility] Comment on above: Performed By: #### L 500.2500, L100.0100 #### [facility] [address] [place], [address] CO2 [Moles/Vol] 23.5 mmol/L Normal 21.0-32.0 [facility] Comment on above: Performed By: #### L 500.2500, L100.0100 #### [facility] [address] [place], [address] Creatinine [Mass/Vol] 0.59 mg/dL Low 0.70-1.20 [facility] Comment on above: Performed By: #### L 500.2500, L100.0100 #### [facility] [address] [place], [address] ECRCL 37.15 ml/min Low 50-250 [facility] Comment on above: Performed By: #### L 500.2500, L100.0100 #### [facility] [address] [place], [address] GAP 9 Normal 5-15 [facility] Comment on above: Performed By: #### L 500.2500, L100.0100 #### [facility] [address] [place], [address] GFR/1.73 sq M.predicted among non-blacks MDRD (S/P/Bld) [Vol rate/Area] 87 mL/min/{1.73_m2} Normal >60 [facility] Comment on above: Result Comment: mL/m in/1.73m2 CKD-EPI Creatinine Equation (2020) Performed By: #### L 500.2500, L100.0100 #### [facility] [address] [place], [address] Glucose [Mass/Vol] 90 mg/dL Normal 70-99 [facility] Comment on above: Performed By: #### L 500.2500, L100.0100 #### [facility] [address] [place], [address] Potassium [Moles/Vol] 3.6 mmol/L Normal 3.3-5.1 [facility] Comment on above: Performed By: #### L 500.2500, L100.0100 #### [facility] [address] [place], [address] Sodium [Moles/Vol] 137 mmol/L Normal 133-145 [facility] Comment on above: Performed By: #### L 500.2500, L100.0100 #### [facility] [address] [place], [address] Urea nitrogen [Mass/Vol] 15 mg/dL Normal 4-19 [facility] Comment on above: Performed By: #### L 500.2500, L100.0100 #### [facility] [address] [place], [address] CBC W/Diff, Automatedon 11-0 -2024 Absolute Lymph 1.43 X10 3/uL Normal 0.83-4.51 [facility] Comment on above: Performed By: #### L 500.2500, L100.0100 #### [facility] [address] [place], [address] Absolute Neut 3.3 X10 3/uL Normal 2.0-7.7 [facility] Comment on above: Performed By: #### L 500.2500, L100.0100 #### [facility] [address] [place], [address] Basophils/100 WBC (Bld) 1.4 % High 0-1 [facility] Comment on above: Performed By: #### L 500.2500, L100.0100 #### [facility] [address] [place], [address] Eosinophils/100 WBC (Bld) 4.4 % Normal 0-5 [facility] Comment on above: Performed By: #### L 500.2500, L100.0100 #### [facility] [address] [place], [address] Erythrocyte distribution width (RBC) [Ratio] 12.1 % Normal 11.6-14.6 [facility] Comment on above: Performed By: #### L 500.2500, L100.0100 #### [facility] [address] [place], [address] Hematocrit (Bld) [Volume fraction] 39.1 % Normal 37-47 [facility] Comment on above: Performed By: #### L 500.2500, L100.0100 #### [facility] [address] [place], [address] Hemoglobin (Bld) [Mass/Vol] 13.3 g/dL Normal 12.0-15. 0 [facility] Comment on above: Performed By: #### L 500.2500, L100.0100 #### [facility] [address] [place], [address] IG% 0.200 Normal 0.0-0.9 [facility] Comment on above: Result Comment: IG% - Immature Granulocytes (promyelocytes, myelocytes and metamyelocytes) > 1% indicates that a LEFT SHIFT is Present. Performed By: #### L 500.2500, L100.0100 #### [facility] [address] [place], [address] Lymphocytes/100 WBC (Bld) 25.4 % Normal 19-41 [facility] Comment on above: Performed By: #### L 500.2500, L100.0100 #### [facility] [address] [place], [address] MCH (RBC) [Entitic mass] 32.2 pg High 27.0-32.0 [facility] Comment on above: Performed By: #### L 500.2500, L100.0100 #### [facility] [address] [place], [address] MCHC (RBC) [Mass/Vol] 34.0 g/dL Normal 32-36 [facility] Comment on above: Performed By: #### L 500.2500, L100.0100 #### [facility] [address] [place], [address] MCV (RBC) [Entitic vol] 94.7 fL Normal 81-99 [facility] Comment on above: Performed By: #### L 500.2500, L100.0100 #### [facility] [address] [place], [address] Monocytes/100 WBC (Bld) 10.7 % High 0-10 [facility] Comment on above: Performed By: #### L 500.2500, L100.0100 #### [facility] [address] [place], [address] Neutrophils/100 WBC (Bld) 57.9 % Normal 47-70 [facility] Comment on above: Performed By: #### L 500.2500, L100.0100 #### [facility] [address] [place], [address] Nucleated RBC (Bld) [#/Vol] 0 10*3/uL Normal 0-5 [facility] Comment on above: Performed By: #### L 500.2500, L100.0100 #### [facility] [address] [place], [address] Platelet mean volume (Bld) [Entitic vol] 10.4 fL Normal 6.2-12.0 [facility] Comment on above: Performed By: #### L 500.2500, L100.0100 #### [facility] [address] [place], [address] Platelets (Bld) [#/Vol] 260 10*3/uL Normal 150-450 [facility] Comment on above: Performed By: #### L 500.2500, L100.0100 #### [facility] [address] [place], [address] RBC (Bld) [#/Vol] 4.13 10*6/uL Low 4.2-5.4 [facility] Comment on above: Performed By: #### L 500.2500, L100.0100 #### [facility] [address] [place], [address] RDW SD 42.1 fl Normal 35.1-43.9 [facility] [facility] Comment on above: Performed By: #### L 500.2500, L100.0100 #### [facility] [address] [place], [address] WBC (Bld) [#/Vol] 5.6 10*3/uL Normal 4.4-11.0 [facility] Comment on above: Performed By: #### L 500.2500, L100.0100 #### [facility] [address] [place], [address] Urine Cultureon 08-13-2025 [facility] Proteus mirabilis [place] Count >100,000 Proteus mirabilis: REACTION Ampicillin Islt DAWSON <=2 Ampicillin+Sulbac Islt DAWSON <=2 S Cefepime Islt DAWSON <=0.12 S cefTRIAXone Islt DAWSON <=0.25 S Ciprofloxacin Islt DAWSON <=0.06 S Gentamicin Islt DAWSON <=1 S levoFLOXacin Islt DAWSON <=0.12 S Meropenem Islt DAWSON <=0.25 S Nitrofurantoin Islt DAWSON 128 R Pip+Tazo Islt DAWSON <=4 S TMP SMX Islt DAWSON <=20 S Normal [facility] Comment on above: Performed By: #### L 501.9520, L500.4100, L500.2500, L100.0100 #### [facility] [address] [place], [address] Urinalysis, Completeon 08-11 RBC 0-5 SEEN Normal 0-5 [facility] Comment on above: Order Comment: Comme nts: NPO at [place] prior to lipid panel Performed By: #### L 501.9520, L500.4100, L500.2500, L100.0100 #### [facility] [address] [place], [address] BACTERIA 2+ /hpf Normal None Seen [facility] Comment on above: Order Comment: Comme nts: NPO at [place] prior to lipid panel Performed By: #### L 501.9520, L500.4100, L500.2500, L100.0100 #### [facility] [address] [place], [address] WBC >100 SEEN Normal 0-5 [facility] Comment on above: Order Comment: Comme nts: NPO at [place] prior to lipid panel Performed By: #### L 501.9520, L500.4100, L500.2500, L100.0100 #### [facility] [address] [place], [address] EPI,SQUAMOUS 0 SEEN Normal 5-10 [facility] Comment on above: Order Comment: Comme nts: NPO at [place] prior to lipid panel Performed By: #### L 501.9520, L500.4100, L500.2500, L100.0100 #### [facility] [address] [place], [address] Mucus Ql (Urine sed) 0 SEEN Normal [facility] Comment on above: Order Comment: Comme nts: NPO at [place] prior to lipid panel Performed By: #### L 501.9520, L500.4100, L500.2500, L100.0100 #### [facility] [address] [place], [address] Urinalysis, Completeon 08-05 AMORPHOUS 2+ Normal [facility] Comment on above: Order Comment: APPLE TER SPECIMEN Performed By: #### L 500.2500, L100.0100 #### [facility] [address] [place], [address] RBC 0-5 SEEN Normal 0-5 [facility] Comment on above: Order Comment: APPLE TER SPECIMEN Performed By: #### L 500.2500, L100.0100 #### [facility] [address] [place], [address] WBC 0-5 SEEN Normal 0-5 [facility] Comment on above: Order Comment: APPLE TER SPECIMEN Performed By: #### L 500.2500, L100.0100 #### [facility] [address] [place], [address] EPI,SQUAMOUS 5-10 SEEN Normal 5-10 [facility] Comment on above: Order Comment: APPLE TER SPECIMEN Performed By: #### L 500.2500, L100.0100 #### [facility] [address] [place], [address] BACTERIA 0 SEEN Normal None Seen [facility] Comment on above: Order Comment: APPLE TER SPECIMEN Performed By: #### L 500.2500, L100.0100 #### [facility] [address] [place], [address] Mucus Ql (Urine sed) 0 SEEN Normal [facility] Comment on above: Order Comment: APPLE TER SPECIMEN Performed By: #### L 500.2500, L100.0100 #### [facility] [address] [place], [address] Bedside Glucoseon 08-03-2025 FINGERSTICK GLU 130 mg/dL High 74-106 [facility] Comment on above: Result Comment: ISAAC BARRERA OF PATIENT CARE PER NURSING PROTOCOL Performed By: #### L 501.080 #### [facility] [address] [place], [address] CBC W/Diff, Automatedon 07-09 Absolute Lymph 1.59 X10 3/uL Normal 0.83-4.51 [facility] Comment on above: Performed By: #### L 100.0100, L500.4050, L501.2300, L501.5200 #### [facility] [address] [place], [address] Absolute Neut 4.4 X10 3/uL Normal 2.0-7.7 [facility] Comment on above: Performed By: #### L 100.0100, L500.4050, L501.2300, L501.5200 #### [facility] [address] [place], [address] Basophils/100 WBC (Bld) 1.2 % High 0-1 [facility] Comment on above: Performed By: #### L 100.0100, L500.4050, L501.2300, L501.5200 #### [facility] [address] [place], [address] Eosinophils/100 WBC (Bld) 5.0 % Normal 0-5 [facility] Comment on above: Performed By: #### L 100.0100, L500.4050, L501.2300, L501.5200 #### [facility] [address] [place], [address] Erythrocyte distribution width (RBC) [Ratio] 12.3 % Normal 11.6-14.6 [facility] Comment on above: Performed By: #### L 100.0100, L500.4050, L501.2300, L501.5200 #### [facility] [address] [place], [address] Hematocrit (Bld) [Volume fraction] 45.1 % Normal 37-47 [facility] Comment on above: Performed By: #### L 100.0100, L500.4050, L501.2300, L501.5200 #### [facility] [address] [place], [address] Hemoglobin (Bld) [Mass/Vol] 14.5 g/dL Normal 12.0-15. 0 [facility] Comment on above: Performed By: #### L 100.0100, L500.4050, L501.2300, L501.5200 #### [facility] [address] [place], [address] IG% 0.100 Normal 0.0-0.9 [facility] Comment on above: Result Comment: IG% - Immature Granulocytes (promyelocytes, myelocytes and metamyelocytes) > 1% indicates that a LEFT SHIFT is Present. Performed By: #### L 100.0100, L500.4050, L501.2300, L501.5200 #### [facility] [address] [place], [address] Lymphocytes/100 WBC (Bld) 23.5 % Normal 19-41 [facility] Comment on above: Performed By: #### L 100.0100, L500.4050, L501.2300, L501.5200 #### [facility] [address] [place], [address] MCH (RBC) [Entitic mass] 31.1 pg Normal 27.0-32.0 [facility] Comment on above: Performed By: #### L 100.0100, L500.4050, L501.2300, L501.5200 #### [facility] [address] [place], [address] MCHC (RBC) [Mass/Vol] 32.2 g/dL Normal 32-36 [facility] Comment on above: Performed By: #### L 100.0100, L500.4050, L501.2300, L501.5200 #### [facility] [address] [place], [address] MCV (RBC) [Entitic vol] 96.8 fL Normal 81-99 [facility] Comment on above: Performed By: #### L 100.0100, L500.4050, L501.2300, L501.5200 #### [facility] [address] [place], [address] Monocytes/100 WBC (Bld) 5.2 % Normal 0-10 [facility] Comment on above: Performed By: #### L 100.0100, L500.4050, L501.2300, L501.5200 #### [facility] [address] [place], [address] Neutrophils/100 WBC (Bld) 65.0 % Normal 47-70 [facility] Comment on above: Performed By: #### L 100.0100, L500.4050, L501.2300, L501.5200 #### [facility] [address] [place], [address] Nucleated RBC (Bld) [#/Vol] 0 10*3/uL Normal 0-5 [facility] Comment on above: Performed By: #### L 100.0100, L500.4050, L501.2300, L501.5200 #### [facility] [address] [place], [address] Platelet mean volume (Bld) [Entitic vol] 10.8 fL Normal 6.2-12.0 [facility] Comment on above: Performed By: #### L 100.0100, L500.4050, L501.2300, L501.5200 #### [facility] [address] [place], [address] Platelets (Bld) [#/Vol] 266 10*3/uL Normal 150-450 [facility] Comment on above: Performed By: #### L 100.0100, L500.4050, L501.2300, L501.5200 #### [facility] [address] [place], [address] RBC (Bld) [#/Vol] 4.66 10*6/uL Normal 4.2-5.4 [facility] Comment on above: Performed By: #### L 100.0100, L500.4050, L501.2300, L501.5200 #### [facility] [address] [place], [address] RDW SD 43.7 fl Normal 35.1-43.9 [facility] Comment on above: Performed By: #### L 100.0100, L500.4050, L501.2300, L501.5200 #### [facility] [address] [place], [address] WBC (Bld) [#/Vol] 6.8 10*3/uL Normal 4.4-11.0 [facility] Comment on above: Performed By: #### L 100.0100, L500.4050, L501.2300, L501.5200 #### [facility] [address] [place], [address] Comprehensive Metabolic Prof ilon 08-03-2025 Albumin [Mass/Vol] 4.0 g/dL Normal 3.4-4.8 [facility] Comment on above: Performed By: #### L 100.0100, L500.4050, L501.2300, L501.5200 #### [facility] [address] [place], [address] Albumin/Globulin [Mass ratio] 1.4 {ratio} Normal 0.9-2.4 [facility] Comment on above: Performed By: #### L 100.0100, L500.4050, L501.2300, L501.5200 #### [facility] [address] [place], [address] ALK PHOS 76 U/L Normal 35-104 [facility] Comment on above: Performed By: #### L 100.0100, L500.4050, L501.2300, L501.5200 #### [facility] [address] [place], [address] ALT [Catalytic activity/Vol] 14 U/L Normal <=34 [facility] Comment on above: Performed By: #### L 100.0100, L500.4050, L501.2300, L501.5200 #### [facility] [address] [place], [address] AST [Catalytic activity/Vol] 22 U/L Normal <=31 [facility] Comment on above: Performed By: #### L 100.0100, L500.4050, L501.2300, L501.5200 #### [facility] [address] [place], [address] Bilirubin [Mass/Vol] 0.40 mg/dL Normal 0.00-1.30 [facility] Comment on above: Performed By: #### L 100.0100, L500.4050, L501.2300, L501.5200 #### [facility] [address] [place], [address] BUN/CRE 29.3 RATIO High 10-20 [facility] Comment on above: Performed By: #### L 100.0100, L500.4050, L501.2300, L501.5200 #### [facility] [address] [place], [address] Calcium [Mass/Vol] 9.1 mg/dL Normal 7.6-11.0 [facility] Comment on above: Performed By: #### L 100.0100, L500.4050, L501.2300, L501.5200 #### [facility] [address] [place], [address] Chloride [Moles/Vol] 105 mmol/L Normal 98-108 [facility] Comment on above: Performed By: #### L 100.0100, L500.4050, L501.2300, L501.5200 #### [facility] [address] [place], [address] CO2 [Moles/Vol] 23.7 mmol/L Normal 21.0-32.0 [facility] Comment on above: Performed By: #### L 100.0100, L500.4050, L501.2300, L501.5200 #### [facility] [address] [place], [address] Creatinine [Mass/Vol] 0.59 mg/dL Low 0.70-1.20 [facility] Comment on above: Performed By: #### L 100.0100, L500.4050, L501.2300, L501.5200 #### [facility] [address] [place], [address] ECRCL 37.07 ml/min Low 50-250 [facility] Comment on above: Performed By: #### L 100.0100, L500.4050, L501.2300, L501.5200 #### [facility] [address] [place], [address] GAP 11 Normal 5-15 [facility] Comment on above: Performed By: #### L 100.0100, L500.4050, L501.2300, L501.5200 #### [facility] [address] [place], [address] GFR/1.73 sq M.predicted among non-blacks MDRD (S/P/Bld) [Vol rate/Area] 87 mL/min/{1.73_m2} Normal >60 [facility] Comment on above: Result Comment: mL/m in/1.73m2 CKD-EPI Creatinine Equation (2020) Performed By: #### L 100.0100, L500.4050, L501.2300, L501.5200 #### [facility] [address] [place], [address] Globulin (S) [Mass/Vol] 2.9 g/dL Normal 2.2-4.2 [facility] Comment on above: Performed By: #### L 100.0100, L500.4050, L501.2300, L501.5200 #### [facility] [address] [place], [address] Glucose [Mass/Vol] 141 mg/dL High 70-99 [facility] Comment on above: Performed By: #### L 100.0100, L500.4050, L501.2300, L501.5200 #### [facility] [address] [place], [address] Potassium [Moles/Vol] 3.8 mmol/L Normal 3.3-5.1 [facility] Comment on above: Performed By: #### L 100.0100, L500.4050, L501.2300, L501.5200 #### [facility] [address] [place], [address] Sodium [Moles/Vol] 140 mmol/L Normal 133-145 [facility] Comment on above: Performed By: #### L 100.0100, L500.4050, L501.2300, L501.5200 #### [facility] [address] [place], [address] T PROT 6.9 g/dL Normal 5.9-8.4 [facility] Comment on above: Performed By: #### L 100.0100, L500.4050, L501.2300, L501.5200 #### [facility] [address] [place], [address] Urea nitrogen [Mass/Vol] 17 mg/dL Normal 4-19 [facility] Comment on above: Performed By: #### L 100.0100, L500.4050, L501.2300, L501.5200 #### [facility] [address] [place], [address] Hemoglobin A1con 08-03-2025 HbA1c (Bld) [Mass fraction] 5.7 % Normal <=5.6 [facility] Comment on above: Result Comment: Norm al < 5.7 % Prediabetic 5.7 - 6.4 % Diabetic >or= 6.5 % Please note range changes. Performed By: #### L 501.9985 #### [facility] [address] [place], [address] Magnesiumon 08-03-2025 Magnesium [Mass/Vol] 2.0 mg/dL Normal 1.5-2.2 [facility] Comment on above: Performed By: #### L 501.9520, L500.4100, L500.2500, L100.0100 #### [facility] [address] [place], [address] Phosphoruson 08-03-2025 Phosphate [Mass/Vol] 3.7 mg/dL Normal 2.7-4.5 [facility] Comment on above: Performed By: #### L 501.9520, L500.4100, L500.2500, L100.0100 #### [facility] [address] [place], [address] Urine Cultureon 08-01-2025 [facility] Escherichia coli [place] Count 11,000-25,000 Escherichia coli: REACTION Ampicillin Islt DAWSON <=2 Ampicillin+Sulbac Islt DAWSON <=2 S Cefepime Islt DAWSON <=0.12 S cefTRIAXone Islt DAWSON <=0.25 S Ciprofloxacin Islt DAWSON <=0.06 S B-Lactamase Extended Susc Islt NEG Gentamicin Islt DAWSON <=1 S levoFLOXacin Islt DAWSON <=0.12 S Meropenem Islt DAWSON <=0.25 S Nitrofurantoin Islt DAWSON <=16 S Pip+Tazo Islt DAWSON <=4 S TMP SMX Islt DAWSON <=20 S Normal [facility] Comment on above: Performed By: #### L 501.9520, L500.4100, L500.2500, L100.0100 #### [facility] [address] [place], [address] Basic Metabolic Profile (BMP )on 07-31-2025 BUN/CRE 25.7 RATIO High 07-27 [facility] Comment on above: Order Comment: Comme nts: NPO at [place] prior to lipid panel Performed By: #### L 501.9520, L500.4100, L500.2500, L100.0100 #### [facility] [address] [place], [address] Calcium [Mass/Vol] 8.7 mg/dL Normal 7.6-11.0 [facility] Comment on above: Order Comment: Comme nts: NPO at [place] prior to lipid panel Performed By: #### L 501.9520, L500.4100, L500.2500, L100.0100 #### [facility] [address] [place], [address] Chloride [Moles/Vol] 108 mmol/L Normal 98-108 [facility] Comment on above: Order Comment: Comme nts: NPO at [place] prior to lipid panel Performed By: #### L 501.9520, L500.4100, L500.2500, L100.0100 #### [facility] [address] [place], [address] CO2 [Moles/Vol] 22.9 mmol/L Normal 21.0-32.0 [facility] Comment on above: Order Comment: Comme nts: NPO at [place] prior to lipid panel Performed By: #### L 501.9520, L500.4100, L500.2500, L100.0100 #### [facility] [address] [place], [address] Creatinine [Mass/Vol] 0.64 mg/dL Low 0.70-1.20 [facility] Comment on above: Order Comment: Comme nts: NPO at [place] prior to lipid panel Performed By: #### L 501.9520, L500.4100, L500.2500, L100.0100 #### [facility] [address] [place], [address] ECRCL 35.59 ml/min Low 50-250 [facility] Comment on above: Order Comment: Comme nts: NPO at [place] prior to lipid panel Performed By: #### L 501.9520, L500.4100, L500.2500, L100.0100 #### [facility] [address] [place], [address] GAP 12 Normal 5-15 [facility] Comment on above: Order Comment: Comme nts: NPO at [place] prior to lipid panel Performed By: #### L 501.9520, L500.4100, L500.2500, L100.0100 #### [facility] [address] [place], [address] GFR/1.73 sq M.predicted among non-blacks MDRD (S/P/Bld) [Vol rate/Area] 85 mL/min/{1.73_m2} Normal >60 [facility] Comment on above: Order Comment: Comme nts: NPO at [place] prior to lipid panel Result Comment: mL/m in/1.73m2 CKD-EPI Creatinine Equation (2020) Performed By: #### L 501.9520, L500.4100, L500.2500, L100.0100 #### [facility] [address] [place], [address] Glucose [Mass/Vol] 97 mg/dL Normal 70-99 [facility] Comment on above: Order Comment: Comme nts: NPO at [place] prior to lipid panel Performed By: #### L 501.9520, L500.4100, L500.2500, L100.0100 #### [facility] [address] [place], [address] Potassium [Moles/Vol] 3.6 mmol/L Normal 3.3-5.1 [facility] Comment on above: Order Comment: Comme nts: NPO at [place] prior to lipid panel Performed By: #### L 501.9520, L500.4100, L500.2500, L100.0100 #### [facility] [address] [place], [address] Sodium [Moles/Vol] 143 mmol/L Normal 133-145 [facility] Comment on above: Order Comment: Comme nts: NPO at [place] prior to lipid panel Performed By: #### L 501.9520, L500.4100, L500.2500, L100.0100 #### [facility] [address] [place], [address] Urea nitrogen [Mass/Vol] 17 mg/dL Normal 4-19 [facility] Comment on above: Order Comment: Comme nts: NPO at [place] prior to lipid panel Performed By: #### L 501.9520, L500.4100, L500.2500, L100.0100 #### [facility] [address] [place], [address] Brain without Contraston Brain without Contrast [facility] Imaging Services [address] [place] [address] Brain without Contrast MR#: [id number] Acct: [id number] Name: DEA MERRITT Rep #: [id number] : [id number] F [id number] From: Lisbeth Romo MD PCP: Dr. Deepika Fabian MD Status: ADM EDILBERTO Study: Brain without Contrast Date of Exam: 07/31/25 Exam# [id number] Ordering Dr: Jody Moffett MD PROCEDURE: BRAIN WITHOUT CONTRAST 07/31/2025 REASON FOR EXAM: CONCERN FOR CVA TECHNIQUE: Procedure Code: MRIBR Modality: MR Procedure: BRAIN WITHOUT CONTRAST Multiplanar and multisequence images were obtained. COMPARISON: None. FINDINGS: Brain: Foci of restricted diffusion in the left external capsule and coronal radiata consistent with acute infarction. No hemorrhage. No mass-effect or midline shift. Foci of hyperintense signal on T2 and FLAIR which are nonspecific but most likely due to chronic small vessel ischemia. Parenchymal volume loss consistent with brain atrophy. The craniocervical junction is unremarkable. Ventricles: No ventriculomegaly. Major Intracranial Vessels: Patent. Sinuses: Clear. Mastoids: Clear. MRI/Brain without Contrast IMPRESSION: Foci of restricted diffusion in the left external capsule and coronal radiata consistent with acute infarction. Reading Location: [facility] CC: Dr. Deepika Fabian MD; Dr. Jody Moffett MD Fpga Engineer: Signed Normal [facility] CBC W/Diff, Automatedon 10-2 Absolute Lymph 1.47 X10 3/uL Normal 0.83-4.51 [facility] Comment on above: Performed By: #### L 501.9520, L500.4100, L500.2500, L100.0100 #### [facility] [address] [place], [address] Absolute Neut 4.5 X10 3/uL Normal 2.0-7.7 [facility] Comment on above: Performed By: #### L 501.9520, L500.4100, L500.2500, L100.0100 #### [facility] [address] [place], [address] Basophils/100 WBC (Bld) 1.3 % High 0-1 [facility] Comment on above: Performed By: #### L 501.9520, L500.4100, L500.2500, L100.0100 #### [facility] [address] [place], [address] Eosinophils/100 WBC (Bld) 6.0 % High 0-5 [facility] Comment on above: Performed By: #### L 501.9520, L500.4100, L500.2500, L100.0100 #### [facility] [address] [place], [address] Erythrocyte distribution width (RBC) [Ratio] 12.2 % Normal 11.6-14.6 [facility] Comment on above: Performed By: #### L 501.9520, L500.4100, L500.2500, L100.0100 #### [facility] [address] [place], [address] Hematocrit (Bld) [Volume fraction] 40.1 % Normal 37-47 [facility] Comment on above: Performed By: #### L 501.9520, L500.4100, L500.2500, L100.0100 #### [facility] [address] [place], [address] Hemoglobin (Bld) [Mass/Vol] 13.3 g/dL Normal 12.0-15. 0 [facility] Comment on above: Performed By: #### L 501.9520, L500.4100, L500.2500, L100.0100 #### [facility] [address] [place], [place], [address] IG% 0.300 Normal 0.0-0.9 [facility] Comment on above: Result Comment: IG% - Immature Granulocytes (promyelocytes, myelocytes and metamyelocytes) > 1% indicates that a LEFT SHIFT is Present. Performed By: #### L 501.9520, L500.4100, L500.2500, L100.0100 #### [facility] [address] [place], [address] Lymphocytes/100 WBC (Bld) 20.6 % Normal 19-41 [facility] Comment on above: Performed By: #### L 501.9520, L500.4100, L500.2500, L100.0100 #### [facility] [address] [place], [address] MCH (RBC) [Entitic mass] 31.7 pg Normal 27.0-32.0 [facility] Comment on above: Performed By: #### L 501.9520, L500.4100, L500.2500, L100.0100 #### [facility] [address] [place], [address] MCHC (RBC) [Mass/Vol] 33.2 g/dL Normal 32-36 [facility] Comment on above: Performed By: #### L 501.9520, L500.4100, L500.2500, L100.0100 #### [facility] [address] [place], [address] MCV (RBC) [Entitic vol] 95.5 fL Normal 81-99 [facility] Comment on above: Performed By: #### L 501.9520, L500.4100, L500.2500, L100.0100 #### [facility] [address] [place], [address] Monocytes/100 WBC (Bld) 9.0 % Normal 0-10 [facility] Comment on above: Performed By: #### L 501.9520, L500.4100, L500.2500, L100.0100 #### [facility] [address] [place], [address] Neutrophils/100 WBC (Bld) 62.8 % Normal 47-70 [facility] Comment on above: Performed By: #### L 501.9520, L500.4100, L500.2500, L100.0100 #### [facility] [address] [place], [address] Nucleated RBC (Bld) [#/Vol] 0 10*3/uL Normal 0-5 [facility] Comment on above: Performed By: #### L 501.9520, L500.4100, L500.2500, L100.0100 #### [facility] [address] [place], [address] Platelet mean volume (Bld) [Entitic vol] 11.0 fL Normal 6.2-12.0 [facility] Comment on above: Performed By: #### L 501.9520, L500.4100, L500.2500, L100.0100 #### [facility] [address] [place], [address] Platelets (Bld) [#/Vol] 217 10*3/uL Normal 150-450 [facility] Comment on above: Performed By: #### L 501.9520, L500.4100, L500.2500, L100.0100 #### [facility] [address] [place], [address] RBC (Bld) [#/Vol] 4.20 10*6/uL Normal 4.2-5.4 [facility] Comment on above: Performed By: #### L 501.9520, L500.4100, L500.2500, L100.0100 #### [facility] [address] [place], [address] RDW SD 42.6 fl Normal 35.1-43.9 [facility] Comment on above: Performed By: #### L 501.9520, L500.4100, L500.2500, L100.0100 #### [facility] [address] [place], [address] WBC (Bld) [#/Vol] 7.2 10*3/uL Normal 4.4-11.0 [facility] Comment on above: Performed By: #### L 501.9520, L500.4100, L500.2500, L100.0100 #### [facility] [address] [place], [address] Lipid Profileon 07-31-2025 CHOL:HDL 4.20 Normal [facility] Comment on above: Order Comment: Comme nts: NPO at [place] prior to lipid panel Performed By: #### L 501.9520, L500.4100, L500.2500, L100.0100 #### [facility] [address] [place], [address] Cholesterol [Mass/Vol] 258 mg/dL High <=200 [facility] Comment on above: Order Comment: Comme nts: NPO at [place] prior to lipid panel Result Comment: Chol esterol level, Desirable <200 mg/dL Borderline high cholesterol 200-239 mg/dL High cholesterol >=240 mg/dL Recommendations of the NCEP Adult Treatment Panel for the following risk-cutoff thresholds for the [place] population. Performed By: #### L 501.9520, L500.4100, L500.2500, L100.0100 #### [facility] [address] [place], [address] Cholesterol in HDL [Mass/Vol] 61 mg/dL Normal [facility] Comment on above: Order Comment: Comme nts: NPO at [place] prior to lipid panel Result Comment: Mikala onal Cholesterol Education Program (NCEP) guidelines: <40 mg/dL: Low HDL-cholesterol (major risk factor for CHD) >= 60 mg/dL: High HDL-cholesterol (negative risk factor for CHD) HDL-cholesterol is affected by a number of factors, e.g. smoking, exercise, hormones, sex and age. Performed By: #### L 501.9520, L500.4100, L500.2500, L100.0100 #### [facility] [address] [place], [address] Cholesterol in LDL [Mass/Vol] 177 mg/dL Normal [facility] Comment on above: Order Comment: Comme nts: NPO at [place] prior to lipid panel Result Comment: Bord khxpty=094-020 mg/dL Higher Yunn=729 mg/dL or greater Coleman Equation 2020 for LDL-C Performed By: #### L 501.9520, L500.4100, L500.2500, L100.0100 #### [facility] [address] [place], [address] Cholesterol in VLDL [Mass/Vol] 22 mg/dL Normal 5-40 [facility] Comment on above: Order Comment: Comme nts: NPO at [place] prior to lipid panel Performed By: #### L 501.9520, L500.4100, L500.2500, L100.0100 #### [facility] [address] [place], [address] Triglyceride [Mass/Vol] 111 mg/dL Normal [facility] Comment on above: Order Comment: Comme nts: NPO at [place] prior to lipid panel Result Comment: The drugs N-Acetylcysteine and Metamizole may falsely depress this assay. Normal range: <150 mg/dL Borderline High: 150-199 mg/dL High: 200-499 mg/dL Very High: >500 mg/dL Performed By: #### L 501.9520, L500.4100, L500.2500, L100.0100 #### [facility] [address] [place], [address] MR/CON.PCM.NEon 07-31-2025 MR/CON.PCM.NE [facility] Medical Records Department [address] [place] [address] Consultation - Neurology 07/31/25 1320 MR#: [id number] Acct: [id number] Name: DEA MERRITT Rep #: [id number] : 1935 89 From: Natali Thompson MD PCP: Dr. Deepika Fabian MD Status:ADM EDILBERTO Location: [place] [address] Assessment and Plan: Stroke Assessment/Plan DEA MERRITT is a 89 F with a history of afib who presents for evaluation of L [place] radiata stroke, likely small vessel in etiology vs cardioembolic ??? The following tests for stroke work-up have been/should be obtained:? Neuroimaging: MRI Brain with L [place] radiata stroke ??? Vascular imaging: no significant athero ??? Cardiac testing: not needed ??? Cardiac monitoring: telemetry while in the hospital ??? Labs: HgbA1c pending, LDL 177 ???Permissive hypertension to goal SBP < 160/80 mm Hg for next week ???Anti-platelet medication: cont home xeralto ???Statin therapy: unable to take statins as causes transaminitis, rec to start Zetia 10mg ???Occupational/Physic al therapy consults ???NPO until swallow evaluation.??? IVF until able to take po ???DVT prophylaxis with SCDs and heparin SQ. ???Vascular risk factor modification.??? 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 BP management should aim to achieve technician terminal and repeater control in a reasonable amount of time, taking into consideration the individual patient's requirements and characteristics. Weight Management: Goal for BMI is 18.5-24.9 kg/m2. Alcohol: No more than 2 drinks/day for men or 1 drink/day for non- women. Promote lifestyle modification: weight control, physical activity, moderation of alcohol intake, moderate sodium intake. I personally attended this patient and spent a total time of 45min evaluating this patient including clinical assessment, review of chart, medical history, and imaging, and determining appropriate treatment and workup. HPI Consult Data Date of Consult: 07/31/25 HPI Narrative HPI Narrative: DEA MERRITT, is a 89-year-old female history of CVA and right MCA distribution, A-fib on Xarelto, hypertension who presented [facility] ED 07/30/2025 due to slurred speech and difficulty walking. Patient was a stroke alert. On arrival temp 97.2, heart rate 84 with a blood pressure 159/58, respiratory rate 19 and pulse ox 99% on room air. CBC largely unremarkable, BMP with BUN of 16 creatinine 0.85 and a glucose of 108, troponin 19. CT brain and CTA head and neck no acute process. Teleneurology did not think she was a lytic candidate due to the recent use of Xarelto and recommended MRI brain/CVA workup. Patient evaluated with daughter at bedside, patient somewhat poor historian but between daughter and patient it seems that she went to the store earlier and was doing fine but when she got back around 345 she felt like her legs were heavy and it was difficult to walk, she meant intermittently was having some difficulty with her speech and reported posterior headache and felt a little bit dizzy and weak. Due to her previous history of stroke they brought her to the ED. Daughter reports speech is still intermittently off, patient feels like both of her legs are still heavy but denies any paresthesias, no upper extremity symptoms, no new facial symptoms, apparently has some residual facial droop from previous stroke. No current headache, no changes in vision. Denies any changes in urination, has had some constipation, eats well and eats balanced, no fevers, abdominal pain, nausea vomiting. Daughter did know earlier today she helped her to the bathroom and she had a couple drops of blood in the toilet they suspect are from hemorrhoids, no heavy bleeding or other bleeding noted in hemoglobin to ED stable Neurologic History Pt was dizzy and had pressure in back of head and both legs were weak - this all hit around 3:30 after walking around. Had stroke 3 yrs ago, February 2022. Affected the R side and had some mental difficulty after. Her voice is back to normal Was slurred yesterday. No missed doses of the xeralto, takes every evening. Exam: -? General: Laying comfortably in bed; in no acute distress. -? HENT: Normal oropharynx and mucosa. Normal external appearance of ears and nose. Exophthalmos. -? Neck: Supple, no pain or tenderness -? CV:??? No peripheral edema. -? Pulmonary:??? Normal respiratory effort. -? Ext: No cyanosis, edema, or deformity -? Skin: No rash. Normal palpation of skin.??? -? Musculoskeletal: full range of motion; no joint tenderne (more content not included)... Normal [facility] Thyroid Stim Hormone (TSH)on 07-31-2025 TSH 1.450 uIU/mL Normal 0.300-4.20 0 [facility] Comment on above: Order Comment: Comme nts: NPO at [place] prior to lipid panel Performed By: #### L 501.9520, L500.4100, L500.2500, L100.0100 #### [facility] [address] [place], [place], [address] 12 Lead EKGon 07-30-2025 12 Lead EKG [facility] Cardiovascular Services [address] [place] [address] 12 Lead EKG 07/30/25 1830 MR#: [id number] Acct: [id number] Name: DEA MERRITT Rep #: [id number] : 1935 89 From: Ronald Brizuela MD Attending Dr: Dr. Irwin Emmanuel DO Status: D IS IN Ordering Dr: Micah Magana MD Date: 07/30/25 Location: [facility] Sex: F C Admitted: 07/31/25 Test Reason : DYSRHYTHMIA Blood Pressure : */* mmHG Vent. Rate : 82 BPM Atrial Rate : * BPM P-R Int : * ms QRS Dur : 114 ms QT Int : 420 ms P-R-T Axes : * -36 86 degrees QTcB Int : 490 ms Atrial fibrillation Left axis deviation Minimal voltage criteria for LVH, may be normal variant ( Nic product ) Septal infarct , age undetermined Inferior infarct , age undetermined QTcB >= 480 msec Abnormal ECG Confirmed by RONALD BRIZUELA ([id number]), commissioning editor AZIZA BALL ([id number]) on 08/03/2025 6:33:21 AM Referred By: Confirmed By: RONALD BRIZUELA 08/03/25 0633 Date Ronald Brizuela MD CC: Dr. Deepika Fabian MD; Dr. Irwin Emmanuel DO; Dr. Micah Magana MD Signed Normal [facility] Basic Metabolic Profile (BMP )on 07-30-2025 BUN/CRE 18.3 RATIO Normal 07-27 [facility] Comment on above: Performed By: #### L 501.9520, L500.4100, L500.2500, L100.0100 #### [facility] [address] [place], [address] Calcium [Mass/Vol] 9.1 mg/dL Normal 7.6-11.0 [facility] Comment on above: Performed By: #### L 501.9520, L500.4100, L500.2500, L100.0100 #### [facility] [address] [place], [address] Chloride [Moles/Vol] 106 mmol/L Normal 98-108 [facility] Comment on above: Performed By: #### L 501.9520, L500.4100, L500.2500, L100.0100 #### [facility] [address] [place], [address] CO2 [Moles/Vol] 26.5 mmol/L Normal 21.0-32.0 [facility] Comment on above: Performed By: #### L 501.9520, L500.4100, L500.2500, L100.0100 #### [facility] [address] [place], [address] Creatinine [Mass/Vol] 0.85 mg/dL Normal 0.70-1.20 [facility] Comment on above: Performed By: #### L 501.9520, L500.4100, L500.2500, L100.0100 #### [facility] [address] [place], [address] ECRCL 33.49 ml/min Low 50-250 [facility] Comment on above: Performed By: #### L 501.9520, L500.4100, L500.2500, L100.0100 #### [facility] [address] [place], [address] GAP 10 Normal 5-15 [facility] Comment on above: Performed By: #### L 501.9520, L500.4100, L500.2500, L100.0100 #### [facility] [address] [place], [address] GFR/1.73 sq M.predicted among non-blacks MDRD (S/P/Bld) [Vol rate/Area] 67 mL/min/{1.73_m2} Normal >60 [facility] Comment on above: Result Comment: mL/m in/1.73m2 CKD-EPI Creatinine Equation (2020) Performed By: #### L 501.9520, L500.4100, L500.2500, L100.0100 #### [facility] [address] [place], [address] Glucose [Mass/Vol] 108 mg/dL High 70-99 [facility] Comment on above: Performed By: #### L 501.9520, L500.4100, L500.2500, L100.0100 #### [facility] [address] [place], [address] Potassium [Moles/Vol] 3.8 mmol/L Normal 3.3-5.1 [facility] Comment on above: Performed By: #### L 501.9520, L500.4100, L500.2500, L100.0100 #### [facility] [address] [place], [address] Sodium [Moles/Vol] 143 mmol/L Normal 133-145 [facility] Comment on above: Performed By: #### L 501.9520, L500.4100, L500.2500, L100.0100 #### [facility] [address] [place], [address] Urea nitrogen [Mass/Vol] 16 mg/dL Normal 4-19 [facility] Comment on above: Performed By: #### L 501.9520, L500.4100, L500.2500, L100.0100 #### [facility] [address] [place], [address] CBC W/Diff, Automatedon 10-2 Absolute Lymph 1.95 X10 3/uL Normal 0.83-4.51 [facility] Comment on above: Performed By: #### L 501.9520, L500.4100, L500.2500, L100.0100 #### [facility] [address] [place], [address] Absolute Neut 4.5 X10 3/uL Normal 2.0-7.7 [facility] Comment on above: Performed By: #### L 501.9520, L500.4100, L500.2500, L100.0100 #### [facility] [address] [place], [address] Basophils/100 WBC (Bld) 1.2 % High 0-1 [facility] Comment on above: Performed By: #### L 501.9520, L500.4100, L500.2500, L100.0100 #### [facility] [address] [place], [address] Eosinophils/100 WBC (Bld) 4.5 % Normal 0-5 [facility] Comment on above: Performed By: #### L 501.9520, L500.4100, L500.2500, L100.0100 #### [facility] [address] [place], [address] Erythrocyte distribution width (RBC) [Ratio] 12.2 % Normal 11.6-14.6 [facility] Comment on above: Performed By: #### L 501.9520, L500.4100, L500.2500, L100.0100 #### [facility] [address] [place], [address] Hematocrit (Bld) [Volume fraction] 42.5 % Normal 37-47 [facility] Comment on above: Performed By: #### L 501.9520, L500.4100, L500.2500, L100.0100 #### [facility] [address] [place], [address] Hemoglobin (Bld) [Mass/Vol] 14.1 g/dL Normal 12.0-15. 0 [facility] Comment on above: Performed By: #### L 501.9520, L500.4100, L500.2500, L100.0100 #### [facility] [address] [place], [address] IG% 0.100 Normal 0.0-0.9 [facility] Comment on above: Result Comment: IG% - Immature Granulocytes (promyelocytes, myelocytes and metamyelocytes) > 1% indicates that a LEFT SHIFT is Present. Performed By: #### L 501.9520, L500.4100, L500.2500, L100.0100 #### [facility] [address] [place], [address] Lymphocytes/100 WBC (Bld) 25.8 % Normal 19-41 [facility] Comment on above: Performed By: #### L 501.9520, L500.4100, L500.2500, L100.0100 #### [facility] [address] [place], [address] MCH (RBC) [Entitic mass] 31.8 pg Normal 27.0-32.0 [facility] Comment on above: Performed By: #### L 501.9520, L500.4100, L500.2500, L100.0100 #### [facility] [address] [place], [address] MCHC (RBC) [Mass/Vol] 33.2 g/dL Normal 32-36 [facility] Comment on above: Performed By: #### L 501.9520, L500.4100, L500.2500, L100.0100 #### [facility] [address] [place], [address] MCV (RBC) [Entitic vol] 95.7 fL Normal 81-99 [facility] Comment on above: Performed By: #### L 501.9520, L500.4100, L500.2500, L100.0100 #### [facility] [address] [place], [address] Monocytes/100 WBC (Bld) 9.3 % Normal 0-10 [facility] Comment on above: Performed By: #### L 501.9520, L500.4100, L500.2500, L100.0100 #### [facility] [address] [place], [address] Neutrophils/100 WBC (Bld) 59.1 % Normal 47-70 [facility] Comment on above: Performed By: #### L 501.9520, L500.4100, L500.2500, L100.0100 #### [facility] [address] [place], [address] Nucleated RBC (Bld) [#/Vol] 0 10*3/uL Normal 0-5 [facility] Comment on above: Performed By: #### L 501.9520, L500.4100, L500.2500, L100.0100 #### [facility] [address] [place], [address] Platelet mean volume (Bld) [Entitic vol] 10.7 fL Normal 6.2-12.0 [facility] Comment on above: Performed By: #### L 501.9520, L500.4100, L500.2500, L100.0100 #### [facility] [address] [place], [address] Platelets (Bld) [#/Vol] 263 10*3/uL Normal 150-450 [facility] Comment on above: Performed By: #### L 501.9520, L500.4100, L500.2500, L100.0100 #### [facility] [address] [place], [address] RBC (Bld) [#/Vol] 4.44 10*6/uL Normal 4.2-5.4 [facility] Comment on above: Performed By: #### L 501.9520, L500.4100, L500.2500, L100.0100 #### [facility] [address] [place], [address] RDW SD 42.9 fl Normal 35.1-43.9 [facility] Comment on above: Performed By: #### L 501.9520, L500.4100, L500.2500, L100.0100 #### [facility] [address] [place], [address] WBC (Bld) [#/Vol] 7.6 10*3/uL Normal 4.4-11.0 [facility] Comment on above: Performed By: #### L 501.9520, L500.4100, L500.2500, L100.0100 #### [facility] [address] [place], [address] Echo Completeon 07-30-[address] [facility] Cardiovascular Services [address] [place] [address] Echo Complete 07/31/25 0908 MR#: [id number] Acct: [id number] Name: DEA MERRITT Rep #: [id number] : 1935 89 From: Ronald Brizuela MD Attending Dr: Dr. Irwin Emmanuel, DO Status: A DM IN Ordering Dr: Jody Moffett MD Date: 07/30/25 Location: U Sex: F C Admitted: 07/31/25 Reason For Study Reason For Study: TIA/CVA Procedure This was a 2D Doppler, Color Flow transthoracic echocardiogram. Exam performed portable in patient room. Left Ventricle Normal LV size. Mild concentric left ventricular hypertrophy. Sigmoid septum. The left ventricular ejection fraction is 60 %. Unable to assess diastolic dysfunction due to arrhythmia. Right Ventricle Normal RV size. Normal systolic function. Atria The left atrium is severely enlarged. The right atrium is moderately enlarged. No doppler evidence for ASD. Mitral Valve Moderate mitral annular calcification. Mild-Moderate (1-2+) mitral valve insufficiency. Tricuspid Valve Normal tricuspid valve. Moderate (2+) tricuspid valve insufficiency. Pulmonary artery systolic pressure is 39 mmHg. Aortic Valve Trisinus/trileaflet aortic valve. Moderate focal aortic valve calcification. Aortic sclerosis, no stenosis. Mild (1+) aortic valve insufficiency. Pulmonic Valve Trivial pulmonic valve insufficiency. Great Vessels Normal sized aortic root. Pericardium/Pleural No pericardial effusion. MMode/2D Measurements Calculations LVIDd: 4.0 cm IVSd: 1.3 cm LVOT diam: 2.0 cm LVIDs: 2.7 cm LVPWd: 1.2 cm LVOT area: 3.3 cm2 RVDd: 3.7 cm FS: 32.5 % Ao root diam: 3.0 cm LAV(MOD-bp): 105.0 ml LVAd ap4: 18.5 cm2 LAV(MOD-bp) Indexed: 73.1 ml/m2 LVLd ap4: 6.7 cm LAV(MOD-sp2): 93.8 ml EDV(MOD-sp4): 42.1 ml LAV(MOD-sp4): 113.6 ml EDV(sp4-el): 43.6 ml LVAs ap4: 9.2 cm2 LVLs ap4: 5.6 cm ESV(MOD-sp4): 13.0 ml ESV(sp4-el): 12.9 ml EF(MOD-sp4): 69.1 % EF(sp4-el): 70.4 % SV(MOD-sp4): 29.1 ml SV(sp4-el): 30.7 ml Aortic Valve Planimetry: 1.1 cm2 SI(MOD-sp4): 20.3 ml/m2 LA A4 area: 31.6 cm2 LA dimension(2D): 4.7 cm RA A4 area: 21.8 cm2 TAPSE: 1.9 cm Doppler Measurements Calculations MV E max matilda: 111.7 cm/sec MV V2 max: 122.5 cm/sec Ao V2 max: 109.0 cm/sec MV max P.0 mmHg Ao max P.8 mmHg MV V2 mean: 58.4 cm/sec Ao V2 mean: 78.9 cm/sec MV mean P.8 mmHg Ao mean P.8 mmHg MV V2 VTI: 27.1 cm Ao V2 VTI: 24.8 cm AV (velocity ratio): 0.71 MVA(VTI): 2.1 cm2 CARMELINA(I,D): 2.3 cm2 CARMELINA(V,D): 2.5 cm2 AI max matilda: 457.5 cm/sec LV V1 max: 83.6 cm/sec MR max matilda: 635.0 cm/sec AI max P.7 mmHg LV V1 max P.8 mmHg MR max P.3 mmHg AI dec slope: 234.1 cm/sec2 LV V1 mean P.6 mmHg MR mean matilda: 474.3 cm/sec AI P1/2t: 572.3 msec LV V1 mean: 60.5 cm/sec MR mean P.6 mmHg LV V1 VTI: 17.5 cm MR VTI: 210.8 cm SV(LVOT): 57.4 ml PA V2 max: 73.4 cm/sec TR max matilda: 273.9 cm/sec TR max P.8 mmHg ECHO/Echo Complete Interpretation Summary The left ventricular ejection fraction is 60 %. The left atrium is severely enlarged. The right atrium is moderately enlarged. Mild-Moderate (1-2+) mitral valve insufficiency. Moderate (2+) tricuspid valve insufficiency. Aortic sclerosis, no stenosis. Mild (1+) aortic valve insufficiency. Ordering Physician: Jody Moffett Performed By: Barrie Bass RCS 07/31/25 7574 Date Ronald Brizuela MD CC: Dr. Deepika Fabian MD; Dr. Irwin Emmanuel DO; Dr. Jody Moffett MD Date Dictated: 07/31/25 0908 Date Transcribed: 07/31/25 1611 Fpga Engineer: Signed Normal [facility] Emergency Department Summary on 07-30-2025 Emergency Department Summary [facility] Medical Records Department [address] [place] [address] Emergency Department Summary 07/30/25 MR#: [id number] Acct: [id number] Name: DEA MERRITT Rep #: [id number] : 1935 89 From: Micah Magana MD PCP: Dr. Deepika Fabian MD Status:ADM EDILBERTO Location: [address] History of Present Illness Chief Complaint: Stroke Alert Detail of Chief Complaint: Strokelike symptoms with slurred speech facial droop starting at 1500 Informant: patient and family Onset/Context/Timing Onset: Today Context: Sudden Onset Timing: Continuous Quality and Location: Positive for Right Facial Droop and Slurred Speech Onset: 1500 Current Severity: Mild Maximum Severity: Mild Worsened by: Nothing Relieved by: Nothing Associated Symptoms Associated Symptoms: Negative for Headache, Nausea, Vomiting or Chest Pain Narrative Narrative: Patient is an elderly woman with prior stroke involving the right MCA distribution. She presents with slurred speech, facial droop. She is disoriented. This is not abnormal for her per daughter. This is baseline. She is on Xarelto. She is compliant with her Xarelto. She has persistent longstanding atrial fibrillation and reason she is on Xarelto. Daughter states she was worse and unable to walk. Prior similar symptoms: Yes Recent Illness/Hospitalizatio n: No PFSH PFSH Medical History Diarrhea Cellulitis of mid back region Abrasion of right upper back excluding scapular region Longstanding persistent atrial fibrillation Arthritis involving multiple sites Essential hypertension CVA (cerebral vascular accident) (02/15/22) Anxiety GERD (gastroesophageal reflux disease) HLD (hyperlipidemia) Home Medications ???Medication ???Instructions ???Recorded ???Last Taken ???Type fluorometholone 0.1 % eye 1 drp ophthalmic (eye) BID PRN Dry 03/02/22 Unknown History drops,suspension Eyes cyanocobalamin (vitamin B-12) 1,000 mcg PO DAILY vitamin 3 04/18/24 History 1,000 mcg tablet ferrous sulfate 325 mg (65 mg 325 mg PO DAILY supplement 3 04/18/24 History iron) tablet (Feosol) lorazepam 0.5 mg tablet 0.25 mg (1/2 x 0.5 mg) PO PRN PRN 10/18/23 Unknown Rx anxiety #10 tabs handicap placard #1 ea 01/23/24 Unknown Rx cholecalciferol (vitamin D3) 25 2,000 unit PO DAILY vitamin Unknown History mcg (1,000 unit) tablet rivaroxaban 20 mg tablet (Xarelto) 20 mg PO QPM blood thinner #90 t abs 11/20/24 Unknown Rx carvedilol 3.125 mg tablet (Coreg) 3.125 mg PO BID #180 tabs Unknown Rx cetirizine 5 mg tablet 2.5 mg PO QDAY PRN 06/29/25 Unknow n History losartan 100 mg tablet 100 mg PO DAILY blood pressure #90 06/29/25 Unknown Rx tabs Allergy/AdvReac Type Severity Reaction Status Date / Time clindamycin Allergy Other Verified 07/30/25 17:48 hyoscyamine Allergy Other Verified 07/30/25 17:48 Penicillins Allergy Hives Verified 07/30/25 17:48 Vvzzvof-GZV-BiG Reductase Allergy Pain in Verified 07/30/25 17:48 Inhibitor (Ebxoubp-Jve-Fou joints Reductase Inhibitor) nitrofurantoin (From AdvReac Mild altered Verified 07/30/25 17:48 Macrobid) mental status glucosamine AdvReac Other Verified 07/30/25 17:48 Family History Father Diabetes Hyperlipemia Mother Cancer stomach Brother Parkinson's disease Surgical History Cataract extraction status Social History household members: none 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 occupational status: 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 pets and animals: Yes pets and animals: cat(s) Smoking Status: Never smoker Electronic Cigarette Use: not used alcohol intake: current alcohol intake frequency: holidays/special occasions only substance use type: does not use what type of physical activity do you participate in: other details: gardening do you feel safe at home: Yes ROS ROS ED Constitutional Constitutional ED: Denies chills, fever(s), subjective or sweats Eyes Eyes: Denies blurry vision or change in vision ENT ENT ED: Denies ear pain, rhinorrhea or sore throat Cardiovascular Cardiovascular: Denies chest pain, palpitations, paroxysmal nocturnal dyspnea or racing heartbeat Respiratory/Chest Respiratory/Chest: Denies cough, dyspnea, dyspnea on exertion or paroxysmal nocturnal dyspnea Gastrointestinal Gastrointestinal: Denies abdominal pain, nausea or vomiting Genitourinary Genitourinary ED: Denies dysuria, hematuria or urinary frequency Musculoskeletal Musculoskeletal: Denies arthralgias or myalgias Integumentary Denies rash Neurologic Neurologic: Reports weakness; Denies headache(s) or paresthesias (more content not included)... Normal [facility] H AND P Exam - Hospitaliston 07-30-2025 H&P Exam - Hospitalist [facility] Medical Records Department [address] [place] [address] H P Exam - Hospitalist 07/30/252024 MR#: [id number] Acct: [id number] Name: DEA MERRITT Rep #: [id number] : 1935 89 From: Jody Moffett MD PCP: Dr. Deepika Fabian MD Status:ADM EDILBERTO Location: [place] [address]-1 HPI - General General Date of Admission: 07/30/25 Date of Service: 07/30/25 Chief Complaint: heavy legs HPI Narrative DEA MERRITT, is a 89-year-old female history of CVA and right MCA distribution, A-fib on Xarelto, hypertension who presented [facility] ED 07/30/2025 due to slurred speech and difficulty walking. Patient was a stroke alert. On arrival temp 97.2, heart rate 84 with a blood pressure 159/58, respiratory rate 19 and pulse ox 99% on room air. CBC largely unremarkable, BMP with BUN of 16 creatinine 0.85 and a glucose of 108, troponin 19. CT brain and CTA head and neck no acute process. Teleneurology did not think she was a lytic candidate due to the recent use of Xarelto and recommended MRI brain/CVA workup. Patient evaluated with daughter at bedside, patient somewhat poor historian but between daughter and patient it seems that she went to the store earlier and was doing fine but when she got back around 345 she felt like her legs were heavy and it was difficult to walk, she meant intermittently was having some difficulty with her speech and reported posterior headache and felt a little bit dizzy and weak. Due to her previous history of stroke they brought her to the ED. Daughter reports speech is still intermittently off, patient feels like both of her legs are still heavy but denies any paresthesias, no upper extremity symptoms, no new facial symptoms, apparently has some residual facial droop from previous stroke. No current headache, no changes in vision. Denies any changes in urination, has had some constipation, eats well and eats balanced, no fevers, abdominal pain, nausea vomiting. Daughter did know earlier today she helped her to the bathroom and she had a couple drops of blood in the toilet they suspect are from hemorrhoids, no heavy bleeding or other bleeding noted in hemoglobin to ED stable [facility] Medical History Diarrhea Cellulitis of mid back region Abrasion of right upper back excluding scapular region Longstanding persistent atrial fibrillation Arthritis involving multiple sites Essential hypertension CVA (cerebral vascular accident) (02/15/22) Anxiety GERD (gastroesophageal reflux disease) HLD (hyperlipidemia) Home Medications ???Medication ???Instructions ???Recorded ???Last Taken ???Type fluorometholone 0.1 % eye 1 drp ophthalmic (eye) BID PRN Dry 03/02/22 Unknown History drops,suspension Eyes cyanocobalamin (vitamin B-12) 1,000 mcg PO DAILY vitamin 3 04/18/24 History 1,000 mcg tablet ferrous sulfate 325 mg (65 mg 325 mg PO QODAY supplement 3 04/18/24 History iron) tablet (Feosol) handicap romainard #1 ea 01/23/24 Unknown Rx cholecalciferol (vitamin D3) 25 2,000 unit PO DAILY vitamin Unknown History mcg (1,000 unit) tablet rivaroxaban 20 mg tablet (Xarelto) 20 mg PO QPM blood thinner #90 t abs 11/20/24 Unknown Rx carvedilol 3.125 mg tablet (Coreg) 3.125 mg PO BID bp #180 tabs Unknown Rx cetirizine 5 mg tablet 2.5 mg PO QDAY PRN allergy symptom s 06/29/25 Unknown History losartan 100 mg tablet 100 mg PO DAILY blood pressure #90 06/29/25 Unknown Rx tabs Allergy/AdvReac Type Severity Reaction Status Date / Time clindamycin Allergy Other Verified 07/30/25 17:48 hyoscyamine Allergy Other Verified 07/30/25 17:48 Penicillins Allergy Hives Verified 07/30/25 17:48 Deskulh-TPP-ErK Reductase Allergy Pain in Verified 07/30/25 17:48 Inhibitor (Csznenf-Wjw-Nzx joints Reductase Inhibitor) nitrofurantoin (From AdvReac Mild altered Verified 07/30/25 17:48 Macrobid) mental status glucosamine AdvReac Other Verified 07/30/25 17:48 Family History Father Diabetes Hyperlipemia Mother Cancer stomach Brother Parkinson's disease Surgical History Cataract extraction status Social History household members: none 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 Normal [facility] L501.4021on 07-30-2025 Trop T High Sen 19 ng/L High <=14 [facility] Comment on above: Performed By: #### L 140.8027, L500.4100, L500.2500, L100.0100 #### [facility] Laboratory [address] [place], [address] Partial Thromboplast Timeon 07-30-2025 aPTT Coag (Bld) [Time] 26.6 s Normal 24.1-36.2 [facility] Comment on above: Performed By: #### L 501.9520, L500.4100, L500.2500, L100.0100 #### [facility] Laboratory [address] [place], [address] Prothrombin Time w/INRon INR Coag (PPP) [Relative time] 1.3 {INR} Normal [facility] Comment on above: Performed By: #### L 501.9520, L500.4100, L500.2500, L100.0100 #### [facility] Laboratory [address] [place], [address] PT Coag (PPP) [Time] 16.1 s High 11.7-14.9 [facility] Comment on above: Performed By: #### L 501.9520, L500.4100, L500.2500, L100.0100 #### [facility] Laboratory [address] [place], [address] STROKE Brain/Head without Co nton 07-30-2025 STROKE Brain/Head without Cont [facility] Imaging Services [address] [place] [address] STROKE Brain/Head without Cont MR#: [id number] Acct: [id number] Name: DEA MERRITT Rep #: [id number] : 1935 F 89 From: Charles Box MD PCP: Dr. Deepika Fabian MD Status: REG ER Study: STROKE Brain/Head without Cont Date of Exam: 1 Exam# [id number] Ordering Dr: Micah Magana MD PROCEDURE: STROKE BRAIN/HEAD WITHOUT CONT 07/30/2025 REASON FOR EXAM: NEURO DEFICIT, ACUTE, STROKE SUSPECTED TECHNIQUE: Procedure Code: CTBR.ST Modality: CT Procedure: STROKE BRAIN/HEAD WITHOUT CONT Coronal and Sagittal reconstruction series were provided. One or more dose reduction techniques were used (e.g., Automated exposure control, adjustment of the mA and/or kV according to patient size, use of iterative reconstruction technique. FINDINGS: Breast severe global parenchymal atrophy. Periventricular white matter hypodensity likely representing severe chronic microvascular ischemia. No evidence of acute hemorrhage or infarction. No extra-axial blood or fluid collections. The paranasal sinuses and mastoid air cells are clear. The calvarial vault and skull base are intact. CT/STROKE Brain/Head without Cont IMPRESSION: No acute intracranial abnormality. Critical results were communicated to Dr. Magana at 6 p.m.. Reading Location: [address] CC: Dr. Deepika Fabian MD; Dr. Micah Magana MD Fpga Engineer: Signed Normal [facility] STROKE CTA Head AND Neck W/C onon 07-30-2025 STROKE CTA Head AND Neck W/Con [facility] Imaging Services [address] [place] [id number] STROKE CTA Head AND Neck W/Con MR#: [id number] Acct: [id number] Name: DEA MERRITT Rep #: [id number] : 1935 F 89 From: Lisbeth Romo MD PCP: Dr. Deepika Fabian MD Status: REG ER Study: STROKE CTA Head AND Neck W/Con Date of Exam: Exam# [id number] Ordering Dr: Micah Magana MD PROCEDURE: STROKE CTA HEAD AND NECK W/CON 07/30/2025 REASON FOR EXAM: NEURO DEFICIT, ACUTE, STROKE SUSPECTED TECHNIQUE: Procedure Code: CTCTA.ST.HN Modality: CT Procedure: STROKE CTA HEAD AND NECK W/CON Multiplanar Sagittal and Coronal images were obtained. CONTRAST: Isovue 370 VOLUME: 100 mL One or more dose reduction techniques were used (e.g., Automated exposure control, adjustment of the mA and/or kV according to patient size, use of iterative reconstruction technique). RADIATION DOSE SUMMARY: CTDlvol: 26.19 mGy DLP: 872.47 mGycm COMPARISON: None. FINDINGS: Aortic Arch: Normal size and branching pattern. No significant atherosclerotic plaque. Brachiocephalic and Subclavians: Unremarkable RIGHT Carotid: Right CCA: Unremarkable. Right ICA: Atherosclerotic calcifications at the carotid bulb without hemodynamically significant stenosis. Right ECA: Unremarkable. LEFT Carotid: Left CCA: Unremarkable. Left ICA: Atherosclerotic calcifications of the carotid bulbs without hemodynamically significant stenosis. Left ECA: Unremarkable. Vertebrals: Codominant. Arise from the subclavians. Both vertebrals form the basilar. RIGHT Vertebral: Unremarkable. LEFT Vertebral: Unremarkable. Anatomy: [place] anatomy is normal. Aneurysm or avm: No intracranial aneurysms or large vascular malformations are identified. Anterior cerebral arteries: Unremarkable: Middle cerebral arteries: Unremarkable. Basilar artery: Unremarkable. Posterior cerebral arteries: Unremarkable. Other major branches of the posterior circulation: Unremarkable. Major venous structures: Other findings: Neck: No lymphadenopathy. Lungs: Lung apices are clear. Bones: Bones are unremarkable. CT/STROKE CTA Head AND Neck W/Con IMPRESSION: No hemodynamically significant stenosis in the head and neck. Reading Location: [facility] CC: Dr. Deepika Fabian MD; Dr. Micah Magana MD Fpga Engineer: Signed Normal [facility] Troponin T HS 2 HRon 025 Trop T High Sen 21 ng/L High <=14 [facility] Comment on above: Performed By: #### L 501.9520, L500.4100, L500.2500, L100.0100 #### [facility] Laboratory [address] [place], [address] Troponin T HS 4 HRon 07-30-2 025 Trop T High Sen 20 ng/L High <=14 [facility] Comment on above: Performed By: #### L 501.9520, L500.4100, L500.2500, L100.0100 #### [facility] Laboratory [address] [place], [address] Urinalysis, Completeon 07-30 BACTERIA RARE Normal None Seen [facility] Comment on above: Order Comment: Comme nts: NPO at [place] prior to lipid panel Performed By: #### L 501.9520, L500.4100, L500.2500, L100.0100 #### [facility] Laboratory [address] [place], [address] EPI,SQUAMOUS 0-5 SEEN Normal 5-10 [facility] Comment on above: Order Comment: Comme nts: NPO at [place] prior to lipid panel Performed By: #### L 501.9520, L500.4100, L500.2500, L100.0100 #### [facility] Laboratory [address] [place], [address] RBC 0-5 SEEN Normal 0-5 [facility] Comment on above: Order Comment: Comme nts: NPO at [place] prior to lipid panel Performed By: #### L 501.9520, L500.4100, L500.2500, L100.0100 #### [facility] Laboratory [address] [place], [address] WBC 5-10 SEEN Normal 0-5 [facility] Comment on above: Order Comment: Comme nts: NPO at [place] prior to lipid panel Performed By: #### L 501.9520, L500.4100, L500.2500, L100.0100 #### [facility] Laboratory [address] [place], [address] Mucus Ql (Urine sed) 0 SEEN Normal [facility] Comment on above: Order Comment: Comme nts: NPO at [place] prior to lipid panel Performed By: #### L 501.9520, L500.4100, L500.2500, L100.0100 #### [facility] Laboratory [address] [place], [address] Internal Medicine Office Vis linda 06-26-2025 Internal Medicine Office Visit [facility] [address] [place] [address] [place] [address] OFFICE VISIT Date of Service: 06/29/25 MR#: [id number] Acct: [id number] Name: DEA MERRITT Rep #: [id number] : 1935 Provider: Dr. 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 COLIN-7 BMS COLIN-7 Feeling nervous, anxious, or [...] (more content not included)... Normal [facility] Absolute lymphocyte countOrd ered By: Deepika Fabian on 03-31-2025 Lymphocytes Auto (Unsp spec) [#/Vol] 1.39 10*3/uL 0.83-4.51 [facility] Absolute neutrophil countOrd ered By: Deepika Fabian on 03-31-2025 Neutrophils (Bld) [#/Vol] 2.8 10*3/uL 2.0-7.7 [facility] Anion gap in Serum or Plasma Ordered By: Deepika Fabian on 03-31-2025 Anion gap [Moles/Vol] 11 mmol/L 5-15 [facility] Automated lymphocyte count a s percentage of total leukocytesOrdered By: Deepika Fabian on 03-31-2025 Lymphocytes/100 WBC Auto (Unsp spec) 28.1 % 19-41 [facility] BUN/creatinine ratioOrdered By: Deepika Fabian on 03-31-2025 Urea nitrogen/Creatinine [Mass ratio] 17.1 mg/mg 10-20 [facility] Basophil percentageOrdered B y: Deepika Caren on 03-31-2025 Basophils/100 WBC (Bld) 1.4 % High 0-1 [facility] Bilirubin, totalOrdered By: Deepika oMnterrosoy on 03-31-2025 Bilirubin [Mass/Vol] 0.41 mg/dL 0.00-1.30 [facility] CBC W/Diff, Automatedon 03-09 Absolute Lymph 1.39 X10 3/uL Normal 0.83-4.51 [facility] Comment on above: Performed By: #### L 501.9520, L500.4100, L500.2500, L100.0100 #### [facility] Laboratory [address] [place], [address] Absolute Neut 2.8 X10 3/uL Normal 2.0-7.7 [facility] Comment on above: Performed By: #### L 501.9520, L500.4100, L500.2500, L100.0100 #### [facility] Laboratory [address] [place], [address] Basophils/100 WBC (Bld) 1.4 % High 0-1 [facility] Comment on above: Performed By: #### L 501.9520, L500.4100, L500.2500, L100.0100 #### [facility] Laboratory [address] [place], [address] Eosinophils/100 WBC (Bld) 4.4 % Normal 0-5 [facility] Comment on above: Performed By: #### L 501.9520, L500.4100, L500.2500, L100.0100 #### [facility] Laboratory [address] [place], [address] Erythrocyte distribution width (RBC) [Ratio] 11.9 % Normal 11.6-14.6 [facility] Comment on above: Performed By: #### L 501.9520, L500.4100, L500.2500, L100.0100 #### [facility] Laboratory [address] [place], [address] Hematocrit (Bld) [Volume fraction] 42.4 % Normal 37-47 [facility] Comment on above: Performed By: #### L 501.9520, L500.4100, L500.2500, L100.0100 #### [facility] Laboratory [address] [place], [address] Hemoglobin (Bld) [Mass/Vol] 14.1 g/dL Normal 12.0-15. 0 [facility] Comment on above: Performed By: #### L 501.9520, L500.4100, L500.2500, L100.0100 #### [facility] Laboratory [address] [place], [address] IG% 0.200 Normal 0.0-0.9 [facility] Comment on above: Result Comment: IG% - Immature Granulocytes (promyelocytes, myelocytes and metamyelocytes) > 1% indicates that a LEFT SHIFT is Present. Performed By: #### L 501.9520, L500.4100, L500.2500, L100.0100 #### [facility] Laboratory [address] [place], [address] Lymphocytes/100 WBC (Bld) 28.1 % Normal 19-41 [facility] Comment on above: Performed By: #### L 501.9520, L500.4100, L500.2500, L100.0100 #### [facility] Laboratory [address] [place], [address] MCH (RBC) [Entitic mass] 32.4 pg High 27.0-32.0 [facility] Comment on above: Performed By: #### L 501.9520, L500.4100, L500.2500, L100.0100 #### [facility] Laboratory [address] [place], [address] MCHC (RBC) [Mass/Vol] 33.3 g/dL Normal 32-36 [facility] Comment on above: Performed By: #### L 501.9520, L500.4100, L500.2500, L100.0100 #### [facility] Laboratory [address] [place], [address] MCV (RBC) [Entitic vol] 97.5 fL Normal 81-99 [facility] Comment on above: Performed By: #### L 501.9520, L500.4100, L500.2500, L100.0100 #### [facility] Laboratory [address] [place], [address] Monocytes/100 WBC (Bld) 8.5 % Normal 0-10 [facility] Comment on above: Performed By: #### L 501.9520, L500.4100, L500.2500, L100.0100 #### [facility] Laboratory [address] [place], [address] Neutrophils/100 WBC (Bld) 57.4 % Normal 47-70 [facility] Comment on above: Performed By: #### L 501.9520, L500.4100, L500.2500, L100.0100 #### [facility] Laboratory [address] [place], [address] Nucleated RBC (Bld) [#/Vol] 0 10*3/uL Normal 0-5 [facility] Comment on above: Performed By: #### L 501.9520, L500.4100, L500.2500, L100.0100 #### [facility] Laboratory [address] [place], [address] Platelet mean volume (Bld) [Entitic vol] 11.7 fL Normal 6.2-12.0 [facility] Comment on above: Performed By: #### L 501.9520, L500.4100, L500.2500, L100.0100 #### [facility] Laboratory [address] [place], [address] Platelets (Bld) [#/Vol] 261 10*3/uL Normal 150-450 [facility] Comment on above: Performed By: #### L 501.9520, L500.4100, L500.2500, L100.0100 #### [facility] Laboratory [address] [place], [address] RBC (Bld) [#/Vol] 4.35 10*6/uL Normal 4.2-5.4 [facility] Comment on above: Performed By: #### L 501.9520, L500.4100, L500.2500, L100.0100 #### [facility] [address] [place], [address] RDW SD 43.1 fl Normal 35.1-43.9 [facility] Comment on above: Performed By: #### L 501.9520, L500.4100, L500.2500, L100.0100 #### [facility] [address] [place], [address] WBC (Bld) [#/Vol] 5.0 10*3/uL Normal 4.4-11.0 [facility] Comment on above: Performed By: #### L 501.9520, L500.4100, L500.2500, L100.0100 #### [facility] [address] [place], [address] Calculated very low density lipoprotein (VLDL) cholesterol measurementOrdered By: Deepika Fabian on 03-31-2025 Calculated very low density lipoprotein (VLDL) cholesterol measurement 25 mg/dL 5-40 [facility] Carbon dioxide, total [Moles /volume] in Central venous bloodOrdered By: Deepika Fabian on 03-31-2025 CO2 [Moles/Vol] 26.6 mmol/L 21.0-32.0 [facility] Chloride assayOrdered By: Franco Fabian on 03-31-2025 Chloride [Moles/Vol] 104 mmol/L 98-108 [facility] Comprehensive Metabolic Prof ilon 03-31-2025 Albumin [Mass/Vol] 4.0 g/dL Normal 3.4-4.8 [facility] Comment on above: Performed By: #### L 501.9520, L500.4100, L500.2500, L100.0100 #### [facility] [address] [place], [address] Albumin/Globulin [Mass ratio] 1.4 {ratio} Normal 0.9-2.4 [facility] Comment on above: Performed By: #### L 501.9520, L500.4100, L500.2500, L100.0100 #### [facility] [address] [place], [address] ALK PHOS 80 U/L Normal 35-104 [facility] Comment on above: Performed By: #### L 501.9520, L500.4100, L500.2500, L100.0100 #### [facility] [address] [place], [address] ALT [Catalytic activity/Vol] 20 U/L Normal <=34 [facility] Comment on above: Performed By: #### L 501.9520, L500.4100, L500.2500, L100.0100 #### [facility] [address] [place], [address] AST [Catalytic activity/Vol] 24 U/L Normal <=31 [facility] Comment on above: Performed By: #### L 501.9520, L500.4100, L500.2500, L100.0100 #### [facility] [address] [place], [address] Bilirubin [Mass/Vol] 0.41 mg/dL Normal 0.00-1.30 [facility] Comment on above: Performed By: #### L 501.9520, L500.4100, L500.2500, L100.0100 #### [facility] [address] [place], [address] BUN/CRE 17.1 RATIO Normal 10-20 [facility] Comment on above: Performed By: #### L 501.9520, L500.4100, L500.2500, L100.0100 #### [facility] [address] [place], [address] Calcium [Mass/Vol] 9.4 mg/dL Normal 7.6-11.0 [facility] Comment on above: Performed By: #### L 501.9520, L500.4100, L500.2500, L100.0100 #### [facility] [address] [place], [address] Chloride [Moles/Vol] 104 mmol/L Normal 98-108 [facility] Comment on above: Performed By: #### L 501.9520, L500.4100, L500.2500, L100.0100 #### [facility] [address] [place], [address] CO2 [Moles/Vol] 26.6 mmol/L Normal 21.0-32.0 [facility] Comment on above: Performed By: #### L 501.9520, L500.4100, L500.2500, L100.0100 #### [facility] [address] [place], [address] Creatinine [Mass/Vol] 0.71 mg/dL Normal 0.70-1.20 [facility] Comment on above: Performed By: #### L 501.9520, L500.4100, L500.2500, L100.0100 #### [facility] [address] [place], [address] GAP 11 Normal 5-15 [facility] Comment on above: Performed By: #### L 501.9520, L500.4100, L500.2500, L100.0100 #### [facility] [address] [place], [address] GFR/1.73 sq M.predicted among non-blacks MDRD (S/P/Bld) [Vol rate/Area] 83 mL/min/{1.73_m2} Normal >60 [facility] Comment on above: Result Comment: mL/m in/1.73m2 CKD-EPI Creatinine Equation (2020) Performed By: #### L 501.9520, L500.4100, L500.2500, L100.0100 #### [facility] [address] [place], [address] Globulin (S) [Mass/Vol] 2.8 g/dL Normal 2.2-4.2 [facility] Comment on above: Performed By: #### L 501.9520, L500.4100, L500.2500, L100.0100 #### [facility] [address] [place], [address] Glucose [Mass/Vol] 89 mg/dL Normal 70-99 [facility] Comment on above: Performed By: #### L 501.9520, L500.4100, L500.2500, L100.0100 #### [facility] [address] [place], [address] Potassium [Moles/Vol] 4.2 mmol/L Normal 3.3-5.1 [facility] Comment on above: Performed By: #### L 501.9520, L500.4100, L500.2500, L100.0100 #### [facility] [address] [place], [address] Sodium [Moles/Vol] 141 mmol/L Normal 133-145 [facility] Comment on above: Performed By: #### L 501.9520, L500.4100, L500.2500, L100.0100 #### [facility] [address] [place], [address] T PROT 6.8 g/dL Normal 5.9-8.4 [facility] Comment on above: Performed By: #### L 501.9520, L500.4100, L500.2500, L100.0100 #### [facility] [address] [place], [address] Urea nitrogen [Mass/Vol] 12 mg/dL Normal 4-19 [facility] Comment on above: Performed By: #### L 501.9520, L500.4100, L500.2500, L100.0100 #### [facility] [address] [place], [address] Eosinophil percentageOrdered By: Deepika Fabian on 03-31-2025 Eosinophils/100 WBC (Bld) 4.4 % 0-5 [facility] Erythrocyte distribution wid th ratioOrdered By: Deepika Fabian on 03-31-2025 Erythrocyte distribution width (RBC) [Ratio] 11.9 % 11.6-14.6 [facility] Erythrocyte distribution wid th standard deviationOrdered By: Deepika Fabian on 03-31-2025 Erythrocyte distribution width (RBC) [Ratio] 43.1 fl 35.1-43.9 [facility] Glomerular filtration rate ( GFR) estimation/1.73 sq m using serum, plasma, or whole bOrdered By: Deepika Fabian on 03-31-2025 GFR/1.73 sq M.predicted among non-blacks MDRD (S/P/Bld) [Vol rate/Area] 83 mL/min/{1.73_m2} >60 [facility] Comment on above: mL/min/1.73m2 CKD-EP I Creatinine Equation (2020) Hematocrit Auto (Bld) [Volum e fraction]Ordered By: Deepika Fabian on 03-31-2025 Hematocrit (Bld) [Volume fraction] 42.4 % 37-47 [facility] Hemoglobin measurementOrdere d By: Deepika Fabian on 03-31-2025 Hemoglobin (Bld) [Mass/Vol] 14.1 g/dL 12.0-15. 0 [facility] Immature granulocytes/100 WB C Auto (Bld)Ordered By: Deepika Fabian on 03-31-2025 Immature granulocytes/100 WBC (Bld) 0.200 % 0.0-0.9 [facility] Comment on above: IG% - Immature Granu locytes (promyelocytes, myelocytes and metamyelocytes) > 1% indicates that a LEFT SHIFT is Present. LDL calc ser/plasOrdered By: Deepika Fabian on 03-31-2025 Cholesterol in LDL [Mass/Vol] 217 mg/dL [facility] Comment on above: Zopuxialza=333-026 m g/dL & Higher Bluh=573 mg/dL or greater Laboratory - Chemistry and C hemistry - challengeOrdered By: Deepika Fabian on 03-31-2025 AST [Catalytic activity/Vol] 24 U/L <32 [facility] Lipid Profileon 03-31-2025 CHOL:HDL 4.59 Normal [facility] Comment on above: Performed By: #### L 501.9520, L500.4100, L500.2500, L100.0100 #### [facility] [address] [place], [address] Cholesterol [Mass/Vol] 310 mg/dL High <=200 [facility] Comment on above: Result Comment: Chol esterol level, Desirable <200 mg/dL Borderline high cholesterol 200-239 mg/dL High cholesterol >=240 mg/dL Recommendations of the NCEP Adult Treatment Panel for the following risk-cutoff thresholds for the [place] population. Performed By: #### L 501.9520, L500.4100, L500.2500, L100.0100 #### [facility] [address] [place], [address] Cholesterol in HDL [Mass/Vol] 68 mg/dL Normal [facility] Comment on above: Result Comment: Mikala onal Cholesterol Education Program (NCEP) guidelines: <40 mg/dL: Low HDL-cholesterol (major risk factor for CHD) >= 60 mg/dL: High HDL-cholesterol (negative risk factor for CHD) HDL-cholesterol is affected by a number of factors, e.g. smoking, exercise, hormones, sex and age. Performed By: #### L 501.9520, L500.4100, L500.2500, L100.0100 #### [facility] [address] [place], [address] Cholesterol in LDL [Mass/Vol] 217 mg/dL Normal [facility] Comment on above: Result Comment: Bord btfaiv=877-904 mg/dL Higher Jowe=699 mg/dL or greater Performed By: #### L 501.9520, L500.4100, L500.2500, L100.0100 #### [facility] [address] [place], [address] Cholesterol in VLDL [Mass/Vol] 25 mg/dL Normal 5-40 [facility] Comment on above: Performed By: #### L 501.9520, L500.4100, L500.2500, L100.0100 #### [facility] [address] [place], [address] Triglyceride [Mass/Vol] 126 mg/dL Normal [facility] Comment on above: Result Comment: The drugs N-Acetylcysteine and Metamizole may falsely depress this assay. Normal range: <150 mg/dL Borderline High: 150-199 mg/dL High: 200-499 mg/dL Very High: >500 mg/dL Performed By: #### L 501.9520, L500.4100, L500.2500, L100.0100 #### [facility] [address] [place], [address] MCV (mean corpuscular volume ) determinationOrdered By: Deepika Caren on 03-31-2025 MCV (RBC) [Entitic vol] 97.5 fL 81-99 [facility] Mean corpuscular hemoglobin (MCH) determinationOrdered By: Deepika [place] on 03-31-2025 MCH (RBC) [Entitic mass] 32.4 pg High 27.0-32.0 [facility] Mean corpuscular hemoglobin concentration (MCHC) determinationOrdered By: Deepika Fabian on 03-31-2025 MCHC (RBC) [Mass/Vol] 33.3 g/dL 32-36 [facility] Mean platelet volume determi nationOrdered By: Deepika Fabian on 03-31-2025 Platelet mean volume (Bld) [Entitic vol] 11.7 fL 6.2-12.0 [facility] Monocyte percentageOrdered B y: Deepika Fabian on 03-31-2025 Monocytes/100 WBC (Bld) 8.5 % 0-10 [facility] Neutrophil percentageOrdered By: Deepika Fabian on 03-31-2025 Neutrophils/100 WBC (Bld) 57.4 % 47-70 [facility] Nucleated red blood cell per centageOrdered By: Deepika Fabian on 03-31-2025 Nucleated RBC/100 WBC (Bld) [Ratio] 0 % 0-5 [facility] Platelet countOrdered By: Franco Fabian on 03-31-2025 Platelets (Bld) [#/Vol] 261 10*3/uL 150-450 [facility] Potassium measurement (mass/ volume)Ordered By: Deepika Fabian on 03-31-2025 Potassium (Unsp spec) [Mass/Vol] 4.2 mmol/L 3.3-5.1 [facility] RBC Auto (Bld) [#/Vol]Ordere d By: Deepika Fabian on 03-31-2025 RBC (Bld) [#/Vol] 4.35 10*6/uL 4.2-5.4 [facility] Screening total cholesterol/ high density lipoprotein (HDL) cholesterol ratioOrdered By: Deepika Fabian on 03-31-2025 Cholesterol.total/Cholester ol in HDL [Mass ratio] 4.59 {ratio} [facility] Serum creatinine measurement (mass/volume)Ordered By: Deepika Fabian on 03-31-2025 Creatinine [Mass/Vol] 0.71 mg/dL 0.70-1.20 [facility] Serum globulin measurementOr dered By: Deepika Fabian on 03-31-2025 Globulin (S) [Mass/Vol] 2.8 g/dL 2.2-4.2 [facility] Serum glucose measurement (m ass/volume)Ordered By: Deepika Fabian on 03-31-2025 Glucose [Mass/Vol] 89 mg/dL 70-99 [facility] Serum or plasma alanine hernandez otransferase (ALT) measurementOrdered By: Deepika Fabian on 03-31-2025 ALT [Catalytic activity/Vol] 20 U/L <35 [facility] Serum or plasma albumin alissa urement (mass/volume)Ordered By: Deepika Fabian on 03-31-2025 Albumin [Mass/Vol] 4.0 g/dL 3.4-4.8 [facility] Serum or plasma albumin/glob ulin mass ratioOrdered By: Deepika Fabian on 03-31-2025 Albumin/Globulin [Mass ratio] 1.4 {ratio} 0.9-2.4 [facility] Serum or plasma alkaline [place] sphatase measurementOrdered By: Deepika Fabian on 03-31-2025 ALP [Catalytic activity/Vol] 80 U/L 35-104 [facility] Serum or plasma calcium alissa urement (mass/volume)Ordered By: Deepika Fabian on 03-31-2025 Calcium [Mass/Vol] 9.4 mg/dL 7.6-11.0 [facility] Serum or plasma cholesterol in HDL measurement (mass/volume)Ordered By: Deepika Fabian on 03-31-2025 Cholesterol in HDL [Mass/Vol] 68 mg/dL >40 [facility] Comment on above: National Cholesterol Education Program (NCEP) guidelines:<40 mg/dL: Low HDL-cholesterol (major risk factor for CHD)>= 60 mg/dL: High HDL-cholesterol (negative risk factor for CHD)HDL-cholesterol is affected by a number of factors, e.g. smoking, exercise, hormones, sex and age. Serum or plasma cholesterol measurement (mass/volume)Ordered By: Deepika Fabian on 03-31-2025 Cholesterol [Mass/Vol] 310 mg/dL High <201 [facility] Comment on above: Cholesterol level, D esirable <200 mg/dLBorderline high cholesterol 200-239 mg/dLHigh cholesterol >=240 mg/dLRecommendations of the NCEP Adult Treatment Panel for the following risk-cutoff thresholds for the [place] population. Serum or plasma urea nitroge n measurement (mass/volume)Ordered By: Deepika Fabian on 03-31-2025 Urea nitrogen [Mass/Vol] 12 mg/dL 4-19 [facility] Sodium levelOrdered By: Wayne Fabian on 03-31-2025 Sodium [Moles/Vol] 141 mmol/L 133-145 [facility] Total proteinOrdered By: Ray Fabian on 03-31-2025 Protein [Mass/Vol] 6.8 g/dL 5.9-8.4 [facility] Triglycerides measurementOrd ered By: Deepika Fabian on 03-31-2025 Triglyceride [Mass/Vol] 126 mg/dL <199 [facility] Comment on above: The drugs N-Acetylcy steine and Metamizole may falsely depress this assay. Normal range: <150 mg/dLBorderline High: 150-199 mg/dLHigh: 200-499 mg/dLVery High: >500 mg/dL Vitamin B12on 03-31-2025 Cobalamin (Vitamin B12) [Mass/Vol] 1784 pg/mL High 180-914 [facility] Comment on above: Performed By: #### L 501.9520, L500.4100, L500.2500, L100.0100 #### [facility] [place], [address] Vitamin B12 ser/plasOrdered By: Deepika Fabian on 03-31-2025 Cobalamin (Vitamin B12) [Mass/Vol] 1784 pg/mL High 180-914 [facility] Vitamin D,25 Hydroxyon 03-31 Vitamin D 25-OH 34.7 ng/mL Normal 30-100 [facility] Comment on above: Result Comment: Kasandra min D Status Deficiency: <20 ng/mL (50nmol/L) Insufficiency: 20-30 ng/mL (50-75 nmol/L) Sufficiency: 30-100 ng/mL (75-250 nmol/L) Toxicity: >100 ng/mL (>250 nmol/L) Performed By: #### L 501.9570, L500.4100, L500.2500, L100.0100 #### [facility] [address] [place], [address] White blood cell (WBC) count Ordered By: Deepika Fabian on 03-31-2025 WBC (Bld) [#/Vol] 5.0 10*3/uL 4.4-11.0 [facility] Internal Medicine Office Vis iton 03-30-2025 Internal Medicine Office Visit [facility] [address] [place], [place] [address] OFFICE VISIT Date of Service: 03/31/25 MR#: [id number] Acct: [id number] Name: DEA MERRITT Rep #: [id number] : 1935 Provider: Dr. 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 Accompanied by: Self Is patient in pain?: No Allergies clindamycin Allergy (Verified 03/31/25 08:10) Other hyoscyamine Allergy (Verified 03/31/25 08:10) Other Penicillins Allergy (Verified 03/31/25 08:10) Hives Mrocwir-ODL-DzU Reductase Inhibitor (Qovoffm-Gwq-Ljb Reductase Inhibitor) Allergy (Verified 03/31/25 08:10) Pain [...] stomach but not severe typically post eating [facility] Medical History Cellulitis of mid back [...] none 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 COLIN-7 BMS COLIN-7 Feeling nervous, anxious, or on edge: 0 = Not at all Not bein (more content not included)... Normal [facility] Urine Cultureon 02-01-2025 [facility] Mixed Gram Pos Gram Neg Org [place] Count 11,000-25,000 MIXC Mixed contaminants. Submit a new specimen if indicated. Normal [facility] Comment on above: Performed By: #### L 501.3937, L500.4100, L500.2500, L100.0100 #### [facility] [address] [place], [address] Urinalysis, Completeon 01-29 EPI,SQUAMOUS 0-5 SEEN Normal 5-10 [facility] Comment on above: Order Comment: Comme nts: NPO at [place] prior to lipid panel Performed By: #### L 501.9520, L500.4100, L500.2500, L100.0100 #### [facility] [address] [place], [address] Bilirubin Test strip Ql (U)O rdered By: Deepika Fabian on 01-28-2025 Bilirubin Ql (U) Negative Negative [facility] Cardiology Visit Reporton Cardiology Visit Report [facility] [address] [place], [place] [address] OFFICE VISIT Date of Service: 01/28/25 MR#: [id number] Acct: [id number] Name: DEA MERRITT Rep #: [id number] : 1935 Provider: GINA Guevara Age/Sex: 89/F Location: [facility] Status: Signed HPI HPI History of Present Illness Details: Dea Merritt is an 89-year-old lady with a history of hypertension hyperlipidemia intolerant of any statins and gastroesophageal reflux disease. She presented to [facility] with left facial droop and confusion on February 15, 2022. She apparently attended [employer] and then drove home around 1 PM and was driving erratically. Her neighbors drove her home and then she was brought to the emergency room. CT scan of the brain was negative for acute changes she was sent to [facility] with CT angiogram of the head [...] air Intake Visit Reasons: Dizziness/More Frequent Urination Incubator Machine Operator Required: No Is patient in pain?: No Allergies clindamycin Allergy (Verified 01/28/25 13:57) Other hyoscyamine Allergy (Verified 01/28/25 13:57) Other Penicillins Allergy (Verified 01/28/25 13:57) Hives Hfkejbi-QRX-CiZ Reductase Inhibitor (Baumnbx-Cjd-Gvc Reductase Inhibitor) Allergy (Verified 01/28/25 13:57) Pain [...] dr. 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 Normal [facility] Epithelial cells.squamous LM Ql (Urine sed)Ordered By: Deepika Fabian on 01-28-2025 Epithelial cells.squamous LM.HPF (Urine sed) [#/Area] 0 /[HPF] 5-10 [facility] Glucose Ql (U)Ordered By: Franco Fabian on 01-28-2025 Urine Glucose (UA) Normal mg/dl Normal [facility] Ketones Test strip Ql (U)Ord ered By: Deepika Fabian on 01-28-2025 Ketones Ql (U) Negative Negative [facility] Microscopic analysis of urin e for red blood cells (RBC)Ordered By: Deepika Fabian on 01-28-2025 Microscopic analysis of urine for red blood cells (RBC) 0 SEEN /hpf 0-5 [facility] Urine RBC 0 SEEN /hpf 0-5 [facility] Mucus LM Ql (Urine sed)Order ed By: Deepika Fabian on 01-28-2025 Mucus Ql (Urine sed) 0 SEEN /hpf [facility] Nitrite Test strip Ql (U)Ord ered By: Deepika Fabian on 01-28-2025 Nitrite Ql (U) Negative Negative [facility] Protein Test strip Ql (U)Ord ered By: Deepika Fabian on 01-28-2025 Protein Ql (U) Negative Negative [facility] Squamous epithelial cells de tection in urine sediment by light microscopyOrdered By: Deepika Fabian on 01-28-2025 Epithelial cells.squamous LM Ql (Urine sed) 0-5 SEEN /hpf 5-10 [facility] Urinalysis, Completeon 01-28 BACTERIA 0 SEEN Normal None Seen [facility] Comment on above: Order Comment: Comme nts: NPO at [place] prior to lipid panel Performed By: #### L 501.9520, L500.4100, L500.2500, L100.0100 #### [facility] [address] [place], [address] Mucus Ql (Urine sed) 0 SEEN Normal [facility] Comment on above: Order Comment: Comme nts: NPO at [place] prior to lipid panel Performed By: #### L 501.9520, L500.4100, L500.2500, L100.0100 #### [facility] [address] [place], [address] RBC 0 SEEN Normal 0-5 [facility] Comment on above: Order Comment: Comme nts: NPO at [place] prior to lipid panel Performed By: #### L 501.9520, L500.4100, L500.2500, L100.0100 #### [facility] [address] [place], [address] WBC 0 SEEN Normal 0-5 [facility] Comment on above: Order Comment: Comme nts: NPO at [place] prior to lipid panel Performed By: #### L 501.9520, L500.4100, L500.2500, L100.0100 #### [facility] [address] [place], [address] Urine blood detectionOrdered By: Deepika Fabian on 01-28-2025 Urine Occult Blood Negative Negative [facility] Urine clarityOrdered By: Ray Fabian on 01-28-2025 Clarity (U) Clear Clear [facility] Urine color determinationOrd ered By: Deepika Fabian on 01-28-2025 Color (U) Yellow Yellow [facility] Urine cultureOrdered By: Ray Fabian on 01-28-2025 Bacteria identified Cx Nom (U) Mixed Gram Pos & Gram Neg Org Abnormal [facility] Urine glucose detectionOrder ed By: Deepika Fabian on 01-28-2025 Glucose Ql (U) Normal mg/dl Normal [facility] Urine leukocyte esterase det ection by dipstickOrdered By: Deepika Fabian on 01-28-2025 Leukocyte esterase Test strip Ql (U) Negative Negative [facility] Urine pHOrdered By: Deepika morrow on 01-28-2025 pH (U) 8.0 [pH] 5.0 - 8.0 [facility] Urine sediment bacteria coun t by microscopy (number/high power field)Ordered By: Deepika Fabian on 01-28-2025 Bacteria LM.HPF (Urine sed) [#/Area] 0 /[HPF] None Seen [facility] Urine specific gravity measu rementOrdered By: Deepika Fabian on 01-28-2025 Specific gravity (U) [Rel density] 1.010 1.002-1.03 0 [facility] Urine urobilinogen measureme ntOrdered By: Deepika Fabian on 01-28-2025 Urobilinogen Ql (U) Normal mg/dl Normal [facility] Urobilinogen Ql (U)Ordered B y: Deepika Caren on 01-28-2025 Urine Urobilinogen Normal mg/dl Normal [facility] White blood cell countOrdere d By: Deepika Fabian on 01-28-2025 Urine WBC 0 SEEN /hpf 0-5 [facility] White blood cell count 0 SEEN /hpf 0-5 [facility] Internal Medicine Office Vis iton 01-27-2025 Internal Medicine Office Visit [facility] [address] [place], [place] [address] OFFICE VISIT Date of Service: 01/28/25 MR#: [id number] Acct: [id number] Name: DEA MERRITT Rep #: [id number] : 1935 Provider: Dr. Deepika goff MD Age/Sex: 89/F Location: [facility] Status: Signed Intake Vital Signs 11/13/24 15:20 01/28/25 07:43 01/28/25 10:12 Height 5 ft 5 ft 5 ft Weight: 107 lb BMI 20.9 BP 120/80 Blood Pressure Location Lt brachial Position Sitting Respiration 16 Pulse 66 Pulse Source Monitor Temp 97.9 F Temp Source Temporal Pulse Oximetry (%) 97 Oxygen Delivery Method room air Intake Visit Reasons: FREQUENT URINATION/DIZZINESS Chief Complaint: Incubator Machine Operator Required: No Accompanied by: Daughter Allergies clindamycin Allergy (Verified 01/28/25 09:59) Other hyoscyamine Allergy (Verified 01/28/25 09:59) Other Penicillins Allergy (Verified 01/28/25 09:59) Hives Mnugsgl-HNI-JfE Reductase Inhibitor (Vjiocna-Jna-Frs Reductase Inhibitor) Allergy (Verified 01/28/25 09:59) Pain [...] sure it is okay to restart it. 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 Normal [facility] Cardiology Visit Reporton Cardiology Visit Report [facility] [place] [address] OFFICE VISIT Date of Service: 11/13/24 MR#: [id number] Acct: [id number] Name: DEA MERRITT Rep #: [id number] : 1935 Provider: GINA Guevara Age/Sex: 89/F Location: [facility] Status: Signed HPI HPI History of Present Illness Details: Dea Merritt is an 89-year-old lady with a history of hypertension hyperlipidemia intolerant of any statins and gastroesophageal reflux disease. She presented to [facility] with left facial droop and confusion on February 15, 2022. She apparently attended [employer] and then drove home around 1 PM and was driving erratically. Her neighbors drove her home and then she was brought to the emergency room. CT scan of the brain was negative for acute changes she was sent to [facility] with CT angiogram of the head [...] 95 Intake Visit Reasons: 1 Y FU Incubator Machine Operator Required: No Is patient in pain?: No Allergies clindamycin Allergy (Verified 11/13/24 15:18) Other hyoscyamine Allergy (Verified 11/13/24 15:18) Other Penicillins Allergy (Verified 11/13/24 15:18) Hives Rdcxnpy-UVJ-LnL Reductase Inhibitor (Afrjrbv-Jdd-Tap Reductase Inhibitor) Allergy (Verified 11/13/24 15:18) Pain [...] Note: no medication list, states no changes PFSH Medical History Cellulitis of mid back [...] none 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 Normal [facility] Internal Medicine Office Vis iton 11-12-2024 Internal Medicine Office Visit [facility] [address] [place], [place] [address] OFFICE VISIT Date of Service: 11/13/24 MR#: [id number] Acct: [id number] Name: DEA MERRITT Rep #: [id number] : 1935 Provider: Dr. Deepika goff MD Age/Sex: 89/F Location: [facility] Status: Signed Intake Vital Signs 08/05/24 10:26 11/13/24 09:58 Height 5 ft 5 ft Weight: 111 lb BMI 21.7 BP 104/58 L Blood Pressure Location Rt brachial Position Sitting Respiration 16 Pulse 60 Pulse Source Palpation Temp 96.3 F L Temp Source Temporal Intake Visit Reasons: 4 M FU Chief Complaint: 3 M Fu Incubator Machine Operator Required: No Accompanied by: Self Is patient in pain?: No Allergies clindamycin Allergy (Verified 11/13/24 09:51) Other hyoscyamine Allergy (Verified 11/13/24 09:51) Other Penicillins Allergy (Verified 11/13/24 09:51) Hives Sjnepbf-VFH-PxT Reductase Inhibitor (Ecvztii-Lut-Quj Reductase Inhibitor) Allergy (Verified 11/13/24 09:51) Pain [...] Nurse's Note: working with chiropractor on excercises [facility] Medical History Cellulitis of mid back [...] none 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 Normal [facility] Absolute lymphocyte countOrd ered By: Jin Valentinoaarti on 09-29-2023 Lymphocytes Auto (Unsp spec) [#/Vol] 2.63 10*3/uL 0.83-4.51 [facility] Basophil percentageOrdered B y: Jni Gibson on 09-29-2023 Basophils/100 WBC (Bld) 1.2 % 0-1 [facility] Chloride [Moles/Vol] 106 mmol/L 98-107 [facility] Eosinophils/100 WBC (Bld) 4.8 % 0-5 [facility] Glucose [Mass/Vol] 105 mg/dL 74-106 [facility] Comment on above: Fasting Glucose resu lt from 100 to 125 mg/dL suggests IMPAIRED HOMEOSTASIS per A.D.A. criteria. Neutrophils (Bld) [#/Vol] 5.7 10*3/uL 2.0-7.7 [facility] Neutrophils/100 WBC (Bld) 58.7 % 47-70 [facility] Potassium [Moles/Vol] 4.0 mmol/L 3.5-5.1 [facility] Sodium [Moles/Vol] 140 mmol/L 136-145 [facility] WBC (Bld) [#/Vol] 9.7 10*3/uL 4.4-11.0 [facility] Blood erythrocytes count (nu mber/volume)Ordered By: Jin Gibson on 09-29-2023 RBC (Bld) [#/Vol] 4.34 10*6/uL 4.2-5.4 [facility] Blood hemoglobin measurement (mass/volume)Ordered By: Jin Gibson on 09-29-2023 Hemoglobin (Bld) [Mass/Vol] 13.6 g/dL 12.0-15. 0 [facility] Blood lymphocytes/100 leukoc ytesOrdered By: Jin Gibson on 09-29-2023 Lymphocytes/100 WBC (Bld) 27.2 % 19-41 [facility] Blood monocytes/100 leukocyt esOrdered By: Jin Gibson on 09-29-2023 Monocytes/100 WBC (Bld) 7.7 % 0-10 [facility] Blood platelet mean volumeOr dered By: Jin Gibson on 09-29-2023 Platelet mean volume (Bld) [Entitic vol] 10.6 fL 6.2-12.0 [facility] Determination of erythrocyte mean corpuscular volume (MCV)Ordered By: Jin Gibson on 09-29-2023 MCV (RBC) [Entitic vol] 99.8 fL 81-99 [facility] Hematocrit Auto (Bld) [Volum e fraction]Ordered By: Jin Gibson on 09-29-2023 Hematocrit (Bld) [Volume fraction] 43.3 % 37-47 [facility] INR in Blood by Coagulation assayOrdered By: Jin Gibson on 09-29-2023 INR Coag (Bld) [Relative time] 2.1 {INR} [facility] Laboratory - Chemistry and C hemistry - challengeOrdered By: Jin Gibson on 09-29-2023 CO2 [Moles/Vol] 29.0 mmol/L 21.0-32.0 [facility] Urea nitrogen/Creatinine [Mass ratio] 17.6 mg/mg 10-20 [facility] Laboratory - CoagulationOrde red By: Jin Gibson on 09-29-2023 aPTT Coag (Bld) [Time] 33.2 s 24.1-36.2 [facility] PT Coag (PPP) [Time] 24.2 s 11.7-14.9 [facility] Laboratory - Hematology and Cell countsOrdered By: Jin Gibson on 09-29-2023 Erythrocyte distribution width (RBC) [Entitic vol] 45.9 fL 35.1-43.9 [facility] Erythrocyte distribution width (RBC) [Ratio] 12.5 % 11.6-14.6 [facility] Immature granulocytes/100 WBC (Bld) 0.400 % 0.0-0.9 [facility] Comment on above: IG% - Immature Granu locytes (promyelocytes, myelocytes and metamyelocytes) > 1% indicates that a LEFT SHIFT is Present. MCH (RBC) [Entitic mass] 31.3 pg 27.0-32.0 [facility] Nucleated RBC/100 WBC (Bld) [Ratio] 0 % 0-5 [facility] MCHC Auto (RBC) [Mass/Vol]Or dered By: Jin Gibson on 09-29-2023 MCHC (RBC) [Mass/Vol] 31.4 g/dL 32-36 [facility] No Panel InformationOrdered By: Jin Gibson on 09-29-2023 Troponin I High Sensitivity 8 pg/mL 3.0-54.0 [facility] Comment on above: Please Note: New Sherry t Units and Gender Specific Reference Ranges. For more information see Policy Stat Procedure Atkins High Sensitivity Troponin (TNIH) and attachments. Estimated Creatinine Clearance Calc 30.47 ml/min [facility] Estimated GFR (MDRD) Amer 96 mL/min >60 [facility] Comment on above: GFR Calc Estimated GFR (MDRD) Non-Af Amer 80 mL/min >60 [facility] Comment on above: Non- GFR Calc Platelets bldOrdered By: Isadora Gibson on 09-29-2023 Platelets (Bld) [#/Vol] 417 10*3/uL 150-450 [facility] Serum or plasma calcium alissa urement (mass/volume)Ordered By: Jin Gibson on 09-29-2023 Calcium [Mass/Vol] 9.0 mg/dL 8.5-10.1 [facility] Serum or plasma creatinine m easurement (mass/volume)Ordered By: Jin Gibson on 09-29-2023 Creatinine [Mass/Vol] 0.74 mg/dL 0.55-1.02 [facility] Comment on above: The validity of the calculated GFR & GFRAA in patients over 70 years has not been determined. Clinical correlation is essential. Serum or plasma urea nitroge n measurement (mass/volume)Ordered By: Jin Gibson on 09-29-2023 Urea nitrogen [Mass/Vol] 13 mg/dL 7-18 [facility] Thin prep Papanicolaou smear with manual screeningOrdered By: Jin Gibson on 09-29-2023 Thin prep Papanicolaou smear with manual screening 5 5-15 [facility] No Panel Informationon 09-13 Influenza Types A,B Rapid (Clinic) Negative [facility] Basophil percentageOrdered B y: Deepika Fabian on 07-10-2023 Basophil percentage 0-5 SEEN /hpf 0-5 [facility] Bilirubin Test strip Ql (U)O rdered By: Deepika Fabian on 07-10-2023 Bilirubin Ql (U) Negative Negative [facility] Culture, urineOrdered By: Franco Fabian on 07-10-2023 Bacteria identified Cx Nom (U) Culture exhibits no growth. [facility] Ketones Test strip Ql (U)Ord ered By: Deepika Fabian on 07-10-2023 Ketones Ql (U) Negative Negative [facility] Mucus LM Ql (Urine sed)Order ed By: Deepika Fabian on 07-10-2023 Mucus Ql (Urine sed) 0 SEEN /hpf [facility] Nitrite Test strip Ql (U)Ord ered By: Deepika Fabian on 07-10-2023 Nitrite Ql (U) Negative Negative [facility] Protein Test strip Ql (U)Ord ered By: Deepika Fabian on 07-10-2023 Protein Ql (U) Negative Negative [facility] Squamous epithelial cells de tection in urine sediment by light microscopyOrdered By: Deepika Fabian on 07-10-2023 Epithelial cells.squamous LM Ql (Urine sed) 0 SEEN /hpf 5-10 [facility] Urine blood detectionOrdered By: Deepika Fabian on 07-10-2023 RBC Ql (U) 10 /ul Negative [facility] RBC Ql (U) 0 SEEN /hpf 0-5 [facility] Urine clarityOrdered By: Ray Fabian on 07-10-2023 Clarity (U) Clear Clear [facility] Urine color determinationOrd ered By: Deepika Fabian on 07-10-2023 Color (U) Yellow Yellow [facility] Urine glucose detectionOrder ed By: Deepika Fabian on 07-10-2023 Glucose Ql (U) Normal mg/dl Normal [facility] Urine leukocyte esterase det ection by dipstickOrdered By: Deepika Fabian on 07-10-2023 Leukocyte esterase Test strip Ql (U) 25 /ul Negative [facility] Urine pHOrdered By: Deepika morrow on 07-10-2023 pH (U) 6.0 [pH] 5.0 - 8.0 [facility] Urine sediment bacteria coun t by microscopy (number/high power field)Ordered By: Deepika Fabian on 07-10-2023 Bacteria LM.HPF (Urine sed) [#/Area] 0 /[HPF] None Seen [facility] Urine specific gravity measu rementOrdered By: Deepika Fabian on 07-10-2023 Specific gravity (U) [Rel density] 1.010 1.002-1.03 0 [facility] Urobilinogen Auto test strip Ql (U)Ordered By: Deepika Fabian on 07-10-2023 Urobilinogen Ql (U) Normal mg/dl Normal [facility] Culture, urineOrdered By: Kathryn Cheng on 06-28-2023 Bacteria identified Cx Nom (U) Presumptive E. coli [facility] Basophil percentageOrdered B y: Terrell Cheng on 06-27-2023 Basophil percentage >100 SEEN /hpf 0-5 [facility] Bilirubin Test strip Ql (U)O rdered By: Terrell Cheng on 06-27-2023 Bilirubin Ql (U) Negative Negative [facility] Ketones Test strip Ql (U)Ord ered By: Terrell Cheng on 06-27-2023 Ketones Ql (U) Negative Negative [facility] Laboratory - Chemistry and C hemistry - challengeon 06-27-2023 Bilirubin Ql (U) Negative [facility] Glucose Ql (U) Negative [facility] Ketones Ql (U) Negative [facility] pH (U) 8.0 [pH] [facility] Specific gravity (U) [Rel density] 1.020 [facility] Urobilinogen (U) [Mass/Vol] 2 mg/dL [facility] Laboratory - Hematology and Cell countson 06-27-2023 Hemoglobin Ql (U) Trace [facility] Laboratory - Specimen inform ationon 06-27-2023 Clarity (U) Cloudy [facility] Color (U) Yellow [facility] Laboratory - Urinalysison Nitrite Ql (U) Negative [facility] Protein Ql (U) Negative [facility] Mucus LM Ql (Urine sed)Order ed By: Terrell Cheng on 06-27-2023 Mucus Ql (Urine sed) 0 SEEN /hpf [facility] Nitrite Test strip Ql (U)Ord ered By: Terrell Cheng on 06-27-2023 Nitrite Ql (U) Negative Negative [facility] No Panel Informationon 06-27 Urine Leukocytes Positive [facility] Urine Non-Hemolyzed Blood [facility] Protein Test strip Ql (U)Ord ered By: Terrell Cheng on 06-27-2023 Protein Ql (U) 15 mg/dl Negative [facility] Squamous epithelial cells de tection in urine sediment by light microscopyOrdered By: Terrell Cheng on 06-27-2023 Epithelial cells.squamous LM Ql (Urine sed) 0-5 SEEN /hpf 5-10 [facility] Urine blood detectionOrdered By: Terrell Cheng on 06-27-2023 RBC Ql (U) 25 /ul Negative [facility] RBC Ql (U) 0-5 SEEN /hpf 0-5 [facility] Urine clarityOrdered By: Arnoldo Cheng on 06-27-2023 Clarity (U) Sl. Cloudy Clear [facility] Urine color determinationOrd ered By: Terrell Cheng on 06-27-2023 Color (U) Yellow Yellow [facility] Urine glucose detectionOrder ed By: Terrell Cheng on 06-27-2023 Glucose Ql (U) Normal mg/dl Normal [facility] Urine leukocyte esterase det ection by dipstickOrdered By: Terrell Cheng on 06-27-2023 Leukocyte esterase Test strip Ql (U) 500 /ul Negative [facility] Urine pHOrdered By: Terrell weir on 06-27-2023 pH (U) 8.0 [pH] 5.0 - 8.0 [facility] Urine sediment bacteria coun t by microscopy (number/high power field)Ordered By: Terrell Cheng on 06-27-2023 Bacteria LM.HPF (Urine sed) [#/Area] RARE /hpf None Seen [facility] Urine specific gravity measu rementOrdered By: Terrell Cheng on 06-27-2023 Specific gravity (U) [Rel density] 1.010 1.002-1.03 0 [facility] Urobilinogen Auto test strip Ql (U)Ordered By: Terrell Cheng on 06-27-2023 Urobilinogen Ql (U) Normal mg/dl Normal [facility] Culture, urineOrdered By: Dr Luciano Fabian on 03-17-2023 Bacteria identified Cx Nom (U) Presumptive E. coli [facility] Basophil percentageOrdered B y: Dr. Fabian on 03-15-2023 Basophil percentage 25-50 SEEN /hpf 0-5 [facility] Bilirubin Test strip Ql (U)O rdered By: Dr. Fabian on 03-15-2023 Bilirubin Ql (U) Negative Negative [facility] Culture, urineOrdered By: Franco Fabian on 03-15-2023 Bacteria identified Cx Nom (U) Presumptive E. coli [facility] Ketones Test strip Ql (U)Ord ered By: Dr. Fabian on 03-15-2023 Ketones Ql (U) Negative Negative [facility] Mucus LM Ql (Urine sed)Order ed By: Dr. Fabian on 03-15-2023 Mucus Ql (Urine sed) 0 SEEN /hpf [facility] Nitrite Test strip Ql (U)Ord ered By: Dr. Fabian on 03-15-2023 Nitrite Ql (U) Positive Negative [facility] Protein Test strip Ql (U)Ord ered By: Dr. Fabian on 03-15-2023 Protein Ql (U) 15 mg/dl Negative [facility] Squamous epithelial cells de tection in urine sediment by light microscopyOrdered By: Dr. Fabian on 03-15-2023 Epithelial cells.squamous LM Ql (Urine sed) 0 SEEN /hpf 5-10 [facility] Urine blood detectionOrdered By: Dr. Fabian on 03-15-2023 RBC Ql (U) 25 /ul Negative [facility] RBC Ql (U) 0-5 SEEN /hpf 0-5 [facility] Urine clarityOrdered By: Dr. Fabian on 03-15-2023 Clarity (U) Sl. Cloudy Clear [facility] Urine color determinationOrd ered By: Dr. Fabian on 03-15-2023 Color (U) Yellow Yellow [facility] Urine glucose detectionOrder ed By: Dr. Fabian on 03-15-2023 Glucose Ql (U) Normal mg/dl Normal [facility] Urine leukocyte esterase det ection by dipstickOrdered By: Dr. Fabian on 03-15-2023 Leukocyte esterase Test strip Ql (U) 500 /ul Negative [facility] Urine pHOrdered By: Dr. Lupillo alexander on 03-15-2023 pH (U) 8.0 [pH] 5.0 - 8.0 [facility] Urine sediment bacteria coun t by microscopy (number/high power field)Ordered By: Dr. Fabian on 03-15-2023 Bacteria LM.HPF (Urine sed) [#/Area] 1 /[HPF] None Seen [facility] Urine specific gravity measu rementOrdered By: Dr. Fabian on 03-15-2023 Specific gravity (U) [Rel density] 1.010 1.002-1.03 0 [facility] Urobilinogen Auto test strip Ql (U)Ordered By: Dr. Fabian on 03-15-2023 Urobilinogen Ql (U) Normal mg/dl Normal [facility] Absolute lymphocyte countOrd ered By: Grace Luna on 03-01-2023 Lymphocytes Auto (Unsp spec) [#/Vol] 2.28 10*3/uL 0.83-4.51 [facility] Basophil percentageOrdered B y: Grace Luna on 03-01-2023 Basophils/100 WBC (Bld) 0.9 % 0-1 [facility] Chloride [Moles/Vol] 107 mmol/L 98-107 [facility] Eosinophils/100 WBC (Bld) 3.8 % 0-5 [facility] Glucose [Mass/Vol] 97 mg/dL 74-106 [facility] Neutrophils (Bld) [#/Vol] 6.3 10*3/uL 2.0-7.7 [facility] Neutrophils/100 WBC (Bld) 63.4 % 47-70 [facility] Potassium [Moles/Vol] 3.8 mmol/L 3.5-5.1 [facility] Sodium [Moles/Vol] 140 mmol/L 136-145 [facility] WBC (Bld) [#/Vol] 10.0 10*3/uL 4.4-11.0 [facility] Blood erythrocytes count (nu mber/volume)Ordered By: Grace Luna on 03-01-2023 RBC (Bld) [#/Vol] 3.58 10*6/uL 4.2-5.4 [facility] Blood hemoglobin measurement (mass/volume)Ordered By: Grace Luna on 03-01-2023 Hemoglobin (Bld) [Mass/Vol] 10.9 g/dL 12.0-15. 0 [facility] Blood lymphocytes/100 leukoc ytesOrdered By: Grace Luna on 03-01-2023 Lymphocytes/100 WBC (Bld) 22.9 % 19-41 [facility] Blood monocytes/100 leukocyt esOrdered By: Grace Luna on 03-01-2023 Monocytes/100 WBC (Bld) 8.5 % 0-10 [facility] Blood platelet mean volumeOr dered By: Grace Luna on 03-01-2023 Platelet mean volume (Bld) [Entitic vol] 9.8 fL 6.2-12.0 [facility] Determination of erythrocyte mean corpuscular volume (MCV)Ordered By: Grace Luna on 03-01-2023 MCV (RBC) [Entitic vol] 98.6 fL 81-99 [facility] Hematocrit Auto (Bld) [Volum e fraction]Ordered By: Grace Luna on 03-01-2023 Hematocrit (Bld) [Volume fraction] 35.3 % 37-47 [facility] Iron measurement (mass/mass) Ordered By: Dr. Fabian on 03-01-2023 Iron (Unsp spec) [Mass/Mass] 27 ug/dL 50-170 [facility] Laboratory - Chemistry and C hemistry - challengeOrdered By: Dr. Fabian on 03-01-2023 Magnesium [Mass/Vol] 2.1 mg/dL 1.6-2.6 [facility] Laboratory - Chemistry and C hemistry - challengeOrdered By: Grace Luna on 03-01-2023 CO2 [Moles/Vol] 26.0 mmol/L 21.0-32.0 [facility] Urea nitrogen/Creatinine [Mass ratio] 25.9 mg/mg 10-20 [facility] Laboratory - Hematology and Cell countsOrdered By: Grace Luna on 03-01-2023 Erythrocyte distribution width (RBC) [Entitic vol] 45.0 fL 35.1-43.9 [facility] Erythrocyte distribution width (RBC) [Ratio] 12.4 % 11.6-14.6 [facility] Immature granulocytes/100 WBC (Bld) 0.500 % 0.0-0.9 [facility] Comment on above: IG% - Immature Granu locytes (promyelocytes, myelocytes and metamyelocytes) > 1% indicates that a LEFT SHIFT is Present. MCH (RBC) [Entitic mass] 30.4 pg 27.0-32.0 [facility] Nucleated RBC/100 WBC (Bld) [Ratio] 0 % 0-5 [facility] MCHC Auto (RBC) [Mass/Vol]Or dered By: Grace Lnua on 03-01-2023 MCHC (RBC) [Mass/Vol] 30.9 g/dL 32-36 [facility] No Panel InformationOrdered By: Dr. Fabian on 03-01-2023 Total Iron Binding Capacity 259 ug/dL 250-450 [facility] Vitamin D 25-Hydroxy 34.0 ng/mL [facility] Comment on above: Vitamin D 25(OH) Sta tus Range Deficiency <20 ng/mL (50nmol/L) Insufficiency 20 - 30 ng/mL (50 - 75 nmol/L) Sufficiency 30 - 100 ng/mL (75 - 250 nmol/L) Toxicity >100 ng/mL (>250 nmol/L) No Panel InformationOrdered By: Grace Luna on 03-01-2023 Estimated GFR (MDRD) Amer 110 mL/min >60 [facility] Comment on above: GFR Calc Estimated GFR (MDRD) Non-Af Amer 91 mL/min >60 [facility] Comment on above: Non- GFR Calc Platelets bldOrdered By: Max Luna on 03-01-2023 Platelets (Bld) [#/Vol] 424 10*3/uL 150-450 [facility] Serum or plasma calcium alissa urement (mass/volume)Ordered By: Grace Luna on 03-01-2023 Calcium [Mass/Vol] 9.0 mg/dL 8.5-10.1 [facility] Serum or plasma creatinine m easurement (mass/volume)Ordered By: Grace Luna on 03-01-2023 Creatinine [Mass/Vol] 0.66 mg/dL 0.55-1.02 [facility] Comment on above: The validity of the calculated GFR & GFRAA in patients over 70 years has not been determined. Clinical correlation is essential. Serum or plasma ferritin neil surement (mass/volume)Ordered By: Dr. Fabian on 03-01-2023 Ferritin [Mass/Vol] 92 ng/mL 8-252 [facility] Serum or plasma iron saturat ion measurement (mass fraction)Ordered By: Dr. Fabian on 03-01-2023 Iron saturation [Mass fraction] 10.4 % 15.0-55.0 [facility] Serum or plasma urea nitroge n measurement (mass/volume)Ordered By: mary Luna on 03-01-2023 Urea nitrogen [Mass/Vol] 17 mg/dL 7-18 [facility] Thin prep Papanicolaou smear with manual screeningOrdered By: Grace Luna on 03-01-2023 Thin prep Papanicolaou smear with manual screening 7 5-15 [facility] Absolute lymphocyte countOrd ered By: Allison Tomlinson on 02-15-2023 Lymphocytes Auto (Unsp spec) [#/Vol] 3.01 10*3/uL 0.83-4.51 [facility] Basophil percentageOrdered B y: Allison Tomlinson on 02-15-2023 Basophils/100 WBC (Bld) 0.3 % 0-1 [facility] Chloride [Moles/Vol] 106 mmol/L 98-107 [facility] Eosinophils/100 WBC (Bld) 1.6 % 0-5 [facility] Glucose [Mass/Vol] 98 mg/dL 74-106 [facility] Neutrophils (Bld) [#/Vol] 10.8 10*3/uL 2.0-7.7 [facility] Neutrophils/100 WBC (Bld) 70.1 % 47-70 [facility] Potassium [Moles/Vol] 3.5 mmol/L 3.5-5.1 [facility] Sodium [Moles/Vol] 139 mmol/L 136-145 [facility] WBC (Bld) [#/Vol] 15.3 10*3/uL 4.4-11.0 [facility] Blood erythrocytes count (nu mber/volume)Ordered By: Allison Tomlinson on 02-15-2023 RBC (Bld) [#/Vol] 3.58 10*6/uL 4.2-5.4 [facility] Blood hemoglobin measurement (mass/volume)Ordered By: Allison Tomlinson on 02-15-2023 Hemoglobin (Bld) [Mass/Vol] 11.1 g/dL 12.0-15. 0 [facility] Blood lymphocytes/100 leukoc ytesOrdered By: Allison Tomlinson on 02-15-2023 Lymphocytes/100 WBC (Bld) 19.6 % 19-41 [facility] Blood monocytes/100 leukocyt esOrdered By: Allison Tomlinson on 02-15-2023 Monocytes/100 WBC (Bld) 7.4 % 0-10 [facility] Blood platelet mean volumeOr dered By: Allison Tomlinson on 02-15-2023 Platelet mean volume (Bld) [Entitic vol] 8.9 fL 6.2-12.0 [facility] Determination of erythrocyte mean corpuscular volume (MCV)Ordered By: Allison Tomlinson on 02-15-2023 MCV (RBC) [Entitic vol] 96.6 fL 81-99 [facility] Hematocrit Auto (Bld) [Volum e fraction]Ordered By: Allison Tomlinson on 02-15-2023 Hematocrit (Bld) [Volume fraction] 34.6 % 37-47 [facility] Laboratory - Chemistry and C hemistry - challengeOrdered By: Allison Tomlinson on 02-15-2023 CO2 [Moles/Vol] 26.0 mmol/L 21.0-32.0 [facility] Urea nitrogen/Creatinine [Mass ratio] 23.7 mg/mg 10-20 [facility] Laboratory - Hematology and Cell countsOrdered By: Allison Tomlinson on 02-15-2023 Erythrocyte distribution width (RBC) [Entitic vol] 46.0 fL 35.1-43.9 [facility] Erythrocyte distribution width (RBC) [Ratio] 12.8 % 11.6-14.6 [facility] Immature granulocytes/100 WBC (Bld) 1.000 % 0.0-0.9 [facility] Comment on above: IG% - Immature Granu locytes (promyelocytes, myelocytes and metamyelocytes) > 1% indicates that a LEFT SHIFT is Present. MCH (RBC) [Entitic mass] 31.0 pg 27.0-32.0 [facility] Nucleated RBC/100 WBC (Bld) [Ratio] 0 % 0-5 [facility] MCHC Auto (RBC) [Mass/Vol]Or dered By: Allison Tomlinson on 02-15-2023 MCHC (RBC) [Mass/Vol] 32.1 g/dL 32-36 [facility] No Panel InformationOrdered By: Allison Tomlinson on 02-15-2023 Estimated GFR (MDRD) Amer 93 mL/min >60 [facility] Comment on above: GFR Calc Estimated GFR (MDRD) Non-Af Amer 77 mL/min >60 [facility] Comment on above: Non- GFR Calc Platelets bldOrdered By: Cameron Tomlinson on 02-15-2023 Platelets (Bld) [#/Vol] 522 10*3/uL 150-450 [facility] Serum or plasma calcium alissa urement (mass/volume)Ordered By: Allison Tomlinson on 02-15-2023 Calcium [Mass/Vol] 8.7 mg/dL 8.5-10.1 [facility] Serum or plasma creatinine m easurement (mass/volume)Ordered By: Allison Tomlinson on 02-15-2023 Creatinine [Mass/Vol] 0.76 mg/dL 0.55-1.02 [facility] Comment on above: The validity of the calculated GFR & GFRAA in patients over 70 years has not been determined. Clinical correlation is essential. Serum or plasma urea nitroge n measurement (mass/volume)Ordered By: Allison Tomlinson on 02-15-2023 Urea nitrogen [Mass/Vol] 18 mg/dL 7-18 [facility] Thin prep Papanicolaou smear with manual screeningOrdered By: Allison Tomlinson on 02-15-2023 Thin prep Papanicolaou smear with manual screening 7 5-15 [facility] COVID-19 virus antigen assay Ordered By: Jody Moffett on 02-13-2023 SARS-CoV-2 (COVID-19) Ag IA.rapid Ql (Resp) [facility] COVID-19 virus antigen assay Ordered By: Dr. Moffett on 02-13-2023 SARS-CoV-2 (COVID-19) Ag IA.rapid Ql (Resp) [facility] Absolute lymphocyte countOrd ered By: Dr. Reynolds on 02-12-2023 Lymphocytes Auto (Unsp spec) [#/Vol] 2.21 10*3/uL 0.83-4.51 [facility] Basophil percentageOrdered B y: Dr. Moffett on 02-12-2023 Basophil percentage 2.5 mg/dL 2.5-4.9 [facility] Bilirubin [Mass/Vol] 0.30 mg/dL 0.20-1.00 [facility] Comment on above: For patients on eltr ombopag therapy, use of Dimension Atkins TBIL is not recommended. Protein [Mass/Vol] 6.0 g/dL 6.4-8.2 [facility] Basophil percentageOrdered B y: Dr. Reynolds on 02-12-2023 Basophils/100 WBC (Bld) 0.3 % 0-1 [facility] Chloride [Moles/Vol] 108 mmol/L 98-107 [facility] Eosinophils/100 WBC (Bld) 1.0 % 0-5 [facility] Glucose [Mass/Vol] 106 mg/dL 74-106 [facility] Comment on above: Fasting Glucose resu lt from 100 to 125 mg/dL suggests IMPAIRED HOMEOSTASIS per A.D.A. criteria. Neutrophils (Bld) [#/Vol] 9.2 10*3/uL 2.0-7.7 [facility] Neutrophils/100 WBC (Bld) 72.9 % 47-70 [facility] Potassium [Moles/Vol] 4.2 mmol/L 3.5-5.1 [facility] Sodium [Moles/Vol] 138 mmol/L 136-145 [facility] WBC (Bld) [#/Vol] 12.7 10*3/uL 4.4-11.0 [facility] Blood erythrocytes count (nu mber/volume)Ordered By: Dr. Reynolds on 02-12-2023 RBC (Bld) [#/Vol] 3.43 10*6/uL 4.2-5.4 [facility] Blood hemoglobin measurement (mass/volume)Ordered By: Dr. Reynolds on 02-12-2023 Hemoglobin (Bld) [Mass/Vol] 10.9 g/dL 12.0-15. 0 [facility] Blood lymphocytes/100 leukoc ytesOrdered By: Dr. Reynolds on 02-12-2023 Lymphocytes/100 WBC (Bld) 17.4 % 19-41 [facility] Blood monocytes/100 leukocyt esOrdered By: Dr. Reynolds on 02-12-2023 Monocytes/100 WBC (Bld) 7.8 % 0-10 [facility] Blood platelet mean volumeOr dered By: Dr. Reynolds on 02-12-2023 Platelet mean volume (Bld) [Entitic vol] 9.5 fL 6.2-12.0 [facility] Determination of erythrocyte mean corpuscular volume (MCV)Ordered By: Dr. Reynolds on 02-12-2023 MCV (RBC) [Entitic vol] 98.0 fL 81-99 [facility] Direct bilirubinOrdered By: Dr. Moffett on 02-12-2023 Bilirubin.direct [Mass/Vol] mg/dL 0.00-0.3 0 [facility] Hematocrit Auto (Bld) [Volum e fraction]Ordered By: Dr. Reynolds on 02-12-2023 Hematocrit (Bld) [Volume fraction] 33.6 % 37-47 [facility] Laboratory - Chemistry and C hemistry - challengeOrdered By: Dr. Moffett on 02-12-2023 ALP [Catalytic activity/Vol] 57 U/L 45-117 [facility] ALT [Catalytic activity/Vol] 15 U/L 13-56 [facility] Free T4 [Mass/Vol] 1.38 ng/dL 0.76-1.46 [facility] Globulin (S) [Mass/Vol] 4.2 g/dL 2.2-4.2 [facility] Magnesium [Mass/Vol] 1.9 mg/dL 1.6-2.6 [facility] Laboratory - Chemistry and C hemistry - challengeOrdered By: Dr. Reynolds on 02-12-2023 CO2 [Moles/Vol] 24.0 mmol/L 21.0-32.0 [facility] Urea nitrogen/Creatinine [Mass ratio] 27.0 mg/mg 10-20 [facility] Laboratory - Hematology and Cell countsOrdered By: Dr. Reynolds on 02-12-2023 Erythrocyte distribution width (RBC) [Entitic vol] 44.9 fL 35.1-43.9 [facility] Erythrocyte distribution width (RBC) [Ratio] 12.7 % 11.6-14.6 [facility] Immature granulocytes/100 WBC (Bld) 0.600 % 0.0-0.9 [facility] Comment on above: IG% - Immature Granu locytes (promyelocytes, myelocytes and metamyelocytes) > 1% indicates that a LEFT SHIFT is Present. MCH (RBC) [Entitic mass] 31.8 pg 27.0-32.0 [facility] Nucleated RBC/100 WBC (Bld) [Ratio] 0 % 0-5 [facility] MCHC Auto (RBC) [Mass/Vol]Or dered By: Dr. Reynolds on 02-12-2023 MCHC (RBC) [Mass/Vol] 32.4 g/dL 32-36 [facility] No Panel InformationOrdered By: Dr. Reynolds on 02-12-2023 Estimated Creatinine Clearance Calc 31.04 ml/min [facility] Estimated GFR (MDRD) Amer 108 mL/min >60 [facility] Comment on above: GFR Calc Estimated GFR (MDRD) Non-Af Amer 89 mL/min >60 [facility] Comment on above: Non- GFR Calc No Panel InformationOrdered By: Dr. Moffett on 02-12-2023 Thyroid Stimulating Hormone (TSH) 0.86 uIU/mL 0.358-3.74 [facility] Platelets bldOrdered By: Dr. Reynolds on 02-12-2023 Platelets (Bld) [#/Vol] 483 10*3/uL 150-450 [facility] Serum or plasma albumin alissa urement (mass/volume)Ordered By: Dr. Moffett on 02-12-2023 Albumin [Mass/Vol] 1.8 g/dL 3.2-5.0 [facility] Serum or plasma calcium alissa urement (mass/volume)Ordered By: Dr. Reynolds on 02-12-2023 Calcium [Mass/Vol] 8.6 mg/dL 8.5-10.1 [facility] Serum or plasma creatinine m easurement (mass/volume)Ordered By: Dr. Reynolds on 02-12-2023 Creatinine [Mass/Vol] 0.67 mg/dL 0.55-1.02 [facility] Comment on above: The validity of the calculated GFR & GFRAA in patients over 70 years has not been determined. Clinical correlation is essential. Serum or plasma urea nitroge n measurement (mass/volume)Ordered By: Dr. Reynolds on 02-12-2023 Urea nitrogen [Mass/Vol] 18 mg/dL 7-18 [facility] Thin prep Papanicolaou smear with manual screeningOrdered By: Dr. Moffett on 02-12-2023 Thin prep Papanicolaou smear with manual screening 14 U/L 15-37 [facility] Thin prep Papanicolaou smear with manual screeningOrdered By: Dr. Reynolds on 02-12-2023 Thin prep Papanicolaou smear with manual screening 6 5-15 [facility] EP PanelOrdered By: Dr. Kaylee epstein on 02-09-2023 Gastrointestinal pathogens panel HAZEL+probe (Stl) [facility] Basophil percentageOrdered B y: Dr. Cedeno on 02-08-2023 Basophil percentage 5-10 SEEN /hpf 0-5 [facility] Bilirubin Test strip Ql (U)O rdered By: Dr. Cedeno on 02-08-2023 Bilirubin Ql (U) Negative Negative [facility] Ketones Test strip Ql (U)Ord ered By: Dr. Cedeno on 02-08-2023 Ketones Ql (U) 5 mg/dl Negative [facility] Mucus LM Ql (Urine sed)Order ed By: Dr. Cedeno on 02-08-2023 Mucus Ql (Urine sed) 0 SEEN /hpf [facility] Nitrite Test strip Ql (U)Ord ered By: Dr. Cedeno on 02-08-2023 Nitrite Ql (U) Negative Negative [facility] Protein Test strip Ql (U)Ord ered By: Dr. Cedeno on 02-08-2023 Protein Ql (U) 30 mg/dl Negative [facility] Serum or plasma albumin/glob ulin mass ratioOrdered By: Dr. Cedeno on 02-08-2023 Albumin/Globulin [Mass ratio] 0.5 {ratio} 0.9-2.4 [facility] Serum or plasma uric acid me asurement (mass/volume)Ordered By: Dr. Reynolds on 02-08-2023 Urate [Mass/Vol] 4.5 mg/dL 2.6-6.0 [facility] Comment on above: The drugs N-Acetylcy steine and Metamizole may falsely depress this assay. Squamous epithelial cells de tection in urine sediment by light microscopyOrdered By: Dr. Cedeno on 02-08-2023 Epithelial cells.squamous LM Ql (Urine sed) 0-5 SEEN /hpf 5-10 [facility] Stool enteric pathogen panel by probe and target amplification methodOrdered By: Himanshu Reynolds on 02-08-2023 Gastrointestinal pathogens panel HAZEL+probe (Stl) [facility] Urine blood detectionOrdered By: Dr. Cedeno on 02-08-2023 RBC Ql (U) 10 /ul Negative [facility] RBC Ql (U) 0 SEEN /hpf 0-5 [facility] Urine clarityOrdered By: Dr. Cedeno on 02-08-2023 Clarity (U) Clear Clear [facility] Urine color determinationOrd ered By: Dr. Cedeno on 02-08-2023 Color (U) Yellow Yellow [facility] Urine glucose detectionOrder ed By: Dr. Cedeno on 02-08-2023 Glucose Ql (U) Normal mg/dl Normal [facility] Urine leukocyte esterase det ection by dipstickOrdered By: Dr. Cedeno on 02-08-2023 Leukocyte esterase Test strip Ql (U) 100 /ul Negative [facility] Urine pHOrdered By: Dr. Juliann reveles on 02-08-2023 pH (U) 7.0 [pH] 5.0 - 8.0 [facility] Urine sediment bacteria coun t by microscopy (number/high power field)Ordered By: Dr. Cedeno on 02-08-2023 Bacteria LM.HPF (Urine sed) [#/Area] 0 /[HPF] None Seen [facility] Urine specific gravity measu rementOrdered By: Dr. Cedeno on 02-08-2023 Specific gravity (U) [Rel density] 1.010 1.002-1.03 0 [facility] Urobilinogen Auto test strip Ql (U)Ordered By: Dr. Cedeno on 02-08-2023 Urobilinogen Ql (U) Normal mg/dl Normal [facility] Stool lactoferrin detection by immunoassayOrdered By: Jb Wood on 12-12-2022 Lactoferrin IA Ql (Stl) [facility] Clostridium difficile detect ion by polymerase chain reactionOrdered By: Jb Wood on 12-11-2022 C. difficile DNA HAZEL+probe Ql (Unsp spec) [facility] EP PanelOrdered By: Jb Wood on 12-11-2022 Gastrointestinal pathogens panel HAZEL+probe (Stl) [facility] No Panel InformationOrdered By: Jb Wood on 12-10-2022 Stool Calprotectin 526 ug/g 0-120 [facility] Comment on above: Concentration Interp retation Follow-Up<16 - 50 ug/g Normal None>50 -120 ug/g Borderline Re-evaluate in 4-6 weeks >120 ug/g Abnormal Repeat as clinically indicatedPerformed at: [employer] [address] [id number] Director: Mick Bradley PhD, Phone: [phone] at: [employer] [id number] Director: Payam Ervin MD, Phone: [phone] Stool Neutral Fats Normal . [facility] Comment on above: Normal (<60 Droplets /HPF) Stool Pancreatic Elastase 390 >200 [facility] Comment on above: Result Units: ug F[address]um[address] st./g Severe Pancreatic Insufficiency: <100 Moderate Pancreatic Insufficiency: 100 - 200 Normal: >200Performed at: [employer] [id number] Director: Payam Ervin MD, Phone: [phone] Qualitative fecal fat or lip idsOrdered By: Jb Wood on 12-10-2022 Fat Ql (Stl) Normal . [facility] Comment on above: Normal (<100 Droplet s/HPF) Absolute lymphocyte countOrd ered By: Jb Wood on 12-08-2022 Lymphocytes Auto (Unsp spec) [#/Vol] 1.00 10*3/uL 0.83-4.51 [facility] Albumin Elph [Mass/Vol]Order ed By: Jb Wood on 12-08-2022 Albumin [Mass/Vol] 3.2 g/dL 2.9-4.4 [facility] Atypical perinuclear antineu trophil cytoplasmic antibodies measurementOrdered By: Jb Friend on 12-08-2022 Neutrophil cytoplasmic Ab.perinuclear.atypical IF (S) [Titer] <1:20 titer Neg:<1:20 [facility] Comment on above: The atypical pANCA p attern has been observed in asignificant percentage of patients with ulcerative colitis,primary sclerosing cholangitis and autoimmune hepatitis.Performed at: - [facility] [address] [id number] Director: Mick Bradley PhD, Phone: [phone] at: - [facility] [address] [id number] Director: Payam Ervin MD, Phone: [phone] Basophil percentageOrdered B y: Jb Friend on 12-08-2022 Basophil percentage < 0.2 AI 0.0-0.9 [facility] Basophils/100 WBC (Bld) 0.6 % 0-1 [facility] Bilirubin [Mass/Vol] 0.40 mg/dL 0.20-1.00 [facility] Comment on above: For patients on eltr ombopag therapy, use of Dimension Atkins TBIL is not recommended. Chloride [Moles/Vol] 96 mmol/L 98-107 [facility] Eosinophils/100 WBC (Bld) 0.4 % 0-5 [facility] Glucose [Mass/Vol] 119 mg/dL 74-106 [facility] Comment on above: Fasting Glucose resu lt from 100 to 125 mg/dL suggests IMPAIRED HOMEOSTASIS per A.D.A. criteria. LDH [Catalytic activity/Vol] 185 U/L 84-246 [facility] Neutrophils (Bld) [#/Vol] 6.4 10*3/uL 2.0-7.7 [facility] Neutrophils/100 WBC (Bld) 79.3 % 47-70 [facility] Potassium [Moles/Vol] 3.2 mmol/L 3.5-5.1 [facility] Protein [Mass/Vol] 6.8 g/dL 6.4-8.2 [facility] Sodium [Moles/Vol] 135 mmol/L 136-145 [facility] WBC (Bld) [#/Vol] 8.1 10*3/uL 4.4-11.0 [facility] Blood erythrocytes count (nu mber/volume)Ordered By: Jb Wood on 12-08-2022 RBC (Bld) [#/Vol] 4.02 10*6/uL 4.2-5.4 [facility] Blood hemoglobin measurement (mass/volume)Ordered By: Jb Wood on 12-08-2022 Hemoglobin (Bld) [Mass/Vol] 12.3 g/dL 12.0-15. 0 [facility] Blood lymphocytes/100 leukoc ytesOrdered By: Jb Wood on 12-08-2022 Lymphocytes/100 WBC (Bld) 12.4 % 19-41 [facility] Blood monocytes/100 leukocyt esOrdered By: Jb Wood on 12-08-2022 Monocytes/100 WBC (Bld) 6.8 % 0-10 [facility] Blood platelet mean volumeOr dered By: Jb Wood on 12-08-2022 Platelet mean volume (Bld) [Entitic vol] 10.0 fL 6.2-12.0 [facility] Determination of erythrocyte mean corpuscular volume (MCV)Ordered By: Jb Wood on 12-08-2022 MCV (RBC) [Entitic vol] 95.5 fL 81-99 [facility] Erythrocyte sedimentation ra teOrdered By: Jb Wood on 12-08-2022 ESR (Bld) [Velocity] 25 mm/h 0-30 [facility] Hematocrit Auto (Bld) [Volum e fraction]Ordered By: Jb Wood on 12-08-2022 Hematocrit (Bld) [Volume fraction] 38.4 % 37-47 [facility] Interpretation of serum or p lasma protein pattern by immunofixation (narrative resultOrdered By: Jb Wood on 12-08-2022 Protein Fractions Immunofixation Derek [Interp] See comment [facility] Comment on above: Result: Not Observed Laboratory - Chemistry and C hemistry - challengeOrdered By: Jb Wood on 12-08-2022 ALP [Catalytic activity/Vol] 65 U/L 45-117 [facility] ALT [Catalytic activity/Vol] 21 U/L 13-56 [facility] CO2 [Moles/Vol] 30.0 mmol/L 21.0-32.0 [facility] Globulin (S) [Mass/Vol] 3.9 g/dL 2.2-4.2 [facility] Urea nitrogen/Creatinine [Mass ratio] 18.8 mg/mg 10-20 [facility] Laboratory - Hematology and Cell countsOrdered By: Jb Wood on 12-08-2022 Erythrocyte distribution width (RBC) [Entitic vol] 46.3 fL 35.1-43.9 [facility] Erythrocyte distribution width (RBC) [Ratio] 13.2 % 11.6-14.6 [facility] Immature granulocytes/100 WBC (Bld) 0.500 % 0.0-0.9 [facility] Comment on above: IG% - Immature Granu locytes (promyelocytes, myelocytes and metamyelocytes) > 1% indicates that a LEFT SHIFT is Present. MCH (RBC) [Entitic mass] 30.6 pg 27.0-32.0 [facility] Nucleated RBC/100 WBC (Bld) [Ratio] 0 % 0-5 [facility] MCHC Auto (RBC) [Mass/Vol]Or dered By: Jb Wood on 12-08-2022 MCHC (RBC) [Mass/Vol] 32.0 g/dL 32-36 [facility] No Panel InformationOrdered By: Jb Wood on 12-08-2022 Addendum Document Comment . [facility] Comment on above: Protein electrophore sis scan will follow via computer,mail, or medication technician delivery. [employer] B Antibody <0.2 AI 0.0-0.9 [facility] Endomysial IgA Antibody Negative Negative [facility] Estimated GFR (MDRD) Amer 114 mL/min >60 [facility] Comment on above: GFR Calc Estimated GFR (MDRD) Non-Af Amer 94 mL/min >60 [facility] Comment on above: Non- GFR Calc Immunoglobulin E 19 IU/mL 6-495 [facility] Miscellaneous Test See comment [facility] Comment on above: TEST RESULT LIMITSIB [...] developed and its performance characteristics determined by [facility]. It has not been cleared or approved by the Food and Drug Administration. The FDA has determined that such clearance or approval is not necessary.Atypical pANCA Negative Negative Comments Pattern is not suggestive of Inflammatory Bowel Disease TESTING PERFORMED AT [facility]. ORIGINAL REPORT ON FILE IN LAB CONTAINS ADDITIONAL TEST SITE INFORMATION. [employer] Antibody <0.2 AI 0.0-0.9 [facility] Platelets bldOrdered By: Lui Wood on 12-08-2022 Platelets (Bld) [#/Vol] 392 10*3/uL 150-450 [facility] Serum DNA double strand anti body assay (units/volume)Ordered By: Jb Wood on 12-08-2022 DNA double strand Ab Qn (S) [IU]/mL 0-9 [facility] Comment on above: Negative <5 Equivoca l 5 - 9 Positive >9 Serum IgA measurement (units /volume)Ordered By: Jb Wood on 12-08-2022 IgA Qn (S) 210 mg/dL 64-422 [facility] Comment on above: Performed at: [facility] [address] [id number] Director: Mick Bradley PhD, Phone: [phone] Serum Kerry-1 antibody assay (u nits/volume)Ordered By: Jb Wood on 12-08-2022 Kerry-1 extractable nuclear Ab Qn (S) <0.2 AI 0.0-0.9 [facility] Serum Scl-70 extractable nuc lear antibody assay (units/volume)Ordered By: Jb Wood on 12-08-2022 SCL-70 extractable nuclear Ab Qn (S) <0.2 AI 0.0-0.9 [facility] Serum Benito extractable nucl ear antibody detectionOrdered By: Jb Wood on 12-08-2022 Benito extractable nuclear Ab Ql (S) <0.2 AI 0.0-0.9 [facility] Serum [id number] measu rement by electrophoresisOrdered By: Jb Wood on 12-08-2022 Alpha 1 globulin Elph [Mass/Vol] 0.3 g/dL 0.0-0.4 [facility] Alpha 1 globulin Elph [Mass/Vol] 1.1 g/dL 0.4-1.0 [facility] Serum classic neutrophil cyt oplasmic antibody assay (units/volume)Ordered By: Jb Wood on 12-08-2022 Neutrophil cytoplasmic Ab.classic Qn (S) <1:20 titer Neg:<1:20 [facility] Serum globulin measurement ( mass/volume)Ordered By: Jb Wood on 12-08-2022 Globulin (S) [Mass/Vol] 3.3 g/dL 2.2-3.9 [facility] Serum or plasma C reactive p rotein measurement (mass/volume)Ordered By: Jb Wood on 12-08-2022 CRP [Mass/Vol] 3.82 mg/L 0.0-3.0 [facility] Comment on above: C-Reactive Protein ( CRP) provides useful information for thediagnosis, therapy and monitoring of inflammatory processesand associated diseases. For the evaluation of Relative Riskfor Cardiovascular Disease, a High Sensitivity CRP (HSCRP)should be ordered. Serum or plasma IgA measurem ent (mass/volume)Ordered By: Jb Wood on 12-08-2022 IgA [Mass/Vol] 202 mg/dL 64-422 [facility] Serum or plasma IgG measurem ent (mass/volume)Ordered By: Jb Wood on 12-08-2022 IgG [Mass/Vol] 819 mg/dL [phone] [facility] Serum or plasma IgM measurem ent (mass/volume)Ordered By: Jb Wood on 12-08-2022 IgM [Mass/Vol] 71 mg/dL 26-217 [facility] Serum or plasma albumin alissa urement (mass/volume)Ordered By: Jb Wood on 12-08-2022 Albumin [Mass/Vol] 2.9 g/dL 3.2-5.0 [facility] Serum or plasma albumin/glob ulin mass ratioOrdered By: Jb Wood on 12-08-2022 Albumin/Globulin [Mass ratio] 0.7 {ratio} 0.9-2.4 [facility] Serum or plasma beta globuli n measurement by electrophoresis (mass/volume)Ordered By: Jb Wood on 12-08-2022 Beta globulin Elph [Mass/Vol] 1.1 g/dL 0.7-1.3 [facility] Serum or plasma calcium alissa urement (mass/volume)Ordered By: Jb Wood on 12-08-2022 Calcium [Mass/Vol] 8.8 mg/dL 8.5-10.1 [facility] Serum or plasma creatinine m easurement (mass/volume)Ordered By: Jb Wood on 12-08-2022 Creatinine [Mass/Vol] 0.64 mg/dL 0.55-1.02 [facility] Comment on above: The validity of the calculated GFR & GFRAA in patients over 70 years has not been determined. Clinical correlation is essential. Serum or plasma gamma globul in measurement by electrophoresis (mass/volume)Ordered By: Jb Wood on 12-08-2022 Gamma globulin Elph [Mass/Vol] 0.8 g/dL 0.4-1.8 [facility] Serum or plasma immunoelectr ophoresis interpretation (nominal result)Ordered By: Jb Wood on 12-08-2022 Interpretation IEP [Interp] Comment . [facility] Comment on above: No monoclonality det ected. Serum or plasma urea nitroge n measurement (mass/volume)Ordered By: Jb Wood on 12-08-2022 Urea nitrogen [Mass/Vol] 12 mg/dL 7-18 [facility] Serum perinuclear neutrophil cytoplasmic antibody titer by immunofluorescenceOrdered By: Jb Wood on 12-08-2022 Neutrophil cytoplasmic Ab.perinuclear IF (S) [Titer] <1:20 titer Neg:<1:20 [facility] Comment on above: The presence of posi tive fluorescence exhibiting P-ANCA orC-ANCA patterns alone is not specific for the diagnosis ofWegener's Granulomatosis (WG) or microscopic polyangiitis.Decisions about treatment should not be based solely onANCA IFA results. The [employer] Consensusrecommends follow up testing of positive sera with both NJ-3 and MPO-ANCA enzyme immunoassays. As many as 5% serumsamples are positive only by EIA. Ref. AM J Clin Rykapq3618;111:507-513. Serum tissue transglutaminas e IgA antibody assay (units/volume)Ordered By: Jb Wood on 12-08-2022 tTG IgA Qn (S) <2 U/mL 0-3 [facility] Comment on above: Negative 0 [...] smear with manual screening 12 U/L 15-37 [facility] Thin prep Papanicolaou smear with manual screening 9 5-15 [facility] Thin prep Papanicolaou smear with manual screening 1.0 0.7-1.7 [facility] Total protein bloodOrdered B y: Jb Wood on 12-08-2022 Protein [Mass/Vol] 6.5 g/dL 6.0-8.5 [facility] Basophil percentageOrdered B y: Dr. Fabian on 11-13-2022 Bilirubin [Mass/Vol] 0.30 mg/dL 0.20-1.00 [facility] Comment on above: For patients on eltr ombopag therapy, use of Dimension Atkins TBIL is not recommended. Chloride [Moles/Vol] 98 mmol/L 98-107 [facility] Glucose [Mass/Vol] 161 mg/dL 74-106 [facility] Comment on above: Fasting Glucose resu lt greater than or equal to 126 mg/dL suggests DIABETES MELLITUS per A.D.A. criteria. Potassium [Moles/Vol] 3.0 mmol/L 3.5-5.1 [facility] Protein [Mass/Vol] 7.5 g/dL 6.4-8.2 [facility] Sodium [Moles/Vol] 137 mmol/L 136-145 [facility] Laboratory - Chemistry and C hemistry - challengeOrdered By: Dr. Fabian on 11-13-2022 ALP [Catalytic activity/Vol] 71 U/L 45-117 [facility] ALT [Catalytic activity/Vol] 36 U/L 13-56 [facility] CO2 [Moles/Vol] 30.0 mmol/L 21.0-32.0 [facility] Globulin (S) [Mass/Vol] 4.7 g/dL 2.2-4.2 [facility] Urea nitrogen/Creatinine [Mass ratio] 18.9 mg/mg 10-20 [facility] No Panel InformationOrdered By: Dr. Fabian on 11-13-2022 Endomysial IgA Antibody Negative Negative [facility] Estimated GFR (MDRD) Amer 89 mL/min >60 [facility] Comment on above: GFR Calc Estimated GFR (MDRD) Non-Af Amer 73 mL/min >60 [facility] Comment on above: Non- GFR Calc Vitamin D 25-Hydroxy 24.5 ng/mL [facility] Comment on above: Vitamin D 25(OH) Sta tus Range Deficiency <20 ng/mL (50nmol/L) Insufficiency 20 - 30 ng/mL (50 - 75 nmol/L) Sufficiency 30 - 100 ng/mL (75 - 250 nmol/L) Toxicity >100 ng/mL (>250 nmol/L) Serum IgA measurement (units /volume)Ordered By: Dr. Fabian on 11-13-2022 IgA Qn (S) 227 mg/dL 64-422 [facility] Comment on above: Performed at: [address] [id number] Director: Mick Bradley PhD, Phone: [phone] Serum or plasma albumin alissa urement (mass/volume)Ordered By: Dr. Fabian on 11-13-2022 Albumin [Mass/Vol] 2.8 g/dL 3.2-5.0 [facility] Serum or plasma albumin/glob ulin mass ratioOrdered By: Dr. Fabian on 11-13-2022 Albumin/Globulin [Mass ratio] 0.6 {ratio} 0.9-2.4 [facility] Serum or plasma calcium alissa urement (mass/volume)Ordered By: Dr. Fabian on 11-13-2022 Calcium [Mass/Vol] 9.3 mg/dL 8.5-10.1 [facility] Serum or plasma creatinine m easurement (mass/volume)Ordered By: Dr. Fabian on 11-13-2022 Creatinine [Mass/Vol] 0.79 mg/dL 0.55-1.02 [facility] Comment on above: The validity of the calculated GFR & GFRAA in patients over 70 years has not been determined. Clinical correlation is essential. Serum or plasma urea nitroge n measurement (mass/volume)Ordered By: Dr. Fabian on 11-13-2022 Urea nitrogen [Mass/Vol] 15 mg/dL 7-18 [facility] Serum tissue transglutaminas e IgA antibody assay (units/volume)Ordered By: Dr. Fabian on 11-13-2022 tTG IgA Qn (S) <2 U/mL 0-3 [facility] Comment on above: Negative 0 [...] smear with manual screening 26 U/L 15-37 [facility] Thin prep Papanicolaou smear with manual screening 9 5-15 [facility] Absolute lymphocyte countOrd ered By: Dr. Irwin on 11-10-2022 Lymphocytes Auto (Unsp spec) [#/Vol] 2.31 10*3/uL 0.83-4.51 [facility] Basophil percentageOrdered B y: Dr. Irwin on 11-10-2022 Basophil percentage 0 SEEN /hpf 0-5 [facility] Basophils/100 WBC (Bld) 0.6 % 0-1 [facility] Bilirubin [Mass/Vol] 0.30 mg/dL 0.20-1.00 [facility] Comment on above: For patients on eltr ombopag therapy, use of Dimension Atkins TBIL is not recommended. Chloride [Moles/Vol] 97 mmol/L 98-107 [facility] Eosinophils/100 WBC (Bld) 1.4 % 0-5 [facility] Glucose [Mass/Vol] 102 mg/dL 74-106 [facility] Comment on above: Fasting Glucose resu lt from 100 to 125 mg/dL suggests IMPAIRED HOMEOSTASIS per A.D.A. criteria. Neutrophils (Bld) [#/Vol] 6.2 10*3/uL 2.0-7.7 [facility] Neutrophils/100 WBC (Bld) 62.1 % 47-70 [facility] Potassium [Moles/Vol] 2.6 mmol/L 3.5-5.1 [facility] Comment on above: Critical Result(s) C alled at: 11:54:29 11/10/2022 by: Toño Rivera RN (ER). Results read back by same. Protein [Mass/Vol] 6.8 g/dL 6.4-8.2 [facility] Sodium [Moles/Vol] 138 mmol/L 136-145 [facility] WBC (Bld) [#/Vol] 10.0 10*3/uL 4.4-11.0 [facility] Bilirubin Test strip Ql (U)O rdered By: Dr. Irwin on 11-10-2022 Bilirubin Ql (U) Negative Negative [facility] Blood erythrocytes count (nu mber/volume)Ordered By: Dr. Irwin on 11-10-2022 RBC (Bld) [#/Vol] 3.82 10*6/uL 4.2-5.4 [facility] Blood hemoglobin measurement (mass/volume)Ordered By: Dr. Irwin on 11-10-2022 Hemoglobin (Bld) [Mass/Vol] 11.7 g/dL 12.0-15. 0 [facility] Blood lymphocytes/100 leukoc ytesOrdered By: Dr. Irwin on 11-10-2022 Lymphocytes/100 WBC (Bld) 23.1 % 19-41 [facility] Blood monocytes/100 leukocyt esOrdered By: Dr. Irwin on 11-10-2022 Monocytes/100 WBC (Bld) 11.8 % 0-10 [facility] Blood platelet mean volumeOr dered By: Dr. Irwin on 11-10-2022 Platelet mean volume (Bld) [Entitic vol] 9.1 fL 6.2-12.0 [facility] Determination of erythrocyte mean corpuscular volume (MCV)Ordered By: Dr. Irwin on 11-10-2022 MCV (RBC) [Entitic vol] 95.5 fL 81-99 [facility] Direct bilirubinOrdered By: Dr. Irwin on 11-10-2022 Bilirubin.direct [Mass/Vol] 0.10 mg/dL 0.00-0.3 0 [facility] Hematocrit Auto (Bld) [Volum e fraction]Ordered By: Dr. Irwin on 11-10-2022 Hematocrit (Bld) [Volume fraction] 36.5 % 37-47 [facility] Ketones Test strip Ql (U)Ord ered By: Dr. Irwin on 11-10-2022 Ketones Ql (U) Negative Negative [facility] Laboratory - Chemistry and C hemistry - challengeOrdered By: Dr. Irwin on 11-10-2022 ALP [Catalytic activity/Vol] 63 U/L 45-117 [facility] ALT [Catalytic activity/Vol] 23 U/L 13-56 [facility] CO2 [Moles/Vol] 31.0 mmol/L 21.0-32.0 [facility] Globulin (S) [Mass/Vol] 4.4 g/dL 2.2-4.2 [facility] Urea nitrogen/Creatinine [Mass ratio] 16.9 mg/mg 10-20 [facility] Laboratory - Hematology and Cell countsOrdered By: Dr. Irwin on 11-10-2022 Erythrocyte distribution width (RBC) [Entitic vol] 42.5 fL 35.1-43.9 [facility] Erythrocyte distribution width (RBC) [Ratio] 12.2 % 11.6-14.6 [facility] Immature granulocytes/100 WBC (Bld) 1.000 % 0.0-0.9 [facility] Comment on above: IG% - Immature Granu locytes (promyelocytes, myelocytes and metamyelocytes) > 1% indicates that a LEFT SHIFT is Present. MCH (RBC) [Entitic mass] 30.6 pg 27.0-32.0 [facility] Nucleated RBC/100 WBC (Bld) [Ratio] 0 % 0-5 [facility] MCHC Auto (RBC) [Mass/Vol]Or dered By: Dr. Irwin on 11-10-2022 MCHC (RBC) [Mass/Vol] 32.1 g/dL 32-36 [facility] Mucus LM Ql (Urine sed)Order ed By: Dr. Irwin on 11-10-2022 Mucus Ql (Urine sed) 0 SEEN /hpf [facility] Nitrite Test strip Ql (U)Ord ered By: Dr. Irwin on 11-10-2022 Nitrite Ql (U) Negative Negative [facility] No Panel InformationOrdered By: Dr. Irwin on 11-10-2022 Estimated Creatinine Clearance Calc 33.02 ml/min [facility] Estimated GFR (MDRD) Amer 72 mL/min >60 [facility] Comment on above: GFR Calc Estimated GFR (MDRD) Non-Af Amer 60 mL/min >60 [facility] Comment on above: Non- GFR Calc Platelets bldOrdered By: Dr. Irwin on 11-10-2022 Platelets (Bld) [#/Vol] 443 10*3/uL 150-450 [facility] Protein Test strip Ql (U)Ord ered By: Dr. Irwin on 11-10-2022 Protein Ql (U) Negative Negative [facility] Serum or plasma albumin alissa urement (mass/volume)Ordered By: Dr. Irwin on 11-10-2022 Albumin [Mass/Vol] 2.4 g/dL 3.2-5.0 [facility] Serum or plasma calcium alissa urement (mass/volume)Ordered By: Dr. Irwin on 11-10-2022 Calcium [Mass/Vol] 8.5 mg/dL 8.5-10.1 [facility] Serum or plasma creatinine m easurement (mass/volume)Ordered By: Dr. Irwin on 11-10-2022 Creatinine [Mass/Vol] 0.94 mg/dL 0.55-1.02 [facility] Comment on above: The validity of the calculated GFR & GFRAA in patients over 70 years has not been determined. Clinical correlation is essential. Serum or plasma urea nitroge n measurement (mass/volume)Ordered By: Dr. Irwin on 11-10-2022 Urea nitrogen [Mass/Vol] 16 mg/dL 7-18 [facility] Squamous epithelial cells de tection in urine sediment by light microscopyOrdered By: Dr. Irwin on 11-10-2022 Epithelial cells.squamous LM Ql (Urine sed) 0-5 SEEN /hpf 5-10 [facility] Thin prep Papanicolaou smear with manual screeningOrdered By: Dr. Irwin on 11-10-2022 Thin prep Papanicolaou smear with manual screening 15 U/L 15-37 [facility] Thin prep Papanicolaou smear with manual screening 10 5-15 [facility] Urine blood detectionOrdered By: Dr. Irwin on 11-10-2022 RBC Ql (U) Negative Negative [facility] RBC Ql (U) 0 SEEN /hpf 0-5 [facility] Urine clarityOrdered By: Dr. Irwin on 11-10-2022 Clarity (U) Clear Clear [facility] Urine color determinationOrd ered By: Dr. Irwin on 11-10-2022 Color (U) Yellow Yellow [facility] Urine glucose detectionOrder ed By: Dr. Irwin on 11-10-2022 Glucose Ql (U) Normal mg/dl Normal [facility] Urine leukocyte esterase det ection by dipstickOrdered By: Dr. Irwin on 11-10-2022 Leukocyte esterase Test strip Ql (U) 100 /ul Negative [facility] Urine pHOrdered By: Dr. Stefany house on 11-10-2022 pH (U) 7.0 [pH] 5.0 - 8.0 [facility] Urine sediment bacteria coun t by microscopy (number/high power field)Ordered By: Dr. Irwin on 11-10-2022 Bacteria LM.HPF (Urine sed) [#/Area] 0 /[HPF] None Seen [facility] Urine sediment renal epithel ial cell count by microscopy (number/high power field)Ordered By: Dr. Irwin on 11-10-2022 Epithelial cells.renal LM.HPF (Urine sed) [#/Area] 0 /[HPF] 0-5 [facility] Urine specific gravity measu rementOrdered By: Dr. Irwin on 11-10-2022 Specific gravity (U) [Rel density] 1.005 1.002-1.03 0 [facility] Urobilinogen Auto test strip Ql (U)Ordered By: Dr. Irwin on 11-10-2022 Urobilinogen Ql (U) Normal mg/dl Normal [facility] Absolute lymphocyte countOrd ered By: Dr. Gibson on 11-01-2022 Lymphocytes Auto (Unsp spec) [#/Vol] 1.90 10*3/uL 0.83-4.51 [facility] Absolute lymphocyte countOrd ered By: Dr. Fabian on 11-01-2022 Lymphocytes Auto (Unsp spec) [#/Vol] 1.93 10*3/uL 0.83-4.51 [facility] Basophil percentageOrdered B y: Dr. Gibson on 11-01-2022 Basophils/100 WBC (Bld) 0.9 % 0-1 [facility] Chloride [Moles/Vol] 101 mmol/L 98-107 [facility] Eosinophils/100 WBC (Bld) 1.7 % 0-5 [facility] Glucose [Mass/Vol] 120 mg/dL 74-106 [facility] Comment on above: Fasting Glucose resu lt from 100 to 125 mg/dL suggests IMPAIRED HOMEOSTASIS per A.D.A. criteria. Neutrophils (Bld) [#/Vol] 2.8 10*3/uL 2.0-7.7 [facility] Neutrophils/100 WBC (Bld) 43.8 % 47-70 [facility] Potassium [Moles/Vol] 2.7 mmol/L 3.5-5.1 [facility] Comment on above: Critical Result(s) C alled at: 16:30:16 11/01/2022 by: Gillian Garrett to [facility]. Results read back by same. Sodium [Moles/Vol] 139 mmol/L 136-145 [facility] WBC (Bld) [#/Vol] 6.4 10*3/uL 4.4-11.0 [facility] Basophil percentageOrdered B y: Dr. Fabian on 11-01-2022 Basophils/100 WBC (Bld) 1.1 % 0-1 [facility] Bilirubin [Mass/Vol] 0.50 mg/dL 0.20-1.00 [facility] Comment on above: For patients on eltr ombopag therapy, use of Dimension Atkins TBIL is not recommended. Chloride [Moles/Vol] 98 mmol/L 98-107 [facility] Eosinophils/100 WBC (Bld) 1.4 % 0-5 [facility] Glucose [Mass/Vol] 119 mg/dL 74-106 [facility] Comment on above: Fasting Glucose resu lt from 100 to 125 mg/dL suggests IMPAIRED HOMEOSTASIS per A.D.A. criteria. Neutrophils (Bld) [#/Vol] 2.4 10*3/uL 2.0-7.7 [facility] Neutrophils/100 WBC (Bld) 42.3 % 47-70 [facility] Potassium [Moles/Vol] 2.4 mmol/L 3.5-5.1 [facility] Protein [Mass/Vol] 7.4 g/dL 6.4-8.2 [facility] Sodium [Moles/Vol] 136 mmol/L 136-145 [facility] WBC (Bld) [#/Vol] 5.6 10*3/uL 4.4-11.0 [facility] Blood erythrocytes count (nu mber/volume)Ordered By: Dr. Gibson on 11-01-2022 RBC (Bld) [#/Vol] 4.28 10*6/uL 4.2-5.4 [facility] Blood erythrocytes count (nu mber/volume)Ordered By: Dr. Fabian on 11-01-2022 RBC (Bld) [#/Vol] 4.15 10*6/uL 4.2-5.4 [facility] Blood hemoglobin measurement (mass/volume)Ordered By: Dr. Gibson on 11-01-2022 Hemoglobin (Bld) [Mass/Vol] 13.0 g/dL 12.0-15. 0 [facility] Blood hemoglobin measurement (mass/volume)Ordered By: Dr. Fabian on 11-01-2022 Hemoglobin (Bld) [Mass/Vol] 12.6 g/dL 12.0-15. 0 [facility] Blood lymphocytes/100 leukoc ytesOrdered By: Dr. Gibson on 11-01-2022 Lymphocytes/100 WBC (Bld) 29.5 % [facility] Blood lymphocytes/100 leukoc ytesOrdered By: Dr. Fabian on 11-01-2022 Lymphocytes/100 WBC (Bld) 34.6 % [facility] Blood manual differential co mment interpretation (narrative result)Ordered By: Dr. Gibson on 11-01-2022 Manual differential comment Derek (Bld) [Interp] SCANNED [facility] Blood monocytes/100 leukocyt esOrdered By: Dr. Gibson on 11-01-2022 Monocytes/100 WBC (Bld) 23.8 % 0-10 [facility] Blood monocytes/100 leukocyt esOrdered By: Dr. Fabian on 11-01-2022 Monocytes/100 WBC (Bld) 20.4 % 0-10 [facility] Blood platelet mean volumeOr dered By: Dr. Gibson on 11-01-2022 Platelet mean volume (Bld) [Entitic vol] 9.7 fL 6.2-12.0 [facility] Blood platelet mean volumeOr dered By: Dr. Fabian on 11-01-2022 Platelet mean volume (Bld) [Entitic vol] 10.1 fL 6.2-12.0 [facility] Clostridium difficile detect ion by polymerase chain reactionOrdered By: Dr. Fabian on 11-01-2022 C. difficile DNA HAZEL+probe Ql (Unsp spec) [facility] Determination of erythrocyte mean corpuscular volume (MCV)Ordered By: Dr. Gibson on 11-01-2022 MCV (RBC) [Entitic vol] 93.9 fL 81-99 [facility] Determination of erythrocyte mean corpuscular volume (MCV)Ordered By: Dr. Fabian on 11-01-2022 MCV (RBC) [Entitic vol] 93.3 fL 81-99 [facility] EP PanelOrdered By: Dr. Lupillo alexander on 11-01-2022 Gastrointestinal pathogens panel HAZEL+probe (Stl) [facility] Giardia lamblia ag stool EIA Ordered By: Dr. Fabian on 11-01-2022 G. lamblia Ag IA Ql (Stl) Negative Negative [facility] Comment on above: Performed at: [facility] [address] [id number] Director: Mick Bradley PhD, Phone: [phone] Hematocrit Auto (Bld) [Volum e fraction]Ordered By: Dr. Gibson on 11-01-2022 Hematocrit (Bld) [Volume fraction] 40.2 % 37-47 [facility] Hematocrit Auto (Bld) [Volum e fraction]Ordered By: Dr. Fabian on 11-01-2022 Hematocrit (Bld) [Volume fraction] 38.7 % 37-47 [facility] Laboratory - Chemistry and C hemistry - challengeOrdered By: Dr. Gibson on 11-01-2022 CO2 [Moles/Vol] 29.0 mmol/L 21.0-32.0 [facility] Magnesium [Mass/Vol] 2.3 mg/dL 1.6-2.6 [facility] Urea nitrogen/Creatinine [Mass ratio] 18.5 mg/mg 07-27 [facility] Laboratory - Chemistry and C hemistry - challengeOrdered By: Dr. Fabian on 11-01-2022 ALP [Catalytic activity/Vol] 62 U/L 45-117 [facility] ALT [Catalytic activity/Vol] 22 U/L 13-56 [facility] CO2 [Moles/Vol] 31.0 mmol/L 21.0-32.0 [facility] Globulin (S) [Mass/Vol] 4.5 g/dL 2.2-4.2 [facility] Magnesium [Mass/Vol] 2.3 mg/dL 1.6-2.6 [facility] Urea nitrogen/Creatinine [Mass ratio] 19.3 mg/mg 10- [facility] Laboratory - Hematology and Cell countsOrdered By: Dr. Gibson on 11-01-2022 Erythrocyte distribution width (RBC) [Entitic vol] 41.5 fL 35.1-43.9 [facility] Erythrocyte distribution width (RBC) [Ratio] 12.1 % 11.6-14.6 [facility] Immature granulocytes/100 WBC (Bld) 0.300 % 0.0-0.9 [facility] Comment on above: IG% - Immature Granu locytes (promyelocytes, myelocytes and metamyelocytes) > 1% indicates that a LEFT SHIFT is Present. MCH (RBC) [Entitic mass] 30.4 pg 27.0-32.0 [facility] Nucleated RBC/100 WBC (Bld) [Ratio] 0 % 0-5 [facility] Laboratory - Hematology and Cell countsOrdered By: Dr. Fabian on 11-01-2022 Erythrocyte distribution width (RBC) [Entitic vol] 41.4 fL 35.1-43.9 [facility] Erythrocyte distribution width (RBC) [Ratio] 12.1 % 11.6-14.6 [facility] Immature granulocytes/100 WBC (Bld) 0.200 % 0.0-0.9 [facility] Comment on above: IG% - Immature Granu locytes (promyelocytes, myelocytes and metamyelocytes) > 1% indicates that a LEFT SHIFT is Present. MCH (RBC) [Entitic mass] 30.4 pg 27.0-32.0 [facility] Nucleated RBC/100 WBC (Bld) [Ratio] 0.5 % 0- [facility] MCHC Auto (RBC) [Mass/Vol]Or dered By: Dr. Gibson on 11-01-2022 MCHC (RBC) [Mass/Vol] 32.3 g/dL [facility] MCHC Auto (RBC) [Mass/Vol]Or dered By: Dr. Fabian on 11-01-2022 MCHC (RBC) [Mass/Vol] 32.6 g/dL [facility] No Panel InformationOrdered By: Dr. Gibson on 11-01-2022 Estimated Creatinine Clearance Calc 23.56 ml/min [facility] Estimated GFR (MDRD) Amer 50 mL/min >60 [facility] Comment on above: GFR Calc Estimated GFR (MDRD) Non-Af Amer 41 mL/min >60 [facility] Comment on above: Non- GFR Calc No Panel InformationOrdered By: Dr. Fabian on 11-01-2022 Stool Calprotectin 339 ug/g 0-120 [facility] Comment on above: Concentration Interp retation Follow-Up<16 - 50 ug/g Normal None>50 -120 ug/g Borderline Re-evaluate in 4-6 weeks >120 ug/g Abnormal Repeat as clinically indicatedPerformed at: - [facility] [address] [id number] Director: Payam Ervin MD, Phone: [phone] Estimated GFR (MDRD) Amer 79 mL/min >60 [facility] Comment on above: GFR Calc Estimated GFR (MDRD) Non-Af Amer 65 mL/min >60 [facility] Comment on above: Non- GFR Calc Platelets bldOrdered By: Dr. Gibson on 11-01-2022 Platelets (Bld) [#/Vol] 392 10*3/uL 150-450 [facility] Platelets bldOrdered By: Dr. Fabian on 11-01-2022 Platelets (Bld) [#/Vol] 423 10*3/uL 150-450 [facility] Serum or plasma albumin alissa urement (mass/volume)Ordered By: Dr. Fabian on 11-01-2022 Albumin [Mass/Vol] 2.9 g/dL 3.2-5.0 [facility] Serum or plasma albumin/glob ulin mass ratioOrdered By: Dr. Fabian on 11-01-2022 Albumin/Globulin [Mass ratio] 0.6 {ratio} 0.9-2.4 [facility] Serum or plasma calcium alissa urement (mass/volume)Ordered By: Dr. Gibson on 11-01-2022 Calcium [Mass/Vol] 8.9 mg/dL 8.5-10.1 [facility] Serum or plasma calcium alissa urement (mass/volume)Ordered By: Dr. Fabian on 11-01-2022 Calcium [Mass/Vol] 9.1 mg/dL 8.5-10.1 [facility] Serum or plasma creatinine m easurement (mass/volume)Ordered By: Dr. Gibson on 11-01-2022 Creatinine [Mass/Vol] 1.30 mg/dL 0.55-1.02 [facility] Comment on above: The validity of the calculated GFR & GFRAA in patients over 70 years has not been determined. Clinical correlation is essential. Serum or plasma creatinine m easurement (mass/volume)Ordered By: Dr. Fabian on 11-01-2022 Creatinine [Mass/Vol] 0.88 mg/dL 0.55-1.02 [facility] Comment on above: The validity of the calculated GFR & GFRAA in patients over 70 years has not been determined. Clinical correlation is essential. Serum or plasma urea nitroge n measurement (mass/volume)Ordered By: Dr. Gibson on 11-01-2022 Urea nitrogen [Mass/Vol] 24 mg/dL - [facility] Serum or plasma urea nitroge n measurement (mass/volume)Ordered By: Dr. Fabian on 11-01-2022 Urea nitrogen [Mass/Vol] 17 mg/dL 7-18 [facility] Thin prep Papanicolaou smear with manual screeningOrdered By: Dr. Gibson on 11-01-2022 Thin prep Papanicolaou smear with manual screening 9 5-15 [facility] Thin prep Papanicolaou smear with manual screeningOrdered By: Dr. Fabian on 11-01-2022 Thin prep Papanicolaou smear with manual screening 16 U/L 15-37 [facility] Thin prep Papanicolaou smear with manual screening 7 5-15 [facility] Absolute lymphocyte countOrd ered By: Dr. Moyer on 07-07-2022 Lymphocytes Auto (Unsp spec) [#/Vol] 1.18 10*3/uL 0.83-4.51 [facility] Basophil percentageOrdered B y: Dr. Moyer on 07-07-2022 Basophil percentage 0-5 SEEN /hpf 0-5 [facility] Basophils/100 WBC (Bld) 0.6 % 0-1 [facility] Chloride [Moles/Vol] 94 mmol/L 98-107 [facility] Eosinophils/100 WBC (Bld) 0.9 % 0-5 [facility] Glucose [Mass/Vol] 120 mg/dL 74-106 [facility] Comment on above: Fasting Glucose resu lt from 100 to 125 mg/dL suggests IMPAIRED HOMEOSTASIS per A.D.A. criteria. Neutrophils (Bld) [#/Vol] 4.3 10*3/uL 2.0-7.7 [facility] Neutrophils/100 WBC (Bld) 64.3 % 47-70 [facility] Potassium [Moles/Vol] 3.4 mmol/L 3.5-5.1 [facility] Sodium [Moles/Vol] 131 mmol/L 136-145 [facility] WBC (Bld) [#/Vol] 6.6 10*3/uL 4.4-11.0 [facility] Bilirubin Test strip Ql (U)O rdered By: Dr. Moyer on 07-07-2022 Bilirubin Ql (U) Negative Negative [facility] Blood erythrocytes count (nu mber/volume)Ordered By: Dr. Moyer on 07-07-2022 RBC (Bld) [#/Vol] 4.51 10*6/uL 4.2-5.4 [facility] Blood hemoglobin measurement (mass/volume)Ordered By: Dr. Moyer on 07-07-2022 Hemoglobin (Bld) [Mass/Vol] 14.0 g/dL 12.0-15. 0 [facility] Blood lymphocytes/100 leukoc ytesOrdered By: Dr. Moyer on 07-07-2022 Lymphocytes/100 WBC (Bld) 17.9 % 19-41 [facility] Blood monocytes/100 leukocyt esOrdered By: Dr. Moyer on 07-07-2022 Monocytes/100 WBC (Bld) 16.1 % 0-10 [facility] Blood platelet mean volumeOr dered By: Dr. Moyer on 07-07-2022 Platelet mean volume (Bld) [Entitic vol] 9.6 fL 6.2-12.0 [facility] Determination of erythrocyte mean corpuscular volume (MCV)Ordered By: Dr. Moyer on 07-07-2022 MCV (RBC) [Entitic vol] 92.2 fL 81-99 [facility] Hematocrit Auto (Bld) [Volum e fraction]Ordered By: Dr. Moyer on 07-07-2022 Hematocrit (Bld) [Volume fraction] 41.6 % 37-47 [facility] Ketones Test strip Ql (U)Ord ered By: Dr. Moyer on 07-07-2022 Ketones Ql (U) Negative Negative [facility] Laboratory - Chemistry and C hemistry - challengeOrdered By: Dr. oMyer on 07-07-2022 CO2 [Moles/Vol] 29.0 mmol/L 21.0-32.0 [facility] Urea nitrogen/Creatinine [Mass ratio] 13.0 mg/mg 10-20 [facility] Laboratory - Hematology and Cell countsOrdered By: Dr. Moyer on 07-07-2022 Erythrocyte distribution width (RBC) [Entitic vol] 40.0 fL 35.1-43.9 [facility] Erythrocyte distribution width (RBC) [Ratio] 11.9 % 11.6-14.6 [facility] Immature granulocytes/100 WBC (Bld) 0.200 % 0.0-0.9 [facility] Comment on above: IG% - Immature Granu locytes (promyelocytes, myelocytes and metamyelocytes) > 1% indicates that a LEFT SHIFT is Present. MCH (RBC) [Entitic mass] 31.0 pg 27.0-32.0 [facility] Nucleated RBC/100 WBC (Bld) [Ratio] 0 % 0-5 [facility] MCHC Auto (RBC) [Mass/Vol]Or dered By: Dr. Moyer on 07-07-2022 MCHC (RBC) [Mass/Vol] 33.7 g/dL 32-36 [facility] Mucus LM Ql (Urine sed)Order ed By: Dr. Moyer on 07-07-2022 Mucus Ql (Urine sed) 0 SEEN /hpf [facility] Nitrite Test strip Ql (U)Ord ered By: Dr. Moyer on 07-07-2022 Nitrite Ql (U) Negative Negative [facility] No Panel InformationOrdered By: Dr. Moyer on 07-07-2022 Estimated Creatinine Clearance Calc 34.64 ml/min [facility] Estimated GFR (MDRD) Amer 91 mL/min >60 [facility] Comment on above: GFR Calc Estimated GFR (MDRD) Non-Af Amer 76 mL/min >60 [facility] Comment on above: Non- GFR Calc Platelets bldOrdered By: Dr. Moyer on 07-07-2022 Platelets (Bld) [#/Vol] 225 10*3/uL 150-450 [facility] Protein Test strip Ql (U)Ord ered By: Dr. Moyer on 07-07-2022 Protein Ql (U) 30 mg/dl Negative [facility] Serum or plasma calcium alissa urement (mass/volume)Ordered By: Dr. Moyer on 07-07-2022 Calcium [Mass/Vol] 8.8 mg/dL 8.5-10.1 [facility] Serum or plasma creatinine m easurement (mass/volume)Ordered By: Dr. Moyer on 07-07-2022 Creatinine [Mass/Vol] 0.77 mg/dL 0.55-1.02 [facility] Comment on above: The validity of the calculated GFR & GFRAA in patients over 70 years has not been determined. Clinical correlation is essential. Serum or plasma urea nitroge n measurement (mass/volume)Ordered By: Dr. Moyer on 07-07-2022 Urea nitrogen [Mass/Vol] 10 mg/dL 7-18 [facility] Squamous epithelial cells de tection in urine sediment by light microscopyOrdered By: Dr. Moyer on 07-07-2022 Epithelial cells.squamous LM Ql (Urine sed) 0-5 SEEN /hpf 5-10 [facility] Thin prep Papanicolaou smear with manual screeningOrdered By: Dr. Moyer on 07-07-2022 Thin prep Papanicolaou smear with manual screening 8 5-15 [facility] Urine blood detectionOrdered By: Dr. Moyer on 07-07-2022 RBC Ql (U) 25 /ul Negative [facility] RBC Ql (U) 0-5 SEEN /hpf 0-5 [facility] Urine clarityOrdered By: Dr. Moyer on 07-07-2022 Clarity (U) Clear Clear [facility] Urine color determinationOrd ered By: Dr. Moyer on 07-07-2022 Color (U) Yellow Yellow [facility] Urine glucose detectionOrder ed By: Dr. Moyer on 07-07-2022 Glucose Ql (U) Normal mg/dl Normal [facility] Urine leukocyte esterase det ection by dipstickOrdered By: Dr. Moyer on 07-07-2022 Leukocyte esterase Test strip Ql (U) 100 /ul Negative [facility] Urine pHOrdered By: Dr. Karri benito on 07-07-2022 pH (U) 7.0 [pH] 5.0 - 8.0 [facility] Urine sediment bacteria coun t by microscopy (number/high power field)Ordered By: Dr. Moyer on 07-07-2022 Bacteria LM.HPF (Urine sed) [#/Area] 2 /[HPF] None Seen [facility] Urine specific gravity measu rementOrdered By: Dr. Moyer on 07-07-2022 Specific gravity (U) [Rel density] 1.010 1.002-1.03 0 [facility] Urobilinogen Auto test strip Ql (U)Ordered By: Dr. Moyer on 07-07-2022 Urobilinogen Ql (U) Normal mg/dl Normal [facility] Laboratory - Chemistry and C hemistry - challengeon 07-05-2022 Bilirubin Ql (U) Negative [facility] Glucose Ql (U) Negative [facility] Ketones Ql (U) Negative [facility] pH (U) 5.0 [pH] [facility] Specific gravity (U) [Rel density] 1.010 [facility] Urobilinogen (U) [Mass/Vol] Negative [facility] Laboratory - Hematology and Cell countson 07-05-2022 Hemoglobin Ql (U) Negative [facility] Laboratory - Specimen inform ationon 07-05-2022 Clarity (U) Clear [facility] Color (U) Yellow [facility] Laboratory - Urinalysison Nitrite Ql (U) Negative [facility] Protein Ql (U) Negative [facility] No Panel Informationon 07-05 Urine Leukocytes Negatve [facility] Urine Non-Hemolyzed Blood Negative [facility] Laboratory - Microbiology an d Antimicrobial susceptibilityon 06-08-2022 SARS-CoV-2 (COVID-19) RNA HAZEL+probe Ql (Unsp spec) Not detected Not Detect [facility] Work Phone: Comment on above: [...] or has had recent exposure. Liam 05-10-2022 [facility] Telephone (YING) DEA MERRITT ([id number]) 1935 F Date Time Provider Department 05/10/22 HARRIS MOTA During your visit today, we recorded the following information about you: Neli Moreland 05/10/2022 4:17 PM Signed Received labs from [facility]. Placed in provider's inbox for review. Route [...] Comments: Mouth swelling and blurry vision. STATINS ([id number] REDUCTAS*10/18/2009 5 - Intolerance Comments: Joint pain/swelling/elevated liver enzymes TURMERIC 09/23/2020 8 - GI Upset VENOM-WASP 06/02/2021 7 - Swelling Date Reviewed: 02/24/2022 Reviewed by: Paulina Santos LPN - Fully Assessed Reason for Visit: Outside Lab Results [753] Cmt: [facility] Prescriptions as of 05/10/2022 - rivaroxaban (XARELTO) [...] Status:Closed by NELI MORELAND on 05/10/22 [facility] Basophil percentageon 2021 Basophil percentage Not Reportable [facility] Work Phone: CNPNon [facility]-08-20[facility]ITT ([id number]) 1935 F Date Time Provider Department 05/08/22 HARRIS MOTA During your visit today, we recorded the following information about you: Neli Moreland 05/08/2022 2:03 PM Signed Received labs from [facility]. Placed in provider's inbox for review. Route [...] Comments: Mouth swelling and blurry vision. STATINS ([id number] REDUCTAS*10/18/2009 5 - Intolerance Comments: Joint pain/swelling/elevated liver enzymes TURMERIC 09/23/2020 8 - GI Upset VENOM-WASP 06/02/2021 7 - Swelling Date Reviewed: 02/24/2022 Reviewed by: Paulina Santos LPN - Fully Assessed Reason for Visit: Outside Lab Results [753] Cmt: [facility] Prescriptions as of 05/08/2022 - rivaroxaban (XARELTO) [...] Status:Closed by NELI MORELAND on 05/08/22 Normal [facility] Erythrocyte sedimentation ra herve 05-08-2022 ESR (Bld) [Velocity] 9 mm/h 0-30 [facility] Work Phone: Laboratory - Chemistry and C hemistry - challengeon 05-08-2022 Cobalamin (Vitamin B12) [Mass/Vol] 549 pg/mL 211-911 [facility] Work Phone: No Panel Informationon 05-08 Anti-Nuclear Antibody Screen Negative Negative [facility] Work Phone: Comment on above: Performed at: [address] [id number] Director: Mick Bradley PhD, Phone: [phone] Centromere B Antibody Not Reportable [facility] Work Phone: [employer] Antibody Not Reportable [facility] Work Phone: Serum DNA double strand anti body assay (units/volume)on 05-08-2022 DNA double strand Ab Qn (S) Not Reportable [facility] Work Phone: Serum Kerry-1 antibody assay (u nits/volume)on 05-08-2022 Kerry-1 extractable nuclear Ab Qn (S) Not Reportable [facility] Work Phone: Serum Scl-70 extractable nuc lear antibody assay (units/volume)on 05-08-2022 SCL-70 extractable nuclear Ab Qn (S) Not Reportable [facility] Work Phone: Serum Benito extractable nucl ear antibody detectionon 05-08-2022 Benito extractable nuclear Ab Ql (S) Not Reportable [facility] Work Phone: Serum cyclic citrullinated p eptide IgG antibody assay (units/volume)on 05-08-2022 Cyclic citrullinated peptide IgG Qn 6 units 0-19 [facility] Work Phone: Comment on above: Negative <20 Weak po sitive 20 - 39 Moderate positive 40 - 59 Strong positive >59Performed at: - [facility] [id number] Director: Payam Ervin MD, Phone: [phone] Serum or plasma C reactive p rotein measurement (mass/volume)on 05-08-2022 CRP [Mass/Vol] mg/L 0.0-3.0 [facility] Work Phone: Comment on above: C-Reactive Protein ( CRP) provides useful information for thediagnosis, therapy and monitoring of inflammatory processesand associated diseases. For the evaluation of Relative Riskfor Cardiovascular Disease, a High Sensitivity CRP (HSCRP)should be ordered. CBC,PLATELETSon 02-17-2022 Hematocrit (Bld) [Volume fraction] 39.7 % Normal 34.9-44.3 [facility] Comment on above: Performed By: #### H FP, LABHSTI1, C7ED #### [facility] (DEFAULT) [address] [place] [address] Hemoglobin (Bld) [Mass/Vol] 13.1 g/dL Normal 11.4-15. 2 [facility] Comment on above: Performed By: #### HESHAM RODARTE, C7ED #### [facility] ([facility] [address] [place] [address]359 MCV (RBC) [Entitic vol] 93.4 fL Normal 79.6-97.7 [facility] Comment on above: Performed By: #### HESHAM RODARTE C7ED #### [facility] (DEFAULT) [address] [place] [address]145 Mean Cell Hgb 30.8 pg Normal 25.9-33.9 [facility] Comment on above: Performed By: #### HESHAM RODARTE C7ED #### [facility] (DEFAULT) [address] [place] [address] 73094 Mean Cell Hgb Conc 33.0 g/dL Normal 31.4-35.9 [facility] Comment on above: Performed By: #### HESHAM RODARTE C7ED #### [facility] (DEFAULT) [address] [place] [address]61 Platelet mean volume (Bld) [Entitic vol] 10.4 fL Normal 8.5-12.2 [facility] Comment on above: Performed By: #### Rubén BOSE LABWILLI, C7ED #### [facility] (DEFAULT) [address] [place] [address] Platelets (Bld) [#/Vol] 254 10*3/uL Normal 150-393 [facility] Comment on above: Performed By: #### Rubén BOSE LABCESAR1, C7ED #### [facility] (DEFAULT) [address] [place] [address] 70322 RBC (Bld) [#/Vol] 4.25 10*6/uL Normal 3.91-5.04 [facility] Comment on above: Performed By: #### H JUICE LABLOU, C7ED #### [facility] (DEFAULT) [address] [place] [address]86 RBC Distribution 12.6 % Normal 10.8-14.9 [facility] Comment on above: Performed By: #### H JUICE LABWILLI, C7ED #### [facility] (DEFAULT) [address] [place] [address]116 WBC (Bld) [#/Vol] 6.60 10*3/uL Normal 3.99-11.19 [facility] Comment on above: Performed By: #### H JUICE LABLOU, C7ED #### [facility] (DEFAULT) [address] [place] [address]697 Erythrocyte distribution width (RBC) [Ratio] 12.6 % 10.8 - 14.9 % [facility] Hematocrit (Bld) [Volume fraction] 39.7 % 34.9 - 44.3 % [facility] Hemoglobin (Bld) [Mass/Vol] 13.1 g/dL 11.4 - 15.2 g/dL [facility] Interpretation and review of laboratory results Normal [facility] MCH (RBC) [Entitic mass] 30.8 pg 25. 9 - 33.9 pg [facility] MCHC (RBC) [Mass/Vol] 33.0 g/dL 31.4 - 35.9 g/dL [facility] MCV (RBC) [Entitic vol] 93.4 fL 79.6 - 97.7 fL [facility] Platelet mean volume (Bld) [Entitic vol] 10.4 fL 8.5 - 12.2 fL [facility] Platelets (Bld) [#/Vol] 254 10*3/uL 150 - 393 K/uL [facility] RBC (Bld) [#/Vol] 4.25 10*6/uL [facility] WBC (Bld) [#/Vol] 6.60 10*3/uL 3.99 - 11.19 K/uL [facility] CHEM 7 (LYTES,BUN,CREA,GLUC) on 02-17-2022 Anion gap [Moles/Vol] 15 mmol/L Normal 7-17 [facility] Comment on above: Performed By: #### C HM7 #### [facility] (DEFAULT) [address] [place] [address] 65658 Chloride [Moles/Vol] 107 mmol/L Normal 98-108 [facility] Comment on above: Performed By: #### C HM7 #### [facility] (DEFAULT) [address] [place] [address] 97353 CO2 [Moles/Vol] 22 mmol/L Normal 21-31 [facility] Comment on above: Performed By: #### C HM7 #### [facility] (DEFAULT) [address] [place] [address]12 Creatinine [Mass/Vol] 0.73 mg/dL Normal 0.50-1.20 [facility] Comment on above: Performed By: #### C HM7 #### [facility] (DEFAULT) [address] [place] [address] 63078 GFR/1.73 sq M.predicted among non-blacks MDRD (S/P/Bld) [Vol rate/Area] 81 mL/min/{1.73_m2} Normal >=60 [facility] Comment on above: Result Comment: Repo rted eGFR is based on the CKD-EPI 2020 equation using creatinine, age, and sex. Performed By: #### C HM7 #### [facility] (DEFAULT) [address] [place] [address] 62736 Glucose [Mass/Vol] 90 mg/dL Normal 70-99 [facility] Comment on above: Performed By: #### C HM7 #### [facility] (DEFAULT) [address] [place] [address] 99989 Osmolality [Osmolality] 294 mosm/kg Normal 278-305 [facility] Comment on above: Performed By: #### C HM7 #### [facility] (DEFAULT) [address] [place] [address] 75909 Potassium [Moles/Vol] 4.0 mmol/L Normal 3.5-5.0 [facility] Comment on above: Performed By: #### C HM7 #### [facility] (DEFAULT) [address] [place] [address] 45632 Sodium [Moles/Vol] 140 mmol/L Normal 135-145 [facility] Comment on above: Performed By: #### C HM7 #### [facility] (DEFAULT) [address] [place] [address] 04344 Urea nitrogen [Mass/Vol] 18 mg/dL Normal 7-25 [facility] Comment on above: Performed By: #### C HM7 #### [facility] (DEFAULT) [address] [place] [address] 28213 Urea nitrogen/Creatinine [Mass ratio] 25 mg/mg Normal [facility] Comment on above: Performed By: #### C HM7 #### [facility] (DEFAULT) [address] [place] [address] 34677 Anion gap [Moles/Vol] 15 mmol/L 7 - 17 mmol/L [facility] Chloride [Moles/Vol] 107 mmol/L 98 - 10 8 mmol/L [facility] CO2 [Moles/Vol] 22 mmol/L 21 - 31 mmol/L [facility] Creatinine [Mass/Vol] 0.73 mg/dL 0.50 - 1.20 mg/dL [facility] GFR/1.73 sq M.predicted CKD-EPI (S/P/Bld) [Vol rate/Area] 81 >=60 mL/min/1.7 3m2 [facility] Comment on above: Reported eGFR is bas ed on the CKD-EPI 2020 equation using creatinine, age, and sex. Glucose [Mass/Vol] 90 mg/dL 70 - 99 mg/dL [facility] Osmolality Calc [facility]olality] [facility] Potassium [Moles/Vol] 4.0 mmol/L 3.5 - 5.0 mmol/L [facility] Sodium [Moles/Vol] 140 mmol/L 135 - 145 mmol/L [facility] Urea nitrogen [Mass/Vol] 18 mg/dL 7 - 25 mg/dL [facility] Urea nitrogen/Creatinine [Mass ratio] 25 mg/mg [facility] Cardiac echo study Procedure Ordered By: Mary Wall on 02-17-2022 Ao peak matilda 1.05 m/s [facility] Work Phone: AV LVOT peak gradient 4 mmHg [facility] Work Phone: AV peak gradient [address] [facility] Work Phone: AV regurgitation pressure 1/2 time 671.00 ms [facility] Work Phone: AV Velocity Ratio 0.97 [facility] Work Phone: CARMELINA (continuity Vmax) 2.70 cm2 [facility] Work Phone: CARMELINA index (continuity Vmax) 1.80 m/s [facility] Work Phone: Body surface area Derived from formula 1.5 m2 [facility] Work Phone: DI (Vmax) 0.97 [facility] Work Phone: E wave decelartion time 188.10 msec [facility] Work Phone: EST RAP 8.00 mmHg [facility] Work Phone: EST RVSP 30 mmHg [facility] Work Phone: FS 34 % 28 - 44 % [facility] Work Phone: IVC ostium 1.29 cm [facility] Work Phone: IVS 0.78 cm [facility] Work Phone: LA ESV BP (MOD) 119 mL [facility] Work Phone: LA ESV BP (MOD) index 79 mL/m2 [facility] Work Phone: LA ESV SP 2CH (MOD) 130 mL [facility] Work Phone: LA ESV SP 4CH (MOD) 107 mL [facility] Work Phone: [facility]: LV Mass Index 46.4 g/m2 [facility] Work Phone: LV RWT 0.42 [facility] Work Phone: LVIDD 3.50 cm [facility] Work Phone: LVIDS 2.30 cm [facility] Work Phone: LVOT area 2.77 cm2 [facility] Work Phone: LVOT diameter 1.88 cm [facility] Work Phone: LVOT peak matilda 1.02 m/s [facility] Work Phone: MV pk E matilda 1.03 m/s [facility] Work Phone: PV peak gradient [address] [facility] Work Phone: PV PK MATILDA 0.65 m/s [facility] Work Phone: PW 0.73 cm [facility] Work Phone: RA vol index 4CH (MOD) 64.00 mL/m2 [facility] Work Phone: Right atrium volume 4 chamber method of disks [address] [facility] [address] Work Phone: RV Area diastolic 14.48 cm2 [facility] Work Phone: RV Area systolic 9.[address] [facility] Work Phone: RV basal diam 4.21 [facility] Work Phone: RV Fractional area change 33.9 % [facility] Work Phone: RV long diam 5.10 cm [facility] Work Phone: RV mid diam 2.52 cm [facility] Work Phone: RV S' 12.16 cm/s [facility] Work Phone: RVOT peak gradient [facility] Work Phone: RVOT peak matilda 0.61 m/s [facility] Work Phone: TAPSE 1.85 cm [facility] Work Phone: TR pk grad 22 [facility] Work Phone: TR pk matilda 2.35 m/s [facility] Work Phone: TV rest pulmonary artery pressure 27.07 [facility] Work Phone: [facility] Work Phone: Cardiac echo study Procedure [...] study was performed. Imaging system used: Siemens. [facility] Radiology Study observation (narrative) [facility] ECHOCARDIOGRAMon 02-17-2022 Echocardiography ? Cardiac rhythm [...] shunt seen with color Doppler. Facility [facility] Patient Information Patient Name Dea Merritt [...] Role Read Date Mary Wall MD Test Hand Splitter, Echo [place] 02/17/2022 Left Heart Measurements LV - Systole [...] 30 mmHg (more content not included)... Normal [facility] EXTRA MICROon 02-17-2022 [facility] MR Brain WO contraston 02-17 IMPRESSION: [...] probably due to small vessel ischemic disease. [facility] Radiology Study observation (narrative) [facility] MR Brain WO contrastOrdered By: Marisol Osman on 02-17-2022 [facility] Work Phone: MRI BRAIN WITHOUT CONTRASTon [...] due to small vessel ischemic disease. Normal [facility] CBC,PLATELETSon 02-16-2022 Hematocrit (Bld) [Volume fraction] 42.2 % Normal 34.9-44.3 [facility] Comment on above: Performed By: #### [facility] #### [facility] (DEFAULT) [address] [address] Hemoglobin (Bld) [Mass/Vol] 13.6 g/dL Normal 11.4-15. 2 [facility] Comment on above: Performed By: #### H [facility] #### [facility] (DEFAULT) [address] [address] MCV (RBC) [Entitic vol] 93.0 fL Normal 79.6-97.7 O [facility] Comment on above: Performed By: #### H [facility] #### [facility] (DEFAULT) [address] [address] Mean Cell Hgb 30.0 pg Normal 25.9-33.9 [facility] Comment on above: Performed By: #### H [facility] #### [facility] (DEFAULT) [address] [place] [address] Mean Cell Hgb Conc 32.2 g/dL Normal 31.4-35.9 [facility] Comment on above: Performed By: #### H EMOGC #### U [facility] (DEFAULT) [address] [place] [address] Platelet mean volume (Bld) [Entitic vol] 10.1 fL Normal 8.5-12.2 [facility] Comment on above: Performed By: #### H EMOGC #### [facility] (DEFAULT) [address] [address] Platelets (Bld) [#/Vol] 257 10*3/uL Normal 150-393 [facility] Comment on above: Performed By: #### H EMO #### [facility] (DEFAULT) [address] [place] [address] RBC (Bld) [#/Vol] 4.54 10*6/uL Normal 3.91-5.04 [facility] Comment on above: Performed By: #### H EMO #### [facility] (DEFAULT) [address] [address] RBC Distribution 12.6 % Normal 10.8-14.9 [facility] Comment on above: Performed By: #### H EMOGC #### [facility] (DEFAULT) [address] [address] WBC (Bld) [#/Vol] 7.07 10*3/uL Normal 3.99-11.19 [facility] Comment on above: Performed By: #### H EMOGC #### [facility] (DEFAULT) [address] [address] Erythrocyte distribution width (RBC) [Ratio] 12.6 % 10.8 - 14.9 % [facility] Hematocrit (Bld) [Volume fraction] 42.2 % 34.9 - 44.3 % [facility] Hemoglobin (Bld) [Mass/Vol] 13.6 g/dL 11.4 - 15.2 g/dL [facility] Interpretation and review of laboratory results Normal [facility] MCH (RBC) [Entitic mass] 30.0 pg 25. 9 - 33.9 pg [facility] MCHC (RBC) [Mass/Vol] 32.2 g/dL 31.4 - 35.9 g/dL [facility] MCV (RBC) [Entitic vol] 93.0 fL 79.6 - 97.7 fL [facility] Platelet mean volume (Bld) [Entitic vol] 10.1 fL 8.5 - 12.2 fL [facility] Platelets (Bld) [#/Vol] 257 10*3/uL 150 - 393 K/uL [facility] RBC (Bld) [#/Vol] 4.54 10*6/uL [facility] WBC (Bld) [#/Vol] 7.07 10*3/uL 3.99 - 11.19 K/uL [facility] CHEM 7 (LYTES,BUN,CREA,GLUC) on 02-16-2022 Anion gap [Moles/Vol] 14 mmol/L Normal 7-17 [facility] Comment on above: Performed By: #### H JUICE, LABHSTI1, C7ED #### [facility] (DEFAULT) [address] [place] [address] Chloride [Moles/Vol] 105 mmol/L Normal 98-108 [facility] Comment on above: Performed By: #### H JUICE, LABHSTI1, C7ED #### [facility] (DEFAULT) [address] [place] [address] CO2 [Moles/Vol] 24 mmol/L Normal 21-31 [facility] Comment on above: Performed By: #### H FP, LABHSTI1, C7ED #### [facility] (DEFAULT) [address] [place] [address] Creatinine [Mass/Vol] 0.87 mg/dL Normal 0.50-1.20 [facility] Comment on above: Performed By: #### HESHAM RODARTE C7ED #### [facility] (DEFAULT) [address] [place] [address] GFR/1.73 sq M.predicted among non-blacks MDRD (S/P/Bld) [Vol rate/Area] 66 mL/min/{1.73_m2} Normal >=60 [facility] Comment on above: Result Comment: Repo rted eGFR is based on the CKD-EPI 2020 equation using creatinine, age, and sex. Performed By: #### HESHAM RODARTE C7ED #### [facility] (DEFAULT) [address] [place] [address] Glucose [Mass/Vol] 121 mg/dL High 70-99 [facility] Comment on above: Performed By: #### HESHAM RODARTE C7ED #### [facility] (DEFAULT) [address] [place] [address] Osmolality [Osmolality] 294 mosm/kg Normal 278-305 [facility] Comment on above: Performed By: #### HESHAM RODARTE C7ED #### [facility] (DEFAULT) [address] [place] [address] Potassium [Moles/Vol] 3.4 mmol/L Low 3.5-5.0 [facility] Comment on above: Performed By: #### HESHAM RODARTE C7ED #### [facility] (DEFAULT) [address] [place] [address] Sodium [Moles/Vol] 140 mmol/L Normal 135-145 [facility] Comment on above: Performed By: #### HESHAM RODARTE C7ED #### [facility] (DEFAULT) [address] [place] [address] Urea nitrogen [Mass/Vol] 15 mg/dL Normal 7-25 [facility] Comment on above: Performed By: #### H JUICE, LABHSTI1, C7ED #### [facility] (DEFAULT) [address] [place] [address] Urea nitrogen/Creatinine [Mass ratio] 17 mg/mg Normal [facility] Comment on above: Performed By: #### H JUICE, LABHSTI1, C7ED #### U [facility] (DEFAULT) [address] [place] [address] Anion gap [Moles/Vol] 14 mmol/L 7 - 17 mmol/L [facility] Chloride [Moles/Vol] 105 mmol/L 98 - 10 8 mmol/L [facility] CO2 [Moles/Vol] 24 mmol/L 21 - 31 mmol/L [facility] Creatinine [Mass/Vol] 0.87 mg/dL 0.50 - 1.20 mg/dL [facility] GFR/1.73 sq M.predicted CKD-EPI (S/P/Bld) [Vol rate/Area] 66 >=60 mL/min/1.7 3m2 [facility] Comment on above: Reported eGFR is bas ed on the CKD-EPI 2020 equation using creatinine, age, and sex. Glucose [Mass/Vol] 121 mg/dL High 70 - 99 mg/dL [facility] Osmolality Calc [Osmolality] 294 [facility] Potassium [Moles/Vol] 3.4 mmol/L Low 3.5 - 5.0 mmol/L [facility] Sodium [Moles/Vol] 140 mmol/L 135 - 145 mmol/L [facility] Urea nitrogen [Mass/Vol] 15 mg/dL 7 - 25 mg/dL [facility] Urea nitrogen/Creatinine [Mass ratio] 17 mg/mg [facility] CONTINUOUS CARDIAC MONITORIN G STRIPon 02-16-2022 [facility] CONTINUOUS CARDIAC MONITORIN G STRIPOrdered By: Unassigned Pacs on 02-16-2022 [facility] Work Phone: CT CEREBRAL PERFUSION ANALYS [...] Ayala on 02/16/2022 12:11 AM . Normal [facility] IMPRESSION: Area of large mismatch perfusion [...] Brett Ayala on 02/16/2022 12:11 AM . [facility] CT CEREBRAL PERFUSION ANALYS ISOrdered By: Brett Ayala on 02-16-2022 [facility] Work Phone: CT HEAD WITHOUT CONTRASTon [...] hemorrhage or acute large territory infarct. Normal [facility] CT Head WO contraston 2021 IMPRESSION: [...] intracranial hemorrhage or acute large territory infarct. [facility] HEMOGLOBIN [id number] By: Duarte Garibay on 02-16-2022 Average glucose Estimated from glycated hemoglobin (Bld) [Mass/Vol] 131 mg/dL [facility] HbA1c (Bld) [Mass fraction] 6.2 % High 4.7 - 5.6 % [facility] Interpretation and review of laboratory results Abnormal [facility] HEMOGLOBIN A1Con 02-16-2022 Glucose [Mass/Vol] 131 mg/dL Normal [facility] Comment on above: Performed By: #### H JUICE LABHSTIFFANIE1, C7ED #### [facility] (DEFAULT) [address] [address] HbA1c (Bld) [Mass fraction] 6.2 % High 4.7-5.6 [facility] Comment on above: Performed By: #### H JUICE LABHSTIFFANIE1, C7ED #### [facility] (DEFAULT) [address] [address] HEPATIC FUNCTION PANELon Albumin [Mass/Vol] 3.9 g/dL Normal 3.5-5.0 [facility] Comment on above: Performed By: #### H JUICE LABHSTI1, C7ED #### [facility] (DEFAULT) [address] [address] ALP [Catalytic activity/Vol] 54 U/L Normal 32-126 [facility] Comment on above: Performed By: #### H JUICE, LABHSTI1, C7ED #### [facility] (DEFAULT) [address] [place] [address] ALT [Catalytic activity/Vol] 23 U/L Normal 9-48 [facility] Comment on above: Performed By: #### HESHAM RODARTE, C7ED #### [facility] (DEFAULT) [address] [place] [address] AST [Catalytic activity/Vol] 24 U/L Normal 10-39 [facility] Comment on above: Performed By: #### HESHAM RODARTE C7ED #### [facility] (DEFAULT) [address] [place] [address] Bilirubin [Mass/Vol] 0.6 mg/dL Normal <1.5 [facility] Comment on above: Performed By: #### HESHAM RODARTE C7ED #### [facility] (DEFAULT) [address] [place] [address] Bilirubin.indirect [Mass/Vol] 0.1 mg/dL Normal <0.3 [facility] Comment on above: Performed By: #### HESHAM RODARTE C7ED #### [facility] (DEFAULT) [address] [place] [address] Protein [Mass/Vol] 6.7 g/dL Normal 6.4-8.3 [facility] Comment on above: Performed By: #### Rubén BOSE LABWILLI C7ED #### [facility] (DEFAULT) [address] [place] [address] Albumin [Mass/Vol] 3.9 g/dL 3.5 - 5.0 g/dL [facility] ALP [Catalytic activity/Vol] 54 U/L 32 - 126 U/L [facility] ALT [Catalytic activity/Vol] 23 U/L 9 - 48 U/L [facility] AST [Catalytic activity/Vol] 24 U/L 10 - 39 U/L [facility] Bilirubin [Mass/Vol] 0.6 mg/dL <1.5 [facility] Bilirubin.direct [Mass/Vol] 0.1 mg/dL <0.3 [facility] Protein [Mass/Vol] 6.7 g/dL 6.4 - 8.3 g/dL [facility] LIPID PANEL WITH REFLEX TO M CRISELDAFRANK LDLon 02-16-2022 Calculated LDL Cholesterol 187 mg/dL High 0-99 [facility] Comment on above: Result Comment: [<10 0 mg/dL: Optimal] [100-129 mg/dL: Near Optimal] [130-159 mg/dL: Borderline High] [160-189 mg/dL: High] [>189 mg/dL: Very High] Performed By: #### Rubén BOSE, LABHSTIFFANIE1, C7ED #### [facility] (DEFAULT) [address] [place] [address] Cholesterol [Mass/Vol] 285 mg/dL High <200 [facility] Comment on above: Result Comment: [<20 0 mg/dL: Desirable] [200-239 mg/dL: Borderline High] [>239 mg/dL: High] Performed By: #### Rubén BOSE, LABHSTI1, C7ED #### [facility] (DEFAULT) [address] [place] [address] Cholesterol in HDL [Mass/Vol] 71 mg/dL Normal >=40 [facility] Comment on above: Result Comment: [<40 mg/dL: Low (High Risk)] [>59 mg/dL: High (Low Risk)] Performed By: #### Rubén BOSE, LABHSTI1, C7ED #### [facility] (DEFAULT) [address] [place] [address] Non HDL Cholesterol 214 mg/dL High <130 [facility] Comment on above: Performed By: #### Rubén BOSE, LABHSTI1, C7ED #### [facility] (DEFAULT) [address] [place] [address] Total Cholesterol/HDL Ratio 4.0 Normal <4.5 [facility] Comment on above: Performed By: #### Rubén BOSE, LABHSTI1, C7ED #### [facility] (DEFAULT) [address] [place] [address] Triglyceride [Mass/Vol] 137 mg/dL Normal <150 [facility] Comment on above: Result Comment: [<15 0 mg/dL: Desirable] [150-199 mg/dL: Borderline] [200-499 mg/dL: High] [>500 mg/dL: Very High] Performed By: #### H ANTONIOLOU, C7ED #### [facility] (DEFAULT) [address] [place] [address] Cholesterol [Mass/Vol] 285 mg/dL High <200 [facility] Comment on above: [<200 mg/dL: Desirab le] [200-239 mg/dL: Borderline High] [>239 mg/dL: High] Cholesterol in HDL [Mass/Vol] 71 mg/dL >=40 [facility] Comment on above: [<40 mg/dL: Low (Hig h Risk)] [>59 mg/dL: High (Low Risk)] Cholesterol in HDL [Mass/Vol] 214 mg/dL High <130 [facility] Cholesterol in LDL [Mass/Vol] 187 mg/dL High 0 - 99 mg/dL [facility] Comment on above: [<100 mg/dL: Optimal ] [100-129 mg/dL: Near Optimal] [130-159 mg/dL: Borderline High] [160-189 mg/dL: High] [>189 mg/dL: Very High] Cholesterol.total/Cholester ol in HDL [Mass ratio] 4.0 {ratio} <4.5 [facility] Triglyceride [Mass/Vol] 137 mg/dL <150 [facility] Comment on above: [<150 mg/dL: Desirab le] [150-199 mg/dL: Borderline] [200-499 mg/dL: High] [>500 mg/dL: Very High] LT BLUE TOP TUBEon [facility] MAGNESIUMon 02-16-2022 Magnesium [Mass/Vol] 1.9 mg/dL Normal 1.6-2.6 [facility] Comment on above: Performed By: #### H , LABHSTI1, C7ED #### [facility] (DEFAULT) [address] [place] [address] Magnesium [Mass/Vol] 1.9 mg/dL 1.6 - 2 .6 mg/dL [facility] No Panel Informationon 02-16 Interpretation and review of laboratory results Abnormal [facility] Interpretation and review of laboratory results Normal [facility] TOXICOLOGY SCREEN URINE - UD RGOrdered By: Nathalia Nguyen on 02-16-2022 Barbiturates Ql (U) Negative Cutoff: 200 ng/mL [facility] Cannabinoids Screen Ql (U) Negative C utoff: 50 ng/mL [facility] Drugs identified Screen Nom (U) Negative Negative [facility] Interpretation and review of laboratory results Normal [facility] For Medical Purposes Only. Nonforensic screen results are considered presumptive and no confirmatory testing will follow. Drugs are detected by immunoassay or Liquid Chromatography Mass Spectrometry (LC-MS/MS). The LC-MS/MS test was developed and its performance characteristics determined by the Toxicology Laboratory at [facility]. It has not been cleared or [...] Alprazolam(50), Amitriptyline(50), Amphetamine(250), Atenolol(500),Benzoyle cgonine(50), Buprenorphine(100), Bupropion(25),Caffeine (16712),Chlordiazepoxi de(50), Chlorpheniramine(100), Chlorpromazine(50), Citalopram(100), Clonazepam(200), Cocaine(25),Codeine(20 0), [...] Tramadol(50), Trazodone(25), Triazolam(100), Trifluoperazine (100),Venlafaxine(50), Verapamil(100), Zolpidem(200) [facility] TOXICOLOGY SCREEN URINE - UD RGon 02-16-2022 Barbiturates Negative Normal Cutoff: 200 ng/mL [facility] Comment on above: Order Comment: For M edical Purposes Only. Nonforensic screen results are considered presumptive and no confirmatory testing will follow. Drugs are detected by immunoassay or Liquid Chromatography Mass Spectrometry (LC-MS/MS). The LC-MS/MS test was developed and its performance characteristics determined by the Toxicology Laboratory at [facility]. It has not been cleared or [...] (200), Alphahydrozyalprazolam(200), Alprazolam(50), Amitriptyline(50), Amphetamine(250), Atenolol(500),Benzoylecgonine(50), Buprenorphine(100), Bupropion(25),Caffeine(77389),Chlordiazepoxide(50), Chlorpheniramine(100), Chlorpromazine(50), Citalopram(100), Clonazepam(200), Cocaine(25),Codeine(200), Cotinine(500),Desipramine(50), Desmethyldoxepin(100), [...] Performed By: #### U DRG #### [facility] (DEFAULT) [address] [place] [address] Cannabinoids Screen Ql (U) Negative Normal C utoff: 50 ng/mL [facility] Comment on above: Order Comment: For M edical Purposes Only. Nonforensic screen results are considered presumptive and no confirmatory testing will follow. Drugs are detected by immunoassay or Liquid Chromatography Mass Spectrometry (LC-MS/MS). The LC-MS/MS test was developed and its performance characteristics determined by the Toxicology Laboratory at [facility]. It has not been cleared or [...] (200), Alphahydrozyalprazolam(200), Alprazolam(50), Amitriptyline(50), Amphetamine(250), Atenolol(500),Benzoylecgonine(50), Buprenorphine(100), Bupropion(25),Caffeine(11982),Chlordiazepoxide(50), Chlorpheniramine(100), Chlorpromazine(50), Citalopram(100), Clonazepam(200), Cocaine(25),Codeine(200), Cotinine(500),Desipramine(50), Desmethyldoxepin(100), [...] Performed By: #### U DRG #### [facility] (DEFAULT) [address] [place] [address] Drugs Detected Urine Tox Negative Normal Negative [facility] Comment on above: Order Comment: For M edical Purposes Only. Nonforensic screen results are considered presumptive and no confirmatory testing will follow. Drugs are detected by immunoassay or Liquid Chromatography Mass Spectrometry (LC-MS/MS). The LC-MS/MS test was developed and its performance characteristics determined by the Toxicology Laboratory at [facility]. It has not been cleared or [...] (200), Alphahydrozyalprazolam(200), Alprazolam(50), Amitriptyline(50), Amphetamine(250), Atenolol(500),Benzoylecgonine(50), Buprenorphine(100), Bupropion(25),Caffeine(16354),Chlordiazepoxide(50), Chlorpheniramine(100), Chlorpromazine(50), Citalopram(100), Clonazepam(200), Cocaine(25),Codeine(200), Cotinine(500),Desipramine(50), Desmethyldoxepin(100), [...] Performed By: #### U DRG #### [facility] (DEFAULT) [address] [place] [address] URINE DIPSTICK; REFLEX MICRO SCOPY; REFLEX CULTURE PERFORMABLEon 02-16-2022 Appearance (U) Clear Normal Clear [facility] Comment on above: Performed By: #### Rubén BOSE, LABHSTI1, C7ED #### [facility] (DEFAULT) [address] [place] [address] Blood Urine Negative Normal Negative [facility] Comment on above: Performed By: #### Rubén BOSE, LABHSTI1, C7ED #### [facility] (DEFAULT) [address] [place] [address] Color (U) Yellow Normal Yellow [facility] Comment on above: Performed By: #### Rubén BOSE, LABHSTI1, C7ED #### [facility] (DEFAULT) [address] [place] [address] Glucose Ql (U) Negative Normal Negative [facility] Comment on above: Performed By: #### Rubén BOSE, LABHSTI1, C7ED #### [facility] (DEFAULT) [address] [place] [address] Ketones Ql (U) Negative Normal Negative [facility] Comment on above: Performed By: #### Rubén BOSE, LABHSTI1, C7ED #### [facility] (DEFAULT) [address] [place] [address] Leukocyte esterase Test strip Ql (U) Negative Normal Negative [facility] Comment on above: Performed By: #### Rubén BOSE, LABHSTI1, C7ED #### [facility] (DEFAULT) [address] [place] [address] Nitrites Urine Negative Normal Negative [facility] Comment on above: Performed By: #### Rubén BOSE, LABHSTI1, C7ED #### [facility] (DEFAULT) [address] [place] [address] pH (U) 5.5 [pH] Normal 5.0-7.0 [facility] Comment on above: Performed By: #### H JUICE LABLOU, C7ED #### [facility] (DEFAULT) [address] [place] [address] Protein Urine Negative Normal Negative [facility] Comment on above: Performed By: #### H ANTONIO BOSELOU, C7ED #### [facility] (DEFAULT) [address] [place] [address] Specific [place] Urine <=1.005 Normal 1.001 -1.03 5 [facility] Comment on above: Performed By: #### [facility] #### [facility] (DEFAULT) [address] [place] [address] Urobilinogen Urine 0.2 E.U./dL Normal 0.2 E.U/dL, 1.0 E.U/dL [facility] Comment on above: Performed By: #### H [facility] #### [facility] (DEFAULT) [address] [place] [address] Appearance (U) Clear Clear [facility] Color (U) Yellow Yellow [facility] Glucose Test strip (U) [Mass/Vol] Negative Negative [facility] Interpretation and review of laboratory results [facility] Ketones (U) [Mass/Vol] Negative Negative [facility] Leukocyte esterase Test strip Ql (U) Negative Negative [facility] Nitrite Ql (U) Negative [facility] pH (U) 5.5 [pH] 5.0 - 7.0 [facility] Protein (U) [Mass/Vol] Negative Negative [facility] RBC (U) [#/Vol] Negative Negative [facility] Specific gravity (U) [Rel density] <=1.005 [facility] Urobilinogen (U) [Mass/Vol] 0.2 E.U./dL 0.2 E.U/dL, 1.0 E.U/dL [facility] Absolute lymphocyte counton 02-15-2022 Lymphocytes Auto (Unsp spec) [#/Vol] 1.82 10*3/uL 0.83-4.51 [facility] Work Phone: Basophil percentageon 2021 Basophil percentage 0 SEEN /hpf 0-5 [facility] Work Phone: Basophils/100 WBC (Bld) 1.2 % 0-1 [facility] Work Phone: Chloride [Moles/Vol] 105 mmol/L 98-107 [facility] Work Phone: Eosinophils/100 WBC (Bld) 3.0 % 0-5 [facility] Work Phone: Glucose [Mass/Vol] 104 mg/dL 74-106 [facility] Work Phone: Comment on above: Fasting Glucose resu lt from 100 to 125 mg/dL suggests IMPAIRED HOMEOSTASIS per A.D.A. criteria. Neutrophils (Bld) [#/Vol] 4.7 10*3/uL 2.0-7.7 [facility] Work Phone: Neutrophils/100 WBC (Bld) 62.4 % 47-70 [facility] Work Phone: Potassium [Moles/Vol] 3.9 mmol/L 3.5-5.1 [facility] Work Phone: Sodium [Moles/Vol] 138 mmol/L 136-145 [facility] Work Phone: WBC (Bld) [#/Vol] 7.6 10*3/uL 4.4-11.0 [facility] Work Phone: Bilirubin Test strip Ql (U)o n 02-15-2022 Bilirubin Ql (U) Negative Negative [facility] Work Phone: [phone] Blood erythrocytes count (nu mber/volume)on 02-15-2022 RBC (Bld) [#/Vol] 4.41 10*6/uL 4.2-5.4 [facility] Work Phone: Blood hemoglobin measurement (mass/volume)on 02-15-2022 Hemoglobin (Bld) [Mass/Vol] 13.7 g/dL 12.0-15. 0 [facility] Work Phone: Blood lymphocytes/100 leukoc yteson 02-15-2022 Lymphocytes/100 WBC (Bld) 24.0 % 19-41 [facility] Work Phone: Blood monocytes/100 leukocyt eson 02-15-2022 Monocytes/100 WBC (Bld) 9.1 % 0-10 [facility] Work Phone: Blood platelet mean volumeon 02-15-2022 Platelet mean volume (Bld) [Entitic vol] 10.1 fL 6.2-12.0 [facility] Work Phone: CBC AND ELECTRONIC DIFFon Basophils (Bld) [#/Vol] 0.09 10*3/uL Normal 0.00-0.15 [facility] Comment on above: Performed By: #### L [id number] #### [facility] (DEFAULT) [address] [place] [address] Basophils/100 WBC (Bld) 1.4 % Normal O [facility] Comment on above: Performed By: #### L [id number] #### [facility] (DEFAULT) [address] [place] [address] DIFF STATUS Electronic Differential Normal [facility] Comment on above: Performed By: #### L [id number] #### [facility] (DEFAULT) [address] [place] [address] Eosinophils (Bld) [#/Vol] 0.20 10*3/uL Normal 0.00-0.4 2 [facility] Comment on above: Performed By: #### L [id number] #### [facility] (DEFAULT) [address] [place] [address] Eosinophils/100 WBC (Bld) 3.1 % Normal [facility] Comment on above: Performed By: #### L [id number] #### [facility] (DEFAULT) [address] [place] [address] Hematocrit (Bld) [Volume fraction] 43.8 % Normal 34.9-44.3 [facility] Comment on above: Performed By: #### L [id number] #### [facility] (DEFAULT) [address] [address] Hemoglobin (Bld) [Mass/Vol] 13.8 g/dL Normal 11.4-15. 2 [facility] Comment on above: Performed By: #### L [id number] #### [facility] (DEFAULT) [address] [address] Immature Grans % 0.2 % Normal [facility] Comment on above: Performed By: #### L [id number] #### [facility] (DEFAULT) [address] [address] Immature Grans Absolute <0.04 Normal <=0.09 [facility] Comment on above: Performed By: #### L [id number] #### [facility] (DEFAULT) [address] [address] Lymphocytes (Bld) [#/Vol] 2.51 10*3/uL Normal 1.16-3.5 1 [facility] Comment on above: Performed By: #### L [id number] #### [facility] (DEFAULT) [address] [address] Lymphocytes/100 WBC (Bld) 38.6 % Normal [facility] Comment on above: Performed By: #### L [id number] #### [facility] (DEFAULT) [address] [address] MCV (RBC) [Entitic vol] 96.1 fL Normal 79.6-97.7 O [facility] Comment on above: Performed By: #### L [id number] #### [facility] (DEFAULT) [address] [place] [address] Mean Cell Hgb 30.3 pg Normal 25.9-33.9 [facility] Comment on above: Performed By: #### L [id number] #### [facility] (DEFAULT) [address] [address] Mean Cell Hgb Conc 31.5 g/dL Normal 31.4-35.9 [facility] Comment on above: Performed By: #### L [id number] #### [facility] (DEFAULT) [address] [place] [address] Monocytes (Bld) [#/Vol] 0.51 10*3/uL Normal 0.22-0.87 [facility] Comment on above: Performed By: #### L [id number] #### [facility] (DEFAULT) [address] [address] Monocytes/100 WBC (Bld) 7.8 % Normal O [facility] Comment on above: Performed By: #### L [id number] #### [facility] (DEFAULT) [address] [address] Nucleated RBC 0.0 /100 WBC Normal <=0.2 [facility] Comment on above: Performed By: #### L [id number] #### [facility] (DEFAULT) [address] [place] [address] Platelet mean volume (Bld) [Entitic vol] 10.0 fL Normal 8.5-12.2 [facility] Comment on above: Performed By: #### L [id number] #### [facility] (DEFAULT) [address] [place] [address] Platelets (Bld) [#/Vol] 250 10*3/uL Normal 150-393 [facility] Comment on above: Performed By: #### L [id number] #### [facility] (DEFAULT) [address] [place] [address] RBC (Bld) [#/Vol] 4.56 10*6/uL Normal 3.91-5.04 [facility] Comment on above: Performed By: #### L [id number] #### [facility] (DEFAULT) [address] [place] [address] RBC Distribution 12.9 % Normal 10.8-14.9 [facility] Comment on above: Performed By: #### L [id number] #### [facility] (DEFAULT) [address] [place] [address] Segs + Bands Auto 48.9 % Normal [facility] Comment on above: Performed By: #### L [id number] #### [facility] (DEFAULT) [address] [place] [address] Segs + Bands,Absolute Auto 3.18 K/uL Normal 1.64-7.28 [facility] Comment on above: Performed By: #### L [id number] #### [facility] (DEFAULT) [address] [place] [address] WBC (Bld) [#/Vol] 6.50 10*3/uL Normal 3.99-11.19 [facility] Comment on above: Performed By: #### L [id number] #### [facility] (DEFAULT) [address] [place] [address] Basophils (Bld) [#/Vol] 0.09 10*3/uL 0.00 - 0.15 K/uL [facility] Basophils/100 WBC (Bld) 1.4 % [facility] Differential cell count method Nom (Bld) Electronic Differential [facility] Eosinophils (Bld) [#/Vol] 0.20 10*3/uL 0. 00 - 0.42 K/uL [facility] Eosinophils/100 WBC (Bld) 3.1 % [facility] Erythrocyte distribution width (RBC) [Ratio] 12.9 % 10.8 - 14.9 % [facility] Hematocrit (Bld) [Volume fraction] 43.8 % 34.9 - 44.3 % [facility] Hemoglobin (Bld) [Mass/Vol] 13.8 g/dL 11.4 - 15.2 g/dL [facility] Immature granulocytes (Bld) [#/Vol] 10*3/uL <=0.09 K/uL [facility] Immature granulocytes/100 WBC (Bld) 0.2 % [facility] Lymphocytes (Bld) [#/Vol] 2.51 10*3/uL 1. 16 - 3.51 K/uL [facility] Lymphocytes/100 WBC (Bld) 38.6 % [facility] MCH (RBC) [Entitic mass] 30.3 pg 25. 9 - 33.9 pg [facility] MCHC (RBC) [Mass/Vol] 31.5 g/dL 31.4 - 35.9 g/dL [facility] MCV (RBC) [Entitic vol] 96.1 fL 79.6 - 97.7 fL [facility] Monocytes (Bld) [#/Vol] 0.51 10*3/uL 0.22 - 0.87 K/uL [facility] Monocytes/100 WBC (Bld) 7.8 % [facility] Neutrophils (Bld) [#/Vol] 3.18 10*3/uL 1. 64 - 7.28 K/uL [facility] Nucleated RBC/100 WBC (Bld) [Ratio] 0.0 % <=0.2 /100 WBC [facility] Platelet mean volume (Bld) [Entitic vol] 10.0 fL 8.5 - 12.2 fL [facility] Platelets (Bld) [#/Vol] 250 10*3/uL 150 - 393 K/uL [facility] RBC (Bld) [#/Vol] 4.56 10*6/uL [facility] Segmented neutrophils/100 WBC (Bld) 48.9 % [facility] WBC (Bld) [#/Vol] 6.50 10*3/uL 3.99 - 11.19 K/uL [facility] CHM 7 - EDon 02-15-2022 Anion gap [Moles/Vol] 13 mmol/L Normal 7-17 [facility] Comment on above: Performed By: #### H HESHAM BOSE, C7ED #### [facility] (DEFAULT) [address] [place] [address] Chloride [Moles/Vol] 102 mmol/L Normal 98-108 [facility] Comment on above: Performed By: #### HESHAM RODARTE C7ED #### [facility] (DEFAULT) [address] [place] [address] CO2 [Moles/Vol] 25 mmol/L Normal 21-31 [facility] Comment on above: Performed By: #### H HESHAM BOSE C7ED #### [facility] (DEFAULT) [address] [place] [address] Creatinine [Mass/Vol] 0.73 mg/dL Normal 0.50-1.20 [facility] Comment on above: Performed By: #### HESHAM RODARTE C7ED #### [facility]DEFAULT[facility] [address] [place] [address] GFR/1.73 sq M.predicted among non-blacks MDRD (S/P/Bld) [Vol rate/Area] 81 mL/min/{1.73_m2} Normal >=60 [facility] Comment on above: Result Comment: Repo rted eGFR is based on the CKD-EPI 2020 equation using creatinine, age, and sex. Performed By: #### H HESHAM BOSE C7ED #### [facility]DEFAULT[facility] [address] [place] [address] Glucose [Mass/Vol] 94 mg/dL Normal 70-99 [facility] Comment on above: Performed By: #### H HESHAM BOSE, C7ED #### [facility] (DEFAULT) [address] [place] [address] Osmolality [Osmolality] 286 mosm/kg Normal 278-305 [facility] Comment on above: Performed By: #### HESHAM RODARTE, C7ED #### [facility] (DEFAULT) [address] [place] [address] Potassium [Moles/Vol] 3.6 mmol/L Normal 3.5-5.0 [facility] Comment on above: Performed By: #### Rubén BOSE LABCESAR1, C7ED #### [facility] (DEFAULT) [address] [place] [address] Sodium [Moles/Vol] 136 mmol/L Normal 135-145 [facility] Comment on above: Performed By: #### HESHAM RODARTE, C7ED #### [facility] (DEFAULT) [address] [place] [address] Urea nitrogen [Mass/Vol] 17 mg/dL Normal 7-25 [facility] Comment on above: Performed By: #### HESHAM RODARTE C7ED #### [facility] (DEFAULT) [address] [place] [address] Urea nitrogen/Creatinine [Mass ratio] 23 mg/mg Normal [facility] Comment on above: Performed By: #### HESHAM RODARTE, C7ED #### [facility] (DEFAULT) [address] [place] [address] Anion gap [Moles/Vol] 13 mmol/L 7 - 17 mmol/L [facility] Chloride [Moles/Vol] 102 mmol/L 98 - 10 8 mmol/L [facility] CO2 [Moles/Vol] 25 mmol/L 21 - 31 mmol/L [facility] Creatinine [Mass/Vol] 0.73 mg/dL 0.50 - 1.20 mg/dL [facility] GFR/1.73 sq M.predicted CKD-EPI (S/P/Bld) [Vol rate/Area] 81 >=60 mL/min/1.7 3m2 [facility] Comment on above: Reported eGFR is bas ed on the CKD-EPI 2020 equation using creatinine, age, and sex. Glucose [Mass/Vol] 94 mg/dL 70 - 99 mg/dL [facility] Osmolality Calc [Osmolality] 286 [facility] Potassium [Moles/Vol] 3.6 mmol/L 3.5 - 5.0 mmol/L [facility] Sodium [Moles/Vol] 136 mmol/L 135 - 145 mmol/L [facility] Urea nitrogen [Mass/Vol] 17 mg/dL 7 - 25 mg/dL [facility] Urea nitrogen/Creatinine [Mass ratio] 23 mg/mg [facility] CT CEREBRAL PERFUSION ANALYS Catie 02-15-2022 Radiology Study observation (narrative) [facility] CT Head WO contraston 2021 Radiology Study observation (narrative) [facility] Determination of erythrocyte mean corpuscular volume (MCV)on 02-15-2022 MCV (RBC) [Entitic vol] 93.2 fL 81-99 [facility] Work Phone: Glucose Glucometer (BldC) [M ass/Vol]on 02-15-2022 Glucose [Mass/Vol] 98 mg/dL 74-106 [facility] Work Phone: Comment on above: MANAGEMENT OF PATIEN T CARE PER NURSING PROTOCOL HEPATIC FUNCTION PANELon Albumin [Mass/Vol] 4.1 g/dL Normal 3.5-5.0 [facility] Comment on above: Performed By: #### H HESHAM BOSE C7ED #### [facility] (DEFAULT) [address] [place] [address] ALP [Catalytic activity/Vol] 56 U/L Normal 32-126 [facility] Comment on above: Performed By: #### HESHAM RODARTE C7ED #### [facility] (DEFAULT) [address] [place] [address] ALT [Catalytic activity/Vol] 27 U/L Normal 9-48 [facility] Comment on above: Performed By: #### HESHAM RODARTE C7ED #### [facility] (DEFAULT) [address] [place] [address] AST [Catalytic activity/Vol] 30 U/L Normal 10-39 [facility] Comment on above: Performed By: #### Rubén BOSE LABLOU, C7ED #### [facility] (DEFAULT) [address] [place] [address] Bilirubin [Mass/Vol] 0.6 mg/dL Normal <1.5 [facility] Comment on above: Performed By: #### Rubén BOSE LABLOU, C7ED #### [facility] (DEFAULT) [address] [place] [address] Bilirubin.indirect [Mass/Vol] mg/dL Normal <0.3 [facility] Comment on above: Performed By: #### Rubén BOSE, LABWILLI, C7ED #### [facility] (DEFAULT) [address] [place] [address] Protein [Mass/Vol] 6.9 g/dL Normal 6.4-8.3 [facility] Comment on above: Performed By: #### Rubén BOSE, LABLOU, C7ED #### [facility] (DEFAULT) [address] [place] [address] Albumin [Mass/Vol] 4.1 g/dL 3.5 - 5.0 g/dL [facility] ALP [Catalytic activity/Vol] 56 U/L 32 - 126 U/L [facility] ALT [Catalytic activity/Vol] 27 U/L 9 - 48 U/L [facility] AST [Catalytic activity/Vol] 30 U/L 10 - 39 U/L [facility] Bilirubin [Mass/Vol] 0.6 mg/dL <1.5 [facility] Bilirubin.direct [Mass/Vol] mg/dL <0.3 mg/ dL [facility] Protein [Mass/Vol] 6.9 g/dL 6.4 - 8.3 g/dL [facility] HIGH SENSITIVITY TROPONIN I - SINGLE ORDERon 02-15-2022 hs-Troponin I 7 ng/L Normal <34 [facility] Comment on above: Order Comment: Acute Coronary Syndrome (ACS): Initial Evaluation and Management: [email or web address] Performed By: #### H FP, LABHSTI1, C7ED #### [facility] (DEFAULT) [address] [place] [address] Interpretation and review of laboratory results Normal [facility] Troponin I.cardiac DL <= 0.01 ng/mL [Mass/Vol] 7 ng/L <34 [facility] Hematocrit Auto (Bld) [Volum e fraction]on 02-15-2022 Hematocrit (Bld) [Volume fraction] 41.1 % 37-47 [facility] Work Phone: INR in Blood by Coagulation assayon 02-15-2022 INR Coag (Bld) [Relative time] 1.1 {INR} [facility] Work Phone: Ketones Test strip Ql (U)on 02-15-2022 Ketones Ql (U) Negative Negative [facility] Work Phone: Laboratory - Chemistry and C hemistry - challengeon 02-15-2022 CO2 [Moles/Vol] 26.0 mmol/L 21.0-32.0 [facility] Work Phone: Urea nitrogen/Creatinine [Mass ratio] 28.5 mg/mg 10-20 [facility] Work Phone: Laboratory - Coagulationon 0 02-15-2022 aPTT Coag (Bld) [Time] 27.4 s 24.1-36.2 Wo dre [facility] Work Phone: PT Coag (PPP) [Time] 13.7 s 11.7-14.[address] [facility] Work Phone: Laboratory - Hematology and Cell countson 02-15-2022 Erythrocyte distribution width (RBC) [Entitic vol] 43.4 fL 35.1-43.9 [facility] Work Phone: Erythrocyte distribution width (RBC) [Ratio] 12.6 % 11.6-14.6 [facility] Work Phone: Immature granulocytes/100 WBC (Bld) 0.300 % 0.0-0.9 [facility] Work Phone: Comment on above: IG% - Immature Granu locytes (promyelocytes, myelocytes and metamyelocytes) > 1% indicates that a LEFT SHIFT is Present. MCH (RBC) [Entitic mass] 31.1 pg 27.0-32.0 [facility] Work Phone: Nucleated RBC/100 WBC (Bld) [Ratio] 0 % 0-5 [facility] Work Phone: MCHC Auto (RBC) [Mass/Vol]on 02-15-2022 MCHC (RBC) [Mass/Vol] 33.3 g/dL 32-36 [facility] Work Phone: Mucus LM Ql (Urine sed)on Mucus Ql (Urine sed) 0 SEEN /hpf [facility] Work Phone: Nitrite Test strip Ql (U)on 02-15-2022 Nitrite Ql (U) Negative Negative [facility] Work Phone: No Panel Informationon 02-15 Interpretation and review of laboratory results Normal [facility] Estimated Creatinine Clearance Calc 39.01 ml/min [facility] Work Phone: Estimated GFR (MDRD) Amer 87 mL/min >60 [facility] Work Phone: Comment on above: GFR Calc Estimated GFR (MDRD) Non-Af Amer 72 mL/min >60 [facility] Work Phone: Comment on above: Non- GFR Calc Troponin I High Sensitivity < 3 pg/mL 3.0-54.0 [facility] Work Phone: Comment on above: Please Note: New Sherry t Units and Gender Specific Reference Ranges. For more information see Policy Stat Procedure [facility] High Sensitivity Troponin (TNIH) and attachments. PTINR-STROKEon 02-15-2022 INR Coag (PPP) [Relative time] 1.1 {INR} Normal 0.9-1.1 [facility] Comment on above: Performed By: #### P TISTR, PTT #### [facility] (DEFAULT) [address] [place] [address] PT Coag (PPP) [Time] 14.0 s Normal 11.9-14.2 [facility] Comment on above: Performed By: #### P TISTR, PTT #### [facility] (DEFAULT) [address] [place] [address] INR Coag (Bld) [Relative time] 1.1 {INR} [facility] Interpretation and review of laboratory results Normal [facility] PT Coag (PPP) [Time] 14.0 s [facility] aPTT Coag (Bld) [Time] 28.3 s Normal 24.0-34.3 [facility] Comment on above: Performed By: #### P TISTR, PTT #### [facility] (DEFAULT) [address] [place] [address] aPTT Coag (PPP) [Time] 28.3 s [facility] Platelets bldon 02-15-2022 Platelets (Bld) [#/Vol] 306 10*3/uL 150-450 [facility] Work Phone: Protein Test strip Ql (U)on 02-15-2022 Protein Ql (U) Negative Negative [facility] Work Phone: Serum or plasma calcium alissa urement (mass/volume)on 02-15-2022 Calcium [Mass/Vol] 9.2 mg/dL 8.5-10.1 [facility] Work Phone: Serum or plasma creatinine m easurement (mass/volume)on 02-15-2022 Creatinine [Mass/Vol] 0.81 mg/dL 0.55-1.02 [facility] Work Phone: Comment on above: The validity of the calculated GFR & GFRAA in patients over 70 years has not been determined. Clinical correlation is essential. Serum or plasma urea nitroge n measurement (mass/volume)on 02-15-2022 Urea nitrogen [Mass/Vol] 23 mg/dL 7-18 [facility] Work Phone: Squamous epithelial cells de tection in urine sediment by light microscopyon 02-15-2022 Epithelial cells.squamous LM Ql (Urine sed) 0 SEEN /hpf 5-10 [facility] Work Phone: Thin prep Papanicolaou smear with manual screeningon 02-15-2022 Thin prep Papanicolaou smear with manual screening 7 5-15 [facility] Work Phone: Urine blood detectionon 02-05 RBC Ql (U) Negative Negative [facility] Work Phone: RBC Ql (U) 0 SEEN /hpf 0-5 [facility] Work Phone: Urine clarityon 02-15-2022 Clarity (U) Clear Clear [facility] Work Phone: Urine color determinationon 02-15-2022 Color (U) Yellow Yellow [facility] Work Phone: Urine glucose detectionon Glucose Ql (U) Normal mg/dl Normal [facility] Work Phone: Urine leukocyte esterase det ection by dipstickon 02-15-2022 Leukocyte esterase Test strip Ql (U) Negative Negative [facility] Work Phone: Urine pHon 02-15-2022 pH (U) 6.5 [pH] 5.0 - 8.0 [facility] Work Phone: Urine sediment bacteria coun t by microscopy (number/high power field)on 02-15-2022 Bacteria LM.HPF (Urine sed) [#/Area] 0 /[HPF] None Seen [facility] Work Phone: Urine specific gravity measu rementon 02-15-2022 Specific gravity (U) [Rel density] 1.010 1.002-1.03 0 [facility] Work Phone: Urobilinogen Auto test strip Ql (U)on 02-15-2022 Urobilinogen Ql (U) Normal mg/dl Normal [facility] Work Phone: No Panel Informationon 10-28 Miscellaneous Test See comment [facility] Work Phone: Comment on above: Sent directly to [facility] per ordering physician. XR Lumbar spine 3 Viewson IMPRESSION: Demineralization and marked osteoarthritis. Fpga Engineer: LORA Transcribe Date/Time: Aug 26 2020 9:06A Dictated by : HERNANDEZ ORR MD This examination was interpreted and the report reviewed and electronically signed by: HERNANDEZ ORR MD on Aug 26 2020 9:08AM [facility] DIVISION OF RADIOLOGY * * *Final [...] at that interspace. DIVISION OF RADIOLOGY Provider, [facility] - 08/26/2020 * * *Final Report* [...] interspace. IMPRESSION IMPRESSION: Demineralization and marked osteoarthritis. Fpga Engineer: LORA Transcribe Date/Time: Aug 26 2020 9:06A Dictated by : HERNANDEZ ORR MD This examination was interpreted and the report reviewed and electronically signed by: HERNANDEZ ORR MD on Aug 26 2020 9:08AM EST [facility] Radiology Study observation (narrative) [facility] XR Lumbar spine 3 ViewsOrder ed By: [facility] Provider on 08-26-2020 [facility] Vital Signs Date Time Vital Sign Value Performing Clinician Facility 06-29-2025 10:06-0400 Body height 152.[address] Deepika Fabian MD Work Phone: [facility] 06-29-2025 10:06-0400 Body mass index (BMI) [Ratio] 21.1 kg/m2 Dr. Deepika Fabian MD Work Phone: [facility] 06-29-2025 10:06-0400 Body temperature 97.6 [degF] Dr. Deepika Fabian MD Work Phone: [facility] 06-29-2025 10:06-0400 Body weight 48.[address] Deepika Fabian MD Work Phone: [facility] 06-29-2025 10:06-0400 Diastolic blood pressure 80 mm[Hg] Dr. Deepika Fabian MD Work Phone: [facility] 06-29-2025 10:06-0400 Respiratory rate 16 /min Dr. Deepika Fabian MD Work [facility] [facility] 06-29-2025 10:06-0400 Systolic blood pressure 120 mm[Hg] Dr. Deepika Fabian MD Work Phone: [facility] 03-31-2025 08:09-0400 Body height 152.[address] Deepika Fabian MD Work Phone: [facility] 03-31-2025 08:09-0400 Body mass index (BMI) [Ratio] 20.9 kg/m2 Dr. Deepika Fabian MD Work Phone: [facility] 03-31-2025 08:09-0400 Body temperature 98 [degF] Dr. Deepika Fabian MD Work Phone: [facility] 03-31-2025 08:09-0400 Body weight 48.[address] Deepika Fabian MD Work Phone: [facility] 03-31-2025 08:09-0400 Diastolic blood pressure 78 mm[Hg] Dr. Deepika Fabian MD Work Phone: [facility] 03-31-2025 08:09-0400 Heart rate 66 /min Dr. Deepika Fabian MD Work Phone: [facility] 03-31-2025 08:09-0400 Respiratory rate 12 /min Dr. Deepika Fabian MD Work Phone: [facility] 03-31-2025 08:09-0400 SaO2% (BldA) [Mass fraction] 97 % Dr. Deepika Fabian MD Work Phone: [facility] 03-31-2025 08:09-0400 Systolic blood pressure 132 mm[Hg] Dr. Deepika Fabian MD Work Phone: [facility] 01-28-2025 13:56-0400 Body height 152.[address] Deepika Fabian MD Work Phone: [facility] 01-28-2025 13:56-0400 Body mass index (BMI) [Ratio] 21.2 kg/m2 Dr. Deepika Fabian MD Work Phone: [facility] 01-28-2025 13:56-0400 Body weight 49.[address] Deepika Fabian MD Work Phone: [facility] 01-28-2025 13:56-0400 Diastolic blood pressure 75 mm[Hg] Dr. Deepika Fabian MD Work Phone: [facility] 01-28-2025 13:56-0400 Heart rate 70 /min Dr. Deepika Fabian MD Work Phone: [facility] 01-28-2025 13:56-0400 Respiratory rate 18 /min Dr. Deepika Fabian MD Work Phone: [facility] 01-28-2025 13:56-0400 SaO2% (BldA) [Mass fraction] 97 % Dr. Deepika Fabian MD Work Phone: [facility] 01-28-2025 13:56-0400 Systolic blood pressure 121 mm[Hg] Dr. Deepika Fabian MD Work Phone: [facility] 01-28-2025 10:12-0400 Body mass index (BMI) [Ratio] 20.9 kg/m2 Dr. Deepika Fabian MD Work Phone: [facility] 01-28-2025 10:12-0400 Body temperature 97.9 [degF] Dr. Deepika Fabian MD Work Phone: [facility] 01-28-2025 10:12-0400 Body weight 48.[address] Deepika Fabian MD Work Phone: [facility] 01-28-2025 10:12-0400 Diastolic blood pressure 80 mm[Hg] Dr. Deepika Fabian MD Work Phone: [facility] 01-28-2025 10:12-0400 Heart rate 66 /min Dr. Deepika Fabian MD Work Phone: [facility] 01-28-2025 10:12-0400 Respiratory rate 16 /min Dr. Deepika Fabian MD Work Phone: [facility] 01-28-2025 10:12-0400 SaO2% (BldA) [Mass fraction] 97 % Dr. Deepika Fabian MD Work Phone: [facility] 01-28-2025 10:12-0400 Systolic blood pressure 120 mm[Hg] Dr. Deepika Fabian MD Work Phone: [facility] 11-13-2024 15:20-0500 Diastolic blood pressure 70 mm[Hg] Dr. Deepika Fabian MD Work Phone: [facility] 11-13-2024 15:20-0500 Systolic blood pressure 130 mm[Hg] Dr. Deepika Fabian MD Work Phone: [facility] 11-13-2024 15:18-0500 Body mass index (BMI) [Ratio] 21.4 kg/m2 Dr. Deepika Fabian MD Work Phone: [facility] 11-13-2024 15:18-0500 Body weight 49.[address] Deepika Fabian MD Work Phone: [facility] 11-13-2024 15:18-0500 Heart rate 69 /min Dr. Deepika Fabian MD Work Phone: [facility] 11-13-2024 15:18-0500 Respiratory rate 18 /min Dr. Deepika Fabian MD Work Phone: [facility] 11-13-2024 15:18-0500 SaO2% (BldA) [Mass fraction] 95 % Dr. Deepika Fabian MD Work Phone: [facility] 11-13-2024 09:58-0500 Body mass index (BMI) [Ratio] 21.7 kg/m2 Dr. Deepika Fabian MD Work Phone: [facility] 11-13-2024 09:58-0500 Body temperature 96.3 [degF] Dr. Deepika Fabian MD Work Phone: [facility] 11-13-2024 09:58-0500 Body weight 50.[address] Deepika Fabian MD Work Phone: [facility] 11-13-2024 09:58-0500 Diastolic blood pressure 58 mm[Hg] Dr. Deepika Fabian MD Work Phone: [facility] 11-13-2024 09:58-0500 Heart rate 60 /min Dr. Deepika Fabian MD Work Phone: [facility] 11-13-2024 09:58-0500 Respiratory rate 16 /min Dr. Deepika Fabian MD Work Phone: [facility] 11-13-2024 09:58-0500 Systolic blood pressure 104 mm[Hg] Dr. Deepika Fabian MD Work Phone: [facility] 09-29-2023 05:09-0500 Diastolic blood pressure 59 mm[Hg] Dr. Deepika Fabian Work Phone: [facility] 09-29-2023 05:09-0500 Heart rate 70 /min Dr. Deepika Fabian Work Phone: [facility] 09-29-2023 05:09-0500 Respiratory rate 20 /min Dr. Deepika Fabian Work Phone: [facility] 09-29-2023 05:09-0500 SaO2% (BldA) [Mass fraction] 97 % Dr. Deepika Fabian Work Phone: [facility] 09-29-2023 05:09-0500 Systolic blood pressure 146 mm[Hg] Dr. Deepika Fabian Work Phone: [facility] 09-29-2023 01:36-0500 Body height 154.[address] Deepika Fabian Work Phone: [facility] 09-29-2023 01:36-0500 Body mass index (BMI) [Ratio] 20.2 kg/m2 Dr. Deepika Fabian Work Phone: [facility] 09-29-2023 01:36-0500 Body temperature 98 [degF] Dr. Deepika Fabian Work Phone: [facility] 09-29-2023 01:36-0500 Body weight 48.[address] Deepika Fabian Work Phone: [facility] 09-13-2023 11:03-0500 Body temperature 97.9 [degF] Dr. Deepika Fabian Work Phone: [facility] 09-13-2023 11:03-0500 Diastolic blood pressure 75 mm[Hg] Dr. Deepika Fabian Work Phone: [facility] 09-13-2023 11:03-0500 Heart rate 77 /min Dr. Deepika Fabian Work Phone: [facility] 09-13-2023 11:03-0500 Respiratory rate 12 /min Dr. Deepika Fabian Work Phone: [facility] 09-13-2023 11:03-0500 SaO2% (BldA) [Mass fraction] 93 % Dr. Deepika Fabian Work Phone: [facility] 09-13-2023 11:03-0500 Systolic blood pressure 125 mm[Hg] Dr. Deepika Fabian Work Phone: [facility] 07-31-2023 09:57-0400 Body mass index (BMI) [Ratio] 20.7 kg/m2 Dr. Deepika Fabian Work Phone: [facility] 07-31-2023 09:57-0400 Body temperature 97.8 [degF] Dr. Deepika Fabian Work Phone: [facility] 07-31-2023 09:57-0400 Body weight 49.[address] Deepika Fabian Work Phone: [facility] 07-31-2023 09:57-0400 Diastolic blood pressure 60 mm[Hg] Dr. Deepika Fabian Work Phone: [facility] 07-31-2023 09:57-0400 Heart rate 46 /min Dr. Deepika Fabian Work Phone: [facility] 07-31-2023 09:57-0400 Respiratory rate 16 /min Dr. Deepika Fabian Work Phone: [facility] 07-31-2023 09:57-0400 SaO2% (BldA) [Mass fraction] 92 % Dr. Deepika Fabian Work Phone: [facility] 07-31-2023 09:57-0400 Systolic blood pressure 108 mm[Hg] Dr. Deepika Fabian Work Phone: [facility] 07-10-2023 09:07-0400 Body mass index (BMI) [Ratio] 20.4 kg/m2 Dr. Deepika Fabian Work Phone: [facility] 07-10-2023 09:07-0400 Body temperature 96.1 [degF] Dr. Deepika Fabian Work Phone: [facility] 07-10-2023 09:07-0400 Body weight 49.[address] Deepika aFbian Work Phone: [facility] 07-10-2023 09:07-0400 Diastolic blood pressure 72 mm[Hg] Dr. Deepika Fabian Work Phone: [facility] 07-10-2023 09:07-0400 Heart rate 80 /min Dr. Deepika Fabian Work Phone: [facility] 07-10-2023 09:07-0400 Respiratory rate 18 /min Dr. Deepika Fabian Work Phone: [facility] 07-10-2023 09:07-0400 SaO2% (BldA) [Mass fraction] 99 % Dr. Deepika Fabian Work Phone: [facility] 07-10-2023 09:07-0400 Systolic blood pressure 124 mm[Hg] Dr. Deepika Fabian Work Phone: [facility] 06-27-2023 11:20-0400 Body temperature 97.8 [degF] Dr. Deepika Fabian Work Phone: [facility] 06-27-2023 11:20-0400 Diastolic blood pressure 71 mm[Hg] Dr. Deepika Fabian Work Phone: [facility] 06-27-2023 11:20-0400 Heart rate 62 /min Dr. Deepika Fabian Work Phone: [facility] 06-27-2023 11:20-0400 Respiratory rate 14 /min Dr. Deepika Fabian Work Phone: [facility] 06-27-2023 11:20-0400 SaO2% (BldA) [Mass fraction] 94 % Dr. Deepika Fabian Work Phone: [facility] 06-27-2023 11:20-0400 Systolic blood pressure 150 mm[Hg] Dr. Deepika Fabian Work Phone: [facility] 04-17-2023 12:56-0400 Body height 154.[address] Deepika Fabian Work Phone: [facility] 04-17-2023 12:56-0400 Body mass index (BMI) [Ratio] 20.2 kg/m2 Dr. Deepika Fabian Work Phone: [facility] 04-17-2023 12:56-0400 Body temperature 96.4 [degF] Dr. Deepika Fabian Work Phone: [facility] 04-17-2023 12:56-0400 Body weight 48.[address] Deepika Fabian Work Phone: [facility] 04-17-2023 12:56-0400 Diastolic blood pressure 80 mm[Hg] Dr. Deepika Fabian Work Phone: [facility] 04-17-2023 12:56-0400 Heart rate 70 /min Dr. Deepika Fabian Work Phone: [facility] 04-17-2023 12:56-0400 Respiratory rate 18 /min Dr. Deepika Fabian Work Phone: [facility] 04-17-2023 12:56-0400 SaO2% (BldA) [Mass fraction] 95 % Dr. Deepika Fabian Work Phone: [facility] 04-17-2023 12:56-0400 Systolic blood pressure 122 mm[Hg] Dr. Deepika Fabian Work Phone: [facility] 03-15-2023 15:57-0400 Diastolic blood pressure 84 mm[Hg] Dr. Deepika Fabian Work Phone: [facility] 03-15-2023 15:57-0400 Systolic blood pressure 144 mm[Hg] Dr. Deepika Fabian Work Phone: [facility] 03-15-2023 15:02-0400 Body height 154.[address] Deepika Fabian Work Phone: [facility] 03-15-2023 15:02-0400 Body mass index (BMI) [Ratio] 20.9 kg/m2 Dr. Deepika Fabian Work Phone: [facility] 03-15-2023 15:02-0400 Body temperature 97.5 [degF] Dr. Deepika Fabian Work Phone: [facility] 03-15-2023 15:02-0400 Body weight 50.[address] Deepika Fabian Work Phone: [facility] 03-15-2023 15:02-0400 Heart rate 72 /min Dr. Deepika Fabian Work Phone: [facility] 03-15-2023 15:02-0400 Respiratory rate 14 /min Dr. Deepika Fabian Work Phone: [facility] 03-15-2023 15:02-0400 SaO2% (BldA) [Mass fraction] 96 % Dr. Deepika Fabian Work Phone: [facility] 03-01-2023 13:50-0400 Body mass index (BMI) [Ratio] 20.7 kg/m2 Dr. Deepika Fabian Work Phone: [facility] 03-01-2023 13:50-0400 Body temperature 97.5 [degF] Dr. Deepika Fabian Work Phone: [facility] 03-01-2023 13:50-0400 Body weight 49.[address] Deepika Fabian Work Phone: [facility] 03-01-2023 13:50-0400 Diastolic blood pressure 78 mm[Hg] Dr. Deepika Fabian Work Phone: [facility] 03-01-2023 13:50-0400 Heart rate 90 /min Dr. Deepika Fabian Work Phone: [facility] 03-01-2023 13:50-0400 Respiratory rate 16 /min Dr. Deepika Fabian Work Phone: [facility] 03-01-2023 13:50-0400 SaO2% (BldA) [Mass fraction] 92 % Dr. Deepika Fabian Work Phone: [facility] 03-01-2023 13:50-0400 Systolic blood pressure 126 mm[Hg] Dr. Deepika Fabian Work Phone: [facility] 02-13-2023 15:14-0400 Body temperature 98.4 [degF] Dr. Deepika Fabian Work Phone: [facility] 02-13-2023 15:14-0400 Diastolic blood pressure 98 mm[Hg] Dr. Deepika Fabian Work Phone: [facility] 02-13-2023 15:14-0400 Heart rate 96 /min Dr. Deepika Fabian Work Phone: [facility] 02-13-2023 15:14-0400 Respiratory rate 18 /min Dr. Deepika Fabian Work Phone: [facility] 02-13-2023 15:14-0400 SaO2% (BldA) [Mass fraction] 94 % Dr. Deepika Fabian Work Phone: [facility] 02-13-2023 15:14-0400 Systolic blood pressure 150 mm[Hg] Dr. Deepika Fabian Work Phone: [facility] 02-12-2023 14:12-0400 Inhaled oxygen flow rate 2 L/min Dr. Deepika Fabian Work Phone: [facility] 02-09-2023 11:44-0400 Body height 154.[address] Deepika Fabian Work Phone: [facility] 02-09-2023 11:44-0400 Body weight 51.[address] Deepika Fabian Work Phone: [facility] 02-08-2023 14:03-0400 Body mass index (BMI) [Ratio] 21.4 kg/m2 Dr. Deepika Fabian Work Phone: [facility] 01-01-2023 11:34-0400 Body mass index (BMI) [Ratio] 20.2 kg/m2 Dr. Deepika Fabian Work Phone: [facility] 01-01-2023 11:34-0400 Body temperature 97.4 [degF] Dr. Deepika Fabian Work Phone: [facility] 01-01-2023 11:34-0400 Body weight 50.[address] Deepika Fabian Work Phone: [facility] 01-01-2023 11:34-0400 Diastolic blood pressure 82 mm[Hg] Dr. Deepika Fabian Work Phone: [facility] 01-01-2023 11:34-0400 Heart rate 77 /min Dr. Deepika Fabian Work Phone: [facility] 01-01-2023 11:34-0400 Respiratory rate 16 /min Dr. Deepika Fabian Work Phone: [facility] 01-01-2023 11:34-0400 SaO2% (BldA) [Mass fraction] 96 % Dr. Deepika Fabian Work Phone: [facility] 01-01-2023 11:34-0400 Systolic blood pressure 144 mm[Hg] Dr. Deepika Fabian Work Phone: [facility] 11-10-2022 16:48-0500 Diastolic blood pressure 68 mm[Hg] Dr. Vamsi Mota Work Phone: [facility] 11-10-2022 16:48-0500 Heart rate 83 /min Dr. Vamsi Mota Work Phone: [facility] 11-10-2022 16:48-0500 Respiratory rate 17 /min Dr. Vamsi Mota Work Phone: [facility] 11-10-2022 16:48-0500 Systolic blood pressure 119 mm[Hg] Dr. Vamsi Mota Work Phone: [facility] 11-10-2022 12:39-0500 SaO2% (BldA) [Mass fraction] 96 % Dr. Vamsi Mota Work Phone: [facility] 11-10-2022 10:40-0500 Body height 154.[address] Vamsi Mota Work Phone: [facility] 11-10-2022 10:40-0500 Body mass index (BMI) [Ratio] 21.7 kg/m2 Dr. Vamsi Mota Work Phone: [facility] 11-10-2022 10:40-0500 Body temperature 97.1 [degF] Dr. Vamsi Mota Work Phone: [facility] 11-10-2022 10:40-0500 Body weight 52.[address] Vamsi Mota Work Phone: [facility] 11-04-2022 11:00-0500 Body height 154.[address] Deepika Fabian Work Phone: [facility] 11-04-2022 11:00-0500 Body mass index (BMI) [Ratio] 21.7 kg/m2 Dr. Deepika Fabian Work Phone: [facility] 11-04-2022 11:00-0500 Body temperature 98.2 [degF] Dr. Deepika Fabian Work Phone: [facility] 11-04-2022 11:00-0500 Body weight 52.[address] Deepika Fabian Work Phone: [facility] 11-04-2022 11:00-0500 Diastolic blood pressure 57 mm[Hg] Dr. Deepika Fabian Work Phone: [facility] 11-04-2022 11:00-0500 Heart rate 83 /min Dr. Deepika Fabian Work Phone: [facility] 11-04-2022 11:00-0500 Respiratory rate 17 /min Dr. Deepika Fabian Work Phone: [facility] 11-04-2022 11:00-0500 SaO2% (BldA) [Mass fraction] 98 % Dr. Deepika Fabian Work Phone: [facility] 01-28-2023 11:00-0500 Systolic blood pressure 105 mm[Hg] Dr. Deepika Fabian Work Phone: [facility] 11-01-2022 18:16-0500 Diastolic blood pressure 52 mm[Hg] Dr. Deepika Fabian Work Phone: [facility] 11-01-2022 18:16-0500 Heart rate 81 /min Dr. Deepika Fabian Work Phone: [facility] 11-01-2022 18:16-0500 Respiratory rate 20 /min Dr. Deepika Fabian Work Phone: [facility] 11-01-2022 18:16-0500 SaO2% (BldA) [Mass fraction] 97 % Dr. Deepika Fabian Work Phone: [facility] 11-01-2022 18:16-0500 Systolic blood pressure 117 mm[Hg] Dr. Deepika Fabian Work Phone: [facility] 11-01-2022 14:19-0500 Body height 157.[address] Deepika Fabian Work Phone: [facility] 11-01-2022 14:19-0500 Body mass index (BMI) [Ratio] 19 kg/m2 Dr. Deepika Fabian Work Phone: [facility] 11-01-2022 14:19-0500 Body temperature 97.7 [degF] Dr. Deepika Fabian Work Phone: [facility] 11-01-2022 14:19-0500 Body weight 47.[address] Deepika Fabian Work Phone: [facility] 11-01-2022 08:33-0500 Body temperature 96.8 [degF] Dr. Deepika Fabian Work Phone: [facility] 11-01-2022 08:33-0500 Body weight 49.[address] Deepika Fabian Work Phone: [facility] 11-01-2022 08:33-0500 Diastolic blood pressure 66 mm[Hg] Dr. Deepika Fabian Work Phone: [facility] 11-01-2022 08:33-0500 Heart rate 88 /min Dr. Deepika Fabian Work Phone: [facility] 11-01-2022 08:33-0500 Respiratory rate 18 /min Dr. Deepika Fabian Work Phone: [facility] 11-01-2022 08:33-0500 SaO2% (BldA) [Mass fraction] 100 % Dr. Deepika Fabian Work Phone: [facility] 11-01-2022 08:33-0500 Systolic blood pressure 104 mm[Hg] Dr. Deepika Fabian Work Phone: [facility] 08-29-2022 16:26-0500 Body temperature 97 [degF] Dr. Deepika Fabian Work Phone: [facility] 08-29-2022 16:26-0500 Body weight 52.[address] Deepika Fabian Work Phone: [facility] 08-29-2022 16:26-0500 Diastolic blood pressure 76 mm[Hg] Dr. Deepika Fabian Work Phone: [facility] 08-29-2022 16:26-0500 Heart rate 56 /min Dr. Deepika Fabian Work Phone: [facility] 08-29-2022 16:26-0500 Respiratory rate 18 /min Dr. Deepika Fabian Work Phone: [facility] 08-29-2022 16:26-0500 SaO2% (BldA) [Mass fraction] 99 % Dr. Deepika Fabian Work Phone: [facility] 08-29-2022 16:26-0500 Systolic blood pressure 116 mm[Hg] Dr. Deepika Fabian Work Phone: [facility] 08-23-2022 13:20-0500 Body mass index (BMI) [Ratio] 20.2 kg/m2 Dr. Deepika Fabian Work Phone: [facility] 08-23-2022 13:20-0500 Body weight 51.[address] Deepika Fabian Work Phone: [facility] 08-23-2022 13:20-0500 Diastolic blood pressure 68 mm[Hg] Dr. Deepika Fabian Work Phone: [facility] 08-23-2022 13:20-0500 Heart rate 82 /min Dr. Deepika Fabian Work Phone: [facility] 08-23-2022 13:20-0500 Respiratory rate 16 /min Dr. Deepika Fabian Work Phone: [facility] 08-23-2022 13:20-0500 Systolic blood pressure 144 mm[Hg] Dr. Deepika Fabian Work Phone: [facility] 07-12-2022 16:28-0400 Body mass index (BMI) [Ratio] 20.3 kg/m2 Dr. Deepika Fabian Work Phone: [facility] 07-12-2022 16:28-0400 Body temperature 98.1 [degF] Dr. Deepika Fabian Work Phone: [facility] 07-12-2022 16:28-0400 Body weight 52.[address] Deepika Fabian Work Phone: [facility] 07-12-2022 16:28-0400 Diastolic blood pressure 68 mm[Hg] Dr. Deepika Fabian Work Phone: [facility] 07-12-2022 16:28-0400 Heart rate 83 /min Dr. Deepika Fabian Work Phone: [facility] 07-12-2022 16:28-0400 Respiratory rate 14 /min Dr. Deepika Fabian Work Phone: [facility] 07-12-2022 16:28-0400 SaO2% (BldA) [Mass fraction] 99 % Dr. Deepika Fabian Work Phone: [facility] 07-12-2022 16:28-0400 Systolic blood pressure 112 mm[Hg] Dr. Deepika Fabian Work Phone: [facility] 07-07-2022 11:19-0400 Diastolic blood pressure 71 mm[Hg] Dr. Deepika Fabian Work Phone: [facility] 07-07-2022 11:19-0400 Heart rate 86 /min Dr. Deepika Fabian Work Phone: [facility] 07-07-2022 11:19-0400 Respiratory rate 17 /min Dr. Deepika Fabian Work Phone: [facility] 07-07-2022 11:19-0400 SaO2% (BldA) [Mass fraction] 95 % Dr. Deepika Fabina Work Phone: [facility] 07-07-2022 11:19-0400 Systolic blood pressure 127 mm[Hg] Dr. Deepika Fabian Work Phone: [facility] 07-07-2022 08:18-0400 Body temperature 97.9 [degF] Dr. Deepika Fabian Work Phone: [facility] 07-07-2022 08:15-0400 Body mass index (BMI) [Ratio] 21.3 kg/m2 Dr. Deepika Fabian Work Phone: [facility] 07-07-2022 08:15-0400 Body weight 54.[address] Deepika Fabian Work Phone: [facility] 07-05-2022 15:03-0400 Body mass index (BMI) [Ratio] 22.8 kg/m2 Dr. Deepika Fabian Work Phone: [facility] 07-05-2022 15:03-0400 Body temperature 99 [degF] Dr. Deepika Fabian Work Phone: [facility] 07-05-2022 15:03-0400 Body weight 53.[address] Deepika Fabian Work Phone: [facility] 07-05-2022 15:03-0400 Diastolic blood pressure 90 mm[Hg] Dr. Deepika Fabian Work Phone: [facility] 07-05-2022 15:03-0400 Heart rate 65 /min Dr. Deepika Fabian Work Phone: [facility] 07-05-2022 15:03-0400 Respiratory rate 18 /min Dr. Deepika Fabian Work Phone: [facility] 07-05-2022 15:03-0400 SaO2% (BldA) [Mass fraction] 95 % Dr. Deepika Fabian Work Phone: [facility] 07-05-2022 15:03-0400 Systolic blood pressure 162 mm[Hg] Dr. Deepika Fabian Work Phone: [facility] 06-08-2022 08:46-0400 Body height 152.4 cm Dr. Vamsi Mota Work Phone: [facility] Work Phone: 06-08-2022 08:46-0400 Body mass index (BMI) [Ratio] 22.4 kg/m2 Dr. Vamsi Mota Work Phone: [facility] Work Phone: 06-08-2022 08:46-0400 Body temperature 98.4 [degF] Dr. Vamsi Mota Work Phone: [facility] Work Phone: 06-08-2022 08:46-0400 Body weight 52.[address] Vamsi Mota Work Phone: [facility] Work Phone: 06-08-2022 08:46-0400 Diastolic blood pressure 76 mm[Hg] Dr. Vamsi Mota Work Phone: [facility] Work Phone: 06-08-2022 08:46-0400 Heart rate 68 /min Dr. Vamsi Mota Work Phone: [facility] Work Phone: 06-08-2022 08:46-0400 Respiratory rate 14 /min Dr. Vamsi Mota Work Phone: [facility] Work Phone: 06-08-2022 08:46-0400 SaO2% (BldA) [Mass fraction] 95 % Dr. Vamsi Mota Work Phone: [facility] Work Phone: 06-08-2022 08:46-0400 Systolic blood pressure 130 mm[Hg] Dr. Vamsi Mota Work Phone: [facility] Work Phone: 05-25-2022 16:31-0400 Body mass index (BMI) [Ratio] 22.8 kg/m2 Dr. Vamsi Mota Work Phone: [facility] Work Phone: 05-25-2022 16:31-0400 Body temperature 98.4 [degF] Dr. Vamsi Mota Work Phone: [facility] Work Phone: 05-25-2022 16:31-0400 Body weight 53.[address] Vamsi Mota Work Phone: [facility] Work Phone: 05-25-2022 16:31-0400 Diastolic blood pressure 74 mm[Hg] Dr. Vamsi Mota Work Phone: [facility] Work Phone: 05-25-2022 16:31-0400 Heart rate 68 /min Dr. Vamsi Mota Work Phone: [facility] Work Phone: 05-25-2022 16:31-0400 Respiratory rate 14 /min Dr. Vamsi Mota Work Phone: [facility] Work Phone: 05-25-2022 16:31-0400 SaO2% (BldA) [Mass fraction] 99 % Dr. Vamsi Mota Work Phone: [facility] Work Phone: 05-25-2022 16:31-0400 Systolic blood pressure 136 mm[Hg] Dr. Vamsi Mota Work Phone: [facility] Work Phone: 05-04-2022 15:41-0400 Body height 152.[address] Vamsi Mota Work Phone: [facility] Work Phone: 05-04-2022 15:41-0400 Body mass index (BMI) [Ratio] 22 kg/m2 Dr. Vamsi Mota Work Phone: [facility] Work Phone: 05-04-2022 15:41-0400 Body temperature 98.6 [degF] Dr. Vamsi Mota Work Phone: [facility] Work Phone: 05-04-2022 15:41-0400 Body weight 51.[address] Vamsi Mota Work Phone: [facility] Work Phone: 05-04-2022 15:41-0400 Diastolic blood pressure 76 mm[Hg] Dr. Vamsi Mota Work Phone: [facility] Work Phone: 05-04-2022 15:41-0400 Heart rate 81 /min Dr. Vamsi Mota Work Phone: [facility] Work Phone: 05-04-2022 15:41-0400 Respiratory rate 14 /min Dr. Vamsi Mota Work Phone: [facility] Work Phone: 05-04-2022 15:41-0400 SaO2% (BldA) [Mass fraction] 97 % Dr. Vamsi Mota Work Phone: [facility] Work Phone: 05-04-2022 15:41-0400 Systolic blood pressure 136 mm[Hg] Dr. Vamsi Mota Work Phone: [facility] Work Phone: 03-02-2022 13:25-0400 Body height 152.[address] Vamsi Mota Work Phone: [facility] Work Phone: 03-02-2022 13:25-0400 Body mass index (BMI) [Ratio] 23 kg/m2 Dr. Vamsi Mota Work Phone: [facility] Work Phone: 03-02-2022 13:25-0400 Body temperature 97.9 [degF] Dr. Vamsi Mota Work Phone: [facility] Work Phone: 03-02-2022 13:25-0400 Body weight 53.[address] Vamsi Mota Work Phone: [facility] Work Phone: 03-02-2022 13:25-0400 Diastolic blood pressure 80 mm[Hg] Dr. Vamsi Mota Work Phone: [facility] Work Phone: 03-02-2022 13:25-0400 Heart rate 81 /min Dr. Vamsi Mota Work Phone: [facility] Work Phone: 03-02-2022 13:25-0400 Respiratory rate 16 /min Dr. Vamsi Mota Work Phone: [facility] Work Phone: 03-02-2022 13:25-0400 SaO2% (BldA) [Mass fraction] 99 % Dr. Vamsi Mota Work Phone: [facility] Work Phone: 03-02-2022 13:25-0400 Systolic blood pressure 118 mm[Hg] Dr. Vamsi Mota Work Phone: [facility] Work Phone: 02-24-2022 11:00-0400 Body height 152.4 cm Harris Mota MD Work Phone: [facility] 02-24-2022 11:00-0400 Body weight 52.48 kg Harris Mota MD Work Phone: [facility] 02-24-2022 11:00-0400 Diastolic blood pressure 68 mm[Hg] Harris Mota MD Work Phone: [facility] 02-24-2022 11:00-0400 Heart rate 69 /min Harris Mota MD Work Phone: [facility] 02-24-2022 11:00-0400 Systolic blood pressure 134 mm[Hg] Harris Mota MD Work Phone: [facility] 02-22-2022 11:37-0400 Body mass index (BMI) [Ratio] 21.7 kg/m2 Dr. Vamsi Mota Work Phone: [facility] Work Phone: 02-22-2022 11:37-0400 Body weight 52.[address] Vamsi Mota Work Phone: [facility] Work Phone: 02-22-2022 11:37-0400 Diastolic blood pressure 67 mm[Hg] Dr. Vamsi Mota Work Phone: [facility] Work Phone: 02-22-2022 11:37-0400 Heart rate 60 /min Dr. Vamsi Mota Work Phone: [facility] Work Phone: 02-22-2022 11:37-0400 Respiratory rate 16 /min Dr. Vamsi Mota Work Phone: [facility] Work Phone: 02-22-2022 11:37-0400 SaO2% (BldA) [Mass fraction] 100 % Dr. Vamsi Mota Work Phone: [facility] Work Phone: 02-22-2022 11:37-0400 Systolic blood pressure 135 mm[Hg] Dr. Vamsi Mota Work Phone: [facility] Work Phone: 02-17-2022 11:20-0400 Body temperature 97.81 [degF] Sanju White MD Work Phone: [facility] 02-17-2022 11:20-0400 Diastolic blood pressure 64 mm[Hg] Sanju White MD Work Phone: [facility] 02-17-2022 11:20-0400 Heart rate 59 /min Sanju White MD Work Phone: [facility] 02-17-2022 11:20-0400 Respiratory rate 16 /min Sanju White MD Work Phone: [facility] 02-17-2022 11:20-0400 SaO2% (BldA) [Mass fraction] 96 % Sanju White MD Work Phone: [facility] 02-17-2022 11:20-0400 Systolic blood pressure 144 mm[Hg] Sanju White MD Work Phone: [facility] 02-17-2022 08:51-0400 Body height 154.9 cm Sanju White MD Work Phone: [facility] 02-17-2022 08:51-0400 Body mass index (BMI) [Ratio] 21.96 kg/m2 Sanju White MD Work Phone: [facility] 02-17-2022 08:51-0400 Body weight 52.7 kg Sanju White MD Work Phone: [facility] 02-15-2022 18:00-0400 Diastolic blood pressure 85 mm[Hg] [facility] Work Phone: 02-15-2022 18:00-0400 Heart rate 62 /min [facility] Work Phone: 02-15-2022 18:00-0400 Respiratory rate 18 /min [facility] Work Phone: 02-15-2022 18:00-0400 SaO2% (BldA) [Mass fraction] 98 % [facility] Work Phone: 02-15-2022 18:00-0400 Systolic blood pressure 147 mm[Hg] [facility] Work Phone: 02-15-2022 15:40-0400 Body height 154.99 cm [facility] Work Phone: 02-15-2022 15:40-0400 Body mass index (BMI) [Ratio] 23.6 kg/m2 [facility] Work Phone: 02-15-2022 15:40-0400 Body weight 56.6 kg [facility] Work Phone: 02-15-2022 15:26-0400 Body temperature 97.8 [degF] [facility] Work Phone: Encounters Encounter Date Encounter Type Care Provider Facility Start: 08-02-2025 ambulatory Deepika Caren Facility :[facility] Start: 08-02-2025 End: 08-15-2025 Evaluation and management of inpatient Deepika Caren Facility:[facility] Start: 07-31-2025 ambulatory Jody Moffett Facility:[facility] Start: 07-31-2025 End: 08-02-2025 Evaluation and management of inpatient Jody Moffett Facility:[facility] Start: 07-31-2025 ambulatory Deepika Caren Facility :[facility] Start: 07-30-2025 ambulatory Jody Moffett Facility:[facility] Start: 06-29-2025 End: 06-29-[address] Deepika Fabian MD -[facility] Work Phone: Start: 06-29-2025 End: 06-29-[address] Deepika Fabian MD Work Phone: -[facility] Start: 04-07-2025 Non-patient / Non-visit Dr. Yana Fulton MD -[facility] Work Phone: Start: 03-31-2025 End: 03-31-[address] Deepika Fabian MD Work Phone: -[facility] Start: 03-31-2025 End: 03-31-[address] Deepika Fabian MD -[facility] Start: 03-31-2025 End: 03-31-[address] Deepika Fabian MD -[facility] Work Phone: Start: 03-31-2025 End: 03-31-[address] Deepika Fabian MD Work Phone: [facility] Work Phone: Start: 03-31-2025 End: 03-31-2025 ambulatory Deepika Fabian Facility:[facility] Start: 01-28-2025 End: 01-28-2025 Patient encounter procedure Emma FUENTES -[facility] Work Phone: Start: 01-28-2025 End: 01-28-2025 ambulatory Deepika Fabian Facility:[facility] Start: 01-28-2025 End: 01-28-[address] Deepika Fabian MD -[facility] Work Phone: Start: 01-28-2025 End: 01-28-[address] Deepika Fabian MD Work Phone: [facility] Work Phone: Start: 01-28-2025 End: 01-28-2025 ambulatory Deepika Fabian Facility:[facility] Start: 11-13-2024 End: 11-13-2024 Patient encounter procedure Emma Pitts [place] -[facility] Work Phone: Start: 11-13-2024 End: 11-13-2024 ambulatory Deepika Fabian Facility:[facility] Start: 11-13-2024 End: 11-13-[address] Deepika Fabian MD -[facility] Work Phone: Start: 11-13-2024 End: 11-13-2024 ambulatory Deepika Fabian Facility:[facility] Start: 09-29-2023 End: 09-29-2023 Emergency department patient visit Dr. Deepika Fabian Work Phone: [facility]-Emergency Department Work Phone: Start: 09-13-2023 End: 09-13-[address] Deepika Fabian Work Phone: [facility] Work Phone: Start: 07-31-2023 End: 07-31-[address] Deepika Fabian Work Phone: [facility] Work Phone: Start: 07-10-2023 End: 07-10-[address] Deepika Fabian Work Phone: [facility] Work Phone: Start: 06-27-2023 End: 06-27-[address] Deepika Fabian Work Phone: [facility]-Laboratory, Specimen Work Phone: Start: 06-27-2023 End: 06-27-[address] [facility] Work Phone: Start: 04-24-2023 End: 04-24-[address] Deepika Fabian Work Phone: [facility] Work Phone: Start: 04-24-2023 End: 04-24-[address] Deepika Fabian Work Phone: [facility]-Ultrasound, [facility] Work Phone: Start: 04-17-2023 End: 04-17-[address] Deepika Fabian Work Phone: [facility] Work Phone: Start: 04-04-2023 ambulatory Grace Ryder [facility] Comment on above: Population Health Na [facility] Out[facility] Start: 03-29-2023 End: 03-29-[address] Deepika Fabian Work Phone: [facility]astroenter[facility] Work Phone: Start: 03-15-2023 End: 03-15-[address] Deepika Fabian Work Phone: [facility] Internal Medicine Start: 03-01-2023 End: 03-01-[address] Deepika Fabian Work Phone: [facility] Work Phone: Start: 03-01-2023 End: 03-01-[address] Deepika Fabian Work Phone: [facility]-Laboratory, [place] Start: 03-01-2023 End: 03-01-[address] Deepika Fabian Work Phone: [facility] Internal Medicine Start: 03-01-[address] Deepika Fabian Work Phone: [facility] Start: 02-22-2023 End: 02-22-[address] Deeipka Fabian Work Phone: [facility] Work Phone: Start: 02-20-2023 End: 02-20-[address] Deepika Fabian Work Phone: [facility] Work Phone: Start: 02-15-[address] Deepika Fabian Work Phone: [facility] Start: 02-14-2023 End: 02-14-[address] Deepika Fabian Work Phone: [facility] Work Phone: Start: 02-13-2023 Non-patient / Non-visit Dr. Deepika Fabian Work Phone: [facility] Inpatient Physicians Start: 02-12-2023 Non-patient / Non-visit Dr. Deepika Fabian Work Phone: [facility] Start: 02-11-2023 Non-patient / Non-visit Dr. Deepika Fabian Work Phone: [facility] Start: 02-10-2023 End: 02-10-2023 Non-patient / Non-visit Dr. Deepika Fabian Work Phone: [facility] Heart Group Start: 02-10-2023 Non-patient / Non-visit Dr. Deepika Fabian Work Phone: [facility] Start: 02-09-2023 Non-patient / Non-visit Dr. Deepika Fabian Work Phone: [facility] Start: 02-08-2023 Non-patient / Non-visit Dr. Deepika Fabian Work Phone: [facility] Start: 02-08-2023 End: 02-13-2023 Evaluation and management of inpatient Dr. Deepika Fabian Work Phone: [facility] Start: 01-01-2023 End: 01-01-[address] Deepika Fabian Work Phone: [facility] Start: 12-11-2022 End: 12-11-[address] Vamsi Mota Work Phone: [facility] Work Phone: Start: 12-11-2022 End: 12-11-[address] [facility] Start: 12-08-2022 End: 12-08-[address] Vamsi Mota Work Phone: [facility]-Laboratory Start: 12-08-2022 End: 12-08-[address] Vamsi Mota Work Phone: [facility] Gastroenterology Start: 11-13-2022 End: 11-13-[address] Vamsi Mota Work Phone: [facility] Work Phone: Start: 11-13-2022 End: 11-13-[address] Vamsi Mota Work Phone: [facility]-Laboratory, [facility] Start: 11-13-2022 Non-patient / Non-visit Dr. Vamsi Mota Work Phone: [facility] Start: 11-10-2022 End: 11-10-2022 Emergency department patient visit Dr[facility]ams[facility] Start: 11-04-2022 End: 11-04-2022 Emergency department patient visit Dr. Deepika Faiban [facility] Start: 11-01-2022 End: 11-01-2022 Emergency department patient visit Dr. Deep[facility] Fabian [facility] Start: 11-01-2022 End: 11-01-[address] Deepika Fabian Work Phone: [facility] Radiology Start: 11-01-2022 End: 11-01-[address] Deepika Fabian Work Phone: [facility] Internal Medicine Start: 08-29-2022 End: 08-29-[address] Deepika Fabian Work Phone: [facility] Internal Medicine Start: 08-23-2022 End: 08-23-[address] Deepika Fabian Work Phone: [facility] Heart Group Start: 07-19-2022 Refill Harris hutchinson MD Work Phone: Family Practice Comment on above: Refill Request Start: 07-12-2022 End: 07-12-[address] Deepika Fabian Work Phone: [facility] Internal Medicine Start: 07-07-2022 End: 07-07-2022 Emergency department patient visit Dr. Deepika Fabian Work Phone: [facility]-Emergency Department Start: 07-05-2022 End: 07-05-[address] Deepika Fabian Work Phone: [facility] Internal [facility] Start: 06-22-2022 End: 06-22-[address] Vamsi Mota Work Phone: [facility] Work Phone: Start: 06-22-2022 End: 06-22-[address] Vamsi Mota Work Phone: [facility]-Cat Scan, [facility] Start: 06-08-2022 End: 06-08-[address] Vamsi Mota Work Phone: [facility] Work Phone: Start: 06-08-2022 End: 06-08-[address] Vamsi Mota Work Phone: [facility] Internal [facility] Start: 05-25-2022 End: 05-25-[address] Vamsi Mota Work Phone: [facility] Internal [facility] Start: 05-10-2022 Telephone encounter Harris Mota MD Work Phone: [facility] Comment on above: Outside Lab Results ([facility]) Start: 05-08-2022 Telephone encounter Harris Mota MD Work Phone: [facility] Comment on above: Outside Lab Results ([facility]) Start: 05-08-2022 End: 05-08-[address] Vamsi Mota Work Phone: [facility]-Laboratory, [place] Start: 05-04-2022 End: 05-04-[address] Vamsi Mota Work Phone: [facility] Internal Medicine Start: 04-07-2022 Telephone encounter Harris Mota MD Work Phone: [facility] Comment on above: Received Outside Med ical Records ([facility] discharge summary candle wicker 04/06/2022) Start: 04-05-2022 End: 04-05-[address] Vamsi Mota Work Phone: [facility]-Speech Therapy Start: 03-20-2022 Telephone encounter Harris Mota MD Work Phone: Family Practice Comment on above: Received Outside Med ical Records ([facility] neurology) Start: 03-16-2022 ambulatory DEBBIEGAEL MARTE [facility] Start: 03-07-2022 Telephone encounter Harris Mota MD Work Phone: Family Practice Comment on above: Orders (reviewed and signed by PCP and faxed back to [facility] occupational therapy. ) Start: 03-02-2022 Telephone encounter Harris Mota MD Work Phone: Family Practice Comment on above: Received Outside Med ical Records ([facility] rehab services) Start: 03-02-2022 End: 03-02-[address] Vamsi Mota Work Phone: [facility] Internal Medicine Start: 02-28-2022 Telephone encounter Harris Mota MD Work Phone: Family Practice Comment on above: Received Outside Med ical Records (from [facility] (speech therapy eval)) Start: 02-24-2022 End: 02-24-2022 Patient encounter procedure Harris Mota MD Work Phone: Family Practice Comment on above: Acute ischemic right MCA stroke (HCC) (Primary Dx); Paroxysmal atrial fibrillation (HCC) Start: 02-22-2022 Telephone encounter Harris Mota MD Work Phone: Family Practice Comment on above: Patient Update ([facility]) Start: 02-22-2022 End: 02-22-[address] Vamsi Mota Work Phone: [facility] Start: 02-16-2022 Telephone encounter Harris Mota MD Work Phone: [facility] Comment on above: Received Outside Med ical Records (ED summary, imaging, and labs from [facility]) Received Outside Med ical Records (EKG from [facility]) Start: 02-15-2022 End: 02-17-2022 Evaluation and management of inpatient VIRAJ GARIBAY Facility:[facility] Start: 02-15-2022 End: 02-17-2022 Evaluation and management of inpatient Sanju White MD Work Phone: [id number] Comment on above: Stroke Start: 02-15-2022 End: 02-15-2022 Emergency department patient visit [facility]-Emergency Department Start: 10-28-2021 End: 10-28-2021 Patient encounter procedure [facility]-Laboratory, OP Pavilion Start: 08-26-2020 End: 08-26-2020 Subsequent hospital visit by physician [facility] Work Phone: Radiology Comment on above: [...] angiography of he ad and neck Start: 02-15-2022 Plain chest X-ray Start: 02-15-2022 CT cervical [...] Enteric Bacteriology Dr. Ray Fabian Work Phone: Lactoferrin measurement Dr. Vamsi Mota Work Phone: Nucleic acid assay Dr. Mamta Fabian Work Phone: Nucleic acid assay Dr. Mamta Fabian Work Phone: Urine culture Dr. Deepika rivera Work Phone: Plan of Treatment Date Care Activity Detail Author Start: 03-31-2025 CBC W Auto Different ial panel - Blood [facility] Start: 03-31-2025 Cobalamin (Vitamin B 12) [Mass/volume] in Serum or Plasma [facility] Start: 03-31-2025 Comprehensive metabo lic 2000 panel - Serum or Plasma [facility] Start: 03-31-2025 Lipid 1996 panel - S mundo or Plasma [facility] Start: 03-31-2025 Vitamin D, 25-hydrox y measurement [facility] Start: 02-17-2025 Diabetes Screening Diabetes Screenin g [facility] Start: 02-16-2025 DIABETES SCREEN DIABETES SCREEN [facility] Start: 01-28-2025 Patient referral [facility] Work Phone: Start: 08-08-2024 DIABETES SCREEN DIABETES SCREEN [facility] Start: 06-08-2024 Covid-19 Vaccine ( season) Covid-19 Vaccine () [facility] Start: 06-08-2024 Influenza vaccination Influenz a Vaccine (#1) [facility] Start: 10-08-2023 Advance Directive Discussion Advance Directive Discussion [facility] Start: 09-29-2023 Admission procedure [facility] Start: 09-29-2023 [facility] Start: 03-15-2023 Patient referral [facility] Work Phone: Start: 02-13-2023 Patient discharge [facility] Start: 02-10-2023 Referral to activities coordinator [facility] Start: 02-09-2023 Referral to service [facility] Start: 02-08-2023 End: 02-09-2023 [facility] Start: 02-08-2023 Following clinical p athway protocol [facility] Start: 02-08-2023 Ambulation without limitation [facility] Start: 02-08-2023 Assessment of risk o f venous thromboembolism [facility] Start: 02-08-2023 Inhalation therapy procedure [facility] Start: 02-08-2023 Insertion of cathete r into peripheral vein [facility] Start: 02-08-2023 Notification of physician [facility] Start: 02-08-2023 Oxygen therapy [facility] Start: 02-08-2023 Providing care accor ding to standard [facility] Start: 02-08-2023 Provision of activit y privileges [facility] Start: 02-08-2023 Referral to occupati onal therapist [facility] Start: 02-08-2023 Referral to service [facility] Start: 02-08-2023 Vital signs measurements [facility] Start: 02-08-2023 Admission procedure [facility] Start: 02-08-2023 Patient referral to dietitian [facility] Start: 02-08-2023 [facility] Start: 12-11-2022 Elastase, pancreatic (el-1), fecal; quantitative [facility] Start: 12-11-2022 Fat [Presence] in Stool [facility] Start: 12-11-2022 Protein measurement [facility] Start: 12-08-2022 Immunoglobulin measurement [facility] Start: 12-08-2022 Procedure [facility] Start: 12-08-2022 Serum immunofixation [facility] Start: 12-08-2022 [facility] Start: 11-01-2022 Giardia lamblia Ag [Presence] in Stool by Immunoassay [facility] Start: 11-01-2022 Protein measurement [facility] Start: 10-08-2022 ADVANCE DIRECTIVE DISCUSSION ADVANCE DIRECTIVE DISCUSSION [facility] Start: 10-08-2022 DEPRESSION ASSESSMENT DEPRESSION ASS ESSMENT [facility] Start: 07-07-2022 [facility] Start: 06-19-2022 End: 06-19-2022 Patient encounter procedure 06/19/2022 Office Visit Pharmacy Yolis Floyd MD [address] [place] [address] [facility] Start: 06-08-2022 Influenza vaccination INFLUENZA (#1) [facility] Start: 03-16-2022 End: 03-16-2022 Patient encounter procedure 03/16/2022 Office Visit Neurology Debbie Marte, QA SOFTWARE TEST ENGINEER-PEST CONTROL TECHNICIAN [address] [facility] [address] [place] [id number] [facility] Start: 02-12-2022 COVID-19 VACCINE (4 - Booster for Moderna series) COVID-19 VACCINE (4 - Booster for Moderna series) [facility] Start: 12-10-2021 COVID-19 VACCINE (4 - Booster for Moderna series) COVID-19 VACCINE (4 - Booster for Moderna series) [facility] Start: 10-08-2021 ADVANCE DIRECTIVE DISCUSSION ADVANCE DIRECTIVE DISCUSSION [facility] Start: 10-08-2021 DEPRESSION ASSESSMENT DEPRESSION ASS ESSMENT [facility] Start: 05-19-2021 COVID-19 VACCINE (3 - Booster for Moderna series) COVID-19 VACCINE (3 - Booster for Moderna series) [facility] Start: 2012 RSV Vaccine (1 - 1-d ose 75+ series) RSV Vaccine (1 - 1-dose 75+ series) [facility] Start: 07-13-2007 Tetanus vaccination TETANUS [facility] Start: 1982 Colonoscopy COLORECTAL CAN CER SCREENING DISCUSSION [facility] Start: 1977 Screening mammography MAMMOGRA M SCREENING DISCUSSION [facility] Start: 1958 Screening for malign ant neoplasm of cervix CERVICAL CANCER SCREENING DISCUSSION [facility] Start: 1956 Third diphtheria, te tanus and acellular pertussis (DTaP) vaccination TDAP (ADULT) [facility] Start: 1956 Urine microalbumin profile [facility] Start: 1955 Depression Screening Depression Scre ening [facility] Start: 1942 COVID-19 VACCINE (#1) COVID-19 VACCI NE (#1) [facility] Start: 1937 Screening for osteoporosis DEXA SCAN DISCUSSION [facility] Alanine aminotransfe rase [Enzymatic activity/volume] in Serum or Plasma [facility] Albumin [Mass/volume ] in Serum or Plasma [facility] Albumin [Moles/volum e] in Serum or Plasma [facility] Albumin/Globulin ratio [facility] Alkaline phosphatase [Enzymatic activity/volume] in Serum or Plasma [facility] Anion gap in Serum o r Plasma [facility] Bilirubin, total measurement [facility] BUN/Creatinine ratio [facility] Calcium [Mass/volume ] in Serum or Plasma [facility] Carbon dioxide, tota l [Moles/volume] in Central venous blood [facility] Cholesterol [Mass/vo lume] in Serum or Plasma [facility] Cholesterol in HDL [Mass/volume] in Serum or Plasma [facility] Creatinine [Mass/vol ume] in Serum or Plasma [facility] CT Unspecified body region [facility] Work Phone: Electrophoresis: [id number] [facility] Electrophoresis: lyric ma globulin [facility] Erythrocyte mean corpuscular volume determination [facility] Fat [Mass/mass] in Stool [facility] Fat.neutral [Presenc e] in Stool [facility] Globulin measurement [facility] Glucose [Mass/volume ] in Serum or Plasma [facility] GOLD TOP TUBE GOLD TOP TUBE La b Routine 02/15/2022 9:45 PM EDT [facility] Hematocrit [Volume Fraction] of Blood [facility] Hemoglobin [Mass/vol ume] in Blood [facility] IgA [Mass/volume] in Serum or Plasma [facility] IgE [Units/volume] i n Serum or Plasma [facility] IgG [Mass/volume] in Serum or Plasma [facility] IgM [Mass/volume] in Serum or Plasma [facility] LAVENDER TOP TUBE LAVENDER TOP T UBE Lab Routine 02/15/2022 9:45 PM EDT [facility] Leukocytes [#/volume ] in Blood [facility] Low density lipoprot ein cholesterol measurement [facility] Mean corpuscular hemoglobin concentration determination [facility] Mean corpuscular hemoglobin determination [facility] Measurement of renal function [facility] Neutrophil count [facility] Neutrophil cytoplasm ic Ab.classic [Units/volume] in Serum [facility] Neutrophil percent differential count [facility] P-ANCA measurement [facility] Patient Education [facility] Work Phone: Patient referral [facility] Work Phone: Platelets [#/volume] in Blood [facility] Potassium measurement [facility] Protein electrophore sis panel - Serum or Plasma [facility] Protein measurement [facility] RAINBOW DRAW RAINBOW DRAW Lab Routine 02/15/2022 9:45 PM EDT [facility] Red blood cell count [facility] Red cell distributio n width determination [facility] Serum chloride measurement [facility] Serum protein electrophoresis [facility] Sodium measurement [facility] End: 02-15-2022 Standard ECG [facility] Comment on above: One Time for 1 Occur rences starting 02/15/2022 until 02/15/2022 End: 02-16-2022 Standard ECG ECG ECG Routine One Time for 1 Occurrences starting 02/16/2022 until 02/16/2022 [facility] Comment on above: One Time for 1 Occur rences starting 02/16/2022 until 02/16/2022 Total cholesterol:HD L ratio measurement [facility] Total protein measurement [facility] Triglycerides measurement [facility] Urea nitrogen [Mass/volume] in Serum or Plasma [facility] VLDL cholesterol measurement [facility] Immunizations Immunization Date Immunization Notes Care Provider Rosalio ortiz 06-29-2025 Seasonal trivalent influenza vaccine, adjuvanted, preservative free Dr. Deepika Fabian MD Work Phone: [facility] 07-10-2023 influenza, injectabl e, quadrivalent, preservative free Dr. Deepika Fabian Work Phone: [facility] 04-17-2023 tetanus toxoid, redu polly diphtheria toxoid, and acellular pertussis vaccine, adsorbed Dr. Deepika Fabian Work Phone: [facility] 06-30-2022 Influenza High-Dose Quadrivalent Dr. Deepika Fabian Work Phone: [facility] 06-30-2022 Influenza, high dose seasonal Dr. Deepika Fabian MD Work Phone: [facility] 06-30-2022 influenza, high dose seasonal, preservative-free Dr. Deepika Fabian Work Phone: [facility] 06-30-2022 influenza virus vacc ine, unspecified formulation Xr [place] Work Phone: [facility] 10-15-2021 Covid (Moderna) Dr. Vamsi Mota Work Phone: [facility] 08-17-2021 Influenza, high dose seasonal Dr. Deepika Fabian MD Work Phone: [facility] 08-17-2021 influenza, high dose seasonal, preservative-free Dr. Vamsi Mota Work Phone: [facility] 08-17-2021 influenza, high-dose , quadrivalent vaccine (FLUZONE HIGH DOSE QUADRIVALENT) Harris Mota MD Work Phone: [facility] 12-17-2020 Covid (Moderna) [facility] 11-19-2020 Covid (Moderna) [facility] 08-23-2020 Influenza, high dose seasonal Dr. Deepika Fabian MD Work Phone: [facility] 08-23-2020 influenza, high dose seasonal, preservative-free Dr. Vamsi Mota Work Phone: [facility] 08-23-2020 influenza, high-dose , quadrivalent vaccine (FLUZONE HIGH DOSE QUADRIVALENT) Harris Mota MD Work Phone: [facility] 08-25-2019 Influenza, high dose seasonal Dr. Deepika Fabian MD Work Phone: [facility] 08-25-2019 influenza, high dose seasonal, preservative-free Harris Mota MD Work Phone: [facility] 07-11-2019 zoster vaccine recombinant Harris Mota MD Work Phone: [facility] 07-10-2019 zoster vaccine recombinant Harris Mota MD Work Phone: [facility] 05-04-2019 zoster vaccine recombinant Harris Mota MD Work Phone: [facility] 08-05-2018 Influenza, high dose seasonal Dr. Deepika Fabian MD Work Phone: [facility] 08-05-2018 influenza, high dose seasonal, preservative-free Harris Mota MD Work Phone: [facility] 07-20-2017 Influenza, high dose seasonal Dr. Deepika Fabian MD Work Phone: [facility] 07-20-2017 influenza, high dose seasonal, preservative-free Harris Mota MD Work Phone: [facility] 07-31-2016 Influenza, high dose seasonal Dr. Deepika Fabian MD Work Phone: [facility] 07-31-2016 influenza, high dose seasonal, preservative-free Harris Mota MD Work Phone: [facility] 07-31-2016 pneumococcal conjuga te vaccine, 13 valent Harris Mota MD Work Phone: [facility] 07-07-2014 influenza, injectabl e, quadrivalent, preservative free Dr. Deepika Fabian Work Phone: [facility] 07-07-2014 influenza, seasonal, injectable Harris Mota MD Work Phone: [facility] 07-20-2013 influenza virus vacc ine, unspecified formulation Harris Mota MD Work Phone: [facility] 07-22-2012 influenza virus vacc ine, unspecified formulation Harris Mota MD Work Phone: [facility] 07-11-2011 influenza virus vacc ine, unspecified formulation Harris Mota MD Work Phone: [facility] 07-22-2010 influenza virus vacc ine, unspecified formulation Harris Mota MD Work Phone: [facility] Work Phone: 08-20-2007 influenza virus vacc ine, whole virus Harris Mota MD Work Phone: [facility] 08-20-2007 influenza, injectabl e, quadrivalent, preservative free Dr. Deepika Fabian Work Phone: [facility] 08-20-2007 influenza, seasonal, injectable Dr. Vamsi Mota Work Phone: [facility] 07-22-2005 pneumococcal polysaccharide vaccine, 23 valent Harris Mota MD Work Phone: [facility] Work Phone: 07-13-1997 tetanus toxoid, adsorbed Travis shruti Mota MD Work Phone: [facility] Payers Date Payer Category Payer Self-pay [id number] 2021 Unknown [id number] 2021 Unknown AARP AARP [id number] 2021-Present [address] [place] [address] [id number] 2015 Private Health Insurance [facility] AARP SUPPLEMENT [id number] 2015-Present [phone] [address] [place] [address] Indemnity [id number] 2015 Private Health Insurance [facility] AARP SUPPLEMENT [id number] 2015-Present [phone] [address] [place] [address] Indemnity [id number] 2002 Medicare [id number] 2002 Medicare MEDICARE MEDICAR E A AND B [id number] 2002-Present [phone] [place] [address] Medicare [id number] 2002 Medicare [id number] 1937 Unknown [id number] .594 1937 Unknown [id number] 2.840.1.558623.3.579.2 .594 Unknown [id number] 2.16.840.1.009462.3.579.2 .462 Unknown [id number] 2.16840.1.595929.3.579.2 .462 Unknown [id number] .462 Unknown [id number] 2.16.840.1.396906.3.579.2 .462 Unknown [id number] 2.16.840.1.460902.3.579.2 .462 Unknown [id number] 2.16.840.1.731092.3.579.2 .462 Unknown [id number] 2.16.840.1.523596.3.579.2 .462 Unknown [id number] 2.16.840.1.653769.3.579.2 .462 Unknown [id number] 2.16.840.1.365848.3.579.2 .462 Unknown [id number] 2.16.840.1.155686.3.579.2 .462 Unknown [id number] 2.16.840.1.667884.3.579.2 .462 Unknown [id number] 2.16.840.1.469368.3.579.2 .462 Unknown [id number] 2.16.840.1.163370.3.579.2 .462 Unknown [id number] 2.16.840.1.482043.3.579.2 .462 Unknown [id number] 2.16.840.1.340248.3.579.2 .462 Unknown [id number] 2.16.840.1.061916.3.579.2 .462 Unknown [id number] 2.16.840.1.598927.3.579.2 .462 Unknown [id number] 2.16.840.1.246945.3.579.2 .462 Unknown [id number] 2.16.840.1.260743.3.579.2 .462 Unknown [id number] 2.16840.1.303232.3.579.2 .462 Unknown [id number] 2.16.840.1.599083.3.579.2 .462 Social History Date Type Detail Facility Start: 02-15-2022 End: 09-29-2023 Tobacco smoking status NHIS Unknown if ever smoked [facility] Start: 1935 Sex Assigned At Female [facility] Start: 10-10-2012 End: 03-31-2025 Tobacco smoking status NHIS Never smoked tobacco [facility] Start: 08-23-2020 End: 08-17-2021 Alcohol intake Current drinker of alcohol (finding) [facility] Start: 05-26-2021 History SDOH Alcohol Frequency 2 [facility] Start: 05-26-2021 History SDOH Alcohol Std Drinks 1 [facility] Start: 05-26-2021 History SDOH Social Connections Phone 5 [facility] Start: 05-26-2021 History SDOH Social Connections Get Together 3 [facility] Start: 05-26-2021 History SDOH Social Connections Living 4 [facility] Start: 05-26-2021 History SDOH Physica l Activity DPW 6 [facility] Start: 05-26-2021 Education 21 [facility] Start: 1935 Sex Assigned At Not on file [facility] Start: 07-27-2020 End: 02-24-2022 Exposure to SARS-CoV-2 (event) Not sure [facility] Start: 10-10-2012 Tobacco use and exposure Smoke less tobacco non-user [facility] Start: 08-05-2018 End: 08-23-2020 History of Social function [facility] Start: 08-05-2018 End: 08-23-2020 Tobacco use panel [facility] Adult Depression Screening Assessment 0 [facility] Start: 02-02-2025 Sex Female (finding) [facility] Goals Date Patient Goal Desired Activity /State Functional Status Date Assessment Result Facility 02-13-2023 Functional status Ambulates;Aidan r;Bathroom Privilege [facility] Work Phone: Mental Status Date Assessment Result Facility 09-29-2023 Cognitive function Voice/Name [facility] Work Phone: 02-13-2023 Cognitive function Voice/Name [facility] Work Phone: 11-01-2022 Cognitive function Level Of Cons ciousness Awake;Alert;Appropriate;Follow s Commands [facility] Work Phone: 07-07-2022 Cognitive function Level Of Cons ciousness Awake;Alert;Appropriate;Follow s Commands [facility] Work Phone: 02-15-2022 Cognitive function Voice/Name [facility] Work Phone: Clinical Notes 08-26-2020 to 08-14-2025 Note Date & Type Note Facility 08-14-2025 Note [facility] Medical Records Department [address] [place] [address] Discharge Summary 08/14/25 1153 MR#: [id number] Acct: [id number] Name: DEA MERRITT Rep #: [id number] : 1935 89 From: Nicole Mei DO PCP: Dr. Deepika Fabian MD Status:ADM IN Location: [address] Date of Admission: 08/02/25 Date of Discharge: 08/15/25 Primary Care Physician: Dr. Deepika Fabian MD none Reason For Visit: CVA Diagnosis Discharge Diagnosis (1) Debility: Status: Acute Code(s): R53.81 - Other malaise (2) Ischemic cerebrovascular accident (CVA): Status: Acute Code(s): I63.9 - Cerebral infarction, unspecified Plan: MRI showed foci of restricted diffusion in the left external capsule and fairbanks radiata consistent with acute infarction on 07/31/2025. (3) Longstanding persistent atrial fibrillation: Status: Chronic Code(s): I48.11 - Longstanding persistent atrial fibrillation (4) Facial droop: Status: Acute Code(s): R29.810 - Facial weakness (5) Dysarthria: Status: Resolved Code(s): R47.1 - Dysarthria and anarthria (6) Cognitive dysfunction: Status: Chronic Code(s): F09 - Unspecified mental disorder due to known physiological condition Plan: Acute confusion on chronic dementia. Only scored 20 out of a possible 50 on the brief cognitive assessment. (7) Complicated urinary tract infection: Status: Acute Code(s): N39.0 - Urinary tract infection, site not specified Plan: Secondary to Proteus mirabilis. UTI associated with acute mental status changes/delirium. (8) Urinary incontinence: Status: Chronic Code(s): R32 - Unspecified urinary incontinence Qualifiers: Urinary Incontinence type: unspecified incontinence Qualified Code(s): R32 - Unspecified urinary incontinence Plan: Occasional......exacerbated by UTI recently. 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 She is on a reduced dose because her age is greater than 80 and her weight is less than 60 kg. If the creatinine clearance drops below 30 she will need to be transitioned to Eliquis 2.5 mg twice daily. Creatinine clearance has ranged from 33.49-37.15 while on rehab. (11) Dementia: Status: Chronic Code(s): F03.90 - Unspecified dementia, unspecified severity, without behavioral disturbance, psychotic disturbance, mood disturbance, and anxiety Qualifiers: Dementia behavioral or psychological symptom: with anxiety Dementia severity: severe D ementia type: unspecified type Qualified Code(s): F03.C4 - Unspecified dementia, severe, with anxiety Plan: Family has been aware of cognitive deficits for some time. Pt not safe to live alone anymore. She will need 24/7 supervision. Family manages finances. Needs some one to manage her meds. (12) Essential hypertension: Status: Chronic Code(s): I10 - Essential (primary) hypertension Plan: Systolic blood pressure is mildly above goal of 130 but she is 89 years old with dementia and she will not likely benefit from strict control of her systolic blood pressures which may be elevated secondary to arterial sclerosis and decreased compressibility of her arteries. Will defer adjustment of antihypertensives to Dr. Fabian. She has a rare diastolic greater than 180. Antihypertensives at discharge from rehab include carvedilol 6.25 mg twice daily, losartan 100 mg daily and amlodipine 2.5 mg daily. The blood pressure for 48 hours prior to discharge has ranged from 125/50 to 159/73. Systolic is rarely been above 140. Diastolics are almost always less than 80. (13) HLD (hyperlipidemia): Status: Chronic Code(s): E78.5 - Hyperlipidemia, unspecified Qualifiers: Hyperlipidemia type: unspecified Qualified Code(s): E78.5 - Hyperlipidemia, unspecified Plan: Intolerant of statins secondary to myalgias/arthralgia. She has been placed on Zetia 10 mg daily and is tolerating without any adverse side effects. Would recheck a lipid panel and liver panel in 4 to 6 weeks. (14) Arthritis involving multiple sites: Status: Chronic Code(s): M12.9 - Arthropathy, unspecified Plan: Pain is worst in the R knee. We have been using a compounded arthritis cream to the R knee. Will DC on a Lidocaine patch and Voltaren gel. May benefit from an ortho consult and this was discussed with her dtr's. We have been bracing the R knee. Plan 1. Will discharge Sunday to [facility]. 2. Follow-up with Dr. Natali Fabian postdischarge from rehab for primary care 3. Recommend follow-up with orthopedics regarding right knee pain which is chronic s (more content not included)... [facility] 08-03-2025 Note [facility] Medical Records Department [address] [place] [id number] History Physical Exam 08/03/25 0839 MR#: [id number] Acct: [id number] Name: DEA MERRITT Rep #: [id number] : 1935 89 From: Nicole Mei DO PCP: Dr. Deepika Fabian MD Status:ADM IN Location: [address] HPI - General General Date of Admission: 08/02/25 Date of Service: 08/03/25 Chief Complaint: Post stroke debility HPI Narrative DEA MERRITT, is a 89 YO F with a PMH of ischemic CVA in the right middle cerebral artery distribution (2021) atrial fibrillation, chronic anticoagulation with Xarelto, hypertension, hyperlipidemia, GERD, osteoarthritis, chronic constipation and anxiety who presented to the emergency room at [facility] on 07/30/2025 complaining of slurred speech and difficulty walking. Stat noncontrast CT brain showed no acute abnormalities. There were periventricular white matter hypodensities likely representing severe chronic microvascular ischemia. CTA of the head and neck showed no hemodynamically significant stenoses in the head or neck. She was not a candidate for thrombolytics due to Xarelto. She was admitted to the hospitalist service for stroke workup. MRI of the brain done 07/31/2025 showed foci of restricted diffusion in the left external capsule and fairbanks radiata consistent with acute infarction. Transthoracic echocardiogram showed mild concentric left ventricular hypertrophy with an ejection fraction of 60%. The left atrium was severely enlarged and the right atrium was moderately enlarged. There was mild to moderate mitral valve insufficiency and moderate tricuspid insufficiency. The pulmonary artery systolic pressure was estimated at 39 which is consistent with mild pulmonary hypertension. There was aortic valve sclerosis with no stenosis. Labs showed a total cholesterol of 258 with an LDL of 177. She lists statins as an allergy due to myalgia. HDL was 61 and triglycerides were 111. TSH was normal. Troponins were unremarkable. LFTs in March 2025 were normal. She was seen by PT/OT/ST following admission and acute inpatient rehab was recommended. She was transferred to the acute inpatient rehab unit at [facility] on 08/02/2025 for 3 hours of therapy daily to restore function/independence at or near her level prior to the most recent stroke. All lab drawn this morning was personally reviewed. CBC is normal. Sodium is 140 and the potassium is 3.8. The BUN is 17 with a creatinine of 0.59 and a creatinine clearance of 37.07. Random blood sugar this morning was 141. The hemoglobin A1c is 5.7. Calcium phosphorus and magnesium are all normal. LFTs are normal. [facility] Medical History (Updated 08/04/25 @ 13:[address] Nicole Mei, DO) Foot pain, right Diarrhea Cellulitis of mid back region Abrasion of right upper back excluding scapular region Longstanding persistent atrial fibrillation Arthritis involving multiple sites Essential hypertension CVA (cerebral vascular accident) (02/15/22) Anxiety GERD (gastroesophageal reflux disease) HLD (hyperlipidemia) Home Medications ???Medication ???Instructions ???Recorded ???Last Taken ???Type fluorometholone 0.1 % eye 1 drp ophthalmic (eye) BID PRN Dry 03/02/22 08/02/25 History drops,suspension Eyes cyanocobalamin (vitamin B-12) 1,000 mcg PO DAILY vitamin 3 08/02/25 History 1,000 mcg tablet ferrous sulfate 325 mg (65 mg 325 mg PO QODAY supplement 3 08/01/25 History iron) tablet (Feosol) handicap placard #1 ea 01/23/24 Unknown Rx cholecalciferol (vitamin D3) 25 2,000 unit PO DAILY vitamin 08/02/25 History mcg (1,000 unit) tablet rivaroxaban 20 mg tablet (Xarelto) 20 mg PO QPM blood thinner #90 t abs 11/20/24 08/01/25 Rx carvedilol 3.125 mg tablet (Coreg) 3.125 mg PO BID bp #180 tabs 08/02/25 Rx losartan 100 mg tablet 100 mg PO DAILY blood pressure #90 06/29/25 08/02/25 Rx tabs ezetimibe 10 mg tablet 10 mg PO DAILY 08/02/25 08/02/25 R x hypercholesterolemia #0 tabs melatonin 10 mg disintegrating 10 mg PO QHS Sleep #0 tabs 5 08/02/25 Rx tablet sennosides 8.6 mg-docusate sodium 2 tab PO BID constipation #0 tab s 08/02/25 Unknown Rx 50 mg tablet (Stimulant Laxative Plus) Allergy/AdvReac Type Severity Reaction Status Date / Time clindamycin Allergy Other Verified 07/30/25 17:48 hyoscyamine Allergy Other Verified 07/30/25 17:48 Penicillins Allergy Hives Verified 07/30/25 17:48 Ffoleky-KGD-YxI Reductase Allergy Pain in Verified 07/31/25 15:41 Inhibitor (Wbqqebl-Isy-Txr joints Reductase Inhibitor) nitrofurantoin (From AdvReac Mild altered Verified 07/30/25 17:48 Macrobid) mental status glucosamine AdvReac Other Verified 07/30/25 17:48 Family History (Reviewed 08/03/25 @ (more content not included)... [facility] 08-02-2025 Note [facility] Medical Records Department [address] [place] [address] Discharge Summary 08/02/25 1135 MR#: [id number] Acct: [id number] Name: DEA MERRITT Rep #: [id number] : 1935 89 From: Irwin Emmanuel DO PCP: Dr. Deepika Fabian MD Status:ADM IN Location: [place] [id number] Providers Date of Admission: 07/31/25 Date of Discharge: 08/02/25 Primary Care Physician: Dr. Deepika Fabian MD Consultations 07/30/25 20:55 Consult: Tele-Neurology Routine Consulting Provider: [facility] Reason for Consult: Acute Ischemic Stroke/TIA EMERGENT Consult: No MD Notified: Yes Date Notified: 07/31/25 Time Notified: 02:40 Method of Notification: Answering Service Nursing Unit Staff Notify [facility] of Tele-Neurology Consult: Yes Reason For Visit: CVA R/O Diagnosis Discharge Diagnosis (1) CVA (cerebral vascular accident): Status: Acute Code(s): I63.9 - Cerebral infarction, unspecified Qualifiers: CVA mechanism: unspecified Qualified Code(s): I63.9 - Cerebral infarction, unspecified Plan 1. Acute ischemic stroke left external capsule and fairbanks radiata-PT and OT will continue to see the patient, it was not recommended that she be on an aspirin due to her use of Xarelto. Patient remains on Zetia at the request of her daughters due to concerns of intolerance of statins. #2 cognitive impairment/dementia #3 permanent atrial fibrillation-patient is on Xarelto and rate limiting agent #4 essential hypertension-patient is on carvedilol and losartan Total clinical time spent by myself addressing the patient's medical issues, reviewing all of her data, and collaborating with patient's care team: 35 minutes Medications at Discharge Home Medications fluorometholone 0.1 % eye drops,suspension 1 drp ophthalmic (eye) BID PRN Dry Eyes 03/02/22 cyanocobalamin (vitamin B-12) 1,000 mcg tablet 1,000 mcg PO DAILY vitamin 05/08/23 ferrous sulfate 325 mg (65 mg iron) tablet (Feosol) 325 mg PO QODAY supplement 05/08/23 handicap placard #1 ea 01/23/24 cholecalciferol (vitamin D3) 25 mcg (1,000 unit) tablet 2,000 unit PO DAILY vitamin 08/08/24 rivaroxaban 20 mg tablet (Xarelto) 20 mg PO QPM blood thinner #90 tabs 11/20/24 carvedilol 3.125 mg tablet (Coreg) 3.125 mg PO BID bp #180 tabs 01/28/25 losartan 100 mg tablet 100 mg PO DAILY blood pressure #90 tabs 06/29/25 ezetimibe 10 mg tablet 10 mg PO DAILY #0 tabs 08/02/25 melatonin 10 mg disintegrating tablet 10 mg PO QHS #0 tabs 08/02/25 sennosides 8.6 mg-docusate sodium 50 mg tablet (Stimulant Laxative Plus) 2 tab PO BID #0 tabs 08/02/25 Hospital Course Operations None Procedures 2-D Echocardiogram Summary of Care Provided Minutes Spent on Discharge: 31 Hospital Course: This 89-year-old white female was seen in the emergency room at [facility] with complaints of slurred speech, facial droop, and disorientation. Patient had a past history of a prior stroke involving the right MCA distribution, she has a history of persistent atrial fibrillation and is on Xarelto. A stroke alert was called from triage, patient was not a TNK candidate due to the fact that she is on chronic Xarelto. The emergency room physician talked with the stroke teleneurologist by phone, patient's NIH was 2, he recommended an MRI to rule out a new stroke or extension of prior past stroke. Labs obtained in the emergency room were remarkable only for troponin of [address] of the head and neck showed no hemodynamically significant stenosis in the head and neck, head CT showed severe global parenchymal atrophy and periventricular white matter hypodensity likely representing a severe chronic microvascular ischemia. No acute hemorrhage or infarction was noted. Patient was admitted to PCU, she was seen by teleneurology who recommended continuing her Xarelto and placing her on Zetia due to statin intolerance, PT and OT saw the patient, the following day she underwent an MRI which showed an acute ischemic stroke in the left internal capsule and fairbanks radiata. It was felt that the patient would benefit from short-term stay in the rehab unit at [facility] for rehab services, patient and patient's family agreed. On 08/02/2025, patient was seen and examined: On examination she appeared in good health and spirits, she does not appear to be in any distress. Vital signs as documented. Skin warm and dry and without overt rashes. Neck without JVD, thyroid appears normal, trachea is midline, neck is supple. Lungs clear, normal air movement was noted. Heart exam notable for irregular rhythm and rate, normal sounds and absence of murmurs, rubs or gallops. Abdomen unremarkable and without evidence of organomegaly, masses, or abdominal aortic enlargement, bowel sounds are present in all 4 quadrants, no abdominal tenderness was noted. Extremities nonedematous, (more content not included)... [facility] 06-29-2025 Progress note [facility] 03-31-2025 Evaluation note Diagnosis Onset Date Resolution Essential hypertension chronic Ju ne 2024 7:57am [...] Iron deficiency noneactive June 29, 2025 9:52am [facility] Work Phone: 1(406) 533-490904-23-2025 Evaluation note* Diagnosis Onset Date Resolution Status [...] 2025 7:57am Iron deficiency noneactive March 7:57am [facility] Work Phone: 1(290) 928-860404-23-2025 Evaluation note* Diagnosis Onset Date Resolution Status [...] Iron deficiency noneactive March 7:57am [facility] Work Phone: 1(169) 321-688502-06-2025 Evaluation note* Diagnosis Onset Date Resolution Status Admit Date Essential hypertension chronic Fe bruary 2024 9:50am Bowel dysfunction noneactive uar 2024 9:50am Urinary frequency noneactive uar 2024 9:50am Anxiety noneactive November 13, 2024 [...] Dizziness resolved January 28 1:49pm [facility] Work Phone: 1(188) 758-165706-28-2023 NoteHNO ID: [id number] Author: Grace Langston MA Service: ? Author Type: Tree Pruner Type: Progress Notes Filed: 04/05/2023 12:43 PM [...] Grace Langston MA April 04, 2023 1:29 [facility]06-28-2023 NotePatient Outreach (NETNAV) DEA MERRITT ([id number]) 1935 F Date Time Provider Department 04/04/23 GRACE LANGSTON During your visit today, we recorded the following information about you: Grace Langston MA 04/05/2023 12:43 PM Signed [facility] NAVIGATION OUTREACH Action/[facility] [employer] MESSAGE SENT ANNUAL MEDICARE WELLNESS ADVANCE DIRECTIVE DISCUSSION Patient Identified by Name and : NO Outreach Outcome/Action Unable to reach patient: Left message Bflyhart message sent Did you use a PCP [...] Comments: Mouth swelling and blurry vision. STATINS (RQHNKLV-QJP-JMN REDUCTAS*10/18/2009 5 - Intolerance Comments: Joint pain/swelling/elevated [...] 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 Encounter Status:Closed by GRACE LANSGTON on 04/05/23[facility]06[facility] History of Present illness Narrative* Grace Langston MA - 04/04/2023 1:29 PM EDT [facility] NAVIGATION OUTREACH Action/I [facility] [employer] MESSAGE SENT ANNUAL MEDICARE WELLNESS ADVANCE DIRECTIVE DISCUSSION Patient Identified by Name and : NO Outreach Outcome/Action Unable to reach patient: Left message Bflyhart message sent Did you use a PCP [...] 04, 2023 1:29 PM [facility] Moffett [facility] February 13, 2023 2:07pm Note Date/Time February 13, 2023 2:07pm [facility] Medical Records Department [address] [place] [address] Discharge Summary 02/13/23 1405 MR#: [id number] Acct: [id number] Name: DEA MERRITT Rep #:[id number] : 1935 87 From: Jody Moffett MD PCP: Dr. Deepika Fabian MD Status:ADM IN Location: [place] [address] Providers Date of Admission: 02/08/23 Date of [...] drp ophthalmic (eye) BID PRN Dry Eyes 05/26/22 budesonide 3 mg capsule,delayed,extended release 6 mg [...] MCA CVA who presented to [facility] 02/08/2023 with worsening diarrhea and [...] about appointment date/time please contact his office (ph.[phone]) -He was indicated that you are no [...] an outpatient basis with your PCP or shirt folder if deemed appropriate -Please call your primary [...] about appointment date/time please contact his office (ph.[phone]) -He was indicated that you are no [...] an outpatient basis with your PCP or shirt folder if deemed appropriate -Please call your primary [...] in before D/C Order can be placed): [facility] Charges/Coding Visit Charges Inpatient E&M: 45993 Disch Hosp >30min 02/13/23 1407 <Electronically signed by Jody Moffett MD> Cosigner Signature (if applicable): CC: Dr. Deepika Fabian MD; Dr. Jody Moffett MD~ Signed [facility] Work Phone: 1([phone]) 243-247005-09-[address] Moffett [facility] February 13, 2023 2:05pm Note Date/Time February 13, 2023 1:38pm [facility] Medical Records Department [address] [place] [address] Transfer to [facility] MR#: [id number] Acct: [id number] Name: DEA MERRITT Rep #:[id number] : 1935 87 From: Jody Moffett MD PCP: Dr. Deepika Fabian MD Status:ADM IN Certification of patient admission REQUIRED AT TIME OF ADMISSION. I CERTIFY THAT POST-HOSPITAL F SERVICES ARE REQUIRED TO BE GIVEN ON AN IN-PATIENT BASIS BECAUSE OF THE ABOVE NAMED PATIENT'S NEED FOR HALF-WAY CARE ON A CONTINUING BASIS FOR THE CONDITION(S) FOR WHICH HE/SHE WAS RECEIVING IN-PATIENT HOSPITAL SERVICES PRIOR TO HIS/HER TRANSFER TO THE [facility]. 02/13/23 1405<Electronically signed by Jody Moffett MD> [...] MCA CVA who presented to [facility] 02/08/2023 with worsening diarrhea and [...] about appointment date/time please contact his office (ph.[phone]) -He was indicated that you are no [...] an outpatient basis with your PCP or shirt folder if deemed appropriate -Please call your primary care provider's office upon discharge to schedule a hospital follow up within 1 week. -For any concerning signs or symptoms please call 911 or proceed to the nearest emergency department Allergies/Procedures Done in Hospital Allergies clindamycin Allergy (Verified 02/08/23 10:32) Other hyoscyamine Allergy (Verified 02/08/23 10:32) Other Penicillins Allergy (Verified 02/08/23 10:32) Hives Txsiqll-JNY-DkH Reductase Inhibitor [Rdivzbz-Gvt-Heb Reductase Inhibitor] Allergy (Verified 02/08/23 10:32) Pain [...] about appointment date/time please contact his office (ph.[phone]) -He was indicated that you are no [...] an outpatient basis with your PCP or shirt folder if deemed appropriate -Please call your primary [...] in before D/C Order can be placed): [facility] Facility 02/13/23 1405 <Electronically signed by Jody Moffett MD> Cosigner Signature (if applicable): CC: MOON Rod; Dr. Deepika Fabian MD; Dr. Himanshu Reynolds MD ~ [facility] Work Phone: [phone]) 775-790705-09-2023 Progress note Author Vamsi Navarronasir [facility] February 13, 2023 7:13am Note Date/Time February 13, 2023 7:11am [facility] Medical Records Department [address] [place] [address] Progress Note 02/13/23705 MR#: [id number] Acct: [id number] Name: DEA MERRITT Rep #:[id number] : 1935 87 From: Vamsi Segal DPM PCP: Dr. Deepika Fabian MD Status:ADM IN Location: [facility] [id number] Subjective Subjective Patient was seen this morning [...] Intake and Output for Last 24 Hours 02/11/23 02/12/23 02/13/23 23:59 23:59 23:59 Intake Total 720 / [...] outpatient in 1 week, sooner if needed. 02/13/23712 <Electronically signed by Vamsi Segal DPM> Vamsi Segal DPM Cosigner Signature (if applicable): CC: ~ Signed [facility] Work Phone: 1([phone]) 153-764405-08-[address] Moffett [facility] February 12, 2023 3:22pm Note Date/Time February 12, 2023 11:01a [facility] Medical Records Department [address] [place] [address] Progress Note - Hospitalist 02/12/23 1100 MR#: [id number] Acct: [id number] Name: DEA MERRITT Rep #:[id number] : 1935 87 From: Jody Moffett MD PCP: Dr. Deepika Fabian MD Status:ADM IN Location: [place] [address] Reason for Visit Reason for Visit: Diagnoses [...] 72.9 H, Lymph % (Auto) 17.4 L, Rains % (Auto) 7.8, Eos % (Auto) 1.0, [...] documentation, 30minutes Charges/Coding Visit Charges Inpatient E&M: 47801 Subs Hosp L2 02/12/23 1522 <Electronically signed by Jody Moffett MD> Cosigner Signature (if applicable): CC: ~ Signed [facility] Work Phone: 1([phone]) 423-722105-08-[address] Price [facility] February 12, 2023 4:05am Note Date/Time February 12, 2023 4:05am [facility] Medical Records Department [address] [place] [address] Progress Note - Hospitalist 02/12/235 MR#: [id number] Acct: [id number] Name: DEA MERRITT Rep #:[id number] : 1935 87 From: Rebecca Price MD PCP: Dr. Deepika Fabian MD Status:ADM IN Location: [place] [address] Hospitalist Note Recurrent atrial fibrillation with RVR, will dose with IV cardizem x 1 now, was effective prior with occurrence. 02/12/23 0405 <Electronically signed by Rebecca Price MD> Cosigner Signature (if applicable): CC: ~ Signed [facility] Work Phone: 1(427) 798-206405-07-[address] Reynolds [facility] February 11, 2023 8:57am Note Date/Time February 11, 2023 7:37am [facility] Medical Records Department [address] [place] [address] Progress Note - Hospitalist 02/11/23 0735 MR#: [id number] Acct: [id number] Name: DEA MERRITT Rep #:[id number] : 1935 87 From: Himanshu Reynolds MD PCP: Dr. Deepika Fabian MD Status:ADM IN Location: [place] [address] Reason for Visit Reason for Visit: Diagnoses Hyperlipidemia, unspecified (02/08/23) Dehydration (02/08/23) Hypokalemia (02/08/23) Essential (primary) hypertension (02/08/23) Pain in right foot (02/08/23) Diarrhea, unspecified (02/08/23) Difficulty in walking, not elsewhere classified (02/08/23) Subjective Subjective Patient went into A-fib with RVR with initiation of Cardizem. Patient now agreeable to being discharged to a snf facility consult has subsequently been placed Case [...] % (Auto) 66.9, Lymph % (Auto) 22.6, Rains % (Auto) 8.6, Eos %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
[2025-08-18 07:30] LABS: Hematocrit 40.6 % (37-47); Hemoglobin 13.2 g/dL (12.0-15.0); Immature Granulocytes Count 0.020 X10^3/uL (0.0-0.0); Mean Corp Hgb Conc 32.5 g/dL (32-36); Mean Corpuscular Volume 96.0 fL (81-99); Mean Platelet Vol. 11.1 fl (6.2-12.0); NRBC Flagged by Analyzer 0 % (0-5); Platelet Count 272 K/mm3 (150-450); RBC Distribution Width CV 12.2 % (11.6-14.6); RBC Distribution Width SD 42.2 fl (35.1-43.9); Red Blood Count 4.23 M/mm3 (4.2-5.4); White Blood Count 6.2 K/mm3 (4.4-11.0)
[2025-08-18 08:29] LABS: AST(SGOT) 20 U/L (<=31); Alanine Aminotransfer ALT/SGPT 12 U/L (<=34); Albumin, Serum 3.6 g/dL (3.4-4.8); Alkaline Phosphatase 64 U/L (35-104); Anion Gap 12 (5-15); BUN 13 mg/dL (4-19); BUN/Creat Ratio 22.5 RATIO (10-20); Calcium,Total 9.3 mg/dL (7.6-11.0); Carbon Dioxide 21.6 mmol/L (21.0-32.0); Chloride 108 mmol/L (98-108); Globulin 2.5 g/dL (2.2-4.2); Glucose 86 mg/dL (70-99); Potassium 3.4 mmol/L (3.3-5.1); Vitamin B12 1480 pg/mL (180-914); Vitamin D,25 Hydroxy 29.2 ng/mL (30-100)
== END ==
LOC: OLS.WHLTSB 05:00
PROVIDERS: PCP Internal Medicine; Visit Provider Internal Medicine
DX: E87.6 Hypokalemia (principal); M25.571 Pain in right ankle and joints of right foot; M62.81 Muscle weakness (generalized); E55.9 Vitamin D deficiency, unspecified
CPT/HCPCS: 36415; 80053; 82306; 82607; 85025

== ENCOUNTER → 2025-08-20 07:00 | Outpatient (REF) | payer MEDICARE, OTHER, SELFPAY | LOC: OLS.WHLTSB 07:00 | PROVIDERS: PCP Internal Medicine; Referring Provider Internal Medicine; Visit Provider Internal Medicine | DX: K52.9 Noninfective gastroenteritis and colitis, unspecified (principal) | CPT/HCPCS: 87493 ==

== ENCOUNTER → 2025-09-15 | Outpatient (REF) | payer MEDICARE, OTHER, SELFPAY ==
[2025-09-15 08:59] LABS: Cholesterol 294 mg/dL (<=200); Low Density Lipoprotein Calc. 204 mg/dL; Triglycerides 126 mg/dL; Very Low Density Lipoprotein 25 mg/dL (5-40); cholesterol:hdl ratio screen 4.32
== END ==
LOC: OLS.WHLTSB 05:00
PROVIDERS: PCP Internal Medicine; Visit Provider Nurse Practitioner Adult Health
DX: E78.5 Hyperlipidemia, unspecified (principal)
CPT/HCPCS: 36415; 80061